=== PATIENT | male | born 1960 | race Caucasian/White ===

== ENCOUNTER 2019-12-08 11:10 | Outpatient (CLI) | payer BC, SELFPAY ==
[2019-12-08 11:33] LABS: Basophils Percent Auto 0.7 % (0.2-1.2); Eosinophils Absolute Auto 0.3 K/mm3 (0-0.3); Eosinophils Percent Auto 6.5 % (0-4.4); Hematocrit 45.1 % (42.0-52.0); Hemoglobin 14.1 g/dL (14.0-18.0); Immature Granulocyte Absolute 0.01 K/mm3 (0.00-0.031); Immature Granulocyte Percent A 0.2 % (0-0.5); Lymphocytes Percent Auto 23.9 % (18.3-44.2); Mean Corpuscular HGB Conc 31.3 g/dl (32-36); Mean Corpuscular Hemoglobin 30.1 pg (26-34); Mean Corpuscular Volume 96.2 fl (80-100); Mean Platelet Volume 9.9 fl (7.4-10.4); Monocytes Absolute Auto 0.4 K/mm3 (0.1-0.6); Monocytes Percent Auto 9.3 % (2.6-8.5); Neutrophils Absolute Auto 2.7 K/mm3 (1.3-6.7); Neutrophils Percent Auto 59.4 % (45.5-73.1); Platelet Count Result 164 k/mm3 (150-375); Red Blood Count 4.69 M/mm3 (4.6-6.20); Red Cell Distribution Width 13.2 % (11.5-14.5); White Blood Count 4.6 K/mm3 (4.5-10.0)
[2019-12-08 11:48] LABS: Alanine Aminotransferase 20 U/L (4-50); Alkaline Phosphatase 111 U/L (38-126); Aspartate Amino Transferase 29 U/L (17-59); Bilirubin,Total 0.4 mg/dL (0.2-1.3); Blood Urea Nitrogen 12 mg/dL (9-20); Calcium 8.5 mg/dL (8.4-10.2); Carbon Dioxide 32 mmol/L (22-30); Chloride 106 mmol/L (98-107); Cholesterol 117 mg/dL (0-200); Estimated Glomerular Filt Rate > 60; Glucose 79 mg/dL (75-110); HDL Direct 38 mg/dL; Potassium 3.9 mmol/L (3.4-5.0); Sodium 144 mmol/L (137-145); Triglycerides 60 mg/dL (<150)
[2019-12-08 11:59] LABS: LDL Cholesterol Direct 61 mg/dL
[2019-12-12 21:15] LABS: Red Blood Cell Folate 546 ng/mL RBC (>280)
== END 2019-12-08 11:11 | disposition home or self-care (01) ==
PROVIDERS: PCP Internal Medicine; Visit Provider Internal Medicine
DX: E53.8 Deficiency of other specified B group vitamins (principal); Z79.899 Other long term (current) drug therapy
CPT/HCPCS: 36415; 80048; 80061; 80076; 82607; 82747; 85025

== ENCOUNTER 2019-12-19 12:39 | Outpatient (CLI) | payer BC, SELFPAY ==
--- NOTE | ~2019-12-19 | CT_ITS ---
EXAMINATION: CTA chest PE protocol EXAM DATE: 12/19/2019 13:11 INDICATION: Hemoptysis. TECHNIQUE: Spiral CTA of the chest (pulmonary arteries) was performed with 100 cc Omnipaque 350 intr avenous contrast injection. Images were acquired during the pulmonary arterial phase. Coronal maxi mum intensity projection 3D-reconstructions were created by the technologist on dedicated workstation . Axial, coronal and sagittal reformatted images were reviewed. The dose-length product (DLP) for t his examination was 358.26 mGy-cm. The exposure was tailored according to patient size (auto mA exp osure control), and iterative reconstruction (ASIR) was used as additional dose reduction technique. Comparison is made to prior examination from 04/25/2019. FINDINGS: Development of right infrahilar, right middle lobe mass measuring 2.1 x 3.1 cm, occluding the right middle lobe bronchi. Right middle lobe is still aerated. Most likely primary lung cancer. R ecommend pulmonary consult. There is mild to moderate emphysema. No thoracic aortic dissection. Ther e are no pleural or pericardial effusions. Tracheobronchial tree is patent. There is no mediastin al, hilar or axillary lymphadenopathy. There is no pneumothorax. Heart normal in size. There is mild coronary arterial calcification, arterial sclerosis. There is gastric bypass. There are spleni c and liver granulomas. There is right renal fluid density lesion likely cyst measuring 3 cm. There is mild thoracic spondylosis without osteoblastic or osteolytic lesions identified. Spine stimulator device, leads at the midthoracic level. IMPRESSION: 1. Right infrahilar right middle lobe mass, most likely primary lung cancer. Recommend pulmonary co nsult. 2. Mild to moderate emphysema. 3. No pulmonary emboli. STAT hold and call. I confirmed with Fany that patient is in waiting room, and who is notifying ord ering doctor of results. Patient will be given instructions at that time. Reviewed, dictated and finalized at location A. IMPRESSION: 1. Right infrahilar right middle lobe mass, most likely primary lung cancer. Recommend pulmonary consult. 2. Mild to moderate emphysema. 3. No pulmonary emboli. STAT hold and call. I confirmed with Fany that patient is in waiting room, an d who is notifying ordering doctor of results. Patient will be given instructio ns at that time.
== END 2019-12-19 12:40 | disposition home or self-care (01) ==
LOC: ANHIMG 12:46
PROVIDERS: PCP Internal Medicine; Visit Provider Internal Medicine
DX: R04.2 Hemoptysis (principal); J43.9 Emphysema, unspecified; R91.8 Other nonspecific abnormal finding of lung field
CPT/HCPCS: 71275; Q9967

== ENCOUNTER 2019-12-25 13:11 | Outpatient (CLI) | payer BC, SELFPAY ==
[2019-12-25 13:21] LABS: Hematocrit 47.7 % (42.0-52.0); Hemoglobin 15.1 g/dL (14.0-18.0); Mean Corpuscular HGB Conc 31.7 g/dl (32-36); Mean Corpuscular Hemoglobin 30.2 pg (26-34); Mean Corpuscular Volume 95.4 fl (80-100); Mean Platelet Volume 9.9 fl (7.4-10.4); Platelet Count Result 165 k/mm3 (150-375); Red Cell Distribution Width 13.3 % (11.5-14.5); White Blood Count 7.1 K/mm3 (4.5-10.0)
[2019-12-25 16:33] LABS: Iron 59 ug/dL (49-181)
[2019-12-25 16:42] LABS: Percent Iron Saturation 17 % (20-50)
== END 2019-12-25 13:12 | disposition home or self-care (01) ==
PROVIDERS: PCP Internal Medicine; Visit Provider Internal Medicine Hematology & Oncology
DX: E61.1 Iron deficiency (principal)
CPT/HCPCS: 36415; 82728; 83540; 83550; 85027

== ENCOUNTER 2019-12-26 13:21 | Outpatient (CLI) | payer BC, SELFPAY ==
--- NOTE | ~2019-12-26 | PE_ITS ---
EXAMINATION: PET skull to mid thigh DATE: 12/26/2019 15:50 INDICATION: Malignant neoplasm of lung. TECHNIQUE: Blood glucose level was 84 mg/dL. 10.076 mCi of 18-fluorodeoxyglucose (18-FDG) was adminis tered i.v. Low dose computed tomography (CT) images were acquired from the base of the brain to the p roximal thighs for attenuation correction and anatomic localization. Automated exposure control was e mployed. Dose-length product (DLP) was 634 mGy-cm. Positron emission tomography (PET) images were acq uired in the same distribution. COMPARISON: Chest CT 12/19/2019, left hip CT 10/12/2019 FINDINGS: Head/neck: There is increased activity in the oral cavity, oropharynx, and glottis without CT correla te, likely physiologic. There are no pathologically enlarged lymph nodes. Chest: There is mild emphysema. A calcified left lung nodule and calcified left hilar and mediastinal lymph nodes are consistent with old granulomatous disease. There are areas of mild scarring bilatera lly with subpleural bands. There is mild atelectasis bilaterally. In the right middle lobe, there is a 2.2 cm nodule with maximal SUV of 9.2. No pleural effusion. The heart size is normal. No pericardia l effusion. There are coronary artery calcifications. There are no pathologically enlarged lymph node s. Abdomen/pelvis/proximal thighs: Calcifications in the liver and spleen are consistent with old granul omatous disease. There are changes of cholecystectomy. There are surgical changes of the stomach. The pancreas, adrenal glands, and left kidney are normal. There is a 3.0 cm cyst in right kidney. There are no dilated loops of bowel. The prostate is mildly enlarged. There are no pathologically enlarged lymph nodes. There is no free intraperitoneal fluid. There are changes of anterior and posterior fusi on procedures in lumbar spine. There is no osseous malignancy. There is a chronic subcutaneous hemato ma in the left buttock measuring 9.2 x 3.6 cm with peripheral increased activity, consistent with inf lammation, decreased from 12.8 x 5.5 cm on 10/13/2019. IMPRESSION: 1. 2.2 cm nodule with maximum SUV of 9.2 in right lung middle lobe, consistent with primary bronchoge carolann carcinoma. Reviewed, dictated and finalized at location A. IMPRESSION: 1. 2.2 cm nodule with maximum SUV of 9.2 in right lung middle lobe, consistent with primary bronchogenic carcinoma.
[2019-12-26 14:13] LABS: Glucose Point of Care 84 (65-105)
== END 2019-12-26 13:22 | disposition home or self-care (01) ==
PROVIDERS: PCP Internal Medicine; Visit Provider Internal Medicine
DX: C34.90 Malignant neoplasm of unspecified part of unspecified bronchus or lung (principal)
CPT/HCPCS: 78815; A9552

== ENCOUNTER 2019-12-30 09:45 | Outpatient (CLI) | payer BC, SELFPAY | END 2019-12-30 09:46 | disposition home or self-care (01) | PROVIDERS: PCP Internal Medicine; Visit Provider Internal Medicine Critical Care Medicine | DX: R04.2 Hemoptysis (principal) | CPT/HCPCS: 87015; 87102; 87106; 87116; 87205; 87206 ==

== ENCOUNTER 2019-12-31 10:41 | Outpatient (CLI) | payer BC, SELFPAY | END 2019-12-31 10:42 | disposition home or self-care (01) | PROVIDERS: PCP Internal Medicine; Visit Provider Internal Medicine Critical Care Medicine | DX: R04.2 Hemoptysis (principal) | CPT/HCPCS: 87015; 87116; 87206 ==

== ENCOUNTER 2020-01-02 14:02 | Outpatient (RCR) | payer BC, SELFPAY | END 2020-04-01 23:59 | disposition home or self-care (01) | LOC: ANHLAB 14:02 | PROVIDERS: PCP Internal Medicine; Visit Provider Internal Medicine Critical Care Medicine | DX: J44.9 Chronic obstructive pulmonary disease, unspecified (principal) | CPT/HCPCS: 87070; 87205 ==

== ENCOUNTER 2020-01-22 06:51 | Outpatient (CLI) | payer BC, SELFPAY ==
--- NOTE | 2020-01-22 | EST_ITS ---
Patient Info Name: Kiran Smith Age: 59 years : 1960 Gender: Male Ht: 68 in Wt: 180 lbs BSA: 2.00 m2 Exam Date: 01/22/2020 8:26 AM Exam Location: [facility] Stress Patient Status: Outpatient Admit Date: 01/22/2020 Staff Ordering Physician: Vickey Hernandez MD Attending Provider: Vickey Hernandez MD Exercise Technologist: Lakshmi Escalera RDCS Exercise Physician: Victor Manuel Mackay DO Exam Type: CA stress demarcus w NM Study Info Indications Z01.818 - Encounter for other preprocedural examination R06.02 - Shortness of breath A regadenoson stress test was performed. Summary 1. 1. Negative Lexiscan stress test for ischemic ST changes by ECG criteria. 2. 2. Stable hemodynamics throughout the test. 3. 3. Nuclear scan to follow and will be reported separately. Please correlate with it. 4. 4. Patient informed of the above results. Protocol: Lexiscan Stress ECG Details Stage: REST Duration (min): 4 min : 27 sec HR (bpm): 56 SBP (mmHg): 108 DBP (mmHg): 69 Stage: REST Duration (min): 9 min : 7 sec HR (bpm): 56 SBP (mmHg): 108 DBP (mmHg): 69 Stage: STAGE 1 Duration (min): 1 min : 0 sec HR (bpm): 66 SBP (mmHg): 120 DBP (mmHg): 79 Stage: RECOVERY Duration (min): 1 min : 0 sec HR (bpm): 84 SBP (mmHg): 114 DBP (mmHg): 65 Stage: RECOVERY Duration (min): 2 min : 0 sec HR (bpm): 82 SBP (mmHg): 114 DBP (mmHg): 65 Stage: RECOVERY Duration (min): 3 min : 0 sec HR (bpm): 75 SBP (mmHg): 119 DBP (mmHg): 70 Stage: RECOVERY Duration (min): 3 min : 4 sec HR (bpm): 74 SBP (mmHg): 119 DBP (mmHg): 70 Rest HR: 56 bpm Peak HR: 87 bpm Rest Sys BP: 108 mmHg Peak Sys BP: 120 mmHg Max Pred HR: 160 bpm % Max Pred HR: 54 % Target HR: 136 bpm Max RPP: 10,440 bpm*mmHg Termination Reason: Completed protocol Cardiac Symptoms: Shortness of breath Total Time: 1 min : 0 sec Rest [place] BP: 69 mmHg Peak [place] BP: 79 mmHg Total Dose: 0.4 mg Resting ECG Sinus bradycardia. Stress ECG No ST changes. Arrhythmias None. Report Signatures
--- NOTE | ~2020-01-22 | NM_ITS ---
EXAMINATION: NM demarcus stress w perfusion DATE: 01/22/2020 09:39 INDICATION: COPD presenting with shortness of breath. TECHNIQUE: Rest images were obtained following intravenous administration of 10.56 mCi Tc99m tetrofos min (Myoview). The patient was infused intravenously with Lexiscan (Regadenoson). Then, 21.3 mCi Tc99 m tetrofosmin (Myoview) was administered intravenously, and stress images were obtained. Data was rec onstructed into short axis and horizontal and vertical long axis SPECT images. Gated SPECT images wer e also obtained. COMPARISON: None. FINDINGS: There is no definite reversible or fixed perfusion abnormality to suggest ischemia or infar ction. There is normal left ventricular chamber size, wall motion and ejection fraction. Left ventr icular ejection fraction measures 68%. IMPRESSION: 1. Normal myocardial perfusion at rest and during stress. 2. Left ventricular ejection fraction measuring 68%. Reviewed, dictated and finalized at location A.
== END 2020-01-22 06:52 | disposition home or self-care (01) ==
PROVIDERS: PCP Internal Medicine; Visit Provider Internal Medicine
DX: Z01.818 Encounter for other preprocedural examination (principal); R06.02 Shortness of breath
CPT/HCPCS: 78452; 93017; A9502; J2785

== ENCOUNTER 2020-02-20 14:08 | Outpatient (CLI) | payer BC, SELFPAY ==
[2020-02-20 14:22] LABS: Basophils Absolute Auto 0.1 K/mm3 (0.0-0.1); Basophils Percent Auto 0.7 % (0.2-1.2); Eosinophils Absolute Auto 0.3 K/mm3 (0-0.3); Eosinophils Percent Auto 4.5 % (0-4.4); Hematocrit 41.7 % (42.0-52.0); Immature Granulocyte Absolute 0.02 K/mm3 (0.00-0.031); Immature Granulocyte Percent A 0.3 % (0-0.5); Lymphocytes Absolute Auto 1.09 K/mm3 (0.9-3.2); Lymphocytes Percent Auto 15.5 % (18.3-44.2); Mean Corpuscular HGB Conc 31.2 g/dl (32-36); Mean Corpuscular Hemoglobin 28.4 pg (26-34); Mean Corpuscular Volume 91.2 fl (80-100); Mean Platelet Volume 9.4 fl (7.4-10.4); Monocytes Absolute Auto 0.8 K/mm3 (0.1-0.6); Monocytes Percent Auto 11.2 % (2.6-8.5); Neutrophils Absolute Auto 4.8 K/mm3 (1.3-6.7); Neutrophils Percent Auto 67.8 % (45.5-73.1); Platelet Count Result 296 k/mm3 (150-375); Red Blood Count 4.57 M/mm3 (4.6-6.20); Red Cell Distribution Width 13.2 % (11.5-14.5); White Blood Count 7.1 K/mm3 (4.5-10.0)
[2020-02-20 14:26] LABS: Blood Urea Nitrogen 13 mg/dL (8-26); Carbon Dioxide 28 mmol/L (22-30); Chloride 102 mmol/L (98-109); Estimated Glomerular Filt Rate > 60; Glucose 96 mg/dL (70-105); Potassium 3.8 mmol/L (3.5-4.9); Sodium 140 mmol/L (138-146)
[2020-02-20 16:31] LABS: Alanine Aminotransferase 12 U/L (4-50); Alkaline Phosphatase 122 U/L (38-126); Aspartate Amino Transferase 29 U/L (17-59); Bilirubin,Total 0.6 mg/dL (0.2-1.3); Blood Urea Nitrogen 15 mg/dL (9-20); Calcium 9.1 mg/dL (8.4-10.2); Carbon Dioxide 30 mmol/L (22-30); Chloride 101 mmol/L (98-107); Estimated Glomerular Filt Rate > 60; Glucose 94 mg/dL (75-110); Potassium 4.1 mmol/L (3.4-5.0); Sodium 137 mmol/L (137-145)
== END 2020-02-20 14:09 | disposition home or self-care (01) ==
LOC: ANHLAB 14:09
PROVIDERS: PCP Internal Medicine; Visit Provider Internal Medicine Hematology & Oncology
DX: E61.1 Iron deficiency (principal)
CPT/HCPCS: 36415; 80048; 80053; 85025

== ENCOUNTER 2020-04-22 10:15 | Outpatient (CLI) | payer BC, MEDICAID, SELFPAY ==
[2020-04-22 10:59] LABS: Basophils Absolute Auto 0.1 K/mm3 (0.0-0.1); Basophils Percent Auto 0.7 % (0.2-1.2); Eosinophils Absolute Auto 0.5 K/mm3 (0-0.3); Eosinophils Percent Auto 6.7 % (0-4.4); Hematocrit 41.4 % (42.0-52.0); Hemoglobin 13.2 g/dL (14.0-18.0); Immature Granulocyte Absolute 0.02 K/mm3 (0.00-0.031); Immature Granulocyte Percent A 0.3 % (0-0.5); Lymphocytes Absolute Auto 1.08 K/mm3 (0.9-3.2); Mean Corpuscular HGB Conc 31.9 g/dl (32-36); Mean Corpuscular Volume 87.7 fl (80-100); Mean Platelet Volume 10.2 fl (7.4-10.4); Monocytes Absolute Auto 0.5 K/mm3 (0.1-0.6); Neutrophils Absolute Auto 4.6 K/mm3 (1.3-6.7); Neutrophils Percent Auto 68.3 % (45.5-73.1); Platelet Count Result 196 k/mm3 (150-375); Red Blood Count 4.72 M/mm3 (4.6-6.20); Red Cell Distribution Width 18.1 % (11.5-14.5); White Blood Count 6.8 K/mm3 (4.5-10.0)
[2020-04-22 11:18] LABS: Alanine Aminotransferase 20 U/L (4-50); Albumin Level 3.7 g/dL (3.5-5.1); Alkaline Phosphatase 127 U/L (38-126); Aspartate Amino Transferase 30 U/L (17-59); Bilirubin,Total 0.3 mg/dL (0.2-1.3); Blood Urea Nitrogen 12 mg/dL (9-20); Calcium 8.6 mg/dL (8.4-10.2); Carbon Dioxide 28 mmol/L (22-30); Chloride 104 mmol/L (98-107); Cholesterol 126 mg/dL (0-200); Estimated Glomerular Filt Rate > 60; Glucose 94 mg/dL (75-110); HDL Direct 38 mg/dL; Potassium 3.8 mmol/L (3.4-5.0); Sodium 139 mmol/L (137-145); Triglycerides 84 mg/dL (<150)
[2020-04-22 11:29] LABS: LDL Cholesterol Direct 57 mg/dL
[2020-04-22 11:53] LABS: Free T4 Free Thyroxine 0.69 ng/mL (0.78-2.19)
== END 2020-04-22 10:16 | disposition home or self-care (01) ==
PROVIDERS: PCP Internal Medicine; Visit Provider Internal Medicine
DX: Z79.899 Other long term (current) drug therapy (principal); E78.2 Mixed hyperlipidemia
CPT/HCPCS: 36415; 80053; 80061; 84439; 84443; 85025

== ENCOUNTER 2020-04-23 10:09 | Outpatient (CLI) | payer BC, MEDICAID, SELFPAY ==
--- NOTE | ~2020-04-23 | CT_ITS ---
EXAMINATION: CT chest w con DATE: 04/23/2020 11:09 INDICATION: Non-small cell lung cancer TECHNIQUE: Transaxial computed tomographic images of the chest were obtained after the administration of 75 cc of Omnipaque 350 intravenous contrast. The dose-length product (DLP) was 201.49 mGy-cm. Ite rative reconstruction was used. COMPARISON: 12/26/2019, 12/19/2019 FINDINGS: There has been interval resection of the previously described right middle lobe nodule. The re is mild emphysema. No new or suspicious pulmonary nodule is identified. Calcified pulmonary nodule s and calcified bilateral hilar lymph nodes are consistent with old granulomatous disease. A small ri ght pleural effusion is present. There is no pneumothorax. The heart size is normal. No pathologicall y enlarged thoracic lymph nodes are identified. Surgical changes in the stomach are likely related to gastric bypass. There is a partially imaged 2.5 cm cyst of the right kidney upper pole. Punctate aliza cifications in an otherwise normal spleen likely represent healed granulomatous disease. Calcified co ronary artery atherosclerosis is noted. Neurostimulator leads end in the central spinal canal of the midthoracic spine. IMPRESSION: 1. Changes of interval right middle lobe mass resection without new or suspicious pulmonary nodule id entified. Reviewed, dictated and finalized at location A. IMPRESSION: 1. Changes of interval right middle lobe mass resection without new or suspicio us pulmonary nodule identified.
== END 2020-04-23 10:10 | disposition home or self-care (01) ==
PROVIDERS: PCP Internal Medicine; Visit Provider Internal Medicine Hematology & Oncology
DX: C34.91 Malignant neoplasm of unspecified part of right bronchus or lung (principal)
CPT/HCPCS: 71260; Q9967

== ENCOUNTER 2020-04-30 11:12 | Outpatient (CLI) | payer BC, MEDICAID, SELFPAY ==
[2020-04-30 11:32] LABS: Basophils Absolute Auto 0.1 K/mm3 (0.0-0.1); Eosinophils Absolute Auto 0.3 K/mm3 (0-0.3); Eosinophils Percent Auto 4.9 % (0-4.4); Hematocrit 45.5 % (42.0-52.0); Hemoglobin 14.3 g/dL (14.0-18.0); Immature Granulocyte Absolute 0.03 K/mm3 (0.00-0.031); Immature Granulocyte Percent A 0.5 % (0-0.5); Lymphocytes Absolute Auto 1.35 K/mm3 (0.9-3.2); Lymphocytes Percent Auto 21.5 % (18.3-44.2); Mean Corpuscular HGB Conc 31.4 g/dl (32-36); Mean Corpuscular Hemoglobin 27.8 pg (26-34); Mean Corpuscular Volume 88.3 fl (80-100); Mean Platelet Volume 9.6 fl (7.4-10.4); Monocytes Absolute Auto 0.5 K/mm3 (0.1-0.6); Monocytes Percent Auto 8.3 % (2.6-8.5); Neutrophils Percent Auto 63.8 % (45.5-73.1); Platelet Count Result 203 k/mm3 (150-375); Red Blood Count 5.15 M/mm3 (4.6-6.20); Red Cell Distribution Width 19.1 % (11.5-14.5); White Blood Count 6.3 K/mm3 (4.5-10.0)
[2020-04-30 11:35] LABS: Blood Urea Nitrogen 15 mg/dL (8-26); Carbon Dioxide 28 mmol/L (22-30); Chloride 102 mmol/L (98-109); Estimated Glomerular Filt Rate > 60; Glucose 92 mg/dL (70-105); Potassium 4.2 mmol/L (3.5-4.9); Sodium 144 mmol/L (138-146)
== END 2020-04-30 11:13 | disposition home or self-care (01) ==
PROVIDERS: PCP Internal Medicine; Visit Provider Internal Medicine Hematology & Oncology
DX: C34.91 Malignant neoplasm of unspecified part of right bronchus or lung (principal); R53.83 Other fatigue
CPT/HCPCS: 36415; 80048; 84443; 85025

== ENCOUNTER 2020-05-09 11:22 | Outpatient (CLI) | payer BC, MEDICAID, SELFPAY ==
--- NOTE | ~2020-05-09 | MM_ITS ---
EXAMINATION: MM diagnostic mammo unilat RT HISTORY: Right breast pain. History of lung cancer. TECHNIQUE: Additional 3-D tomosynthesis images of the right breast were performed and synthetic 2-D i mages were generated. Comparison left MLO view performed. CAD analysis was submitted and interpreted. COMPARISON: None BREAST PARENCHYMAL COMPOSITION: Breast composed of scattered areas of fibroglandular density. FINDINGS: There is bilateral symmetric gynecomastia. No suspicious masses, calcifications or architec tural distortion to suggest malignancy. IMPRESSION: 1. No mammographic evidence for malignancy. Bilateral symmetric gynecomastia. BI-RADS CATEGORY 2 - BENIGN FINDINGS Reviewed, dictated and finalized at location A.
== END 2020-05-09 11:23 | disposition home or self-care (01) ==
PROVIDERS: PCP Internal Medicine; Visit Provider Internal Medicine
DX: N64.4 Mastodynia (principal)
CPT/HCPCS: 77065

== ENCOUNTER 2020-07-30 09:48 | Outpatient (CLI) | payer BC, MEDICAID, SELFPAY ==
--- NOTE | ~2020-07-30 | CT_ITS ---
EXAMINATION: CT chest w con DATE: 07/30/2020 10:28 INDICATION: Non-small cell lung cancer TECHNIQUE: Computed tomography (CT) of the chest was performed with 75 cc intravenous contrast. The d ose-length product was 298.51 mGy-cm. Automated exposure control and iterative reconstruction [place] were employed. COMPARISON: 04/23/2020 FINDINGS: Heart size is normal. There are changes of partial right pneumonectomy. There is mild emphy sema. There is right pleural thickening unchanged. No thoracic lymphadenopathy. There are calcified g ranulomas of the spleen. There are gastric bypass changes. There is a right renal cyst. No new pulmon eden nodules or masses. There is atherosclerosis. There is a neurostimulator lead with the lead tips i n the mid thoracic spine. There is scarring of the right upper and lower lung. IMPRESSION: 1. No evidence for residual/recurrent malignancy. Status post partial right pneumonectomy. Reviewed, dictated and finalized at location A. IMPRESSION: 1. No evidence for residual/recurrent malignancy. Status post partial right pne umonectomy.
[2020-07-30 10:20] LABS: Estimated Glomerular Filt Rate > 60
== END 2020-07-30 09:49 | disposition home or self-care (01) ==
PROVIDERS: PCP Internal Medicine; Visit Provider Internal Medicine Hematology & Oncology
DX: C34.91 Malignant neoplasm of unspecified part of right bronchus or lung (principal)
CPT/HCPCS: 71260; Q9967

== ENCOUNTER 2020-08-06 11:04 | Outpatient (CLI) | payer BC, MEDICAID, SELFPAY ==
[2020-08-06 11:22] LABS: Basophils Absolute Auto 0.1 K/mm3 (0.0-0.1); Eosinophils Absolute Auto 0.4 K/mm3 (0-0.3); Eosinophils Percent Auto 7.1 % (0-4.4); Hematocrit 45.1 % (42.0-52.0); Hemoglobin 14.5 g/dL (14.0-18.0); Immature Granulocyte Absolute 0.01 K/mm3 (0.00-0.031); Immature Granulocyte Percent A 0.2 % (0-0.5); Lymphocytes Percent Auto 19.9 % (18.3-44.2); Mean Corpuscular HGB Conc 32.2 g/dl (32-36); Mean Corpuscular Hemoglobin 30.2 pg (26-34); Mean Platelet Volume 9.2 fl (7.4-10.4); Monocytes Absolute Auto 0.5 K/mm3 (0.1-0.6); Monocytes Percent Auto 8.6 % (2.6-8.5); Neutrophils Absolute Auto 3.8 K/mm3 (1.3-6.7); Neutrophils Percent Auto 63.2 % (45.5-73.1); Platelet Count Result 186 k/mm3 (150-375); Red Cell Distribution Width 12.6 % (11.5-14.5)
[2020-08-06 11:25] LABS: Blood Urea Nitrogen 13 mg/dL (8-26); Carbon Dioxide 28 mmol/L (22-30); Chloride 104 mmol/L (98-109); Estimated Glomerular Filt Rate > 60; Glucose 86 mg/dL (70-105); Potassium 4.2 mmol/L (3.5-4.9); Sodium 143 mmol/L (138-146)
[2020-08-06 12:06] LABS: Alanine Aminotransferase 27 U/L (4-50); Albumin Level 4.3 g/dL (3.5-5.1); Alkaline Phosphatase 110 U/L (38-126); Anion Gap 10 mmol/L (8-16); Aspartate Amino Transferase 32 U/L (17-59); Bilirubin,Total 0.5 mg/dL (0.2-1.3); Blood Urea Nitrogen 14 mg/dL (9-20); Calcium 9.2 mg/dL (8.4-10.2); Carbon Dioxide 30 mmol/L (22-30); Chloride 104 mmol/L (98-107); Estimated Glomerular Filt Rate > 60; Glucose 89 mg/dL (75-110); Potassium 4.4 mmol/L (3.4-5.0); Sodium 144 mmol/L (137-145)
== END 2020-08-06 11:05 | disposition home or self-care (01) ==
LOC: ANHLAB 11:06
PROVIDERS: PCP Internal Medicine; Visit Provider Internal Medicine Hematology & Oncology
DX: C34.91 Malignant neoplasm of unspecified part of right bronchus or lung (principal)
CPT/HCPCS: 36415; 80048; 80053; 85025

== ENCOUNTER 2020-10-23 11:04 | Outpatient (CLI) | payer BC, MEDICAID, SELFPAY ==
[2020-10-23 11:58] LABS: Cholesterol 183 mg/dL (0-200); HDL Direct 50 mg/dL; Triglycerides 130 mg/dL (<150)
[2020-10-23 12:09] LABS: LDL Cholesterol Direct 118 mg/dL
[2020-10-26 13:26] LABS: Vitamin D 1,25 (OH)2 Total 53 pg/mL (18-72); Vitamin D2 1,25 (OH)2 <8 pg/mL; Vitamin D3 1,25 (OH)2 53 pg/mL
== END 2020-10-23 11:05 | disposition home or self-care (01) ==
LOC: ANHLAB 11:06
PROVIDERS: PCP Internal Medicine; Visit Provider Internal Medicine
DX: E55.9 Vitamin D deficiency, unspecified (principal); Z79.899 Other long term (current) drug therapy
CPT/HCPCS: 36415; 80061; 82652; 83036; 84443

== ENCOUNTER 2021-02-04 09:40 | Outpatient (CLI) | payer BC, MEDICAID, SELFPAY ==
--- NOTE | ~2021-02-04 | CT_ITS ---
EXAMINATION: CT diagnostic chest w con DATE: 02/04/2021 10:07 INDICATION: Right lung cancer TECHNIQUE: Transaxial computed tomographic images of the chest were obtained after the administration of 75 cc of Omnipaque 350 intravenous contrast. The dose-length product (DLP) was 296.94 mGy-cm. Ite rative reconstruction was used. COMPARISON: 07/30/2020 FINDINGS: There are changes of right partial pneumonectomy. No suspicious mass or lung nodule is iden tified. There is a small right pleural effusion. No pneumothorax is identified. No pathologically enl arged thoracic lymph nodes are identified. The heart size is normal. Calcified coronary artery athero sclerosis is noted. Punctate calcifications in otherwise normal appearing liver and spleen likely rep resent healed granulomatous disease. Surgical changes in the stomach likely reflect gastric bypass. T here is a 3.5 cm cyst of the right kidney upper pole. Orphaned neurostimulator leads project in the m idthoracic spine. IMPRESSION: 1. Changes of partial right pneumonectomy without new or suspicious findings. Reviewed, dictated and finalized at location A.
[2021-02-04 16:28] LABS: Estimated Glomerular Filt Rate > 60
== END 2021-02-04 09:41 | disposition home or self-care (01) ==
PROVIDERS: PCP Internal Medicine; Visit Provider Internal Medicine Hematology & Oncology
DX: C34.91 Malignant neoplasm of unspecified part of right bronchus or lung (principal)
CPT/HCPCS: 71260; Q9967

== ENCOUNTER 2021-02-11 10:58 | Outpatient (CLI) | payer BC, MEDICAID, SELFPAY ==
[2021-02-11 11:20] LABS: Basophils Percent Auto 0.4 % (0.2-1.2); Eosinophils Absolute Auto 0.3 K/mm3 (0-0.3); Eosinophils Percent Auto 3.7 % (0-4.4); Hemoglobin 14.4 g/dL (14.0-18.0); Immature Granulocyte Absolute 0.02 K/mm3 (0.00-0.031); Immature Granulocyte Percent A 0.3 % (0-0.5); Lymphocytes Percent Auto 14.6 % (18.3-44.2); Mean Corpuscular HGB Conc 32.7 g/dl (32-36); Mean Corpuscular Hemoglobin 29.9 pg (26-34); Mean Corpuscular Volume 91.3 fl (80-100); Mean Platelet Volume 9.2 fl (7.4-10.4); Monocytes Absolute Auto 0.4 K/mm3 (0.1-0.6); Monocytes Percent Auto 5.7 % (2.6-8.5); Neutrophils Absolute Auto 5.2 K/mm3 (1.3-6.7); Neutrophils Percent Auto 75.3 % (45.5-73.1); Platelet Count Result 189 k/mm3 (150-375); Red Blood Count 4.82 M/mm3 (4.6-6.20); Red Cell Distribution Width 13.9 % (11.5-14.5); White Blood Count 6.8 K/mm3 (4.5-10.0)
[2021-02-11 12:52] LABS: Alanine Aminotransferase 17 U/L (4-50); Albumin Level 4.1 g/dL (3.5-5.1); Alkaline Phosphatase 96 U/L (38-126); Anion Gap 8 mmol/L (8-16); Aspartate Amino Transferase 35 U/L (17-59); Bilirubin,Total 0.5 mg/dL (0.2-1.3); Blood Urea Nitrogen 19 mg/dL (9-20); Calcium 9.1 mg/dL (8.4-10.2); Carbon Dioxide 25 mmol/L (22-30); Chloride 108 mmol/L (98-107); Estimated Glomerular Filt Rate > 60; Glucose 136 mg/dL (75-110); Potassium 3.8 mmol/L (3.4-5.0); Sodium 141 mmol/L (137-145)
== END 2021-02-11 10:59 | disposition home or self-care (01) ==
LOC: ANHLAB 11:01
PROVIDERS: PCP Internal Medicine; Visit Provider Internal Medicine Hematology & Oncology
DX: C34.91 Malignant neoplasm of unspecified part of right bronchus or lung (principal)
CPT/HCPCS: 36415; 80053; 85025

== ENCOUNTER 2021-06-16 10:44 | Outpatient (CLI) | payer MEDICARE, SELFPAY ==
[2021-06-16 11:10] LABS: Basophils Absolute Auto 0.1 K/mm3 (0.0-0.1); Basophils Percent Auto 0.4 % (0.2-1.2); Eosinophils Absolute Auto 0.2 K/mm3 (0-0.3); Eosinophils Percent Auto 2.1 % (0-4.4); Hematocrit 42.8 % (42.0-52.0); Hemoglobin 13.3 g/dL (14.0-18.0); Immature Granulocyte Absolute 0.04 K/mm3 (0.00-0.031); Immature Granulocyte Percent A 0.3 % (0-0.5); Lymphocytes Absolute Auto 0.89 K/mm3 (0.9-3.2); Lymphocytes Percent Auto 7.7 % (18.3-44.2); Mean Corpuscular HGB Conc 31.1 g/dl (32-36); Mean Corpuscular Hemoglobin 29.6 pg (26-34); Mean Corpuscular Volume 95.3 fl (80-100); Mean Platelet Volume 9.5 fl (7.4-10.4); Monocytes Absolute Auto 0.7 K/mm3 (0.1-0.6); Monocytes Percent Auto 6.2 % (2.6-8.5); Neutrophils Absolute Auto 9.6 K/mm3 (1.3-6.7); Neutrophils Percent Auto 83.3 % (45.5-73.1); Platelet Count Result 209 k/mm3 (150-375); Red Blood Count 4.49 M/mm3 (4.6-6.20); Red Cell Distribution Width 13.6 % (11.5-14.5); White Blood Count 11.5 K/mm3 (4.5-10.0)
[2021-06-16 11:22] LABS: Anion Gap 9 mmol/L (8-16); Blood Urea Nitrogen 16 mg/dL (9-20); Calcium 8.7 mg/dL (8.4-10.2); Carbon Dioxide 27 mmol/L (22-30); Chloride 105 mmol/L (98-107); Cholesterol 141 mg/dL (0-200); Estimated Glomerular Filt Rate > 60; Glucose 69 mg/dL (65-110); HDL Direct 52 mg/dL; Potassium 4.5 mmol/L (3.4-5.0); Sodium 141 mmol/L (137-145); Triglycerides 93 mg/dL (<150)
[2021-06-16 11:23] LABS: Hemoglobin A1C 5.1 % (<5.7)
[2021-06-16 11:33] LABS: LDL Cholesterol Direct 59 mg/dL
[2021-06-16 11:50] LABS: Iron 80 ug/dL (49-181)
[2021-06-16 11:59] LABS: Percent Iron Saturation 22 % (20-50)
== END 2021-06-16 10:45 | disposition home or self-care (01) ==
PROVIDERS: PCP Internal Medicine; Visit Provider Internal Medicine
DX: E53.8 Deficiency of other specified B group vitamins (principal); D50.9 Iron deficiency anemia, unspecified; Z51.81 Encounter for therapeutic drug level monitoring; Z79.899 Other long term (current) drug therapy
CPT/HCPCS: 36415; 80048; 80061; 82607; 82728; 82746; 83036; 83540; 83550; 85025

== ENCOUNTER 2021-06-17 12:34 | Outpatient (CLI) | payer MEDICARE, MEDICAID, SELFPAY ==
--- NOTE | 2021-06-17 16:46 | WPDSIXMINUTE ---
Six Minute Walk Procedure Procedure Performed Pulmonary Stress Test (6 min walk) Six Minute Walk This is a 6 minute walk test. The test was performed and interpreted in accordance with the 2014 ERS/ATS task force guidelines. Findings: The patient's resting room air oxygen saturation measured by pulse oximetry was 94% and her heart rate was 72 bpm. Patient ambulated for 274 meters and oxygen saturation remained 93 to 95%. Heart rate at the end of the study was 85 bpm. The patient did not qualify for supplemental oxygen at rest or with ambulation. There are no prior studies for comparison.
--- NOTE | 2021-06-17 16:47 | WPDPFTINT ---
PFT Procedure Performed PFT Procedure Performed Spirometry with Pre/Post Bronchodilator Plethysmography (Lung Vol) Diffusing Cap (DLCO) Flow Vol Loop PFT Interpretation This is a pulmonary function test with pre and post-bronchodilator spirometry, plethysmography and diffusing capacity. The test was performed and results interpreted in accordance with the 2019 and 2005 ATS/ERS Task Force guidelines respectively using the Global Lung Function Initiative-2012 reference equations. Patient demonstrated good effort and cooperation. Reproducibility criteria were met. The quality of the pre bronchodilator spirometry maneuver was Grade A and post bronchodilator spirometry maneuver was Grade A. Findings: Spirometry: there is decreased maximal expiratory airflow at all lung volumes with concave expiratory flow tracing. The contour of the inspiratory flow tracing is normal. The pre bronchodilator FVC is 3.31 L, 75% predicted. The pre bronchodilator FEV1 is 1.71 L, 50% predicted. The FEV1: FVC ratio is 52%. The post bronchodilator FVC is 3.44 L, representing a 4% increase. The post bronchodilator FEV1 is 1.79 L, representing a 5% increase. Plethysmography: The total lung capacity is 5.86 L, 86% predicted. The functional residual capacity is 3.47 L, 98% predicted. The residual volume is 2.56 L, 115% predicted. Diffusion capacity: The absolute diffusion capacity is 14.6, 53% predicted. The diffusing capacity corrected for alveolar volume is 3.41, 80% predicted. Impression: There is a moderately severe obstructive abnormality without significant improvement after inhaling a single dose of albuterol. The lung volumes are normal. The absolute diffusing capacity is moderately decreased and normalizes when corrected for alveolar volume. There are no prior studies for comparison
== END 2021-06-17 12:35 | disposition home or self-care (01) ==
PROVIDERS: PCP Internal Medicine; Visit Provider Internal Medicine
DX: J44.9 Chronic obstructive pulmonary disease, unspecified (principal); R06.00 Dyspnea, unspecified; R94.2 Abnormal results of pulmonary function studies
CPT/HCPCS: 94060; 94618; 94726; 94729

== ENCOUNTER 2021-06-27 09:37 | Outpatient (CLI) | payer MEDICARE, MEDICAID, SELFPAY ==
--- NOTE | ~2021-06-27 | CT_ITS ---
EXAMINATION: CT chest high resolution wo co DATE: 06/27/2021 09:56 INDICATION: Dyspnea. Occasional shortness of breath. History of lung cancer. TECHNIQUE: Computed tomography (CT) of the chest was performed without intravenous contrast. The dose -length product was 361.01 mGy-cm. Automated exposure control and iterative reconstruction technique were employed. COMPARISON: CT dated 02/04/2021 and 07/30/2020 FINDINGS: Status post partial right pneumonectomy. There is emphysema. There are scattered areas of s carring in the right upper and lower lung. No pneumothorax. No endobronchial lesions. Calcified granu edith left upper lung. There are scattered calcified granulomas in the liver and spleen. Thyroid gland is unremarkable. No thoracic lymphadenopathy. There are postoperative changes consistent with gastri c bypass surgery. There is residual segment of neurostimulator lead in the mid thoracic spine. No nanci dence for aortic aneurysm or dissection. No central pulmonary embolism. Heart size is normal. There i s a right renal cyst. IMPRESSION: 1. No evidence for residual/recurrent malignancy. Status post partial right pneumonectomy. Reviewed, dictated and finalized at location A. IMPRESSION: 1. No evidence for residual/recurrent malignancy. Status post partial right pne umonectomy.
== END 2021-06-27 09:38 | disposition home or self-care (01) ==
LOC: ANHIMG 09:42
PROVIDERS: PCP Internal Medicine; Visit Provider Internal Medicine
DX: J44.9 Chronic obstructive pulmonary disease, unspecified (principal); R06.00 Dyspnea, unspecified
CPT/HCPCS: 71250

== ENCOUNTER 2021-08-11 10:50 | Outpatient (CLI) | payer MEDICARE, SELFPAY ==
[2021-08-11 11:09] LABS: Basophils Percent Auto 0.7 % (0.2-1.2); Eosinophils Absolute Auto 0.2 K/mm3 (0-0.3); Eosinophils Percent Auto 3.6 % (0-4.4); Hematocrit 45.4 % (42.0-52.0); Hemoglobin 14.3 g/dL (14.0-18.0); Immature Granulocyte Absolute 0.02 K/mm3 (0.00-0.031); Immature Granulocyte Percent A 0.3 % (0-0.5); Lymphocytes Absolute Auto 0.93 K/mm3 (0.9-3.2); Lymphocytes Percent Auto 15.9 % (18.3-44.2); Mean Corpuscular HGB Conc 31.5 g/dl (32-36); Mean Corpuscular Hemoglobin 28.9 pg (26-34); Mean Corpuscular Volume 91.7 fl (80-100); Mean Platelet Volume 9.6 fl (7.4-10.4); Monocytes Absolute Auto 0.5 K/mm3 (0.1-0.6); Monocytes Percent Auto 7.7 % (2.6-8.5); Neutrophils Absolute Auto 4.2 K/mm3 (1.3-6.7); Neutrophils Percent Auto 71.8 % (45.5-73.1); Platelet Count Result 241 k/mm3 (150-375); Red Blood Count 4.95 M/mm3 (4.6-6.20); Red Cell Distribution Width 14.4 % (11.5-14.5); White Blood Count 5.9 K/mm3 (4.5-10.0)
[2021-08-11 11:13] LABS: Blood Urea Nitrogen 9 mg/dL (8-26); Carbon Dioxide 28 mmol/L (22-30); Chloride 105 mmol/L (98-109); Estimated Glomerular Filt Rate > 60; Glucose 94 mg/dL (70-105); Potassium 3.6 mmol/L (3.5-4.9); Sodium 146 mmol/L (138-146)
[2021-08-11 13:25] LABS: Alanine Aminotransferase 13 U/L (4-50); Albumin Level 4.2 g/dL (3.5-5.1); Alkaline Phosphatase 81 U/L (38-126); Anion Gap 10 mmol/L (8-16); Aspartate Amino Transferase 27 U/L (17-59); Bilirubin,Total 0.4 mg/dL (0.2-1.3); Blood Urea Nitrogen 10 mg/dL (9-20); Calcium 8.7 mg/dL (8.4-10.2); Carbon Dioxide 27 mmol/L (22-30); Chloride 107 mmol/L (98-107); Estimated Glomerular Filt Rate > 60; Glucose 94 mg/dL (65-110); Potassium 3.5 mmol/L (3.4-5.0); Sodium 144 mmol/L (137-145)
[2021-08-11 14:36] LABS: Folic Acid 9.9 ng/mL (2.76->20); Vitamin B12 > 1000.0 pg/mL (239-931)
== END 2021-08-11 10:51 | disposition home or self-care (01) ==
LOC: ANHLAB 10:51
PROVIDERS: PCP Internal Medicine; Visit Provider Internal Medicine Hematology & Oncology
DX: D50.9 Iron deficiency anemia, unspecified (principal)
CPT/HCPCS: 36415; 80048; 80053; 82607; 82746; 85025

== ENCOUNTER 2021-09-20 07:59 | Outpatient (CLI) | payer MEDICARE, SELFPAY ==
--- NOTE | ~2021-09-20 | XR_ITS ---
XR thoracic spine 3V 09/20/2021 08:37 Indication: Back pain Procedure: 3 views thoracic spine Comparison: 09/04/2005 Findings: No acute fracture or traumatic malalignment. Spinal stimulator leads overlie the mid thorac ic spine. There is mild wedge deformity of a midthoracic vertebra which appears chronic. Small margin al osteophytes in the lower thoracic spine. Visualized lung parenchyma is unremarkable. No evidence f or spondylolisthesis. Impression: 1: Mild thoracic spondylosis. Reviewed, dictated and finalized at location A. ETING PROJECT LEAD Impression: 1: Mild thoracic spondylosis.
--- NOTE | ~2021-09-20 | XR_ITS ---
XR cervical spine 4-5V 09/20/2021 08:37 Indication: Neck pain Procedure: 5 view cervical spine Comparison: No prior studies for comparison. Findings: There is degenerative disc disease at C5-6 and C6-7. Normal cervical alignment. No preverte bral soft tissue swelling. Odontoid process within normal limits. There is mild uncinate degenerative change at C5-6 and C6-7. Lung apices are normal. Normal mineralization. Impression: 1: Mild cervical spondylosis. Reviewed, dictated and finalized at location A. POT OPERATOR Impression: 1: Mild cervical spondylosis.
[2021-09-20 09:32] LABS: Prostate Specific Antigen 0.4 ng/mL (< OR = 4.0)
== END 2021-09-20 08:00 | disposition home or self-care (01) ==
LOC: ANHLAB 08:01
PROVIDERS: PCP Internal Medicine; Visit Provider Internal Medicine
DX: Z12.5 Encounter for screening for malignant neoplasm of prostate (principal); M47.814 Spondylosis without myelopathy or radiculopathy, thoracic region; M54.2 Cervicalgia
CPT/HCPCS: 36415; 72050; 72072; 84153; G0103

== ENCOUNTER 2022-02-06 09:19 | Outpatient (CLI) | payer MEDICARE, SELFPAY ==
--- NOTE | ~2022-02-06 | CT_ITS ---
EXAMINATION: CT diagnostic chest w con DATE: 02/06/2022 09:50 INDICATION: Non-small cell cancer of the right lung TECHNIQUE: Transaxial computed tomographic images of the chest were obtained after the administration of 75 cc of Omnipaque 300 intravenous contrast. The dose-length product (DLP) was 225.14 mGy-cm. Ite rative reconstruction was used. COMPARISON: 06/27/2021 FINDINGS: There are changes of right partial pneumonectomy. Areas of chronic scarring are noted in th e right lung. There is mild atelectasis of the right lung base. There is a small right pleural effusi on. No pneumothorax is identified. No pathologically enlarged thoracic lymph nodes are identified. Th e heart size is normal. There is calcified coronary artery atherosclerosis. Punctate calcifications i n otherwise normal appearing liver and spleen likely represent healed granulomatous disease. Surgical changes are noted in the stomach. There is a 3.5 cm cyst of the right kidney upper pole. There is mi ld thoracic spondylosis. An orphaned neurostimulator lead projects in the central spinal canal of the midthoracic spine. IMPRESSION: 1. Stable changes of right partial pneumonectomy. No new or suspicious findings. Reviewed, dictated and finalized at location B. IMPRESSION: 1. Stable changes of right partial pneumonectomy. No new or suspicious findings .
[2022-02-06 09:42] LABS: Estimated Glomerular Filt Rate > 60
== END 2022-02-06 09:20 | disposition home or self-care (01) ==
PROVIDERS: PCP Internal Medicine; Visit Provider Internal Medicine Hematology & Oncology
DX: C34.91 Malignant neoplasm of unspecified part of right bronchus or lung (principal)
CPT/HCPCS: 71260; Q9967

== ENCOUNTER 2022-02-09 10:55 | Outpatient (CLI) | payer MEDICARE, SELFPAY ==
[2022-02-09 11:10] LABS: Basophils Absolute Auto 0.1 K/mm3 (0.0-0.1); Basophils Percent Auto 0.7 % (0.2-1.2); Eosinophils Absolute Auto 0.3 K/mm3 (0-0.3); Eosinophils Percent Auto 3.6 % (0-4.4); Hematocrit 47.4 % (42.0-52.0); Hemoglobin 14.8 g/dL (14.0-18.0); Immature Granulocyte Absolute 0.02 K/mm3 (0.00-0.031); Immature Granulocyte Percent A 0.3 % (0-0.5); Lymphocytes Absolute Auto 1.29 K/mm3 (0.9-3.2); Lymphocytes Percent Auto 18.8 % (18.3-44.2); Mean Corpuscular HGB Conc 31.2 g/dl (32-36); Mean Corpuscular Hemoglobin 30.6 pg (26-34); Mean Corpuscular Volume 98.1 fl (80-100); Mean Platelet Volume 9.6 fl (7.4-10.4); Monocytes Absolute Auto 0.5 K/mm3 (0.1-0.6); Monocytes Percent Auto 6.7 % (2.6-8.5); Neutrophils Absolute Auto 4.8 K/mm3 (1.3-6.7); Neutrophils Percent Auto 69.9 % (45.5-73.1); Platelet Count Result 188 k/mm3 (150-375); Red Blood Count 4.83 M/mm3 (4.6-6.20); White Blood Count 6.9 K/mm3 (4.5-10.0)
[2022-02-09 11:14] LABS: Blood Urea Nitrogen 11 mg/dL (8-26); Carbon Dioxide 26 mmol/L (22-30); Chloride 103 mmol/L (98-109); Estimated Glomerular Filt Rate > 60; Glucose 131 mg/dL (70-105); Ionized Calcium (POC) 1.15 mmol/L (1.11-1.31); Potassium 3.5 mmol/L (3.5-4.9); Sodium 143 mmol/L (138-146)
[2022-02-09 12:17] LABS: Alanine Aminotransferase 16 U/L (6-50); Albumin Level 4.3 g/dL (3.5-5.1); Alkaline Phosphatase 95 U/L (38-126); Anion Gap 7 mmol/L (8-16); Aspartate Amino Transferase 26 U/L (17-59); Bilirubin,Total 0.4 mg/dL (0.2-1.3); Blood Urea Nitrogen 11 mg/dL (9-20); Calcium 8.4 mg/dL (8.4-10.2); Carbon Dioxide 28 mmol/L (22-30); Chloride 105 mmol/L (98-107); Estimated Glomerular Filt Rate > 60; Glucose 128 mg/dL (65-110); Potassium 3.4 mmol/L (3.4-5.0); Sodium 140 mmol/L (137-145)
== END 2022-02-09 10:56 | disposition home or self-care (01) ==
LOC: ANHLAB 10:57
PROVIDERS: PCP Internal Medicine; Visit Provider Internal Medicine Hematology & Oncology
DX: C34.91 Malignant neoplasm of unspecified part of right bronchus or lung (principal)
CPT/HCPCS: 36415; 80047; 80053; 85025

== ENCOUNTER 2022-07-14 12:28 | Outpatient (CLI) | payer MEDICARE, SELFPAY ==
[2022-07-14 12:48] LABS: Basophils Percent Auto 0.6 % (0.2-1.2); Eosinophils Absolute Auto 0.2 K/mm3 (0-0.3); Eosinophils Percent Auto 2.4 % (0-4.4); Hematocrit 46.2 % (42.0-52.0); Hemoglobin 14.8 g/dL (14.0-18.0); Immature Granulocyte Absolute 0.02 K/mm3 (0.00-0.031); Immature Granulocyte Percent A 0.3 % (0-0.5); Lymphocytes Absolute Auto 1.22 K/mm3 (0.9-3.2); Mean Corpuscular Volume 93.5 fl (80-100); Monocytes Absolute Auto 0.5 K/mm3 (0.1-0.6); Monocytes Percent Auto 6.4 % (2.6-8.5); Neutrophils Absolute Auto 5.3 K/mm3 (1.3-6.7); Neutrophils Percent Auto 73.3 % (45.5-73.1); Platelet Count Result 190 k/mm3 (150-375); Red Blood Count 4.94 M/mm3 (4.6-6.20); Red Cell Distribution Width 14.4 % (11.5-14.5); White Blood Count 7.2 K/mm3 (4.5-10.0)
[2022-07-14 12:59] LABS: Alanine Aminotransferase 17 U/L (6-50); Albumin Level 3.9 g/dL (3.5-5.1); Alkaline Phosphatase 107 U/L (38-126); Anion Gap 9 mmol/L (8-16); Aspartate Amino Transferase 26 U/L (17-59); Bilirubin,Total 0.5 mg/dL (0.2-1.3); Blood Urea Nitrogen 15 mg/dL (9-20); Calcium 8.4 mg/dL (8.4-10.2); Carbon Dioxide 28 mmol/L (22-30); Chloride 105 mmol/L (98-107); Estimated Glomerular Filt Rate > 60; Glucose 124 mg/dL (65-110); Magnesium 2.1 mg/dL (1.6-2.3); Potassium 4.3 mmol/L (3.4-5.0); Sodium 142 mmol/L (137-145)
[2022-07-14 13:39] LABS: Iron 98 ug/dL (49-181)
[2022-07-14 13:52] LABS: Percent Iron Saturation 24 % (20-50)
[2022-07-14 14:04] LABS: Free T4 Free Thyroxine 0.55 ng/mL (0.78-2.19)
--- NOTE | 2022-07-15 08:30 | WPDNEUROLOGY ---
Neurology EEG Report General Information Date of Study: 07/15/22 TEST Routine EEG DIAGNOSIS Convulsions CONDITION OF RECORDING Awake, drowsy, asleep EEG NUMBER [id number] CLINICAL HISTORY Patient reports about 4 months ago he started having episodes of whole body shaking, sometimes with falling. Episodes happen several times a week and last up to 8 minutes, denies any loss of consciousness EEG DESCRIPTION During the awake state with eyes closed the background consists of 9 Hz posterior dominant rhythm which attenuates appropriately with eye opening. The recording is continuous. There is a well developed anterior-posterior gradient. No significant asymmetries of background activities are noted. With drowsiness there is was waxing and waning of the dominant rhythm with eventual replacement by a mixture of beta, alpha, and theta activity. As the patient enters stage II sleep, symmetrical spindles are present. During sleep state, there is an isolated sharp transient noted in the left temporal region (T3). Arousal is unremarkable. There are no seizures during this recording. Photic stimulation was preformed and did not elicit any abnormal response. IMPRESSION This is an abnormal routine EEG recorded in awake, drowsy, and asleep states due to the presence of an isolated left temporal sharp transient. This finding can be seen in the setting of focal onset epilepsy. Clinical correlation is recommended.
[2022-07-17 10:10] LABS: Ionized Calcium 4.8 mg/dL (4.8-5.6)
[2022-07-19 09:57] LABS: Vitamin B1 9 nmol/L (8-30)
[2022-07-19 11:35] LABS: Vitamin B6 9.2 ng/mL (2.1-21.7)
[2022-07-22 18:24] LABS: Vitamin B2 <5.0 nmol/L (6.2-39.0)
== END 2022-07-14 12:29 | disposition home or self-care (01) ==
PROVIDERS: PCP Internal Medicine; Visit Provider Internal Medicine
DX: R56.9 Unspecified convulsions (principal); Z79.899 Other long term (current) drug therapy; E53.9 Vitamin B deficiency, unspecified; Z98.84 Bariatric surgery status; Z13.29 Encounter for screening for other suspected endocrine disorder; R25.1 Tremor, unspecified; E53.8 Deficiency of other specified B group vitamins; D50.9 Iron deficiency anemia, unspecified; E55.9 Vitamin D deficiency, unspecified; R94.01 Abnormal electroencephalogram [EEG]
CPT/HCPCS: 36415; 80053; 82306; 82330; 82607; 82728; 82746; 83540; 83550; 83735; 84207; 84252; 84425; 84439; 84443; 85025; 95816

== ENCOUNTER 2022-07-16 08:40 | Outpatient (CLI) | payer MEDICARE, SELFPAY ==
--- NOTE | ~2022-07-16 | CT_ITS ---
EXAMINATION: CT brain wo/w con DATE: 07/16/2022 09:38 INDICATION: Dizziness. Headache. Lung cancer. TECHNIQUE: Computed tomography (CT) of the head was performed without and with 100 mL Omnipaque 350 i ntravenous contrast. The mA was adjusted according to patient size. Iterative reconstruction techniqu e was employed. The dose-length product was 1210.67 mGy-cm. COMPARISON: Head CT 06/07/2019 FINDINGS: There are old infarcts in the cerebellum bilaterally. There is an old infarct involving the left basal ganglia and anterior limb left internal capsule. There is an old infarct in left thalamus . There are scattered areas of low attenuation in the cerebral white matter, which is within normal l imits for the patient's age. There is no intracranial hemorrhage, acute infarction, or abnormal intra cranial mass lesion. The ventricles are normal in size. The orbits are normal. There is mild mucosal thickening in the ethmoid sinuses. The mastoid air cells are normal. IMPRESSION: 1. Old infarcts involving the cerebellum, left basal ganglia, anterior limb left internal capsule, an d left thalamus. Reviewed, dictated and finalized at location A. IMPRESSION: 1. Old infarcts involving the cerebellum, left basal ganglia, anterior limb lef t internal capsule, and left thalamus.
== END 2022-07-16 08:41 | disposition home or self-care (01) ==
PROVIDERS: PCP Internal Medicine; Visit Provider Internal Medicine
DX: R25.1 Tremor, unspecified (principal); R41.89 Other symptoms and signs involving cognitive functions and awareness
CPT/HCPCS: 70470; Q9967

== ENCOUNTER 2022-07-28 12:26 | Outpatient (CLI) | payer MEDICARE, SELFPAY ==
[2022-08-02 05:37] LABS: Triiodothyronine T3 Free 3.3 pg/mL (2.3-4.2)
== END 2022-07-28 12:27 | disposition home or self-care (01) ==
LOC: ANHLAB 12:28
PROVIDERS: PCP Internal Medicine; Visit Provider Internal Medicine
DX: R94.6 Abnormal results of thyroid function studies (principal)
CPT/HCPCS: 36415; 84481

== ENCOUNTER 2023-01-07 17:32 | Emergency (ER) | payer MEDICARE, SELFPAY ==
[2023-01-07] VITALS (19 sets, daily range): BP systolic 75–123; BP diastolic 41–70; PULSE 50–68; RESP 12–20; TEMP 36.2–36.6; O2SAT 91–100
--- NOTE | ~2023-01-07 | XR_ITS ---
XR chest 1V portable DATE: 01/07/2023 18:27 INDICATION: Near syncope TECHNIQUE: Portable semiupright AP views on January 07, 2023 at 18 2014 1825 hours COMPARISON: 02/06/2022 CT chest FINDINGS: There is postoperative change of the right lung, including right lung volume loss, also pre sent on 02/06/2022. No pulmonary infiltrate or consolidation, pleural effusion or pulmonary vascular congestion or pneumo thorax is evident. Heart size is within normal range. No hilar or mediastinal enlargement is evident. Diffuse osteopenia. IMPRESSION: Status post right partial pneumonectomy No active cardiopulmonary disease Reviewed, dictated and finalized at location A.
--- NOTE | 2023-01-07 17:55 | ECG_ITS ---
Measurements Intervals [place] Rate: 56 P: 48 ID: [id number] QRS: -9 QRSD: 96 T: 37 QT: 410 QTc: 399 Interpretive Statements SINUS BRADYCARDIA OTHERWISE WITHIN NORMAL LIMITS COMPARED TO ECG 03/22/2019 11:28:15 SLIGHTLY REDUCED HEART RATE NO OTHER DIFFERENCE Electronically Signed On 01-08-2023 7:46:16 CDT by Fernando Mcneal M.D.
--- NOTE | 2023-01-07 18:37 | ED.RECABL ---
HPI - Recheck/Abnormal Lab/Rx General Chief Complaint: Recheck/Abnormal Lab/Rx Stated Complaint: Low blood pressure Time Seen by Provider: 01/07/23 17:50 History of Present Illness HPI narrative: This is a 62-year-old male, with recent history of left leg fracture status post pinning and hypotension, requiring midodrine during a recent admission to [facility] who presents emergency department with hypotension and lightheadedness. The patient and his note he was at physical therapy today, when he felt lightheaded on standing. He measured his blood pressure with systolic pressure in the 50s. After lying down, it improved to the 70s systolic. He currently denies lightheadedness, chest pain or weakness. His notes that he was taken off midodrine prior to discharge from [facility]. Related Data Home Medications Medication Instructions Recorded Confirmed ferrous sulfate 325 mg (65 mg 325 mg PO BID 08/17/19 07/29/22 iron) tablet lidocaine 5 % topical patch 1 patch topical DAILY 08/17/19 07/29/22 mv-folic acid 200 mcg-D3 300 tablet PO 08/17/19 07/29/22 unit-K2 20 [id number]#222 tablet (Stages Men's Multi-Vitamin) omeprazole 20 mg capsule,delayed 20 mg PO BID 08/17/19 07/29/22 release sucralfate 100 mg/mL oral 2 gm RECTAL BID 08/17/19 07/29/22 suspension (Carafate) pregabalin 150 mg capsule (Lyrica) 150 mg PO BID 05/15/20 07/29/22 Allergies Allergy/AdvReac Type Severity Reaction Status Date / Time Penicillins Allergy Unknown Itching Verified 01/07/23 18:03 Review of Systems Review of Systems: CONSTITUTIONAL: Denies fever, chills, or sweats. EYES: Denies visual changes, redness, or discharge. ENT: Denies rhinorrhea, congestion, sore throat, or otalgia. CARDIOVASCULAR: Denies chest pain, palpitations, or edema. RESPIRATORY: Denies cough or dyspnea. GASTROINTESTINAL: Denies abdominal pain, nausea, vomiting, or diarrhea. GENITOURINARY: Denies dysuria or hematuria. SKIN: Denies rash or itching. MUSCULOSKELETAL: Denies back pain, joint pain, or myalgia. NEUROLOGIC: Intermittent lightheadedness denies headache, numbness, dizziness, or weakness. PSYCHIATRIC: Denies anxiety or depression. [facility] Past Medical History Medical History Absence seizure Acute nonintractable headache Ataxia Back pain BMI 22.0-22.9, adult BMI 25.0-25.9,adult BMI 27.0-27.9,adult BMI 29.0-29.9,adult BMI 30.0-30.9,adult BMI 31.0-31.9,adult BMI 32.0-32.9,adult Borderline abnormal TFTs Breast tenderness in male Cervicalgia Change in vision Chronic fatigue Chronic low back pain Cognitive changes COPD (chronic obstructive pulmonary disease) CTS (carpal tunnel syndrome) DJD (degenerative joint disease) NAVARRETE (dyspnea on exertion) Encounter for preventive health examination Encounter for routine adult health examination with abnormal findings Encounter for routine adult health examination with abnormal findings Encounter for routine adult health examination without abnormal findings Follow up GERD (gastroesophageal reflux disease) Hearing loss Hearing loss of both ears Hematoma Hematuria Hemoptysis Iron deficiency anemia Myopia 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 Personal history of nicotine dependence Shortness of Breath Squamous cell carcinoma Tobacco abuse Tremor Vitamin B1 deficiency Vitamin B12 deficiency Vitamin B2 deficiency Vitamin D deficiency Surgical History Surgical History Hx of gastric bypass Previous back surgery x6 S/P pneumonectomy Family History Family History Father Hypertension Family history of heart disease in male family member before age 55 Family history of cardiovascular disease Mother Hypertension Family history of diabetes mellitus in first degree relative Family history of malignant neoplasm of brain Family history of heart disease i
[2023-01-07 18:56] LABS: Basophils Absolute Auto 0.1 K/mm3 (0.0-0.1); Basophils Percent Auto 0.7 % (0.2-1.2); Eosinophils Absolute Auto 0.1 K/mm3 (0-0.3); Eosinophils Percent Auto 1.4 % (0-4.4); Hematocrit 41.7 % (42.0-52.0); Hemoglobin 12.6 g/dL (14.0-18.0); Immature Granulocyte Absolute 0.05 K/mm3 (0.00-0.031); Immature Granulocyte Percent A 0.5 % (0-0.5); Lymphocytes Absolute Auto 1.05 K/mm3 (0.9-3.2); Lymphocytes Percent Auto 11.1 % (18.3-44.2); Mean Corpuscular HGB Conc 30.2 g/dl (32-36); Mean Corpuscular Volume 95.9 fl (80-100); Mean Platelet Volume 10.7 fl (7.4-10.4); Monocytes Absolute Auto 0.6 K/mm3 (0.1-0.6); Monocytes Percent Auto 6.3 % (2.6-8.5); Neutrophils Absolute Auto 7.6 K/mm3 (1.3-6.7); Platelet Count Result 203 k/mm3 (150-375); Red Blood Count 4.35 M/mm3 (4.6-6.20); Red Cell Distribution Width 14.8 % (11.5-14.5); White Blood Count 9.5 K/mm3 (4.5-10.0)
--- NOTE | 2023-01-07 19:33 | PC.NURSE ---
Pt resting comfortably in bed, NAD, resp even and unlabored, skin warm/dry. Updated pt on plan of care, all needs addressed, no question at this time. Call light within reach.
[2023-01-07 20:47] LABS: Lactic Acid Reflex 0.8 mmol/L (0.7-2.0)
[2023-01-07 20:50] LABS: Alanine Aminotransferase 11 U/L (6-50); Albumin Level 3.1 g/dL (3.5-5.1); Alkaline Phosphatase 159 U/L (38-126); Anion Gap 9 mmol/L (8-16); Aspartate Amino Transferase 48 U/L (17-59); Bilirubin,Total 0.8 mg/dL (0.2-1.3); Blood Urea Nitrogen 13 mg/dL (9-20); Calcium 8.1 mg/dL (8.4-10.2); Carbon Dioxide 20 mmol/L (22-30); Chloride 111 mmol/L (98-107); Estimated Glomerular Filt Rate > 60; Glucose 113 mg/dL (65-110); Sodium 140 mmol/L (137-145)
[2023-01-07 20:55] LABS: Potassium 4.9 mmol/L (3.4-5.0)
[2023-01-07 22:03] LABS: Appearance Urine Clear (Clear); Bacteria Urine None Seen /hpf; Bilirubin Urine Negative (Negative); Blood Urine Negative (Negative); Color Urine Dark Yellow (Yellow); Glucose Urine UA Negative (Negative); Ketones Urine Negative (Negative); Leukocyte Esterase Ur Negative LEU/UL (Negative); Mucus Urine Present /lpf; Need Manual Microscopic Reviewed; Nitrate Urine Negative (Negative); Non Pathogenic Casts >20; Protein Urine Trace mg/dL (Negative); RBC Urine 0-2 /hpf (0-2); Specific Grav Ur 1.028 (1.001-1.035); Squamous Epithelial Cell Urine Occasional /hpf (Few); WBC Urine 0-5 /hpf
[2023-01-07 22:04] LABS: Add Urine Microscopic? YES
== END 2023-01-07 22:23 | disposition home or self-care (01) ==
PROVIDERS: Emergency Provider Preventive Medicine Aerospace Medicine; PCP Internal Medicine
DX: I95.1 Orthostatic hypotension (principal); E86.0 Dehydration; J44.9 Chronic obstructive pulmonary disease, unspecified; D50.9 Iron deficiency anemia, unspecified; G40.909 Epilepsy, unspecified, not intractable, without status epilepticus; E53.8 Deficiency of other specified B group vitamins; Z87.81 Personal history of (healed) traumatic fracture; Z98.84 Bariatric surgery status; F17.210 Nicotine dependence, cigarettes, uncomplicated; Z79.51 Long term (current) use of inhaled steroids
CPT/HCPCS: 36415; 71045; 80053; 81001; 83605; 85025; 93005; 99283

== ENCOUNTER 2023-01-28 10:10 | Outpatient (CLI) | payer MEDICARE, SELFPAY ==
[2023-01-28 10:36] LABS: Basophils Percent Auto 0.6 % (0.2-1.2); Eosinophils Absolute Auto 0.2 K/mm3 (0-0.3); Eosinophils Percent Auto 3.7 % (0-4.4); Hematocrit 44.2 % (42.0-52.0); Hemoglobin 13.3 g/dL (14.0-18.0); Immature Granulocyte Absolute 0.01 K/mm3 (0.00-0.031); Immature Granulocyte Percent A 0.2 % (0-0.5); Lymphocytes Percent Auto 14.3 % (18.3-44.2); Mean Corpuscular HGB Conc 30.1 g/dl (32-36); Mean Corpuscular Hemoglobin 28.2 pg (26-34); Mean Corpuscular Volume 93.8 fl (80-100); Mean Platelet Volume 10.3 fl (7.4-10.4); Monocytes Absolute Auto 0.4 K/mm3 (0.1-0.6); Monocytes Percent Auto 6.8 % (2.6-8.5); Neutrophils Absolute Auto 4.7 K/mm3 (1.3-6.7); Neutrophils Percent Auto 74.4 % (45.5-73.1); Platelet Count Result 185 k/mm3 (150-375); Red Blood Count 4.71 M/mm3 (4.6-6.20); Red Cell Distribution Width 14.3 % (11.5-14.5); White Blood Count 6.3 K/mm3 (4.5-10.0)
[2023-01-28 11:20] LABS: Cortisol Baseline 8.51 ug/dL
[2023-01-28 11:25] LABS: Iron 28 ug/dL (49-181)
[2023-01-28 11:31] LABS: Percent Iron Saturation 8 % (20-50)
[2023-01-28 11:32] LABS: Alanine Aminotransferase 18 U/L (6-50); Albumin Level 3.8 g/dL (3.5-5.1); Alkaline Phosphatase 152 U/L (38-126); Anion Gap 7 mmol/L (8-16); Aspartate Amino Transferase 23 U/L (17-59); Bilirubin,Total 0.4 mg/dL (0.2-1.3); Blood Urea Nitrogen 17 mg/dL (9-20); Calcium 8.6 mg/dL (8.4-10.2); Carbon Dioxide 30 mmol/L (22-30); Chloride 102 mmol/L (98-107); Estimated Glomerular Filt Rate > 60; Glucose 107 mg/dL (65-110); Sodium 139 mmol/L (137-145)
[2023-01-28 11:38] LABS: Vitamin D 25 Hydroxy 62.2 ng/mL
[2023-01-28 12:37] LABS: Folic Acid 10.7 ng/mL (2.76->20)
== END 2023-01-28 10:11 | disposition home or self-care (01) ==
PROVIDERS: PCP Internal Medicine; Visit Provider Internal Medicine
DX: D50.9 Iron deficiency anemia, unspecified (principal); I95.9 Hypotension, unspecified; Z79.899 Other long term (current) drug therapy; E55.9 Vitamin D deficiency, unspecified; E53.8 Deficiency of other specified B group vitamins
CPT/HCPCS: 36415; 80053; 82306; 82533; 82607; 82728; 82746; 83540; 83550; 85025

== ENCOUNTER 2023-01-28 16:08 | Outpatient (CLI) | payer MEDICARE, SELFPAY ==
[2023-01-28 17:32] LABS: Cortisol Random 7.94 ug/dL
== END 2023-01-28 16:09 | disposition home or self-care (01) ==
LOC: ANHLAB 16:10
PROVIDERS: PCP Internal Medicine; Visit Provider Internal Medicine
DX: I95.9 Hypotension, unspecified (principal); Z79.899 Other long term (current) drug therapy
CPT/HCPCS: 36415; 82533

== ENCOUNTER 2023-02-09 11:46 | Outpatient (CLI) | payer MEDICARE, SELFPAY ==
[2023-02-09 12:17] LABS: Basophils Percent Auto 0.6 % (0.2-1.2); Eosinophils Absolute Auto 0.3 K/mm3 (0-0.3); Eosinophils Percent Auto 4.1 % (0-4.4); Hematocrit 43.7 % (42.0-52.0); Hemoglobin 13.6 g/dL (14.0-18.0); Immature Granulocyte Absolute 0.02 K/mm3 (0.00-0.031); Immature Granulocyte Percent A 0.3 % (0-0.5); Lymphocytes Absolute Auto 1.07 K/mm3 (0.9-3.2); Lymphocytes Percent Auto 17.4 % (18.3-44.2); Mean Corpuscular HGB Conc 31.1 g/dl (32-36); Mean Corpuscular Volume 93.2 fl (80-100); Monocytes Absolute Auto 0.4 K/mm3 (0.1-0.6); Monocytes Percent Auto 6.8 % (2.6-8.5); Neutrophils Absolute Auto 4.4 K/mm3 (1.3-6.7); Neutrophils Percent Auto 70.8 % (45.5-73.1); Platelet Count Result 182 k/mm3 (150-375); Red Blood Count 4.69 M/mm3 (4.6-6.20); Red Cell Distribution Width 14.3 % (11.5-14.5); White Blood Count 6.2 K/mm3 (4.5-10.0)
== END 2023-02-09 11:47 | disposition home or self-care (01) ==
PROVIDERS: PCP Internal Medicine; Visit Provider Internal Medicine
DX: I95.9 Hypotension, unspecified (principal); D50.9 Iron deficiency anemia, unspecified; Z79.899 Other long term (current) drug therapy
CPT/HCPCS: 36415; 85025

== ENCOUNTER 2023-04-07 16:00 | Emergency (ER) | payer MEDICARE, SELFPAY ==
[2023-04-07] VITALS (11 sets, daily range): BP systolic 83–97; BP diastolic 50–69; PULSE 67–94; RESP 17–22; TEMP 37.1; O2SAT 94–99
--- NOTE | ~2023-04-07 | XR_ITS ---
XR chest 1V portable DATE: 04/07/2023 18:14 INDICATION: Weakness TECHNIQUE: Portable upright AP chest on 04/07/2023 at 1806 hours COMPARISON: January 07, 2023 portable AP chest FINDINGS: There is a large amount of free intraperitoneal air beneath the left and right diaphragm. There is mild atelectasis at both lung bases. The lungs otherwise appear clear. Heart size appears within normal range. There is aortic arch calcification. No hilar or mediastinal e nlargement. Diffuse osteopenia. IMPRESSION: Large amount of intraperitoneal free air consistent with hollow viscus rupture Telephoned the report on 04/07/2023 at 1825 hours to emergency room physician assistant professor of spanish Nguyen adam. Reviewed, dictated and finalized at location A. IMPRESSION: Large amount of intraperitoneal free air consistent with hollow vis cus rupture Telephoned the report on 04/07/2023 at 1825 hours to emergency room physician assistant professor of spanish Nguyen Matt.
--- NOTE | ~2023-04-07 | XR_ITS ---
XR abdomen NG/feed tube insert DATE: 04/07/2023 19:34 INDICATION: NG tube placement TECHNIQUE: Portable supine AP view COMPARISON: None FINDINGS: The NG tube passes into the distal esophagus makes a 180 degree turn, the distal 6 cm direc sivakumar cephalad in the lower chest. Very prominent amount of free air under both leaves of the diaphragm. Radiopaque sutures, left upper quadrant. Lumbar spinal fusion hardware. IMPRESSION: NG tube in unsatisfactory position in the lower chest, making a 180 degree U-turn, the di stal 6 cm directed cephalad Reviewed, dictated and finalized at Location [facility]. Reviewed, dictated and finalized at location A. IMPRESSION: NG tube in unsatisfactory position in the lower chest, making a 180 degree U-turn, the distal 6 cm directed cephalad
--- NOTE | ~2023-04-07 | XR_ITS ---
XR chest port-a-cath/central DATE: 04/07/2023 21:30 INDICATION: Central line placement TECHNIQUE: Portable AP chest on 04/2023 at 2128 hours COMPARISON: 04/07/2020 portable AP chest at 1806 hours FINDINGS: There is a left subclavian central venous catheter, the distal tip overlying superior vena cava. There is no evidence of pneumothorax. There is an NG tube in the stomach. Mild bibasilar atelectasis. The lungs otherwise appear essentially clear. No pleural effusion or pulm onary vascular congestion. Prominent amount of intraperitoneal free air is again noted. Osteopenia. IMPRESSION: Left subclavian central line placement in superior vena cava; no pneumothorax Reviewed, dictated and finalized at Location [facility]. Reviewed, dictated and finalized at location A. IMPRESSION: Left subclavian central line placement in superior vena cava; no pn eumothorax
--- NOTE | ~2023-04-07 | CT_ITS ---
EXAMINATION: CT abdomen pelvis wo con DATE: 04/07/2023 18:45 INDICATION: Intraperitoneal free air. Abdominal pain. TECHNIQUE: Computed tomography (CT) of the abdomen and pelvis was performed without intravenous contr ast. Automated exposure control and iterative reconstruction technique were employed. Exam dose: 386 .76 mGy-cm total exam DLP. COMPARISON: 04/07/2023 chest 03/15/2019 CT abdomen pelvis FINDINGS: Mild atelectasis at the lung bases. Borderline cardiomegaly. Trace pericardial fluid. No pleural effusions. There is a prominent amount of free air within the abdominal and pelvic cavities, with fluid around t he liver and spleen, with intraperitoneal cavity air-fluid level laterally in the right upper and low er abdomen. The findings are consistent with ruptured hollow intra-abdominal viscus. Postoperative change of the stomach. Numerous hepatic and splenic calcified granulomas consistent with old granulomatous disease. The liver, spleen, pancreas, and adrenal glands are unremarkable. The left kidney is unremarkable. 3 cm upper pole right renal cyst. Approximately 8 mm lower pole nonobstructing right renal calculus w ith attenuation of 930 Hounsfield units. No other urinary tract calculus or hydroureteronephrosis is noted. The urinary bladder is unremarkable. Mild prostate enlargement and calcifications. Normal caliber of the abdominal aorta. No abdominal or pelvic lymphadenopathy is noted. Midline supraumbilical ventral abdominal wall hernia containing gas. Status post posterior and interbody spinal fusion at L3-S1. Mild anterior wedge compression fracture deformity of T12 and L1. Severe degenerative disc disease at L2-3. IMPRESSION: Large amount of free intraperitoneal air and fluid consistent with ruptured hollow abdom inal viscus, site undetermined Status post gastric bypass surgery 3 cm right renal cyst Mild anterior wedge compression fractures of T12 and L1. These may be recent or subacute. Status post posterior and interbody spinal fusion at L3-S1 Severe degenerative disc disease at L2-3 Reviewed, dictated and finalized at Location A. Reviewed, dictated and finalized at location A. IMPRESSION: Large amount of free intraperitoneal air and fluid consistent with ruptured hollow abdominal viscus, site undetermined Status post gastric bypass surgery 3 cm right renal cyst Mild anterior wedge compression fractures of T12 and L1. These may be recent or subacute. Status post posterior and interbody spinal fusion at L3-S1 Severe degenerative disc disease at L2-3
--- NOTE | ~2023-04-07 | XR_ITS ---
XR abdomen NG/feed tube rechec DATE: 04/07/2023 19:57 INDICATION: NG tube placement after adjustment TECHNIQUE: Portable AP view on 04/07/2023 at 1945 hours COMPARISON: 04/07/2023 KUB at 1930 hours FINDINGS: An NG tube has been repositioned, now passing into the stomach in the left upper quadrant, the proximal side-port approximately 1 cm distal to the diaphragmatic hiatus. IMPRESSION: NG tube in stomach Reviewed, dictated and finalized at Location [facility]. Reviewed, dictated and finalized at location A. IMPRESSION: NG tube in stomach
--- NOTE | 2023-04-07 16:11 | ECG_ITS ---
Measurements Intervals [place] Rate: 85 P: 131 [place]: 168 QRS: 190 QRSD: 98 T: 141 QT: 335 QTc: 400 Interpretive Statements SINUS RHYTHM ARM LEADS REVERSED ATYPICAL ECG COMPARED TO ECG 01/07/2023 17:56:45 SINUS RHYTHM NOW PRESENT Electronically Signed On 04-07-2023 16:30:25 CDT by Victor Manuel Mackay D.O.
--- NOTE | 2023-04-07 16:28 | ED.WEAKNESS ---
HPI - Weakness General Chief complaint: Weakness <MATT Ordaz - Last Filed: 04/07/23 19:05> Stated complaint: weakness <MATT Ordaz - Last Filed: 04/07/23 19:05> Time Seen by Provider: 04/07/23 16:03 <MATT Ordaz - Last Filed: 04/07/23 19:05> History of Present Illness HPI Narrative: This 63-year-old male patient with past medical history of chronic hypotension requiring midodrine, appearing unkempt and a poor historian of his health presents to the emergency room with generalized complaints pain in his legs that is chronic, feeling weak overall, right-sided abdominal pain that started yesterday and stating that he thinks he may be low on blood. He patient is difficult to get any elaboration <MATT Ordaz - Last Filed: 04/07/23 19:05> Related Data Home medications: Home Medications Medication Instructions Recorded Confirmed lidocaine 5 % topical patch 1 patch topical DAILY 08/17/19 04/05/23 mv-folic acid 200 mcg-D3 300 tablet PO 08/17/19 04/05/23 unit-K2 20 [id number]#222 tablet (Stages Men's Multi-Vitamin) omeprazole 20 mg capsule,delayed 20 mg PO BID 08/17/19 04/05/23 release sucralfate 100 mg/mL oral 2 gm RECTAL BID 08/17/19 04/05/23 suspension (Carafate) pregabalin 150 mg capsule (Lyrica) 150 mg PO BID 05/15/20 04/05/23 cholecalciferol (vitamin D3) 50 100 mcg PO DAILY 01/28/23 04/05/23 mcg (2,000 unit) capsule ferrous sulfate 325 mg (65 mg 325 mg PO DAILY 01/28/23 04/05/23 iron) tablet hydrocodone 10 mg-acetaminophen 1 tablet PO Q4H PRN 01/28/23 04/05/23 325 mg tablet doxycycline hyclate 100 mg tablet 100 mg PO DAILY 02/15/23 04/05/23 <AMTT Ordaz - Last Filed: 04/07/23 19:05> Allergies/Adverse reactions: Allergies Allergy/AdvReac Type Severity Reaction Status Date / Time Penicillins Allergy Unknown Itching Verified 02/16/23 10:30 <MATT Ordaz - Last Filed: 04/07/23 19:05> Review of Systems Review of Systems: limited review of systems as patient is a poor historian. <MATT Ordaz - Last Filed: 04/07/23 19:05> All systems reviewed & are unremarkable except as noted in HPI and below <MATT Ordaz - Last Filed: 04/07/23 19:05> [facility] Past Medical History Medical History: Medical History Absence seizure Acute nonintractable headache Ataxia Back pain BMI 22.0-22.9, adult BMI 24.0-24.9, adult BMI 25.0-25.9,adult BMI 27.0-27.9,adult BMI 29.0-29.9,adult BMI 30.0-30.9,adult BMI 31.0-31.9,adult BMI 32.0-32.9,adult Borderline abnormal TFTs Breast tenderness in male Cervicalgia Change in vision Chronic fatigue Chronic low back pain Cognitive changes COPD (chronic obstructive pulmonary disease) Crushing injury leg CTS (carpal tunnel syndrome) DJD (degenerative joint disease) NAVARRETE (dyspnea on exertion) Encounter for Medicare annual wellness exam Encounter for preventive health examination Encounter for routine adult health examination with abnormal findings Encounter for routine adult health examination with abnormal findings Encounter for routine adult health examination without abnormal findings Follow up GERD (gastroesophageal reflux disease) Hearing loss Hearing loss of both ears Hematoma Hematuria Hemoptysis Hypotension Iron deficiency anemia Myopia 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
[2023-04-07] MEDS: SODIUM CHLORIDE 0.9% IV 1,000 ML 999 ML IV CONT ×2 (16:41→17:59)
[2023-04-07 16:51] LABS: Hematocrit 46.3 % (42.0-52.0); Hemoglobin 15.1 g/dL (14.0-18.0); Immature Platelet Fraction Pct 3.1 % (0.9-11.2); Mean Corpuscular HGB Conc 32.6 g/dl (32-36); Mean Corpuscular Hemoglobin 28.5 pg (26-34); Mean Corpuscular Volume 87.5 fl (80-100); Platelet Count Result 259 k/mm3 (150-375); Red Blood Count 5.29 M/mm3 (4.6-6.20); Red Cell Distribution Width 17.1 % (11.5-14.5); White Blood Count 11.6 K/mm3 (4.5-10.0)
[2023-04-07 16:59] LABS: Alanine Aminotransferase 19 U/L (6-50); Albumin Level 3.4 g/dL (3.5-5.1); Alkaline Phosphatase 96 U/L (38-126); Anion Gap 15 mmol/L (8-16); Aspartate Amino Transferase 18 U/L (17-59); Bilirubin,Total 0.7 mg/dL (0.2-1.3); Blood Urea Nitrogen 45 mg/dL (9-20); Calcium 8.6 mg/dL (8.4-10.2); Carbon Dioxide 17 mmol/L (22-30); Chloride 104 mmol/L (98-107); Estimated CRCL calculation 29 ml/min; Estimated Glomerular Filt Rate 29; Glucose 85 mg/dL (65-110); Magnesium 2.2 mg/dL (1.6-2.3); Potassium 4.2 mmol/L (3.4-5.0); Sodium 136 mmol/L (137-145)
[2023-04-07 17:11] LABS: Troponin I < 0.012 ng/mL (0.000-0.034)
[2023-04-07 17:20] LABS: Band Neutrophils Percent 25 % (0-6); Lymphocytes Absolute Manual 0.69 K/mm3 (1.1-4.5); Monocytes Absolute Manual 1.04 K/mm3 (0.1-0.90); Monocytes Percent Manual 9 % (3-9); Neutrophils Absolute Manual 9.86 K/mm3 (1.3-6.7); Neutrophils Percent Manual 60 % (46-73); Platelet Estimate Adequate (Adequate); Schistocytes None Seen (NORMAL); Total Cells Counted 100
[2023-04-07 17:21] LABS: Anisocytosis 2+ (NORMAL)
[2023-04-07] MEDS: MIDODRINE HCL 10 MG TABLET PO (17:59)
[2023-04-07] MEDS: cefTRIAXone 2 GM/NS 100 ML 2 GM/100 ML BAG IVPB (18:04)
--- NOTE | 2023-04-07 18:33 | PC.NURSE ---
Patient off unit to CT.
--- NOTE | 2023-04-07 19:07 | PC.NURSE ---
Pt report given to AMBIKA Uriarte. All questions answered and care of patient transferred.
[2023-04-07] MEDS: metroNIDAZOLE 500 MG/ISO 100ML 500 MG/100 ML BAG 100 MG IVPB (19:16)
[2023-04-07] MEDS: LACTATED RINGERS 1,000 ML 150 ML IV CONT (19:17)
[2023-04-07 19:32] LABS: Appearance Urine Cloudy (Clear); Bacteria Urine 4+ /hpf; Bilirubin Urine 2+ (Negative); Blood Urine Negative (Negative); Color Urine Dark Yellow (Yellow); Glucose Urine UA Negative (Negative); Hyaline Casts Urine Present /lpf; Ketones Urine Trace mg/dL (Negative); Leukocyte Esterase Ur Trace LEU/UL (Negative); Nitrate Urine Negative (Negative); Non Pathogenic Casts >20; Protein Urine 1+ mg/dL (Negative); Specific Grav Ur 1.033 (1.001-1.035); Squamous Epithelial Cell Urine Many /hpf (Few)
[2023-04-07 19:33] LABS: Add Urine Microscopic? YES
[2023-04-07] MEDS: PANTOPRAZOLE SODIUM IV 40 MG VIAL 80 MG IV PUSH (20:22)
[2023-04-07 21:01] LABS: Lactic Acid Reflex 3.9 mmol/L (0.7-2.0)
--- NOTE | 2023-04-07 21:37 | PC.NURSE ---
Levophed given to flight crew to initiate at the 5mcg/min.
[2023-04-07] MEDS: NOREPINEPHRINE 8 MG/D5W 250 ML 8 MG/250 ML BAG 9.38 MG IV CONT (21:42)
[2023-04-07 23:50] LABS: Reflex Lactic Acid Yes or No Add Lactic
== END 2023-04-07 22:01 | disposition short-term general hospital (02) ==
PROVIDERS: Emergency Provider Nurse Practitioner Adult Health; PCP Internal Medicine
DX: K63.1 Perforation of intestine (nontraumatic) (principal); R53.1 Weakness; I95.89 Other hypotension; N17.9 Acute kidney failure, unspecified; D72.825 Bandemia; J44.9 Chronic obstructive pulmonary disease, unspecified; G40.A09 Absence epileptic syndrome, not intractable, without status epilepticus; D50.9 Iron deficiency anemia, unspecified; E51.9 Thiamine deficiency, unspecified; E53.8 Deficiency of other specified B group vitamins; E53.0 Riboflavin deficiency; E55.9 Vitamin D deficiency, unspecified; K21.9 Gastro-esophageal reflux disease without esophagitis; Z98.84 Bariatric surgery status; Z85.828 Personal history of other malignant neoplasm of skin; Z87.891 Personal history of nicotine dependence; N28.1 Cyst of kidney, acquired; M51.36 Other intervertebral disc degeneration, lumbar region; S32.010A Wedge compression fracture of first lumbar vertebra, initial encounter for closed fracture; S22.080A Wedge compression fracture of T11-T12 vertebra, initial encounter for closed fracture; X58.XXXA Exposure to other specified factors, initial encounter
CPT/HCPCS: 36415; 36556; 51702; 71045; 74176; 80053; 81001; 83605; 83735; 84484; 85025; 85055; 87040; 87077; 87086; 93005; 96361; 96365; 96367; 96375; 99285; A9270; C1751; C9113; J0696; J1836; J7030; J7120

== ENCOUNTER 2023-10-13 07:38 | Outpatient (CLI) | payer MEDICARE, SELFPAY ==
[2023-10-13 09:19] LABS: Folic Acid 5.2 ng/mL (2.76->20)
== END 2023-10-13 07:39 | disposition home or self-care (01) ==
LOC: ANHLAB 07:40
PROVIDERS: PCP Internal Medicine; Visit Provider Internal Medicine
DX: E53.8 Deficiency of other specified B group vitamins (principal)
CPT/HCPCS: 36415; 82607; 82746

== ENCOUNTER 2023-10-29 09:34 | Outpatient (CLI) | payer MEDICARE, SELFPAY ==
[2023-10-29 10:00] LABS: Basophils Percent Auto 0.6 % (0.2-1.2); Eosinophils Absolute Auto 0.3 K/mm3 (0-0.3); Hematocrit 41.2 % (42.0-52.0); Hemoglobin 12.7 g/dL (14.0-18.0); Immature Granulocyte Absolute 0.01 K/mm3 (0.00-0.031); Immature Granulocyte Percent A 0.2 % (0-0.5); Lymphocytes Absolute Auto 0.97 K/mm3 (0.9-3.2); Lymphocytes Percent Auto 14.9 % (18.3-44.2); Mean Corpuscular HGB Conc 30.8 g/dl (32-36); Mean Corpuscular Hemoglobin 27.9 pg (26-34); Mean Corpuscular Volume 90.5 fl (80-100); Mean Platelet Volume 9.3 fl (7.4-10.4); Monocytes Absolute Auto 0.6 K/mm3 (0.1-0.6); Monocytes Percent Auto 8.9 % (2.6-8.5); Neutrophils Absolute Auto 4.7 K/mm3 (1.3-6.7); Neutrophils Percent Auto 71.4 % (45.5-73.1); Platelet Count Result 231 k/mm3 (150-375); Red Blood Count 4.55 M/mm3 (4.6-6.20); Red Cell Distribution Width 14.2 % (11.5-14.5); White Blood Count 6.5 K/mm3 (4.5-10.0)
[2023-10-29 10:19] LABS: Alanine Aminotransferase 11 U/L (6-50); Albumin Level 3.4 g/dL (3.5-5.1); Alkaline Phosphatase 101 U/L (38-126); Anion Gap 2 mmol/L (8-16); Aspartate Amino Transferase 28 U/L (17-59); Bilirubin,Total 0.4 mg/dL (0.2-1.3); Blood Urea Nitrogen 23 mg/dL (9-20); Calcium 8.3 mg/dL (8.4-10.2); Carbon Dioxide 31 mmol/L (22-30); Chloride 106 mmol/L (98-107); Estimated Glomerular Filt Rate > 60; Glucose 89 mg/dL (65-110); Potassium 4.1 mmol/L (3.4-5.0); Sodium 139 mmol/L (137-145)
[2023-10-29 10:37] LABS: Iron 43 ug/dL (49-181); Percent Iron Saturation 13 % (20-50)
[2023-10-30 01:54] LABS: Vitamin D 25 Hydroxy 56.4 ng/mL
== END 2023-10-29 09:35 | disposition home or self-care (01) ==
PROVIDERS: PCP Internal Medicine
DX: E55.9 Vitamin D deficiency, unspecified (principal); N02 Recurrent and persistent hematuria; Z13.228 Encounter for screening for other metabolic disorders; R79.89 Other specified abnormal findings of blood chemistry; E61.1 Iron deficiency
CPT/HCPCS: 36415; 80053; 82306; 82728; 83540; 83550; 85025

== ENCOUNTER 2024-01-06 09:44 | Outpatient (CLI) | payer MEDICARE, SELFPAY ==
[2024-01-06 10:04] LABS: Basophils Percent Auto 0.6 % (0.2-1.2); Eosinophils Absolute Auto 0.3 K/mm3 (0-0.3); Eosinophils Percent Auto 4.8 % (0-4.4); Hematocrit 42.8 % (42.0-52.0); Hemoglobin 13.3 g/dL (14.0-18.0); Immature Granulocyte Absolute 0.02 K/mm3 (0.00-0.031); Immature Granulocyte Percent A 0.3 % (0-0.5); Lymphocytes Absolute Auto 0.97 K/mm3 (0.9-3.2); Lymphocytes Percent Auto 13.7 % (18.3-44.2); Mean Corpuscular HGB Conc 31.1 g/dl (32-36); Mean Corpuscular Volume 86.8 fl (80-100); Mean Platelet Volume 9.5 fl (7.4-10.4); Monocytes Absolute Auto 0.6 K/mm3 (0.1-0.6); Monocytes Percent Auto 7.9 % (2.6-8.5); Neutrophils Absolute Auto 5.2 K/mm3 (1.3-6.7); Neutrophils Percent Auto 72.7 % (45.5-73.1); Platelet Count Result 248 k/mm3 (150-375); Red Blood Count 4.93 M/mm3 (4.6-6.20); Red Cell Distribution Width 15.5 % (11.5-14.5); White Blood Count 7.1 K/mm3 (4.5-10.0)
[2024-01-06 10:33] LABS: Alanine Aminotransferase 16 U/L (6-50); Alkaline Phosphatase 103 U/L (38-126); Anion Gap 6 mmol/L (4-12); Aspartate Amino Transferase 22 U/L (17-59); Bilirubin,Total 0.5 mg/dL (0.2-1.3); Blood Urea Nitrogen 16 mg/dL (9-20); Calcium 9.7 mg/dL (8.4-10.2); Carbon Dioxide 29 mmol/L (22-30); Chloride 106 mmol/L (98-107); Estimated Glomerular Filt Rate > 60; Glucose 104 mg/dL (65-110); Potassium 3.9 mmol/L (3.4-5.0); Sodium 141 mmol/L (137-145)
[2024-01-06 11:39] LABS: Folic Acid 19.3 ng/mL (2.76->20)
[2024-01-06 12:40] LABS: Iron 52 ug/dL (49-181)
[2024-01-06 23:14] LABS: Percent Iron Saturation 16 % (20-50)
== END 2024-01-06 09:45 | disposition home or self-care (01) ==
LOC: ANHLAB 09:46
PROVIDERS: PCP Internal Medicine; Visit Provider Internal Medicine Hematology & Oncology
DX: D50.9 Iron deficiency anemia, unspecified (principal)
CPT/HCPCS: 36415; 80053; 82607; 82728; 82746; 83540; 83550; 85025

== ENCOUNTER 2024-04-11 09:43 | Outpatient (CLI) | payer MEDICARE, SELFPAY ==
[2024-04-11 10:31] LABS: Basophils Percent Auto 0.6 % (0.2-1.2); Eosinophils Absolute Auto 0.4 K/mm3 (0-0.3); Eosinophils Percent Auto 5.3 % (0-4.4); Hematocrit 45.9 % (42.0-52.0); Hemoglobin 14.4 g/dL (14.0-18.0); Immature Granulocyte Absolute 0.02 K/mm3 (0.00-0.031); Immature Granulocyte Percent A 0.3 % (0-0.5); Lymphocytes Absolute Auto 1.32 K/mm3 (0.9-3.2); Lymphocytes Percent Auto 18.4 % (18.3-44.2); Mean Corpuscular HGB Conc 31.4 g/dl (32-36); Mean Corpuscular Hemoglobin 26.7 pg (26-34); Mean Corpuscular Volume 85.2 fl (80-100); Mean Platelet Volume 9.8 fl (7.4-10.4); Monocytes Absolute Auto 0.7 K/mm3 (0.1-0.6); Monocytes Percent Auto 9.2 % (2.6-8.5); Neutrophils Absolute Auto 4.8 K/mm3 (1.3-6.7); Neutrophils Percent Auto 66.2 % (45.5-73.1); Platelet Count Result 223 k/mm3 (150-375); Red Blood Count 5.39 M/mm3 (4.6-6.20); Red Cell Distribution Width 15.2 % (11.5-14.5); White Blood Count 7.2 K/mm3 (4.5-10.0)
[2024-04-11 10:41] LABS: Alanine Aminotransferase 15 U/L (6-50); Albumin Level 4.1 g/dL (3.5-5.1); Alkaline Phosphatase 121 U/L (38-126); Anion Gap 7 mmol/L (4-12); Aspartate Amino Transferase 27 U/L (17-59); Bilirubin,Total 0.5 mg/dL (0.2-1.3); Blood Urea Nitrogen 18 mg/dL (9-20); Calcium 8.8 mg/dL (8.4-10.2); Carbon Dioxide 31 mmol/L (22-30); Chloride 102 mmol/L (98-107); Cholesterol 138 mg/dL (0-200); Estimated Glomerular Filt Rate > 60; Glucose 86 mg/dL (65-110); HDL Direct 45 mg/dL; Potassium 3.8 mmol/L (3.4-5.0); Sodium 140 mmol/L (137-145); Triglycerides 98 mg/dL (<150)
[2024-04-11 10:51] LABS: LDL Cholesterol Direct 79 mg/dL
[2024-04-11 11:11] LABS: Prostate Specific Antigen 0.6 ng/mL (< OR = 4.0)
[2024-04-11 11:36] LABS: Iron 58 ug/dL (49-181); Percent Iron Saturation 16 % (20-50); Vitamin D 25 Hydroxy 94.9 ng/mL
[2024-04-12 18:09] LABS: Hemoglobin A1C 5.4 % (<5.7)
== END 2024-04-11 09:44 | disposition home or self-care (01) ==
PROVIDERS: PCP Internal Medicine; Visit Provider Internal Medicine
DX: Z12.5 Encounter for screening for malignant neoplasm of prostate (principal); D50.9 Iron deficiency anemia, unspecified; E51.9 Thiamine deficiency, unspecified; E53.0 Riboflavin deficiency; E53.8 Deficiency of other specified B group vitamins; E55.9 Vitamin D deficiency, unspecified; F11.90 Opioid use, unspecified, uncomplicated; R31.9 Hematuria, unspecified; Z79.899 Other long term (current) drug therapy; Z87.891 Personal history of nicotine dependence
CPT/HCPCS: 36415; 80053; 80061; 82306; 82728; 83036; 83540; 83550; 84153; 85025; G0103

== ENCOUNTER 2024-04-26 11:31 | Outpatient (CLI) | payer MEDICARE, SELFPAY ==
--- NOTE | ~2024-04-26 | CT_ITS ---
CT brain wo/w con Ordering provider: Vickey Hernandez MD History: 64 years Male with . Z86.73 - Personal history of transient ischemic attack (T... . Comparison: July 16, 2022 Technique: CT of the head without contrast. Radiation reduction technique utilized. The dose-length product was 1210.67 mGy-cm. 100 ML Omnipaque 350 was given IV. FINDINGS: BRAIN PARENCHYMA AND CSF SPACES: Mild leukoaraiosis and diffuse cortical atrophy. Mild atheromatous d isease. Old lacunar infarct is seen in the left basal ganglia, right frontal white matter and teodoro. N o midline shift, mass effect or hemorrhage. The brain parenchyma and CSF spaces are otherwise normal . Empty sella turcica. No enhancement seen. VISUALIZED PARANASAL SINUSES: Well aerated. MASTOIDS: Well aerated. BONES: The bones appear intact. SOFT TISSUES: Visualized nasopharynx is normal. Superficial soft tissues are normal. IMPRESSION: No acute intracranial findings. Nonenhancing lesion seen. Reviewed, dictated and finalized at location A.
== END 2024-04-26 11:32 | disposition home or self-care (01) ==
LOC: ANHIMG 11:32
PROVIDERS: PCP Internal Medicine; Visit Provider Internal Medicine
DX: R29.810 Facial weakness (principal); R51.9 Headache, unspecified; Z86.73 Personal history of transient ischemic attack (TIA), and cerebral infarction without residual deficits
CPT/HCPCS: 70470; Q9967

== ENCOUNTER 2024-05-09 09:49 | Outpatient (CLI) | payer MEDICARE, MEDICAID, SELFPAY ==
--- NOTE | 2024-05-09 09:55 | ECHO_ITS ---
Patient Info Name: Kiran Smith Age: 64 years : 1960 Gender: Male Ht: 69 in Wt: 168 lbs BSA: 1.93 m2 HR: 75 bpm BP: 132 / 85 mmHg Heart Rhythm: Sinus Rhythm Technical Quality: Good Exam Date: 05/09/2024 10:21 AM Exam Location: Echo Lab Patient Status: Outpatient Admit Date: 05/09/2024 Staff Ordering Physician: RobShara MD Percussion Instructor: Beverly Fulton RD Attending Provider: ArashShara MD Exam Type: CA echo doppler w bubble study Study Info Indications - HISTORY OF STROKE Complete two-dimensional, color flow and Doppler transthoracic echocardiogram is performed with agitated saline. Summary 1. Left ventricular chamber dimension is normal. 2. Left ventricular systolic function is normal, estimated at 60-65%. 3. The left ventricular diastolic function is grade I diastolic dysfunction. 4. E/e' 6 is not elevated. 5. There is trace tricuspid valve regurgitation. 6. No pulmonary hypertension, estimated pulmonary arterial systolic pressure is 19 mmHg. Left Ventricle E/e' 6 is not elevated. Left ventricular chamber dimension is normal. Left ventricular systolic function is normal, estimated at 60-65%. The left ventricular diastolic function is grade I diastolic dysfunction. Right Ventricle Right ventricular systolic function is normal and with normal TAPSE 3.2 cm. Right ventricular chamber dimension is normal. Left Atria Left atrial chamber dimension is normal. Right Atria Right atrial chamber dimension is normal. Atrial Septum Agitated saline injection with and without valsalva maneuver opacified right side cardiac chambers without shunt to left side cardiac chambers. Intact interatrial septum visualized by 2D and agitated saline imaging. Aortic Valve The aortic valve is trileaflet. There is no aortic valve stenosis. There is no aortic valve regurgitation. Pulmonic Valve There is no pulmonic regurgitation. Mitral Valve There is no mitral valve stenosis. There is no mitral valve regurgitation. Tricuspid Valve There is trace tricuspid valve regurgitation. No pulmonary hypertension, estimated pulmonary arterial systolic pressure is 19 mmHg. Pericardium/Pleural There is no pericardial effusion. Inferior Vena Cava Normal inferior vena cava with >50% collapse upon inspiration consistent with normal right atrial pressure, 5 mmHg. Aorta The aortic root size at the sinus of Valsalva is normal. Left Ventricular Outflow Tract Name Value Normal LVOT 2D LVOT Diameter 2.0 cm LVOT Doppler LVOT Peak Gradient 2 mmHg LVOT Mean Gradient 2 mmHg LVOT VTI 19 cm LVOT VTI/AV VTI Ratio 1.0 LVOT Stroke Volume 61 ml LVOT CO 4.0 l/min LVOT CI 2.0 l/min/m2 Pulmonic Valve Name Value Normal
== END 2024-05-09 09:50 | disposition home or self-care (01) ==
LOC: ANHCARD 09:51
PROVIDERS: PCP Internal Medicine; Visit Provider Student in an Organized Health Care Education/Training Program
DX: I63.9 Cerebral infarction, unspecified (principal)
CPT/HCPCS: 93306; 96375

== ENCOUNTER 2024-07-10 10:26 | Outpatient (CLI) | payer MEDICARE, MEDICAID, SELFPAY ==
--- NOTE | 2024-07-13 11:47 | WPDHOLTEREM ---
Holter/Event Monitor Holter/Event Monitor Date of procedure: 07/10/24 Holter/Event Procedure: 48 Hr Holter Monitor Indications: TIA Conclusion: 1. 48 hour holter monitor on 07/10/24. 2. Underlying rhythm is sinus rhythm. HR range 50-135 bpm; average HR 73 bpm. 3. There are 27 premature supraventricular complexes and 1 supraventricular couplet. No supraventricular tachycardia. 4. There are 734 premature ventricular complexes. No ventricular tachycardia. 5. No sinoatrial or atrioventricular blocks. No significant pauses greater than 2 seconds. 6. Patient reports symptoms of dizziness, shaking, lost of balance but did not indicate a time and therefore unable to correlate with a strip.
== END 2024-07-10 10:27 | disposition home or self-care (01) ==
LOC: ANHCARD 10:27
PROVIDERS: PCP Internal Medicine; Visit Provider Internal Medicine
DX: I49.9 Cardiac arrhythmia, unspecified (principal); Z86.73 Personal history of transient ischemic attack (TIA), and cerebral infarction without residual deficits
CPT/HCPCS: 93225; 93226

== ENCOUNTER 2024-07-10 10:29 | Outpatient (CLI) | payer MEDICARE, MEDICAID, SELFPAY ==
--- NOTE | ~2024-07-10 | CT_ITS ---
Clinical Indication: Lung cancer CT Scan of the Chest with Contrast: Technique: Contiguous sections were acquired throughout the chest after intravenous administration of 75 cc of Omnipaque 350. Dose reduction technique was used on this scan by utilizing automated exposu re control and iterative reconstruction technique. The dose-length product (DLP) was 178.75 mGy-cm. COMPARISON: 02/06/2022 Findings: There is no evidence of any significant mediastinal, hilar or axillary lymphadenopathy. There is no f illing defect in the pulmonary arterial tree to suggest pulmonary embolus. There is no evidence of ao rtic dissection or aneurysm. There is no evidence of pleural or pericardial effusion. Status post right middle lobectomy. There is biapical scarring, unchanged. Paraseptal emphysema is un changed, predominantly in the upper lobes. Stable scarring at the inferior right upper lobe. There is left basilar consolidation, presumably atelectasis. Images through the upper abdomen reveal probable prior bariatric surgery. There are mild compression fractures of L1 and L2, age indeterminate. Impression: No evidence of active malignancy or metastatic disease. Status post right middle lobectomy. Emphysema and scarring, as above. Probable left basilar atelectasis versus possibly pneumonia. Compression fractures of L1-L2, age indeterminate, new since prior exam. Reviewed, dictated and finalized at location . Impression: No evidence of active malignancy or metastatic disease. Status post right middl e lobectomy. Emphysema and scarring, as above. Probable left basilar atelectasis versus possibly pneumonia. Compression fractures of L1-L2, age indeterminate, new since prior exam.
[2024-07-10 11:30] LABS: Estimated Glomerular Filt Rate > 60
== END 2024-07-10 10:30 | disposition home or self-care (01) ==
LOC: ANHIMG 10:30
PROVIDERS: PCP Internal Medicine; Visit Provider Internal Medicine Hematology & Oncology
DX: C34.91 Malignant neoplasm of unspecified part of right bronchus or lung (principal); S32.010A Wedge compression fracture of first lumbar vertebra, initial encounter for closed fracture; S32.020A Wedge compression fracture of second lumbar vertebra, initial encounter for closed fracture; X58.XXXA Exposure to other specified factors, initial encounter
CPT/HCPCS: 71260; 93225; 93226; Q9967

== ENCOUNTER 2024-07-12 13:14 | Outpatient (CLI) | payer MEDICARE, MEDICAID, SELFPAY ==
--- NOTE | ~2024-07-12 | XR_ITS ---
AP view of the pelvis and AP and lateral views of the left hip Clinical history: Pain Findings: No acute fracture or dislocation is seen. Osseous alignment is anatomic. Bilateral hip and SI joint spaces are preserved. Lumbosacral spinal fixation hardware present. Soft tissues are unremar kable. Impression: No significant abnormality is seen. Reviewed, dictated and finalized at location . Impression: No significant abnormality is seen.
--- NOTE | ~2024-07-12 | XR_ITS ---
XR knee RT 3V 07/12/2024 13:46 Indication: Recurrent falls. Right knee pain. Procedure: 3 views right knee Comparison: No prior studies for comparison. Findings: Mild osteoarthritis of the right knee. Chondrocalcinosis. Osteopenia. No fracture or trauma tic malalignment. No effusion. Impression: 1: Mild osteoarthritis of the right knee. 2: Chondrocalcinosis. Reviewed, dictated and finalized at location B. Impression: 1: Mild osteoarthritis of the right knee. 2: Chondrocalcinosis.
--- NOTE | ~2024-07-12 | XR_ITS ---
Lumbosacral Spine: AP and lateral views Clinical History: Pain Findings: There is posterior and interbody fusion extending from L3 through S1. There is severe degen erative disc narrowing at L2-L3. There is mild degenerative disc narrowing at L1-L2. The sacroiliac j oints are normally outlined. Impression: Posterior and interbody fusion from L3 through S1. Severe degenerative disc narrowing at L2-L3. Reviewed, dictated and finalized at [facility]. Impression: Posterior and interbody fusion from L3 through S1. Severe degenerative disc narrowing at L2-L3.
== END 2024-07-12 13:15 | disposition home or self-care (01) ==
LOC: ANHIMG 13:19
PROVIDERS: PCP Internal Medicine; Visit Provider Internal Medicine
DX: M17.11 Unilateral primary osteoarthritis, right knee (principal); M11.261 Other chondrocalcinosis, right knee; M51.369 Other intervertebral disc degeneration, lumbar region without mention of lumbar back pain or lower extremity pain; M25.552 Pain in left hip; Z98.1 Arthrodesis status
CPT/HCPCS: 72100; 73502; 73562

== ENCOUNTER 2024-07-17 14:23 | Outpatient (CLI) | payer MEDICARE, MEDICAID, SELFPAY ==
[2024-07-17 14:42] LABS: Basophils Percent Auto 0.5 % (0.2-1.2); Eosinophils Absolute Auto 0.3 K/mm3 (0-0.3); Eosinophils Percent Auto 4.8 % (0-4.4); Hemoglobin 13.7 g/dL (14.0-18.0); Immature Granulocyte Absolute 0.02 K/mm3 (0.00-0.031); Immature Granulocyte Percent A 0.3 % (0-0.5); Lymphocytes Absolute Auto 1.11 K/mm3 (0.9-3.2); Mean Corpuscular HGB Conc 31.1 g/dl (32-36); Mean Corpuscular Hemoglobin 27.2 pg (26-34); Mean Corpuscular Volume 87.3 fl (80-100); Mean Platelet Volume 9.4 fl (7.4-10.4); Monocytes Absolute Auto 0.7 K/mm3 (0.1-0.6); Monocytes Percent Auto 11.2 % (2.6-8.5); Neutrophils Absolute Auto 4.3 K/mm3 (1.3-6.7); Neutrophils Percent Auto 66.2 % (45.5-73.1); Platelet Count Result 231 k/mm3 (150-375); Red Blood Count 5.04 M/mm3 (4.6-6.20); Red Cell Distribution Width 16.5 % (11.5-14.5); White Blood Count 6.5 K/mm3 (4.5-10.0)
[2024-07-17 14:47] LABS: Blood Urea Nitrogen 16 mg/dL (8-26); Carbon Dioxide 28 mmol/L (22-30); Chloride 105 mmol/L (98-109); Estimated Glomerular Filt Rate > 60; Glucose 86 mg/dL (70-105); Ionized Calcium (POC) 1.19 mmol/L (1.11-1.31); Potassium 3.9 mmol/L (3.5-4.9); Sodium 147 mmol/L (138-146)
[2024-07-17 16:28] LABS: Iron 53 ug/dL (49-181)
[2024-07-17 16:31] LABS: Alanine Aminotransferase 14 U/L (6-50); Albumin Level 3.8 g/dL (3.5-5.1); Alkaline Phosphatase 121 U/L (38-126); Anion Gap 6 mmol/L (4-12); Aspartate Amino Transferase 25 U/L (17-59); Bilirubin,Total 0.3 mg/dL (0.2-1.3); Blood Urea Nitrogen 17 mg/dL (9-20); Carbon Dioxide 31 mmol/L (22-30); Chloride 106 mmol/L (98-107); Estimated Glomerular Filt Rate > 60; Glucose 88 mg/dL (65-110); Potassium 3.9 mmol/L (3.4-5.0); Sodium 143 mmol/L (137-145)
[2024-07-17 16:38] LABS: Percent Iron Saturation 16 % (20-50)
[2024-07-17 17:35] LABS: Folic Acid 17.9 ng/mL (2.76->20)
== END 2024-07-17 14:24 | disposition home or self-care (01) ==
LOC: ANHLAB 14:29
PROVIDERS: PCP Internal Medicine; Visit Provider Internal Medicine Hematology & Oncology
DX: D50.9 Iron deficiency anemia, unspecified (principal)
CPT/HCPCS: 36415; 80047; 80053; 82607; 82728; 82746; 83540; 83550; 85025

== ENCOUNTER 2024-09-11 12:36 | Outpatient (CLI) | payer MEDICARE, MEDICAID, SELFPAY ==
[2024-09-11 13:28] LABS: Basophils Absolute Auto 0.1 K/mm3 (0.0-0.1); Basophils Percent Auto 0.7 % (0.2-1.2); Eosinophils Absolute Auto 0.2 K/mm3 (0-0.3); Eosinophils Percent Auto 2.6 % (0-4.4); Hematocrit 45.5 % (42.0-52.0); Hemoglobin 14.2 g/dL (14.0-18.0); Immature Granulocyte Absolute 0.03 K/mm3 (0.00-0.031); Immature Granulocyte Percent A 0.4 % (0-0.5); Lymphocytes Absolute Auto 1.14 K/mm3 (0.9-3.2); Lymphocytes Percent Auto 14.8 % (18.3-44.2); Mean Corpuscular HGB Conc 31.2 g/dl (32-36); Mean Corpuscular Volume 86.5 fl (80-100); Mean Platelet Volume 9.7 fl (7.4-10.4); Monocytes Absolute Auto 0.5 K/mm3 (0.1-0.6); Monocytes Percent Auto 6.8 % (2.6-8.5); Neutrophils Absolute Auto 5.7 K/mm3 (1.3-6.7); Neutrophils Percent Auto 74.7 % (45.5-73.1); Platelet Count Result 217 k/mm3 (150-375); Red Blood Count 5.26 M/mm3 (4.6-6.20); Red Cell Distribution Width 15.2 % (11.5-14.5); White Blood Count 7.7 K/mm3 (4.5-10.0)
[2024-09-11 13:52] LABS: Alanine Aminotransferase 17 U/L (6-50); Albumin Level 3.8 g/dL (3.5-5.1); Alkaline Phosphatase 101 U/L (38-126); Anion Gap 4 mmol/L (4-12); Aspartate Amino Transferase 30 U/L (17-59); Bilirubin,Total 0.4 mg/dL (0.2-1.3); Blood Urea Nitrogen 21 mg/dL (9-20); Calcium 8.9 mg/dL (8.4-10.2); Carbon Dioxide 32 mmol/L (22-30); Chloride 107 mmol/L (98-107); Cholesterol 112 mg/dL (0-200); Estimated Glomerular Filt Rate > 60; Glucose 77 mg/dL (65-110); HDL Direct 46 mg/dL; Potassium 3.6 mmol/L (3.4-5.0); Sodium 143 mmol/L (137-145); Triglycerides 109 mg/dL (<150)
[2024-09-11 13:53] LABS: Add Urine Microscopic? YES; Appearance Urine Clear (Clear); Bilirubin Urine 1+ (Negative); Blood Urine Negative (Negative); Color Urine Dark Yellow (Yellow); Glucose Urine UA Negative (Negative); Ketones Urine Negative (Negative); Leukocyte Esterase Ur Negative LEU/UL (Negative); Nitrate Urine Negative (Negative); Protein Urine Negative (Negative); Specific Grav Ur 1.026 (1.001-1.035)
[2024-09-11 14:06] LABS: LDL Cholesterol Direct 40 mg/dL
[2024-09-11 14:10] LABS: Hemoglobin A1C 5.6 % (<5.7)
[2024-09-11 14:20] LABS: Thyroid Stimulating Hormone 0.477 uIU/mL (0.465-4.680)
[2024-09-11 14:49] LABS: Free T4 Free Thyroxine 0.71 ng/dL (0.78-2.19)
[2024-09-11 14:56] LABS: Folic Acid 14.4 ng/mL (2.76->20)
== END 2024-09-11 12:37 | disposition home or self-care (01) ==
PROVIDERS: PCP Internal Medicine; Visit Provider Internal Medicine
DX: R94.6 Abnormal results of thyroid function studies (principal); E53.8 Deficiency of other specified B group vitamins; E55.9 Vitamin D deficiency, unspecified; Z79.899 Other long term (current) drug therapy; Z13.1 Encounter for screening for diabetes mellitus; Z13.220 Encounter for screening for lipoid disorders
CPT/HCPCS: 36415; 80053; 80061; 81001; 82306; 82607; 82746; 83036; 84439; 84443; 85025

== ENCOUNTER 2024-11-13 18:37 | Inpatient (IN) | payer MEDICARE, MEDICAID, SELFPAY ==
--- NOTE | ~2024-11-13 | XR_ITS ---
CHEST RADIOGRAPH CLINICAL HISTORY: DAT . COMPARISON: 04/07/2023 TECHNIQUE: Single portable view of the chest. Examination is markedly limited secondary to patient rotation (towards their left side). FINDINGS Thoracic spinal leads project over the cardiomediastinal silhouette. Hiatal hernia is suspected. The remainder of the cardiomediastinal silhouette is otherwise unremarkable. Blunting of the right costophrenic sulcus suggesting a small right-sided pleural effusion. Remainder of the lungs are clear. IMPRESSION: Small right-sided pleural effusion without focal infiltrate. Reviewed, dictated and finalized at location A. CONTROL REPRESENTATIVE
--- NOTE | ~2024-11-13 | CT_ITS ---
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 Personal history of right-sided lung cancer po st right middle lobectomy in 2019 with negative margins. TECHNIQUE: Computed tomographic angiography (CTA) of the chest was performed with 100 mL Omnipaque-35 0 intravenous contrast. The dose-length product was 399.78 mGy-cm. Maximum intensity projection 3D-re constructions of the aorta and other arteries were constructed by the technologist on a separate work station. COMPARISON: 07/10/2024 FINDINGS/OBSERVATIONS: PULMONARY ARTERIES: No filling defect is identified within the main or proximal pulmonary artery. The main pulmonary artery is not enlarged. THORACIC AORTA: No aneurysmal dilatation or dissection is present. The great vessels are intact LUNGS: Patchy groundglass opacification detected bilaterally, possibly infectious in origin. The left descending bronchus is largely obscured for which direct visualization is recommended. Post obstructive consolidation is noted, involving the entirety of the left lower lobe. Panlobular emphysematous disease is also noted. Biapical scarring is present. Postoperative change within the right hilum, consistent with patient's history. MEDIASTINUM: Mediastinal lymphadenopathy is identified within the aortopulmonary window and the left paratracheal region. The largest lymph node is within the left paratracheal region measuring 12 mm in short axis dimension . Multiple calcified lymph nodes are also detected within the mediastinum, suggesting prior granulomato us disease. BONES OF THE CHEST: No acute fracture. No significant degenerative disease. No lytic or blastic lesions. Leads from a stimulator device are identified within the canal. HEART: The heart is borderline enlarged, without pericardial effusion. IMPRESSION: No pulmonary embolus. No thoracic aortic dissection. Obstruction of the left lower lobe bronchus with postobstructive consolidation for which direct visua lization is recommended. Additional findings within the remainder of the left as well as the remaining right lung for which in fectious etiology is favored. Reviewed, dictated and finalized at location A. TRIMMER MECHANIC IMPRESSION: No pulmonary embolus. No thoracic aortic dissection. Obstruction of the left lower lobe bronchus with postobstructive consolidation for which direct visualization is recommended. Additional findings within the remainder of the left as well as the remaining r ight lung for which infectious etiology is favored.
--- NOTE | ~2024-11-13 | XR_ITS ---
Portable chest x-ray Comparison: 11/26/2024 Clinical History: Pneumonia Findings: Extensive left lung consolidation is unchanged. Hazy right basilar airspace disease presen t. Cardiomediastinal silhouette is stable. Bones and soft tissues are unremarkable. Impression: Stable extensive left lung consolidation and mild hazy right basilar airspace disease. Reviewed, dictated and finalized at [facility]. CLOCK REPAIRER Impression: Stable extensive left lung consolidation and mild hazy right basilar airspace d isease.
--- NOTE | ~2024-11-13 | CT_ITS ---
EXAMINATION:CT diagnostic chest wo con DATE: 11/27/2024 12:20 INDICATION: Pneumonia. TECHNIQUE: Computed tomography (CT) of the chest was performed without intravenous contrast. Automate d exposure control and iterative reconstruction technique were employed. The dose-length product (DLP ) was 431.33 mGy-cm. COMPARISON: Chest CT 11/24/2024, 07/10/2024, 02/04/21 FINDINGS: There is mild emphysema. There are groundglass opacities and septal thickening in right upp er lobe and right lower lobe. 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 There is volume loss of le ft hemithorax. There is mucous plugging in left mainstem bronchus. There are airspace opacities and n odules throughout left lung. A calcified left lung nodule and calcified left hilar lymph nodes are co nsistent with old granulomatous disease. There is a 14 mm nodule in right lower lobe. There are trace pleural effusions. The heart size is normal. There are coronary artery calcifications. No pericardia l effusion. There is mild mediastinal lymphadenopathy, likely reactive. Calcifications in the liver a nd spleen are consistent with old granulomatous disease. There is a 3.5 cm cyst in right kidney. Ther e are surgical changes of the stomach. Epidural electrodes are noted. There is severe cervical spondy losis and mild thoracic spondylosis. There are chronic compression fractures of T12 and L1. There is mild chronic anterior wedging of multiple vertebral bodies. IMPRESSION: 1. Widespread pneumonia, left worse than right. 2. Mucous plugging in left mainstem bronchus. 3. 14 mm nodule in right lung lower lobe suspicious for primary bronchogenic carcinoma or metastatic disease. 4. Mild emphysema. Reviewed, dictated and finalized at location A. SAGE JUDGE IMPRESSION: 1. Widespread pneumonia, left worse than right. 2. Mucous plugging in left mainstem bronchus. 3. 14 mm nodule in right lung lower lobe suspicious for primary bronchogenic ca rcinoma or metastatic disease. 4. Mild emphysema.
--- NOTE | ~2024-11-13 | XR_ITS ---
Portable chest x-ray Comparison: 11/21/2024 Clinical History: Pneumonia Findings: There is extensive bibasilar/perihilar airspace disease. Probable minimal pleural effusion s. Cardiomediastinal silhouette is stable. Bones and soft tissues are unremarkable. Impression: Extensive bibasilar/perihilar space disease. Correlate for pulmonary edema versus pneumonia. Minimal pleural effusions. Reviewed, dictated and finalized at location . L DISTRIBUTOR Impression: Extensive bibasilar/perihilar space disease. Correlate for pulmonary edema vers us pneumonia. Minimal pleural effusions.
--- NOTE | ~2024-11-13 | XR_ITS ---
EXAMINATION: XR chest 1V portable DATE: 11/26/2024 05:49 INDICATION: Pneumonia. Left lower lobe atelectasis. TECHNIQUE: A single frontal view of the chest was obtained. COMPARISON: Chest single view 11/2624, chest CT 11/24/2024 FINDINGS: There are lucencies in the lungs, consistent with emphysema. There are airspace opacities i n right mid and lower lung zones and all left lung zones. There is volume loss of left hemithorax. No pneumothorax. There is a small left pleural effusion. The heart size is normal. Epidural electrodes are noted. Surgical clips overlie right upper chest. IMPRESSION: 1. Diffuse lung disease, worsened from 11/23/2024, consistent with pneumonia. Left lung volume loss bey ggests a component of atelectasis. 2. Worsened small left pleural effusion. 3. Emphysema. Reviewed, dictated and finalized at location A. E REPORT DEVELOPER IMPRESSION: 1. Diffuse lung disease, worsened from 11/23/2024, consistent with pneumonia. Le ft lung volume loss suggests a component of atelectasis. 2. Worsened small left pleural effusion. 3. Emphysema.
--- NOTE | ~2024-11-13 | CT_ITS ---
EXAMINATION:CT diagnostic chest wo con DATE: 11/20/2024 14:32 INDICATION: Pneumonia. TECHNIQUE: Computed tomography (CT) of the chest was performed without intravenous contrast. Automate d exposure control and iterative reconstruction technique were employed. The dose-length product (DLP ) was 198.38 mGy-cm. COMPARISON: Chest CT 11/13/2024 FINDINGS: There is mild emphysema. There is elevation of left hemidiaphragm. There are widespread nader undglass opacities and airspace opacities in right upper lobe and right lower lobe. 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 There are airspace opacities with volume loss in inferior left lung. Ther e are centrilobular nodules and tree-in-bud opacities in left upper lobe and left lower lobe. A calci fied left lung nodule and calcified left hilar and mediastinal lymph nodes are consistent with old gr anulomatous disease. There is bilateral pleural thickening. No significant pleural effusion. There is left atrial enlargement of the heart. There are coronary artery calcifications. No pericardial effus ion. Calcifications in the liver and spleen are consistent with old granulomatous disease. There is a 3.8 cm cyst in right kidney. There are surgical changes of the stomach. Epidural electrodes are note d. There is severe cervical spondylosis and mild thoracic spondylosis. There is mild chronic anterior wedging of T10-L1 vertebral bodies. IMPRESSION: 1. Diffuse lung disease with worsening on the right and improvement on the left, consistent with pneu monia. 2. Mild emphysema. Reviewed, dictated and finalized at location A. ER OPERATOR IMPRESSION: 1. Diffuse lung disease with worsening on the right and improvement on the left , consistent with pneumonia. 2. Mild emphysema.
--- NOTE | ~2024-11-13 | CT_ITS ---
Clinical Indication: Shortness of breath, tachycardia CT Scan of the Chest with Contrast: Technique: Contiguous sections were acquired throughout the chest after intravenous administration of 100 cc of Omnipaque 350. Dose reduction technique was used on this scan by utilizing automated expos ure control and iterative reconstruction technique. The dose-length product (DLP) was 375.79 mGy-cm. COMPARISON: 11/20/2024 Findings: There is no evidence of any significant mediastinal, hilar or axillary lymphadenopathy. There is no f illing defect in the pulmonary arterial tree to suggest pulmonary embolus. There is no evidence of ao rtic dissection or aneurysm. There is no evidence of pleural or pericardial effusion. Extensive ground glass opacity and patchy consolidation the right lung is overall mildly improved fro m prior exam. There is complete left lower lobe atelectasis. Patchy tree-in-bud opacities or nodulari ty in the left upper lobe are again present, overall similar to prior exam. There is probable backgro und chronic interstitial change at the right lung base, right lower lobe. There is mild emphysema. Images through the upper abdomen reveal no abnormalities. Stable mild T12 compression fracture. Impression: No evidence of pulmonary embolus, aortic dissection, or aortic aneurysm. Mild interval improvement in extensive right lung pneumonia/groundglass pulmonary disease. Complete left lower lobe atelectasis. Patchy small airways infection throughout the left upper lobe with extensive tree-in-bud opacities an d nodularity similar to prior exam. Probable underlying chronic interstitial change extensively in the right lung base, especially right lower lobe. Mild emphysema. Reviewed, dictated and finalized at location M. UCT MARKETING SPECIALIST Impression: No evidence of pulmonary embolus, aortic dissection, or aortic aneurysm. Mild interval improvement in extensive right lung pneumonia/groundglass pulmona ry disease. Complete left lower lobe atelectasis. Patchy small airways infection throughout the left upper lobe with extensive tr ee-in-bud opacities and nodularity similar to prior exam. Probable underlying chronic interstitial change extensively in the right lung b ase, especially right lower lobe. Mild emphysema.
--- NOTE | ~2024-11-13 | XR_ITS ---
EXAMINATION: XR chest 1V portable DATE: 11/17/2024 06:13 INDICATION: Shortness of breath. TECHNIQUE: A single frontal view of the chest was obtained. COMPARISON: Chest view 11/15/2024, 11/13/2024 FINDINGS: There are airspace opacities in all right lung zones and in left lower lobe. There are scat tered nodules in left upper lobe. No pleural effusion or pneumothorax. The heart size is normal. Cathi ined epidural electrodes are noted. There are surgical clips at right lung apex. IMPRESSION: 1. Worsened diffuse lung disease, consistent with pneumonia. Reviewed, dictated and finalized at location A. CTURAL METAL FABRICATOR APPRENTICE
--- NOTE | ~2024-11-13 | XR_ITS ---
XR chest 1V portable 11/15/2024 08:36 Indication: Influenza Procedure: AP portable chest Comparison: 01/07/2023 Findings: Heart size normal. Mild interstitial edema. No significant pleural effusion. No pneumothora x. No acute osseous abnormality. Impression: 1: Cardiomegaly with interstitial edema. Reviewed, dictated and finalized at location [] NOSE AND THROAT SPECIALIST Impression: 1: Cardiomegaly with interstitial edema.
--- NOTE | ~2024-11-13 | US_ITS ---
EXAMINATION: US venous doppler [facility] DATE: 11/20/2024 19:44 INDICATION: High oxygen requirement, lower limb pain, concern for DVT. TECHNIQUE: Grayscale images without and with compression and Doppler images of the bilateral lower ex tremity veins were obtained. COMPARISON: None FINDINGS: The right common femoral vein, profunda (deep) femoral vein, femoral vein, popliteal vein, peroneal v ein, posterior tibial veins, gastrocnemius vein, and greater saphenous vein are patent. The left common femoral vein, profunda (deep) femoral vein, femoral vein, popliteal vein, peroneal v ein, posterior tibial veins, gastrocnemius vein, and greater saphenous vein are patent. IMPRESSION: Patent bilateral lower extremity veins. No evidence of deep venous thrombosis. Reviewed, dictated and finalized at location K. AD MACHINE OPERATOR
--- NOTE | ~2024-11-13 | XR_ITS ---
Portable chest x-ray Comparison: 11/20/2024 Clinical History: Shortness of breath Findings: There is extensive right basilar and right perihilar airspace consolidation, similar to pr ior exam. Probable left basilar atelectatic change.. Minimal right pleural effusion. Cardiomediastina l silhouette is stable. Bones and soft tissues are unremarkable. Impression: Extensive right basilar and right perihilar pneumonia. Minimal right pleural effusion. Minimal left basilar atelectasis. Reviewed, dictated and finalized at [facility]. UI DEVELOPER Impression: Extensive right basilar and right perihilar pneumonia. Minimal right pleural effusion. Minimal left basilar atelectasis.
--- NOTE | ~2024-11-13 | XR_ITS ---
EXAMINATION: XR chest 1V portable Exam Date/Time: 11/20/2024 22:07 BOILER CONTROL ROOM OPERATOR HISTORY: INCREASED WORK OF BREATHING Comparison: 11/19/2024; CT chest 11/20/2024. RESULT: Lines, tubes, and devices: Epidural electrodes. Lungs and pleura: Similar diffuse ground glass opacities in the right lung with subsegmental bibasil ar airspace disease, slightly increased in the right lung base. Cardiomediastinal silhouette: Stable. Other: No acute osseous or upper abdominal finding. IMPRESSION: Increasing subsegmental right basilar atelectasis/consolidation, otherwise unchanged pulmonary opacit ies. Reviewed, dictated and finalized at location K. ER CONTROL ROOM OPERATOR IMPRESSION: Increasing subsegmental right basilar atelectasis/consolidation, otherwise unch anged pulmonary opacities.
--- NOTE | ~2024-11-13 | XR_ITS ---
CHEST RADIOGRAPH CLINICAL HISTORY: influenza . COMPARISON: 11/17/2024 TECHNIQUE: Single portable view of the chest. FINDINGS The cardiomediastinal silhouette is enlarged, unchanged. Improved aeration of the right hemithorax when compared with prior. Extensive infiltration persists. The left hemithorax is clear. IMPRESSION: Improved aeration of the right hemithorax when compared with prior. Extensive infiltration persists. The left hemithorax remains clear. Reviewed, dictated and finalized at location A. MOBILE LIBRARIAN
--- NOTE | ~2024-11-13 | XR_ITS ---
Portable chest x-ray Comparison: 11/22/2024 Clinical History: Pulmonary edema Findings: Extensive hazy and interstitial disease probably involving the right lung is similar to pr ior exam. Minimal haziness left lung base. Stable elevation left hemidiaphragm. Cardiomediastinal si lhouette is stable. Bones and soft tissues are unremarkable. Impression: Hazy and interstitial pulmonary disease, right significantly worse than left, is unchanged from prior exam. Correlate for asymmetric pulmonary edema versus pneumonia. Reviewed, dictated and finalized at location M. ER SERVICES COORDINATOR Impression: Hazy and interstitial pulmonary disease, right significantly worse than left, i s unchanged from prior exam. Correlate for asymmetric pulmonary edema versus pn eumonia.
[2024-11-13 18:44] VITALS: BP 132/81; PULSE 71; RESP 20; TEMP 36.6; O2SAT 94
--- NOTE | 2024-11-13 18:48 | ECG_ITS ---
Test Date: 2024-11-13 18:58:56 Measurements Intervals [place] Rate: 67 P: 70 CO: 173 QRS: -4 QRSD: 106 T: 58 QT: 398 QTc: 420 Interpretive Statements SINUS RHYTHM CONSIDER INFERIOR INFARCT, AGE INDETERMINATE BASELINE ARTIFACT- I, II, III, AVR, AVL, AVF ABNORMAL ECG No previous ECG available for comparison Electronically Signed On 11-13-2024 20:26:21 AGENTS' RECORDS CLERK by Victor Manuel Mackay D.O.
[2024-11-13 18:49] VITALS: PULSE 72
[2024-11-13 18:50] VITALS: O2SAT 94
[2024-11-13] MEDS: ALBUTEROL SULFATE NEB 2.5 MG/3 ML INH 10 MG INHALATION (18:59)
[2024-11-13] MEDS: IPRATROPIUM BR 0.02% INH SOLN 0.5 MG/2.5 ML VIAL 1 MG INHALATION (18:59)
[2024-11-13] MEDS: SODIUM CHLORIDE 0.9% IV 1,000 ML 999 ML IV CONT (19:01)
[2024-11-13] MEDS: methylPREDNISolone SOD SUCC 40 MG VIAL IV PUSH (19:01)
[2024-11-13 19:06] LABS: Basophils Percent Auto 0.3 % (0.2-1.2); Eosinophils Percent Auto 0.3 % (0-4.4); Hematocrit 39.6 % (42.0-52.0); Hemoglobin 12.6 g/dL (14.0-18.0); Immature Granulocyte Absolute 0.02 K/mm3 (0.00-0.031); Immature Granulocyte Percent A 0.2 % (0-0.5); Lymphocytes Absolute Auto 0.95 K/mm3 (0.9-3.2); Lymphocytes Percent Auto 8.5 % (18.3-44.2); Mean Corpuscular HGB Conc 31.8 g/dl (32-36); Mean Corpuscular Hemoglobin 26.8 pg (26-34); Mean Corpuscular Volume 84.1 fl (80-100); Mean Platelet Volume 10.1 fl (7.4-10.4); Monocytes Absolute Auto 0.9 K/mm3 (0.1-0.6); Monocytes Percent Auto 7.7 % (2.6-8.5); Neutrophils Absolute Auto 9.2 K/mm3 (1.3-6.7); Platelet Count Result 189 k/mm3 (150-375); Red Blood Count 4.71 M/mm3 (4.6-6.20); Red Cell Distribution Width 15.9 % (11.5-14.5); White Blood Count 11.1 K/mm3 (4.5-10.0)
[2024-11-13 19:18] LABS: Alanine Aminotransferase 13 U/L (6-50); Albumin Level 3.4 g/dL (3.5-5.1); Alkaline Phosphatase 96 U/L (38-126); Anion Gap 7 mmol/L (4-12); Aspartate Amino Transferase 20 U/L (17-59); Bilirubin,Total 0.8 mg/dL (0.2-1.3); Blood Urea Nitrogen 18 mg/dL (9-20); Calcium 8.3 mg/dL (8.4-10.2); Carbon Dioxide 28 mmol/L (22-30); Chloride 100 mmol/L (98-107); Estimated CRCL calculation 77 ml/min; Estimated Glomerular Filt Rate > 60; Glucose 112 mg/dL (65-110); Magnesium 1.9 mg/dL (1.6-2.3); Potassium 3.5 mmol/L (3.4-5.0); Sodium 135 mmol/L (137-145)
[2024-11-13 19:25] LABS: INR 1.1
--- OUTSIDE RECORDS SUMMARY | 2024-11-13 19:25 | XMS_ITS | Clinical Summary ---
Author Organization [facility] Address [address] [address] [place] [address] Phone Care Team Providers Care Agri Business Agent Name Role Phone Vickey Hernandez MD Primary Care Provider + Allergies Active Allergy Reactions Criticality Noted Date Comments Penicillins Unknown 07/08/2017 Medications lidocaine (LIDODERM) 5 % Adhesive Patch, Medicated Apply 1 Patch to affected area every 24 hours. Active multivitamin (DAILY-ROSALBA) tablet Take 1 Tablet by mouth daily. Active PARoxetine HCl (PAXIL) 40 mg tablet TAKE 1 TABLET BY MOUTH EVERY DAY 1 9 Active buPROPion HCl (WELLBUTRIN XL) 300 mg Extended Release 24 hour tablet TAKE 1 TABLET BY MOUTH EVERY DAY 1 9 Active CARAFATE 100 mg/mL suspension TAKE 10ML BY MOUTH BEFORE MEALS AND AT BEDTIME 0 9 Active cyanocobalamin, vitamin B-12, 1,[address] 1,000 mcg under tongue daily. 90 Lozenge 4 9 Active ANORO ELLIPTA 62.5-25 mcg/actuation Disk with Device INHALE 1 PUFF BY INHALATION ROUTE EVERY DAY AT THE SAME TIME EACH DAY 9 Active traZODone (DESYREL) 50 mg tablet 100 mg. 9 Active BD LUER-ROSA SYRINGE 3 mL 25 gauge x 1 Syringe FOR FOR ONCE MONTHLY IM INJECTIONS OF VITAMIIN B12 DIRECTED 0 Active oxyCODONE-aceta minophen (PERCOCET) 10-325 mg Tablet TAKE 1 TABLET BY MOUTH EVERY FOUR HOURS NEEDED 0 Active tiZANidine (ZANAFLEX) 4 mg Tablet TAKE 1 TABLET BY MOUTH EVERY DAY IN THE EVENING 0 Active pregabalin (LYRICA) 150 mg Capsule Take 150 mg by mouth 2 times daily. 0 Active LORazepam (ATIVAN) 0.5 mg tablet TAKE 1 TABLET BY MOUTH TWICE A DAY NEEDED 0 Active acetaminophen (TYLENOL) 325 mg tablet Take 2 Tablets (650 mg) by mouth every 6 hours as needed for Pain. 0 Active naloxone (NARCAN) 4 mg/spray [place], Non-Aerosol EMERGENCY USE ONLY: Administer 1 spray (4 mg) in one nostril one time. May repeat in alternating nostrils every 2-3 min until responsive or EMS arrives. 2 Each 3 0 Active albuterol HFA 90 mcg inhaler Take 2 Puffs by inhalation every 6 hours as needed for Shortness of Breath. Active Chantix 1 mg TabletIndicatio ns:Non-small cell cancer of right lung (CMS/HCC),Tobac co use TAKE 1 TABLET BY MOUTH TWICE A DAY 180 Tablet 1 Active alclometasone (ACLOVATE) 0.05 % Cream 2 Active varenicline (CHANTIX) 0.5 mg (11)- 1 mg (42) tablets STARTER dose pack Take as directed on package. 53 Tablet 4 Active Active Problems Problem Noted Date Diagnosed Date Non-small cell cancer of right lung 01/16/2020 Iron deficiency anemia 10/24/2019 Tobacco use 07/08/2017 Hypotension due to drugs 07/08/2017 HTN (hypertension) Depression Amputation of left index finger Resolved Problems Problem Noted Date Diagnosed Date Resolved Date Lung mass 12/25/2019 01/16/2020 Encounters Date Type Department Care Team Description 10/31/2024 External Device Data STL ABSTRACTION Provider, Abstract 10/25/2024 External Device Data ST[facility] ABSTRACTION Provider, Abstract 10/25/2024 External Device Data ST[facility] ABSTRACTION Provider, Abstract 10/18/2024 External Device Data ST[facility] ABSTRACTION Provider, Abstract 10/10/2024 External Device Data STL ABSTRACTION Provider, Abstract from Last 3 Months Family History Medical History Relation Name Comments Bronchitis Brother 1 COPD Brother 1 Emphysema Brother 1 Stroke Brother 2 Bronchitis Father Emphysema Father Heart Disease Father Stroke Father Lung Cancer Maternal Aunt COPD Mother Cancer Mother Diabetes Mother Asthma Neg Hx Heart Failure Neg Hx Hypertension Neg Hx Mesothelioma Neg Hx Relation Name Status Comments Brother 1 Brother 2 Father Maternal Aunt Mother Sister 1 Alive Sister 2 Alive Social History Tobacco Use Types Packs/Day Years Used Date Smoking Tobacco: Former Cigarettes Q uit: 02/09/2020 Smokeless Tobacco: Never Tobacco Cessation:Ready to Q uit: Yes Alcohol Use Standard Drinks/Week Comments No 0 (1 standard drink = 0.6 oz pur e alcohol) Sex and Gender Information Value Date Recorded Sex Assigned at Not on file Legal Sex Male 3:14 PM CDT Gender Identity Not on file Sexual Orientation Not on file Last Filed Vital Signs Vital Sign Reading Time Taken Comments Blood Pressure 134/75 01/10/2024 2:37 PM CDT Pulse 115 01/10/2024 2:37 PM CDT Temperature 36.2 C (97.1 F) 01/10/2024 2:37 PM CDT Respiratory Rate 14 01/10/2024 2:37 PM CDT Oxygen Saturation 93% 01/10/2024 2:37 PM CDT Inhaled Oxygen Concentration - - Weight 71.2 kg (157 lb) 01/10/2024 2:37 PM CDT Height 172.7 cm (5' 8 ) 02/09/2022 11:16 AM CDT Body Mass Index 23.87 02/09/2022 11:16 AM CDT Plan of Treatment Upcoming Encounters Date Type Department Care Team (Late st Contact Info) Description 01/18/2025 10:15 AM CDT Office Visit [facility] - [place] [address] [place] [address] Juliocesar Zelaya MD [address] [facility] [address] [place] [address] Health Maintenance Due Date Last Done Comments COLORECTAL SCREENING 2004 Colorectal Cancer Screening 2004 FIT-DNA Q 3 years 2004 FIT/FOBT Q 1 year 2004 Flex Sig/CT Colonography Q 5 years 2004 PNEUMOCOCCAL VACCINE 65+ YEARS (1 of 1 - PCV) 04/02/20 09 ZOSTER VACCINE (1 of 2) 2009 Abdominal Aortic Aneurysm (AAA) Screening 2024 INFLUENZA VACCINE (#1) 2024 DTAP/TDAP/TD VACCINES (2 - Td or Tdap) 11/29/2032 RSV VACCINE (60+ or ) (1 - 1-dose 75+ series) 2034 Medical Devices Implanted Type Area Sales Route Driver Device Identifier Shelf Expiration Date Model / Serial / Lot Clip Ligating Horizon Lg Ti [id number] - Csc - [id number] Implanted:Qty: 1 on 01/23/2020 by Oscar Michel MD at [facility] Clip Right: Chest TELEFLEX- WECK CLOSURE SYS 10/09/2023 [id number] / / [id number] Clip Ligating Horizon Med Ti [id number] - Csc - [id number] Implanted:Qty: 4 on 01/23/2020 by Oscar Michel MD at [facility] Clip Right: Chest TELEFLEX- WECK CLOSURE SYS 06/19/2024 [id number] / / [id number] Sealant Fibrin Evicel 5ml 3905 - [id number] Implanted:Qty: 1 on 01/23/2020 by Oscar Michel MD at [facility] Other Right: Chest J[employer] 06/03/2021 3905 / [id number] / [id number] Adh Bioglue 10ml [id number] - [id number] Implanted:Qty: 1 on 01/23/2020 by Oscar Michel MD at [facility] Tissue Right: Chest [employer] INC 07/09/2021 [id number] / / [id number] [place] Ptfe Thck 2.8mmx2.5x2.5c m [id number] - [id number] Implanted:Qty: 1 on 01/23/2020 by Oscar Michel MD at [facility] Tissue Right: Chest CR BARD- ALEXAND[employer]ASC [employer] 10/31/2021 [id number] / / [id number] Hardware Back Explanted Type Area Sales Route Driver Device Identifier Shelf Expiration Date Model / Serial / Lot Hemostatic Surgicel 4x8in 1952 [id number] Explanted:Qty: 1 on 01/23/2020 at [facility] Right: Chest [employer] 06/03/20221951 / / [id number] Insurance RX [facility] Commercial MEDICAID [place] MEDICARE PART A AND B [facility] MEDICARE PART A AND B [facility] [place]ICAID [place] Advance Directives For more information, please contact: [phone] * Full Code (Latest Code Status on File) Date Activated Date Inactivated Comments 01/23/2020 8:52 AM 01/27/2020 2:16 PM * Full Code Date Activated Date Inactivated Comments 01/23/2020 5:22 AM 01/23/2020 8:52 AM * Full Code Date Activated Date Inactivated Comments 07/08/2017 6:32 PM 07/09/2017 5:38 PM * Full Code Date Activated Date Inactivated Comments 07/08/2017 3:18 PM 07/08/2017 3:50 PM Care Teams Agri Business Agent Relationship Specialty Start Date End Date Vickey Hernandez MD [address] [place] [address] PCP - General Internal Medicine 07/09/17
--- OUTSIDE RECORDS SUMMARY | 2024-11-13 19:25 | XMS_ITS ---
Author Organization [facility] Address [address] [place] [address] [address] [place] [address] Care Team Providers Care Transportation Design Engineer Name Role Phone Armando Joss Unavailable [phone] Medications Medication SIG (Take, Route, Fr equency, Duration) Notes Start Date End Date Status tiZANidine HCl 4 mg Take 1 tablet three times a day for 90 days Active oxyCODONE HCl 5 MG/5ML 10 milliliters Or al every 4 hours for 30 days 11/09/2024 Active Pregabalin 150 mg 1 capsule orally twi ce a day for 30 days 11/09/2024 Active Encounters Encounter Location Date Provider Diagnosis [facility] [address] [place] [address] [address] [place] [address] 11/09/2024 Joss Roberts Plan Of Treatment Medication Medication Name Sig Start Date Stop Date Notes tiZANidine HCl 4 mg Take 1 tablet three times a day for 90 days oxyCODONE HCl 5 MG/5ML 10 milliliters Or al every 4 hours for 30 days 11/09/2024 Pregabalin 150 mg 1 capsule orally twi ce a day for 30 days 11/09/2024 Next Appt Details Provider Name:Tran cote, 12/07/2024 09:45:00 AM, [address] [place] [address], [address], [place], [address], Progress Notes * Xavier SMITHOB:1960 (64 yo M)Acc No.[id number]:11/09/2024 Patient: Kiran VILLAFANA :1960 A ge:64 Y S ex:Male Address:[address] [place] [address], [address] * Refills Refill Pregabalin Capsule, 150 mg, orally, 60 Capsule, 1 capsule, twice a day, 30 days, Refills=2 Refill tiZANidine HCl Tablet, 4 mg, 180, Take 1 tablet, three times a day, 90 days, Refills=1 Refill oxyCODONE HCl Solution, 5 MG/5ML, 1800 Milliliter, 10 milliliters Oral, every 4 hours, 30 days, Refills=0 * true * Date: Generated for Dalton chin/Ema/Laureitting on: 0 11/13/2024 07:25 PM 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
--- OUTSIDE RECORDS SUMMARY | 2024-11-13 19:25 | XMS_ITS | Clinical Summary ---
Author Organization [facility] Address [address] [place] [address] Care Team Providers Care Instructor Watch Assembly Name Role Phone Vickey Hernandez MD Primary Care Provider [phone] Source Comments [facility],non-owned Affiliates and Associated Physician Practices is amultiple site organization consisting of ambulatory clinics and hospital sitesin [place], [place], [place] and [place]. This disclosure is being madepursuant to the Care Everywhere program and may not contain all information available regarding this patient. Last updated 18.[facility] Allergies No known active allergies Medications * Be aware that medications may not be up to date on this document. Alwaysverify current medications with the patient. Medication Sig Dispensed Refills Start Date End Date Status albuterol HFA (Proventil; Ventolin; Proair) 108 (90 Base) MCG/ACT inhaler Inhale 2 (two) puffs by mouth every 4 hours as needed for Wheezing 07/13/2022 Active albuterol HFA (Proventil; Ventolin; Proair) 108 (90 Base) MCG/ACT inhaler Inhale 2 (two) puffs by mouth every 6 hours as needed for Shortness of Breath Active buPROPion XL 24hr (Wellbutrin-XL) 300 MG tablet Take 1 (one) tablet by mouth daily with breakfast 11/26/2022 Active Fluticasone-Umecl idin-Vilant (Trelegy) 100-62.5-25 MCG/ACT Inhale 1 (one) puff by mouth once daily 06/22/2022 Active levETIRAcetam (Keppra) 500 MG tablet Take 1 (one) tablet by mouth every 12 hours 10/28/2022 Active levETIRAcetam CR 24hr (Keppra XR) 500 MG tablet Take 2 (two) tablets by mouth once daily 11/04/2022 Active cyanocobalamin (Vitamin B-12) injection Inject 1,000 (one thousand) mcg into muscle every 30 days 10/26/2022 Active lidocaine (Lidoderm) 5 % patch Apply 1 (one) patch to affected area once daily Active LORazepam (Ativan) 0.5 MG tablet Take 1 (one) tablet by mouth 2 times daily as needed for anxiety 06/22/2022 Active Multiple Vitamin (Daily Vites) TABS Take 1 (one) tablet by mouth once daily Active pregabalin (Lyrica) 150 MG capsule 09/07/2022 Active B-D 3CC LUER-ROSA SYR 25GX1 25G X 1 3 ML MISC USE TO INJECT B12 MONTHLY 06/11/2022 Active tiZANidine (Zanaflex) 4 MG tablet 11/26/2022 Active traZODone (Desyrel) 50 MG tablet TAKE 1 - 2 TABLETS BY MOUTH AT BEDTIME FOR SLEEP 09/19/2022 Active varenicline (Chantix) 1 MG tablet Take 1 (one) tablet by mouth 2 times daily 06/24/2021 Active enoxaparin (Lovenox) 40 MG/0.4ML injection Inject 40 (forty) mg subcutaneously once daily 12/06/2022 Active polyethylene glycol 3350 (Miralax) 17 g packet Take 17 (seventeen) g by mouth once daily 14 packet 12/06/2022 Active docusate sodium (Colace) 100 MG capsule Take 1 (one) capsule by mouth once daily 0 12/06/2022 Active oxyCODONE, immediate release, (Roxicodone) 5 MG tabletIndications :Closed fracture of left tibia and fibula, initial encounter Take 1 (one) tablet by mouth every 6 hours as needed for Pain 42 tablet 12/06/2022 Active Active Problems Problem Noted Date Diagnosed Date Hypoxia 12/06/2022 HTN (hypertension) 12/05/2022 Depression 12/05/2022 Amputation of left index finger 12/05/2022 S/P lobectomy of lung 12/05/2022 PUD (peptic ulcer disease) 12/05/2022 History of primary non-small cell carcinoma of r ight lung 12/05/2022 Closed fracture of left tibia and fibula, initia l encounter 11/29/2022 Leg injury, left, initial encounter 11/29/2022 Iron deficiency anemia 10/24/2019 Tobacco use 07/08/2017 Resolved Problems Problem Noted Date Diagnosed Date Resolved Date Non-small cell cancer of right lung 01/16/2020 12/05/2022 Immunizations Name Administration Dates Next Due TDAP (7yrs+) 11/29/2022 Social History Tobacco Use Types Packs/Day Years Used Date Smoking Tobacco: Every Day Cigarettes 0.5 50.1 Started: 1974 Smokeless Tobacco: Never Tobacco Cessation:Ready to Q uit: No; Counseling Given: No Comments:Hx of 3ppd from 1974 to 2021, 141PY Alcohol Use Standard Drinks/Week Comments Not Currently 0 (1 standard drink = 0.6 oz pur e alcohol) 1 drink every 3 months AUDIT-C Answer Date Recorded Q1: How often do you have a drink containing alcohol? Never 11/29/2022 Q2: How many drinks containi ng alcohol do you have on a typical day when you are drinking? Patient does not drink Q3: How often do you have si x or more drinks on one occasion? Never 11/29/2022 Overall Financial Resource Strain (CARDIA) Answe r Date Recorded How hard is it for you to pa y for the very basics like food, housing, medical care, and heating? Not hard at all 12/03/2022 [facility] - Occupational Stress Questionnaire Answer Date Recorded Do you feel stress - tense, restless, nervous, or anxious, or unable to sleep at night because your mind is troubled all the time - these days? Not at all 12/03/2022 Hunger Vital Sign Answer Date Recorded Within the past 12 months, y ou worried that your food would run out before you got the money to buy more. Never true 12/04/19 23 Within the past 12 months, t he food you bought just didn't last and you didn't have money to get more. Never true 12/03/2022 PRAPARE - Transportation Answer Date Re corded In the past 12 months, has l ack of transportation kept you from medical appointments or from getting medications? No 11/2022 In the past 12 months, has l ack of transportation kept you from meetings, work, or from getting things needed for daily living? No 12/03/2022 Housing Stability Vital Sign Answer Kavon e Recorded In the last 12 months, was t here a time when you were not able to pay the mortgage or rent on time? No 12/03/2022 In the last 12 months, how many places have you lived? 1 12/03/2022 In the last 12 months, was t here a time when you did not have a steady place to sleep or slept in a halfway (including now)? No 12/03/2022 Sex and Gender Information Value Date Recorded Sex Assigned at Not on file Gender Identity Not on file Sexual Orientation Not on file Last Filed Vital Signs Vital Sign Reading Time Taken Comments Blood Pressure 142/81 12/06/2022 9:17 AM TRANSITION MANAGER Pulse 96 12/06/2022 9:17 AM TRANSITION MANAGER Temperature 37 C (98.6 F) 12/06/2022 7:57 AM TRANSITION MANAGER Respiratory Rate 18 12/06/2022 10:29 AM TRANSITION MANAGER Oxygen Saturation 94% 12/06/2022 10:29 AM TRANSITION MANAGER Inhaled Oxygen Concentration - - Weight 77.1 kg (170 lb) 11/29/2022 2:06 PM TRANSITION MANAGER Height 172.7 cm (5' 8 ) 11/29/2022 2:06 PM TRANSITION MANAGER Body Mass Index 25.85 11/29/2022 2:06 PM TRANSITION MANAGER Plan of Treatment Health Maintenance Due Date Last Done Comments COLOGUARD (AGES 45-75) - COLON CA SCREENING 1960 COLON MONITORING 1960 COLONOSCOPY - COLON CA SCREENING 1959 CT COLONOGRAPHY - COLON CA SCREENING 1960 Colorectal Cancer Screening 1959 FIT - COLON CA SCREENING 1959 FLEX SIG - COLON CA SCREENING 1959 LIPID TESTING 1960 MEDICARE AWV 12 MONTHS 1959 HIV SCREENING 1974 HEPATITIS C SCREENING 03/28/1977 PNEUMOCOCCAL VACCINE 50+ (1 of 2 - PCV) 1978 ZOSTER VACCINE (1 of 2) 2009 AAA SCREENING 2024 COVID-19 VACCINE ( - season) 2024 INFLUENZA VACCINE (#1) 2024 DEPRESSION SCREENING 10/04/2024 SCREENING FOR DIABETES 12/06/2025 3, 12/05/2022, 12/04/2022, Additional history exists DTAP/TDAP/TD VACCINES (2 - Td or Tdap) 11/29/2032 11/29/2022 Respiratory Syncytial Virus (RSV) Vaccine Pt: or over 60 yrs (1 - 1-dose 75+ series) 2034 HEPATITIS B VACCINE Aged Out No longe r eligible based on patient's age to complete this topic HIB VACCINE Aged Out No longer eligi ble based on patient's age to complete this topic HPV VACCINE Aged Out No longer eligi ble based on patient's age to complete this topic MENINGOCOCCAL (Group B) VACCINE Aged Out No longer eligible based on patient's age to complete this topic MENINGOCOCCAL VACCINE Aged Out No emmett herve eligible based on patient's age to complete this topic Medical Devices Implanted Type Area Color Consultant Device Identifier Shelf Expiration Date Model / Serial / Lot Screw 4mm 5mm 60mm .5 Thrd Rvrs Cut Flut Implanted:Qty: 1 on 11/30/2022 by Felipe Garcia MD at [facility] Left: Tibia [employer] [id number] / / Screw 4mm 5mm 80mm .5 Thrd Rvrs Cut Flut Implanted:Qty: 1 on 11/30/2022 by Felipe Garcia MD at [facility] Left: Tibia [employer] [id number] / / Nail Implanted:Qty: 1 on 11/30/2022 by Felipe Garcia MD at [facility] Left: Tibia [employer] 06/03/2029 [id number] / / Screw 5mm 3.5mm 40mm Ft Slf-Tap Fx Ang Implanted:Qty: 1 on 11/30/2022 by Felipe Garcia MD at [facility] Left: Tibia [employer] 09/12/2032 [id number] / / Screw 5mm 3.5mm 45mm Ft Fx Ang Hex Head Implanted:Qty: 1 on 11/30/2022 by Felipe Garcia MD at [facility] Left: Tibia [employer] 10/26/2032 [id number] / / Screw 5mm 3.5mm 47.5mm Ft Slf-Tap Fx Ang Implanted:Qty: 1 on 11/30/2022 by Felipe Garcia MD at [facility] Left: Tibia [employer] 07/20/2032 [id number] / / Screw 5mm 3.5mm 50mm Ft Slf-Tap Fx Ang Implanted:Qty: 1 on 11/30/2022 by Felipe Garcia MD at [facility] Left: Tibia [employer] 07/06/2032 [id number] / / Screw 5mm 3.5mm 40mm Ft Slf-Tap Fx Ang Implanted:Qty: 1 on 11/30/2022 by Felipe Garcia MD at [facility] Left: Tibia [employer] 09/12/2032 [id number] / / Screw 5mm 3.5mm 60mm Ft Fx Ang Hex Head Implanted:Qty: 1 on 11/30/2022 by Felipe Garcia MD at [facility] Left: Tibia [employer] 12/24/2031 [id number] / / Explanted Type Area Color Consultant Device Identifier Shelf Expiration Date Model / Serial / Lot Nail Explanted:Qty: 1 on 11/30/2022 by Felipe Garcia MD at [facility] Left: Tibia [employer] 09/02/2025 [id number] / / Screw 5mm 3.5mm 70mm Ft Slf-Tap Fx Ang Explanted:Qty: 1 on 11/30/2022 by Felipe Garcia MD at [facility] Left: Tibia [employer] 08/02/2032 [id number] / / Procedures Procedure Name Priority Date/Time Associated Diagnosis Comments BASIC METABOLIC PANEL (CALCIUM TOTAL) Routine 12/06/2022 1:09 AM TRANSITION MANAGER Closed fracture of left tibia and fibula, initial encounter from Last 3 Months or Most Recently Relevant to Health Maintenance Results * (ABNORMAL) BASIC METABOLIC PANEL (CALCIUM TOTAL) (12/06/2022 1:09 AM TRANSITION MANAGER) BUN 12 7 - 26 mg/dL 12/06/2022 2:03 AM [facility] Creatinine 0.88 0.71 - 1.16 mg/dL 12/06/2022 2:03 AM [facility] Sodium 141 136 - 145 mmol/L 12/06/2022 2:03 AM [facility] Potassium 4.0 3.5 - 4.5 mmol/L 12/06/2022 2:03 AM [facility] Chloride 106 98 - 107 mmol/L 12/06/2022 2:03 AM [facility] CO2 27 22 - 29 mmol/L 12/06/2022 2:03 AM [facility] Glucose 88 70 - 115 mg/dL 12/06/2022 2:03 AM [facility] Calcium 7.6(L) 8.4 - 10.2 mg/dL 12/06/2022 2:03 AM [facility] Anion Gap 12 8 - 18 12/06/2022 2:03 AM [facility] BUN/Creatinine Ratio 14 7 - 23 12/06/2022 2:03 AM [facility] Osmolality Calculated 291 270 - 300 mOsm/kg 12/06/2022 2:03 AM [facility] eGFR by CKD-EPI >90 >=90 mL/min/1.7 3 m2 12/06/2022 2:03 AM [facility] Blood BLOOD SPECIMEN / Unknown Lab Venipuncture / Unknown 12/06/2022 1:09 AM TRANSITION MANAGER 12/06/2022 1:28 AM TRANSITION MANAGER Caterina Lind MD LAB - CHEMISTRY BAKARI MCCOY [facility] [address] [place] [address], [facility] [phone] from Last 3 Months or Most Recently Relevant to Health Maintenance Care Teams Instructor Watch Assembly Relationship Specialty Start Date End Date Vickey Hernandez MD [address] [place] [address] PCP - General 08/04/19
--- OUTSIDE RECORDS SUMMARY | 2024-11-13 19:25 | XMS_ITS | Referral Summary ---
Author Organization [facility] Address [address] [place] [address] Care Team Providers Care Visual Lead Name Role Phone Vickey Hernandez MD Primary Care Provider Source Comments [facility],non-owned Affiliates and Associated Physician Practices is amultiple site organization consisting of ambulatory clinics and hospital sitesin [place], [place], [place] and [place]. This disclosure is being madepursuant to the Care Everywhere program and may not contain all information available regarding this patient. Last updated 18.[facility] Allergies No known active allergies Medications * [...] and heating? Not hard at all 12/03/2022 [facility] [place] [facility] Occupat ional [facility] - Occupational Stress [...] place to sleep or slept in a assisted (including now)? No 12/03/2022 Sex and Gender Information Value Date Recorded Sex Assigned at Not on file Gender Identity Not on file Sexual Orientation Not on file Last Filed Vital Signs Vital Sign Reading Time Taken Comments Blood Pressure 142/81 12/06/2022 9:17 AM PHARMACIST TECHNICIAN Pulse 96 12/06/2022 9:17 AM PHARMACIST TECHNICIAN Temperature 37 C (98.6 F) 12/06/2022 7:57 AM PHARMACIST TECHNICIAN Respiratory Rate 18 12/06/2022 10:29 AM PHARMACIST TECHNICIAN Oxygen Saturation 94% 12/06/2022 10:29 AM PHARMACIST TECHNICIAN Inhaled Oxygen Concentration - - Weight 77.1 kg (170 lb) 11/29/2022 2:06 PM PHARMACIST TECHNICIAN Height 172.7 cm (5' 8 ) 11/29/2022 2:06 PM PHARMACIST TECHNICIAN Body Mass Index 25.85 11/29/2022 2:06 PM PHARMACIST TECHNICIAN Functional Status Functional Status Response Date of Assess ment Is person deaf or have serious hearing difficult y? No 12/06/2022 Is person blind or have serious difficulty seein g? No 12/06/2022 Does person have serious dif ficulty walking/climbing stairs? Yes 12/06/2022 Does person have difficulty dressing/bathing? No 12/06/2022 Does person have difficulty doing errands alone? Yes 12/06/2022 Cognitive Status Response Date of Assessm ent Does person have difficulty concentrating/remembering/making decisions? No 12/06/2022 Plan of Treatment Not on file Medical Devices Implanted Type Area Photographer'S Model Device Identifier Shelf Expiration Date Model / Serial / Lot Screw 4mm 5mm 60mm .5 Thrd Rvrs Cut Flut Implanted:Qty: 1 on 11/30/2022 by Felipe Garcia MD at [facility] Left: [employer] [id number] / / Screw 4mm 5mm 80mm .5 Thrd Rvrs Cut Flut Implanted:Qty: 1 on 11/30/2022 by Felipe Garcia MD at [facility] Left: [employer] [id number] / / Nail Implanted:Qty: 1 on 11/30/2022 by Felipe Garcia MD at [facility] Left: [employer] 06/03/2029 [id number] / / Screw 5mm 3.5mm 40mm Ft Slf-Tap Fx Ang Implanted:Qty: 1 on 11/30/2022 by Felipe Garcia MD at [facility] Left: [employer] 09/12/2032 [id number] / / Screw 5mm 3.5mm 45mm Ft Fx Ang Hex Head Implanted:Qty: 1 on 11/30/2022 by Felipe Garcia MD at [facility] Left: [employer] 10/26/2032 [id number] / / Screw 5mm 3.5mm 47.5mm Ft Slf-Tap Fx Ang Implanted:Qty: 1 on 11/30/2022 by Felipe Garcia MD at [facility] Left: [employer] 07/20/2032 [id number] / / Screw 5mm 3.5mm 50mm Ft Slf-Tap Fx Ang Implanted:Qty: 1 on 11/30/2022 by Felipe Garcia MD at [facility] Left: [employer] 07/06/2032 [id number] / / Screw 5mm 3.5mm 40mm Ft Slf-Tap Fx Ang Implanted:Qty: 1 on 11/30/2022 by Felipe Garcia MD at [facility] Left: [employer] 09/12/2032 [id number] / / Screw 5mm 3.5mm 60mm Ft Fx Ang Hex Head Implanted:Qty: 1 on 11/30/2022 by Felipe Garcia MD at [facility] Left: [employer] 12/24/2031 [id number] / / Explanted Type Area Photographer'S Model Device Identifier Shelf Expiration Date Model / Serial / Lot Nail Explanted:Qty: 1 on 11/30/2022 by Felipe Garcia MD at [facility] Left: [employer] 09/02/2025 [id number] / / Screw 5mm 3.5mm 70mm Ft Slf-Tap Fx Ang Explanted:Qty: 1 on 11/30/2022 by Felipe Garcia MD at [facility] Left: [employer] 08/02/2032 [id number] / / Procedures Procedure Name Priority Date/Time Associated Diagnosis Comments BASIC METABOLIC PANEL (CALCIUM TOTAL) Routine 12/06/2022 1:09 AM PHARMACIST TECHNICIAN Closed fracture of left tibia and fibula, initial encounter from Last 3 Months or Most Recently Relevant to Health Maintenance Results * (ABNORMAL) BASIC METABOLIC PANEL (CALCIUM TOTAL) (12/06/2022 1:09 AM PHARMACIST TECHNICIAN) BUN 12 7 - 26 mg/dL 12/06/2022 2:03 AM [facility] Creatinine 0.88 0.71 - 1.16 mg/dL 12/06/2022 2:03 AM [facility] Sodium 141 136 - 145 mmol/L 12/06/2022 2:03 AM [facility] Potassium 4.0 3.5 - 4.5 mmol/L 12/06/2022 2:03 AM [facility] Chloride 106 98 - 107 mmol/L 12/06/2022 2:03 AM [facility] CO2 27 22 - 29 mmol/L 12/06/2022 2:03 AM [facility] Glucose 88 70 - 115 mg/dL 12/06/2022 2:03 AM [facility] Calcium 7.6(L) 8.4 - 10.2 mg/dL 12/06/2022 2:03 AM [facility] Anion Gap 12 8 - 18 12/06/2022 2:03 AM [facility] BUN/Creatinine Ratio 14 7 - 23 12/06/2022 2:03 AM PHARMACIST TECHNICIAN [facility] Osmolality Calculated 291 270 - 300 mOsm/kg 12/06/2022 2:03 AM PHARMACIST TECHNICIAN [facility] eGFR by CKD-EPI >90 >=90 mL/min/1.7 3 m2 12/06/2022 2:03 AM PHARMACIST TECHNICIAN [facility] Blood BLOOD SPECIMEN / Unknown Lab Venipuncture / Unknown 12/06/2022 1:09 AM PHARMACIST TECHNICIAN 12/06/2022 1:28 AM PHARMACIST TECHNICIAN Caterina Lind MD LAB - CHEMISTRY [facility] [address] [place] [address], [facility] [phone] from Last 3 Months or Most Recently Relevant to Health Maintenance Care Teams Visual Lead Relationship Specialty Start Date End Date Vickey Hernandez MD [address] [place] [address] PCP - General 08/04/19
--- OUTSIDE RECORDS SUMMARY | 2024-11-13 19:26 | XMS_ITS | Encounter Summary ---
Author Organization [facility] Address [address] [place] [address] Care Team Providers Care Model Maker Name Role Phone Vickey Hernandez MD Primary Care Provider + Encounter Details Date Type Department Care Team (Late Contact Info) Description 12/28/2019 Chart Note [facility] Radiation Therapy [address] [place] [address] [place] [address] [place] [address] Social History Tobacco Use Types Packs/Day Years Used Date Smoking Tobacco: Every Day Cigarettes Smokeless Tobacco: Never Alcohol Use Standard Drinks/Week Comments No 0 (1 standard drink = 0.6 oz pur e alcohol) Sex and Gender Information Value Date Recorded Sex Assigned at Not on file Legal Sex Male 3:14 PM CDT Gender Identity Not on file Sexual Orientation Not on file COVID-19 Exposure Response Date Recorded In the last month, have you been in contact with someone who was confirmed or suspected to have Coronavirus / COVID-19? No / Unsure 12/25/2019 12:35 PM CDT documented as of this encounter Plan of Treatment Upcoming Encounters Date Type Department Care Team (Late st Contact Info) Description 01/18/2025 10:15 AM CDT Office Visit [facility] Oncology and Hematology - [place] [address] [address] [facility] [address] [place] [address] Juliocesar Zelaya MD [address] [place] [address] documented as of this encounter Visit Diagnoses Not on filedocumented in this encounter Care Teams Model Maker Relationship Specialty Start Date End Date Vickey Hernandez MD [address] [place] [address] PCP - General Internal Medicine 07/09/17 documented as of this encounter
--- OUTSIDE RECORDS SUMMARY | 2024-11-13 19:26 | XMS_ITS | Patient Health Summary ---
Author Organization [facility] Address [address] [place] [address] Care Team Providers Care Landscape Designer Name Role Phone Vickey Hernandez MD Primary Care Provider [phone] Note from [facility],non-owned Affiliates and Associated Physician Practices is amultiple site organization consisting of ambulatory clinics and hospital sitesin [place], [place] and [place]. This disclosure is being madepursuant to the Care Everywhere program and may not contain all information available regarding this patient. Last updated 18.[facility] Allergies No known active allergies Medications * Be aware that medications may not be up to date on this document. Alwaysverify current medications with the patient. * albuterol HFA (Proventil; Ventolin; Proair) 108 (90 Base) MCG/ACT inhaler (Started 07/13/2022) Inhale 2 (two) puffs by mouth every 4 hours as needed for Wheezing * albuterol HFA (Proventil; Ventolin; Proair) 108 (90 Base) MCG/ACT inhaler Inhale 2 (two) puffs by mouth every 6 hours as needed for Shortness of Breath * buPROPion XL 24hr (Wellbutrin-XL) 300 MG tablet(Started 11/26/2022) Take 1 (one) tablet by mouth daily with breakfast * Hohwkzefqeq-Jiwkwacan-Fbkqjs (Trelegy) 100-62.5-25 MCG/ACT(Started 06/22/2022) Inhale 1 (one) puff by mouth once daily * levETIRAcetam (Keppra) 500 MG tablet(Started 10/28/2022) Take 1 (one) tablet by mouth every 12 hours * levETIRAcetam CR 24hr (Keppra XR) 500 MG tablet(Started 11/04/2022) Take 2 (two) tablets by mouth once daily * cyanocobalamin (Vitamin B-12) injection(Started 10/26/2022) Inject 1,000 (one thousand) mcg into muscle every 30 days * lidocaine (Lidoderm) 5 % patch Apply 1 (one) patch to affected area once daily * LORazepam (Ativan) 0.5 MG tablet(Started 06/22/2022) Take 1 (one) tablet by mouth 2 times daily as needed for anxiety * Multiple Vitamin (Daily Vites) TABS Take 1 (one) tablet by mouth once daily * pregabalin (Lyrica) 150 MG capsule(Started 09/07/2022) * B-D 3CC LUER-ROSA SYR 25GX1 25G X 1 3 ML MISC(Started 06/11/2022) USE TO INJECT B12 MONTHLY * tiZANidine (Zanaflex) 4 MG tablet(Started 11/26/2022) * traZODone (Desyrel) 50 MG tablet(Started 09/19/2022) TAKE 1 - 2 TABLETS BY MOUTH AT BEDTIME FOR SLEEP * varenicline (Chantix) 1 MG tablet(Started 06/24/2021) Take 1 (one) tablet by mouth 2 times daily * enoxaparin (Lovenox) 40 MG/0.4ML injection(Started 12/06/2022) Inject 40 (forty) mg subcutaneously once daily * polyethylene glycol 3350 (Miralax) 17 g packet(Started 12/06/2022) Take 17 (seventeen) g by mouth once daily * docusate sodium (Colace) 100 MG capsule(Started 12/06/2022) Take 1 (one) capsule by mouth once daily * oxyCODONE, immediate release, (Roxicodone) 5 MG tablet(Started 12/06/2022) Take 1 (one) tablet by mouth every 6 hours as needed for Pain Active Problems Problem Noted Date Diagnosed Date [...] cancer of right lung 01/16/2020 12/05/2022 Immunizations * TDAP (7yrs+)(Given 11/29/2022) Social History Tobacco Use Types Packs/Day Years [...] and heating? Not hard at all 12/03/2022 [facility] - Occupational Stress [...] place to sleep or slept in a retirement (including now)? No 12/03/2022 Sex and Gender Information Value Date Recorded Sex Assigned at Not on file Gender Identity Not on file Sexual Orientation Not on file Last Filed Vital Signs Vital Sign Reading Time Taken Comments Blood Pressure 142/81 12/06/2022 9:17 AM OIL DIPPER Pulse 96 12/06/2022 9:17 AM OIL DIPPER Temperature 37 C (98.6 F) 12/06/2022 7:57 AM OIL DIPPER Respiratory Rate 18 12/06/2022 10:29 AM OIL DIPPER Oxygen Saturation 94% 12/06/2022 10:29 AM OIL DIPPER Inhaled Oxygen Concentration - - Weight 77.1 kg (170 lb) 11/29/2022 2:06 PM OIL DIPPER Height 172.7 cm (5' 8 ) 11/29/2022 2:06 PM OIL DIPPER Body Mass Index 25.85 11/29/2022 2:06 PM OIL DIPPER Medical Devices Implanted Type Area Education Assistant Device Identifier Shelf Expiration Date Model / Serial / Lot Screw 4mm 5mm 60mm .5 Thrd Rvrs Cut Flut Implanted:Qty: 1 on 11/30/2022 by Felipe Garcia MD at [facility] Left: [employer] [id number] / / Screw 4mm 5mm 80mm .5 Thrd Rvrs Cut Flut Implanted:Qty: 1 on 11/30/2022 by Felipe Garcia MD at [facility] Left: [employer] [id number] / / Nail Implanted:Qty: 1 on 11/30/2022 by Felipe Garcia MD at [facility] Left: Tibia [employer] 06/03/2029 [id number] / / Screw 5mm 3.5mm 40mm Ft Slf-Tap Fx Ang Implanted:Qty: 1 on 11/30/2022 by Felipe Garcia MD at [facility] Left: [employer] 09/12/2032 [id number] / / Screw 5mm 3.5mm 45mm Ft Fx Ang Hex Head Implanted:Qty: 1 on 11/30/2022 by Felipe Garcia MD at [facility] Left: [employer] 10/26/2032 [id number] / / Screw 5mm 3.5mm 47.5mm Ft Slf-Tap Fx Ang Implanted:Qty: 1 on 11/30/2022 by Felipe Garcia MD at [facility] Left: [employer] 07/20/2032 [id number] / / Screw 5mm 3.5mm 50mm Ft Slf-Tap Fx Ang Implanted:Qty: 1 on 11/30/2022 by Felipe Garcia MD at [facility] Left: Tibia Hcrist[employer] 07/06/2032 [id number] / / Screw 5mm 3.5mm 40mm Ft Slf-Tap Fx Ang Implanted:Qty: 1 on 11/30/2022 by Felipe Garcia MD at [facility] Left: [employer] 09/12/2032 [id number] / / Screw 5mm 3.5mm 60mm Ft Fx Ang Hex Head Implanted:Qty: 1 on 11/30/2022 by Felipe Garcia MD at [facility] Left: [employer] 12/24/2031 [id number] / / Explanted Type Area Education Assistant Device Identifier Shelf Expiration Date Model / Serial / Lot Nail Explanted:Qty: 1 on 11/30/2022 by Felipe Garcia MD at [facility] Left: [employer] 09/02/2025 [id number] / / Screw 5mm 3.5mm 70mm Ft Slf-Tap Fx Ang Explanted:Qty: 1 on 11/30/2022 by Felipe Garcia MD at [facility] Left: [employer] 08/02/2032 [id number] / / Procedures * XR TIBIA FIBULA LEFT 2VW(Performed 06/16/2023) Performed for Closed fracture of left tibia and fibula with routine healing, subsequent encounter * XR TIBIA FIBULA LEFT 2VW(Performed 02/17/2023) Performed for Closed fracture of left tibia and fibula, initial encounter * XR TIBIA FIBULA LEFT 2VW(Performed 01/20/2023) Performed for Closed fracture of left tibia and fibula with routine healing, subsequent encounter * XR TIBIA FIBULA LEFT 2VW(Performed 12/16/2022) Performed for Closed fracture of left tibia and fibula, initial encounter * CARDIAC EKG ORDER(Performed 12/07/2022) * CBC W/O DIFFERENTIAL(Performed 12/06/2022) Performed for Closed fracture of left tibia and fibula, initial encounter * PHOSPHORUS BLOOD(Performed 12/06/2022) Performed for Closed fracture of left tibia and fibula, initial encounter * MAGNESIUM BLOOD(Performed 12/06/2022) Performed for Closed fracture of left tibia and fibula, initial encounter * BASIC METABOLIC PANEL (CALCIUM TOTAL)(Performed 12/06/2022) Performed for Closed fracture of left tibia and fibula, initial encounter * FERRITIN(Performed 12/05/2022) * IRON + TRANSFERRIN PANEL(Performed 12/05/2022) * CBC W/O DIFFERENTIAL(Performed 12/05/2022) Performed for Closed fracture of left tibia and fibula, initial encounter * PHOSPHORUS BLOOD(Performed 12/05/2022) Performed for Closed fracture of left tibia and fibula, initial encounter * MAGNESIUM BLOOD(Performed 12/05/2022) Performed for Closed fracture of left tibia and fibula, initial encounter * BASIC METABOLIC PANEL (CALCIUM TOTAL)(Performed 12/05/2022) Performed for Closed fracture of left tibia and fibula, initial encounter * HAPTOGLOBIN(Performed 12/04/2022) * LDH BLOOD(Performed 12/04/2022) * HEPATIC FUNCTION PANEL(Performed 12/04/2022) * CBC W AUTO DIFFERENTIAL(Performed 12/04/2022) * CBC W/O DIFFERENTIAL(Performed 12/04/2022) Performed for Closed fracture of left tibia and fibula, initial encounter * PHOSPHORUS BLOOD(Performed 12/04/2022) Performed for Closed fracture of left tibia and fibula, initial encounter * MAGNESIUM BLOOD(Performed 12/04/2022) Performed for Closed fracture of left tibia and fibula, initial encounter * BASIC METABOLIC PANEL (CALCIUM TOTAL)(Performed 12/04/2022) Performed for Closed fracture of left tibia and fibula, initial encounter * HEMOGLOBIN(Performed 12/03/2022) * PREPARE RBC LEUKOREDUCED UNIT(Performed 12/03/2022) * TYPE + SCREEN PANEL(Performed 12/03/2022) * CBC W/O DIFFERENTIAL(Performed 12/03/2022) Performed for Closed fracture of left tibia and fibula, initial encounter * PHOSPHORUS BLOOD(Performed 12/03/2022) Performed for Closed fracture of left tibia and fibula, initial encounter * MAGNESIUM BLOOD(Performed 12/03/2022) Performed for Closed fracture of left tibia and fibula, initial encounter * BASIC METABOLIC PANEL (CALCIUM TOTAL)(Performed 12/03/2022) Performed for Closed fracture of left tibia and fibula, initial encounter * CBC W/O DIFFERENTIAL(Performed 12/02/2022) * CBC W/O DIFFERENTIAL(Performed 12/02/2022) Performed for Closed fracture of left tibia and fibula, initial encounter * PHOSPHORUS BLOOD(Performed 12/02/2022) Performed for Closed fracture of left tibia and fibula, initial encounter * MAGNESIUM BLOOD(Performed 12/02/2022) Performed for Closed fracture of left tibia and fibula, initial encounter * BASIC METABOLIC PANEL (CALCIUM TOTAL)(Performed 12/02/2022) Performed for Closed fracture of left tibia and fibula, initial encounter * CBC W/O DIFFERENTIAL(Performed 12/01/2022) Performed for Anemia, unspecified type * CBC W/O DIFFERENTIAL(Performed 12/01/2022) Performed for Closed fracture of left tibia and fibula, initial encounter * CBC W AUTO DIFFERENTIAL(Performed 12/01/2022) Performed for Leg injury, left, initial encounter * TRANSFUSE RED BLOOD CELL LEUKOREDUCED UNIT(S)(Performed 12/01/2022) * PREPARE RBC LEUKOREDUCED UNIT(Performed 12/01/2022) * TRANSFUSE RED BLOOD CELL LEUKOREDUCED UNIT(S)(Performed 12/01/2022) * BLOOD GASES ART + COOX PANEL(Performed 12/01/2022) Performed for Leg injury, left, initial encounter, Closed fracture of left tibia and fibula, initial encounter * LACTIC ACID BLOOD(Performed 12/01/2022) Performed for Leg injury, left, initial encounter, Closed fracture of left tibia and fibula, initial encounter * EKG 12-LEAD(Performed 12/01/2022) Performed for Closed fracture of left tibia and fibula, initial encounter * TROPONIN-I HIGH SENSITIVE(Performed 12/01/2022) Performed for Closed fracture of left tibia and fibula, initial encounter * PT-INR [facility](Performed 12/01/2022) Performed for Closed fracture of left tibia and fibula, initial encounter * COMPREHENSIVE METABOLIC PANEL(Performed 12/01/2022) Performed for Leg injury, left, initial encounter * PHOSPHORUS BLOOD(Performed 12/01/2022) Performed for Leg injury, left, initial encounter * MAGNESIUM BLOOD(Performed 12/01/2022) Performed for Leg injury, left, initial encounter * GLUCOSE - POINT OF CARE(Performed 12/01/2022) * FL ROGER SURGERY(Performed 11/30/2022) Performed for Closed fracture of left tibia and fibula, initial encounter * XR TIBIA FIBULA LEFT 2VW(Performed 11/30/2022) Performed for Closed fracture of left tibia and fibula, initial encounter * ENDOTRACHEAL TUBE NOTE(Performed 11/30/2022) * NC OPEN RX TIBIA SHAFT FX,INTRAMED PABLO(Performed 11/30/2022) Performed for Closed fracture of shaft of left tibia, unspecified fracture morphology, initial encounter * PHOSPHORUS BLOOD(Performed 11/30/2022) Performed for Closed fracture of left tibia and fibula, initial encounter * MAGNESIUM BLOOD(Performed 11/30/2022) Performed for Closed fracture of left tibia and fibula, initial encounter * CBC W AUTO DIFFERENTIAL(Performed 11/30/2022) Performed for Closed fracture of left tibia and fibula, initial encounter * BASIC METABOLIC PANEL (CALCIUM TOTAL)(Performed 11/30/2022) Performed for Closed fracture of left tibia and fibula, initial encounter * BLOOD TYPE VERIFICATION(Performed 11/29/2022) * CT ANGIO LOWER EXTREMITY LEFT(Performed 11/29/2022) Performed for Leg injury, left, initial encounter * XR TIBIA FIBULA LEFT 2VW(Performed 11/29/2022) Performed for Leg injury, left, initial encounter * TYPE + SCREEN PANEL(Performed 11/29/2022) * PTT [facility](Performed 11/29/2022) * PT-INR [facility](Performed 11/29/2022) * BASIC METABOLIC PANEL (CALCIUM TOTAL)(Performed 11/29/2022) * CBC W AUTO DIFFERENTIAL(Performed 11/29/2022) * ALCOHOL ETHYL BLOOD(Performed 11/29/2022) * XR TIBIA FIBULA RIGHT 2VW(Performed 11/29/2022) Performed for Leg injury, left, initial encounter * XR FEMUR LEFT 2VW(Performed 11/29/2022) Performed for Leg injury, left, initial encounter * XR FOREARM LEFT 2VW OR MORE(Performed 11/29/2022) Performed for Leg injury, left, initial encounter * XR ANKLE LEFT 3VW OR MORE(Performed 11/29/2022) Performed for Leg injury, left, initial encounter * XR KNEE LEFT 2VW OR LESS(Performed 11/29/2022) Performed for Leg injury, left, initial encounter * XR PELVIS 1 OR 2VW(Performed 11/29/2022) Performed for Leg injury, left, initial encounter * XR TIBIA FIBULA LEFT 2VW(Performed 11/29/2022) Performed for Leg injury, left, initial encounter * XR CHEST 1VW PORTABLE(Performed 11/29/2022) Performed for Leg injury, left, initial encounter * OXYGEN(Performed 11/29/2022) * NC OPEN RX TIBIA SHAFT FX,INTRAMED PABLO Performed for Fracture Results * XR TIBIA FIBULA LEFT 2VW (06/16/2023 9:49 AM CDT) Only the most recent of7 resultswithin the time period is included. Anatomical Region Laterality Modality Lower Extremity Radiographic Haydee ging 06/16/2023 9:53 AM CDT Impressions 06/16/2023 9:54 AM CDT IMPRESSION: Unchanged alignment. > Interpreting Provider: Emiliano Shipley MD on 06/16/2023 9:54 AM Narrative 06/16/2023 9:54 AM CDT PROCEDURE: XR TIBIA FIBULA LEFT 2VW DATE/TIME OF EXAM: 06/16/2023 9:49 AM CLINICAL INFORMATION: None relevant/not provided if blank. Indication: S82.202D: Closed fracture of left tibia and fibula with routine healing, subsequent encounter S82.402D: Closed fracture of left tibia and fibula with routine healing, subsequent encounter Additional History: COMPARISON: 02/17/2023 FINDINGS: Tibial intramedullary nail/screw fixation for a proximal tibial fracture redemonstrated. Hardware is intact and osseous alignment is unchanged. Proximal fibular fracture, unchanged in alignment. Callus has progressed. Procedure Note Emiliano Shipley MD - 06/16/2023 PROCEDURE: XR TIBIA FIBULA LEFT 2VW DATE/TIME OF EXAM: 06/16/2023 9:49 AM CLINICAL INFORMATION: None relevant/not provided if blank. Indication: S82.202D: Closed fracture of left tibia and fibula withroutine healing, subsequent encounter S82.402D: Closed fracture of left tibia and fibula with routine healing, subsequent encounter Additional History: COMPARISON: 02/17/2023 FINDINGS: Tibial intramedullary nail/screw fixation for a proximal tibial fracture redemonstrated. Hardware is intact and osseous alignment is unchanged. Proximal fibular fracture, unchanged in alignment. Callus hasprogressed. IMPRESSION: Unchanged alignment. > Interpreting Provider: Emiliano Shipley MD on 06/16/2023 9:54 AM Felipe Garcia MD DIAGNOSTIC IMAGING O RDERABLES * CARDIAC EKG ORDER (12/07/2022 6:14 PM OIL DIPPER) Narrative 12/07/2022 6:14 PM OIL DIPPER Ordered by an unspecified provider. Scanned Document CARDIAC SERVICES ORD ERABLES * (ABNORMAL) CBC W/O DIFFERENTIAL (12/06/2022 1:09 AM OIL DIPPER) Only the most recent of8 resultswithin the time period is included. WBC 5.3 3.5 - 10.5 10 3/uL 12/06/2022 1:54 AM OIL D[facility] RBC 2.90(L) 4.30 - 5.70 10 6/uL 12/06/2022 1:54 AM O[facility] D[facility] Hemoglobin 8.5(L) 12.0 - 17.6 g/dL 12/06/2022 1:54 AM [facility] Hematocrit 26.2(L) 35.2 - 51.7 % 12/06/2022 1:54 AM [facility] MCV 90.3 80.7 - 98.3 fL 12/06/2022 1:54 AM [facility] MCH 29.3 26.7 - 34.0 pg 12/06/2022 1:54 AM [facility] MCHC 32.4 30.8 - 35.9 g/dL 12/06/2022 1:54 AM [facility] RDW-SD 53.4(H) 36.0 - 50.0 fL 12/06/2022 1:54 AM [facility] RDW-CV 16.6(H) 11.2 - 14.8 % 12/06/2022 1:54 AM [facility] Platelet Count 167 150 - 400 10 3/uL 12/06/2022 1:54 AM [facility] MPV 10.1 9.4 - 12.9 fL 12/06/2022 1:54 AM [facility] nRBC Absolute 0.00 0 10 3/uL 12/06/2022 1:54 AM [facility] nRBC Auto 0.0 0 /100 WBC 12/06/2022 1:54 AM [facility] Blood BLOOD SPECIMEN / Unknown Lab Venipuncture / Unknown 12/06/2022 1:09 AM OIL DIPPER 12/06/2022 1:28 AM [facility] Felipe Garcia MD LAB - HEMATOLOGY ORD ERABLES [facility] [address] [place] [address], [facility] [phone] * (ABNORMAL) BASIC METABOLIC PANEL (CALCIUM TOTAL) (12/06/2022 1:09 AM [facility]) Only the most recent of7 resultswithin the time period is included. BUN 12 7 - 26 mg/dL 12/06/2022 2:03 AM [facility] Creatinine 0.88 0.71 - 1.16 mg/dL 12/06/2022 2:03 AM [facility] Sodium 141 136 - 145 mmol/L 12/06/2022 2:03 AM [facility] Potassium 4.0 3.5 - 4.5 mmol/L 12/06/2022 2:03 AM [facility] Chloride 106 98 - 107 mmol/L 12/06/2022 2:03 AM [facility] CO2 27 22 - 29 mmol/L 12/06/2022 2:03 AM [facility] Glucose 88 70 - 115 mg/dL 12/06/2022 2:03 AM [facility] Calcium 7.6(L) 8.4 - 10.2 mg/dL 12/06/2022 2:03 AM [facility] Anion Gap 12 8 - 18 12/06/2022 2:03 AM [facility] BUN/Creatinine Ratio 14 7 - 23 12/06/2022 2:03 AM [facility] Osmolality Calculated 291 270 - 300 mOsm/kg 12/06/2022 2:03 AM [facility] eGFR by CKD-EPI >90 >=90 mL/min/1.7 3 m2 12/06/2022 2:03 AM [facility] Blood BLOOD SPECIMEN / Unknown Lab Venipuncture / Unknown 12/06/2022 1:09 AM OIL DIPPER 12/06/2022 1:28 AM OIL DIPPER Caterina Lind MD LAB - CHEMISTRY ORDMagdalena MCCOY [facility] [address] [place] [address], [facility] [phone] * PHOSPHORUS BLOOD (12/06/2022 1:09 AM OIL DIPPER) Only the most recent of7 resultswithin the time period is included. Phosphorus 3.0 2.8 - 5.1 mg/dL 12/06/2022 2:03 AM [facility] Blood BLOOD SPECIMEN / Unknown Lab Venipuncture / Unknown 12/06/2022 1:09 AM OIL DIPPER 12/06/2022 1:28 AM OIL DIPPER Caterina Lind MD LAB - CHEMISTRY ORDMagdalena MCCOY [address] [address], [place] [phone] * MAGNESIUM BLOOD (12/06/2022 1:09 AM OIL DIPPER) Only the most recent of7 resultswithin the time period is included. Magnesium 1.8 1.6 - 2.6 mg/dL 12/06/2022 2:03 AM [facility] Blood BLOOD SPECIMEN / Unknown Lab Venipuncture / Unknown 12/06/2022 1:09 AM OIL DIPPER 12/06/2022 1:28 AM OIL DIPPER Caterina Lind MD LAB - CHEMISTRY BAKARI MCCOY Performing Organization Address City/[facility]/ZIP Co de Phone Number [address] [address], [place] [phone] * (ABNORMAL) IRON + TRANSFERRIN PANEL (12/05/2022 1:17 AM OIL DIPPER) Iron 26(L) 50 - 175 ug/dL 12/05/2022 2:27 AM [facility] Transferrin 164(L) 174 - 382 mg/dL 12/05/2022 2:27 AM [facility] Transferrin Saturation % 13(L) 16 - 50 % 12/05/2022 2:27 AM [facility] TIBC Calculated 205(L) 240 - 450 ug/dL 12/05/2022 2:27 AM [facility] Blood BLOOD SPECIMEN / Unknown Lab Venipuncture / Unknown 12/05/2022 1:17 AM OIL DIPPER 12/05/2022 2:12 AM OIL DIPPER Fernanda Guzman PA-C LAB - CHEMIS TRY ORDERABLES Performing Organization Address City/[facility]/ZIP Co de Phone Number [address] [address], [place] [phone] * FERRITIN (12/05/2022 1:17 AM OIL DIPPER) Ferritin 81 22 - 275 ng/mL 12/05/2022 2:44 AM [facility] Blood BLOOD SPECIMEN / Unknown Lab Venipuncture / Unknown 12/05/2022 1:17 AM OIL DIPPER 12/05/2022 2:12 AM OIL DIPPER Fernanda Guzman PA-C LAB - CHEMIS TRY ORDERABLES [facility] [address] [place] [address], [facility] [phone] * (ABNORMAL) CBC W AUTO DIFFERENTIAL (12/04/2022 1:07 PM OIL DIPPER) Only the most recent of4 resultswithin the time period is included. WBC 5.3 3.5 - 10.5 10 3/uL 12/04/2022 2:23 PM [facility] RBC 3.07(L) 4.30 - 5.70 10 6/uL 12/04/2022 2:23 PM [facility] Hemoglobin 9.0(L) 12.0 - 17.6 g/dL 12/04/2022 2:23 PM [facility] Hematocrit 28.2(L) 35.2 - 51.7 % 12/04/2022 2:23 PM [facility] MCV 91.9 80.7 - 98.3 fL 12/04/2022 2:23 PM [facility] MCH 29.3 26.7 - 34.0 pg 12/04/2022 2:23 PM [facility] MCHC 31.9 30.8 - 35.9 g/dL 12/04/2022 2:23 PM [facility] RDW-SD 55.5(H) 36.0 - 50.0 fL 12/04/2022 2:23 PM [facility] RDW-CV 16.8(H) 11.2 - 14.8 % 12/04/2022 2:23 PM [facility] Platelet Count 157 150 - 400 10 3/uL 12/04/2022 2:23 PM [facility] Comment:Checked by periphera l smear. MPV 12/04/2022 2:23 PM [facility] Comment: Unable to Report This is a corrected result. Previous result was 10.8 fL on 12/04/2022 at 1338 OIL DIPPER Immature Platelet Fraction 12/04/2022 2:23 PM [facility] Comment: Unable to Report This is a corrected result. Previous result was 4.2 % on 12/04/2022 at 1338 OIL DIPPER nRBC Absolute 0.00 0 10 3/uL 12/04/2022 2:23 PM [facility] nRBC Auto 0.0 0 /100 WBC 12/04/2022 2:23 PM [facility] Neutrophils % 70.8(H) 35.0 - 70.0 % 12/04/2022 2:23 PM [facility] Lymphocytes % 13.7(L) 20.0 - 43.0 % 12/04/2022 2:23 PM [facility] Monocytes % 7.8 5.0 - 13.0 % 12/04/2022 2:23 PM [facility] Eosinophils % 6.5(H) 0.0 - 6.0 % 12/04/2022 2:23 PM [facility] Basophil % 0.6 0.0 - 2.0 % 12/04/2022 2:23 PM [facility] Neutrophils Absolute 3.72 1.60 - 7.00 10 3/uL 12/04/2022 2:23 PM [facility] Lymphocyte Absolute 0.72(L) 1.10 - 3.90 10 3/uL 12/04/2022 2:23 PM [facility] Monocytes Absolute 0.41 0.26 - 1.07 10 3/uL 12/04/2022 2:23 PM [facility] Eosinophils Absolute 0.34 0.00 - 0.47 10 3/uL 12/04/2022 2:23 PM [facility] Basophils Absolute 0.03 0.00 - 0.08 10 3/uL 12/04/2022 2:23 PM [facility] Immature Granulocytes % 0.6 0.0 - 1.0 % 12/04/2022 2:23 PM [facility] Immature Granulocytes Absolute 0.03 12/04/2022 2:23 PM [facility] Blood BLOOD SPECIMEN / Unknown Lab Venipuncture / Unknown 12/04/2022 1:07 PM [facility] 12/04/2022 1:15 PM [facility] Felipe Garcia MD LAB - HEMATOLOGY ORD [facility] [address] [place] [address], [facility] [phone] * (ABNORMAL) HEPATIC FUNCTION PANEL (12/04/2022 1:07 PM [facility]) Protein Total 4.5(L) 6.0 - 8.3 g/dL 023 1:40 PM [facility] Albumin 1.9(L) 3.4 - 5.0 g/dL 12/04/2022 1:40 PM [facility] Bilirubin Total 0.8 0.2 - 1.2 mg/dL 12/2022 1:40 PM [facility] Bilirubin Conjugated 0.4 0.1 - 0.5 mg/dL 12/04/2022 1:40 PM [facility] Bilirubin Unconjugated 0.4 Unconjugated Bilirubin is a calculated value: Reference ranges have not been established. mg/dL 12/04/2022 1:40 PM [facility] Alkaline Phosphatase 70 40 - 150 U/L 12/04/2022 1:40 PM [facility] ALT 5 5 - 55 U/L 12/04/2022 1:40 PM [facility] AST 12 5 - 34 U/L 12/04/2022 1:40 PM [facility] Albumin/Globulin Ratio 0.7(L) 1.1 - 2.3 12/04/2022 1:40 PM [facility] Blood BLOOD SPECIMEN / Unknown Lab Venipuncture / Unknown 12/04/2022 1:07 PM OIL DIPPER 12/04/2022 1:15 PM OIL DIPPER Felipe Garcia MD LAB - CHEMISTRY BAKARI MCCOY [facility] [address] [place] [address], [facility] [phone] * LDH BLOOD (12/04/2022 1:07 PM OIL DIPPER) LDH Total 184 125 - 243 Units/L 12/04/2022 1:40 PM OIL DIPPER [facility] Blood BLOOD SPECIMEN / Unknown Lab Venipuncture / Unknown 12/04/2022 1:07 PM OIL DIPPER 12/04/2022 1:15 PM OIL DIPPER Felipe Garcia MD LAB - CHEMISTRY BAKARI MCCOY Performing Organization Address City/[facility]/ZIP Co de Phone Number [address] [address], [place] [phone] * HAPTOGLOBIN (12/04/2022 1:07 PM OIL DIPPER) Pathologist [facility] Haptoglobin 168 14 - 258 mg/dL 12/04/2022 1:51 PM OIL DIPPER [facility] Blood BLOOD SPECIMEN / Unknown Lab Venipuncture / Unknown 12/04/2022 1:07 PM OIL DIPPER 12/04/2022 1:13 PM OIL DIPPER Felipe Garcia MD LAB - CHEMISTRY BAKARI MCCOY Performing Organization Address [facility]/ZIP Co de Phone Number [address] [address], [place] [phone] * (ABNORMAL) HEMOGLOBIN (12/03/2022 7:55 AM OIL DIPPER) Pathologist [facility] Hemoglobin 9.1(L) 12.0 - 17.6 g/dL 12/03/2022 8:15 AM OIL DIPPER [facility] Blood BLOOD SPECIMEN / Unknown Venipuncture / Unknown 12/03/2022 7:55 AM OIL DIPPER 12/03/2022 7:59 AM OIL DIPPER Felipe Garcia MD LAB - HEMATOLOGY ORLANDO NOONAN Performing Organization Address [facility]/ZIP Co de Phone Number [address] [address], [place] [phone] * PREPARE (CROSSMATCH) RBC UNIT(S), 1 Units (12/03/2022 4:06 AM OIL DIPPER) Only the most recent of2 resultswithin the time period is included. Unit Description AS1 LR PRBC [facility] LAB Unit ABO O [facility] Unit Rh POS [facility] Product Number R02 [facility] B LO[facility] B[facility] LAB Unit Donor # [id number] [facility] Unit Status transfused [facility] B[facility] OD [facility] Product Code [id number] [facility] BLO OD [facility]ANK LAB Blood Type Barcode 5100 [facility] Expiration Date [id number] S BLOOD BANK LAB Blood Bank BLOOD SPECIMEN / Unknown 12/03/2022 3:07 AM OIL DIPPER Felipe Garcia MD LAB - BLOOD BANK ORD ERABLES Performing Organization Address City/[facility]/ZIP Co de Phone Number [facility] [address] [place] [address], [place] [phone] * TYPE + SCREEN PANEL (12/03/2022 2:57 AM OIL DIPPER) Only the most recent of2 resultswithin the time period is included. Antibody Screen NEG 3:49 AM OIL DIPPER [facility] LAB ABO Rh O POS 12/03/2022 3:49 AM OIL DIPPER [facility] B[facility]OD [facility] LAB Blood Bank BLOOD SPECIMEN / Unknown Venipuncture / Unknown 12/03/2022 2:57 AM OIL DIPPER 12/03/2022 3:07 AM OIL DIPPER Felpie Garcia MD LAB - BLOOD BANK ORD ERABLES [facility] [address] [place] [address], [place] [phone] * TRANSFUSE RED BLOOD CELL LEUKOREDUCED UNIT(S) (12/01/2022 3:04 AM OIL DIPPER) Felipe Garcia MD NURSING - BLOOD PROD TRANSFUSION * TRANSFUSE RED BLOOD CELL LEUKOREDUCED UNIT(S) (12/01/2022 2:13 AM OIL DIPPER) Felipe Garcia MD NURSING - BLOOD PROD TRANSFUSION * LACTIC ACID BLOOD (12/01/2022 12:42 AM OIL DIPPER) Lactic Acid-Stat 1.2 <=2.0 mmol/L 12/01/2022 1:17 AM [facility] Blood BLOOD SPECIMEN / Unknown Venipuncture / Unknown 12/01/2022 12:42 AM OIL DIPPER 12/01/2022 12:57 AM OIL DIPPER Felipe Garcia MD LAB - CHEMISTRY BAKARI MCCOY [facility] Organization Address City/State/ZIP Co de Phone Number [facility] [address] [place] [address], [facility] [phone] * (ABNORMAL) BLOOD GASES ART + COOX PANEL (12/01/2022 12:42 AM [facility]) Pathologist [facility] pH Arterial 7.43 7.35 - 7.45 pH 12/01/2022 12:54 AM [facility] pO2 Arterial 91 80 - 100 mmHg 12/01/2022 12:54 AM [facility] pCO2 Arterial 40 35 - 45 mmHg 12:54 AM [facility] HCO3 Arterial 27 20 - 30 mmol/l 12/01/2022 12:54 AM [facility] BE Arterial 2.0 -2.0 - 2.0 mmol/L 12/01/2022 12:54 AM [facility] Oxyhemoglobin Arterial 97.1 % 12/01/2022 12:54 AM [facility] Dexoyhemoglobin (HHB) % 1.9 % 12/01/2022 12:54 AM [facility] Methemoglobin <0.8 0.0 - 2.0 % 12/01/2022 12:54 AM [facility] Carboxyhemoglobin 1.0 0.0 - 2.0 % 2022 12:54 AM [facility] O2 Content Arterial 7.8 Interpret within clinical context ml/dL 12/01/2022 12:54 AM [facility] Hemoglobin by COOX 5.6(LL) 12.0 - 17.6 g/dL 12/01/2022 12:54 AM [facility] O2 Saturation Arterial 98 90 - 100 % 12/01/2022 12:54 AM OIL DIPPER [facility] FI O2 Arterial 21.0 % 12/01/2022 12:54 AM [facility] Blood, arterial ARTERIAL BLOOD SPECIMEN / Unknown Arterial Puncture / Unknown 12/01/2022 12:42 AM OIL DIPPER 12/01/2022 12:44 AM OIL DIPPER Narrative [facility] - 12/01/2022 12:54 AM OIL DIPPER Carboxyhemoglobin Normal Concentration: Non-smokers: 0-2%; Smokers: 0-9%; Toxic: >20% Felipe Garcia MD LAB - BLOOD GASES OR DERABLES [facility] [address] [place] [address], [facility] [phone] * EKG 12-LEAD (12/01/2022 12:36 AM OIL DIPPER) Ventricular Rate 69 BPM SL MUSE Atrial Rate 69 BPM [facility] MUSE P-R Interval 146 ms [facility] MUSE QRS Duration ms 84 ms [facility] MUSE Q-T Interval ms 420 ms [facility] MUSE QTC Calculation (Bezet) 450 ms [facility] MUSE Calculated P Gardner 28 degrees SL MUSE Calculated R Gardner 41 degrees [facility] MUSE Calculated T Gardner 56 degrees [facility] MUSE Interpretation EKG NORMAL SINUS RHYTHM LOW VOLTAGE QRS BORDERLINE ECG NO PREVIOUS ECGS AVAILABLE Confirmed by KENZIE PINEDA MD ([id number]) on 12/28/2022 7:14:54 AM [facility] MUSE 12/01/2022 12:3 6 AM OIL DIPPER 12/28/2022 7:14 AM CDT Felipe Garcia MD ECG ORDERABLES [facility] MUSE * TROPONIN-I HIGH SENSITIVE (12/01/2022 12:31 AM OIL DIPPER) Troponin I High Sensitive 6 <=35 ng/L 12/01/2022 1:22 AM OIL DIPPER [facility] Blood BLOOD SPECIMEN / Unknown Venipuncture / Unknown 12/01/2022 12:31 AM OIL DIPPER 12/01/2022 12:46 AM OIL DIPPER Felipe Garcia MD LAB - CHEMISTRY ORDMagdalena AZIZAANNABELLE Performing Organization Address [facility]/ZIP Co de Phone Number [facility] [address] [place] [address], [facility] [phone] * (ABNORMAL) PT-INR [facility] (12/01/2022 12:31 AM OIL DIPPER) Only the most recent of2 resultswithin the time period is included. Pathologist [facility] PT 15.3(H) 12.1 - 14.8 Seconds 12/01/2022 1:12 AM [facility] INR 1.2 See Comment 12/01/2022 1:12 AM [facility] Comment:The suggested therap eutic range for standard coumadin (warfarin) therapy is an INR of 2.0-3.0. For high-risk patients (Mechanical Mitral Valve Prosthesis, etc.), the suggested prophylactic therapeutic range is an INR of 2.5-3.5. Blood BLOOD SPECIMEN / Unknown Venipuncture / Unknown 12/01/2022 12:31 AM OIL DIPPER 12/01/2022 12:46 AM [facility] Felipe Garcia MD LAB - COAGULATION OR DERABLES Performing Organization Address [facility]/ZIP Co de Phone Number [facility] [address] [place] [address], [facility] [phone] * (ABNORMAL) COMPREHENSIVE METABOLIC PANEL (12/01/2022 12:31 AM OIL DIPPER) Pathologist [facility] BUN 22 7 - 26 mg/dL 12/01/2022 1:15 AM [facility] Creatinine 1.19(H) 0.71 - 1.16 mg/dL 12/01/2022 1:15 AM [facility] Sodium 138 136 - 145 mmol/L 12/01/2022 1:15 AM [facility] Potassium 4.6(H) 3.5 - 4.5 mmol/L 12/01/2022 1:15 AM [facility] Chloride 108(H) 98 - 107 mmol/L 12/01/2022 1:15 AM [facility] CO2 23 22 - 29 mmol/L 12/01/2022 1:15 AM [facility] Glucose 146(H) 70 - 115 mg/dL 12/01/2022 1:15 AM [facility] Calcium 7.1(L) 8.4 - 10.2 mg/dL 12/01/2022 1:15 AM [facility] Protein Total 3.6(L) 6.0 - 8.3 g/dL 12/01/2022 1:15 AM [facility] Albumin 1.7(L) 3.4 - 5.0 g/dL 12/01/2022 1:15 AM [facility] Bilirubin Total 0.3 0.2 - 1.2 mg/dL 12/01/2022 1:15 AM [facility] Alkaline Phosphatase 46 40 - 150 U/L 12/01/2022 1:15 AM [facility] ALT 8 5 - 55 U/L 12/01/2022 1:15 AM [facility] AST 12 5 - 34 U/L 12/01/2022 1:15 AM [facility] Anion Gap 12 8 - 18 12/01/2022 1:15 AM [facility] BUN/Creatinine Ratio 18 7 - 23 12/01/2022 1:15 AM [facility] Osmolality Calculated 292 270 - 300 mOsm/kg 12/01/2022 1:15 AM [facility] Albumin/Globulin Ratio 0.9(L) 1.1 - 2.3 12/01/2022 1:15 AM [facility] eGFR by CKD-EPI 69(L) >=90 mL/min/1.7 3 m2 12/01/2022 1:15 AM [facility] Blood BLOOD SPECIMEN / Unknown Venipuncture / Unknown 12/01/2022 12:31 AM OIL DIPPER 12/01/2022 12:46 AM [facility] Felipe Garcia MD LAB - CHEMISTRY BAKARI MCCOY [facility] Organization Address City/State/ZIP Co de Phone Number [facility] [address] [place] [address], [facility] [phone] * (ABNORMAL) GLUCOSE - POINT OF CARE (12/01/2022 12:25 AM OIL DIPPER) Glucose WB/POC 171(H) 70 - 115 mg/dL 12/01/2022 12:30 AM OIL DIPPER [facility] Specimen Type Cap Fingerstick 2022 12:30 AM OIL DIPPER [facility] Blood BLOOD SPECIMEN / Unknown 12/01/2022 12:25 AM OIL DIPPER 12/01/2022 12:30 AM OIL DIPPER Felipe Garcia MD LAB - POINT OF CARE ORDERABLES [facility] [address] [place] [address], [facility] [phone] * FL ROGER SURGERY (11/30/2022 9:58 AM OIL DIPPER) Narrative [facility] RADIOLOGY - 11/30/2022 9:59 AM OIL DIPPER Fluoroscopy was used for this exam in the OR. Please see the Operative report. Felipe Garcia MD FLUOROSCOPY ORDERABL ES [facility] * ETT LINE PERFORMABLE (11/30/2022 7:57 AM OIL DIPPER) Narrative Arnold Barahona Anes Asst - 11/30/2022 7:57 AM OIL DIPPER Arnold Barahona Anes Asst 11/30/2022 7:58 AM Endotracheal Tube Placement: Patient Location: OR. Intubation Event Date/Time: 11/30/2022 7:26 AM Procedure: intubation ([id number]). Procedure Section: Sedation: under general anesthesia. Indications for Airway Management: anesthesia Procedure pretreatments used? No Induction: standard IV Patient Position: sniffing and supine Mask Ventilation: easy. Blade Type: Dang Blade Size: 2 Laryngoscopy View: grade 1 (full cords) Intubation Adjuncts: stylet Tube: endotracheal tube Placement: oral Tube type: cuff - inflated Tube Size (MM): 8 Depth of Insertion (CM): 21 Measured From: teeth Cuff volume (mL): 8 Cuff Inflated With: air Number of Attempts: 1. Placement Verified By: direct visualization, bilateral breath sounds, chest auscultation and CO2 detector CXR Findings: ETT in proper place. Tube secured with: adhesive tape and ETT mccarthy. Dentition unchanged? Yes Difficult Airway? No. Procedure Start Time: 11/30/2022 7:26 AM. Staff Section Anesthesia Provider: Arnold Barahona Anes Asst, Performed the procedure Provider #1: Ren Cross MD. Ren Cross MD GENERAL ANESTHESIA O RDERABLES * BLOOD TYPE VERIFICATION (11/29/2022 11:03 PM OIL DIPPER) ABO Rh O POS 11/30/2022 12:26 AM OIL DIPPER [facility] BLOOD [facility] LAB Blood Bank BLOOD SPECIMEN / Unknown 11/29/2022 11:03 PM OIL DIPPER 11/30/2022 12:00 AM OIL DIPPER Abby Weller MD LAB - BLOOD BANK ORD ERABLES [facility] LAB [address] [place] [address], [facility] [phone] * CT ANGIO LOWER EXTREMITY LEFT (11/29/2022 3:46 PM OIL DIPPER) Anatomical Region Laterality Modality Lower Extremity Computed Tomogra phy 11/29/2022 3:33 PM OIL DIPPER Impressions 11/29/2022 6:56 PM OIL DIPPER Impression: 1.No acute arterial injury in the left lower extremity. Patent three-vessel runoff. 2.Comminuted fracture of the proximal tibial metadiaphysis, 4 mm depressed lateral tibial plateau fracture, and nondisplaced fractures through the tibial spine and medial tibial plateau. 3.Comminuted fractures of the fibular head/proximal fibular metadiaphysis. 4.Mixed density hematoma between the medial gastrocnemius and soleus measuring 5.4 x 1.5 x 11.4 cm. > Dictated by Edward Anguiano DO (physician president). I, Sheldon Seo MD have personally reviewed and interpreted this examination/study. > Interpreting Provider: Sheldon Seo MD on 11/29/2022 6:56 PM Narrative 11/29/2022 6:56 PM OIL DIPPER PROCEDURE: CT ANGIO LOWER EXTREMITY LEFT, DATE/TIME OF EXAM: 11/29/2022 3:46 PM, LOCATION [facility] INDICATION: S89.92XA: Leg injury, left, initial encounter ADDITIONAL CLINICAL INFORMATION: Ordering Provider Reason For Exam: fracture COMPARISON: Left tibia-fibula x-ray dated 11/29/2022 TECHNIQUE: CT angiography of the abdomen, pelvis, and lower extremities was performed following the uneventful administration of 100 mL of Isovue 370 intravenous contrast according to standard protocol. Three dimensional postprocessing was performed by the technologist and sent to the workstation for review. Findings: Angiographic findings: Visualized left common iliac artery: Patent without significant focal stenosis. Left internal iliac artery: Atherosclerotic but patent without significant focal stenosis. Left external iliac artery: Patent without significant focal stenosis. Left common femoral artery: Patent without significant focal stenosis. Left profunda femoris artery: Patent without significant focal stenosis. Left superficial femoral artery: Patent without significant focal stenosis. Left popliteal artery: Patent without significant focal stenosis. Left anterior tibial artery: Patent without significant focal stenosis. This vessel crosses the ankle and supplies the dorsalis pedis artery. Left tibioperoneal trunk: Supplies the anterior tibial and peroneal arteries. Patent without significant focal stenosis. Left posterior tibial artery: Patent without significant focal stenosis. This vessel crosses the ankle and supplies the plantar artery. Left peroneal artery: Patent without significant focal stenosis. The visualized right common iliac, external iliac, and internal iliac arteries appear normal. Nonangiographic findings: Partially visualized posterior spinal fusion hardware in the sacrum and an interbody spacer at L5-S1. Visualized intra-abdominal organs are unremarkable. A splint overlies the leg. Comminuted fracture of the proximal tibial metadiaphysis with approximately 1 cm medial displacement. Comminuted, mildly depressed lateral tibial plateau fracture with approximately 4 mm depression. Nondisplaced fracture line extending to the tibial spine and medial tibial plateau. Comminuted fracture of the fibular head with extension to the proximal metadiaphysis. Mixed density predominantly hypodense hematoma between the medial gastrocnemius and soleus measuring 5.4 x 1.5 cm in transaxial dimensions (series 8, image 706) and 11.4 cm in craniocaudal dimensions (series 11, image 152). Diffuse subcutaneous edema throughout the distal thigh and lower leg with confluent focal areas of edema/hemorrhage in the subcutaneous soft tissues of the proximal medial leg. Procedure Note Sheldon Seo MD - 11/29/2022 PROCEDURE: CT ANGIO LOWER EXTREMITY LEFT, DATE/TIME OF EXAM: 11/29/2022 3:46 PM, LOCATION [facility] INDICATION: S89.92XA: Leg injury, left, initial encounter ADDITIONAL CLINICAL INFORMATION: Ordering Provider Reason For Exam: fracture COMPARISON: Left tibia-fibula x-ray dated 11/29/2022 TECHNIQUE: CT angiography of the abdomen, pelvis, and lower extremitieswas performed following the uneventful administration of 100 mL of [id number] intravenous contrast according to standard protocol. Three dimensional postprocessing was performed by the technologist and sent to the workstation for review. Findings: Angiographic findings: Visualized left common iliac artery: Patent without significant focal stenosis. Left internal iliac artery: Atherosclerotic but patent withoutsignificant focal stenosis. Left external iliac artery: Patent without significant focal stenosis. Left common femoral artery: Patent without significant focal stenosis. Left profunda femoris artery: Patent without significant focal stenosis. Left superficial femoral artery: Patent without significant focalstenosis. Left popliteal artery: Patent without significant focal stenosis. Left anterior tibial artery: Patent without significant focal stenosis. This vessel crosses the ankle and supplies the dorsalis pedis artery. Left tibioperoneal trunk: Supplies the anterior tibial and peroneal arteries. Patent without significant focal stenosis. Left posterior tibial artery: Patent without significant focal stenosis. This vessel crosses the ankle and supplies the plantar artery. Left peroneal artery: Patent without significant focal stenosis. The visualized right common iliac, external iliac, and internal iliac arteries appear normal. Nonangiographic findings: Partially visualized posterior spinal fusion hardware in the sacrum andan interbody spacer at L5-S1. Visualized intra-abdominal organs are unremarkable. A splint overlies the leg. Comminuted fracture of the proximal tibial metadiaphysis with approximately 1 cm medial displacement. Comminuted, mildly depressed lateral tibial plateau fracture with approximately 4 mm depression. Nondisplaced fracture line extending to the tibial spine and medial tibial plateau. Comminuted fracture of the fibular head with extension to the proximal metadiaphysis. Mixed density predominantly hypodense hematoma between the medial gastrocnemius and soleus measuring 5.4 x 1.5 cm in transaxial dimensions (series 8, image 706) and 11.4 cm in craniocaudal dimensions (series 11, image 152). Diffuse subcutaneous edema throughout the distal thigh and lower legwith confluent focal areas of edema/hemorrhage in the subcutaneous softtissues of the proximal medial leg. Impression: 1.No acute arterial injury in the left lower extremity. Patentthree-vessel runoff. 2.Comminuted fracture of the proximal tibial metadiaphysis, 4 mmdepressed lateral tibial plateau fracture, and nondisplaced fractures through the tibial spine and medial tibial plateau. 3.Comminuted fractures of the fibular head/proximal fibularmetadiaphysis. 4.Mixed density hematoma between the medial gastrocnemius and soleus measuring 5.4 x 1.5 x 11.4 cm. > Dictated by Edward Anguiano DO (physician president). I, Sheldon Seo MD have personally reviewed and interpreted this examination/study. > Interpreting Provider: Sheldon Seo MD on 36:56 PM Jayce Price MD CT ORDERABLES * PTT [facility] (11/29/2022 2:51 PM OIL DIPPER) Pathologist [facility] APTT 34.9 23.0 - 38.4 Seconds 11/29/2022 3:18 PM OIL DIPPER [facility] Comment:Suggested therapeuti c range for full dose I.V. unfractionated heparin therapy for venous thromboembolism is 71 to 109 seconds. Blood BLOOD SPECIMEN / Unknown Venipuncture / Unknown 11/29/2022 2:51 PM OIL DIPPER 11/29/2022 2:57 PM OIL DIPPER Deacon Buckley DO LAB - COAGULATION OR DERABLES [address] [address], [facility] [phone] * ALCOHOL ETHYL BLOOD (11/29/2022 2:51 PM OIL DIPPER) Pathologist [facility] Ethanol (mg/dL) <10 <10 mg/dL 3:23 PM OIL DIPPER [facility] Ethanol Calculated (g/dL) <0.010 <=0.010 g/dL 11/29/2022 3:23 PM OIL DIPPER [facility] Blood BLOOD SPECIMEN / Unknown Venipuncture / Unknown 11/29/2022 2:51 PM OIL DIPPER 11/29/2022 2:57 PM OIL DIPPER Narrative [facility] - 11/29/2022 3:23 PM OIL DIPPER Ethanol Interp <10: None Detected. Depression of DIALYSIS PATIENT CARE TECHNICIAN: >100 mg/dl Potentially Critical: >250 mg/dl Potentially Fatal >400 mg/dl Ethanol in the patient's blood will contribute to the osmolar gap. Ethanol's contribution to the osmolar gap can be estimated by dividing the concentration of ethanol in mg/dL by 4.6. This test is for clinical use only and does not equal a AMANDA for legal purposes. Deacon Buckley DO LAB - CHEMISTRY BAKARI MCCOY [facility] Organization Address City/State/ZIP Co de Phone Number [address] [address], [facility] [phone] * XR TIBIA FIBULA RIGHT 2VW (11/29/2022 2:48 PM OIL DIPPER) Anatomical Region Laterality Modality Lower Extremity Radiographic Haydee ging 11/29/2022 3:12 PM OIL DIPPER Narrative 11/29/2022 3:14 PM OIL DIPPER EXAMINATION: XR TIBIA FIBULA RIGHT 2VW HISTORY: S89.92XA: Leg injury, left, initial encounter COMPARISON: No prior study is available for comparison. FINDINGS/IMPRESSION: No acute fracture or dislocation is identified. Generalized soft tissue edema seen throughout the lower extremity. > Interpreting Provider: YENNI SCHWARTZ MD on 11/29/2022 3:14 PM Procedure Note Yenni Schwartz MD - 11/29/2022 EXAMINATION: XR TIBIA FIBULA RIGHT 2VW HISTORY: S89.92XA: Leg injury, left, initial encounter COMPARISON: No prior study is available for comparison. FINDINGS/IMPRESSION: No acute fracture or dislocation is identified. Generalized soft tissue edema seen throughout the lower extremity. > Interpreting Provider: YENNI SCHWARTZ MD on 11/29/2022 3:14 PM Deacon Cotto Ina DO DIAGNOSTIC IMAGING O RDERABLES * XR FEMUR LEFT 2VW (11/29/2022 2:48 PM OIL DIPPER) Anatomical Region Laterality Modality Lower Extremity Radiographic Haydee ging 11/29/2022 3:05 PM OIL DIPPER Impressions 11/29/2022 3:07 PM OIL DIPPER IMPRESSION: 1.No acute fracture or dislocation identified. > Interpreting Provider: YENNI SCHWARTZ MD on 11/29/2022 3:07 PM Narrative 11/29/2022 3:07 PM OIL DIPPER EXAMINATION: XR FEMUR LEFT 2VW HISTORY: S89.92XA: Leg injury, left, initial encounter COMPARISON: No prior study is available for comparison. FINDINGS: Partially imaged lumbosacral spinal fusion hardware. No acute fracture or dislocation in the femur. Partially imaged soft tissue edema of the lower thigh/knee. Procedure Note Yenni Schwartz MD - 11/29/2022 EXAMINATION: XR FEMUR LEFT 2VW HISTORY: S89.92XA: Leg injury, left, initial encounter COMPARISON: No prior study is available for comparison. FINDINGS: Partially imaged lumbosacral spinal fusion hardware. No acute fracture or dislocation in the femur. Partially imaged softtissue edema of the lower thigh/knee. IMPRESSION: 1.No acute fracture or dislocation identified. > Interpreting Provider: YENNI SCHWARTZ MD on 11/29/2022 3:07 PM Deacon A Ina [facility] * XR FOREARM LEFT 2VW (11/29/2022 2:47 PM OIL DIPPER) Anatomical Region Laterality Modality Upper Extremity Radiographic Haydee ging 11/29/2022 3:10 PM OIL DIPPER Impressions 11/29/2022 3:12 PM OIL DIPPER IMPRESSION: 1.No definite acute fracture or dislocation. Ossification adjacent the radial head is favored to represent degenerative change. Consider dedicated elbow radiograph if clinically indicated. > Interpreting Provider: YENNI SCHWARTZ MD on 11/29/2022 3:12 PM Narrative 11/29/2022 3:12 PM OIL DIPPER EXAMINATION: XR FOREARM LEFT 2VW HISTORY: S89.92XA: Leg injury, left, initial encounter COMPARISON: No prior study is available for comparison. FINDINGS: No acute fractures identified. Likely degenerative changes around the radial head. Osseous alignment is normal without dislocation. Heterogeneous gas is seen in the region of the antecubital fossa IV. Procedure Note Yenni Schwartz MD - 11/29/2022 EXAMINATION: XR FOREARM LEFT 2VW HISTORY: S89.92XA: Leg injury, left, initial encounter COMPARISON: No prior study is available for comparison. FINDINGS: No acute fractures identified. Likely degenerative changes around the radial head. Osseous alignment is normal without dislocation.Heterogeneous gas is seen in the region of the antecubital fossa IV. IMPRESSION: 1.No definite acute fracture or dislocation. Ossification adjacent the radial head is favored to represent degenerative change. Considerdedicated elbow radiograph if clinically indicated. > Interpreting Provider: YENNI SCHWARTZ MD on 11/29/2022 3:12 PM Deacon Buckley DO DIAGNOSTIC IMAGING O RDERABLES * XR ANKLE LEFT 3VW OR MORE (11/29/2022 2:46 PM OIL DIPPER) Anatomical Region Laterality Modality Lower Extremity Radiographic Haydee ging 11/29/2022 3:08 PM OIL DIPPER Impressions 11/29/2022 3:10 PM OIL DIPPER IMPRESSION: 1.No acute fracture or dislocation identified. > Interpreting Provider: YENNI SCHWARTZ MD on 11/29/2022 3:10 PM Narrative 11/29/2022 3:10 PM OIL DIPPER EXAMINATION: XR ANKLE LEFT 3VW OR MORE HISTORY: S89.92XA: Leg injury, left, initial encounter COMPARISON: No prior study is available for comparison. FINDINGS: No acute fracture or dislocation is identified. The medial and lateral clear spaces are maintained. The talar dome is intact. The imaged forefoot is intact. Soft tissue edema is seen in the proximal lower leg. Curvilinear radiopaque densities over the lateral soft tissues are favored to represent external artifact. Procedure Note Yenni Schwartz MD - 11/29/2022 EXAMINATION: XR ANKLE LEFT 3VW OR MORE HISTORY: S89.92XA: Leg injury, left, initial encounter COMPARISON: No prior study is available for comparison. FINDINGS: No acute fracture or dislocation is identified. The medial and lateral clear spaces are maintained. The talar dome is intact. The imagedforefoot is intact. Soft tissue edema is seen in the proximal lower leg.Curvilinear radiopaque densities over the lateral soft tissues are favored torepresent external artifact. IMPRESSION: 1.No acute fracture or dislocation identified. > Interpreting Provider: YENNI SCHWARTZ MD on 11/29/2022 3:10 PM Deacon Buckley DO DIAGNOSTIC IMAGING O RDERABLES * XR KNEE LEFT 2VW OR LESS (11/29/2022 2:46 PM OIL DIPPER) Anatomical Region Laterality Modality Lower Extremity Radiographic Haydee ging 11/29/2022 3:04 PM OIL DIPPER Impressions 11/29/2022 3:05 PM OIL DIPPER IMPRESSION: Comminuted fracture the proximal tibial metaphysis, with questionable extension into the lateral tibial plateau Comminuted fracture of the fibular neck. Extensive soft tissue edema of the knee. > Interpreting Provider: YENNI SCHWARTZ MD on 11/29/2022 3:05 PM Narrative 11/29/2022 3:05 PM OIL DIPPER PROCEDURE: XR KNEE LEFT 2VW OR LESS, DATE/TIME OF EXAM: 11/29/2022 2:46 PM, LOCATION [facility] INDICATION: S89.92XA: Leg injury, left, initial encounter ADDITIONAL CLINICAL INFORMATION: Ordering Provider Reason For Exam: Technologist Note: Additional: COMPARISON: None. FINDINGS: Partially imaged comminuted fracture of the proximal tibial metaphysis, with questionable extension into the lateral tibial plateau. There is likely intra-articular extension into the tibiofibular articulation. Mildly displaced comminuted fracture of the fibular neck. The imaged femur and patella appear intact. No joint effusion is noted. Soft tissue edema seen throughout the leg. Procedure Note Yenni Schwartz MD - 11/29/2022 PROCEDURE: XR KNEE LEFT 2VW OR LESS, DATE/TIME OF EXAM: 11/29/2022 2:46 PM, LOCATION [facility] INDICATION: S89.92XA: Leg injury, left, initial encounter ADDITIONAL CLINICAL INFORMATION: Ordering Provider Reason For Exam: Technologist Note: Additional: COMPARISON: None. FINDINGS: Partially imaged comminuted fracture of the proximal tibial metaphysis, with questionable extension into the lateral tibial plateau. There is likely intra-articular extension into the tibiofibular articulation. Mildly displaced comminuted fracture of the fibular neck. The imagedfemur and patella appear intact. No joint effusion is noted. Soft tissue edema seen throughout the leg. IMPRESSION: Comminuted fracture the proximal tibial metaphysis, with questionable extension into the lateral tibial plateau Comminuted fracture of the fibular neck. Extensive soft tissue edema of the knee. > Interpreting Provider: YENNI SCHWARTZ MD on 11/29/2022 3:05 PM Deacon Buckley DO DIAGNOSTIC IMAGING O RDERABLES * XR PELVIS 1 OR 2VW (11/29/2022 2:45 PM OIL DIPPER) Anatomical Region Laterality Modality Pelvis Radiographic Haydee ging 11/29/2022 3:02 PM OIL DIPPER Impressions 11/29/2022 3:03 PM OIL DIPPER IMPRESSION: No radiographic evidence of acute osseous abnormality of the pelvis. > Interpreting Provider: YENNI SCHWARTZ MD on 11/29/2022 3:03 PM Narrative 11/29/2022 3:03 PM OIL DIPPER PROCEDURE: XR PELVIS 1 OR 2VW, DATE/TIME OF EXAM: 11/29/2022 2:45 PM, LOCATION [facility] INDICATION: Trauma Fracture suspected ADDITIONAL CLINICAL INFORMATION: Ordering Provider Reason For Exam: Technologist Note: Additional: COMPARISON: None. FINDINGS: Partially imaged lumbosacral spinal fusion hardware and intervertebral disc spacers. No acute pelvic fracture. Pelvic phleboliths are identified. The soft tissues are otherwise normal. Procedure Note Yenni Schwartz MD - 11/29/2022 PROCEDURE: XR PELVIS 1 OR 2VW, DATE/TIME OF EXAM: 11/29/2022 2:45 PM, LOCATION [facility] INDICATION: Trauma Fracture suspected ADDITIONAL CLINICAL INFORMATION: Ordering Provider Reason For Exam: Technologist Note: Additional: COMPARISON: None. FINDINGS: Partially imaged lumbosacral spinal fusion hardware and intervertebraldisc spacers. No acute pelvic fracture. Pelvic phleboliths are identified. The soft tissues are otherwise normal. IMPRESSION: No radiographic evidence of acute osseous abnormality of the pelvis. > Interpreting Provider: YENNI SCHWARTZ MD on 11/29/2022 3:03 PM Deacon Buckley DO DIAGNOSTIC IMAGING O RDERABLES * XR CHEST 1VW PORTABLE (11/29/2022 2:44 PM OIL DIPPER) Anatomical Region Laterality Modality Chest Radiographic Haydee ging 11/29/2022 3:00 PM OIL DIPPER Narrative 11/29/2022 3:02 PM OIL DIPPER EXAMINATION: XR CHEST 1VW PORTABLE HISTORY: Trauma COMPARISON: No prior study is available for comparison. FINDINGS/IMPRESSION: Lines: *Mid thoracic spinal cord stimulator leads are noted. *Suture material is seen in the right midlung. *Surgical lukasz are seen along the right paratracheal margin and right lung apex. No confluent consolidation is noted. Mild volume loss is noted within the right lung, favoring sequela of prior resection. No pleural effusion is seen. No pneumothorax is identified. Cardiac size is normal. Aortic atherosclerosis is noted. The superior mediastinal contours are within normal limits. No acute osseous abnormality is identified. No free air is seen under the diaphragm. > Interpreting Provider: YENNI SCHWARTZ MD on 11/29/2022 3:02 PM Procedure Note Yenni Schwartz MD - 11/29/2022 EXAMINATION: XR CHEST 1VW PORTABLE HISTORY: Trauma COMPARISON: No prior study is available for comparison. FINDINGS/IMPRESSION: Lines: *Mid thoracic spinal cord stimulator leads are noted. *Suture material is seen in the right midlung. *Surgical lukasz are seen along the right paratracheal margin and right lung apex. No confluent consolidation is noted. Mild volume loss is noted withinthe right lung, favoring sequela of prior resection. No pleural effusion is seen. No pneumothorax is identified. Cardiac size is normal. Aortic atherosclerosis is noted. The superior mediastinal contours are within normal limits. No acute osseous abnormality is identified. No free airis seen under the diaphragm. > Interpreting Provider: YENNI SCHWARTZ MD on 11/29/2022 3:02 PM Deacon Buckley DO DIAGNOSTIC IMAGING O RDERABLES Care Teams Landscape Designer Relationship Specialty Start Date End Date Vickey Hernandez MD [address] [place] [id number] PCP - General 08/04/19
--- OUTSIDE RECORDS SUMMARY | 2024-11-13 19:26 | XMS_ITS | Clinical Summary ---
Author Organization [facility] Address [address] [place] [address] Care Team Providers Care Manager Fund Name Role Phone Vickey Hernandez MD Primary Care Provider [phone] Felipe Brand MD Unavailable [phone] Allergies Active Allergy Reactions Criticality Noted Date Comments Penicillins Unknown 04/07/2023 Medications lidocaine (LIDODERM) 5 % Place 1 patch on the skin daily Remove & discard patch within 12 hours or as directed by MD. Active multivitamin tabletIndication s:Vitamin Deficiency Prevention Take 1 tablet by mouth daily Active omeprazole 20 mg tablet,delayed release (DR/EC) Take 1 tablet (20 mg total) by mouth 2 (two) times a day Active pregabalin (LYRICA) 150 mg capsule Take 1 capsule (150 mg total) by mouth 2 (two) times a day Active cholecalciferol (VITAMIN D-3) 2000 unit tablet Take 2 tablets (4,000 Units total) by mouth daily Active ferrous sulfate 325 mg (65 mg of elemental iron) tabletIndication s:Iron Deficiency Anemia Take 1 tablet (325 mg total) by mouth daily with breakfast Active fluticasone-umec lidin-vilanter (Trelegy Ellipta) 100-62.5-25 mcg inhaler Inhale 1 puff daily Active TiZANidine (ZANAFLEX) 4 mg capsule Take 1 capsule (4 mg total) by mouth 3 (three) times a day as needed for muscle spasms Active albuterol HFA (PROVENTIL HFA,VENTOLIN HFA,PROAIR HFA) 90 mcg/actuation inhaler Inhale 2 puffs every 4 (four) hours as needed for wheezing Active buPROPion XL (WELLBUTRIN XL) 300 mg 24 hr tablet Take 1 tablet (300 mg total) by mouth daily Active PARoxetine (PAXIL) 40 mg tablet Take 1 tablet (40 mg total) by mouth every morning Active hyoscyamine (Levsin) 0.125 mg tabletIndication s:Urinary Incontinence Take 1 tablet (0.125 mg total) by mouth every 6 (six) hours as needed (gas pain) for up to 4 days 16 tablet 3 Active calcium citrate-vitamin D3 250 mg-5 mcg (200 unit) tablet Take 2 tablets by mouth 3 (three) times a day 90 tablet 3 Active cyanocobalamin (Vitamin B-12) 500 mcg tabletIndication s:Prevention of Vitamin B12 Deficiency Take 1 tablet (500 mcg total) by mouth daily 30 tablet 3 Active oxyCODONE (ROXICODONE) solution 5 mg/5 mL Take 10 milliliters every FOUR hours FOR 30 day(s) 4 Active varenicline tartrate (CHANTIX RAIZA) 0.5 mg (11)- 1 mg (42) tablet as directed as directed 4 Active calcium carbonate (TUMS) 500 mg (200 mg elemental calcium) chewable tablet Take 1 tablet/chew tab (500 mg total) by mouth daily Active Active Problems Problem Noted Date Diagnosed Date Perforated ulcer 01/03/2024 Bowel perforation 04/07/2023 Surgical History Surgery Date Site/Laterality Comments GASTRIC BYPASS OPEN LUNG REMOVAL, PARTIAL BACK SURGERY EXPLORATORY LAPAROTOMY ORIF TIBIA & FIBULA FRACTURES leg crushed REVISION AMPUTATION OF FINGER Left Medical History Medical History Date Comments Lung cancer (HCC) COPD (chronic obstructive pulmonary disease) (HC C) GERD (gastroesophageal reflux disease) Asthma Stroke (HCC) Family History Medical History Relation Name Comments Lung cancer Mother's Sister Melanoma Sister Relation Name Status Comments Mother's Sister Sister Social History Tobacco Use Types Packs/Day Years Used Date Smoking Tobacco: Former Cigarettes 0.3 2.5 0 02/2022 - 02/2023 Smokeless Tobacco: Never Tobacco Cessation:Counseling Given: Not Answered Comments:40yr past smoker, restarted a year ago from today AUDIT-C Answer Date Recorded Q1: How often do you have a drink containing alc ohol? Never 01/24/2024 Average Number of Drinks Not on file 024 Frequency of Binge Drinking Not on file 01/03 Personal Safety Answer Date Recorded Have you ever been in or are you currently in a harmful physical or emotional relationship or is someone making you feel afraid or unsafe? Denies 01/24/2024 Sex and Gender Information Value Date Recorded Sex Assigned at Not on file Legal Sex Male 12:27 AM [employer] MA[employer] Gender Identity Not on file Sexual Orientation Not on file Obstetrics History Last Filed Vital Signs Vital Sign Reading Time Taken Comments Blood Pressure 123/73 01/24/2024 11:20 AM CDT Pulse 64 01/24/2024 11:20 AM CDT Temperature 36 C (96.8 F) 01/24/2024 10:38 AM CDT Respiratory Rate 16 01/24/2024 11:20 AM CDT Oxygen Saturation 100% 01/24/2024 11:20 AM CDT Inhaled Oxygen Concentration - - Weight 71.2 kg (157 lb) 01/24/2024 10:03 AM CDT Height 175.3 cm (5' 9 ) 01/24/2024 10:03 AM CDT Body Mass Index 23.18 01/24/2024 10:03 AM CDT Plan of Treatment Health Maintenance Due Date Last Done Comments Colon Cancer Screening-Colonoscopy 1959 Depression Screening 1960 Hepatitis C Screening 1959 Prostate Cancer Screening-PSA 1959 Hepatitis B Screening 1977 Zoster Vaccine (2 of 3) 02/23/2017 12/29/2016 Abdominal Aortic Aneurysm (AAA) Screen 2024 Pneumococcal vaccine 65+ (1 of 1 - PCV) 2024 Well Visit 65+ 2024 Influenza Vaccine (#1) 2024 12/29/2016 Fall Risk Assessment 01/23/2025 01/24/2024 DTaP/Tdap/Td Vaccine (2 - Td or Tdap) 11/29/2032 Insurance [facility] MEDICARE [facility] MEDICARE [employer] [place] Advance Directives For more information, please contact: [phone] * Full Code (Latest Code Status on File) Date Activated Date Inactivated Comments 01/24/2024 10:07 AM 01/24/2024 4:16 PM * LIMITED - No CPR Date Activated Date Inactivated Comments 04/18/2023 2:18 PM 05/02/2023 7:37 PM Question Answer Comments Provide aggressive medical m anagement before a full cardiopulmonary arrest occurs. Use antibiotics, IV Fluids, and medical treatment unless specifically selected below: No intubation * Full Code Date Activated Date Inactivated Comments 04/07/2023 10:52 PM 04/18/2023 2:18 PM Care Teams Manager Fund Relationship Specialty Start Date End Date Vickey Hernandez MD [address] [place] [address] PCP - General 03/20/14 Felipe Brand MD [address] [facility] [id number] [place] [address] Referring Physician General Surgery 05/02/23
--- OUTSIDE RECORDS SUMMARY | 2024-11-13 19:26 | XMS_ITS | Patient Health Record ---
Author Organization [facility] Address [address] [place] [address] Care Team Providers Care Long Term Name Role Phone Tran Roberts Unavailable [phone] Chantel Black Unavailable [phone] Armando Joss Unavailable [phone] Allergies Allergen (clinical drug ingredient) Drug/Non Drug Allergy documented on EMR Reaction Allergy Type Onset Date Status Penicillin hives Drug Allergy Active Reason For Referral No Information Medications Medication SIG (Take, Route, Frequency, Duration) Notes Start Date End Date Status buPROPion HCl ER (XL) 300 MG TAKE 1 TABLET BY MOUTH EVERY DAY IN THE MORNING Oral for 90 Days Unknown Doxycycline Hyclate 100 MG Oral for 30 Days Active LORazepam 0.5 MG TAKE ONE TABLET BY MOUTH TWICE DAILY NEEDED FOR ANXIETY Oral for 30 Days Unknown Trelegy Ellipta 100-62.5-25 MCG/ACT Inhalation for 30 Days Unknown tiZANidine HCl 4 mg Take 1 tablet three times a day for 90 days Active Midodrine HCl 2.5 MG 2.5 mg orally twice a day; do not give last dose of day after 6PM or within 4 hrs of bedtime Oral for 30 Days Active Cyanocobalamin 1000 MCG/ML Injection for 84 Days Unknown oxyCODONE HCl 5 MG/5ML 10 milliliters Or al every 4 hours for 30 days 11/09/2024 Active Hydrocortisone 2.5 % External for 30 Days Active Varenicline Tartrate (Starter) 0.5 MG X 11 & 1 MG X 42 USE DIRECTED Oral for 28 Days Unknown Cyanocobalamin 1000 MCG/ML INJECT 1ML INTO MUSCLE ONCE MONTHLY Injection for 84 Days Unknown Butrans 10 MCG/HR 1 patch to skin Transdermal ONCE A WEEK for 28 days NEEDS PA PLEASE 09/12/2024 Active traZODone HCl 50 MG TAKE 1 - 2 TABLETS BY MOUTH AT BEDTIME FOR SLEEP Oral for 90 Days Unknown Nystatin 091360 UNIT/ML TAKE 5 ML (500,0 00 UNITS TOTAL) BY MOUTH 4 (FOUR) TIMES A DAY FOR 14 DAYS SWISH & SWALLOW Mouth/Throat for 14 Days Unknown Pregabalin 150 mg 1 capsule orally twice a day for 30 days 11/09/2024 Active Lidocaine 5 % Take 2 transdermal patches Once a day for 30 days Active PARoxetine HCl 40 MG Oral for 90 Days Unknown Albuterol Sulfate HFA 108 (90 Base) MCG/ACT Inhalation for 16 Days Unknown Varenicline Tartrate (Starter) 0.5 MG X 11 & 1 MG X 42 TAKE DIRECTED ON PACKAGE. Oral for 30 Days Unknown Cyanocobalamin 1000 MCG/ML INJECT 1ML INTO MUSCLE ONCE MONTHLY Injection for 90 Days Unknown Atorvastatin Calcium 10 MG TAKE ONE TABLET BY MOUTH EVERY DAY Oral for 30 Days Unknown Problems Problem Type SNOMED Code ICD Code Onset Dates Problem Status W/U Status Risk Notes Problem Amnesia (97179992) Other amnesia (R41.3) Active confirmed Problem High risk drug monitoring status (672755669) penitentiary (current) use of opiate analgesic (Z79.891) Active confirmed Problem History of bariatric surgical procedure (243868749) Bariatric surgery status (Z98.84) Active confirmed Problem Lumbar spondylosis (623474869) Lumbar spondylosis (M47.816) Active confirmed Problem Leg length discrepancy (517105057) Leg length discrepancy (M21.70) Active confirmed Problem Hypercholesterolemia (64401136) Hypercholesterolemia (E78.00) Active confirmed Problem Lumbar radiculopathy (837927409) Lumbar radiculopathy (M54.16) Active confirmed Problem Lumbar post-laminectomy syndrome (011730517) Lumbar postlaminectomy syndrome (M96.1) Active confirmed Problem Sacroiliitis (23183165) Sacroiliitis (M46.1) Active confirmed Problem Neck pain (09680126) Cervical sp ine pain (M54.2) Active confirmed Problem Low back pain (473026147) Low back pain (M54.50) Active confirmed Problem Postherpetic neuralgia (7488282) Postherpetic neuralgia (B02.29) Active confirmed Problem COPD - Chronic obstructive pulmonary disease (97170870) COPD (chronic obstructive pulmonary disease) (J44.9) Active confirmed Vital Signs Heart Rate 82 /min 11/09/2024 Respiratory Rate 16 /min 10/12/2024 Height-cm 175.26 cm 11/09/2024 Blood pressure diastolic 88 mm Hg 11/09/2024 Weight-kg 74.39 kg 11/09/2024 Height 5ft 9in in 11/09/2024 Blood pressure systolic 131 mm Hg 11/09/2024 Weight 164 lbs 11/09/2024 BMI 24.22 kg/m2 11/09/2024 Encounters Encounter Location Date Provider Diagnosis [facility] [address] [place] [address] [address] [place] [address] 11/23/2023 Tran Roberts [facility] [address] [place] [address] [address] [place] [address] 12/23/2023 Tran Roberts [facility] [address] [place] [address] [address] [place] [address] 01/20/2024 Tran Roberts [facility] [address] [place] [address] [address] [place] [address] 02/24/2024 Tran Roberts [facility] [address] [place] [address] [address] [place] [address] 03/23/2024 Chantel Black [facility] [address] [place] [address] [address] [place] [address] 04/24/2024 Chantel Black [facility] [address] [place] [address] [address] [place] [address] 11/09/2024 Joss Roberts Other amnesia R41.3 ; Postherpetic neuralgia B02.29 ; Low back pain M54.50 ; Bariatric surgery status Z98.84 ; penitentiary (current) use of opiate analgesic Z79.891 ; Lumbar spondylosis M47.816 ; Leg length discrepancy M21.70 ; Lumbar radiculopathy M54.16 ; Lumbar postlaminectomy syndrome M96.1 ; Sacroiliitis M46.1 ; Cervical spine pain M54.2 ; COPD (chronic obstructive pulmonary disease) J44.9 ; Hypercholesterolemia E78.00 ; Lumbar spine pain M54.50 ; S/P bariatric surgery Z98.84 ; Lung cancer C34.90 and History of TIA (transient ischemic attack) Z86.73 [facility] [address] [place] [address] [address] [place] [address] 05/22/2024 Chantel Black Postherpetic neuralgia B02.29 ; Low back pain M54.50 ; Other amnesia R41.3 ; Bariatric surgery status Z98.84 and penitentiary use of drug Z79.899 [facility] [address] [place] [address] [address] [place] [address] 06/19/2024 Chantel Black Low back pain M54.50 ; Other amnesia R41.3 ; Postherpetic neuralgia B02.29 and penitentiary (current) use of opiate analgesic Z79.891 [facility] [address] [place] [address] [address] [place] [address] 07/17/2024 Chantel Black Low back pain M54.50 ; Other amnesia R41.3 ; Postherpetic neuralgia B02.29 and penitentiary use of drug Z79.899 [facility] [address] [place] [address] [address] [place] [address] 08/14/2024 Chantel Black Other amnesia R41.3 ; Low back pain M54.50 ; Postherpetic neuralgia B02.29 ; Bariatric surgery status Z98.84 and 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 Z79.891 [facility] [address] [place] [address] [address] [place] [address] 09/12/2024 Joss Roberts Other amnesia R41.3 ; Postherpetic neuralgia B02.29 ; Low back pain M54.50 ; Bariatric surgery status Z98.84 ; penitentiary (current) use of opiate analgesic Z79.891 ; Lumbar spondylosis M47.816 ; Leg length discrepancy M21.70 ; Left leg pain M79.605 ; Lumbar radiculopathy M54.16 ; S/P bariatric surgery Z98.84 ; Fracture of tibia or fibula following insertion of orthopedic implant, joint prosthesis, or bone plate, left leg M96.672 ; Lumbar spine pain M54.50 ; Memory loss or impairment R41.3 ; Memory loss R41.3 ; TIA (transient ischemic attack) G45.9 ; History of TIA (transient ischemic attack) Z86.73 ; Pelvic obliquity M95.5 ; Lumbar postlaminectomy syndrome M96.1 ; Sacroiliitis M46.1 ; Gait abnormality R26.9 ; Hx of cancer of lung Z85.118 ; Smoking history Z87.891 ; Lumbar compression fracture S32.000A and Thoracic compression fracture S22.000A [facility] [address] [place] [address] [address] [place] [address] 10/12/2024 Joss Armando Low back pain M54.50 ; Lumbar spondylosis M47.816 ; Leg length discrepancy M21.70 ; Lumbar radiculopathy M54.16 ; Lumbar postlaminectomy syndrome M96.1 ; Sacroiliitis M46.1 ; Lumbar spine pain M54.50 ; Cervical spine pain M54.2 ; COPD (chronic obstructive pulmonary disease) J44.9 ; Postherpetic neuralgia B02.29 ; Hypercholesterolemia E78.00 ; History of gastric bypass Z98.84 ; Lung cancer C34.90 ; Bariatric surgery status Z98.84 ; Other amnesia R41.3 and TIA (transient ischemic attack) G45.9 [facility] [place] [facility] [address] [place] [address] [address] [place] [address] 10/12/2024 Joss Armando Low back pain M54.50 and Lumbar radiculopathy M54.16 [facility] [address] [place] [address] [address] [place] [address] 05/22/2024 Tran Roberts [facility] [address] [place] [address] [address] [place] [address] 06/19/2024 Tran Roberts [facility] [address] [place] [address] [address] [place] [address] 07/17/2024 Tran Roberts [facility] [address] [place] [address] [address] [place] [address] 08/14/2024 Tran Roberts [facility] [address] [place] [address] 09/12/2024 Joss Roberts [facility] [address] [place] [address] 10/12/2024 Joss Roberts [facility] [address] [place] [address] 11/09/2024 Joss Roberts Assessments Encounter Date Diagnosis (ICD Code) Assessment Notes Treatment Notes Treatment Clinical Notes Section Notes 05/22/2024 Low back pain (ICD-1 0 - M54.50) 05/22/2024 Postherpetic neuralg ia (ICD-10 - B02.29) Refill for controlled substance sent to supervising physician to be filledContinue home stretching and at home exercise program as toleratedFollow-u p in one month for med check, sooner if needed 06/19/2024 Other amnesia (ICD-1 0 - R41.3) 06/19/2024 Low back pain (ICD-1 0 - M54.50) Refill for controlled substance sent to supervising physician to be filled Patient needs to follow up with neurology ASAPContinue home stretching and at home exercise program as toleratedFollow-u p in one month for med check, sooner if needed 07/17/2024 Other amnesia (ICD-1 0 - R41.3) 07/17/2024 Low back pain (ICD-1 0 - M54.50) Refill for controlled substance sent to supervising physician to be filled Continue home stretching and at home exercise program as tolerated Follow-up in one month for med check, sooner if needed 08/14/2024 Other amnesia (ICD-1 0 - R41.3) 08/14/2024 Low back pain (ICD-1 0 - M54.50) Refill for controlled substance sent to supervising physician to be filled. Patient to see Dr. Coreas next month to discuss meds Continue home stretching and at home exercise program as tolerated Follow-up in one month for med check, sooner if needed 09/12/2024 Other amnesia (ICD-1 0 - R41.3) 10/12/2024 Lumbar spondylosis (ICD-10 - M47.816) 10/12/2024 Low back pain (ICD-1 0 - M54.50) 10/12/2024 Lumbar radiculopathy (ICD-10 - M54.16) 10/12/2024 Low back pain (ICD-1 0 - M54.50) 11/09/2024 Other amnesia (ICD-1 0 - R41.3) 10/12/2024 Leg length discrepan cy (ICD-10 - M21.70) 09/12/2024 Postherpetic neuralg ia (ICD-10 - B02.29) 08/14/2024 Postherpetic neuralg ia (ICD-10 - B02.29) 07/17/2024 Postherpetic neuralg ia (ICD-10 - B02.29) 06/19/2024 Postherpetic neuralg ia (ICD-10 - B02.29) 05/22/2024 Other amnesia (ICD-1 0 - R41.3) Patient to follow-up with Dr. 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 (ICD-10 - Z79.899) 08/14/2024 Bariatric surgery status (ICD-10 - Z98.84) 09/12/2024 Low back pain (ICD-1 0 - M54.50) 10/12/2024 Lumbar radiculopathy (ICD-10 - M54.16) 10/12/2024 Lumbar postlaminecto my syndrome (ICD-10 - M96.1) 11/09/2024 Bariatric surgery status (ICD-10 - Z98.84) 09/12/2024 Bariatric surgery status (ICD-10 - Z98.84) 08/14/2024 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 (ICD-10 - Z79.891) 05/22/2024 termite exterminator use of erendira g (ICD-10 - Z79.899) 09/12/2024 penitentiary (current) use of opiate analgesic (ICD-10 - Z79.891) 11/09/2024 penitentiary (current) use of opiate analgesic (ICD-10 - Z79.891) 10/12/2024 Sacroiliitis (ICD-10 - M46.1) 10/12/2024 Lumbar spine pain (ICD-10 - M54.50) 11/09/2024 Lumbar spondylosis (ICD-10 - M47.816) 09/12/2024 Lumbar spondylosis (ICD-10 - M47.816) 09/12/2024 Leg length discrepan cy (ICD-10 - M21.70) 11/09/2024 Leg length discrepan cy (ICD-10 - M21.70) 10/12/2024 Cervical spine pain (ICD-10 - M54.2) 11/09/2024 Lumbar radiculopathy (ICD-10 - M54.16) 10/12/2024 COPD (chronic obstructive pulmonary disease) (ICD-10 - J44.9) 09/12/2024 Left leg pain (ICD-1 0 - M79.605) 09/12/2024 Lumbar radiculopathy (ICD-10 - M54.16) 11/09/2024 Lumbar postlaminecto my syndrome (ICD-10 - M96.1) 10/12/2024 Postherpetic neuralg ia (ICD-10 - B02.29) 10/12/2024 Hypercholesterolemia (ICD-10 - E78.00) 09/12/2024 S/P bariatric surger y (ICD-10 - Z98.84) 11/09/2024 Sacroiliitis (ICD-10 - M46.1) 10/12/2024 History of gastric bypass (ICD-10 - Z98.84) 09/12/2024 Fracture of tibia or fibula following insertion of orthopedic implant, joint prosthesis, or bone plate, left leg (ICD-10 - M96.672) 11/09/2024 Cervical spine pain (ICD-10 - M54.2) 11/09/2024 COPD (chronic obstructive pulmonary disease) (ICD-10 - J44.9) 09/12/2024 Lumbar spine pain (ICD-10 - M54.50) 10/12/2024 Lung cancer (ICD-10 - C34.90) 10/12/2024 Bariatric surgery status (ICD-10 - Z98.84) 11/09/2024 Hypercholesterolemia (ICD-10 - E78.00) 09/12/2024 Memory loss or impairment (ICD-10 - R41.3) 09/12/2024 Memory loss (ICD-10 - R41.3) 10/12/2024 Other amnesia (ICD-1 0 - R41.3) 11/09/2024 Lumbar spine pain (ICD-10 - M54.50) 10/12/2024 TIA (transient ische antoine attack) (ICD-10 - G45.9) 09/12/2024 TIA (transient ische antoine attack) (ICD-10 - G45.9) 11/09/2024 S/P bariatric surger y (ICD-10 - Z98.84) 11/09/2024 Lung cancer (ICD-10 - C34.90) 09/12/2024 History of TIA (transient ischemic attack) (ICD-10 - Z86.73) 09/12/2024 Pelvic obliquity (ICD-10 - M95.5) 11/09/2024 History of TIA (transient ischemic attack) (ICD-10 - Z86.73) 09/12/2024 Lumbar postlaminecto my syndrome (ICD-10 - M96.1) 09/12/2024 Sacroiliitis (ICD-10 - M46.1) 09/12/2024 Gait abnormality (ICD-10 - R26.9) 09/12/2024 Hx of cancer of lung (ICD-10 - Z85.118) 09/12/2024 Smoking history (ICD -10 - Z87.891) ICD F32.A-Depress ion: 09/12/2024 Lumbar compression fracture (ICD-10 - S32.000A) 09/12/2024 Thoracic compression fracture (ICD-10 - S22.000A) 11/09/2024 Other High Blood Pressure: Care Instructions material was published Plan of care is for patient to undergo bilateral sacral joint injections when scheduled. Patient was refilled his medication risk benefits and alternatives were discussed. No change in efficacy or side effects no aberrant drug behavior patterns activities of daily living are tolerated with use of medication. Adjustments were made to patient's brace and patient will be told to use it for as long as he wants to when he standing and sitting. Patient was told not to sleep in it. He was told once again about the potential for atrophy. Full instructions were given including care of the brace. 09/12/2024 Other Body Mass Index: Care Instructions material was published, High Blood Pressure: Care Instructions material was published, Learning About How to Have a Healthy Back material was published 4 view lumbar x-rays were taken and weightbearing. This shows patient to have a pelvic obliquity. There are advanced degenerative changes left greater than right of the hip joints. There is an elevation of the left PSIS. There is bilateral pedicle screws spanning L3-4 L4-5 L5-S1 with no bridging device. These are connected by rods. Patient has on lateral view anterior cages placed at all 3 levels. There appears to be some disc base collapse posteriorly at the L4-5 level. There seems to be a good opening with good fusion bone seen at L3-4 and to a lesser degree at L5-S1. There is some atherosclerosis of the abdominal aorta anterior to the L4-5 interspace. There are advanced degenerative changes at L2-3 with a retrolisthesis of L2 over L3 into the foramen. Patient has anterior longitudinal calcifications has Modic changes anteriorly greater than left has kissing vertebrae L2-3 L1-L2. There is degenerative disc base height loss at L2-3 and L1-L2 and T12-L1. Lumbar lordosis is maintained. Patient's forward flexion is without surprising TL junction. There appears to be a compression at T12 and some wedging at L1 as well. Patient extends with no significant movement of the listhesis at L2-3. Left lower leg x-rays were taken 2 view showing christiana screws in the tibia going through to the fibula superiorly and inferiorly. Patient has some degenerative change in the lateral compartment of the left knee greater than medial compartment. Subpatellar space appears intact. Patient's right leg is short 2 mm. No tumor metastases or fractures are seen. Patient needs a CT scan with reconstructive views of the lumbar spine. We have to evaluate the L4-5 level as well as the L2-3 level. Patient is currently using oxycodone 5 mg per 5 mL solution using total of of 10 mL every 4 hours. This is the equivalent of 10 mg 6 times a day. Patient uses a Lidoderm patch. He uses 2 patches 12 hours on 12 hours off. Patient is using Lyrica 150 mg twice a day. Patient is on tizanidine 4 mg 3 times daily. Patient has a past medical history which is positive for depression TIA in the past postherpetic neuralgia and lung cancer. Patient had a previous smoking history. Patient has had previous bariatric surgery. He has memory loss. 10/12/2024 Other Body Mass Index: Care Instructions material was published, High Blood Pressure: Care Instructions material was published Patient was shown a variety of different braces including a low-profile lumbar brace, LSO brace and finally a TLSO. Patient liked the TLSO the most. Patient was able to be brought upright. Patient was shown and had performed for him proper fitting including adjustments of the straps the Velcro the singes. After custom fit patient walked around and stayed in the erect position and then sitting position for 45 minutes to an hour. Patient was instructed not to put the wash machine to the dryer. Patient was told to use lukewarm water mild soap solution sponge to be able to clean it if necessary. He was told to wear shirt underneath the brace so as not to shave the skin. Patient was told not to sleep in the brace. Patient was told about the potential for atrophy and muscle cocontraction spasm. Patient felt he was able to stand upright without the pain that he had when he actively went into extension. Patient had problems with the low-profile brace because it was irritating to his postherpetic neuralgia primarily on the left flank. The LSO was less aggravating but patient could not become erect in it because he did not have any counter torque. The TLSO answer that. Patient was given instructions to wear 20 minutes at a time and weightbearing at a minimum. Patient was told to work his way up using the brace. He was shown fit. Patient was told to bring it back in 3 to 4 weeks and we will readjust if necessary bid based upon patient's progress. Patient's medication was also refilled today. Risk-benefit alternatives were discussed. Patient does not need a refill of his Lyrica as of today. Patient will have the Lyrica placed into the queue for when it is due. Patient took positive delivery today of TLSO brace, Horizon 456 code 0456. Full instructions were given to patient as well as risk benefits and alternatives of the use of the brace. Patient's is present. Plan Of Treatment Pending Test Test Name Order Date CT Lumbar WO 09/12/2024 Leg Length 09/12/2024 X ray : Spines, lumbar 4 views 4 Next Appt Details Provider Name:Tran Abdullahi kera, 12/07/2024 09:45:00 AM, [id number] [place] [address], [address], [place], [address], Insurance Providers Payer Name Payer Address Payer Phone Subscriber Number Group Number Insured Name Patient Relationship to Insured Coverage Start Date Coverage End Date [employer] [place] [address] [address] [place] [address] [id number] [id number] Kiran Smith Self - patient is the insured [facility] [address] [place] [address] [id number] PLAN G Kiran Smith Self - patient is the insured Medical (General) History Medical History History ICD Code Lung cancer Depression TIA Post herpetic neuralgia Surgical History Surgery Date(Month/Year) Gastric bypass ORIF left leg right middle lobectomy Hospitalization History Reason Date(Month/Year) no hospitalization since prior visit
--- OUTSIDE RECORDS SUMMARY | 2024-11-13 19:26 | XMS_ITS | Referral Summary ---
Author Organization [facility] Address [address] [place] [address] Care Team Providers Care Sample Builder Name Role Phone Vickey Hernandez MD Primary Care Provider [phone] Felipe Brand MD Unavailable [phone] Allergies Active Allergy Reactions Criticality Noted [...] mcg total) by mouth daily 30 tablet 11 3 Active oxyCODONE (ROXICODONE) solution 5 mg/5 mL Take 10 milliliters every FOUR hours FOR 30 day(s) 4 Active varenicline tartrate (CHANTIX ARIZA) 0.5 mg (11)- 1 mg (42) tablet as directed as directed 4 Active calcium carbonate (TUMS) 500 mg (200 mg elemental calcium) chewable tablet Take 1 tablet/chew tab (500 mg total) by mouth daily Active Active Problems Problem Noted Date Diagnosed Date Perforated ulcer 01/03/2024 Bowel perforation 04/07/2023 Social History Tobacco Use Types Packs/Day Years [...] on file 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 Gender Identity Not on file Sexual Orientation [...] 01/24/2024 10:03 AM CDT Plan of Treatment Not on file Insurance [facility] MEDICARE [facility] MEDICARE [facility] Address: [address] [address] [place] [address] [facility] Advance Directives For more information, please contact: [phone] * Full Code (Latest Code Status on [...] 10:52 PM 04/18/2023 2:18 PM Care Teams Sample Builder Relationship Specialty Start Date End Date Vickey Hernandez MD [address] [facility] [address] [facility] [place] [id number] PCP - General 03/20/14 Felipe Brand MD [id number] [place] [address] Referring Physician General Surgery 05/02/23
--- OUTSIDE RECORDS SUMMARY | 2024-11-13 19:26 | XMS_ITS ---
Author Organization [facility] Address [address] [place] [address] Care Team Providers Care Manager Pharmaceutical Name Role Phone Joss Roberts Unavailable [phone] Allergies Allergen (clinical drug ingredient) Drug/Non Drug Allergy documented on EMR Reaction Allergy Type Onset Date Status Penicillin hives Drug Allergy Active REASON FOR VISIT meds, Patient chief complaint is low back pain. Medications Medication SIG (Take, Route, Frequency, Duration) Notes Start Date End Date Status buPROPion HCl ER (XL) 300 MG TAKE 1 TABLET BY MOUTH EVERY DAY IN THE MORNING Oral for 90 Days Unknown Doxycycline Hyclate 100 MG Oral for 30 Days Active Midodrine HCl 2.5 MG 2.5 mg orally twice a day; do not give last dose of day after 6PM or within 4 hrs of bedtime Oral for 30 Days Active Hydrocortisone 2.5 % External for 30 Days Active Butrans 10 MCG/HR 1 patch to skin Transdermal ONCE A WEEK for 28 days NEEDS PA PLEASE 09/12/2024 Active Cyanocobalamin 1000 MCG/ML INJECT 1ML INTO MUSCLE ONCE MONTHLY Injection for 84 Days Unknown Nystatin 487734 UNIT/ML TAKE 5 ML (500,0 00 UNITS TOTAL) BY MOUTH 4 (FOUR) TIMES A DAY FOR 14 DAYS SWISH & SWALLOW Mouth/Throat for 14 Days Unknown PARoxetine HCl 40 MG Oral for 90 Days Unknown Varenicline Tartrate (Starter) 0.5 MG X 11 & 1 MG X 42 TAKE DIRECTED ON PACKAGE. Oral for 30 Days Unknown Cyanocobalamin 1000 MCG/ML INJECT 1ML INTO MUSCLE ONCE MONTHLY Injection for 90 Days Unknown LORazepam 0.5 MG TAKE ONE TABLET BY MOUTH TWICE DAILY NEEDED FOR ANXIETY Oral for 30 Days Unknown Trelegy Ellipta 100-62.5-25 MCG/ACT Inhalation for 30 Days Unknown Cyanocobalamin 1000 MCG/ML Injection for 84 Days Unknown Varenicline Tartrate (Starter) 0.5 MG X 11 & 1 MG X 42 USE DIRECTED Oral for 28 Days Unknown traZODone HCl 50 MG TAKE 1 - 2 TABLETS BY MOUTH AT BEDTIME FOR SLEEP Oral for 90 Days Unknown tiZANidine HCl 4 mg Take 1 tablet three times a day for 90 days Active Lidocaine 5 % Take 2 transdermal patches Once a day for 30 days Active Albuterol Sulfate HFA 108 (90 Base) MCG/ACT Inhalation for 16 Days Unknown oxyCODONE HCl 5 MG/5ML 10 milliliters Or al every 4 hours for 30 days 10/12/2024 Active Atorvastatin Calcium 10 MG TAKE ONE TABLET BY MOUTH EVERY DAY Oral for 30 Days Unknown Pregabalin 150 mg Take 1 capsule twice a day for 30 day(s) for 30 10/02/2024 Active Vital Signs Blood pressure systolic 131 mm Hg 11/09/19 25 Blood pressure diastolic 88 mm Hg 025 Heart Rate 82 /min 11/09/2024 Height 5ft 9in in 11/09/2024 Weight 164 lbs 11/09/2024 BMI 24.22 kg/m2 11/09/2024 Height-cm 175.26 cm 11/09/2024 Weight-kg 74.39 kg 11/09/2024 Encounters Encounter Location Date Provider Diagnosis [facility] [address] [place] [address] 11/09/2024 Joss Roberts Other amnesia R41.3 ; Postherpetic neuralgia B02.29 ; Low back pain M54.50 ; Bariatric surgery status Z98.84 ; correction (current) use of opiate analgesic Z79.891 ; [...] History of TIA (transient ischemic attack) Z86.73 Assessments Encounter Date Diagnosis (ICD Code) Assessment Notes Treatment Notes Treatment Clinical Notes Section Notes 11/09/2024 Other amnesia (ICD-1 0 - R41.3) 11/09/2024 Postherpetic neuralg ia (ICD-10 - B02.29) 11/09/2024 Low back pain (ICD-1 0 - M54.50) 11/09/2024 Bariatric surgery status (ICD-10 - Z98.84) 11/09/2024 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 of opiate analgesic (ICD-10 - Z79.891) 11/09/2024 Lumbar spondylosis (ICD-10 - M47.816) 11/09/2024 Leg length discrepan cy (ICD-10 - M21.70) 11/09/2024 Lumbar radiculopathy (ICD-10 - M54.16) 11/09/2024 Lumbar postlaminecto my syndrome (ICD-10 - M96.1) 11/09/2024 Sacroiliitis (ICD-10 - M46.1) 11/09/2024 Cervical spine pain (ICD-10 - M54.2) 11/09/2024 COPD (chronic obstructive pulmonary disease) (ICD-10 - J44.9) 11/09/2024 Hypercholesterolemia (ICD-10 - E78.00) 11/09/2024 Lumbar spine pain (ICD-10 - M54.50) 11/09/2024 S/P bariatric surger y (ICD-10 - Z98.84) 11/09/2024 Lung cancer (ICD-10 - C34.90) 11/09/2024 History of TIA (transient ischemic attack) (ICD-10 - Z86.73) 11/09/2024 Other High Blood Pressure: Care Instructions [...] were given including care of the brace. Plan Of Treatment Treatment Notes Assessment Notes Other High Blood Pressure: Care Instructions material [...] were given including care of the brace. Next Appt Details Follow Up: Patient will foll ow-up for bilateral sacroiliac joint injections. Patient will follow-up for medication management in 1 month., [place] , [id number], Reason: Provider Name:Tran cote, 12/07/2024 09:45:00 AM, [address] [place] [address], [facility] [address], [place], [address], Progress Notes * Manuel SMITHeDOB:1960 (64 yo M)Acc No.[id number]:11/09/2024 Progress Notes Patient: Kiran VILLAFANA Provider: Charly Roberts MD :1960 A ge:64 Y S ex:Male Date:11/09/2024 Address:[address] [place], [place] [id number] Subjective: * Chief Complaints: * 1 . Meds. 2. Patient chief complaint is low back pain.. * HPI: * Established Patient: Established Patient Questionnaire: 1 . Are you currently taking a Blood Thinner Medication? N o 2 . Do you have an allergy to I.V. Contrast or Shellfish? N o 3 . List any changes to medical history. (eg; Falls, Test, Scans, Blood Work, and Hospitalizations) N one 4 . Have you been exposed to anyone with COVID in the last 2 weeks? N o 5 . Have you been exposed to anyone with the FLU in the last 72 hours? N o 6 . What is your Pain Level today? (1-10, Scroll and select one) 6 7 . Where is your pain located? L ow Back,Left Leg,Right Leg 8 . After your last visit, what Percentage of improvement did you experience? 3 0 9 . Are you doing Physical Therapy, Chiropractic, or Massage Therapy? N o 1 0. Are you doing an at home Exercise Program? Y es 1 1. What activities or positions increase your Pain? (Scroll to select one or multiple) S itting,Standing,Walking,Chores,Exercise 1 2. What activities or positions decrease your Pain? (Scroll to select one or multiple) L susu down 1 3. How would you describe your Pain? (Scroll to select one or multiple) S tabbing,Aching,Throbbing,Burning 1 4. Are you having difficulty sleeping? Y es 1 5. When was the last time you had your blood drawn? (Please enter your best estimate) 2 024 1 6. When was your last Mammogram? (Please put N/A if you are male, for Females please put the best Estimate or Never. ) N A 1 7. When was your last Colonoscopy? (Please put the best Estimate or Never. ) 1 8. Do you need any refills on your medications today? Y es 1 9. Please list ALL changes to Medications or Allergies? N one 2 0. Are you Diabetic? N o 2 1. Do you suffer from Constipation? N o * Pain Management:: Patient returns today accompanied by his . He is wearing his TLSO brace. He likes it. He states he has little bit of difficulty with it in the car. It rides up and is slightly uncomfortable. I told him how to loosen it and adjust. Patient feels it is helping him quite a bit. Patient states if he stands to cook he can only make about 10 to 15 minutes. He gets pain in the tops of his thighs down to his knees. He then has to lay down. He states the pain gets to a level of being screaming pain . His reiterates this. Patient needs refills on his medication his pain medication. Patient is using oxycodone 5 mg per 5 mL solution 10 mL orally every 4 hours. Patient also uses Lyrica 150 mg twice daily. Patient has a history of hypertension. Patient has a history of lung cancer. He has depression. He is status post a TIA. He has a postherpetic neuralgia as well. He has had a right middle lobectomy for his pulmonary disease. Patient is also had a gastric bypass. He has difficulty with absorption of medication. He is a smoker 1 pack a day. Patient has difficulty with memory issues. He has low back pain and sacroiliitis pains. He has hypercholesterolemia COPD. * ROS: G eneral/Constitutional: Denies Change appetite. Denies Chills. Denies Fatigue. Denies Fever. Denies Lightheadedness. ENT: Denies Tinnitus. Denies Dysphagia. Ophthalmologic: Denies Blurred vision. * Medical History: L sree cancer, Depression, TIA, Post herpetic neuralgia. * Surgical History: G astric bypass , ORIF left leg , right middle lobectomy . * Hospitalization/Major Diagno stic Procedure: n o hospitalization since prior visit . * Social History: * Established Patient: S moking D o you smoke? Y es H ow many packs per day? 1 S abiodnu when have you smoked? 0 02/25/2025 * Medications: T aking Doxycycline Hyclate 100 MG Tablet Oral , Taking Hydrocortisone 2.5 % Cream External , Taking Midodrine HCl 2.5 MG Tablet 2.5 mg orally twice a day; do not give last dose of day after 6PM or within 4 hrs of bedtime Oral , Taking Butrans 10 MCG/HR Patch Weekly 1 patch to skin Transdermal ONCE A WEEK , Notes to Pharmacist: NEEDS PA PLEASE, Taking Pregabalin 150 mg Capsule Take 1 capsule twice a day for 30 day(s) , Taking Lidocaine 5 % Patch Take 2 transdermal patches Once a day , Taking tiZANidine HCl 4 mg Tablet Take 1 tablet three times a day , Taking oxyCODONE HCl 5 MG/5ML Solution 10 milliliters Oral every 4 hours , Unknown Albuterol Sulfate HFA 108 (90 Base) MCG/ACT Aerosol Solution Inhalation , Unknown Atorvastatin Calcium 10 MG Tablet TAKE ONE TABLET BY MOUTH EVERY DAY Oral , Unknown Trelegy Ellipta 100-62.5-25 MCG/ACT Aerosol Powder Breath Activated Inhalation , Unknown LORazepam 0.5 MG Tablet TAKE ONE TABLET BY MOUTH TWICE DAILY NEEDED FOR ANXIETY Oral , Unknown Varenicline Tartrate (Starter) 0.5 MG X 11 & 1 MG X 42 Tablet Therapy Pack USE DIRECTED Oral , Unknown Cyanocobalamin 1000 MCG/ML Solution Injection , Unknown traZODone HCl 50 MG Tablet TAKE 1 - 2 TABLETS BY MOUTH AT BEDTIME FOR SLEEP Oral , Unknown Cyanocobalamin 1000 MCG/ML Solution INJECT 1ML INTO MUSCLE ONCE MONTHLY Injection , Unknown PARoxetine HCl 40 MG Tablet Oral , Unknown Nystatin 807618 UNIT/ML Suspension TAKE 5 ML (500,000 UNITS TOTAL) BY MOUTH 4 (FOUR) TIMES A DAY FOR 14 DAYS SWISH & SWALLOW Mouth/Throat , Unknown Cyanocobalamin 1000 MCG/ML Solution INJECT 1ML INTO MUSCLE ONCE MONTHLY Injection , Unknown Varenicline Tartrate (Starter) 0.5 MG X 11 & 1 MG X 42 Tablet Therapy Pack TAKE DIRECTED ON PACKAGE. Oral , Unknown buPROPion HCl ER (XL) 300 MG Tablet Extended Release 24 Hour TAKE 1 TABLET BY MOUTH EVERY DAY IN THE MORNING Oral , Medication List reviewed and reconciled with the patient * Allergies: P enicillin: hives. Objective: * Vitals: H t: 5ft 9in, Wt:164lbs, BP:131/88mm Hg, Pain scale:61-10, HR:82/min, BMI:24.22Index, Ht-cm: 175.26 cm, Wt-k.39 kg, Body Surface Area: 1.9. * Examination: G eneral Examination: O n examination patient is sitting slumped. He has the TLSO on. It is loosened up at the shoulder joint. It was tightened for patient. Patient has bilateral positive compression testing of the sacroiliac joints with bilateral positive Gaenslen's maneuver and Delgado's maneuver. His gait is shuffled. He is forward flexed at the waist. He has difficulty with extension. He gets pain in the lower lumbar spine as well. Patient has well-healed scar of the previous lumbar surgery. Patient is fused at L3-4 L4-5 and L5-S1 with anterior cages as well as posterior hardware. He has a previous spinal cord stimulator placement. Stimulator ranges from T6-T7. Assessment: * Assessment: 1. O ther amnesia - R41.3 (Primary) 2 . P ostherpetic neuralgia - B02.29? 3. L ow back pain - M54.50 4 . B ariatric surgery status - Z98.84 5 . L troy term (current) use of opiate analgesic - Z79.891 6 . L umbar spondylosis - M47.816 7 . L eg length discrepancy - M21.70 ? 8 . L umbar radiculopathy - M54.16 9 . L umbar postlaminectomy syndrome - M96.1 1 0. S acroiliitis - M46.1 1 1. C ervical spine pain - M54.2 1 2. C OPD (chronic obstructive pulmonary disease) - J44.9 ? 1 3. H ypercholesterolemia - E78.00 1 4. L umbar spine pain - M54.50 1 5. S /P bariatric surgery - Z98.84 1 6. L sree cancer - C34.90 1 7. H istory of TIA (transient ischemic attack) - Z86.73 ? Plan: * Treatment: * Follow Up: P atient will follow-up for bilateral sacroiliac joint injections. Patient will follow-up for medication management in 1 month., [place], [id number] * Billing Information: * Visit Code: * Procedure Codes: * Electronic signature of Terrance Roberts MD on 11/13/2024 at 07:25 PM SHOEMAKING FINISHER Sign off status: Pending * Provider: Charly Roberts MD Date: 0 11/09/2024 Generated for Dalton chin/Ema/Kendra on: 0 11/13/2024 07:25 PM SHOEMAKING FINISHER History and Physical Notes * HPI (History of Present Illness) Category Sub-Category Detail Notes Category Notes *Pain Management: Patient returns today accompanied by his . He is wearing his TLSO brace. He likes it. He states he has little bit of difficulty with it in the car. It rides up and is slightly uncomfortable. I told him how to loosen it and adjust. Patient feels it is helping him quite a bit. Patient states if he stands to cook he can only make about 10 to 15 minutes. He gets pain in the tops of his thighs down to his knees. He then has to lay down. He states the pain gets to a level of being screaming pain . His reiterates this. Patient needs refills on his medication his pain medication. Patient is using oxycodone 5 mg per 5 mL solution 10 mL orally every 4 hours. Patient also uses Lyrica 150 mg twice daily. Patient has a history of hypertension. Patient has a history of lung cancer. He has depression. He is status post a TIA. He has a postherpetic neuralgia as well. He has had a right middle lobectomy for his pulmonary disease. Patient is also had a gastric bypass. He has difficulty with absorption of medication. He is a smoker 1 pack a day. Patient has difficulty with memory issues. He has low back pain and sacroiliitis pains. He has hypercholesterolemia COPD. *Established Patient Established Patient Questionnaire: 1. Are you currently taking a Blood Thinner Medication?: No 2. Do you have an allergy to I.V. Contra st or Shellfish?: No 3. List any changes to medic al history. (eg; Falls, Test, Scans, Blood Work, and Hospitalizations): None 4. Have you been exposed to anyone with COVID in the last 2 weeks?: No 5. Have you been exposed to anyone with the FLU in the last 72 hours?: No 6. What is your Pain Level today? (1-10, Scroll and select one): 6 7. Where is your pain located?: Low Back ,Left Leg,Right Leg 8. After your last visit, wh at Percentage of improvement did you experience?: 30 9. Are you doing Physical Therapy, Chiro practic, or Massage Therapy?: No 10. Are you doing an at home Exercise Pr ogram?: Yes 11. What activities or posit ions increase your Pain? (Scroll to select one or multiple): Sitting,Standing,Walking,Chores,Exercise 12. What activities or posit ions decrease your Pain? (Scroll to select one or multiple): Lying down 13. How would you describe y our Pain? (Scroll to select one or multiple): Stabbing,Aching,Throbbing,Burning 14. Are you having difficulty sleeping?: Yes 15. When was the last time y ou had your blood drawn? (Please enter your best estimate): 2023 16. When was your last Mammo gram? (Please put N/A if you are male, for Females please put the best Estimate or Never. ): NA 17. When was your last Colon oscopy? (Please put the best Estimate or Never. ): 01/22/25 18. Do you need any refills on your medi cations today?: Yes 19. Please list ALL changes to Medicatio ns or Allergies?: None 20. Are you Diabetic?: No 21. Do you suffer from Constipation?: No Examination Category Sub-Category Detail Notes Category Not es General Examination On exami nation patient is sitting slumped. He has the TLSO on. It is loosened up at the shoulder joint. It was tightened for patient. Patient has bilateral positive compression testing of the sacroiliac joints with bilateral positive Gaenslen's maneuver and Delgado's maneuver. His gait is shuffled. He is forward flexed at the waist. He has difficulty with extension. He gets pain in the lower lumbar spine as well. Patient has well-healed scar of the previous lumbar surgery. Patient is fused at L3-4 L4-5 and L5-S1 with anterior cages as well as posterior hardware. He has a previous spinal cord stimulator placement. Stimulator ranges from T6-T7.
--- OUTSIDE RECORDS SUMMARY | 2024-11-13 19:26 | XMS_ITS | Clinical Summary ---
Author Organization [facility] Address [address] [place] [address] Care Team Providers Care Whiteprinting Machine Operator Name Role Phone Vickey Hernandez MD Primary Care Provider [phone] Social History Tobacco Use Types Packs/Day Years Used Date Smoking Tobacco: Never Assessed Sex and Gender Information Value Date Recorded Sex Assigned at Not on file Legal Sex Male 12:14 AM CDT Gender Identity Not on file Sexual Orientation Not on file Plan of Treatment Health Maintenance Due Date Last Done Comments Colorectal Cancer Screening Colonoscopy (10 Years) 1960 Hepatitis C 1977 DTaP, Tdap and Td Vaccines ( 1 - Tdap) 1978 Zoster Vaccines (1 of 2) 2009 Pneumococcal Vaccine: 65+ Ye ars (1 of 1 - PCV) 2024 COVID-19 Vaccine ( - 2023-2 5 season) 2024 Influenza Adult (#1) 2024 RSV Immunization or 60+ Years (1 - 1-dose 75+ series) 2034 Meningococcal B Vaccine Aged Out No l onger eligible based on patient's age to complete this topic Meningococcal Vaccine Aged Out No emmett herve eligible based on patient's age to complete this topic Pneumococcal Vaccine: Pediat rics (0 to 5 Years) and At-Risk Patients (6 to 64 Years) Aged Out No longer eligible b ased on patient's age to complete this topic RSV Immunizations Under 20 Months Aged Out No longer eligible based on patient's age to complete this topic Care Teams Whiteprinting Machine Operator Relationship Specialty Start Date End Date Vickey Hernandez MD [facility] - General 01/06/17
--- OUTSIDE RECORDS SUMMARY | 2024-11-13 19:26 | XMS_ITS ---
Author Organization [facility] Address [address] [place] [address] [address] [place] [address] Care Team Providers Care Reinforcing Metal Worker Name Role Phone Joss Roberts Unavailable [phone] Medications Medication SIG (Take, Route, Fr equency, Duration) Notes Start Date End Date Status tiZANidine HCl 4 mg Take 1 tablet three times a day for 90 days Active Lidocaine 5 % Take 2 transdermal p atches Once a day for 30 days Active oxyCODONE HCl 5 MG/5ML 10 milliliters Or al every 4 hours for 30 days 10/12/2024 Active Encounters Encounter Location Date Provider Diagnosis [facility] [address] [place] [address] [address] [place] [address] 10/12/2024 Joss Roberts Plan Of Treatment Medication Medication Name Sig Start Date Stop Date Notes tiZANidine HCl 4 mg Take 1 tablet three times a day for 90 days Lidocaine 5 % Take 2 transdermal p atches Once a day for 30 days oxyCODONE HCl 5 MG/5ML 10 milliliters Or al every 4 hours for 30 days 10/12/2024 Next Appt Details Provider Name:Tran cote, 12/07/2024 09:45:00 AM, [address] [place] [address], [address], [place], [address], Progress Notes * Xavier SMITHOB:1960 (64 yo M)Acc No.[id number]:10/12/2024 Patient: Kiran VILLAFANA :1960 A ge:64 Y S ex:Male Address:[address] [place] [address], [place], [address] * Refills Refill Lidocaine Patch, 5 %, 60, Take 2 transdermal patches, Once a day, 30 days, Refills=2 Refill tiZANidine HCl Tablet, 4 mg, 180, Take 1 tablet, three times a day, 90 days, Refills=1 Refill oxyCODONE HCl Solution, 5 MG/5ML, 1800 Milliliter, 10 milliliters Oral, every 4 hours, 30 days, Refills=0 * true * Date: Generated for Dalton chin/Ema/Laureitting on: 0 11/13/2024 07:26 PM EMISSION TECHNICIAN
[2024-11-13 19:28] LABS: Partial Thromboplastin Time 40.8 Seconds (22.3-36.8)
[2024-11-13 19:34] LABS: D Dimer 0.83 ug/mL (<0.48)
[2024-11-13 19:45] LABS: Troponin I < 0.012 ng/mL (0.000-0.034)
[2024-11-13 20:09] VITALS: BP 124/76; PULSE 78; RESP 18; O2SAT 95
[2024-11-13 20:45] LABS: Influenza A QL RT-PCR Positive (Negative); Influenza B QL RT-PCR Negative (Negative); RSV RNA, RT-PCR Negative (Negative); SARS-CoV-2 RNA PCR Negative (Negative)
--- NOTE | 2024-11-13 21:17 | ED.SOB ---
HPI - SOB/Dyspnea General Chief Complaint: Shortness of Breath/Dyspnea Stated Complaint: SOB Time Seen by Provider: 11/13/24 18:39 History of Present Illness HPI Narrative: 64-year-old male with a past medical history including COPD and lung cancer status post lobectomy. He still smokes approximately half a pack per day. States he has been using his nebulizer and albuterol treatments at home without any significant relief of his symptoms but has been short of breath for last week. Ambulance was called and gave him a DuoNeb inhaler EN route and he felt improved at that time. Patient states this feels like a COPD exacerbation to him. He denies any chest pain or discomfort. No nausea, vomiting, abdominal pain or back pain. No fever chills. No recent sick contacts to his knowledge. He lives at home with his who takes care of him. Does not use any oxygen at home. Related Data Home Medications ?Medication ?Instructions ?Recorded ?Confirmed ?Last Taken ?Type lidocaine 5 % topical patch 1 patch topical DAILY 08/17/19 09/11/24 Unknown History mv-folic acid 200 mcg-D3 300 tablet PO 08/17/19 09/11/24 Unknown History unit-K2 20 [id number] tablet (Stages Men's Multi-Vitamin) omeprazole 20 mg capsule,delayed 20 mg PO BID 08/17/19 09/11/24 Unknown History release pregabalin 150 mg capsule (Lyrica) 150 mg PO BID 05/15/20 09/11/24 Unknown History ferrous sulfate 325 mg (65 mg 325 mg PO DAILY 01/28/23 09/11/24 Unknown History iron) tablet oxycodone 10 mg/0.5 mL oral 10 mg PO Q8H 10/13/23 09/11/24 Unknown History syringe (FOR ORAL USE ONLY) aspirin 81 mg tablet,delayed 81 mg PO DAILY 04/26/24 09/11/24 Unknown History release (Adult Low Dose Aspirin) vitamin B complex 1 tablet PO DAILY 04/26/24 09/11/24 Unknown History Allergies Allergy/AdvReac Type Severity Reaction Status Date / Time Penicillins Allergy Unknown Itching Verified 11/13/24 18:51 Review of Systems Review of Systems: As reviewed above in HPI [facility] Past Medical History Medical History BMI 26.0-26.9,adult Facial rash Impaired functional mobility, balance, gait, and endurance Facial droop Bowel perforation Crushing injury leg Encounter for Medicare annual wellness exam BMI 24.0-24.9, adult Hypotension Tibial fracture Absence seizure Borderline abnormal TFTs Vitamin B2 deficiency Vitamin B1 deficiency Cognitive changes Tremor Acute nonintractable headache Chronic fatigue Change in vision BMI 22.0-22.9, adult Back pain Cervicalgia BMI 32.0-32.9,adult [place]RETE (dyspnea on exertion) BMI 31.0-31.9,adult Encounter for routine adult health examination with abnormal findings BMI 30.0-30.9,adult Hearing loss Myopia BMI 29.0-29.9,adult Encounter for preventive health examination Breast tenderness in male Vitamin D deficiency Squamous cell carcinoma BMI 25.0-25.9,adult Encounter for routine adult health examination with abnormal findings Tobacco abuse Shortness of Breath Hemoptysis DJD (degenerative joint disease) Hematuria GERD (gastroesophageal reflux disease) BMI 27.0-27.9,adult Encounter for routine adult health examination without abnormal findings COPD (chronic obstructive pulmonary disease) Follow up Personal history of nicotine dependence Hematoma Chronic low back pain Ataxia CTS (carpal tunnel syndrome) Vitamin B12 deficiency 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 Iron deficiency anemia Hearing loss of both ears Surgical History Surgical History S/P pneumonectomy Previous back surgery x6 Hx of gastric bypass Family History Family History Father Hypertension Family history of heart disease in male family member before age 55 Family history of cardiovascular disease Mother Hypertension Family history of diabetes mellitus in first degree relative Family history of malignant neoplasm of brain Family history of heart disease in male family member before age 55 Family history of cardiovascular disease Other Diabetes mellitus Social History Social History Smoking packs per day: 1 Smoking cigarettes per day: 20.0 Years smoked: 45 Smoking pack-years: 45.00 Smoking status: Current every day smoker Tobacco type: cigarettes Second hand tobacco smoke exposure: No Smoking end date: 02/02/20 Additional smoking assessment comments: smoking less than 1/2 pack currently Alcohol intake: never Substance use: current Substance use type: marijuana Other substance usage details: [place] Lack of Transportation: No Lack of Food: Never True Current Housing: I Have Housing Concerned About Future Housing: No Difficulty Paying Gas/Electric Bills: YES Difficulty Paying for Meds: No Currently Unemployed: No Education: High School Diploma/GED Difficulty w/ Childcare or Family Care: No Living arrangements: with family Occupation/Education: unemployed Gender identity (if verbalized by the patient): Male Spiritual care concerns: No Exam Narrative: GENERAL: Appears older than stated age, but not any acute distress, awake alert oriented, answers all questions appropriately HEAD: [Normocephalic, atraumatic.] EYES: [PERRLA and EOMI.] ENT: Nares clear, no rhinorrhea or epistaxis. Mucous membranes moist. NECK: Supple. CHEST: Diffuse wheezing throughout both lung almaguer, no tachypnea, no accessory muscle use or conversational dyspnea. HEART: [Regular rate and rhythm]. No murmur heard. [Normal peripheral pulses.] ABDOMEN: [Soft, nondistended], [nontender], [No rigidity or guarding] EXTREMITIES: Normal range of motion. [No edema.] SKIN: Warm, dry, no rash. NEURO: [No focal deficits]. Alert and oriented [x3.] PSYCH: [Normal mood and affect.] Course Vital Signs Vital signs: Vital Signs Temperature 36.6 C 11/13/24 18:44 Pulse Rate 71 11/13/24 18:44 Respiratory Rate 20 11/13/24 18:44 Blood Pressure 132/81 11/13/24 18:44 Pulse Oximetry 94 11/13/24 18:44 Oxygen Delivery Room Air 11/13/24 18:44 Temperature 36.6 C 11/13/24 18:44 Pulse Rate 85 11/13/24 21:30 Respiratory Rate 18 11/13/24 21:30 Blood Pressure 135/67 11/13/24 21:30 Pulse Oximetry 95 11/13/24 21:30 Oxygen Delivery Room Air 11/13/24 18:50 MDM - SOB/Dyspnea MDM Narrative Medical decision making narrative: 64-year-old male with history of lung cancer status post lobectomy now in remission, he has a history of COPD as well as a seizure disorder. He has been taking some nebulizer treatments over last week without any improvement of his difficulty in breathing. Called an ambulance today for assistance. He felt better after the nebulized DuoNeb in route. He is diffusely wheezy but not any respiratory distress. He still smokes daily. He is saturating 95% on room air, no tachycardia, tachypnea, fever or hypoxia. Normal blood pressure. He is otherwise well comfortable but appears older than stated age. Patient feels like this could be a COPD exacerbation. No recent sick contacts or illnesses. He was treated with nebulized albuterol and ipratropium and given a fluid bolus as well as 40 mg of IV Solu-Medrol. Cardiac workup at this time including a x-ray, CBC, CMP, troponin, EKG, PT, PTT, D-dimer and a COVID flu and RSV swab was obtained. Differential includes COPD exacerbation, bronchospasm, recurrence of his lung cancer, less likely intrathoracic process such as pneumonia, ACS or thromboembolic event such as PE. Workup shows a slight leukocytosis of 11.1, hemoglobin of 12.6 which is around his previous levels. Normal platelet count. He has a elevated D-dimer of 0.83, normal INR. Electrolytes within normal range, normal renal function panel. Normal glucose and LFTs. Negative initial troponin. Patient did test positive for influenza, would explain his symptomatology especially with a background of COPD. Chest x-ray shows a very small right-sided pleural effusion without infiltrates. Given his elevated D-dimer and respiratory complaints as CT angiography of his chest was ordered. CT shows no pulmonary embolism or dissection, there is patchy bibasilar ground-glass opacity suspecting for infection as well as left descending bronchus being largely obstructed with postobstructive consolidation being noted. Will reach out to pulmonology for recommendations at this juncture. Will start him on community-acquired pneumonia antibiotics including azithromycin, Rocephin. Spoke to Dr. Mosley from pulmonology and we went over patient's care plan together. Recommendations at this time for scheduled bronchodilators and steroids with continued antibiotics and will be seen on inpatient basis tomorrow for further recommendations and potential intervention such as bronchoscopy. Awaiting consult with the hospitalist team for admission. Patient is hemodynamically stable, saturating well on room air, coughing frequently but no longer dyspneic and felt significantly improved from wheezing standpoint on re-evaluation. Patient was accepted to a medical-surgical bed after I spoke to the hospitalist Dr. Bell and relayed the history and plan of care. Patient and family made aware of the plan and safely admitted. Differential Diagnosis Differential diagnosis: Likely acute exacerbation of chronic obstructive airways disease, congestive heart failure, community acquired pneumonia, pulmonary embolism and other Medical Records Attestation: I reviewed the patient's medical records. Lab Data Attestation: I reviewed the patient's lab results. 11/13/24 18:58 11/13/24 18:58 Labs: Lab Results 11/13/24 11/13/24 Range/Units 18:58 20:05 WBC 11.1 H (4.5-10.0) K/mm3 RBC 4.71 (4.6-6.20) M/mm3 Hgb 12.6 L (14.0-18.0) g/dL Hct 39.6 L (42.0-52.0) % MCV 84.1 (80-100) fl MCH 26.8 (26-34) pg MCHC 31.8 L (32-36) g/dl RDW 15.9 H (11.5-14.5) % Plt Count 189 (150-375) k/mm3 MPV 10.1 (7.4-10.4) fl Immature Gran % (Auto) 0.2 (0-0.5) % Neut % (Auto) 83.0 H (45.5-73.1) % Lymph % (Auto) 8.5 L (18.3-44.2) % [place] % (Auto) 7.7 (2.6-8.5) % Eos % (Auto) 0.3 (0-4.4) % Baso % (Auto) 0.3 (0.2-1.2) % Lymph # (Auto) 0.95 (0.9-3.2) K/mm3 [place] # (Auto) 0.9 H (0.1-0.6) K/mm3 Eos # (Auto) 0.0 (0-0.3) K/mm3 Baso # (Auto) 0.0 (0.0-0.1) K/mm3 Abs Immat Gran (auto) 0.02 (0.00-0.031) K/mm3 Absolute Neuts (auto) 9.2 H (1.3-6.7) K/mm3 Absolute Nucleated RBC 0.000 (0.0-0.012) K/mm3 Nucleated RBC % 0.0 (0.0-0.2) % PT 14.0 (11.1-14.7) Seconds INR 1.1 APTT 40.8 H (22.3-36.8) Seconds D-Dimer 0.83 H (<0.48) ug/mL Sodium 135 L (137-145) mmol/L Potassium 3.5 (3.4-5.0) mmol/L Chloride 100 (98-107) mmol/L Carbon Dioxide 28 (22-30) mmol/L Anion Gap 7 (4-12) mmol/L BUN 18 (9-20) mg/dL Creatinine 0.81 (0.7-1.3) mg/dL Estim Creat Clear Calc 77 ml/min Estimated GFR > 60 (59 - ) Glucose 112 H (65-110) mg/dL Calcium 8.3 L (8.4-10.2) mg/dL Magnesium 1.9 (1.6-2.3) mg/dL Total Bilirubin 0.8 (0.2-1.3) mg/dL AST 20 (17-59) U/L ALT 13 (6-50) U/L Alkaline Phosphatase 96 (38-126) U/L Troponin I < 0.012 (0.000-0.034) ng/mL Total Protein 7.0 (6.3-8.2) g/dL Albumin 3.4 L (3.5-5.1) g/dL Influenza A (RT-PCR) Positive A (Negative) Influenza B (RT-PCR) Negative (Negative) RSV (RT-PCR) Negative (Negative) SARS-CoV-2 RNA (RT-PCR) Negative (Negative) Imaging Data Attestation: I personally reviewed and interpreted this imaging study as follows: My impression: Impressions Chest X-Ray 11/13/24 19:12 IMPRESSION: Small right-sided pleural effusion without focal infiltrate. Chest CTA 11/13/24 21:03 IMPRESSION: No pulmonary embolus. No thoracic aortic dissection. Obstruction of the left lower lobe bronchus with postobstructive consolidation for which direct visualization is recommended. Additional findings within the remainder of the left as well as the remaining right lung for which infectious etiology is favored. Discharge Plan Discharge Clinical Impression: Postobstructive pneumonia, Community acquired pneumonia, Acute exacerbation of chronic obstructive pulmonary disease, History of lung cancer, Influenza Patient Disposition: Still a Patient Condition: Stable Patient Language: Nauruan Prescriptions: No Action lidocaine 5 % adhesive patch,medicated 1 patch TOPICAL DAILY omeprazole 20 mg capsule,delayed release(DR/EC) 20 mg PO BID Stages Men's Multi-Vitamin 200 mcg-300 unit-20 mcg tablet PO pregabalin [Lyrica] 150 mg capsule 150 mg PO BID ferrous sulfate 325 mg (65 mg iron) tablet 325 mg PO DAILY oxycodone 10 mg/0.5 mL syringe 10 mg PO Q8H tizanidine 4 mg capsule 4 mg PO TID PRN (Reason: muscle spasticity) Qty: 30 0RF bupropion HCl 300 mg tablet extended release 24 hr See Rx Instructions .ROUTE .COMPLEX Qty: 90 0RF Dose Instruction: TAKE 1 TABLET BY MOUTH EVERY MORNING Rx Instructions: TAKE 1 TABLET BY MOUTH EVERY MORNING albuterol sulfate 90 mcg/actuation HFA aerosol inhaler See Rx Instructions .ROUTE .COMPLEX Qty: 8.5 1RF Dose Instruction: TAKE 1-2 PUFFS EVERY 4 HOURS NEEDED FOR SHORTNESS OF BREATH/WHEEZING. Rx Instructions: TAKE 1-2 PUFFS EVERY 4 HOURS NEEDED FOR SHORTNESS OF BREATH/WHEEZING. vitamin B complex Tablet 1 tablet PO DAILY aspirin [Adult Low Dose Aspirin] 81 mg tablet,delayed release (DR/EC) 81 mg PO DAILY levetiracetam 500 mg tablet extended release 24 hr 1,500 mg .ROUTE .COMPLEX Qty: 90 5RF Rx Instructions: 1,500 mg; midodrine 2.5 mg tablet 2.5 mg PO BID Qty: 180 1RF Rx Instructions: do not give last dose of day after 6PM or within 4 hrs of bedtime atorvastatin 10 mg tablet 10 mg PO DAILY Qty: 30 3RF paroxetine HCl 40 mg tablet See Rx Instructions .ROUTE .COMPLEX Qty: 90 1RF Dose Instruction: TAKE 1 TABLET BY MOUTH EVERY DAY Rx Instructions: TAKE 1 TABLET BY MOUTH EVERY DAY Trelegy Ellipta 100-62.5-25 mcg blister with device 1 inh inhalation DAILY Qty: 60 3RF cyanocobalamin (vitamin B-12) 1,000 mcg/mL solution See Rx Instructions .ROUTE .COMPLEX Qty: 3 1RF Dose Instruction: INJECT 1ML INTO MUSCLE ONCE MONTHLY Rx Instructions: INJECT 1ML INTO MUSCLE ONCE MONTHLY BD Luer-Collin Syringe 3 mL 25 gauge x 1 syringe See Rx Instructions .ROUTE .COMPLEX Qty: 3 3RF Dose Instruction: FOR FOR ONCE MONTHLY IM INJECTIONS OF VITAMIIN B12 DIRECTED Rx Instructions: FOR ONCE MONTHLY IM INJECTIONS OF VITAMIIN B12 DIRECTED trazodone 50 mg tablet See Rx Instructions .ROUTE .COMPLEX Qty: 180 1RF Dose Instruction: TAKE 1 - 2 TABLETS BY MOUTH AT BEDTIME FOR SLEEP Rx Instructions: TAKE 1 - 2 TABLETS BY MOUTH AT BEDTIME FOR SLEEP lorazepam 0.5 mg tablet 0.5 mg PO BID PRN (Reason: anxiety) Qty: 60 1RF Follow-up/Referrals: Vickey Hernandez MD [Primary Care Provider] - Time of Disposition: 21:47
[2024-11-13 21:30] VITALS: BP 135/67; PULSE 85; RESP 18; O2SAT 95
[2024-11-13] MEDS: cefTRIAXone 2 GM/NS 100 ML 2 GM/100 ML BAG IVPB (22:49)
[2024-11-13 23:00] VITALS: BP 117/72; PULSE 79; RESP 18; O2SAT 96
[2024-11-13 23:54] VITALS: BMI 24.7
--- NOTE | 2024-11-13 23:55 | ADMGEN ---
This patient, Kiran Smith, was admitted to [facility] Surg Room 312-01. Patient/family oriented to hospital policies and general routines including ID bracelet, bed and alarms, visiting hours, pain management, procedures, bathroom and other care routines, personal items, smoking policy, room service/diet, and visiting hours. Information on how to activate the Rapid Response Team has been discussed. Patient/Family are encouraged to report perceived risks to care and to ask questions if they do not understand what they are told or what they should do.
[2024-11-14] VITALS (11 sets, daily range): BP systolic 101–151; BP diastolic 60–82; PULSE 62–83; RESP 14–20; TEMP 36.1–36.8; O2SAT 90–94
[2024-11-14] MEDS: AZITHROMYCIN 500 MG/NS 250 ML 500 MG/250 ML BAG 250 MG IVPB ×2 (00:15→23:28)
[2024-11-14] MEDS: methylPREDNISolone SOD SUCC 40 MG VIAL IV PUSH ×2 (01:31→06:04)
--- NOTE | 2024-11-14 02:20 | PM.IMHP ---
H&P: HPI History of Present Illness Date/Time: 11/14/24 02:20 Chief Complaint: Shortness of breath Narrative: This is a pleasant 64-year-old male with a past medical history to tobacco abuse, COPD, lung cancer status post right middle lobe lobectomy in 2019, vitamin B12 deficiency, iron deficiency anemia, chronic pain and chronic opioid use, GERD, hypotension who presents with shortness of breath for about a week. He has been using his nebulizers and albuterol treatments at home without significant relief. Patient called the EMS on 11/13/2024 at which point he received DuoNeb in route to [facility] and he felt much better. Patient unsure if he was wheezing. He lives at home with his . ER course demonstrated 97% O2 saturation on room air. He was given nebulized albuterol and ipratropium, fluid bolus, 40 mg of IV Solu-Medrol. Leukocytosis 11.1. Influenza A positive. CTA chest without PE. Patchy bibasilar ground opacity suspicious for infection as well as left descending bronchus being largely obstructive with postobstructive consolidation chief noted as well. Which patient started on azithromycin and Rocephin. Dr. Mosley vice president pharmacy consulted from ER. Recommended continue steroids antibiotics and bronchodilators. Patient will remain NPO for possible bronchoscopy. Review of Systems Review of Systems: All systems reviewed & are unremarkable except as noted in HPI and below (HPI) [facility] Past Medical History Medical History BMI 26.0-26.9,adult Facial rash Impaired functional mobility, balance, gait, and endurance Facial droop Bowel perforation Crushing injury leg Encounter for Medicare annual wellness exam BMI 24.0-24.9, adult Hypotension Tibial fracture Absence seizure Borderline abnormal TFTs Vitamin B2 deficiency Vitamin B1 deficiency Cognitive changes Tremor Acute nonintractable headache Chronic fatigue Change in vision BMI 22.0-22.9, adult Back pain Cervicalgia BMI 32.0-32.9,adult [place] (dyspnea on exertion) BMI 31.0-31.9,adult Encounter for routine adult health examination with abnormal findings BMI 30.0-30.9,adult Hearing loss Myopia BMI 29.0-29.9,adult Encounter for preventive health examination Breast tenderness in male Vitamin D deficiency Squamous cell carcinoma BMI 25.0-25.9,adult Encounter for routine adult health examination with abnormal findings Tobacco abuse Shortness of Breath Hemoptysis DJD (degenerative joint disease) Hematuria GERD (gastroesophageal reflux disease) BMI 27.0-27.9,adult Encounter for routine adult health examination without abnormal findings COPD (chronic obstructive pulmonary disease) Follow up Personal history of nicotine dependence Hematoma Chronic low back pain Ataxia CTS (carpal tunnel syndrome) Vitamin B12 deficiency 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 Iron deficiency anemia Hearing loss of both ears Surgical History Surgical History S/P pneumonectomy Previous back surgery x6 Hx of gastric bypass Family History Family History Father Hypertension Family history of heart disease in male family member before age 55 Family history of cardiovascular disease Mother Hypertension Family history of diabetes mellitus in first degree relative Family history of malignant neoplasm of brain Family history of heart disease in male family member before age 55 Family history of cardiovascular disease Other Diabetes mellitus Social History Social History Smoking packs per day: 1 Smoking cigarettes per day: 20.0 Years smoked: 45 Smoking pack-years: 45.00 Smoking status: Light tobacco smoker Tobacco type: cigarettes Second hand tobacco smoke exposure: No Smoking end date: 02/02/20 Additional smoking assessment comments: smoking less than 1/2 pack currently Alcohol intake: never Substance use: current Substance use type: marijuana Other substance usage details: Gummies Last use: 11/13/24 Do You Feel Safe in your Home?: Yes Lack of Transportation: No Lack of Food: Sometimes True Current Housing: I Have Housing Concerned About Future Housing: YES Difficulty Paying Gas/Electric Bills: YES Difficulty Paying for Meds: No Currently Unemployed: No Education: High School Diploma/GED Difficulty w/ Childcare or Family Care: No Living arrangements: with family Occupation/Education: unemployed Gender identity (if verbalized by the patient): Male Spiritual care concerns: No Meds Home Medications and Allergies Home Medications ?Medication ?Instructions ?Recorded ?Confirmed ?Type lidocaine 5 % topical patch 1 patch topical DAILY 08/17/19 11/14/24 History mv-folic acid 200 mcg-D3 300 1 tablet PO DAILY 08/17/19 11/14/24 History unit-K2 20 qts-xujhkrbs-hnfb#222 tablet (Stages Men's Multi-Vitamin) omeprazole 20 mg capsule,delayed 20 mg PO BID 08/17/19 11/14/24 History release pregabalin 150 mg capsule (Lyrica) 150 mg PO BID 05/15/20 11/14/24 History ferrous sulfate 325 mg (65 mg 325 mg PO DAILY 01/28/23 11/14/24 History iron) tablet oxycodone 10 mg/0.5 mL oral 10 mg PO Q8H 10/13/23 11/14/24 History syringe (FOR ORAL USE ONLY) tizanidine 4 mg capsule 4 mg PO TID PRN muscle spasticity 10/13/23 11/14/24 Rx #30 caps albuterol sulfate 90 mcg/actuation See Rx Instructions .Route 04/11/24 11/14/24 Rx aerosol inhaler .COMPLEX #8.5 ea aspirin 81 mg tablet,delayed 81 mg PO DAILY 04/26/24 11/14/24 History release (Adult Low Dose Aspirin) vitamin B complex 1 tablet PO DAILY 04/26/24 11/14/24 History midodrine 2.5 mg tablet 2.5 mg PO BID #180 tabs 07/03/24 11/14/24 Rx paroxetine HCl 40 mg tablet See Rx Instructions .Route 07/13/24 11/14/24 Rx .COMPLEX #90 tabs Trelegy Ellipta 100 mcg-62.5 1 inh inhalation DAILY #60 ea 08/02/24 11/14/24 Rx mcg-25 mcg powder for inhalation (qhsmfeelvqg-xnelltwkj-wkphgulp) bupropion HCl 300 mg 24 hr tablet, See Rx Instructions .Route 09/11/24 11/14/24 Rx extended release .COMPLEX #90 tabs cyanocobalamin (vitamin B-12) See Rx Instructions .Route 09/28/24 11/14/24 Rx 1,000 mcg/mL injection solution .COMPLEX #3 mL syringe with needle 3 mL 25 gauge See Rx Instructions .Route 09/28/24 11/14/24 Rx x 1 (BD Luer-Collin Syringe) .COMPLEX #3 ea lorazepam 0.5 mg tablet 0.5 mg PO BID PRN anxiety #60 tabs 10/23/24 11/14/24 Rx levetiracetam 500 mg 1,000 mg PO QHS 11/14/24 11/14/24 History tablet,extended release 24 hr trazodone 50 mg tablet 100 mg PO QHS 11/14/24 11/14/24 History Allergies Allergy/AdvReac Type Severity Reaction Status Date / Time Penicillins Allergy Unknown Itching Verified 11/13/24 18:51 Vital Signs Vital Signs - 24 hr 11/13/24 18:44 11/13/24 18:49 11/13/24 18:50 Temperature 97.9 F Pulse Rate 71 72 Respiratory Rate 20 Blood Pressure 132/81 Pulse Oximetry 94 94 Oxygen Delivery Room Air Room Air 11/13/24 20:09 11/13/24 21:30 11/13/24 23:00 Temperature Pulse Rate 78 85 79 Respiratory Rate 18 18 18 Blood Pressure 124/76 135/67 117/72 Pulse Oximetry 95 95 96 Oxygen Delivery 11/13/24 23:54 11/14/24 00:28 Temperature 97.0 F L Pulse Rate 83 Respiratory Rate 17 Blood Pressure 151/68 H Pulse Oximetry 90 Oxygen Delivery Room Air Exam Const: General: comfortable and no acute distress Eyes: Pupils: Equal, round and reactive pupils present Neck: Neck: supple Resp: Effort & Inspection: normal respiratory effort Auscultation: clear to auscultation bilaterally Cardio: Rate: regular rate Rhythm: regular rhythm GI: GI Palp: Yes Soft to palpation and No Tenderness to palpation present (GI) Extrem: General: no edema H&P: Results Labs Labs: Short CBC 11/13/24 Range/Units 18:58 WBC 11.1 H (4.5-10.0) K/mm3 Hgb 12.6 L (14.0-18.0) g/dL Hct 39.6 L (42.0-52.0) % Plt Count 189 (150-375) k/mm3 BMP 11/13/24 18:58 Sodium 135 L Potassium 3.5 Chloride 100 Carbon Dioxide 28 BUN 18 Creatinine 0.81 Glucose 112 H Calcium 8.3 L Cardiac Enzymes 11/13/24 Range/Units 18:58 Troponin I < 0.012 (0.000-0.034) ng/mL Liver Function 11/13/24 Range/Units 18:58 Total Bilirubin 0.8 (0.2-1.3) mg/dL AST 20 (17-59) U/L ALT 13 (6-50) U/L Alkaline Phosphatase 96 (38-126) U/L Albumin 3.4 L (3.5-5.1) g/dL Assessment and Plan Assessment and plan (1) Influenza A: Code(s): J10.1 - Influenza due to other identified influenza virus with other respiratory manifestations Status: Acute (2) Community acquired pneumonia: Code(s): J18.9 - Pneumonia, unspecified organism Status: Acute (3) Postobstructive pneumonia: Code(s): J18.9 - Pneumonia, unspecified organism Status: Acute Plan This is a pleasant 64-year-old male with a past medical history to tobacco abuse, COPD, lung cancer status post right middle lobe lobectomy in 2019, vitamin B12 deficiency, iron deficiency anemia, chronic pain and chronic opioid use, GERD, hypotension who presents with shortness of breath for about a week. He has been using his nebulizers and albuterol treatments at home without significant relief. Patient called the EMS on 11/13/2024 at which point he received DuoNeb in route to [facility] [facility] and he felt much better. Patient unsure if he was wheezing. He lives at home with his . ER course demonstrated 97% O2 saturation on room air. He was given nebulized albuterol and ipratropium, fluid bolus, 40 mg of IV Solu-Medrol. Leukocytosis 11.1. Influenza A positive. CTA chest without PE. Patchy bibasilar ground opacity suspicious for infection as well as left descending bronchus being largely obstructive with postobstructive consolidation chief noted as well. Which patient started on azithromycin and Rocephin. Dr. Mosley vice president pharmacy consulted from ER. Recommended continue steroids antibiotics and bronchodilators. Patient will remain NPO for possible bronchoscopy. ----- NPO. Lead Bi Developer to see in consultation. Continue azithromycin and ceftriaxone. Start metronidazole. Continue Solu-Medrol and DuoNebs. Blood cultures pending. Trend leukocytosis. Spoke about the risk versus benefits of Tamiflu patient wishes to proceed for influenza A. ----- Patient wishes to be full code. Home medications restarted as appropriate. Holding PRIZE JACKER aspirin for now SCDs. Hospitalist [facility] Advance Care Plan I have confirmed that the patient's Advanced Care Plan is present, code status is documented, or surrogate decision maker is listed in patient medical record.: Yes Medication Reconciliation I have utilized all available resources to obtain, update and review the patients current medications (includes all prescriptions, OTC, herbals, cannabis, and nutritional supplements).: Yes
[2024-11-14] MEDS: OSELTAMIVIR PHOSPHATE 75 MG CAPSULE PO ×2 (02:48→21:14)
[2024-11-14] MEDS: ACETAMINOPHEN 325 MG TABLET 650 MG PO (02:51)
[2024-11-14] MEDS: metroNIDAZOLE 500 MG/ISO 100ML 500 MG/100 ML BAG 100 MG IVPB ×3 (02:54→17:41)
[2024-11-14] MEDS: oxyCODONE (*CRX) 5 MG/5 ML ORAL SOLN IR 10 MG PO ×5 (06:05→21:14)
[2024-11-14] MEDS: IPRATROPIUM 0.5 MG/ALBUTEROL SULFATE 2.5 MG AMPUL.NEB 3 ML INHALATION ×3 (06:45→19:49)
[2024-11-14] MEDS: FLUTICASONE/UMECLIDIN/VILANTER 100-62.5-25 MCG ELLIPTA 1 PUFF INHALATION (06:45)
[2024-11-14] MEDS: FERROUS SULFATE 325 MG TABLET DR BY MOUTH (09:02)
[2024-11-14] MEDS: buPROPion HCL XL (24 HR) 150 MG TABCR 300 MG BY MOUTH (09:02)
[2024-11-14] MEDS: PREGABALIN (*CRX) 75 MG CAPSULE 150 MG PO ×2 (09:02→16:31)
[2024-11-14] MEDS: LIDOCAINE 5% PATCH 1 PATCH TOPICAL (09:03)
[2024-11-14] MEDS: PARoxetine 20 MG TABLET 40 MG BY MOUTH (09:03)
[2024-11-14] MEDS: PANTOPRAZOLE 40 MG TABLET PO ×2 (09:03→21:14)
[2024-11-14 09:36] LABS: Hematocrit 39.8 % (42.0-52.0); Hemoglobin 12.6 g/dL (14.0-18.0); Mean Corpuscular HGB Conc 31.7 g/dl (32-36); Mean Corpuscular Hemoglobin 26.5 pg (26-34); Mean Corpuscular Volume 83.8 fl (80-100); Mean Platelet Volume 10.5 fl (7.4-10.4); Platelet Count Result 185 k/mm3 (150-375); Red Blood Count 4.75 M/mm3 (4.6-6.20); Red Cell Distribution Width 15.9 % (11.5-14.5)
[2024-11-14 09:49] LABS: Alanine Aminotransferase 13 U/L (6-50); Albumin Level 3.2 g/dL (3.5-5.1); Alkaline Phosphatase 95 U/L (38-126); Anion Gap 11 mmol/L (4-12); Aspartate Amino Transferase 18 U/L (17-59); Bilirubin,Total 0.6 mg/dL (0.2-1.3); Blood Urea Nitrogen 16 mg/dL (9-20); Calcium 8.4 mg/dL (8.4-10.2); Carbon Dioxide 27 mmol/L (22-30); Chloride 105 mmol/L (98-107); Estimated CRCL calculation 93 ml/min; Estimated Glomerular Filt Rate > 60; Glucose 152 mg/dL (65-110); Magnesium 2.2 mg/dL (1.6-2.3); Potassium 3.5 mmol/L (3.4-5.0); Sodium 143 mmol/L (137-145)
--- NOTE | 2024-11-14 10:18 | PM.CNPUL ---
Assessment and Plan Assessment and plan (1) Influenza A: Code(s): J10.1 - Influenza due to other identified influenza virus with other respiratory manifestations Status: Acute Assessment and Plan: Patient has influenza a pneumonia. Plan: I have discontinued his Solu-Medrol. Patient is on Tamiflu day 1. Will continue For at least 5 days. patient is on room air at this time with with a goal saturation 90-94%. Will follow with you. (2) COPD (chronic obstructive pulmonary disease): Qualifiers: COPD type: unspecified COPD Qualified Code(s): J44.9 - Chronic obstructive pulmonary disease, unspecified Code(s): J44.9 - Chronic obstructive pulmonary disease, unspecified Status: Acute Assessment and Plan: Patient with a 50 pack year tobacco use, currently smoking 1 pack over 3 days. PFTs on 01/20/2021 with a moderately severe obstructive abnormality with an FEV1 of 1.71 L, 50% predicted, ratio 52%, normal lung volumes, moderately decreased DLCO that normalized when corrected for alveolar volume. currently not on supplemental oxygen at home. Eosinophil on 11/13/2024 is 33 per micro L Plan: patient is currently not wheezing any longer and I will discontinue his systemic steroids because he has influenza a infection. I will continue DuoNebs q.6 hours. he is concurrently being treated for community acquired pneumonia with possible post obstruction with ceftriaxone, azithromycin and Flagyl. Will continue for now. (3) Postobstructive pneumonia: Code(s): J18.9 - Pneumonia, unspecified organism Status: Acute Assessment and Plan: Patient with a normal CT scan 07/10/2024 and now with multifocal nodular consolidations with influenza pneumonia. Plan: I will continue to treat the patient for influenza pneumonia with Tamiflu and possible bacterial infection with ceftriaxone, azithromycin and Flagyl. Overall I will continue these treatments until the patient is recovered and repeat a CT scan in the future to reassess his infiltrates. I will place the patient on guaifenesin 1200 mg p.o. b.i.d. and had a Cornet flutter valve to aid in sputum expectoration History of Present Illness History of Present Illness Consult date: 11/14/24 Chief complaint: Postobstructive pneumonia, Community-Acquired pneu Narrative: 11/14/2024: This is a new pulmonary consult for influenza and possible post obstructive pneumonia. 64-year-old with a history of tobacco use, COPD, stage I A lung cancer status post right upper lobectomy on , gastric bypass 2000, GERD. regarding his lung cancer the patient had a right upper lobectomy with leg negative lymph nodes on 01/23/2020. He received no additional treatment. He is followed by Dr. Quinten mccurdy and had a CT scan on 07/10/2024 with emphysema no evidence of malignancy with recommendation to repeat in 1 year. Regarding his COPD. Patient smoked tobacco from age 14 to current at 1 pack per day for a total of 50 pack years. He was exposed to secondhand smoke from his father. 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 He did wear respiratory protection when he grinds id. He retired 4-5 years ago. He is not on any home oxygen. He is maintained on trelegy 100 and p.r.n. albuterol. patient tells me he presents with 3 weeks history of cough and phlegm which was brown. Two weeks worth of shortness of breath. Symptoms actually got better until about 3 days ago when his cough and shortness of breath got worse. His phlegm production increased. He presented to the emergency room on 11/13/2024. His blood pressure was 132/ 81, heart rate 71, respirations 20, room air saturations 94%. White blood cell count 11.1, creatinine 0.81, D-dimer 0.83. Influenza a RT PCR positive. Chest x-ray showed left lower lobe consolidation. CT angiogram of the chest showed left lung nodular consolidations throughout. Panlobular emphysema. Left lower lobe was completely consolidated with cutoff of the left lower lobe bronchi. There are no pleural effusions. patient was treated with Tamiflu, ceftriaxone, azithromycin, Solu-Medrol and Flagyl. 11/14/2024. Today the patient states that he is breathing better. He says he is breathing 50% back to his normal. His cough is 50% better and his wheezing is 60% better. Currently the patient is on room air with saturations 92%. 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 Personal history of right-sided lung cancer post right middle lobectomy in 2020 with negative margins. TECHNIQUE: Computed tomographic angiography (CTA) of the chest was performed with 100 mL Omnipaque-350 intravenous contrast. The dose-length product was 399.78 mGy-cm. Maximum intensity projection 3D-reconstructions of the aorta and other arteries were constructed by the technologist on a separate workstation. COMPARISON: 07/10/2024 FINDINGS/OBSERVATIONS: PULMONARY ARTERIES: No filling defect is identified within the main or proximal pulmonary artery. The main pulmonary artery is not enlarged. THORACIC AORTA: No aneurysmal dilatation or dissection is present. The great vessels are intact LUNGS: Patchy groundglass opacification detected bilaterally, possibly infectious in origin. The left descending bronchus is largely obscured for which direct visualization is recommended. Post obstructive consolidation is noted, involving the entirety of the left lower lobe. Panlobular emphysematous disease is also noted. Biapical scarring is present. Postoperative change within the right hilum, consistent with patient's history. MEDIASTINUM: Mediastinal lymphadenopathy is identified within the aortopulmonary window and the left paratracheal region. The largest lymph node is within the left paratracheal region measuring 12 mm in short axis dimension. Multiple calcified lymph nodes are also detected within the mediastinum, suggesting prior granulomatous disease. BONES OF THE CHEST: No acute fracture. No significant degenerative disease. No lytic or blastic lesions. Leads from a stimulator device are identified within the canal. HEART: The heart is borderline enlarged, without pericardial effusion. IMPRESSION: No pulmonary embolus. No thoracic aortic dissection. Obstruction of the left lower lobe bronchus with postobstructive consolidation for which direct visualization is recommended. Additional findings within the remainder of the left as well as the remaining right lung for which infectious etiology is favored. 07/10/24: Clinical Indication: Lung cancer CT Scan of the Chest with Contrast: Technique: Contiguous sections were acquired throughout the chest after intravenous administration of 75 cc of Omnipaque 350. Dose reduction technique was used on this scan by utilizing automated exposure control and iterative reconstruction technique. The dose-length product (DLP) was 178.75 mGy-cm. COMPARISON: 02/06/2022 Findings: There is no evidence of any significant mediastinal, hilar or axillary lymphadenopathy. There is no filling defect in the pulmonary arterial tree to suggest pulmonary embolus. There is no evidence of aortic dissection or aneurysm. There is no evidence of pleural or pericardial effusion. Status post right middle lobectomy. There is biapical scarring, unchanged. Paraseptal emphysema is unchanged, predominantly in the upper lobes. Stable scarring at the inferior right upper lobe. There is left basilar consolidation, presumably atelectasis. Images through the upper abdomen reveal probable prior bariatric surgery. There are mild compression fractures of L1 and L2, age indeterminate. Impression: No evidence of active malignancy or metastatic disease. Status post right middle lobectomy. Emphysema and scarring, as above. Probable left basilar atelectasis versus possibly pneumonia. Compression fractures of L1-L2, age indeterminate, new since prior exam. 06/17/2021 This is a pulmonary function test with pre and post-bronchodilator spirometry, plethysmography and diffusing capacity. The test was performed and results interpreted in accordance with the 2019 and 2005 ATS/ERS Task Force guidelines respectively using the Global Lung Function Initiative-2012 reference equations. Patient demonstrated good effort and cooperation. Reproducibility criteria were met. The quality of the pre bronchodilator spirometry maneuver was Grade A and post bronchodilator spirometry maneuver was Grade A. Findings: Spirometry: there is decreased maximal expiratory airflow at all lung volumes with concave expiratory flow tracing. The contour of the inspiratory flow tracing is normal. The pre bronchodilator FVC is 3.31 L, 75% predicted. The pre bronchodilator FEV1 is 1.71 L, 50% predicted. The FEV1: FVC ratio is 52%. The post bronchodilator FVC is 3.44 L, representing a 4% increase. The post bronchodilator FEV1 is 1.79 L, representing a 5% increase. Plethysmography: The total lung capacity is 5.86 L, 86% predicted. The functional residual capacity is 3.47 L, 98% predicted. The residual volume is 2.56 L, 115% predicted. Diffusion capacity: The absolute diffusion capacity is 14.6, 53% predicted. The diffusing capacity corrected for alveolar volume is 3.41, 80% predicted. Impression: There is a moderately severe obstructive abnormality without significant improvement after inhaling a single dose of albuterol. The lung volumes are normal. The absolute diffusing capacity is moderately decreased and normalizes when corrected for alveolar volume. There are no prior studies for comparison Review of Systems Constitutional: Constitutional: Reports no additional constitutional complaints Eyes: Eyes: Reports no additional eye complaints ENT: Reports system reviewed and no additional complaints, except as documented Cardiovascular: Cardiovascular: Reports no additional cardiovascular complaints Respiratory: Respiratory: Reports no additional respiratory complaints Gastrointestinal: Gastrointestinal: Reports no additional gastrointestinal complaints Musculoskeletal: Musculoskeletal: Reports no additional musculoskeletal complaints Neurologic: Reports system reviewed and no additional complaints, except as documented Psychiatric: Psychiatric: Reports no additional psychiatric complaints Endocrine: Endocrine: Reports no additional endocrine complaints Hematologic/Lymphatic: Hematologic/Lymphatic: Reports no additional hematologic/lymphatic complaints Allergic/Immunologic: Allergic/Immunologic: Reports no additional allergic/immunologic complaints [facility] Past Medical History Medical History BMI 26.0-26.9,adult Facial rash Impaired functional mobility, balance, gait, and endurance Facial droop Bowel perforation Crushing injury leg Encounter for Medicare annual wellness exam BMI 24.0-24.9, adult Hypotension Tibial fracture Absence seizure Borderline abnormal TFTs Vitamin B2 deficiency Vitamin B1 deficiency Cognitive changes Tremor Acute nonintractable headache Chronic fatigue Change in vision BMI 22.0-22.9, adult Back pain Cervicalgia BMI 32.0-32.9,adult [place]TE (dyspnea on exertion) BMI 31.0-31.9,adult Encounter for routine adult health examination with abnormal findings BMI 30.0-30.9,adult Hearing loss Myopia BMI 29.0-29.9,adult Encounter for preventive health examination Breast tenderness in male Vitamin D deficiency Squamous cell carcinoma BMI 25.0-25.9,adult Encounter for routine adult health examination with abnormal findings Tobacco abuse Shortness of Breath Hemoptysis DJD (degenerative joint disease) Hematuria GERD (gastroesophageal reflux disease) BMI 27.0-27.9,adult Encounter for routine adult health examination without abnormal findings COPD (chronic obstructive pulmonary disease) Follow up Personal history of nicotine dependence Hematoma Chronic low back pain Ataxia CTS (carpal tunnel syndrome) Vitamin B12 deficiency 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 Iron deficiency anemia Hearing loss of both ears Surgical History Surgical History S/P pneumonectomy Previous back surgery x6 Hx of gastric bypass Family History Family History Father Hypertension Family history of heart disease in male family member before age 55 Family history of cardiovascular disease Mother Hypertension Family history of diabetes mellitus in first degree relative Family history of malignant neoplasm of brain Family history of heart disease in male family member before age 55 Family history of cardiovascular disease Other Diabetes mellitus Social History Social History Smoking packs per day: 1 Smoking cigarettes per day: 20.0 Years smoked: 45 Smoking pack-years: 45.00 Smoking status: Light tobacco smoker Tobacco type: cigarettes Second hand tobacco smoke exposure: No Smoking end date: 02/02/20 Additional smoking assessment comments: smoking less than 1/2 pack currently Alcohol intake: never Substance use: current Substance use type: marijuana Other substance usage details: Gummies Last use: 11/13/24 Do You Feel Safe in your Home?: Yes Lack of Transportation: No Lack of Food: Sometimes True Current Housing: I Have Housing Concerned About Future Housing: YES Difficulty Paying Gas/Electric Bills: YES Difficulty Paying for Meds: No Currently Unemployed: No Education: High School Diploma/GED Difficulty w/ Childcare or Family Care: No Living arrangements: with family Occupation/Education: unemployed Gender identity (if verbalized by the patient): Male Spiritual care concerns: No Meds Home Medications and Allergies Home Medications ?Medication ?Instructions ?Recorded ?Confirmed ?Type lidocaine 5 % topical patch 1 patch topical DAILY 08/17/19 11/14/24 History mv-folic acid 200 mcg-D3 300 1 tablet PO DAILY 08/17/19 11/14/24 History unit-K2 20 qus-kixcekfc-aixs#222 tablet (Stages Men's Multi-Vitamin) omeprazole 20 mg capsule,delayed 20 mg PO BID 08/17/19 11/14/24 History release pregabalin 150 mg capsule (Lyrica) 150 mg PO BID 05/15/20 11/14/24 History ferrous sulfate 325 mg (65 mg 325 mg PO DAILY 01/28/23 11/14/24 History iron) tablet oxycodone 10 mg/0.5 mL oral 10 mg PO Q8H 10/13/23 11/14/24 History syringe (FOR ORAL USE ONLY) tizanidine 4 mg capsule 4 mg PO TID PRN muscle spasticity 10/13/23 11/14/24 Rx #30 caps albuterol sulfate 90 mcg/actuation See Rx Instructions .Route 04/11/24 11/14/24 Rx aerosol inhaler .COMPLEX #8.5 ea aspirin 81 mg tablet,delayed 81 mg PO DAILY 04/26/24 11/14/24 History release (Adult Low Dose Aspirin) vitamin B complex 1 tablet PO DAILY 04/26/24 11/14/24 History midodrine 2.5 mg tablet 2.5 mg PO BID #180 tabs 07/03/24 11/14/24 Rx paroxetine HCl 40 mg tablet See Rx Instructions .Route 07/13/24 11/14/24 Rx .COMPLEX #90 tabs Trelegy Ellipta 100 mcg-62.5 1 inh inhalation DAILY #60 ea 08/02/24 11/14/24 Rx mcg-25 mcg powder for inhalation (ayogqztrnpn-jmhvnwedm-rbasuxhp) bupropion HCl 300 mg 24 hr tablet, See Rx Instructions .Route 09/11/24 11/14/24 Rx extended release .COMPLEX #90 tabs cyanocobalamin (vitamin B-12) See Rx Instructions .Route 09/28/24 11/14/24 Rx 1,000 mcg/mL injection solution .COMPLEX #3 mL syringe with needle 3 mL 25 gauge See Rx Instructions .Route 09/28/24 11/14/24 Rx x 1 (BD Luer-Collin Syringe) .COMPLEX #3 ea lorazepam 0.5 mg tablet 0.5 mg PO BID PRN anxiety #60 tabs 10/23/24 11/14/24 Rx levetiracetam 500 mg 1,000 mg PO QHS 11/14/24 11/14/24 History tablet,extended release 24 hr trazodone 50 mg tablet 100 mg PO QHS 11/14/24 11/14/24 History Allergies Allergy/AdvReac Type Severity Reaction Status Date / Time Penicillins Allergy Unknown Itching Verified 11/13/24 18:51 Vital Signs Vital Signs - 24 hr 11/13/24 18:44 11/13/24 18:49 11/13/24 18:50 Temperature 36.6 C Pulse Rate 71 72 Respiratory Rate 20 Blood Pressure 132/81 Pulse Oximetry 94 94 Oxygen Delivery Room Air Room Air 11/13/24 20:09 11/13/24 21:30 11/13/24 23:00 Temperature Pulse Rate 78 85 79 Respiratory Rate 18 18 18 Blood Pressure 124/76 135/67 117/72 Pulse Oximetry 95 95 96 Oxygen Delivery 11/13/24 23:54 11/14/24 00:28 11/14/24 06:00 Temperature 36.1 C L 36.4 C Pulse Rate 83 66 Respiratory Rate 17 14 Blood Pressure 151/68 H 140/82 Pulse Oximetry 90 92 Oxygen Delivery Room Air 11/14/24 06:45 11/14/24 06:45 11/14/24 06:55 Temperature Pulse Rate 62 62 64 Respiratory Rate 18 18 18 Blood Pressure Pulse Oximetry 94 Oxygen Delivery Room Air Exam Const: General: cooperative, healthy appearing and comfortable Orientation/consciousness: oriented to person, oriented to place and oriented to time HENMT: Head: normal to inspection Ears: hearing grossly normal bilaterally Eyes: General: appearance normal, both eyes and all related structures Neck: Neck: normal visual inspection Chest: Chest palpation & inspection: normal inspection of the chest Resp: Effort & Inspection: normal respiratory effort and able to speak in complete sentences Auscultation: no crackles, no rales, no rhonchi, no wheezes and diminished lung sounds Cardio: Jugular venous distension: no JVD GI: Inspection: normal to inspection GI Palp: No abdominal tenderness Skin: General skin exam: normal color Neuro: General: oriented to person, oriented to place and oriented to time Extrem: General: normal to inspection and no edema Psych: Appearance: grossly normal Results Laboratory Findings 11/13/24 18:58 11/14/24 08:42 ABG, PT/INR, D-dimer: PT/INR, D-dimer PT 14.0 Seconds (11.1-14.7) 11/13/24 18:58 INR 1.1 11/13/24 18:58 D-Dimer 0.83 ug/mL (<0.48) H 11/13/24 18:58 Abnormal lab findings: Abnormal Labs 11/13/24 11/13/24 11/14/24 18:58 20:05 08:42 WBC 11.1 H Hgb 12.6 L Hct 39.6 L MCHC 31.8 L RDW 15.9 H Neut % (Auto) 83.0 H Lymph % (Auto) 8.5 L [place] # (Auto) 0.9 H Absolute Neuts (auto) 9.2 H APTT 40.8 H D-Dimer 0.83 H Sodium 135 L Creatinine 0.66 L Glucose 112 H 152 H Calcium 8.3 L Albumin 3.4 L 3.2 L Influenza A (RT-PCR) Positive A Diagnostic Findings Additional studies: ITS Impressions Chest X-Ray 11/13/24 19:12 IMPRESSION: Small right-sided pleural effusion without focal infiltrate. Chest CTA 11/13/24 21:03
[2024-11-14] MEDS: guaiFENesin 12 HR 600 MG TABCR 1200 MG PO ×2 (11:03→21:14)
--- NOTE | 2024-11-14 12:32 | PM.IMPN ---
Progress Note: A&P Assessment and Plan (1) Influenza A: Code(s): J10.1 - Influenza due to other identified influenza virus with other respiratory manifestations Status: Acute Assessment and Plan: Influenza A positive. Negative for COVID, RSV and Influenza B. Tamiflu 75 mg PO q 12. (2) Postobstructive pneumonia: Code(s): J18.9 - Pneumonia, unspecified organism Status: Acute Assessment and Plan: WBC improved from 11.1> 9.0. CTA chest without PE. Patchy bibasilar ground opacity suspicious for infection as well as left descending bronchus being largely obstructive with postobstructive consolidation noted as well. Continue Azithromycin, Rocephin, and Metronidazole. Duoneb q 6. Guaifenesin 1,200 mg PO q 12. Steroids discontinued. Cornet flutter valve to aid in sputum expectoration. Dr. Mosley commodity buyer consulted. (3) COPD (chronic obstructive pulmonary disease): Qualifiers: COPD type: unspecified COPD Qualified Code(s): J44.9 - Chronic obstructive pulmonary disease, unspecified Code(s): J44.9 - Chronic obstructive pulmonary disease, unspecified Status: Acute Assessment and Plan: Duoneb q6 Continue Azithromycin, Rocephin, and Metronidazole. Guaifenesin 1,200 mg PO q 12. Pulmonology following. Plan Patient wishes to be full code. Home medications restarted as appropriate. 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 Subjective Date/time seen: 11/14/24 12:32 Interval history: Patient reports shortness of breath at times at rest. Patient denies chest pain, palpitations, headache, dizziness, nausea, or vomiting. Review of Systems Review of Systems: All systems reviewed & are unremarkable except as noted in HPI and below Exam Const: General: comfortable and no acute distress Resp: Effort & Inspection: normal respiratory effort Auscultation: diminished lung sounds Cardio: Rate: regular rate Rhythm: regular rhythm GI: GI Palp: Yes Soft to palpation Auscultation: normal bowel sounds Skin: General skin exam: no rashes or lesions noted Neuro: Speech: normal speech Extrem: General: no pedal edema Psych: Mental Status: mental status grossly normal Affect: normal affect Objective Data Vital Signs Vital Signs: Vital Signs - 24 hr 11/13/24 18:44 11/13/24 18:49 11/13/24 18:50 Temperature 97.9 F Pulse Rate 71 72 Respiratory Rate 20 Blood Pressure 132/81 Pulse Oximetry 94 94 Oxygen Delivery Room Air Room Air 11/13/24 20:09 11/13/24 21:30 11/13/24 23:00 Temperature Pulse Rate 78 85 79 Respiratory Rate 18 18 18 Blood Pressure 124/76 135/67 117/72 Pulse Oximetry 95 95 96 Oxygen Delivery 11/13/24 23:54 11/14/24 00:28 11/14/24 06:00 Temperature 97.0 F L 97.6 F Pulse Rate 83 66 Respiratory Rate 17 14 Blood Pressure 151/68 H 140/82 Pulse Oximetry 90 92 Oxygen Delivery Room Air 11/14/24 06:45 11/14/24 06:45 11/14/24 06:55 Temperature Pulse Rate 62 62 64 Respiratory Rate 18 18 18 Blood Pressure Pulse Oximetry 94 Oxygen Delivery Room Air Intake/Output Intake/Output: Intake & Output 11/11/24 11/12/24 11/13/24 11/14/24 23:59 23:59 23:59 23:59 Intake Total 1100 450 Output Total 250 Balance 1100 200 Meds/Results Medications: Active Medications Generic Name Dose Route Start Last Admin Trade Name Freq PRN Reason Stop Dose Admin Acetaminophen 650 mg 11/13/24 21:48 11/14/24 02:51 Acetaminophen 325 Mg Tablet PO 650 mg Q4H PRN Administration Mild Pain (1-3) or Fever Albuterol/Ipratropium 3 ml 11/14/24 02:00 11/14/24 06:45 Ipratropium 0.5 Mg/Albuterol Sulfate 2.5 Mg Ampul.Neb 3 Ml INHALATION 3 ml Q6HRT DANE Administration Bupropion HCl 300 mg 11/14/24 09:00 11/14/24 09:02 Bupropion Hcl Xl (24 Hr) 150 Mg Tabcr BY MOUTH 300 mg DAILY DANE Administration Ferrous Sulfate 325 mg 11/14/24 09:00 11/14/24 09:02 Ferrous Sulfate [address] BY MOUTH 325 mg DAILY DANE Administration Fluticasone/Umeclidinium/Vilanterol 1 puff 11/14/24 08:00 11/14/24 06:45 Fluticasone/Umeclidin/Vilanter 100-62.5-25 Mcg Ellipta INHALATION 1 puff DAILYRT DANE Administration Guaifenesin 1,200 mg 11/14/24 10:35 11/14/24 11:03 Guaifenesin 12 Hr 600 Mg Tabcr PO 1,200 mg Q12HR DANE Administration Ceftriaxone Sodium 1 gm in 50 mls @ 100 mls/hr 11/14/24 23:00 Rocephin 1 Gm/Ns 50 Ml IVPB Q24H DANE Azithromycin 500 mg in 250 mls @ 250 mls/hr 11/15/24 00:00 Zithromax IVPB Q24H DANE Metronidazole 500 mg in 100 mls @ 100 mls/hr 11/14/24 03:00 11/14/24 12:03 Flagyl 500 Mg/Iso Soln 100 Ml IVPB Infused Q8H DANE Infusion Lidocaine 1 patch 11/14/24 09:00 11/14/24 09:03 Lidocaine 5% Patch TOPICAL 1 patch DAILY DANE Administration Lorazepam 0.5 mg 11/13/24 21:34 Lorazepam (*Crx) 0.5 Mg Tablet PO ONCE PRN Agitation Lorazepam 0.5 mg 11/14/24 02:03 Lorazepam (*Crx) 0.5 Mg Tablet PO BID PRN anxiety Midodrine 2.5 mg 11/14/24 09:00 11/14/24 09:03 Midodrine Hcl 2.5 Mg Tablet PO Not Given BID [facility] Miscellaneous Information 0 each 11/14/24 00:01 Lidocaine Patch Add Site Of Use XX 12/14/24 00:00 CLARIFY [facility] Miscellaneous Information 0 each 11/14/24 00:01 Levetiracetam Er 500mg Nonform Can Pt Bring From Home? XX 12/14/24 00:00 [facility]IFY [facility] Non-Formulary Medication 1,000 mg 11/14/24 21:00 Levetiracetam PO 12/14/24 20:59 QHS DANE Oseltamivir Phosphate 75 mg 11/14/24 02:20 11/14/24 02:48 Oseltamivir Phosphate 75 Mg Capsule PO 11/19/24 02:19 75 mg Q12HR DANE Administration Oxycodone HCl 10 mg 11/14/24 10:50 11/14/24 11:03 Oxycodone (*Crx) 5 Mg/5 Ml Oral Soln Ir PO 10 mg Q4HR DANE Administration Pantoprazole Sodium 40 mg 02/11/25 09:00 11/14/24 09:03 Pantoprazole 40 Mg Tablet PO 40 mg Q12HR DANE Administration Paroxetine HCl 40 mg 11/14/24 09:00 11/14/24 09:03 Paroxetine 20 Mg Tablet BY MOUTH 40 mg QAM DANE Administration Pregabalin 150 mg 11/14/24 09:00 11/14/24 09:02 Pregabalin (*Crx) 75 Mg Capsule PO 150 mg BID DANE Administration Tizanidine HCl 4 mg 11/14/24 02:03 Tizanidine Hcl 4 Mg Tablet PO TID PRN muscle spasticity Trazodone HCl 100 mg 11/14/24 21:00 Trazodone Hcl 50 Mg Tablet PO QHS [facility] Radiology Results: ITS Impressions Chest X-Ray 11/13/24 19:12 IMPRESSION: Small right-sided pleural effusion without focal infiltrate. Chest CTA 11/13/24 21:03 IMPRESSION: No pulmonary embolus. No thoracic aortic dissection. Obstruction of the left lower lobe bronchus with postobstructive consolidation for which direct visualization is recommended. Additional findings within the remainder of the left as well as the remaining right lung for which infectious etiology is favored. Labs Labs: Laboratory Results - last 24 hr 11/13/24 11/13/24 11/14/24 18:58 20:05 08:42 WBC 11.1 H 9.0 RBC 4.71 4.75 Hgb 12.6 L 12.6 L Hct 39.6 L 39.8 L MCV 84.1 83.8 MCH 26.8 26.5 MCHC 31.8 L 31.7 L RDW 15.9 H 15.9 H Plt Count 189 185 MPV 10.1 10.5 H Immature Gran % (Auto) 0.2 Not Reportable Neut % (Auto) 83.0 H Not Reportable Lymph % (Auto) 8.5 L Not Reportable Rogers % (Auto) 7.7 Not Reportable Eos % (Auto) 0.3 Not Reportable Baso % (Auto) 0.3 Not Reportable Lymph # (Auto) 0.95 Not Reportable Rogers # (Auto) 0.9 H Not Reportable Eos # (Auto) 0.0 Not Reportable Baso # (Auto) 0.0 Not Reportable Abs Immat Gran (auto) 0.02 Not Reportable Absolute Neuts (auto) 9.2 H Not Reportable Absolute Nucleated RBC 0.000 Not Reportable Nucleated RBC % 0.0 Not Reportable PT 14.0 INR 1.1 APTT 40.8 H D-Dimer 0.83 H Sodium 135 L 143 Potassium 3.5 3.5 Chloride 100 105 Carbon Dioxide 28 27 Anion Gap 7 11 BUN 18 16 Creatinine 0.81 0.66 L Estim Creat Clear Calc 77 93 Estimated GFR > 60 > 60 Glucose 112 H 152 H Calcium 8.3 L 8.4 Magnesium 1.9 2.2 Total Bilirubin 0.8 0.6 AST 20 18 ALT 13 13 Alkaline Phosphatase 96 95 Troponin I < 0.012 Total Protein 7.0 7.0 Albumin 3.4 L 3.2 L Influenza A (RT-PCR) Positive A Influenza B (RT-PCR) Negative RSV (RT-PCR) Negative SARS-CoV-2 RNA (RT-PCR) Negative Quality VTE Prophylaxis VTE prophylaxis: mechanical ordered
[2024-11-14] MEDS: levETIRAcetam 500 MG TABLET PO ×2 (14:32→21:14)
[2024-11-14] MEDS: traZODone HCL 50 MG TABLET 100 MG PO (21:14)
[2024-11-15] VITALS (11 sets, daily range): BP systolic 111–125; BP diastolic 70–96; PULSE 57–104; RESP 17–20; TEMP 35.9–37; O2SAT 90–92
[2024-11-15] MEDS: IPRATROPIUM 0.5 MG/ALBUTEROL SULFATE 2.5 MG AMPUL.NEB 3 ML INHALATION ×3 (02:41→13:30)
[2024-11-15] MEDS: metroNIDAZOLE 500 MG/ISO 100ML 500 MG/100 ML BAG 100 MG IVPB ×3 (03:55→17:59)
[2024-11-15] MEDS: oxyCODONE (*CRX) 5 MG/5 ML ORAL SOLN IR 10 MG PO ×5 (04:54→20:55)
[2024-11-15 07:35] LABS: Basophils Percent Auto 0.1 % (0.2-1.2); Hematocrit 36.7 % (42.0-52.0); Hemoglobin 11.6 g/dL (14.0-18.0); Immature Granulocyte Absolute 0.08 K/mm3 (0.00-0.031); Immature Granulocyte Percent A 0.7 % (0-0.5); Lymphocytes Absolute Auto 0.76 K/mm3 (0.9-3.2); Lymphocytes Percent Auto 6.8 % (18.3-44.2); Mean Corpuscular HGB Conc 31.6 g/dl (32-36); Mean Corpuscular Hemoglobin 26.5 pg (26-34); Mean Corpuscular Volume 83.8 fl (80-100); Mean Platelet Volume 10.5 fl (7.4-10.4); Monocytes Absolute Auto 0.7 K/mm3 (0.1-0.6); Monocytes Percent Auto 5.8 % (2.6-8.5); Neutrophils Absolute Auto 9.8 K/mm3 (1.3-6.7); Neutrophils Percent Auto 86.6 % (45.5-73.1); Platelet Count Result 211 k/mm3 (150-375); Red Blood Count 4.38 M/mm3 (4.6-6.20); Red Cell Distribution Width 15.9 % (11.5-14.5); White Blood Count 11.3 K/mm3 (4.5-10.0)
[2024-11-15 07:46] LABS: Alanine Aminotransferase 11 U/L (6-50); Albumin Level 3.1 g/dL (3.5-5.1); Alkaline Phosphatase 82 U/L (38-126); Anion Gap 7 mmol/L (4-12); Aspartate Amino Transferase 19 U/L (17-59); Bilirubin,Total 0.6 mg/dL (0.2-1.3); Blood Urea Nitrogen 19 mg/dL (9-20); Calcium 8.5 mg/dL (8.4-10.2); Carbon Dioxide 28 mmol/L (22-30); Chloride 108 mmol/L (98-107); Estimated CRCL calculation 79 ml/min; Estimated Glomerular Filt Rate > 60; Glucose 98 mg/dL (65-110); Magnesium 2.2 mg/dL (1.6-2.3); Potassium 3.9 mmol/L (3.4-5.0); Sodium 143 mmol/L (137-145)
[2024-11-15] MEDS: FLUTICASONE/UMECLIDIN/VILANTER 100-62.5-25 MCG ELLIPTA 1 PUFF INHALATION (07:59)
[2024-11-15] MEDS: LIDOCAINE 5% PATCH 1 PATCH TOPICAL (08:05)
[2024-11-15] MEDS: PREGABALIN (*CRX) 75 MG CAPSULE 150 MG PO ×2 (08:07→16:57)
[2024-11-15] MEDS: PANTOPRAZOLE 40 MG TABLET PO ×2 (08:08→20:54)
[2024-11-15] MEDS: buPROPion HCL XL (24 HR) 150 MG TABCR 300 MG BY MOUTH (08:08)
[2024-11-15] MEDS: levETIRAcetam 500 MG TABLET PO ×2 (08:08→20:54)
[2024-11-15] MEDS: guaiFENesin 12 HR 600 MG TABCR 1200 MG PO ×2 (08:08→20:54)
[2024-11-15] MEDS: PARoxetine 20 MG TABLET 40 MG BY MOUTH (08:09)
[2024-11-15] MEDS: OSELTAMIVIR PHOSPHATE 75 MG CAPSULE PO ×2 (08:09→20:54)
--- NOTE | 2024-11-15 09:24 | P.PNPL_ITS ---
Progress Note: A&P Assessment and Plan (1) Influenza A: Code(s): J10.1 - Influenza due to other identified influenza virus with other respiratory manifestations Status: Acute Assessment and Plan: Patient has influenza a pneumonia. Plan: I have discontinued his Solu-Medrol. Patient is on Tamiflu day 1. Will continue For at least 5 days. patient is on room air at this time with with a goal saturation 90-94%. 11/15/24: patient tells me he is much improved. states his breathing is back to normal. His cough is normal. He has no phlegm, hemoptysis. He is afebrile. White blood cell count 11.3. Currently is on room air with saturations 92%. Plan: Patient is improving. continue Tamiflu, day 2. Will follow with you. (2) COPD (chronic obstructive pulmonary disease): Qualifiers: COPD type: unspecified COPD Qualified Code(s): J44.9 - Chronic obstructive pulmonary disease, unspecified Code(s): J44.9 - Chronic obstructive pulmonary disease, unspecified Status: Acute Assessment and Plan: Patient with a 50 pack year tobacco use, currently smoking 1 pack over 3 days. PFTs on 01/20/2021 with a moderately severe obstructive abnormality with an FEV1 of 1.71 L, 50% predicted, ratio 52%, normal lung volumes, moderately decreased DLCO that normalized when corrected for alveolar volume. currently not on supplemental oxygen at home. Eosinophil on 11/13/2024 is 33 per micro L Plan: patient is currently not wheezing any longer and I will discontinue his systemic steroids because he has influenza a infection. I will continue DuoNebs q.6 hours. he is concurrently being treated for community acquired pneumonia with possible post obstruction with ceftriaxone, azithromycin and Flagyl. Will continue for now. 11/15: No evidence of COPD exacerbation. plan: I will discontinue nebulizers and continue his home trelegy 100. Continue guaifenesin 1200 mg p.o. b.i.d.. (3) Postobstructive pneumonia: Code(s): J18.9 - Pneumonia, unspecified organism Status: Acute Assessment and Plan: Patient with a normal CT scan 07/10/2024 and now with multifocal nodular consolidations with influenza pneumonia. Plan: I will continue to treat the patient for influenza pneumonia with Tamiflu and possible bacterial infection with ceftriaxone, azithromycin and Flagyl. Overall I will continue these treatments until the patient is recovered and repeat a CT scan in the future to reassess his infiltrates. I will place the patient on guaifenesin 1200 mg p.o. b.i.d. and had a Cornet flutter valve to aid in sputum expectoration. 11/15: Afebrile. White blood cell count 11.3. Clinically is improving. Plan: Continue treatment for influenza pneumonia with Tamiflu and possible bacterial infection with ceftriaxone day 3, azithromycin day 3 and Flagyl day 2. Will treat patient aggressively for influenza and possible bacterial pneumonia and eventually repeat CT scan in approximately 3-6 weeks. Subjective Date/time seen: 11/15/24 09:24 Interval history: 11/14/2024: This is a new pulmonary consult for influenza and possible post obs tructive pneumonia. 64-year-old with a history of tobacco use, COPD, stage I A lung cancer status post right upper lobectomy on , gastric bypass 2000, GERD. regarding his lung cancer the patient had a right upper lobectomy with leg negative lymph nodes on 01/23/2020. He received no additional treatment. He is followed by Dr. Quinten mccurdy and had a CT scan on 07/10/2024 with emphysema no evidenc e of malignancy with recommendation to repeat in 1 year. Regarding his COPD. Patient smoked tobacco from age 14 to current at 1 pack per day for a total of 50 pack years. He was exposed to secondhand smoke from his father. 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 He did wear respiratory protection when he grinds id. He retired 4-5 years ago. He is not on any home oxygen. He is maintained on trelegy 100 and p.r.n. albuterol. patient tells me he presents with 3 weeks history of cough and phlegm which was brown. Two weeks worth of shortness of breath. Symptoms actually got better until about 3 days ago when his cough and shortness of breath got worse. His phlegm production increased. He presented to the emergency room on 11/13/2024. His blood pressure was 132/ 81, heart rate 71, respirations 20, room air saturations 94%. White blood cell count 11.1, creatinine 0.81, D-dimer 0.83. Influenza a RT PCR positive. Chest x-ray showed left lower lobe consolidation. CT angiogram of the chest showed left lung nodular consolidations throughout. Panlobular emphysema. Left lower lobe was completely consolidated with cutoff of the left lower lobe bronchi. There are no pleural effusions. patient was treated with Tamiflu, ceftriaxone, azithromycin, Solu-Medrol and Flagyl. 11/14/2024. Today the patient states that he is breathing better. He says he is breathing 50% back to his normal. His cough is 50% better and his wheezing is 60% better. Currently the patient is on room air with saturations 92%. 11/15/24: patient tells me he is much improved. states his breathing is back to normal. His cough is normal. He has no phlegm, hemoptysis. He is afebrile. White blood cell count 11.3. Currently is on room air with saturations 92%. 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 Personal history of right-sided lung cancer post right middle lobectomy in 2019 with negative margins. TECHNIQUE: Computed tomographic angiography (CTA) of the chest was performed with 100 mL Omnipaque-350 intravenous contrast. The dose-length product was 399.78 mGy-cm. Maximum intensity projection 3D-reconstructions of the aorta and other arteries were constructed by the technologist on a separate workstation. COMPARISON: 07/10/2024 FINDINGS/OBSERVATIONS: PULMONARY ARTERIES: No filling defect is identified within the main or proximal pulmonary artery. The main pulmonary artery is not enlarged. THORACIC AORTA: No aneurysmal dilatation or dissection is present. The great vessels are intact LUNGS: Patchy groundglass opacification detected bilaterally, possibly infectious in origin. The left descending bronchus is largely obscured for which direct visualization is recommended. Post obstructive consolidation is noted, involving the entirety of the left lower lobe. Panlobular emphysematous disease is also noted. Biapical scarring is present. Postoperative change within the right hilum, consistent with patient's history. MEDIASTINUM: Mediastinal lymphadenopathy is identified within the aortopulmonary window and the left paratracheal region. The largest lymph node is within the left paratracheal region measuring 12 mm in short axis dimension. Multiple calcified lymph nodes are also detected within the mediastinum, suggesting prior granulomatous disease. BONES OF THE CHEST: No acute fracture. No significant degenerative disease. No lytic or blastic lesions. Leads from a stimulator device are identified within the canal. HEART: The heart is borderline enlarged, without pericardial effusion. IMPRESSION: No pulmonary embolus. No thoracic aortic dissection. Obstruction of the left lower lobe bronchus with postobstructive consolidation for which direct visualization is recommended. Additional findings within the remainder of the left as well as the remaining right lung for which infectious etiology is favored. 07/10/24: Clinical Indication: Lung cancer CT Scan of the Chest with Contrast: Technique: Contiguous sections were acquired throughout the chest after intravenous administration of 75 cc of Omnipaque 350. Dose reduction technique was used on this scan by utilizing automated exposure control and iterative reconstruction technique. The dose-length product (DLP) was 178.75 mGy-cm. COMPARISON: 02/06/2022 Findings: There is no evidence of any significant mediastinal, hilar or axillary lymphadenopathy. There is no filling defect in the pulmonary arterial tree to suggest pulmonary embolus. There is no evidence of aortic dissection or aneurysm. There is no evidence of pleural or pericardial effusion. Status post right middle lobectomy. There is biapical scarring, unchanged. Paraseptal emphysema is unchanged, predominantly in the upper lobes. Stable scarring at the inferior right upper lobe. There is left basilar consolidation, presumably atelectasis. Images through the upper abdomen reveal probable prior bariatric surgery. There are mild compression fractures of L1 and L2, age indeterminate. Impression: No evidence of active malignancy or metastatic disease. Status post right middle lobectomy. Emphysema and scarring, as above. Probable left basilar atelectasis versus possibly pneumonia. Compression fractures of L1-L2, age indeterminate, new since prior exam. 06/17/2021 This is a pulmonary function test with pre and post-bronchodilator spirometry, plethysmography and diffusing capacity. The test was performed and results interpreted in accordance with the 2019 and 2005 ATS/ERS Task Force guidelines respectively using the Global Lung Function Initiative-2012 reference equations. Patient demonstrated good effort and cooperation. Reproducibility criteria were met. The quality of the pre bronchodilator spirometry maneuver was Grade A and post bronchodilator spirometry maneuver was Grade A. Findings: Spirometry: there is decreased maximal expiratory airflow at all lung volumes with concave expiratory flow tracing. The contour of the inspiratory flow tracing is normal. The pre bronchodilator FVC is 3.31 L, 75% predicted. The pre bronchodilator FEV1 is 1.71 L, 50% predicted. The FEV1: FVC ratio is 52%. The post bronchodilator FVC is 3.44 L, representing a 4% increase. The post bronchodilator FEV1 is 1.79 L, representing a 5% increase. Plethysmography: The total lung capacity is 5.86 L, 86% predicted. The functional residual capacity is 3.47 L, 98% predicted. The residual volume is 2.56 L, 115% predicted. Diffusion capacity: The absolute diffusion capacity is 14.6, 53% predicted. The diffusing capacity corrected for alveolar volume is 3.41, 80% predicted. Impression: There is a moderately severe obstructive abnormality without significant improvement after inhaling a single dose of albuterol. The lung volumes are normal. The absolute diffusing capacity is moderately decreased and normalizes when corrected for alveolar volume. There are no prior studies for comparison Review of Systems Constitutional: Constitutional: Reports no additional constitutional complaints Eyes: Eyes: Reports no additional eye complaints ENT: Reports system reviewed and no additional complaints, except as documented Cardiovascular: Cardiovascular: Reports no additional cardiovascular complaints Respiratory: Respiratory: Reports no additional respiratory complaints Gastrointestinal: Gastrointestinal: Reports no additional gastrointestinal complaints Musculoskeletal: Musculoskeletal: Reports no additional musculoskeletal complaints Neurologic: Reports system reviewed and no additional complaints, except as documented Psychiatric: Psychiatric: Reports no additional psychiatric complaints Endocrine: Endocrine: Reports no additional endocrine complaints Hematologic/Lymphatic: Hematologic/Lymphatic: Reports no additional hematologic/lymphatic complaints Allergic/Immunologic: Allergic/Immunologic: Reports no additional allergic/immunologic complaints Exam Const: General: cooperative, healthy appearing and comfortable Orientation/consciousness: oriented to person, oriented to place and oriented to time HENMT: Head: normal to inspection Ears: hearing grossly normal bilaterally Eyes: General: appearance normal, both eyes and all related structures Neck: Neck: normal visual inspection Chest: Chest palpation & inspection: normal inspection of the chest Resp: Effort & Inspection: normal respiratory effort and able to speak in complete sentences Auscultation: no crackles, no rales, no rhonchi, no wheezes and diminished lung sounds Cardio: Jugular venous distension: no JVD GI: Inspection: normal to inspection Skin: General skin exam: normal color Neuro: General: oriented to person, oriented to place and oriented to time Extrem: General: normal to inspection and no edema Psych: Appearance: grossly normal Objective Data Vital Signs Vital Signs: Vital Signs - 24 hr 11/14/24 12:45 11/14/24 12:55 11/14/24 14:00 Temperature 36.8 C Pulse Rate 74 73 63 Respiratory Rate 18 20 18 Blood Pressure 134/69 Pulse Oximetry 91 Oxygen Delivery 11/14/24 19:54 11/14/24 19:56 11/14/24 20:00 Temperature Pulse Rate 64 64 Respiratory Rate 20 20 Blood Pressure Pulse Oximetry 91 Oxygen Delivery Room Air 11/14/24 20:00 11/14/24 21:31 11/15/24 02:41 Temperature 36.5 C Pulse Rate 75 57 L Respiratory Rate 18 20 Blood Pressure 101/60 Pulse Oximetry 91 Oxygen Delivery Room Air 11/15/24 06:05 11/15/24 08:00 11/15/24 08:00 Temperature 36.6 C Pulse Rate 74 72 Respiratory Rate 18 20 Blood Pressure 125/70 Pulse Oximetry 92 91 Oxygen Delivery Room Air 11/15/24 08:08 Temperature Pulse Rate 66 Respiratory Rate 20 Blood Pressure Pulse Oximetry Oxygen Delivery Intake/Output Intake/Output: Intake & Output 11/12/24 11/13/24 11/14/24 11/15/24 23:59 23:59 23:59 23:59 Intake Total 1100 1510 740 Output Total 630 2 Balance 1100 880 738 Meds/Results Medications: Active Medications Generic Name Dose Route Start Last Admin Trade Name Freq PRN Reason Stop Dose Admin Acetaminophen 650 mg 11/13/24 21:48 11/14/24 02:51 Acetaminophen 325 Mg Tablet PO 650 mg Q4H PRN Administration Mild Pain (1-3) or Fever Albuterol/Ipratropium 3 ml 11/15/24 09:17 Ipratropium 0.5 Mg/Albuterol Sulfate 2.5 Mg Ampul.Neb 3 Ml INHALATION Q4HRT PRN Wheezing Bupropion HCl 300 mg 11/14/24 09:00 11/15/24 08:08 Bupropion Hcl Xl (24 Hr) 150 Mg Tabcr BY MOUTH 300 mg DAILY DANE Administration Ferrous Sulfate 325 mg 11/14/24 09:00 11/15/24 08:25 Ferrous Sulfate [address] BY MOUTH Not Given DAILY DANE Fluticasone/Umeclidinium/Vilanterol 1 puff 11/14/24 08:00 11/15/24 07:59 Fluticasone/Umeclidin/Vilanter 100-62.5-25 Mcg Ellipta INHALATION 1 puff DAILYRT DANE Administration Guaifenesin 1,200 mg 11/14/24 10:35 11/15/24 08:08 Guaifenesin 12 Hr 600 Mg Tabcr PO 1,200 mg Q12HR DANE Administration Ceftriaxone Sodium 1 gm in 50 mls @ 100 mls/hr 11/14/24 23:00 11/14/24 23:50 Rocephin 1 Gm/Ns 50 Ml IVPB Infused Q24H DANE Infusion Azithromycin 500 mg in 250 mls @ 250 mls/hr 11/15/24 00:00 11/15/24 00:28 Zithromax IVPB Infused Q24H DANE Infusion Metronidazole 500 mg in 100 mls @ 100 mls/hr 11/14/24 03:00 11/15/24 04:55 Flagyl 500 Mg/Iso Soln 100 Ml IVPB Infused Q8H DANE Infusion Levetiracetam 500 mg 11/14/24 13:35 11/15/24 08:08 Levetiracetam 500 Mg Tablet PO 500 mg Q12HR DANE Administration Lidocaine 1 patch 11/14/24 09:00 11/15/24 08:05 Lidocaine 5% Patch TOPICAL 1 patch DAILY DANE Administration Lorazepam 0.5 mg 11/13/24 21:34 Lorazepam (*Crx) 0.5 Mg Tablet PO ONCE PRN Agitation Lorazepam 0.5 mg 11/14/24 02:03 Lorazepam (*Crx) 0.5 Mg Tablet PO BID PRN anxiety Midodrine 2.5 mg 11/14/24 09:00 11/15/24 08:10 Midodrine Hcl 2.5 Mg Tablet PO Not Given BID DANE Oseltamivir Phosphate 75 mg 11/14/24 02:20 11/15/24 08:09 Oseltamivir Phosphate 75 Mg Capsule PO 11/19/24 02:19 75 mg Q12HR DANE Administration Oxycodone HCl 10 mg 11/14/24 10:50 11/15/24 08:06 Oxycodone (*Crx) 5 Mg/5 Ml Oral Soln Ir PO 10 mg Q4HR DANE Administration Pantoprazole Sodium 40 mg 11/14/24 09:00 11/15/24 08:08 Pantoprazole 40 Mg Tablet PO 40 mg Q12HR DANE Administration Paroxetine HCl 40 mg 11/14/24 09:00 11/15/24 08:09 Paroxetine 20 Mg Tablet BY MOUTH 40 mg QAM DANE Administration Pregabalin 150 mg 11/14/24 09:00 11/15/24 08:07 Pregabalin (*Crx) 75 Mg Capsule PO 150 mg BID DANE Administration Tizanidine HCl 4 mg 11/14/24 02:03 Tizanidine Hcl 4 Mg Tablet PO TID PRN muscle spasticity Trazodone HCl 100 mg 11/14/24 21:00 11/14/24 21:14 Trazodone Hcl 50 Mg Tablet PO 100 mg QHS DANE Administration Radiology Results: ITS Impressions Chest CTA 11/13/24 21:03 IMPRESSION: No pulmonary embolus. No thoracic aortic dissection. Obstruction of the left lower lobe bronchus with postobstructive consolidation for which direct visualization is recommended. Additional findings within the remainder of the left as well as the remaining right lung for which infectious etiology is favored. Chest X-Ray 11/15/24 08:54 Impression: 1: Cardiomegaly with interstitial edema. Labs Labs: Laboratory Results - last 24 hr 11/14/24 11/15/24 08:42 06:59 WBC 9.0 11.3 H RBC 4.75 4.38 L Hgb 12.6 L 11.6 L Hct 39.8 L 36.7 L MCV 83.8 83.8 MCH 26.5 26.5 MCHC 31.7 L 31.6 L RDW 15.9 H 15.9 H Plt Count 185 211 MPV 10.5 H 10.5 H Immature Gran % (Auto) Not Reportable 0.7 H Neut % (Auto) Not Reportable 86.6 H Lymph % (Auto) Not Reportable 6.8 L [place] % (Auto) Not Reportable 5.8 Eos % (Auto) Not Reportable 0.0 Baso % (Auto) Not Reportable 0.1 L Lymph # (Auto) Not Reportable 0.76 L [place] # (Auto) Not Reportable 0.7 H Eos # (Auto) Not Reportable 0.0 Baso # (Auto) Not Reportable 0.0 Abs Immat Gran (auto) Not Reportable 0.08 H Absolute Neuts (auto) Not Reportable 9.8 H Absolute Nucleated RBC Not Reportable 0.000 Nucleated RBC % Not Reportable 0.0 Sodium 143 143 Potassium 3.5 3.9 Chloride 105 108 H Carbon Dioxide 27 28 Anion Gap 11 7 BUN 16 19 Creatinine 0.66 L 0.78 Estim Creat Clear Calc 93 79 Estimated GFR > 60 > 60 Glucose 152 H 98 Calcium 8.4 8.5 Magnesium 2.2 2.2 Total Bilirubin 0.6 0.6 AST 18 19 ALT 13 11 Alkaline Phosphatase 95 82 Total Protein 7.0 7.0 Albumin 3.2 L 3.1 L
--- NOTE | 2024-11-15 11:17 | P.PNIM_ITS ---
Progress Note: A&P Assessment and Plan (1) Influenza A: Code(s): J10.1 - Influenza due to other identified influenza virus with other respiratory manifestations Status: Acute Assessment and Plan: * Influenza A positive. * Negative for COVID, RSV and Influenza B. * Tamiflu 75 mg PO q 12. * WBC 11.3. * Sa02 92% RA. (2) Postobstructive pneumonia: Code(s): J18.9 - Pneumonia, unspecified organism Status: Acute Assessment and Plan: * WBC 11.3. * CTA chest without PE. * Patchy bibasilar ground opacity suspicious for infection as well as left descending bronchus being largely obstructive with postobstructive consolidation noted as well. * Continue Azithromycin, Rocephin, and Metronidazole. * Duoneb q 6. * Guaifenesin 1,200 mg PO q 12. * Cornet flutter valve to aid in sputum expectoration. * Dr. Mosley international accountant consulted. * Repeat CT scan in 3-6 weeks. (3) COPD (chronic obstructive pulmonary disease): Qualifiers: COPD type: unspecified COPD Qualified Code(s): J44.9 - Chronic obstructive pulmonary disease, unspecified Code(s): J44.9 - Chronic obstructive pulmonary disease, unspecified Status: Acute Assessment and Plan: * Duoneb q6 * Continue Azithromycin, Rocephin, and Metronidazole. * Guaifenesin 1,200 mg PO q 12. * Pulmonology following. Plan Patient wishes to be full code. Home medications restarted as appropriate. Holding [employer] aspirin for now SCDs. Subjective Date/time seen: 11/15/24 11:17 Interval history: Patient reports feeling better today. Denies pain at present. Patient reports occasional shortness of breath at rest and with activity. Appetite is good. Denies chest pain, palpitations, headache, dizziness, nausea, or vomiting. Review of Systems Review of Systems: All systems reviewed & are unremarkable except as noted in HPI and below Exam Const: General: comfortable and no acute distress Resp: Effort & Inspection: normal respiratory effort Other: slightly diminished. Better air movement. Cardio: Rate: regular rate Rhythm: regular rhythm GI: GI Palp: Yes Soft to palpation Auscultation: normal bowel sounds Neuro: Speech: normal speech Extrem: General: no pedal edema Psych: Mental Status: mental status grossly normal Affect: normal affect Objective Data Vital Signs Vital Signs: Vital Signs - 24 hr 11/14/24 12:45 11/14/24 12:55 11/14/24 14:00 Temperature 98.2 F Pulse Rate 74 73 63 Respiratory Rate 18 20 18 Blood Pressure 134/69 Pulse Oximetry 91 Oxygen Delivery 11/14/24 19:54 11/14/24 19:56 11/14/24 20:00 Temperature Pulse Rate 64 64 Respiratory Rate 20 20 Blood Pressure Pulse Oximetry 91 Oxygen Delivery Room Air 11/14/24 20:00 11/14/24 21:31 11/15/24 02:41 Temperature 97.7 F Pulse Rate 75 57 L Respiratory Rate 18 20 Blood Pressure 101/60 Pulse Oximetry 91 Oxygen Delivery Room Air 11/15/24 06:05 11/15/24 08:00 11/15/24 08:00 Temperature 97.8 F Pulse Rate 74 72 Respiratory Rate 18 20 Blood Pressure 125/70 Pulse Oximetry 92 91 Oxygen Delivery Room Air 11/15/24 08:00 11/15/24 08:08 Temperature Pulse Rate 66 66 Respiratory Rate 20 Blood Pressure Pulse Oximetry 92 Oxygen Delivery Room Air Intake/Output Intake/Output: Intake & Output 11/12/24 11/13/24 11/14/24 11/15/24 23:59 23:59 23:59 23:59 Intake Total 1100 1510 840 Output Total 630 2 Balance 1100 880 838 Meds/Results Medications: Active Medications Generic Name Dose Route Start Last Admin Trade Name Freq PRN Reason Stop Dose Admin Acetaminophen 650 mg 11/13/24 21:48 11/14/24 02:51 Acetaminophen 325 Mg Tablet PO 650 mg Q4H PRN Administration Mild Pain (1-3) or Fever Albuterol/Ipratropium 3 ml 11/15/24 09:17 Ipratropium 0.5 Mg/Albuterol Sulfate 2.5 Mg Ampul.Neb 3 Ml INHALATION Q4HRT PRN Wheezing Bupropion HCl 300 mg 11/14/24 09:00 11/15/24 08:08 Bupropion Hcl Xl (24 Hr) 150 Mg Tabcr BY MOUTH 300 mg DAILY DANE Administration Ferrous Sulfate 325 mg 11/14/24 09:00 11/15/24 08:25 Ferrous Sulfate [address] BY MOUTH Not Given DAILY DANE Fluticasone/Umeclidinium/Vilanterol 1 puff 11/14/24 08:00 11/15/24 07:59 Fluticasone/Umeclidin/Vilanter 100-62.5-25 Mcg Ellipta INHALATION 1 puff DAILYRT DANE Administration Guaifenesin 1,200 mg 11/14/24 10:35 11/15/24 08:08 Guaifenesin 12 Hr 600 Mg Tabcr PO 1,200 mg Q12HR DANE Administration Ceftriaxone Sodium 1 gm in 50 mls @ 100 mls/hr 11/14/24 23:00 11/14/24 23:50 Rocephin 1 Gm/Ns 50 Ml IVPB Infused Q24H DANE Infusion Azithromycin 500 mg in 250 mls @ 250 mls/hr 11/15/24 00:00 11/15/24 00:28 Zithromax IVPB Infused Q24H DANE Infusion Metronidazole 500 mg in 100 mls @ 100 mls/hr 11/14/24 03:00 11/15/24 11:00 Flagyl 500 Mg/Iso Soln 100 Ml IVPB Infused Q8H DANE Infusion Levetiracetam 500 mg 11/14/24 13:35 11/15/24 08:08 Levetiracetam 500 Mg Tablet PO 500 mg Q12HR DANE Administration Lidocaine 1 patch 11/14/24 09:00 11/15/24 08:05 Lidocaine 5% Patch TOPICAL 1 patch DAILY DANE Administration Lorazepam 0.5 mg 11/13/24 21:34 Lorazepam (*Crx) 0.5 Mg Tablet PO ONCE PRN Agitation Lorazepam 0.5 mg 11/14/24 02:03 Lorazepam (*Crx) 0.5 Mg Tablet PO BID PRN anxiety Midodrine 2.5 mg 11/14/24 09:00 11/15/24 08:10 Midodrine Hcl 2.5 Mg Tablet PO Not Given BID DANE Oseltamivir Phosphate 75 mg 11/14/24 02:20 11/15/24 08:09 Oseltamivir Phosphate 75 Mg Capsule PO 11/19/24 02:19 75 mg Q12HR DANE Administration Oxycodone HCl 10 mg 11/14/24 10:50 11/15/24 08:06 Oxycodone (*Crx) 5 Mg/5 Ml Oral Soln Ir PO 10 mg Q4HR DANE Administration Pantoprazole Sodium 40 mg 11/14/24 09:00 11/15/24 08:08 Pantoprazole 40 Mg Tablet PO 40 mg Q12HR DANE Administration Paroxetine HCl 40 mg 11/14/24 09:00 11/15/24 08:09 Paroxetine 20 Mg Tablet BY MOUTH 40 mg QAM DANE Administration Pregabalin 150 mg 11/14/24 09:00 11/15/24 08:07 Pregabalin (*Crx) 75 Mg Capsule PO 150 mg BID DANE Administration Tizanidine HCl 4 mg 11/14/24 02:03 Tizanidine Hcl 4 Mg Tablet PO TID PRN muscle spasticity Trazodone HCl 100 mg 11/14/24 21:00 11/14/24 21:14 Trazodone Hcl 50 Mg Tablet PO 100 mg QHS DANE Administration Radiology Results: ITS Impressions Chest CTA 11/13/24 21:03 IMPRESSION: No pulmonary embolus. No thoracic aortic dissection. Obstruction of the left lower lobe bronchus with postobstructive consolidation for which direct visualization is recommended. Additional findings within the remainder of the left as well as the remaining right lung for which infectious etiology is favored. Chest X-Ray 11/15/24 08:54 Impression: 1: Cardiomegaly with interstitial edema. Labs Labs: Laboratory Results - last 24 hr 11/15/24 06:59 WBC 11.3 H RBC 4.38 L Hgb 11.6 L Hct 36.7 L MCV 83.8 MCH 26.5 MCHC 31.6 L RDW 15.9 H Plt Count 211 MPV 10.5 H Immature Gran % (Auto) 0.7 H Neut % (Auto) 86.6 H Lymph % (Auto) 6.8 L F[place]ardo % (Auto) 5.8 Eos % (Auto) 0.0 Baso % (Auto) 0.1 L Lymph # (Auto) 0.76 L [place]ardo # (Auto) 0.7 H Eos # (Auto) 0.0 Baso # (Auto) 0.0 Abs Immat Gran (auto) 0.08 H Absolute Neuts (auto) 9.8 H Absolute Nucleated RBC 0.000 Nucleated RBC % 0.0 Sodium 143 Potassium 3.9 Chloride 108 H Carbon Dioxide 28 Anion Gap 7 BUN 19 Creatinine 0.78 Estim Creat Clear Calc 79 Estimated GFR > 60 Glucose 98 Calcium 8.5 Magnesium 2.2 Total Bilirubin 0.6 AST 19 ALT 11 Alkaline Phosphatase 82 Total Protein 7.0 Albumin 3.1 L Quality VTE Prophylaxis VTE prophylaxis: mechanical ordered
[2024-11-15] MEDS: traZODone HCL 50 MG TABLET 100 MG PO (20:54)
[2024-11-15] MEDS: AZITHROMYCIN 500 MG/NS 250 ML 500 MG/250 ML BAG 250 MG IVPB (23:00)
[2024-11-16] MEDS: oxyCODONE (*CRX) 5 MG/5 ML ORAL SOLN IR 10 MG PO ×6 (00:52→21:51)
[2024-11-16] MEDS: metroNIDAZOLE 500 MG/ISO 100ML 500 MG/100 ML BAG 100 MG IVPB ×3 (02:34→18:39)
[2024-11-16 06:00] VITALS: BP 145/90; PULSE 84; RESP 17; TEMP 36.8; O2SAT 94
[2024-11-16 06:28] LABS: Basophils Percent Auto 0.1 % (0.2-1.2); Eosinophils Absolute Auto 0.2 K/mm3 (0-0.3); Eosinophils Percent Auto 1.7 % (0-4.4); Hematocrit 36.4 % (42.0-52.0); Hemoglobin 11.5 g/dL (14.0-18.0); Immature Granulocyte Absolute 0.07 K/mm3 (0.00-0.031); Immature Granulocyte Percent A 0.7 % (0-0.5); Lymphocytes Percent Auto 10.2 % (18.3-44.2); Mean Corpuscular HGB Conc 31.6 g/dl (32-36); Mean Corpuscular Hemoglobin 26.3 pg (26-34); Mean Corpuscular Volume 83.3 fl (80-100); Mean Platelet Volume 10.3 fl (7.4-10.4); Monocytes Absolute Auto 0.8 K/mm3 (0.1-0.6); Monocytes Percent Auto 7.9 % (2.6-8.5); Neutrophils Absolute Auto 7.8 K/mm3 (1.3-6.7); Neutrophils Percent Auto 79.4 % (45.5-73.1); Platelet Count Result 231 k/mm3 (150-375); Red Blood Count 4.37 M/mm3 (4.6-6.20); White Blood Count 9.8 K/mm3 (4.5-10.0)
[2024-11-16 06:34] LABS: Alanine Aminotransferase 10 U/L (6-50); Albumin Level 2.7 g/dL (3.5-5.1); Alkaline Phosphatase 82 U/L (38-126); Anion Gap 8 mmol/L (4-12); Aspartate Amino Transferase 19 U/L (17-59); Bilirubin,Total 0.4 mg/dL (0.2-1.3); Blood Urea Nitrogen 16 mg/dL (9-20); Calcium 8.1 mg/dL (8.4-10.2); Carbon Dioxide 28 mmol/L (22-30); Chloride 105 mmol/L (98-107); Estimated CRCL calculation 76 ml/min; Estimated Glomerular Filt Rate > 60; Glucose 78 mg/dL (65-110); Magnesium 1.9 mg/dL (1.6-2.3); Potassium 3.6 mmol/L (3.4-5.0); Sodium 141 mmol/L (137-145)
[2024-11-16] MEDS: FLUTICASONE/UMECLIDIN/VILANTER 100-62.5-25 MCG ELLIPTA 1 PUFF INHALATION (07:35)
[2024-11-16 07:36] VITALS: O2SAT 86
[2024-11-16 07:43] VITALS: O2SAT 90
[2024-11-16] MEDS: PARoxetine 20 MG TABLET 40 MG BY MOUTH (08:48)
[2024-11-16] MEDS: FERROUS SULFATE 325 MG TABLET DR BY MOUTH (08:48)
[2024-11-16] MEDS: MIDODRINE HCL 2.5 MG TABLET PO ×2 (08:48→17:09)
[2024-11-16] MEDS: buPROPion HCL XL (24 HR) 150 MG TABCR 300 MG BY MOUTH (08:48)
[2024-11-16] MEDS: PANTOPRAZOLE 40 MG TABLET PO ×2 (08:48→21:51)
[2024-11-16] MEDS: LIDOCAINE 5% PATCH 1 PATCH TOPICAL (08:48)
[2024-11-16] MEDS: levETIRAcetam 500 MG TABLET PO ×2 (08:48→21:51)
[2024-11-16] MEDS: PREGABALIN (*CRX) 75 MG CAPSULE 150 MG PO ×2 (08:48→17:09)
[2024-11-16] MEDS: OSELTAMIVIR PHOSPHATE 75 MG CAPSULE PO ×2 (08:48→21:51)
[2024-11-16] MEDS: guaiFENesin 12 HR 600 MG TABCR 1200 MG PO ×2 (08:49→21:51)
--- NOTE | 2024-11-16 11:28 | PM.PNPUL ---
Progress Note: A&P Assessment and Plan (1) Influenza A: Code(s): J10.1 - Influenza due to other identified influenza virus with other respiratory manifestations Status: Acute Assessment and Plan: Patient has influenza a pneumonia. Plan: I have discontinued his Solu-Medrol. Patient is on Tamiflu day 1. Will continue For at least 5 days. patient is on room air at this time with with a goal saturation 90-94%. 11/15/24: patient tells me he is much improved. states his breathing is back to normal. His cough is normal. He has no phlegm, hemoptysis. He is afebrile. White blood cell count 11.3. Currently is on room air with saturations 92%. Plan: Patient is improving. continue Tamiflu, day 2. 11/16/24: Patient tells me he is breathing normal and his cough is normal. He is unable to expectorate phlegm. Worsening oxygen requirements and currently on 3 L with saturations 90%. He is afebrile. White blood cell count 9.8, creatinine 0.82. Plan: patient does not feels well as he did yesterday. Continue Tamiflu, day 3. I will check a chest x-ray in the morning. Will follow with you. (2) COPD (chronic obstructive pulmonary disease): Qualifiers: COPD type: unspecified COPD Qualified Code(s): J44.9 - Chronic obstructive pulmonary disease, unspecified Code(s): J44.9 - Chronic obstructive pulmonary disease, unspecified Status: Acute Assessment and Plan: Patient with a 50 pack year tobacco use, currently smoking 1 pack over 3 days. PFTs on 01/20/2021 with a moderately severe obstructive abnormality with an FEV1 of 1.71 L, 50% predicted, ratio 52%, normal lung volumes, moderately decreased DLCO that normalized when corrected for alveolar volume. currently not on supplemental oxygen at home. Eosinophil on 11/13/2024 is 33 per micro L Plan: patient is currently not wheezing any longer and I will discontinue his systemic steroids because he has influenza a infection. I will continue DuoNebs q.6 hours. he is concurrently being treated for community acquired pneumonia with possible post obstruction with ceftriaxone, azithromycin and Flagyl. Will continue for now. 11/15: No evidence of COPD exacerbation. plan: I will discontinue nebulizers and continue his home trelegy 100. Continue guaifenesin 1200 mg p.o. b.i.d.. 11/16: No wheezing. He is more congested with phlegm. Plan: Continue trilogy 100, guaifenesin 1200 mg p.o. b.i.d. will add Cornet flutter valve today (3) Postobstructive pneumonia: Code(s): J18.9 - Pneumonia, unspecified organism Status: Acute Assessment and Plan: Patient with a normal CT scan 07/10/2024 and now with multifocal nodular consolidations with influenza pneumonia. Plan: I will continue to treat the patient for influenza pneumonia with Tamiflu and possible bacterial infection with ceftriaxone, azithromycin and Flagyl. Overall I will continue these treatments until the patient is recovered and repeat a CT scan in the future to reassess his infiltrates. I will place the patient on guaifenesin 1200 mg p.o. b.i.d. and had a Cornet flutter valve to aid in sputum expectoration. 11/15: Afebrile. White blood cell count 11.3. Clinically is improving. Plan: Continue treatment for influenza pneumonia with Tamiflu and possible bacterial infection with ceftriaxone day 3, azithromycin day 3 and Flagyl day 2. Will treat patient aggressively for influenza and possible bacterial pneumonia and eventually repeat CT scan in approximately 3-6 weeks. 11/16/24: afebrile, white blood cell count 9.8. Somewhat worse today. Plan: Continue ceftriaxone day 4, azithromycin day 4 and Flagyl day 3. Repeat chest x-ray in the morning. Subjective Date/time seen: 11/16/24 11:28 Interval history: 11/14/2024: This is a new pulmonary consult for influenza and possible post obstructive pneumonia. 64-year-old with a history of tobacco use, COPD, stage I A lung cancer status post right upper lobectomy on , gastric bypass 2000, GERD. regarding his lung cancer the patient had a right upper lobectomy with leg negative lymph nodes on 01/23/2020. He received no additional treatment. He is followed by Dr. Quinten mccurdy and had a CT scan on 07/10/2024 with emphysema no evidence of malignancy with recommendation to repeat in 1 year. Regarding his COPD. Patient smoked tobacco from age 14 to current at 1 pack per day for a total of 50 pack years. He was exposed to secondhand smoke from his father. 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 He did wear respiratory protection when he grinds id. He retired 4-5 years ago. He is not on any home oxygen. He is maintained on trelegy 100 and p.r.n. albuterol. patient tells me he presents with 3 weeks history of cough and phlegm which was brown. Two weeks worth of shortness of breath. Symptoms actually got better until about 3 days ago when his cough and shortness of breath got worse. His phlegm production increased. He presented to the emergency room on 11/13/2024. His blood pressure was 132/ 81, heart rate 71, respirations 20, room air saturations 94%. White blood cell count 11.1, creatinine 0.81, D-dimer 0.83. Influenza a RT PCR positive. Chest x-ray showed left lower lobe consolidation. CT angiogram of the chest showed left lung nodular consolidations throughout. Panlobular emphysema. Left lower lobe was completely consolidated with cutoff of the left lower lobe bronchi. There are no pleural effusions. patient was treated with Tamiflu, ceftriaxone, azithromycin, Solu-Medrol and Flagyl. 11/14/2024. Today the patient states that he is breathing better. He says he is breathing 50% back to his normal. His cough is 50% better and his wheezing is 60% better. Currently the patient is on room air with saturations 92%. 11/15/24: patient tells me he is much improved. states his breathing is back to normal. His cough is normal. He has no phlegm, hemoptysis. He is afebrile. White blood cell count 11.3. Currently is on room air with saturations 92%. 11/16/24: Patient tells me he is breathing normal and his cough is normal. He is unable to expectorate phlegm. Worsening oxygen requirements and currently on 3 L with saturations 90%. He is afebrile. White blood cell count 9.8, creatinine 0.82. DATA: EXAMINATION: CTA chest PE protocol DATE: 11/13/2024 21:03 QUALITY ASSURANCE LEAD INDICATION: Elevated d-dimer with shortness of breath. Personal history of right-sided lung cancer post right middle lobectomy in 2020 with negative margins. TECHNIQUE: Computed tomographic angiography (CTA) of the chest was performed with 100 mL Omnipaque-350 intravenous contrast. The dose-length product was 399.78 mGy-cm. Maximum intensity projection 3D-reconstructions of the aorta and other arteries were constructed by the technologist on a separate workstation. COMPARISON: 07/10/2024 FINDINGS/OBSERVATIONS: PULMONARY ARTERIES: No filling defect is identified within the main or proximal pulmonary artery. The main pulmonary artery is not enlarged. THORACIC AORTA: No aneurysmal dilatation or dissection is present. The great vessels are intact LUNGS: Patchy groundglass opacification detected bilaterally, possibly infectious in origin. The left descending bronchus is largely obscured for which direct visualization is recommended. Post obstructive consolidation is noted, involving the entirety of the left lower lobe. Panlobular emphysematous disease is also noted. Biapical scarring is present. Postoperative change within the right hilum, consistent with patient's history. MEDIASTINUM: Mediastinal lymphadenopathy is identified within the aortopulmonary window and the left paratracheal region. The largest lymph node is within the left paratracheal region measuring 12 mm in short axis dimension. Multiple calcified lymph nodes are also detected within the mediastinum, suggesting prior granulomatous disease. BONES OF THE CHEST: No acute fracture. No significant degenerative disease. No lytic or blastic lesions. Leads from a stimulator device are identified within the canal. HEART: The heart is borderline enlarged, without pericardial effusion. IMPRESSION: No pulmonary embolus. No thoracic aortic dissection. Obstruction of the left lower lobe bronchus with postobstructive consolidation for which direct visualization is recommended. Additional findings within the remainder of the left as well as the remaining right lung for which infectious etiology is favored. 07/10/24: Clinical Indication: Lung cancer CT Scan of the Chest with Contrast: Technique: Contiguous sections were acquired throughout the chest after intravenous administration of 75 cc of Omnipaque 350. Dose reduction technique was used on this scan by utilizing automated exposure control and iterative reconstruction technique. The dose-length product (DLP) was 178.75 mGy-cm. COMPARISON: 02/06/2022 Findings: There is no evidence of any significant mediastinal, hilar or axillary lymphadenopathy. There is no filling defect in the pulmonary arterial tree to suggest pulmonary embolus. There is no evidence of aortic dissection or aneurysm. There is no evidence of pleural or pericardial effusion. Status post right middle lobectomy. There is biapical scarring, unchanged. Paraseptal emphysema is unchanged, predominantly in the upper lobes. Stable scarring at the inferior right upper lobe. There is left basilar consolidation, presumably atelectasis. Images through the upper abdomen reveal probable prior bariatric surgery. There are mild compression fractures of L1 and L2, age indeterminate. Impression: No evidence of active malignancy or metastatic disease. Status post right middle lobectomy. Emphysema and scarring, as above. Probable left basilar atelectasis versus possibly pneumonia. Compression fractures of L1-L2, age indeterminate, new since prior exam. 06/17/2021 This is a pulmonary function test with pre and post-bronchodilator spirometry, plethysmography and diffusing capacity. The test was performed and results interpreted in accordance with the 2019 and 2005 ATS/ERS Task Force guidelines respectively using the Global Lung Function Initiative-2012 reference equations. Patient demonstrated good effort and cooperation. Reproducibility criteria were met. The quality of the pre bronchodilator spirometry maneuver was Grade A and post bronchodilator spirometry maneuver was Grade A. Findings: Spirometry: there is decreased maximal expiratory airflow at all lung volumes with concave expiratory flow tracing. The contour of the inspiratory flow tracing is normal. The pre bronchodilator FVC is 3.31 L, 75% predicted. The pre bronchodilator FEV1 is 1.71 L, 50% predicted. The FEV1: FVC ratio is 52%. The post bronchodilator FVC is 3.44 L, representing a 4% increase. The post bronchodilator FEV1 is 1.79 L, representing a 5% increase. Plethysmography: The total lung capacity is 5.86 L, 86% predicted. The functional residual capacity is 3.47 L, 98% predicted. The residual volume is 2.56 L, 115% predicted. Diffusion capacity: The absolute diffusion capacity is 14.6, 53% predicted. The diffusing capacity corrected for alveolar volume is 3.41, 80% predicted. Impression: There is a moderately severe obstructive abnormality without significant improvement after inhaling a single dose of albuterol. The lung volumes are normal. The absolute diffusing capacity is moderately decreased and normalizes when corrected for alveolar volume. There are no prior studies for comparison Review of Systems Constitutional: Constitutional: Reports no additional constitutional complaints Eyes: Eyes: Reports no additional eye complaints ENT: Reports system reviewed and no additional complaints, except as documented Cardiovascular: Cardiovascular: Reports no additional cardiovascular complaints Respiratory: Respiratory: Reports no additional respiratory complaints Gastrointestinal: Gastrointestinal: Reports no additional gastrointestinal complaints Musculoskeletal: Musculoskeletal: Reports no additional musculoskeletal complaints Neurologic: Reports system reviewed and no additional complaints, except as documented Psychiatric: Psychiatric: Reports no additional psychiatric complaints Endocrine: Endocrine: Reports no additional endocrine complaints Hematologic/Lymphatic: Hematologic/Lymphatic: Reports no additional hematologic/lymphatic complaints Allergic/Immunologic: Allergic/Immunologic: Reports no additional allergic/immunologic complaints Exam Const: General: cooperative, healthy appearing and comfortable Orientation/consciousness: oriented to person, oriented to place and oriented to time HENMT: Head: normal to inspection Ears: hearing grossly normal bilaterally Eyes: General: appearance normal, both eyes and all related structures Neck: Neck: normal visual inspection Chest: Chest palpation & inspection: normal inspection of the chest Resp: Effort & Inspection: normal respiratory effort and able to speak in complete sentences Auscultation: no crackles, no rales, rhonchi, no wheezes and diminished lung sounds Other: Coarse rhonchi Cardio: Jugular venous distension: no JVD GI: Inspection: normal to inspection Skin: General skin exam: normal color Neuro: General: oriented to person, oriented to place and oriented to time Extrem: General: normal to inspection and no edema Psych: Appearance: grossly normal Objective Data Vital Signs Vital Signs: Vital Signs - 24 hr 11/15/24 13:30 11/15/24 13:30 11/15/24 13:41 Temperature Pulse Rate 91 86 Respiratory Rate 20 20 Blood Pressure Pulse Oximetry 92 Oxygen Delivery Nasal Cannula Oxygen Flow Rate 2 11/15/24 14:00 11/15/24 14:27 11/15/24 15:32 Temperature 35.9 C L Pulse Rate 104 H Respiratory Rate 18 Blood Pressure 121/96 H Pulse Oximetry 91 90 92 Oxygen Delivery Nasal Cannula Nasal Cannula Oxygen Flow Rate 2 1 11/15/24 20:54 11/15/24 22:21 11/16/24 06:00 Temperature 37.0 C 36.8 C Pulse Rate 75 84 Respiratory Rate 17 17 Blood Pressure 111/70 145/90 H Pulse Oximetry 91 91 94 Oxygen Delivery Nasal Cannula Oxygen Flow Rate 1 11/16/24 07:36 11/16/24 07:43 Temperature Pulse Rate Respiratory Rate Blood Pressure Pulse Oximetry 86 L 90 Oxygen Delivery Nasal Cannula Nasal Cannula Oxygen Flow Rate 0.5 2.5 Intake/Output Intake/Output: Intake & Output 11/13/24 11/14/24 11/15/24 11/16/24 23:59 23:59 23:59 23:59 Intake Total 1100 1510 1230 1686 Output Total 630 2 425 Balance 0023 216 1355 1261 Meds/Results Medications: Active Medications Generic Name Dose Route Start Last Admin Trade Name Freq PRN Reason Stop Dose Admin Acetaminophen 650 mg 11/13/24 21:48 11/14/24 02:51 Acetaminophen 325 Mg Tablet PO 650 mg Q4H PRN Administration Mild Pain (1-3) or Fever Albuterol/Ipratropium 3 ml 11/15/24 09:17 11/15/24 13:30 Ipratropium 0.5 Mg/Albuterol Sulfate 2.5 Mg Ampul.Neb 3 Ml INHALATION 3 ml Q4HRT PRN Administration Wheezing Bupropion HCl 300 mg 11/14/24 09:00 11/16/24 08:48 Bupropion Hcl Xl (24 Hr) 150 Mg Tabcr BY MOUTH 300 mg DAILY DANE Administration Ferrous Sulfate 325 mg 11/14/24 09:00 11/16/24 08:48 Ferrous Sulfate [address] BY MOUTH 325 mg DAILY DANE Administration Fluticasone/Umeclidinium/Vilanterol 1 puff 11/14/24 08:00 11/16/24 07:35 Fluticasone/Umeclidin/Vilanter 100-62.5-25 Mcg Ellipta INHALATION 1 puff DAILYRT DANE Administration Guaifenesin 1,200 mg 11/14/24 10:35 11/16/24 08:49 Guaifenesin 12 Hr 600 Mg Tabcr PO 1,200 mg Q12HR DANE Administration Ceftriaxone Sodium 1 gm in 50 mls @ 100 mls/hr 11/14/24 23:00 11/15/24 22:58 Rocephin 1 Gm/Ns 50 Ml IVPB Infused Q24H DANE Infusion Azithromycin 500 mg in 250 mls @ 250 mls/hr 11/15/24 00:00 11/16/24 00:00 Zithromax IVPB Infused Q24H DANE Infusion Metronidazole 500 mg in 100 mls @ 100 mls/hr 11/14/24 03:00 11/16/24 03:34 Flagyl 500 Mg/Iso Soln 100 Ml IVPB Infused Q8H DANE Infusion Levetiracetam 500 mg 11/14/24 13:35 11/16/24 08:48 Levetiracetam 500 Mg Tablet PO 500 mg Q12HR DANE Administration Lidocaine 1 patch 11/14/24 09:00 11/16/24 08:48 Lidocaine 5% Patch TOPICAL 1 patch DAILY DANE Administration Lorazepam 0.5 mg 11/13/24 21:34 Lorazepam (*Crx) 0.5 Mg Tablet PO ONCE PRN Agitation Lorazepam 0.5 mg 11/14/24 02:03 Lorazepam (*Crx) 0.5 Mg Tablet PO BID PRN anxiety Midodrine 2.5 mg 11/14/24 09:00 11/16/24 08:48 Midodrine Hcl 2.5 Mg Tablet PO 2.5 mg BID DANE Administration Oseltamivir Phosphate 75 mg 11/14/24 02:20 11/16/24 08:48 Oseltamivir Phosphate 75 Mg Capsule PO 11/19/24 02:19 75 mg Q12HR DANE Administration Oxycodone HCl 10 mg 11/14/24 10:50 11/16/24 08:48 Oxycodone (*Crx) 5 Mg/5 Ml Oral Soln Ir PO 10 mg Q4HR DANE Administration Pantoprazole Sodium 40 mg 11/14/24 09:00 11/16/24 08:48 Pantoprazole 40 Mg Tablet PO 40 mg Q12HR DANE Administration Paroxetine HCl 40 mg 11/14/24 09:00 11/16/24 08:48 Paroxetine 20 Mg Tablet BY MOUTH 40 mg QAM DANE Administration Pregabalin 150 mg 11/14/24 09:00 11/16/24 08:48 Pregabalin (*Crx) 75 Mg Capsule PO 150 mg BID DANE Administration Tizanidine HCl 4 mg 11/14/24 02:03 Tizanidine Hcl 4 Mg Tablet PO TID PRN muscle spasticity Trazodone HCl 100 mg 11/14/24 21:00 11/15/24 20:54 Trazodone Hcl 50 Mg Tablet PO 100 mg QHS DANE Administration Radiology Results: ITS Impressions Chest CTA 11/13/24 21:03 IMPRESSION: No pulmonary embolus. No thoracic aortic dissection. Obstruction of the left lower lobe bronchus with postobstructive consolidation for which direct visualization is recommended. Additional findings within the remainder of the left as well as the remaining right lung for which infectious etiology is favored. Chest X-Ray 11/15/24 08:54 Impression: 1: Cardiomegaly with interstitial edema. Labs Labs: Laboratory Results - last 24 hr 11/16/24 05:36 WBC 9.8 RBC 4.37 L Hgb 11.5 L Hct 36.4 L MCV 83.3 MCH 26.3 MCHC 31.6 L RDW 16.0 H Plt Count 231 MPV 10.3 Immature Gran % (Auto) 0.7 H Neut % (Auto) 79.4 H Lymph % (Auto) 10.2 L [place] % (Auto) 7.9 Eos % (Auto) 1.7 Baso % (Auto) 0.1 L Lymph # (Auto) 1.00 [place] # (Auto) 0.8 H Eos # (Auto) 0.2 Baso # (Auto) 0.0 Abs Immat Gran (auto) 0.07 H Absolute Neuts (auto) 7.8 H Absolute Nucleated RBC 0.000 Nucleated RBC % 0.0 Sodium 141 Potassium 3.6 Chloride 105 Carbon Dioxide 28 Anion Gap 8 BUN 16 Creatinine 0.82 Estim Creat Clear Calc 76 Estimated GFR > 60 Glucose 78 Calcium 8.1 L Magnesium 1.9 Total Bilirubin 0.4 AST 19 ALT 10 Alkaline Phosphatase 82 Total Protein 6.0 L Albumin 2.7 L
--- NOTE | 2024-11-16 12:16 | P.PNIM_ITS ---
Progress Note: A&P Assessment and Plan (1) Influenza A: Code(s): J10.1 - Influenza due to other identified influenza virus with other respiratory manifestations Status: Acute Assessment and Plan: * Influenza A positive. * Negative for COVID, RSV and Influenza B. * Tamiflu 75 mg PO q 12. * WBC 9.8. * Sa02 90% 2.5 liters nasal cannula. (2) Postobstructive pneumonia: Code(s): J18.9 - Pneumonia, unspecified organism Status: Acute Assessment and Plan: * WBC 9.8. * CTA chest without PE. * Patchy bibasilar ground opacity suspicious for infection as well as left descending bronchus being largely obstructive with postobstructive consolidation noted as well. * Continue Azithromycin, Rocephin, and Metronidazole. * Duoneb q 6. * Guaifenesin 1,200 mg PO q 12. * Cornet flutter valve to aid in sputum expectoration. * Dr. Mosley Fire Observer following, appreciate recommendations. * Repeat CT scan in 3-6 weeks. * Repeat Chest X-ray in the morning. (3) COPD (chronic obstructive pulmonary disease): Qualifiers: COPD type: unspecified COPD Qualified Code(s): J44.9 - Chronic obstructive pulmonary disease, unspecified Code(s): J44.9 - Chronic obstructive pulmonary disease, unspecified Status: Acute Assessment and Plan: * Duoneb q6 * Continue Azithromycin, Rocephin, and Metronidazole. * Guaifenesin 1,200 mg PO q 12. * Pulmonology following, appreciate recommendations. * Repeat Chest X-ray in the morning. Plan Patient wishes to be full code. Home medications restarted as appropriate. Holding BLEACHER PULP aspirin for now SCDs. Subjective Date/time seen: 11/16/24 12:16 Interval history: Patient reports that he was having trouble keeping up his oxygen this morning. Patient is currently on 3 liters nasal cannula. Patient denies any chest pain, palpitations, shortness of breath at present at rest, headache, or dizziness. Patient reports pain in his lower back that is a 5 and travels down his left leg, pain is constant, and aching. Review of Systems Review of Systems: All systems reviewed & are unremarkable except as noted in HPI and below Exam Const: General: no acute distress and uncomfortable Resp: Effort & Inspection: normal respiratory effort Auscultation: rhonchi Cardio: Rate: regular rate Rhythm: regular rhythm GI: GI Palp: Yes Soft to palpation Auscultation: normal bowel sounds Skin: General skin exam: rashes and/or lesions noted Neuro: Speech: normal speech Extrem: General: no pedal edema Psych: Mental Status: mental status grossly normal Affect: normal affect Objective Data Vital Signs Vital Signs: Vital Signs - 24 hr 11/15/24 13:30 11/15/24 13:30 11/15/24 13:41 Temperature Pulse Rate 91 86 Respiratory Rate 20 20 Blood Pressure Pulse Oximetry 92 Oxygen Delivery Nasal Cannula Oxygen Flow Rate 2 11/15/24 14:00 11/15/24 14:27 11/15/24 15:32 Temperature 96.7 F L Pulse Rate 104 H Respiratory Rate 18 Blood Pressure 121/96 H Pulse Oximetry 91 90 92 Oxygen Delivery Nasal Cannula Nasal Cannula Oxygen Flow Rate 2 1 11/15/24 20:54 11/15/24 22:21 11/16/24 06:00 Temperature 98.6 F 98.3 F Pulse Rate 75 84 Respiratory Rate 17 17 Blood Pressure 111/70 145/90 H Pulse Oximetry 91 91 94 Oxygen Delivery Nasal Cannula Oxygen Flow Rate 1 11/16/24 07:36 11/16/24 07:43 Temperature Pulse Rate Respiratory Rate Blood Pressure Pulse Oximetry 86 L 90 Oxygen Delivery Nasal Cannula Nasal Cannula Oxygen Flow Rate 0.5 2.5 Intake/Output Intake/Output: Intake & Output 11/13/24 11/14/24 11/15/24 11/16/24 23:59 23:59 23:59 23:59 Intake Total 1100 1510 1230 1686 Output Total 630 2 425 Balance 6931 860 6919 1261 Meds/Results Medications: Active Medications Generic Name Dose Route Start Last Admin Trade Name Freq PRN Reason Stop Dose Admin Acetaminophen 650 mg 11/13/24 21:48 11/14/24 02:51 Acetaminophen 325 Mg Tablet PO 650 mg Q4H PRN Administration Mild Pain (1-3) or Fever Albuterol/Ipratropium 3 ml 11/15/24 09:17 11/15/24 13:30 Ipratropium 0.5 Mg/Albuterol Sulfate 2.5 Mg Ampul.Neb 3 Ml INHALATION 3 ml Q4HRT PRN Administration Wheezing Bupropion HCl 300 mg 11/14/24 09:00 11/16/24 08:48 Bupropion Hcl Xl (24 Hr) 150 Mg Tabcr BY MOUTH 300 mg DAILY DANE Administration Ferrous Sulfate 325 mg 11/14/24 09:00 11/16/24 08:48 Ferrous Sulfate [address] BY MOUTH 325 mg DAILY DANE Administration Fluticasone/Umeclidinium/Vilanterol 1 puff 11/14/24 08:00 11/16/24 07:35 Fluticasone/Umeclidin/Vilanter 100-62.5-25 Mcg Ellipta INHALATION 1 puff DAILYRT DANE Administration Guaifenesin 1,200 mg 11/14/24 10:35 11/16/24 08:49 Guaifenesin 12 Hr 600 Mg Tabcr PO 1,200 mg Q12HR DANE Administration Ceftriaxone Sodium 1 gm in 50 mls @ 100 mls/hr 11/14/24 23:00 11/15/24 22:58 Rocephin 1 Gm/Ns 50 Ml IVPB Infused Q24H DANE Infusion Azithromycin 500 mg in 250 mls @ 250 mls/hr 11/15/24 00:00 11/16/24 00:00 Zithromax IVPB Infused Q24H DANE Infusion Metronidazole 500 mg in 100 mls @ 100 mls/hr 11/14/24 03:00 11/16/24 03:34 Flagyl 500 Mg/Iso Soln 100 Ml IVPB Infused Q8H DANE Infusion Levetiracetam 500 mg 11/14/24 13:35 11/16/24 08:48 Levetiracetam 500 Mg Tablet PO 500 mg Q12HR DANE Administration Lidocaine 1 patch 11/14/24 09:00 11/16/24 08:48 Lidocaine 5% Patch TOPICAL 1 patch DAILY DANE Administration Lorazepam 0.5 mg 11/13/24 21:34 Lorazepam (*Crx) 0.5 Mg Tablet PO ONCE PRN Agitation Lorazepam 0.5 mg 11/14/24 02:03 Lorazepam (*Crx) 0.5 Mg Tablet PO BID PRN anxiety Midodrine 2.5 mg 11/14/24 09:00 11/16/24 08:48 Midodrine Hcl 2.5 Mg Tablet PO 2.5 mg BID DANE Administration Oseltamivir Phosphate 75 mg 11/14/24 02:20 11/16/24 08:48 Oseltamivir Phosphate 75 Mg Capsule PO 11/19/24 02:19 75 mg Q12HR DANE Administration Oxycodone HCl 10 mg 11/14/24 10:50 11/16/24 08:48 Oxycodone (*Crx) 5 Mg/5 Ml Oral Soln Ir PO 10 mg Q4HR DANE Administration Pantoprazole Sodium 40 mg 11/14/24 09:00 11/16/24 08:48 Pantoprazole 40 Mg Tablet PO 40 mg Q12HR DANE Administration Paroxetine HCl 40 mg 11/14/24 09:00 11/16/24 08:48 Paroxetine 20 Mg Tablet BY MOUTH 40 mg QAM DANE Administration Pregabalin 150 mg 11/14/24 09:00 11/16/24 08:48 Pregabalin (*Crx) 75 Mg Capsule PO 150 mg BID DANE Administration Tizanidine HCl 4 mg 11/14/24 02:03 Tizanidine Hcl 4 Mg Tablet PO TID PRN muscle spasticity Trazodone HCl 100 mg 11/14/24 21:00 11/15/24 20:54 Trazodone Hcl 50 Mg Tablet PO 100 mg QHS DANE Administration Radiology Results: ITS Impressions Chest CTA 11/13/24 21:03 IMPRESSION: No pulmonary embolus. No thoracic aortic dissection. Obstruction of the left lower lobe bronchus with postobstructive consolidation for which direct visualization is recommended. Additional findings within the remainder of the left as well as the remaining right lung for which infectious etiology is favored. Chest X-Ray 11/15/24 08:54 Impression: 1: Cardiomegaly with interstitial edema. Labs Labs: Laboratory Results - last 24 hr 11/16/24 05:36 WBC 9.8 RBC 4.37 L Hgb 11.5 L Hct 36.4 L MCV 83.3 MCH 26.3 MCHC 31.6 L RDW 16.0 H Plt Count 231 MPV 10.3 Immature Gran % (Auto) 0.7 H Neut % (Auto) 79.4 H Lymph % (Auto) 10.2 L [place] % (Auto) 7.9 Eos % (Auto) 1.7 Baso % (Auto) 0.1 L Lymph # (Auto) 1.00 [place] # (Auto) 0.8 H Eos # (Auto) 0.2 Baso # (Auto) 0.0 Abs Immat Gran (auto) 0.07 H Absolute Neuts (auto) 7.8 H Absolute Nucleated RBC 0.000 Nucleated RBC % 0.0 Sodium 141 Potassium 3.6 Chloride 105 Carbon Dioxide 28 Anion Gap 8 BUN 16 Creatinine 0.82 Estim Creat Clear Calc 76 Estimated GFR > 60 Glucose 78 Calcium 8.1 L Magnesium 1.9 Total Bilirubin 0.4 AST 19 ALT 10 Alkaline Phosphatase 82 Total Protein 6.0 L Albumin 2.7 L Quality VTE Prophylaxis VTE prophylaxis: mechanical ordered
[2024-11-16 14:00] VITALS: BP 122/81; PULSE 73; RESP 20; TEMP 36.7; O2SAT 94
[2024-11-16 20:00] VITALS: O2SAT 92
[2024-11-16 20:20] VITALS: BP 99/58; PULSE 81; RESP 20; TEMP 36.8; O2SAT 92
[2024-11-16] MEDS: traZODone HCL 50 MG TABLET 100 MG PO (21:51)
[2024-11-17] VITALS (29 sets, daily range): BP systolic 107–134; BP diastolic 67–78; PULSE 74–92; RESP 20–24; TEMP 36.3–36.9; O2SAT 83–98
[2024-11-17] MEDS: AZITHROMYCIN 500 MG/NS 250 ML 500 MG/250 ML BAG 250 MG IVPB (00:02)
[2024-11-17] MEDS: oxyCODONE (*CRX) 5 MG/5 ML ORAL SOLN IR 10 MG PO ×5 (01:05→21:57)
[2024-11-17] MEDS: metroNIDAZOLE 500 MG/ISO 100ML 500 MG/100 ML BAG 100 MG IVPB ×3 (03:55→18:01)
[2024-11-17 05:24] LABS: Alveolar/Arterial O2 Gradient 585.8 mmHg; Base Excess ABG 1.9 mEq/l (+/-2.0); Fractional Inspired Oxygen 100 %; HCO3 ABG 28.5 mEq/l (22.0-26.0); Oxygen Content ABG 17.7 %vol (16.0-22.0); Oxygen Saturation ABG 94.1 % (95.0-100.0); Oxyhemoglobin 92.9 % THb (90.0-100.0); PCO2 ABG 52.7 mmHg (35.0-45.0); PO2 ABG 74.5 mmHg (80.0-100.0); PO2 FiO2 Ratio Arterial Blood 0.75 %; Total Hemoglobin 13.5 g/dL (12.0-18.0); pH ABG 7.351 (7.350-7.450)
[2024-11-17 05:26] LABS: Device NON-REBREATHER MASK; Modified Allen's Test Pass; Site Drawn LEFT RADIAL
[2024-11-17 05:33] LABS: Basophils Percent Auto 0.3 % (0.2-1.2); Eosinophils Absolute Auto 0.3 K/mm3 (0-0.3); Eosinophils Percent Auto 2.7 % (0-4.4); Hematocrit 42.8 % (42.0-52.0); Hemoglobin 13.3 g/dL (14.0-18.0); Immature Granulocyte Absolute 0.12 K/mm3 (0.00-0.031); Lymphocytes Absolute Auto 1.09 K/mm3 (0.9-3.2); Lymphocytes Percent Auto 9.4 % (18.3-44.2); Mean Corpuscular HGB Conc 31.1 g/dl (32-36); Mean Corpuscular Hemoglobin 26.4 pg (26-34); Mean Corpuscular Volume 85.1 fl (80-100); Mean Platelet Volume 9.8 fl (7.4-10.4); Monocytes Absolute Auto 0.8 K/mm3 (0.1-0.6); Monocytes Percent Auto 6.9 % (2.6-8.5); Neutrophils Absolute Auto 9.2 K/mm3 (1.3-6.7); Neutrophils Percent Auto 79.7 % (45.5-73.1); Platelet Count Result 242 k/mm3 (150-375); Red Blood Count 5.03 M/mm3 (4.6-6.20); Red Cell Distribution Width 16.1 % (11.5-14.5); White Blood Count 11.6 K/mm3 (4.5-10.0)
[2024-11-17] MEDS: IPRATROPIUM 0.5 MG/ALBUTEROL SULFATE 2.5 MG AMPUL.NEB 3 ML INHALATION ×5 (05:35→21:25)
--- NOTE | 2024-11-17 05:38 | P.PNCROSS_ITS ---
Event Note Event Note Event Note: Notified by nurse the patient was tachypneic and desaturating even after increa sing his nasal cannula from 2-6 L. he was placed on 10 L and saturating in the mid 80s. We set the patient up in bed perform some deep coughs he was able to expectorate. He has grossly audible mucus congestion and on lung auscultation has wet crackles greater at the bases and prominent rhonchi greater in the right lung. Chest x-ray official read pending however he appears to have significant hazy opacities in the entire right lung field which is worse than admission. Also has interstitial edema and cephalization. Giving Lasix 40 mg IV x1. Nursing documentation he is positive 5 L net since admission. Check BNP as well. Latest 2D echocardiogram in May 2024 demonstrating grade 1 diastolic dysfunction. Consider repeat echocardiogram. For now, keep azithromycin and change ceftriaxone to vancomycin and cefepime. Check MRSA nares. Encouraged to use the Acapella valve. Continue guaifenesin. Ordered chest physiotherapy with oscillator vest q.i.d.. Ordered DuoNeb stat x1. ABG demonstrates compensated hypercapnia. He was also placed on a non-rebreather mask and had improvement in his breathing. Advise nursing team to attempt placing a high-flow nasal cannula after DuoNeb if he tolerates. Check full viral respiratory panel. Consider hydrocortisone therapy for severe pneumonia however he does have influenza A so will leave this decision up to the day team and library information technician.
[2024-11-17 05:41] LABS: Alanine Aminotransferase 11 U/L (6-50); Albumin Level 3.1 g/dL (3.5-5.1); Alkaline Phosphatase 92 U/L (38-126); Anion Gap 8 mmol/L (4-12); Aspartate Amino Transferase 23 U/L (17-59); Bilirubin,Total 0.6 mg/dL (0.2-1.3); Blood Urea Nitrogen 12 mg/dL (9-20); Calcium 8.4 mg/dL (8.4-10.2); Carbon Dioxide 30 mmol/L (22-30); Chloride 103 mmol/L (98-107); Estimated CRCL calculation 84 ml/min; Estimated Glomerular Filt Rate > 60; Glucose 91 mg/dL (65-110); Magnesium 1.9 mg/dL (1.6-2.3); Potassium 3.5 mmol/L (3.4-5.0); Sodium 141 mmol/L (137-145)
[2024-11-17] MEDS: CEFEPIME 2 GM/NS 50 ML 2 GM/50 ML BAG IVPB ×3 (05:50→22:00)
[2024-11-17] MEDS: FUROSEMIDE INJ 40 MG/4 ML VIAL IV PUSH (05:51)
[2024-11-17 05:54] LABS: NT Pro B Type Natriuretic Pept 133 pg/mL (19.9-100)
[2024-11-17] MEDS: ACETAMINOPHEN 325 MG TABLET 650 MG PO ×3 (06:35→16:41)
[2024-11-17] MEDS: VANCOMYCIN 2,000 MG/NS 500 ML 2,000 MG/500 ML BAG 250 MG IVPB (06:39)
--- NOTE | 2024-11-17 06:39 | PC.NURSE ---
PCT called me into the room earlier when she did 0400 vitals as SpO2 was 68% on 2.5 LPM via nasal cannula. RT called as Pt. sounded course. Repositioned Pt. in bed to encourage coughing & deep breathing, along with cornet use. Pt. did use cornet along with coughing & deep breathing. No phlegm expelled. Lung sounds dim on Lt. side with course wheezing on Rt. O2 gradually increased up to 5 LPM and charge nurse called. SpO2 did not go above 80 % on 5 LPM and nasal cannula changed over to high flow nasal cannula at 7 LPM and later up to 10 LPM. SpO2 remained in the mid to upper 80 %. Dr. Pleitez notified and orders received for stat CXR, ABG's and give Duoneb now & he will be on his way to see Pt. evaluated Pt. and ordered Cefepime, IV Lasix and Vancomycin. Pt. later voided 675 ml urine after Lasix was given but O2 sat decreased to 78 % on high flow nasal cannula at 15 LPM. notified and stated to place Pt. on Airvo and move to IMU-he is placing the orders to do this. RT & Vp Design notified.
[2024-11-17 06:41] LABS: MRSA (PCR) NOT DETECTED (NOT DETECTE)
--- NOTE | 2024-11-17 06:56 | PC.NURSE ---
0655 Report received from AMIBKA Proctor.
--- NOTE | 2024-11-17 07:29 | PC.NURSE ---
This patient, Kiran Smith, was transferred to [ [id number] ] on 11/17/24 at 0714. Personal belongings sent with patient. Report given to [ Leana RN & AMBIKA Renteria ]. Appropriate documentation sent with patient.
--- NOTE | 2024-11-17 07:31 | PCRCNOTE ---
GAVE PT. HIS TRELEGY INHALER AT 0700 BEFORE MOVING TO IMU ; MOUTH WAS RINSED POST.
[2024-11-17 08:33] LABS: Procalcitonin 0.1 ng/mL
[2024-11-17] MEDS: MIDODRINE HCL 2.5 MG TABLET PO ×2 (09:28→16:42)
[2024-11-17] MEDS: FERROUS SULFATE 325 MG TABLET DR BY MOUTH (09:28)
[2024-11-17] MEDS: buPROPion HCL XL (24 HR) 150 MG TABCR 300 MG BY MOUTH (09:28)
[2024-11-17] MEDS: PREGABALIN (*CRX) 75 MG CAPSULE 150 MG PO ×2 (09:28→16:41)
[2024-11-17] MEDS: PARoxetine 20 MG TABLET 40 MG BY MOUTH (09:28)
[2024-11-17] MEDS: PANTOPRAZOLE 40 MG TABLET PO ×2 (09:28→21:56)
[2024-11-17] MEDS: guaiFENesin 12 HR 600 MG TABCR 1200 MG PO ×2 (09:28→21:55)
[2024-11-17] MEDS: levETIRAcetam 500 MG TABLET PO ×2 (09:28→21:56)
[2024-11-17] MEDS: LIDOCAINE 5% PATCH 1 PATCH TOPICAL (09:28)
[2024-11-17] MEDS: OSELTAMIVIR PHOSPHATE 75 MG CAPSULE PO ×2 (09:29→21:56)
--- NOTE | 2024-11-17 10:25 | P.PNIM_ITS ---
Progress Note: A&P Assessment and Plan (1) Influenza A: Code(s): J10.1 - Influenza due to other identified influenza virus with other respiratory manifestations Status: Acute Assessment and Plan: * Influenza A positive. * Negative for COVID, RSV and Influenza B. * Tamiflu 75 mg PO q 12. * WBC 9.8>11.6. * Sa02 98% on high flow nasal cannula 45 liters. (2) Postobstructive pneumonia: Code(s): J18.9 - Pneumonia, unspecified organism Status: Acute Assessment and Plan: * WBC 9.8>11.6. * CTA chest without PE. * Patchy bibasilar ground opacity suspicious for infection as well as left descending bronchus being largely obstructive with postobstructive consolidation noted as well. * At 3:00 a.m. this morning the patient had respiratory distress and hypoxemia. See event note by hospitalist. He had audible mucus congestion and white crackles throughout the lungs. Chest x-ray showed worsening right-sided interstitial alveolar infiltrates. ABG was 7.35/53/75 on 15 L non-rebreather. BNP was 133. Procalcitonin 0.1. Patient was treated with bronchodilators, IV Lasix, antibiotics changed to vancomycin and cefepime with continuation of Flagyl. Patient ultimately required Vapotherm and was transferred to the IMU. * Stop Azithromycin and Vancomycin. Start Cefepime and Levofloxacin. Continue Flagyl. * Duoneb q 6. * Guaifenesin 1,200 mg PO q 12. * Cornet flutter valve to aid in sputum expectoration. * Dr. Mosley Rn Interventional following, appreciate recommendations. * Repeat CT scan in 3-6 weeks. (3) COPD (chronic obstructive pulmonary disease): Qualifiers: COPD type: unspecified COPD Qualified Code(s): J44.9 - Chronic obstructive pulmonary disease, unspecified Code(s): J44.9 - Chronic obstructive pulmonary disease, unspecified Status: Acute Assessment and Plan: * Duoneb q6 * Stop Azithromycin and Vancomycin. Start Cefepime and Levofloxacin. Continue Flagyl. * Guaifenesin 1,200 mg PO q 12. * Pulmonology following, appreciate recommendations. * Repeat Chest X-ray this morning showed: FINDINGS: There are airspace opacities in all right lung zones and in left lower lobe. There are scattered nodules in left upper lobe. No pleural effusion or pneumothorax. The heart size is normal. Retained epidural electrodes are noted. There are surgical clips at right lung apex. IMPRESSION: 1. Worsened diffuse lung disease, consistent with pneumonia. Plan Patient wishes to be full code. Home medications restarted as appropriate. Holding RN LPN LVN aspirin for now SCDs. Subjective Date/time seen: 11/17/24 10:25 Interval history: Patient reports shortness of breath at rest at times. Patient reports coughing up brown sputum. Patient denies chest pain, palpitations, headache, dizziness, nausea, or vomting. Review of Systems Review of Systems: All systems reviewed & are unremarkable except as noted in HPI and below Exam Const: General: comfortable and no acute distress Resp: Effort & Inspection: normal respiratory effort Auscultation: rhonchi throughout Other: Patient is able to speak in complete sentences. Cardio: Rate: regular rate Rhythm: regular rhythm Other: Telemetry- SR 74 GI: GI Palp: Yes Soft to palpation Auscultation: normal bowel sounds Neuro: Speech: normal speech Extrem: General: no pedal edema Psych: Mental Status: mental status grossly normal Affect: normal affect Objective Data Vital Signs Vital Signs: Vital Signs - 24 hr 11/16/24 14:00 11/16/24 20:00 11/16/24 20:00 Temperature 98.0 F Pulse Rate 73 Respiratory Rate 20 Blood Pressure 122/81 Pulse Oximetry 94 92 92 Oxygen Delivery Nasal Cannula Nasal Cannula Oxygen Flow Rate 2.5 2.5 Fraction of Inspired Oxygen 11/16/24 20:20 11/17/24 04:35 11/17/24 04:50 Temperature 98.2 F 97.5 F L Pulse Rate 81 88 Respiratory Rate 20 24 H Blood Pressure 99/58 L 134/78 Pulse Oximetry 92 98 86 L Oxygen Delivery High Flow Nasal Cannula Oxygen Flow Rate 7 Fraction of Inspired Oxygen 11/17/24 05:00 11/17/24 05:05 11/17/24 05:35 Temperature Pulse Rate 88 Respiratory Rate 22 H Blood Pressure Pulse Oximetry 85 L 83 L Oxygen Delivery High Flow Nasal Cannula High Flow Nasal Cannula Oxygen Flow Rate 10 15 Fraction of Inspired Oxygen 11/17/24 05:45 11/17/24 06:27 11/17/24 06:35 Temperature Pulse Rate 92 Respiratory Rate 22 H Blood Pressure Pulse Oximetry 91 83 L Oxygen Delivery High Flow Nasal Cannula High Flow Nasal Cannula Oxygen Flow Rate 15 15 Fraction of Inspired Oxygen 11/17/24 06:36 11/17/24 07:10 11/17/24 08:18 Temperature Pulse Rate 75 Respiratory Rate 24 H Blood Pressure Pulse Oximetry 92 91 96 Oxygen Delivery High Flow Therapy with Na High Flow Therapy with Na High Flow Therapy with Na Oxygen Flow Rate 45 45 45 Fraction of Inspired Oxygen 90 90 90 11/17/24 08:18 11/17/24 08:23 11/17/24 08:33 Temperature 98.0 F Pulse Rate 75 80 84 Respiratory Rate 24 H 24 H 22 H Blood Pressure 119/70 Pulse Oximetry 91 Oxygen Delivery Oxygen Flow Rate Fraction of Inspired Oxygen Intake/Output Intake/Output: Intake & Output 11/14/24 11/15/24 11/16/24 11/17/24 23:59 23:59 23:59 23:59 Intake Total 1510 1230 2602 500 Output Total 630 2 425 1025 Balance 880 1228 2177 525 Meds/Results Medications: Active Medications Generic Name Dose Route Start Last Admin Trade Name Freq PRN Reason Stop Dose Admin Acetaminophen 650 mg 11/13/24 21:48 11/17/24 06:35 Acetaminophen 325 Mg Tablet PO 650 mg Q4H PRN Administration Mild Pain (1-3) or Fever Albuterol/Ipratropium 3 ml 11/17/24 08:00 11/17/24 08:17 Ipratropium 0.5 Mg/Albuterol Sulfate 2.5 Mg Ampul.Neb 3 Ml INHALATION 3 ml Q4HRT DANE Administration Bupropion HCl 300 mg 11/14/24 09:00 11/17/24 09:28 Bupropion Hcl Xl (24 Hr) 150 Mg Tabcr BY MOUTH 300 mg DAILY DANE Administration Ferrous Sulfate 325 mg 11/14/24 09:00 11/17/24 09:28 Ferrous Sulfate [address] BY MOUTH 325 mg DAILY DANE Administration Guaifenesin 1,200 mg 11/14/24 10:35 11/17/24 09:28 Guaifenesin 12 Hr 600 Mg Tabcr PO 1,200 mg Q12HR DANE Administration Azithromycin 500 mg in 250 mls @ 250 mls/hr 11/15/24 00:00 11/17/24 01:02 Zithromax IVPB Infused Q24H DANE Infusion Metronidazole 500 mg in 100 mls @ 100 mls/hr 11/14/24 03:00 11/17/24 04:55 Flagyl 500 Mg/Iso Soln 100 Ml IVPB Infused Q8H DANE Infusion Cefepime HCl 2 gm in 50 mls @ 100 mls/hr 11/17/24 06:00 11/17/24 06:20 Maxipime 2 Gm/Ns 50 Ml IVPB Infused Q8HR DANE Infusion Vancomycin HCl 1,500 mg in 500 mls @ 250 mls/hr 11/17/24 19:00 Vancomycin 1,500 Mg/Ns 500 Ml IVPB Q12H DANE Levetiracetam 500 mg 11/14/24 13:35 11/17/24 09:28 Levetiracetam 500 Mg Tablet PO 500 mg Q12HR DANE Administration Lidocaine 1 patch 11/14/24 09:00 11/17/24 09:28 Lidocaine 5% Patch TOPICAL 1 patch DAILY DANE Administration Lorazepam 0.5 mg 11/13/24 21:34 Lorazepam (*Crx) 0.5 Mg Tablet PO ONCE PRN Agitation Lorazepam 0.5 mg 11/14/24 02:03 Lorazepam (*Crx) 0.5 Mg Tablet PO BID PRN anxiety Midodrine 2.5 mg 11/14/24 09:00 11/17/24 09:28 Midodrine Hcl 2.5 Mg Tablet PO 2.5 mg BID DANE Administration Oseltamivir Phosphate 75 mg 11/14/24 02:20 11/17/24 09:29 Oseltamivir Phosphate 75 Mg Capsule PO 11/19/24 02:19 75 mg Q12HR DANE Administration Oxycodone HCl 10 mg 11/14/24 10:50 11/17/24 05:36 Oxycodone (*Crx) 5 Mg/5 Ml Oral Soln Ir PO 10 mg Q4HR DANE Administration Pantoprazole Sodium 40 mg 11/14/24 09:00 11/17/24 09:28 Pantoprazole 40 Mg Tablet PO 40 mg Q12HR DANE Administration Paroxetine HCl 40 mg 11/14/24 09:00 11/17/24 09:28 Paroxetine 20 Mg Tablet BY MOUTH 40 mg QAM DANE Administration Pregabalin 150 mg 11/14/24 09:00 11/17/24 09:28 Pregabalin (*Crx) 75 Mg Capsule PO 150 mg BID DANE Administration Tizanidine HCl 4 mg 11/14/24 02:03 Tizanidine Hcl 4 Mg Tablet PO TID PRN muscle spasticity Trazodone HCl 100 mg 11/14/24 21:00 11/16/24 21:51 Trazodone Hcl 50 Mg Tablet PO 100 mg QHS DANE Administration Radiology Results: ITS Impressions Chest CTA 11/13/24 21:03 IMPRESSION: No pulmonary embolus. No thoracic aortic dissection. Obstruction of the left lower lobe bronchus with postobstructive consolidation for which direct visualization is recommended. Additional findings within the remainder of the left as well as the remaining right lung for which infectious etiology is favored. Chest X-Ray 11/17/24 06:14 IMPRESSION: 1. Worsened diffuse lung disease, consistent with pneumonia. Labs Labs: Laboratory Results - last 24 hr 11/17/24 11/17/24 05:13 05:23 WBC 11.6 H RBC 5.03 Hgb 13.3 L Hct 42.8 MCV 85.1 MCH 26.4 MCHC 31.1 L RDW 16.1 H Plt Count 242 MPV 9.8 Immature Gran % (Auto) 1.0 H Neut % (Auto) 79.7 H Lymph % (Auto) 9.4 L [place] % (Auto) 6.9 Eos % (Auto) 2.7 Baso % (Auto) 0.3 Lymph # (Auto) 1.09 [place] # (Auto) 0.8 H Eos # (Auto) 0.3 Baso # (Auto) 0.0 Abs Immat Gran (auto) 0.12 H Absolute Neuts (auto) 9.2 H Absolute Nucleated RBC 0.000 Nucleated RBC % 0.0 Puncture Site Left radial ABG pH 7.351 ABG pCO2 52.7 H ABG pO2 74.5 L ABG PO2/FiO2 Ratio 0.75 ABG HCO3 28.5 H ABG O2 Saturation 94.1 L ABG O2 Content 17.7 ABG Base Excess 1.9 A-a Gradient 585.8 Oxyhemoglobin 92.9 Total Hemoglobin 13.5 O2 Delivery Device Non-rebreather mask O2 Liters/Min 15.0 FiO2 100 Sodium 141 Potassium 3.5 Chloride 103 Carbon Dioxide 30 Anion Gap 8 BUN 12 Creatinine 0.73 Estim Creat Clear Calc 84 Estimated GFR > 60 Glucose 91 Calcium 8.4 Magnesium 1.9 Total Bilirubin 0.6 AST 23 ALT 11 Alkaline Phosphatase 92 NT-Pro-B Natriuret Pep 133 H Total Protein 7.0 Albumin 3.1 L Procalcitonin 0.1 Nasal MRSA (PCR) Not detected Quality VTE Prophylaxis VTE prophylaxis: mechanical ordered
[2024-11-17] MEDS: levoFLOXacin 750 MG/D5W 150 ML 750 MG/150 ML BAG 100 MG IVPB (12:19)
--- NOTE | 2024-11-17 13:23 | P.PNPL_ITS ---
Progress Note: A&P Assessment and Plan (1) Influenza A: Code(s): J10.1 - Influenza due to other identified influenza virus with other respiratory manifestations Status: Acute Assessment and Plan: Patient has influenza a pneumonia. Plan: I have discontinued his Solu-Medrol. Patient is on Tamiflu day 1. Will continue For at least 5 days. patient is on room air at this time with with a goal saturation 90-94%. 11/15/24: patient tells me he is much improved. states his breathing is back to normal. His cough is normal. He has no phlegm, hemoptysis. He is afebrile. White blood cell count 11.3. Currently is on room air with saturations 92%. Plan: Patient is improving. continue Tamiflu, day 2. 11/16/24: Patient tells me he is breathing normal and his cough is normal. He is unable to expectorate phlegm. Worsening oxygen requirements and currently on 3 L with saturations 90%. He is afebrile. White blood cell count 9.8, creatinine 0.82. Plan: patient does not feels well as he did yesterday. Continue Tamiflu, day 3. I will check a chest x-ray in the morning. 11/17/24: At 3:00 a.m. this morning the patient had respiratory distress and hypoxemia. See event note by hospitalist. He had audible mucus congestion and white crackles throughout the lungs. Chest x-ray showed worsening right-sided interstitial alveolar infiltrates. ABG was 7.35/53/75 on 15 L non-rebreather. BNP was 133. Procalcitonin 0.1. Patient was treated with bronchodilators, IV Lasix, antibiotics changed to vancomycin and cefepime with continuation of Flagyl. Patient ultimately required Vapotherm and was transferred to the IMU. Currently the patient states his breathing is worsening get short of breath at rest. He has increased phlegm production that is dark red. He is currently on the Vapotherm 45 L, 90% FiO2 with saturations 97%. His white blood cell count is 11.6, is creatinine is 0.73. Plan: Continue Tamiflu day 4. Patient with new right-sided infiltrates despite being treated with ceftriaxone, azithromycin and Flagyl. MRSA nasal swab negative. This could represent a healthcare associated pneumonia and he has been switched to Cefepime, levofloxacin both day 1, and continuation of Flagyl, day 4. Discussed with Lupe Jacob. Will follow with you. (2) Respiratory failure with hypoxia and hypercapnia: Code(s): J96.91 - Respiratory failure, unspecified with hypoxia; J96.92 - Respiratory failure, unspecified with hypercapnia Status: Acute Assessment and Plan: Patient is on no home oxygen. 18:30 RA, sats 94 11/14 06:45 RA, sats 94 11/14 19:45 RA, sats 91 11/15 08:00 RA, sasts 92 11/15 13:30 2 L NC, sats 92 11/15 20:54 1 L NC, sats 91 11/16 7:43 2.5 L NC, sats 90 11/16 20:00 2.5 L NC, sats 92 11/17 05:13 ABG on 15 L non-rebreather mask 7.35/53/75. 11/17 06:00 vapotherm 45 L, 90% FIO2, sats 92% 11/17/24: Patient tells me he is comfortable right now on the Vapotherm. We talked about BiPAP he says he is feeling breathing fine at this time and is worried that he will be claustrophobic with the BiPAP. If he needs a BiPAP he is in agreement to try this. We talked about intubation and the patient has been intubated twice in the past and says he would be okay for intubation and mechanical ventilation if the need should arise. He is full code. (3) COPD (chronic obstructive pulmonary disease): Qualifiers: COPD type: unspecified COPD Qualified Code(s): J44.9 - Chronic obstructive pulmonary disease, unspecified Code(s): J44.9 - Chronic obstructive pulmonary disease, unspecified Status: Acute Assessment and Plan: Patient with a 50 pack year tobacco use, currently smoking 1 pack over 3 days. PFTs on 01/20/2021 with a moderately severe obstructive abnormality with an FEV1 of 1.71 L, 50% predicted, ratio 52%, normal lung volumes, moderately decreased DLCO that normalized when corrected for alveolar volume. currently not on supplemental oxygen at home. Eosinophil on 11/13/2024 is 33 per micro L Plan: patient is currently not wheezing any longer and I will discontinue his systemic steroids because he has influenza a infection. I will continue DuoNebs q.6 hours. he is concurrently being treated for community acquired pneumonia with possible post obstruction with ceftriaxone, azithromycin and Flagyl. Will continue for now. 11/15: No evidence of COPD exacerbation. plan: I will discontinue nebulizers and continue his home trelegy 100. Continue guaifenesin 1200 mg p.o. b.i.d.. 11/16: No wheezing. He is more congested with phlegm. Plan: Continue trilogy 100, guaifenesin 1200 mg p.o. b.i.d. will add Cornet flutter valve today. 11/17/24: No wheezes today. Plan: I will change his trilogy 100 to DuoNebs q.4 hours. (4) Postobstructive pneumonia: Code(s): J18.9 - Pneumonia, unspecified organism Status: Acute Assessment and Plan: Patient with a normal CT scan 07/10/2024 and now with multifocal nodular consolidations with influenza pneumonia. Plan: I will continue to treat the patient for influenza pneumonia with Tamiflu and possible bacterial infection with ceftriaxone, azithromycin and Flagyl. Overall I will continue these treatments until the patient is recovered and repeat a CT scan in the future to reassess his infiltrates. I will place the patient on guaifenesin 1200 mg p.o. b.i.d. and had a Cornet flutter valve to aid in sputum expectoration. 11/15: Afebrile. White blood cell count 11.3. Clinically is improving. Plan: Continue treatment for influenza pneumonia with Tamiflu and possible bacterial infection with ceftriaxone day 3, azithromycin day 3 and Flagyl day 2. Will treat patient aggressively for influenza and possible bacterial pneumonia and eventually repeat CT scan in approximately 3-6 weeks. 11/16/24: afebrile, white blood cell count 9.8. Somewhat worse today. Plan: Continue ceftriaxone day 4, azithromycin day 4 and Flagyl day 3. Repeat chest x-ray in the morning. Subjective Date/time seen: 11/17/24 13:23 Interval history: 11/14/2024: This is a new pulmonary consult for influenza and possible post obstructive pneumonia. 64-year-old with a history of tobacco use, COPD, stage I A lung cancer status post right upper lobectomy on , gastric bypass 2000, GERD. regarding his lung cancer the patient had a right upper lobectomy with leg negative lymph nodes on 01/23/2020. He received no additional treatment. He is followed by Dr. Quinten mccurdy and had a CT scan on 07/10/2024 with emphysema no evidence of malignancy with recommendation to repeat in 1 year. Regarding his COPD. Patient smoked tobacco from age 14 to current at 1 pack per day for a total of 50 pack years. He was exposed to secondhand smoke from his father. 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 He did wear respiratory protection when he grinds id. He retired 4-5 years ago. He is not on any home oxygen. He is maintained on trelegy 100 and p.r.n. albuterol. patient tells me he presents with 3 weeks history of cough and phlegm which was brown. Two weeks worth of shortness of breath. Symptoms actually got better until about 3 days ago when his cough and shortness of breath got worse. His phlegm production increased. He presented to the emergency room on 11/13/2024. His blood pressure was 132/ 81, heart rate 71, respirations 20, room air saturations 94%. White blood cell count 11.1, creatinine 0.81, D-dimer 0.83. Influenza a RT PCR positive. Chest x-ray showed left lower lobe consolidation. CT angiogram of the chest showed left lung nodular consolidations throughout. Panlobular emphysema. Left lower lobe was completely consolidated with cutoff of the left lower lobe bronchi. There are no pleural effusions. patient was treated with Tamiflu, ceftriaxone, azithromycin, Solu-Medrol and Flagyl. 11/14/2024. Today the patient states that he is breathing better. He says he is breathing 50% back to his normal. His cough is 50% better and his wheezing is 60% better. Currently the patient is on room air with saturations 92%. 11/15/24: patient tells me he is much improved. states his breathing is back to normal. His cough is normal. He has no phlegm, hemoptysis. He is afebrile. White blood cell count 11.3. Currently is on room air with saturations 92%. 11/16/24: Patient tells me he is breathing normal and his cough is normal. He is unable to expectorate phlegm. Worsening oxygen requirements and currently on 3 L with saturations 90%. He is afebrile. White blood cell count 9.8, cre atinine 0.82. 11/17/24: At 3:00 a.m. this morning the patient had respiratory distress and hypoxemia. See event note by hospitalist. He had audible mucus congestion and white crackles throughout the lungs. Chest x-ray showed worsening right-sided interstitial alveolar infiltrates. ABG was 7.35/53/75 on 15 L non-rebreather. BNP was 133. Procalcitonin 0.1. Patient was treated with bronchodilators, IV Lasix, antibiotics changed to vancomycin and cefepime with continuation of Flagyl. Patient ultimately required Vapotherm and was transferred to the IMU. Currently the patient states his breathing is worsening get short of breath at rest. He has increased phlegm production that is dark red. He is currently on the Vapotherm 45 L, 90% FiO2 with saturations 97%. His white blood cell count is 11.6, is creatinine is 0.73. DATA: EXAMINATION: CTA chest PE protocol DATE: 11/13/2024 21:03 MEDICAL DETAIL REPRESENTATIVE INDICATION: Elevated d-dimer with shortness of breath. Personal history of right-sided lung cancer post right middle lobectomy in 2019 with negative margins. TECHNIQUE: Computed tomographic angiography (CTA) of the chest was performed with 100 mL Omnipaque-350 intravenous contrast. The dose-length product was 399.78 mGy-cm. Maximum intensity projection 3D-reconstructions of the aorta and other arteries were constructed by the technologist on a separate workstation. COMPARISON: 07/10/2024 FINDINGS/OBSERVATIONS: PULMONARY ARTERIES: No filling defect is identified within the main or proximal pulmonary artery. The main pulmonary artery is not enlarged. THORACIC AORTA: No aneurysmal dilatation or dissection is present. The great vessels are intact LUNGS: Patchy groundglass opacification detected bilaterally, possibly infectious in origin. The left descending bronchus is largely obscured for which direct visualization is recommended. Post obstructive consolidation is noted, involving the entirety of the left lower lobe. Panlobular emphysematous disease is also noted. Biapical scarring is present. Postoperative change within the right hilum, consistent with patient's history. MEDIASTINUM: Mediastinal lymphadenopathy is identified within the aortopulmonary window and the left paratracheal region. The largest lymph node is within the left paratracheal region measuring 12 mm in short axis dimension. Multiple calcified lymph nodes are also detected within the mediastinum, suggesting prior granulomatous disease. BONES OF THE CHEST: No acute fracture. No significant degenerative disease. No lytic or blastic lesions. Leads from a stimulator device are identified within the canal. HEART: The heart is borderline enlarged, without pericardial effusion. IMPRESSION: No pulmonary embolus. No thoracic aortic dissection. Obstruction of the left lower lobe bronchus with postobstructive consolidation for which direct visualization is recommended. Additional findings within the remainder of the left as well as the remaining right lung for which infectious etiology is favored. 07/10/24: Clinical Indication: Lung cancer CT Scan of the Chest with Contrast: Technique: Contiguous sections were acquired throughout the chest after intravenous administration of 75 cc of Omnipaque 350. Dose reduction technique was used on this scan by utilizing automated exposure control and iterative reconstruction technique. The dose-length product (DLP) was 178.75 mGy-cm. COMPARISON: 02/06/2022 Findings: There is no evidence of any significant mediastinal, hilar or axillary lymphadenopathy. There is no filling defect in the pulmonary arterial tree to suggest pulmonary embolus. There is no evidence of aortic dissection or aneurysm. There is no evidence of pleural or pericardial effusion. Status post right middle lobectomy. There is biapical scarring, unchanged. Paraseptal emphysema is unchanged, predominantly in the upper lobes. Stable scarring at the inferior right upper lobe. There is left basilar consolidation, presumably atelectasis. Images through the upper abdomen reveal probable prior bariatric surgery. There are mild compression fractures of L1 and L2, age indeterminate. Impression: No evidence of active malignancy or metastatic disease. Status post right middle lobectomy. Emphysema and scarring, as above. Probable left basilar atelectasis versus possibly pneumonia. Compression fractures of L1-L2, age indeterminate, new since prior exam. 06/17/2021 This is a pulmonary function test with pre and post-bronchodilator spirometry, plethysmography and diffusing capacity. The test was performed and results interpreted in accordance with the 2019 and 2005 ATS/ERS Task Force guidelines respectively using the Global Lung Function Initiative-2012 reference equations. Patient demonstrated good effort and cooperation. Reproducibility criteria were met. The quality of the pre bronchodilator spirometry maneuver was Grade A and post bronchodilator spirometry maneuver was Grade A. Findings: Spirometry: there is decreased maximal expiratory airflow at all lung volumes with concave expiratory flow tracing. The contour of the inspiratory flow tracing is normal. The pre bronchodilator FVC is 3.31 L, 75% predicted. The pre bronchodilator FEV1 is 1.71 L, 50% predicted. The FEV1: FVC ratio is 52%. The post bronchodilator FVC is 3.44 L, representing a 4% increase. The post bronchodilator FEV1 is 1.79 L, representing a 5% increase. Plethysmography: The total lung capacity is 5.86 L, 86% predicted. The functional residual capacity is 3.47 L, 98% predicted. The residual volume is 2.56 L, 115% predicted. Diffusion capacity: The absolute diffusion capacity is 14.6, 53% predicted. The diffusing capacity corrected for alveolar volume is 3.41, 80% predicted. Impression: There is a moderately severe obstructive abnormality without significant improvement after inhaling a single dose of albuterol. The lung volumes are normal. The absolute diffusing capacity is moderately decreased and normalizes when corrected for alveolar volume. There are no prior studies for comparison Review of Systems Constitutional: Constitutional: Reports no additional constitutional complaints Eyes: Eyes: Reports no additional eye complaints ENT: Reports system reviewed and no additional complaints, except as documented Cardiovascular: Cardiovascular: Reports no additional cardiovascular complaints Respiratory: Respiratory: Reports no additional respiratory complaints Gastrointestinal: Gastrointestinal: Reports no additional gastrointestinal complaints Musculoskeletal: Musculoskeletal: Reports no additional musculoskeletal complaints Neurologic: Reports system reviewed and no additional complaints, except as documented Psychiatric: Psychiatric: Reports no additional psychiatric complaints Endocrine: Endocrine: Reports no additional endocrine complaints Hematologic/Lymphatic: Hematologic/Lymphatic: Reports no additional hematologi c/lymphatic complaints Allergic/Immunologic: Allergic/Immunologic: Reports no additional allergic/immunologic complaints Exam Const: General: cooperative, healthy appearing and comfortable Orientation/consciousness: oriented to person, oriented to place and oriented to time HENMT: Head: normal to inspection Ears: hearing grossly normal bilaterally Eyes: General: appearance normal, both eyes and all related structures Neck: Neck: normal visual inspection Chest: Chest palpation & inspection: normal inspection of the chest Resp: Effort & Inspection: normal respiratory effort and able to speak in complete sentences Auscultation: no crackles, no rales, rhonchi, no wheezes and diminished lung sounds Other: Coarse rhonchi throughout Cardio: Jugular venous distension: no JVD GI: Inspection: normal to inspection Skin: General skin exam: normal color Neuro: General: oriented to person, oriented to place and oriented to time Extrem: General: normal to inspection and no edema Psych: Appearance: grossly normal Objective Data Vital Signs Vital Signs: Vital Signs - 24 hr 11/16/24 14:00 11/16/24 20:00 11/16/24 20:00 Temperature 36.7 C Pulse Rate 73 Respiratory Rate 20 Blood Pressure 122/81 Pulse Oximetry 94 92 92 Oxygen Delivery Nasal Cannula Nasal Cannula Oxygen Flow Rate 2.5 2.5 Fraction of Inspired Oxygen 11/16/24 20:20 11/17/24 04:35 11/17/24 04:50 Temperature 36.8 C 36.4 C L Pulse Rate 81 88 Respiratory Rate 20 24 H Blood Pressure 99/58 L 134/78 Pulse Oximetry 92 98 86 L Oxygen Delivery High Flow Nasal Cannula Oxygen Flow Rate 7 Fraction of Inspired Oxygen 11/17/24 05:00 11/17/24 05:05 11/17/24 05:35 Temperature Pulse Rate 88 Respiratory Rate 22 H Blood Pressure Pulse Oximetry 85 L 83 L Oxygen Delivery High Flow Nasal Cannula High Flow Nasal Cannula Oxygen Flow Rate 10 15 Fraction of Inspired Oxygen 11/17/24 05:45 11/17/24 06:27 11/17/24 06:35 Temperature Pulse Rate 92 Respiratory Rate 22 H Blood Pressure Pulse Oximetry 91 83 L Oxygen Delivery High Flow Nasal Cannula High Flow Nasal Cannula Oxygen Flow Rate 15 15 Fraction of Inspired Oxygen 11/17/24 06:36 11/17/24 07:10 11/17/24 08:18 Temperature Pulse Rate 75 Respiratory Rate 24 H Blood Pressure Pulse Oximetry 92 91 96 Oxygen Delivery High Flow Therapy with Na High Flow Therapy with Na High Flow Therapy with Na Oxygen Flow Rate 45 45 45 Fraction of Inspired Oxygen 90 90 90 11/17/24 08:18 11/17/24 08:23 11/17/24 08:33 Temperature 36.7 C Pulse Rate 75 80 84 Respiratory Rate 24 H 24 H 22 H Blood Pressure 119/70 Pulse Oximetry 91 Oxygen Delivery Oxygen Flow Rate Fraction of Inspired Oxygen 11/17/24 11:54 11/17/24 12:00 Temperature 36.3 C L Pulse Rate 89 76 Respiratory Rate 24 H 20 Blood Pressure 115/69 Pulse Oximetry 98 Oxygen Delivery Oxygen Flow Rate Fraction of Inspired Oxygen Intake/Output Intake/Output: Intake & Output 11/14/24 11/15/24 11/16/24 11/17/24 23:59 23:59 23:59 23:59 Intake Total 1510 1230 2602 740 Output Total 630 2 425 1025 Balance 880 1220 2136 -813 Meds/Results Medications: Active Medications Generic Name Dose Route Start Last Admin Trade Name Freq PRN Reason Stop Dose Admin Acetaminophen 650 mg 11/13/24 21:48 11/17/24 12:20 Acetaminophen 325 Mg Tablet PO 650 mg Q4H PRN Administration Mild Pain (1-3) or Fever Albuterol/Ipratropium 3 ml 11/17/24 08:00 11/17/24 11:52 Ipratropium 0.5 Mg/Albuterol Sulfate 2.5 Mg Ampul.Neb 3 Ml INHALATION 3 ml Q4HRT DANE Administration Bupropion HCl 300 mg 11/14/24 09:00 11/17/24 09:28 Bupropion Hcl Xl (24 Hr) 150 Mg Tabcr BY MOUTH 300 mg DAILY DANE Administration Ferrous Sulfate 325 mg 11/14/24 09:00 11/17/24 09:28 Ferrous Sulfate [address] BY MOUTH 325 mg DAILY DANE Administration Guaifenesin 1,200 mg 11/14/24 10:35 11/17/24 09:28 Guaifenesin 12 Hr 600 Mg Tabcr PO 1,200 mg Q12HR DANE Administration Metronidazole 500 mg in 100 mls @ 100 mls/hr 11/14/24 03:00 11/17/24 12:19 Flagyl 500 Mg/Iso Soln 100 Ml IVPB 100 mls/hr Q8H DANE Administration Cefepime HCl 2 gm in 50 mls @ 100 mls/hr 11/17/24 06:00 11/17/24 06:20 Maxipime 2 Gm/Ns 50 Ml IVPB Infused Q8HR DANE Infusion Levofloxacin/Dextrose 750 mg in 150 mls @ 100 mls/hr 11/17/24 12:00 11/17/24 12:19 Levaquin 750 Mg/D5w 150 Ml IVPB 100 mls/hr DAILY DANE Administration Levetiracetam 500 mg 11/14/24 13:35 11/17/24 09:28 Levetiracetam 500 Mg Tablet PO 500 mg Q12HR DANE Administration Lidocaine 1 patch 11/14/24 09:00 11/17/24 09:28 Lidocaine 5% Patch TOPICAL 1 patch DAILY DANE Administration Lorazepam 0.5 mg 11/13/24 21:34 Lorazepam (*Crx) 0.5 Mg Tablet PO ONCE PRN Agitation Lorazepam 0.5 mg 11/14/24 02:03 Lorazepam (*Crx) 0.5 Mg Tablet PO BID PRN anxiety Midodrine 2.5 mg 11/14/24 09:00 11/17/24 09:28 Midodrine Hcl 2.5 Mg Tablet PO 2.5 mg BID DANE Administration Oseltamivir Phosphate 75 mg 11/14/24 02:20 11/17/24 09:29 Oseltamivir Phosphate 75 Mg Capsule PO 11/19/24 02:19 75 mg Q12HR DANE Administration Oxycodone HCl 10 mg 11/14/24 10:50 11/17/24 12:32 Oxycodone (*Crx) 5 Mg/5 Ml Oral Soln Ir PO 10 mg Q4HR DANE Administration Pantoprazole Sodium 40 mg 11/14/24 09:00 11/17/24 09:28 Pantoprazole 40 Mg Tablet PO 40 mg Q12HR DANE Administration Paroxetine HCl 40 mg 11/14/24 09:00 11/17/24 09:28 Paroxetine 20 Mg Tablet BY MOUTH 40 mg QAM DANE Administration Pregabalin 150 mg 11/14/24 09:00 11/17/24 09:28 Pregabalin (*Crx) 75 Mg Capsule PO 150 mg BID DANE Administration Tizanidine HCl 4 mg 11/14/24 02:03 Tizanidine Hcl 4 Mg Tablet PO TID PRN muscle spasticity Trazodone HCl 100 mg 11/14/24 21:00 11/16/24 21:51 Trazodone Hcl 50 Mg Tablet PO 100 mg QHS DANE Administration Radiology Results: ITS Impressions Chest CTA 11/13/24 21:03 IMPRESSION: No pulmonary embolus. No thoracic aortic dissection. Obstruction of the left lower lobe bronchus with postobstructive consolidation for which direct visualization is recommended. Additional findings within the remainder of the left as well as the remaining right lung for which infectious etiology is favored. Chest X-Ray 11/17/24 06:14 IMPRESSION: 1. Worsened diffuse lung disease, consistent with pneumonia. Labs Labs: Laboratory Results - last 24 hr 11/17/24 11/17/24 05:13 05:23 WBC 11.6 H RBC 5.03 Hgb 13.3 L Hct 42.8 MCV 85.1 MCH 26.4 MCHC 31.1 L RDW 16.1 H Plt Count 242 MPV 9.8 Immature Gran % (Auto) 1.0 H Neut % (Auto) 79.7 H Lymph % (Auto) 9.4 L Donley % (Auto) 6.9 Eos % (Auto) 2.7 Baso % (Auto) 0.3 Lymph # (Auto) 1.09 Donley # (Auto) 0.8 H Eos # (Auto) 0.3 Baso # (Auto) 0.0 Abs Immat Gran (auto) 0.12 H Absolute Neuts (auto) 9.2 H Absolute Nucleated RBC 0.000 Nucleated RBC % 0.0 Puncture Site Left radial ABG pH 7.351 ABG pCO2 52.7 H ABG pO2 74.5 L ABG PO2/FiO2 Ratio 0.75 ABG HCO3 28.5 H ABG O2 Saturation 94.1 L ABG O2 Content 17.7 ABG Base Excess 1.9 A-a Gradient 585.8 Oxyhemoglobin 92.9 Total Hemoglobin 13.5 O2 Delivery Device Non-rebreather mask O2 Liters/Min 15.0 FiO2 100 Sodium 141 Potassium 3.5 Chloride 103 Carbon Dioxide 30 Anion Gap 8 BUN 12 Creatinine 0.73 Estim Creat Clear Calc 84 Estimated GFR > 60 Glucose 91 Calcium 8.4 Magnesium 1.9 Total Bilirubin 0.6 AST 23 ALT 11 Alkaline Phosphatase 92 NT-Pro-B Natriuret Pep 133 H Total Protein 7.0 Albumin 3.1 L Procalcitonin 0.1 Nasal MRSA (PCR) Not detected
[2024-11-17] MEDS: TIZANIDINE HCL 4 MG TABLET PO (16:41)
[2024-11-17] MEDS: traZODone HCL 50 MG TABLET 100 MG PO (21:55)
[2024-11-18] VITALS (24 sets, daily range): BP systolic 105–137; BP diastolic 63–79; PULSE 70–100; RESP 16–24; TEMP 36.4–36.9; O2SAT 92–100
[2024-11-18] MEDS: IPRATROPIUM 0.5 MG/ALBUTEROL SULFATE 2.5 MG AMPUL.NEB 3 ML INHALATION ×5 (00:45→19:59)
[2024-11-18] MEDS: oxyCODONE (*CRX) 5 MG/5 ML ORAL SOLN IR 10 MG PO ×5 (01:06→22:41)
[2024-11-18] MEDS: metroNIDAZOLE 500 MG/ISO 100ML 500 MG/100 ML BAG 75 MG IVPB ×3 (03:27→19:42)
[2024-11-18 05:20] LABS: Basophils Percent Auto 0.4 % (0.2-1.2); Eosinophils Absolute Auto 0.4 K/mm3 (0-0.3); Eosinophils Percent Auto 3.6 % (0-4.4); Hematocrit 36.7 % (42.0-52.0); Hemoglobin 11.6 g/dL (14.0-18.0); Immature Granulocyte Absolute 0.15 K/mm3 (0.00-0.031); Immature Granulocyte Percent A 1.4 % (0-0.5); Lymphocytes Absolute Auto 0.88 K/mm3 (0.9-3.2); Lymphocytes Percent Auto 8.1 % (18.3-44.2); Mean Corpuscular HGB Conc 31.6 g/dl (32-36); Mean Corpuscular Hemoglobin 26.4 pg (26-34); Mean Corpuscular Volume 83.6 fl (80-100); Mean Platelet Volume 10.3 fl (7.4-10.4); Monocytes Absolute Auto 0.6 K/mm3 (0.1-0.6); Monocytes Percent Auto 5.2 % (2.6-8.5); Neutrophils Absolute Auto 8.8 K/mm3 (1.3-6.7); Neutrophils Percent Auto 81.3 % (45.5-73.1); Platelet Count Result 235 k/mm3 (150-375); Red Blood Count 4.39 M/mm3 (4.6-6.20); White Blood Count 10.9 K/mm3 (4.5-10.0)
[2024-11-18 05:34] LABS: Alanine Aminotransferase 9 U/L (6-50); Albumin Level 2.6 g/dL (3.5-5.1); Alkaline Phosphatase 76 U/L (38-126); Anion Gap 5 mmol/L (4-12); Aspartate Amino Transferase 19 U/L (17-59); Bilirubin,Total 0.5 mg/dL (0.2-1.3); Blood Urea Nitrogen 14 mg/dL (9-20); Calcium 7.9 mg/dL (8.4-10.2); Carbon Dioxide 32 mmol/L (22-30); Chloride 103 mmol/L (98-107); Estimated CRCL calculation 73 ml/min; Estimated Glomerular Filt Rate > 60; Glucose 99 mg/dL (65-110); Potassium 3.3 mmol/L (3.4-5.0); Sodium 140 mmol/L (137-145)
[2024-11-18] MEDS: CEFEPIME 2 GM/NS 50 ML 2 GM/50 ML BAG IVPB ×3 (05:53→23:45)
--- NOTE | 2024-11-18 06:07 | PC.NURSE ---
For preservation of current IV, IV antibiotics have been run at slower rate overnight.
[2024-11-18] MEDS: FERROUS SULFATE 325 MG TABLET DR BY MOUTH (08:57)
[2024-11-18] MEDS: buPROPion HCL XL (24 HR) 150 MG TABCR 300 MG BY MOUTH (08:57)
[2024-11-18] MEDS: guaiFENesin 12 HR 600 MG TABCR 1200 MG PO ×2 (08:57→22:42)
[2024-11-18] MEDS: levETIRAcetam 500 MG TABLET PO ×2 (08:58→22:42)
[2024-11-18] MEDS: PANTOPRAZOLE 40 MG TABLET PO ×2 (08:58→22:42)
[2024-11-18] MEDS: MIDODRINE HCL 2.5 MG TABLET PO ×2 (08:58→17:55)
[2024-11-18] MEDS: PREGABALIN (*CRX) 75 MG CAPSULE 150 MG PO ×2 (08:58→17:55)
[2024-11-18] MEDS: PARoxetine 20 MG TABLET 40 MG BY MOUTH (08:58)
[2024-11-18] MEDS: OSELTAMIVIR PHOSPHATE 75 MG CAPSULE PO ×3 (08:59→22:42)
[2024-11-18] MEDS: LIDOCAINE 5% PATCH 1 PATCH TOPICAL (09:00)
--- NOTE | 2024-11-18 10:18 | P.PNIM_ITS ---
Progress Note: A&P Assessment and Plan (1) Influenza A: Code(s): J10.1 - Influenza due to other identified influenza virus with other respiratory manifestations Status: Acute Assessment and Plan: * Influenza A positive. * Negative for COVID, RSV and Influenza B. * Tamiflu 75 mg PO q 12. * WBC 9.8>11.6>10.9. * Sa02 95% high flow nasal cannula 40 liter, Fi02 60%. * Afebrile. (2) Postobstructive pneumonia: Code(s): J18.9 - Pneumonia, unspecified organism Status: Acute Assessment and Plan: * WBC 9.8>11.6>10.9. * CTA chest without PE. * Patchy bibasilar ground opacity suspicious for infection as well as left descending bronchus being largely obstructive with postobstructive consolidation noted as well. * Continue Cefepime, Levofloxacin, and Flagyl. * Duoneb q 6. * Guaifenesin 1,200 mg PO q 12. * Cornet flutter valve to aid in sputum expectoration. * CPT * Dr. Mosley [employer] Intern following, appreciate recommendations. * Repeat CT scan in 3-6 weeks. * Echocardiogram ordered. (3) COPD (chronic obstructive pulmonary disease): Qualifiers: COPD type: unspecified COPD Qualified Code(s): J44.9 - Chronic obstructive pulmonary disease, unspecified Code(s): J44.9 - Chronic obstructive pulmonary disease, unspecified Status: Acute Assessment and Plan: * Duoneb q6 * Continue Cefepime, Levofloxacin, and Flagyl. * Guaifenesin 1,200 mg PO q 12. * Pulmonology following, appreciate recommendations. * Repeat Chest X-ray this morning showed: FINDINGS: There are airspace opacities in all right lung zones and in left lower lobe. There are scattered nodules in left upper lobe. No pleural effusion or pneumothorax. The heart size is normal. Retained epidural electrodes are noted. There are surgical clips at right lung apex. IMPRESSION: 1. Worsened diffuse lung disease, consistent with pneumonia. (4) Hypokalemia: Code(s): E87.6 - Hypokalemia Status: Acute Assessment and Plan: * Potassium 3.3 * Potassium Chloride 40 meq PO x 1. * Monitor labs. Plan Patient wishes to be full code. Home medications restarted as appropriate. Holding TOUR [employer] aspirin for now SCDs. Subjective Date/time seen: 11/18/24 10:18 Interval history: Patient reports shortness of breath at rest at times. Patient reports coughing up brown sputum. Patient denies chest pain, palpitations, headache, dizziness, nausea, or vomiting. Daughter at bedside. Review of Systems Review of Systems: All systems reviewed & are unremarkable except as noted in HPI and below Exam Const: General: comfortable and no acute distress Resp: Effort & Inspection: normal respiratory effort Auscultation: rhonchi Cardio: Rate: regular rate Rhythm: regular rhythm Other: Telemetry SR 78. GI: GI Palp: Yes Soft to palpation Auscultation: normal bowel sounds Neuro: Speech: normal speech Extrem: General: no pedal edema Psych: Mental Status: mental status grossly normal Affect: normal affect Objective Data Vital Signs Vital Signs: Vital Signs - 24 hr 11/17/24 11:54 11/17/24 12:00 11/17/24 12:00 Temperature 97.4 F L Pulse Rate 89 76 Respiratory Rate 24 H 20 Blood Pressure 115/69 Pulse Oximetry 98 98 Oxygen Delivery High Flow Therapy with Na Oxygen Flow Rate 45 Fraction of Inspired Oxygen 90 11/17/24 12:00 11/17/24 14:00 11/17/24 15:52 Temperature 98.3 F Pulse Rate 74 82 85 Respiratory Rate 20 Blood Pressure 107/67 Pulse Oximetry 95 Oxygen Delivery Oxygen Flow Rate Fraction of Inspired Oxygen 11/17/24 16:00 11/17/24 16:00 11/17/24 16:03 Temperature Pulse Rate 86 Respiratory Rate Blood Pressure Pulse Oximetry 98 98 Oxygen Delivery High Flow Therapy with Na High Flow Therapy with Na Oxygen Flow Rate 45 40 Fraction of Inspired Oxygen 80 80 11/17/24 16:03 11/17/24 16:15 11/17/24 18:00 Temperature Pulse Rate 82 89 81 Respiratory Rate 22 H 20 Blood Pressure Pulse Oximetry Oxygen Delivery Oxygen Flow Rate Fraction of Inspired Oxygen 11/17/24 19:51 11/17/24 20:00 11/17/24 21:26 Temperature 98.4 F Pulse Rate 77 76 76 Respiratory Rate 20 22 H Blood Pressure 107/70 Pulse Oximetry 97 Oxygen Delivery Oxygen Flow Rate Fraction of Inspired Oxygen 11/17/24 21:29 11/17/24 21:35 11/17/24 21:40 Temperature Pulse Rate 74 Respiratory Rate 20 Blood Pressure Pulse Oximetry 98 97 Oxygen Delivery High Flow Therapy with Na High Flow Therapy with Na Oxygen Flow Rate 40 40 Fraction of Inspired Oxygen 70 60 11/17/24 22:00 11/17/24 23:00 11/18/24 00:00 Temperature 98.5 F Pulse Rate 76 70 Respiratory Rate 18 Blood Pressure 105/63 Pulse Oximetry 96 95 Oxygen Delivery High Flow Therapy with Na Oxygen Flow Rate 40 Fraction of Inspired Oxygen 60 11/18/24 00:00 11/18/24 00:45 11/18/24 00:53 Temperature Pulse Rate 72 71 73 Respiratory Rate 20 20 Blood Pressure Pulse Oximetry Oxygen Delivery Oxygen Flow Rate Fraction of Inspired Oxygen 11/18/24 01:00 11/18/24 02:00 11/18/24 04:00 Temperature Pulse Rate 71 Respiratory Rate Blood Pressure Pulse Oximetry 95 92 Oxygen Delivery High Flow Therapy with Na High Flow Therapy with Na Oxygen Flow Rate 40 40 Fraction of Inspired Oxygen 60 60 11/18/24 04:00 11/18/24 04:00 11/18/24 06:00 Temperature 98.4 F Pulse Rate 73 72 74 Respiratory Rate 20 Blood Pressure 125/75 Pulse Oximetry 95 Oxygen Delivery Oxygen Flow Rate Fraction of Inspired Oxygen 11/18/24 07:56 11/18/24 07:56 11/18/24 08:00 Temperature 98.4 F Pulse Rate 77 77 Respiratory Rate 16 24 H Blood Pressure 126/76 Pulse Oximetry 95 97 Oxygen Delivery High Flow Therapy with Na Oxygen Flow Rate 40 Fraction of Inspired Oxygen 60 11/18/24 08:11 11/18/24 09:33 Temperature Pulse Rate 77 Respiratory Rate 16 Blood Pressure Pulse Oximetry 93 Oxygen Delivery High Flow Nasal Cannula Oxygen Flow Rate 10 Fraction of Inspired Oxygen Intake/Output Intake/Output: Intake & Output 11/15/24 11/16/24 11/17/24 11/18/24 23:59 23:59 23:59 23:59 Intake Total 1230 2602 1280 300 Output Total 2 129 8156 Balance 1228 8055 -981 300 Meds/Results Medications: Active Medications Generic Name Dose Route Start Last Admin Trade Name Freq PRN Reason Stop Dose Admin Acetaminophen 650 mg 11/13/24 21:48 11/17/24 16:41 Acetaminophen 325 Mg Tablet PO 650 mg Q4H PRN Administration Mild Pain (1-3) or Fever Albuterol/Ipratropium 3 ml 11/17/24 08:00 11/18/24 07:56 Ipratropium 0.5 Mg/Albuterol Sulfate 2.5 Mg Ampul.Neb 3 Ml INHALATION 3 ml Q4HRT DANE Administration Bupropion HCl 300 mg 11/14/24 09:00 11/18/24 08:57 Bupropion Hcl Xl (24 Hr) 150 Mg Tabcr BY MOUTH 300 mg DAILY DANE Administration Ferrous Sulfate 325 mg 11/14/24 09:00 11/18/24 08:57 Ferrous Sulfate [address] BY MOUTH 325 mg DAILY DANE Administration Guaifenesin 1,200 mg 11/14/24 10:35 11/18/24 08:57 Guaifenesin 12 Hr 600 Mg Tabcr PO 1,200 mg Q12HR DANE Administration Metronidazole 500 mg in 100 mls @ 100 mls/hr 11/14/24 03:00 11/18/24 04:45 Flagyl 500 Mg/Iso Soln 100 Ml IVPB Infused Q8H DANE Infusion Cefepime HCl 2 gm in 50 mls @ 100 mls/hr 11/17/24 06:00 11/18/24 06:55 Maxipime 2 Gm/Ns 50 Ml IVPB Infused Q8HR DANE Infusion Levofloxacin/Dextrose 750 mg in 150 mls @ 100 mls/hr 11/17/24 12:00 11/17/24 12:19 Levaquin 750 Mg/D5w 150 Ml IVPB 100 mls/hr DAILY DANE Administration Levetiracetam 500 mg 11/14/24 13:35 11/18/24 08:58 Levetiracetam 500 Mg Tablet PO 500 mg Q12HR DAEN Administration Lidocaine 1 patch 11/14/24 09:00 11/18/24 09:00 Lidocaine 5% Patch TOPICAL 1 patch DAILY DANE Administration Lorazepam 0.5 mg 11/13/24 21:34 Lorazepam (*Crx) 0.5 Mg Tablet PO ONCE PRN Agitation Lorazepam 0.5 mg 11/14/24 02:03 Lorazepam (*Crx) 0.5 Mg Tablet PO BID PRN anxiety Midodrine 2.5 mg 11/14/24 09:00 11/18/24 08:58 Midodrine Hcl 2.5 Mg Tablet PO 2.5 mg BID DANE Administration Oseltamivir Phosphate 75 mg 11/14/24 02:20 11/18/24 08:59 Oseltamivir Phosphate 75 Mg Capsule PO 11/19/24 02:19 75 mg Q12HR DANE Administration Oxycodone HCl 10 mg 11/14/24 10:50 11/18/24 09:05 Oxycodone (*Crx) 5 Mg/5 Ml Oral Soln Ir PO 10 mg Q4HR DANE Administration Pantoprazole Sodium 40 mg 11/14/24 09:00 11/18/24 08:58 Pantoprazole 40 Mg Tablet PO 40 mg Q12HR DANE Administration Paroxetine HCl 40 mg 11/14/24 09:00 11/18/24 08:58 Paroxetine 20 Mg Tablet BY MOUTH 40 mg QAM DANE Administration Pregabalin 150 mg 11/14/24 09:00 11/18/24 08:58 Pregabalin (*Crx) 75 Mg Capsule PO 150 mg BID DANE Administration Tizanidine HCl 4 mg 11/14/24 02:03 11/17/24 16:41 Tizanidine Hcl 4 Mg Tablet PO 4 mg TID PRN Administration muscle spasticity Trazodone HCl 100 mg 11/14/24 21:00 11/17/24 21:55 Trazodone Hcl 50 Mg Tablet PO 100 mg QHS DANE Administration Radiology Results: ITS Impressions Chest CTA 11/13/24 21:03 IMPRESSION: No pulmonary embolus. No thoracic aortic dissection. Obstruction of the left lower lobe bronchus with postobstructive consolidation for which direct visualization is recommended. Additional findings within the remainder of the left as well as the remaining right lung for which infectious etiology is favored. Chest X-Ray 11/17/24 06:14 IMPRESSION: 1. Worsened diffuse lung disease, consistent with pneumonia. Labs Labs: Laboratory Results - last 24 hr 11/18/24 04:38 WBC 10.9 H RBC 4.39 L Hgb 11.6 L Hct 36.7 L MCV 83.6 MCH 26.4 MCHC 31.6 L RDW 16.0 H Plt Count 235 MPV 10.3 Immature Gran % (Auto) 1.4 H Neut % (Auto) 81.3 H Lymph % (Auto) 8.1 L [place] % (Auto) 5.2 Eos % (Auto) 3.6 Baso % (Auto) 0.4 Lymph # (Auto) 0.88 L [place] # (Auto) 0.6 Eos # (Auto) 0.4 H Baso # (Auto) 0.0 Abs Immat Gran (auto) 0.15 H Absolute Neuts (auto) 8.8 H Absolute Nucleated RBC 0.000 Nucleated RBC % 0.0 Sodium 140 Potassium 3.3 L Chloride 103 Carbon Dioxide 32 H Anion Gap 5 BUN 14 Creatinine 0.85 Estim Creat Clear Calc 73 Estimated GFR > 60 Glucose 99 Calcium 7.9 L Magnesium 2.0 Total Bilirubin 0.5 AST 19 ALT 9 Alkaline Phosphatase 76 Total Protein 6.0 L Albumin 2.6 L Quality VTE Prophylaxis VTE prophylaxis: mechanical ordered
--- NOTE | 2024-11-18 10:34 | PM.PNPUL ---
Progress Note: A&P Assessment and Plan (1) Influenza A: Code(s): J10.1 - Influenza due to other identified influenza virus with other respiratory manifestations Status: Acute Assessment and Plan: Patient has influenza a pneumonia. Plan: I have discontinued his Solu-Medrol. Patient is on Tamiflu day 1. Will continue For at least 5 days. patient is on room air at this time with with a goal saturation 90-94%. 11/15/24: patient tells me he is much improved. states his breathing is back to normal. His cough is normal. He has no phlegm, hemoptysis. He is afebrile. White blood cell count 11.3. Currently is on room air with saturations 92%. Plan: Patient is improving. continue Tamiflu, day 2. 11/16/24: Patient tells me he is breathing normal and his cough is normal. He is unable to expectorate phlegm. Worsening oxygen requirements and currently on 3 L with saturations 90%. He is afebrile. White blood cell count 9.8, creatinine 0.82. Plan: patient does not feels well as he did yesterday. Continue Tamiflu, day 3. I will check a chest x-ray in the morning. 11/17/24: At 3:00 a.m. this morning the patient had respiratory distress and hypoxemia. See event note by hospitalist. He had audible mucus congestion and white crackles throughout the lungs. Chest x-ray showed worsening right-sided interstitial alveolar infiltrates. ABG was 7.35/53/75 on 15 L non-rebreather. BNP was 133. Procalcitonin 0.1. Patient was treated with bronchodilators, IV Lasix, antibiotics changed to vancomycin and cefepime with continuation of Flagyl. Patient ultimately required Vapotherm and was transferred to the IMU. Currently the patient states his breathing is worsening get short of breath at rest. He has increased phlegm production that is dark red. He is currently on the Vapotherm 45 L, 90% FiO2 with saturations 97%. His white blood cell count is 11.6, is creatinine is 0.73. Plan: Continue Tamiflu day 4. Patient with new right-sided infiltrates despite being treated with ceftriaxone, azithromycin and Flagyl. MRSA nasal swab negative. This could represent a healthcare associated pneumonia and he has been switched to Cefepime, levofloxacin both day 1, and continuation of Flagyl, day 4. 11/18/2024: Overall the patient tells me that he is the same as yesterday. His cough and phlegm production persist and are unchanged. He has no hemoptysis. He is afebrile. White blood cell count 10.9, creatinine 0.85. When I enter the room he was on Vapotherm 40 L 60% FiO2 with saturations 95%. I placed him on 15 L nasal cannula and was able to decrease him to 10 L with saturations 93%. Plan: Continue Tamiflu day 5. Given the severity of his disease will continue for a total of 10 days. Patient with new right-sided infiltrates despite being treated with ceftriaxone, azithromycin and Flagyl. MRSA nasal swab negative. This could represent a healthcare associated pneumonia and he has been switched to Cefepime, levofloxacin both day 2, and continuation of Flagyl, day 5. Goal saturation 90-94%. Discussed with 2 daughters in the room and Christin Mcwilliams. Will follow with you. (2) Respiratory failure with hypoxia and hypercapnia: Code(s): J96.91 - Respiratory failure, unspecified with hypoxia; J96.92 - Respiratory failure, unspecified with hypercapnia Status: Acute Assessment and Plan: Patient is on no home oxygen. 18:30 RA, sats 94 11/14 06:45 RA, sats 94 11/14 19:45 RA, sats 91 11/15 08:00 RA, sasts 92 11/15 13:30 2 L NC, sats 92 11/15 20:54 1 L NC, sats 91 11/16 7:43 2.5 L NC, sats 90 11/16 20:00 2.5 L NC, sats 92 11/17 05:13 ABG on 15 L non-rebreather mask 7.35/53/75. 11/17 06:00 vapotherm 45 L, 90% FIO2, sats 92% 11/17 20:00 vapotherm 40 L 60% FIO2, sats 97% 11/18 8:00 vapotherm 40 L 60% FIO2, sats 95%, 11/18 9:30 to nasal cannula 10 L with saturations 93%. 11/17/24: Patient tells me he is comfortable right now on the Vapotherm. We talked about BiPAP he says he is feeling breathing fine at this time and is worried that he will be claustrophobic with the BiPAP. If he needs a BiPAP he is in agreement to try this. We talked about intubation and the patient has been intubated twice in the past and says he would be okay for intubation and mechanical ventilation if the need should arise. He is full code. (3) COPD (chronic obstructive pulmonary disease): Qualifiers: COPD type: unspecified COPD Qualified Code(s): J44.9 - Chronic obstructive pulmonary disease, unspecified Code(s): J44.9 - Chronic obstructive pulmonary disease, unspecified Status: Acute Assessment and Plan: GOLD grade 2 COPD Patient with a 50 pack year tobacco use, currently smoking 1 pack over 3 days. PFTs on 01/20/2021 with a moderately severe obstructive abnormality with an FEV1 of 1.71 L, 50% predicted, ratio 52%, normal lung volumes, moderately decreased DLCO that normalized when corrected for alveolar volume. CT scan of the chest with emphysema on 02/07/2007, 06/27/2021, 02/06/2022, 07/10/2024, and most recently on 11/13/2024 with moderate apical predominant paraseptal emphysema and mild apical predominant centrilobular emphysema. Currently not on supplemental oxygen at home. Eosinophil on 11/13/2024 is 33 per micro L Plan: patient is currently not wheezing any longer and I will discontinue his systemic steroids because he has influenza a infection. I will continue DuoNebs q.6 hours. he is concurrently being treated for community acquired pneumonia with possible post obstruction with ceftriaxone, azithromycin and Flagyl. Will continue for now. 11/15: No evidence of COPD exacerbation. plan: I will discontinue nebulizers and continue his home trelegy 100. Continue guaifenesin 1200 mg p.o. b.i.d.. 11/16: No wheezing. He is more congested with phlegm. Plan: Continue trilogy 100, guaifenesin 1200 mg p.o. b.i.d. will add Cornet flutter valve today. 11/17/24: No wheezes today. Plan: I will change his trelegy 100 to DuoNebs q.4 hours. 11/18/24: mild expiratory wheezes today. Plan: Will continue DuoNebs q.4 hours as tolerated. patient is stable at this time and will not initiate inhaled or systemic steroids as he has influenza pneumonia. alpha 1 anti trypsin genotype and level ordered. Follow him clinically. (4) Postobstructive pneumonia: Code(s): J18.9 - Pneumonia, unspecified organism Status: Acute Assessment and Plan: Patient with a normal CT scan 07/10/2024 and now with multifocal nodular consolidations with influenza pneumonia. Plan: I will continue to treat the patient for influenza pneumonia with Tamiflu and possible bacterial infection with ceftriaxone, azithromycin and Flagyl. Overall I will continue these treatments until the patient is recovered and repeat a CT scan in the future to reassess his infiltrates. I will place the patient on guaifenesin 1200 mg p.o. b.i.d. and had a Cornet flutter valve to aid in sputum expectoration. 11/15: Afebrile. White blood cell count 11.3. Clinically is improving. Plan: Continue treatment for influenza pneumonia with Tamiflu and possible bacterial infection with ceftriaxone day 3, azithromycin day 3 and Flagyl day 2. Will treat patient aggressively for influenza and possible bacterial pneumonia and eventually repeat CT scan in approximately 3-6 weeks. 11/16/24: afebrile, white blood cell count 9.8. Somewhat worse today. Plan: Continue ceftriaxone day 4, azithromycin day 4 and Flagyl day 3. Repeat chest x-ray in the morning. 11/17/24: As above, patient now being treated with cefepime, levofloxacin and Flagyl. Subjective Date/time seen: 11/18/24 10:34 Interval history: 11/14/2024: This is a new pulmonary consult for influenza and possible post obstructive pneumonia. 64-year-old with a history of tobacco use, COPD, stage I A lung cancer status post right upper lobectomy on , gastric bypass 2000, GERD. regarding his lung cancer the patient had a right upper lobectomy with leg negative lymph nodes on 01/23/2020. He received no additional treatment. He is followed by Dr. Quinten mccurdy and had a CT scan on 07/10/2024 with emphysema no evidence of malignancy with recommendation to repeat in 1 year. Regarding his COPD. Patient smoked tobacco from age 14 to current at 1 pack per day for a total of 50 pack years. He was exposed to secondhand smoke from his father. 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 He did wear respiratory protection when he grinds id. He retired 4-5 years ago. He is not on any home oxygen. He is maintained on trelegy 100 and p.r.n. albuterol. patient tells me he presents with 3 weeks history of cough and phlegm which was brown. Two weeks worth of shortness of breath. Symptoms actually got better until about 3 days ago when his cough and shortness of breath got worse. His phlegm production increased. He presented to the emergency room on 11/13/2024. His blood pressure was 132/ 81, heart rate 71, respirations 20, room air saturations 94%. White blood cell count 11.1, creatinine 0.81, D-dimer 0.83. Influenza a RT PCR positive. Chest x-ray showed left lower lobe consolidation. CT angiogram of the chest showed left lung nodular consolidations throughout. Panlobular emphysema. Left lower lobe was completely consolidated with cutoff of the left lower lobe bronchi. There are no pleural effusions. patient was treated with Tamiflu, ceftriaxone, azithromycin, Solu-Medrol and Flagyl. 11/14/2024. Today the patient states that he is breathing better. He says he is breathing 50% back to his normal. His cough is 50% better and his wheezing is 60% better. Currently the patient is on room air with saturations 92%. 11/15/24: patient tells me he is much improved. states his breathing is back to normal. His cough is normal. He has no phlegm, hemoptysis. He is afebrile. White blood cell count 11.3. Currently is on room air with saturations 92%. 11/16/24: Patient tells me he is breathing normal and his cough is normal. He is unable to expectorate phlegm. Worsening oxygen requirements and currently on 3 L with saturations 90%. He is afebrile. White blood cell count 9.8, creatinine 0.82. 11/17/24: At 3:00 a.m. this morning the patient had respiratory distress and hypoxemia. See event note by hospitalist. He had audible mucus congestion and white crackles throughout the lungs. Chest x-ray showed worsening right-sided interstitial alveolar infiltrates. ABG was 7.35/53/75 on 15 L non-rebreather. BNP was 133. Procalcitonin 0.1. Patient was treated with bronchodilators, IV Lasix, antibiotics changed to vancomycin and cefepime with continuation of Flagyl. Patient ultimately required Vapotherm and was transferred to the IMU. Currently the patient states his breathing is worsening get short of breath at rest. He has increased phlegm production that is dark red. He is currently on the Vapotherm 45 L, 90% FiO2 with saturations 97%. His white blood cell count is 11.6, is creatinine is 0.73. 11/18/2024: Overall the patient tells me that he is the same as yesterday. His cough and phlegm production persist and are unchanged. He has no hemoptysis. He is afebrile. White blood cell count 10.9, creatinine 0.85. When I enter the room he was on Vapotherm 40 L 60% FiO2 with saturations 95%. I placed him on 15 L nasal cannula and was able to decrease him to 10 L with saturations 93%. 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 Personal history of right-sided lung cancer post right middle lobectomy in 2019 with negative margins. TECHNIQUE: Computed tomographic angiography (CTA) of the chest was performed with 100 mL Omnipaque-350 intravenous contrast. The dose-length product was 399.78 mGy-cm. Maximum intensity projection 3D-reconstructions of the aorta and other arteries were constructed by the technologist on a separate workstation. COMPARISON: 07/10/2024 FINDINGS/OBSERVATIONS: PULMONARY ARTERIES: No filling defect is identified within the main or proximal pulmonary artery. The main pulmonary artery is not enlarged. THORACIC AORTA: No aneurysmal dilatation or dissection is present. The great vessels are intact LUNGS: Patchy groundglass opacification detected bilaterally, possibly infectious in origin. The left descending bronchus is largely obscured for which direct visualization is recommended. Post obstructive consolidation is noted, involving the entirety of the left lower lobe. Panlobular emphysematous disease is also noted. Biapical scarring is present. Postoperative change within the right hilum, consistent with patient's history. MEDIASTINUM: Mediastinal lymphadenopathy is identified within the aortopulmonary window and the left paratracheal region. The largest lymph node is within the left paratracheal region measuring 12 mm in short axis dimension. Multiple calcified lymph nodes are also detected within the mediastinum, suggesting prior granulomatous disease. BONES OF THE CHEST: No acute fracture. No significant degenerative disease. No lytic or blastic lesions. Leads from a stimulator device are identified within the canal. HEART: The heart is borderline enlarged, without pericardial effusion. IMPRESSION: No pulmonary embolus. No thoracic aortic dissection. Obstruction of the left lower lobe bronchus with postobstructive consolidation for which direct visualization is recommended. Additional findings within the remainder of the left as well as the remaining right lung for which infectious etiology is favored. 07/10/24: Clinical Indication: Lung cancer CT Scan of the Chest with Contrast: Technique: Contiguous sections were acquired throughout the chest after intravenous administration of 75 cc of Omnipaque 350. Dose reduction technique was used on this scan by utilizing automated exposure control and iterative reconstruction technique. The dose-length product (DLP) was 178.75 mGy-cm. COMPARISON: 02/06/2022 Findings: There is no evidence of any significant mediastinal, hilar or axillary lymphadenopathy. There is no filling defect in the pulmonary arterial tree to suggest pulmonary embolus. There is no evidence of aortic dissection or aneurysm. There is no evidence of pleural or pericardial effusion. Status post right middle lobectomy. There is biapical scarring, unchanged. Paraseptal emphysema is unchanged, predominantly in the upper lobes. Stable scarring at the inferior right upper lobe. There is left basilar consolidation, presumably atelectasis. Images through the upper abdomen reveal probable prior bariatric surgery. There are mild compression fractures of L1 and L2, age indeterminate. Impression: No evidence of active malignancy or metastatic disease. Status post right middle lobectomy. Emphysema and scarring, as above. Probable left basilar atelectasis versus possibly pneumonia. Compression fractures of L1-L2, age indeterminate, new since prior exam. 06/17/2021 This is a pulmonary function test with pre and post-bronchodilator spirometry, plethysmography and diffusing capacity. The test was performed and results interpreted in accordance with the 2019 and 2005 ATS/ERS Task Force guidelines respectively using the Global Lung Function Initiative-2012 reference equations. Patient demonstrated good effort and cooperation. Reproducibility criteria were met. The quality of the pre bronchodilator spirometry maneuver was Grade A and post bronchodilator spirometry maneuver was Grade A. Findings: Spirometry: there is decreased maximal expiratory airflow at all lung volumes with concave expiratory flow tracing. The contour of the inspiratory flow tracing is normal. The pre bronchodilator FVC is 3.31 L, 75% predicted. The pre bronchodilator FEV1 is 1.71 L, 50% predicted. The FEV1: FVC ratio is 52%. The post bronchodilator FVC is 3.44 L, representing a 4% increase. The post bronchodilator FEV1 is 1.79 L, representing a 5% increase. Plethysmography: The total lung capacity is 5.86 L, 86% predicted. The functional residual capacity is 3.47 L, 98% predicted. The residual volume is 2.56 L, 115% predicted. Diffusion capacity: The absolute diffusion capacity is 14.6, 53% predicted. The diffusing capacity corrected for alveolar volume is 3.41, 80% predicted. Impression: There is a moderately severe obstructive abnormality without significant improvement after inhaling a single dose of albuterol. The lung volumes are normal. The absolute diffusing capacity is moderately decreased and normalizes when corrected for alveolar volume. There are no prior studies for comparison Review of Systems Constitutional: Constitutional: Reports no additional constitutional complaints Eyes: Eyes: Reports no additional eye complaints ENT: Reports system reviewed and no additional complaints, except as documented Cardiovascular: Cardiovascular: Reports no additional cardiovascular complaints Respiratory: Respiratory: Reports no additional respiratory complaints Gastrointestinal: Gastrointestinal: Reports no additional gastrointestinal complaints Musculoskeletal: Musculoskeletal: Reports no additional musculoskeletal complaints Neurologic: Reports system reviewed and no additional complaints, except as documented Psychiatric: Psychiatric: Reports no additional psychiatric complaints Endocrine: Endocrine: Reports no additional endocrine complaints Hematologic/Lymphatic: Hematologic/Lymphatic: Reports no additional hematologic/lymphatic complaints Allergic/Immunologic: Allergic/Immunologic: Reports no additional allergic/immunologic complaints Exam Const: General: cooperative, healthy appearing and comfortable Orientation/consciousness: oriented to person, oriented to place and oriented to time HENMT: Head: normal to inspection Ears: hearing grossly normal bilaterally Eyes: General: appearance normal, both eyes and all related structures Neck: Neck: normal visual inspection Chest: Chest palpation & inspection: normal inspection of the chest Resp: Effort & Inspection: normal respiratory effort and able to speak in complete sentences Auscultation: no crackles, no rales, rhonchi, no wheezes and diminished lung sounds Other: Coarse rhonchi throughout Cardio: Jugular venous distension: no JVD GI: Inspection: normal to inspection Skin: General skin exam: normal color Neuro: General: oriented to person, oriented to place and oriented to time Extrem: General: normal to inspection and no edema Psych: Appearance: grossly normal Objective Data Vital Signs Vital Signs: Vital Signs - 24 hr 11/17/24 11:54 11/17/24 12:00 11/17/24 12:00 Temperature 36.3 C L Pulse Rate 89 76 Respiratory Rate 24 H 20 Blood Pressure 115/69 Pulse Oximetry 98 98 Oxygen Delivery High Flow Therapy with Na Oxygen Flow Rate 45 Fraction of Inspired Oxygen 90 11/17/24 12:00 11/17/24 14:00 11/17/24 15:52 Temperature 36.8 C Pulse Rate 74 82 85 Respiratory Rate 20 Blood Pressure 107/67 Pulse Oximetry 95 Oxygen Delivery Oxygen Flow Rate Fraction of Inspired Oxygen 11/17/24 16:00 11/17/24 16:00 11/17/24 16:03 Temperature Pulse Rate 86 Respiratory Rate Blood Pressure Pulse Oximetry 98 98 Oxygen Delivery High Flow Therapy with Na High Flow Therapy with Na Oxygen Flow Rate 45 40 Fraction of Inspired Oxygen 80 80 11/17/24 16:03 11/17/24 16:15 11/17/24 18:00 Temperature Pulse Rate 82 89 81 Respiratory Rate 22 H 20 Blood Pressure Pulse Oximetry Oxygen Delivery Oxygen Flow Rate Fraction of Inspired Oxygen 11/17/24 19:51 11/17/24 20:00 11/17/24 21:26 Temperature 36.9 C Pulse Rate 77 76 76 Respiratory Rate 20 22 H Blood Pressure 107/70 Pulse Oximetry 97 Oxygen Delivery Oxygen Flow Rate Fraction of Inspired Oxygen 11/17/24 21:29 11/17/24 21:35 11/17/24 21:40 Temperature Pulse Rate 74 Respiratory Rate 20 Blood Pressure Pulse Oximetry 98 97 Oxygen Delivery High Flow Therapy with Na High Flow Therapy with Na Oxygen Flow Rate 40 40 Fraction of Inspired Oxygen 70 60 11/17/24 22:00 11/17/24 23:00 11/18/24 00:00 Temperature 36.9 C Pulse Rate 76 70 Respiratory Rate 18 Blood Pressure 105/63 Pulse Oximetry 96 95 Oxygen Delivery High Flow Therapy with Na Oxygen Flow Rate 40 Fraction of Inspired Oxygen 60 11/18/24 00:00 11/18/24 00:45 11/18/24 00:53 Temperature Pulse Rate 72 71 73 Respiratory Rate 20 20 Blood Pressure Pulse Oximetry Oxygen Delivery Oxygen Flow Rate Fraction of Inspired Oxygen 11/18/24 01:00 11/18/24 02:00 11/18/24 04:00 Temperature Pulse Rate 71 Respiratory Rate Blood Pressure Pulse Oximetry 95 92 Oxygen Delivery High Flow Therapy with Na High Flow Therapy with Na Oxygen Flow Rate 40 40 Fraction of Inspired Oxygen 60 60 11/18/24 04:00 11/18/24 04:00 11/18/24 06:00 Temperature 36.9 C Pulse Rate 73 72 74 Respiratory Rate 20 Blood Pressure 125/75 Pulse Oximetry 95 Oxygen Delivery Oxygen Flow Rate Fraction of Inspired Oxygen 11/18/24 07:56 11/18/24 07:56 11/18/24 08:00 Temperature 36.9 C Pulse Rate 77 77 Respiratory Rate 16 24 H Blood Pressure 126/76 Pulse Oximetry 95 97 Oxygen Delivery High Flow Therapy with Na Oxygen Flow Rate 40 Fraction of Inspired Oxygen 60 11/18/24 08:11 11/18/24 09:33 Temperature Pulse Rate 77 Respiratory Rate 16 Blood Pressure Pulse Oximetry 93 Oxygen Delivery High Flow Nasal Cannula Oxygen Flow Rate 10 Fraction of Inspired Oxygen Intake/Output Intake/Output: Intake & Output 11/15/24 11/16/24 11/17/24 11/18/24 23:59 23:59 23:59 23:59 Intake Total 1230 2602 1280 300 Output Total 2 425 2225 Balance 1228 7847 -671 300 Meds/Results Medications: Active Medications Generic Name Dose Route Start Last Admin Trade Name Freq PRN Reason Stop Dose Admin Acetaminophen 650 mg 11/13/24 21:48 11/17/24 16:41 Acetaminophen 325 Mg Tablet PO 650 mg Q4H PRN Administration Mild Pain (1-3) or Fever Albuterol/Ipratropium 3 ml 11/17/24 08:00 11/18/24 07:56 Ipratropium 0.5 Mg/Albuterol Sulfate 2.5 Mg Ampul.Neb 3 Ml INHALATION 3 ml Q4HRT DANE Administration Bupropion HCl 300 mg 11/14/24 09:00 11/18/24 08:57 Bupropion Hcl Xl (24 Hr) 150 Mg Tabcr BY MOUTH 300 mg DAILY DANE Administration Ferrous Sulfate 325 mg 11/14/24 09:00 11/18/24 08:57 Ferrous Sulfate [address] BY MOUTH 325 mg DAILY DANE Administration Guaifenesin 1,200 mg 11/14/24 10:35 11/18/24 08:57 Guaifenesin 12 Hr 600 Mg Tabcr PO 1,200 mg Q12HR DANE Administration Metronidazole 500 mg in 100 mls @ 100 mls/hr 11/14/24 03:00 11/18/24 04:45 Flagyl 500 Mg/Iso Soln 100 Ml IVPB Infused Q8H DANE Infusion Cefepime HCl 2 gm in 50 mls @ 100 mls/hr 11/17/24 06:00 11/18/24 06:55 Maxipime 2 Gm/Ns 50 Ml IVPB Infused Q8HR DANE Infusion Levofloxacin/Dextrose 750 mg in 150 mls @ 100 mls/hr 11/17/24 12:00 11/17/24 12:19 Levaquin 750 Mg/D5w 150 Ml IVPB 100 mls/hr DAILY DANE Administration Levetiracetam 500 mg 11/14/24 13:35 11/18/24 08:58 Levetiracetam 500 Mg Tablet PO 500 mg Q12HR DANE Administration Lidocaine 1 patch 11/14/24 09:00 11/18/24 09:00 Lidocaine 5% Patch TOPICAL 1 patch DAILY DANE Administration Lorazepam 0.5 mg 11/13/24 21:34 Lorazepam (*Crx) 0.5 Mg Tablet PO ONCE PRN Agitation Lorazepam 0.5 mg 11/14/24 02:03 Lorazepam (*Crx) 0.5 Mg Tablet PO BID PRN anxiety Midodrine 2.5 mg 11/14/24 09:00 11/18/24 08:58 Midodrine Hcl 2.5 Mg Tablet PO 2.5 mg BID DANE Administration Oseltamivir Phosphate 75 mg 11/14/24 02:20 11/18/24 08:59 Oseltamivir Phosphate 75 Mg Capsule PO 11/19/24 02:19 75 mg Q12HR DANE Administration Oxycodone HCl 10 mg 11/14/24 10:50 11/18/24 09:05 Oxycodone (*Crx) 5 Mg/5 Ml Oral Soln Ir PO 10 mg Q4HR DANE Administration Pantoprazole Sodium 40 mg 11/14/24 09:00 11/18/24 08:58 Pantoprazole 40 Mg Tablet PO 40 mg Q12HR DANE Administration Paroxetine HCl 40 mg 11/14/24 09:00 11/18/24 08:58 Paroxetine 20 Mg Tablet BY MOUTH 40 mg QAM DANE Administration Pregabalin 150 mg 11/14/24 09:00 11/18/24 08:58 Pregabalin (*Crx) 75 Mg Capsule PO 150 mg BID DANE Administration Tizanidine HCl 4 mg 11/14/24 02:03 11/17/24 16:41 Tizanidine Hcl 4 Mg Tablet PO 4 mg TID PRN Administration muscle spasticity Trazodone HCl 100 mg 11/14/24 21:00 11/17/24 21:55 Trazodone Hcl 50 Mg Tablet PO 100 mg QHS DANE Administration Radiology Results: ITS Impressions Chest CTA 11/13/24 21:03 IMPRESSION: No pulmonary embolus. No thoracic aortic dissection. Obstruction of the left lower lobe bronchus with postobstructive consolidation for which direct visualization is recommended. Additional findings within the remainder of the left as well as the remaining right lung for which infectious etiology is favored. Chest X-Ray 11/17/24 06:14 IMPRESSION: 1. Worsened diffuse lung disease, consistent with pneumonia. Labs Labs: Laboratory Results - last 24 hr 11/18/24 04:38 WBC 10.9 H RBC 4.39 L Hgb 11.6 L Hct 36.7 L MCV 83.6 MCH 26.4 MCHC 31.6 L RDW 16.0 H Plt Count 235 MPV 10.3 Immature Gran % (Auto) 1.4 H Neut % (Auto) 81.3 H Lymph % (Auto) 8.1 L Nash % (Auto) 5.2 Eos % (Auto) 3.6 Baso % (Auto) 0.4 Lymph # (Auto) 0.88 L Nash # (Auto) 0.6 Eos # (Auto) 0.4 H Baso # (Auto) 0.0 Abs Immat Gran (auto) 0.15 H Absolute Neuts (auto) 8.8 H Absolute Nucleated RBC 0.000 Nucleated RBC % 0.0 Sodium 140 Potassium 3.3 L Chloride 103 Carbon Dioxide 32 H Anion Gap 5 BUN 14 Creatinine 0.85 Estim Creat Clear Calc 73 Estimated GFR > 60 Glucose 99 Calcium 7.9 L Magnesium 2.0 Total Bilirubin 0.5 AST 19 ALT 9 Alkaline Phosphatase 76 Total Protein 6.0 L Albumin 2.6 L
[2024-11-18] MEDS: levoFLOXacin 750 MG/D5W 150 ML 750 MG/150 ML BAG 100 MG IVPB (11:33)
[2024-11-18] MEDS: POTASSIUM CHLORIDE 20 MEQ ER TABLET 40 MEQ PO (11:34)
[2024-11-18] MEDS: oxyCODONE (*CRX) 5 MG/5 ML ORAL SOLN IR 4 MG PO (14:35)
[2024-11-18 17:13] LABS: Pneumococcal Antigen Urine DETECTED
[2024-11-18] MEDS: SODIUM CHLORIDE 0.9% IV 500 ML 50 ML IV CONT (18:11)
[2024-11-18 21:33] LABS: Legionella pneumophila Ag Ur NOT DETECTED
[2024-11-18] MEDS: traZODone HCL 50 MG TABLET 100 MG PO (22:42)
[2024-11-19] VITALS (27 sets, daily range): BP systolic 108–142; BP diastolic 55–75; PULSE 72–99; RESP 16–28; TEMP 36.4–37.1; O2SAT 91–97
[2024-11-19] MEDS: IPRATROPIUM 0.5 MG/ALBUTEROL SULFATE 2.5 MG AMPUL.NEB 3 ML INHALATION ×6 (01:37→20:44)
[2024-11-19] MEDS: metroNIDAZOLE 500 MG/ISO 100ML 500 MG/100 ML BAG 75 MG IVPB ×3 (02:34→17:31)
[2024-11-19 05:04] LABS: Basophils Percent Auto 0.1 % (0.2-1.2); Eosinophils Absolute Auto 0.5 K/mm3 (0-0.3); Eosinophils Percent Auto 4.3 % (0-4.4); Hematocrit 36.4 % (42.0-52.0); Hemoglobin 11.5 g/dL (14.0-18.0); Immature Granulocyte Absolute 0.13 K/mm3 (0.00-0.031); Immature Granulocyte Percent A 1.2 % (0-0.5); Lymphocytes Absolute Auto 1.11 K/mm3 (0.9-3.2); Lymphocytes Percent Auto 9.9 % (18.3-44.2); Mean Corpuscular HGB Conc 31.6 g/dl (32-36); Mean Corpuscular Hemoglobin 26.2 pg (26-34); Mean Corpuscular Volume 82.9 fl (80-100); Mean Platelet Volume 10.2 fl (7.4-10.4); Monocytes Absolute Auto 0.6 K/mm3 (0.1-0.6); Monocytes Percent Auto 5.7 % (2.6-8.5); Neutrophils Absolute Auto 8.8 K/mm3 (1.3-6.7); Neutrophils Percent Auto 78.8 % (45.5-73.1); Platelet Count Result 259 k/mm3 (150-375); Red Blood Count 4.39 M/mm3 (4.6-6.20); White Blood Count 11.2 K/mm3 (4.5-10.0)
[2024-11-19 05:17] LABS: Alanine Aminotransferase 9 U/L (6-50); Albumin Level 2.6 g/dL (3.5-5.1); Alkaline Phosphatase 73 U/L (38-126); Anion Gap 4 mmol/L (4-12); Aspartate Amino Transferase 18 U/L (17-59); Bilirubin,Total 0.5 mg/dL (0.2-1.3); Blood Urea Nitrogen 14 mg/dL (9-20); Calcium 8.5 mg/dL (8.4-10.2); Carbon Dioxide 32 mmol/L (22-30); Chloride 103 mmol/L (98-107); Estimated CRCL calculation 79 ml/min; Estimated Glomerular Filt Rate > 60; Glucose 104 mg/dL (65-110); Magnesium 1.9 mg/dL (1.6-2.3); Potassium 3.2 mmol/L (3.4-5.0); Sodium 139 mmol/L (137-145)
[2024-11-19] MEDS: oxyCODONE (*CRX) 5 MG/5 ML ORAL SOLN IR 10 MG PO ×5 (05:56→21:35)
[2024-11-19] MEDS: CEFEPIME 2 GM/NS 50 ML 2 GM/50 ML BAG IVPB ×3 (06:01→21:44)
[2024-11-19] MEDS: levoFLOXacin 750 MG/D5W 150 ML 750 MG/150 ML BAG 100 MG IVPB (08:40)
[2024-11-19] MEDS: PARoxetine 20 MG TABLET 40 MG BY MOUTH (08:43)
[2024-11-19] MEDS: levETIRAcetam 500 MG TABLET PO ×2 (08:44→21:35)
[2024-11-19] MEDS: PANTOPRAZOLE 40 MG TABLET PO ×2 (08:44→21:35)
[2024-11-19] MEDS: buPROPion HCL XL (24 HR) 150 MG TABCR 300 MG BY MOUTH (08:44)
[2024-11-19] MEDS: PREGABALIN (*CRX) 75 MG CAPSULE 150 MG PO ×2 (08:44→17:30)
[2024-11-19] MEDS: guaiFENesin 12 HR 600 MG TABCR 1200 MG PO ×2 (08:44→21:35)
[2024-11-19] MEDS: LIDOCAINE 5% PATCH 1 PATCH TOPICAL (08:44)
[2024-11-19] MEDS: FERROUS SULFATE 325 MG TABLET DR BY MOUTH (08:44)
[2024-11-19] MEDS: MIDODRINE HCL 2.5 MG TABLET PO ×2 (08:44→17:30)
[2024-11-19] MEDS: OSELTAMIVIR PHOSPHATE 75 MG CAPSULE PO ×2 (08:44→21:35)
[2024-11-19] MEDS: POTASSIUM CHLORIDE 20 MEQ ER TABLET 40 MEQ PO (08:48)
--- NOTE | 2024-11-19 10:11 | P.PNIM_ITS ---
Progress Note: A&P Assessment and Plan (1) Influenza A: Code(s): J10.1 - Influenza due to other identified influenza virus with other respiratory manifestations Status: Acute Assessment and Plan: * Influenza A positive. * Negative for COVID, RSV and Influenza B. * Tamiflu 75 mg PO q 12. * WBC 9.8>11.6>10.9>11.2 * Sa02 91% high flow nasal cannula 8 liters * Afebrile. (2) Postobstructive pneumonia: Code(s): J18.9 - Pneumonia, unspecified organism Status: Acute Assessment and Plan: * WBC 9.8>11.6>10.9>11.2. * CTA chest without PE. * Patchy bibasilar ground opacity suspicious for infection as well as left descending bronchus being largely obstructive with postobstructive consolidation noted as well. * Continue Cefepime, Levofloxacin, and Flagyl. * Duoneb q 6. * Guaifenesin 1,200 mg PO q 12. * Cornet flutter valve to aid in sputum expectoration. * CPT * Dr. Mosley Artist Representative following, appreciate recommendations. * Repeat CT scan in 3-6 weeks. * His urine streptococcal antigen from 11/14/2024 returned positive today. * Echocardiogram ordered. * Add PT/OT (3) COPD (chronic obstructive pulmonary disease): Qualifiers: COPD type: unspecified COPD Qualified Code(s): J44.9 - Chronic obstructive pulmonary disease, unspecified Code(s): J44.9 - Chronic obstructive pulmonary disease, unspecified Status: Acute Assessment and Plan: * Duoneb q6 * Continue Cefepime, Levofloxacin, and Flagyl. * Guaifenesin 1,200 mg PO q 12. * Pulmonology following, appreciate recommendations. * Repeat Chest X-ray today showed: FINDINGS The cardiomediastinal silhouette is enlarged, unchanged. Improved aeration of the right hemithorax when compared with prior. Extensive infiltration persists. The left hemithorax is clear. IMPRESSION: Improved aeration of the right hemithorax when compared with prior. Extensive infiltration persists. The left hemithorax remains clear. (4) Hypokalemia: Code(s): E87.6 - Hypokalemia Status: Acute Assessment and Plan: * Potassium 3.2. * Potassium Chloride 40 meq PO x 1. * Monitor labs. Plan Patient wishes to be full code. Home medications restarted as appropriate. 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 Subjective Date/time seen: 11/19/24 10:11 Interval history: Patient reports that breathing is slightly better today. Patient reports shortness of breath at rest at times. Patient reports coughing up brown sputum. Patient denies chest pain, palpitations, headache, dizziness, nausea, or vomiting. Daughter at bedside. Review of Systems Review of Systems: All systems reviewed & are unremarkable except as noted in HPI and below Exam Const: General: comfortable and no acute distress Resp: Effort & Inspection: normal respiratory effort Auscultation: rhonchi Cardio: Rate: regular rate Rhythm: regular rhythm Other: Telemetry- SR 94. GI: GI Palp: Yes Soft to palpation Auscultation: normal bowel sounds Neuro: Speech: normal speech Extrem: General: no pedal edema Psych: Mental Status: mental status grossly normal Affect: normal affect Objective Data Vital Signs Vital Signs: Vital Signs - 24 hr 11/18/24 12:00 11/18/24 12:00 11/18/24 12:00 Temperature 98.0 F Pulse Rate 74 74 74 Respiratory Rate 24 H 24 H Blood Pressure 122/69 Pulse Oximetry 95 95 Oxygen Delivery High Flow Nasal Cannula Oxygen Flow Rate 40 Fraction of Inspired Oxygen 60 11/18/24 12:38 11/18/24 13:03 11/18/24 13:20 Temperature Pulse Rate 74 87 100 Respiratory Rate 20 20 Blood Pressure Pulse Oximetry Oxygen Delivery Oxygen Flow Rate Fraction of Inspired Oxygen 11/18/24 16:00 11/18/24 16:00 11/18/24 16:00 Temperature 97.5 F L Pulse Rate 100 100 78 Respiratory Rate 20 20 Blood Pressure 135/76 Pulse Oximetry 95 100 Oxygen Delivery High Flow Nasal Cannula Oxygen Flow Rate 40 Fraction of Inspired Oxygen 60 11/18/24 16:41 11/18/24 16:50 11/18/24 18:00 Temperature Pulse Rate 80 83 83 Respiratory Rate 20 20 Blood Pressure Pulse Oximetry Oxygen Delivery Oxygen Flow Rate Fraction of Inspired Oxygen 11/18/24 19:59 11/18/24 20:00 11/18/24 20:00 Temperature 98.2 F Pulse Rate 87 81 80 Respiratory Rate 20 20 Blood Pressure 137/79 Pulse Oximetry 95 Oxygen Delivery Oxygen Flow Rate Fraction of Inspired Oxygen 11/18/24 20:10 11/18/24 22:00 11/18/24 22:00 Temperature Pulse Rate 83 82 Respiratory Rate 20 Blood Pressure Pulse Oximetry 96 Oxygen Delivery High Flow Nasal Cannula Oxygen Flow Rate 10 Fraction of Inspired Oxygen 11/19/24 00:00 11/19/24 00:00 11/19/24 00:45 Temperature 98.7 F Pulse Rate 77 76 Respiratory Rate 20 Blood Pressure 108/62 Pulse Oximetry 91 97 Oxygen Delivery High Flow Nasal Cannula Oxygen Flow Rate 10 Fraction of Inspired Oxygen 11/19/24 01:37 11/19/24 01:45 11/19/24 02:00 Temperature Pulse Rate 83 87 76 Respiratory Rate 20 20 Blood Pressure Pulse Oximetry Oxygen Delivery Oxygen Flow Rate Fraction of Inspired Oxygen 11/19/24 04:00 11/19/24 04:00 11/19/24 04:00 Temperature 98.5 F Pulse Rate 81 81 Respiratory Rate 18 Blood Pressure 138/74 Pulse Oximetry 96 93 Oxygen Delivery High Flow Nasal Cannula Oxygen Flow Rate 10 Fraction of Inspired Oxygen 11/19/24 04:02 11/19/24 04:07 11/19/24 06:00 Temperature Pulse Rate 88 81 78 Respiratory Rate 18 18 Blood Pressure Pulse Oximetry Oxygen Delivery Oxygen Flow Rate Fraction of Inspired Oxygen 11/19/24 07:43 11/19/24 07:43 11/19/24 07:55 Temperature Pulse Rate 79 75 Respiratory Rate 20 20 Blood Pressure Pulse Oximetry 95 Oxygen Delivery High Flow Nasal Cannula Oxygen Flow Rate 10 Fraction of Inspired Oxygen 11/19/24 08:00 11/19/24 08:00 Temperature 98.7 F Pulse Rate 82 89 Respiratory Rate 20 Blood Pressure 136/75 Pulse Oximetry 95 Oxygen Delivery Oxygen Flow Rate Fraction of Inspired Oxygen Intake/Output Intake/Output: Intake & Output 11/16/24 11/17/24 11/18/24 11/19/24 23:59 23:59 23:59 23:59 Intake Total 2600 1430 1490 570 Output Total 205 1311 0395 700 Balance 2177 -795 -610 -130 Meds/Results Medications: Active Medications Generic Name Dose Route Start Last Admin Trade Name Freq PRN Reason Stop Dose Admin Acetaminophen 650 mg 11/13/24 21:48 11/17/24 16:41 Acetaminophen 325 Mg Tablet PO 650 mg Q4H PRN Administration Mild Pain (1-3) or Fever Albuterol/Ipratropium 3 ml 11/17/24 08:00 11/19/24 07:43 Ipratropium 0.5 Mg/Albuterol Sulfate 2.5 Mg Ampul.Neb 3 Ml INHALATION 3 ml Q4HRT DANE Administration Bupropion HCl 300 mg 11/14/24 09:00 11/19/24 08:44 Bupropion Hcl Xl (24 Hr) 150 Mg Tabcr BY MOUTH 300 mg DAILY DANE Administration Ferrous Sulfate 325 mg 11/14/24 09:00 11/19/24 08:44 Ferrous Sulfate [address] BY MOUTH 325 mg DAILY DANE Administration Guaifenesin 1,200 mg 11/14/24 10:35 11/19/24 08:44 Guaifenesin 12 Hr 600 Mg Tabcr PO 1,200 mg Q12HR DANE Administration Metronidazole 500 mg in 100 mls @ 100 mls/hr 11/14/24 03:00 11/19/24 03:55 Flagyl 500 Mg/Iso Soln 100 Ml IVPB Infused Q8H DANE Infusion Cefepime HCl 2 gm in 50 mls @ 100 mls/hr 11/17/24 06:00 11/19/24 06:01 Maxipime 2 Gm/Ns 50 Ml IVPB 50 mls/hr Q8HR DANE Administration Levofloxacin/Dextrose 750 mg in 150 mls @ 100 mls/hr 11/17/24 12:00 11/19/24 08:40 Levaquin 750 Mg/D5w 150 Ml IVPB 100 mls/hr DAILY DANE Administration Levetiracetam 500 mg 11/14/24 13:35 11/19/24 08:44 Levetiracetam 500 Mg Tablet PO 500 mg Q12HR DANE Administration Lidocaine 1 patch 11/14/24 09:00 11/19/24 08:44 Lidocaine 5% Patch TOPICAL 1 patch DAILY DANE Administration Lorazepam 0.5 mg 11/13/24 21:34 Lorazepam (*Crx) 0.5 Mg Tablet PO ONCE PRN Agitation Lorazepam 0.5 mg 11/14/24 02:03 Lorazepam (*Crx) 0.5 Mg Tablet PO BID PRN anxiety Midodrine 2.5 mg 11/14/24 09:00 11/19/24 08:44 Midodrine Hcl 2.5 Mg Tablet PO 2.5 mg BID DANE Administration Oseltamivir Phosphate 75 mg 11/18/24 10:50 11/19/24 08:44 Oseltamivir Phosphate 75 Mg Capsule PO 11/22/24 21:01 75 mg Q12HR DANE Administration Oxycodone HCl 10 mg 11/14/24 10:50 11/19/24 08:45 Oxycodone (*Crx) 5 Mg/5 Ml Oral Soln Ir PO 10 mg Q4HR DANE Administration Pantoprazole Sodium 40 mg 11/14/24 09:00 11/19/24 08:44 Pantoprazole 40 Mg Tablet PO 40 mg Q12HR DANE Administration Paroxetine HCl 40 mg 11/14/24 09:00 11/19/24 08:43 Paroxetine 20 Mg Tablet BY MOUTH 40 mg QAM DANE Administration Pregabalin 150 mg 11/14/24 09:00 11/19/24 08:44 Pregabalin (*Crx) 75 Mg Capsule PO 150 mg BID DANE Administration Tizanidine HCl 4 mg 11/14/24 02:03 11/17/24 16:41 Tizanidine Hcl 4 Mg Tablet PO 4 mg TID PRN Administration muscle spasticity Trazodone HCl 100 mg 11/14/24 21:00 11/18/24 22:42 Trazodone Hcl 50 Mg Tablet PO 100 mg QHS DANE Administration Radiology Results: ITS Impressions Chest CTA 11/13/24 21:03 IMPRESSION: No pulmonary embolus. No thoracic aortic dissection. Obstruction of the left lower lobe bronchus with postobstructive consolidation for which direct visualization is recommended. Additional findings within the remainder of the left as well as the remaining right lung for which infectious etiology is favored. Chest X-Ray 11/19/24 07:07 IMPRESSION: Improved aeration of the right hemithorax when compared with prior. Extensive infiltration persists. The left hemithorax remains clear. Labs Labs: Laboratory Results - last 24 hr 11/14/24 11/19/24 12:29 04:29 WBC 11.2 H RBC 4.39 L Hgb 11.5 L Hct 36.4 L MCV 82.9 MCH 26.2 MCHC 31.6 L RDW 16.0 H Plt Count 259 MPV 10.2 Immature Gran % (Auto) 1.2 H Neut % (Auto) 78.8 H Lymph % (Auto) 9.9 L Holmes % (Auto) 5.7 Eos % (Auto) 4.3 Baso % (Auto) 0.1 L Lymph # (Auto) 1.11 Holmes # (Auto) 0.6 Eos # (Auto) 0.5 H Baso # (Auto) 0.0 Abs Immat Gran (auto) 0.13 H Absolute Neuts (auto) 8.8 H Absolute Nucleated RBC 0.000 Nucleated RBC % 0.0 Sodium 139 Potassium 3.2 L Chloride 103 Carbon Dioxide 32 H Anion Gap 4 BUN 14 Creatinine 0.78 Estim Creat Clear Calc 79 Estimated GFR > 60 Glucose 104 Calcium 8.5 Magnesium 1.9 Total Bilirubin 0.5 AST 18 ALT 9 Alkaline Phosphatase 73 Total Protein 6.0 L Albumin 2.6 L Ur L.pneumophila Ag Not detected Urine Pneumococcal Ag Detected A Quality VTE Prophylaxis VTE prophylaxis: mechanical ordered
--- NOTE | 2024-11-19 11:06 | PM.PNPUL ---
Progress Note: A&P Assessment and Plan (1) Influenza A: Code(s): J10.1 - Influenza due to other identified influenza virus with other respiratory manifestations Status: Acute Assessment and Plan: Patient has influenza a pneumonia. Plan: I have discontinued his Solu-Medrol. Patient is on Tamiflu day 1. Will continue For at least 5 days. patient is on room air at this time with with a goal saturation 90-94%. 11/15/24: patient tells me he is much improved. states his breathing is back to normal. His cough is normal. He has no phlegm, hemoptysis. He is afebrile. White blood cell count 11.3. Currently is on room air with saturations 92%. Plan: Patient is improving. continue Tamiflu, day 2. 11/16/24: Patient tells me he is breathing normal and his cough is normal. He is unable to expectorate phlegm. Worsening oxygen requirements and currently on 3 L with saturations 90%. He is afebrile. White blood cell count 9.8, creatinine 0.82. Plan: patient does not feels well as he did yesterday. Continue Tamiflu, day 3. I will check a chest x-ray in the morning. 11/17/24: At 3:00 a.m. this morning the patient had respiratory distress and hypoxemia. See event note by hospitalist. He had audible mucus congestion and white crackles throughout the lungs. Chest x-ray showed worsening right-sided interstitial alveolar infiltrates. ABG was 7.35/53/75 on 15 L non-rebreather. BNP was 133. Procalcitonin 0.1. Patient was treated with bronchodilators, IV Lasix, antibiotics changed to vancomycin and cefepime with continuation of Flagyl. Patient ultimately required Vapotherm and was transferred to the IMU. Currently the patient states his breathing is worsening get short of breath at rest. He has increased phlegm production that is dark red. He is currently on the Vapotherm 45 L, 90% FiO2 with saturations 97%. His white blood cell count is 11.6, is creatinine is 0.73. Plan: Continue Tamiflu day 4. Patient with new right-sided infiltrates despite being treated with ceftriaxone, azithromycin and Flagyl. MRSA nasal swab negative. This could represent a healthcare associated pneumonia and he has been switched to Cefepime, levofloxacin both day 1, and continuation of Flagyl, day 4. 11/18/2024: Overall the patient tells me that he is the same as yesterday. His cough and phlegm production persist and are unchanged. He has no hemoptysis. He is afebrile. White blood cell count 10.9, creatinine 0.85. When I enter the room he was on Vapotherm 40 L 60% FiO2 with saturations 95%. I placed him on 15 L nasal cannula and was able to decrease him to 10 L with saturations 93%. Plan: Continue Tamiflu day 5. Given the severity of his disease will continue for a total of 10 days. Patient with new right-sided infiltrates despite being treated with ceftriaxone, azithromycin and Flagyl. MRSA nasal swab negative. This could represent a healthcare associated pneumonia and he has been switched to Cefepime, levofloxacin both day 2, and continuation of Flagyl, day 5. Goal saturation 90-94%. 11/19/2024: Overall the patient tells me he feels a little better and slept well last night but his breathing is about the same. He is having less rosenbaum phlegm production. Denies fever chills. White blood cell count 11.2, creatinine 0.78.. When I enter the room he was on 10 L nasal cannula with saturations 96%. I decreased him to 8 L nasal cannula and his saturations were 91%. Chest x-ray today showed improved infiltrates in his right lung, Improved retrocardiac consolidation. His urine streptococcal antigen from 11/14/2024 returned positive today. Plan: Continue Tamiflu day 6. Given the severity of his disease will continue for a total of 10 days. Patient with Urine streptococcal antigen positive from 11/14/2024 and on 11/17/2024 new right-sided infiltrates despite being treated with ceftriaxone, azithromycin and Flagyl. MRSA nasal swab negative. This likely resents streptococcal pneumonia superinfection and will continue Cefepime, levofloxacin both day 3 (day 7 total treatemnt with ceftriaxone plus cefepime and levaquin), and continuation of Flagyl, day 6. will consider discontinuing Flagyl Tomorrow after day 7. Goal saturation 90-94%. Discussed with daughter in the room and Christin Billingsley. Will follow with you. (2) Respiratory failure with hypoxia and hypercapnia: Code(s): J96.91 - Respiratory failure, unspecified with hypoxia; J96.92 - Respiratory failure, unspecified with hypercapnia Status: Acute Assessment and Plan: Patient is on no home oxygen. 18:30 RA, sats 94 11/14 06:45 RA, sats 94 11/14 19:45 RA, sats 91 11/15 08:00 RA, sasts 92 11/15 13:30 2 L NC, sats 92 11/15 20:54 1 L NC, sats 91 11/16 7:43 2.5 L NC, sats 90 11/16 20:00 2.5 L NC, sats 92 11/17 05:13 ABG on 15 L non-rebreather mask 7.35/53/75. 11/17 06:00 vapotherm 45 L, 90% FIO2, sats 92% 11/17 20:00 vapotherm 40 L 60% FIO2, sats 97% 11/18 8:00 vapotherm 40 L 60% FIO2, sats 95%, 11/18 9:30 to nasal cannula 10 L with saturations 93%. 11/18 22:00 10 L NC, sats 96% 11/18 8:30 10 L NC, sats 96%, I decreased to 8 L NC and sats 91% 11/17/24: Patient tells me he is comfortable right now on the Vapotherm. We talked about BiPAP he says he is feeling breathing fine at this time and is worried that he will be claustrophobic with the BiPAP. If he needs a BiPAP he is in agreement to try this. We talked about intubation and the patient has been intubated twice in the past and says he would be okay for intubation and mechanical ventilation if the need should arise. He is full code. (3) COPD (chronic obstructive pulmonary disease): Qualifiers: COPD type: unspecified COPD Qualified Code(s): J44.9 - Chronic obstructive pulmonary disease, unspecified Code(s): J44.9 - Chronic obstructive pulmonary disease, unspecified Status: Acute Assessment and Plan: GOLD grade 2 COPD Patient with a 50 pack year tobacco use, currently smoking 1 pack over 3 days. PFTs on 01/20/2021 with a moderately severe obstructive abnormality with an FEV1 of 1.71 L, 50% predicted, ratio 52%, normal lung volumes, moderately decreased DLCO that normalized when corrected for alveolar volume. CT scan of the chest with emphysema on 02/07/2007, 06/27/2021, 02/06/2022, 07/10/2024, and most recently on 11/13/2024 with moderate apical predominant paraseptal emphysema and mild apical predominant centrilobular emphysema. Currently not on supplemental oxygen at home. Eosinophil on 11/13/2024 is 33 per micro L Plan: patient is currently not wheezing any longer and I will discontinue his systemic steroids because he has influenza a infection. I will continue DuoNebs q.6 hours. he is concurrently being treated for community acquired pneumonia with possible post obstruction with ceftriaxone, azithromycin and Flagyl. Will continue for now. 11/15: No evidence of COPD exacerbation. plan: I will discontinue nebulizers and continue his home trelegy 100. Continue guaifenesin 1200 mg p.o. b.i.d.. 11/16: No wheezing. He is more congested with phlegm. Plan: Continue trilogy 100, guaifenesin 1200 mg p.o. b.i.d. will add Cornet flutter valve today. 11/17/24: No wheezes today. Plan: I will change his trelegy 100 to DuoNebs q.4 hours. 11/18/24: mild expiratory wheezes today. Plan: Will continue DuoNebs q.4 hours as tolerated. patient is stable at this time and will not initiate inhaled or systemic steroids as he has influenza pneumonia. alpha 1 anti trypsin genotype and level ordered. Follow him clinically. (4) Postobstructive pneumonia: Code(s): J18.9 - Pneumonia, unspecified organism Status: Acute Assessment and Plan: Patient with a normal CT scan 07/10/2024 and now with multifocal nodular consolidations with influenza pneumonia. Plan: I will continue to treat the patient for influenza pneumonia with Tamiflu and possible bacterial infection with ceftriaxone, azithromycin and Flagyl. Overall I will continue these treatments until the patient is recovered and repeat a CT scan in the future to reassess his infiltrates. I will place the patient on guaifenesin 1200 mg p.o. b.i.d. and had a Cornet flutter valve to aid in sputum expectoration. 11/15: Afebrile. White blood cell count 11.3. Clinically is improving. Plan: Continue treatment for influenza pneumonia with Tamiflu and possible bacterial infection with ceftriaxone day 3, azithromycin day 3 and Flagyl day 2. Will treat patient aggressively for influenza and possible bacterial pneumonia and eventually repeat CT scan in approximately 3-6 weeks. 11/16/24: afebrile, white blood cell count 9.8. Somewhat worse today. Plan: Continue ceftriaxone day 4, azithromycin day 4 and Flagyl day 3. Repeat chest x-ray in the morning. 11/17/24: As above, patient now being treated with cefepime, levofloxacin and Flagyl. 11/18/24: treatment as above with cefepime, levofloxacin and Flagyl. 11/19/24: patient urine strep antigen returned positive today, indicating super infection with Streptococcus pneumonia. chest x-ray today with improved right lung infiltrates and improved retrocardiac consolidation Plan: will continue Cefepime, levofloxacin both day 3 (day 7 total treatment with ceftriaxone plus cefepime and levaquin), and continuation of Flagyl, day 6. will consider discontinuing Flagyl tomorrow after day 7. Subjective Date/time seen: 11/19/24 11:06 Interval history: 11/14/2024: This is a new pulmonary consult for influenza and possible post obstructive pneumonia. 64-year-old with a history of tobacco use, COPD, stage I A lung cancer status post right upper lobectomy on , gastric bypass 2000, GERD. regarding his lung cancer the patient had a right upper lobectomy with leg negative lymph nodes on 01/23/2020. He received no additional treatment. He is followed by Dr. Quinten mccurdy and had a CT scan on 07/10/2024 with emphysema no evidence of malignancy with recommendation to repeat in 1 year. Regarding his COPD. Patient smoked tobacco from age 14 to current at 1 pack per day for a total of 50 pack years. He was exposed to secondhand smoke from his father. 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 He did wear respiratory protection when he grinds id. He retired 4-5 years ago. He is not on any home oxygen. He is maintained on trelegy 100 and p.r.n. albuterol. patient tells me he presents with 3 weeks history of cough and phlegm which was brown. Two weeks worth of shortness of breath. Symptoms actually got better until about 3 days ago when his cough and shortness of breath got worse. His phlegm production increased. He presented to the emergency room on 11/13/2024. His blood pressure was 132/ 81, heart rate 71, respirations 20, room air saturations 94%. White blood cell count 11.1, creatinine 0.81, D-dimer 0.83. Influenza a RT PCR positive. Chest x-ray showed left lower lobe consolidation. CT angiogram of the chest showed left lung nodular consolidations throughout. Panlobular emphysema. Left lower lobe was completely consolidated with cutoff of the left lower lobe bronchi. There are no pleural effusions. patient was treated with Tamiflu, ceftriaxone, azithromycin, Solu-Medrol and Flagyl. 11/14/2024. Today the patient states that he is breathing better. He says he is breathing 50% back to his normal. His cough is 50% better and his wheezing is 60% better. Currently the patient is on room air with saturations 92%. 11/15/24: patient tells me he is much improved. states his breathing is back to normal. His cough is normal. He has no phlegm, hemoptysis. He is afebrile. White blood cell count 11.3. Currently is on room air with saturations 92%. 11/16/24: Patient tells me he is breathing normal and his cough is normal. He is unable to expectorate phlegm. Worsening oxygen requirements and currently on 3 L with saturations 90%. He is afebrile. White blood cell count 9.8, creatinine 0.82. 11/17/24: At 3:00 a.m. this morning the patient had respiratory distress and hypoxemia. See event note by hospitalist. He had audible mucus congestion and white crackles throughout the lungs. Chest x-ray showed worsening right-sided interstitial alveolar infiltrates. ABG was 7.35/53/75 on 15 L non-rebreather. BNP was 133. Procalcitonin 0.1. Patient was treated with bronchodilators, IV Lasix, antibiotics changed to vancomycin and cefepime with continuation of Flagyl. Patient ultimately required Vapotherm and was transferred to the IMU. Currently the patient states his breathing is worsening get short of breath at rest. He has increased phlegm production that is dark red. He is currently on the Vapotherm 45 L, 90% FiO2 with saturations 97%. His white blood cell count is 11.6, is creatinine is 0.73. 11/18/2024: Overall the patient tells me that he is the same as yesterday. His cough and phlegm production persist and are unchanged. He has no hemoptysis. He is afebrile. White blood cell count 10.9, creatinine 0.85. When I enter the room he was on Vapotherm 40 L 60% FiO2 with saturations 95%. I placed him on 15 L nasal cannula and was able to decrease him to 10 L with saturations 93%. 11/19/2024: Overall the patient tells me he feels a little better and slept well last night but his breathing is about the same. He is having less rosenbaum phlegm production. Denies fever chills. White blood cell count 11.2, creatinine 0.78.. When I enter the room he was on 10 L nasal cannula with saturations 96%. I decreased him to 8 L nasal cannula and his saturations were 91%. Chest x-ray today showed improved infiltrates in his right lung. His urine streptococcal antigen from 11/14/2024 returned positive today. 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 Personal history of right-sided lung cancer post right middle lobectomy in 2019 with negative margins. TECHNIQUE: Computed tomographic angiography (CTA) of the chest was performed with 100 mL Omnipaque-350 intravenous contrast. The dose-length product was 399.78 mGy-cm. Maximum intensity projection 3D-reconstructions of the aorta and other arteries were constructed by the technologist on a separate workstation. COMPARISON: 07/10/2024 FINDINGS/OBSERVATIONS: PULMONARY ARTERIES: No filling defect is identified within the main or proximal pulmonary artery. The main pulmonary artery is not enlarged. THORACIC AORTA: No aneurysmal dilatation or dissection is present. The great vessels are intact LUNGS: Patchy groundglass opacification detected bilaterally, possibly infectious in origin. The left descending bronchus is largely obscured for which direct visualization is recommended. Post obstructive consolidation is noted, involving the entirety of the left lower lobe. Panlobular emphysematous disease is also noted. Biapical scarring is present. Postoperative change within the right hilum, consistent with patient's history. MEDIASTINUM: Mediastinal lymphadenopathy is identified within the aortopulmonary window and the left paratracheal region. The largest lymph node is within the left paratracheal region measuring 12 mm in short axis dimension. Multiple calcified lymph nodes are also detected within the mediastinum, suggesting prior granulomatous disease. BONES OF THE CHEST: No acute fracture. No significant degenerative disease. No lytic or blastic lesions. Leads from a stimulator device are identified within the canal. HEART: The heart is borderline enlarged, without pericardial effusion. IMPRESSION: No pulmonary embolus. No thoracic aortic dissection. Obstruction of the left lower lobe bronchus with postobstructive consolidation for which direct visualization is recommended. Additional findings within the remainder of the left as well as the remaining right lung for which infectious etiology is favored. 07/10/24: Clinical Indication: Lung cancer CT Scan of the Chest with Contrast: Technique: Contiguous sections were acquired throughout the chest after intravenous administration of 75 cc of Omnipaque 350. Dose reduction technique was used on this scan by utilizing automated exposure control and iterative reconstruction technique. The dose-length product (DLP) was 178.75 mGy-cm. COMPARISON: 02/06/2022 Findings: There is no evidence of any significant mediastinal, hilar or axillary lymphadenopathy. There is no filling defect in the pulmonary arterial tree to suggest pulmonary embolus. There is no evidence of aortic dissection or aneurysm. There is no evidence of pleural or pericardial effusion. Status post right middle lobectomy. There is biapical scarring, unchanged. Paraseptal emphysema is unchanged, predominantly in the upper lobes. Stable scarring at the inferior right upper lobe. There is left basilar consolidation, presumably atelectasis. Images through the upper abdomen reveal probable prior bariatric surgery. There are mild compression fractures of L1 and L2, age indeterminate. Impression: No evidence of active malignancy or metastatic disease. Status post right middle lobectomy. Emphysema and scarring, as above. Probable left basilar atelectasis versus possibly pneumonia. Compression fractures of L1-L2, age indeterminate, new since prior exam. 06/17/2021 This is a pulmonary function test with pre and post-bronchodilator spirometry, plethysmography and diffusing capacity. The test was performed and results interpreted in accordance with the 2019 and 2005 ATS/ERS Task Force guidelines respectively using the Global Lung Function Initiative-2012 reference equations. Patient demonstrated good effort and cooperation. Reproducibility criteria were met. The quality of the pre bronchodilator spirometry maneuver was Grade A and post bronchodilator spirometry maneuver was Grade A. Findings: Spirometry: there is decreased maximal expiratory airflow at all lung volumes with concave expiratory flow tracing. The contour of the inspiratory flow tracing is normal. The pre bronchodilator FVC is 3.31 L, 75% predicted. The pre bronchodilator FEV1 is 1.71 L, 50% predicted. The FEV1: FVC ratio is 52%. The post bronchodilator FVC is 3.44 L, representing a 4% increase. The post bronchodilator FEV1 is 1.79 L, representing a 5% increase. Plethysmography: The total lung capacity is 5.86 L, 86% predicted. The functional residual capacity is 3.47 L, 98% predicted. The residual volume is 2.56 L, 115% predicted. Diffusion capacity: The absolute diffusion capacity is 14.6, 53% predicted. The diffusing capacity corrected for alveolar volume is 3.41, 80% predicted. Impression: There is a moderately severe obstructive abnormality without significant improvement after inhaling a single dose of albuterol. The lung volumes are normal. The absolute diffusing capacity is moderately decreased and normalizes when corrected for alveolar volume. There are no prior studies for comparison Review of Systems Constitutional: Constitutional: Reports no additional constitutional complaints Eyes: Eyes: Reports no additional eye complaints ENT: Reports system reviewed and no additional complaints, except as documented Cardiovascular: Cardiovascular: Reports no additional cardiovascular complaints Respiratory: Respiratory: Reports no additional respiratory complaints Gastrointestinal: Gastrointestinal: Reports no additional gastrointestinal complaints Musculoskeletal: Musculoskeletal: Reports no additional musculoskeletal complaints Neurologic: Reports system reviewed and no additional complaints, except as documented Psychiatric: Psychiatric: Reports no additional psychiatric complaints Endocrine: Endocrine: Reports no additional endocrine complaints Hematologic/Lymphatic: Hematologic/Lymphatic: Reports no additional hematologic/lymphatic complaints Allergic/Immunologic: Allergic/Immunologic: Reports no additional allergic/immunologic complaints Exam Const: General: cooperative, healthy appearing and comfortable Orientation/consciousness: oriented to person, oriented to place and oriented to time HENMT: Head: normal to inspection Ears: hearing grossly normal bilaterally Eyes: General: appearance normal, both eyes and all related structures Neck: Neck: normal visual inspection Chest: Chest palpation & inspection: normal inspection of the chest Resp: Effort & Inspection: normal respiratory effort and able to speak in complete sentences Auscultation: no crackles, no rales, rhonchi, no wheezes and diminished lung sounds Other: Coarse rhonchi throughout Cardio: Jugular venous distension: no JVD GI: Inspection: normal to inspection Skin: General skin exam: normal color Neuro: General: oriented to person, oriented to place and oriented to time Extrem: General: normal to inspection and no edema Psych: Appearance: grossly normal Objective Data Vital Signs Vital Signs: Vital Signs - 24 hr 11/18/24 12:00 11/18/24 12:00 11/18/24 12:00 Temperature 36.7 C Pulse Rate 74 74 74 Respiratory Rate 24 H 24 H Blood Pressure 122/69 Pulse Oximetry 95 95 Oxygen Delivery High Flow Nasal Cannula Oxygen Flow Rate 40 Fraction of Inspired Oxygen 60 11/18/24 12:38 11/18/24 13:03 11/18/24 13:20 Temperature Pulse Rate 74 87 100 Respiratory Rate 20 20 Blood Pressure Pulse Oximetry Oxygen Delivery Oxygen Flow Rate Fraction of Inspired Oxygen 11/18/24 16:00 11/18/24 16:00 11/18/24 16:00 Temperature 36.4 C L Pulse Rate 100 100 78 Respiratory Rate 20 20 Blood Pressure 135/76 Pulse Oximetry 95 100 Oxygen Delivery High Flow Nasal Cannula Oxygen Flow Rate 40 Fraction of Inspired Oxygen 60 11/18/24 16:41 11/18/24 16:50 11/18/24 18:00 Temperature Pulse Rate 80 83 83 Respiratory Rate 20 20 Blood Pressure Pulse Oximetry Oxygen Delivery Oxygen Flow Rate Fraction of Inspired Oxygen 11/18/24 19:59 11/18/24 20:00 11/18/24 20:00 Temperature 36.8 C Pulse Rate 87 81 80 Respiratory Rate 20 20 Blood Pressure 137/79 Pulse Oximetry 95 Oxygen Delivery Oxygen Flow Rate Fraction of Inspired Oxygen 11/18/24 20:10 11/18/24 22:00 11/18/24 22:00 Temperature Pulse Rate 83 82 Respiratory Rate 20 Blood Pressure Pulse Oximetry 96 Oxygen Delivery High Flow Nasal Cannula Oxygen Flow Rate 10 Fraction of Inspired Oxygen 11/19/24 00:00 11/19/24 00:00 11/19/24 00:45 Temperature 37.1 C Pulse Rate 77 76 Respiratory Rate 20 Blood Pressure 108/62 Pulse Oximetry 91 97 Oxygen Delivery High Flow Nasal Cannula Oxygen Flow Rate 10 Fraction of Inspired Oxygen 11/19/24 01:37 11/19/24 01:45 11/19/24 02:00 Temperature Pulse Rate 83 87 76 Respiratory Rate 20 20 Blood Pressure Pulse Oximetry Oxygen Delivery Oxygen Flow Rate Fraction of Inspired Oxygen 11/19/24 04:00 11/19/24 04:00 11/19/24 04:00 Temperature 36.9 C Pulse Rate 81 81 Respiratory Rate 18 Blood Pressure 138/74 Pulse Oximetry 96 93 Oxygen Delivery High Flow Nasal Cannula Oxygen Flow Rate 10 Fraction of Inspired Oxygen 11/19/24 04:02 11/19/24 04:07 11/19/24 06:00 Temperature Pulse Rate 88 81 78 Respiratory Rate 18 18 Blood Pressure Pulse Oximetry Oxygen Delivery Oxygen Flow Rate Fraction of Inspired Oxygen 11/19/24 07:43 11/19/24 07:43 11/19/24 07:55 Temperature Pulse Rate 79 75 Respiratory Rate 20 20 Blood Pressure Pulse Oximetry 95 Oxygen Delivery High Flow Nasal Cannula Oxygen Flow Rate 10 Fraction of Inspired Oxygen 11/19/24 08:00 11/19/24 08:00 Temperature 37.1 C Pulse Rate 82 89 Respiratory Rate 20 Blood Pressure 136/75 Pulse Oximetry 95 Oxygen Delivery Oxygen Flow Rate Fraction of Inspired Oxygen Intake/Output Intake/Output: Intake & Output 11/16/24 11/17/24 11/18/24 11/19/24 23:59 23:59 23:59 23:59 Intake Total 4892 1430 1490 570 Output Total 690 1294 2303 700 Balance 2177 -795 -610 -130 Meds/Results Medications: Active Medications Generic Name Dose Route Start Last Admin Trade Name Freq PRN Reason Stop Dose Admin Acetaminophen 650 mg 11/13/24 21:48 11/17/24 16:41 Acetaminophen 325 Mg Tablet PO 650 mg Q4H PRN Administration Mild Pain (1-3) or Fever Albuterol/Ipratropium 3 ml 11/17/24 08:00 11/19/24 07:43 Ipratropium 0.5 Mg/Albuterol Sulfate 2.5 Mg Ampul.Neb 3 Ml INHALATION 3 ml Q4HRT DANE Administration Bupropion HCl 300 mg 11/14/24 09:00 11/19/24 08:44 Bupropion Hcl Xl (24 Hr) 150 Mg Tabcr BY MOUTH 300 mg DAILY DANE Administration Ferrous Sulfate 325 mg 11/14/24 09:00 11/19/24 08:44 Ferrous Sulfate [address] BY MOUTH 325 mg DAILY DANE Administration Guaifenesin 1,200 mg 11/14/24 10:35 11/19/24 08:44 Guaifenesin 12 Hr 600 Mg Tabcr PO 1,200 mg Q12HR DANE Administration Metronidazole 500 mg in 100 mls @ 100 mls/hr 11/14/24 03:00 11/19/24 03:55 Flagyl 500 Mg/Iso Soln 100 Ml IVPB Infused Q8H DANE Infusion Cefepime HCl 2 gm in 50 mls @ 100 mls/hr 11/17/24 06:00 11/19/24 06:01 Maxipime 2 Gm/Ns 50 Ml IVPB 50 mls/hr Q8HR DANE Administration Levofloxacin/Dextrose 750 mg in 150 mls @ 100 mls/hr 11/17/24 12:00 11/19/24 08:40 Levaquin 750 Mg/D5w 150 Ml IVPB 100 mls/hr DAILY DANE Administration Levetiracetam 500 mg 11/14/24 13:35 11/19/24 08:44 Levetiracetam 500 Mg Tablet PO 500 mg Q12HR DANE Administration Lidocaine 1 patch 11/14/24 09:00 11/19/24 08:44 Lidocaine 5% Patch TOPICAL 1 patch DAILY DANE Administration Lorazepam 0.5 mg 11/13/24 21:34 Lorazepam (*Crx) 0.5 Mg Tablet PO ONCE PRN Agitation Lorazepam 0.5 mg 11/14/24 02:03 Lorazepam (*Crx) 0.5 Mg Tablet PO BID PRN anxiety Midodrine 2.5 mg 11/14/24 09:00 11/19/24 08:44 Midodrine Hcl 2.5 Mg Tablet PO 2.5 mg BID DANE Administration Oseltamivir Phosphate 75 mg 11/18/24 10:50 11/19/24 08:44 Oseltamivir Phosphate 75 Mg Capsule PO 11/22/24 21:01 75 mg Q12HR DANE Administration Oxycodone HCl 10 mg 11/14/24 10:50 11/19/24 08:45 Oxycodone (*Crx) 5 Mg/5 Ml Oral Soln Ir PO 10 mg Q4HR DANE Administration Pantoprazole Sodium 40 mg 11/14/24 09:00 11/19/24 08:44 Pantoprazole 40 Mg Tablet PO 40 mg Q12HR DANE Administration Paroxetine HCl 40 mg 11/14/24 09:00 11/19/24 08:43 Paroxetine 20 Mg Tablet BY MOUTH 40 mg QAM DANE Administration Pregabalin 150 mg 11/14/24 09:00 11/19/24 08:44 Pregabalin (*Crx) 75 Mg Capsule PO 150 mg BID DANE Administration Tizanidine HCl 4 mg 11/14/24 02:03 11/17/24 16:41 Tizanidine Hcl 4 Mg Tablet PO 4 mg TID PRN Administration muscle spasticity Trazodone HCl 100 mg 11/14/24 21:00 11/18/24 22:42 Trazodone Hcl 50 Mg Tablet PO 100 mg QHS DANE Administration Radiology Results: ITS Impressions Chest CTA 11/13/24 21:03 IMPRESSION: No pulmonary embolus. No thoracic aortic dissection. Obstruction of the left lower lobe bronchus with postobstructive consolidation for which direct visualization is recommended. Additional findings within the remainder of the left as well as the remaining right lung for which infectious etiology is favored. Chest X-Ray 11/19/24 07:07 IMPRESSION: Improved aeration of the right hemithorax when compared with prior. Extensive infiltration persists. The left hemithorax remains clear. Labs Labs: Laboratory Results - last 24 hr 11/14/24 11/19/24 12:29 04:29 WBC 11.2 H RBC 4.39 L Hgb 11.5 L Hct 36.4 L MCV 82.9 MCH 26.2 MCHC 31.6 L RDW 16.0 H Plt Count 259 MPV 10.2 Immature Gran % (Auto) 1.2 H Neut % (Auto) 78.8 H Lymph % (Auto) 9.9 L [place] % (Auto) 5.7 Eos % (Auto) 4.3 Baso % (Auto) 0.1 L Lymph # (Auto) 1.11 [place] # (Auto) 0.6 Eos # (Auto) 0.5 H Baso # (Auto) 0.0 Abs Immat Gran (auto) 0.13 H Absolute Neuts (auto) 8.8 H Absolute Nucleated RBC 0.000 Nucleated RBC % 0.0 Sodium 139 Potassium 3.2 L Chloride 103 Carbon Dioxide 32 H Anion Gap 4 BUN 14 Creatinine 0.78 Estim Creat Clear Calc 79 Estimated GFR > 60 Glucose 104 Calcium 8.5 Magnesium 1.9 Total Bilirubin 0.5 AST 18 ALT 9 Alkaline Phosphatase 73 Total Protein 6.0 L Albumin 2.6 L Ur L.pneumophila Ag Not detected Urine Pneumococcal Ag Detected A
[2024-11-19] MEDS: SODIUM CHLORIDE 0.9% IV 500 ML 10 ML (13:15)
[2024-11-19 14:29] LABS: Adenovirus DNA Not Detected (Not Detected); Chlamydophila pneumoniae Not Detected (Not Detected); Coronavirus 229E Not Detected (Not Detected); Coronavirus HKU1 Not Detected (Not Detected); Coronavirus NL63 Not Detected (Not Detected); Coronavirus OC43 Not Detected (Not Detected); Human Metapneumovirus Detected (Not Detected); Human Parainfluenza Virus 1 Not Detected (Not Detected); Human Parainfluenza Virus 2 Not Detected (Not Detected); Human Parainfluenza Virus 3 Not Detected (Not Detected); Human Parainfluenza Virus 4 Not Detected (Not Detected); Human RSV B Not Detected (Not Detected); Influenza A Not Detected (Not Detected); Influenza B Not Detected (Not Detected); Mycoplasma pneumoniae Not Detected (Not Detected); Rhinovirus/Enterovirus Not Detected (Not Detected)
[2024-11-19] MEDS: traZODone HCL 50 MG TABLET 100 MG PO (21:35)
[2024-11-20] VITALS (34 sets, daily range): BP systolic 105–134; BP diastolic 58–80; PULSE 80–101; RESP 16–28; TEMP 36.4–36.8; O2SAT 83–100
[2024-11-20] MEDS: SALINE 0.65% NAS SOLN 44 ML BTL 1 SPRAY NASAL (00:02)
[2024-11-20] MEDS: IPRATROPIUM 0.5 MG/ALBUTEROL SULFATE 2.5 MG AMPUL.NEB 3 ML INHALATION ×6 (00:14→19:42)
[2024-11-20] MEDS: metroNIDAZOLE 500 MG/ISO 100ML 500 MG/100 ML BAG 100 MG IVPB ×2 (03:18→11:31)
[2024-11-20 05:23] LABS: Basophils Absolute Auto 0.1 K/mm3 (0.0-0.1); Basophils Percent Auto 0.6 % (0.2-1.2); Eosinophils Absolute Auto 0.6 K/mm3 (0-0.3); Eosinophils Percent Auto 5.7 % (0-4.4); Hematocrit 36.7 % (42.0-52.0); Hemoglobin 11.3 g/dL (14.0-18.0); Immature Granulocyte Absolute 0.24 K/mm3 (0.00-0.031); Immature Granulocyte Percent A 2.3 % (0-0.5); Lymphocytes Absolute Auto 0.95 K/mm3 (0.9-3.2); Lymphocytes Percent Auto 9.2 % (18.3-44.2); Mean Corpuscular HGB Conc 30.8 g/dl (32-36); Mean Corpuscular Hemoglobin 25.7 pg (26-34); Mean Corpuscular Volume 83.4 fl (80-100); Mean Platelet Volume 9.9 fl (7.4-10.4); Monocytes Absolute Auto 0.9 K/mm3 (0.1-0.6); Monocytes Percent Auto 8.3 % (2.6-8.5); Neutrophils Absolute Auto 7.7 K/mm3 (1.3-6.7); Neutrophils Percent Auto 73.9 % (45.5-73.1); Platelet Count Result 262 k/mm3 (150-375); White Blood Count 10.4 K/mm3 (4.5-10.0)
[2024-11-20 05:39] LABS: Alanine Aminotransferase 8 U/L (6-50); Albumin Level 2.6 g/dL (3.5-5.1); Alkaline Phosphatase 70 U/L (38-126); Anion Gap 2 mmol/L (4-12); Aspartate Amino Transferase 16 U/L (17-59); Bilirubin,Total 0.6 mg/dL (0.2-1.3); Blood Urea Nitrogen 13 mg/dL (9-20); Calcium 8.5 mg/dL (8.4-10.2); Carbon Dioxide 32 mmol/L (22-30); Chloride 104 mmol/L (98-107); Estimated CRCL calculation 88 ml/min; Estimated Glomerular Filt Rate > 60; Glucose 86 mg/dL (65-110); Magnesium 1.9 mg/dL (1.6-2.3); Potassium 3.4 mmol/L (3.4-5.0); Sodium 138 mmol/L (137-145)
[2024-11-20] MEDS: CEFEPIME 2 GM/NS 50 ML 2 GM/50 ML BAG IVPB ×3 (05:41→21:53)
[2024-11-20] MEDS: oxyCODONE (*CRX) 5 MG/5 ML ORAL SOLN IR 10 MG PO ×5 (05:41→23:46)
[2024-11-20] MEDS: POTASSIUM CHLORIDE 20 MEQ ER TABLET 40 MEQ PO (08:59)
[2024-11-20] MEDS: buPROPion HCL XL (24 HR) 150 MG TABCR 300 MG BY MOUTH (09:00)
[2024-11-20] MEDS: guaiFENesin 12 HR 600 MG TABCR 1200 MG PO ×2 (09:00→22:20)
[2024-11-20] MEDS: levETIRAcetam 500 MG TABLET PO ×2 (09:00→22:20)
[2024-11-20] MEDS: PREGABALIN (*CRX) 75 MG CAPSULE 150 MG PO ×2 (09:00→16:40)
[2024-11-20] MEDS: PARoxetine 20 MG TABLET 40 MG BY MOUTH (09:01)
[2024-11-20] MEDS: FERROUS SULFATE 325 MG TABLET DR BY MOUTH (09:01)
[2024-11-20] MEDS: PANTOPRAZOLE 40 MG TABLET PO ×2 (09:01→22:20)
[2024-11-20] MEDS: MIDODRINE HCL 2.5 MG TABLET PO ×2 (09:01→16:40)
[2024-11-20] MEDS: levoFLOXacin 750 MG/D5W 150 ML 750 MG/150 ML BAG 100 MG IVPB (09:02)
[2024-11-20] MEDS: LIDOCAINE 5% PATCH 1 PATCH TOPICAL (09:02)
[2024-11-20] MEDS: OSELTAMIVIR PHOSPHATE 75 MG CAPSULE PO ×2 (09:04→22:20)
--- NOTE | 2024-11-20 09:09 | PCNWS ---
Weekly nutritional screen. Patient is tolerating current Heart healthy diet with adequate intake. Usually only eats 2 meals per day.. No weight loss reported. No nutritional needs at this time.
--- NOTE | 2024-11-20 10:39 | P.PNIM_ITS ---
Progress Note: A&P Assessment and Plan (1) Influenza A: Code(s): J10.1 - Influenza due to other identified influenza virus with other respiratory manifestations Status: Acute Assessment and Plan: * Influenza A positive. * Negative for COVID, RSV and Influenza B. * Tamiflu 75 mg PO q 12. * WBC 9.8>11.6>10.9>11.2>10.4. * Sa02 91% high flow nasal cannula 8 liters * Afebrile. (2) Postobstructive pneumonia: Code(s): J18.9 - Pneumonia, unspecified organism Status: Acute Assessment and Plan: * WBC 9.8>11.6>10.9>11.2>10.4. * CTA chest without PE. * Patchy bibasilar ground opacity suspicious for infection as well as left descending bronchus being largely obstructive with postobstructive consolidation noted as well. * Continue Cefepime and Levofloxacin. Flagyl discontinued. * Duoneb q 4. * Guaifenesin 1,200 mg PO q 12. * Cornet flutter valve to aid in sputum expectoration. * CPT * Dr. Mosley and Dr. Wilkins Pulmonologists following, appreciate recommendations. * Repeat CT scan in 3-6 weeks. * His urine streptococcal antigen from 11/14/2024 returned positive today. * Add PT/OT * Human Metapneumovirus from 11/17/24 is positive. * Echocardiogram ordered. * Chest CT today: FINDINGS: There is mild emphysema. There is elevation of left hemidiaphragm. There are widespread groundglass opacities and airspace opacities in right upper lobe and right lower lobe. 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 There are airspace opacities with volume loss in inferior left lung. There are centrilobular nodules and tree-in-bud opacities in left upper lobe and left lower lobe. A calcified left lung nodule and calcified left hilar and mediastinal lymph nodes are consistent with old granulomatous disease. There is bilateral pleural thickening. No significant pleural effusion. There is left atrial enlargement of the heart. There are coronary artery calcifications. No pericardial effusion. Calcifications in the liver and spleen are consistent with old granulomatous disease. There is a 3.8 cm cyst in right kidney. There are surgical changes of the stomach. Epidural electrodes are noted. There is severe cervical spondylosis and mild thoracic spondylosis. There is mild chronic anterior wedging of T10-L1 vertebral bodies. IMPRESSION: 1. Diffuse lung disease with worsening on the right and improvement on the left, consistent with pneumonia. 2. Mild emphysema. (3) COPD (chronic obstructive pulmonary disease): Qualifiers: COPD type: unspecified COPD Qualified Code(s): J44.9 - Chronic obstructive pulmonary disease, unspecified Code(s): J44.9 - Chronic obstructive pulmonary disease, unspecified Status: Acute Assessment and Plan: * Duoneb q4 * Continue Cefepime and Levofloxacin. Flagyl discontinued. * Guaifenesin 1,200 mg PO q 12. * Pulmonology following, appreciate recommendations. * Repeat Chest X-ray today showed: FINDINGS The cardiomediastinal silhouette is enlarged, unchanged. Improved aeration of the right hemithorax when compared with prior. Extensive infiltration persists. The left hemithorax is clear. IMPRESSION: Improved aeration of the right hemithorax when compared with prior. Extensive infiltration persists. The left hemithorax remains clear. (4) Hypokalemia: Code(s): E87.6 - Hypokalemia Status: Acute Assessment and Plan: * Potassium 3.4. * Potassium Chloride 40 meq PO x 1. * Monitor labs. Plan Patient wishes to be full code Subjective Date/time seen: 11/20/24 10:39 Interval history: Patient reports shortness of breath at rest at times. Patient denies chest pain, palpitations, headache, dizziness, nausea, or vomiting. Daughter at bedside. Review of Systems Review of Systems: All systems reviewed & are unremarkable except as noted in HPI and below Exam Const: General: comfortable and no acute distress Resp: Auscultation: diminished lung sounds Other: improved air movement. Faint crackles. Cardio: Rate: regular rate Rhythm: regular rhythm Other: Telemetry SR- 81 GI: GI Palp: Yes Soft to palpation Auscultation: normal bowel sounds Neuro: Speech: normal speech Extrem: General: no pedal edema Psych: Mental Status: mental status grossly normal Affect: normal affect Objective Data Vital Signs Vital Signs: Vital Signs - 24 hr 11/19/24 12:00 11/19/24 12:00 11/19/24 12:20 Temperature 97.6 F Pulse Rate 78 72 Respiratory Rate 16 Blood Pressure 142/57 H Pulse Oximetry 96 93 Oxygen Delivery High Flow Nasal Cannula Oxygen Flow Rate 8 11/19/24 12:20 11/19/24 12:33 11/19/24 14:00 Temperature Pulse Rate 89 78 76 Respiratory Rate 20 20 Blood Pressure Pulse Oximetry Oxygen Delivery Oxygen Flow Rate 11/19/24 15:22 11/19/24 15:22 11/19/24 15:35 Temperature Pulse Rate 89 85 Respiratory Rate 20 20 Blood Pressure Pulse Oximetry 95 Oxygen Delivery High Flow Nasal Cannula Oxygen Flow Rate 12 11/19/24 16:00 11/19/24 16:00 11/19/24 18:00 Temperature 98.0 F Pulse Rate 90 99 86 Respiratory Rate 28 H Blood Pressure 108/55 L Pulse Oximetry 92 Oxygen Delivery Oxygen Flow Rate 11/19/24 20:00 11/19/24 20:00 11/19/24 20:43 Temperature 98.1 F Pulse Rate 91 90 77 Respiratory Rate 24 H 22 H Blood Pressure 122/62 Pulse Oximetry 93 97 Oxygen Delivery High Flow Nasal Cannula Oxygen Flow Rate 10 11/19/24 20:43 11/19/24 20:57 11/19/24 21:30 Temperature Pulse Rate 88 88 Respiratory Rate 22 H 22 H Blood Pressure Pulse Oximetry 93 Oxygen Delivery High Flow Nasal Cannula Oxygen Flow Rate 10 11/19/24 22:00 11/19/24 23:37 11/20/24 00:00 Temperature 98.0 F Pulse Rate 86 82 89 Respiratory Rate 18 Blood Pressure 120/65 Pulse Oximetry 92 Oxygen Delivery Oxygen Flow Rate 11/20/24 00:10 11/20/24 00:14 11/20/24 00:28 Temperature Pulse Rate 85 84 Respiratory Rate 20 20 Blood Pressure Pulse Oximetry 94 Oxygen Delivery High Flow Nasal Cannula Oxygen Flow Rate 10 11/20/24 01:00 11/20/24 02:00 11/20/24 03:27 Temperature Pulse Rate 101 H 88 Respiratory Rate 20 Blood Pressure Pulse Oximetry 92 Oxygen Delivery High Flow Nasal Cannula Oxygen Flow Rate 12 11/20/24 03:39 11/20/24 04:00 11/20/24 04:00 Temperature 97.6 F Pulse Rate 88 83 81 Respiratory Rate 20 20 Blood Pressure 134/80 Pulse Oximetry 98 Oxygen Delivery Oxygen Flow Rate 11/20/24 04:10 11/20/24 06:00 11/20/24 07:03 Temperature Pulse Rate 83 84 Respiratory Rate 18 Blood Pressure Pulse Oximetry 96 95 Oxygen Delivery High Flow Nasal Cannula High Flow Nasal Cannula Oxygen Flow Rate 12 10 11/20/24 07:03 11/20/24 07:13 11/20/24 07:34 Temperature 98.3 F Pulse Rate 84 86 84 Respiratory Rate 18 18 18 Blood Pressure 117/66 Pulse Oximetry 97 Oxygen Delivery Oxygen Flow Rate Intake/Output Intake/Output: Intake & Output 11/17/24 11/18/24 11/19/24 11/20/24 23:59 23:59 23:59 23:59 Intake Total 1430 1490 1750 550 Output Total 2225 2100 1200 1500 Balance -795 -610 550 -950 Meds/Results Medications: Active Medications Generic Name Dose Route Start Last Admin Trade Name Freq PRN Reason Stop Dose Admin Acetaminophen 650 mg 11/13/24 21:48 11/17/24 16:41 Acetaminophen 325 Mg Tablet PO 650 mg Q4H PRN Administration Mild Pain (1-3) or Fever Albuterol/Ipratropium 3 ml 11/17/24 08:00 11/20/24 07:04 Ipratropium 0.5 Mg/Albuterol Sulfate 2.5 Mg Ampul.Neb 3 Ml INHALATION 3 ml Q4HRT DANE Administration Bupropion HCl 300 mg 11/14/24 09:00 11/20/24 09:00 Bupropion Hcl Xl (24 Hr) 150 Mg Tabcr BY MOUTH 300 mg DAILY DANE Administration Ferrous Sulfate 325 mg 11/14/24 09:00 11/20/24 09:01 Ferrous Sulfate [address] BY MOUTH 325 mg DAILY DANE Administration Guaifenesin 1,200 mg 11/14/24 10:35 11/20/24 09:00 Guaifenesin 12 Hr 600 Mg Tabcr PO 1,200 mg Q12HR DANE Administration Metronidazole 500 mg in 100 mls @ 100 mls/hr 11/14/24 03:00 11/20/24 04:20 Flagyl 500 Mg/Iso Soln 100 Ml IVPB Infused Q8H DANE Infusion Cefepime HCl 2 gm in 50 mls @ 100 mls/hr 11/17/24 06:00 11/20/24 06:10 Maxipime 2 Gm/Ns 50 Ml IVPB Infused Q8HR DANE Infusion Levofloxacin/Dextrose 750 mg in 150 mls @ 100 mls/hr 11/17/24 12:00 11/20/24 09:02 Levaquin 750 Mg/D5w 150 Ml IVPB 100 mls/hr DAILY DANE Administration Levetiracetam 500 mg 11/14/24 13:35 11/20/24 09:00 Levetiracetam 500 Mg Tablet PO 500 mg Q12HR DANE Administration Lidocaine 1 patch 11/14/24 09:00 11/20/24 09:02 Lidocaine 5% Patch TOPICAL 1 patch DAILY DANE Administration Lorazepam 0.5 mg 11/13/24 21:34 Lorazepam (*Crx) 0.5 Mg Tablet PO ONCE PRN Agitation Lorazepam 0.5 mg 11/14/24 02:03 Lorazepam (*Crx) 0.5 Mg Tablet PO BID PRN anxiety Midodrine 2.5 mg 11/14/24 09:00 11/20/24 09:01 Midodrine Hcl 2.5 Mg Tablet PO 2.5 mg BID DANE Administration Oseltamivir Phosphate 75 mg 11/18/24 10:50 11/20/24 09:04 Oseltamivir Phosphate 75 Mg Capsule PO 11/22/24 21:01 75 mg Q12HR DANE Administration Oxycodone HCl 10 mg 11/14/24 10:50 11/20/24 09:04 Oxycodone (*Crx) 5 Mg/5 Ml Oral Soln Ir PO 10 mg Q4HR DANE Administration Pantoprazole Sodium 40 mg 11/14/24 09:00 11/20/24 09:01 Pantoprazole 40 Mg Tablet PO 40 mg Q12HR DANE Administration Paroxetine HCl 40 mg 11/14/24 09:00 11/20/24 09:01 Paroxetine 20 Mg Tablet BY MOUTH 40 mg QAM DANE Administration Pregabalin 150 mg 11/14/24 09:00 11/20/24 09:00 Pregabalin (*Crx) 75 Mg Capsule PO 150 mg BID DANE Administration Sodium Chloride 1 spray 11/19/24 22:13 11/20/24 00:02 Saline 0.65% Meir Soln 44 Ml Btl NASAL 1 spray Q6HR PRN Administration Congestion Tizanidine HCl 4 mg 11/14/24 02:03 11/17/24 16:41 Tizanidine Hcl 4 Mg Tablet PO 4 mg TID PRN Administration muscle spasticity Trazodone HCl 100 mg 02/11/25 21:00 11/19/24 21:35 Trazodone Hcl 50 Mg Tablet PO 100 mg QHS DANE Administration Radiology Results: ITS Impressions Chest CTA 11/13/24 21:03 IMPRESSION: No pulmonary embolus. No thoracic aortic dissection. Obstruction of the left lower lobe bronchus with postobstructive consolidation for which direct visualization is recommended. Additional findings within the remainder of the left as well as the remaining right lung for which infectious etiology is favored. Chest X-Ray 11/19/24 07:07 IMPRESSION: Improved aeration of the right hemithorax when compared with prior. Extensive infiltration persists. The left hemithorax remains clear. Labs Labs: Laboratory Results - last 24 hr 11/17/24 11/20/24 09:32 04:24 WBC 10.4 H RBC 4.40 L Hgb 11.3 L Hct 36.7 L MCV 83.4 MCH 25.7 L MCHC 30.8 L RDW 16.0 H Plt Count 262 MPV 9.9 Immature Gran % (Auto) 2.3 H Neut % (Auto) 73.9 H Lymph % (Auto) 9.2 L [place] % (Auto) 8.3 Eos % (Auto) 5.7 H Baso % (Auto) 0.6 Lymph # (Auto) 0.95 [place] # (Auto) 0.9 H Eos # (Auto) 0.6 H Baso # (Auto) 0.1 Abs Immat Gran (auto) 0.24 H Absolute Neuts (auto) 7.7 H Absolute Nucleated RBC 0.000 Nucleated RBC % 0.0 Sodium 138 Potassium 3.4 Chloride 104 Carbon Dioxide 32 H Anion Gap 2 L BUN 13 Creatinine 0.70 Estim Creat Clear Calc 88 Estimated GFR > 60 Glucose 86 Calcium 8.5 Magnesium 1.9 Total Bilirubin 0.6 AST 16 L ALT 8 Alkaline Phosphatase 70 Total Protein 6.0 L Albumin 2.6 L Nasal RSV Type A (PCR) Not detected Nasal RSV Type B (PCR) Not detected Chlamy pneumoniae PCR Not detected Adenovirus DNA Not detected Human Bocavirus (SEBASTIAN) Not detected Coronavirus Type OC43 Not detected Coronavirus Type HKU1 Not detected Coronavirus Type 229E Not detected Coronavirus Type NL63 Not detected Human Metapneumovir PCR Detected A Influenza A (PCR) Not detected Influenza A (H1) RNA Not detected Influenza A (H3) PCR Not detected M. pneumoniae DNA Not detected Parainfluenza PCR Not detected Parainfluenza 2 (PCR) Not detected Parainfluenza 3 RNA (PCR) Not detected Parainfluenza 4 (PCR) Not detected Rhino/Enterovirus (SEBASTIAN) Not detected SARS-CoV-2 RNA (RT-PCR) Not detected Influenza Type B (PCR) Not detected Misc Test Comment see note Quality VTE Prophylaxis VTE prophylaxis: mechanical ordered
--- NOTE | 2024-11-20 12:16 | PM.PNPUL ---
Progress Note: A&P Assessment and Plan (1) Respiratory failure with hypoxia and hypercapnia: Code(s): J96.91 - Respiratory failure, unspecified with hypoxia; J96.92 - Respiratory failure, unspecified with hypercapnia Status: Acute Assessment and Plan: This 64-year-old male patient, with a medical history of COPD and previous lung resection for lung cancer, presented with acute respiratory failure due to a lower respiratory tract infection. Testing revealed positive results for influenza A and human metapneumovirus (hMPV), and a urine test was positive for pneumococcal antigen, indicating a pneumonia likely caused by multiple infectious agents. The patient has been treated for influenza A and is currently receiving three antibiotics to address potential bacterial coinfection. Although his gas exchange has improved in the past few days, he remains on high-flow oxygen via nasal cannula with high FiO2. He continues to experience shortness of breath but does not have a fever or signs of sepsis. He has a productive cough with dark yellow sputum. Given the positive respiratory panel for hMPV and the slow response to antibiotics, it is possible that hMPV is contributing significantly to his pneumonia. Typically, pneumococcal pneumonia responds to antibiotics within 48 hours. Severe pneumonia due to hMPV has been documented in patients with underlying conditions such as COPD or compromised immune systems. Plan: Re-evaluate the patient's respiratory status with a repeat chest CT without contrast to assess the severity of pneumonia and possible left lung atelectasis, as suggested by the previous chest CT. Discontinue Flagyl at this point. Continue Tamiflu for a total of 10 days as scheduled. Repeat sputum culture and monitor arterial blood gases. Initiate DVT prophylaxis unless contraindications exist. Consider transferring to the ICU if the patient's respiratory status worsens. (2) History of lung cancer: Code(s): Z85.118 - Personal history of other malignant neoplasm of bronchus and lung Status: Acute (3) Chronic narcotic use: Code(s): F11.90 - Opioid use, unspecified, uncomplicated Status: Acute (4) Influenza A: Code(s): J10.1 - Influenza due to other identified influenza virus with other respiratory manifestations Status: Acute (5) COPD (chronic obstructive pulmonary disease): Qualifiers: COPD type: unspecified COPD Qualified Code(s): J44.9 - Chronic obstructive pulmonary disease, unspecified Code(s): J44.9 - Chronic obstructive pulmonary disease, unspecified Status: Acute Subjective Date/time seen: 11/20/24 12:16 Interval history: A 64-year-old man with a history of smoking, COPD, and lung cancer status post lung resection in 2019, as well as chronic pain managed with opioids, presented on November 14 with several days of shortness of breath. Initial testing revealed a positive result for influenza A, and a CTA showed patchy bibasilar ground-glass opacities suggestive of infection, along with possible post-obstructive consolidation in the left lower lobe. He was treated with azithromycin and Rocephin. Further testing identified a positive urine pneumococcal antigen and a respiratory panel positive for human metapneumovirus (hMPV). Approximately three days ago, his respiratory status deteriorated, with chest imaging showing extensive infiltrates in the right lung. He is currently on cefepime, levofloxacin, and Flagyl, and requires high-flow nasal cannula oxygen at 9-12 liters per minute. His current symptoms include a productive cough with dark yellow phlegm and persistent shortness of breath, but no fever or chills. He continues to experience shortness of breath even at rest. Exam Narrative: GENERAL APPEARANCE: Well developed, well nourished, alert and cooperative, appears to be mild respiratory distress while high-flow nasal cannula SKIN: Inspection of the skin reveals no rashes, ulcerations or petechiae. HEENT: Sclerae anicteric and conjunctivae pink and moist. Extraocular movements were intact and pupils were equal, round. Moist oral mucosa. NECK: Supple. There was no thyroid enlargement, and no tenderness, or masses were felt. CHEST: Normal AP diameter and normal contour without any kyphoscoliosis. LUNGS: Crackles in right lung posteriorly, few crackles left lung base posteriorly CARDIAC: There was a regular rate and rhythm without any murmurs, gallops, rubs. ABDOMEN: Soft and nontender with normal bowel sounds. There was no organomegaly. LYMPH NODES: No lymphadenopathy was appreciated in the neck. EXTREMITIES: No cyanosis, clubbing or edema. NEUROLOGIC: Alert and oriented x 3. Normal affect. Objective Data Vital Signs Vital Signs: Vital Signs - 24 hr 11/19/24 12:20 11/19/24 12:20 11/19/24 12:33 Temperature Pulse Rate 89 78 Respiratory Rate 20 20 Blood Pressure Pulse Oximetry 93 Oxygen Delivery High Flow Nasal Cannula Oxygen Flow Rate 8 11/19/24 14:00 11/19/24 15:22 11/19/24 15:22 Temperature Pulse Rate 76 89 Respiratory Rate 20 Blood Pressure Pulse Oximetry 95 Oxygen Delivery High Flow Nasal Cannula Oxygen Flow Rate 12 11/19/24 15:35 11/19/24 16:00 11/19/24 16:00 Temperature 36.7 C Pulse Rate 85 90 99 Respiratory Rate 20 28 H Blood Pressure 108/55 L Pulse Oximetry 92 Oxygen Delivery Oxygen Flow Rate 11/19/24 18:00 11/19/24 20:00 11/19/24 20:00 Temperature 36.7 C Pulse Rate 86 91 90 Respiratory Rate 24 H Blood Pressure 122/62 Pulse Oximetry 93 Oxygen Delivery Oxygen Flow Rate 11/19/24 20:43 11/19/24 20:43 11/19/24 20:57 Temperature Pulse Rate 77 88 88 Respiratory Rate 22 H 22 H 22 H Blood Pressure Pulse Oximetry 97 Oxygen Delivery High Flow Nasal Cannula Oxygen Flow Rate 10 11/19/24 21:30 11/19/24 22:00 11/19/24 23:37 Temperature 36.7 C Pulse Rate 86 82 Respiratory Rate 18 Blood Pressure 120/65 Pulse Oximetry 93 92 Oxygen Delivery High Flow Nasal Cannula Oxygen Flow Rate 10 11/20/24 00:00 11/20/24 00:10 11/20/24 00:14 Temperature Pulse Rate 89 85 Respiratory Rate 20 Blood Pressure Pulse Oximetry 94 Oxygen Delivery High Flow Nasal Cannula Oxygen Flow Rate 10 11/20/24 00:28 11/20/24 01:00 11/20/24 02:00 Temperature Pulse Rate 84 101 H Respiratory Rate 20 Blood Pressure Pulse Oximetry 92 Oxygen Delivery High Flow Nasal Cannula Oxygen Flow Rate 12 11/20/24 03:27 11/20/24 03:39 11/20/24 04:00 Temperature 36.4 C Pulse Rate 88 88 83 Respiratory Rate 20 20 20 Blood Pressure 134/80 Pulse Oximetry 98 Oxygen Delivery Oxygen Flow Rate 11/20/24 04:00 11/20/24 04:10 11/20/24 06:00 Temperature Pulse Rate 81 83 Respiratory Rate Blood Pressure Pulse Oximetry 96 Oxygen Delivery High Flow Nasal Cannula Oxygen Flow Rate 12 11/20/24 07:03 11/20/24 07:03 11/20/24 07:13 Temperature Pulse Rate 84 84 86 Respiratory Rate 18 18 18 Blood Pressure Pulse Oximetry 95 Oxygen Delivery High Flow Nasal Cannula Oxygen Flow Rate 10 11/20/24 07:34 11/20/24 10:37 11/20/24 10:43 Temperature 36.8 C Pulse Rate 84 86 Respiratory Rate 18 18 Blood Pressure 117/66 Pulse Oximetry 97 Oxygen Delivery High Flow Therapy with Na Oxygen Flow Rate 9 11/20/24 10:53 Temperature Pulse Rate 85 Respiratory Rate 18 Blood Pressure Pulse Oximetry Oxygen Delivery Oxygen Flow Rate Intake/Output Intake/Output: Intake & Output 11/17/24 11/18/24 11/19/24 11/20/24 23:59 23:59 23:59 23:59 Intake Total 1430 1490 1750 550 Output Total 2225 2100 1200 1500 Balance -795 -610 550 -950 Meds/Results Medications: Active Medications Generic Name Dose Route Start Last Admin Trade Name Freq PRN Reason Stop Dose Admin Acetaminophen 650 mg 11/13/24 21:48 11/17/24 16:41 Acetaminophen 325 Mg Tablet PO 650 mg Q4H PRN Administration Mild Pain (1-3) or Fever Albuterol/Ipratropium 3 ml 11/17/24 08:00 11/20/24 10:43 Ipratropium 0.5 Mg/Albuterol Sulfate 2.5 Mg Ampul.Neb 3 Ml INHALATION 3 ml Q4HRT DANE Administration Bupropion HCl 300 mg 11/14/24 09:00 11/20/24 09:00 Bupropion Hcl Xl (24 Hr) 150 Mg Tabcr BY MOUTH 300 mg DAILY DANE Administration Ferrous Sulfate 325 mg 11/14/24 09:00 11/20/24 09:01 Ferrous Sulfate [address] BY MOUTH 325 mg DAILY DANE Administration Guaifenesin 1,200 mg 11/14/24 10:35 11/20/24 09:00 Guaifenesin 12 Hr 600 Mg Tabcr PO 1,200 mg Q12HR DANE Administration Metronidazole 500 mg in 100 mls @ 100 mls/hr 11/14/24 03:00 11/20/24 11:31 Flagyl 500 Mg/Iso Soln 100 Ml IVPB 100 mls/hr Q8H DANE Administration Cefepime HCl 2 gm in 50 mls @ 100 mls/hr 11/17/24 06:00 11/20/24 06:10 Maxipime 2 Gm/Ns 50 Ml IVPB Infused Q8HR DANE Infusion Levofloxacin/Dextrose 750 mg in 150 mls @ 100 mls/hr 11/17/24 12:00 11/20/24 09:02 Levaquin 750 Mg/D5w 150 Ml IVPB 100 mls/hr DAILY DANE Administration Levetiracetam 500 mg 11/14/24 13:35 11/20/24 09:00 Levetiracetam 500 Mg Tablet PO 500 mg Q12HR DANE Administration Lidocaine 1 patch 11/14/24 09:00 11/20/24 09:02 Lidocaine 5% Patch TOPICAL 1 patch DAILY DANE Administration Lorazepam 0.5 mg 11/13/24 21:34 Lorazepam (*Crx) 0.5 Mg Tablet PO ONCE PRN Agitation Lorazepam 0.5 mg 11/14/24 02:03 Lorazepam (*Crx) 0.5 Mg Tablet PO BID PRN anxiety Midodrine 2.5 mg 11/14/24 09:00 11/20/24 09:01 Midodrine Hcl 2.5 Mg Tablet PO 2.5 mg BID DANE Administration Oseltamivir Phosphate 75 mg 11/18/24 10:50 11/20/24 09:04 Oseltamivir Phosphate 75 Mg Capsule PO 11/22/24 21:01 75 mg Q12HR DANE Administration Oxycodone HCl 10 mg 11/14/24 10:50 11/20/24 09:04 Oxycodone (*Crx) 5 Mg/5 Ml Oral Soln Ir PO 10 mg Q4HR DANE Administration Pantoprazole Sodium 40 mg 11/14/24 09:00 11/20/24 09:01 Pantoprazole 40 Mg Tablet PO 40 mg Q12HR DANE Administration Paroxetine HCl 40 mg 11/14/24 09:00 11/20/24 09:01 Paroxetine 20 Mg Tablet BY MOUTH 40 mg QAM DANE Administration Pregabalin 150 mg 11/14/24 09:00 11/20/24 09:00 Pregabalin (*Crx) 75 Mg Capsule PO 150 mg BID DANE Administration Sodium Chloride 1 spray 11/19/24 22:13 11/20/24 00:02 Saline 0.65% Meir Soln 44 Ml Btl NASAL 1 spray Q6HR PRN Administration Congestion Tizanidine HCl 4 mg 11/14/24 02:03 11/17/24 16:41 Tizanidine Hcl 4 Mg Tablet PO 4 mg TID PRN Administration muscle spasticity Trazodone HCl 100 mg 11/14/24 21:00 11/19/24 21:35 Trazodone Hcl 50 Mg Tablet PO 100 mg QHS DANE Administration Radiology Results: ITS Impressions Chest CTA 11/13/24 21:03 IMPRESSION: No pulmonary embolus. No thoracic aortic dissection. Obstruction of the left lower lobe bronchus with postobstructive consolidation for which direct visualization is recommended. Additional findings within the remainder of the left as well as the remaining right lung for which infectious etiology is favored. Chest X-Ray 11/19/24 07:07 IMPRESSION: Improved aeration of the right hemithorax when compared with prior. Extensive infiltration persists. The left hemithorax remains clear. Labs Labs: Laboratory Results - last 24 hr 11/17/24 11/20/24 09:32 04:24 WBC 10.4 H RBC 4.40 L Hgb 11.3 L Hct 36.7 L MCV 83.4 MCH 25.7 L MCHC 30.8 L RDW 16.0 H Plt Count 262 MPV 9.9 Immature Gran % (Auto) 2.3 H Neut % (Auto) 73.9 H Lymph % (Auto) 9.2 L [place] % (Auto) 8.3 Eos % (Auto) 5.7 H Baso % (Auto) 0.6 Lymph # (Auto) 0.95 [place] # (Auto) 0.9 H Eos # (Auto) 0.6 H Baso # (Auto) 0.1 Abs Immat Gran (auto) 0.24 H Absolute Neuts (auto) 7.7 H Absolute Nucleated RBC 0.000 Nucleated RBC % 0.0 Sodium 138 Potassium 3.4 Chloride 104 Carbon Dioxide 32 H Anion Gap 2 L BUN 13 Creatinine 0.70 Estim Creat Clear Calc 88 Estimated GFR > 60 Glucose 86 Calcium 8.5 Magnesium 1.9 Total Bilirubin 0.6 AST 16 L ALT 8 Alkaline Phosphatase 70 Total Protein 6.0 L Albumin 2.6 L Nasal RSV Type A (PCR) Not detected Nasal RSV Type B (PCR) Not detected Chlamy pneumoniae PCR Not detected Adenovirus DNA Not detected Human Bocavirus (SEBASTIAN) Not detected Coronavirus Type OC43 Not detected Coronavirus Type HKU1 Not detected Coronavirus Type 229E Not detected Coronavirus Type NL63 Not detected Human Metapneumovir PCR Detected A Influenza A (PCR) Not detected Influenza A (H1) RNA Not detected Influenza A (H3) PCR Not detected M. pneumoniae DNA Not detected Parainfluenza PCR Not detected Parainfluenza 2 (PCR) Not detected Parainfluenza 3 RNA (PCR) Not detected Parainfluenza 4 (PCR) Not detected Rhino/Enterovirus (SEBASTIAN) Not detected SARS-CoV-2 RNA (RT-PCR) Not detected Influenza Type B (PCR) Not detected Misc Test Comment see note
[2024-11-20 12:47] LABS: Alveolar/Arterial O2 Gradient 247.6 mmHg; Base Excess ABG 6.5 mEq/l (+/-2.0); Fractional Inspired Oxygen 52 %; HCO3 ABG 31.1 mEq/l (22.0-26.0); Oxygen Saturation ABG 95.2 % (95.0-100.0); Oxyhemoglobin 94.4 % THb (90.0-100.0); PCO2 ABG 45.1 mmHg (35.0-45.0); PO2 ABG 72.7 mmHg (80.0-100.0); pH ABG 7.457 (7.350-7.450)
[2024-11-20 12:48] LABS: Device HIGH FLOW NASAL CANN; Modified Allen's Test Pass; Site Drawn RIGHT RADIAL
[2024-11-20 14:24] LABS: Alpha-1-Antitrypsin, QN 237 mg/dL (83-199)
--- NOTE | 2024-11-20 15:35 | PCOTNOTE ---
Attempted to see patient for OT evaluation. Patient refusing any/all activity at this time. Will continue to attempt.
[2024-11-20 22:11] LABS: Alveolar/Arterial O2 Gradient 479.4 mmHg; Base Excess ABG 6.3 mEq/l (+/-2.0); Fractional Inspired Oxygen 80 %; HCO3 ABG 30.3 mEq/l (22.0-26.0); Oxygen Content ABG 14.8 %vol (16.0-22.0); PCO2 ABG 41.1 mmHg (35.0-45.0); Total Hemoglobin 12.3 g/dL (12.0-18.0); pH ABG 7.485 (7.350-7.450)
[2024-11-20 22:15] LABS: Oxygen Saturation ABG 86.6 % (95.0-100.0); PO2 ABG 47.9 mmHg (80.0-100.0)
[2024-11-20 22:17] LABS: Device HIGH FLOW THERAPY; Modified Allen's Test Pass; Oxyhemoglobin 85.6 % THb (90.0-100.0); Site Drawn LEFT RADIAL
[2024-11-21] VITALS (30 sets, daily range): BP systolic 94–136; BP diastolic 67–80; PULSE 71–94; RESP 18–24; TEMP 36.4–36.9; O2SAT 92–100
--- NOTE | 2024-11-21 | ECHO_ITS ---
Patient Info Name: Kiran Smith Age: 64 years : 1960 Gender: Male Ht: 68 in Wt: 168 lbs BSA: 1.92 m2 HR: 81 bpm BP: 122 / 74 mmHg Technical Quality: Good Exam Date: 11/21/2024 10:27 AM Exam Location: Echo Lab Exam Room: [facility] Patient Status: Inpatient Admit Date: 11/13/2024 Staff Ordering Physician: Christin Billingsley APRN [employer] Operator: Attending Provider: Jazmin Bell MD Referring Physician: Jose Cruz SIDHU; Exam Type: CA echo doppler color flow Study Info Indications - SOB, DIASTOLIC DYSFUNCTION Complete two-dimensional, color flow and Doppler transthoracic echocardiogram is performed. Summary 1. Technically difficult study with limited views. 2. Left ventricular chamber dimension is normal. 3. Left ventricular systolic function is normal, estimated at 55-60%. 4. The left ventricular diastolic function is grade I diastolic dysfunction. 5. Right ventricular systolic function is normal. 6. Left atrial chamber dimension is mildly enlarged. 7. Right atrial chamber dimension is mildly enlarged. 8. No significant valvular disease. Left Ventricle Left ventricular chamber dimension is normal. Left ventricular systolic function is normal, estimated at 55-60%. There is no increased left ventricular wall thickness. The left ventricular diastolic function is grade I diastolic dysfunction. Right Ventricle Right ventricular chamber dimension is normal. Right ventricular systolic function is normal. Left Atria Left atrial chamber dimension is mildly enlarged. Right Atria Right atrial chamber dimension is mildly enlarged. Atrial Septum Intact interatrial septum visualized by color flow imaging. Aortic Valve The aortic valve is trileaflet. There is no aortic valve stenosis. There is no aortic valve regurgitation. Pulmonic Valve The pulmonic valve is not well visualized. Mitral Valve There is trace mitral valve regurgitation. Tricuspid Valve There is trace tricuspid valve regurgitation. Pericardium/Pleural There is no pericardial effusion. Inferior Vena Cava Inferior vena cava is not well visualized. Aorta The aortic root size at the sinus of Valsalva is normal. Left Ventricular Outflow Tract Name Value Normal LVOT 2D LVOT Diameter 2.4 cm LVOT Doppler LVOT Peak Gradient 3 mmHg LVOT Mean Gradient 2 mmHg LVOT VTI 20 cm LVOT VTI/AV VTI Ratio 0.8 LVOT Stroke Volume 91 ml LVOT CO 7.1 l/min LVOT CI 3.7 l/min/m2 Pulmonic Valve Name Value Normal PV Doppler PV Peak Gradient 3 mmHg Mitral Valve Name Value Normal MV Doppler MV Peak Gradient 4 mmHg MV Mean Gradient 1 mmHg MV Decel [place] 327 cm/s2 MV PHT 56 ms MV Area (PHT) 3.9 cm2 4.0-5.0 MV Area (Cont Eq VTI) 3.8 cm2 MV Diastolic Function MV E Peak Velocity 63 cm/s MV A Peak Velocity 95 cm/s MV E/A 0.7 MV Decel Time 192 ms MV Annular TDI MV E/e' (Septal) 9.5 <=8.0 MV E/e' (Lateral) 8.0 <=8.0 MV E/e' (Average) 8.8 Tricuspid Valve Name Value Normal TV Regurgitation Doppler TR Peak Velocity 323 cm/s TR Peak Gradient 42 mmHg Aortic Valve Name Value Normal AV Doppler AV Peak Velocity 118 cm/s AV Peak Gradient 6 mmHg AV Mean Gradient 3 mmHg AV VTI 25 cm AV Area (Cont Eq VTI) 3.7 cm2 >=3.0 AV Area (Cont Eq Khoi) 3.9 cm2 AV Regurgitation 2D LVOT Area 4.7 cm2 Ventricles Name Value Normal LV Dimensions 2D/MM IVS Diastolic Thickness (2D) 0.9 cm 0.6-1.0 LVID Diastole (2D) 5.0 cm 4.2-5.8 LVIW Diastolic Thickness (2D) 0.8 cm 0.6-1.0 LVID Systole (2D) 3.4 cm 2.5-4.0 LVOT Diameter 2.4 cm LV Mass (2D Cubed) 148.02 g 88.00-224.00 LV Mass Index (2D Cubed) 77 g/m2 49-115 Relative Wall Thickness (2D) 0.34 LV Fractional Shortening/Ejection Fraction 2D/MM LV Fractional Shortening (2D) 32 % 25-43 LV EF (2D Teicholz) 60 % 52-72 LV Diastolic Volume (4C MOD) 134 ml LV EF (4C MOD) 60 % LV Diastolic Length (4C) 8.8 cm LV Systolic Length (4C) 7.5 cm LV Stroke Volume (4C MOD) 81 ml Atria Name Value Normal LA Dimensions LA Volume (4C A-L) 80 ml RA Dimensions RA Area (4C) 17.1 cm2 <=18.0 Report Signatures
[2024-11-21] MEDS: IPRATROPIUM 0.5 MG/ALBUTEROL SULFATE 2.5 MG AMPUL.NEB 3 ML INHALATION ×7 (00:02→23:17)
--- NOTE | 2024-11-21 02:54 | PM.EVENT ---
Event Note Event Note Event Note: 11/20/2024 at 21:45
[2024-11-21 05:19] LABS: Basophils Percent Auto 0.5 % (0.2-1.2); Eosinophils Absolute Auto 0.5 K/mm3 (0-0.3); Eosinophils Percent Auto 6.1 % (0-4.4); Hematocrit 36.3 % (42.0-52.0); Hemoglobin 11.6 g/dL (14.0-18.0); Immature Granulocyte Absolute 0.16 K/mm3 (0.00-0.031); Immature Granulocyte Percent A 1.8 % (0-0.5); Lymphocytes Absolute Auto 0.83 K/mm3 (0.9-3.2); Lymphocytes Percent Auto 9.4 % (18.3-44.2); Mean Corpuscular Hemoglobin 26.6 pg (26-34); Mean Corpuscular Volume 83.3 fl (80-100); Mean Platelet Volume 9.9 fl (7.4-10.4); Monocytes Absolute Auto 0.8 K/mm3 (0.1-0.6); Monocytes Percent Auto 8.6 % (2.6-8.5); Neutrophils Absolute Auto 6.5 K/mm3 (1.3-6.7); Neutrophils Percent Auto 73.6 % (45.5-73.1); Platelet Count Result 275 k/mm3 (150-375); Red Blood Count 4.36 M/mm3 (4.6-6.20); White Blood Count 8.8 K/mm3 (4.5-10.0)
[2024-11-21 05:39] LABS: Alanine Aminotransferase 8 U/L (6-50); Albumin Level 2.6 g/dL (3.5-5.1); Alkaline Phosphatase 67 U/L (38-126); Anion Gap 4 mmol/L (4-12); Aspartate Amino Transferase 18 U/L (17-59); Bilirubin,Total 0.6 mg/dL (0.2-1.3); Blood Urea Nitrogen 13 mg/dL (9-20); Calcium 8.5 mg/dL (8.4-10.2); Carbon Dioxide 33 mmol/L (22-30); Chloride 102 mmol/L (98-107); Estimated CRCL calculation 77 ml/min; Estimated Glomerular Filt Rate > 60; Glucose 85 mg/dL (65-110); Magnesium 1.9 mg/dL (1.6-2.3); Sodium 139 mmol/L (137-145)
[2024-11-21] MEDS: CEFEPIME 2 GM/NS 50 ML 2 GM/50 ML BAG IVPB ×3 (06:34→21:34)
[2024-11-21] MEDS: oxyCODONE (*CRX) 5 MG/5 ML ORAL SOLN IR 10 MG PO (06:38)
[2024-11-21] MEDS: LIDOCAINE 5% PATCH 1 PATCH TOPICAL (08:49)
[2024-11-21] MEDS: guaiFENesin 12 HR 600 MG TABCR 1200 MG PO ×2 (08:49→20:31)
[2024-11-21] MEDS: buPROPion HCL XL (24 HR) 150 MG TABCR 300 MG BY MOUTH (08:49)
[2024-11-21] MEDS: MIDODRINE HCL 2.5 MG TABLET PO ×2 (08:49→16:32)
[2024-11-21] MEDS: levETIRAcetam 500 MG TABLET PO ×2 (08:49→20:31)
[2024-11-21] MEDS: PARoxetine 20 MG TABLET 40 MG BY MOUTH (08:49)
[2024-11-21] MEDS: PREGABALIN (*CRX) 75 MG CAPSULE 150 MG PO ×2 (08:49→16:33)
[2024-11-21] MEDS: PANTOPRAZOLE 40 MG TABLET PO ×2 (08:49→20:31)
[2024-11-21] MEDS: ENOXAPARIN 40 MG/0.4 ML SYRINGE SUB-Q (08:50)
[2024-11-21] MEDS: levoFLOXacin 750 MG/D5W 150 ML 750 MG/150 ML BAG 100 MG IVPB (08:50)
[2024-11-21] MEDS: OSELTAMIVIR PHOSPHATE 75 MG CAPSULE PO ×2 (08:54→20:31)
--- NOTE | 2024-11-21 10:28 | P.PNIM_ITS ---
Progress Note: A&P Assessment and Plan (1) Influenza A: Code(s): J10.1 - Influenza due to other identified influenza virus with other respiratory manifestations Status: Acute Assessment and Plan: * Influenza A positive. * Negative for COVID, RSV and Influenza B. * Tamiflu 75 mg PO q 12. * WBC 9.8>11.6>10.9>11.2>10.4>8.8. * Sa02 96% high flow nasal cannula 45 liters with F102 100%. * Afebrile. (2) Postobstructive pneumonia: Code(s): J18.9 - Pneumonia, unspecified organism Status: Acute Assessment and Plan: * WBC 9.8>11.6>10.9>11.2>10.4>8.8. * CTA chest without PE. * Patchy bibasilar ground opacity suspicious for infection as well as left descending bronchus being largely obstructive with postobstructive consolidation noted as well. * Continue Cefepime and Levofloxacin. Flagyl discontinued. * Duoneb q 4. * Guaifenesin 1,200 mg PO q 12. * Cornet flutter valve to aid in sputum expectoration. * CPT * Dr. Mosley and Dr. Wilkins Pulmonologists following, appreciate recommendations. * Repeat CT scan in 3-6 weeks. * His urine streptococcal antigen from 11/14/2024 returned positive today. * Add PT/OT * Human Metapneumovirus from 11/17/24 is positive. * Echocardiogram ordered. * Chest CT 11/20/24: FINDINGS: There is mild emphysema. There is elevation of left hemidiaphragm. There are widespread groundglass opacities and airspace opacities in right upper lobe and right lower lobe. 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 There are airspace opacities with volume loss in inferior left lung. There are centrilobular nodules and tree-in-bud opacities in left upper lobe and left lower lobe. A calcified left lung nodule and calcified left hilar and mediastinal lymph nodes are consistent with old granulomatous disease. There is bilateral pleural thickening. No significant pleural effusion. There is left atrial enlargement of the heart. There are coronary artery calcifications. No pericardial effusion. Calcifications in the liver and spleen are consistent with old granulomatous disease. There is a 3.8 cm cyst in right kidney. There are surgical changes of the stomach. Epidural electrodes are noted. There is severe cervical spondylosis and mild thoracic spondylosis. There is mild chronic anterior wedging of T10-L1 vertebral bodies. IMPRESSION: 1. Diffuse lung disease with worsening on the right and improvement on the left, consistent with pneumonia. 2. Mild emphysema. * LE dopplers negative. * Sa02 96% high flow nasal cannula 45 liters with F102 100%. * Patient given Lasix 20 mg ivp x1. * Blood cultures negative. (3) COPD (chronic obstructive pulmonary disease): Qualifiers: COPD type: unspecified COPD Qualified Code(s): J44.9 - Chronic obstructive pulmonary disease, unspecified Code(s): J44.9 - Chronic obstructive pulmonary disease, unspecified Status: Acute Assessment and Plan: * Duoneb q4 * Continue Cefepime and Levofloxacin. Flagyl discontinued. * Guaifenesin 1,200 mg PO q 12. * Pulmonology following, appreciate recommendations. * Repeat Chest X-ray today showed: Impression: Extensive right basilar and right perihilar pneumonia. Minimal right pleural effusion. Minimal left basilar atelectasis. (4) Hypokalemia: Code(s): E87.6 - Hypokalemia Status: Acute Assessment and Plan: * Potassium 4.0. * Monitor labs. (5) Back pain: Qualifiers: Back pain location: thoracic back pain Chronicity: unspecified Back pain laterality: unspecified Qualified Code(s): M54.6 - Pain in thoracic spine Code(s): M54.9 - Dorsalgia, unspecified Status: Acute Assessment and Plan: * Oxycodone for pain. Plan Patient wishes to be full code Subjective Date/time seen: 11/21/24 10:28 Interval history: Patient reports not feeling too well. Patient having shortness of breath at times. Coughing up greenish rosenbaum sputum. at bedside. Denies chest pain or palpitations. Pain in back is a 6 , constant, and aching. Review of Systems Review of Systems: All systems reviewed & are unremarkable except as noted in HPI and below Exam Const: General: no acute distress and uncomfortable Resp: Effort & Inspection: normal respiratory effort Auscultation: crackles Cardio: Rate: regular rate Rhythm: regular rhythm Other: Telemetry SR 80 GI: GI Palp: Yes Soft to palpation Auscultation: normal bowel sounds Neuro: Speech: normal speech Extrem: General: no pedal edema Psych: Mental Status: mental status grossly normal Affect: normal affect Objective Data Vital Signs Vital Signs: Vital Signs - 24 hr 11/20/24 10:37 11/20/24 10:43 11/20/24 10:53 Temperature Pulse Rate 86 85 Respiratory Rate 18 18 Blood Pressure Pulse Oximetry Oxygen Delivery High Flow Therapy with Na Oxygen Flow Rate 9 Fraction of Inspired Oxygen 11/20/24 11:50 11/20/24 12:00 11/20/24 14:00 Temperature 97.9 F Pulse Rate 80 85 83 Respiratory Rate 16 Blood Pressure 119/77 Pulse Oximetry 95 Oxygen Delivery Oxygen Flow Rate Fraction of Inspired Oxygen 11/20/24 14:55 11/20/24 15:05 11/20/24 16:00 Temperature 97.8 F Pulse Rate 84 86 84 Respiratory Rate 18 18 24 H Blood Pressure 105/64 Pulse Oximetry 100 Oxygen Delivery Oxygen Flow Rate Fraction of Inspired Oxygen 11/20/24 16:00 11/20/24 18:00 11/20/24 19:35 Temperature Pulse Rate 82 84 Respiratory Rate Blood Pressure Pulse Oximetry 83 L Oxygen Delivery High Flow Nasal Cannula Oxygen Flow Rate 10 Fraction of Inspired Oxygen 11/20/24 19:36 11/20/24 19:45 11/20/24 19:55 Temperature Pulse Rate 87 Respiratory Rate 18 Blood Pressure Pulse Oximetry 85 L 92 Oxygen Delivery High Flow Nasal Cannula High Flow Nasal Cannula Oxygen Flow Rate 15 40 Fraction of Inspired Oxygen 80 11/20/24 20:00 11/20/24 20:00 11/20/24 20:00 Temperature 97.7 F Pulse Rate 84 87 Respiratory Rate 28 H Blood Pressure 114/58 L Pulse Oximetry 96 89 L Oxygen Delivery High Flow Therapy with Na Oxygen Flow Rate 8 Fraction of Inspired Oxygen 11/20/24 20:04 11/20/24 22:00 11/20/24 22:15 Temperature Pulse Rate 86 83 Respiratory Rate 18 Blood Pressure Pulse Oximetry 87 L Oxygen Delivery Oxygen Flow Rate 40 Fraction of Inspired Oxygen 80 11/20/24 22:37 11/21/24 00:00 11/21/24 00:00 Temperature 98.3 F Pulse Rate 86 Respiratory Rate 20 Blood Pressure 127/79 Pulse Oximetry 97 99 98 Oxygen Delivery High Flow Nasal Cannula High Flow Therapy with Na Oxygen Flow Rate 45 45 Fraction of Inspired Oxygen 100 95 11/21/24 00:00 11/21/24 00:05 11/21/24 00:21 Temperature Pulse Rate 86 88 89 Respiratory Rate 18 18 Blood Pressure Pulse Oximetry Oxygen Delivery Oxygen Flow Rate Fraction of Inspired Oxygen 11/21/24 02:00 11/21/24 02:00 11/21/24 04:00 Temperature Pulse Rate 83 Respiratory Rate Blood Pressure Pulse Oximetry 97 98 Oxygen Delivery High Flow Therapy with Na High Flow Therapy with Na Oxygen Flow Rate 45 45 Fraction of Inspired Oxygen 90 85 11/21/24 04:00 11/21/24 04:00 11/21/24 04:37 Temperature 97.7 F Pulse Rate 81 78 80 Respiratory Rate 20 18 Blood Pressure 128/75 Pulse Oximetry 100 Oxygen Delivery Oxygen Flow Rate Fraction of Inspired Oxygen 11/21/24 04:41 11/21/24 04:46 11/21/24 06:00 Temperature Pulse Rate 88 86 Respiratory Rate 18 Blood Pressure Pulse Oximetry 98 Oxygen Delivery High Flow Therapy with Na Oxygen Flow Rate 45 Fraction of Inspired Oxygen 80 11/21/24 07:56 11/21/24 07:56 11/21/24 08:00 Temperature 97.6 F Pulse Rate 82 82 82 Respiratory Rate 18 22 H Blood Pressure 122/74 Pulse Oximetry 98 96 Oxygen Delivery High Flow Therapy with Na Oxygen Flow Rate 45 Fraction of Inspired Oxygen 80 11/21/24 08:18 11/21/24 08:20 Temperature Pulse Rate 81 Respiratory Rate 18 Blood Pressure Pulse Oximetry 97 Oxygen Delivery High Flow Therapy with Na Oxygen Flow Rate 45 Fraction of Inspired Oxygen 70 Intake/Output Intake/Output: Intake & Output 11/18/24 11/19/24 11/20/24 11/21/24 23:59 23:59 23:59 23:59 Intake Total 1490 1750 1760 300 Output Total 2100 1200 1875 1000 Balance -610 332 -204 -804 Meds/Results Medications: Active Medications Generic Name Dose Route Start Last Admin Trade Name Freq PRN Reason Stop Dose Admin Acetaminophen 650 mg 11/13/24 21:48 11/17/24 16:41 Acetaminophen 325 Mg Tablet PO 650 mg Q4H PRN Administration Mild Pain (1-3) or Fever Albuterol/Ipratropium 3 ml 11/17/24 08:00 11/21/24 07:55 Ipratropium 0.5 Mg/Albuterol Sulfate 2.5 Mg Ampul.Neb 3 Ml INHALATION 3 ml Q4HRT DANE Administration Bupropion HCl 300 mg 11/14/24 09:00 11/21/24 08:49 Bupropion Hcl Xl (24 Hr) 150 Mg Tabcr BY MOUTH 300 mg DAILY DANE Administration Enoxaparin Sodium 40 mg 11/21/24 09:00 11/21/24 08:50 Enoxaparin 40 Mg/0.4 Ml Syringe SUB-Q 40 mg DAILY DANE Administration Ferrous Sulfate 325 mg 11/14/24 09:00 11/21/24 08:47 Ferrous Sulfate [address] BY MOUTH Not Given DAILY DANE Guaifenesin 1,200 mg 11/14/24 10:35 11/21/24 08:49 Guaifenesin 12 Hr 600 Mg Tabcr PO 1,200 mg Q12HR DANE Administration Cefepime HCl 2 gm in 50 mls @ 100 mls/hr 11/17/24 06:00 11/21/24 06:34 Maxipime 2 Gm/Ns 50 Ml IVPB 100 mls/hr Q8HR DANE Administration Levofloxacin/Dextrose 750 mg in 150 mls @ 100 mls/hr 11/17/24 12:00 11/21/24 08:50 Levaquin 750 Mg/D5w 150 Ml IVPB 100 mls/hr DAILY DANE Administration Levetiracetam 500 mg 11/14/24 13:35 11/21/24 08:49 Levetiracetam 500 Mg Tablet PO 500 mg Q12HR DANE Administration Lidocaine 1 patch 11/14/24 09:00 11/21/24 08:49 Lidocaine 5% Patch TOPICAL 1 patch DAILY DANE Administration Lorazepam 0.5 mg 11/13/24 21:34 Lorazepam (*Crx) 0.5 Mg Tablet PO ONCE PRN Agitation Lorazepam 0.5 mg 11/14/24 02:03 Lorazepam (*Crx) 0.5 Mg Tablet PO BID PRN anxiety Midodrine 2.5 mg 11/14/24 09:00 11/21/24 08:49 Midodrine Hcl 2.5 Mg Tablet PO 2.5 mg BID DANE Administration Oseltamivir Phosphate 75 mg 11/18/24 10:50 11/21/24 08:54 Oseltamivir Phosphate 75 Mg Capsule PO 11/23/24 09:01 75 mg Q12HR DANE Administration Oxycodone HCl 10 mg 11/21/24 12:00 Oxycodone Hcl (*Crx) 5 Mg Tab Ir PO Q6HR DANE Pantoprazole Sodium 40 mg 11/14/24 09:00 11/21/24 08:49 Pantoprazole 40 Mg Tablet PO 40 mg Q12HR DANE Administration Paroxetine HCl 40 mg 11/14/24 09:00 11/21/24 08:49 Paroxetine 20 Mg Tablet BY MOUTH 40 mg QAM DANE Administration Perflutren Lipid Microsphere 0 ml 11/20/24 15:58 Perflutren Lipid Microspheres 1.5 Ml Vial Diluted To 10 Ml Total Volume IV PUSH 11/23/24 15:58 ONCE PRN adequate visualization Protocol Pregabalin 150 mg 11/14/24 09:00 11/21/24 08:49 Pregabalin (*Crx) 75 Mg Capsule PO 150 mg BID DANE Administration Sodium Chloride 1 spray 11/19/24 22:13 11/20/24 00:02 Saline 0.65% Meir Soln 44 Ml Btl NASAL 1 spray Q6HR PRN Administration Congestion Tizanidine HCl 4 mg 11/14/24 02:03 11/17/24 16:41 Tizanidine Hcl 4 Mg Tablet PO 4 mg TID PRN Administration muscle spasticity Trazodone HCl 100 mg 11/14/24 21:00 11/20/24 22:19 Trazodone Hcl 50 Mg Tablet PO Not Given QHS COUNT INCLUDES THE [facility] Radiology Results: ITS Impressions Chest CTA 11/13/24 21:03 IMPRESSION: No pulmonary embolus. No thoracic aortic dissection. Obstruction of the left lower lobe bronchus with postobstructive consolidation for which direct visualization is recommended. Additional findings within the remainder of the left as well as the remaining right lung for which infectious etiology is favored. Chest CT 11/20/24 14:52 IMPRESSION: 1. Diffuse lung disease with worsening on the right and improvement on the left, consistent with pneumonia. 2. Mild emphysema. Venous Doppler Study 11/20/24 19:54 IMPRESSION: Patent bilateral lower extremity veins. No evidence of deep venous thrombosis. Chest X-Ray 11/20/24 22:36 IMPRESSION: Increasing subsegmental right basilar atelectasis/consolidation, otherwise unchanged pulmonary opacities. Labs Labs: Laboratory Results - last 24 hr 11/19/24 11/20/24 11/20/24 04:29 04:20 12:40 WBC RBC Hgb Hct MCV MCH MCHC RDW Plt Count MPV Immature Gran % (Auto) Neut % (Auto) Lymph % (Auto) [place] % (Auto) Eos % (Auto) Baso % (Auto) Lymph # (Auto) [place] # (Auto) Eos # (Auto) Baso # (Auto) Abs Immat Gran (auto) Absolute Neuts (auto) Absolute Nucleated RBC Nucleated RBC % Puncture Site Right radial ABG pH 7.457 H ABG pCO2 45.1 H ABG pO2 72.7 L ABG PO2/FiO2 Ratio 1.40 ABG HCO3 31.1 H ABG O2 Saturation 95.2 ABG O2 Content 16.0 ABG Base Excess 6.5 A-a Gradient 247.6 Oxyhemoglobin 94.4 Total Hemoglobin 12.0 O2 Delivery Device High flow nasal demetrice O2 Liters/Min 8.0 FiO2 52 Sodium Potassium Chloride Carbon Dioxide Anion Gap BUN Creatinine Estim Creat Clear Calc Estimated GFR Glucose Calcium Magnesium Total Bilirubin AST ALT Alkaline Phosphatase C-Reactive Protein 14.0 H Total Protein Albumin [id number] 237 H 11/20/24 11/21/24 21:56 04:37 WBC 8.8 RBC 4.36 L Hgb 11.6 L Hct 36.3 L MCV 83.3 MCH 26.6 MCHC 32.0 RDW 16.0 H Plt Count 275 MPV 9.9 Immature Gran % (Auto) 1.8 H Neut % (Auto) 73.6 H Lymph % (Auto) 9.4 L [place] % (Auto) 8.6 H Eos % (Auto) 6.1 H Baso % (Auto) 0.5 Lymph # (Auto) 0.83 L [place] # (Auto) 0.8 H Eos # (Auto) 0.5 H Baso # (Auto) 0.0 Abs Immat Gran (auto) 0.16 H Absolute Neuts (auto) 6.5 Absolute Nucleated RBC 0.000 Nucleated RBC % 0.0 Puncture Site Left radial ABG pH 7.485 H ABG pCO2 41.1 ABG pO2 47.9 L* ABG PO2/FiO2 Ratio 0.60 ABG HCO3 30.3 H ABG O2 Saturation 86.6 L* ABG O2 Content 14.8 L ABG Base Excess 6.3 A-a Gradient 479.4 Oxyhemoglobin 85.6 L* Total Hemoglobin 12.3 O2 Delivery Device High flow therapy O2 Liters/Min 40.0 FiO2 80 Sodium 139 Potassium 4.0 Chloride 102 Carbon Dioxide 33 H Anion Gap 4 BUN 13 Creatinine 0.81 Estim Creat Clear Calc 77 Estimated GFR > 60 Glucose 85 Calcium 8.5 Magnesium 1.9 Total Bilirubin 0.6 AST 18 ALT 8 Alkaline Phosphatase 67 C-Reactive Protein Total Protein 6.0 L Albumin 2.6 L [id number] Quality VTE Prophylaxis VTE prophylaxis: mechanical ordered
--- NOTE | 2024-11-21 11:15 | PM.PNPUL ---
Progress Note: A&P Assessment and Plan (1) Respiratory failure with hypoxia and hypercapnia: Code(s): J96.91 - Respiratory failure, unspecified with hypoxia; J96.92 - Respiratory failure, unspecified with hypercapnia Status: Acute Assessment and Plan: This 64-year-old male patient, with a medical history of COPD and previous lung resection for lung cancer, presented with acute respiratory failure due to a lower respiratory tract infection. Testing revealed positive results for influenza A and human metapneumovirus (hMPV), and a urine test was positive for pneumococcal antigen, indicating a pneumonia likely caused by multiple infectious agents. The patient has been treated for influenza A and is currently receiving three antibiotics to address potential bacterial coinfection. Although his gas exchange has improved in the past few days, he remains on high-flow oxygen via nasal cannula with high FiO2. He continues to experience shortness of breath but does not have a fever or signs of sepsis. He has a productive cough with dark yellow sputum. Given the positive respiratory panel for hMPV and the slow response to antibiotics, it is possible that hMPV is contributing significantly to his pneumonia. Typically, pneumococcal pneumonia responds to antibiotics within 48 hours. Severe pneumonia due to hMPV has been documented in patients with underlying conditions such as COPD or compromised immune systems. Severe pneumonia related to influenza A is highly likely as well. Chest CT done yesterday showed worsening right lung pneumonia compared to the 1st chest CT approximately a week ago. Left lung infiltrates have cleared. CRP remains elevated. Plan: Continue with the current management plan. Flagyl has been discontinued, and we will maintain the current antibiotic regimen. Mucomyst has been added to his nebulized treatments. A repeat chest X-ray is scheduled for the morning. The low albumin level is highly concerning; consider incorporating protein supplements into his diet. (2) History of lung cancer: Code(s): Z85.118 - Personal history of other malignant neoplasm of bronchus and lung Status: Acute (3) Chronic narcotic use: Code(s): F11.90 - Opioid use, unspecified, uncomplicated Status: Acute (4) Influenza A: Code(s): J10.1 - Influenza due to other identified influenza virus with other respiratory manifestations Status: Acute (5) COPD (chronic obstructive pulmonary disease): Qualifiers: COPD type: unspecified COPD Qualified Code(s): J44.9 - Chronic obstructive pulmonary disease, unspecified Code(s): J44.9 - Chronic obstructive pulmonary disease, unspecified Status: Acute Subjective Date/time seen: 11/21/24 11:15 Interval history: Patient has no new respiratory symptoms this morning. Last night he was placed on higher FiO2 via high-flow nasal cannula. Continues to have a mild cough with chest congestion, been unable to clear airways. No wheezing no fever chills continues to have poor appetite. Exam Narrative: GENERAL APPEARANCE: Well developed, well nourished, alert and cooperative, appears to be mild respiratory distress while high-flow nasal cannula SKIN: Inspection of the skin reveals no rashes, ulcerations or petechiae. HEENT: Sclerae anicteric and conjunctivae pink and moist. Extraocular movements were intact and pupils were equal, round. Moist oral mucosa. NECK: Supple. There was no thyroid enlargement, and no tenderness, or masses were felt. CHEST: Normal AP diameter and normal contour without any kyphoscoliosis. LUNGS: Crackles in right lung posteriorly, few crackles left lung base posteriorly CARDIAC: There was a regular rate and rhythm without any murmurs, gallops, rubs. ABDOMEN: Soft and nontender with normal bowel sounds. There was no organomegaly. LYMPH NODES: No lymphadenopathy was appreciated in the neck. EXTREMITIES: No cyanosis, clubbing or edema. NEUROLOGIC: Alert and oriented x 3. Normal affect. Objective Data Vital Signs Vital Signs: Vital Signs - 24 hr 11/20/24 11:50 11/20/24 12:00 11/20/24 14:00 Temperature 36.6 C Pulse Rate 80 85 83 Respiratory Rate 16 Blood Pressure 119/77 Pulse Oximetry 95 Oxygen Delivery Oxygen Flow Rate Fraction of Inspired Oxygen 11/20/24 14:55 11/20/24 15:05 11/20/24 16:00 Temperature 36.6 C Pulse Rate 84 86 84 Respiratory Rate 18 18 24 H Blood Pressure 105/64 Pulse Oximetry 100 Oxygen Delivery Oxygen Flow Rate Fraction of Inspired Oxygen 11/20/24 16:00 11/20/24 18:00 11/20/24 19:35 Temperature Pulse Rate 82 84 Respiratory Rate Blood Pressure Pulse Oximetry 83 L Oxygen Delivery High Flow Nasal Cannula Oxygen Flow Rate 10 Fraction of Inspired Oxygen 11/20/24 19:36 11/20/24 19:45 11/20/24 19:55 Temperature Pulse Rate 87 Respiratory Rate 18 Blood Pressure Pulse Oximetry 85 L 92 Oxygen Delivery High Flow Nasal Cannula High Flow Nasal Cannula Oxygen Flow Rate 15 40 Fraction of Inspired Oxygen 80 11/20/24 20:00 11/20/24 20:00 11/20/24 20:00 Temperature 36.5 C Pulse Rate 84 87 Respiratory Rate 28 H Blood Pressure 114/58 L Pulse Oximetry 96 89 L Oxygen Delivery High Flow Therapy with Na Oxygen Flow Rate 8 Fraction of Inspired Oxygen 11/20/24 20:04 11/20/24 22:00 11/20/24 22:15 Temperature Pulse Rate 86 83 Respiratory Rate 18 Blood Pressure Pulse Oximetry 87 L Oxygen Delivery Oxygen Flow Rate 40 Fraction of Inspired Oxygen 80 11/20/24 22:37 11/21/24 00:00 11/21/24 00:00 Temperature 36.8 C Pulse Rate 86 Respiratory Rate 20 Blood Pressure 127/79 Pulse Oximetry 97 99 98 Oxygen Delivery High Flow Nasal Cannula High Flow Therapy with Na Oxygen Flow Rate 45 45 Fraction of Inspired Oxygen 100 95 11/21/24 00:00 11/21/24 00:05 11/21/24 00:21 Temperature Pulse Rate 86 88 89 Respiratory Rate 18 18 Blood Pressure Pulse Oximetry Oxygen Delivery Oxygen Flow Rate Fraction of Inspired Oxygen 11/21/24 02:00 11/21/24 02:00 11/21/24 04:00 Temperature Pulse Rate 83 Respiratory Rate Blood Pressure Pulse Oximetry 97 98 Oxygen Delivery High Flow Therapy with Na High Flow Therapy with Na Oxygen Flow Rate 45 45 Fraction of Inspired Oxygen 90 85 11/21/24 04:00 11/21/24 04:00 11/21/24 04:37 Temperature 36.5 C Pulse Rate 81 78 80 Respiratory Rate 20 18 Blood Pressure 128/75 Pulse Oximetry 100 Oxygen Delivery Oxygen Flow Rate Fraction of Inspired Oxygen 11/21/24 04:41 11/21/24 04:46 11/21/24 06:00 Temperature Pulse Rate 88 86 Respiratory Rate 18 Blood Pressure Pulse Oximetry 98 Oxygen Delivery High Flow Therapy with Na Oxygen Flow Rate 45 Fraction of Inspired Oxygen 80 11/21/24 07:56 11/21/24 07:56 11/21/24 08:00 Temperature 36.4 C Pulse Rate 82 82 82 Respiratory Rate 18 22 H Blood Pressure 122/74 Pulse Oximetry 98 96 Oxygen Delivery High Flow Therapy with Na Oxygen Flow Rate 45 Fraction of Inspired Oxygen 80 11/21/24 08:18 11/21/24 08:20 Temperature Pulse Rate 81 Respiratory Rate 18 Blood Pressure Pulse Oximetry 97 Oxygen Delivery High Flow Therapy with Na Oxygen Flow Rate 45 Fraction of Inspired Oxygen 70 Intake/Output Intake/Output: Intake & Output 11/18/24 11/19/24 11/20/24 11/21/24 23:59 23:59 23:59 23:59 Intake Total 1490 1750 1760 300 Output Total 2100 1200 1875 1000 Balance -610 550 -115 -700 Meds/Results Medications: Active Medications Generic Name Dose Route Start Last Admin Trade Name Freq PRN Reason Stop Dose Admin Acetaminophen 650 mg 11/13/24 21:48 11/17/24 16:41 Acetaminophen 325 Mg Tablet PO 650 mg Q4H PRN Administration Mild Pain (1-3) or Fever Albuterol/Ipratropium 3 ml 11/17/24 08:00 11/21/24 07:55 Ipratropium 0.5 Mg/Albuterol Sulfate 2.5 Mg Ampul.Neb 3 Ml INHALATION 3 ml Q4HRT DANE Administration Bupropion HCl 300 mg 11/14/24 09:00 11/21/24 08:49 Bupropion Hcl Xl (24 Hr) 150 Mg Tabcr BY MOUTH 300 mg DAILY DANE Administration Enoxaparin Sodium 40 mg 11/21/24 09:00 11/21/24 08:50 Enoxaparin 40 Mg/0.4 Ml Syringe SUB-Q 40 mg DAILY DANE Administration Ferrous Sulfate 325 mg 11/14/24 09:00 11/21/24 08:47 Ferrous Sulfate [address] BY MOUTH Not Given DAILY DANE Guaifenesin 1,200 mg 11/14/24 10:35 11/21/24 08:49 Guaifenesin 12 Hr 600 Mg Tabcr PO 1,200 mg Q12HR DANE Administration Cefepime HCl 2 gm in 50 mls @ 100 mls/hr 11/17/24 06:00 11/21/24 06:34 Maxipime 2 Gm/Ns 50 Ml IVPB 100 mls/hr Q8HR DANE Administration Levofloxacin/Dextrose 750 mg in 150 mls @ 100 mls/hr 11/17/24 12:00 11/21/24 08:50 Levaquin 750 Mg/D5w 150 Ml IVPB 100 mls/hr DAILY DANE Administration Levetiracetam 500 mg 11/14/24 13:35 11/21/24 08:49 Levetiracetam 500 Mg Tablet PO 500 mg Q12HR DANE Administration Lidocaine 1 patch 11/14/24 09:00 11/21/24 08:49 Lidocaine 5% Patch TOPICAL 1 patch DAILY DANE Administration Lorazepam 0.5 mg 11/13/24 21:34 Lorazepam (*Crx) 0.5 Mg Tablet PO ONCE PRN Agitation Lorazepam 0.5 mg 11/14/24 02:03 Lorazepam (*Crx) 0.5 Mg Tablet PO BID PRN anxiety Midodrine 2.5 mg 11/14/24 09:00 11/21/24 08:49 Midodrine Hcl 2.5 Mg Tablet PO 2.5 mg BID DANE Administration Oseltamivir Phosphate 75 mg 11/18/24 10:50 11/21/24 08:54 Oseltamivir Phosphate 75 Mg Capsule PO 11/23/24 09:01 75 mg Q12HR DANE Administration Oxycodone HCl 10 mg 11/21/24 12:00 Oxycodone Hcl (*Crx) 5 Mg Tab Ir PO QID DANE Oxycodone HCl 10 mg 11/22/24 01:00 Oxycodone Hcl (*Crx) 5 Mg Tab Ir PO BID@0100,0500 PRN Breakthrough Pain Pantoprazole Sodium 40 mg 11/14/24 09:00 11/21/24 08:49 Pantoprazole 40 Mg Tablet PO 40 mg Q12HR DANE Administration Paroxetine HCl 40 mg 11/14/24 09:00 11/21/24 08:49 Paroxetine 20 Mg Tablet BY MOUTH 40 mg QAM DANE Administration Perflutren Lipid Microsphere 0 ml 11/20/24 15:58 Perflutren Lipid Microspheres 1.5 Ml Vial Diluted To 10 Ml Total Volume IV PUSH 11/23/24 15:58 ONCE PRN adequate visualization Protocol Pregabalin 150 mg 11/14/24 09:00 11/21/24 08:49 Pregabalin (*Crx) 75 Mg Capsule PO 150 mg BID DANE Administration Sodium Chloride 1 spray 11/19/24 22:13 11/20/24 00:02 Saline 0.65% Meir Soln 44 Ml Btl NASAL 1 spray Q6HR PRN Administration Congestion Tizanidine HCl 4 mg 11/14/24 02:03 11/17/24 16:41 Tizanidine Hcl 4 Mg Tablet PO 4 mg TID PRN Administration muscle spasticity Trazodone HCl 100 mg 11/14/24 21:00 11/20/24 22:19 Trazodone Hcl 50 Mg Tablet PO Not Given QHS [facility] Radiology Results: ITS Impressions Chest CTA 11/13/24 21:03 IMPRESSION: No pulmonary embolus. No thoracic aortic dissection. Obstruction of the left lower lobe bronchus with postobstructive consolidation for which direct visualization is recommended. Additional findings within the remainder of the left as well as the remaining right lung for which infectious etiology is favored. Chest CT 11/20/24 14:52 IMPRESSION: 1. Diffuse lung disease with worsening on the right and improvement on the left, consistent with pneumonia. 2. Mild emphysema. Venous Doppler Study 11/20/24 19:54 IMPRESSION: Patent bilateral lower extremity veins. No evidence of deep venous thrombosis. Chest X-Ray 11/20/24 22:36 IMPRESSION: Increasing subsegmental right basilar atelectasis/consolidation, otherwise unchanged pulmonary opacities. Labs Labs: Laboratory Results - last 24 hr 11/19/24 11/20/24 11/20/24 04:29 04:20 12:40 WBC RBC Hgb Hct MCV MCH MCHC RDW Plt Count MPV Immature Gran % (Auto) Neut % (Auto) Lymph % (Auto) [place] % (Auto) Eos % (Auto) Baso % (Auto) Lymph # (Auto) [place] # (Auto) Eos # (Auto) Baso # (Auto) Abs Immat Gran (auto) Absolute Neuts (auto) Absolute Nucleated RBC Nucleated RBC % Puncture Site Right radial ABG pH 7.457 H ABG pCO2 45.1 H ABG pO2 72.7 L ABG PO2/FiO2 Ratio 1.40 ABG HCO3 31.1 H ABG O2 Saturation 95.2 ABG O2 Content 16.0 ABG Base Excess 6.5 A-a Gradient 247.6 Oxyhemoglobin 94.4 Total Hemoglobin 12.0 O2 Delivery Device High flow nasal demetrice O2 Liters/Min 8.0 FiO2 52 Sodium Potassium Chloride Carbon Dioxide Anion Gap BUN Creatinine Estim Creat Clear Calc Estimated GFR Glucose Calcium Magnesium Total Bilirubin AST ALT Alkaline Phosphatase C-Reactive Protein 14.0 H Total Protein Albumin [id number] 237 H 11/20/24 11/21/24 21:56 04:37 WBC 8.8 RBC 4.36 L Hgb 11.6 L Hct 36.3 L MCV 83.3 MCH 26.6 MCHC 32.0 RDW 16.0 H Plt Count 275 MPV 9.9 Immature Gran % (Auto) 1.8 H Neut % (Auto) 73.6 H Lymph % (Auto) 9.4 L [place] % (Auto) 8.6 H Eos % (Auto) 6.1 H Baso % (Auto) 0.5 Lymph # (Auto) 0.83 L [place] # (Auto) 0.8 H Eos # (Auto) 0.5 H Baso # (Auto) 0.0 Abs Immat Gran (auto) 0.16 H Absolute Neuts (auto) 6.5 Absolute Nucleated RBC 0.000 Nucleated RBC % 0.0 Puncture Site Left radial ABG pH 7.485 H ABG pCO2 41.1 ABG pO2 47.9 L* ABG PO2/FiO2 Ratio 0.60 ABG HCO3 30.3 H ABG O2 Saturation 86.6 L* ABG O2 Content 14.8 L ABG Base Excess 6.3 A-a Gradient 479.4 Oxyhemoglobin 85.6 L* Total Hemoglobin 12.3 O2 Delivery Device High flow therapy O2 Liters/Min 40.0 FiO2 80 Sodium 139 Potassium 4.0 Chloride 102 Carbon Dioxide 33 H Anion Gap 4 BUN 13 Creatinine 0.81 Estim Creat Clear Calc 77 Estimated GFR > 60 Glucose 85 Calcium 8.5 Magnesium 1.9 Total Bilirubin 0.6 AST 18 ALT 8 Alkaline Phosphatase 67 C-Reactive Protein Total Protein 6.0 L Albumin 2.6 L [id number]
[2024-11-21] MEDS: oxyCODONE HCL (*CRX) 5 MG TAB IR 10 MG PO ×3 (12:16→21:09)
[2024-11-21 12:49] LABS: Alveolar/Arterial O2 Gradient 612.1 mmHg; Base Excess ABG 5.4 mEq/l (+/-2.0); Fractional Inspired Oxygen 100 %; HCO3 ABG 30.1 mEq/l (22.0-26.0); Oxygen Content ABG 15.9 %vol (16.0-22.0); Oxygen Saturation ABG 90.6 % (95.0-100.0); Oxyhemoglobin 89.1 % THb (90.0-100.0); PCO2 ABG 44.3 mmHg (35.0-45.0); PO2 ABG 56.6 mmHg (80.0-100.0); PO2 FiO2 Ratio Arterial Blood 0.57 %; Total Hemoglobin 12.7 g/dL (12.0-18.0)
[2024-11-21 12:54] LABS: Device HIGH FLOW THERAPY; Modified Allen's Test Pass; Site Drawn LEFT BRACHIAL
--- NOTE | 2024-11-21 13:04 | PCOTNOTE ---
Attempted to see pt. for occupational therapy evaluation. Per nursing pt. is requiring increased supplemental O2 at this time, and due to safety concerns is not approriate for therapy at this time. Following
[2024-11-21] MEDS: FUROSEMIDE INJ 40 MG/4 ML VIAL 20 MG IV PUSH (13:26)
[2024-11-21] MEDS: ACETYLCYSTEINE 20% INHAL SOLN 800 MG/4 ML VIAL 200 MG INHALATION (13:50)
--- NOTE | 2024-11-21 14:27 | PCPTNOTE ---
Attempted to see patient for PT, however per RN advised not to see patient today, patient becomes too short of breath with any activity.
--- NOTE | 2024-11-21 16:15 | PC.NURSE ---
At approximately 1215pm while this RN was in the room passing medications, the patient stated I can not breath . This RN called for assistance to pull the patient up in bed and called RT to the room for further assistance. Oxygen saturation obtained and was noted to be 82% while on vapotherm with settings 40L/70%. This RN called the instrument tech at this time to make him aware of the patient complaint. Orders received to get STAT chest x-ray and ABG. RT called and informed at this time. Guide Dog Trainer immediately came to the bedside. FiO2 increased from 70% to 100% per MD orders at this time. Patient has little reserve and small movements, including coughing puts him in distress. Oxygen saturations slowly came up to 90%. Patient stating he felt a little better. Results of ABG and Chest x-ray discussed with MD and orders received to give patient Lasix (see eMAR).
[2024-11-21] MEDS: traZODone HCL 50 MG TABLET 100 MG PO (20:31)
--- NOTE | 2024-11-21 20:38 | ECG_ITS ---
Test Date: 2024-11-21 20:50:51 Measurements Intervals [place] Rate: 82 P: 57 SD: 168 QRS: -4 QRSD: 105 T: 37 QT: 363 QTc: 426 Interpretive Statements SINUS RHYTHM DELAYED PRECORDIAL R/S TRANSITION BASELINE ARTIFACT- I, II, III, AVR, AVL, AVF, V6 BORDERLINE ECG Compared to ECG 11/13/2024 18:58:56 Myocardial infarct finding no longer present Electronically Signed On 11-22-2024 07:09:32 [employer]WALL [employer] by Victor Manuel Mackay D.O.
[2024-11-21 22:36] LABS: Troponin I < 0.012 ng/mL (0.000-0.034)
[2024-11-22] VITALS (30 sets, daily range): BP systolic 102–122; BP diastolic 61–78; PULSE 74–91; RESP 16–24; TEMP 36.6–36.9; O2SAT 91–99
[2024-11-22] MEDS: IPRATROPIUM 0.5 MG/ALBUTEROL SULFATE 2.5 MG AMPUL.NEB 3 ML INHALATION ×6 (04:30→22:50)
[2024-11-22] MEDS: oxyCODONE HCL (*CRX) 5 MG TAB IR 10 MG PO ×5 (05:15→20:55)
[2024-11-22] MEDS: CEFEPIME 2 GM/NS 50 ML 2 GM/50 ML BAG IVPB ×3 (05:15→21:00)
[2024-11-22 05:26] LABS: Basophils Absolute Auto 0.1 K/mm3 (0.0-0.1); Basophils Percent Auto 0.5 % (0.2-1.2); Eosinophils Absolute Auto 0.5 K/mm3 (0-0.3); Eosinophils Percent Auto 4.7 % (0-4.4); Hematocrit 40.4 % (42.0-52.0); Hemoglobin 12.5 g/dL (14.0-18.0); Immature Granulocyte Absolute 0.16 K/mm3 (0.00-0.031); Immature Granulocyte Percent A 1.5 % (0-0.5); Immature Platelet Fraction Pct 4.6 % (0.9-11.2); Lymphocytes Percent Auto 7.3 % (18.3-44.2); Mean Corpuscular HGB Conc 30.9 g/dl (32-36); Mean Corpuscular Hemoglobin 25.9 pg (26-34); Mean Corpuscular Volume 83.8 fl (80-100); Mean Platelet Volume 10.6 fl (7.4-10.4); Monocytes Absolute Auto 0.9 K/mm3 (0.1-0.6); Neutrophils Absolute Auto 8.6 K/mm3 (1.3-6.7); Platelet Count Result 276 k/mm3 (150-375); Red Blood Count 4.82 M/mm3 (4.6-6.20); Red Cell Distribution Width 15.9 % (11.5-14.5); White Blood Count 10.9 K/mm3 (4.5-10.0)
[2024-11-22 05:47] LABS: CRP 6.3 mg/dL (<1.0)
[2024-11-22 05:51] LABS: Platelet Estimate Adequate (Adequate)
[2024-11-22 05:52] LABS: Band Neutrophils Percent 0 % (0-6); Ovalocytes 1+; Schistocytes None Seen
[2024-11-22 05:57] LABS: Alanine Aminotransferase 9 U/L (6-50); Alkaline Phosphatase 52 U/L (38-126); Anion Gap 2 mmol/L (4-12); Aspartate Amino Transferase 31 U/L (17-59); Bilirubin,Total 0.8 mg/dL (0.2-1.3); Blood Urea Nitrogen 18 mg/dL (9-20); Calcium 8.9 mg/dL (8.4-10.2); Carbon Dioxide 38 mmol/L (22-30); Chloride 98 mmol/L (98-107); Estimated CRCL calculation 70 ml/min; Estimated Glomerular Filt Rate > 60; Glucose 92 mg/dL (65-110); Potassium 4.7 mmol/L (3.4-5.0); Sodium 138 mmol/L (137-145)
[2024-11-22] MEDS: ACETYLCYSTEINE 20% INHAL SOLN 800 MG/4 ML VIAL 200 MG INHALATION ×2 (07:35→22:51)
[2024-11-22] MEDS: levoFLOXacin 750 MG/D5W 150 ML 750 MG/150 ML BAG 100 MG IVPB (08:56)
[2024-11-22] MEDS: PREGABALIN (*CRX) 75 MG CAPSULE 150 MG PO ×2 (08:57→17:08)
[2024-11-22] MEDS: ENOXAPARIN 40 MG/0.4 ML SYRINGE SUB-Q (08:57)
[2024-11-22] MEDS: guaiFENesin 12 HR 600 MG TABCR 1200 MG PO ×2 (08:57→20:33)
[2024-11-22] MEDS: LIDOCAINE 5% PATCH 1 PATCH TOPICAL (08:57)
[2024-11-22] MEDS: MIDODRINE HCL 2.5 MG TABLET PO ×2 (08:58→17:08)
[2024-11-22] MEDS: OSELTAMIVIR PHOSPHATE 75 MG CAPSULE PO ×2 (08:58→20:33)
[2024-11-22] MEDS: FERROUS SULFATE 325 MG TABLET DR BY MOUTH (08:58)
[2024-11-22] MEDS: PARoxetine 20 MG TABLET 40 MG BY MOUTH (08:58)
[2024-11-22] MEDS: levETIRAcetam 500 MG TABLET PO ×2 (08:58→20:33)
[2024-11-22] MEDS: buPROPion HCL XL (24 HR) 150 MG TABCR 300 MG BY MOUTH (08:58)
[2024-11-22] MEDS: PANTOPRAZOLE 40 MG TABLET PO ×2 (08:58→20:33)
--- NOTE | 2024-11-22 09:16 | PM.PNPUL ---
Progress Note: A&P Assessment and Plan (1) Respiratory failure with hypoxia and hypercapnia: Code(s): J96.91 - Respiratory failure, unspecified with hypoxia; J96.92 - Respiratory failure, unspecified with hypercapnia Status: Acute Assessment and Plan: This 64-year-old male patient, with a medical history of COPD and previous lung resection for lung cancer, presented with acute respiratory failure due to a lower respiratory tract infection. Testing revealed positive results for influenza A and human metapneumovirus (hMPV), and a urine test was positive for pneumococcal antigen, indicating a pneumonia likely caused by multiple infectious agents. The patient has been treated for influenza A and is currently receiving three antibiotics to address potential bacterial coinfection. Although his gas exchange has improved in the past few days, he remains on high-flow oxygen via nasal cannula with high FiO2. He continues to experience shortness of breath but does not have a fever or signs of sepsis. He has a productive cough with dark yellow sputum. Given the positive respiratory panel for hMPV and the slow response to antibiotics, it is possible that hMPV is contributing significantly to his pneumonia. Typically, pneumococcal pneumonia responds to antibiotics within 48 hours. Severe pneumonia due to hMPV has been documented in patients with underlying conditions such as COPD or compromised immune systems. Severe pneumonia related to influenza A is is more likely in this setting. Chest CT done 2 days ago showed worsening right lung pneumonia compared to the 1st chest CT approximately a week ago. Left lung infiltrates have cleared. Clinically, the patient exhibits significant oxyhemoglobin desaturation with any movement in bed, which is associated with the near-whitening appearance of the right lung. He has experienced some chest congestion and difficulty clearing bronchial secretions due to overall weakness. He was started on nebulized Mucomyst treatment, and this morning he appears to have reduced chest congestion. Otherwise, the physical examination remains unchanged. Current testing shows that CRP levels are trending down, but the chest X-ray shows no significant clearing. His last oxygen saturation was 98% while receiving 70% FiO2. Plan: Continue with the current management strategy including DVT prophylaxis. We will maintain the current antibiotic regimen. Continue administering daily protein supplements. (2) History of lung cancer: Code(s): Z85.118 - Personal history of other malignant neoplasm of bronchus and lung Status: Acute (3) Chronic narcotic use: Code(s): F11.90 - Opioid use, unspecified, uncomplicated Status: Acute (4) Influenza A: Code(s): J10.1 - Influenza due to other identified influenza virus with other respiratory manifestations Status: Acute (5) COPD (chronic obstructive pulmonary disease): Qualifiers: COPD type: unspecified COPD Qualified Code(s): J44.9 - Chronic obstructive pulmonary disease, unspecified Code(s): J44.9 - Chronic obstructive pulmonary disease, unspecified Status: Acute Subjective Date/time seen: 11/22/24 09:16 Interval history: Patient has no new respiratory complaints. Had an uneventful night although he was using relatively high FiO2 at 70%. Less chest congestion, no fever or chills. Negative fluid balance following 20 mg of Lasix IV yesterday. Review of Systems Review of Systems: All systems reviewed & are unremarkable except as noted in HPI and below Exam Narrative: GENERAL APPEARANCE: Well developed, well nourished, alert and cooperative, appears to be mild respiratory distress while high-flow nasal cannula SKIN: Inspection of the skin reveals no rashes, ulcerations or petechiae. HEENT: Sclerae anicteric and conjunctivae pink and moist. Extraocular movements were intact and pupils were equal, round. Moist oral mucosa. NECK: Supple. There was no thyroid enlargement, and no tenderness, or masses were felt. CHEST: Normal AP diameter and normal contour without any kyphoscoliosis. LUNGS: Crackles in right lung posteriorly, few crackles left lung base posteriorly CARDIAC: There was a regular rate and rhythm without any murmurs, gallops, rubs. ABDOMEN: Soft and nontender with normal bowel sounds. There was no organomegaly. LYMPH NODES: No lymphadenopathy was appreciated in the neck. EXTREMITIES: No cyanosis, clubbing or edema. NEUROLOGIC: Alert and oriented x 3. Normal affect. Objective Data Vital Signs Vital Signs: Vital Signs - 24 hr 11/21/24 11:24 11/21/24 11:33 11/21/24 11:59 Temperature 36.8 C Pulse Rate 82 71 81 Respiratory Rate 20 20 18 Blood Pressure 136/80 Pulse Oximetry 98 Oxygen Delivery Oxygen Flow Rate Fraction of Inspired Oxygen 11/21/24 12:00 11/21/24 12:00 11/21/24 13:55 Temperature Pulse Rate 88 84 Respiratory Rate 22 H Blood Pressure Pulse Oximetry 95 96 Oxygen Delivery High Flow Therapy with Na High Flow Therapy with Na Oxygen Flow Rate 45 45 Fraction of Inspired Oxygen 100 100 11/21/24 13:55 11/21/24 14:00 11/21/24 14:09 Temperature Pulse Rate 94 80 77 Respiratory Rate 20 22 H Blood Pressure Pulse Oximetry Oxygen Delivery Oxygen Flow Rate Fraction of Inspired Oxygen 11/21/24 15:18 11/21/24 16:00 11/21/24 16:00 Temperature 36.9 C Pulse Rate 88 90 88 Respiratory Rate 22 H 22 H Blood Pressure 94/67 L Pulse Oximetry 95 95 Oxygen Delivery High Flow Therapy with Na Oxygen Flow Rate 45 Fraction of Inspired Oxygen 80 11/21/24 18:00 11/21/24 19:40 11/21/24 19:40 Temperature Pulse Rate 90 84 Respiratory Rate 20 Blood Pressure Pulse Oximetry 92 Oxygen Delivery High Flow Therapy with Na Oxygen Flow Rate 45 Fraction of Inspired Oxygen 80 11/21/24 20:00 11/21/24 20:00 11/21/24 20:00 Temperature 36.9 C Pulse Rate 82 81 Respiratory Rate 24 H Blood Pressure 113/70 Pulse Oximetry 98 99 Oxygen Delivery High Flow Therapy with Na Oxygen Flow Rate 45 Fraction of Inspired Oxygen 80 11/21/24 20:05 11/21/24 22:00 11/21/24 23:17 Temperature Pulse Rate 85 83 86 Respiratory Rate 20 20 Blood Pressure Pulse Oximetry Oxygen Delivery Oxygen Flow Rate Fraction of Inspired Oxygen 11/21/24 23:38 11/21/24 23:49 11/22/24 00:00 Temperature 36.9 C Pulse Rate 84 77 Respiratory Rate 20 24 H Blood Pressure 110/68 Pulse Oximetry 99 99 Oxygen Delivery High Flow Therapy with Na Oxygen Flow Rate 45 Fraction of Inspired Oxygen 80 11/22/24 00:00 11/22/24 02:00 11/22/24 04:00 Temperature Pulse Rate 78 79 Respiratory Rate Blood Pressure Pulse Oximetry 96 Oxygen Delivery High Flow Therapy with Na Oxygen Flow Rate 45 Fraction of Inspired Oxygen 80 11/22/24 04:00 11/22/24 04:28 11/22/24 04:30 Temperature 36.9 C Pulse Rate 79 80 79 Respiratory Rate 24 H 18 Blood Pressure 119/68 Pulse Oximetry 96 Oxygen Delivery Oxygen Flow Rate Fraction of Inspired Oxygen 11/22/24 04:41 11/22/24 06:00 11/22/24 06:41 Temperature Pulse Rate 82 89 Respiratory Rate 18 Blood Pressure Pulse Oximetry 93 Oxygen Delivery High Flow Therapy with Na Oxygen Flow Rate 45 Fraction of Inspired Oxygen 90 11/22/24 07:36 11/22/24 07:36 11/22/24 07:49 Temperature Pulse Rate 77 79 Respiratory Rate 18 18 Blood Pressure Pulse Oximetry 98 Oxygen Delivery High Flow Therapy with Na Oxygen Flow Rate 45 Fraction of Inspired Oxygen 90 11/22/24 07:58 11/22/24 08:10 11/22/24 09:05 Temperature 36.6 C Pulse Rate 78 Respiratory Rate 18 Blood Pressure 122/72 Pulse Oximetry 99 98 95 Oxygen Delivery High Flow Therapy with Na High Flow Therapy with Na Oxygen Flow Rate 45 45 Fraction of Inspired Oxygen 80 70 Intake/Output Intake/Output: Intake & Output 11/19/24 11/20/24 11/21/24 11/22/24 23:59 23:59 23:59 23:59 Intake Total 1750 1760 1080 500 Output Total 1200 1875 2450 600 Balance 550 -115 -1370 -100 Meds/Results Medications: Active Medications Generic Name Dose Route Start Last Admin Trade Name Freq PRN Reason Stop Dose Admin Acetaminophen 650 mg 11/13/24 21:48 11/17/24 16:41 Acetaminophen 325 Mg Tablet PO 650 mg Q4H PRN Administration Mild Pain (1-3) or Fever Acetylcysteine 200 mg 11/21/24 21:00 11/22/24 07:35 Acetylcysteine 20% Inhal Soln 800 Mg/4 Ml Vial INHALATION 200 mg Q12HR DANE Administration Albuterol/Ipratropium 3 ml 11/17/24 08:00 11/22/24 07:35 Ipratropium 0.5 Mg/Albuterol Sulfate 2.5 Mg Ampul.Neb 3 Ml INHALATION 3 ml Q4HRT DANE Administration Bupropion HCl 300 mg 11/14/24 09:00 11/22/24 08:58 Bupropion Hcl Xl (24 Hr) 150 Mg Tabcr BY MOUTH 300 mg DAILY DANE Administration Enoxaparin Sodium 40 mg 11/21/24 09:00 11/22/24 08:57 Enoxaparin 40 Mg/0.4 Ml Syringe SUB-Q 40 mg DAILY DANE Administration Ferrous Sulfate 325 mg 11/14/24 09:00 11/22/24 08:58 Ferrous Sulfate [address] BY MOUTH 325 mg DAILY DANE Administration Guaifenesin 1,200 mg 11/14/24 10:35 11/22/24 08:57 Guaifenesin 12 Hr 600 Mg Tabcr PO 1,200 mg Q12HR DANE Administration Cefepime HCl 2 gm in 50 mls @ 100 mls/hr 11/17/24 06:00 11/22/24 05:45 Maxipime 2 Gm/Ns 50 Ml IVPB Infused Q8HR DANE Infusion Levofloxacin/Dextrose 750 mg in 150 mls @ 100 mls/hr 11/17/24 12:00 11/22/24 08:56 Levaquin 750 Mg/D5w 150 Ml IVPB 100 mls/hr DAILY DANE Administration Levetiracetam 500 mg 11/14/24 13:35 11/22/24 08:58 Levetiracetam 500 Mg Tablet PO 500 mg Q12HR DANE Administration Lidocaine 1 patch 11/14/24 09:00 11/22/24 08:57 Lidocaine 5% Patch TOPICAL 1 patch DAILY DANE Administration Lorazepam 0.5 mg 11/13/24 21:34 Lorazepam (*Crx) 0.5 Mg Tablet PO ONCE PRN Agitation Lorazepam 0.5 mg 11/14/24 02:03 Lorazepam (*Crx) 0.5 Mg Tablet PO BID PRN anxiety Midodrine 2.5 mg 11/14/24 09:00 11/22/24 08:58 Midodrine Hcl 2.5 Mg Tablet PO 2.5 mg BID DANE Administration Oseltamivir Phosphate 75 mg 11/18/24 10:50 11/22/24 08:58 Oseltamivir Phosphate 75 Mg Capsule PO 11/23/24 09:01 75 mg Q12HR DANE Administration Oxycodone HCl 10 mg 11/22/24 01:00 Oxycodone Hcl (*Crx) 5 Mg Tab Ir PO BID@0100,0500 PRN Breakthrough Pain Oxycodone HCl 10 mg 11/21/24 15:43 11/22/24 08:57 Oxycodone Hcl (*Crx) 5 Mg Tab Ir PO 10 mg Q4HR PRN Administration Pain Rated 4-6 Pantoprazole Sodium 40 mg 11/14/24 09:00 11/22/24 08:58 Pantoprazole 40 Mg Tablet PO 40 mg Q12HR DANE Administration Paroxetine HCl 40 mg 11/14/24 09:00 11/22/24 08:58 Paroxetine 20 Mg Tablet BY MOUTH 40 mg QAM DANE Administration Perflutren Lipid Microsphere 0 ml 11/20/24 15:58 Perflutren Lipid Microspheres 1.5 Ml Vial Diluted To 10 Ml Total Volume IV PUSH 11/23/24 15:58 ONCE PRN adequate visualization Protocol Pregabalin 150 mg 11/14/24 09:00 11/22/24 08:57 Pregabalin (*Crx) 75 Mg Capsule PO 150 mg BID DANE Administration Sodium Chloride 1 spray 11/19/24 22:13 11/20/24 00:02 Saline 0.65% Meir Soln 44 Ml Btl NASAL 1 spray Q6HR PRN Administration Congestion Tizanidine HCl 4 mg 11/14/24 02:03 11/17/24 16:41 Tizanidine Hcl 4 Mg Tablet PO 4 mg TID PRN Administration muscle spasticity Trazodone HCl 100 mg 11/14/24 21:00 11/21/24 20:31 Trazodone Hcl 50 Mg Tablet PO 100 mg QHS DANE Administration Radiology Results: ITS Impressions Chest CTA 11/13/24 21:03 IMPRESSION: No pulmonary embolus. No thoracic aortic dissection. Obstruction of the left lower lobe bronchus with postobstructive consolidation for which direct visualization is recommended. Additional findings within the remainder of the left as well as the remaining right lung for which infectious etiology is favored. Chest CT 11/20/24 14:52 IMPRESSION: 1. Diffuse lung disease with worsening on the right and improvement on the left, consistent with pneumonia. 2. Mild emphysema. Venous Doppler Study 11/20/24 19:54 IMPRESSION: Patent bilateral lower extremity veins. No evidence of deep venous thrombosis. Chest X-Ray 11/22/24 05:50 Impression: Extensive bibasilar/perihilar space disease. Correlate for pulmonary edema versus pneumonia. Minimal pleural effusions. Labs Labs: Laboratory Results - last 24 hr 11/21/24 11/21/24 11/22/24 12:42 22:03 05:06 WBC 10.9 H RBC 4.82 Hgb 12.5 L Hct 40.4 L MCV 83.8 MCH 25.9 L MCHC 30.9 L RDW 15.9 H Plt Count 276 MPV 10.6 H Immature Gran % (Auto) 1.5 H Neut % (Auto) 78.0 H Lymph % (Auto) 7.3 L [place] % (Auto) 8.0 Eos % (Auto) 4.7 H Baso % (Auto) 0.5 Lymph # (Auto) 0.80 L [place] # (Auto) 0.9 H Eos # (Auto) 0.5 H Baso # (Auto) 0.1 Abs Immat Gran (auto) 0.16 H Absolute Neuts (auto) 8.6 H Absolute Nucleated RBC 0.000 Band Neutrophils % 0 Nucleated RBC % 0.0 Platelet Estimate Adequate % Immature Plt Fraction 4.6 Ovalocytes 1+ Schistocytes None seen Puncture Site Left brachial ABG pH 7.450 ABG pCO2 44.3 ABG pO2 56.6 L ABG PO2/FiO2 Ratio 0.57 ABG HCO3 30.1 H ABG O2 Saturation 90.6 L ABG O2 Content 15.9 L ABG Base Excess 5.4 A-a Gradient 612.1 Oxyhemoglobin 89.1 L Total Hemoglobin 12.7 O2 Delivery Device High flow therapy O2 Liters/Min 45.0 FiO2 100 Sodium 138 Potassium 4.7 Chloride 98 Carbon Dioxide 38 H Anion Gap 2 L BUN 18 Creatinine 0.89 Estim Creat Clear Calc 70 Estimated GFR > 60 Glucose 92 Calcium 8.9 Magnesium 2.0 Total Bilirubin 0.8 AST 31 ALT 9 Alkaline Phosphatase 52 Troponin I < 0.012 C-Reactive Protein 6.3 H Total Protein 7.0 Albumin 3.0 L
--- NOTE | 2024-11-22 11:01 | P.PNIM_ITS ---
Progress Note: A&P Assessment and Plan (1) Influenza A: Code(s): J10.1 - Influenza due to other identified influenza virus with other respiratory manifestations Status: Acute Assessment and Plan: * Influenza A positive. * Negative for COVID, RSV and Influenza B. * Tamiflu 75 mg PO q 12. * High-flow nasal cannula * Afebrile. (2) Pulmonary edema: Code(s): J81.1 - Chronic pulmonary edema Status: Acute Assessment and Plan: IV Lasix x1 Repeat chest x-ray in the morning (3) Postobstructive pneumonia: Code(s): J18.9 - Pneumonia, unspecified organism Status: Acute Assessment and Plan: * CTA chest without PE. * Patchy bibasilar ground opacity suspicious for infection as well as left descending bronchus being largely obstructive with postobstructive consolidation noted as well. * Continue Cefepime and Levofloxacin. Flagyl discontinued. * Duoneb q 4. * Guaifenesin 1,200 mg PO q 12. * Cornet flutter valve to aid in sputum expectoration. * CPT * Dr. Mosley and Dr. Wilkins Pulmonologists following, appreciate recommendations. * Repeat CT scan in 3-6 weeks. * His urine streptococcal antigen from 11/14/2024 returned positive today. * Add PT/OT * Human Metapneumovirus from 11/17/24 is positive. * Echocardiogram EF 55-60%, grade 1 diastolic dysfunction * Chest CT 11/20/24: 1. Diffuse lung disease with worsening on the right and improvement on the left, consistent with pneumonia. 2. Mild emphysema. * LE dopplers negative. * Sa02 96% high flow nasal cannula 45 liters with F102 100%. * Patient given Lasix 20 mg ivp x1. * Blood cultures negative. (4) COPD (chronic obstructive pulmonary disease): Qualifiers: COPD type: unspecified COPD Qualified Code(s): J44.9 - Chronic obstructive pulmonary disease, unspecified Code(s): J44.9 - Chronic obstructive pulmonary disease, unspecified Status: Acute Assessment and Plan: * Duoneb q4 * Continue Cefepime and Levofloxacin. Flagyl discontinued. * Guaifenesin 1,200 mg PO q 12. * Pulmonology following, appreciate recommendations. * Repeat Chest X-ray today showed: Impression: Extensive right basilar and right perihilar pneumonia. Minimal right pleural effusion. Minimal left basilar atelectasis. (5) Hypokalemia: Code(s): E87.6 - Hypokalemia Status: Acute Assessment and Plan: * Improved * Monitor labs. (6) Back pain: Qualifiers: Back pain laterality: unspecified Back pain location: thoracic back pain Chronicity: unspecified Qualified Code(s): M54.6 - Pain in thoracic spine Code(s): M54.9 - Dorsalgia, unspecified Status: Acute Assessment and Plan: * Oxycodone for pain. Plan Patient wishes to be full code Time Spent With Patient Time with patient: Greater than 35 minutes Subjective Date/time seen: 11/22/24 11:01 Interval history: 64-year-old male with a past medical history to tobacco abuse, COPD, lung cancer status post right middle lobe lobectomy in 2019, vitamin B12 deficiency, iron deficiency anemia, chronic pain and chronic opioid use, GERD, hypotension who presents with shortness of breath for about a week. Lung sounds coarse, started Lasix ordered. Review of Systems Review of Systems: All systems reviewed & are unremarkable except as noted in HPI and below Exam Narrative: General: Ill-appearing HEENT: normocephalic, atraumatic. Mucous membranes moist. EOMI, PERRLA, bilateral sclera anicteric, no conjunctival injection. Neck supple without JVD, lymphadenopathy, or bruit. Respiratory: Course to ascultation bilaterally. No rales/rhonic/wheezes. Cardiovascular: Regular rate and rhythm, normal S1-S2 upon ascultation. No murmurs, rubs, or clicks. PMI is nondisplaced, capillary refill less than 3 second. Abdomen: Soft, round, no pulsatile masses, nondistended and nontender. No rebound, no guarding. No CVA tenderness, no hepatosplenomegaly. Bowel sounds present to all four quadrants. No high pitch or tinkling sounds, resonant to percussion. Extremities: No cyanosis, clubbing, or edema present. Pulses are palpable 2/2. Active ROM to all four extremities. Neuro: Alert and orientated x 4. PERRLA. Cranial nerves 2-12 intact without focal deficit. Skin: Warm, dry, and intact, without rash, erythema, or lesion. Psych: pleasant, cooperative, normal speech, normal affect, no hallucinations, no dysarthia Objective Data Vital Signs Vital Signs: Vital Signs - 24 hr 11/21/24 11:24 11/21/24 11:33 11/21/24 11:59 Temperature 98.2 F Pulse Rate 82 71 81 Respiratory Rate 20 20 18 Blood Pressure 136/80 Pulse Oximetry 98 Oxygen Delivery Oxygen Flow Rate Fraction of Inspired Oxygen 11/21/24 12:00 11/21/24 12:00 11/21/24 13:55 Temperature Pulse Rate 88 84 Respiratory Rate 22 H Blood Pressure Pulse Oximetry 95 96 Oxygen Delivery High Flow Therapy with Na High Flow Therapy with Na Oxygen Flow Rate 45 45 Fraction of Inspired Oxygen 100 100 11/21/24 13:55 11/21/24 14:00 11/21/24 14:09 Temperature Pulse Rate 94 80 77 Respiratory Rate 20 22 H Blood Pressure Pulse Oximetry Oxygen Delivery Oxygen Flow Rate Fraction of Inspired Oxygen 11/21/24 15:18 11/21/24 16:00 11/21/24 16:00 Temperature 98.4 F Pulse Rate 88 90 88 Respiratory Rate 22 H 22 H Blood Pressure 94/67 L Pulse Oximetry 95 95 Oxygen Delivery High Flow Therapy with Na Oxygen Flow Rate 45 Fraction of Inspired Oxygen 80 11/21/24 18:00 11/21/24 19:40 11/21/24 19:40 Temperature Pulse Rate 90 84 Respiratory Rate 20 Blood Pressure Pulse Oximetry 92 Oxygen Delivery High Flow Therapy with Na Oxygen Flow Rate 45 Fraction of Inspired Oxygen 80 11/21/24 20:00 11/21/24 20:00 11/21/24 20:00 Temperature 98.5 F Pulse Rate 82 81 Respiratory Rate 24 H Blood Pressure 113/70 Pulse Oximetry 98 99 Oxygen Delivery High Flow Therapy with Na Oxygen Flow Rate 45 Fraction of Inspired Oxygen 80 11/21/24 20:05 11/21/24 22:00 11/21/24 23:17 Temperature Pulse Rate 85 83 86 Respiratory Rate 20 20 Blood Pressure Pulse Oximetry Oxygen Delivery Oxygen Flow Rate Fraction of Inspired Oxygen 11/21/24 23:38 11/21/24 23:49 11/22/24 00:00 Temperature 98.4 F Pulse Rate 84 77 Respiratory Rate 20 24 H Blood Pressure 110/68 Pulse Oximetry 99 99 Oxygen Delivery High Flow Therapy with Na Oxygen Flow Rate 45 Fraction of Inspired Oxygen 80 11/22/24 00:00 11/22/24 02:00 11/22/24 04:00 Temperature Pulse Rate 78 79 Respiratory Rate Blood Pressure Pulse Oximetry 96 Oxygen Delivery High Flow Therapy with Na Oxygen Flow Rate 45 Fraction of Inspired Oxygen 80 11/22/24 04:00 11/22/24 04:28 11/22/24 04:30 Temperature 98.5 F Pulse Rate 79 80 79 Respiratory Rate 24 H 18 Blood Pressure 119/68 Pulse Oximetry 96 Oxygen Delivery Oxygen Flow Rate Fraction of Inspired Oxygen 11/22/24 04:41 11/22/24 06:00 11/22/24 06:41 Temperature Pulse Rate 82 89 Respiratory Rate 18 Blood Pressure Pulse Oximetry 93 Oxygen Delivery High Flow Therapy with Na Oxygen Flow Rate 45 Fraction of Inspired Oxygen 90 11/22/24 07:36 11/22/24 07:36 11/22/24 07:49 Temperature Pulse Rate 77 79 Respiratory Rate 18 18 Blood Pressure Pulse Oximetry 98 Oxygen Delivery High Flow Therapy with Na Oxygen Flow Rate 45 Fraction of Inspired Oxygen 90 11/22/24 07:58 11/22/24 08:10 11/22/24 09:05 Temperature 97.8 F Pulse Rate 78 Respiratory Rate 18 Blood Pressure 122/72 Pulse Oximetry 99 98 95 Oxygen Delivery High Flow Therapy with Na High Flow Therapy with Na Oxygen Flow Rate 45 45 Fraction of Inspired Oxygen 80 70 Intake/Output Intake/Output: Intake & Output 11/19/24 11/20/24 11/21/24 11/22/24 23:59 23:59 23:59 23:59 Intake Total 1750 1760 1080 500 Output Total 1200 1875 2450 600 Balance 550 -732 -5820 -100 Meds/Results Medications: Active Medications Generic Name Dose Route Start Last Admin Trade Name Freq PRN Reason Stop Dose Admin Acetaminophen 650 mg 11/13/24 21:48 11/17/24 16:41 Acetaminophen 325 Mg Tablet PO 650 mg Q4H PRN Administration Mild Pain (1-3) or Fever Acetylcysteine 200 mg 11/21/24 21:00 11/22/24 07:35 Acetylcysteine 20% Inhal Soln 800 Mg/4 Ml Vial INHALATION 200 mg Q12HR DANE Administration Albuterol/Ipratropium 3 ml 11/17/24 08:00 11/22/24 07:35 Ipratropium 0.5 Mg/Albuterol Sulfate 2.5 Mg Ampul.Neb 3 Ml INHALATION 3 ml Q4HRT DANE Administration Bupropion HCl 300 mg 11/14/24 09:00 11/22/24 08:58 Bupropion Hcl Xl (24 Hr) 150 Mg Tabcr BY MOUTH 300 mg DAILY DANE Administration Enoxaparin Sodium 40 mg 11/21/24 09:00 11/22/24 08:57 Enoxaparin 40 Mg/0.4 Ml Syringe SUB-Q 40 mg DAILY DANE Administration Ferrous Sulfate 325 mg 11/14/24 09:00 11/22/24 08:58 Ferrous Sulfate [address] BY MOUTH 325 mg DAILY DANE Administration Guaifenesin 1,200 mg 11/14/24 10:35 11/22/24 08:57 Guaifenesin 12 Hr 600 Mg Tabcr PO 1,200 mg Q12HR DANE Administration Cefepime HCl 2 gm in 50 mls @ 100 mls/hr 11/17/24 06:00 11/22/24 05:45 Maxipime 2 Gm/Ns 50 Ml IVPB Infused Q8HR DANE Infusion Levofloxacin/Dextrose 750 mg in 150 mls @ 100 mls/hr 11/17/24 12:00 11/22/24 08:56 Levaquin 750 Mg/D5w 150 Ml IVPB 100 mls/hr DAILY DANE Administration Levetiracetam 500 mg 11/14/24 13:35 11/22/24 08:58 Levetiracetam 500 Mg Tablet PO 500 mg Q12HR DANE Administration Lidocaine 1 patch 11/14/24 09:00 11/22/24 08:57 Lidocaine 5% Patch TOPICAL 1 patch DAILY DANE Administration Lorazepam 0.5 mg 11/13/24 21:34 Lorazepam (*Crx) 0.5 Mg Tablet PO ONCE PRN Agitation Lorazepam 0.5 mg 11/14/24 02:03 Lorazepam (*Crx) 0.5 Mg Tablet PO BID PRN anxiety Midodrine 2.5 mg 11/14/24 09:00 11/22/24 08:58 Midodrine Hcl 2.5 Mg Tablet PO 2.5 mg BID DANE Administration Oseltamivir Phosphate 75 mg 11/18/24 10:50 11/22/24 08:58 Oseltamivir Phosphate 75 Mg Capsule PO 11/23/24 09:01 75 mg Q12HR DANE Administration Oxycodone HCl 10 mg 11/22/24 01:00 Oxycodone Hcl (*Crx) 5 Mg Tab Ir PO BID@0100,0500 PRN Breakthrough Pain Oxycodone HCl 10 mg 11/21/24 15:43 11/22/24 08:57 Oxycodone Hcl (*Crx) 5 Mg Tab Ir PO 10 mg Q4HR PRN Administration Pain Rated 4-6 Pantoprazole Sodium 40 mg 11/14/24 09:00 11/22/24 08:58 Pantoprazole 40 Mg Tablet PO 40 mg Q12HR DANE Administration Paroxetine HCl 40 mg 11/14/24 09:00 11/22/24 08:58 Paroxetine 20 Mg Tablet BY MOUTH 40 mg QAM DANE Administration Perflutren Lipid Microsphere 0 ml 11/20/24 15:58 Perflutren Lipid Microspheres 1.5 Ml Vial Diluted To 10 Ml Total Volume IV PUSH 11/23/24 15:58 ONCE PRN adequate visualization Protocol Pregabalin 150 mg 11/14/24 09:00 11/22/24 08:57 Pregabalin (*Crx) 75 Mg Capsule PO 150 mg BID DANE Administration Sodium Chloride 1 spray 11/19/24 22:13 11/20/24 00:02 Saline 0.65% Meir Soln 44 Ml Btl NASAL 1 spray Q6HR PRN Administration Congestion Tizanidine HCl 4 mg 11/14/24 02:03 11/17/24 16:41 Tizanidine Hcl 4 Mg Tablet PO 4 mg TID PRN Administration muscle spasticity Trazodone HCl 100 mg 11/14/24 21:00 11/21/24 20:31 Trazodone Hcl 50 Mg Tablet PO 100 mg QHS DANE Administration Radiology Results: ITS Impressions Chest CTA 11/13/24 21:03 IMPRESSION: No pulmonary embolus. No thoracic aortic dissection. Obstruction of the left lower lobe bronchus with postobstructive consolidation for which direct visualization is recommended. Additional findings within the remainder of the left as well as the remaining right lung for which infectious etiology is favored. Chest CT 11/20/24 14:52 IMPRESSION: 1. Diffuse lung disease with worsening on the right and improvement on the left, consistent with pneumonia. 2. Mild emphysema. Venous Doppler Study 11/20/24 19:54 IMPRESSION: Patent bilateral lower extremity veins. No evidence of deep venous thrombosis. Chest X-Ray 11/22/24 05:50 Impression: Extensive bibasilar/perihilar space disease. Correlate for pulmonary edema versus pneumonia. Minimal pleural effusions. Labs Labs: Laboratory Results - last 24 hr 11/21/24 11/21/24 11/22/24 12:42 22:03 05:06 WBC 10.9 H RBC 4.82 Hgb 12.5 L Hct 40.4 L MCV 83.8 MCH 25.9 L MCHC 30.9 L RDW 15.9 H Plt Count 276 MPV 10.6 H Immature Gran % (Auto) 1.5 H Neut % (Auto) 78.0 H Lymph % (Auto) 7.3 L [place] % (Auto) 8.0 Eos % (Auto) 4.7 H Baso % (Auto) 0.5 Lymph # (Auto) 0.80 L [place] # (Auto) 0.9 H Eos # (Auto) 0.5 H Baso # (Auto) 0.1 Abs Immat Gran (auto) 0.16 H Absolute Neuts (auto) 8.6 H Absolute Nucleated RBC 0.000 Band Neutrophils % 0 Nucleated RBC % 0.0 Platelet Estimate Adequate % Immature Plt Fraction 4.6 Ovalocytes 1+ Schistocytes None seen Puncture Site Left brachial ABG pH 7.450 ABG pCO2 44.3 ABG pO2 56.6 L ABG PO2/FiO2 Ratio 0.57 ABG HCO3 30.1 H ABG O2 Saturation 90.6 L ABG O2 Content 15.9 L ABG Base Excess 5.4 A-a Gradient 612.1 Oxyhemoglobin 89.1 L Total Hemoglobin 12.7 O2 Delivery Device High flow therapy O2 Liters/Min 45.0 FiO2 100 Sodium 138 Potassium 4.7 Chloride 98 Carbon Dioxide 38 H Anion Gap 2 L BUN 18 Creatinine 0.89 Estim Creat Clear Calc 70 Estimated GFR > 60 Glucose 92 Calcium 8.9 Magnesium 2.0 Total Bilirubin 0.8 AST 31 ALT 9 Alkaline Phosphatase 52 Troponin I < 0.012 C-Reactive Protein 6.3 H Total Protein 7.0 Albumin 3.0 L Quality VTE Prophylaxis VTE prophylaxis: mechanical ordered and pharmacologic ordered
[2024-11-22] MEDS: FUROSEMIDE INJ 40 MG/4 ML VIAL IV PUSH (12:36)
--- NOTE | 2024-11-22 13:43 | PCPTNOTE ---
Attempted to see [facility] for PT, however patient declined. Patient reported he has been having a rough day and asked PT to come back later.
[2024-11-22] MEDS: traZODone HCL 50 MG TABLET 100 MG PO (20:55)
[2024-11-23] VITALS (22 sets, daily range): BP systolic 99–116; BP diastolic 65–80; PULSE 74–104; RESP 18–32; TEMP 36.1–36.8; O2SAT 91–99
[2024-11-23] MEDS: oxyCODONE HCL (*CRX) 5 MG TAB IR 10 MG PO ×5 (03:11→22:06)
[2024-11-23] MEDS: CEFEPIME 2 GM/NS 50 ML 2 GM/50 ML BAG IVPB ×3 (05:40→22:06)
[2024-11-23] MEDS: IPRATROPIUM 0.5 MG/ALBUTEROL SULFATE 2.5 MG AMPUL.NEB 3 ML INHALATION ×3 (07:55→20:31)
[2024-11-23] MEDS: ACETYLCYSTEINE 20% INHAL SOLN 800 MG/4 ML VIAL 200 MG INHALATION ×2 (07:55→20:30)
[2024-11-23] MEDS: levoFLOXacin 750 MG/D5W 150 ML 750 MG/150 ML BAG 100 MG IVPB (08:18)
[2024-11-23] MEDS: PANTOPRAZOLE 40 MG TABLET PO ×2 (08:18→20:52)
[2024-11-23] MEDS: guaiFENesin 12 HR 600 MG TABCR 1200 MG PO ×2 (08:18→20:51)
[2024-11-23] MEDS: PREGABALIN (*CRX) 75 MG CAPSULE 150 MG PO ×2 (08:18→18:02)
[2024-11-23] MEDS: ENOXAPARIN 40 MG/0.4 ML SYRINGE SUB-Q (08:18)
[2024-11-23] MEDS: levETIRAcetam 500 MG TABLET PO ×2 (08:19→20:52)
[2024-11-23] MEDS: MIDODRINE HCL 2.5 MG TABLET PO ×2 (08:19→18:02)
[2024-11-23] MEDS: PARoxetine 20 MG TABLET 40 MG BY MOUTH (08:19)
[2024-11-23] MEDS: LIDOCAINE 5% PATCH 1 PATCH TOPICAL (08:19)
[2024-11-23] MEDS: buPROPion HCL XL (24 HR) 150 MG TABCR 300 MG BY MOUTH (08:19)
[2024-11-23] MEDS: OSELTAMIVIR PHOSPHATE 75 MG CAPSULE PO (08:19)
[2024-11-23] MEDS: FERROUS SULFATE 325 MG TABLET DR BY MOUTH (08:19)
--- NOTE | 2024-11-23 09:32 | P.PNIM_ITS ---
Progress Note: A&P Assessment and Plan (1) Influenza A: Code(s): J10.1 - Influenza due to other identified influenza virus with other respiratory manifestations Status: Acute Assessment and Plan: * Influenza A positive. * Negative for COVID, RSV and Influenza B. * Tamiflu 75 mg PO q 12. Completed * High-flow nasal cannula, she had x-rays as able * Afebrile. (2) Pulmonary edema: Code(s): J81.1 - Chronic pulmonary edema Status: Acute Assessment and Plan: IV Lasix x1 Repeat chest x-ray in the morning slightly improved (3) Postobstructive pneumonia: Code(s): J18.9 - Pneumonia, unspecified organism Status: Acute Assessment and Plan: * CTA chest without PE. * Patchy bibasilar ground opacity suspicious for infection as well as left descending bronchus being largely obstructive with postobstructive consolidation noted as well. * Continue Cefepime and Levofloxacin. Flagyl discontinued. * Duoneb q 4. * Guaifenesin 1,200 mg PO q 12. * Cornet flutter valve to aid in sputum expectoration. * CPT * Dr. Mosley and Dr. Wilkins Pulmonologists following, appreciate recommendations. * Repeat CT scan in 3-6 weeks. * His urine streptococcal antigen from 11/14/2024 returned positive today. * Add PT/OT * Human Metapneumovirus from 11/17/24 is positive. * Echocardiogram EF 55-60%, grade 1 diastolic dysfunction * Chest CT 11/20/24: 1. Diffuse lung disease with worsening on the right and improvement on the left, consistent with pneumonia. 2. Mild emphysema. * LE dopplers negative. * Patient given Lasix 20 mg ivp x1. * Blood cultures negative. (4) COPD (chronic obstructive pulmonary disease): Qualifiers: COPD type: unspecified COPD Qualified Code(s): J44.9 - Chronic obstructive pulmonary disease, unspecified Code(s): J44.9 - Chronic obstructive pulmonary disease, unspecified Status: Acute Assessment and Plan: * Duoneb q4 * Continue Cefepime and Levofloxacin. Flagyl discontinued. * Guaifenesin 1,200 mg PO q 12. * Pulmonology following, appreciate recommendations. * Repeat Chest X-ray today showed: Impression: Extensive right basilar and right perihilar pneumonia. Minimal right pleural effusion. Minimal left basilar atelectasis. (5) Hypokalemia: Code(s): E87.6 - Hypokalemia Status: Acute Assessment and Plan: * Improved * Monitor labs. (6) Back pain: Qualifiers: Back pain laterality: unspecified Back pain location: thoracic back pain Chronicity: unspecified Qualified Code(s): M54.6 - Pain in thoracic spine Code(s): M54.9 - Dorsalgia, unspecified Status: Acute Assessment and Plan: * Oxycodone for pain. Plan Patient wishes to be full code Time Spent With Patient Time with patient: Greater than 35 minutes Subjective Date/time seen: 11/23/24 09:32 Interval history: 64-year-old male with a past medical history to tobacco abuse, COPD, lung cancer status post right middle lobe lobectomy in 2019, vitamin B12 deficiency, iron deficiency anemia, chronic pain and chronic opioid use, GERD, hypotension who presents with shortness of breath for about a week. IV antibiotics template finished today. Patient still requiring high levels oxygen, slightly improved chest x-ray, wean oxygen as able. Patient complaining of increased shortness of breath. Breathing treatments ordered a and D dimer. Review of Systems Review of Systems: All systems reviewed & are unremarkable except as noted in HPI and below Exam Narrative: General: Ill-appearing HEENT: normocephalic, atraumatic. Mucous membranes moist. EOMI, PERRLA, bilateral sclera anicteric, no conjunctival injection. Neck supple without JVD, lymphadenopathy, or bruit. Respiratory: Course to ascultation bilaterally. No rales/rhonic/wheezes. Cardiovascular: Regular rate and rhythm, normal S1-S2 upon ascultation. No murmurs, rubs, or clicks. PMI is nondisplaced, capillary refill less than 3 second. Abdomen: Soft, round, no pulsatile masses, nondistended and nontender. No rebound, no guarding. No CVA tenderness, no hepatosplenomegaly. Bowel sounds present to all four quadrants. No high pitch or tinkling sounds, resonant to percussion. Extremities: No cyanosis, clubbing, or edema present. Pulses are palpable 2/2. Active ROM to all four extremities. Neuro: Alert and orientated x 4. PERRLA. Cranial nerves 2-12 intact without focal deficit. Skin: Warm, dry, and intact, without rash, erythema, or lesion. Psych: pleasant, cooperative, normal speech, normal affect, no hallucinations, no dysarthia Objective Data Vital Signs Vital Signs: Vital Signs - 24 hr 11/22/24 10:00 11/22/24 10:50 11/22/24 11:25 Temperature Pulse Rate 77 77 Respiratory Rate 18 Blood Pressure Pulse Oximetry Oxygen Delivery High Flow Therapy with Na Oxygen Flow Rate 45 Fraction of Inspired Oxygen 11/22/24 11:37 11/22/24 12:00 11/22/24 12:00 Temperature 98.0 F Pulse Rate 76 79 Respiratory Rate 18 24 H Blood Pressure 110/65 Pulse Oximetry 95 97 Oxygen Delivery High Flow Therapy with Na Oxygen Flow Rate 45 Fraction of Inspired Oxygen 60 11/22/24 12:00 11/22/24 14:00 11/22/24 14:50 Temperature Pulse Rate 76 84 Respiratory Rate Blood Pressure Pulse Oximetry Oxygen Delivery High Flow Therapy with Na Oxygen Flow Rate 45 Fraction of Inspired Oxygen 11/22/24 15:03 11/22/24 15:26 11/22/24 15:35 Temperature Pulse Rate 78 77 Respiratory Rate 18 18 Blood Pressure Pulse Oximetry 91 Oxygen Delivery High Flow Therapy with Na Oxygen Flow Rate 45 Fraction of Inspired Oxygen 60 11/22/24 15:50 11/22/24 16:00 11/22/24 16:00 Temperature 98.0 F Pulse Rate 74 76 Respiratory Rate 18 Blood Pressure 118/78 Pulse Oximetry 96 95 Oxygen Delivery High Flow Therapy with Na Oxygen Flow Rate 45 Fraction of Inspired Oxygen 60 11/22/24 18:00 11/22/24 20:00 11/22/24 20:00 Temperature 97.9 F Pulse Rate 81 85 Respiratory Rate 18 Blood Pressure 103/66 Pulse Oximetry 97 94 Oxygen Delivery High Flow Therapy with Na Oxygen Flow Rate 45 Fraction of Inspired Oxygen 60 11/22/24 20:00 11/22/24 20:42 11/22/24 20:42 Temperature Pulse Rate 86 86 Respiratory Rate 20 Blood Pressure Pulse Oximetry 94 Oxygen Delivery High Flow Therapy with Na Oxygen Flow Rate 45 Fraction of Inspired Oxygen 60 11/22/24 22:00 11/22/24 22:53 11/22/24 23:43 Temperature 98.2 F Pulse Rate 91 82 80 Respiratory Rate 16 18 Blood Pressure 102/61 Pulse Oximetry 96 Oxygen Delivery Oxygen Flow Rate Fraction of Inspired Oxygen 11/23/24 00:00 11/23/24 00:00 11/23/24 02:00 Temperature Pulse Rate 81 75 Respiratory Rate Blood Pressure Pulse Oximetry 96 Oxygen Delivery High Flow Therapy with Na Oxygen Flow Rate 45 Fraction of Inspired Oxygen 60 11/23/24 04:00 11/23/24 04:00 11/23/24 04:00 Temperature 98.3 F Pulse Rate 85 77 Respiratory Rate 18 Blood Pressure 99/80 L Pulse Oximetry 99 99 Oxygen Delivery High Flow Therapy with Na Oxygen Flow Rate 45 Fraction of Inspired Oxygen 60 11/23/24 06:00 11/23/24 07:55 11/23/24 08:00 Temperature 96.9 F L Pulse Rate 87 84 95 Respiratory Rate 20 28 H Blood Pressure 105/65 Pulse Oximetry 96 Oxygen Delivery Oxygen Flow Rate Fraction of Inspired Oxygen 11/23/24 08:01 11/23/24 08:20 Temperature Pulse Rate 84 83 Respiratory Rate 18 20 Blood Pressure Pulse Oximetry 91 Oxygen Delivery High Flow Therapy with Na Oxygen Flow Rate 45 Fraction of Inspired Oxygen 60 Intake/Output Intake/Output: Intake & Output 11/20/24 11/21/24 11/22/24 11/23/24 23:59 23:59 23:59 23:59 Intake Total 1760 1080 987 220 Output Total 0499 2360 2650 300 Balance -115 -1370 -1663 -80 Meds/Results Medications: Active Medications Generic Name Dose Route Start Last Admin Trade Name Freq PRN Reason Stop Dose Admin Acetaminophen 650 mg 11/13/24 21:48 11/17/24 16:41 Acetaminophen 325 Mg Tablet PO 650 mg Q4H PRN Administration Mild Pain (1-3) or Fever Acetylcysteine 200 mg 11/21/24 21:00 11/23/24 07:55 Acetylcysteine 20% Inhal Soln 800 Mg/4 Ml Vial INHALATION 200 mg Q12HR DANE Administration Albuterol/Ipratropium 3 ml 11/17/24 08:00 11/23/24 07:55 Ipratropium 0.5 Mg/Albuterol Sulfate 2.5 Mg Ampul.Neb 3 Ml INHALATION 3 ml Q4HRT DANE Administration Bupropion HCl 300 mg 11/14/24 09:00 11/23/24 08:19 Bupropion Hcl Xl (24 Hr) 150 Mg Tabcr BY MOUTH 300 mg DAILY DANE Administration Enoxaparin Sodium 40 mg 11/21/24 09:00 11/23/24 08:18 Enoxaparin 40 Mg/0.4 Ml Syringe SUB-Q 40 mg DAILY DANE Administration Ferrous Sulfate 325 mg 11/14/24 09:00 11/23/24 08:19 Ferrous Sulfate [address] BY MOUTH 325 mg DAILY DANE Administration Guaifenesin 1,200 mg 11/14/24 10:35 11/23/24 08:18 Guaifenesin 12 Hr 600 Mg Tabcr PO 1,200 mg Q12HR DANE Administration Cefepime HCl 2 gm in 50 mls @ 100 mls/hr 11/17/24 06:00 11/23/24 05:40 Maxipime 2 Gm/Ns 50 Ml IVPB 11/23/24 23:59 100 mls/hr Q8HR DANE Administration Levofloxacin/Dextrose 750 mg in 150 mls @ 100 mls/hr 11/17/24 12:00 11/23/24 08:18 Levaquin 750 Mg/D5w 150 Ml IVPB 11/23/24 23:59 100 mls/hr DAILY DANE Administration Levetiracetam 500 mg 11/14/24 13:35 11/23/24 08:19 Levetiracetam 500 Mg Tablet PO 500 mg Q12HR DANE Administration Lidocaine 1 patch 11/14/24 09:00 11/23/24 08:19 Lidocaine 5% Patch TOPICAL 1 patch DAILY DANE Administration Lorazepam 0.5 mg 11/13/24 21:34 Lorazepam (*Crx) 0.5 Mg Tablet PO ONCE PRN Agitation Lorazepam 0.5 mg 11/14/24 02:03 Lorazepam (*Crx) 0.5 Mg Tablet PO BID PRN anxiety Midodrine 2.5 mg 11/14/24 09:00 11/23/24 08:19 Midodrine Hcl 2.5 Mg Tablet PO 2.5 mg BID DANE Administration Miscellaneous Information 0 each 11/23/24 00:01 Please Renew Pregabalin, 10 Day Autostop XX 12/23/24 00:00 CLARIFY DANE Oxycodone HCl 10 mg 11/22/24 01:00 Oxycodone Hcl (*Crx) 5 Mg Tab Ir PO BID@0100,0500 PRN Breakthrough Pain Oxycodone HCl 10 mg 11/21/24 15:43 11/23/24 08:19 Oxycodone Hcl (*Crx) 5 Mg Tab Ir PO 10 mg Q4HR PRN Administration Pain Rated 4-6 Pantoprazole Sodium 40 mg 11/14/24 09:00 11/23/24 08:18 Pantoprazole 40 Mg Tablet PO 40 mg Q12HR DANE Administration Paroxetine HCl 40 mg 11/14/24 09:00 11/23/24 08:19 Paroxetine 20 Mg Tablet BY MOUTH 40 mg QAM DANE Administration Perflutren Lipid Microsphere 0 ml 11/20/24 15:58 Perflutren Lipid Microspheres 1.5 Ml Vial Diluted To 10 Ml Total Volume IV PUSH 11/23/24 15:58 ONCE PRN adequate visualization Protocol Pregabalin 150 mg 11/14/24 09:00 11/23/24 08:18 Pregabalin (*Crx) 75 Mg Capsule PO 150 mg BID DANE Administration Sodium Chloride 1 spray 11/19/24 22:13 11/20/24 00:02 Saline 0.65% Meir Soln 44 Ml Btl NASAL 1 spray Q6HR PRN Administration Congestion Tizanidine HCl 4 mg 11/14/24 02:03 11/17/24 16:41 Tizanidine Hcl 4 Mg Tablet PO 4 mg TID PRN Administration muscle spasticity Trazodone HCl 100 mg 11/14/24 21:00 11/22/24 20:55 Trazodone Hcl 50 Mg Tablet PO 100 mg QHS DANE Administration Radiology Results: ITS Impressions Chest CTA 11/13/24 21:03 IMPRESSION: No pulmonary embolus. No thoracic aortic dissection. Obstruction of the left lower lobe bronchus with postobstructive consolidation f or which direct visualization is recommended. Additional findings within the remainder of the left as well as the remaining right lung for which infectious etiology is favored. Chest CT 11/20/24 14:52 IMPRESSION: 1. Diffuse lung disease with worsening on the right and improvement on the left, consistent with pneumonia. 2. Mild emphysema. Venous Doppler Study 11/20/24 19:54 IMPRESSION: Patent bilateral lower extremity veins. No evidence of deep venous thrombosis. Chest X-Ray 11/23/24 06:12 Impression: Hazy and interstitial pulmonary disease, right significantly worse than left, is unchanged from prior exam. Correlate for asymmetric pulmonary edema versus pneumonia. Quality VTE Prophylaxis VTE prophylaxis: mechanical ordered and pharmacologic ordered
--- NOTE | 2024-11-23 09:57 | P.PNPL_ITS ---
Progress Note: A&P Assessment and Plan (1) Respiratory failure with hypoxia and hypercapnia: Code(s): J96.91 - Respiratory failure, unspecified with hypoxia; J96.92 - Respiratory failure, unspecified with hypercapnia Status: Acute Assessment and Plan: This 64-year-old male patient, with a medical history of COPD and previous lung resection for lung cancer, presented with acute respiratory failure due to a l ower respiratory tract infection. Testing revealed positive results for influenza A and human metapneumovirus (hMPV), and a urine test was positive for pneumococcal antigen, indicating a pneumonia likely caused by multiple infectious agents. The patient has been treated for influenza A and is currently receiving three antibiotics to address potential bacterial coinfection. Although his gas exchange has improved in the past few days, he remains on high-flow oxygen via nasal cannula with high FiO2. He continues to experience shortness of breath but does not have a fever or signs of sepsis. He has a productive cough with dark yellow sputum. Given the positive respiratory panel for hMPV and the slow response to antibiotics, it is possible that hMPV is contributing significantly to his pneumonia. Typically, pneumococcal pneumonia responds to antibiotics within 48 hours. Severe pneumonia due to hMPV has been documented in patients with underlying conditions such as COPD or compromised immune systems. Severe pneumonia related to influenza A is is more likely in this setting. Chest CT done 2 days ago showed worsening right lung pneumonia compared to the 1st chest CT approximately a week ago. Left lung infiltrates have cleared. Clinically, the patient exhibits significant oxyhemoglobin desaturation with any movement in bed, which is associated with the near-whitening appearance of the right lung. He has experienced some chest congestion and difficulty clearing bronchial secretions due to overall weakness. He was started on nebulized Mucomyst treatment, and this morning he appears to have reduced chest congestion. Otherwise, the physical examination remains unchanged. Current testing shows that CRP levels are trending down, but the chest X-ray shows no significant clearing. Currently his FiO2 is down to 60% with O2 saturation in the mid 90% range. Overall his respiratory status has been more stable over the last 48 hours with no episodes of desaturation while in bed. Was able to get out of bed yesterday and will do the same thing today. Plan: Continue with the current management strategy, pulmonary toilet, nebulized short-acting bronchodilators and nebulized mucolytic agents, including DVT prophylaxis. Will will discontinue antibiotic regimen; repeat CRP in a.m. (2) History of lung cancer: Code(s): Z85.118 - Personal history of other malignant neoplasm of bronchus and lung Status: Acute (3) Chronic narcotic use: Code(s): F11.90 - Opioid use, unspecified, uncomplicated Status: Acute (4) Influenza A: Code(s): J10.1 - Influenza due to other identified influenza virus with other respiratory manifestations Status: Acute (5) COPD (chronic obstructive pulmonary disease): Qualifiers: COPD type: unspecified COPD Qualified Code(s): J44.9 - Chronic obstructive pulmonary disease, unspecified Code(s): J44.9 - Chronic obstructive pulmonary disease, unspecified Status: Acute Subjective Date/time seen: 11/23/24 09:57 Interval history: Patient has no new respiratory symptoms. He slept well last night, sounds less congested, still on high-flow nasal cannula but FiO2 now lower at 60%. He is doing well with the protein supplements. Review of Systems Review of Systems: All systems reviewed & are unremarkable except as noted in HPI and below (HPI and below) Exam Narrative: GENERAL APPEARANCE: Well developed, well nourished, alert and cooperative, appears to be mild respiratory distress while high-flow nasal cannula SKIN: Inspection of the skin reveals no rashes, ulcerations or petechiae. HEENT: Sclerae anicteric and conjunctivae pink and moist. Extraocular movements were intact and pupils were equal, round. Moist oral mucosa. NECK: Supple. There was no thyroid enlargement, and no tenderness, or masses were felt. CHEST: Normal AP diameter and normal contour without any kyphoscoliosis. LUNGS: Crackles in right lung posteriorly, few crackles left lung base posteriorly CARDIAC: There was a regular rate and rhythm without any murmurs, gallops, rubs. ABDOMEN: Soft and nontender with normal bowel sounds. There was no organomegaly. LYMPH NODES: No lymphadenopathy was appreciated in the neck. EXTREMITIES: No cyanosis, clubbing or edema. NEUROLOGIC: Alert and oriented x 3. Normal affect. Objective Data Vital Signs Vital Signs: Vital Signs - 24 hr 11/22/24 10:00 11/22/24 10:50 11/22/24 11:25 Temperature Pulse Rate 77 77 Respiratory Rate 18 Blood Pressure Pulse Oximetry Oxygen Delivery High Flow Therapy with Na Oxygen Flow Rate 45 Fraction of Inspired Oxygen 11/22/24 11:37 11/22/24 12:00 11/22/24 12:00 Temperature 36.7 C Pulse Rate 76 79 Respiratory Rate 18 24 H Blood Pressure 110/65 Pulse Oximetry 95 97 Oxygen Delivery High Flow Therapy with Na Oxygen Flow Rate 45 Fraction of Inspired Oxygen 60 11/22/24 12:00 11/22/24 14:00 11/22/24 14:50 Temperature Pulse Rate 76 84 Respiratory Rate Blood Pressure Pulse Oximetry Oxygen Delivery High Flow Therapy with Na Oxygen Flow Rate 45 Fraction of Inspired Oxygen 11/22/24 15:03 11/22/24 15:26 11/22/24 15:35 Temperature Pulse Rate 78 77 Respiratory Rate 18 18 Blood Pressure Pulse Oximetry 91 Oxygen Delivery High Flow Therapy with Na Oxygen Flow Rate 45 Fraction of Inspired Oxygen 60 11/22/24 15:50 11/22/24 16:00 11/22/24 16:00 Temperature 36.7 C Pulse Rate 74 76 Respiratory Rate 18 Blood Pressure 118/78 Pulse Oximetry 96 95 Oxygen Delivery High Flow Therapy with Na Oxygen Flow Rate 45 Fraction of Inspired Oxygen 60 11/22/24 18:00 11/22/24 20:00 11/22/24 20:00 Temperature 36.6 C Pulse Rate 81 85 Respiratory Rate 18 Blood Pressure 103/66 Pulse Oximetry 97 94 Oxygen Delivery High Flow Therapy with Na Oxygen Flow Rate 45 Fraction of Inspired Oxygen 60 11/22/24 20:00 11/22/24 20:42 11/22/24 20:42 Temperature Pulse Rate 86 86 Respiratory Rate 20 Blood Pressure Pulse Oximetry 94 Oxygen Delivery High Flow Therapy with Na Oxygen Flow Rate 45 Fraction of Inspired Oxygen 60 11/22/24 22:00 11/22/24 22:53 11/22/24 23:43 Temperature 36.8 C Pulse Rate 91 82 80 Respiratory Rate 16 18 Blood Pressure 102/61 Pulse Oximetry 96 Oxygen Delivery Oxygen Flow Rate Fraction of Inspired Oxygen 11/23/24 00:00 11/23/24 00:00 11/23/24 02:00 Temperature Pulse Rate 81 75 Respiratory Rate Blood Pressure Pulse Oximetry 96 Oxygen Delivery High Flow Therapy with Na Oxygen Flow Rate 45 Fraction of Inspired Oxygen 60 11/23/24 04:00 11/23/24 04:00 11/23/24 04:00 Temperature 36.8 C Pulse Rate 85 77 Respiratory Rate 18 Blood Pressure 99/80 L Pulse Oximetry 99 99 Oxygen Delivery High Flow Therapy with Na Oxygen Flow Rate 45 Fraction of Inspired Oxygen 60 11/23/24 06:00 11/23/24 07:55 11/23/24 08:00 Temperature 36.1 C L Pulse Rate 87 84 95 Respiratory Rate 20 28 H Blood Pressure 105/65 Pulse Oximetry 96 Oxygen Delivery Oxygen Flow Rate Fraction of Inspired Oxygen 11/23/24 08:01 11/23/24 08:20 Temperature Pulse Rate 84 83 Respiratory Rate 18 20 Blood Pressure Pulse Oximetry 91 Oxygen Delivery High Flow Therapy with Na Oxygen Flow Rate 45 Fraction of Inspired Oxygen 60 Intake/Output Intake/Output: Intake & Output 11/20/24 11/21/24 11/22/24 11/23/24 23:59 23:59 23:59 23:59 Intake Total 1760 1080 987 220 Output Total 1872 8780 2650 300 Balance -115 -1370 -1663 -80 Meds/Results Medications: Active Medications Generic Name Dose Route Start Last Admin Trade Name Freq PRN Reason Stop Dose Admin Acetaminophen 650 mg 11/13/24 21:48 11/17/24 16:41 Acetaminophen 325 Mg Tablet PO 650 mg Q4H PRN Administration Mild Pain (1-3) or Fever Acetylcysteine 200 mg 11/21/24 21:00 11/23/24 07:55 Acetylcysteine 20% Inhal Soln 800 Mg/4 Ml Vial INHALATION 200 mg Q12HR DANE Administration Albuterol/Ipratropium 3 ml 11/17/24 08:00 11/23/24 07:55 Ipratropium 0.5 Mg/Albuterol Sulfate 2.5 Mg Ampul.Neb 3 Ml INHALATION 3 ml Q4HRT DANE Administration Bupropion HCl 300 mg 11/14/24 09:00 11/23/24 08:19 Bupropion Hcl Xl (24 Hr) 150 Mg Tabcr BY MOUTH 300 mg DAILY DANE Administration Enoxaparin Sodium 40 mg 11/21/24 09:00 11/23/24 08:18 Enoxaparin 40 Mg/0.4 Ml Syringe SUB-Q 40 mg DAILY DANE Administration Ferrous Sulfate 325 mg 11/14/24 09:00 11/23/24 08:19 Ferrous Sulfate [address] BY MOUTH 325 mg DAILY DANE Administration Guaifenesin 1,200 mg 11/14/24 10:35 11/23/24 08:18 Guaifenesin 12 Hr 600 Mg Tabcr PO 1,200 mg Q12HR DANE Administration Cefepime HCl 2 gm in 50 mls @ 100 mls/hr 11/17/24 06:00 11/23/24 05:40 Maxipime 2 Gm/Ns 50 Ml IVPB 11/23/24 23:59 100 mls/hr Q8HR DANE Administration Levofloxacin/Dextrose 750 mg in 150 mls @ 100 mls/hr 11/17/24 12:00 11/23/24 08:18 Levaquin 750 Mg/D5w 150 Ml IVPB 11/23/24 23:59 100 mls/hr DAILY DANE Administration Levetiracetam 500 mg 11/14/24 13:35 11/23/24 08:19 Levetiracetam 500 Mg Tablet PO 500 mg Q12HR DANE Administration Lidocaine 1 patch 11/14/24 09:00 11/23/24 08:19 Lidocaine 5% Patch TOPICAL 1 patch DAILY DANE Administration Lorazepam 0.5 mg 11/13/24 21:34 Lorazepam (*Crx) 0.5 Mg Tablet PO ONCE PRN Agitation Lorazepam 0.5 mg 11/14/24 02:03 Lorazepam (*Crx) 0.5 Mg Tablet PO BID PRN anxiety Midodrine 2.5 mg 11/14/24 09:00 11/23/24 08:19 Midodrine Hcl 2.5 Mg Tablet PO 2.5 mg BID DANE Administration Miscellaneous Information 0 each 11/23/24 00:01 Please Renew Pregabalin, 10 Day Autostop XX 12/23/24 00:00 CLARIFY DANE Oxycodone HCl 10 mg 11/22/24 01:00 Oxycodone Hcl (*Crx) 5 Mg Tab Ir PO BID@0100,0500 PRN Breakthrough Pain Oxycodone HCl 10 mg 11/21/24 15:43 11/23/24 08:19 Oxycodone Hcl (*Crx) 5 Mg Tab Ir PO 10 mg Q4HR PRN Administration Pain Rated 4-6 Pantoprazole Sodium 40 mg 11/14/24 09:00 11/23/24 08:18 Pantoprazole 40 Mg Tablet PO 40 mg Q12HR DANE Administration Paroxetine HCl 40 mg 11/14/24 09:00 11/23/24 08:19 Paroxetine 20 Mg Tablet BY MOUTH 40 mg QAM DANE Administration Perflutren Lipid Microsphere 0 ml 11/20/24 15:58 Perflutren Lipid Microspheres 1.5 Ml Vial Diluted To 10 Ml Total Volume IV PUSH 11/23/24 15:58 ONCE PRN adequate visualization Protocol Pregabalin 150 mg 11/14/24 09:00 11/23/24 08:18 Pregabalin (*Crx) 75 Mg Capsule PO 150 mg BID DANE Administration Sodium Chloride 1 spray 11/19/24 22:13 11/20/24 00:02 Saline 0.65% Meir Soln 44 Ml Btl NASAL 1 spray Q6HR PRN Administration Congestion Tizanidine HCl 4 mg 11/14/24 02:03 11/17/24 16:41 Tizanidine Hcl 4 Mg Tablet PO 4 mg TID PRN Administration muscle spasticity Trazodone HCl 100 mg 11/14/24 21:00 11/22/24 20:55 Trazodone Hcl 50 Mg Tablet PO 100 mg QHS DANE Administration Radiology Results: ITS Impressions Chest CTA 11/13/24 21:03 IMPRESSION: No pulmonary embolus. No thoracic aortic dissection. Obstruction of the left lower lobe bronchus with postobstructive consolidation for which direct visualization is recommended. Additional findings within the remainder of the left as well as the remaining right lung for which infectious etiology is favored. Chest CT 11/20/24 14:52 IMPRESSION: 1. Diffuse lung disease with worsening on the right and improvement on the left, consistent with pneumonia. 2. Mild emphysema. Venous Doppler Study 11/20/24 19:54 IMPRESSION: Patent bilateral lower extremity veins. No evidence of deep venous thrombosis. Chest X-Ray 11/23/24 06:12 Impression: Hazy and interstitial pulmonary disease, right significantly worse than left, is unchanged from prior exam. Correlate for asymmetric pulmonary edema versus pneumonia.
--- NOTE | 2024-11-23 12:50 | PCPTNOTE ---
RN requested for patient not to be seen at this time. She stated that they just increased his oxygen around noon and he is getting a breathing treatment right now.
--- NOTE | 2024-11-23 14:13 | PCRCNOTE ---
Window of time for administration has passed. See next scheduled administration.
[2024-11-23 14:57] LABS: D Dimer 0.85 ug/mL (<0.48)
[2024-11-23] MEDS: ACETAMINOPHEN 325 MG TABLET 650 MG PO (19:35)
[2024-11-23 19:59] LABS: Mycoplasma IgM Antibody Titer 28 U/mL
[2024-11-23] MEDS: traZODone HCL 50 MG TABLET 100 MG PO (20:51)
[2024-11-24] VITALS (26 sets, daily range): BP systolic 93–121; BP diastolic 59–69; PULSE 68–99; RESP 16–20; TEMP 35.9–36.6; O2SAT 89–98
[2024-11-24] MEDS: IPRATROPIUM 0.5 MG/ALBUTEROL SULFATE 2.5 MG AMPUL.NEB 3 ML INHALATION ×7 (00:20→20:34)
[2024-11-24 06:04] LABS: CRP 2.5 mg/dL (<1.0)
[2024-11-24] MEDS: oxyCODONE HCL (*CRX) 5 MG TAB IR 10 MG PO ×4 (06:11→20:44)
[2024-11-24] MEDS: buPROPion HCL XL (24 HR) 150 MG TABCR 300 MG BY MOUTH (08:40)
[2024-11-24] MEDS: PARoxetine 20 MG TABLET 40 MG BY MOUTH (08:40)
[2024-11-24] MEDS: guaiFENesin 12 HR 600 MG TABCR 1200 MG PO ×2 (08:40→20:43)
[2024-11-24] MEDS: ENOXAPARIN 40 MG/0.4 ML SYRINGE SUB-Q (08:41)
[2024-11-24] MEDS: PANTOPRAZOLE 40 MG TABLET PO ×2 (08:41→20:43)
[2024-11-24] MEDS: levETIRAcetam 500 MG TABLET PO ×2 (08:41→20:43)
[2024-11-24] MEDS: FERROUS SULFATE 325 MG TABLET DR BY MOUTH (08:41)
[2024-11-24] MEDS: MIDODRINE HCL 2.5 MG TABLET PO (08:41)
[2024-11-24] MEDS: LIDOCAINE 5% PATCH 1 PATCH TOPICAL (08:42)
--- NOTE | 2024-11-24 10:01 | P.PNIM_ITS ---
Progress Note: A&P Assessment and Plan (1) Influenza A: Code(s): J10.1 - Influenza due to other identified influenza virus with other respiratory manifestations Status: Acute Assessment and Plan: * Influenza A positive. * Negative for COVID, RSV and Influenza B. * Tamiflu 75 mg PO q 12. Completed * High-flow nasal cannula, she had x-rays as able * Afebrile. (2) Pulmonary edema: Code(s): J81.1 - Chronic pulmonary edema Status: Acute Assessment and Plan: IV Lasix x1 Repeat chest x-ray in the morning slightly improved Echocardiogram 55-60% grade 1 diastolic dysfunction (3) Postobstructive pneumonia: Code(s): J18.9 - Pneumonia, unspecified organism Status: Acute Assessment and Plan: Slowly improving * CTA chest without PE. * Patchy bibasilar ground opacity suspicious for infection as well as left descending bronchus being largely obstructive with postobstructive consolidation noted as well. * Continue Cefepime and Levofloxacin. Flagyl discontinued. * Duoneb q 4. * Guaifenesin 1,200 mg PO q 12. * Cornet flutter valve to aid in sputum expectoration. * CPT * Dr. Mosley and Dr. Wilkins Pulmonologists following * Repeat CT scan in 3-6 weeks. * His urine streptococcal antigen from 11/14/2024 returned positive today. * Add PT/OT * Human Metapneumovirus from 11/17/24 is positive. * Echocardiogram EF 55-60%, grade 1 diastolic dysfunction * Chest CT 11/20/24: 1. Diffuse lung disease with worsening on the right and improvement on the left, consistent with pneumonia. 2. Mild emphysema. * LE dopplers negative. * Patient given Lasix 20 mg ivp x1. * Blood cultures negative. (4) COPD (chronic obstructive pulmonary disease): Qualifiers: COPD type: unspecified COPD Qualified Code(s): J44.9 - Chronic obstructive pulmonary disease, unspecified Code(s): J44.9 - Chronic obstructive pulmonary disease, unspecified Status: Acute Assessment and Plan: * Duoneb q4 * Continue Cefepime and Levofloxacin. Flagyl discontinued. * Guaifenesin 1,200 mg PO q 12. * Pulmonology following, appreciate recommendations. * Repeat Chest X-ray today showed: Impression: Extensive right basilar and right perihilar pneumonia. Minimal right pleural effusion. Minimal left basilar atelectasis. (5) Hypokalemia: Code(s): E87.6 - Hypokalemia Status: Acute Assessment and Plan: * Improved * Monitor labs. (6) Back pain: Qualifiers: Back pain laterality: unspecified Back pain location: thoracic back pain Chronicity: unspecified Qualified Code(s): M54.6 - Pain in thoracic spine Code(s): M54.9 - Dorsalgia, unspecified Status: Acute Assessment and Plan: * Oxycodone for pain. * And muscle relaxer Plan Patient wishes to be full code Time Spent With Patient Time with patient: Greater than 35 minutes Subjective Date/time seen: 11/24/24 10:01 Interval history: 64-year-old male with a past medical history to tobacco abuse, COPD, lung cancer status post right middle lobe lobectomy in 2019, vitamin B12 deficiency, iron deficiency anemia, chronic pain and chronic opioid use, GERD, hypotension who presents with shortness of breath for about a week. CTA ordered for possible PE due to patient becoming tachycardic acutely hypoxic. Negative for PE shows improvement in pneumonia. Review of Systems Review of Systems: All systems reviewed & are unremarkable except as noted in HPI and below Exam Narrative: General: Ill-appearing HEENT: normocephalic, atraumatic. Mucous membranes moist. EOMI, PERRLA, bilateral sclera anicteric, no conjunctival injection. Neck supple without JVD, lymphadenopathy, or bruit. Respiratory: Course to ascultation bilaterally. Cardiovascular: Regular rate and rhythm, normal S1-S2 upon ascultation. No murmurs, rubs, or clicks. PMI is nondisplaced, capillary refill less than 3 second. Abdomen: Soft, round, no pulsatile masses, nondistended and nontender. No rebound, no guarding. No CVA tenderness, no hepatosplenomegaly. Bowel sounds present to all four quadrants. No high pitch or tinkling sounds, resonant to percussion. Extremities: No cyanosis, clubbing, or edema present. Pulses are palpable 2/2. Active ROM to all four extremities. Neuro: Alert and orientated x 4. PERRLA. Cranial nerves 2-12 intact without focal deficit. Skin: Warm, dry, and intact, without rash, erythema, or lesion. Psych: pleasant, cooperative, normal speech, normal affect, no hallucinations, no dysarthia Objective Data Vital Signs Vital Signs: Vital Signs - 24 hr 11/23/24 12:00 11/23/24 12:00 11/23/24 12:00 Temperature 98.2 F Pulse Rate 103 H 102 H Respiratory Rate 32 H Blood Pressure 110/79 Pulse Oximetry 95 99 Oxygen Delivery High Flow Therapy with Na Oxygen Flow Rate 45 Fraction of Inspired Oxygen 75 11/23/24 14:00 11/23/24 15:01 11/23/24 16:00 Temperature Pulse Rate 91 85 88 Respiratory Rate 20 Blood Pressure Pulse Oximetry Oxygen Delivery Oxygen Flow Rate Fraction of Inspired Oxygen 11/23/24 16:00 11/23/24 16:00 11/23/24 18:00 Temperature 97.8 F Pulse Rate 86 86 Respiratory Rate 22 H Blood Pressure 107/66 Pulse Oximetry 96 98 Oxygen Delivery High Flow Therapy with Na Oxygen Flow Rate 45 Fraction of Inspired Oxygen 70 11/23/24 19:33 11/23/24 20:00 11/23/24 20:00 Temperature 98.3 F Pulse Rate 86 89 89 Respiratory Rate 18 20 Blood Pressure 113/68 Pulse Oximetry 94 94 Oxygen Delivery High Flow Therapy with Na Oxygen Flow Rate 45 Fraction of Inspired Oxygen 70 11/23/24 20:31 11/23/24 20:32 11/23/24 20:39 Temperature Pulse Rate 83 89 Respiratory Rate 20 20 Blood Pressure Pulse Oximetry 94 Oxygen Delivery High Flow Therapy with Na Oxygen Flow Rate 45 Fraction of Inspired Oxygen 60 11/23/24 22:00 11/23/24 23:23 11/23/24 23:23 Temperature Pulse Rate 78 78 78 Respiratory Rate 20 Blood Pressure Pulse Oximetry 94 Oxygen Delivery High Flow Therapy with Na Oxygen Flow Rate 45 Fraction of Inspired Oxygen 70 11/23/24 23:25 11/24/24 00:21 11/24/24 02:00 Temperature 97.6 F Pulse Rate 74 85 68 Respiratory Rate 18 20 Blood Pressure 116/65 Pulse Oximetry 98 Oxygen Delivery Oxygen Flow Rate Fraction of Inspired Oxygen 11/24/24 04:00 11/24/24 04:00 11/24/24 04:00 Temperature 97.7 F Pulse Rate 77 77 77 Respiratory Rate 20 18 Blood Pressure 121/69 Pulse Oximetry 98 96 Oxygen Delivery High Flow Therapy with Na Oxygen Flow Rate 45 Fraction of Inspired Oxygen 60 11/24/24 04:22 11/24/24 04:29 11/24/24 05:15 Temperature Pulse Rate 88 91 82 Respiratory Rate 20 Blood Pressure Pulse Oximetry Oxygen Delivery Oxygen Flow Rate Fraction of Inspired Oxygen 11/24/24 07:24 11/24/24 08:56 11/24/24 08:56 Temperature 96.7 F L Pulse Rate 77 86 Respiratory Rate 16 20 Blood Pressure 110/63 Pulse Oximetry 95 91 Oxygen Delivery High Flow Therapy with Na Oxygen Flow Rate 45 Fraction of Inspired Oxygen 60 Intake/Output Intake/Output: Intake & Output 11/21/24 11/22/24 11/23/24 11/24/24 23:59 23:59 23:59 23:59 Intake Total 0807 234 3536 Output Total 2450 6760 978 600 Balance -4895 -3425 260 -600 Meds/Results Medications: Active Medications Generic Name Dose Route Start Last Admin Trade Name Freq PRN Reason Stop Dose Admin Acetaminophen 650 mg 11/13/24 21:48 11/23/24 19:35 Acetaminophen 325 Mg Tablet PO 650 mg Q4H PRN Administration Mild Pain (1-3) or Fever Acetylcysteine 200 mg 11/21/24 21:00 11/23/24 20:30 Acetylcysteine 20% Inhal Soln 800 Mg/4 Ml Vial INHALATION 200 mg Q12HR DANE Administration Albuterol/Ipratropium 3 ml 11/17/24 08:00 11/24/24 08:54 Ipratropium 0.5 Mg/Albuterol Sulfate 2.5 Mg Ampul.Neb 3 Ml INHALATION 3 ml Q4HRT DANE Administration Albuterol/Ipratropium 3 ml 11/23/24 11:56 11/23/24 15:00 Ipratropium 0.5 Mg/Albuterol Sulfate 2.5 Mg Ampul.Neb 3 Ml INHALATION 3 ml Q6HRT PRN Administration Dyspnea Bupropion HCl 300 mg 11/14/24 09:00 11/24/24 08:40 Bupropion Hcl Xl (24 Hr) 150 Mg Tabcr BY MOUTH 300 mg DAILY DANE Administration Enoxaparin Sodium 40 mg 11/21/24 09:00 11/24/24 08:41 Enoxaparin 40 Mg/0.4 Ml Syringe SUB-Q 40 mg DAILY DANE Administration Ferrous Sulfate 325 mg 11/14/24 09:00 11/24/24 08:41 Ferrous Sulfate [address] BY MOUTH 325 mg DAILY DANE Administration Guaifenesin 1,200 mg 11/14/24 10:35 11/24/24 08:40 Guaifenesin 12 Hr 600 Mg Tabcr PO 1,200 mg Q12HR DANE Administration Levetiracetam 500 mg 11/14/24 13:35 11/24/24 08:41 Levetiracetam 500 Mg Tablet PO 500 mg Q12HR DANE Administration Lidocaine 1 patch 11/14/24 09:00 11/24/24 08:42 Lidocaine 5% Patch TOPICAL 1 patch DAILY DANE Administration Midodrine 2.5 mg 11/14/24 09:00 11/24/24 08:41 Midodrine Hcl 2.5 Mg Tablet PO 2.5 mg BID DANE Administration Miscellaneous Information 0 each 11/23/24 00:01 Please Renew Pregabalin, 10 Day Autostop XX 12/23/24 00:00 CLARIFY DANE Oxycodone HCl 10 mg 11/22/24 01:00 Oxycodone Hcl (*Crx) 5 Mg Tab Ir PO BID@0100,0500 PRN Breakthrough Pain Oxycodone HCl 10 mg 11/21/24 15:43 11/24/24 06:11 Oxycodone Hcl (*Crx) 5 Mg Tab Ir PO 10 mg Q4HR PRN Administration Pain Rated 4-6 Pantoprazole Sodium 40 mg 11/14/24 09:00 11/24/24 08:41 Pantoprazole 40 Mg Tablet PO 40 mg Q12HR DANE Administration Paroxetine HCl 40 mg 11/14/24 09:00 11/24/24 08:40 Paroxetine 20 Mg Tablet BY MOUTH 40 mg QAM DANE Administration Pregabalin 150 mg 11/14/24 09:00 11/23/24 18:02 Pregabalin (*Crx) 75 Mg Capsule PO 150 mg BID DANE Administration Sodium Chloride 1 spray 11/19/24 22:13 11/20/24 00:02 Saline 0.65% Meir Soln 44 Ml Btl NASAL 1 spray Q6HR PRN Administration Congestion Tizanidine HCl 4 mg 11/14/24 02:03 11/17/24 16:41 Tizanidine Hcl 4 Mg Tablet PO 4 mg TID PRN Administration muscle spasticity Trazodone HCl 100 mg 11/14/24 21:00 11/23/24 20:51 Trazodone Hcl 50 Mg Tablet PO 100 mg QHS DANE Administration Radiology Results: ITS Impressions Chest CTA 11/13/24 21:03 IMPRESSION: No pulmonary embolus. No thoracic aortic dissection. Obstruction of the left lower lobe bronchus with postobstructive consolidation for which direct visualization is recommended. Additional findings within the remainder of the left as well as the remaining right lung for which infectious etiology is favored. Chest CT 11/20/24 14:52 IMPRESSION: 1. Diffuse lung disease with worsening on the right and improvement on the left, consistent with pneumonia. 2. Mild emphysema. Venous Doppler Study 11/20/24 19:54 IMPRESSION: Patent bilateral lower extremity veins. No evidence of deep venous thrombosis. Chest X-Ray 11/23/24 06:12 Impression: Hazy and interstitial pulmonary disease, right significantly worse than left, is unchanged from prior exam. Correlate for asymmetric pulmonary edema versus pneumonia. Labs Labs: Laboratory Results - last 24 hr 11/19/24 11/23/24 11/24/24 04:29 14:39 04:53 D-Dimer 0.85 H C-Reactive Protein 2.5 H Alpha-1-AT Phenotype See note Mycoplasma pneumon IgM 28 Quality VTE Prophylaxis VTE prophylaxis: mechanical ordered and pharmacologic ordered
[2024-11-24] MEDS: PREGABALIN (*CRX) 75 MG CAPSULE 150 MG PO (10:32)
--- NOTE | 2024-11-24 10:57 | P.PNPL_ITS ---
Progress Note: A&P Assessment and Plan (1) Respiratory failure with hypoxia and hypercapnia: Code(s): J96.91 - Respiratory failure, unspecified with hypoxia; J96.92 - Respiratory failure, unspecified with hypercapnia Status: Acute Assessment and Plan: This 64-year-old male patient, with a medical history of COPD and previous lung resection for lung cancer, presented with acute respiratory failure due to a l ower respiratory tract infection. Testing revealed positive results for influenza A and human metapneumovirus (hMPV), and a urine test was positive for pneumococcal antigen, indicating a pneumonia likely caused by multiple infectious agents. The patient has been treated for influenza A and is currently receiving three antibiotics to address potential bacterial coinfection. Although his gas exchange has improved in the past few days, he remains on high-flow oxygen via nasal cannula with high FiO2. He continues to experience shortness of breath but does not have a fever or signs of sepsis. He has a productive cough with dark yellow sputum. Given the positive respiratory panel for hMPV and the slow response to antibiotics, it is possible that hMPV is contributing significantly to his pneumonia. Typically, pneumococcal pneumonia responds to antibiotics within 48 hours. Severe pneumonia due to hMPV has been documented in patients with underlying conditions such as COPD or compromised immune systems. Severe pneumonia related to influenza A is is more likely in this setting. Chest CT done 2 days ago showed worsening right lung pneumonia compared to the 1st chest CT approximately a week ago. Left lung infiltrates have cleared. Clinically, the patient exhibits significant oxyhemoglobin desaturation with any movement in bed, which is associated with the near-whitening appearance of the right lung. He has experienced some chest congestion and difficulty clearing bronchial secretions due to overall weakness. He was started on nebulized Mucomyst treatment, and over the last 2 days he appears to have reduced chest congestion. Otherwise, the physical examination remains unchanged. Today testing shows that CRP levels are even lower, but the chest X-ray shows no significant clearing. Currently his FiO2 is down to 60% with O2 saturation in the mid 90% range. Overall his respiratory status has been more stable over the last 48 hours with no episodes of desaturation while in bed. Plan: Please maintain the current management strategy, including pulmonary hygiene and nebulized short-acting bronchodilators. Transition to as-needed nebulized mucolytic agents and continue with DVT prophylaxis. We will consider a repeat chest CT to assess potential partial resolution of the right-sided pneumonia, which is not visible on the bedside portable chest X-ray. Ongoing monitoring for signs of nosocomial infection will continue. (2) History of lung cancer: Code(s): Z85.118 - Personal history of other malignant neoplasm of bronchus and lung Status: Acute (3) Chronic narcotic use: Code(s): F11.90 - Opioid use, unspecified, uncomplicated Status: Acute (4) Influenza A: Code(s): J10.1 - Influenza due to other identified influenza virus with other respiratory manifestations Status: Acute (5) COPD (chronic obstructive pulmonary disease): Qualifiers: COPD type: unspecified COPD Qualified Code(s): J44.9 - Chronic obstructive pulmonary disease, unspecified Code(s): J44.9 - Chronic obstructive pulmonary disease, unspecified Status: Acute Subjective Date/time seen: 11/24/24 10:57 Interval history: Patient has no new respiratory symptoms. When asked he stated that he is feeling better. No chest congestion. Remains on same FiO2. Did not get out of bed yesterday. Review of Systems Review of Systems: All systems reviewed & are unremarkable except as noted in HPI and below (HPI and below) Exam Narrative: GENERAL APPEARANCE: Well developed, well nourished, alert and cooperative, appears to be mild respiratory distress while high-flow nasal cannula SKIN: Inspection of the skin reveals no rashes, ulcerations or petechiae. HEENT: Sclerae anicteric and conjunctivae pink and moist. Extraocular movements were intact and pupils were equal, round. Moist oral mucosa. NECK: Supple. There was no thyroid enlargement, and no tenderness, or masses were felt. CHEST: Normal AP diameter and normal contour without any kyphoscoliosis. LUNGS: Crackles in right lung posteriorly, few crackles left lung base posteriorly CARDIAC: There was a regular rate and rhythm without any murmurs, gallops, rubs. ABDOMEN: Soft and nontender with normal bowel sounds. There was no organomegaly. LYMPH NODES: No lymphadenopathy was appreciated in the neck. EXTREMITIES: No cyanosis, clubbing or edema. NEUROLOGIC: Alert and oriented x 3. Normal affect. Objective Data Vital Signs Vital Signs: Vital Signs - 24 hr 11/23/24 12:00 11/23/24 12:00 11/23/24 12:00 Temperature 36.8 C Pulse Rate 103 H 102 H Respiratory Rate 32 H Blood Pressure 110/79 Pulse Oximetry 95 99 Oxygen Delivery High Flow Therapy with Na Oxygen Flow Rate 45 Fraction of Inspired Oxygen 75 11/23/24 14:00 11/23/24 15:01 11/23/24 16:00 Temperature Pulse Rate 91 85 88 Respiratory Rate 20 Blood Pressure Pulse Oximetry Oxygen Delivery Oxygen Flow Rate Fraction of Inspired Oxygen 11/23/24 16:00 11/23/24 16:00 11/23/24 18:00 Temperature 36.6 C Pulse Rate 86 86 Respiratory Rate 22 H Blood Pressure 107/66 Pulse Oximetry 96 98 Oxygen Delivery High Flow Therapy with Na Oxygen Flow Rate 45 Fraction of Inspired Oxygen 70 11/23/24 19:33 11/23/24 20:00 11/23/24 20:00 Temperature 36.8 C Pulse Rate 86 89 89 Respiratory Rate 18 20 Blood Pressure 113/68 Pulse Oximetry 94 94 Oxygen Delivery High Flow Therapy with Na Oxygen Flow Rate 45 Fraction of Inspired Oxygen 70 11/23/24 20:31 11/23/24 20:32 11/23/24 20:39 Temperature Pulse Rate 83 89 Respiratory Rate 20 20 Blood Pressure Pulse Oximetry 94 Oxygen Delivery High Flow Therapy with Na Oxygen Flow Rate 45 Fraction of Inspired Oxygen 60 11/23/24 22:00 11/23/24 23:23 11/23/24 23:23 Temperature Pulse Rate 78 78 78 Respiratory Rate 20 Blood Pressure Pulse Oximetry 94 Oxygen Delivery High Flow Therapy with Na Oxygen Flow Rate 45 Fraction of Inspired Oxygen 70 11/23/24 23:25 11/24/24 00:21 11/24/24 02:00 Temperature 36.4 C Pulse Rate 74 85 68 Respiratory Rate 18 20 Blood Pressure 116/65 Pulse Oximetry 98 Oxygen Delivery Oxygen Flow Rate Fraction of Inspired Oxygen 11/24/24 04:00 11/24/24 04:00 11/24/24 04:00 Temperature 36.5 C Pulse Rate 77 77 77 Respiratory Rate 20 18 Blood Pressure 121/69 Pulse Oximetry 98 96 Oxygen Delivery High Flow Therapy with Na Oxygen Flow Rate 45 Fraction of Inspired Oxygen 60 11/24/24 04:22 11/24/24 04:29 11/24/24 05:15 Temperature Pulse Rate 88 91 82 Respiratory Rate 20 Blood Pressure Pulse Oximetry Oxygen Delivery Oxygen Flow Rate Fraction of Inspired Oxygen 11/24/24 07:24 11/24/24 08:56 11/24/24 08:56 Temperature 35.9 C L Pulse Rate 77 86 Respiratory Rate 16 20 Blood Pressure 110/63 Pulse Oximetry 95 91 Oxygen Delivery High Flow Therapy with Na Oxygen Flow Rate 45 Fraction of Inspired Oxygen 60 Intake/Output Intake/Output: Intake & Output 11/21/24 11/22/24 11/23/24 11/24/24 23:59 23:59 23:59 23:59 Intake Total 6979 674 9094 220 Output Total 2450 2650 850 600 Balance -4110 -2581 260 -380 Meds/Results Medications: Active Medications Generic Name Dose Route Start Last Admin Trade Name Freq PRN Reason Stop Dose Admin Acetaminophen 650 mg 11/13/24 21:48 11/23/24 19:35 Acetaminophen 325 Mg Tablet PO 650 mg Q4H PRN Administration Mild Pain (1-3) or Fever Acetylcysteine 200 mg 11/24/24 10:56 Acetylcysteine 20% Inhal Soln 800 Mg/4 Ml Vial INHALATION Q12HR PRN Congestion Albuterol/Ipratropium 3 ml 11/17/24 08:00 11/24/24 08:54 Ipratropium 0.5 Mg/Albuterol Sulfate 2.5 Mg Ampul.Neb 3 Ml INHALATION 3 ml Q4HRT DANE Administration Albuterol/Ipratropium 3 ml 11/23/24 11:56 11/23/24 15:00 Ipratropium 0.5 Mg/Albuterol Sulfate 2.5 Mg Ampul.Neb 3 Ml INHALATION 3 ml Q6HRT PRN Administration Dyspnea Bupropion HCl 300 mg 11/14/24 09:00 11/24/24 08:40 Bupropion Hcl Xl (24 Hr) 150 Mg Tabcr BY MOUTH 300 mg DAILY DANE Administration Enoxaparin Sodium 40 mg 11/21/24 09:00 11/24/24 08:41 Enoxaparin 40 Mg/0.4 Ml Syringe SUB-Q 40 mg DAILY DANE Administration Ferrous Sulfate 325 mg 11/14/24 09:00 11/24/24 08:41 Ferrous Sulfate [address] BY MOUTH 325 mg DAILY DANE Administration Guaifenesin 1,200 mg 11/14/24 10:35 11/24/24 08:40 Guaifenesin 12 Hr 600 Mg Tabcr PO 1,200 mg Q12HR DANE Administration Levetiracetam 500 mg 11/14/24 13:35 11/24/24 08:41 Levetiracetam 500 Mg Tablet PO 500 mg Q12HR DANE Administration Lidocaine 1 patch 11/14/24 09:00 11/24/24 08:42 Lidocaine 5% Patch TOPICAL 1 patch DAILY DANE Administration Midodrine 2.5 mg 11/14/24 09:00 11/24/24 08:41 Midodrine Hcl 2.5 Mg Tablet PO 2.5 mg BID DANE Administration Miscellaneous Information 0 each 11/23/24 00:01 Please Renew Pregabalin, 10 Day Autostop XX 12/23/24 00:00 CLARIFY DANE Oxycodone HCl 10 mg 11/22/24 01:00 Oxycodone Hcl (*Crx) 5 Mg Tab Ir PO BID@0100,0500 PRN Breakthrough Pain Oxycodone HCl 10 mg 11/21/24 15:43 11/24/24 10:33 Oxycodone Hcl (*Crx) 5 Mg Tab Ir PO 10 mg Q4HR PRN Administration Pain Rated 4-6 Pantoprazole Sodium 40 mg 11/14/24 09:00 11/24/24 08:41 Pantoprazole 40 Mg Tablet PO 40 mg Q12HR DANE Administration Paroxetine HCl 40 mg 11/14/24 09:00 11/24/24 08:40 Paroxetine 20 Mg Tablet BY MOUTH 40 mg QAM DANE Administration Pregabalin 150 mg 11/14/24 09:00 11/24/24 10:32 Pregabalin (*Crx) 75 Mg Capsule PO 150 mg BID DANE Administration Sodium Chloride 1 spray 11/19/24 22:13 11/20/24 00:02 Saline 0.65% Meir Soln 44 Ml Btl NASAL 1 spray Q6HR PRN Administration Congestion Tizanidine HCl 4 mg 11/14/24 02:03 11/17/24 16:41 Tizanidine Hcl 4 Mg Tablet PO 4 mg TID PRN Administration muscle spasticity Trazodone HCl 100 mg 11/14/24 21:00 11/23/24 20:51 Trazodone Hcl 50 Mg Tablet PO 100 mg QHS DANE Administration Radiology Results: ITS Impressions Chest CT 11/20/24 14:52 IMPRESSION: 1. Diffuse lung disease with worsening on the right and improvement on the left, consistent with pneumonia. 2. Mild emphysema. Venous Doppler Study 11/20/24 19:54 IMPRESSION: Patent bilateral lower extremity veins. No evidence of deep venous thrombosis. Chest X-Ray 11/23/24 06:12 Impression: Hazy and interstitial pulmonary disease, right significantly worse than left, is unchanged from prior exam. Correlate for asymmetric pulmonary edema versus pneumonia. Labs Labs: Laboratory Results - last 24 hr 11/19/24 11/23/24 11/24/24 04:29 14:39 04:53 D-Dimer 0.85 H C-Reactive Protein 2.5 H Alpha-1-AT Phenotype See note Mycoplasma pneumon IgM 28
--- NOTE | 2024-11-24 12:06 | PCOTNOTE ---
The patient treatment was not able to be completed patient getting lunch. Will plan to continue treatment per plan of care.
[2024-11-24] MEDS: TIZANIDINE HCL 4 MG TABLET PO (13:41)
--- NOTE | 2024-11-24 14:06 | PC.NURSE ---
On 11/24/24, the student, [Rosalee Llamas], provided care and completed [facility] documentation on this patient. I have reviewed the student's documentation and agree with the findings.
[2024-11-24] MEDS: traZODone HCL 50 MG TABLET 100 MG PO (20:43)
[2024-11-25] VITALS (25 sets, daily range): BP systolic 99–123; BP diastolic 60–71; PULSE 88–109; RESP 16–24; TEMP 36.2–37.1; O2SAT 90–98
--- NOTE | 2024-11-25 02:59 | PCRCNOTE ---
Window of time for administration has passed. See next scheduled administration.
[2024-11-25] MEDS: IPRATROPIUM 0.5 MG/ALBUTEROL SULFATE 2.5 MG AMPUL.NEB 3 ML INHALATION ×5 (03:02→19:49)
[2024-11-25] MEDS: oxyCODONE HCL (*CRX) 5 MG TAB IR 10 MG PO ×3 (05:07→16:35)
[2024-11-25] MEDS: ACETAMINOPHEN 325 MG TABLET 650 MG PO ×2 (06:27→18:30)
--- NOTE | 2024-11-25 07:26 | P.PNPL_ITS ---
Progress Note: A&P Assessment and Plan (1) Respiratory failure with hypoxia and hypercapnia: Code(s): J96.91 - Respiratory failure, unspecified with hypoxia; J96.92 - Respiratory failure, unspecified with hypercapnia Status: Acute Assessment and Plan: This 64-year-old male patient, with a medical history of COPD and previous lung resection for lung cancer, presented with acute respiratory failure due to a l ower respiratory tract infection. Testing revealed positive results for influenza A and human metapneumovirus (hMPV), and a urine test was positive for pneumococcal antigen, indicating a pneumonia likely caused by multiple infectious agents. The patient has been treated for influenza A and is currently receiving three antibiotics to address potential bacterial coinfection. Although his gas exchange has improved in the past few days, he remains on high-flow oxygen via nasal cannula with high FiO2. He continues to experience shortness of breath but does not have a fever or signs of sepsis. He has a productive cough with dark yellow sputum. Given the positive respiratory panel for hMPV and the slow response to antibiotics, it is possible that hMPV is contributing significantly to his pneumonia. Typically, pneumococcal pneumonia responds to antibiotics within 48 hours. Severe pneumonia due to hMPV has been documented in patients with underlying conditions such as COPD or compromised immune systems. Severe pneumonia related to influenza A is is more likely in this setting. Chest CT done 2 days ago showed worsening right lung pneumonia compared to the 1st chest CT approximately a week ago. Left lung infiltrates have cleared. Clinically, the patient exhibits significant oxyhemoglobin desaturation with any movement in bed, which is associated with the near-whitening appearance of the right lung. He has experienced some chest congestion and difficulty clearing bronchial secretions due to overall weakness. He was started on nebulized Mucomyst treatment, and over the last 3 days he appears to have reduced chest congestion. Currently his of nebulized Mucomyst. Otherwise, the physical examination remains unchanged. He has had any WBC tested over the last couple of days. On today's exam his respiratory status is more or less unchanged. He has no signs of infection which is a concern for this patient Plan: Repeat WBC out of bed to chair. (2) History of lung cancer: Code(s): Z85.118 - Personal history of other malignant neoplasm of bronchus and lung Status: Acute (3) Chronic narcotic use: Code(s): F11.90 - Opioid use, unspecified, uncomplicated Status: Acute (4) Influenza A: Code(s): J10.1 - Influenza due to other identified influenza virus with other respiratory manifestations Status: Acute (5) COPD (chronic obstructive pulmonary disease): Qualifiers: COPD type: unspecified COPD Qualified Code(s): J44.9 - Chronic obstructive pulmonary disease, unspecified Code(s): J44.9 - Chronic obstructive pulmonary disease, unspecified Status: Acute Subjective Date/time seen: 11/25/24 07:26 Interval history: Patient has no new respiratory symptoms. Specifically he has no fever chills or change in his shortness of breath. His FiO2 increased back up to 70% from 40% he was on yesterday. Review of Systems Review of Systems: All systems reviewed & are unremarkable except as noted in HPI and below (HPI and below) Exam Narrative: GENERAL APPEARANCE: Well developed, well nourished, alert and cooperative, appears to be mild respiratory distress while high-flow nasal cannula SKIN: Inspection of the skin reveals no rashes, ulcerations or petechiae. HEENT: Sclerae anicteric and conjunctivae pink and moist. Extraocular movements were intact and pupils were equal, round. Moist oral mucosa. NECK: Supple. There was no thyroid enlargement, and no tenderness, or masses were felt. CHEST: Normal AP diameter and normal contour without any kyphoscoliosis. LUNGS: Crackles in right lung posteriorly, few crackles left lung base posteriorly CARDIAC: There was a regular rate and rhythm without any murmurs, gallops, rubs. ABDOMEN: Soft and nontender with normal bowel sounds. There was no organomegaly. LYMPH NODES: No lymphadenopathy was appreciated in the neck. EXTREMITIES: No cyanosis, clubbing or edema. NEUROLOGIC: Alert and oriented x 3. Normal affect. Objective Data Vital Signs Vital Signs: Vital Signs - 24 hr 11/24/24 08:00 11/24/24 08:00 11/24/24 08:56 Temperature Pulse Rate 79 86 Respiratory Rate 20 Blood Pressure Pulse Oximetry 91 91 Oxygen Delivery High Flow Therapy with Na High Flow Therapy with Na Oxygen Flow Rate 45 45 Fraction of Inspired Oxygen 60 60 11/24/24 08:56 11/24/24 09:20 11/24/24 10:00 Temperature Pulse Rate 86 82 86 Respiratory Rate 20 18 Blood Pressure Pulse Oximetry 93 Oxygen Delivery High Flow Therapy with Na Oxygen Flow Rate 45 Fraction of Inspired Oxygen 60 11/24/24 11:17 11/24/24 11:44 11/24/24 12:00 Temperature 36.6 C Pulse Rate 82 87 Respiratory Rate 18 Blood Pressure 99/61 L Pulse Oximetry 98 93 Oxygen Delivery High Flow Therapy with Na Oxygen Flow Rate 45 Fraction of Inspired Oxygen 50 11/24/24 12:00 11/24/24 13:58 11/24/24 13:58 Temperature Pulse Rate 92 Respiratory Rate 20 Blood Pressure Pulse Oximetry 91 97 Oxygen Delivery High Flow Therapy with Na High Flow Therapy with Na Oxygen Flow Rate 45 45 Fraction of Inspired Oxygen 40 50 11/24/24 14:00 11/24/24 14:15 11/24/24 14:15 Temperature Pulse Rate 84 94 Respiratory Rate 20 Blood Pressure Pulse Oximetry 92 Oxygen Delivery High Flow Therapy with Na Oxygen Flow Rate 45 Fraction of Inspired Oxygen 40 11/24/24 16:00 11/24/24 16:00 11/24/24 16:00 Temperature 36.4 C L Pulse Rate 90 88 Respiratory Rate 20 Blood Pressure 93/61 L Pulse Oximetry 94 91 Oxygen Delivery High Flow Therapy with Na Oxygen Flow Rate 45 Fraction of Inspired Oxygen 40 11/24/24 16:45 11/24/24 16:55 11/24/24 18:00 Temperature Pulse Rate 87 88 94 Respiratory Rate 20 20 Blood Pressure Pulse Oximetry Oxygen Delivery Oxygen Flow Rate Fraction of Inspired Oxygen 11/24/24 20:00 11/24/24 20:00 11/24/24 20:00 Temperature 36.6 C Pulse Rate 98 98 98 Respiratory Rate 18 20 Blood Pressure 98/59 L Pulse Oximetry 89 L 96 Oxygen Delivery High Flow Therapy with Na Oxygen Flow Rate 45 Fraction of Inspired Oxygen 40 11/24/24 20:35 11/24/24 20:45 11/24/24 20:45 Temperature Pulse Rate 90 93 Respiratory Rate 20 20 Blood Pressure Pulse Oximetry 96 Oxygen Delivery High Flow Therapy with Na Oxygen Flow Rate 45 Fraction of Inspired Oxygen 40 11/24/24 22:00 11/24/24 23:52 11/24/24 23:52 Temperature Pulse Rate 99 96 96 Respiratory Rate 20 Blood Pressure Pulse Oximetry 96 Oxygen Delivery High Flow Therapy with Na Oxygen Flow Rate 40 Fraction of Inspired Oxygen 40 11/25/24 00:00 11/25/24 01:29 11/25/24 03:02 Temperature 36.4 C Pulse Rate 89 88 88 Respiratory Rate 18 18 Blood Pressure 101/64 Pulse Oximetry 93 Oxygen Delivery Oxygen Flow Rate Fraction of Inspired Oxygen 11/25/24 03:12 11/25/24 04:00 11/25/24 04:00 Temperature Pulse Rate 90 96 96 Respiratory Rate 18 18 Blood Pressure Pulse Oximetry 93 Oxygen Delivery High Flow Therapy with Na Oxygen Flow Rate 45 Fraction of Inspired Oxygen 40 11/25/24 04:00 11/25/24 05:21 Temperature 36.7 C Pulse Rate 101 H 101 H Respiratory Rate 18 Blood Pressure 120/60 Pulse Oximetry 90 Oxygen Delivery Oxygen Flow Rate Fraction of Inspired Oxygen Intake/Output Intake/Output: Intake & Output 11/22/24 11/23/24 11/24/24 11/25/24 23:59 23:59 23:59 23:59 Intake Total 987 1110 1040 630 Output Total 2650 850 1225 400 Balance -1663 260 -185 230 Meds/Results Medications: Active Medications Generic Name Dose Route Start Last Admin Trade Name Freq PRN Reason Stop Dose Admin Acetaminophen 650 mg 11/13/24 21:48 11/25/24 06:27 Acetaminophen 325 Mg Tablet PO 650 mg Q4H PRN Administration Mild Pain (1-3) or Fever Acetylcysteine 200 mg 11/24/24 10:56 Acetylcysteine 20% Inhal Soln 800 Mg/4 Ml Vial INHALATION Q12HR PRN Congestion Albuterol/Ipratropium 3 ml 11/17/24 08:00 11/25/24 03:02 Ipratropium 0.5 Mg/Albuterol Sulfate 2.5 Mg Ampul.Neb 3 Ml INHALATION 3 ml Q4HRT DANE Administration Albuterol/Ipratropium 3 ml 11/23/24 11:56 11/23/24 15:00 Ipratropium 0.5 Mg/Albuterol Sulfate 2.5 Mg Ampul.Neb 3 Ml INHALATION 3 ml Q6HRT PRN Administration Dyspnea Bupropion HCl 300 mg 11/14/24 09:00 11/24/24 08:40 Bupropion Hcl Xl (24 Hr) 150 Mg Tabcr BY MOUTH 300 mg DAILY DANE Administration Enoxaparin Sodium 40 mg 11/21/24 09:00 11/24/24 08:41 Enoxaparin 40 Mg/0.4 Ml Syringe SUB-Q 40 mg DAILY DANE Administration Ferrous Sulfate 325 mg 11/14/24 09:00 11/24/24 08:41 Ferrous Sulfate [address] BY MOUTH 325 mg DAILY DANE Administration Guaifenesin 1,200 mg 11/14/24 10:35 11/24/24 20:43 Guaifenesin 12 Hr 600 Mg Tabcr PO 1,200 mg Q12HR DANE Administration Levetiracetam 500 mg 11/14/24 13:35 11/24/24 20:43 Levetiracetam 500 Mg Tablet PO 500 mg Q12HR DANE Administration Lidocaine 1 patch 11/14/24 09:00 11/24/24 08:42 Lidocaine 5% Patch TOPICAL 1 patch DAILY DANE Administration Midodrine 2.5 mg 11/14/24 09:00 11/24/24 20:45 Midodrine Hcl 2.5 Mg Tablet PO Not Given BID [facility] Miscellaneous Information 0 each 11/23/24 00:01 Please Renew Pregabalin, 10 Day Autostop XX 12/23/24 00:00 CLARIFY DANE Oxycodone HCl 10 mg 11/22/24 01:00 Oxycodone Hcl (*Crx) 5 Mg Tab Ir PO BID@0100,0500 PRN Breakthrough Pain Oxycodone HCl 10 mg 11/21/24 15:43 11/25/24 05:07 Oxycodone Hcl (*Crx) 5 Mg Tab Ir PO 10 mg Q4HR PRN Administration Pain Rated 4-6 Pantoprazole Sodium 40 mg 11/14/24 09:00 11/24/24 20:43 Pantoprazole 40 Mg Tablet PO 40 mg Q12HR DANE Administration Paroxetine HCl 40 mg 11/14/24 09:00 11/24/24 08:40 Paroxetine 20 Mg Tablet BY MOUTH 40 mg QAM DANE Administration Pregabalin 150 mg 11/14/24 09:00 11/24/24 20:46 Pregabalin (*Crx) 75 Mg Capsule PO Not Given BID [facility] [place] Sodium Chloride 1 spray 11/19/24 22:13 11/20/24 00:02 Saline 0.65% Meir Soln 44 Ml Btl NASAL 1 spray Q6HR PRN Administration Congestion Tizanidine HCl 4 mg 11/14/24 02:03 11/24/24 13:41 Tizanidine Hcl 4 Mg Tablet PO 4 mg TID PRN Administration muscle spasticity Trazodone HCl 100 mg 11/14/24 21:00 11/24/24 20:43 Trazodone Hcl 50 Mg Tablet PO 100 mg QHS DANE Administration Radiology Results: ITS Impressions Chest CT 11/20/24 14:52 IMPRESSION: 1. Diffuse lung disease with worsening on the right and improvement on the left, consistent with pneumonia. 2. Mild emphysema. Venous Doppler Study 11/20/24 19:54 IMPRESSION: Patent bilateral lower extremity veins. No evidence of deep venous thrombosis. Chest X-Ray 11/23/24 06:12 Impression: Hazy and interstitial pulmonary disease, right significantly worse than left, is unchanged from prior exam. Correlate for asymmetric pulmonary edema versus pneumonia. Chest CTA 11/24/24 11:00 Impression: No evidence of pulmonary embolus, aortic dissection, or aortic aneurysm. Mild interval improvement in extensive right lung pneumonia/groundglass pulmonary disease. Complete left lower lobe atelectasis. Patchy small airways infection throughout the left upper lobe with extensive tree-in-bud opacities and nodularity similar to prior exam. Probable underlying chronic interstitial change extensively in the right lung base, especially right lower lobe. Mild emphysema.
--- NOTE | 2024-11-25 08:39 | P.PNIM_ITS ---
Progress Note: A&P Assessment and Plan (1) Postobstructive pneumonia: Code(s): J18.9 - Pneumonia, unspecified organism Status: Acute Assessment and Plan: Slowly improving * CTA chest without PE. * Patchy bibasilar ground opacity suspicious for infection as well as left descending bronchus being largely obstructive with postobstructive consolidation noted as well. * Continue Cefepime and Levofloxacin completed. Flagyl discontinued. * Duoneb q 4. * Guaifenesin 1,200 mg PO q 12. * Cornet flutter valve to aid in sputum expectoration. * CPT * Dr. Mosley and Dr. Wilkins Pulmonologists following * Repeat CT scan in 3-6 weeks. * His urine streptococcal antigen from 11/14/2024 returned positive today. * Add PT/OT * Human Metapneumovirus from 11/17/24 is positive. * Echocardiogram EF 55-60%, grade 1 diastolic dysfunction * LE dopplers negative. * Chest CT 11/24 shows improvement * Blood cultures negative. (2) Influenza A: Code(s): J10.1 - Influenza due to other identified influenza virus with other respiratory manifestations Status: Acute Assessment and Plan: Improving * Influenza A positive. * Negative for COVID, RSV and Influenza B. * Tamiflu 75 mg PO q 12. Completed * High-flow nasal cannula, she had x-rays as able * Afebrile. (3) Pulmonary edema: Code(s): J81.1 - Chronic pulmonary edema Status: Acute Assessment and Plan: Improving Repeat chest x-ray in the morning slightly improved Echocardiogram 55-60% grade 1 diastolic dysfunction (4) COPD (chronic obstructive pulmonary disease): Qualifiers: COPD type: unspecified COPD Qualified Code(s): J44.9 - Chronic obstructive pulmonary disease, unspecified Code(s): J44.9 - Chronic obstructive pulmonary disease, unspecified Status: Acute Assessment and Plan: * Duoneb q4 * Continue Cefepime and Levofloxacin. Flagyl discontinued. * Guaifenesin 1,200 mg PO q 12. * Pulmonology consulted (5) Hypokalemia: Code(s): E87.6 - Hypokalemia Status: Acute Assessment and Plan: * Improved * Monitor labs. * Replete as needed (6) Back pain: Qualifiers: Back pain laterality: unspecified Back pain location: thoracic back pain Chronicity: unspecified Qualified Code(s): M54.6 - Pain in thoracic spine Code(s): M54.9 - Dorsalgia, unspecified Status: Acute Assessment and Plan: * Oxycodone for pain. * And muscle relaxer Plan full code Time Spent With Patient Time with patient: Greater than 35 minutes Subjective Date/time seen: 11/25/24 08:39 Interval history: 64-year-old male with a past medical history to tobacco abuse, COPD, lung cancer status post right middle lobe lobectomy in 2019, vitamin B12 deficiency, iron deficiency anemia, chronic pain and chronic opioid use, GERD, hypotension who presents with shortness of breath for about a week. Patient's oxygen demands are waxing and waning Review of Systems Review of Systems: All systems reviewed & are unremarkable except as noted in HPI and below Exam Narrative: General: Ill-appearing HEENT: normocephalic, atraumatic. Mucous membranes moist. EOMI, PERRLA, bilateral sclera anicteric, no conjunctival injection. Neck supple without JVD, lymphadenopathy, or bruit. Respiratory: Course to ascultation bilaterally. Cardiovascular: Regular rate and rhythm, normal S1-S2 upon ascultation. No murmurs, rubs, or clicks. PMI is nondisplaced, capillary refill less than 3 second. Abdomen: Soft, round, no pulsatile masses, nondistended and nontender. No rebound, no guarding. No CVA tenderness, no hepatosplenomegaly. Bowel sounds present to all four quadrants. No high pitch or tinkling sounds, resonant to percussion. Extremities: No cyanosis, clubbing, or edema present. Pulses are palpable 2/2. Active ROM to all four extremities. Neuro: Alert and orientated x 4. PERRLA. Cranial nerves 2-12 intact without focal deficit. Skin: Warm, dry, and intact, without rash, erythema, or lesion. Psych: pleasant, cooperative, normal speech, normal affect, no hallucinations, no dysarthia High-flow nasal cannula Objective Data Vital Signs Vital Signs: Vital Signs - 24 hr 11/24/24 08:56 11/24/24 08:56 11/24/24 09:20 Temperature Pulse Rate 86 82 Respiratory Rate 20 18 Blood Pressure Pulse Oximetry 91 93 Oxygen Delivery High Flow Therapy with Na High Flow Therapy with Na Oxygen Flow Rate 45 45 Fraction of Inspired Oxygen 60 60 11/24/24 10:00 11/24/24 11:17 11/24/24 11:44 Temperature 97.9 F Pulse Rate 86 82 Respiratory Rate 18 Blood Pressure 99/61 L Pulse Oximetry 98 93 Oxygen Delivery High Flow Therapy with Na Oxygen Flow Rate 45 Fraction of Inspired Oxygen 50 11/24/24 12:00 11/24/24 12:00 11/24/24 13:58 Temperature Pulse Rate 87 Respiratory Rate Blood Pressure Pulse Oximetry 91 97 Oxygen Delivery High Flow Therapy with Na High Flow Therapy with Na Oxygen Flow Rate 45 45 Fraction of Inspired Oxygen 40 50 11/24/24 13:58 11/24/24 14:00 11/24/24 14:15 Temperature Pulse Rate 92 84 Respiratory Rate 20 Blood Pressure Pulse Oximetry 92 Oxygen Delivery High Flow Therapy with Na Oxygen Flow Rate 45 Fraction of Inspired Oxygen 40 11/24/24 14:15 11/24/24 16:00 11/24/24 16:00 Temperature 97.5 F L Pulse Rate 94 90 Respiratory Rate 20 20 Blood Pressure 93/61 L Pulse Oximetry 94 91 Oxygen Delivery High Flow Therapy with Na Oxygen Flow Rate 45 Fraction of Inspired Oxygen 40 11/24/24 16:00 11/24/24 16:45 11/24/24 16:55 Temperature Pulse Rate 88 87 88 Respiratory Rate 20 20 Blood Pressure Pulse Oximetry Oxygen Delivery Oxygen Flow Rate Fraction of Inspired Oxygen 11/24/24 18:00 11/24/24 20:00 11/24/24 20:00 Temperature 97.8 F Pulse Rate 94 98 98 Respiratory Rate 18 20 Blood Pressure 98/59 L Pulse Oximetry 89 L 96 Oxygen Delivery High Flow Therapy with Na Oxygen Flow Rate 45 Fraction of Inspired Oxygen 40 11/24/24 20:00 11/24/24 20:35 11/24/24 20:45 Temperature Pulse Rate 98 90 Respiratory Rate 20 Blood Pressure Pulse Oximetry 96 Oxygen Delivery High Flow Therapy with Na Oxygen Flow Rate 45 Fraction of Inspired Oxygen 40 11/24/24 20:45 11/24/24 22:00 11/24/24 23:52 Temperature Pulse Rate 93 99 96 Respiratory Rate 20 20 Blood Pressure Pulse Oximetry 96 Oxygen Delivery High Flow Therapy with Na Oxygen Flow Rate 40 Fraction of Inspired Oxygen 40 11/24/24 23:52 11/25/24 00:00 11/25/24 01:29 Temperature 97.6 F Pulse Rate 96 89 88 Respiratory Rate 18 Blood Pressure 101/64 Pulse Oximetry 93 Oxygen Delivery Oxygen Flow Rate Fraction of Inspired Oxygen 11/25/24 03:02 11/25/24 03:12 11/25/24 04:00 Temperature Pulse Rate 88 90 96 Respiratory Rate 18 18 18 Blood Pressure Pulse Oximetry 93 Oxygen Delivery High Flow Therapy with Na Oxygen Flow Rate 45 Fraction of Inspired Oxygen 40 11/25/24 04:00 11/25/24 04:00 11/25/24 05:21 Temperature 98.1 F Pulse Rate 96 101 H 101 H Respiratory Rate 18 Blood Pressure 120/60 Pulse Oximetry 90 Oxygen Delivery Oxygen Flow Rate Fraction of Inspired Oxygen 11/25/24 08:00 Temperature 98.0 F Pulse Rate 95 Respiratory Rate 24 H Blood Pressure 99/63 L Pulse Oximetry 95 Oxygen Delivery Oxygen Flow Rate Fraction of Inspired Oxygen Intake/Output Intake/Output: Intake & Output 11/22/24 11/23/24 11/24/24 11/25/24 23:59 23:59 23:59 23:59 Intake Total 987 1110 1040 630 Output Total 2650 850 1225 400 Balance -1663 260 -185 230 Meds/Results Medications: Active Medications Generic Name Dose Route Start Last Admin Trade Name Freq PRN Reason Stop Dose Admin Acetaminophen 650 mg 11/13/24 21:48 11/25/24 06:27 Acetaminophen 325 Mg Tablet PO 650 mg Q4H PRN Administration Mild Pain (1-3) or Fever Acetylcysteine 200 mg 11/24/24 10:56 Acetylcysteine 20% Inhal Soln 800 Mg/4 Ml Vial INHALATION Q12HR PRN Congestion Albuterol/Ipratropium 3 ml 11/17/24 08:00 11/25/24 03:02 Ipratropium 0.5 Mg/Albuterol Sulfate 2.5 Mg Ampul.Neb 3 Ml INHALATION 3 ml Q4HRT DANE Administration Albuterol/Ipratropium 3 ml 11/23/24 11:56 11/23/24 15:00 Ipratropium 0.5 Mg/Albuterol Sulfate 2.5 Mg Ampul.Neb 3 Ml INHALATION 3 ml Q6HRT PRN Administration Dyspnea Bupropion HCl 300 mg 11/14/24 09:00 11/24/24 08:40 Bupropion Hcl Xl (24 Hr) 150 Mg Tabcr BY MOUTH 300 mg DAILY DANE Administration Enoxaparin Sodium 40 mg 11/21/24 09:00 11/24/24 08:41 Enoxaparin 40 Mg/0.4 Ml Syringe SUB-Q 40 mg DAILY DANE Administration Ferrous Sulfate 325 mg 11/14/24 09:00 11/24/24 08:41 Ferrous Sulfate [address] BY MOUTH 325 mg DAILY DANE Administration Guaifenesin 1,200 mg 11/14/24 10:35 11/24/24 20:43 Guaifenesin 12 Hr 600 Mg Tabcr PO 1,200 mg Q12HR DANE Administration Levetiracetam 500 mg 11/14/24 13:35 11/24/24 20:43 Levetiracetam 500 Mg Tablet PO 500 mg Q12HR DANE Administration Lidocaine 1 patch 11/14/24 09:00 11/24/24 08:42 Lidocaine 5% Patch TOPICAL 1 patch DAILY DANE Administration Midodrine 2.5 mg 11/14/24 09:00 11/24/24 20:45 Midodrine Hcl 2.5 Mg Tablet PO Not Given BID [facility] Miscellaneous Information 0 each 11/23/24 00:01 Please Renew Pregabalin, 10 Day Autostop XX 12/23/24 00:00 CLARIFY [facility] Oxycodone HCl 10 mg 11/22/24 01:00 Oxycodone Hcl (*Crx) 5 Mg Tab Ir PO BID@0100,0500 PRN Breakthrough Pain Oxycodone HCl 10 mg 11/21/24 15:43 11/25/24 05:07 Oxycodone Hcl (*Crx) 5 Mg Tab Ir PO 10 mg Q4HR PRN Administration Pain Rated 4-6 Pantoprazole Sodium 40 mg 11/14/24 09:00 11/24/24 20:43 Pantoprazole 40 Mg Tablet PO 40 mg Q12HR DNAE Administration Paroxetine HCl 40 mg 11/14/24 09:00 11/24/24 08:40 Paroxetine 20 Mg Tablet BY MOUTH 40 mg QAM DANE Administration Pregabalin 150 mg 11/14/24 09:00 11/24/24 20:46 Pregabalin (*Crx) 75 Mg Capsule PO Not Given BID [facility] Sodium Chloride 1 spray 11/19/24 22:13 11/20/24 00:02 Saline 0.65% Meir Soln 44 Ml Btl NASAL 1 spray Q6HR PRN Administration Congestion Tizanidine HCl 4 mg 11/14/24 02:03 11/24/24 13:41 Tizanidine Hcl 4 Mg Tablet PO 4 mg TID PRN Administration muscle spasticity Trazodone HCl 100 mg 11/14/24 21:00 11/24/24 20:43 Trazodone Hcl 50 Mg Tablet PO 100 mg QHS DANE Administration Radiology Results: ITS Impressions Chest CT 11/20/24 14:52 IMPRESSION: 1. Diffuse lung disease with worsening on the right and improvement on the left, consistent with pneumonia. 2. Mild emphysema. Venous Doppler Study 11/20/24 19:54 IMPRESSION: Patent bilateral lower extremity veins. No evidence of deep venous thrombosis. Chest X-Ray 11/23/24 06:12 Impression: Hazy and interstitial pulmonary disease, right significantly worse than left, is unchanged from prior exam. Correlate for asymmetric pulmonary edema versus pne umonia. Chest CTA 11/24/24 11:00 Impression: No evidence of pulmonary embolus, aortic dissection, or aortic aneurysm. Mild interval improvement in extensive right lung pneumonia/groundglass pulmonary disease. Complete left lower lobe atelectasis. Patchy small airways infection throughout the left upper lobe with extensive tree-in-bud opacities and nodularity similar to prior exam. Probable underlying chronic interstitial change extensively in the right lung base, especially right lower lobe. Mild emphysema. Quality VTE Prophylaxis VTE prophylaxis: mechanical ordered and pharmacologic ordered
[2024-11-25 08:47] LABS: Basophils Absolute Auto 0.1 K/mm3 (0.0-0.1); Basophils Percent Auto 0.7 % (0.2-1.2); Eosinophils Absolute Auto 0.4 K/mm3 (0-0.3); Hematocrit 37.5 % (42.0-52.0); Hemoglobin 11.7 g/dL (14.0-18.0); Immature Granulocyte Absolute 0.13 K/mm3 (0.00-0.031); Immature Granulocyte Percent A 0.9 % (0-0.5); Lymphocytes Absolute Auto 0.95 K/mm3 (0.9-3.2); Lymphocytes Percent Auto 6.7 % (18.3-44.2); Mean Corpuscular HGB Conc 31.2 g/dl (32-36); Mean Corpuscular Hemoglobin 26.1 pg (26-34); Mean Corpuscular Volume 83.7 fl (80-100); Mean Platelet Volume 10.4 fl (7.4-10.4); Monocytes Percent Auto 6.9 % (2.6-8.5); Neutrophils Absolute Auto 11.6 K/mm3 (1.3-6.7); Neutrophils Percent Auto 81.8 % (45.5-73.1); Platelet Count Result 311 k/mm3 (150-375); Red Blood Count 4.48 M/mm3 (4.6-6.20); White Blood Count 14.1 K/mm3 (4.5-10.0)
[2024-11-25] MEDS: ENOXAPARIN 40 MG/0.4 ML SYRINGE SUB-Q (09:55)
[2024-11-25] MEDS: guaiFENesin 12 HR 600 MG TABCR 1200 MG PO ×2 (09:55→22:35)
[2024-11-25] MEDS: levETIRAcetam 500 MG TABLET PO ×2 (09:55→22:35)
[2024-11-25] MEDS: LIDOCAINE 5% PATCH 1 PATCH TOPICAL (09:55)
[2024-11-25] MEDS: PREGABALIN (*CRX) 75 MG CAPSULE 150 MG PO ×2 (09:55→16:36)
[2024-11-25] MEDS: PANTOPRAZOLE 40 MG TABLET PO ×2 (09:56→22:35)
[2024-11-25] MEDS: MIDODRINE HCL 2.5 MG TABLET PO ×2 (09:56→16:34)
[2024-11-25] MEDS: PARoxetine 20 MG TABLET 40 MG BY MOUTH (09:56)
[2024-11-25] MEDS: buPROPion HCL XL (24 HR) 150 MG TABCR 300 MG BY MOUTH (09:56)
[2024-11-25] MEDS: FERROUS SULFATE 325 MG TABLET DR BY MOUTH (09:56)
[2024-11-25] MEDS: CEFEPIME 1 GM/NS 50 ML 1 GM/50 ML BAG IVPB (16:34)
[2024-11-25] MEDS: ACETYLCYSTEINE 20% INHAL SOLN 800 MG/4 ML VIAL 200 MG INHALATION (19:49)
[2024-11-25] MEDS: traZODone HCL 50 MG TABLET 100 MG PO (22:35)
[2024-11-26] VITALS (26 sets, daily range): BP systolic 99–124; BP diastolic 63–71; PULSE 86–116; RESP 16–20; TEMP 36.3–37.1; O2SAT 89–98
[2024-11-26] MEDS: IPRATROPIUM 0.5 MG/ALBUTEROL SULFATE 2.5 MG AMPUL.NEB 3 ML INHALATION ×4 (01:55→20:22)
[2024-11-26] MEDS: ACETYLCYSTEINE 20% INHAL SOLN 800 MG/4 ML VIAL 200 MG INHALATION ×4 (01:56→20:23)
[2024-11-26] MEDS: CEFEPIME 1 GM/NS 50 ML 1 GM/50 ML BAG IVPB ×2 (05:01→15:47)
[2024-11-26] MEDS: oxyCODONE HCL (*CRX) 5 MG TAB IR 10 MG PO ×3 (05:54→21:50)
[2024-11-26 07:54] LABS: Basophils Absolute Auto 0.1 K/mm3 (0.0-0.1); Basophils Percent Auto 0.5 % (0.2-1.2); Eosinophils Absolute Auto 0.2 K/mm3 (0-0.3); Eosinophils Percent Auto 1.2 % (0-4.4); Hematocrit 39.2 % (42.0-52.0); Hemoglobin 12.4 g/dL (14.0-18.0); Immature Granulocyte Absolute 0.14 K/mm3 (0.00-0.031); Immature Granulocyte Percent A 0.7 % (0-0.5); Lymphocytes Absolute Auto 0.86 K/mm3 (0.9-3.2); Lymphocytes Percent Auto 4.3 % (18.3-44.2); Mean Corpuscular HGB Conc 31.6 g/dl (32-36); Mean Corpuscular Hemoglobin 26.2 pg (26-34); Mean Corpuscular Volume 82.7 fl (80-100); Mean Platelet Volume 9.5 fl (7.4-10.4); Monocytes Absolute Auto 1.2 K/mm3 (0.1-0.6); Monocytes Percent Auto 6.2 % (2.6-8.5); Neutrophils Absolute Auto 17.2 K/mm3 (1.3-6.7); Neutrophils Percent Auto 87.1 % (45.5-73.1); Platelet Count Result 333 k/mm3 (150-375); Red Blood Count 4.74 M/mm3 (4.6-6.20); Red Cell Distribution Width 16.2 % (11.5-14.5); White Blood Count 19.8 K/mm3 (4.5-10.0)
[2024-11-26 08:08] LABS: CRP 6.6 mg/dL (<1.0)
[2024-11-26 08:16] LABS: Anisocytosis 1+; Ovalocytes 1+; Platelet Estimate Adequate (Adequate); Schistocytes None Seen
[2024-11-26 08:34] LABS: Alanine Aminotransferase 10 U/L (6-50); Albumin Level 3.2 g/dL (3.5-5.1); Alkaline Phosphatase 79 U/L (38-126); Anion Gap 5 mmol/L (4-12); Aspartate Amino Transferase 19 U/L (17-59); Bilirubin,Total 0.7 mg/dL (0.2-1.3); Blood Urea Nitrogen 21 mg/dL (9-20); Calcium 8.4 mg/dL (8.4-10.2); Carbon Dioxide 32 mmol/L (22-30); Chloride 100 mmol/L (98-107); Estimated CRCL calculation 78 ml/min; Estimated Glomerular Filt Rate > 60; Glucose 100 mg/dL (65-110); Potassium 4.3 mmol/L (3.4-5.0); Sodium 137 mmol/L (137-145)
[2024-11-26] MEDS: levoFLOXacin 750 MG/D5W 150 ML 750 MG/150 ML BAG 100 MG IVPB (09:05)
--- NOTE | 2024-11-26 09:05 | P.PNIM_ITS ---
Progress Note: A&P Assessment and Plan (1) Postobstructive pneumonia: Code(s): J18.9 - Pneumonia, unspecified organism Status: Acute Assessment and Plan: Slowly improving * CTA chest without PE. * Patchy bibasilar ground opacity suspicious for infection as well as left descending bronchus being largely obstructive with postobstructive consolidation noted as well. * Continue Cefepime and Levofloxacin completed. Flagyl discontinued. * Duoneb q 4. * Guaifenesin 1,200 mg PO q 12. * Cornet flutter valve to aid in sputum expectoration. * CPT * Dr. Mosley and Dr. Wilkins Pulmonologists following * Repeat CT scan in 3-6 weeks. * His urine streptococcal antigen from 11/14/2024 returned positive today. * Add PT/OT * Human Metapneumovirus from 11/17/24 is positive. * Echocardiogram EF 55-60%, grade 1 diastolic dysfunction * LE dopplers negative. * Chest CT 11/24 shows improvement * Blood cultures negative. * 11/25 patient placed back on cefepime * 1 L bolus and IVF for hydration * Lactic acid pending (2) Influenza A: Code(s): J10.1 - Influenza due to other identified influenza virus with other respiratory manifestations Status: Acute Assessment and Plan: Improving * Influenza A positive. * Negative for COVID, RSV and Influenza B. * Tamiflu 75 mg PO q 12. Completed * High-flow nasal cannula, she had x-rays as able * Afebrile. (3) Pulmonary edema: Code(s): J81.1 - Chronic pulmonary edema Status: Acute Assessment and Plan: Improving Repeat chest x-ray in the morning slightly improved Echocardiogram 55-60% grade 1 diastolic dysfunction (4) COPD (chronic obstructive pulmonary disease): Qualifiers: COPD type: unspecified COPD Qualified Code(s): J44.9 - Chronic obstructive pulmonary disease, unspecified Code(s): J44.9 - Chronic obstructive pulmonary disease, unspecified Status: Acute Assessment and Plan: * Duoneb q4 * Continue Cefepime and Levofloxacin. Flagyl discontinued. * Guaifenesin 1,200 mg PO q 12. * Pulmonology consulted (5) Hypokalemia: Code(s): E87.6 - Hypokalemia Status: Acute Assessment and Plan: * Improved * Monitor labs. * Replete as needed (6) Back pain: Qualifiers: Back pain laterality: unspecified Back pain location: thoracic back pain Chronicity: unspecified Qualified Code(s): M54.6 - Pain in thoracic spine Code(s): M54.9 - Dorsalgia, unspecified Status: Acute Assessment and Plan: * Oxycodone for pain. * And muscle relaxer Plan full code Time Spent With Patient Time with patient: Greater than 35 minutes Subjective Date/time seen: 11/26/24 09:05 Interval history: 64-year-old male with a past medical history to tobacco abuse, COPD, lung cancer status post right middle lobe lobectomy in 2019, vitamin B12 deficiency, iron deficiency anemia, chronic pain and chronic opioid use, GERD, hypotension who presents with shortness of breath for about a week. Patient's white count jumped to 19.4 this a.m. chest x-ray, UA, blood cultures ordered and lactic, placing patient on cefepime. Review of Systems Review of Systems: All systems reviewed & are unremarkable except as noted in HPI and below Exam Narrative: General: Ill-appearing HEENT: normocephalic, atraumatic. Mucous membranes moist. EOMI, PERRLA, bilateral sclera anicteric, no conjunctival injection. Neck supple without JVD, lymphadenopathy, or bruit. Respiratory: Course to ascultation bilaterally. Cardiovascular: Regular rate and rhythm, normal S1-S2 upon ascultation. No murmurs, rubs, or clicks. PMI is nondisplaced, capillary refill less than 3 second. Abdomen: Soft, round, no pulsatile masses, nondistended and nontender. No rebound, no guarding. No CVA tenderness, no hepatosplenomegaly. Bowel sounds present to all four quadrants. No high pitch or tinkling sounds, resonant to percussion. Extremities: No cyanosis, clubbing, or edema present. Pulses are palpable 2/2. Active ROM to all four extremities. Neuro: Alert and orientated x 4. PERRLA. Cranial nerves 2-12 intact without focal deficit. Skin: Warm, dry, and intact, without rash, erythema, or lesion. Psych: pleasant, cooperative, normal speech, normal affect, no hallucinations, no dysarthia High-flow nasal cannula Objective Data Vital Signs Vital Signs: Vital Signs - 24 hr 11/25/24 09:34 11/25/24 09:38 11/25/24 10:00 Temperature Pulse Rate 98 100 Respiratory Rate 18 Blood Pressure Pulse Oximetry 98 Oxygen Delivery High Flow Therapy with Na Oxygen Flow Rate 65 Fraction of Inspired Oxygen 45 11/25/24 12:00 11/25/24 12:00 11/25/24 12:35 Temperature 98.1 F Pulse Rate 92 98 94 Respiratory Rate 20 18 Blood Pressure 99/63 L Pulse Oximetry 95 Oxygen Delivery Oxygen Flow Rate Fraction of Inspired Oxygen 11/25/24 14:00 11/25/24 15:33 11/25/24 16:00 Temperature 98.7 F Pulse Rate 100 98 102 H Respiratory Rate 18 22 H Blood Pressure 109/71 Pulse Oximetry 94 Oxygen Delivery Oxygen Flow Rate Fraction of Inspired Oxygen 11/25/24 16:00 11/25/24 18:00 11/25/24 19:30 Temperature Pulse Rate 100 99 93 Respiratory Rate 20 Blood Pressure Pulse Oximetry 96 Oxygen Delivery High Flow Therapy with Na Oxygen Flow Rate 45 Fraction of Inspired Oxygen 60 11/25/24 19:50 11/25/24 19:55 11/25/24 19:57 Temperature 97.5 F L Pulse Rate 94 94 93 Respiratory Rate 18 20 Blood Pressure 121/71 Pulse Oximetry 96 96 Oxygen Delivery High Flow Therapy with Na Oxygen Flow Rate 45 Fraction of Inspired Oxygen 60 11/25/24 20:00 11/25/24 20:00 11/25/24 20:12 Temperature Pulse Rate 96 90 96 Respiratory Rate 18 18 Blood Pressure Pulse Oximetry 96 Oxygen Delivery High Flow Therapy with Na Oxygen Flow Rate 40 Fraction of Inspired Oxygen 60 11/25/24 22:00 11/25/24 23:24 11/25/24 23:33 Temperature 97.1 F L Pulse Rate 109 H 103 H 103 H Respiratory Rate 16 16 Blood Pressure 123/69 Pulse Oximetry 95 95 Oxygen Delivery High Flow Therapy with Na Oxygen Flow Rate 40 Fraction of Inspired Oxygen 60 11/26/24 00:00 11/26/24 01:56 11/26/24 02:00 Temperature Pulse Rate 101 H 98 99 Respiratory Rate 18 Blood Pressure Pulse Oximetry Oxygen Delivery Oxygen Flow Rate Fraction of Inspired Oxygen 11/26/24 02:01 11/26/24 02:01 11/26/24 03:55 Temperature 97.3 F L Pulse Rate 94 100 107 H Respiratory Rate 16 20 Blood Pressure 124/71 Pulse Oximetry 96 95 89 L Oxygen Delivery High Flow Therapy with Na High Flow Therapy with Na Oxygen Flow Rate 40 40 Fraction of Inspired Oxygen 60 55 11/26/24 04:00 11/26/24 04:55 11/26/24 06:00 Temperature Pulse Rate 107 H 107 H 111 H Respiratory Rate 20 Blood Pressure Pulse Oximetry 90 Oxygen Delivery High Flow Therapy with Na Oxygen Flow Rate 40 Fraction of Inspired Oxygen 50 11/26/24 06:50 11/26/24 06:50 11/26/24 07:00 Temperature Pulse Rate 103 H 103 H 101 H Respiratory Rate 18 18 18 Blood Pressure Pulse Oximetry 95 Oxygen Delivery High Flow Therapy with Na Oxygen Flow Rate 40 Fraction of Inspired Oxygen 50 11/26/24 08:00 Temperature 98.6 F Pulse Rate 106 H Respiratory Rate 20 Blood Pressure 118/71 Pulse Oximetry 90 Oxygen Delivery Oxygen Flow Rate Fraction of Inspired Oxygen Intake/Output Intake/Output: Intake & Output 11/23/24 11/24/24 11/25/24 11/26/24 23:59 23:59 23:59 23:59 Intake Total 1110 1040 1400 50 Output Total 850 1225 1200 270 Balance 260 -185 200 -220 Meds/Results Medications: Active Medications Generic Name Dose Route Start Last Admin Trade Name Freq PRN Reason Stop Dose Admin Acetaminophen 650 mg 11/13/24 21:48 11/25/24 18:30 Acetaminophen 325 Mg Tablet PO 650 mg Q4H PRN Administration Mild Pain (1-3) or Fever Acetylcysteine 200 mg 11/24/24 10:56 Acetylcysteine 20% Inhal Soln 800 Mg/4 Ml Vial INHALATION Q12HR PRN Congestion Acetylcysteine 200 mg 11/25/24 20:00 11/26/24 06:50 Acetylcysteine 20% Inhal Soln 800 Mg/4 Ml Vial INHALATION 200 mg Q6HRT DANE Administration Albuterol/Ipratropium 3 ml 11/17/24 08:00 11/26/24 06:50 Ipratropium 0.5 Mg/Albuterol Sulfate 2.5 Mg Ampul.Neb 3 Ml INHALATION 3 ml Q4HRT DANE Administration Albuterol/Ipratropium 3 ml 11/23/24 11:56 11/23/24 15:00 Ipratropium 0.5 Mg/Albuterol Sulfate 2.5 Mg Ampul.Neb 3 Ml INHALATION 3 ml Q6HRT PRN Administration Dyspnea Bupropion HCl 300 mg 11/14/24 09:00 11/25/24 09:56 Bupropion Hcl Xl (24 Hr) 150 Mg Tabcr BY MOUTH 300 mg DAILY DANE Administration Enoxaparin Sodium 40 mg 11/21/24 09:00 11/25/24 09:55 Enoxaparin 40 Mg/0.4 Ml Syringe SUB-Q 40 mg DAILY DANE Administration Ferrous Sulfate 325 mg 11/14/24 09:00 11/25/24 09:56 Ferrous Sulfate [address] BY MOUTH 325 mg DAILY DANE Administration Guaifenesin 1,200 mg 11/14/24 10:35 11/25/24 22:35 Guaifenesin 12 Hr 600 Mg Tabcr PO 1,200 mg Q12HR DANE Administration Cefepime HCl 1 gm in 50 mls @ 100 mls/hr 11/25/24 17:00 11/26/24 05:31 Maxipime 1 Gm/Ns 50 Ml IVPB Infused Q12H DANE Infusion Levofloxacin/Dextrose 750 mg in 150 mls @ 100 mls/hr 11/26/24 08:00 Levaquin 750 Mg/D5w 150 Ml IVPB QAM DANE Levetiracetam 500 mg 11/14/24 13:35 11/25/24 22:35 Levetiracetam 500 Mg Tablet PO 500 mg Q12HR DANE Administration Lidocaine 1 patch 11/14/24 09:00 11/25/24 09:55 Lidocaine 5% Patch TOPICAL 1 patch DAILY DANE Administration Midodrine 2.5 mg 11/14/24 09:00 11/25/24 16:34 Midodrine Hcl 2.5 Mg Tablet PO 2.5 mg BID DANE Administration Oxycodone HCl 10 mg 11/22/24 01:00 11/25/24 16:35 Oxycodone Hcl (*Crx) 5 Mg Tab Ir PO 10 mg BID@0100,0500 PRN Administration Breakthrough Pain Oxycodone HCl 10 mg 11/21/24 15:43 11/26/24 05:54 Oxycodone Hcl (*Crx) 5 Mg Tab Ir PO 10 mg Q4HR PRN Administration Pain Rated 4-6 Pantoprazole Sodium 40 mg 11/14/24 09:00 11/25/24 22:35 Pantoprazole 40 Mg Tablet PO 40 mg Q12HR DANE Administration Paroxetine HCl 40 mg 11/14/24 09:00 11/25/24 09:56 Paroxetine 20 Mg Tablet BY MOUTH 40 mg QAM DANE Administration Pregabalin 150 mg 11/14/24 09:00 11/25/24 16:36 Pregabalin (*Crx) 75 Mg Capsule PO 150 mg BID DANE Administration Sodium Chloride 1 spray 11/19/24 22:13 11/20/24 00:02 Saline 0.65% Meir Soln 44 Ml Btl NASAL 1 spray Q6HR PRN Administration Congestion Tizanidine HCl 4 mg 11/14/24 02:03 11/24/24 13:41 Tizanidine Hcl 4 Mg Tablet PO 4 mg TID PRN Administration muscle spasticity Trazodone HCl 100 mg 11/14/24 21:00 11/25/24 22:35 Trazodone Hcl 50 Mg Tablet PO 100 mg QHS DANE Administration Radiology Results: ITS Impressions Chest CT 11/20/24 14:52 IMPRESSION: 1. Diffuse lung disease with worsening on the right and improvement on the left, consistent with pneumonia. 2. Mild emphysema. Venous Doppler Study 11/20/24 19:54 IMPRESSION: Patent bilateral lower extremity veins. No evidence of deep venous thrombosis. Chest CTA 11/24/24 11:00 Impression: No evidence of pulmonary embolus, aortic dissection, or aortic aneurysm. Mild interval improvement in extensive right lung pneumonia/groundglass pulmonary disease. Complete left lower lobe atelectasis. Patchy small airways infection throughout the left upper lobe with extensive tree-in-bud opacities and nodularity similar to prior exam. Probable underlying chronic interstitial change extensively in the right lung base, especially right lower lobe. Mild emphysema. Chest X-Ray 11/26/24 06:21 IMPRESSION: 1. Diffuse lung disease, worsened from 11/23/2024, consistent with pneumonia. Left lung volume loss suggests a component of atelectasis. 2. Worsened small left pleural effusion. 3. Emphysema. Labs Labs: Laboratory Results - last 24 hr 11/26/24 07:45 WBC 19.8 H RBC 4.74 Hgb 12.4 L Hct 39.2 L MCV 82.7 MCH 26.2 MCHC 31.6 L RDW 16.2 H Plt Count 333 MPV 9.5 Immature Gran % (Auto) 0.7 H Neut % (Auto) 87.1 H Lymph % (Auto) 4.3 L [place] % (Auto) 6.2 Eos % (Auto) 1.2 Baso % (Auto) 0.5 Lymph # (Auto) 0.86 L [place] # (Auto) 1.2 H Eos # (Auto) 0.2 Baso # (Auto) 0.1 Abs Immat Gran (auto) 0.14 H Absolute Neuts (auto) 17.2 H Absolute Nucleated RBC 0.000 Band Neutrophils % Not Reportable Nucleated RBC % 0.0 Platelet Estimate Adequate Anisocytosis 1+ Ovalocytes 1+ Schistocytes None seen Sodium 137 Potassium 4.3 Chloride 100 Carbon Dioxide 32 H Anion Gap 5 BUN 21 H Creatinine 0.79 Estim Creat Clear Calc 78 Estimated GFR > 60 Glucose 100 Calcium 8.4 Total Bilirubin 0.7 AST 19 ALT 10 Alkaline Phosphatase 79 C-Reactive Protein 6.6 H Total Protein 7.0 Albumin 3.2 L Quality VTE Prophylaxis VTE prophylaxis: mechanical ordered and pharmacologic ordered
[2024-11-26] MEDS: guaiFENesin 12 HR 600 MG TABCR 1200 MG PO ×2 (09:10→21:50)
[2024-11-26] MEDS: LIDOCAINE 5% PATCH 1 PATCH TOPICAL (09:10)
[2024-11-26] MEDS: FERROUS SULFATE 325 MG TABLET DR BY MOUTH (09:10)
[2024-11-26] MEDS: PREGABALIN (*CRX) 75 MG CAPSULE 150 MG PO ×2 (09:10→18:19)
[2024-11-26] MEDS: buPROPion HCL XL (24 HR) 150 MG TABCR 300 MG BY MOUTH (09:10)
[2024-11-26] MEDS: ENOXAPARIN 40 MG/0.4 ML SYRINGE SUB-Q (09:10)
[2024-11-26] MEDS: levETIRAcetam 500 MG TABLET PO ×2 (09:11→21:50)
[2024-11-26] MEDS: MIDODRINE HCL 2.5 MG TABLET PO ×2 (09:11→18:19)
[2024-11-26] MEDS: PANTOPRAZOLE 40 MG TABLET PO ×2 (09:11→21:50)
[2024-11-26] MEDS: PARoxetine 20 MG TABLET 40 MG BY MOUTH (09:11)
[2024-11-26] MEDS: TIZANIDINE HCL 4 MG TABLET PO ×2 (09:14→18:19)
[2024-11-26] MEDS: ACETAMINOPHEN 325 MG TABLET 650 MG PO ×2 (09:14→18:19)
[2024-11-26 10:58] LABS: MRSA (PCR) NOT DETECTED (NOT DETECTE)
[2024-11-26] MEDS: SODIUM CHLORIDE 0.9% IV 1,000 ML 999 ML IV CONT (15:44)
--- NOTE | 2024-11-26 17:45 | PM.PNPUL ---
Progress Note: A&P Assessment and Plan (1) Respiratory failure with hypoxia and hypercapnia: Code(s): J96.91 - Respiratory failure, unspecified with hypoxia; J96.92 - Respiratory failure, unspecified with hypercapnia Status: Acute Assessment and Plan: This 64-year-old male patient, with a medical history of COPD and previous lung resection for lung cancer, presented with acute respiratory failure due to a lower respiratory tract infection. Testing revealed positive results for influenza A and human metapneumovirus (hMPV), and a urine test was positive for pneumococcal antigen, indicating a pneumonia likely caused by multiple infectious agents. The patient has been treated for influenza A and is currently receiving three antibiotics to address potential bacterial coinfection. Although his gas exchange has improved in the past few days, he remains on high-flow oxygen via nasal cannula with high FiO2. He continues to experience shortness of breath but does not have a fever or signs of sepsis. He has a productive cough with dark yellow sputum. Given the positive respiratory panel for hMPV and the slow response to antibiotics, it is possible that hMPV is contributing significantly to his pneumonia. Typically, pneumococcal pneumonia responds to antibiotics within 48 hours. Severe pneumonia due to hMPV has been documented in patients with underlying conditions such as COPD or compromised immune systems. Severe pneumonia related to influenza A is is more likely in this setting. Chest CT done 2 days ago showed left lung atelectasis and few small infiltrates in left upper lobe. There was interim clearing of right lung pneumonia. On today's chest x-ray there is almost whiteout of the left lung. On clinical exam the patient has no significant shortness of breath. He sounds a little congested but unable to cough up phlegm. He remains on FiO2 of 50% with saturation around 93%. He feels weak and he is tachycardic; physical exam shows anew crackles on left consistent with pneumonia. On last testing the WBC was greater than 19K. The patient has been on levofloxacin and cefepime for nosocomial pneumonia. MRSA PCR negative. CRP higher today. Plan: Patient with new severe pneumonia on left most likely nosocomial pneumonia. The patient does not appear to be septic and seems to be tolerating the pneumonia well. According to the family who was present at the bedside he ate well today. Will add vancomycin to current regimen. I discussed the case with the hospitalist earlier today and the new developments were also discussed at length with the patient's family, and 2 daughters. I indicated to them that he has nosocomial pneumonia and his condition at this point is stable but he may require transfer to the intensive care unit if his breathing worsens. Family verbalized understanding. (2) History of lung cancer: Code(s): Z85.118 - Personal history of other malignant neoplasm of bronchus and lung Status: Acute (3) Chronic narcotic use: Code(s): F11.90 - Opioid use, unspecified, uncomplicated Status: Acute (4) Influenza A: Code(s): J10.1 - Influenza due to other identified influenza virus with other respiratory manifestations Status: Acute (5) COPD (chronic obstructive pulmonary disease): Qualifiers: COPD type: unspecified COPD Qualified Code(s): J44.9 - Chronic obstructive pulmonary disease, unspecified Code(s): J44.9 - Chronic obstructive pulmonary disease, unspecified Status: Acute Subjective Date/time seen: 11/26/24 17:45 Interval history: Feeling weak tired today. No fever chills or hemoptysis. Shortness of breath about unchanged. He remains on more or less same FiO2 over the last 24 hours. Started antibiotic therapy yesterday for nosocomial pneumonia. Review of Systems Review of Systems: All systems reviewed & are unremarkable except as noted in HPI and below (HPI and below) Exam Narrative: GENERAL APPEARANCE: Well developed, well nourished, alert and cooperative, appears to be in mild respiratory distress while on high-flow nasal cannula SKIN: Inspection of the skin reveals no rashes, ulcerations or petechiae. HEENT: Sclerae anicteric and conjunctivae pink and moist. Extraocular movements were intact and pupils were equal, round. Moist oral mucosa. NECK: Supple. There was no thyroid enlargement, and no tenderness, or masses were felt. CHEST: Normal AP diameter and normal contour without any kyphoscoliosis. LUNGS: Crackles left lung posteriorly more than before also crackles right lung base. CARDIAC: There was a regular rate and rhythm without any murmurs, gallops, rubs. ABDOMEN: Soft and nontender with normal bowel sounds. There was no organomegaly. LYMPH NODES: No lymphadenopathy was appreciated in the neck. EXTREMITIES: No cyanosis, clubbing or edema. NEUROLOGIC: Alert and oriented x 3. Normal affect. Objective Data Vital Signs Vital Signs: Vital Signs - 24 hr 11/25/24 18:00 11/25/24 19:30 11/25/24 19:50 Temperature Pulse Rate 99 93 94 Respiratory Rate 20 18 Blood Pressure Pulse Oximetry 96 Oxygen Delivery High Flow Therapy with Na Oxygen Flow Rate 45 Fraction of Inspired Oxygen 60 11/25/24 19:55 11/25/24 19:57 11/25/24 20:00 Temperature 36.4 C L Pulse Rate 94 93 96 Respiratory Rate 20 18 Blood Pressure 121/71 Pulse Oximetry 96 96 96 Oxygen Delivery High Flow Therapy with Na High Flow Therapy with Na Oxygen Flow Rate 45 40 Fraction of Inspired Oxygen 60 60 11/25/24 20:00 11/25/24 20:12 11/25/24 22:00 Temperature Pulse Rate 90 96 109 H Respiratory Rate 18 Blood Pressure Pulse Oximetry Oxygen Delivery Oxygen Flow Rate Fraction of Inspired Oxygen 11/25/24 23:24 11/25/24 23:33 11/26/24 00:00 Temperature 36.2 C L Pulse Rate 103 H 103 H 101 H Respiratory Rate 16 16 Blood Pressure 123/69 Pulse Oximetry 95 95 Oxygen Delivery High Flow Therapy with Na Oxygen Flow Rate 40 Fraction of Inspired Oxygen 60 11/26/24 01:56 11/26/24 02:00 11/26/24 02:01 Temperature Pulse Rate 98 99 94 Respiratory Rate 18 Blood Pressure Pulse Oximetry 96 Oxygen Delivery High Flow Therapy with Na Oxygen Flow Rate 40 Fraction of Inspired Oxygen 60 11/26/24 02:01 11/26/24 03:55 11/26/24 04:00 Temperature 36.3 C L Pulse Rate 100 107 H 107 H Respiratory Rate 16 20 Blood Pressure 124/71 Pulse Oximetry 95 89 L Oxygen Delivery High Flow Therapy with Na Oxygen Flow Rate 40 Fraction of Inspired Oxygen 55 11/26/24 04:55 11/26/24 06:00 11/26/24 06:50 Temperature Pulse Rate 107 H 111 H 103 H Respiratory Rate 20 18 Blood Pressure Pulse Oximetry 90 95 Oxygen Delivery High Flow Therapy with Na High Flow Therapy with Na Oxygen Flow Rate 40 40 Fraction of Inspired Oxygen 50 50 11/26/24 06:50 11/26/24 07:00 11/26/24 08:00 Temperature 37.0 C Pulse Rate 103 H 101 H 106 H Respiratory Rate 18 18 20 Blood Pressure 118/71 Pulse Oximetry 90 Oxygen Delivery Oxygen Flow Rate Fraction of Inspired Oxygen 11/26/24 12:00 11/26/24 12:50 11/26/24 12:50 Temperature 37.1 C Pulse Rate 95 112 H 112 H Respiratory Rate 18 20 20 Blood Pressure 99/63 L Pulse Oximetry 98 96 Oxygen Delivery High Flow Therapy with Na Oxygen Flow Rate 40 Fraction of Inspired Oxygen 50 11/26/24 13:00 11/26/24 16:00 Temperature 37.0 C Pulse Rate 108 H 110 H Respiratory Rate 18 20 Blood Pressure 113/68 Pulse Oximetry 95 Oxygen Delivery Oxygen Flow Rate Fraction of Inspired Oxygen Intake/Output Intake/Output: Intake & Output 11/23/24 11/24/24 11/25/24 11/26/24 23:59 23:59 23:59 23:59 Intake Total 1110 1040 1400 410 Output Total 850 1225 1200 470 Balance 260 -185 200 -60 Meds/Results Medications: Active Medications Generic Name Dose Route Start Last Admin Trade Name Freq PRN Reason Stop Dose Admin Acetaminophen 650 mg 11/13/24 21:48 11/26/24 09:14 Acetaminophen 325 Mg Tablet PO 650 mg Q4H PRN Administration Mild Pain (1-3) or Fever Acetylcysteine 200 mg 11/24/24 10:56 Acetylcysteine 20% Inhal Soln 800 Mg/4 Ml Vial INHALATION Q12HR PRN Congestion Acetylcysteine 200 mg 11/25/24 20:00 11/26/24 12:54 Acetylcysteine 20% Inhal Soln 800 Mg/4 Ml Vial INHALATION 200 mg Q6HRT DANE Administration Albuterol/Ipratropium 3 ml 11/17/24 08:00 11/26/24 12:54 Ipratropium 0.5 Mg/Albuterol Sulfate 2.5 Mg Ampul.Neb 3 Ml INHALATION 3 ml Q4HRT DANE Administration Albuterol/Ipratropium 3 ml 11/23/24 11:56 11/23/24 15:00 Ipratropium 0.5 Mg/Albuterol Sulfate 2.5 Mg Ampul.Neb 3 Ml INHALATION 3 ml Q6HRT PRN Administration Dyspnea Bupropion HCl 300 mg 11/14/24 09:00 11/26/24 09:10 Bupropion Hcl Xl (24 Hr) 150 Mg Tabcr BY MOUTH 300 mg DAILY DANE Administration Enoxaparin Sodium 40 mg 11/21/24 09:00 11/26/24 09:10 Enoxaparin 40 Mg/0.4 Ml Syringe SUB-Q 40 mg DAILY DANE Administration Ferrous Sulfate 325 mg 11/14/24 09:00 11/26/24 09:10 Ferrous Sulfate [address] BY MOUTH 325 mg DAILY DANE Administration Guaifenesin 1,200 mg 11/14/24 10:35 11/26/24 09:10 Guaifenesin 12 Hr 600 Mg Tabcr PO 1,200 mg Q12HR DANE Administration Cefepime HCl 1 gm in 50 mls @ 100 mls/hr 11/25/24 17:00 11/26/24 15:47 Maxipime 1 Gm/Ns 50 Ml IVPB 100 mls/hr Q12H DANE Administration Levofloxacin/Dextrose 750 mg in 150 mls @ 100 mls/hr 11/26/24 08:00 11/26/24 09:05 Levaquin 750 Mg/D5w 150 Ml IVPB 100 mls/hr QAM DANE Administration Levetiracetam 500 mg 11/14/24 13:35 11/26/24 09:11 Levetiracetam 500 Mg Tablet PO 500 mg Q12HR DANE Administration Lidocaine 1 patch 11/14/24 09:00 11/26/24 09:10 Lidocaine 5% Patch TOPICAL 1 patch DAILY DANE Administration Midodrine 2.5 mg 11/14/24 09:00 11/26/24 09:11 Midodrine Hcl 2.5 Mg Tablet PO 2.5 mg BID DANE Administration Oxycodone HCl 10 mg 11/22/24 01:00 11/26/24 12:48 Oxycodone Hcl (*Crx) 5 Mg Tab Ir PO 10 mg BID@0100,0500 PRN Administration Breakthrough Pain Oxycodone HCl 10 mg 11/21/24 15:43 11/26/24 05:54 Oxycodone Hcl (*Crx) 5 Mg Tab Ir PO 10 mg Q4HR PRN Administration Pain Rated 4-6 Pantoprazole Sodium 40 mg 11/14/24 09:00 11/26/24 09:11 Pantoprazole 40 Mg Tablet PO 40 mg Q12HR DANE Administration Paroxetine HCl 40 mg 11/14/24 09:00 11/26/24 09:11 Paroxetine 20 Mg Tablet BY MOUTH 40 mg QAM DANE Administration Pregabalin 150 mg 11/14/24 09:00 11/26/24 09:10 Pregabalin (*Crx) 75 Mg Capsule PO 150 mg BID DANE Administration Sodium Chloride 1 spray 11/19/24 22:13 11/20/24 00:02 Saline 0.65% Meir Soln 44 Ml Btl NASAL 1 spray Q6HR PRN Administration Congestion Tizanidine HCl 4 mg 11/14/24 02:03 11/26/24 09:14 Tizanidine Hcl 4 Mg Tablet PO 4 mg TID PRN Administration muscle spasticity Trazodone HCl 100 mg 11/14/24 21:00 11/25/24 22:35 Trazodone Hcl 50 Mg Tablet PO 100 mg QHS DANE Administration Radiology Results: ITS Impressions Chest CT 11/20/24 14:52 IMPRESSION: 1. Diffuse lung disease with worsening on the right and improvement on the left, consistent with pneumonia. 2. Mild emphysema. Venous Doppler Study 11/20/24 19:54 IMPRESSION: Patent bilateral lower extremity veins. No evidence of deep venous thrombosis. Chest CTA 11/24/24 11:00 Impression: No evidence of pulmonary embolus, aortic dissection, or aortic aneurysm. Mild interval improvement in extensive right lung pneumonia/groundglass pulmonary disease. Complete left lower lobe atelectasis. Patchy small airways infection throughout the left upper lobe with extensive tree-in-bud opacities and nodularity similar to prior exam. Probable underlying chronic interstitial change extensively in the right lung base, especially right lower lobe. Mild emphysema. Chest X-Ray 11/26/24 06:21 IMPRESSION: 1. Diffuse lung disease, worsened from 11/23/2024, consistent with pneumonia. Left lung volume loss suggests a component of atelectasis. 2. Worsened small left pleural effusion. 3. Emphysema. Labs Labs: Laboratory Results - last 24 hr 11/26/24 11/26/24 11/26/24 07:45 09:20 14:36 WBC 19.8 H RBC 4.74 Hgb 12.4 L Hct 39.2 L MCV 82.7 MCH 26.2 MCHC 31.6 L RDW 16.2 H Plt Count 333 MPV 9.5 Immature Gran % (Auto) 0.7 H Neut % (Auto) 87.1 H Lymph % (Auto) 4.3 L [place] % (Auto) 6.2 Eos % (Auto) 1.2 Baso % (Auto) 0.5 Lymph # (Auto) 0.86 L [place] # (Auto) 1.2 H Eos # (Auto) 0.2 Baso # (Auto) 0.1 Abs Immat Gran (auto) 0.14 H Absolute Neuts (auto) 17.2 H Absolute Nucleated RBC 0.000 Band Neutrophils % Not Reportable Nucleated RBC % 0.0 Platelet Estimate Adequate Anisocytosis 1+ Ovalocytes 1+ Schistocytes None seen Sodium 137 Potassium 4.3 Chloride 100 Carbon Dioxide 32 H Anion Gap 5 BUN 21 H Creatinine 0.79 Estim Creat Clear Calc 78 Estimated GFR > 60 Glucose 100 Lactic Acid 1.0 Calcium 8.4 Total Bilirubin 0.7 AST 19 ALT 10 Alkaline Phosphatase 79 C-Reactive Protein 6.6 H Total Protein 7.0 Albumin 3.2 L Nasal MRSA (PCR) Not detected
[2024-11-26] MEDS: VANCOMYCIN 1,000 MG/NS 250 ML 1,000 MG/250 ML BAG 250 MG IVPB (18:20)
[2024-11-26] MEDS: traZODone HCL 50 MG TABLET 100 MG PO (21:50)
[2024-11-27] VITALS (25 sets, daily range): BP systolic 98–119; BP diastolic 62–77; PULSE 85–112; RESP 18–28; TEMP 36.5–36.9; O2SAT 91–98
[2024-11-27] MEDS: IPRATROPIUM 0.5 MG/ALBUTEROL SULFATE 2.5 MG AMPUL.NEB 3 ML INHALATION ×4 (00:52→20:40)
[2024-11-27] MEDS: CEFEPIME 1 GM/NS 50 ML 1 GM/50 ML BAG IVPB (04:26)
[2024-11-27] MEDS: oxyCODONE HCL (*CRX) 5 MG TAB IR 10 MG PO ×5 (04:27→22:17)
[2024-11-27] MEDS: ACETYLCYSTEINE 20% INHAL SOLN 800 MG/4 ML VIAL 200 MG INHALATION ×4 (04:37→20:40)
[2024-11-27 05:51] LABS: Hematocrit 36.3 % (42.0-52.0); Hemoglobin 11.4 g/dL (14.0-18.0); Mean Corpuscular HGB Conc 31.4 g/dl (32-36); Mean Corpuscular Hemoglobin 26.3 pg (26-34); Mean Corpuscular Volume 83.8 fl (80-100); Mean Platelet Volume 9.9 fl (7.4-10.4); Platelet Count Result 308 k/mm3 (150-375); Red Blood Count 4.33 M/mm3 (4.6-6.20); Red Cell Distribution Width 16.2 % (11.5-14.5); White Blood Count 15.4 K/mm3 (4.5-10.0)
[2024-11-27 06:07] LABS: Anion Gap 4 mmol/L (4-12); Blood Urea Nitrogen 23 mg/dL (9-20); Calcium 8.7 mg/dL (8.4-10.2); Carbon Dioxide 34 mmol/L (22-30); Chloride 102 mmol/L (98-107); Estimated CRCL calculation 70 ml/min; Estimated Glomerular Filt Rate > 60; Glucose 94 mg/dL (65-110); Potassium 4.3 mmol/L (3.4-5.0); Sodium 140 mmol/L (137-145)
--- NOTE | 2024-11-27 09:02 | PCNWS ---
Weekly nutritional screen. Patient is tolerating current diet with adequate intake, 0-100%. Pt eats 2 meals per day at baseline. Ensure Enlive TID (350 kcal, 20 g protein.) No weight loss reported. No nutritional needs at this time.
--- NOTE | 2024-11-27 09:34 | P.PNIM_ITS ---
Progress Note: A&P Assessment and Plan (1) Postobstructive pneumonia: Code(s): J18.9 - Pneumonia, unspecified organism Status: Acute Assessment and Plan: Slowly improving * CTA chest without PE. * Patchy bibasilar ground opacity suspicious for infection as well as left descending bronchus being largely obstructive with postobstructive consolidation noted as well. * Continue Cefepime and Levofloxacin completed 11/22. Flagyl discontinued. * Duoneb q 4. * Guaifenesin 1,200 mg PO q 12. * Cornet flutter valve to aid in sputum expectoration. * CPT * Dr. Mosley and Dr. Wilkins Pulmonologists following * Repeat CT scan in 3-6 weeks. * His urine streptococcal antigen from 11/14/2024 returned positive today. * Add PT/OT * Human Metapneumovirus from 11/17/24 is positive. * Echocardiogram EF 55-60%, grade 1 diastolic dysfunction * LE dopplers negative. * Chest CT 11/24 shows improvement * Blood cultures negative. * 11/25 patient placed back on cefepime and levofloxacin (2) Influenza A: Code(s): J10.1 - Influenza due to other identified influenza virus with other respiratory manifestations Status: Acute Assessment and Plan: Improving * Influenza A positive. * Negative for COVID, RSV and Influenza B. * Tamiflu 75 mg PO q 12. Completed * High-flow nasal cannula, she had x-rays as able * Afebrile. (3) Pulmonary edema: Code(s): J81.1 - Chronic pulmonary edema Status: Acute Assessment and Plan: Improving Repeat chest x-ray in the morning slightly improved Echocardiogram 55-60% grade 1 diastolic dysfunction (4) COPD (chronic obstructive pulmonary disease): Qualifiers: COPD type: unspecified COPD Qualified Code(s): J44.9 - Chronic obstructive pulmonary disease, unspecified Code(s): J44.9 - Chronic obstructive pulmonary disease, unspecified Status: Acute Assessment and Plan: * Duoneb q4 * Continue Cefepime and Levofloxacin. Flagyl discontinued. * Guaifenesin 1,200 mg PO q 12. * Pulmonology consulted (5) Hypokalemia: Code(s): E87.6 - Hypokalemia Status: Acute Assessment and Plan: * Improved * Monitor labs. * Replete as needed (6) Back pain: Qualifiers: Back pain laterality: unspecified Back pain location: thoracic back pain Chronicity: unspecified Qualified Code(s): M54.6 - Pain in thoracic spine Code(s): M54.9 - Dorsalgia, unspecified Status: Acute Assessment and Plan: * Oxycodone for pain. * And muscle relaxer (7) Nodule of right lung: Code(s): R91.1 - Solitary pulmonary nodule Status: Acute Assessment and Plan: 11/27 CT 14 mm nodule in right lung lower lobe suspicious for primary bronchogenic carcinoma or metastatic disease. Not seen in previous CTs Pulmonology on board Plan full code Time Spent With Patient Time with patient: Greater than 35 minutes Subjective Date/time seen: 11/27/24 09:34 Interval history: 64-year-old male with a past medical history to tobacco abuse, COPD, lung cancer status post right middle lobe lobectomy in 2019, vitamin B12 deficiency, iron deficiency anemia, chronic pain and chronic opioid use, GERD, hypotension who presents with shortness of breath for about a week found to have influenza a pneumonia. Restarted antibiotic therapy on 11/25/24 for nosocomial pneumonia. Leukocytosis improving. Patient has decreased oxygen demands today. Repeat chest x-ray shows widespread pneumonia left side worse than right. And a left mainstem bronchus mucus plug Review of Systems Review of Systems: All systems reviewed & are unremarkable except as noted in HPI and below Exam Narrative: General: Ill-appearing HEENT: normocephalic, atraumatic. Mucous membranes moist. EOMI, PERRLA, bi lateral sclera anicteric, no conjunctival injection. Neck supple without JVD, lymphadenopathy, or bruit. Respiratory: Diminished to ascultation bilaterally. Cardiovascular: Regular rate and rhythm, normal S1-S2 upon ascultation. No murmurs, rubs, or clicks. PMI is nondisplaced, capillary refill less than 3 second. Abdomen: Soft, round, no pulsatile masses, nondistended and nontender. No reboun d, no guarding. No CVA tenderness, no hepatosplenomegaly. Bowel sounds present to all four quadrants. No high pitch or tinkling sounds, resonant to percussion. Extremities: No cyanosis, clubbing, or edema present. Pulses are palpable 2/2. Active ROM to all four extremities. Neuro: Alert and orientated x 4. PERRLA. Cranial nerves 2-12 intact without focal deficit. Skin: Warm, dry, and intact, without rash, erythema, or lesion. Psych: pleasant, cooperative, normal speech, normal affect, no hallucinations, no dysarthia High-flow nasal cannula Objective Data Vital Signs Vital Signs: Vital Signs - 24 hr 11/26/24 10:00 11/26/24 12:00 11/26/24 12:00 Temperature 98.7 F Pulse Rate 110 H 95 93 Respiratory Rate 18 Blood Pressure 99/63 L Pulse Oximetry 98 Oxygen Delivery Oxygen Flow Rate Fraction of Inspired Oxygen 11/26/24 12:50 11/26/24 12:50 11/26/24 13:00 Temperature Pulse Rate 112 H 112 H 108 H Respiratory Rate 20 20 18 Blood Pressure Pulse Oximetry 96 Oxygen Delivery High Flow Therapy with Na Oxygen Flow Rate 40 Fraction of Inspired Oxygen 50 11/26/24 14:00 11/26/24 16:00 11/26/24 16:00 Temperature 98.6 F Pulse Rate 97 110 H 113 H Respiratory Rate 20 Blood Pressure 113/68 Pulse Oximetry 95 Oxygen Delivery Oxygen Flow Rate Fraction of Inspired Oxygen 11/26/24 16:00 11/26/24 18:00 11/26/24 20:00 Temperature Pulse Rate 113 H 115 H 95 Respiratory Rate Blood Pressure Pulse Oximetry Oxygen Delivery Oxygen Flow Rate Fraction of Inspired Oxygen 11/26/24 20:24 11/26/24 20:25 11/26/24 20:37 Temperature Pulse Rate 103 H 103 H 99 Respiratory Rate 18 20 18 Blood Pressure Pulse Oximetry 96 Oxygen Delivery High Flow Therapy with Na Oxygen Flow Rate 40 Fraction of Inspired Oxygen 50 11/26/24 22:00 11/26/24 22:10 11/27/24 00:00 Temperature 98.3 F Pulse Rate 86 87 91 Respiratory Rate 20 Blood Pressure 103/70 Pulse Oximetry 97 Oxygen Delivery Oxygen Flow Rate Fraction of Inspired Oxygen 11/27/24 00:07 11/27/24 00:50 11/27/24 01:02 Temperature 98.3 F Pulse Rate 91 112 H 103 H Respiratory Rate 20 18 18 Blood Pressure 98/72 L Pulse Oximetry 93 Oxygen Delivery Oxygen Flow Rate Fraction of Inspired Oxygen 11/27/24 02:00 11/27/24 04:00 11/27/24 04:03 Temperature 98.5 F Pulse Rate 91 95 90 Respiratory Rate 22 H Blood Pressure 117/70 Pulse Oximetry 94 Oxygen Delivery Oxygen Flow Rate Fraction of Inspired Oxygen 11/27/24 04:39 11/27/24 04:52 11/27/24 05:54 Temperature Pulse Rate 103 H 97 90 Respiratory Rate 18 18 Blood Pressure Pulse Oximetry Oxygen Delivery Oxygen Flow Rate Fraction of Inspired Oxygen 11/27/24 07:58 11/27/24 07:59 11/27/24 08:00 Temperature 98.4 F Pulse Rate 91 91 85 Respiratory Rate 20 18 28 H Blood Pressure 118/65 Pulse Oximetry 96 98 Oxygen Delivery High Flow Therapy with Na Oxygen Flow Rate 34 Fraction of Inspired Oxygen 45 Intake/Output Intake/Output: Intake & Output 11/24/24 11/25/24 11/26/24 11/27/24 23:59 23:59 23:59 23:59 Intake Total 1040 1400 3440 250 Output Total 1225 1200 870 600 Balance -304 059 7161 -350 Meds/Results Medications: Active Medications Generic Name Dose Route Start Last Admin Trade Name Freq PRN Reason Stop Dose Admin Acetaminophen 650 mg 11/13/24 21:48 11/26/24 18:19 Acetaminophen 325 Mg Tablet PO 650 mg Q4H PRN Administration Mild Pain (1-3) or Fever Acetylcysteine 200 mg 11/24/24 10:56 Acetylcysteine 20% Inhal Soln 800 Mg/4 Ml Vial INHALATION Q12HR PRN Congestion Acetylcysteine 200 mg 11/25/24 20:00 11/27/24 07:57 Acetylcysteine 20% Inhal Soln 800 Mg/4 Ml Vial INHALATION 200 mg Q6HRT DANE Administration Albuterol/Ipratropium 3 ml 11/17/24 08:00 11/27/24 07:57 Ipratropium 0.5 Mg/Albuterol Sulfate 2.5 Mg Ampul.Neb 3 Ml INHALATION 3 ml Q4HRT DANE Administration Albuterol/Ipratropium 3 ml 11/23/24 11:56 11/23/24 15:00 Ipratropium 0.5 Mg/Albuterol Sulfate 2.5 Mg Ampul.Neb 3 Ml INHALATION 3 ml Q6HRT PRN Administration Dyspnea Bupropion HCl 300 mg 11/14/24 09:00 11/26/24 09:10 Bupropion Hcl Xl (24 Hr) 150 Mg Tabcr BY MOUTH 300 mg DAILY DANE Administration Enoxaparin Sodium 40 mg 11/21/24 09:00 11/26/24 09:10 Enoxaparin 40 Mg/0.4 Ml Syringe SUB-Q 40 mg DAILY DANE Administration Ferrous Sulfate 325 mg 11/14/24 09:00 11/26/24 09:10 Ferrous Sulfate [address] BY MOUTH 325 mg DAILY DANE Administration Guaifenesin 1,200 mg 11/14/24 10:35 11/26/24 21:50 Guaifenesin 12 Hr 600 Mg Tabcr PO 1,200 mg Q12HR DANE Administration Cefepime HCl 1 gm in 50 mls @ 100 mls/hr 11/25/24 17:00 11/27/24 04:56 Maxipime 1 Gm/Ns 50 Ml IVPB Infused Q12H DANE Infusion Levofloxacin/Dextrose 750 mg in 150 mls @ 100 mls/hr 11/26/24 08:00 11/26/24 19:00 Levaquin 750 Mg/D5w 150 Ml IVPB Infused QAM DANE Infusion Levetiracetam 500 mg 11/14/24 13:35 11/26/24 21:50 Levetiracetam 500 Mg Tablet PO 500 mg Q12HR DANE Administration Lidocaine 1 patch 11/14/24 09:00 11/26/24 09:10 Lidocaine 5% Patch TOPICAL 1 patch DAILY DANE Administration Midodrine 2.5 mg 11/14/24 09:00 11/26/24 18:19 Midodrine Hcl 2.5 Mg Tablet PO 2.5 mg BID DANE Administration Oxycodone HCl 10 mg 11/22/24 01:00 11/27/24 04:27 Oxycodone Hcl (*Crx) 5 Mg Tab Ir PO 10 mg BID@0100,0500 PRN Administration Breakthrough Pain Oxycodone HCl 10 mg 11/21/24 15:43 11/26/24 21:50 Oxycodone Hcl (*Crx) 5 Mg Tab Ir PO 10 mg Q4HR PRN Administration Pain Rated 4-6 Pantoprazole Sodium 40 mg 11/14/24 09:00 11/26/24 21:50 Pantoprazole 40 Mg Tablet PO 40 mg Q12HR DANE Administration Paroxetine HCl 40 mg 11/14/24 09:00 11/26/24 09:11 Paroxetine 20 Mg Tablet BY MOUTH 40 mg QAM DANE Administration Pregabalin 150 mg 11/14/24 09:00 11/26/24 18:19 Pregabalin (*Crx) 75 Mg Capsule PO 150 mg BID DANE Administration Sodium Chloride 1 spray 11/19/24 22:13 11/20/24 00:02 Saline 0.65% Meir Soln 44 Ml Btl NASAL 1 spray Q6HR PRN Administration Congestion Tizanidine HCl 4 mg 11/14/24 02:03 11/26/24 18:19 Tizanidine Hcl 4 Mg Tablet PO 4 mg TID PRN Administration muscle spasticity Trazodone HCl 100 mg 11/14/24 21:00 11/26/24 21:50 Trazodone Hcl 50 Mg Tablet PO 100 mg QHS DANE Administration Radiology Results: ITS Impressions Chest CT 11/20/24 14:52 IMPRESSION: 1. Diffuse lung disease with worsening on the right and improvement on the left, consistent with pneumonia. 2. Mild emphysema. Venous Doppler Study 11/20/24 19:54 IMPRESSION: Patent bilateral lower extremity veins. No evidence of deep venous thrombosis. Chest CTA 11/24/24 11:00 Impression: No evidence of pulmonary embolus, aortic dissection, or aortic aneurysm. Mild interval improvement in extensive right lung pneumonia/groundglass pulmonary disease. Complete left lower lobe atelectasis. Patchy small airways infection throughout the left upper lobe with extensive tree-in-bud opacities and nodularity similar to prior exam. Probable underlying chronic interstitial change extensively in the right lung base, especially right lower lobe. Mild emphysema. Chest X-Ray 11/26/24 06:21 IMPRESSION: 1. Diffuse lung disease, worsened from 11/23/2024, consistent with pneumonia. Left lung volume loss suggests a component of atelectasis. 2. Worsened small left pleural effusion. 3. Emphysema. Labs Labs: Laboratory Results - last 24 hr 11/26/24 11/26/24 11/27/24 09:20 14:36 05:18 WBC 15.4 H RBC 4.33 L Hgb 11.4 L Hct 36.3 L MCV 83.8 MCH 26.3 MCHC 31.4 L RDW 16.2 H Plt Count 308 MPV 9.9 Sodium 140 Potassium 4.3 Chloride 102 Carbon Dioxide 34 H Anion Gap 4 BUN 23 H Creatinine 0.89 Estim Creat Clear Calc 70 Estimated GFR > 60 Glucose 94 Lactic Acid 1.0 Calcium 8.7 Nasal MRSA (PCR) Not detected Quality VTE Prophylaxis VTE prophylaxis: mechanical ordered and pharmacologic ordered
[2024-11-27] MEDS: LIDOCAINE 5% PATCH 1 PATCH TOPICAL (09:52)
[2024-11-27] MEDS: ENOXAPARIN 40 MG/0.4 ML SYRINGE SUB-Q (09:53)
[2024-11-27] MEDS: buPROPion HCL XL (24 HR) 150 MG TABCR 300 MG BY MOUTH (09:53)
[2024-11-27] MEDS: guaiFENesin 12 HR 600 MG TABCR 1200 MG PO ×2 (09:53→20:33)
[2024-11-27] MEDS: MIDODRINE HCL 2.5 MG TABLET PO ×2 (09:53→18:25)
[2024-11-27] MEDS: PANTOPRAZOLE 40 MG TABLET PO ×2 (09:53→20:33)
[2024-11-27] MEDS: FERROUS SULFATE 325 MG TABLET DR BY MOUTH (09:53)
[2024-11-27] MEDS: PARoxetine 20 MG TABLET 40 MG BY MOUTH (09:53)
[2024-11-27] MEDS: PREGABALIN (*CRX) 75 MG CAPSULE 150 MG PO ×2 (09:53→18:25)
[2024-11-27] MEDS: levETIRAcetam 500 MG TABLET PO ×2 (09:53→20:33)
--- NOTE | 2024-11-27 10:00 | P.PNPL_ITS ---
Progress Note: A&P Assessment and Plan (1) Respiratory failure with hypoxia and hypercapnia: Code(s): J96.91 - Respiratory failure, unspecified with hypoxia; J96.92 - Respiratory failure, unspecified with hypercapnia Status: Acute Assessment and Plan: This 64-year-old male patient, with a medical history of COPD and previous lung resection for lung cancer, presented with acute respiratory failure due to a l ower respiratory tract infection. Testing revealed positive results for influenza A and human metapneumovirus (hMPV), and a urine test was positive for pneumococcal antigen, indicating a pneumonia likely caused by multiple infectious agents. The patient has been treated for influenza A and is currently receiving three antibiotics to address potential bacterial coinfection. Although his gas exchange has improved in the past few days, he remains on high-flow oxygen via nasal cannula with high FiO2. He continues to experience shortness of breath but does not have a fever or signs of sepsis. He has a productive cough with dark yellow sputum. Given the positive respiratory panel for hMPV and the slow response to antibiotics, it is possible that hMPV is contributing significantly to his pneumonia. Typically, pneumococcal pneumonia responds to antibiotics within 48 hours. Severe pneumonia due to hMPV has been documented in patients with underlying conditions such as COPD or compromised immune systems. Severe pneumonia related to influenza A is is more likely in this setting. Chest CT done 2 days ago showed left lung atelectasis and few small infiltrates in left upper lobe. There was interim clearing of right lung pneumonia. On today's chest x-ray there is almost whiteout of the left lung. A new development has been observed with the onset of nosocomial pneumonia in the left lung. The patient is currently being treated with cefepime and levofloxacin. He received one dose of vancomycin yesterday. Overall, the patient seems to be tolerating the pneumonia well, exhibiting no significant shortness of breath, chest congestion, fever, chills, or other respiratory symptoms. Hemodynamically, he remains stable, with his primary complaint before starting antibiotics being weakness. Clinically, he appears improved today, although he is still wean and not able to cough up any phlegm. His FiO2 levels have remained relatively stable, despite the left lung being affected by the pneumonia. The most recent chest CT indicated a possible collapse of the left lower lobe. Additionally, the new chest X-ray suggests the possibility of a left pleural effusion. Plan: Continue to monitor the patient's respiratory status closely. Maintain the current antibiotic regimen, discontinuing vancomycin as the MRSA PCR test returned negative and the patient does not exhibit severe symptoms typical of MRSA pneumonia. Schedule a repeat chest CT to evaluate the extent of the left lower lobe collapse, investigate the potential left pleural effusion, and assess the progression of the new nosocomial pneumonia. (2) History of lung cancer: Code(s): Z85.118 - Personal history of other malignant neoplasm of bronchus and lung Status: Acute (3) Chronic narcotic use: Code(s): F11.90 - Opioid use, unspecified, uncomplicated Status: Acute (4) Influenza A: Code(s): J10.1 - Influenza due to other identified influenza virus with other respiratory manifestations Status: Acute (5) COPD (chronic obstructive pulmonary disease): Qualifiers: COPD type: unspecified COPD Qualified Code(s): J44.9 - Chronic obstructive pulmonary disease, unspecified Code(s): J44.9 - Chronic obstructive pulmonary disease, unspecified Status: Acute Subjective Date/time seen: 11/27/24 10:00 Interval history: Patient has no new respiratory symptoms. Has had some weakness developed over the last couple of days but no fever chills hemoptysis or wheezing. He has been on new antibiotic regimen for nosocomial pneumonia. Oxygen needs have not changed. Patient seems to be tolerating the nosocomial pneumonia with no drop in his O2 sat, has been hemodynamically stable and has had no increased cough or sputum production. He was able to cough up some phlegm yesterday that was sent out for sputum culture. Exam Narrative: GENERAL APPEARANCE: Well developed, well nourished, alert and cooperative, appears to be in mild respiratory distress while on high-flow nasal cannula SKIN: Inspection of the skin reveals no rashes, ulcerations or petechiae. HEENT: Sclerae anicteric and conjunctivae pink and moist. Extraocular movements were intact and pupils were equal, round. Moist oral mucosa. NECK: Supple. There was no thyroid enlargement, and no tenderness, or masses were felt. CHEST: Normal AP diameter and normal contour without any kyphoscoliosis. LUNGS: Crackles left lung posteriorly more than before also crackles right lung base. CARDIAC: There was a regular rate and rhythm without any murmurs, gallops, rubs. ABDOMEN: Soft and nontender with normal bowel sounds. There was no organomegaly. LYMPH NODES: No lymphadenopathy was appreciated in the neck. EXTREMITIES: No cyanosis, clubbing or edema. NEUROLOGIC: Alert and oriented x 3. Normal affect. Objective Data Vital Signs Vital Signs: Vital Signs - 24 hr 11/26/24 12:00 11/26/24 12:00 11/26/24 12:50 Temperature 37.1 C Pulse Rate 95 93 112 H Respiratory Rate 18 20 Blood Pressure 99/63 L Pulse Oximetry 98 96 Oxygen Delivery High Flow Therapy with Na Oxygen Flow Rate 40 Fraction of Inspired Oxygen 50 11/26/24 12:50 11/26/24 13:00 11/26/24 14:00 Temperature Pulse Rate 112 H 108 H 97 Respiratory Rate 20 18 Blood Pressure Pulse Oximetry Oxygen Delivery Oxygen Flow Rate Fraction of Inspired Oxygen 11/26/24 16:00 11/26/24 16:00 11/26/24 16:00 Temperature 37.0 C Pulse Rate 110 H 113 H 113 H Respiratory Rate 20 Blood Pressure 113/68 Pulse Oximetry 95 Oxygen Delivery Oxygen Flow Rate Fraction of Inspired Oxygen 11/26/24 18:00 11/26/24 20:00 11/26/24 20:24 Temperature Pulse Rate 115 H 95 103 H Respiratory Rate 18 Blood Pressure Pulse Oximetry Oxygen Delivery Oxygen Flow Rate Fraction of Inspired Oxygen 11/26/24 20:25 11/26/24 20:37 11/26/24 22:00 Temperature Pulse Rate 103 H 99 86 Respiratory Rate 20 18 Blood Pressure Pulse Oximetry 96 Oxygen Delivery High Flow Therapy with Na Oxygen Flow Rate 40 Fraction of Inspired Oxygen 50 11/26/24 22:10 11/27/24 00:00 11/27/24 00:07 Temperature 36.8 C 36.8 C Pulse Rate 87 91 91 Respiratory Rate 20 20 Blood Pressure 103/70 98/72 L Pulse Oximetry 97 93 Oxygen Delivery Oxygen Flow Rate Fraction of Inspired Oxygen 11/27/24 00:50 11/27/24 01:02 11/27/24 02:00 Temperature Pulse Rate 112 H 103 H 91 Respiratory Rate 18 18 Blood Pressure Pulse Oximetry Oxygen Delivery Oxygen Flow Rate Fraction of Inspired Oxygen 11/27/24 04:00 11/27/24 04:03 11/27/24 04:39 Temperature 36.9 C Pulse Rate 95 90 103 H Respiratory Rate 22 H 18 Blood Pressure 117/70 Pulse Oximetry 94 Oxygen Delivery Oxygen Flow Rate Fraction of Inspired Oxygen 11/27/24 04:52 11/27/24 05:54 11/27/24 07:58 Temperature Pulse Rate 97 90 91 Respiratory Rate 18 20 Blood Pressure Pulse Oximetry 96 Oxygen Delivery High Flow Therapy with Na Oxygen Flow Rate 34 Fraction of Inspired Oxygen 45 11/27/24 07:59 11/27/24 08:00 11/27/24 08:58 Temperature 36.9 C Pulse Rate 91 85 Respiratory Rate 18 28 H Blood Pressure 118/65 Pulse Oximetry 98 Oxygen Delivery High Flow Therapy with Na Oxygen Flow Rate 35 Fraction of Inspired Oxygen Intake/Output Intake/Output: Intake & Output 11/24/24 11/25/24 11/26/24 11/27/24 23:59 23:59 23:59 23:59 Intake Total 1040 1400 3440 250 Output Total 1225 1200 870 600 Balance -496 029 1558 -350 Meds/Results Medications: Active Medications Generic Name Dose Route Start Last Admin Trade Name Freq PRN Reason Stop Dose Admin Acetaminophen 650 mg 11/13/24 21:48 11/26/24 18:19 Acetaminophen 325 Mg Tablet PO 650 mg Q4H PRN Administration Mild Pain (1-3) or Fever Acetylcysteine 200 mg 11/24/24 10:56 Acetylcysteine 20% Inhal Soln 800 Mg/4 Ml Vial INHALATION Q12HR PRN Congestion Acetylcysteine 200 mg 11/25/24 20:00 11/27/24 07:57 Acetylcysteine 20% Inhal Soln 800 Mg/4 Ml Vial INHALATION 200 mg Q6HRT DANE Administration Albuterol/Ipratropium 3 ml 11/17/24 08:00 11/27/24 07:57 Ipratropium 0.5 Mg/Albuterol Sulfate 2.5 Mg Ampul.Neb 3 Ml INHALATION 3 ml Q4HRT DANE Administration Albuterol/Ipratropium 3 ml 11/23/24 11:56 11/23/24 15:00 Ipratropium 0.5 Mg/Albuterol Sulfate 2.5 Mg Ampul.Neb 3 Ml INHALATION 3 ml Q6HRT PRN Administration Dyspnea Bupropion HCl 300 mg 11/14/24 09:00 11/27/24 09:53 Bupropion Hcl Xl (24 Hr) 150 Mg Tabcr BY MOUTH 300 mg DAILY DANE Administration Enoxaparin Sodium 40 mg 11/21/24 09:00 11/27/24 09:53 Enoxaparin 40 Mg/0.4 Ml Syringe SUB-Q 40 mg DAILY DANE Administration Ferrous Sulfate 325 mg 11/14/24 09:00 11/27/24 09:53 Ferrous Sulfate [address] BY MOUTH 325 mg DAILY DANE Administration Guaifenesin 1,200 mg 11/14/24 10:35 11/27/24 09:53 Guaifenesin 12 Hr 600 Mg Tabcr PO 1,200 mg Q12HR DANE Administration Cefepime HCl 1 gm in 50 mls @ 100 mls/hr 11/25/24 17:00 11/27/24 04:56 Maxipime 1 Gm/Ns 50 Ml IVPB Infused Q12H DANE Infusion Levofloxacin/Dextrose 750 mg in 150 mls @ 100 mls/hr 11/26/24 08:00 11/26/24 19:00 Levaquin 750 Mg/D5w 150 Ml IVPB Infused QAM DANE Infusion Levetiracetam 500 mg 11/14/24 13:35 11/27/24 09:53 Levetiracetam 500 Mg Tablet PO 500 mg Q12HR DANE Administration Lidocaine 1 patch 11/14/24 09:00 11/27/24 09:52 Lidocaine 5% Patch TOPICAL 1 patch DAILY DANE Administration Midodrine 2.5 mg 11/14/24 09:00 11/27/24 09:53 Midodrine Hcl 2.5 Mg Tablet PO 2.5 mg BID DANE Administration Oxycodone HCl 10 mg 11/22/24 01:00 11/27/24 04:27 Oxycodone Hcl (*Crx) 5 Mg Tab Ir PO 10 mg BID@0100,0500 PRN Administration Breakthrough Pain Oxycodone HCl 10 mg 11/21/24 15:43 11/27/24 09:52 Oxycodone Hcl (*Crx) 5 Mg Tab Ir PO 10 mg Q4HR PRN Administration Pain Rated 4-6 Pantoprazole Sodium 40 mg 11/14/24 09:00 11/27/24 09:53 Pantoprazole 40 Mg Tablet PO 40 mg Q12HR DANE Administration Paroxetine HCl 40 mg 11/14/24 09:00 11/27/24 09:53 Paroxetine 20 Mg Tablet BY MOUTH 40 mg QAM DANE Administration Pregabalin 150 mg 11/14/24 09:00 11/27/24 09:53 Pregabalin (*Crx) 75 Mg Capsule PO 150 mg BID DANE Administration Sodium Chloride 1 spray 11/19/24 22:13 11/20/24 00:02 Saline 0.65% Meir Soln 44 Ml Btl NASAL 1 spray Q6HR PRN Administration Congestion Tizanidine HCl 4 mg 11/14/24 02:03 11/26/24 18:19 Tizanidine Hcl 4 Mg Tablet PO 4 mg TID PRN Administration muscle spasticity Trazodone HCl 100 mg 11/14/24 21:00 11/26/24 21:50 Trazodone Hcl 50 Mg Tablet PO 100 mg QHS DANE Administration Radiology Results: ITS Impressions Chest CT 11/20/24 14:52 IMPRESSION: 1. Diffuse lung disease with worsening on the right and improvement on the left, consistent with pneumonia. 2. Mild emphysema. Venous Doppler Study 11/20/24 19:54 IMPRESSION: Patent bilateral lower extremity veins. No evidence of deep venous thrombosis. Chest CTA 11/24/24 11:00 Impression: No evidence of pulmonary embolus, aortic dissection, or aortic aneurysm. Mild interval improvement in extensive right lung pneumonia/groundglass pulmonary disease. Complete left lower lobe atelectasis. Patchy small airways infection throughout the left upper lobe with extensive tree-in-bud opacities and nodularity similar to prior exam. Probable underlying chronic interstitial change extensively in the right lung base, especially right lower lobe. Mild emphysema. Chest X-Ray 11/26/24 06:21 IMPRESSION: 1. Diffuse lung disease, worsened from 11/23/2024, consistent with pneumonia. Left lung volume loss suggests a component of atelectasis. 2. Worsened small left pleural effusion. 3. Emphysema. Labs Labs: Laboratory Results - last 24 hr 11/26/24 11/26/24 11/27/24 09:20 14:36 05:18 WBC 15.4 H RBC 4.33 L Hgb 11.4 L Hct 36.3 L MCV 83.8 MCH 26.3 MCHC 31.4 L RDW 16.2 H Plt Count 308 MPV 9.9 Sodium 140 Potassium 4.3 Chloride 102 Carbon Dioxide 34 H Anion Gap 4 BUN 23 H Creatinine 0.89 Estim Creat Clear Calc 70 Estimated GFR > 60 Glucose 94 Lactic Acid 1.0 Calcium 8.7 Nasal MRSA (PCR) Not detected
[2024-11-27] MEDS: levoFLOXacin 750 MG/D5W 150 ML 750 MG/150 ML BAG 100 MG IVPB (10:08)
[2024-11-27] MEDS: LORATADINE 10 MG TABLET PO (13:54)
[2024-11-27] MEDS: CEFEPIME 2 GM/NS 50 ML 2 GM/50 ML BAG IVPB ×2 (13:54→22:17)
[2024-11-27] MEDS: traZODone HCL 50 MG TABLET 100 MG PO (20:33)
[2024-11-28] VITALS (24 sets, daily range): BP systolic 105–127; BP diastolic 62–75; PULSE 81–101; RESP 12–20; TEMP 36.3–36.9; O2SAT 92–97
[2024-11-28] MEDS: IPRATROPIUM 0.5 MG/ALBUTEROL SULFATE 2.5 MG AMPUL.NEB 3 ML INHALATION ×5 (01:08→20:12)
[2024-11-28] MEDS: ACETYLCYSTEINE 20% INHAL SOLN 800 MG/4 ML VIAL 200 MG INHALATION ×3 (01:08→20:12)
--- NOTE | 2024-11-28 03:58 | PCRCNOTE ---
Respiratory to update duo neb q6
[2024-11-28] MEDS: oxyCODONE HCL (*CRX) 5 MG TAB IR 10 MG PO ×5 (04:19→21:12)
[2024-11-28 05:08] LABS: Hematocrit 34.9 % (42.0-52.0); Mean Corpuscular HGB Conc 31.5 g/dl (32-36); Mean Corpuscular Volume 82.5 fl (80-100); Platelet Count Result 332 k/mm3 (150-375); Red Blood Count 4.23 M/mm3 (4.6-6.20); Red Cell Distribution Width 16.3 % (11.5-14.5); White Blood Count 13.2 K/mm3 (4.5-10.0)
[2024-11-28] MEDS: CEFEPIME 2 GM/NS 50 ML 2 GM/50 ML BAG IVPB ×3 (05:12→21:13)
[2024-11-28 05:22] LABS: Anion Gap 6 mmol/L (4-12); Blood Urea Nitrogen 22 mg/dL (9-20); Calcium 8.5 mg/dL (8.4-10.2); Carbon Dioxide 32 mmol/L (22-30); Chloride 100 mmol/L (98-107); Estimated CRCL calculation 77 ml/min; Estimated Glomerular Filt Rate > 60; Glucose 89 mg/dL (65-110); Potassium 4.1 mmol/L (3.4-5.0); Sodium 138 mmol/L (137-145)
--- NOTE | 2024-11-28 09:08 | P.PNIM_ITS ---
Progress Note: A&P Assessment and Plan (1) Postobstructive pneumonia: Code(s): J18.9 - Pneumonia, unspecified organism Status: Acute Assessment and Plan: Slowly improving * CTA chest without PE. * Patchy bibasilar ground opacity suspicious for infection as well as left descending bronchus being largely obstructive with postobstructive consolidation noted as well. * Continue Cefepime and Levofloxacin completed 11/22. Flagyl discontinued. * Duoneb q 4. * Guaifenesin 1,200 mg PO q 12. * Cornet flutter valve to aid in sputum expectoration. * CPT * Dr. Mosely and Dr. Wilkins Pulmonologists following * Repeat CT scan in 3-6 weeks. * His urine streptococcal antigen from 11/14/2024 returned positive today. * Add PT/OT * Human Metapneumovirus from 11/17/24 is positive. * Echocardiogram EF 55-60%, grade 1 diastolic dysfunction * LE dopplers negative. * Chest CT 11/24 shows improvement * Blood cultures negative. * 11/25 patient placed back on cefepime and levofloxacin (2) Influenza A: Code(s): J10.1 - Influenza due to other identified influenza virus with other respiratory manifestations Status: Acute Assessment and Plan: Improving * Influenza A positive. * Negative for COVID, RSV and Influenza B. * Tamiflu 75 mg PO q 12. Completed * High-flow nasal cannula, she had x-rays as able * Afebrile. (3) Pulmonary edema: Code(s): J81.1 - Chronic pulmonary edema Status: Acute Assessment and Plan: Improving Repeat chest x-ray in the morning slightly improved Echocardiogram 55-60% grade 1 diastolic dysfunction (4) COPD (chronic obstructive pulmonary disease): Qualifiers: COPD type: unspecified COPD Qualified Code(s): J44.9 - Chronic obstructive pulmonary disease, unspecified Code(s): J44.9 - Chronic obstructive pulmonary disease, unspecified Status: Acute Assessment and Plan: * Duoneb q4 * Continue Cefepime and Levofloxacin. Flagyl discontinued. * Guaifenesin 1,200 mg PO q 12. * Pulmonology consulted (5) Hypokalemia: Code(s): E87.6 - Hypokalemia Status: Acute Assessment and Plan: * Improved * Monitor labs. * Replete as needed (6) Back pain: Qualifiers: Back pain laterality: unspecified Back pain location: thoracic back pain Chronicity: unspecified Qualified Code(s): M54.6 - Pain in thoracic spine Code(s): M54.9 - Dorsalgia, unspecified Status: Acute Assessment and Plan: * Oxycodone for pain. * And muscle relaxer (7) Nodule of right lung: Code(s): R91.1 - Solitary pulmonary nodule Status: Acute Assessment and Plan: 11/27 CT 14 mm nodule in right lung lower lobe suspicious for primary bronchogenic carcinoma or metastatic disease. Not seen in previous CTs Pulmonology on board Plan full code Subjective Date/time seen: 11/28/24 09:08 Interval history: 64-year-old male with a past medical history to tobacco abuse, COPD, lung cancer status post right middle lobe lobectomy in 2019, vitamin B12 deficiency, iron deficiency anemia, chronic pain and chronic opioid use, GERD, hypotension who presents with shortness of breath for about a week found to have influenza a pneumonia. Restarted antibiotic therapy on 11/25/24 for nosocomial pneumonia. Leukocytosis improving. Patient states that he is doing about the same as yesterday preop Review of Systems Review of Systems: All systems reviewed & are unremarkable except as noted in HPI and below Exam Narrative: General: Ill-appearing HEENT: normocephalic, atraumatic. Mucous membranes moist. EOMI, PERRLA, bilateral sclera anicteric, no conjunctival injection. Neck supple without JVD, lymphadenopathy, or bruit. Respiratory: Diminished to ascultation bilaterally. Cardiovascular: Regular rate and rhythm, normal S1-S2 upon ascultation. No murmurs, rubs, or clicks. PMI is nondisplaced, capillary refill less than 3 second. Abdomen: Soft, round, no pulsatile masses, nondistended and nontender. No rebound, no guarding. No CVA tenderness, no hepatosplenomegaly. Bowel sounds present to all four quadrants. No high pitch or tinkling sounds, resonant to percussion. Extremities: No cyanosis, clubbing, or edema present. Pulses are palpable 2/2. Active ROM to all four extremities. Neuro: Alert and orientated x 4. PERRLA. Cranial nerves 2-12 intact without focal deficit. Skin: Warm, dry, and intact, without rash, erythema, or lesion. Psych: pleasant, cooperative, normal speech, normal affect, no hallucinations, no dysarthia High-flow nasal cannula Objective Data Vital Signs Vital Signs: Vital Signs - 24 hr 11/27/24 10:00 11/27/24 12:00 11/27/24 12:00 Temperature 97.9 F Pulse Rate 106 H 92 90 Respiratory Rate 24 H Blood Pressure 104/64 Pulse Oximetry 94 Oxygen Delivery Oxygen Flow Rate Fraction of Inspired Oxygen 11/27/24 12:00 11/27/24 14:00 11/27/24 16:00 Temperature 98.1 F Pulse Rate 97 95 Respiratory Rate 24 H Blood Pressure 101/63 Pulse Oximetry 94 94 Oxygen Delivery High Flow Therapy with Na Oxygen Flow Rate 35 Fraction of Inspired Oxygen 45 11/27/24 16:00 11/27/24 16:00 11/27/24 18:00 Temperature Pulse Rate 92 101 H Respiratory Rate Blood Pressure Pulse Oximetry 94 Oxygen Delivery High Flow Therapy with Na Oxygen Flow Rate 35 Fraction of Inspired Oxygen 45 11/27/24 19:54 11/27/24 20:00 11/27/24 20:00 Temperature 98.2 F Pulse Rate 110 H 111 H 111 H Respiratory Rate 18 18 Blood Pressure 119/77 Pulse Oximetry 91 91 Oxygen Delivery High Flow Therapy with Na Oxygen Flow Rate 35 Fraction of Inspired Oxygen 40 11/27/24 20:40 11/27/24 20:40 11/27/24 21:10 Temperature Pulse Rate 109 H 91 91 Respiratory Rate 20 18 18 Blood Pressure Pulse Oximetry 94 Oxygen Delivery High Flow Therapy with Na Oxygen Flow Rate 34 Fraction of Inspired Oxygen 45 11/27/24 21:47 11/27/24 23:50 11/28/24 00:00 Temperature 97.7 F Pulse Rate 100 93 93 Respiratory Rate 20 Blood Pressure 105/62 Pulse Oximetry 93 93 Oxygen Delivery High Flow Therapy with Na Oxygen Flow Rate 35 Fraction of Inspired Oxygen 45 11/28/24 00:00 11/28/24 01:08 11/28/24 01:20 Temperature Pulse Rate 93 91 91 Respiratory Rate 18 18 Blood Pressure Pulse Oximetry Oxygen Delivery Oxygen Flow Rate Fraction of Inspired Oxygen 11/28/24 02:00 11/28/24 03:51 11/28/24 04:00 Temperature 97.4 F L Pulse Rate 94 92 92 Respiratory Rate 18 18 Blood Pressure 109/62 Pulse Oximetry 92 92 Oxygen Delivery High Flow Therapy with Na Oxygen Flow Rate 35 Fraction of Inspired Oxygen 45 02/25/25 04:00 11/28/24 06:00 11/28/24 08:00 Temperature 98.2 F Pulse Rate 92 88 84 Respiratory Rate 16 Blood Pressure 105/64 Pulse Oximetry 93 Oxygen Delivery Oxygen Flow Rate Fraction of Inspired Oxygen Intake/Output Intake/Output: Intake & Output 11/25/24 11/26/24 11/27/24 11/28/24 23:59 23:59 23:59 23:59 Intake Total 1400 3440 1120 50 Output Total 0598 207 5786 300 Balance 200 2570 -130 -250 Meds/Results Medications: Active Medications Generic Name Dose Route Start Last Admin Trade Name Freq PRN Reason Stop Dose Admin Acetaminophen 650 mg 11/13/24 21:48 11/26/24 18:19 Acetaminophen 325 Mg Tablet PO 650 mg Q4H PRN Administration Mild Pain (1-3) or Fever Acetylcysteine 200 mg 11/24/24 10:56 Acetylcysteine 20% Inhal Soln 800 Mg/4 Ml Vial INHALATION Q12HR PRN Congestion Acetylcysteine 200 mg 11/25/24 20:00 11/28/24 01:08 Acetylcysteine 20% Inhal Soln 800 Mg/4 Ml Vial INHALATION 200 mg Q6HRT DANE Administration Albuterol/Ipratropium 3 ml 11/17/24 08:00 11/28/24 03:58 Ipratropium 0.5 Mg/Albuterol Sulfate 2.5 Mg Ampul.Neb 3 Ml INHALATION 3 ml Q4HRT DANE Administration Albuterol/Ipratropium 3 ml 11/23/24 11:56 11/23/24 15:00 Ipratropium 0.5 Mg/Albuterol Sulfate 2.5 Mg Ampul.Neb 3 Ml INHALATION 3 ml Q6HRT PRN Administration Dyspnea Bupropion HCl 300 mg 11/14/24 09:00 11/27/24 09:53 Bupropion Hcl Xl (24 Hr) 150 Mg Tabcr BY MOUTH 300 mg DAILY DANE Administration Enoxaparin Sodium 40 mg 11/21/24 09:00 11/27/24 09:53 Enoxaparin 40 Mg/0.4 Ml Syringe SUB-Q 40 mg DAILY DANE Administration Ferrous Sulfate 325 mg 11/14/24 09:00 11/27/24 09:53 Ferrous Sulfate [address] BY MOUTH 325 mg DAILY DANE Administration Guaifenesin 1,200 mg 11/14/24 10:35 11/27/24 20:33 Guaifenesin 12 Hr 600 Mg Tabcr PO 1,200 mg Q12HR DANE Administration Levofloxacin/Dextrose 750 mg in 150 mls @ 100 mls/hr 11/26/24 08:00 11/27/24 10:08 Levaquin 750 Mg/D5w 150 Ml IVPB 100 mls/hr QAM DANE Administration Cefepime HCl 2 gm in 50 mls @ 100 mls/hr 11/27/24 13:00 11/28/24 05:45 Maxipime 2 Gm/Ns 50 Ml IVPB Infused Q8HR DANE Infusion Levetiracetam 500 mg 11/14/24 13:35 11/27/24 20:33 Levetiracetam 500 Mg Tablet PO 500 mg Q12HR DANE Administration Lidocaine 1 patch 11/14/24 09:00 11/27/24 09:52 Lidocaine 5% Patch TOPICAL 1 patch DAILY DANE Administration Loratadine 10 mg 11/27/24 13:10 11/27/24 13:54 Loratadine 10 Mg Tablet PO 10 mg QAM DANE Administration Midodrine 2.5 mg 11/14/24 09:00 11/27/24 18:25 Midodrine Hcl 2.5 Mg Tablet PO 2.5 mg BID DANE Administration Oxycodone HCl 10 mg 11/22/24 01:00 11/27/24 04:27 Oxycodone Hcl (*Crx) 5 Mg Tab Ir PO 10 mg BID@0100,0500 PRN Administration Breakthrough Pain Oxycodone HCl 10 mg 11/21/24 15:43 11/28/24 04:19 Oxycodone Hcl (*Crx) 5 Mg Tab Ir PO 10 mg Q4HR PRN Administration Pain Rated 4-6 Pantoprazole Sodium 40 mg 11/14/24 09:00 11/27/24 20:33 Pantoprazole 40 Mg Tablet PO 40 mg Q12HR DANE Administration Paroxetine HCl 40 mg 11/14/24 09:00 11/27/24 09:53 Paroxetine 20 Mg Tablet BY MOUTH 40 mg QAM DANE Administration Pregabalin 150 mg 11/14/24 09:00 11/27/24 18:25 Pregabalin (*Crx) 75 Mg Capsule PO 150 mg BID DANE Administration Sodium Chloride 1 spray 11/19/24 22:13 11/20/24 00:02 Saline 0.65% Meir Soln 44 Ml Btl NASAL 1 spray Q6HR PRN Administration Congestion Tizanidine HCl 4 mg 11/14/24 02:03 11/26/24 18:19 Tizanidine Hcl 4 Mg Tablet PO 4 mg TID PRN Administration muscle spasticity Trazodone HCl 100 mg 11/14/24 21:00 11/27/24 20:33 Trazodone Hcl 50 Mg Tablet PO 100 mg QHS DANE Administration Radiology Results: ITS Impressions Venous Doppler Study 11/20/24 19:54 IMPRESSION: Patent bilateral lower extremity veins. No evidence of deep venous thrombosis. Chest CTA 11/24/24 11:00 Impression: No evidence of pulmonary embolus, aortic dissection, or aortic aneurysm. Mild interval improvement in extensive right lung pneumonia/groundglass pulmonary disease. Complete left lower lobe atelectasis. Patchy small airways infection throughout the left upper lobe with extensive tree-in-bud opacities and nodularity similar to prior exam. Probable underlying chronic interstitial change extensively in the right lung base, especially right lower lobe. Mild emphysema. Chest X-Ray 11/26/24 06:21 IMPRESSION: 1. Diffuse lung disease, worsened from 11/23/2024, consistent with pneumonia. Left lung volume loss suggests a component of atelectasis. 2. Worsened small left pleural effusion. 3. Emphysema. Chest CT 11/27/24 12:29 IMPRESSION: 1. Widespread pneumonia, left worse than right. 2. Mucous plugging in left mainstem bronchus. 3. 14 mm nodule in right lung lower lobe suspicious for primary bronchogenic carcinoma or metastatic disease. 4. Mild emphysema. Labs Labs: Laboratory Results - last 24 hr 11/28/24 04:18 WBC 13.2 H RBC 4.23 L Hgb 11.0 L Hct 34.9 L MCV 82.5 MCH 26.0 MCHC 31.5 L RDW 16.3 H Plt Count 332 MPV 10.0 Sodium 138 Potassium 4.1 Chloride 100 Carbon Dioxide 32 H Anion Gap 6 BUN 22 H Creatinine 0.81 Estim Creat Clear Calc 77 Estimated GFR > 60 Glucose 89 Calcium 8.5 Quality VTE Prophylaxis VTE prophylaxis: mechanical ordered and pharmacologic ordered
[2024-11-28] MEDS: FERROUS SULFATE 325 MG TABLET DR BY MOUTH (09:41)
[2024-11-28] MEDS: PANTOPRAZOLE 40 MG TABLET PO ×2 (09:41→21:11)
[2024-11-28] MEDS: PREGABALIN (*CRX) 75 MG CAPSULE 150 MG PO ×2 (09:41→17:06)
[2024-11-28] MEDS: ENOXAPARIN 40 MG/0.4 ML SYRINGE SUB-Q (09:41)
[2024-11-28] MEDS: guaiFENesin 12 HR 600 MG TABCR 1200 MG PO ×2 (09:41→21:11)
[2024-11-28] MEDS: MIDODRINE HCL 2.5 MG TABLET PO ×2 (09:41→17:06)
[2024-11-28] MEDS: PARoxetine 20 MG TABLET 40 MG BY MOUTH (09:41)
[2024-11-28] MEDS: buPROPion HCL XL (24 HR) 150 MG TABCR 300 MG BY MOUTH (09:42)
[2024-11-28] MEDS: levETIRAcetam 500 MG TABLET PO ×2 (09:42→21:13)
[2024-11-28] MEDS: LORATADINE 10 MG TABLET PO (09:42)
[2024-11-28] MEDS: LIDOCAINE 5% PATCH 1 PATCH TOPICAL (09:43)
[2024-11-28] MEDS: levoFLOXacin 750 MG/D5W 150 ML 750 MG/150 ML BAG 100 MG IVPB (09:43)
--- NOTE | 2024-11-28 09:43 | P.PNPL_ITS ---
Progress Note: A&P Assessment and Plan (1) Respiratory failure with hypoxia and hypercapnia: Code(s): J96.91 - Respiratory failure, unspecified with hypoxia; J96.92 - Respiratory failure, unspecified with hypercapnia Status: Acute Assessment and Plan: This 64-year-old male patient, with a medical history of COPD and previous lung resection for lung cancer, presented with acute respiratory failure due to a l ower respiratory tract infection. Testing revealed positive results for influenza A and human metapneumovirus (hMPV), and a urine test was positive for pneumococcal antigen, indicating a pneumonia likely caused by multiple infectious agents. The patient has been treated for influenza A and is currently receiving three antibiotics to address potential bacterial coinfection. Although his gas exchange has improved in the past few days, he remains on high-flow oxygen via nasal cannula with high FiO2. He continues to experience shortness of breath but does not have a fever or signs of sepsis. He has a productive cough with dark yellow sputum. Given the positive respiratory panel for hMPV and the slow response to antibiotics, it is possible that hMPV is contributing significantly to his pneumonia. Typically, pneumococcal pneumonia responds to antibiotics within 48 hours. Severe pneumonia due to hMPV has been documented in patients with underlying conditions such as COPD or compromised immune systems. Severe pneumonia related to influenza A is is more likely in this setting. Chest CT done 2 days ago showed left lung atelectasis and few small infiltrates in left upper lobe. There was interim clearing of right lung pneumonia. On today's chest x-ray there is almost whiteout of the left lung. A new development has been observed with the onset of nosocomial pneumonia in the left lung. The patient is currently being treated with cefepime and levofloxacin. He received one dose of vancomycin y 2 days ago. Overall, the patient seems to be tolerating the pneumonia well, exhibiting no significant shortness of breath, chest congestion, fever, chills, or other respiratory symptoms. Hemodynamically, he remains stable, with his primary complaint before starting antibiotics being weakness. WBC trending down. Sputum culture yielded yeast. I just called the [facility] and requested further ID of the yeast. Plan: Continue to monitor the patient's respiratory status closely. Maintain the current antibiotic regimen. Repeat chest x-ray in a.m. (2) History of lung cancer: Code(s): Z85.118 - Personal history of other malignant neoplasm of bronchus and lung Status: Acute (3) Chronic narcotic use: Code(s): F11.90 - Opioid use, unspecified, uncomplicated Status: Acute (4) Influenza A: Code(s): J10.1 - Influenza due to other identified influenza virus with other respiratory manifestations Status: Acute (5) COPD (chronic obstructive pulmonary disease): Qualifiers: COPD type: unspecified COPD Qualified Code(s): J44.9 - Chronic obstructive pulmonary disease, unspecified Code(s): J44.9 - Chronic obstructive pulmonary disease, unspecified Status: Acute Subjective Date/time seen: 11/28/24 09:43 Interval history: Patient has no new respiratory symptoms he stated he is feeling better no fever chills change in shortness of breath. Remains on same FiO2 Review of Systems Review of Systems: All systems reviewed & are unremarkable except as noted in HPI and below (HPI and below) Exam Narrative: GENERAL APPEARANCE: Well developed, well nourished, alert and cooperative, appears to be in mild respiratory distress while on high-flow nasal cannula SKIN: Inspection of the skin reveals no rashes, ulcerations or petechiae. HEENT: Sclerae anicteric and conjunctivae pink and moist. Extraocular movements were intact and pupils were equal, round. Moist oral mucosa. NECK: Supple. There was no thyroid enlargement, and no tenderness, or masses w ere felt. CHEST: Normal AP diameter and normal contour without any kyphoscoliosis. LUNGS: Crackles left lung posteriorly more than before also crackles right lung base. CARDIAC: There was a regular rate and rhythm without any murmurs, gallops, rubs. ABDOMEN: Soft and nontender with normal bowel sounds. There was no organomegaly. LYMPH NODES: No lymphadenopathy was appreciated in the neck. EXTREMITIES: No cyanosis, clubbing or edema. NEUROLOGIC: Alert and oriented x 3. Normal affect. Objective Data Vital Signs Vital Signs: Vital Signs - 24 hr 11/27/24 10:00 11/27/24 12:00 11/27/24 12:00 Temperature 36.6 C Pulse Rate 106 H 92 90 Respiratory Rate 24 H Blood Pressure 104/64 Pulse Oximetry 94 Oxygen Delivery Oxygen Flow Rate Fraction of Inspired Oxygen 11/27/24 12:00 11/27/24 14:00 11/27/24 16:00 Temperature 36.7 C Pulse Rate 97 95 Respiratory Rate 24 H Blood Pressure 101/63 Pulse Oximetry 94 94 Oxygen Delivery High Flow Therapy with Na Oxygen Flow Rate 35 Fraction of Inspired Oxygen 45 11/27/24 16:00 11/27/24 16:00 11/27/24 18:00 Temperature Pulse Rate 92 101 H Respiratory Rate Blood Pressure Pulse Oximetry 94 Oxygen Delivery High Flow Therapy with Na Oxygen Flow Rate 35 Fraction of Inspired Oxygen 45 11/27/24 19:54 11/27/24 20:00 11/27/24 20:00 Temperature 36.8 C Pulse Rate 110 H 111 H 111 H Respiratory Rate 18 18 Blood Pressure 119/77 Pulse Oximetry 91 91 Oxygen Delivery High Flow Therapy with Na Oxygen Flow Rate 35 Fraction of Inspired Oxygen 40 11/27/24 20:40 11/27/24 20:40 11/27/24 21:10 Temperature Pulse Rate 109 H 91 91 Respiratory Rate 20 18 18 Blood Pressure Pulse Oximetry 94 Oxygen Delivery High Flow Therapy with Na Oxygen Flow Rate 34 Fraction of Inspired Oxygen 45 11/27/24 21:47 11/27/24 23:50 11/28/24 00:00 Temperature 36.5 C Pulse Rate 100 93 93 Respiratory Rate 20 Blood Pressure 105/62 Pulse Oximetry 93 93 Oxygen Delivery High Flow Therapy with Na Oxygen Flow Rate 35 Fraction of Inspired Oxygen 45 11/28/24 00:00 11/28/24 01:08 11/28/24 01:20 Temperature Pulse Rate 93 91 91 Respiratory Rate 18 18 Blood Pressure Pulse Oximetry Oxygen Delivery Oxygen Flow Rate Fraction of Inspired Oxygen 11/28/24 02:00 11/28/24 03:51 11/28/24 04:00 Temperature 36.3 C L Pulse Rate 94 92 92 Respiratory Rate 18 18 Blood Pressure 109/62 Pulse Oximetry 92 92 Oxygen Delivery High Flow Therapy with Na Oxygen Flow Rate 35 Fraction of Inspired Oxygen 45 11/28/24 04:00 11/28/24 06:00 11/28/24 08:00 Temperature 36.8 C Pulse Rate 92 88 84 Respiratory Rate 16 Blood Pressure 105/64 Pulse Oximetry 93 Oxygen Delivery Oxygen Flow Rate Fraction of Inspired Oxygen Intake/Output Intake/Output: Intake & Output 11/25/24 11/26/24 11/27/24 11/28/24 23:59 23:59 23:59 23:59 Intake Total 1400 3440 1120 50 Output Total 5672 067 3120 300 Balance 200 2570 -130 -250 Meds/Results Medications: Active Medications Generic Name Dose Route Start Last Admin Trade Name Freq PRN Reason Stop Dose Admin Acetaminophen 650 mg 11/13/24 21:48 11/26/24 18:19 Acetaminophen 325 Mg Tablet PO 650 mg Q4H PRN Administration Mild Pain (1-3) or Fever Acetylcysteine 200 mg 11/24/24 10:56 Acetylcysteine 20% Inhal Soln 800 Mg/4 Ml Vial INHALATION Q12HR PRN Congestion Acetylcysteine 200 mg 11/25/24 20:00 11/28/24 01:08 Acetylcysteine 20% Inhal Soln 800 Mg/4 Ml Vial INHALATION 200 mg Q6HRT DANE Administration Albuterol/Ipratropium 3 ml 11/17/24 08:00 11/28/24 03:58 Ipratropium 0.5 Mg/Albuterol Sulfate 2.5 Mg Ampul.Neb 3 Ml INHALATION 3 ml Q4HRT DANE Administration Albuterol/Ipratropium 3 ml 11/23/24 11:56 11/23/24 15:00 Ipratropium 0.5 Mg/Albuterol Sulfate 2.5 Mg Ampul.Neb 3 Ml INHALATION 3 ml Q6HRT PRN Administration Dyspnea Bupropion HCl 300 mg 11/14/24 09:00 11/27/24 09:53 Bupropion Hcl Xl (24 Hr) 150 Mg Tabcr BY MOUTH 300 mg DAILY DANE Administration Enoxaparin Sodium 40 mg 11/21/24 09:00 11/27/24 09:53 Enoxaparin 40 Mg/0.4 Ml Syringe SUB-Q 40 mg DAILY DANE Administration Ferrous Sulfate 325 mg 11/14/24 09:00 11/27/24 09:53 Ferrous Sulfate [address] BY MOUTH 325 mg DAILY DANE Administration Guaifenesin 1,200 mg 11/14/24 10:35 11/27/24 20:33 Guaifenesin 12 Hr 600 Mg Tabcr PO 1,200 mg Q12HR DANE Administration Levofloxacin/Dextrose 750 mg in 150 mls @ 100 mls/hr 11/26/24 08:00 11/27/24 10:08 Levaquin 750 Mg/D5w 150 Ml IVPB 100 mls/hr QAM DANE Administration Cefepime HCl 2 gm in 50 mls @ 100 mls/hr 11/27/24 13:00 11/28/24 05:45 Maxipime 2 Gm/Ns 50 Ml IVPB Infused Q8HR DANE Infusion Levetiracetam 500 mg 11/14/24 13:35 11/27/24 20:33 Levetiracetam 500 Mg Tablet PO 500 mg Q12HR DANE Administration Lidocaine 1 patch 11/14/24 09:00 11/27/24 09:52 Lidocaine 5% Patch TOPICAL 1 patch DAILY DANE Administration Loratadine 10 mg 11/27/24 13:10 11/27/24 13:54 Loratadine 10 Mg Tablet PO 10 mg QAM DANE Administration Midodrine 2.5 mg 11/14/24 09:00 11/27/24 18:25 Midodrine Hcl 2.5 Mg Tablet PO 2.5 mg BID DANE Administration Oxycodone HCl 10 mg 11/22/24 01:00 11/27/24 04:27 Oxycodone Hcl (*Crx) 5 Mg Tab Ir PO 10 mg BID@0100,0500 PRN Administration Breakthrough Pain Oxycodone HCl 10 mg 11/21/24 15:43 11/28/24 04:19 Oxycodone Hcl (*Crx) 5 Mg Tab Ir PO 10 mg Q4HR PRN Administration Pain Rated 4-6 Pantoprazole Sodium 40 mg 11/14/24 09:00 11/27/24 20:33 Pantoprazole 40 Mg Tablet PO 40 mg Q12HR DANE Administration Paroxetine HCl 40 mg 11/14/24 09:00 11/27/24 09:53 Paroxetine 20 Mg Tablet BY MOUTH 40 mg QAM DANE Administration Pregabalin 150 mg 11/14/24 09:00 11/27/24 18:25 Pregabalin (*Crx) 75 Mg Capsule PO 150 mg BID DNAE Administration Sodium Chloride 1 spray 11/19/24 22:13 11/20/24 00:02 Saline 0.65% Meir Soln 44 Ml Btl NASAL 1 spray Q6HR PRN Administration Congestion Tizanidine HCl 4 mg 11/14/24 02:03 11/26/24 18:19 Tizanidine Hcl 4 Mg Tablet PO 4 mg TID PRN Administration muscle spasticity Trazodone HCl 100 mg 11/14/24 21:00 11/27/24 20:33 Trazodone Hcl 50 Mg Tablet PO 100 mg QHS DANE Administration Radiology Results: ITS Impressions Venous Doppler Study 11/20/24 19:54 IMPRESSION: Patent bilateral lower extremity veins. No evidence of deep venous thrombosis. Chest CTA 11/24/24 11:00 Impression: No evidence of pulmonary embolus, aortic dissection, or aortic aneurysm. Mild interval improvement in extensive right lung pneumonia/groundglass pulmonary disease. Complete left lower lobe atelectasis. Patchy small airways infection throughout the left upper lobe with extensive tree-in-bud opacities and nodularity similar to prior exam. Probable underlying chronic interstitial change extensively in the right lung base, especially right lower lobe. Mild emphysema. Chest X-Ray 11/26/24 06:21 IMPRESSION: 1. Diffuse lung disease, worsened from 11/23/2024, consistent with pneumonia. Left lung volume loss suggests a component of atelectasis. 2. Worsened small left pleural effusion. 3. Emphysema. Chest CT 11/27/24 12:29 IMPRESSION: 1. Widespread pneumonia, left worse than right. 2. Mucous plugging in left mainstem bronchus. 3. 14 mm nodule in right lung lower lobe suspicious for primary bronchogenic carcinoma or metastatic disease. 4. Mild emphysema. Labs Labs: Laboratory Results - last 24 hr 11/28/24 04:18 WBC 13.2 H RBC 4.23 L Hgb 11.0 L Hct 34.9 L MCV 82.5 MCH 26.0 MCHC 31.5 L RDW 16.3 H Plt Count 332 MPV 10.0 Sodium 138 Potassium 4.1 Chloride 100 Carbon Dioxide 32 H Anion Gap 6 BUN 22 H Creatinine 0.81 Estim Creat Clear Calc 77 Estimated GFR > 60 Glucose 89 Calcium 8.5
--- NOTE | 2024-11-28 09:59 | PCOTNOTE ---
The patient treatment was not able to be completed respiratory in the room. Will plan to continue treatment per plan of care.
[2024-11-28] MEDS: traZODone HCL 50 MG TABLET 100 MG PO (21:13)
[2024-11-29] VITALS (25 sets, daily range): BP systolic 111–121; BP diastolic 65–78; PULSE 79–98; RESP 16–26; TEMP 36.6–37.1; O2SAT 93–99
[2024-11-29] MEDS: IPRATROPIUM 0.5 MG/ALBUTEROL SULFATE 2.5 MG AMPUL.NEB 3 ML INHALATION ×4 (02:05→19:30)
[2024-11-29] MEDS: CEFEPIME 2 GM/NS 50 ML 2 GM/50 ML BAG IVPB ×3 (05:07→21:06)
[2024-11-29] MEDS: oxyCODONE HCL (*CRX) 5 MG TAB IR 10 MG PO ×5 (05:07→23:25)
[2024-11-29 05:45] LABS: Hematocrit 35.7 % (42.0-52.0); Hemoglobin 11.1 g/dL (14.0-18.0); Mean Corpuscular HGB Conc 31.1 g/dl (32-36); Mean Corpuscular Hemoglobin 25.8 pg (26-34); Mean Platelet Volume 10.3 fl (7.4-10.4); Platelet Count Result 342 k/mm3 (150-375); Red Cell Distribution Width 16.3 % (11.5-14.5); White Blood Count 9.4 K/mm3 (4.5-10.0)
[2024-11-29 05:58] LABS: Anion Gap 6 mmol/L (4-12); Blood Urea Nitrogen 20 mg/dL (9-20); Calcium 8.7 mg/dL (8.4-10.2); Carbon Dioxide 32 mmol/L (22-30); Chloride 100 mmol/L (98-107); Estimated CRCL calculation 74 ml/min; Estimated Glomerular Filt Rate > 60; Glucose 93 mg/dL (65-110); Potassium 4.2 mmol/L (3.4-5.0); Sodium 138 mmol/L (137-145)
[2024-11-29] MEDS: ACETYLCYSTEINE 20% INHAL SOLN 800 MG/4 ML VIAL 200 MG INHALATION ×2 (08:06→19:30)
--- NOTE | 2024-11-29 08:29 | P.PNPL_ITS ---
Progress Note: A&P Assessment and Plan (1) Respiratory failure with hypoxia and hypercapnia: Code(s): J96.91 - Respiratory failure, unspecified with hypoxia; J96.92 - Respiratory failure, unspecified with hypercapnia Status: Acute Assessment and Plan: This 64-year-old male patient, with a medical history of COPD and previous lung resection for lung cancer, presented with acute respiratory failure due to a l ower respiratory tract infection. Testing revealed positive results for influenza A and human metapneumovirus (hMPV), and a urine test was positive for pneumococcal antigen, indicating a pneumonia likely caused by multiple infectious agents. The patient has been treated for influenza A and is currently receiving three antibiotics to address potential bacterial coinfection. Although his gas exchange has improved in the past few days, he remains on high-flow oxygen via nasal cannula with high FiO2. He continues to experience shortness of breath but does not have a fever or signs of sepsis. He has a productive cough with dark yellow sputum. Given the positive respiratory panel for hMPV and the slow response to antibiotics, it is possible that hMPV is contributing significantly to his pneumonia. Typically, pneumococcal pneumonia responds to antibiotics within 48 hours. Severe pneumonia due to hMPV has been documented in patients with underlying conditions such as COPD or compromised immune systems. Severe pneumonia related to influenza A is is more likely in this setting. Recent chest imaging studies revealed significant improvement in the severe pneumonia previously affecting the right lung, but also identified new pneumonia in the left lung and atelectasis in the left lower lobe. Additionally, a new 1.4 cm nodule was detected in the right lower lobe, which is highly suspicious for cancer recurrence. Over the past 72 hours, the patient has been treated for nosocomial pneumonia affecting the left lung. Despite this, the patient?s overall clinical condition has remained stable, with no significant increase in oxygen requirements. Notably, clinical improvement has been observed over the past 24 hours, as evidenced by the white blood cell count returning to normal levels. The patient has started to mobilize secretions, experiencing a cough with light yellow phlegm production this a.m.. Today's chest X-ray showed findings on the left that are largely unchanged. The most recent sputum culture identified yeast, with further identification pending. The discovery of a new lung nodule, which is suspicious for cancer recurrence, was thoroughly discussed with the patient this morning and with his last evening. Further testing will be necessary on an outpatient basis once the patient recovers from the severe pneumonia. Plan: Continue to closely monitor the patient?s respiratory status. Maintain the current antibiotic regimen. Continue administering short-acting bronchodilators and mucolytic agents. Encourage the use of lung clearing techniques, such as the Cornet device and incentive spirometry, to address left lower lung atelectasis. (2) History of lung cancer: Code(s): Z85.118 - Personal history of other malignant neoplasm of bronchus and lung Status: Acute (3) Chronic narcotic use: Code(s): F11.90 - Opioid use, unspecified, uncomplicated Status: Acute (4) Influenza A: Code(s): J10.1 - Influenza due to other identified influenza virus with other respiratory manifestations Status: Acute (5) COPD (chronic obstructive pulmonary disease): Qualifiers: COPD type: unspecified COPD Qualified Code(s): J44.9 - Chronic obstructive pulmonary disease, unspecified Code(s): J44.9 - Chronic obstructive pulmonary disease, unspecified Status: Acute Subjective Date/time seen: 11/29/24 08:29 Interval history: Patient has no new respiratory symptoms. He was able to cough up some light yellow phlegm but currently has no chest congestion wheezing fever hemoptysis. He stated that his breathing seems to be getting better. He remains on same FiO2. Review of Systems Review of Systems: All systems reviewed & are unremarkable except as noted in HPI and below Exam Narrative: GENERAL APPEARANCE: Well developed, well nourished, alert and cooperative, appears to be in mild respiratory distress while on high-flow nasal cannula SKIN: Inspection of the skin reveals no rashes, ulcerations or petechiae. HEENT: Sclerae anicteric and conjunctivae pink and moist. Extraocular movements were intact and pupils were equal, round. Moist oral mucosa. NECK: Supple. There was no thyroid enlargement, and no tenderness, or masses were felt. CHEST: Normal AP diameter and normal contour without any kyphoscoliosis. LUNGS: Crackles left lung posteriorly more than before also crackles right lung base. CARDIAC: There was a regular rate and rhythm without any murmurs, gallops, rubs. ABDOMEN: Soft and nontender with normal bowel sounds. There was no organomegaly. LYMPH NODES: No lymphadenopathy was appreciated in the neck. EXTREMITIES: No cyanosis, clubbing or edema. NEUROLOGIC: Alert and oriented x 3. Normal affect. Objective Data Vital Signs Vital Signs: Vital Signs - 24 hr 11/28/24 10:00 11/28/24 10:02 11/28/24 10:02 Temperature Pulse Rate 81 84 Respiratory Rate 20 Blood Pressure Pulse Oximetry 95 Oxygen Delivery High Flow Therapy with Na Oxygen Flow Rate 35 Fraction of Inspired Oxygen 45 11/28/24 10:18 11/28/24 12:00 11/28/24 12:00 Temperature 36.6 C Pulse Rate 85 85 Respiratory Rate 20 12 Blood Pressure 113/66 Pulse Oximetry 97 97 Oxygen Delivery High Flow Therapy with Na Oxygen Flow Rate 35 Fraction of Inspired Oxygen 45 11/28/24 12:00 11/28/24 14:00 11/28/24 15:12 Temperature Pulse Rate 84 92 Respiratory Rate Blood Pressure Pulse Oximetry 93 Oxygen Delivery High Flow Therapy with Na Oxygen Flow Rate 35 Fraction of Inspired Oxygen 45 11/28/24 15:13 11/28/24 15:26 11/28/24 15:27 Temperature Pulse Rate 95 93 Respiratory Rate 20 20 Blood Pressure Pulse Oximetry Oxygen Delivery High Flow Therapy with Na Oxygen Flow Rate 35 Fraction of Inspired Oxygen 11/28/24 16:00 11/28/24 16:00 11/28/24 16:00 Temperature 36.8 C Pulse Rate 98 101 H Respiratory Rate 16 Blood Pressure 127/75 Pulse Oximetry 93 93 Oxygen Delivery High Flow Therapy with Na Oxygen Flow Rate 35 Fraction of Inspired Oxygen 45 11/28/24 18:00 11/28/24 20:00 11/28/24 20:00 Temperature Pulse Rate 92 94 94 Respiratory Rate 16 Blood Pressure Pulse Oximetry 94 Oxygen Delivery High Flow Therapy with Na Oxygen Flow Rate 35 Fraction of Inspired Oxygen 45 11/28/24 20:02 11/28/24 20:15 11/28/24 20:15 Temperature 36.9 C Pulse Rate 92 90 Respiratory Rate 20 16 Blood Pressure 114/75 Pulse Oximetry 93 94 Oxygen Delivery High Flow Therapy with Na Oxygen Flow Rate 35 Fraction of Inspired Oxygen 45 11/28/24 20:22 11/28/24 21:00 11/28/24 22:00 Temperature Pulse Rate 88 86 86 Respiratory Rate 16 16 Blood Pressure Pulse Oximetry 94 Oxygen Delivery High Flow Therapy with Na Oxygen Flow Rate 35 Fraction of Inspired Oxygen 55 11/29/24 00:00 11/29/24 00:00 11/29/24 00:21 Temperature 36.9 C Pulse Rate 86 82 92 Respiratory Rate 16 20 Blood Pressure 118/68 Pulse Oximetry 94 93 Oxygen Delivery High Flow Therapy with Na Oxygen Flow Rate 35 Fraction of Inspired Oxygen 55 11/29/24 02:00 11/29/24 02:05 11/29/24 02:05 Temperature Pulse Rate 90 91 Respiratory Rate 16 Blood Pressure Pulse Oximetry 93 Oxygen Delivery High Flow Therapy with Na Oxygen Flow Rate 35 Fraction of Inspired Oxygen 55 11/29/24 02:12 11/29/24 03:36 11/29/24 04:00 Temperature 37.1 C Pulse Rate 94 84 84 Respiratory Rate 16 20 20 Blood Pressure 120/78 Pulse Oximetry 94 94 Oxygen Delivery High Flow Therapy with Na Oxygen Flow Rate 35 Fraction of Inspired Oxygen 55 11/29/24 04:00 11/29/24 05:21 11/29/24 08:07 Temperature Pulse Rate 84 88 Respiratory Rate Blood Pressure Pulse Oximetry 94 Oxygen Delivery High Flow Therapy with Na Oxygen Flow Rate 35 Fraction of Inspired Oxygen 55 11/29/24 08:07 11/29/24 08:17 Temperature Pulse Rate 85 95 Respiratory Rate 16 16 Blood Pressure Pulse Oximetry Oxygen Delivery Oxygen Flow Rate Fraction of Inspired Oxygen Intake/Output Intake/Output: Intake & Output 11/26/24 11/27/24 11/28/24 11/29/24 23:59 23:59 23:59 23:59 Intake Total 3440 1270 1120 1050 Output Total 870 1250 1000 500 Balance 2570 20 120 550 Meds/Results Medications: Active Medications Generic Name Dose Route Start Last Admin Trade Name Freq PRN Reason Stop Dose Admin Acetaminophen 650 mg 11/13/24 21:48 11/26/24 18:19 Acetaminophen 325 Mg Tablet PO 650 mg Q4H PRN Administration Mild Pain (1-3) or Fever Acetylcysteine 200 mg 11/24/24 10:56 Acetylcysteine 20% Inhal Soln 800 Mg/4 Ml Vial INHALATION Q12HR PRN Congestion Acetylcysteine 200 mg 11/28/24 20:00 11/29/24 08:06 Acetylcysteine 20% Inhal Soln 800 Mg/4 Ml Vial INHALATION 200 mg Q12HRT DANE Administration Albuterol/Ipratropium 3 ml 11/23/24 11:56 11/23/24 15:00 Ipratropium 0.5 Mg/Albuterol Sulfate 2.5 Mg Ampul.Neb 3 Ml INHALATION 3 ml Q6HRT PRN Administration Dyspnea Albuterol/Ipratropium 3 ml 11/28/24 14:00 11/29/24 08:06 Ipratropium 0.5 Mg/Albuterol Sulfate 2.5 Mg Ampul.Neb 3 Ml INHALATION 3 ml Q6HRT DANE Administration Bupropion HCl 300 mg 11/14/24 09:00 11/28/24 09:42 Bupropion Hcl Xl (24 Hr) 150 Mg Tabcr BY MOUTH 300 mg DAILY DANE Administration Enoxaparin Sodium 40 mg 11/21/24 09:00 11/28/24 09:41 Enoxaparin 40 Mg/0.4 Ml Syringe SUB-Q 40 mg DAILY DANE Administration Ferrous Sulfate 325 mg 11/14/24 09:00 11/28/24 09:41 Ferrous Sulfate [address] BY MOUTH 325 mg DAILY DANE Administration Guaifenesin 1,200 mg 11/14/24 10:35 11/28/24 21:11 Guaifenesin 12 Hr 600 Mg Tabcr PO 1,200 mg Q12HR DANE Administration Levofloxacin/Dextrose 750 mg in 150 mls @ 100 mls/hr 11/26/24 08:00 11/28/24 09:43 Levaquin 750 Mg/D5w 150 Ml IVPB 100 mls/hr QAM DANE Administration Cefepime HCl 2 gm in 50 mls @ 100 mls/hr 11/27/24 13:00 11/29/24 05:35 Maxipime 2 Gm/Ns 50 Ml IVPB Infused Q8HR DANE Infusion Levetiracetam 500 mg 11/14/24 13:35 11/28/24 21:13 Levetiracetam 500 Mg Tablet PO 500 mg Q12HR DANE Administration Lidocaine 1 patch 11/14/24 09:00 11/28/24 09:43 Lidocaine 5% Patch TOPICAL 1 patch DAILY DANE Administration Loratadine 10 mg 11/27/24 13:10 11/28/24 09:42 Loratadine 10 Mg Tablet PO 10 mg QAM DANE Administration Midodrine 2.5 mg 11/14/24 09:00 11/28/24 17:06 Midodrine Hcl 2.5 Mg Tablet PO 2.5 mg BID DANE Administration Oxycodone HCl 10 mg 11/22/24 01:00 11/28/24 17:06 Oxycodone Hcl (*Crx) 5 Mg Tab Ir PO 10 mg BID@0100,0500 PRN Administration Breakthrough Pain Oxycodone HCl 10 mg 11/21/24 15:43 11/29/24 05:07 Oxycodone Hcl (*Crx) 5 Mg Tab Ir PO 10 mg Q4HR PRN Administration Pain Rated 4-6 Pantoprazole Sodium 40 mg 11/14/24 09:00 11/28/24 21:11 Pantoprazole 40 Mg Tablet PO 40 mg Q12HR DANE Administration Paroxetine HCl 40 mg 11/14/24 09:00 11/28/24 09:41 Paroxetine 20 Mg Tablet BY MOUTH 40 mg QAM DANE Administration Pregabalin 150 mg 11/14/24 09:00 11/28/24 17:06 Pregabalin (*Crx) 75 Mg Capsule PO 150 mg BID DANE Administration Sodium Chloride 1 spray 11/19/24 22:13 11/20/24 00:02 Saline 0.65% Meir Soln 44 Ml Btl NASAL 1 spray Q6HR PRN Administration Congestion Tizanidine HCl 4 mg 11/14/24 02:03 11/26/24 18:19 Tizanidine Hcl 4 Mg Tablet PO 4 mg TID PRN Administration muscle spasticity Trazodone HCl 100 mg 11/14/24 21:00 11/28/24 21:13 Trazodone Hcl 50 Mg Tablet PO 100 mg QHS DANE Administration Radiology Results: ITS Impressions Venous Doppler Study 11/20/24 19:54 IMPRESSION: Patent bilateral lower extremity veins. No evidence of deep venous thrombosis. Chest CTA 11/24/24 11:00 Impression: No evidence of pulmonary embolus, aortic dissection, or aortic aneurysm. Mild interval improvement in extensive right lung pneumonia/groundglass pulmonary disease. Complete left lower lobe atelectasis. Patchy small airways infection throughout the left upper lobe with extensive tree-in-bud opacities and nodularity similar to prior exam. Probable underlying chronic interstitial change extensively in the right lung base, especially right lower lobe. Mild emphysema. Chest CT 11/27/24 12:29 IMPRESSION: 1. Widespread pneumonia, left worse than right. 2. Mucous plugging in left mainstem bronchus. 3. 14 mm nodule in right lung lower lobe suspicious for primary bronchogenic carcinoma or metastatic disease. 4. Mild emphysema. Chest X-Ray 11/29/24 06:20 Impression: Stable extensive left lung consolidation and mild hazy right basilar airspace disease. Labs Labs: Laboratory Results - last 24 hr 11/29/24 04:31 WBC 9.4 RBC 4.30 L Hgb 11.1 L Hct 35.7 L MCV 83.0 MCH 25.8 L MCHC 31.1 L RDW 16.3 H Plt Count 342 MPV 10.3 Sodium 138 Potassium 4.2 Chloride 100 Carbon Dioxide 32 H Anion Gap 6 BUN 20 Creatinine 0.84 Estim Creat Clear Calc 74 Estimated GFR > 60 Glucose 93 Calcium 8.7
--- NOTE | 2024-11-29 08:36 | P.PNIM_ITS ---
Progress Note: A&P Assessment and Plan (1) Postobstructive pneumonia: Code(s): J18.9 - Pneumonia, unspecified organism Status: Acute Assessment and Plan: Slowly improving * CTA chest without PE. * Patchy bibasilar ground opacity suspicious for infection as well as left descending bronchus being largely obstructive with postobstructive consolidation noted as well. * Continue Cefepime and Levofloxacin completed 11/22. Flagyl discontinued. * Duoneb q 4. * Guaifenesin 1,200 mg PO q 12. * Cornet flutter valve to aid in sputum expectoration. * CPT * Dr. Mosley and Dr. Wilkins Pulmonologists following * Repeat CT scan in 3-6 weeks. * His urine streptococcal antigen from 11/14/2024 returned positive today. * Add PT/OT * Human Metapneumovirus from 11/17/24 is positive. * Echocardiogram EF 55-60%, grade 1 diastolic dysfunction * LE dopplers negative. * Chest CT 11/24 shows improvement * Blood cultures negative. * 11/25 patient placed back on cefepime and levofloxacin * 11/29 continues on high flow oxygen, SOB with activity (2) Influenza A: Code(s): J10.1 - Influenza due to other identified influenza virus with other respiratory manifestations Status: Acute Assessment and Plan: Improving * Influenza A positive. * Negative for COVID, RSV and Influenza B. * Tamiflu 75 mg PO q 12. Completed * High-flow nasal cannula, she had x-rays as able * Afebrile. (3) Pulmonary edema: Code(s): J81.1 - Chronic pulmonary edema Status: Acute Assessment and Plan: Improving Repeat chest x-ray in the morning slightly improved Echocardiogram 55-60% grade 1 diastolic dysfunction (4) COPD (chronic obstructive pulmonary disease): Qualifiers: COPD type: unspecified COPD Qualified Code(s): J44.9 - Chronic obstructive pulmonary disease, unspecified Code(s): J44.9 - Chronic obstructive pulmonary disease, unspecified Status: Acute Assessment and Plan: * Duoneb q4 * Continue Cefepime and Levofloxacin. Flagyl discontinued. * Guaifenesin 1,200 mg PO q 12. * Pulmonology consulted (5) Hypokalemia: Code(s): E87.6 - Hypokalemia Status: Acute Assessment and Plan: * Improved * Monitor labs. * Replete as needed (6) Back pain: Qualifiers: Back pain laterality: unspecified Back pain location: thoracic back pain Chronicity: unspecified Qualified Code(s): M54.6 - Pain in thoracic spine Code(s): M54.9 - Dorsalgia, unspecified Status: Acute Assessment and Plan: * Oxycodone for pain. * And muscle relaxer (7) Nodule of right lung: Code(s): R91.1 - Solitary pulmonary nodule Status: Acute Assessment and Plan: 11/27 CT 14 mm nodule in right lung lower lobe suspicious for primary bronchogenic carcinoma or metastatic disease. Not seen in previous CTs Pulmonology on board Plan full code Time Spent With Patient Time with patient: Greater than 35 minutes Subjective Date/time seen: 11/29/24 08:36 Interval history: 64-year-old male with a past medical history to tobacco abuse, COPD, lung cancer status post right middle lobe lobectomy in 2019, vitamin B12 deficiency, iron deficiency anemia, chronic pain and chronic opioid use, GERD, hypotension who presents with shortness of breath for about a week found to have influenza a pneumonia. Restarted antibiotic therapy on 11/25/24 for nosocomial pneumonia. Leukocytosis improving. Patient states that he is doing about the same as yesterday. Still short of breath when he gets up and moves. He remains on high flow oxygen. Denies chest pain, N/V/D, headache or dizziness. Review of Systems Review of Systems: All systems reviewed & are unremarkable except as noted in HPI and below Constitutional: Constitutional: Reports no additional constitutional complaints Eyes: Eyes: Reports no additional eye complaints ENT: Reports system reviewed and no additional complaints, except as documented Cardiovascular: Cardiovascular: Reports no additional cardiovascular complaints Respiratory: Respiratory: Reports cough, Reports dyspnea and Reports dyspnea on exertion Gastrointestinal: Gastrointestinal: Reports no additional gastrointestinal complaints Musculoskeletal: Musculoskeletal: Reports no additional musculoskeletal complaints Neurologic: Reports system reviewed and no additional complaints, except as documented Exam Const: General: comfortable, no acute distress, alert, awake and ill appearing HENMT: Head: normal to inspection and normocephalic Eyes: General: appearance normal, both eyes and all related structures Pupils: Equal, round and reactive pupils present Neck: Neck: full ROM, no lymphadenopathy and supple Chest: Chest palpation & inspection: normal inspection of the chest Resp: Effort & Inspection: normal respiratory effort Auscultation: crackles, rhonchi throughout and diminished lung sounds Other: improved air movement. Faint crackles. Cardio: Rate: regular rate Rhythm: regular rhythm Heart sounds: S1 normal heart sound present and S2 normal heart sound present Other: Telemetry SR 80 GI: Inspection: normal to inspection GI Palp: Yes Soft to palpation Auscultation: normal bowel sounds Skin: General skin exam: normal color and rashes and/or lesions noted Neuro: General: patient oriented x3 Cranial nerves: Yes CN's II-XII intact bilaterally and Yes Equal, round and reactive pupils present Speech: normal speech Extrem: General: normal to inspection, full ROM, no edema and no pedal edema Psych: Mental Status: mental status grossly normal Affect: normal affect Objective Data Vital Signs Vital Signs: Vital Signs - 24 hr 11/28/24 10:00 11/28/24 10:02 11/28/24 10:02 Temperature Pulse Rate 81 84 Respiratory Rate 20 Blood Pressure Pulse Oximetry 95 Oxygen Delivery High Flow Therapy with Na Oxygen Flow Rate 35 Fraction of Inspired Oxygen 45 11/28/24 10:18 11/28/24 12:00 11/28/24 12:00 Temperature 97.9 F Pulse Rate 85 85 Respiratory Rate 20 12 Blood Pressure 113/66 Pulse Oximetry 97 97 Oxygen Delivery High Flow Therapy with Na Oxygen Flow Rate 35 Fraction of Inspired Oxygen 45 11/28/24 12:00 11/28/24 14:00 11/28/24 15:12 Temperature Pulse Rate 84 92 Respiratory Rate Blood Pressure Pulse Oximetry 93 Oxygen Delivery High Flow Therapy with Na Oxygen Flow Rate 35 Fraction of Inspired Oxygen 45 11/28/24 15:13 11/28/24 15:26 11/28/24 15:27 Temperature Pulse Rate 95 93 Respiratory Rate 20 20 Blood Pressure Pulse Oximetry Oxygen Delivery High Flow Therapy with Na Oxygen Flow Rate 35 Fraction of Inspired Oxygen 11/28/24 16:00 11/28/24 16:00 11/28/24 16:00 Temperature 98.3 F Pulse Rate 98 101 H Respiratory Rate 16 Blood Pressure 127/75 Pulse Oximetry 93 93 Oxygen Delivery High Flow Therapy with Na Oxygen Flow Rate 35 Fraction of Inspired Oxygen 45 11/28/24 18:00 11/28/24 20:00 11/28/24 20:00 Temperature Pulse Rate 92 94 94 Respiratory Rate 16 Blood Pressure Pulse Oximetry 94 Oxygen Delivery High Flow Therapy with Na Oxygen Flow Rate 35 Fraction of Inspired Oxygen 45 11/28/24 20:02 11/28/24 20:15 11/28/24 20:15 Temperature 98.4 F Pulse Rate 92 90 Respiratory Rate 20 16 Blood Pressure 114/75 Pulse Oximetry 93 94 Oxygen Delivery High Flow Therapy with Na Oxygen Flow Rate 35 Fraction of Inspired Oxygen 45 11/28/24 20:22 11/28/24 21:00 11/28/24 22:00 Temperature Pulse Rate 88 86 86 Respiratory Rate 16 16 Blood Pressure Pulse Oximetry 94 Oxygen Delivery High Flow Therapy with Na Oxygen Flow Rate 35 Fraction of Inspired Oxygen 55 11/29/24 00:00 11/29/24 00:00 11/29/24 00:21 Temperature 98.5 F Pulse Rate 86 82 92 Respiratory Rate 16 20 Blood Pressure 118/68 Pulse Oximetry 94 93 Oxygen Delivery High Flow Therapy with Na Oxygen Flow Rate 35 Fraction of Inspired Oxygen 55 11/29/24 02:00 11/29/24 02:05 11/29/24 02:05 Temperature Pulse Rate 90 91 Respiratory Rate 16 Blood Pressure Pulse Oximetry 93 Oxygen Delivery High Flow Therapy with Na Oxygen Flow Rate 35 Fraction of Inspired Oxygen 55 11/29/24 02:12 11/29/24 03:36 11/29/24 04:00 Temperature 98.7 F Pulse Rate 94 84 84 Respiratory Rate 16 20 20 Blood Pressure 120/78 Pulse Oximetry 94 94 Oxygen Delivery High Flow Therapy with Na Oxygen Flow Rate 35 Fraction of Inspired Oxygen 55 11/29/24 04:00 11/29/24 05:21 11/29/24 08:07 Temperature Pulse Rate 84 88 Respiratory Rate Blood Pressure Pulse Oximetry 94 Oxygen Delivery High Flow Therapy with Na Oxygen Flow Rate 35 Fraction of Inspired Oxygen 55 11/29/24 08:07 11/29/24 08:17 Temperature Pulse Rate 85 95 Respiratory Rate 16 16 Blood Pressure Pulse Oximetry Oxygen Delivery Oxygen Flow Rate Fraction of Inspired Oxygen Intake/Output Intake/Output: Intake & Output 11/26/24 11/27/24 11/28/24 11/29/24 23:59 23:59 23:59 23:59 Intake Total 3440 1270 1120 1050 Output Total 870 1250 1000 500 Balance 2570 20 120 550 Meds/Results Medications: Active Medications Generic Name Dose Route Start Last Admin Trade Name Freq PRN Reason Stop Dose Admin Acetaminophen 650 mg 11/13/24 21:48 11/26/24 18:19 Acetaminophen 325 Mg Tablet PO 650 mg Q4H PRN Administration Mild Pain (1-3) or Fever Acetylcysteine 200 mg 11/24/24 10:56 Acetylcysteine 20% Inhal Soln 800 Mg/4 Ml Vial INHALATION Q12HR PRN Congestion Acetylcysteine 200 mg 11/28/24 20:00 11/29/24 08:06 Acetylcysteine 20% Inhal Soln 800 Mg/4 Ml Vial INHALATION 200 mg Q12HRT DANE Administration Albuterol/Ipratropium 3 ml 11/23/24 11:56 11/23/24 15:00 Ipratropium 0.5 Mg/Albuterol Sulfate 2.5 Mg Ampul.Neb 3 Ml INHALATION 3 ml Q6HRT PRN Administration Dyspnea Albuterol/Ipratropium 3 ml 11/28/24 14:00 11/29/24 08:06 Ipratropium 0.5 Mg/Albuterol Sulfate 2.5 Mg Ampul.Neb 3 Ml INHALATION 3 ml Q6HRT DANE Administration Bupropion HCl 300 mg 11/14/24 09:00 11/28/24 09:42 Bupropion Hcl Xl (24 Hr) 150 Mg Tabcr BY MOUTH 300 mg DAILY DANE Administration Enoxaparin Sodium 40 mg 11/21/24 09:00 11/28/24 09:41 Enoxaparin 40 Mg/0.4 Ml Syringe SUB-Q 40 mg DAILY DANE Administration Ferrous Sulfate 325 mg 11/14/24 09:00 11/28/24 09:41 Ferrous Sulfate [address] BY MOUTH 325 mg DAILY DANE Administration Guaifenesin 1,200 mg 11/14/24 10:35 11/28/24 21:11 Guaifenesin 12 Hr 600 Mg Tabcr PO 1,200 mg Q12HR DANE Administration Levofloxacin/Dextrose 750 mg in 150 mls @ 100 mls/hr 11/26/24 08:00 11/28/24 09:43 Levaquin 750 Mg/D5w 150 Ml IVPB 100 mls/hr QAM DANE Administration Cefepime HCl 2 gm in 50 mls @ 100 mls/hr 11/27/24 13:00 11/29/24 05:35 Maxipime 2 Gm/Ns 50 Ml IVPB Infused Q8HR DANE Infusion Levetiracetam 500 mg 11/14/24 13:35 11/28/24 21:13 Levetiracetam 500 Mg Tablet PO 500 mg Q12HR DANE Administration Lidocaine 1 patch 11/14/24 09:00 11/28/24 09:43 Lidocaine 5% Patch TOPICAL 1 patch DAILY DANE Administration Loratadine 10 mg 11/27/24 13:10 11/28/24 09:42 Loratadine 10 Mg Tablet PO 10 mg QAM DANE Administration Midodrine 2.5 mg 11/14/24 09:00 11/28/24 17:06 Midodrine Hcl 2.5 Mg Tablet PO 2.5 mg BID DANE Administration Oxycodone HCl 10 mg 11/22/24 01:00 11/28/24 17:06 Oxycodone Hcl (*Crx) 5 Mg Tab Ir PO 10 mg BID@0100,0500 PRN Administration Breakthrough Pain Oxycodone HCl 10 mg 11/21/24 15:43 11/29/24 05:07 Oxycodone Hcl (*Crx) 5 Mg Tab Ir PO 10 mg Q4HR PRN Administration Pain Rated 4-6 Pantoprazole Sodium 40 mg 11/14/24 09:00 11/28/24 21:11 Pantoprazole 40 Mg Tablet PO 40 mg Q12HR DANE Administration Paroxetine HCl 40 mg 11/14/24 09:00 11/28/24 09:41 Paroxetine 20 Mg Tablet BY MOUTH 40 mg QAM DANE Administration Pregabalin 150 mg 11/14/24 09:00 11/28/24 17:06 Pregabalin (*Crx) 75 Mg Capsule PO 150 mg BID DANE Administration Sodium Chloride 1 spray 11/19/24 22:13 11/20/24 00:02 Saline 0.65% Meir Soln 44 Ml Btl NASAL 1 spray Q6HR PRN Administration Congestion Tizanidine HCl 4 mg 11/14/24 02:03 11/26/24 18:19 Tizanidine Hcl 4 Mg Tablet PO 4 mg TID PRN Administration muscle spasticity Trazodone HCl 100 mg 11/14/24 21:00 11/28/24 21:13 Trazodone Hcl 50 Mg Tablet PO 100 mg QHS DANE Administration Radiology Results: ITS Impressions Venous Doppler Study 11/20/24 19:54 IMPRESSION: Patent bilateral lower extremity veins. No evidence of deep venous thrombosis. Chest CTA 11/24/24 11:00 Impression: No evidence of pulmonary embolus, aortic dissection, or aortic aneurysm. Mild interval improvement in extensive right lung pneumonia/groundglass pulmonary disease. Complete left lower lobe atelectasis. Patchy small airways infection throughout the left upper lobe with extensive tree-in-bud opacities and nodularity similar to prior exam. Probable underlying chronic interstitial change extensively in the right lung base, especially right lower lobe. Mild emphysema. Chest CT 11/27/24 12:29 IMPRESSION: 1. Widespread pneumonia, left worse than right. 2. Mucous plugging in left mainstem bronchus. 3. 14 mm nodule in right lung lower lobe suspicious for primary bronchogenic carcinoma or metastatic disease. 4. Mild emphysema. Chest X-Ray 11/29/24 06:20 Impression: Stable extensive left lung consolidation and mild hazy right basilar airspace disease. Labs Labs: Laboratory Results - last 24 hr 11/29/24 04:31 WBC 9.4 RBC 4.30 L Hgb 11.1 L Hct 35.7 L MCV 83.0 MCH 25.8 L MCHC 31.1 L RDW 16.3 H Plt Count 342 MPV 10.3 Sodium 138 Potassium 4.2 Chloride 100 Carbon Dioxide 32 H Anion Gap 6 BUN 20 Creatinine 0.84 Estim Creat Clear Calc 74 Estimated GFR > 60 Glucose 93 Calcium 8.7 Quality VTE Prophylaxis VTE prophylaxis: mechanical ordered and pharmacologic ordered Hospitalist [facility] Advance Care Plan I have confirmed that the patient's Advanced Care Plan is present, code status is documented, or surrogate decision maker is listed in patient medical record.: Yes Medication Reconciliation I have utilized all available resources to obtain, update and review the patients current medications (includes all prescriptions, OTC, herbals, cannabis, and nutritional supplements).: Yes
[2024-11-29] MEDS: PARoxetine 20 MG TABLET 40 MG BY MOUTH (09:08)
[2024-11-29] MEDS: buPROPion HCL XL (24 HR) 150 MG TABCR 300 MG BY MOUTH (09:08)
[2024-11-29] MEDS: ENOXAPARIN 40 MG/0.4 ML SYRINGE SUB-Q (09:09)
[2024-11-29] MEDS: PREGABALIN (*CRX) 75 MG CAPSULE 150 MG PO ×2 (09:09→16:50)
[2024-11-29] MEDS: guaiFENesin 12 HR 600 MG TABCR 1200 MG PO ×2 (09:09→21:06)
[2024-11-29] MEDS: LORATADINE 10 MG TABLET PO (09:09)
[2024-11-29] MEDS: PANTOPRAZOLE 40 MG TABLET PO ×2 (09:09→21:06)
[2024-11-29] MEDS: MIDODRINE HCL 2.5 MG TABLET PO ×2 (09:09→16:50)
[2024-11-29] MEDS: levETIRAcetam 500 MG TABLET PO ×2 (09:09→21:06)
[2024-11-29] MEDS: FERROUS SULFATE 325 MG TABLET DR BY MOUTH (09:09)
[2024-11-29] MEDS: LIDOCAINE 5% PATCH 1 PATCH TOPICAL (09:10)
[2024-11-29] MEDS: levoFLOXacin 750 MG/D5W 150 ML 750 MG/150 ML BAG 100 MG IVPB (09:10)
[2024-11-29] MEDS: ACETAMINOPHEN 325 MG TABLET 650 MG PO ×2 (12:29→21:11)
--- NOTE | 2024-11-29 14:33 | PCPTNOTE ---
Patient refused treatment this session. Patient reported he just felt too weak today and did not want to do PT or get up to chair. Encouraged patient for participation, patient continued to refuse.
[2024-11-29] MEDS: traZODone HCL 50 MG TABLET 100 MG PO (21:06)
[2024-11-30] VITALS (26 sets, daily range): BP systolic 100–115; BP diastolic 60–75; PULSE 71–101; RESP 16–24; TEMP 36.6–37; O2SAT 92–100
[2024-11-30] MEDS: IPRATROPIUM 0.5 MG/ALBUTEROL SULFATE 2.5 MG AMPUL.NEB 3 ML INHALATION ×4 (01:41→21:58)
[2024-11-30] MEDS: oxyCODONE HCL (*CRX) 5 MG TAB IR 10 MG PO ×5 (04:27→22:16)
[2024-11-30] MEDS: CEFEPIME 2 GM/NS 50 ML 2 GM/50 ML BAG IVPB ×3 (05:13→21:39)
[2024-11-30 05:46] LABS: Basophils Absolute Auto 0.1 K/mm3 (0.0-0.1); Basophils Percent Auto 1.4 % (0.2-1.2); Eosinophils Absolute Auto 0.6 K/mm3 (0-0.3); Eosinophils Percent Auto 8.6 % (0-4.4); Hemoglobin 10.8 g/dL (14.0-18.0); Immature Granulocyte Absolute 0.14 K/mm3 (0.00-0.031); Immature Granulocyte Percent A 1.9 % (0-0.5); Lymphocytes Absolute Auto 1.03 K/mm3 (0.9-3.2); Lymphocytes Percent Auto 13.9 % (18.3-44.2); Mean Corpuscular Hemoglobin 25.4 pg (26-34); Mean Corpuscular Volume 84.7 fl (80-100); Mean Platelet Volume 9.7 fl (7.4-10.4); Monocytes Absolute Auto 0.8 K/mm3 (0.1-0.6); Monocytes Percent Auto 10.4 % (2.6-8.5); Neutrophils Absolute Auto 4.7 K/mm3 (1.3-6.7); Neutrophils Percent Auto 63.8 % (45.5-73.1); Platelet Count Result 369 k/mm3 (150-375); Red Blood Count 4.25 M/mm3 (4.6-6.20); Red Cell Distribution Width 16.3 % (11.5-14.5); White Blood Count 7.4 K/mm3 (4.5-10.0)
[2024-11-30 06:19] LABS: Alanine Aminotransferase 19 U/L (6-50); Alkaline Phosphatase 71 U/L (38-126); Anion Gap 5 mmol/L (4-12); Aspartate Amino Transferase 33 U/L (17-59); Bilirubin,Total 0.5 mg/dL (0.2-1.3); Blood Urea Nitrogen 23 mg/dL (9-20); Calcium 8.9 mg/dL (8.4-10.2); Carbon Dioxide 33 mmol/L (22-30); Chloride 101 mmol/L (98-107); Estimated CRCL calculation 68 ml/min; Estimated Glomerular Filt Rate > 60; Glucose 107 mg/dL (65-110); Magnesium 2.2 mg/dL (1.6-2.3); Potassium 4.2 mmol/L (3.4-5.0); Sodium 139 mmol/L (137-145)
[2024-11-30] MEDS: ACETYLCYSTEINE 20% INHAL SOLN 800 MG/4 ML VIAL 200 MG INHALATION ×2 (07:16→21:58)
--- NOTE | 2024-11-30 07:44 | PM.IMPN ---
Progress Note: A&P Assessment and Plan (1) Postobstructive pneumonia: Code(s): J18.9 - Pneumonia, unspecified organism Status: Acute Assessment and Plan: Slowly improving CTA chest without PE. Patchy bibasilar ground opacity suspicious for infection as well as left descending bronchus being largely obstructive with postobstructive consolidation noted as well. Continue Cefepime and Levofloxacin completed 11/22. Flagyl discontinued. Duoneb q 4. Guaifenesin 1,200 mg PO q 12. Cornet flutter valve to aid in sputum expectoration. CPT Dr. Mosley and Dr. Wilkins Pulmonologists following Repeat CT scan in 3-6 weeks. His urine streptococcal antigen from 11/14/2024 returned positive today. Add PT/OT Human Metapneumovirus from 11/17/24 is positive. Echocardiogram EF 55-60%, grade 1 diastolic dysfunction LE dopplers negative. Chest CT 11/24 shows improvement Blood cultures negative. 11/25 patient placed back on cefepime and levofloxacin 11/29 continues on high flow oxygen, SOB with activity 11/30 - reports he is able to expecotrate sputum, -will being to wean down high flow oxygen today - repeat CXR in am (2) Influenza A: Code(s): J10.1 - Influenza due to other identified influenza virus with other respiratory manifestations Status: Acute Assessment and Plan: Improving Influenza A positive. Negative for COVID, RSV and Influenza B. Tamiflu 75 mg PO q 12. Completed High-flow nasal cannula, she had x-rays as able Afebrile. (3) Pulmonary edema: Code(s): J81.1 - Chronic pulmonary edema Status: Acute Assessment and Plan: Improving Repeat chest x-ray in the morning slightly improved Echocardiogram 55-60% grade 1 diastolic dysfunction (4) COPD (chronic obstructive pulmonary disease): Qualifiers: COPD type: unspecified COPD Qualified Code(s): J44.9 - Chronic obstructive pulmonary disease, unspecified Code(s): J44.9 - Chronic obstructive pulmonary disease, unspecified Status: Acute Assessment and Plan: Duoneb q4 Continue Cefepime and Levofloxacin. Flagyl discontinued. Guaifenesin 1,200 mg PO q 12. Pulmonology consulted (5) Hypokalemia: Code(s): E87.6 - Hypokalemia Status: Acute Assessment and Plan: Improved Monitor labs. Replete as needed (6) Back pain: Qualifiers: Back pain laterality: unspecified Back pain location: thoracic back pain Chronicity: unspecified Qualified Code(s): M54.6 - Pain in thoracic spine Code(s): M54.9 - Dorsalgia, unspecified Status: Acute Assessment and Plan: Oxycodone for pain. And muscle relaxer (7) Nodule of right lung: Code(s): R91.1 - Solitary pulmonary nodule Status: Acute Assessment and Plan: 11/27 CT 14 mm nodule in right lung lower lobe suspicious for primary bronchogenic carcinoma or metastatic disease. Not seen in previous CTs Pulmonology on board Plan full code Time Spent With Patient Time with patient: Greater than 35 minutes (40 minutes) Subjective Date/time seen: 11/30/24 07:44 Interval history: 64-year-old male with a past medical history to tobacco abuse, COPD, lung cancer status post right middle lobe lobectomy in 2019, vitamin B12 deficiency, iron deficiency anemia, chronic pain and chronic opioid use, GERD, hypotension who presents with shortness of breath for about a week found to have influenza a pneumonia. Restarted antibiotic therapy on 11/25/24 for nosocomial pneumonia. Leukocytosis improving. Patient states that he is doing about the same as yesterday. He did admit to being able to expectorate more sputum today. Still short of breath when he gets up and moves. He remains on high flow oxygen. Denies chest pain, N/V/D, headache or dizziness. Review of Systems Review of Systems: All systems reviewed & are unremarkable except as noted in HPI and below Constitutional: Constitutional: Reports no additional constitutional complaints Eyes: Eyes: Reports no additional eye complaints ENT: Reports system reviewed and no additional complaints, except as documented Cardiovascular: Cardiovascular: Reports no additional cardiovascular complaints, Reports dyspnea and Reports dyspnea on exertion Respiratory: Respiratory: Reports cough, Reports dyspnea and Reports dyspnea on exertion Gastrointestinal: Gastrointestinal: Reports no additional gastrointestinal complaints Musculoskeletal: Musculoskeletal: Reports no additional musculoskeletal complaints Neurologic: Reports system reviewed and no additional complaints, except as documented Exam Narrative: General: Ill-appearing HEENT: normocephalic, atraumatic. Mucous membranes moist. EOMI, PERRLA, bilateral sclera anicteric, no conjunctival injection. Neck supple without JVD, lymphadenopathy, or bruit. Respiratory: Diminished to ascultation bilaterally. Cardiovascular: Regular rate and rhythm, normal S1-S2 upon ascultation. No murmurs, rubs, or clicks. PMI is nondisplaced, capillary refill less than 3 second. Abdomen: Soft, round, no pulsatile masses, nondistended and nontender. No rebound, no guarding. No CVA tenderness, no hepatosplenomegaly. Bowel sounds present to all four quadrants. No high pitch or tinkling sounds, resonant to percussion. Extremities: No cyanosis, clubbing, or edema present. Pulses are palpable 2/2. Active ROM to all four extremities. Neuro: Alert and orientated x 4. PERRLA. Cranial nerves 2-12 intact without focal deficit. Skin: Warm, dry, and intact, without rash, erythema, or lesion. Psych: pleasant, cooperative, normal speech, normal affect, no hallucinations, no dysarthia High-flow nasal cannula Const: General: comfortable, no acute distress, alert, awake, ill appearing and uncomfortable Orientation/consciousness: patient oriented x3 HENMT: Head: normal to inspection and normocephalic Eyes: General: appearance normal, both eyes and all related structures Pupils: Equal, round and reactive pupils present Neck: Neck: full ROM, no lymphadenopathy and supple Chest: Chest palpation & inspection: normal inspection of the chest Resp: Effort & Inspection: normal respiratory effort Auscultation: clear to auscultation bilaterally, crackles, rhonchi throughout and diminished lung sounds Other: improved air movement. Faint crackles. Cardio: Rate: regular rate Rhythm: regular rhythm Heart sounds: S1 normal heart sound present and S2 normal heart sound present Other: Telemetry SR 80 GI: Inspection: normal to inspection Auscultation: normal bowel sounds Skin: General skin exam: normal color and rashes and/or lesions noted Neuro: General: patient oriented x3 Cranial nerves: Yes CN's II-XII intact bilaterally and Yes Equal, round and reactive pupils present Speech: normal speech Extrem: General: normal to inspection, full ROM, no edema and no pedal edema Psych: Mental Status: mental status grossly normal Affect: normal affect Objective Data Vital Signs Vital Signs: Vital Signs - 24 hr 11/29/24 08:00 11/29/24 08:00 11/29/24 08:00 Temperature 97.8 F Pulse Rate 86 87 Respiratory Rate 26 H Blood Pressure 121/69 Pulse Oximetry 99 99 Oxygen Delivery High Flow Therapy with Na Oxygen Flow Rate 35 Fraction of Inspired Oxygen 55 11/29/24 08:07 11/29/24 08:07 11/29/24 08:17 Temperature Pulse Rate 85 95 Respiratory Rate 16 16 Blood Pressure Pulse Oximetry 94 Oxygen Delivery High Flow Therapy with Na Oxygen Flow Rate 35 Fraction of Inspired Oxygen 55 11/29/24 10:00 11/29/24 12:00 11/29/24 12:00 Temperature 98.2 F Pulse Rate 85 80 Respiratory Rate 20 Blood Pressure 114/67 Pulse Oximetry 98 98 Oxygen Delivery High Flow Therapy with Na Oxygen Flow Rate 35 Fraction of Inspired Oxygen 55 11/29/24 12:00 11/29/24 13:02 11/29/24 13:12 Temperature Pulse Rate 82 83 79 Respiratory Rate 20 18 Blood Pressure Pulse Oximetry Oxygen Delivery Oxygen Flow Rate Fraction of Inspired Oxygen 11/29/24 14:00 11/29/24 16:00 11/29/24 16:00 Temperature 97.8 F Pulse Rate 79 83 Respiratory Rate 24 H Blood Pressure 111/65 Pulse Oximetry 98 99 Oxygen Delivery High Flow Therapy with Na Oxygen Flow Rate 35 Fraction of Inspired Oxygen 55 11/29/24 16:00 11/29/24 18:00 11/29/24 19:30 Temperature Pulse Rate 80 80 Respiratory Rate Blood Pressure Pulse Oximetry 96 Oxygen Delivery High Flow Therapy with Na Oxygen Flow Rate 35 Fraction of Inspired Oxygen 55 11/29/24 19:33 11/29/24 19:43 11/29/24 20:00 Temperature Pulse Rate 88 89 93 Respiratory Rate 18 18 22 H Blood Pressure Pulse Oximetry 95 Oxygen Delivery High Flow Therapy with Na Oxygen Flow Rate 35 Fraction of Inspired Oxygen 55 11/29/24 20:00 11/29/24 20:51 11/29/24 22:00 Temperature 98.3 F Pulse Rate 98 93 92 Respiratory Rate 22 H Blood Pressure 119/72 Pulse Oximetry 95 Oxygen Delivery Oxygen Flow Rate Fraction of Inspired Oxygen 11/29/24 23:44 11/29/24 23:44 11/30/24 00:03 Temperature 98.6 F Pulse Rate 88 92 81 Respiratory Rate 22 H 20 Blood Pressure 104/63 Pulse Oximetry 95 99 Oxygen Delivery High Flow Therapy with Na Oxygen Flow Rate 35 Fraction of Inspired Oxygen 55 11/30/24 01:44 11/30/24 01:49 11/30/24 02:00 Temperature Pulse Rate 78 81 84 Respiratory Rate 18 18 Blood Pressure Pulse Oximetry Oxygen Delivery Oxygen Flow Rate Fraction of Inspired Oxygen 11/30/24 04:00 11/30/24 04:00 11/30/24 05:13 Temperature 98.2 F Pulse Rate 79 79 81 Respiratory Rate 18 20 Blood Pressure 115/71 Pulse Oximetry 99 96 Oxygen Delivery High Flow Therapy with Na Oxygen Flow Rate 35 Fraction of Inspired Oxygen 55 11/30/24 06:00 11/30/24 07:16 11/30/24 07:16 Temperature Pulse Rate 84 72 Respiratory Rate 16 Blood Pressure Pulse Oximetry 100 Oxygen Delivery High Flow Therapy with Na Oxygen Flow Rate 35 Fraction of Inspired Oxygen 55 Intake/Output Intake/Output: Intake & Output 11/27/24 11/28/24 11/29/24 11/30/24 23:59 23:59 23:59 23:59 Intake Total 1270 1270 1940 450 Output Total 1250 1000 1050 550 Balance 20 270 890 -100 Meds/Results Medications: Active Medications Generic Name Dose Route Start Last Admin Trade Name Freq PRN Reason Stop Dose Admin Acetaminophen 650 mg 11/13/24 21:48 11/29/24 21:11 Acetaminophen 325 Mg Tablet PO 650 mg Q4H PRN Administration Mild Pain (1-3) or Fever Acetylcysteine 200 mg 11/24/24 10:56 Acetylcysteine 20% Inhal Soln 800 Mg/4 Ml Vial INHALATION Q12HR PRN Congestion Acetylcysteine 200 mg 11/28/24 20:00 11/30/24 07:16 Acetylcysteine 20% Inhal Soln 800 Mg/4 Ml Vial INHALATION 200 mg Q12HRT DANE Administration Albuterol/Ipratropium 3 ml 11/23/24 11:56 11/23/24 15:00 Ipratropium 0.5 Mg/Albuterol Sulfate 2.5 Mg Ampul.Neb 3 Ml INHALATION 3 ml Q6HRT PRN Administration Dyspnea Albuterol/Ipratropium 3 ml 11/28/24 14:00 11/30/24 07:16 Ipratropium 0.5 Mg/Albuterol Sulfate 2.5 Mg Ampul.Neb 3 Ml INHALATION 3 ml Q6HRT DANE Administration Bupropion HCl 300 mg 11/14/24 09:00 11/29/24 09:08 Bupropion Hcl Xl (24 Hr) 150 Mg Tabcr BY MOUTH 300 mg DAILY DANE Administration Enoxaparin Sodium 40 mg 11/21/24 09:00 11/29/24 09:09 Enoxaparin 40 Mg/0.4 Ml Syringe SUB-Q 40 mg DAILY DANE Administration Ferrous Sulfate 325 mg 11/14/24 09:00 11/29/24 09:09 Ferrous Sulfate [address] BY MOUTH 325 mg DAILY DANE Administration Guaifenesin 1,200 mg 11/14/24 10:35 11/29/24 21:06 Guaifenesin 12 Hr 600 Mg Tabcr PO 1,200 mg Q12HR DANE Administration Levofloxacin/Dextrose 750 mg in 150 mls @ 100 mls/hr 11/26/24 08:00 11/29/24 09:10 Levaquin 750 Mg/D5w 150 Ml IVPB 100 mls/hr QAM DANE Administration Cefepime HCl 2 gm in 50 mls @ 100 mls/hr 11/27/24 13:00 11/30/24 05:45 Maxipime 2 Gm/Ns 50 Ml IVPB Infused Q8HR DANE Infusion Levetiracetam 500 mg 11/14/24 13:35 11/29/24 21:06 Levetiracetam 500 Mg Tablet PO 500 mg Q12HR DANE Administration Lidocaine 1 patch 11/14/24 09:00 11/29/24 09:10 Lidocaine 5% Patch TOPICAL 1 patch DAILY DANE Administration Loratadine 10 mg 11/27/24 13:10 11/29/24 09:09 Loratadine 10 Mg Tablet PO 10 mg QAM DANE Administration Midodrine 2.5 mg 11/14/24 09:00 11/29/24 16:50 Midodrine Hcl 2.5 Mg Tablet PO 2.5 mg BID DANE Administration Oxycodone HCl 10 mg 11/22/24 01:00 11/28/24 17:06 Oxycodone Hcl (*Crx) 5 Mg Tab Ir PO 10 mg BID@0100,0500 PRN Administration Breakthrough Pain Oxycodone HCl 10 mg 11/21/24 15:43 11/30/24 04:27 Oxycodone Hcl (*Crx) 5 Mg Tab Ir PO 10 mg Q4HR PRN Administration Pain Rated 4-6 Pantoprazole Sodium 40 mg 11/14/24 09:00 11/29/24 21:06 Pantoprazole 40 Mg Tablet PO 40 mg Q12HR DANE Administration Paroxetine HCl 40 mg 11/14/24 09:00 11/29/24 09:08 Paroxetine 20 Mg Tablet BY MOUTH 40 mg QAM DANE Administration Pregabalin 150 mg 11/14/24 09:00 11/29/24 16:50 Pregabalin (*Crx) 75 Mg Capsule PO 150 mg BID DANE Administration Sodium Chloride 1 spray 11/19/24 22:13 11/20/24 00:02 Saline 0.65% Meir Soln 44 Ml Btl NASAL 1 spray Q6HR PRN Administration Congestion Tizanidine HCl 4 mg 11/14/24 02:03 11/26/24 18:19 Tizanidine Hcl 4 Mg Tablet PO 4 mg TID PRN Administration muscle spasticity Trazodone HCl 100 mg 11/14/24 21:00 11/29/24 21:06 Trazodone Hcl 50 Mg Tablet PO 100 mg QHS DANE Administration Radiology Results: ITS Impressions Venous Doppler Study 11/20/24 19:54 IMPRESSION: Patent bilateral lower extremity veins. No evidence of deep venous thrombosis. Chest CTA 11/24/24 11:00 Impression: No evidence of pulmonary embolus, aortic dissection, or aortic aneurysm. Mild interval improvement in extensive right lung pneumonia/groundglass pulmonary disease. Complete left lower lobe atelectasis. Patchy small airways infection throughout the left upper lobe with extensive tree-in-bud opacities and nodularity similar to prior exam. Probable underlying chronic interstitial change extensively in the right lung base, especially right lower lobe. Mild emphysema. Chest CT 11/27/24 12:29 IMPRESSION: 1. Widespread pneumonia, left worse than right. 2. Mucous plugging in left mainstem bronchus. 3. 14 mm nodule in right lung lower lobe suspicious for primary bronchogenic carcinoma or metastatic disease. 4. Mild emphysema. Chest X-Ray 11/29/24 06:20 Impression: Stable extensive left lung consolidation and mild hazy right basilar airspace disease. Labs Labs: Laboratory Results - last 24 hr 11/30/24 04:35 WBC 7.4 RBC 4.25 L Hgb 10.8 L Hct 36.0 L MCV 84.7 MCH 25.4 L MCHC 30.0 L RDW 16.3 H Plt Count 369 MPV 9.7 Immature Gran % (Auto) 1.9 H Neut % (Auto) 63.8 Lymph % (Auto) 13.9 L Wilkinson % (Auto) 10.4 H Eos % (Auto) 8.6 H Baso % (Auto) 1.4 H Lymph # (Auto) 1.03 Wilkinson # (Auto) 0.8 H Eos # (Auto) 0.6 H Baso # (Auto) 0.1 Abs Immat Gran (auto) 0.14 H Absolute Neuts (auto) 4.7 Absolute Nucleated RBC 0.000 Nucleated RBC % 0.0 Sodium 139 Potassium 4.2 Chloride 101 Carbon Dioxide 33 H Anion Gap 5 BUN 23 H Creatinine 0.92 Estim Creat Clear Calc 68 Estimated GFR > 60 Glucose 107 Calcium 8.9 Magnesium 2.2 Total Bilirubin 0.5 AST 33 ALT 19 Alkaline Phosphatase 71 Total Protein 7.0 Albumin 3.0 L Quality VTE Prophylaxis VTE prophylaxis: mechanical ordered and pharmacologic ordered
[2024-11-30] MEDS: PARoxetine 20 MG TABLET 40 MG BY MOUTH (09:03)
[2024-11-30] MEDS: PANTOPRAZOLE 40 MG TABLET PO ×2 (09:03→21:32)
[2024-11-30] MEDS: buPROPion HCL XL (24 HR) 150 MG TABCR 300 MG BY MOUTH (09:03)
[2024-11-30] MEDS: PREGABALIN (*CRX) 75 MG CAPSULE 150 MG PO ×2 (09:03→17:58)
[2024-11-30] MEDS: ENOXAPARIN 40 MG/0.4 ML SYRINGE SUB-Q (09:05)
[2024-11-30] MEDS: LORATADINE 10 MG TABLET PO (09:05)
[2024-11-30] MEDS: levETIRAcetam 500 MG TABLET PO ×2 (09:05→21:32)
[2024-11-30] MEDS: guaiFENesin 12 HR 600 MG TABCR 1200 MG PO ×2 (09:05→21:32)
[2024-11-30] MEDS: MIDODRINE HCL 2.5 MG TABLET PO ×2 (09:05→17:59)
[2024-11-30] MEDS: levoFLOXacin 750 MG/D5W 150 ML 750 MG/150 ML BAG 100 MG IVPB (09:06)
--- NOTE | 2024-11-30 09:23 | PM.PNPUL ---
Progress Note: A&P Assessment and Plan (1) Respiratory failure with hypoxia and hypercapnia: Code(s): J96.91 - Respiratory failure, unspecified with hypoxia; J96.92 - Respiratory failure, unspecified with hypercapnia Status: Acute Assessment and Plan: This 64-year-old male patient, with a medical history of COPD and previous lung resection for lung cancer, presented with acute respiratory failure due to a lower respiratory tract infection. Testing revealed positive results for influenza A and human metapneumovirus (hMPV), and a urine test was positive for pneumococcal antigen, indicating a pneumonia likely caused by multiple infectious agents. The patient has been treated for influenza A and is currently receiving three antibiotics to address potential bacterial coinfection. Although his gas exchange has improved in the past few days, he remains on high-flow oxygen via nasal cannula with high FiO2. He continues to experience shortness of breath but does not have a fever or signs of sepsis. He has a productive cough with dark yellow sputum. Given the positive respiratory panel for hMPV and the slow response to antibiotics, it is possible that hMPV is contributing significantly to his pneumonia. Typically, pneumococcal pneumonia responds to antibiotics within 48 hours. Severe pneumonia due to hMPV has been documented in patients with underlying conditions such as COPD or compromised immune systems. Severe pneumonia related to influenza A is is more likely in this setting. Recent chest imaging studies revealed significant improvement in the severe pneumonia previously affecting the right lung, but also identified new pneumonia in the left lung and atelectasis in the left lower lobe. Additionally, a new 1.4 cm nodule was detected in the right lower lobe, which is highly suspicious for cancer recurrence. Over the past 72 hours, the patient has been treated for nosocomial pneumonia affecting the left lung. Despite this, the patient?s overall clinical condition has remained stable, with no significant increase in oxygen requirements. Notably, clinical improvement has been observed over the past 48 hours, as evidenced by the white blood cell count returning to normal levels. The patient has started to mobilize secretions, experiencing a cough with light yellow phlegm production this a.m..Last chest X-ray two days ago showed findings on the left that are largely unchanged. The most recent sputum culture identified yeast, with further identification pending. Plan: Continue to closely monitor the patient?s respiratory status. Maintain the current antibiotic regimen. Continue administering short-acting bronchodilators and mucolytic agents. Encourage the use of lung clearing techniques, such as the Cornet device and incentive spirometry, to address left lower lung atelectasis. Will switch patient to high-flow nasal cannula and monitor O2 saturation, out of bed to chair. Chest x-ray in a.m.. (2) History of lung cancer: Code(s): Z85.118 - Personal history of other malignant neoplasm of bronchus and lung Status: Acute (3) Chronic narcotic use: Code(s): F11.90 - Opioid use, unspecified, uncomplicated Status: Acute (4) Influenza A: Code(s): J10.1 - Influenza due to other identified influenza virus with other respiratory manifestations Status: Acute (5) COPD (chronic obstructive pulmonary disease): Qualifiers: COPD type: unspecified COPD Qualified Code(s): J44.9 - Chronic obstructive pulmonary disease, unspecified Code(s): J44.9 - Chronic obstructive pulmonary disease, unspecified Status: Acute (6) Nodule of right lung: Code(s): R91.1 - Solitary pulmonary nodule Status: Acute Assessment and Plan: The discovery of a new lung nodule, which is suspicious for cancer recurrence, was thoroughly discussed with the patient and with his . Further testing will be necessary on an outpatient basis once the patient recovers from the severe pneumonia. Subjective Date/time seen: 11/30/24 09:23 Interval history: Patient stated that his condition is improving. He has been coughing more phlegm of yellow color. He has no changes in his shortness of breath. No other respiratory symptoms. He continues to be on high-flow nasal cannula Review of Systems Review of Systems: All systems reviewed & are unremarkable except as noted in HPI and below (HPI and below) Exam Narrative: GENERAL APPEARANCE: Well developed, well nourished, alert and cooperative, appears to be in mild respiratory distress while on high-flow nasal cannula SKIN: Inspection of the skin reveals no rashes, ulcerations or petechiae. HEENT: Sclerae anicteric and conjunctivae pink and moist. Extraocular movements were intact and pupils were equal, round. Moist oral mucosa. NECK: Supple. There was no thyroid enlargement, and no tenderness, or masses were felt. CHEST: Normal AP diameter and normal contour without any kyphoscoliosis. LUNGS: Crackles left lung posteriorly more than before also crackles right lung base. CARDIAC: There was a regular rate and rhythm without any murmurs, gallops, rubs. ABDOMEN: Soft and nontender with normal bowel sounds. There was no organomegaly. LYMPH NODES: No lymphadenopathy was appreciated in the neck. EXTREMITIES: No cyanosis, clubbing or edema. NEUROLOGIC: Alert and oriented x 3. Normal affect. Objective Data Vital Signs Vital Signs: Vital Signs - 24 hr 11/29/24 10:00 11/29/24 12:00 11/29/24 12:00 Temperature 36.8 C Pulse Rate 85 80 Respiratory Rate 20 Blood Pressure 114/67 Pulse Oximetry 98 98 Oxygen Delivery High Flow Therapy with Na Oxygen Flow Rate 35 Fraction of Inspired Oxygen 55 11/29/24 12:00 11/29/24 13:02 11/29/24 13:12 Temperature Pulse Rate 82 83 79 Respiratory Rate 20 18 Blood Pressure Pulse Oximetry Oxygen Delivery Oxygen Flow Rate Fraction of Inspired Oxygen 11/29/24 14:00 11/29/24 16:00 11/29/24 16:00 Temperature 36.6 C Pulse Rate 79 83 Respiratory Rate 24 H Blood Pressure 111/65 Pulse Oximetry 98 99 Oxygen Delivery High Flow Therapy with Na Oxygen Flow Rate 35 Fraction of Inspired Oxygen 55 11/29/24 16:00 11/29/24 18:00 11/29/24 19:30 Temperature Pulse Rate 80 80 Respiratory Rate Blood Pressure Pulse Oximetry 96 Oxygen Delivery High Flow Therapy with Na Oxygen Flow Rate 35 Fraction of Inspired Oxygen 55 11/29/24 19:33 11/29/24 19:43 11/29/24 20:00 Temperature Pulse Rate 88 89 93 Respiratory Rate 18 18 22 H Blood Pressure Pulse Oximetry 95 Oxygen Delivery High Flow Therapy with Na Oxygen Flow Rate 35 Fraction of Inspired Oxygen 55 11/29/24 20:00 11/29/24 20:51 11/29/24 22:00 Temperature 36.8 C Pulse Rate 98 93 92 Respiratory Rate 22 H Blood Pressure 119/72 Pulse Oximetry 95 Oxygen Delivery Oxygen Flow Rate Fraction of Inspired Oxygen 11/29/24 23:44 11/29/24 23:44 11/30/24 00:03 Temperature 37.0 C Pulse Rate 88 92 81 Respiratory Rate 22 H 20 Blood Pressure 104/63 Pulse Oximetry 95 99 Oxygen Delivery High Flow Therapy with Na Oxygen Flow Rate 35 Fraction of Inspired Oxygen 55 11/30/24 01:44 11/30/24 01:49 11/30/24 02:00 Temperature Pulse Rate 78 81 84 Respiratory Rate 18 18 Blood Pressure Pulse Oximetry Oxygen Delivery Oxygen Flow Rate Fraction of Inspired Oxygen 11/30/24 04:00 11/30/24 04:00 11/30/24 05:13 Temperature 36.8 C Pulse Rate 79 79 81 Respiratory Rate 18 20 Blood Pressure 115/71 Pulse Oximetry 99 96 Oxygen Delivery High Flow Therapy with Na Oxygen Flow Rate 35 Fraction of Inspired Oxygen 55 11/30/24 06:00 11/30/24 07:16 11/30/24 07:16 Temperature Pulse Rate 84 72 Respiratory Rate 16 Blood Pressure Pulse Oximetry 100 Oxygen Delivery High Flow Therapy with Na Oxygen Flow Rate 35 Fraction of Inspired Oxygen 55 11/30/24 07:47 11/30/24 08:00 Temperature 36.6 C Pulse Rate 74 76 Respiratory Rate 16 24 H Blood Pressure 110/69 Pulse Oximetry 98 Oxygen Delivery Oxygen Flow Rate Fraction of Inspired Oxygen Intake/Output Intake/Output: Intake & Output 11/27/24 11/28/24 11/29/24 11/30/24 23:59 23:59 23:59 23:59 Intake Total 1270 1270 2090 450 Output Total 1250 1000 1050 550 Balance 20 270 1040 -100 Meds/Results Medications: Active Medications Generic Name Dose Route Start Last Admin Trade Name Freq PRN Reason Stop Dose Admin Acetaminophen 650 mg 11/13/24 21:48 11/29/24 21:11 Acetaminophen 325 Mg Tablet PO 650 mg Q4H PRN Administration Mild Pain (1-3) or Fever Acetylcysteine 200 mg 11/24/24 10:56 Acetylcysteine 20% Inhal Soln 800 Mg/4 Ml Vial INHALATION Q12HR PRN Congestion Acetylcysteine 200 mg 11/28/24 20:00 11/30/24 07:16 Acetylcysteine 20% Inhal Soln 800 Mg/4 Ml Vial INHALATION 200 mg Q12HRT DANE Administration Albuterol/Ipratropium 3 ml 11/23/24 11:56 11/23/24 15:00 Ipratropium 0.5 Mg/Albuterol Sulfate 2.5 Mg Ampul.Neb 3 Ml INHALATION 3 ml Q6HRT PRN Administration Dyspnea Albuterol/Ipratropium 3 ml 11/28/24 14:00 11/30/24 07:16 Ipratropium 0.5 Mg/Albuterol Sulfate 2.5 Mg Ampul.Neb 3 Ml INHALATION 3 ml Q6HRT DANE Administration Bupropion HCl 300 mg 11/14/24 09:00 11/30/24 09:03 Bupropion Hcl Xl (24 Hr) 150 Mg Tabcr BY MOUTH 300 mg DAILY DANE Administration Enoxaparin Sodium 40 mg 11/21/24 09:00 11/30/24 09:05 Enoxaparin 40 Mg/0.4 Ml Syringe SUB-Q 40 mg DAILY DANE Administration Ferrous Sulfate 325 mg 11/14/24 09:00 11/30/24 09:10 Ferrous Sulfate [address] BY MOUTH Not Given DAILY [facility] Guaifenesin 1,200 mg 11/14/24 10:35 11/30/24 09:05 Guaifenesin 12 Hr 600 Mg Tabcr PO 1,200 mg Q12HR DANE Administration Levofloxacin/Dextrose 750 mg in 150 mls @ 100 mls/hr 11/26/24 08:00 11/30/24 09:06 Levaquin 750 Mg/D5w 150 Ml IVPB 100 mls/hr QAM DANE Administration Cefepime HCl 2 gm in 50 mls @ 100 mls/hr 11/27/24 13:00 11/30/24 05:45 Maxipime 2 Gm/Ns 50 Ml IVPB Infused Q8HR DANE Infusion Levetiracetam 500 mg 11/14/24 13:35 11/30/24 09:05 Levetiracetam 500 Mg Tablet PO 500 mg Q12HR DANE Administration Lidocaine 1 patch 11/14/24 09:00 11/30/24 09:13 Lidocaine 5% Patch TOPICAL Not Given DAILY [facility] Loratadine 10 mg 11/27/24 13:10 11/30/24 09:05 Loratadine 10 Mg Tablet PO 10 mg QAM DANE Administration Midodrine 2.5 mg 11/14/24 09:00 11/30/24 09:05 Midodrine Hcl 2.5 Mg Tablet PO 2.5 mg BID DANE Administration Oxycodone HCl 10 mg 11/22/24 01:00 11/30/24 09:03 Oxycodone Hcl (*Crx) 5 Mg Tab Ir PO 10 mg BID@0100,0500 PRN Administration Breakthrough Pain Oxycodone HCl 10 mg 11/21/24 15:43 11/30/24 04:27 Oxycodone Hcl (*Crx) 5 Mg Tab Ir PO 10 mg Q4HR PRN Administration Pain Rated 4-6 Pantoprazole Sodium 40 mg 11/14/24 09:00 11/30/24 09:03 Pantoprazole 40 Mg Tablet PO 40 mg Q12HR DANE Administration Paroxetine HCl 40 mg 11/14/24 09:00 11/30/24 09:03 Paroxetine 20 Mg Tablet BY MOUTH 40 mg QAM DANE Administration Pregabalin 150 mg 11/14/24 09:00 11/30/24 09:03 Pregabalin (*Crx) 75 Mg Capsule PO 150 mg BID DANE Administration Sodium Chloride 1 spray 11/19/24 22:13 11/20/24 00:02 Saline 0.65% Meir Soln 44 Ml Btl NASAL 1 spray Q6HR PRN Administration Congestion Tizanidine HCl 4 mg 11/14/24 02:03 11/26/24 18:19 Tizanidine Hcl 4 Mg Tablet PO 4 mg TID PRN Administration muscle spasticity Trazodone HCl 100 mg 11/14/24 21:00 11/29/24 21:06 Trazodone Hcl 50 Mg Tablet PO 100 mg QHS DANE Administration Radiology Results: ITS Impressions Venous Doppler Study 11/20/24 19:54 IMPRESSION: Patent bilateral lower extremity veins. No evidence of deep venous thrombosis. Chest CTA 11/24/24 11:00 Impression: No evidence of pulmonary embolus, aortic dissection, or aortic aneurysm. Mild interval improvement in extensive right lung pneumonia/groundglass pulmonary disease. Complete left lower lobe atelectasis. Patchy small airways infection throughout the left upper lobe with extensive tree-in-bud opacities and nodularity similar to prior exam. Probable underlying chronic interstitial change extensively in the right lung base, especially right lower lobe. Mild emphysema. Chest CT 11/27/24 12:29 IMPRESSION: 1. Widespread pneumonia, left worse than right. 2. Mucous plugging in left mainstem bronchus. 3. 14 mm nodule in right lung lower lobe suspicious for primary bronchogenic carcinoma or metastatic disease. 4. Mild emphysema. Chest X-Ray 11/29/24 06:20 Impression: Stable extensive left lung consolidation and mild hazy right basilar airspace disease. Labs Labs: Laboratory Results - last 24 hr 11/30/24 04:35 WBC 7.4 RBC 4.25 L Hgb 10.8 L Hct 36.0 L MCV 84.7 MCH 25.4 L MCHC 30.0 L RDW 16.3 H Plt Count 369 MPV 9.7 Immature Gran % (Auto) 1.9 H Neut % (Auto) 63.8 Lymph % (Auto) 13.9 L [place] % (Auto) 10.4 H Eos % (Auto) 8.6 H Baso % (Auto) 1.4 H Lymph # (Auto) 1.03 [place] # (Auto) 0.8 H Eos # (Auto) 0.6 H Baso # (Auto) 0.1 Abs Immat Gran (auto) 0.14 H Absolute Neuts (auto) 4.7 Absolute Nucleated RBC 0.000 Nucleated RBC % 0.0 Sodium 139 Potassium 4.2 Chloride 101 Carbon Dioxide 33 H Anion Gap 5 BUN 23 H Creatinine 0.92 Estim Creat Clear Calc 68 Estimated GFR > 60 Glucose 107 Calcium 8.9 Magnesium 2.2 Total Bilirubin 0.5 AST 33 ALT 19 Alkaline Phosphatase 71 Total Protein 7.0 Albumin 3.0 L
[2024-11-30] MEDS: traZODone HCL 50 MG TABLET 100 MG PO (21:32)
[2024-11-30] MEDS: NICOTINE (*PBKC) 14 MG PATCH 1 PATCH TRANSDERM (22:26)
[2024-12-01] VITALS (25 sets, daily range): BP systolic 98–115; BP diastolic 59–71; PULSE 91–119; RESP 18–26; TEMP 36.6–37.3; O2SAT 90–97
[2024-12-01] MEDS: oxyCODONE HCL (*CRX) 5 MG TAB IR 10 MG PO ×5 (02:16→20:31)
[2024-12-01] MEDS: IPRATROPIUM 0.5 MG/ALBUTEROL SULFATE 2.5 MG AMPUL.NEB 3 ML INHALATION ×4 (02:40→19:56)
[2024-12-01 04:24] LABS: Basophils Absolute Auto 0.1 K/mm3 (0.0-0.1); Basophils Percent Auto 0.9 % (0.2-1.2); Eosinophils Absolute Auto 0.7 K/mm3 (0-0.3); Eosinophils Percent Auto 6.7 % (0-4.4); Hematocrit 35.9 % (42.0-52.0); Hemoglobin 10.9 g/dL (14.0-18.0); Immature Granulocyte Absolute 0.18 K/mm3 (0.00-0.031); Immature Granulocyte Percent A 1.8 % (0-0.5); Lymphocytes Absolute Auto 1.08 K/mm3 (0.9-3.2); Mean Corpuscular HGB Conc 30.4 g/dl (32-36); Mean Corpuscular Hemoglobin 25.6 pg (26-34); Mean Corpuscular Volume 84.5 fl (80-100); Mean Platelet Volume 9.6 fl (7.4-10.4); Monocytes Absolute Auto 0.9 K/mm3 (0.1-0.6); Monocytes Percent Auto 9.3 % (2.6-8.5); Neutrophils Absolute Auto 6.9 K/mm3 (1.3-6.7); Neutrophils Percent Auto 70.3 % (45.5-73.1); Platelet Count Result 355 k/mm3 (150-375); Red Blood Count 4.25 M/mm3 (4.6-6.20); Red Cell Distribution Width 16.2 % (11.5-14.5); White Blood Count 9.9 K/mm3 (4.5-10.0)
[2024-12-01 04:40] LABS: Alanine Aminotransferase 18 U/L (6-50); Albumin Level 3.1 g/dL (3.5-5.1); Alkaline Phosphatase 82 U/L (38-126); Anion Gap 6 mmol/L (4-12); Aspartate Amino Transferase 28 U/L (17-59); Bilirubin,Total 0.4 mg/dL (0.2-1.3); Blood Urea Nitrogen 19 mg/dL (9-20); Calcium 8.9 mg/dL (8.4-10.2); Carbon Dioxide 32 mmol/L (22-30); Chloride 101 mmol/L (98-107); Estimated CRCL calculation 71 ml/min; Estimated Glomerular Filt Rate > 60; Glucose 101 mg/dL (65-110); Magnesium 2.1 mg/dL (1.6-2.3); Potassium 3.7 mmol/L (3.4-5.0); Sodium 139 mmol/L (137-145)
[2024-12-01] MEDS: CEFEPIME 2 GM/NS 50 ML 2 GM/50 ML BAG IVPB ×3 (06:04→23:45)
--- NOTE | 2024-12-01 07:49 | PM.IMPN ---
Progress Note: A&P Assessment and Plan (1) Postobstructive pneumonia: Code(s): J18.9 - Pneumonia, unspecified organism Status: Acute Assessment and Plan: Slowly improving CTA chest without PE. Patchy bibasilar ground opacity suspicious for infection as well as left descending bronchus being largely obstructive with postobstructive consolidation noted as well. Continue Cefepime and Levofloxacin completed 11/22. Flagyl discontinued. Duoneb q 4. Guaifenesin 1,200 mg PO q 12. Cornet flutter valve to aid in sputum expectoration. CPT Dr. Mosley and Dr. Wilkins Pulmonologists following Repeat CT scan in 3-6 weeks. His urine streptococcal antigen from 11/14/2024 returned positive today. Add PT/OT Human Metapneumovirus from 11/17/24 is positive. Echocardiogram EF 55-60%, grade 1 diastolic dysfunction LE dopplers negative. Chest CT 11/24 shows improvement Blood cultures negative. 11/25 patient placed back on cefepime and levofloxacin 11/29 continues on high flow oxygen, SOB with activity 11/30 - reports he is able to expectorate sputum, -will being to wean down high flow oxygen today 12/01 - repeat chest xray notes Stable bilateral airspace disease, left greater than right. Differential diagnosis includes asymmetric edema and pneumonia (2) Influenza A: Code(s): J10.1 - Influenza due to other identified influenza virus with other respiratory manifestations Status: Acute Assessment and Plan: Improving Influenza A positive. Negative for COVID, RSV and Influenza B. Tamiflu 75 mg PO q 12. Completed High-flow nasal cannula weaned to nasal canula. Afebrile. attempt to get out of bed and ambulate today (3) Pulmonary edema: Code(s): J81.1 - Chronic pulmonary edema Status: Acute Assessment and Plan: Improving Repeat chest x-ray in the morning slightly improved Echocardiogram 55-60% grade 1 diastolic dysfunction (4) COPD (chronic obstructive pulmonary disease): Qualifiers: COPD type: unspecified COPD Qualified Code(s): J44.9 - Chronic obstructive pulmonary disease, unspecified Code(s): J44.9 - Chronic obstructive pulmonary disease, unspecified Status: Acute Assessment and Plan: Duoneb q4 Continue Cefepime and Levofloxacin. Flagyl discontinued. Guaifenesin 1,200 mg PO q 12. Pulmonology consulted (5) Hypokalemia: Code(s): E87.6 - Hypokalemia Status: Acute Assessment and Plan: Improved Monitor labs. Replete as needed (6) Back pain: Qualifiers: Back pain laterality: unspecified Back pain location: thoracic back pain Chronicity: unspecified Qualified Code(s): M54.6 - Pain in thoracic spine Code(s): M54.9 - Dorsalgia, unspecified Status: Acute Assessment and Plan: Oxycodone for pain. And muscle relaxer (7) Nodule of right lung: Code(s): R91.1 - Solitary pulmonary nodule Status: Acute Assessment and Plan: 11/27 CT 14 mm nodule in right lung lower lobe suspicious for primary bronchogenic carcinoma or metastatic disease. Not seen in previous CTs Pulmonology on board Plan full code Time Spent With Patient Time with patient: Greater than 35 minutes (40 minutes) Subjective Date/time seen: 12/01/24 07:49 Interval history: 64-year-old male with a past medical history to tobacco abuse, COPD, lung cancer status post right middle lobe lobectomy in 2019, vitamin B12 deficiency, iron deficiency anemia, chronic pain and chronic opioid use, GERD, hypotension who presents with shortness of breath for about a week found to have influenza a pneumonia. Restarted antibiotic therapy on 11/25/24 for nosocomial pneumonia. Leukocytosis improving. Patient states that he is doing about the same as yesterday. He did admit to being able to expectorate more sputum today. Still short of breath when he gets up and moves. He remains on high flow oxygen. Denies chest pain, N/V/D, headache or dizziness. Review of Systems Review of Systems: All systems reviewed & are unremarkable except as noted in HPI and below Constitutional: Constitutional: Reports no additional constitutional complaints Eyes: Eyes: Reports no additional eye complaints ENT: Reports system reviewed and no additional complaints, except as documented Cardiovascular: Cardiovascular: Reports no additional cardiovascular complaints, Reports dyspnea and Reports dyspnea on exertion Respiratory: Respiratory: Reports cough, Reports dyspnea and Reports dyspnea on exertion Gastrointestinal: Gastrointestinal: Reports no additional gastrointestinal complaints Musculoskeletal: Musculoskeletal: Reports no additional musculoskeletal complaints Neurologic: Reports system reviewed and no additional complaints, except as documented Exam Const: General: comfortable, no acute distress, alert, awake, ill appearing and uncomfortable Orientation/consciousness: patient oriented x3 HENMT: Head: normal to inspection and normocephalic Eyes: General: appearance normal, both eyes and all related structures Pupils: Equal, round and reactive pupils present Neck: Neck: full ROM, no lymphadenopathy and supple Chest: Chest palpation & inspection: normal inspection of the chest Resp: Effort & Inspection: normal respiratory effort Auscultation: clear to auscultation bilaterally, crackles, rhonchi throughout and diminished lung sounds Other: improved air movement. Faint crackles. Cardio: Rate: regular rate Rhythm: regular rhythm Heart sounds: S1 normal heart sound present and S2 normal heart sound present Other: Telemetry SR 80 GI: Inspection: normal to inspection Auscultation: normal bowel sounds Skin: General skin exam: normal color and rashes and/or lesions noted Neuro: General: patient oriented x3 Cranial nerves: Yes CN's II-XII intact bilaterally and Yes Equal, round and reactive pupils present Speech: normal speech Extrem: General: normal to inspection, full ROM, no edema and no pedal edema Psych: Mental Status: mental status grossly normal Affect: normal affect Objective Data Vital Signs Vital Signs: Vital Signs - 24 hr 11/30/24 08:00 11/30/24 08:00 11/30/24 08:00 Temperature 97.8 F Pulse Rate 76 71 Respiratory Rate 24 H Blood Pressure 110/69 Pulse Oximetry 98 99 Oxygen Delivery High Flow Nasal Cannula Oxygen Flow Rate 10 11/30/24 09:55 11/30/24 10:00 11/30/24 12:00 Temperature 98.1 F Pulse Rate 80 74 Respiratory Rate 22 H Blood Pressure 100/64 Pulse Oximetry 96 99 Oxygen Delivery Nasal Cannula Oxygen Flow Rate 6 11/30/24 12:00 11/30/24 12:00 11/30/24 13:09 Temperature Pulse Rate 73 Respiratory Rate Blood Pressure Pulse Oximetry 99 96 Oxygen Delivery High Flow Nasal Cannula Nasal Cannula Oxygen Flow Rate 6 6 11/30/24 13:09 11/30/24 13:20 11/30/24 14:00 Temperature Pulse Rate 86 88 89 Respiratory Rate 18 18 Blood Pressure Pulse Oximetry Oxygen Delivery Oxygen Flow Rate 11/30/24 16:00 11/30/24 16:00 11/30/24 16:00 Temperature 98 F Pulse Rate 84 83 Respiratory Rate 24 H Blood Pressure 107/75 Pulse Oximetry 97 97 Oxygen Delivery Nasal Cannula Oxygen Flow Rate 2 11/30/24 18:00 11/30/24 20:00 11/30/24 20:19 Temperature 98.2 F Pulse Rate 92 97 101 H Respiratory Rate 22 H Blood Pressure 105/63 Pulse Oximetry 93 Oxygen Delivery Oxygen Flow Rate 11/30/24 21:30 11/30/24 21:59 11/30/24 22:00 Temperature Pulse Rate 97 96 Respiratory Rate 18 Blood Pressure Pulse Oximetry 93 Oxygen Delivery Nasal Cannula Oxygen Flow Rate 2 11/30/24 22:05 11/30/24 22:10 11/30/24 23:33 Temperature 98.2 F Pulse Rate 96 96 Respiratory Rate 18 22 H Blood Pressure 107/60 Pulse Oximetry 97 92 Oxygen Delivery Nasal Cannula Oxygen Flow Rate 2 12/01/24 00:00 12/01/24 00:10 12/01/24 02:00 Temperature Pulse Rate 93 95 Respiratory Rate Blood Pressure Pulse Oximetry 92 Oxygen Delivery Nasal Cannula Oxygen Flow Rate 2 12/01/24 02:40 12/01/24 03:55 12/01/24 04:00 Temperature 98.7 F Pulse Rate 93 91 91 Respiratory Rate 18 22 H Blood Pressure 98/59 L Pulse Oximetry 90 Oxygen Delivery Oxygen Flow Rate 12/01/24 04:10 12/01/24 06:00 Temperature Pulse Rate 93 Respiratory Rate Blood Pressure Pulse Oximetry 94 Oxygen Delivery Nasal Cannula Oxygen Flow Rate 2 Intake/Output Intake/Output: Intake & Output 11/28/24 11/29/24 11/30/24 12/01/24 23:59 23:59 23:59 23:59 Intake Total 1270 2090 1180 400 Output Total 1000 1050 1500 600 Balance 270 1040 -320 -200 Meds/Results Medications: Active Medications Generic Name Dose Route Start Last Admin Trade Name Freq PRN Reason Stop Dose Admin Acetaminophen 650 mg 11/13/24 21:48 11/29/24 21:11 Acetaminophen 325 Mg Tablet PO 650 mg Q4H PRN Administration Mild Pain (1-3) or Fever Acetylcysteine 200 mg 11/24/24 10:56 Acetylcysteine 20% Inhal Soln 800 Mg/4 Ml Vial INHALATION Q12HR PRN Congestion Acetylcysteine 200 mg 11/28/24 20:00 11/30/24 21:58 Acetylcysteine 20% Inhal Soln 800 Mg/4 Ml Vial INHALATION 200 mg Q12HRT DANE Administration Albuterol/Ipratropium 3 ml 11/23/24 11:56 11/23/24 15:00 Ipratropium 0.5 Mg/Albuterol Sulfate 2.5 Mg Ampul.Neb 3 Ml INHALATION 3 ml Q6HRT PRN Administration Dyspnea Albuterol/Ipratropium 3 ml 11/28/24 14:00 12/01/24 02:40 Ipratropium 0.5 Mg/Albuterol Sulfate 2.5 Mg Ampul.Neb 3 Ml INHALATION 3 ml Q6HRT DANE Administration Bupropion HCl 300 mg 11/14/24 09:00 11/30/24 09:03 Bupropion Hcl Xl (24 Hr) 150 Mg Tabcr BY MOUTH 300 mg DAILY DANE Administration Enoxaparin Sodium 40 mg 11/21/24 09:00 11/30/24 09:05 Enoxaparin 40 Mg/0.4 Ml Syringe SUB-Q 40 mg DAILY DANE Administration Ferrous Sulfate 325 mg 11/14/24 09:00 11/30/24 09:10 Ferrous Sulfate [address] BY MOUTH Not Given DAILY DANE Guaifenesin 1,200 mg 11/14/24 10:35 11/30/24 21:32 Guaifenesin 12 Hr 600 Mg Tabcr PO 1,200 mg Q12HR DANE Administration Levofloxacin/Dextrose 750 mg in 150 mls @ 100 mls/hr 11/26/24 08:00 11/30/24 09:06 Levaquin 750 Mg/D5w 150 Ml IVPB 100 mls/hr QAM DANE Administration Cefepime HCl 2 gm in 50 mls @ 100 mls/hr 11/27/24 13:00 12/01/24 06:04 Maxipime 2 Gm/Ns 50 Ml IVPB 100 mls/hr Q8HR DANE Administration Levetiracetam 500 mg 11/14/24 13:35 11/30/24 21:32 Levetiracetam 500 Mg Tablet PO 500 mg Q12HR DANE Administration Lidocaine 1 patch 11/14/24 09:00 11/30/24 09:13 Lidocaine 5% Patch TOPICAL Not Given DAILY DANE Loratadine 10 mg 11/27/24 13:10 11/30/24 09:05 Loratadine 10 Mg Tablet PO 10 mg QAM DANE Administration Midodrine 2.5 mg 11/14/24 09:00 11/30/24 17:59 Midodrine Hcl 2.5 Mg Tablet PO 2.5 mg BID DANE Administration Miscellaneous Information 0 each 12/01/24 00:01 Oxycodone Renew If Still Needs Or Will Auto D/C XX 12/31/24 00:00 [facility] Nicotine 1 patch 11/30/24 22:15 11/30/24 22:26 Nicotine (*Pbkc) 14 Mg Patch TRANSDERM 1 patch DAILY DANE Administration Oxycodone HCl 10 mg 11/22/24 01:00 11/28/24 17:06 Oxycodone Hcl (*Crx) 5 Mg Tab Ir PO 10 mg BID@0100,0500 PRN Administration Breakthrough Pain Oxycodone HCl 10 mg 11/21/24 15:43 12/01/24 06:00 Oxycodone Hcl (*Crx) 5 Mg Tab Ir PO 10 mg Q4HR PRN Administration Pain Rated 4-6 Pantoprazole Sodium 40 mg 11/14/24 09:00 11/30/24 21:32 Pantoprazole 40 Mg Tablet PO 40 mg Q12HR DANE Administration Paroxetine HCl 40 mg 11/14/24 09:00 11/30/24 09:03 Paroxetine 20 Mg Tablet BY MOUTH 40 mg QAM DANE Administration Pregabalin 150 mg 11/14/24 09:00 11/30/24 17:58 Pregabalin (*Crx) 75 Mg Capsule PO 150 mg BID DANE Administration Sodium Chloride 1 spray 11/19/24 22:13 11/20/24 00:02 Saline 0.65% Meir Soln 44 Ml Btl NASAL 1 spray Q6HR PRN Administration Congestion Tizanidine HCl 4 mg 11/14/24 02:03 11/26/24 18:19 Tizanidine Hcl 4 Mg Tablet PO 4 mg TID PRN Administration muscle spasticity Trazodone HCl 100 mg 11/14/24 21:00 11/30/24 21:32 Trazodone Hcl 50 Mg Tablet PO 100 mg QHS DANE Administration Radiology Results: ITS Impressions Venous Doppler Study 11/20/24 19:54 IMPRESSION: Patent bilateral lower extremity veins. No evidence of deep venous thrombosis. Chest CTA 11/24/24 11:00 Impression: No evidence of pulmonary embolus, aortic dissection, or aortic aneurysm. Mild interval improvement in extensive right lung pneumonia/groundglass pulmonary disease. Complete left lower lobe atelectasis. Patchy small airways infection throughout the left upper lobe with extensive tree-in-bud opacities and nodularity similar to prior exam. Probable underlying chronic interstitial change extensively in the right lung base, especially right lower lobe. Mild emphysema. Chest CT 11/27/24 12:29 IMPRESSION: 1. Widespread pneumonia, left worse than right. 2. Mucous plugging in left mainstem bronchus. 3. 14 mm nodule in right lung lower lobe suspicious for primary bronchogenic carcinoma or metastatic disease. 4. Mild emphysema. Chest X-Ray 12/01/24 06:54 Impression: 1: Stable bilateral airspace disease, left greater than right. Differential diagnosis includes asymmetric edema and pneumonia. Labs Labs: Laboratory Results - last 24 hr 12/01/24 03:47 WBC 9.9 RBC 4.25 L Hgb 10.9 L Hct 35.9 L MCV 84.5 MCH 25.6 L MCHC 30.4 L RDW 16.2 H Plt Count 355 MPV 9.6 Immature Gran % (Auto) 1.8 H Neut % (Auto) 70.3 Lymph % (Auto) 11.0 L [place] % (Auto) 9.3 H Eos % (Auto) 6.7 H Baso % (Auto) 0.9 Lymph # (Auto) 1.08 [place] # (Auto) 0.9 H Eos # (Auto) 0.7 H Baso # (Auto) 0.1 Abs Immat Gran (auto) 0.18 H Absolute Neuts (auto) 6.9 H Absolute Nucleated RBC 0.000 Nucleated RBC % 0.0 Sodium 139 Potassium 3.7 Chloride 101 Carbon Dioxide 32 H Anion Gap 6 BUN 19 Creatinine 0.88 Estim Creat Clear Calc 71 Estimated GFR > 60 Glucose 101 Calcium 8.9 Magnesium 2.1 Total Bilirubin 0.4 AST 28 ALT 18 Alkaline Phosphatase 82 Total Protein 7.0 Albumin 3.1 L Quality VTE Prophylaxis VTE prophylaxis: mechanical ordered and pharmacologic ordered Hospitalist MIPS Advance Care Plan I have confirmed that the patient's Advanced Care Plan is present, code status is documented, or surrogate decision maker is listed in patient medical record.: Yes Medication Reconciliation I have utilized all available resources to obtain, update and review the patients current medications (includes all prescriptions, OTC, herbals, cannabis, and nutritional supplements).: Yes
--- NOTE | 2024-12-01 08:37 | PM.PNPUL ---
Progress Note: A&P Assessment and Plan (1) Respiratory failure with hypoxia and hypercapnia: Code(s): J96.91 - Respiratory failure, unspecified with hypoxia; J96.92 - Respiratory failure, unspecified with hypercapnia Status: Acute Assessment and Plan: This 64-year-old male patient, with a medical history of COPD and previous lung resection for lung cancer, presented with acute respiratory failure due to a lower respiratory tract infection. Testing revealed positive results for influenza A and human metapneumovirus (hMPV), and a urine test was positive for pneumococcal antigen, indicating a pneumonia likely caused by multiple infectious agents. The patient has been treated for influenza A and is currently receiving three antibiotics to address potential bacterial coinfection. Although his gas exchange has improved in the past few days, he remains on high-flow oxygen via nasal cannula with high FiO2. He continues to experience shortness of breath but does not have a fever or signs of sepsis. He has a productive cough with dark yellow sputum. Given the positive respiratory panel for hMPV and the slow response to antibiotics, it is possible that hMPV is contributing significantly to his pneumonia. Typically, pneumococcal pneumonia responds to antibiotics within 48 hours. Severe pneumonia due to hMPV has been documented in patients with underlying conditions such as COPD or compromised immune systems. Severe pneumonia related to influenza A is is more likely in this setting. Recent chest imaging studies revealed significant improvement in the severe pneumonia previously affecting the right lung, but also identified new pneumonia in the left lung and atelectasis in the left lower lobe. Additionally, a new 1.4 cm nodule was detected in the right lower lobe, which is highly suspicious for cancer recurrence. Over the past 3 days, the patient has been treated for nosocomial pneumonia affecting the left lung. Despite this, the patient?s overall clinical condition has remained stable, with no significant increase in oxygen requirements. Notably, clinical improvement has been observed over the past 48 hours, as evidenced by the white blood cell count returning to normal levels. The patient has started to mobilize secretions, experiencing a cough with light yellow phlegm production this a.m.. X-ray today showed some improvement of the left lung pneumonia compared to the x-ray 4 days ago. The most recent sputum culture identified yeast, Elva albicans Plan: Continue to closely monitor the patient?s respiratory status. Maintain the current antibiotic regimen. Continue administering short-acting bronchodilators and mucolytic agents. Encourage the use of lung clearing techniques, such as the Cornet device and incentive spirometry, to address left lower lung atelectasis, and increased bronchial secretions. If everything goes well anticipate discharge home in 2-3 days. (2) History of lung cancer: Code(s): Z85.118 - Personal history of other malignant neoplasm of bronchus and lung Status: Acute (3) Chronic narcotic use: Code(s): F11.90 - Opioid use, unspecified, uncomplicated Status: Acute (4) Influenza A: Code(s): J10.1 - Influenza due to other identified influenza virus with other respiratory manifestations Status: Acute (5) COPD (chronic obstructive pulmonary disease): Qualifiers: COPD type: unspecified COPD Qualified Code(s): J44.9 - Chronic obstructive pulmonary disease, unspecified Code(s): J44.9 - Chronic obstructive pulmonary disease, unspecified Status: Acute (6) Nodule of right lung: Code(s): R91.1 - Solitary pulmonary nodule Status: Acute Assessment and Plan: The discovery of a new lung nodule, which is suspicious for cancer recurrence, was thoroughly discussed with the patient and with his . Further testing will be necessary on an outpatient basis once the patient recovers from the severe pneumonia. Subjective Date/time seen: 12/01/24 08:37 Interval history: Patient stated he is doing better. Has been coughing more phlegm over the last couple of days. Phlegm is light yellow. He has no fever chills hemoptysis. Appetite picking up. Spends time out of bed in the chair. Review of Systems Review of Systems: All systems reviewed & are unremarkable except as noted in HPI and below (HPI and below) Exam Narrative: GENERAL APPEARANCE: Well developed, well nourished, alert and cooperative, appears to be in mild respiratory distress while on high-flow nasal cannula SKIN: Inspection of the skin reveals no rashes, ulcerations or petechiae. HEENT: Sclerae anicteric and conjunctivae pink and moist. Extraocular movements were intact and pupils were equal, round. Moist oral mucosa. NECK: Supple. There was no thyroid enlargement, and no tenderness, or masses were felt. CHEST: Normal AP diameter and normal contour without any kyphoscoliosis. LUNGS: Crackles left lung posteriorly more than before also crackles right lung base. CARDIAC: There was a regular rate and rhythm without any murmurs, gallops, rubs. ABDOMEN: Soft and nontender with normal bowel sounds. There was no organomegaly. LYMPH NODES: No lymphadenopathy was appreciated in the neck. EXTREMITIES: No cyanosis, clubbing or edema. NEUROLOGIC: Alert and oriented x 3. Normal affect. Objective Data Vital Signs Vital Signs: Vital Signs - 24 hr 11/30/24 09:55 11/30/24 10:00 11/30/24 12:00 Temperature 36.7 C Pulse Rate 80 74 Respiratory Rate 22 H Blood Pressure 100/64 Pulse Oximetry 96 99 Oxygen Delivery Nasal Cannula Oxygen Flow Rate 6 11/30/24 12:00 11/30/24 12:00 11/30/24 13:09 Temperature Pulse Rate 73 Respiratory Rate Blood Pressure Pulse Oximetry 99 96 Oxygen Delivery High Flow Nasal Cannula Nasal Cannula Oxygen Flow Rate 6 6 11/30/24 13:09 11/30/24 13:20 11/30/24 14:00 Temperature Pulse Rate 86 88 89 Respiratory Rate 18 18 Blood Pressure Pulse Oximetry Oxygen Delivery Oxygen Flow Rate 11/30/24 16:00 11/30/24 16:00 11/30/24 16:00 Temperature 36.6 C Pulse Rate 84 83 Respiratory Rate 24 H Blood Pressure 107/75 Pulse Oximetry 97 97 Oxygen Delivery Nasal Cannula Oxygen Flow Rate 2 11/30/24 18:00 11/30/24 20:00 11/30/24 20:19 Temperature 36.8 C Pulse Rate 92 97 101 H Respiratory Rate 22 H Blood Pressure 105/63 Pulse Oximetry 93 Oxygen Delivery Oxygen Flow Rate 11/30/24 21:30 11/30/24 21:59 11/30/24 22:00 Temperature Pulse Rate 97 96 Respiratory Rate 18 Blood Pressure Pulse Oximetry 93 Oxygen Delivery Nasal Cannula Oxygen Flow Rate 2 11/30/24 22:05 11/30/24 22:10 11/30/24 23:33 Temperature 36.8 C Pulse Rate 96 96 Respiratory Rate 18 22 H Blood Pressure 107/60 Pulse Oximetry 97 92 Oxygen Delivery Nasal Cannula Oxygen Flow Rate 2 12/01/24 00:00 12/01/24 00:10 12/01/24 02:00 Temperature Pulse Rate 93 95 Respiratory Rate Blood Pressure Pulse Oximetry 92 Oxygen Delivery Nasal Cannula Oxygen Flow Rate 2 12/01/24 02:40 12/01/24 03:55 12/01/24 04:00 Temperature 37.1 C Pulse Rate 93 91 91 Respiratory Rate 18 22 H Blood Pressure 98/59 L Pulse Oximetry 90 Oxygen Delivery Oxygen Flow Rate 12/01/24 04:10 12/01/24 06:00 12/01/24 08:00 Temperature 36.8 C Pulse Rate 93 92 Respiratory Rate 24 H Blood Pressure 108/71 Pulse Oximetry 94 91 Oxygen Delivery Nasal Cannula Oxygen Flow Rate 2 Intake/Output Intake/Output: Intake & Output 11/28/24 11/29/24 11/30/24 12/01/24 23:59 23:59 23:59 23:59 Intake Total 1270 2090 1180 400 Output Total 1000 1050 1500 600 Balance 270 1046 -320 200 Meds/Results Medications: Active Medications Generic Name Dose Route Start Last Admin Trade Name Freq PRN Reason Stop Dose Admin Acetaminophen 650 mg 11/13/24 21:48 11/29/24 21:11 Acetaminophen 325 Mg Tablet PO 650 mg Q4H PRN Administration Mild Pain (1-3) or Fever Acetylcysteine 200 mg 11/24/24 10:56 Acetylcysteine 20% Inhal Soln 800 Mg/4 Ml Vial INHALATION Q12HR PRN Congestion Acetylcysteine 200 mg 11/28/24 20:00 11/30/24 21:58 Acetylcysteine 20% Inhal Soln 800 Mg/4 Ml Vial INHALATION 200 mg Q12HRT DANE Administration Albuterol/Ipratropium 3 ml 11/23/24 11:56 11/23/24 15:00 Ipratropium 0.5 Mg/Albuterol Sulfate 2.5 Mg Ampul.Neb 3 Ml INHALATION 3 ml Q6HRT PRN Administration Dyspnea Albuterol/Ipratropium 3 ml 11/28/24 14:00 12/01/24 02:40 Ipratropium 0.5 Mg/Albuterol Sulfate 2.5 Mg Ampul.Neb 3 Ml INHALATION 3 ml Q6HRT DANE Administration Bupropion HCl 300 mg 11/14/24 09:00 11/30/24 09:03 Bupropion Hcl Xl (24 Hr) 150 Mg Tabcr BY MOUTH 300 mg DAILY DANE Administration Enoxaparin Sodium 40 mg 11/21/24 09:00 11/30/24 09:05 Enoxaparin 40 Mg/0.4 Ml Syringe SUB-Q 40 mg DAILY DANE Administration Ferrous Sulfate 325 mg 11/14/24 09:00 11/30/24 09:10 Ferrous Sulfate [address] BY MOUTH Not Given DAILY [facility] Guaifenesin 1,200 mg 11/14/24 10:35 11/30/24 21:32 Guaifenesin 12 Hr 600 Mg Tabcr PO 1,200 mg Q12HR DANE Administration Levofloxacin/Dextrose 750 mg in 150 mls @ 100 mls/hr 11/26/24 08:00 11/30/24 09:06 Levaquin 750 Mg/D5w 150 Ml IVPB 100 mls/hr QAM DANE Administration Cefepime HCl 2 gm in 50 mls @ 100 mls/hr 11/27/24 13:00 12/01/24 06:04 Maxipime 2 Gm/Ns 50 Ml IVPB 100 mls/hr Q8HR DANE Administration Levetiracetam 500 mg 11/14/24 13:35 11/30/24 21:32 Levetiracetam 500 Mg Tablet PO 500 mg Q12HR DANE Administration Lidocaine 1 patch 11/14/24 09:00 11/30/24 09:13 Lidocaine 5% Patch TOPICAL Not Given DAILY [facility] Loratadine 10 mg 11/27/24 13:10 11/30/24 09:05 Loratadine 10 Mg Tablet PO 10 mg QAM [facility] Administration Midodrine 2.5 mg 11/14/24 09:00 11/30/24 17:59 Midodrine Hcl 2.5 Mg Tablet PO 2.5 mg BID DANE Administration Miscellaneous Information 0 each 12/01/24 00:01 Oxycodone Renew If Still Needs Or Will Auto D/C XX 12/31/24 00:00 CLARIFY DANE Nicotine 1 patch 11/30/24 22:15 11/30/24 22:26 Nicotine (*Pbkc) 14 Mg Patch TRANSDERM 1 patch DAILY DANE Administration Oxycodone HCl 10 mg 11/22/24 01:00 11/28/24 17:06 Oxycodone Hcl (*Crx) 5 Mg Tab Ir PO 10 mg BID@0100,0500 PRN Administration Breakthrough Pain Oxycodone HCl 10 mg 11/21/24 15:43 12/01/24 06:00 Oxycodone Hcl (*Crx) 5 Mg Tab Ir PO 10 mg Q4HR PRN Administration Pain Rated 4-6 Pantoprazole Sodium 40 mg 11/14/24 09:00 11/30/24 21:32 Pantoprazole 40 Mg Tablet PO 40 mg Q12HR DANE Administration Paroxetine HCl 40 mg 11/14/24 09:00 11/30/24 09:03 Paroxetine 20 Mg Tablet BY MOUTH 40 mg QAM DANE Administration Pregabalin 150 mg 11/14/24 09:00 11/30/24 17:58 Pregabalin (*Crx) 75 Mg Capsule PO 150 mg BID DANE Administration Sodium Chloride 1 spray 11/19/24 22:13 11/20/24 00:02 Saline 0.65% Meir Soln 44 Ml Btl NASAL 1 spray Q6HR PRN Administration Congestion Tizanidine HCl 4 mg 11/14/24 02:03 11/26/24 18:19 Tizanidine Hcl 4 Mg Tablet PO 4 mg TID PRN Administration muscle spasticity Trazodone HCl 100 mg 11/14/24 21:00 11/30/24 21:32 Trazodone Hcl 50 Mg Tablet PO 100 mg QHS DANE Administration Radiology Results: ITS Impressions Venous Doppler Study 11/20/24 19:54 IMPRESSION: Patent bilateral lower extremity veins. No evidence of deep venous thrombosis. Chest CTA 11/24/24 11:00 Impression: No evidence of pulmonary embolus, aortic dissection, or aortic aneurysm. Mild interval improvement in extensive right lung pneumonia/groundglass pulmonary disease. Complete left lower lobe atelectasis. Patchy small airways infection throughout the left upper lobe with extensive tree-in-bud opacities and nodularity similar to prior exam. Probable underlying chronic interstitial change extensively in the right lung base, especially right lower lobe. Mild emphysema. Chest CT 11/27/24 12:29 IMPRESSION: 1. Widespread pneumonia, left worse than right. 2. Mucous plugging in left mainstem bronchus. 3. 14 mm nodule in right lung lower lobe suspicious for primary bronchogenic carcinoma or metastatic disease. 4. Mild emphysema. Chest X-Ray 12/01/24 06:54 Impression: 1: Stable bilateral airspace disease, left greater than right. Differential diagnosis includes asymmetric edema and pneumonia. Labs Labs: Laboratory Results - last 24 hr 12/01/24 03:47 WBC 9.9 RBC 4.25 L Hgb 10.9 L Hct 35.9 L MCV 84.5 MCH 25.6 L MCHC 30.4 L RDW 16.2 H Plt Count 355 MPV 9.6 Immature Gran % (Auto) 1.8 H Neut % (Auto) 70.3 Lymph % (Auto) 11.0 L Zapata % (Auto) 9.3 H Eos % (Auto) 6.7 H Baso % (Auto) 0.9 Lymph # (Auto) 1.08 [place]ata # (Auto) 0.9 H Eos # (Auto) 0.7 H Baso # (Auto) 0.1 Abs Immat Gran (auto) 0.18 H Absolute Neuts (auto) 6.9 H Absolute Nucleated RBC 0.000 Nucleated RBC % 0.0 Sodium 139 Potassium 3.7 Chloride 101 Carbon Dioxide 32 H Anion Gap 6 BUN 19 Creatinine 0.88 Estim Creat Clear Calc 71 Estimated GFR > 60 Glucose 101 Calcium 8.9 Magnesium 2.1 Total Bilirubin 0.4 AST 28 ALT 18 Alkaline Phosphatase 82 Total Protein 7.0 Albumin 3.1 L
[2024-12-01] MEDS: levoFLOXacin 750 MG/D5W 150 ML 750 MG/150 ML BAG 100 MG IVPB (08:38)
[2024-12-01] MEDS: buPROPion HCL XL (24 HR) 150 MG TABCR 300 MG BY MOUTH (08:39)
[2024-12-01] MEDS: FERROUS SULFATE 325 MG TABLET DR BY MOUTH (08:39)
[2024-12-01] MEDS: PREGABALIN (*CRX) 75 MG CAPSULE 150 MG PO ×2 (08:39→18:11)
[2024-12-01] MEDS: ENOXAPARIN 40 MG/0.4 ML SYRINGE SUB-Q (08:39)
[2024-12-01] MEDS: guaiFENesin 12 HR 600 MG TABCR 1200 MG PO ×2 (08:39→20:30)
[2024-12-01] MEDS: PARoxetine 20 MG TABLET 40 MG BY MOUTH (08:40)
[2024-12-01] MEDS: MIDODRINE HCL 2.5 MG TABLET PO ×2 (08:40→18:11)
[2024-12-01] MEDS: NICOTINE (*PBKC) 14 MG PATCH 1 PATCH TRANSDERM (08:40)
[2024-12-01] MEDS: LORATADINE 10 MG TABLET PO (08:40)
[2024-12-01] MEDS: PANTOPRAZOLE 40 MG TABLET PO ×2 (08:40→20:31)
[2024-12-01] MEDS: levETIRAcetam 500 MG TABLET PO ×2 (08:40→20:30)
[2024-12-01] MEDS: ACETYLCYSTEINE 20% INHAL SOLN 800 MG/4 ML VIAL 200 MG INHALATION ×2 (09:22→19:56)
--- NOTE | 2024-12-01 15:03 | PCPTNOTE ---
Attempted to see patient for PT, however patient refused. Patient reported he did a lot of work with OT after lunch and just got back to bed from sitting up, and did not want to do PT at this time.
[2024-12-01] MEDS: traZODone HCL 50 MG TABLET 100 MG PO (20:31)
[2024-12-01] MEDS: TIZANIDINE HCL 4 MG TABLET PO (20:32)
[2024-12-02] VITALS (19 sets, daily range): BP systolic 90–111; BP diastolic 51–88; PULSE 79–104; RESP 16–22; TEMP 36.3–36.9; O2SAT 91–97
[2024-12-02] MEDS: IPRATROPIUM 0.5 MG/ALBUTEROL SULFATE 2.5 MG AMPUL.NEB 3 ML INHALATION ×3 (01:46→13:23)
[2024-12-02] MEDS: oxyCODONE HCL (*CRX) 5 MG TAB IR 10 MG PO ×5 (03:52→21:15)
[2024-12-02 04:46] LABS: Basophils Absolute Auto 0.1 K/mm3 (0.0-0.1); Basophils Percent Auto 0.7 % (0.2-1.2); Eosinophils Absolute Auto 0.7 K/mm3 (0-0.3); Eosinophils Percent Auto 7.1 % (0-4.4); Hematocrit 33.8 % (42.0-52.0); Hemoglobin 10.3 g/dL (14.0-18.0); Immature Granulocyte Absolute 0.15 K/mm3 (0.00-0.031); Immature Granulocyte Percent A 1.5 % (0-0.5); Lymphocytes Absolute Auto 0.97 K/mm3 (0.9-3.2); Lymphocytes Percent Auto 9.4 % (18.3-44.2); Mean Corpuscular HGB Conc 30.5 g/dl (32-36); Mean Corpuscular Hemoglobin 25.7 pg (26-34); Mean Corpuscular Volume 84.3 fl (80-100); Mean Platelet Volume 9.4 fl (7.4-10.4); Monocytes Absolute Auto 1.1 K/mm3 (0.1-0.6); Monocytes Percent Auto 10.2 % (2.6-8.5); Neutrophils Absolute Auto 7.3 K/mm3 (1.3-6.7); Neutrophils Percent Auto 71.1 % (45.5-73.1); Platelet Count Result 348 k/mm3 (150-375); Red Blood Count 4.01 M/mm3 (4.6-6.20); Red Cell Distribution Width 16.2 % (11.5-14.5); White Blood Count 10.3 K/mm3 (4.5-10.0)
[2024-12-02 04:56] LABS: Alanine Aminotransferase 14 U/L (6-50); Albumin Level 3.1 g/dL (3.5-5.1); Alkaline Phosphatase 78 U/L (38-126); Anion Gap 4 mmol/L (4-12); Aspartate Amino Transferase 23 U/L (17-59); Bilirubin,Total 0.5 mg/dL (0.2-1.3); Blood Urea Nitrogen 19 mg/dL (9-20); Calcium 8.9 mg/dL (8.4-10.2); Carbon Dioxide 34 mmol/L (22-30); Chloride 101 mmol/L (98-107); Estimated CRCL calculation 71 ml/min; Estimated Glomerular Filt Rate > 60; Glucose 98 mg/dL (65-110); Magnesium 2.1 mg/dL (1.6-2.3); Potassium 3.7 mmol/L (3.4-5.0); Sodium 139 mmol/L (137-145)
[2024-12-02] MEDS: CEFEPIME 2 GM/NS 50 ML 2 GM/50 ML BAG IVPB ×3 (06:25→21:14)
[2024-12-02] MEDS: ACETYLCYSTEINE 20% INHAL SOLN 800 MG/4 ML VIAL 200 MG INHALATION (07:17)
[2024-12-02] MEDS: LIDOCAINE 5% PATCH 1 PATCH TOPICAL (08:13)
[2024-12-02] MEDS: ENOXAPARIN 40 MG/0.4 ML SYRINGE SUB-Q (08:15)
[2024-12-02] MEDS: buPROPion HCL XL (24 HR) 150 MG TABCR 300 MG BY MOUTH (08:15)
[2024-12-02] MEDS: guaiFENesin 12 HR 600 MG TABCR 1200 MG PO ×2 (08:16→20:32)
[2024-12-02] MEDS: FERROUS SULFATE 325 MG TABLET DR BY MOUTH (08:16)
[2024-12-02] MEDS: PREGABALIN (*CRX) 75 MG CAPSULE 150 MG PO ×2 (08:17→16:57)
[2024-12-02] MEDS: levETIRAcetam 500 MG TABLET PO ×2 (08:18→20:32)
[2024-12-02] MEDS: LORATADINE 10 MG TABLET PO (08:18)
[2024-12-02] MEDS: MIDODRINE HCL 2.5 MG TABLET PO ×2 (08:18→16:57)
[2024-12-02] MEDS: PARoxetine 20 MG TABLET 40 MG BY MOUTH (08:19)
[2024-12-02] MEDS: NICOTINE (*PBKC) 14 MG PATCH 1 PATCH TRANSDERM (08:19)
[2024-12-02] MEDS: levoFLOXacin 750 MG/D5W 150 ML 750 MG/150 ML BAG 100 MG IVPB (08:20)
[2024-12-02] MEDS: PANTOPRAZOLE 40 MG TABLET PO ×2 (08:28→20:32)
--- NOTE | 2024-12-02 09:02 | PM.IMPN ---
Progress Note: A&P Assessment and Plan (1) Postobstructive pneumonia: Code(s): J18.9 - Pneumonia, unspecified organism Status: Acute Assessment and Plan: Influenza A positive--completed Tamiflu course Human metapneumovirus positive Urine strep positive Continue incentive spirometry and cornet flutter valve to a and sputum expectoration, will hold off on chest PT considering improvement and oxygenation Continue guaifenesin continue DuoNebs Pulmonology consulted Continue PT and OT Chest x-ray today showing no significant change in bilateral lung disease, left greater than right consistent multifocal pneumonia, possible small left pleural effusion Continue cefepime and levofloxacin Flagyl discontinued on 11/22/2024 Currently on 2 L nasal cannula, continue to wean O2 for sat greater than 92% Okay to move out of IMU today on telemetry (2) Influenza A: Code(s): J10.1 - Influenza due to other identified influenza virus with other respiratory manifestations Status: Acute Assessment and Plan: Improving Influenza A positive. Completed Tamiflu course Continue to wean O2 for sat greater than 92%, currently on 2 L nasal cannula Continue PT and OT (3) COPD (chronic obstructive pulmonary disease): Qualifiers: COPD type: unspecified COPD Qualified Code(s): J44.9 - Chronic obstructive pulmonary disease, unspecified Code(s): J44.9 - Chronic obstructive pulmonary disease, unspecified Status: Acute Assessment and Plan: See above plan of care (4) Hypokalemia: Code(s): E87.6 - Hypokalemia Status: Acute Assessment and Plan: Potassium 3.7 No replacement needed Continue to trend (5) Back pain: Qualifiers: Back pain laterality: unspecified Back pain location: thoracic back pain Chronicity: unspecified Qualified Code(s): M54.6 - Pain in thoracic spine Code(s): M54.9 - Dorsalgia, unspecified Status: Acute Assessment and Plan: Continue pain control (6) Nodule of right lung: Code(s): R91.1 - Solitary pulmonary nodule Status: Acute Assessment and Plan: 11/27 CT a chest 14 mm nodule in right lung lower lobe suspicious for primary bronchogenic carcinoma or metastatic disease. Not seen in previous CTs--will need outpatient follow-up Pulmonology following Time Spent With Patient Time with patient: Greater than 35 minutes Subjective Date/time seen: 12/02/24 09:02 Interval history: Interval history: This is a 64 year old male with a significant past medical history of tobacco abuse, lung cancer s/p right middle lobe lobectomy in 2019, vitamin B 12 deficiency, HONG, chronic pain, GERD who presented to the hospital on 11/14/24 with complaints of shortness of breath/dyspnea. He was brought in by EMS on 11/13/24 and received Duoneb breathing treatment in route to the hospital. Work up in the hospital included a chest x-ray which shown a small right sided pleural effusion without focal infiltrate. Chest CTA was negative for PE or thoracic aortic dissection, did shown obstruction of the left lower lobe bronchus with postobstructive consolidation. Initial labs revealed a white blood cell count of 11.1, hemoglobin 12.6, D-dimer 0.83, sodium 135, blood sugars ranging 112-152, calcium 8.3, magnesium 1.9, troponin negative. Respiratory panel was positive for influenza A. Blood cultures from 11/13/24 were negative on final read. Sputum culture shown alana albicans on final read. Repeat blood cultures on 11/26/24 were also negative on final read. EKG showed sinus rhythm with a rate of 67, QTC 420. Echocardiogram on 11/21/2024 showed normal LV systolic function with an estimated EF of 55-60%, grade 1 diastolic dysfunction. He was started on azithromycin, Rocephin, Flagyl and Tamiflu. He was also started on DuoNebs and Solu-Medrol. Pulmonology was consulted in added pep therapy and guaifenesin 1200 mg p.o. b.i.d. On 11/17/2024 patient became tachypneic and desaturated down into the 80s. He was started on Vapotherm at 45 L and 90%. He had a repeat chest x-ray which showed significant hazy opacities in the entire right lung field worsened from admission. He was given 1 dose of 40 mg IV Lasix. His antibiotics were changed from Rocephin and azithromycin to Levofloxacin and cefepime. Chest PT was ordered an ABG was showing but stated hypercapnia. A full viral respiratory panel was obtained and he was transferred to IMU. 11/18/24 he was decreased to 10L high flow oxygen and remained IMU status 11/19/24 urine streptococcal antigen from 11/14/24 was positive. CXR showed improved aeration the right hemithorax, extensive infiltration persist. 11/20/24 his respiratory panel was positive for HMPV and Flagyl was discontinued. Chest CT showed diffuse lung disease with worsening on the right and improvement on the left consistent with pneumonia, mild emphysema. Venous Dopplers were negative for DVT. Chest x-ray showed increased subsegmental right basilar atelectasis/consolidation otherwise unchanged pulmonary opacities. CRP elevated at 14.0 11/21/24 patient was placed back on Airvo with an FIO2 of 100% due to grunting respirations and acute respiratory distress with hypoxia of 80%, likely due to mucous plugging. Chest x-ray shown extensive right basilar and right perihilar pneumonia, minimal right pleural effusion, minimal left basilar atelectasis. 11/22/2024 he was started on Mucomyst treatments. Chest x-ray showed extensive bibasilar/perihilar space disease showing pulmonary edema versus pneumonia, minimal pleural effusion. Currently still on Airvo. CRP 6.3 11/23/2024 Airvo down to 60% and PT and OT were able to get patient up out of the bed today. Continued with aggressive pulmonary toilet, Mucomyst and antibiotics. 11/24/2024 CRP down to 2.5 Chest CTA was negative for PE, aortic dissection or aneurysm, mild interval improvement in extensive right lung pneumonia/groundlass pulmonary disease, complete left lower lobe atelectasis, patchy small airway infection throughout the left upper lobe with extensive tree-in-bud opacities and modularity similar to prior exam, underlying chronic interstitial change extensively in the right lung base, mild emphysema 11/25/2024 white blood cell count went up to 14.1 with left shift. Cefepime 1 gm q8h ordered. Continue Mucomyst and bronchodilators. He was given a dose of Vancomycin. suspected nosocomial pneumonia. 11/26/24 CXR showing whiteout of left lung. CRP increased to 6.6. 11/27/24: CT of chest revealed widespread pneumonia, left worse than right, mucous plugging in left mainstem bronchus, 14mm nodule in right lower lobe suspicious for primary bronchogenic carcinoma or metastatic disease, mild emphysema. Vancomycin was discontinued due to negative MRSA. 11/30/24: Patient switched from Airvo to high flow nasal cannula considering improvement over the last 72 hours. He started at 10L and was weaned down to 2L HFNC 12/01/23: CXR shown stable bilateral airspace disease, left greater than right. Remained on 2L HFNC. Continued to improve. Subjective: Patient states he is feeling much better today. He denies any new complaints today. Labs and imaging reviewed. He is currently on 2 L nasal cannula. He states that he does become short of breath and desaturates with activity. Review of Systems Review of Systems: All systems reviewed & are unremarkable except as noted in HPI and below Exam Narrative: General: In no acute distress, well nourished Head: atraumatic, no encephalopathy Eyes: PERRLA, sclera clear ENT: moist mucous membranes, nasal passages clear Neck: supple, no JVD, no adenopathy, trachea midline Cardiac: Normal S1 and S2. No murmur, gallops or friction rubs, peripheral pulses intact. Respiratory: Lungs with rhonchi throughout both lung almaguer, no other adventitious lung sounds, currently on 2 L nasal cannula, desaturate with activity Gastrointestinal: soft, non-distended, non-tender, normoactive bowel sounds. : voiding without difficulty. Extremities: moves all extremities well, no edema Skin: clean, dry, intact. No wounds or lesions. Neuro: Alert and oriented x4, cranial nerves intact, no neuro deficits. Psych: normal mood, normal affect, interactive Objective Data Vital Signs Vital Signs: Vital Signs - 24 hr 12/01/24 09:26 12/01/24 09:26 12/01/24 09:37 Temperature Pulse Rate 116 H 119 H Respiratory Rate 18 20 Blood Pressure Pulse Oximetry 91 Oxygen Delivery Nasal Cannula Oxygen Flow Rate 2 12/01/24 10:00 12/01/24 12:00 12/01/24 12:00 Temperature 98 F Pulse Rate 92 105 H 100 Respiratory Rate 24 H Blood Pressure 99/66 L Pulse Oximetry 93 Oxygen Delivery Oxygen Flow Rate 12/01/24 12:00 12/01/24 14:00 12/01/24 14:01 Temperature Pulse Rate 108 H 93 Respiratory Rate 20 Blood Pressure Pulse Oximetry 95 95 Oxygen Delivery Nasal Cannula Nasal Cannula Oxygen Flow Rate 2 2 12/01/24 14:01 12/01/24 14:15 12/01/24 16:00 Temperature 98.9 F Pulse Rate 100 108 H 100 Respiratory Rate 20 20 24 H Blood Pressure 105/65 Pulse Oximetry 94 Oxygen Delivery Oxygen Flow Rate 12/01/24 16:00 12/01/24 16:00 12/01/24 18:00 Temperature Pulse Rate 97 97 98 Respiratory Rate 20 Blood Pressure Pulse Oximetry 95 Oxygen Delivery Nasal Cannula Oxygen Flow Rate 2 12/01/24 19:08 12/01/24 19:57 12/01/24 19:59 Temperature 99.1 F Pulse Rate 100 95 Respiratory Rate 26 H 20 Blood Pressure 115/63 Pulse Oximetry 95 93 Oxygen Delivery Nasal Cannula Oxygen Flow Rate 2 12/01/24 20:00 12/01/24 20:06 12/01/24 20:30 Temperature Pulse Rate 94 96 Respiratory Rate 20 Blood Pressure Pulse Oximetry 93 Oxygen Delivery Nasal Cannula Oxygen Flow Rate 2 12/01/24 22:00 12/02/24 00:00 12/02/24 00:00 Temperature 98.4 F Pulse Rate 93 85 79 Respiratory Rate 22 H Blood Pressure 100/51 L Pulse Oximetry 95 Oxygen Delivery Oxygen Flow Rate 12/02/24 00:20 12/02/24 01:46 12/02/24 01:57 Temperature Pulse Rate 81 84 Respiratory Rate 20 20 Blood Pressure Pulse Oximetry 94 Oxygen Delivery Nasal Cannula Oxygen Flow Rate 2 12/02/24 02:00 12/02/24 04:00 12/02/24 04:00 Temperature 98.2 F Pulse Rate 83 86 88 Respiratory Rate 20 Blood Pressure 102/60 Pulse Oximetry 91 Oxygen Delivery Oxygen Flow Rate 12/02/24 04:10 12/02/24 06:00 12/02/24 07:17 Temperature Pulse Rate 82 Respiratory Rate Blood Pressure Pulse Oximetry 95 93 Oxygen Delivery Nasal Cannula Nasal Cannula Oxygen Flow Rate 2 2 12/02/24 07:17 12/02/24 07:33 12/02/24 08:00 Temperature Pulse Rate 80 84 84 Respiratory Rate 20 20 20 Blood Pressure Pulse Oximetry 93 Oxygen Delivery High Flow Therapy with Na Oxygen Flow Rate 2 12/02/24 08:00 Temperature 97.7 F Pulse Rate 93 Respiratory Rate 20 Blood Pressure 102/59 L Pulse Oximetry 92 Oxygen Delivery Oxygen Flow Rate Intake/Output Intake/Output: Intake & Output 11/29/24 11/30/24 12/01/24 12/02/24 23:59 23:59 23:59 23:59 Intake Total 2090 1330 1420 550 Output Total 1050 1500 1250 850 Balance 1040 -170 170 -300 Meds/Results Medications: Active Medications Generic Name Dose Route Start Last Admin Trade Name Freq PRN Reason Stop Dose Admin Acetaminophen 650 mg 11/13/24 21:48 11/29/24 21:11 Acetaminophen 325 Mg Tablet PO 650 mg Q4H PRN Administration Mild Pain (1-3) or Fever Acetylcysteine 200 mg 11/24/24 10:56 Acetylcysteine 20% Inhal Soln 800 Mg/4 Ml Vial INHALATION Q12HR PRN Congestion Acetylcysteine 200 mg 11/28/24 20:00 12/02/24 07:17 Acetylcysteine 20% Inhal Soln 800 Mg/4 Ml Vial INHALATION 200 mg Q12HRT DANE Administration Albuterol/Ipratropium 3 ml 11/23/24 11:56 11/23/24 15:00 Ipratropium 0.5 Mg/Albuterol Sulfate 2.5 Mg Ampul.Neb 3 Ml INHALATION 3 ml Q6HRT PRN Administration Dyspnea Albuterol/Ipratropium 3 ml 11/28/24 14:00 12/02/24 07:17 Ipratropium 0.5 Mg/Albuterol Sulfate 2.5 Mg Ampul.Neb 3 Ml INHALATION 3 ml Q6HRT DANE Administration Bupropion HCl 300 mg 11/14/24 09:00 12/02/24 08:15 Bupropion Hcl Xl (24 Hr) 150 Mg Tabcr BY MOUTH 300 mg DAILY DANE Administration Enoxaparin Sodium 40 mg 11/21/24 09:00 12/02/24 08:15 Enoxaparin 40 Mg/0.4 Ml Syringe SUB-Q 40 mg DAILY DANE Administration Ferrous Sulfate 325 mg 11/14/24 09:00 12/02/24 08:16 Ferrous Sulfate [address] BY MOUTH 325 mg DAILY DANE Administration Guaifenesin 1,200 mg 11/14/24 10:35 12/02/24 08:16 Guaifenesin 12 Hr 600 Mg Tabcr PO 1,200 mg Q12HR DANE Administration Levofloxacin/Dextrose 750 mg in 150 mls @ 100 mls/hr 11/26/24 08:00 12/02/24 08:20 Levaquin 750 Mg/D5w 150 Ml IVPB 100 mls/hr QAM DANE Administration Cefepime HCl 2 gm in 50 mls @ 100 mls/hr 11/27/24 13:00 12/02/24 06:55 Maxipime 2 Gm/Ns 50 Ml IVPB Infused Q8HR DANE Infusion Levetiracetam 500 mg 11/14/24 13:35 12/02/24 08:18 Levetiracetam 500 Mg Tablet PO 500 mg Q12HR DANE Administration Lidocaine 1 patch 11/14/24 09:00 12/02/24 08:13 Lidocaine 5% Patch TOPICAL 1 patch DAILY DANE Administration Loratadine 10 mg 11/27/24 13:10 12/02/24 08:18 Loratadine 10 Mg Tablet PO 10 mg QAM DANE Administration Midodrine 2.5 mg 11/14/24 09:00 12/02/24 08:18 Midodrine Hcl 2.5 Mg Tablet PO 2.5 mg BID DANE Administration Miscellaneous Information 0 each 12/01/24 00:01 12/01/24 18:13 Oxycodone Renew If Still Needs Or Will Auto D/C XX 12/31/24 00:00 Not Given CLARIFY DANE Nicotine 1 patch 11/30/24 22:15 12/02/24 08:19 Nicotine (*Pbkc) 14 Mg Patch TRANSDERM 1 patch DAILY DANE Administration Oxycodone HCl 10 mg 11/21/24 15:43 12/02/24 08:14 Oxycodone Hcl (*Crx) 5 Mg Tab Ir PO 10 mg Q4HR PRN Administration Pain Rated 4-6 Pantoprazole Sodium 40 mg 11/14/24 09:00 12/02/24 08:28 Pantoprazole 40 Mg Tablet PO 40 mg Q12HR DANE Administration Paroxetine HCl 40 mg 11/14/24 09:00 12/02/24 08:19 Paroxetine 20 Mg Tablet BY MOUTH 40 mg QAM DANE Administration Pregabalin 150 mg 11/14/24 09:00 12/02/24 08:17 Pregabalin (*Crx) 75 Mg Capsule PO 150 mg BID DANE Administration Sodium Chloride 1 spray 11/19/24 22:13 11/20/24 00:02 Saline 0.65% Meir Soln 44 Ml Btl NASAL 1 spray Q6HR PRN Administration Congestion Tizanidine HCl 4 mg 11/14/24 02:03 12/01/24 20:32 Tizanidine Hcl 4 Mg Tablet PO 4 mg TID PRN Administration muscle spasticity Trazodone HCl 100 mg 11/14/24 21:00 12/01/24 20:31 Trazodone Hcl 50 Mg Tablet PO 100 mg QHS DANE Administration Radiology Results: ITS Impressions Venous Doppler Study 11/20/24 19:54 IMPRESSION: Patent bilateral lower extremity veins. No evidence of deep venous thrombosis. Chest CTA 11/24/24 11:00 Impression: No evidence of pulmonary embolus, aortic dissection, or aortic aneurysm. Mild interval improvement in extensive right lung pneumonia/groundglass pulmonary disease. Complete left lower lobe atelectasis. Patchy small airways infection throughout the left upper lobe with extensive tree-in-bud opacities and nodularity similar to prior exam. Probable underlying chronic interstitial change extensively in the right lung base, especially right lower lobe. Mild emphysema. Chest CT 11/27/24 12:29 IMPRESSION: 1. Widespread pneumonia, left worse than right. 2. Mucous plugging in left mainstem bronchus. 3. 14 mm nodule in right lung lower lobe suspicious for primary bronchogenic carcinoma or metastatic disease. 4. Mild emphysema. Chest X-Ray 12/01/24 06:54 Impression: 1: Stable bilateral airspace disease, left greater than right. Differential diagnosis includes asymmetric edema and pneumonia. Labs Labs: Laboratory Results - last 24 hr 12/02/24 04:19 WBC 10.3 H RBC 4.01 L Hgb 10.3 L Hct 33.8 L MCV 84.3 MCH 25.7 L MCHC 30.5 L RDW 16.2 H Plt Count 348 MPV 9.4 Immature Gran % (Auto) 1.5 H Neut % (Auto) 71.1 Lymph % (Auto) 9.4 L [place] % (Auto) 10.2 H Eos % (Auto) 7.1 H Baso % (Auto) 0.7 Lymph # (Auto) 0.97 [place] # (Auto) 1.1 H Eos # (Auto) 0.7 H Baso # (Auto) 0.1 Abs Immat Gran (auto) 0.15 H Absolute Neuts (auto) 7.3 H Absolute Nucleated RBC 0.000 Nucleated RBC % 0.0 Sodium 139 Potassium 3.7 Chloride 101 Carbon Dioxide 34 H Anion Gap 4 BUN 19 Creatinine 0.88 Estim Creat Clear Calc 71 Estimated GFR > 60 Glucose 98 Calcium 8.9 Magnesium 2.1 Total Bilirubin 0.5 AST 23 ALT 14 Alkaline Phosphatase 78 Total Protein 7.0 Albumin 3.1 L Quality VTE Prophylaxis VTE prophylaxis: mechanical ordered and pharmacologic ordered
--- NOTE | 2024-12-02 13:29 | PM.PNPUL ---
Progress Note: A&P Assessment and Plan (1) Respiratory failure with hypoxia and hypercapnia: Code(s): J96.91 - Respiratory failure, unspecified with hypoxia; J96.92 - Respiratory failure, unspecified with hypercapnia Status: Acute Assessment and Plan: This 64-year-old man with COPD and previous lung resection for lung cancer, presented with acute respiratory failure due to a lower respiratory tract infection; testing (+) influenza A, human metapneumovirus (hMPV), and a urine test was positive for pneumococcal antigen, indicating a pneumonia likely caused by multiple infectious agents. The patient has been treated for influenza A, now is on Cefepime and Levaquin, a repeat course. WBC is minimally higher. No fever. He continues to cough significant amounts of sputum that is discolored, yellow-green and at times, brown. He is on 2 L/min, saturation 92-95%. He was on high flow, can change to regular cannula. He continues to experience shortness of breath but does not have a fever or signs of sepsis. He has a productive cough with dark yellow sputum. Given the positive respiratory panel for hMPV and the slow response to antibiotics, it is possible that hMPV is contributing significantly to his pneumonia. Typically, pneumococcal pneumonia responds to antibiotics within 48 hours. Severe pneumonia due to hMPV has been documented in patients with underlying conditions such as COPD or compromised immune systems. Severe pneumonia related to influenza A is is more likely in this setting. Recent chest imaging studies revealed significant improvement in the severe pneumonia previously affecting the right lung, but also identified new pneumonia in the left lung and atelectasis in the left lower lobe. Additionally, a new 1.4 cm nodule was detected in the right lower lobe, which is highly suspicious for cancer recurrence. Since Nov 26, he has been treated for nosocomial pneumonia affecting the left lung. Despite this, the patient?s overall clinical condition has remained stable, with no significant increase in oxygen requirements.today, the wbc increased a little 10.8 without left shift. He is coughing large amounts of dark sputum, 7-8 times a day, 1/2 tablespoon. he continues to mobilize secretions. CXR today 12/02 is stable per the radiologist. The most recent sputum culture identified yeast, Elva albicans Plan: Continue to closely monitor the patient?s respiratory status. Maintain the current antibiotic regimen. Continue administering short-acting bronchodilators and mucolytic agents. Encourage the use of lung clearing techniques, such as the Cornet device and incentive spirometry, to address left lower lung atelectasis, and increased bronchial secretions. If everything goes well anticipate discharge home in 2-3 days. (2) History of lung cancer: Code(s): Z85.118 - Personal history of other malignant neoplasm of bronchus and lung Status: Acute Assessment and Plan: had Right thoracotomy 4-5 years ago, quit smoking for several years, re-started smoking; now has a new RLL nodule over a cm (3) Chronic narcotic use: Code(s): F11.90 - Opioid use, unspecified, uncomplicated Status: Acute Assessment and Plan: (4) Influenza A: Code(s): J10.1 - Influenza due to other identified influenza virus with other respiratory manifestations Status: Acute Assessment and Plan: (+) on Nov 13, treated with Tamiflu; developed secondary bacterial pneumonia, also had human metapneumovirus on his respiratory screen (h MPV); this can be associated with prolonged coughing. (5) COPD (chronic obstructive pulmonary disease): Qualifiers: COPD type: unspecified COPD Qualified Code(s): J44.9 - Chronic obstructive pulmonary disease, unspecified Code(s): J44.9 - Chronic obstructive pulmonary disease, unspecified Status: Acute Assessment and Plan: currently on nebulized albuterol and ipratropium , not on controller medications. I will restart his Trelegy 100, one puff a day. (6) Nodule of right lung: Code(s): R91.1 - Solitary pulmonary nodule Status: Acute Assessment and Plan: RLL 1.4 cm, needs out patient follow up, PET scan. This was found this admission, suspicious for cancer recurrence. He needs to recover from this prolonged admission before work up. Plan plan: 1) downgraded to medical per hospitalist; he will move out of IMU 2) Add vibratory vest in addition to his Cornet PEP valve to clear secretions. we adjusted Cornet setting to increased resistance, clear more secretions. 3) Has been on Mucomyst inhaled since Nov 25. Not sure it is helping so much. Drink more liquids to thin secretions. 4) Add COPD controller meds. He was on Trelegy at home. Restart Trelegy 100. Stop ipratropium nebulized. 5) He needs home O2 evaluation before leaving, plan for Wednesday. 6) Tobacco cessation; he started craving cigarettes, now on 14 mg nicotine patch. We will address tobacco cessation more before he leaves. does not smoke, he lives at home with her. Subjective Date/time seen: 12/02/24 13:29 Interval history: 12/02/24; pulmonary follow up: 64 year old man admitted Feb 10 with influenza A, COPD, and Left post obstructive pneumonia; 11/14= (+) urine pneumococcal antigen, and 11/17 serology showed human metapneumovirus. Today his WBC is higher, 10.3, no left shift. CXR today 12/02/ = stable; No significant change in bilateral lung disease, left greater than right consistent with multifocal pneumonia. 2. Possible small left pleural effusion. He is on Cefepime#6 and Levaquin#5; he was on these earlier this admission, re-started. his daughter Tammy is at bedside. Patient is coughing 7-8 episodes of thick yellow-green and yellow-brown sputum 10/05 tablespoon. He is on 2 L/min, sat 92-95%. No fevers. 12/01/24 Patient stated he is doing better. Has been coughing more phlegm over the last couple of days. Phlegm is light yellow. He has no fever chills hemoptysis. Appetite picking up. Spends time out of bed in the chair. Review of Systems Review of Systems: All systems reviewed & are unremarkable except as noted in HPI and below Exam Narrative: GEN: Alert, oriented, not in distress. He is sitting in a chair, 2 L/min nasal cannula, saturation 92% HEENT: pupils are equal, EOMI, symmetrical face NECK: Trachea is midline CHEST: Scar around right upper chest posteriorly. Decreased breath sounds in the right base. no wheezing. CV: Regular S1S2 no m/g/r Extremities : no clubbing, cyanosis, or edema PSYCH: normal thought and speech, gait is not tested. Objective Data Vital Signs Vital Signs: Vital Signs - 24 hr 12/01/24 14:00 12/01/24 14:01 12/01/24 14:01 Temperature Pulse Rate 93 100 Respiratory Rate 20 Blood Pressure Pulse Oximetry 95 Oxygen Delivery Nasal Cannula Oxygen Flow Rate 2 12/01/24 14:15 12/01/24 16:00 12/01/24 16:00 Temperature 37.2 C Pulse Rate 108 H 100 97 Respiratory Rate 20 24 H Blood Pressure 105/65 Pulse Oximetry 94 Oxygen Delivery Oxygen Flow Rate 12/01/24 16:00 12/01/24 18:00 12/01/24 19:08 Temperature 37.3 C Pulse Rate 97 98 100 Respiratory Rate 20 26 H Blood Pressure 115/63 Pulse Oximetry 95 95 Oxygen Delivery Nasal Cannula Oxygen Flow Rate 2 12/01/24 19:57 12/01/24 19:59 12/01/24 20:00 Temperature Pulse Rate 95 94 Respiratory Rate 20 Blood Pressure Pulse Oximetry 93 Oxygen Delivery Nasal Cannula Oxygen Flow Rate 2 12/01/24 20:06 12/01/24 20:30 12/01/24 22:00 Temperature Pulse Rate 96 93 Respiratory Rate 20 Blood Pressure Pulse Oximetry 93 Oxygen Delivery Nasal Cannula Oxygen Flow Rate 2 12/02/24 00:00 12/02/24 00:00 12/02/24 00:20 Temperature 36.9 C Pulse Rate 85 79 Respiratory Rate 22 H Blood Pressure 100/51 L Pulse Oximetry 95 94 Oxygen Delivery Nasal Cannula Oxygen Flow Rate 2 12/02/24 01:46 12/02/24 01:57 12/02/24 02:00 Temperature Pulse Rate 81 84 83 Respiratory Rate 20 20 Blood Pressure Pulse Oximetry Oxygen Delivery Oxygen Flow Rate 12/02/24 04:00 12/02/24 04:00 12/02/24 04:10 Temperature 36.8 C Pulse Rate 86 88 Respiratory Rate 20 Blood Pressure 102/60 Pulse Oximetry 91 95 Oxygen Delivery Nasal Cannula Oxygen Flow Rate 2 12/02/24 06:00 12/02/24 07:17 12/02/24 07:17 Temperature Pulse Rate 82 80 Respiratory Rate 20 Blood Pressure Pulse Oximetry 93 Oxygen Delivery Nasal Cannula Oxygen Flow Rate 2 12/02/24 07:33 12/02/24 08:00 12/02/24 08:00 Temperature 36.5 C Pulse Rate 84 84 93 Respiratory Rate 20 20 20 Blood Pressure 102/59 L Pulse Oximetry 93 92 Oxygen Delivery High Flow Therapy with Na Oxygen Flow Rate 2 12/02/24 08:00 12/02/24 10:00 12/02/24 12:00 Temperature 36.7 C Pulse Rate 91 88 90 Respiratory Rate 20 Blood Pressure 104/73 Pulse Oximetry 97 Oxygen Delivery Oxygen Flow Rate 12/02/24 12:00 12/02/24 12:00 12/02/24 13:25 Temperature Pulse Rate 95 95 96 Respiratory Rate 20 20 Blood Pressure Pulse Oximetry 92 Oxygen Delivery High Flow Therapy with Na Oxygen Flow Rate 2 Intake/Output Intake/Output: Intake & Output 11/29/24 11/30/24 12/01/24 12/02/24 23:59 23:59 23:59 23:59 Intake Total 2090 1330 1420 670 Output Total 1050 1500 1250 850 Balance 1040 -170 170 -180 Meds/Results Medications: Active Medications Generic Name Dose Route Start Last Admin Trade Name Freq PRN Reason Stop Dose Admin Acetaminophen 650 mg 11/13/24 21:48 11/29/24 21:11 Acetaminophen 325 Mg Tablet PO 650 mg Q4H PRN Administration Mild Pain (1-3) or Fever Acetylcysteine 200 mg 11/24/24 10:56 Acetylcysteine 20% Inhal Soln 800 Mg/4 Ml Vial INHALATION Q12HR PRN Congestion Acetylcysteine 200 mg 11/28/24 20:00 12/02/24 07:17 Acetylcysteine 20% Inhal Soln 800 Mg/4 Ml Vial INHALATION 200 mg Q12HRT DANE Administration Albuterol/Ipratropium 3 ml 11/23/24 11:56 11/23/24 15:00 Ipratropium 0.5 Mg/Albuterol Sulfate 2.5 Mg Ampul.Neb 3 Ml INHALATION 3 ml Q6HRT PRN Administration Dyspnea Albuterol/Ipratropium 3 ml 11/28/24 14:00 12/02/24 13:23 Ipratropium 0.5 Mg/Albuterol Sulfate 2.5 Mg Ampul.Neb 3 Ml INHALATION 3 ml Q6HRT DANE Administration Bupropion HCl 300 mg 11/14/24 09:00 12/02/24 08:15 Bupropion Hcl Xl (24 Hr) 150 Mg Tabcr BY MOUTH 300 mg DAILY DANE Administration Enoxaparin Sodium 40 mg 11/21/24 09:00 12/02/24 08:15 Enoxaparin 40 Mg/0.4 Ml Syringe SUB-Q 40 mg DAILY DANE Administration Ferrous Sulfate 325 mg 11/14/24 09:00 12/02/24 08:16 Ferrous Sulfate [address] BY MOUTH 325 mg DAILY DANE Administration Guaifenesin 1,200 mg 11/14/24 10:35 12/02/24 08:16 Guaifenesin 12 Hr 600 Mg Tabcr PO 1,200 mg Q12HR DANE Administration Levofloxacin/Dextrose 750 mg in 150 mls @ 100 mls/hr 11/26/24 08:00 12/02/24 08:20 Levaquin 750 Mg/D5w 150 Ml IVPB 100 mls/hr QAM DANE Administration Cefepime HCl 2 gm in 50 mls @ 100 mls/hr 11/27/24 13:00 12/02/24 06:55 Maxipime 2 Gm/Ns 50 Ml IVPB Infused Q8HR DANE Infusion Levetiracetam 500 mg 11/14/24 13:35 12/02/24 08:18 Levetiracetam 500 Mg Tablet PO 500 mg Q12HR DANE Administration Lidocaine 1 patch 11/14/24 09:00 12/02/24 08:13 Lidocaine 5% Patch TOPICAL 1 patch DAILY DANE Administration Loratadine 10 mg 11/27/24 13:10 12/02/24 08:18 Loratadine 10 Mg Tablet PO 10 mg QAM DANE Administration Midodrine 2.5 mg 11/14/24 09:00 12/02/24 08:18 Midodrine Hcl 2.5 Mg Tablet PO 2.5 mg BID DANE Administration Miscellaneous Information 0 each 12/01/24 00:01 12/01/24 18:13 Oxycodone Renew If Still Needs Or Will Auto D/C XX 12/31/24 00:00 Not Given CLARIFY DANE Nicotine 1 patch 11/30/24 22:15 12/02/24 08:19 Nicotine (*Pbkc) 14 Mg Patch TRANSDERM 1 patch DAILY DANE Administration Oxycodone HCl 10 mg 11/21/24 15:43 12/02/24 08:14 Oxycodone Hcl (*Crx) 5 Mg Tab Ir PO 10 mg Q4HR PRN Administration Pain Rated 4-6 Pantoprazole Sodium 40 mg 11/14/24 09:00 12/02/24 08:28 Pantoprazole 40 Mg Tablet PO 40 mg Q12HR DANE Administration Paroxetine HCl 40 mg 11/14/24 09:00 12/02/24 08:19 Paroxetine 20 Mg Tablet BY MOUTH 40 mg QAM DANE Administration Pregabalin 150 mg 11/14/24 09:00 12/02/24 08:17 Pregabalin (*Crx) 75 Mg Capsule PO 150 mg BID DANE Administration Sodium Chloride 1 spray 11/19/24 22:13 11/20/24 00:02 Saline 0.65% Meir Soln 44 Ml Btl NASAL 1 spray Q6HR PRN Administration Congestion Tizanidine HCl 4 mg 11/14/24 02:03 12/01/24 20:32 Tizanidine Hcl 4 Mg Tablet PO 4 mg TID PRN Administration muscle spasticity Trazodone HCl 100 mg 11/14/24 21:00 12/01/24 20:31 Trazodone Hcl 50 Mg Tablet PO 100 mg QHS DANE Administration Radiology Results: ITS Impressions Venous Doppler Study 11/20/24 19:54 IMPRESSION: Patent bilateral lower extremity veins. No evidence of deep venous thrombosis. Chest CTA 11/24/24 11:00 Impression: No evidence of pulmonary embolus, aortic dissection, or aortic aneurysm. Mild interval improvement in extensive right lung pneumonia/groundglass pulmonary disease. Complete left lower lobe atelectasis. Patchy small airways infection throughout the left upper lobe with extensive tree-in-bud opacities and nodularity similar to prior exam. Probable underlying chronic interstitial change extensively in the right lung base, especially right lower lobe. Mild emphysema. Chest CT 11/27/24 12:29 IMPRESSION: 1. Widespread pneumonia, left worse than right. 2. Mucous plugging in left mainstem bronchus. 3. 14 mm nodule in right lung lower lobe suspicious for primary bronchogenic carcinoma or metastatic disease. 4. Mild emphysema. Chest X-Ray 12/02/24 12:37 IMPRESSION: 1. No significant change in bilateral lung disease, left greater than right consistent with multifocal pneumonia. 2. Possible small left pleural effusion. Labs Labs: Laboratory Results - last 24 hr 12/02/24 04:19 WBC 10.3 H RBC 4.01 L Hgb 10.3 L Hct 33.8 L MCV 84.3 MCH 25.7 L MCHC 30.5 L RDW 16.2 H Plt Count 348 MPV 9.4 Immature Gran % (Auto) 1.5 H Neut % (Auto) 71.1 Lymph % (Auto) 9.4 L Hawkins % (Auto) 10.2 H Eos % (Auto) 7.1 H Baso % (Auto) 0.7 Lymph # (Auto) 0.97 Hawkins # (Auto) 1.1 H Eos # (Auto) 0.7 H Baso # (Auto) 0.1 Abs Immat Gran (auto) 0.15 H Absolute Neuts (auto) 7.3 H Absolute Nucleated RBC 0.000 Nucleated RBC % 0.0 Sodium 139 Potassium 3.7 Chloride 101 Carbon Dioxide 34 H Anion Gap 4 BUN 19 Creatinine 0.88 Estim Creat Clear Calc 71 Estimated GFR > 60 Glucose 98 Calcium 8.9 Magnesium 2.1 Total Bilirubin 0.5 AST 23 ALT 14 Alkaline Phosphatase 78 Total Protein 7.0 Albumin 3.1 L
[2024-12-02] MEDS: NYSTATIN 100,000 UNITS/ML SUSP 5 ML ORAL.SUSP PO ×2 (16:56→20:32)
--- NOTE | 2024-12-02 18:59 | PC.NURSE ---
This patient, Kiran Smith, was transferred to [facility] on 12/02/24 at 1833 via bed without issue. Personal belongings sent with patient. Report given to AMBIKA Cardenas. Appropriate documentation sent with patient
[2024-12-02] MEDS: MICONAZOLE NITRATE 2% CREAM 30 GM TUBE 1 APPLIC TOPICAL (20:32)
[2024-12-02] MEDS: traZODone HCL 50 MG TABLET 100 MG PO (21:15)
[2024-12-03] VITALS (10 sets, daily range): BP systolic 101–111; BP diastolic 65–87; PULSE 71–87; RESP 16–20; TEMP 36.6–37.1; O2SAT 90–96
[2024-12-03] MEDS: SALINE 0.65% NAS SOLN 44 ML BTL 1 SPRAY NASAL (02:12)
[2024-12-03] MEDS: TIZANIDINE HCL 4 MG TABLET PO (02:12)
[2024-12-03] MEDS: oxyCODONE HCL (*CRX) 5 MG TAB IR 10 MG PO ×5 (02:12→21:15)
[2024-12-03] MEDS: CEFEPIME 2 GM/NS 50 ML 2 GM/50 ML BAG IVPB ×3 (05:56→20:49)
--- NOTE | 2024-12-03 07:02 | PM.IMPN ---
Progress Note: A&P Assessment and Plan (1) Postobstructive pneumonia: Code(s): J18.9 - Pneumonia, unspecified organism Status: Acute Assessment and Plan: Influenza A positive--completed Tamiflu course Human metapneumovirus positive Urine strep positive Continue incentive spirometry and cornet flutter valve to a and sputum expectoration, will hold off on chest PT considering improvement and oxygenation Continue guaifenesin continue DuoNebs Pulmonology consulted Continue PT and OT Chest x-ray today showing no significant change in bilateral lung disease, left greater than right consistent multifocal pneumonia, possible small left pleural effusion Continue cefepime and levofloxacin Flagyl discontinued on 11/22/2024 Currently on 2 L nasal cannula, continue to wean O2 for sat greater than 92% Okay to move out of IMU today on telemetry 3/2 Continue Cefepime for now, currently on day 7 of therapy Changed Levaquin to oral, currently on day 6 of therapy Pulmonology following Continue to wean O2 Continue Pep therapy and CPT per pulmonology recommendation Continue PT and OT Continue Duonebs and guaifenesin (2) Influenza A: Code(s): J10.1 - Influenza due to other identified influenza virus with other respiratory manifestations Status: Acute Assessment and Plan: Improving Influenza A positive. Completed Tamiflu course Continue to wean O2 for sat greater than 92%, currently on 2 L nasal cannula Continue PT and OT 3/2 No change (3) COPD (chronic obstructive pulmonary disease): Qualifiers: COPD type: unspecified COPD Qualified Code(s): J44.9 - Chronic obstructive pulmonary disease, unspecified Code(s): J44.9 - Chronic obstructive pulmonary disease, unspecified Status: Acute Assessment and Plan: See above plan of care (4) Hypokalemia: Code(s): E87.6 - Hypokalemia Status: Acute Assessment and Plan: Potassium 3.7 No replacement needed Continue to trend 3/2 K+ 4.2, resolved (5) Back pain: Qualifiers: Back pain laterality: unspecified Back pain location: thoracic back pain Chronicity: unspecified Qualified Code(s): M54.6 - Pain in thoracic spine Code(s): M54.9 - Dorsalgia, unspecified Status: Acute Assessment and Plan: Continue pain control 3/2 No change (6) Nodule of right lung: Code(s): R91.1 - Solitary pulmonary nodule Status: Acute Assessment and Plan: 11/27 CT a chest 14 mm nodule in right lung lower lobe suspicious for primary bronchogenic carcinoma or metastatic disease. Not seen in previous CTs--will need outpatient follow-up Pulmonology following 12/03 No change (7) Constipation: Code(s): K59.00 - Constipation, unspecified Status: Acute Assessment and Plan: 12/03 KUB showing moderate stool burden, no ileus or obstruction Last BM was on Nov 15 Patient reports that he only has a BM every 2 weeks??? Will start Lactulose Will need bowel regimen for at home considering ferrous sulfate and narcotic use Time Spent With Patient Time with patient: 25 - 35 minutes Subjective Date/time seen: 12/03/24 07:02 Interval history: Interval history: This is a 64 year old male with a significant past medical history of tobacco abuse, lung cancer s/p right middle lobe lobectomy in 2019, vitamin B 12 deficiency, HONG, chronic pain, GERD who presented to the hospital on 11/14/24 with complaints of shortness of breath/dyspnea. He was brought in by EMS on 11/13/24 and received Duoneb breathing treatment in route to the hospital. Work up in the hospital included a chest x-ray which shown a small right sided pleural effusion without focal infiltrate. Chest CTA was negative for PE or thoracic aortic dissection, did shown obstruction of the left lower lobe bronchus with postobstructive consolidation. Initial labs revealed a white blood cell count of 11.1, hemoglobin 12.6, D-dimer 0.83, sodium 135, blood sugars ranging 112-152, calcium 8.3, magnesium 1.9, troponin negative. Respiratory panel was positive for influenza A. Blood cultures from 11/13/24 were negative on final read. Sputum culture shown alana albicans on final read. Repeat blood cultures on 11/26/24 were also negative on final read. EKG showed sinus rhythm with a rate of 67, QTC 420. Echocardiogram on 11/21/2024 showed normal LV systolic function with an estimated EF of 55-60%, grade 1 diastolic dysfunction. He was started on azithromycin, Rocephin, Flagyl and Tamiflu. He was also started on DuoNebs and Solu-Medrol. Pulmonology was consulted in added pep therapy and guaifenesin 1200 mg p.o. b.i.d. On 11/17/2024 patient became tachypneic and desaturated down into the 80s. He was started on Vapotherm at 45 L and 90%. He had a repeat chest x-ray which showed significant hazy opacities in the entire right lung field worsened from admission. He was given 1 dose of 40 mg IV Lasix. His antibiotics were changed from Rocephin and azithromycin to Levofloxacin and cefepime. Chest PT was ordered an ABG was showing but stated hypercapnia. A full viral respiratory panel was obtained and he was transferred to IMU. 11/18/24 he was decreased to 10L high flow oxygen and remained IMU status 11/19/24 urine streptococcal antigen from 11/14/24 was positive. CXR showed improved aeration the right hemithorax, extensive infiltration persist. 11/20/24 his respiratory panel was positive for HMPV and Flagyl was discontinued. Chest CT showed diffuse lung disease with worsening on the right and improvement on the left consistent with pneumonia, mild emphysema. Venous Dopplers were negative for DVT. Chest x-ray showed increased subsegmental right basilar atelectasis/consolidation otherwise unchanged pulmonary opacities. CRP elevated at 14.0 11/21/24 patient was placed back on Airvo with an FIO2 of 100% due to grunting respirations and acute respiratory distress with hypoxia of 80%, likely due to mucous plugging. Chest x-ray shown extensive right basilar and right perihilar pneumonia, minimal right pleural effusion, minimal left basilar atelectasis. 11/22/2024 he was started on Mucomyst treatments. Chest x-ray showed extensive bibasilar/perihilar space disease showing pulmonary edema versus pneumonia, minimal pleural effusion. Currently still on Airvo. CRP 6.3 11/23/2024 Airvo down to 60% and PT and OT were able to get patient up out of the bed today. Continued with aggressive pulmonary toilet, Mucomyst and antibiotics. 11/24/2024 CRP down to 2.5 Chest CTA was negative for PE, aortic dissection or aneurysm, mild interval improvement in extensive right lung pneumonia/groundlass pulmonary disease, complete left lower lobe atelectasis, patchy small airway infection throughout the left upper lobe with extensive tree-in-bud opacities and modularity similar to prior exam, underlying chronic interstitial change extensively in the right lung base, mild emphysema 11/25/2024 white blood cell count went up to 14.1 with left shift. Cefepime 1 gm q8h ordered. Continue Mucomyst and bronchodilators. He was given a dose of Vancomycin. suspected nosocomial pneumonia. 11/26/24 CXR showing whiteout of left lung. CRP increased to 6.6. 11/27/24: CT of chest revealed widespread pneumonia, left worse than right, mucous plugging in left mainstem bronchus, 14mm nodule in right lower lobe suspicious for primary bronchogenic carcinoma or metastatic disease, mild emphysema. Vancomycin was discontinued due to negative MRSA. 11/30/24: Patient switched from Airvo to high flow nasal cannula considering improvement over the last 72 hours. He started at 10L and was weaned down to 2L HFNC 12/01/23: CXR shown stable bilateral airspace disease, left greater than right. Remained on 2L HFNC. Continued to improve. 12/02/24: Moved out of IMU on 2L NC. Subjective: Patient denies any new complaints today. Nursing reported that patient has not had a bowel movement since November 15. Patient states that he has a bowel movement every 2 weeks. KUB ordered which did not show any evidence of ileus or obstruction only showed moderate stool burden. labs reviewed. Review of Systems Review of Systems: All systems reviewed & are unremarkable except as noted in HPI and below Constitutional: Constitutional: Reports no additional constitutional complaints Eyes: Eyes: Reports no additional eye complaints ENT: Reports system reviewed and no additional complaints, except as documented Cardiovascular: Cardiovascular: Reports no additional cardiovascular complaints, Reports dyspnea and Reports dyspnea on exertion Respiratory: Respiratory: Reports cough, Reports dyspnea and Reports dyspnea on exertion Gastrointestinal: Gastrointestinal: Reports no additional gastrointestinal complaints Musculoskeletal: Musculoskeletal: Reports no additional musculoskeletal complaints Neurologic: Reports system reviewed and no additional complaints, except as documented Exam Narrative: General: In no acute distress, well nourished Cardiac: Normal S1 and S2. No murmur, gallops or friction rubs, peripheral pulses intact. Respiratory: Lungs clear, no other adventitious lung sounds, currently on 2 L nasal cannula, desaturate with activity Gastrointestinal: soft, non-distended, non-tender,hypoactive bowel sounds. : voiding without difficulty. Neuro: Alert and oriented x4 Objective Data Vital Signs Vital Signs: Vital Signs - 24 hr 12/02/24 07:17 12/02/24 07:17 12/02/24 07:33 Temperature Pulse Rate 80 84 Respiratory Rate 20 20 Blood Pressure Pulse Oximetry 93 Oxygen Delivery Nasal Cannula Oxygen Flow Rate 2 12/02/24 08:00 12/02/24 08:00 12/02/24 08:00 Temperature 97.7 F Pulse Rate 84 93 91 Respiratory Rate 20 20 Blood Pressure 102/59 L Pulse Oximetry 93 92 Oxygen Delivery High Flow Therapy with Na Oxygen Flow Rate 2 12/02/24 10:00 12/02/24 12:00 12/02/24 12:00 Temperature 98.1 F Pulse Rate 88 90 95 Respiratory Rate 20 Blood Pressure 104/73 Pulse Oximetry 97 Oxygen Delivery Oxygen Flow Rate 12/02/24 12:00 12/02/24 13:25 12/02/24 13:36 Temperature Pulse Rate 95 96 99 Respiratory Rate 20 20 20 Blood Pressure Pulse Oximetry 92 Oxygen Delivery High Flow Therapy with Na Oxygen Flow Rate 2 12/02/24 14:00 12/02/24 16:00 12/02/24 16:00 Temperature 97.4 F L Pulse Rate 104 H 96 98 Respiratory Rate 20 Blood Pressure 90/56 L Pulse Oximetry 95 Oxygen Delivery Oxygen Flow Rate 12/02/24 20:00 12/02/24 20:00 12/02/24 21:44 Temperature 98.2 F Pulse Rate 93 82 Respiratory Rate 16 Blood Pressure 111/88 Pulse Oximetry 93 93 Oxygen Delivery High Flow Therapy with Na Oxygen Flow Rate 2 12/03/24 00:00 12/03/24 04:00 12/03/24 06:00 Temperature 97.8 F Pulse Rate 76 77 78 Respiratory Rate 17 Blood Pressure 101/66 Pulse Oximetry 95 Oxygen Delivery Oxygen Flow Rate Intake/Output Intake/Output: Intake & Output 11/30/24 12/01/24 12/02/24 12/03/24 23:59 23:59 23:59 23:59 Intake Total 1330 1420 1280 Output Total 1500 1250 850 Balance -170 170 430 Meds/Results Medications: Active Medications Generic Name Dose Route Start Last Admin Trade Name Freq PRN Reason Stop Dose Admin Acetaminophen 650 mg 11/13/24 21:48 11/29/24 21:11 Acetaminophen 325 Mg Tablet PO 650 mg Q4H PRN Administration Mild Pain (1-3) or Fever Bupropion HCl 300 mg 02/11/25 09:00 12/02/24 08:15 Bupropion Hcl Xl (24 Hr) 150 Mg Tabcr BY MOUTH 300 mg DAILY DANE Administration Enoxaparin Sodium 40 mg 11/21/24 09:00 12/02/24 08:15 Enoxaparin 40 Mg/0.4 Ml Syringe SUB-Q 40 mg DAILY DANE Administration Ferrous Sulfate 325 mg 11/14/24 09:00 12/02/24 08:16 Ferrous Sulfate [address] BY MOUTH 325 mg DAILY DANE Administration Fluticasone/Umeclidinium/Vilanterol 1 puff 12/03/24 08:00 Fluticasone/Umeclidin/Vilanter 100-62.5-25 Mcg Ellipta INHALATION DAILYRT [facility] Guaifenesin 1,200 mg 11/14/24 10:35 12/02/24 20:32 Guaifenesin 12 Hr 600 Mg Tabcr PO 1,200 mg Q12HR DANE Administration Levofloxacin/Dextrose 750 mg in 150 mls @ 100 mls/hr 11/26/24 08:00 12/02/24 09:50 Levaquin 750 Mg/D5w 150 Ml IVPB Infused QAM DANE Infusion Cefepime HCl 2 gm in 50 mls @ 100 mls/hr 11/27/24 13:00 12/03/24 05:56 Maxipime 2 Gm/Ns 50 Ml IVPB 100 mls/hr Q8HR DANE Administration Levetiracetam 500 mg 11/14/24 13:35 12/02/24 20:32 Levetiracetam 500 Mg Tablet PO 500 mg Q12HR DANE Administration Lidocaine 1 patch 11/14/24 09:00 12/02/24 08:13 Lidocaine 5% Patch TOPICAL 1 patch DAILY DANE Administration Loratadine 10 mg 11/27/24 13:10 12/02/24 08:18 Loratadine 10 Mg Tablet PO 10 mg QAM [facility] Administration Miconazole Nitrate 1 applic 12/02/24 21:00 12/02/24 20:32 Miconazole Nitrate 2% Cream 30 Gm Tube TOPICAL 1 applic Q12HR DANE Administration Midodrine 2.5 mg 11/14/24 09:00 12/02/24 16:57 Midodrine Hcl 2.5 Mg Tablet PO 2.5 mg BID DANE Administration Miscellaneous Information 0 each 12/01/24 00:01 12/02/24 22:10 Oxycodone Renew If Still Needs Or Will Auto D/C XX 12/31/24 00:00 Not Given CLARIFY DANE Nicotine 1 patch 11/30/24 22:15 12/02/24 08:19 Nicotine (*Pbkc) 14 Mg Patch TRANSDERM 1 patch DAILY DANE Administration Nystatin 5 ml 12/02/24 17:00 12/02/24 20:32 Nystatin 100,000 Units/Ml Susp 5 Ml Oral.Susp PO 5 ml QID DANE Administration Oxycodone HCl 10 mg 11/21/24 15:43 12/03/24 02:12 Oxycodone Hcl (*Crx) 5 Mg Tab Ir PO 10 mg Q4HR PRN Administration Pain Rated 4-6 Pantoprazole Sodium 40 mg 11/14/24 09:00 12/02/24 20:32 Pantoprazole 40 Mg Tablet PO 40 mg Q12HR DANE Administration Paroxetine HCl 40 mg 11/14/24 09:00 12/02/24 08:19 Paroxetine 20 Mg Tablet BY MOUTH 40 mg QAM DANE Administration Pregabalin 150 mg 11/14/24 09:00 12/02/24 16:57 Pregabalin (*Crx) 75 Mg Capsule PO 150 mg BID DANE Administration Sodium Chloride 1 spray 11/19/24 22:13 12/03/24 02:12 Saline 0.65% Meir Soln 44 Ml Btl NASAL 1 spray Q6HR PRN Administration Congestion Tizanidine HCl 4 mg 11/14/24 02:03 12/03/24 02:12 Tizanidine Hcl 4 Mg Tablet PO 4 mg TID PRN Administration muscle spasticity Trazodone HCl 100 mg 11/14/24 21:00 12/02/24 21:15 Trazodone Hcl 50 Mg Tablet PO 100 mg QHS DANE Administration Radiology Results: ITS Impressions Venous Doppler Study 11/20/24 19:54 IMPRESSION: Patent bilateral lower extremity veins. No evidence of deep venous thrombosis. Chest CTA 11/24/24 11:00 Impression: No evidence of pulmonary embolus, aortic dissection, or aortic aneurysm. Mild interval improvement in extensive right lung pneumonia/groundglass pulmonary disease. Complete left lower lobe atelectasis. Patchy small airways infection throughout the left upper lobe with extensive tree-in-bud opacities and nodularity similar to prior exam. Probable underlying chronic interstitial change extensively in the right lung base, especially right lower lobe. Mild emphysema. Chest CT 11/27/24 12:29 IMPRESSION: 1. Widespread pneumonia, left worse than right. 2. Mucous plugging in left mainstem bronchus. 3. 14 mm nodule in right lung lower lobe suspicious for primary bronchogenic carcinoma or metastatic disease. 4. Mild emphysema. Chest X-Ray 12/02/24 12:37 IMPRESSION: 1. No significant change in bilateral lung disease, left greater than right consistent with multifocal pneumonia. 2. Possible small left pleural effusion. Quality VTE Prophylaxis VTE prophylaxis: mechanical ordered and pharmacologic ordered
[2024-12-03 07:52] LABS: Basophils Absolute Auto 0.1 K/mm3 (0.0-0.1); Basophils Percent Auto 0.7 % (0.2-1.2); Eosinophils Percent Auto 9.5 % (0-4.4); Hematocrit 33.6 % (42.0-52.0); Hemoglobin 10.2 g/dL (14.0-18.0); Immature Granulocyte Absolute 0.25 K/mm3 (0.00-0.031); Immature Granulocyte Percent A 2.4 % (0-0.5); Lymphocytes Absolute Auto 1.01 K/mm3 (0.9-3.2); Lymphocytes Percent Auto 9.6 % (18.3-44.2); Mean Corpuscular HGB Conc 30.4 g/dl (32-36); Mean Corpuscular Hemoglobin 25.6 pg (26-34); Mean Corpuscular Volume 84.4 fl (80-100); Monocytes Absolute Auto 0.9 K/mm3 (0.1-0.6); Monocytes Percent Auto 8.2 % (2.6-8.5); Neutrophils Absolute Auto 7.3 K/mm3 (1.3-6.7); Neutrophils Percent Auto 69.6 % (45.5-73.1); Platelet Count Result 331 k/mm3 (150-375); Red Blood Count 3.98 M/mm3 (4.6-6.20); Red Cell Distribution Width 16.3 % (11.5-14.5); White Blood Count 10.5 K/mm3 (4.5-10.0)
[2024-12-03 08:06] LABS: Alanine Aminotransferase 15 U/L (6-50); Albumin Level 3.1 g/dL (3.5-5.1); Alkaline Phosphatase 74 U/L (38-126); Anion Gap 5 mmol/L (4-12); Aspartate Amino Transferase 26 U/L (17-59); Bilirubin,Total 0.4 mg/dL (0.2-1.3); Blood Urea Nitrogen 19 mg/dL (9-20); Calcium 8.6 mg/dL (8.4-10.2); Carbon Dioxide 30 mmol/L (22-30); Chloride 104 mmol/L (98-107); Estimated CRCL calculation 83 ml/min; Estimated Glomerular Filt Rate > 60; Glucose 81 mg/dL (65-110); Magnesium 2.2 mg/dL (1.6-2.3); Potassium 4.2 mmol/L (3.4-5.0); Sodium 139 mmol/L (137-145)
[2024-12-03] MEDS: PANTOPRAZOLE 40 MG TABLET PO ×2 (08:22→20:49)
[2024-12-03] MEDS: buPROPion HCL XL (24 HR) 150 MG TABCR 300 MG BY MOUTH (08:22)
[2024-12-03] MEDS: guaiFENesin 12 HR 600 MG TABCR 1200 MG PO ×2 (08:22→20:49)
[2024-12-03] MEDS: PARoxetine 20 MG TABLET 40 MG BY MOUTH (08:22)
[2024-12-03] MEDS: PREGABALIN (*CRX) 75 MG CAPSULE 150 MG PO ×2 (08:22→17:13)
[2024-12-03] MEDS: levETIRAcetam 500 MG TABLET PO ×2 (08:22→20:49)
[2024-12-03] MEDS: LORATADINE 10 MG TABLET PO (08:22)
[2024-12-03] MEDS: MIDODRINE HCL 2.5 MG TABLET PO ×2 (08:22→17:13)
[2024-12-03] MEDS: levoFLOXacin 750 MG/D5W 150 ML 750 MG/150 ML BAG 100 MG IVPB (08:25)
[2024-12-03] MEDS: FLUTICASONE/UMECLIDIN/VILANTER 100-62.5-25 MCG ELLIPTA 1 PUFF INHALATION (08:38)
[2024-12-03] MEDS: NYSTATIN 100,000 UNITS/ML SUSP 5 ML ORAL.SUSP PO ×4 (08:55→20:48)
[2024-12-03] MEDS: LIDOCAINE 5% PATCH 1 PATCH TOPICAL (08:56)
[2024-12-03] MEDS: NICOTINE (*PBKC) 14 MG PATCH 1 PATCH TRANSDERM (08:56)
[2024-12-03] MEDS: ENOXAPARIN 40 MG/0.4 ML SYRINGE SUB-Q (08:56)
[2024-12-03] MEDS: MICONAZOLE NITRATE 2% CREAM 30 GM TUBE 1 APPLIC TOPICAL ×2 (08:58→20:52)
[2024-12-03] MEDS: LACTULOSE 20 GM/30 ML UDC PO (10:38)
[2024-12-03] MEDS: ACETAMINOPHEN 325 MG TABLET 650 MG PO (15:39)
--- NOTE | 2024-12-03 16:52 | PM.PNPUL ---
Progress Note: A&P Assessment and Plan (1) Respiratory failure with hypoxia and hypercapnia: Code(s): J96.91 - Respiratory failure, unspecified with hypoxia; J96.92 - Respiratory failure, unspecified with hypercapnia Status: Acute Assessment and Plan: This 64-year-old man with COPD and previous lung resection for lung cancer, presented with acute respiratory failure due to a lower respiratory tract infection; testing (+) influenza A, human metapneumovirus (hMPV), and a urine test was positive for pneumococcal antigen, indicating a pneumonia likely caused by multiple infectious agents. The patient has been treated for influenza A, now is on Cefepime and Levaquin, a repeat course. WBC is minimally higher. No fever. He continues to cough significant amounts of sputum that is discolored, yellow-green and at times, brown. He is on 2 L/min, saturation 92-95%. He was on high flow, can change to regular cannula. He continues to experience shortness of breath but does not have a fever or signs of sepsis. He has a productive cough with dark yellow sputum. Given the positive respiratory panel for hMPV and the slow response to antibiotics, it is possible that hMPV is contributing significantly to his pneumonia. Typically, pneumococcal pneumonia responds to antibiotics within 48 hours. Severe pneumonia due to hMPV has been documented in patients with underlying conditions such as COPD or compromised immune systems. Severe pneumonia related to influenza A is is more likely in this setting. Recent chest imaging studies revealed significant improvement in the severe pneumonia previously affecting the right lung, but also identified new pneumonia in the left lung and atelectasis in the left lower lobe. Additionally, a new 1.4 cm nodule was detected in the right lower lobe, which is highly suspicious for cancer recurrence. Since Nov 26, he has been treated for nosocomial pneumonia affecting the left lung. Despite this, the patient?s overall clinical condition has remained stable, with no significant increase in oxygen requirements.today, the wbc increased a little 10.8 without left shift. He is coughing large amounts of dark sputum, 7-8 times a day, 1/2 tablespoon. he continues to mobilize secretions. CXR today 12/02 is stable per the radiologist. The most recent sputum culture identified yeast, Elva albicans Plan: [facility] December 03 to determine if he needs O2 with sleep Home O2 study in the am. Continue Trelegy and p.r.n. short-acting bronchodilator. . Encourage the use of lung clearing techniques, such as the Cornet device and incentive spirometry, to address left lower lung atelectasis, and increased bronchial secretions. He has the vibratory vest which seemed to help some, not as much as expected. He only used it twice today per his report. Anticipate discharge home in the morning. (2) History of lung cancer: Code(s): Z85.118 - Personal history of other malignant neoplasm of bronchus and lung Status: Acute Assessment and Plan: had Right thoracotomy 4-5 years ago, quit smoking for several years, re-started smoking; now has a new RLL nodule over a cm (3) Chronic narcotic use: Code(s): F11.90 - Opioid use, unspecified, uncomplicated Status: Acute Assessment and Plan: (4) Influenza A: Code(s): J10.1 - Influenza due to other identified influenza virus with other respiratory manifestations Status: Acute Assessment and Plan: (+) on Nov 13, treated with Tamiflu; developed secondary bacterial pneumonia, also had human metapneumovirus on his respiratory screen (h MPV); this can be associated with prolonged coughing. (5) COPD (chronic obstructive pulmonary disease): Qualifiers: COPD type: unspecified COPD Qualified Code(s): J44.9 - Chronic obstructive pulmonary disease, unspecified Code(s): J44.9 - Chronic obstructive pulmonary disease, unspecified Status: Acute Assessment and Plan: On Treleyg 100 one puff a day and p.r.n. short acting bronchodilator. (6) Nodule of right lung: Code(s): R91.1 - Solitary pulmonary nodule Status: Acute Assessment and Plan: RLL 1.4 cm, needs out patient follow up, PET scan. This was found this admission, suspicious for cancer recurrence. He needs to recover from this prolonged admission before work up. Plan plan: 1) [facility] tonight to determine nocturnal O2 need. He is not on O2 at home. 2) Home O2 study in the am. 3) He used vibratory vest today twice, was able to get one good expectoration yielding thick sputum. He is struggling to cough up secretions. Continue to use Cornet valve & take oral fluids. sputum 4) Continue Trelegy 100. 5) Tobacco cessation; he started craving cigarettes, now on 14 mg nicotine patch. does not smoke, he lives at home with her. Subjective Date/time seen: 12/03/24 16:52 Interval history: 12/03/24: He feels better, not much appetite, used the vibratory vest twice today and produced one large amount of sputum. He is also using Cornet valve on higher setting, which helps. He is on 2 L with saturation 91-96%. 12/02/24; 64 year old man admitted Feb 10 with influenza A, COPD, and Left post obstructive pneumonia; 11/14= (+) urine pneumococcal antigen, and 11/17 serology showed human metapneumovirus. Today his WBC is higher, 10.3, no left shift. CXR today 12/02/ = stable; No significant change in bilateral lung disease, left greater than right consistent with multifocal pneumonia. 2. Possible small left pleural effusion. He is on Cefepime#6 and Levaquin#5; he was on these earlier this admission, re-started. his daughter Pantera is at bedside. Patient is coughing 7-8 episodes per day of thick yellow-green and yellow-brown sputum 10/05 tablespoon. He is on 2 L/min, sat 92-95%. No fevers. 12/01/24 Patient stated he is doing better. Has been coughing more phlegm over the last couple of days. Phlegm is light yellow. He has no fever chills hemoptysis. Appetite picking up. Spends time out of bed in the chair. Review of Systems Review of Systems: All systems reviewed & are unremarkable except as noted in HPI and below Exam Narrative: GEN: Alert, oriented, not in distress. He is sitting in bed, 2 L/min nasal cannula, saturation 96% HEENT: pupils are equal, EOMI, symmetrical face NECK: Trachea is midline CHEST: Scar around right upper chest posteriorly. Decreased breath sounds in the right base. no wheezing. CV: Regular S1S2 no m/g/r Extremities : no clubbing, cyanosis, or edema PSYCH: normal thought and speech, gait is not tested. Objective Data Vital Signs Vital Signs: Vital Signs - 24 hr 12/02/24 20:00 12/02/24 20:00 12/02/24 21:44 Temperature 36.8 C Pulse Rate 93 82 Respiratory Rate 16 Blood Pressure 111/88 Pulse Oximetry 93 93 Oxygen Delivery High Flow Therapy with Na Oxygen Flow Rate 2 12/03/24 00:00 12/03/24 04:00 12/03/24 06:00 Temperature 36.6 C Pulse Rate 76 77 78 Respiratory Rate 17 Blood Pressure 101/66 Pulse Oximetry 95 Oxygen Delivery Oxygen Flow Rate 12/03/24 08:44 12/03/24 08:44 12/03/24 08:55 Temperature Pulse Rate 87 Respiratory Rate 20 Blood Pressure Pulse Oximetry 90 91 Oxygen Delivery Nasal Cannula High Flow Therapy with Na Oxygen Flow Rate 2 2 12/03/24 08:55 12/03/24 12:00 12/03/24 14:00 Temperature 36.9 C Pulse Rate 86 71 75 Respiratory Rate 16 Blood Pressure 111/87 Pulse Oximetry 96 Oxygen Delivery Oxygen Flow Rate Intake/Output Intake/Output: Intake & Output 11/30/24 12/01/24 12/02/24 12/03/24 23:59 23:59 23:59 23:59 Intake Total 1330 1420 1280 530 Output Total 1500 1250 850 650 Balance -170 170 430 -120 Meds/Results Medications: Active Medications Generic Name Dose Route Start Last Admin Trade Name Freq PRN Reason Stop Dose Admin Acetaminophen 650 mg 11/13/24 21:48 12/03/24 15:39 Acetaminophen 325 Mg Tablet PO 650 mg Q4H PRN Administration Mild Pain (1-3) or Fever Bupropion HCl 300 mg 11/14/24 09:00 12/03/24 08:22 Bupropion Hcl Xl (24 Hr) 150 Mg Tabcr BY MOUTH 300 mg DAILY DANE Administration Enoxaparin Sodium 40 mg 11/21/24 09:00 12/03/24 08:56 Enoxaparin 40 Mg/0.4 Ml Syringe SUB-Q 40 mg DAILY DANE Administration Ferrous Sulfate 325 mg 11/14/24 09:00 12/03/24 08:23 Ferrous Sulfate [address] BY MOUTH Not Given DAILY DANE Fluticasone/Umeclidinium/Vilanterol 1 puff 12/03/24 08:00 12/03/24 08:38 Fluticasone/Umeclidin/Vilanter 100-62.5-25 Mcg Ellipta INHALATION 1 puff DAILYRT DANE Administration Guaifenesin 1,200 mg 11/14/24 10:35 12/03/24 08:22 Guaifenesin 12 Hr 600 Mg Tabcr PO 1,200 mg Q12HR DANE Administration Cefepime HCl 2 gm in 50 mls @ 100 mls/hr 11/27/24 13:00 12/03/24 14:59 Maxipime 2 Gm/Ns 50 Ml IVPB 100 mls/hr Q8HR DANE Administration Lactulose 20 gm 12/03/24 09:00 12/03/24 10:38 Lactulose 20 Gm/30 Ml Udc PO 20 gm QAM DANE Administration Levetiracetam 500 mg 11/14/24 13:35 12/03/24 08:22 Levetiracetam 500 Mg Tablet PO 500 mg Q12HR DANE Administration Levofloxacin 750 mg 12/04/24 09:00 Levofloxacin 750 Mg Tablet PO DAILY DANE Lidocaine 1 patch 11/14/24 09:00 12/03/24 08:56 Lidocaine 5% Patch TOPICAL 1 patch DAILY DANE Administration Loratadine 10 mg 11/27/24 13:10 12/03/24 08:22 Loratadine 10 Mg Tablet PO 10 mg QAM DANE Administration Miconazole Nitrate 1 applic 12/02/24 21:00 12/03/24 08:58 Miconazole Nitrate 2% Cream 30 Gm Tube TOPICAL 1 applic Q12HR DANE Administration Midodrine 2.5 mg 11/14/24 09:00 12/03/24 08:22 Midodrine Hcl 2.5 Mg Tablet PO 2.5 mg BID DANE Administration Miscellaneous Information 0 each 12/01/24 00:01 12/02/24 22:10 Oxycodone Renew If Still Needs Or Will Auto D/C XX 12/31/24 00:00 Not Given CLARIFY DANE Nicotine 1 patch 11/30/24 22:15 12/03/24 08:56 Nicotine (*Pbkc) 14 Mg Patch TRANSDERM 1 patch DAILY DANE Administration Nystatin 5 ml 12/02/24 17:00 12/03/24 13:07 Nystatin 100,000 Units/Ml Susp 5 Ml Oral.Susp PO 5 ml QID DANE Administration Oxycodone HCl 10 mg 11/21/24 15:43 12/03/24 13:07 Oxycodone Hcl (*Crx) 5 Mg Tab Ir PO 10 mg Q4HR PRN Administration Pain Rated 4-6 Pantoprazole Sodium 40 mg 11/14/24 09:00 12/03/24 08:22 Pantoprazole 40 Mg Tablet PO 40 mg Q12HR DANE Administration Paroxetine HCl 40 mg 11/14/24 09:00 12/03/24 08:22 Paroxetine 20 Mg Tablet BY MOUTH 40 mg QAM DANE Administration Pregabalin 150 mg 11/14/24 09:00 12/03/24 08:22 Pregabalin (*Crx) 75 Mg Capsule PO 150 mg BID DANE Administration Sodium Chloride 1 spray 11/19/24 22:13 12/03/24 02:12 Saline 0.65% Meir Soln 44 Ml Btl NASAL 1 spray Q6HR PRN Administration Congestion Tizanidine HCl 4 mg 11/14/24 02:03 12/03/24 02:12 Tizanidine Hcl 4 Mg Tablet PO 4 mg TID PRN Administration muscle spasticity Trazodone HCl 100 mg 11/14/24 21:00 12/02/24 21:15 Trazodone Hcl 50 Mg Tablet PO 100 mg QHS DANE Administration Radiology Results: ITS Impressions Venous Doppler Study 11/20/24 19:54 IMPRESSION: Patent bilateral lower extremity veins. No evidence of deep venous thrombosis. Chest CTA 11/24/24 11:00 Impression: No evidence of pulmonary embolus, aortic dissection, or aortic aneurysm. Mild interval improvement in extensive right lung pneumonia/groundglass pulmonary disease. Complete left lower lobe atelectasis. Patchy small airways infection throughout the left upper lobe with extensive tree-in-bud opacities and nodularity similar to prior exam. Probable underlying chronic interstitial change extensively in the right lung base, especially right lower lobe. Mild emphysema. Chest CT 11/27/24 12:29 IMPRESSION: 1. Widespread pneumonia, left worse than right. 2. Mucous plugging in left mainstem bronchus. 3. 14 mm nodule in right lung lower lobe suspicious for primary bronchogenic carcinoma or metastatic disease. 4. Mild emphysema. Chest X-Ray 12/02/24 12:37 IMPRESSION: 1. No significant change in bilateral lung disease, left greater than right consistent with multifocal pneumonia. 2. Possible small left pleural effusion. Abdomen X-Ray 12/03/24 11:16 Impression: Moderate stool burden. Lumbosacral spinal fixation hardware. Labs Labs: Laboratory Results - last 24 hr 12/03/24 07:17 WBC 10.5 H RBC 3.98 L Hgb 10.2 L Hct 33.6 L MCV 84.4 MCH 25.6 L MCHC 30.4 L RDW 16.3 H Plt Count 331 MPV 10.0 Immature Gran % (Auto) 2.4 H Neut % (Auto) 69.6 Lymph % (Auto) 9.6 L [place] % (Auto) 8.2 Eos % (Auto) 9.5 H Baso % (Auto) 0.7 Lymph # (Auto) 1.01 [place] # (Auto) 0.9 H Eos # (Auto) 1.0 H Baso # (Auto) 0.1 Abs Immat Gran (auto) 0.25 H Absolute Neuts (auto) 7.3 H Absolute Nucleated RBC 0.000 Nucleated RBC % 0.0 Sodium 139 Potassium 4.2 Chloride 104 Carbon Dioxide 30 Anion Gap 5 BUN 19 Creatinine 0.74 Estim Creat Clear Calc 83 Estimated GFR > 60 Glucose 81 Calcium 8.6 Magnesium 2.2 Total Bilirubin 0.4 AST 26 ALT 15 Alkaline Phosphatase 74 Total Protein 7.0 Albumin 3.1 L
[2024-12-03] MEDS: traZODone HCL 50 MG TABLET 100 MG PO (20:49)
[2024-12-04] VITALS (12 sets, daily range): BP systolic 100–103; BP diastolic 67–71; PULSE 76–98; RESP 16–20; TEMP 36.1–36.4; O2SAT 86–94
[2024-12-04] MEDS: oxyCODONE HCL (*CRX) 5 MG TAB IR 10 MG PO ×3 (03:32→15:05)
[2024-12-04] MEDS: CEFEPIME 2 GM/NS 50 ML 2 GM/50 ML BAG IVPB ×2 (05:00→13:00)
[2024-12-04 06:38] LABS: Basophils Absolute Auto 0.1 K/mm3 (0.0-0.1); Eosinophils Percent Auto 9.7 % (0-4.4); Hematocrit 33.4 % (42.0-52.0); Hemoglobin 10.4 g/dL (14.0-18.0); Immature Granulocyte Absolute 0.26 K/mm3 (0.00-0.031); Immature Granulocyte Percent A 2.6 % (0-0.5); Lymphocytes Absolute Auto 0.92 K/mm3 (0.9-3.2); Lymphocytes Percent Auto 9.2 % (18.3-44.2); Mean Corpuscular HGB Conc 31.1 g/dl (32-36); Mean Corpuscular Volume 83.5 fl (80-100); Mean Platelet Volume 9.8 fl (7.4-10.4); Monocytes Absolute Auto 0.8 K/mm3 (0.1-0.6); Monocytes Percent Auto 8.1 % (2.6-8.5); Neutrophils Absolute Auto 6.9 K/mm3 (1.3-6.7); Neutrophils Percent Auto 69.4 % (45.5-73.1); Platelet Count Result 340 k/mm3 (150-375); Red Cell Distribution Width 16.1 % (11.5-14.5)
[2024-12-04 07:02] LABS: Alanine Aminotransferase 16 U/L (6-50); Alkaline Phosphatase 85 U/L (38-126); Anion Gap 6 mmol/L (4-12); Aspartate Amino Transferase 25 U/L (17-59); Bilirubin,Total 0.4 mg/dL (0.2-1.3); Blood Urea Nitrogen 19 mg/dL (9-20); Calcium 8.8 mg/dL (8.4-10.2); Carbon Dioxide 31 mmol/L (22-30); Chloride 102 mmol/L (98-107); Estimated CRCL calculation 67 ml/min; Estimated Glomerular Filt Rate > 60; Glucose 83 mg/dL (65-110); Magnesium 2.1 mg/dL (1.6-2.3); Sodium 139 mmol/L (137-145)
--- NOTE | 2024-12-04 08:20 | PM.IMPN ---
Progress Note: A&P Assessment and Plan (1) Postobstructive pneumonia: Code(s): J18.9 - Pneumonia, unspecified organism Status: Acute Assessment and Plan: Influenza A positive--completed Tamiflu course Human metapneumovirus positive Urine strep positive Continue incentive spirometry and cornet flutter valve to a and sputum expectoration, will hold off on chest PT considering improvement and oxygenation Continue guaifenesin continue DuoNebs Pulmonology consulted Continue PT and OT Chest x-ray today showing no significant change in bilateral lung disease, left greater than right consistent multifocal pneumonia, possible small left pleural effusion Continue cefepime and levofloxacin Flagyl discontinued on 11/22/2024 Currently on 2 L nasal cannula, continue to wean O2 for sat greater than 92% Okay to move out of IMU today on telemetry 3/2 Continue Cefepime for now, currently on day 7 of therapy Changed Levaquin to oral, currently on day 6 of therapy Pulmonology following Continue to wean O2 Continue Pep therapy and CPT per pulmonology recommendation Continue PT and OT Continue Duonebs and guaifenesin (2) Influenza A: Code(s): J10.1 - Influenza due to other identified influenza virus with other respiratory manifestations Status: Acute Assessment and Plan: Improving Influenza A positive. Completed Tamiflu course Continue to wean O2 for sat greater than 92%, currently on 2 L nasal cannula Continue PT and OT 3/2 No change (3) COPD (chronic obstructive pulmonary disease): Qualifiers: COPD type: unspecified COPD Qualified Code(s): J44.9 - Chronic obstructive pulmonary disease, unspecified Code(s): J44.9 - Chronic obstructive pulmonary disease, unspecified Status: Acute Assessment and Plan: See above plan of care (4) Hypokalemia: Code(s): E87.6 - Hypokalemia Status: Acute Assessment and Plan: Potassium 3.7 No replacement needed Continue to trend 3/2 K+ 4.2, resolved (5) Back pain: Qualifiers: Back pain location: thoracic back pain Chronicity: unspecified Back pain laterality: unspecified Qualified Code(s): M54.6 - Pain in thoracic spine Code(s): M54.9 - Dorsalgia, unspecified Status: Acute Assessment and Plan: Continue pain control 3/2 No change (6) Nodule of right lung: Code(s): R91.1 - Solitary pulmonary nodule Status: Acute Assessment and Plan: 11/27 CT a chest 14 mm nodule in right lung lower lobe suspicious for primary bronchogenic carcinoma or metastatic disease. Not seen in previous CTs--will need outpatient follow-up Pulmonology following 3/ No change (7) Constipation: Code(s): K59.00 - Constipation, unspecified Status: Acute Assessment and Plan: 12/03 KUB showing moderate stool burden, no ileus or obstruction Last BM was on Nov 15 Patient reports that he only has a BM every 2 weeks??? Will start Lactulose Will need bowel regimen for at home considering ferrous sulfate and narcotic use Subjective Date/time seen: 12/04/24 08:20 Interval history: 64-year-old male with a past medical history to tobacco abuse, COPD, lung cancer status post right middle lobe lobectomy in 2019, vitamin B12 deficiency, iron deficiency anemia, chronic pain and chronic opioid use, GERD, hypotension who presents with shortness of breath for about a week found to have influenza a pneumonia. Plan for home O2 study today Review of Systems Review of Systems: All systems reviewed & are unremarkable except as noted in HPI and below Exam Narrative: General: Ill-appearing HEENT: normocephalic, atraumatic. Mucous membranes moist. EOMI, PERRLA, bilateral sclera anicteric, no conjunctival injection. Neck supple without JVD, lymphadenopathy, or bruit. Respiratory: Diminished to ascultation bilaterally. Cardiovascular: Regular rate and rhythm, normal S1-S2 upon ascultation. No murmurs, rubs, or clicks. PMI is nondisplaced, capillary refill less than 3 second. Abdomen: Soft, round, no pulsatile masses, nondistended and nontender. No rebound, no guarding. No CVA tenderness, no hepatosplenomegaly. Bowel sounds present to all four quadrants. No high pitch or tinkling sounds, resonant to percussion. Extremities: No cyanosis, clubbing, or edema present. Pulses are palpable 2/2. Active ROM to all four extremities. Neuro: Alert and orientated x 4. PERRLA. Cranial nerves 2-12 intact without focal deficit. Skin: Warm, dry, and intact, without rash, erythema, or lesion. Psych: pleasant, cooperative, normal speech, normal affect, no hallucinations, no dysarthia High-flow nasal cannula Objective Data Vital Signs Vital Signs: Vital Signs - 24 hr 12/03/24 08:44 12/03/24 08:44 12/03/24 08:55 Temperature Pulse Rate 87 Respiratory Rate 20 Blood Pressure Pulse Oximetry 90 91 Oxygen Delivery Nasal Cannula High Flow Therapy with Na Oxygen Flow Rate 2 2 12/03/24 08:55 12/03/24 12:00 12/03/24 14:00 Temperature 98.4 F Pulse Rate 86 71 75 Respiratory Rate 16 Blood Pressure 111/87 Pulse Oximetry 96 Oxygen Delivery Oxygen Flow Rate 12/03/24 19:38 12/03/24 20:00 12/03/24 20:18 Temperature 98.8 F Pulse Rate 83 82 Respiratory Rate 16 Blood Pressure 103/65 Pulse Oximetry 96 95 Oxygen Delivery Nasal Cannula Oxygen Flow Rate 2 12/04/24 00:00 12/04/24 04:00 12/04/24 05:00 Temperature 97.5 F L Pulse Rate 77 81 76 Respiratory Rate 16 Blood Pressure 100/67 Pulse Oximetry 94 Oxygen Delivery Oxygen Flow Rate Intake/Output Intake/Output: Intake & Output 12/01/24 12/02/24 12/03/24 12/04/24 23:59 23:59 23:59 23:59 Intake Total 1420 1280 1107 Output Total 1250 850 650 350 Balance 170 430 457 -350 Meds/Results Medications: Active Medications Generic Name Dose Route Start Last Admin Trade Name Freq PRN Reason Stop Dose Admin Acetaminophen 650 mg 11/13/24 21:48 12/03/24 15:39 Acetaminophen 325 Mg Tablet PO 650 mg Q4H PRN Administration Mild Pain (1-3) or Fever Bupropion HCl 300 mg 11/14/24 09:00 12/03/24 08:22 Bupropion Hcl Xl (24 Hr) 150 Mg Tabcr BY MOUTH 300 mg DAILY DANE Administration Enoxaparin Sodium 40 mg 11/21/24 09:00 12/03/24 08:56 Enoxaparin 40 Mg/0.4 Ml Syringe SUB-Q 40 mg DAILY DANE Administration Ferrous Sulfate 325 mg 11/14/24 09:00 12/03/24 08:23 Ferrous Sulfate [address] BY MOUTH Not Given DAILY DANE Fluticasone/Umeclidinium/Vilanterol 1 puff 12/03/24 08:00 12/03/24 08:38 Fluticasone/Umeclidin/Vilanter 100-62.5-25 Mcg Ellipta INHALATION 1 puff DAILYRT DANE Administration Guaifenesin 1,200 mg 11/14/24 10:35 12/03/24 20:49 Guaifenesin 12 Hr 600 Mg Tabcr PO 1,200 mg Q12HR DANE Administration Cefepime HCl 2 gm in 50 mls @ 100 mls/hr 11/27/24 13:00 12/04/24 05:00 Maxipime 2 Gm/Ns 50 Ml IVPB 100 mls/hr Q8HR DANE Administration Lactulose 20 gm 12/03/24 09:00 12/03/24 10:38 Lactulose 20 Gm/30 Ml Udc PO 20 gm QAM DANE Administration Levetiracetam 500 mg 11/14/24 13:35 12/03/24 20:49 Levetiracetam 500 Mg Tablet PO 500 mg Q12HR DANE Administration Levofloxacin 750 mg 12/04/24 09:00 Levofloxacin 750 Mg Tablet PO DAILY DANE Lidocaine 1 patch 11/14/24 09:00 12/03/24 08:56 Lidocaine 5% Patch TOPICAL 1 patch DAILY DANE Administration Loratadine 10 mg 11/27/24 13:10 12/03/24 08:22 Loratadine 10 Mg Tablet PO 10 mg QAM DANE Administration Miconazole Nitrate 1 applic 12/02/24 21:00 12/03/24 20:52 Miconazole Nitrate 2% Cream 30 Gm Tube TOPICAL 1 applic Q12HR DANE Administration Midodrine 2.5 mg 11/14/24 09:00 12/03/24 17:13 Midodrine Hcl 2.5 Mg Tablet PO 2.5 mg BID DANE Administration Miscellaneous Information 0 each 12/01/24 00:01 12/02/24 22:10 Oxycodone Renew If Still Needs Or Will Auto D/C XX 12/31/24 00:00 Not Given CLARIFY DANE Nicotine 1 patch 11/30/24 22:15 12/03/24 08:56 Nicotine (*Pbkc) 14 Mg Patch TRANSDERM 1 patch DAILY DANE Administration Nystatin 5 ml 12/02/24 17:00 12/03/24 20:48 Nystatin 100,000 Units/Ml Susp 5 Ml Oral.Susp PO 5 ml QID DANE Administration Oxycodone HCl 10 mg 11/21/24 15:43 12/04/24 03:32 Oxycodone Hcl (*Crx) 5 Mg Tab Ir PO 10 mg Q4HR PRN Administration Pain Rated 4-6 Pantoprazole Sodium 40 mg 11/14/24 09:00 12/03/24 20:49 Pantoprazole 40 Mg Tablet PO 40 mg Q12HR DANE Administration Paroxetine HCl 40 mg 11/14/24 09:00 12/03/24 08:22 Paroxetine 20 Mg Tablet BY MOUTH 40 mg QAM DANE Administration Pregabalin 150 mg 11/14/24 09:00 12/03/24 17:13 Pregabalin (*Crx) 75 Mg Capsule PO 150 mg BID DANE Administration Sodium Chloride 1 spray 11/19/24 22:13 12/03/24 02:12 Saline 0.65% Meir Soln 44 Ml Btl NASAL 1 spray Q6HR PRN Administration Congestion Tizanidine HCl 4 mg 11/14/24 02:03 12/03/24 02:12 Tizanidine Hcl 4 Mg Tablet PO 4 mg TID PRN Administration muscle spasticity Trazodone HCl 100 mg 11/14/24 21:00 12/03/24 20:49 Trazodone Hcl 50 Mg Tablet PO 100 mg QHS DANE Administration Radiology Results: ITS Impressions Venous Doppler Study 11/20/24 19:54 IMPRESSION: Patent bilateral lower extremity veins. No evidence of deep venous thrombosis. Chest CTA 11/24/24 11:00 Impression: No evidence of pulmonary embolus, aortic dissection, or aortic aneurysm. Mild interval improvement in extensive right lung pneumonia/groundglass pulmonary disease. Complete left lower lobe atelectasis. Patchy small airways infection throughout the left upper lobe with extensive tree-in-bud opacities and nodularity similar to prior exam. Probable underlying chronic interstitial change extensively in the right lung base, especially right lower lobe. Mild emphysema. Chest CT 11/27/24 12:29 IMPRESSION: 1. Widespread pneumonia, left worse than right. 2. Mucous plugging in left mainstem bronchus. 3. 14 mm nodule in right lung lower lobe suspicious for primary bronchogenic carcinoma or metastatic disease. 4. Mild emphysema. Chest X-Ray 12/02/24 12:37 IMPRESSION: 1. No significant change in bilateral lung disease, left greater than right consistent with multifocal pneumonia. 2. Possible small left pleural effusion. Abdomen X-Ray 12/03/24 11:16 Impression: Moderate stool burden. Lumbosacral spinal fixation hardware. Labs Labs: Laboratory Results - last 24 hr 12/04/24 05:30 WBC 10.0 RBC 4.00 L Hgb 10.4 L Hct 33.4 L MCV 83.5 MCH 26.0 MCHC 31.1 L RDW 16.1 H Plt Count 340 MPV 9.8 Immature Gran % (Auto) 2.6 H Neut % (Auto) 69.4 Lymph % (Auto) 9.2 L [place] % (Auto) 8.1 Eos % (Auto) 9.7 H Baso % (Auto) 1.0 Lymph # (Auto) 0.92 [place] # (Auto) 0.8 H Eos # (Auto) 1.0 H Baso # (Auto) 0.1 Abs Immat Gran (auto) 0.26 H Absolute Neuts (auto) 6.9 H Absolute Nucleated RBC 0.000 Nucleated RBC % 0.0 Sodium 139 Potassium 4.0 Chloride 102 Carbon Dioxide 31 H Anion Gap 6 BUN 19 Creatinine 0.94 Estim Creat Clear Calc 67 Estimated GFR > 60 Glucose 83 Calcium 8.8 Magnesium 2.1 Total Bilirubin 0.4 AST 25 ALT 16 Alkaline Phosphatase 85 Total Protein 7.0 Albumin 3.0 L Quality VTE Prophylaxis VTE prophylaxis: mechanical ordered and pharmacologic ordered
[2024-12-04] MEDS: FLUTICASONE/UMECLIDIN/VILANTER 100-62.5-25 MCG ELLIPTA 1 PUFF INHALATION (09:03)
[2024-12-04] MEDS: levoFLOXacin 750 MG TABLET PO (09:37)
[2024-12-04] MEDS: LACTULOSE 20 GM/30 ML UDC PO (09:37)
[2024-12-04] MEDS: NICOTINE (*PBKC) 14 MG PATCH 1 PATCH TRANSDERM (09:37)
[2024-12-04] MEDS: NYSTATIN 100,000 UNITS/ML SUSP 5 ML ORAL.SUSP PO ×2 (09:37→13:00)
[2024-12-04] MEDS: MIDODRINE HCL 2.5 MG TABLET PO (09:37)
[2024-12-04] MEDS: FERROUS SULFATE 325 MG TABLET DR BY MOUTH (09:37)
[2024-12-04] MEDS: PANTOPRAZOLE 40 MG TABLET PO (09:37)
[2024-12-04] MEDS: SENNA/DOCUSATE SODIUM TABLET 1 TAB PO (09:37)
[2024-12-04] MEDS: buPROPion HCL XL (24 HR) 150 MG TABCR 300 MG BY MOUTH (09:37)
[2024-12-04] MEDS: PARoxetine 20 MG TABLET 40 MG BY MOUTH (09:37)
[2024-12-04] MEDS: guaiFENesin 12 HR 600 MG TABCR 1200 MG PO (09:37)
[2024-12-04] MEDS: LORATADINE 10 MG TABLET PO (09:37)
[2024-12-04] MEDS: PREGABALIN (*CRX) 75 MG CAPSULE 150 MG PO (09:37)
[2024-12-04] MEDS: levETIRAcetam 500 MG TABLET PO (09:37)
[2024-12-04] MEDS: MICONAZOLE NITRATE 2% CREAM 30 GM TUBE 1 APPLIC TOPICAL (09:38)
[2024-12-04] MEDS: ENOXAPARIN 40 MG/0.4 ML SYRINGE SUB-Q (09:38)
--- NOTE | 2024-12-04 09:53 | PM.PNPUL ---
Progress Note: A&P Assessment and Plan (1) Respiratory failure with hypoxia and hypercapnia: Code(s): J96.91 - Respiratory failure, unspecified with hypoxia; J96.92 - Respiratory failure, unspecified with hypercapnia Status: Acute Assessment and Plan: This 64-year-old male patient, with a medical history of COPD and previous lung resection for lung cancer, presented with acute respiratory failure due to a lower respiratory tract infection. Testing revealed positive results for influenza A and human metapneumovirus (hMPV), and a urine test was positive for pneumococcal antigen, indicating a pneumonia likely caused by multiple infectious agents. The patient has been treated for influenza A and is currently receiving three antibiotics to address potential bacterial coinfection. Although his gas exchange has improved in the past few days, he remains on high-flow oxygen via nasal cannula with high FiO2. He continues to experience shortness of breath but does not have a fever or signs of sepsis. He has a productive cough with dark yellow sputum. Given the positive respiratory panel for hMPV and the slow response to antibiotics, it is possible that hMPV is contributing significantly to his pneumonia. Typically, pneumococcal pneumonia responds to antibiotics within 48 hours. Severe pneumonia due to hMPV has been documented in patients with underlying conditions such as COPD or compromised immune systems. Severe pneumonia related to influenza A is is more likely in this setting. Recent chest imaging studies revealed significant improvement in the severe pneumonia previously affecting the right lung, but also identified new pneumonia in the left lung and atelectasis in the left lower lobe. Additionally, a new 1.4 cm nodule was detected in the right lower lobe, which is highly suspicious for cancer recurrence. Patient and patient's family were made aware of the new right lower lobe lung nodule and the need to return to Pulmonary Clinic for further testing. Over the past 8 days, the patient has been treated for nosocomial pneumonia affecting the left lung. Patient has received cefepime and levofloxacin for about 8 days. His respiratory status has improved. Last chest x-ray showed partial clearing of the left lung infiltrates. FiO2 has significantly decreased from a high 45 % to currently on nasal cannula with low-flow. Plan: From a respiratory perspective, the patient is ready for discharge. He will need a home oxygen evaluation to accurately adjust his oxygen requirements. He should continue using Trelegy as his maintenance bronchodilator and use nebulized short-acting bronchodilators as needed. The patient has been given a business card with contact information to schedule a follow-up appointment at the Pulmonary Clinic in approximately 2-3 weeks. As discussed, he will require follow-up and further evaluation for his severe bilateral pneumonia, COPD, and recurrence of right lung cancer. (2) History of lung cancer: Code(s): Z85.118 - Personal history of other malignant neoplasm of bronchus and lung Status: Acute (3) Chronic narcotic use: Code(s): F11.90 - Opioid use, unspecified, uncomplicated Status: Acute (4) Influenza A: Code(s): J10.1 - Influenza due to other identified influenza virus with other respiratory manifestations Status: Acute (5) COPD (chronic obstructive pulmonary disease): Qualifiers: COPD type: unspecified COPD Qualified Code(s): J44.9 - Chronic obstructive pulmonary disease, unspecified Code(s): J44.9 - Chronic obstructive pulmonary disease, unspecified Status: Acute (6) Nodule of right lung: Code(s): R91.1 - Solitary pulmonary nodule Status: Acute Assessment and Plan: The discovery of a new lung nodule, which is suspicious for cancer recurrence, was thoroughly discussed with the patient and with his . Further testing will be necessary on an outpatient basis once the patient recovers from the severe pneumonia. Subjective Date/time seen: 12/04/24 09:53 Interval history: Patient stated he is doing much better. Over the weekend he was transferred to a different non-IMU room. He denied having fever chills shortness of breath. No significant chest congestion. Review of Systems Review of Systems: All systems reviewed & are unremarkable except as noted in HPI and below (HPI and below) Exam Narrative: GENERAL APPEARANCE: Well developed, well nourished, alert and cooperative, appears to be in mild respiratory distress while on high-flow nasal cannula SKIN: Inspection of the skin reveals no rashes, ulcerations or petechiae. HEENT: Sclerae anicteric and conjunctivae pink and moist. Extraocular movements were intact and pupils were equal, round. Moist oral mucosa. NECK: Supple. There was no thyroid enlargement, and no tenderness, or masses were felt. CHEST: Normal AP diameter and normal contour without any kyphoscoliosis. LUNGS: Crackles left lung posteriorly more than before also crackles right lung base. CARDIAC: There was a regular rate and rhythm without any murmurs, gallops, rubs. ABDOMEN: Soft and nontender with normal bowel sounds. There was no organomegaly. LYMPH NODES: No lymphadenopathy was appreciated in the neck. EXTREMITIES: No cyanosis, clubbing or edema. NEUROLOGIC: Alert and oriented x 3. Normal affect. Objective Data Vital Signs Vital Signs: Vital Signs - 24 hr 12/03/24 12:00 12/03/24 14:00 12/03/24 19:38 Temperature 36.9 C 37.1 C Pulse Rate 71 75 83 Respiratory Rate 16 16 Blood Pressure 111/87 103/65 Pulse Oximetry 96 96 Oxygen Delivery Oxygen Flow Rate Fraction of Inspired Oxygen 12/03/24 20:00 12/03/24 20:18 12/04/24 00:00 Temperature Pulse Rate 82 77 Respiratory Rate Blood Pressure Pulse Oximetry 95 Oxygen Delivery Nasal Cannula Oxygen Flow Rate 2 Fraction of Inspired Oxygen 12/04/24 04:00 12/04/24 05:00 12/04/24 09:03 Temperature 36.4 C L Pulse Rate 81 76 Respiratory Rate 16 Blood Pressure 100/67 Pulse Oximetry 94 94 Oxygen Delivery Nasal Cannula Oxygen Flow Rate 2 Fraction of Inspired Oxygen 28 12/04/24 09:03 Temperature Pulse Rate 82 Respiratory Rate 20 Blood Pressure Pulse Oximetry Oxygen Delivery Oxygen Flow Rate Fraction of Inspired Oxygen Intake/Output Intake/Output: Intake & Output 12/01/24 12/02/24 12/03/24 12/04/24 23:59 23:59 23:59 23:59 Intake Total 1420 1280 1107 Output Total 1250 850 650 350 Balance 170 430 457 -350 Meds/Results Medications: Active Medications Generic Name Dose Route Start Last Admin Trade Name Crowq PRN Reason Stop Dose Admin Acetaminophen 650 mg 11/13/24 21:48 12/03/24 15:39 Acetaminophen 325 Mg Tablet PO 650 mg Q4H PRN Administration Mild Pain (1-3) or Fever Bupropion HCl 300 mg 11/14/24 09:00 12/04/24 09:37 Bupropion Hcl Xl (24 Hr) 150 Mg Tabcr BY MOUTH 300 mg DAILY DANE Administration Enoxaparin Sodium 40 mg 11/21/24 09:00 12/04/24 09:38 Enoxaparin 40 Mg/0.4 Ml Syringe SUB-Q 40 mg DAILY DANE Administration Ferrous Sulfate 325 mg 11/14/24 09:00 12/04/24 09:37 Ferrous Sulfate [address] BY MOUTH 325 mg DAILY DANE Administration Fluticasone/Umeclidinium/Vilanterol 1 puff 12/03/24 08:00 12/04/24 09:03 Fluticasone/Umeclidin/Vilanter 100-62.5-25 Mcg Ellipta INHALATION 1 puff DAILYRT DANE Administration Guaifenesin 1,200 mg 11/14/24 10:35 12/04/24 09:37 Guaifenesin 12 Hr 600 Mg Tabcr PO 1,200 mg Q12HR DANE Administration Cefepime HCl 2 gm in 50 mls @ 100 mls/hr 11/27/24 13:00 12/04/24 05:00 Maxipime 2 Gm/Ns 50 Ml IVPB 100 mls/hr Q8HR DANE Administration Lactulose 20 gm 12/03/24 09:00 12/04/24 09:37 Lactulose 20 Gm/30 Ml Udc PO 20 gm QAM DANE Administration Levetiracetam 500 mg 11/14/24 13:35 12/04/24 09:37 Levetiracetam 500 Mg Tablet PO 500 mg Q12HR DANE Administration Levofloxacin 750 mg 12/04/24 09:00 12/04/24 09:37 Levofloxacin 750 Mg Tablet PO 750 mg DAILY DANE Administration Lidocaine 1 patch 11/14/24 09:00 12/04/24 09:38 Lidocaine 5% Patch TOPICAL Not Given DAILY DANE Loratadine 10 mg 11/27/24 13:10 12/04/24 09:37 Loratadine 10 Mg Tablet PO 10 mg QAM DANE Administration Miconazole Nitrate 1 applic 12/02/24 21:00 12/04/24 09:38 Miconazole Nitrate 2% Cream 30 Gm Tube TOPICAL 1 applic Q12HR DANE Administration Midodrine 2.5 mg 11/14/24 09:00 12/04/24 09:37 Midodrine Hcl 2.5 Mg Tablet PO 2.5 mg BID DANE Administration Miscellaneous Information 0 each 12/01/24 00:01 12/02/24 22:10 Oxycodone Renew If Still Needs Or Will Auto D/C XX 12/31/24 00:00 Not Given CLARIFY DANE Nicotine 1 patch 11/30/24 22:15 12/04/24 09:37 Nicotine (*Pbkc) 14 Mg Patch TRANSDERM 1 patch DAILY DANE Administration Nystatin 5 ml 12/02/24 17:00 12/04/24 09:37 Nystatin 100,000 Units/Ml Susp 5 Ml Oral.Susp PO 5 ml QID DANE Administration Oxycodone HCl 10 mg 11/21/24 15:43 12/04/24 09:44 Oxycodone Hcl (*Crx) 5 Mg Tab Ir PO 10 mg Q4HR PRN Administration Pain Rated 4-6 Pantoprazole Sodium 40 mg 11/14/24 09:00 12/04/24 09:37 Pantoprazole 40 Mg Tablet PO 40 mg Q12HR DANE Administration Paroxetine HCl 40 mg 11/14/24 09:00 12/04/24 09:37 Paroxetine 20 Mg Tablet BY MOUTH 40 mg QAM DANE Administration Polyethylene Glycol 17 gm 12/04/24 09:00 12/04/24 09:38 Polyethylene Glycol 3350 17 Gm Powd.Pack PO Not Given BID DANE Senna/Docusate Sodium 1 tab 12/04/24 09:00 12/04/24 09:37 Senna/Docusate Sodium Tablet PO 1 tab BID DANE Administration Sodium Chloride 1 spray 11/19/24 22:13 12/03/24 02:12 Saline 0.65% Meir Soln 44 Ml Btl NASAL 1 spray Q6HR PRN Administration Congestion Tizanidine HCl 4 mg 11/14/24 02:03 12/03/24 02:12 Tizanidine Hcl 4 Mg Tablet PO 4 mg TID PRN Administration muscle spasticity Trazodone HCl 100 mg 11/14/24 21:00 12/03/24 20:49 Trazodone Hcl 50 Mg Tablet PO 100 mg QHS DANE Administration Radiology Results: ITS Impressions Venous Doppler Study 11/20/24 19:54 IMPRESSION: Patent bilateral lower extremity veins. No evidence of deep venous thrombosis. Chest CTA 11/24/24 11:00 Impression: No evidence of pulmonary embolus, aortic dissection, or aortic aneurysm. Mild interval improvement in extensive right lung pneumonia/groundglass pulmonary disease. Complete left lower lobe atelectasis. Patchy small airways infection throughout the left upper lobe with extensive tree-in-bud opacities and nodularity similar to prior exam. Probable underlying chronic interstitial change extensively in the right lung base, especially right lower lobe. Mild emphysema. Chest CT 11/27/24 12:29 IMPRESSION: 1. Widespread pneumonia, left worse than right. 2. Mucous plugging in left mainstem bronchus. 3. 14 mm nodule in right lung lower lobe suspicious for primary bronchogenic carcinoma or metastatic disease. 4. Mild emphysema. Chest X-Ray 12/02/24 12:37 IMPRESSION: 1. No significant change in bilateral lung disease, left greater than right consistent with multifocal pneumonia. 2. Possible small left pleural effusion. Abdomen X-Ray 12/03/24 11:16 Impression: Moderate stool burden. Lumbosacral spinal fixation hardware. Labs Labs: Laboratory Results - last 24 hr 12/04/24 05:30 WBC 10.0 RBC 4.00 L Hgb 10.4 L Hct 33.4 L MCV 83.5 MCH 26.0 MCHC 31.1 L RDW 16.1 H Plt Count 340 MPV 9.8 Immature Gran % (Auto) 2.6 H Neut % (Auto) 69.4 Lymph % (Auto) 9.2 L [place] % (Auto) 8.1 Eos % (Auto) 9.7 H Baso % (Auto) 1.0 Lymph # (Auto) 0.92 [place] # (Auto) 0.8 H Eos # (Auto) 1.0 H Baso # (Auto) 0.1 Abs Immat Gran (auto) 0.26 H Absolute Neuts (auto) 6.9 H Absolute Nucleated RBC 0.000 Nucleated RBC % 0.0 Sodium 139 Potassium 4.0 Chloride 102 Carbon Dioxide 31 H Anion Gap 6 BUN 19 Creatinine 0.94 Estim Creat Clear Calc 67 Estimated GFR > 60 Glucose 83 Calcium 8.8 Magnesium 2.1 Total Bilirubin 0.4 AST 25 ALT 16 Alkaline Phosphatase 85 Total Protein 7.0 Albumin 3.0 L
--- NOTE | 2024-12-04 10:18 | PCNWS ---
Weekly nutritional screen. Patient is tolerating current heart healthy diet with adequate intake 50-100% plus Ensure Enlive BID. No weight loss reported. No nutritional recommendations at this time.
--- NOTE | 2024-12-04 11:16 | HOMEO2EVAL ---
Evaluation was performed at [facility] Home Oxygen Evaluation RC: Home Oxygen (O2) Evaluation Start: 12/02/24 14:59 Freq: ONCE Status: Active Protocol: RPE Activity Type Activity Date Activity User E-sign Co-sign Detail Recorded Client Recorded Date Recorded By Document 12/04/24 10:00 [email or web address] 12/04/24 11:16 PKH Document 12/04/24 10:05 [email or web address] 12/04/24 11:16 PKH Document 12/04/24 10:10 [email or web address] [email or web address] 12/04/24 11:16 PKH Document 12/04/24 10:15 [email or web address] [email or web address] 12/04/24 11:16 PKH Document 12/04/24 10:30 PK [email or web address] 12/04/24 11:16 PKH 12/04/24 12/04/24 12/04/24 10:00 10:05 10:10 Home O2 Evaluation [Oxygen] -Test Phase Resting Resting Resting -Oxygen Delivery Room Air Nasal Cannula Nasal Cannula -Oxygen Flow Rate (L/min) 1 2 [Pulse Oximetry] -Pulse Oximetry (90-100 %) 86 L 87 L 92 [Pulse Rate] -Pulse Rate (60-100 beats/min) 85 85 84 [Charges] -Evaluation Charges O2 Evaluation by Pulmonary 12/04/24 12/04/24 10:15 10:30 Home O2 Evaluation [Oxygen] -Test Phase Exercise Resting -Oxygen Delivery Nasal Cannula Nasal Cannula -Oxygen Flow Rate (L/min) 2 2 [Pulse Oximetry] -Pulse Oximetry (90-100 %) 91 92 [Pulse Rate] -Pulse Rate (60-100 beats/min) 98 86 [Charges] -Evaluation Charges
--- NOTE | 2024-12-04 11:37 | PCRCNOTE ---
HOME O2 EVAL COMPLETE. PATIENT REQUIRES 2LPM WITH REST AND ACTIVITY. RN NOTIFIED. HOME O2 SET-UP WITH IV RESPIRATORY
--- NOTE | 2024-12-04 14:52 | PM.DS ---
DS: Admitting Diagnosis Discharge Date 12/04/24 DS: Discharge Diagnosis Discharge Diagnosis (1) Postobstructive pneumonia: Code(s): J18.9 - Pneumonia, unspecified organism Status: Acute Assessment and Plan: Influenza A positive--completed Tamiflu course Human metapneumovirus positive Urine strep positive Continue incentive spirometry and cornet flutter valve to a and sputum expectoration, will hold off on chest PT considering improvement and oxygenation Continue guaifenesin continue DuoNebs Pulmonology consulted Continue PT and OT Chest x-ray today showing no significant change in bilateral lung disease, left greater than right consistent multifocal pneumonia, possible small left pleural effusion Continue cefepime and levofloxacin Flagyl discontinued on 11/22/2024 Currently on 2 L nasal cannula, continue to wean O2 for sat greater than 92% Okay to move out of IMU today on telemetry / Continue Cefepime for now, currently on day 7 of therapy Changed Levaquin to oral, currently on day 6 of therapy Pulmonology following Continue to wean O2 Continue Pep therapy and CPT per pulmonology recommendation Continue PT and OT Continue Duonebs and guaifenesin (2) Influenza A: Code(s): J10.1 - Influenza due to other identified influenza virus with other respiratory manifestations Status: Acute Assessment and Plan: Improving Influenza A positive. Completed Tamiflu course Continue to wean O2 for sat greater than 92%, currently on 2 L nasal cannula Continue PT and OT 3/2 No change (3) COPD (chronic obstructive pulmonary disease): Qualifiers: COPD type: unspecified COPD Qualified Code(s): J44.9 - Chronic obstructive pulmonary disease, unspecified Code(s): J44.9 - Chronic obstructive pulmonary disease, unspecified Status: Acute Assessment and Plan: See above plan of care (4) Hypokalemia: Code(s): E87.6 - Hypokalemia Status: Acute Assessment and Plan: Potassium 3.7 No replacement needed Continue to trend 3/2 K+ 4.2, resolved (5) Back pain: Qualifiers: Back pain location: thoracic back pain Chronicity: unspecified Back pain laterality: unspecified Qualified Code(s): M54.6 - Pain in thoracic spine Code(s): M54.9 - Dorsalgia, unspecified Status: Acute Assessment and Plan: Continue pain control 3/2 No change (6) Nodule of right lung: Code(s): R91.1 - Solitary pulmonary nodule Status: Acute Assessment and Plan: 11/27 CT a chest 14 mm nodule in right lung lower lobe suspicious for primary bronchogenic carcinoma or metastatic disease. Not seen in previous CTs--will need outpatient follow-up Pulmonology following 12/03 No change (7) Constipation: Code(s): K59.00 - Constipation, unspecified Status: Acute Assessment and Plan: 12/03 KUB showing moderate stool burden, no ileus or obstruction Last BM was on Nov 15 Patient reports that he only has a BM every 2 weeks??? Will start Lactulose Will need bowel regimen for at home considering ferrous sulfate and narcotic use DS: Summary Status at Discharge Functional status at discharge: uses cane/walker Time Spent with Patient Time attestation: Total time spent providing and/or coordinating discharge services: Time spent: Greater than 30 minutes Exam Narrative: General: Ill-appearing HEENT: normocephalic, atraumatic. Mucous membranes moist. EOMI, PERRLA, bilateral sclera anicteric, no conjunctival injection. Neck supple without JVD, lymphadenopathy, or bruit. Respiratory: Diminished to ascultation bilaterally. Cardiovascular: Regular rate and rhythm, normal S1-S2 upon ascultation. No murmurs, rubs, or clicks. PMI is nondisplaced, capillary refill less than 3 second. Abdomen: Soft, round, no pulsatile masses, nondistended and nontender. No rebound, no guarding. No CVA tenderness, no hepatosplenomegaly. Bowel sounds present to all four quadrants. No high pitch or tinkling sounds, resonant to percussion. Extremities: No cyanosis, clubbing, or edema present. Pulses are palpable 2/2. Active ROM to all four extremities. Neuro: Alert and orientated x 4. PERRLA. Cranial nerves 2-12 intact without focal deficit. Skin: Warm, dry, and intact, without rash, erythema, or lesion. Psych: pleasant, cooperative, normal speech, normal affect, no hallucinations, no dysarthia nasal cannula DS: Data Data Completed and Pending Labs on day of discharge: Labs from last 24 hours 12/04/24 05:30 WBC 10.0 RBC 4.00 L Hgb 10.4 L Hct 33.4 L MCV 83.5 MCH 26.0 MCHC 31.1 L RDW 16.1 H Plt Count 340 MPV 9.8 Immature Gran % (Auto) 2.6 H Neut % (Auto) 69.4 Lymph % (Auto) 9.2 L [place] % (Auto) 8.1 Eos % (Auto) 9.7 H Baso % (Auto) 1.0 Lymph # (Auto) 0.92 [place] # (Auto) 0.8 H Eos # (Auto) 1.0 H Baso # (Auto) 0.1 Abs Immat Gran (auto) 0.26 H Absolute Neuts (auto) 6.9 H Absolute Nucleated RBC 0.000 Nucleated RBC % 0.0 Sodium 139 Potassium 4.0 Chloride 102 Carbon Dioxide 31 H Anion Gap 6 BUN 19 Creatinine 0.94 Estim Creat Clear Calc 67 Estimated GFR > 60 Glucose 83 Calcium 8.8 Magnesium 2.1 Total Bilirubin 0.4 AST 25 ALT 16 Alkaline Phosphatase 85 Total Protein 7.0 Albumin 3.0 L Discharge Plan Discharge Consulting providers: Fernando Mosley Discharging Clinician: Marily King Anticipated Discharge Date/Time: 12/04/24 14:53 Patient Disposition: Home Health Service Activity: february shower Diet: regular Discharge Instructions: Per Care Coordination Patient to have [facility] for RN/PT/OT eval and treat [phone] - They will contact patient to schedule first visit. Discharge instructions: Take medications as prescribed New medications prescribed: Oxygen You are activity as tolerated Monitor blood pressures Avoid social areas, you wear a mask when in social settings Encouraged to continue with yearly vaccinations Return to the emergency department if he developed sudden shortness of breath, chest pain, nausea, vomiting, upset stomach or intractable diarrhea Return to the emergency department if you develop fever greater than 101.5 Follow-up with: Your primary care physician within 1-2 weeks for post hospitalization check up Follow-up with pulmonology in 2 weeks Thank you for choosing [facility] for your healthcare needs Patient Instructions: Antibiotic Form Patient Language: Chinese Stand Alone Forms: General Discharge Information Follow-up/Referrals: Vickey Hernandez MD [Primary Care Provider] - Fernando Mosley MD [Physician] - 2 Weeks Discharge Medications: Continued lidocaine 5 % adhesive patch,medicated 1 patch TOPICAL DAILY omeprazole 20 mg capsule,delayed release(DR/EC) 20 mg PO BID Stages Men's Multi-Vitamin 200 mcg-300 unit-20 mcg tablet 1 tablet PO DAILY pregabalin [Lyrica] 150 mg capsule 150 mg PO BID ferrous sulfate 325 mg (65 mg iron) tablet 325 mg PO DAILY oxycodone 10 mg/0.5 mL syringe 10 mg PO Q4H tizanidine 4 mg capsule 4 mg PO TID PRN (Reason: muscle spasticity) Qty: 30 0RF bupropion HCl 300 mg tablet extended release 24 hr See Rx Instructions .ROUTE .COMPLEX Qty: 90 0RF Dose Instruction: TAKE 1 TABLET BY MOUTH EVERY MORNING Rx Instructions: TAKE 1 TABLET BY MOUTH EVERY MORNING albuterol sulfate 90 mcg/actuation HFA aerosol inhaler See Rx Instructions .ROUTE .COMPLEX Qty: 8.5 1RF Dose Instruction: TAKE 1-2 PUFFS EVERY 4 HOURS NEEDED FOR SHORTNESS OF BREATH/WHEEZING. Rx Instructions: TAKE 1-2 PUFFS EVERY 4 HOURS NEEDED FOR SHORTNESS OF BREATH/WHEEZING. vitamin B complex Tablet 1 tablet PO DAILY aspirin [Adult Low Dose Aspirin] 81 mg tablet,delayed release (DR/EC) 81 mg PO DAILY midodrine 2.5 mg tablet 2.5 mg PO BID Qty: 180 1RF Rx Instructions: do not give last dose of day after 6PM or within 4 hrs of bedtime trazodone 50 mg tablet 100 mg PO QHS levetiracetam 500 mg tablet extended release 24 hr 1,000 mg PO QHS paroxetine HCl 40 mg tablet See Rx Instructions .ROUTE .COMPLEX Qty: 90 1RF Dose Instruction: TAKE 1 TABLET BY MOUTH EVERY DAY Rx Instructions: TAKE 1 TABLET BY MOUTH EVERY DAY Trelegy Ellipta 100-62.5-25 mcg blister with device 1 inh inhalation DAILY Qty: 60 3RF cyanocobalamin (vitamin B-12) 1,000 mcg/mL solution See Rx Instructions .ROUTE .COMPLEX Qty: 3 1RF Dose Instruction: INJECT 1ML INTO MUSCLE ONCE MONTHLY Rx Instructions: INJECT 1ML INTO MUSCLE ONCE MONTHLY BD Luer-Collin Syringe 3 mL 25 gauge x 1 syringe See Rx Instructions .ROUTE .COMPLEX Qty: 3 3RF Dose Instruction: FOR FOR ONCE MONTHLY IM INJECTIONS OF VITAMIIN B12 DIRECTED Rx Instructions: FOR ONCE MONTHLY IM INJECTIONS OF VITAMIIN B12 DIRECTED lorazepam 0.5 mg tablet 0.5 mg PO BID PRN (Reason: anxiety) Qty: 60 1RF Date of admission: 11/13/24 21:48 Primary Care Provider: Vickey Hernandez Admitting Provider: Jazmin Bell Attending physician on admission: Hannah Brink Condition: Stable Quality VTE Prophylaxis VTE prophylaxis: mechanical ordered and pharmacologic ordered Hospitalist MIPS Heart Failure (Exclusion) Patient has history of Heart Transplant or Left Ventricular Assistive Device?: No IF YES, STOP HERE Heart Failure (Qualifier) Patient has current or prior documentation of LVEF less than or equal to 40%, or mod/servere depressed LVSF?: No IF NO, STOP HERE
== END 2024-12-04 16:25 | disposition home health service (06) | DRG 193 ==
LOC: ANHED 21:48 → ANH3MEDSUR 22:23 → ANHIMU 11-21 13:12 → ANH3MEDSUR 12-04 14:55 → ANHIMU 12-05 08:44
PROVIDERS: Internal Medicine Pulmonary Disease; Nurse Practitioner Family; Physician Assistant; Admitting Provider General Practice; Emergency Provider Student in an Organized Health Care Education/Training Program; PCP Internal Medicine; Visit Provider Nurse Practitioner Gerontology
DX: J10.01 Influenza due to other identified influenza virus with the same other identified influenza virus pneumonia (principal); J96.01 Acute respiratory failure with hypoxia; J96.02 Acute respiratory failure with hypercapnia; J44.0 Chronic obstructive pulmonary disease with (acute) lower respiratory infection; J10.08 Influenza due to other identified influenza virus with other specified pneumonia; J18.9 Pneumonia, unspecified organism; J12.3 Human metapneumovirus pneumonia; J13 Pneumonia due to Streptococcus pneumoniae; E53.8 Deficiency of other specified B group vitamins; D50.9 Iron deficiency anemia, unspecified; F11.90 Opioid use, unspecified, uncomplicated; J43.1 Panlobular emphysema; F17.210 Nicotine dependence, cigarettes, uncomplicated; K21.9 Gastro-esophageal reflux disease without esophagitis; E87.6 Hypokalemia; K59.00 Constipation, unspecified; G89.29 Other chronic pain; M54.6 Pain in thoracic spine; Y95 Nosocomial condition; Z20.822 Contact with and (suspected) exposure to COVID-19; Z79.82 Long term (current) use of aspirin; Z79.899 Other long term (current) drug therapy; Z85.118 Personal history of other malignant neoplasm of bronchus and lung; Z98.84 Bariatric surgery status; Z90.2 Acquired absence of lung [part of]
CPT/HCPCS: 36415; 36600; 71045; 71250; 71275; 74018; 80048; 80053; 82103; 82104; 82805; 83605; 83735; 83880; 84145; 84484; 85018; 85025; 85027; 85055; 85380; 85610; 85730; 86140; 86738; 87040; 87070; 87205; 87449; 87633; 87637; 87641; 87899; 93005; 93306; 93970; 94618; 94640; 94667; 94668; 94669; 94762; 96361; 96365; 96367; 96375; 97110; 97116; 97162; 97165; 97530; 97535; 99285; A9270; J0456; J0692; J0696; J1650; J1836; J1940; J1956; J2919; J3370; J7030; J7040; Q9967

== ENCOUNTER 2025-01-18 10:21 | Outpatient (CLI) | payer MEDICARE, MEDICAID, SELFPAY ==
[2025-01-18 10:40] LABS: Basophils Percent Auto 0.6 % (0.2-1.2); Eosinophils Absolute Auto 0.5 K/mm3 (0-0.3); Hematocrit 41.8 % (42.0-52.0); Hemoglobin 12.8 g/dL (14.0-18.0); Immature Granulocyte Absolute 0.02 K/mm3 (0.00-0.031); Immature Granulocyte Percent A 0.3 % (0-0.5); Lymphocytes Absolute Auto 1.32 K/mm3 (0.9-3.2); Lymphocytes Percent Auto 19.2 % (18.3-44.2); Mean Corpuscular HGB Conc 30.6 g/dl (32-36); Mean Corpuscular Volume 81.8 fl (80-100); Mean Platelet Volume 9.4 fl (7.4-10.4); Monocytes Absolute Auto 0.5 K/mm3 (0.1-0.6); Monocytes Percent Auto 7.6 % (2.6-8.5); Neutrophils Absolute Auto 4.5 K/mm3 (1.3-6.7); Neutrophils Percent Auto 65.3 % (45.5-73.1); Platelet Count Result 306 k/mm3 (150-375); Red Blood Count 5.11 M/mm3 (4.6-6.20); Red Cell Distribution Width 16.4 % (11.5-14.5); White Blood Count 6.9 K/mm3 (4.5-10.0)
[2025-01-18 10:46] LABS: Blood Urea Nitrogen 17 mg/dL (8-26); Carbon Dioxide 28 mmol/L (22-30); Chloride 102 mmol/L (98-109); Estimated Glomerular Filt Rate > 60; Glucose 106 mg/dL (70-105); Ionized Calcium (POC) 1.12 mmol/L (1.11-1.31); Potassium 3.9 mmol/L (3.5-4.9); Sodium 141 mmol/L (138-146)
--- OUTSIDE RECORDS SUMMARY | 2025-01-18 11:14 | XMS_ITS | Clinical Summary ---
Author Organization [facility] Address [address] [place] [address] Care Team Providers Care Insurance Plan Specialist Name Role Phone Vickey Hernandez MD Primary Care Provider Source Comments [facility],non-owned Affiliates and Associated Physician Practices is amultiple site organization consisting of ambulatory clinics and hospital sitesin [place], [place], [place] and [place]. This disclosure is being madepursuant to the Care Everywhere program and may not contain all information available regarding this patient. Last updated 18.[facility] Allergies No known active allergies Medications * Be aware that medications may not be up to date on this document. Alwaysverify current medications with the patient. albuterol HFA (Proventil; Ventolin; Proair) 108 (90 Base) MCG/ACT inhaler Inhale 2 (two) puffs by mouth every 4 hours as needed for Wheezing 2 Active albuterol HFA (Proventil; Ventolin; Proair) 108 (90 Base) MCG/ACT inhaler Inhale 2 (two) puffs by mouth every 6 hours as needed for Shortness of Breath Active buPROPion XL 24hr (Wellbutrin-XL ) 300 MG tablet Take 1 (one) tablet by mouth daily with breakfast 3 Active Fluticasone-Um eclidin-Vilant (Trelegy) 100-62.5-25 MCG/ACT Inhale 1 (one) puff by mouth once daily 2 Active levETIRAcetam (Keppra) 500 MG tablet Take 1 (one) tablet by mouth every 12 hours 3 Active levETIRAcetam CR 24hr (Keppra XR) 500 MG tablet Take 2 (two) tablets by mouth once daily 3 Active cyanocobalamin (Vitamin B-12) injection Inject 1,000 (one thousand) mcg into muscle every 30 days 3 Active lidocaine (Lidoderm) 5 % patch Apply 1 (one) patch to affected area once daily Active LORazepam (Ativan) 0.5 MG tablet Take 1 (one) tablet by mouth 2 times daily as needed for anxiety 2 Active Multiple Vitamin (Daily Vites) TABS Take 1 (one) tablet by mouth once daily Active pregabalin (Lyrica) 150 MG capsule 2 Active B-D 3CC LUER-ROSA SYR 25GX1 25G X 1 3 ML MISC USE TO INJECT B12 MONTHLY 2 Active tiZANidine (Zanaflex) 4 MG tablet 3 Active traZODone (Desyrel) 50 MG tablet TAKE 1 - 2 TABLETS BY MOUTH AT BEDTIME FOR SLEEP 2 Active varenicline (Chantix) 1 MG tablet Take 1 (one) tablet by mouth 2 times daily 1 Active enoxaparin (Lovenox) 40 MG/0.4ML injection Inject 40 (forty) mg subcutaneously once daily 3 Active polyethylene glycol 3350 (Miralax) 17 g packet Take 17 (seventeen) g by mouth once daily 14 packet 3 Active docusate sodium (Colace) 100 MG capsule Take 1 (one) capsule by mouth once daily 0 3 Active oxyCODONE, immediate release, (Roxicodone) 5 MG tabletIndicati ons:Closed fracture of left tibia and fibula, initial encounter Take 1 (one) tablet by mouth every 6 hours as needed for Pain 42 tablet 3 Active Active Problems Problem Noted Date Diagnosed [...] cancer of right lung 01/16/2020 12/05/2022 Immunizations Immunization Administration Dates Next Due TDAP (7yrs+) 11/29/2022 Social History Tobacco Use Types Packs/Day Years Used Date Smoking Tobacco: Every Day Cigarettes 0.5 50.3 Started: 1974 Smokeless Tobacco: Never Tobacco Cessation:Ready [...] and heating? Not hard at all 12/03/2022 [facility] [place] [facility] - Occupational Stress [...] place to sleep or slept in a penitentiary (including now)? No 12/03/2022 Sex and Gender Information Value Date Recorded Sex Assigned at Not on file Legal Sex Male 9:21 AM CDT Gender Identity Not on file Sexual Orientation Not on file Last Filed Vital Signs Vital Sign Reading Time Taken Comments Blood Pressure 142/81 12/06/2022 9:17 AM MECHANICAL ENGINEERING DIRECTOR Pulse 96 12/06/2022 9:17 AM MECHANICAL ENGINEERING DIRECTOR Temperature 37 C (98.6 F) 12/06/2022 7:57 AM MECHANICAL ENGINEERING DIRECTOR Respiratory Rate 18 12/06/2022 10:29 AM MECHANICAL ENGINEERING DIRECTOR Oxygen Saturation 94% 12/06/2022 10:29 AM MECHANICAL ENGINEERING DIRECTOR Inhaled Oxygen Concentration - - Weight 77.1 kg (170 lb) 11/29/2022 2:06 PM MECHANICAL ENGINEERING DIRECTOR Height 172.7 cm (5' 8 ) 11/29/2022 2:06 PM MECHANICAL ENGINEERING DIRECTOR Body Mass Index 25.85 11/29/2022 2:06 PM MECHANICAL ENGINEERING DIRECTOR Plan of Treatment Health Maintenance Due Date Last Done Comments COLOGUARD (AGES 45-75) - COLON CA SCREENING 1959 COLON MONITORING 1959 COLONOSCOPY - COLON CA SCREENING 1959 CT COLONOGRAPHY - COLON CA SCREENING 1959 Colorectal Cancer Screening 1959 FIT - COLON CA SCREENING 1959 FLEX SIG - COLON CA SCREENING 1959 MEDICARE AWV 12 MONTHS 1959 HIV SCREENING 1974 HEPATITIS C SCREENING 03/28/1977 PNEUMOCOCCAL VACCINE 50+ (1 of 2 - PCV) 1978 ZOSTER VACCINE (1 of 2) 2009 AAA SCREENING 2024 COVID-19 VACCINE ( - season) 2024 DEPRESSION SCREENING 10/04/2024 INFLUENZA VACCINE (Season Ended) 2025 SCREENING FOR DIABETES 12/06/2025 , 12/05/2022, 12/04/2022, Additional history exists LIPID TESTING 04/11/2028 04/11/2023, 04/08/2023 DTAP/TDAP/TD VACCINES (2 - Td or Tdap) [...] complete this topic MENINGOCOCCAL (Group B) VACCINE SHARED DECISION-MAKING Aged Out No longer eligible based on patient's age to complete this topic MENINGOCOCCAL GROUPS A/C/Y/W VACCINE Aged Out No longer eligible based on patient's age to complete this topic Medical Devices Implanted Type Area Tax Manager Cpa Device Identifier Shelf Expiration Date Model / Serial / Lot Screw 4mm 5mm 60mm .5 Thrd Rvrs Cut Flut Implanted:Qty: 1 on 11/30/2022 by Felipe Garcia MD at [facility] Left: Tibia [employer] [id number] / / Screw 4mm 5mm 80mm .5 Thrd Rvrs Cut Flut Implanted:Qty: 1 on 11/30/2022 by Felipe Garcia MD at [facility] Left: Tibia [employer] [id number] / / Nail Implanted:Qty: 1 on 11/30/2022 by Felipe Garcia MD at [facility] Left: Tibia [employer] 06/03/2029 [id number] / / Screw 5mm 3.5mm 40mm Ft Slf-Tap Fx Ang Implanted:Qty: 1 on 11/30/2022 by Felipe Garcia MD at [facility] Left: Tibia [employer] 09/12/2032 [id number] / / Screw 5mm 3.5mm 45mm Ft Fx Ang Hex Head Implanted:Qty: 1 on 11/30/2022 by Felipe Garcia MD at [facility] Left: Tibia [employer] 10/26/2032 [id number] / / Screw 5mm 3.5mm 47.5mm Ft Slf-Tap Fx Ang Implanted:Qty: 1 on 11/30/2022 by Felipe Garcia MD at [facility] Left: Tibia [employer] 07/20/2032 [id number] / / Screw 5mm 3.5mm 50mm Ft Slf-Tap Fx Ang Implanted:Qty: 1 on 11/30/2022 by Felipe Garcia MD at [facility] Left: Tibia [employer] 07/06/2032 [id number] / / Screw 5mm 3.5mm 40mm Ft Slf-Tap Fx Ang Implanted:Qty: 1 on 11/30/2022 by Felipe Garcia MD at [facility] Left: [employer] 09/12/2032 [id number] / / Screw 5mm 3.5mm 60mm Ft Fx Ang Hex Head Implanted:Qty: 1 on 11/30/2022 by Felipe Garcia MD at [facility] Left: [employer] 12/24/2031 [id number] / / Explanted Type Area Tax Manager Cpa Device Identifier Shelf Expiration Date Model / Serial / Lot Nail Explanted:Qty: 1 on 11/30/2022 by Felipe Garcia MD at [facility] Left: Tibia [employer] 09/02/2025 [id number] / / Screw 5mm 3.5mm 70mm Ft Slf-Tap Fx Ang Explanted:Qty: 1 on 11/30/2022 by Felipe Garcia MD at [facility] Left: Tibia [employer] 08/02/2032 [id number] / / Procedures Procedure Name Priority Date/Time Associated Diagnosis Comments BASIC METABOLIC PANEL (CALCIUM TOTAL) Routine 12/06/2022 1:09 AM MECHANICAL ENGINEERING DIRECTOR Closed fracture of left tibia and fibula, initial encounter from Last 3 Months or Most Recently Relevant to Health Maintenance Results * (ABNORMAL) BASIC METABOLIC PANEL (CALCIUM TOTAL) (12/06/2022 1:09 AM [facility]) BUN 12 7 - 26 mg/dL 12/06/2022 2:03 AM [facility] Creatinine 0.88 0.71 - 1.16 mg/dL 12/06/2022 2:03 AM [facility] Sodium 141 136 - 145 mmol/L 12/06/2022 2:03 AM [facility] Potassium 4.0 3.5 - 4.5 mmol/L 12/06/2022 2:03 AM [facility] Chloride 106 98 - 107 mmol/L 12/06/2022 2:03 AM [facility] CO2 27 22 - 29 mmol/L 12/06/2022 2:03 AM [facility] Glucose 88 70 - 115 mg/dL 12/06/2022 2:03 AM [facility] Calcium 7.6(L) 8.4 - 10.2 mg/dL 12/06/2022 2:03 AM [facility] Anion Gap 12 8 - 18 12/06/2022 2:03 AM [facility] BUN/Creatinine Ratio 14 7 - 23 12/06/2022 2:03 AM [facility] Osmolality Calculated 291 270 - 300 mOsm/kg 12/06/2022 2:03 AM [facility] eGFR by CKD-EPI >90 >=90 mL/min/1.7 3 m2 12/06/2022 2:03 AM [facility] Blood BLOOD SPECIMEN / Unknown Lab Venipuncture / Unknown 12/06/2022 1:09 AM MECHANICAL ENGINEERING DIRECTOR 12/06/2022 1:28 AM [facility] Caterina Lind MD LAB - CHEMISTRY ORDERABLES Fin al Result [facility] [address] [place] [address], [place] [phone] from Last 3 Months or Most Recently Relevant to Health Maintenance Insurance MEDICAID - [place] MEDICARE [facility] Care Teams Insurance Plan Specialist Relationship Specialty Start Date End Date Vickey Hernandez MD [address] [place] [address] PCP - General 08/04/19
--- OUTSIDE RECORDS SUMMARY | 2025-01-18 11:14 | XMS_ITS ---
Author Organization [facility] Address [address] [place] [address] Care Team Providers Care Corn Cutter Name Role Phone Wayne Chantelbony Ngo [phone] REASON FOR VISIT meds Encounters Encounter Location Date Provider Diagnosis [facility] [address] [place] [address] 01/15/2025 Chantel Black Plan Of Treatment No Information Progress Notes * Manuel WHALENeDOB:1960 (64 yo M)Acc No.[id number]:01/15/2025 Progress Notes Patient: Kiran VILLAFANA Appointment Provider: Jabari Black NP :1960 A ge:64 Y S ex:Male Supervising Provider:Tran Roberts MD Date:01/15/2025 Address:[address] [place], [place] [id number] Subjective: * Chief Complaints: * 1 . Meds. * Medical History: Objective: * Vitals: Assessment: Plan: * Treatment: * Billing Information: * Visit Code: * Procedure Codes: * Electronic signature of Helga Roberts MD on 01/18/2025 at 10:20 AM CDT Sign off status: Pending * Appointment Provider: Jabari Black NP Date: 0 01/15/2025 Generated for Printing/Faxing/eTransmitting on: 0 01/18/2025 10:20 AM CDT
--- OUTSIDE RECORDS SUMMARY | 2025-01-18 11:14 | XMS_ITS | Clinical Summary ---
Author Organization [facility] Address [address] [address] [place] [address] Phone Care Team Providers Care Light Bulb Replacer Name Role Phone Vickey Hernandez MD Primary [...] Pain. 0 Active naloxone (NARCAN) 4 mg/spray [place], Non-Aerosol EMERGENCY USE ONLY: Administer 1 spray [...] directed on package. 53 Tablet 4 Active midodrine (PROAMATINE) 2.5 mg Tablet Take 2.5 mg by mouth 2 times daily. 5 Active Active Problems Problem Noted Date Diagnosed Date Non-small cell cancer of right lung 01/16/2020 Iron deficiency anemia 10/24/2019 Tobacco use 07/08/2017 Hypotension due to drugs 07/08/2017 HTN (hypertension) Depression Amputation of left index finger Resolved Problems Problem Noted Date Diagnosed Date Resolved Date Lung mass 12/25/2019 01/16/2020 Encounters Date Type Department Care Team Description 01/18/2025 10:15 AM CDT Office Visit [facility] [address] [place] [phone] Juliocesar Zelaya MD Non-small cell cancer of right lung (CMS/HCC) (Primary Dx) 01/16/2025 External Device Data [facility] ABSTRACTION Provider, Abstract 01/12/2025 Telephone [facility] [address] [place] [phone] Juliocesar Zelaya MD Missed Call 01/02/2025 External Device Data [facility] ABSTRACTION Provider, Abstract 12/20/2024 External Device Data [facility] ABSTRACTION Provider, Abstract 12/09/2024 External Device Data [facility] ABSTRACTION Provider, Abstract 12/08/2024 External Device Data [facility] ABSTRACTION Provider, Abstract 12/05/2024 External Device Data [facility] ABSTRACTION Provider, Abstract 11/22/2024 External Device Data [facility] ABSTRACTION Provider, Abstract 11/21/2024 External Device Data [facility] ABSTRACTION Provider, Abstract 10/31/2024 External Device Data [facility] ABSTRACTION Provider, [...] Q uit: 02/09/2020 Smokeless Tobacco: Never Tobacco Cessation:Counseling Given: Not Answered Alcohol Use Standard Drinks/Week Comments No 0 (1 standard drink = 0.6 oz pur e alcohol) Sex and Gender Information Value Date Recorded Sex Assigned at Not on file Legal Sex Male 3:14 PM CDT Gender Identity Not on file Sexual Orientation Not on file Last Filed Vital Signs Vital Sign Reading Time Taken Comments Blood Pressure 114/69 01/18/2025 10:24 AM CDT Pulse 111 01/18/2025 10:24 AM CDT Temperature 36.7 C (98 F) 01/18/2025 10:24 AM CDT Respiratory Rate 14 01/18/2025 10:24 AM CDT Oxygen Saturation 84% 01/18/2025 10:24 AM CDT Inhaled Oxygen Concentration - - Weight 66.2 kg (146 lb) 01/18/2025 10:24 AM CDT Height 172.7 cm (5' 8 ) 02/09/2022 11:16 AM CDT Body Mass Index 22.2 02/09/2022 11:16 AM CDT Plan of Treatment Health Maintenance Due Date Last Done Comments Traditional Medicare (ACO) Annual Wellness Visit 04/02 COLORECTAL SCREENING 2004 Colorectal Cancer Screening 2004 FIT-DNA Q 3 years 2004 FIT/FOBT Q 1 year 2004 Flex Sig/CT Colonography Q 5 years 2004 PNEUMOCOCCAL VACCINE 50+ YEARS (1 of 1 - PCV) 04/02/20 09 ZOSTER VACCINE (1 of 2) 2009 Abdominal Aortic Aneurysm (AAA) Screening 2024 INFLUENZA VACCINE (#1) 2024 DTAP/TDAP/TD VACCINES (2 - Td or Tdap) 11/29/2032 RSV VACCINE (60+ or ) (1 - 1-dose 75+ series) 2034 Medical Devices Implanted Type Area Ring Barker Operator Device Identifier Shelf Expiration Date Model / Serial / Lot Clip Ligating Horizon Lg Ti [id number] - Csc - [id number] Implanted:Qty: 1 on 01/23/2020 by Oscar Michel MD at [facility] Clip Right: Chest TELEFLEX- WECK CLOSURE SYS 10/09/2023 [id number] / / [id number] Clip Ligating Horizon Med Ti [id number] - Csc - [id number] Implanted:Qty: 4 on 01/23/2020 by Ocsar Michel MD at [facility] Clip Right: Chest TELEFLEX- WECK CLOSURE SYS 06/19/2024 [id number] / / [id number] Sealant Fibrin Evicel 5ml 3905 - [id number] Implanted:Qty: 1 on 01/23/2020 by Oscar Michel MD at [facility] Other Right: Chest [employer] 06/03/2021 3905 / [id number] / [id number] Adh Bioglue 10ml [id number] - [id number] Implanted:Qty: 1 on 01/23/2020 by Oscar Michel MD at [facility] Tissue Right: Chest [employer] 07/09/2021 [id number] / / [id number] [place] Ptfe Thck 2.8mmx2.5x2.5c m [id number] - [id number] Implanted:Qty: 1 on 01/23/2020 by Oscar Michel MD at [facility] Tissue Right: Chest CR BARD[employer] 10/31/2021 [id number] / / [id number] Hardware Back Explanted Type Area Ring Barker Operator Device Identifier Shelf Expiration Date Model / Serial / Lot Hemostatic Surgicel 4x8in 1952 - [id number] Explanted:Qty: 1 on 01/23/2020 at [facility] Hemostatic Right: Chest [employer] 06/03/20221951 / / [id number] Insurance RX [facility] Commercial MED[place]ID [place] MED[place]ARE PART A AND B [facility] MEDICARE PART A AND B [facility] MEDICAID [place] Advance Directives For more information, please contact: [phone] * Full Code (Latest Code Status on File) Date Activated Date Inactivated Comments 01/23/2020 8:52 AM 01/27/2020 2:16 PM * Full Code Date Activated Date Inactivated Comments 01/23/2020 5:22 AM 01/23/2020 8:52 AM * Full Code Date Activated Date Inactivated Comments 07/08/2017 6:32 PM 07/09/2017 5:38 PM * Full Code Date Activated Date Inactivated Comments 07/08/2017 3:18 PM 07/08/2017 3:50 PM Care Teams Light Bulb Replacer Relationship Specialty Start Date End Date Vickey Hernandez MD [address] [place] [phone] PCP - General Internal Medicine 07/09/17
--- OUTSIDE RECORDS SUMMARY | 2025-01-18 11:14 | XMS_ITS ---
Author Organization [facility] Address [address] [place] [address] [address] [place] [address] Care Team Providers Care Sky Cap Name Role Phone Wayne Chantel Jeni [phone] REASON FOR VISIT meds- FB25 Encounters Encounter Location Date Provider Diagnosis [facility] [address] [place] [address] [address] [place] [address] 01/18/2025 Chantel Black Plan Of Treatment No Information Progress Notes * MARLEE SrinivasálvaroeDOB:1960 (64 yo M)Acc No.[id number]:01/18/2025 Patient: Kiran VILLAFANA Appointment Provider: Jabari Black NP :1960 A ge:64 Y S ex:Male Date:01/18/2025 Address:[address] [place], [place] [id number] Subjective: * Chief Complaints: * 1 . meds- FB25. * Medical History: Objective: * Vitals: Assessment: Plan: * Treatment: * Billing Information: * Visit Code: * Procedure Codes: * Electronic signature of Fran Black DNP/NELL on 01/18/2025 at 11:13 AM CDT Sign off status: Pending * Appointment Provider: Jabari Black NP Date: 0 01/18/2025 Generated for Printing/Faxing/eTransmitting on: 01/18/2025 11:13 AM CDT
--- OUTSIDE RECORDS SUMMARY | 2025-01-18 11:14 | XMS_ITS | Patient Health Record ---
Author Organization [facility] Address [address] [place] [address] Care Team Providers Care Teletray Operator Name Role Phone Tran Roberts Unavailable [phone] Chantel Black Unavailable [phone] Armando Joss Unavailable [phone] Allergies Allergen (clinical drug ingredient) Drug/Non Drug [...] 100-62.5-25 MCG/ACT Inhalation for 30 Days Unknown Midodrine HCl 2.5 MG 2.5 mg orally twice a day; do not give last dose of day after 6PM or within 4 hrs of bedtime Oral for 30 Days Active Cyanocobalamin 1000 MCG/ML Injection for 84 Days Unknown Hydrocortisone 2.5 % External for 30 Days [...] SLEEP Oral for 90 Days Unknown Nystatin 327763 UNIT/ML TAKE 5 ML (500,0 00 UNITS [...] ONCE MONTHLY Injection for 90 Days Unknown tiZANidine HCl 4 mg Take 1 tablet three times a day 90 days for 90 Active Atorvastatin Calcium 10 MG TAKE ONE TABLET BY MOUTH EVERY DAY Oral for 30 Days Unknown oxyCODONE HCl 5 MG/5ML 10 milliliters Or al every 4 hours for 30 days 11/09/2024 Active Problems Problem Type SNOMED Code ICD Code Onset Dates Problem Status W/U Status Risk Notes Problem Amnesia (49791699) Other amnesia (R41.3) Active confirmed Problem High risk drug monitoring status (520870971) correction (current) use of opiate analgesic (Z79.891) Active confirmed Problem History of bariatric surgical procedure (767660195) Bariatric surgery status (Z98.84) Active confirmed Problem Lumbar spondylosis (531140467) Lumbar spondylosis (M47.816) Active confirmed Problem Leg length discrepancy (574825497) Leg length discrepancy (M21.70) Active confirmed Problem Hypercholesterolemia (32064001) Hypercholesterolemia (E78.00) Active confirmed Problem Lumbar radiculopathy (650058292) Lumbar radiculopathy (M54.16) Active confirmed Problem Lumbar post-laminectomy syndrome (790846790) Lumbar postlaminectomy syndrome (M96.1) Active confirmed Problem Sacroiliitis (87889897) Sacroiliitis (M46.1) Active confirmed Problem Neck pain (49333009) Cervical sp ine pain (M54.2) Active confirmed Problem Low back pain (428731181) Low back pain (M54.50) Active confirmed Problem Postherpetic neuralgia (6473486) Postherpetic neuralgia (B02.29) Active confirmed Problem COPD - Chronic obstructive pulmonary disease (41555609) COPD (chronic obstructive pulmonary disease) (J44.9) Active confirmed Vital Signs Heart Rate 82 /min 11/09/2024 Respiratory Rate 16 /min 10/12/2024 Height-cm 175.26 cm 11/09/2024 Blood pressure diastolic 88 mm Hg 11/09/2024 Weight-kg 74.39 kg 11/09/2024 Height 5ft 9in in 11/09/2024 Blood pressure systolic 131 mm Hg 11/09/2024 Weight 164 lbs 11/09/2024 BMI 24.22 kg/m2 11/09/2024 Encounters Encounter Location Date Provider Diagnosis [facility] [address] [place] [address] [address] [place] [address] 01/20/2024 Tran Roberts [facility] [address] [place] [address] [address] [place] [address] 02/24/2024 Tran Roberts [facility] [address] [place] [address] [address] [place] [address] 03/23/2024 Chantel Black [facility] [address] [place] [address] [address] [place] [address] 04/24/2024 Chantel Black [facility] [address] [place] [address] [address] [place] [address] 01/18/2025 Chantel Black [facility] [address] [place] [address] [address] [place] [address] 05/22/2024 Chantel Black Postherpetic neuralgia B02.29 ; Low back pain M54.50 ; Other amnesia R41.3 ; Bariatric surgery status Z98.84 and correction use of drug Z79.899 [facility] [address] [place] [address] [address] [place] [address] 06/19/2024 Chantel Black Low back pain M54.50 ; Other amnesia R41.3 ; Postherpetic neuralgia 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.29 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.891 [facility] [address] [place] [address] [address] [place] [address] 07/17/2024 Chantel Black Low back pain M54.50 ; Other amnesia R41.3 ; Postherpetic neuralgia B02.29 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 Z79.899 [facility] [address] [place] [address] [address] [place] [address] 08/14/2024 Chantel Black Other amnesia R41.3 ; Low back pain M54.50 ; Postherpetic neuralgia B02.29 ; Bariatric surgery status Z98.84 and correction (current) use of opiate analgesic Z79.891 [facility] [address] [place] [address] [address] [place] [address] 09/12/2024 Joss Armando Other amnesia R41.3 ; Postherpetic neuralgia B02.29 ; Low back pain M54.50 ; Bariatric surgery status Z98.84 ; 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 Z79.891 ; [...] fracture S32.000A and Thoracic compression fracture S22.000A [facility] [address] [place] [address] [address] [place] [address] 10/12/2024 Joss oRberts Low back pain M54.50 ; Lumbar spondylosis [...] R41.3 and TIA (transient ischemic attack) G45.9 DME [facility] [address] [place] [address] [address] [place] [address] 10/12/2024 Joss Roberts Low back pain M54.50 and Lumbar radiculopathy M54.16 [facility] [address] [place] [address] [address] [place] [address] 11/09/2024 Joss Graynberg Postherpetic neuralg ia B02.29 ; Low back pain M54.50 ; Lumbar spondylosis M47.816 ; Leg length discrepancy M21.70 ; Lumbar radiculopathy M54.16 ; Lumbar postlaminectomy syndrome M96.1 ; Sacroiliitis M46.1 ; Cervical spine pain M54.2 ; COPD (chronic obstructive pulmonary disease) J44.9 ; Hypercholesterolemia E78.00 ; Lumbar spine pain M54.50 ; S/P bariatric surgery Z98.84 ; Lung cancer C34.90 ; History of TIA (transient ischemic attack) Z86.73 ; Other amnesia R41.3 ; Bariatric surgery status Z98.84 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.891 [facility] [address] [place] [address] [address] [place] [address] 01/18/2025 Tran Roberts [facility] [address] [place] [address] [address] [place] [address] 05/22/2024 Tran Roberts [facility] [address] [place] [address] [address] [place] [address] 06/19/2024 Tran Roberts [facility] [address] [place] [address] [address] [place] [address] 07/17/2024 Tran Roberts [facility] [address] [place] [address] [address] [place] [address] 08/14/2024 Tran Roberts [facility] [address] [place] [address] 09/12/2024 Joss Roberts [facility] [address] [place] [address] 10/12/2024 Joss Roberts [facility] [address] [place] [address] 11/09/2024 Joss Roberts Assessments Encounter Date Diagnosis (ICD Code) Assessment Notes Treatment Notes Treatment Clinical Notes Section Notes 09/12/2024 Other amnesia (ICD-1 0 - R41.3) 05/22/2024 Postherpetic neuralg ia (ICD-10 - B02.29) Refill for controlled substance sent to supervising physician to be filledContinue home stretching and at home exercise program as toleratedFollow-u p in one month for med check, sooner if needed 05/22/2024 Low back pain (ICD-1 0 - M54.50) 06/19/2024 Low back pain (ICD-1 0 - M54.50) Refill for controlled substance sent to supervising physician to be filled Patient needs to follow up with neurology ASAPContinue home stretching and at home exercise program as toleratedFollow-u p in one month for med check, sooner if needed 06/19/2024 Other amnesia (ICD-1 0 - R41.3) 07/17/2024 Low back pain (ICD-1 0 - M54.50) Refill for controlled substance sent to supervising physician to be filled Continue home stretching and at home exercise program as tolerated Follow-up in one month for med check, sooner if needed 07/17/2024 Other amnesia (ICD-1 0 - R41.3) 08/14/2024 Other amnesia (ICD-1 0 - R41.3) 08/14/2024 Low back pain (ICD-1 0 - M54.50) Refill for controlled substance sent to supervising physician to be filled. Patient to see Dr. Coreas next month to discuss meds Continue home stretching and at home exercise program as tolerated Follow-up in one month for med check, sooner if needed 10/12/2024 Lumbar spondylosis (ICD-10 - M47.816) 10/12/2024 Low back pain (ICD-1 0 - M54.50) 10/12/2024 Low back pain (ICD-1 0 - M54.50) 10/12/2024 Lumbar radiculopathy (ICD-10 - M54.16) 11/09/2024 Postherpetic neuralg ia (ICD-10 - B02.29) 11/09/2024 Low back pain (ICD-1 0 - M54.50) 10/12/2024 Leg length discrepan cy (ICD-10 - M21.70) 11/09/2024 Lumbar spondylosis (ICD-10 - M47.816) 08/14/2024 Postherpetic neuralg ia (ICD-10 - B02.29) 07/17/2024 Postherpetic neuralg ia (ICD-10 - B02.29) 06/19/2024 Postherpetic neuralg ia (ICD-10 - B02.29) 05/22/2024 Other amnesia (ICD-1 0 - R41.3) Patient to follow-up with Dr. Rivas, neuologist, [facility] 09/12/2024 Postherpetic neuralg ia (ICD-10 - B02.29) 09/12/2024 Low back pain (ICD-1 0 - M54.50) 05/22/2024 Bariatric surgery status (ICD-10 - Z98.84) 06/19/2024 correction (current) use of opiate analgesic (ICD-10 - Z79.891) 08/14/2024 Bariatric surgery status (ICD-10 - Z98.84) 07/17/2024 correction use of erendira g (ICD-10 - Z79.899) 11/09/2024 Leg length discrepan cy (ICD-10 - M21.70) 10/12/2024 Lumbar radiculopathy (ICD-10 - M54.16) 10/12/2024 Lumbar postlaminecto my syndrome (ICD-10 - M96.1) 11/09/2024 Lumbar radiculopathy (ICD-10 - M54.16) 08/14/2024 correction (current) use of opiate analgesic (ICD-10 - Z79.891) 05/22/2024 correction use of erendira g (ICD-10 - Z79.899) 09/12/2024 Bariatric surgery status (ICD-10 - Z98.84) 09/12/2024 correction (current) use of opiate analgesic (ICD-10 - Z79.891) 11/09/2024 Lumbar postlaminecto my syndrome (ICD-10 - M96.1) 10/12/2024 Sacroiliitis (ICD-10 - M46.1) 10/12/2024 Lumbar spine pain (ICD-10 - M54.50) 11/09/2024 Sacroiliitis (ICD-10 - M46.1) 09/12/2024 Lumbar spondylosis (ICD-10 - M47.816) 09/12/2024 Leg length discrepan cy (ICD-10 - M21.70) 11/09/2024 Cervical spine pain (ICD-10 - M54.2) 10/12/2024 Cervical spine pain (ICD-10 - M54.2) 10/12/2024 COPD (chronic obstructive pulmonary disease) (ICD-10 - J44.9) 11/09/2024 COPD (chronic obstructive pulmonary disease) (ICD-10 - J44.9) 09/12/2024 Left leg pain (ICD-1 0 - M79.605) 09/12/2024 Lumbar radiculopathy (ICD-10 - M54.16) 11/09/2024 Hypercholesterolemia (ICD-10 - E78.00) 10/12/2024 Postherpetic neuralg ia (ICD-10 - B02.29) 11/09/2024 Lumbar spine pain (ICD-10 - M54.50) 10/12/2024 Hypercholesterolemia (ICD-10 - E78.00) 09/12/2024 S/P bariatric surger y (ICD-10 - Z98.84) 09/12/2024 Fracture of tibia or fibula following insertion of orthopedic implant, joint prosthesis, or bone plate, left leg (ICD-10 - M96.672) 10/12/2024 History of gastric bypass (ICD-10 - Z98.84) 11/09/2024 S/P bariatric surger y (ICD-10 - Z98.84) 11/09/2024 Lung cancer (ICD-10 - C34.90) 10/12/2024 Lung cancer (ICD-10 - C34.90) 09/12/2024 Lumbar spine pain (ICD-10 - M54.50) 09/12/2024 Memory loss or impairment (ICD-10 - R41.3) 10/12/2024 Bariatric surgery status (ICD-10 - Z98.84) 11/09/2024 History of TIA (transient ischemic attack) (ICD-10 - Z86.73) 11/09/2024 Other amnesia (ICD-1 0 - R41.3) 09/12/2024 Memory loss (ICD-10 - R41.3) 10/12/2024 Other amnesia (ICD-1 0 - R41.3) 09/12/2024 TIA (transient ische antoine attack) (ICD-10 - G45.9) 11/09/2024 Bariatric surgery status (ICD-10 - Z98.84) 10/12/2024 TIA (transient ische antoine attack) (ICD-10 - G45.9) 11/09/2024 correction (current) use of opiate analgesic (ICD-10 - Z79.891) 09/12/2024 History of TIA (transient ischemic attack) (ICD-10 - Z86.73) 09/12/2024 Pelvic obliquity (ICD-10 - M95.5) 09/12/2024 Lumbar postlaminecto my syndrome (ICD-10 - M96.1) 09/12/2024 Sacroiliitis (ICD-10 - M46.1) 09/12/2024 Gait abnormality (ICD-10 - R26.9) 09/12/2024 Hx of cancer of lung (ICD-10 - Z85.118) 09/12/2024 Smoking history (ICD -10 - Z87.891) ICD F32.A-Depress ion: 09/12/2024 Lumbar compression fracture (ICD-10 - S32.000A) 09/12/2024 Thoracic compression fracture (ICD-10 - S22.000A) 09/12/2024 Other Body Mass Index: Care Instructions [...] took positive delivery today of TLSO brace, [employer] 456 code 0456. Full instructions were given to patient as well as risk benefits and alternatives of the use of the brace. Patient's is present. 11/09/2024 Other High Blood Pressure: Care Instructions [...] care of the brace. Plan Of Treatment Pending Test Test Name Order Date CT Lumbar WO 09/12/2024 Leg Length 09/12/2024 X ray : Spines, lumbar 4 views 4 Insurance Providers Payer Name Payer Address Payer Phone Subscriber Number Group Number Insured Name Patient Relationship to Insured Coverage Start Date Coverage End Date [employer] [place] [address] [address] [place] [phone] [id number] Kiran Smith Self - patient is the insured 1 [facility] [address] [place] [phone] [id number] PLAN G Kiran Smith Self - patient is the insured Medical (General) History Medical History History ICD Code Lung cancer Depression TIA Post herpetic neuralgia Surgical History Surgery Date(Month/Year) Gastric bypass ORIF left leg right middle lobectomy Hospitalization History Reason Date(Month/Year) no hospitalization since prior visit
[2025-01-18 11:15] LABS: Iron 50 ug/dL (49-181)
--- OUTSIDE RECORDS SUMMARY | 2025-01-18 11:15 | XMS_ITS | Encounter Summary ---
Author Organization [facility] Address [address] [place] [address] Care Team Providers Care Hair Sample Matcher Name Role Phone Vickey Hernandze MD Primary Care Provider + Encounter Details Date Type Department Care Team (Late st Contact Info) Description 12/28/2019 Chart Note [facility] [address] [place] [address] [place] [address] [place] [address] Social History Tobacco Use Types [...] as of this encounter Plan of Treatment Not on file documented as of this encounter Visit Diagnoses Not on filedocumented in this encounter Care Teams Hair Sample Matcher Relationship Specialty Start Date End Date Vickey Hernandez MD [address] [place] [id number] PCP - General Internal Medicine 07/09/17 documented as of this encounter
--- OUTSIDE RECORDS SUMMARY | 2025-01-18 11:15 | XMS_ITS | Encounter Summary ---
Author Organization [facility] Address [address] [place] [address] Care Team Providers Care Engineering Lab Technician Name Role Phone Vickey Hernandez MD Primary Care Provider + Encounter Details Date Type Department Care Team (Late st Contact Info) Description 01/16/2025 External Device Data [facility] ABSTRACTION Provider, Abstract NO ADDRESS ON FILE Social History Tobacco Use Types Packs/Day Years Used Date Smoking Tobacco: Former Cigarettes Q uit: 02/09/2020 Smokeless Tobacco: Never Alcohol Use Standard Drinks/Week Comments No 0 (1 standard drink = 0.6 oz pur e alcohol) Sex and Gender Information Value Date Recorded Sex Assigned at Not on file Legal Sex Male 3:14 PM CDT Gender Identity Not on file Sexual Orientation Not on file documented as of this encounter Plan of Treatment Not on file documented as of this encounter Visit Diagnoses Not on filedocumented in this encounter Care Teams Engineering Lab Technician Relationship Specialty Start Date End Date Vickey Hernandez MD [address] [place] [address] PCP - General Internal Medicine 07/09/17 documented as of this encounter
--- OUTSIDE RECORDS SUMMARY | 2025-01-18 11:15 | XMS_ITS | Clinical Summary ---
Author Organization [facility] Address [address] [place] [address] Care Team Providers Care Certified Residential Medication Aide Name Role Phone Vickey Hernandez MD Primary Care Provider [phone] Social History Tobacco Use Types Packs/Day Years [...] Td Vaccines ( 1 - Tdap) 1978 Pneumococcal Vaccine: 50+ Ye ars (1 of 1 - PCV) 2009 Zoster Vaccines (1 of 2) 2009 COVID-19 Vaccine ( - 2023-2 5 season) 2024 RSV Immunization or 60+ Years (1 [...] age to complete this topic Care Teams Certified Residential Medication Aide Relationship Specialty Start Date End Date Vickey Hernandez MD PCP - General 01/06/17
--- OUTSIDE RECORDS SUMMARY | 2025-01-18 11:15 | XMS_ITS | Encounter Summary ---
Author Organization [id number] [facility] Address [address] [place] [address] Care Team Providers Care Percussion Teacher Name Role Phone Vickey Hernandez MD Primary Care Provider + Reason for Referral * PET Scan (Routine) - Open Specialty Diagnoses / Procedures Referred By Contac t Referred To Contact Diagnoses Non-small cell cancer of right lung (CMS/HCC) Procedures PET TUMOR OR INFECTION IMG W CT SKB Juliocesar Zelaya MD [address] [address] Phone: tel: fax: Referral ID Status Reason Start Date Expiration Date Visits Re quested Visits Authorized [id number] Open 01/18/2025 02/18/2026 1 1 Reason for Visit * Reason Comments Cancer Follow Up Encounter Details Date Type Department Care Team (Late st Contact Info) Description 01/18/2025 10:15 AM CDT Office Visit [facility] Oncology and Hematology - Tad [address] [facility] [address] [place] [address] Juliocesar Zelaya MD [address] [place] [address] Non-small cell cancer of right lung (CMS/HCC) (Primary Dx) Social History Tobacco Use Types Packs/Day Years [...] on file documented as of this encounter Last Filed Vital Signs Vital Sign Reading Time Taken Comments Blood Pressure 114/69 01/18/2025 10:24 AM CDT Pulse 111 01/18/2025 10:24 AM CDT Temperature 36.7 C (98 F) 01/18/2025 10:24 AM CDT Respiratory Rate 14 01/18/2025 10:24 AM CDT Oxygen Saturation 84% 01/18/2025 10:24 AM CDT Inhaled Oxygen Concentration - - Weight 66.2 kg (146 lb) 01/18/2025 10:24 AM CDT Height - - Body Mass Index 22.2 02/09/2022 11:16 AM CDT documented in this encounter Progress Notes * Juliocesar Zelaya MD - 01/18/2025 11:01 AM CDT HEMATOLOGY / ONCOLOGY PROGRESS NOTE Patient Identification: Name: Kiran Smith Age: 64 y.o. Sex: male : 1960 DIAGNOSIS T1c N0 M0 stage IA squamous cell carcinoma of the lung status post bronchoscopy and biopsy done on January 08, 2020. Now status post right middle lobe lobectomy done on January 23, 2020. Iron deficiency anemia Vitamin B12 deficiency CURRENT TREATMENT Surveillance TREATMENT HISTORY [facility] April 2019 and June 02, 2019 Right middle lobe lobectomy on January 23, 2020. SUBJECTIVE Patient came to the office for follow-up visit after recently being discharged from the hospital 2024 when he was treated for influenza A and pneumonia. He is quite short of breath and requiring 4 L of oxygen to maintain hope oxygen saturation of 86%. He looks quite tired and fatigued. No chest pain. No weight loss. No other new complaints. Review of system Constitutional: denies fevers, sweats, complain of tiredness and fatigue, weight and appetite stable HEENT: denies sinus congestion, hearing or vision problems Respiratory: Complain of shortness of breath and dyspnea on exertion Cardiovascular: denies chest pain, exertional chest pressure/discomfort, nausea, syncope, GI: denies constipation, diarrhea, dsyphagia, reflux symptoms, vomiting, melena : denies dysuria, frequency, incontinence, urgency Integumentary system: no lymphadenopathy, sweats, flushing Musculoskeletal: Complain of lower back pain Neurological: denies blurry or disturbed vision, numbness/weakness, dizziness Skin: No lumps, bumps or rashes. 12 point review of system was reviewed Objective: Vital signs in last 24 hours: As per nursing note Exam: General appearance: alert, cooperative, no distress, appears stated age patient looks visibly shortof breath and tired and fatigue Head: normocephalic, without obvious abnormality, atraumatic Eyes: conjunctivae/corneas clear, EOM's intact Ears: normal external ear canals AU Nose: Nares normal. Septum midline. Mucosa normal. No drainage or sinus tenderness Throat: Lips, mucosa, and tongue normal. Teeth and gums normal Neck: supple, symmetrical, trachea midline. Lungs: clear to auscultation bilaterally Heart: regular rate and rhythm, S1, S2 normal, no murmur, click, rub or gallop Abdomen: soft, non-tender. Bowel sounds normal. No masses, No organomegaly Extremities: extremities normal, atraumatic, no cyanosis or edema, left hip hematoma Skin: Skin color, texture, turgor normal. No rashes or lesions Lymph nodes: No lymphadenopathy Exam as above PATH FINAL DIAGNOSIS A. Lymph node, level 11, excision: - One lymph node with necrotizing granulomatous inflammation, negative for malignancy (0/1). B. Lung, right middle lobe, lobectomy: - Squamous cell carcinoma, keratinizing (2.8 cm). - Squamous cell carcinoma in situ. - Invasive and in situ carcinoma present at the specimen bronchial margin. - Parenchymal and vascular margins negative for carcinoma. - Extensive tumor necrosis present. - Background lung with obstructive changes and emphysema. - See synoptic report. C. Lymph node, level 4, excision: - Two lymph nodes, negative for malignancy (0/2). D. Lymph node, level 8, excision: - One lymph node with hyalinized granuloma, negative for malignancy (0/1). E. Lymph node, level 7, excision: - Two lymph nodes with focal hyalinized granuloma, negative for malignancy (0/2). F. Bronchial margin, second, excision for frozen section: Scant fragment of cartilage and submucosal glands, negative for malignancy. G. Bronchial margin, final, excision for frozen section. - Bronchial mucosa, negative for malignancy. at 1827 LABS Labs from June 19 showed WBC 12.2 hemoglobin 13.3 platelet 168,000 creatinine 1.0 iron 20 ironsaturation 7% ferritin 347 vitamin B12 432 Labs from July 05 showed WBC 7.2 hemoglobin 14.1 platelet 217,000 iron 100 iron saturation 32% ferritin 294 vitamin B12 939. Labs from October 19 showed WBC 7.7 hemoglobin 11.6 platelet 234,000 iron 62 iron saturation 17% ferritin 143 Labs from December 24 show WBC 7.1 hemoglobin 15.1 platelet 165,000. Labs from February 19 showed WBC 7.1 hemoglobin 13 platelet 296,000 creatinine 1.1 Labs from April 30 show WBC 6.3 hemoglobin 14.3 platelet 203,000 creatinine 1.1 Labs from August 06 showed hemoglobin 14.5 creatinine 1.0 Labs from February 2021 showed WBC 6.8 hemoglobin 14.4 platelet 189,000. Labs from August 11 showed WBC 5.9 hemoglobin 14.3 platelet 249,000 Labs from February 09 showed hemoglobin 14.8 creatinine 1.1 Labs from January 05 showed WBC 7.1 hemoglobin 13.3 platelet 248,000 iron 52 saturation 16 ferritin 49vitamin B12 954 creatinine 0.9 total bilirubin 0.5 Labs from July 17 showed hemoglobin 13.7 creatinine 1.0 B12 928 iron saturation 16 iron 53 ferritin 42 Assessment: Plan: Patient Active Problem List Diagnosis Date Noted Non-small cell cancer of right lung (CMS/HCC) 01/16/2020 Iron deficiency anemia 10/24/2019 Tobacco use 07/08/2017 Hypotension due to drugs 07/08/2017 HTN (hypertension) Depression Amputation of left index finger Non-small cell lung cancer T1 cN0 M0 stage IA disease. Now status post right middle lobe lobectomy done on January 23, 2020. All lymph nodes were negative for malignancy. Tumor was 2.8 cm in size with all the margins negative. Events noted. Patient was admitted to the hospital and discharged on December 04, 2024 after being treated for influenza A and pneumonia. Patient had CT scan chest done on November 27 that showed widespread pneumonia left versus the right along with mucous plugging in the left mainstem bronchus and 14 mm nodule in the right lower lobe of the lung. Given this patient breathing status I will send him to the ER for admission and treatment for pneumonia. Patient will have PET scan done as an outpatient after getting better from pneumonia episode. Follow-up with me in 4 weeks. Patient will call us to order the PET scan before the next appointment. Iron and vitamin B12 deficiency status post gastric bypass surgery in 2000. Patient will continue monthly B12 injections at home and iron once a day. 01/18/2025 Juliocesar Zelaya MD documented in this encounter Plan of Treatment Scheduled Orders Name Type Priority Associated Diagnoses Orde r Schedule PET TUMOR OR INFECTION IMG W CT SKB MDTH Imaging Routine Non-small cell cancer of right lung (CMS/HCC) Expected: 02/17/2025, Expires: 01/18/2026 documented as of this encounter Visit Diagnoses Diagnosis Non-small cell cancer of right lung (CMS/HCC)- Primary documented in this encounter Care Teams Percussion Teacher Relationship Specialty Start Date End Date Vickey Hernandez MD [address] [place] [address] PCP - General Internal Medicine 07/09/17 documented as of this encounter
--- OUTSIDE RECORDS SUMMARY | 2025-01-18 11:15 | XMS_ITS | Clinical Summary ---
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 Gender Identity Not on file Sexual Orientation [...] Cancer Screening-PSA 1960 Hepatitis B Screening 1977 Pneumococcal vaccine 65+ (1 of 1 - PCV) 2009 Zoster Vaccine (2 of 3) 02/23/2017 12/29/2016 Abdominal Aortic Aneurysm (AAA) Screen 2024 Well Visit 65+ 2024 Fall Risk Assessment 01/23/2025 01/24/2024 Influenza Vaccine (Season Ended) 2025 12/30/19 17 DTaP/Tdap/Td Vaccine (2 - Td or Tdap) 11/29/2032 Insurance [facility] MEDICARE [facility] MEDICARE SUPPLEMENT MEDICARE IDPA BLUE TRADITIONAL [place] Advance Directives For more information, please contact: [phone] * Full Code (Latest Code Status on [...] 10:52 PM 04/18/2023 2:18 PM Care Teams Chief Executive Or Managing Director Relationship Specialty Start Date End Date Vickey Hernandez MD [address] [email or web address] [address] [place] [address] PCP - General 03/20/14 Felipe Brand MD [address] [facility] [phone] [place] [address] (work) Referring Physician General Surgery 05/02/23
--- OUTSIDE RECORDS SUMMARY | 2025-01-18 11:15 | XMS_ITS | Referral Summary ---
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 Gender Identity Not on file Sexual [...] Plan of Treatment Not on file Insurance [facility] MEDICARE [facility] MEDICARE SUPPLEMENT MEDICARE [facility] Advance Directives For more information, please contact: [phone] * Full Code (Latest Code Status on [...] 10:52 PM 04/18/2023 2:18 PM Care Teams Power Plant Operator Relationship Specialty Start Date End Date Vickey Hernandez MD [address] [place] [address] [place] [id number] PCP - General 03/20/14 Felipe Brand MD [address] [facility] [id number] [place] [address] Referring Physician General Surgery 05/02/23
[2025-01-18 11:18] LABS: Alanine Aminotransferase 25 U/L (6-50); Albumin Level 3.9 g/dL (3.5-5.1); Alkaline Phosphatase 122 U/L (38-126); Anion Gap 9 mmol/L (4-12); Aspartate Amino Transferase 33 U/L (17-59); Bilirubin,Total 0.4 mg/dL (0.2-1.3); Blood Urea Nitrogen 19 mg/dL (9-20); Calcium 8.8 mg/dL (8.4-10.2); Carbon Dioxide 30 mmol/L (22-30); Chloride 102 mmol/L (98-107); Estimated Glomerular Filt Rate > 60; Glucose 110 mg/dL (65-110); Sodium 141 mmol/L (137-145)
[2025-01-18 11:25] LABS: Percent Iron Saturation 16 % (20-50)
[2025-01-18 12:07] LABS: Vitamin B12 > 1000.0 pg/mL (239-931)
[2025-01-18 13:01] LABS: Folic Acid 17.2 ng/mL (2.76->20)
== END 2025-01-18 10:22 | disposition home or self-care (01) ==
LOC: ANHLAB 10:25
PROVIDERS: PCP Internal Medicine; Visit Provider Internal Medicine Hematology & Oncology
DX: D64.9 Anemia, unspecified (principal)
CPT/HCPCS: 36415; 80047; 80053; 82607; 82728; 82746; 83540; 83550; 85025

== ENCOUNTER 2025-01-18 10:51 | Emergency (ER) | payer MEDICARE, MEDICAID, SELFPAY ==
[2025-01-18] VITALS (7 sets, daily range): BP systolic 112–140; BP diastolic 72–81; PULSE 76–93; RESP 14–27; TEMP 36.6; O2SAT 92–100
--- NOTE | ~2025-01-18 | CT_ITS ---
CTA chest PE protocol Ordering provider: Rafael Rodriguez MD History: 64 years Male with . SOB . Comparison: None. Technique: CT angiogram chest was performed following timed intravenous injection of contrast. Thin s lice axial images and reformatted coronal images were obtained. Three dimensional reformatted images of the chest were also obtained using a [employer] workstation. . Automated exposure control and iterati ve reconstruction technique were employed. The dose-length product was 215.01 mGy-cm. 100 mL Omnipaqu e 350 was given IV. Findings: PULMONARY ARTERIES: No pulmonary embolus. VISUALIZED THORACIC INLET: Normal. MEDIASTINUM: Aorta/coronary arteries: Mild atheromatous disease. Heart/other: The heart is not enlarged. Lymph nodes: No mediastinal or hilar adenopathy. Paratracheal lymph node is seen measuring 1.5 cm. LUNGS: Left basal pneumonia with minimal effusion. Multiple patchy tree-in-bud appearing areas in the left u pper lobe suggestive of pneumonia. Nodularity is seen in the lingula. Nodule in the left apical area measuring 1 cm. 3 months follow-up CT is advised. No pulmonary masses. No effusions. No pneumothorax. Underlying emphysematous changes. VISUALIZED UPPER ABDOMEN: Right renal cyst measuring 3.9 cm. Small sliding hiatus hernia. Otherwise, the visualized upper abdomen is normal. MUSCULOSKELETAL: Soft tissues: The superficial soft tissues are normal. Bones: Age appropriate degenerative changes of the spine. Healing rib fractures seen in the left thir d and 10th ribs. Healing fracture also seen in the right fourth and fifth ribs. IMPRESSION: 1. No pulmonary embolism. 2. Left basal pneumonia with minimal effusion. Multiple patchy opacities in the left upper lobe and lingula suggestive of infection. Follow-up advised. 3. Right renal cyst. 4. Nodule in the left apical area. [address] follow-up advised. 5. Bilateral healing rib fractures. Reviewed, dictated and finalized at location A. IMPRESSION: 1. No pulmonary embolism. 2. Left basal pneumonia with minimal effusion. Multiple patchy opacities in th e left upper lobe and lingula suggestive of infection. Follow-up advised. 3. Right renal cyst. 4. Nodule in the left apical area. [address] follow-up advised. 5. Bilateral healing rib fractures.
--- NOTE | ~2025-01-18 | XR_ITS ---
CHEST RADIOGRAPH, PA AND LATERAL CLINICAL HISTORY: SOB X THIS MORNING . COMPARISON: 12/04/2024 TECHNIQUE: PA and lateral views of the chest. FINDINGS The cardiomediastinal silhouette is partially obscured. Elevation of the left hemidiaphragm with interval development of a left-sided pleural effusion and ad jacent compressive atelectasis. The remainder of the lungs are clear. Dorsal column stimulator device is noted. IMPRESSION: Elevation of the left hemidiaphragm with left-sided pleural effusion and adjacent compressive atelect asis. Reviewed, dictated and finalized at location A. IMPRESSION: Elevation of the left hemidiaphragm with left-sided pleural effusion and adjace nt compressive atelectasis.
--- OUTSIDE RECORDS SUMMARY | 2025-01-18 11:44 | XMS_ITS | Encounter Summary ---
Author Organization [facility] [employer] [facility] Address [address] [place] [address] Care Team Providers Care Varnish Finisher Name Role Phone Vickey Hernandez MD Primary Care Provider + Reason for Referral * PET Scan (Routine) - Open Specialty Diagnoses / Procedures Referred By Contac t Referred To Contact Diagnoses Non-small cell cancer of right lung (CMS/HCC) Procedures PET TUMOR OR INFECTION IMG W CT SKB Juliocesar Zelaya MD [address] [address] Phone: tel: fax: Referral ID Status Reason Start Date Expiration Date Visits Re quested Visits Authorized [id number] Open 01/18/2025 02/18/2026 1 1 Reason for Visit * Reason Comments Cancer Follow Up Encounter Details Date Type Department Care Team (Late st Contact Info) Description 01/18/2025 10:15 AM CDT Office Visit [facility] Oncology and Hematology - Tad [address] [facility] [address] [place] [address] Juliocesar Zelaya MD [address] [place] [address] Non-small cell cancer of right lung [...] B12 deficiency CURRENT TREATMENT Surveillance TREATMENT HISTORY [facility] April 2019 and June 02, 2019 Right [...] Primary documented in this encounter Care Teams Varnish Finisher Relationship Specialty Start Date End Date Vickey Hernandez MD [address] [place] [address] PCP - General Internal Medicine 07/09/17 documented as of this encounter
--- OUTSIDE RECORDS SUMMARY | 2025-01-18 11:44 | XMS_ITS | Clinical Summary ---
Author Organization [facility] [email or web address] Address [address] [facility] [place] [address] Care Team Providers Care Male Model Name Role Phone Vickey Hernandez MD Primary Care Provider [phone] Source Comments [facility] [email or web address],non-owned Affiliates and Associated Physician Practices is amultiple site organization consisting of ambulatory clinics and hospital sitesin [place], [place], [place] and [place]. This disclosure is being madepursuant to the Care Everywhere program and may not contain all information available regarding this patient. Last updated 18.[facility] [email or web address] Allergies No known active allergies Medications * [...] and heating? Not hard at all 12/03/2022 [facility] of Occupat ional Health - Occupational Stress [...] Comments Blood Pressure 142/81 12/06/2022 9:17 AM AIRCRAFT PARTS ASSEMBLER Pulse 96 12/06/2022 9:17 AM AIRCRAFT PARTS ASSEMBLER Temperature 37 C (98.6 F) 12/06/2022 7:57 AM AIRCRAFT PARTS ASSEMBLER Respiratory Rate 18 12/06/2022 10:29 AM AIRCRAFT PARTS ASSEMBLER Oxygen Saturation 94% 12/06/2022 10:29 AM AIRCRAFT PARTS ASSEMBLER Inhaled Oxygen Concentration - - Weight 77.1 kg (170 lb) 11/29/2022 2:06 PM AIRCRAFT PARTS ASSEMBLER Height 172.7 cm (5' 8 ) 11/29/2022 2:06 PM AIRCRAFT PARTS ASSEMBLER Body Mass Index 25.85 11/29/2022 2:06 PM AIRCRAFT PARTS ASSEMBLER Plan of Treatment Health Maintenance Due Date [...] this topic Medical Devices Implanted Type Area Post Doctoral Fellow Device Identifier Shelf Expiration Date Model / Serial / Lot Screw 4mm 5mm 60mm .5 Thrd Rvrs Cut Flut Implanted:Qty: 1 on 11/30/2022 by Felipe Garcia MD at [facility] Left: Tibia [employer] [id number] / / Screw 4mm 5mm 80mm .5 Thrd Rvrs Cut Flut Implanted:Qty: 1 on 11/30/2022 by Felipe Garcia MD at [facility] Left: Tibia [employer] [id number] / / Nail Implanted:Qty: 1 on 11/30/2022 by Felipe Garcia MD at [facility] Left: Tibia [employer] 06/03/2029 [id number] / / Screw 5mm 3.5mm 40mm Ft Slf-Tap Fx Ang Implanted:Qty: 1 on 11/30/2022 by Felipe Garcia MD at [facility] Left: Tibia [employer] 09/12/2032 [id number] / / Screw 5mm 3.5mm 45mm Ft Fx Ang Hex Head Implanted:Qty: 1 on 11/30/2022 by Felipe Garcia MD at [facility] Left: Tibia [employer] 10/26/2032 [id number] / / Screw 5mm 3.5mm 47.5mm Ft Slf-Tap Fx Ang Implanted:Qty: 1 on 11/30/2022 by Felipe Garcia MD at [facility] Left: Tibia [employer] 07/20/2032 [id number] / / Screw 5mm 3.5mm 50mm Ft Slf-Tap Fx Ang Implanted:Qty: 1 on 11/30/2022 by Felipe Garcia MD at [facility] Left: Tibia [employer] 07/06/2032 [id number] / / Screw 5mm 3.5mm 40mm Ft Slf-Tap Fx Ang Implanted:Qty: 1 on 11/30/2022 by Felipe Garcia MD at [facility] Left: Tibia [employer] 09/12/2032 [id number] / / Screw 5mm 3.5mm 60mm Ft Fx Ang Hex Head Implanted:Qty: 1 on 11/30/2022 by Felipe Garcia MD at [facility] Left: Tibia [employer] 12/24/2031 [id number] / / Explanted Type Area Post Doctoral Fellow Device Identifier Shelf Expiration Date Model / Serial / Lot Nail Explanted:Qty: 1 on 11/30/2022 by Felipe Garcia MD at [facility] Left: Tibia [employer] 09/02/2025 [id number] / / Screw 5mm 3.5mm 70mm Ft Slf-Tap Fx Ang Explanted:Qty: 1 on 11/30/2022 by Felipe Garcia MD at [facility] Left: Tibia [employer] 08/02/2032 [id number] / / Procedures Procedure Name Priority Date/Time Associated Diagnosis Comments BASIC METABOLIC PANEL (CALCIUM TOTAL) Routine 12/06/2022 1:09 AM AIRCRAFT PARTS ASSEMBLER Closed fracture of left tibia and fibula, initial encounter from Last 3 Months or Most Recently Relevant to Health Maintenance Results * (ABNORMAL) BASIC METABOLIC PANEL (CALCIUM TOTAL) (12/06/2022 1:09 AM [facility]) BUN 12 7 - 26 mg/dL 12/06/2022 2:03 AM [facility] Creatinine 0.88 0.71 - 1.16 mg/dL 12/06/2022 2:03 AM [facility] Sodium 141 136 - 145 mmol/L 12/06/2022 2:03 AM [facility] Potassium 4.0 3.5 - 4.5 mmol/L 12/06/2022 2:03 AM [facility] Chloride 106 98 - 107 mmol/L 12/06/2022 2:03 AM [facility] CO2 27 22 - 29 mmol/L 12/06/2022 2:03 AM [facility] Glucose 88 70 - 115 mg/dL 12/06/2022 2:03 AM [facility] Calcium 7.6(L) 8.4 - 10.2 mg/dL 12/06/2022 2:03 AM [facility] Anion Gap 12 8 - 18 12/06/2022 2:03 AM [facility] BUN/Creatinine Ratio 14 7 - 23 12/06/2022 2:03 AM [facility] Osmolality Calculated 291 270 - 300 mOsm/kg 12/06/2022 2:03 AM [facility] eGFR by CKD-EPI >90 >=90 mL/min/1.7 3 m2 12/06/2022 2:03 AM [facility] Blood BLOOD SPECIMEN / Unknown Lab Venipuncture / Unknown 12/06/2022 1:09 AM AIRCRAFT PARTS ASSEMBLER 12/06/2022 1:28 AM [facility] Caterina Lind MD LAB - CHEMISTRY ORDERABLES Fin al Result [facility] [address] [place] [address], [place] [phone] from Last 3 Months or Most Recently Relevant to Health Maintenance Insurance MEDICAID - [place] MEDICARE PENDING SALE TO [facility] Care Teams Male Model Relationship Specialty Start Date End Date Vickey Hernandez MD [address] [place] [address] PCP - General 08/04/19
--- OUTSIDE RECORDS SUMMARY | 2025-01-18 11:44 | XMS_ITS | Clinical Summary ---
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 Gender Identity Not on file Sexual [...] (2 - Td or Tdap) 11/29/2032 Insurance [facility] MEDICARE [facility] MEDICARE SUPPLEMENT MEDICARE IDPA BLUE TRADITIONAL [place] Advance Directives For more information, please contact: [phone] * Full Code (Latest Code Status on [...] 10:52 PM 04/18/2023 2:18 PM Care Teams Roof Promenade Tile Setter Relationship Specialty Start Date End Date Vickey Hernandez MD [address] [facility] [address] [place] [address] PCP - General 03/20/14 Felipe Brand MD [address] [facility] [phone] [place] [address] (work) Referring Physician General Surgery 05/02/23
--- OUTSIDE RECORDS SUMMARY | 2025-01-18 11:44 | XMS_ITS ---
Author Organization [facility] Address [address] [place] [address] [address] [place] [address] Care Team Providers Care Hand Lacer Name Role Phone Tran Roberts Jeni [phone] Medications Medication SIG (Take, Route, Fr equency, Duration) Notes Start Date End Date Status oxyCODONE HCl 5 MG/5ML 10 milliliters Or al every 4 hours for 30 days 11/09/2024 Active Encounters Encounter Location Date Provider Diagnosis [facility] [address] [facility] [address] [place] [address] 01/18/2025 Tran Roberts Plan Of Treatment Medication Medication Name Sig Start Date Stop Date Notes oxyCODONE HCl 5 MG/5ML 10 milliliters Or al every 4 hours for 30 days 11/09/2024 Progress Notes * Manuel WHALENeDOB:1960 (64 yo M)Acc No.[id number]:01/18/2025 Patient: Dillon CHATMAN Kiran :1960 A ge:64 Y S ex:Male Address:[address] [place] [address], [address] * Refills Refill oxyCODONE HCl Solution, 5 MG/5ML, 1800 Milliliter, 10 milliliters Oral, every 4 hours, 30 days, Refills=0 * * Date:
--- OUTSIDE RECORDS SUMMARY | 2025-01-18 11:44 | XMS_ITS | Clinical Summary ---
Author Organization [facility] Address [address] [place] [address] [place] [address] Phone Care Team Providers Care Hospital Cook Name Role Phone Vickey Hernandez MD Primary [...] Pain. 0 Active naloxone (NARCAN) 4 mg/spray [place], Non-Aerosol EMERGENCY USE ONLY: Administer 1 spray [...] Description 01/18/2025 10:15 AM CDT Office Visit [facility] Oncology and Hematology [facility] [address] [place] [address] Juliocesar Zelaya MD Non-small cell cancer of right lung (CMS/HCC) (Primary Dx) 01/16/2025 External Device Data ST[facility] ABSTRACTION Provider, Abstract 01/12/2025 Telephone [facility] Oncology and Hematology [address] [place] [address] Juliocesar Zelaya MD Missed Call 01/02/2025 [...] series) 2034 Medical Devices Implanted Type Area Bumper Machine Operator Device Identifier Shelf Expiration Date Model / Serial / Lot Clip Ligating Horizon Lg Ti [id number] - Csc - [id number] Implanted:Qty: 1 on 01/23/2020 by Oscar Michel MD at [facility] Clip Right: Chest TELEFLEX- WECK CLOSURE SYS 10/09/2023 [id number] / / [id number] Clip Ligating Horizon Med Ti [id number] - Csc - [id number] Implanted:Qty: 4 on 01/23/2020 by Oscar Michel MD at [facility] Clip Right: Chest TELEFLEX- WECK CLOSURE SYS 06/19/2024 [id number] / / [id number] Sealant Fibrin Evicel 5ml 3905 - [id number] Implanted:Qty: 1 on 01/23/2020 by Oscar Michel MD at [facility] Other Right: Chest [employer] 06/03/2021 3905 / [id number] / [id number] Adh Bioglue 10ml [id number] - [id number] Implanted:Qty: 1 on 01/23/2020 by Oscar Michel MD at [facility] Tissue Right: Chest [employer] 07/09/2021 [id number] / / [id number] [place] Ptfe Thck 2.8mmx2.5x2.5c m [id number] - [id number] Implanted:Qty: 1 on 01/23/2020 by Oscar Michel MD at [facility] Tissue Right: Chest CR BARD[employer] 10/31/2021 [id number] / / [id number] Hardware Back Explanted Type Area Bumper Machine Operator Device Identifier Shelf Expiration Date Model / Serial / Lot Hemostatic Surgicel 4x8in 1952 - [id number] Explanted:Qty: 1 on 01/23/2020 at [facility] Hemostatic Right: Chest [employer] 06/03/20221951 / / [id number] Insurance RX [facility] Commercial MEDICAID [place] MED[place]ARE PART A AND B [facility] MEDICARE PART A AND B [facility] MEDICAID [place] Advance Directives For more information, please contact: [phone] * Full Code (Latest Code Status on File) Date Activated Date Inactivated Comments 01/23/2020 8:52 AM 01/27/2020 2:16 PM * Full Code Date Activated Date Inactivated Comments 01/23/2020 5:22 AM 01/23/2020 8:52 AM * Full Code Date Activated Date Inactivated Comments 07/08/2017 6:32 PM 07/09/2017 5:38 PM * Full Code Date Activated Date Inactivated Comments 07/08/2017 3:18 PM 07/08/2017 3:50 PM Care Teams Hospital Cook Relationship Specialty Start Date End Date Vickey Hernandez MD [address] [place] [address] PCP - General Internal Medicine 07/09/17
--- OUTSIDE RECORDS SUMMARY | 2025-01-18 11:44 | XMS_ITS | Referral Summary ---
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 Gender Identity Not on file Sexual Orientation [...] Plan of Treatment Not on file Insurance [facility] MEDICARE [facility] MEDICARE SUPPLEMENT MEDICARE [facility] Advance Directives For more information, please contact: [phone] * Full Code (Latest Code Status on [...] 10:52 PM 04/18/2023 2:18 PM Care Teams Assistant Corporate Controller Relationship Specialty Start Date End Date Vickey Hernandez MD [address] INTERNAL MEDICINE [place] [id number] PCP - General 03/20/14 Felipe Brand MD [address] [id number] [place] [address] Referring Physician General Surgery 05/02/23
--- OUTSIDE RECORDS SUMMARY | 2025-01-18 11:44 | XMS_ITS | Encounter Summary ---
Author Organization [facility] Address [address] [place] [address] Care Team Providers Care Physicians And Surgeons Name Role Phone Vickey Hernandez MD Primary [...] on filedocumented in this encounter Care Teams Physicians And Surgeons Relationship Specialty Start Date End Date Vickey Hernandez MD [address] [place] [address] PCP - General Internal Medicine 07/09/17 documented as of this encounter
--- OUTSIDE RECORDS SUMMARY | 2025-01-18 11:44 | XMS_ITS | Encounter Summary ---
Author Organization [facility] Address [address] [place] [address] Care Team Providers Care Tank Filler Name Role Phone Vickey Hernandez MD Primary Care Provider + Encounter Details Date Type Department Care Team (Late st Contact Info) Description 12/28/2019 Chart Note [facility] Radiation Therapy [address] [place] [address] [place] [address] [place] [address] Social History Tobacco Use Types [...] on filedocumented in this encounter Care Teams Tank Filler Relationship Specialty Start Date End Date Vickey Hernandez MD [address] [place] [address] PCP - General Internal Medicine 07/09/17 documented as of this encounter
--- OUTSIDE RECORDS SUMMARY | 2025-01-18 11:44 | XMS_ITS | Clinical Summary ---
Author Organization [facility] Address [address] [place] [address] Care Team Providers Care Infectious Waste Technician Name Role Phone Vickey Hernandez MD Primary Care Provider [phone] Social History Tobacco Use Types Packs/Day Years [...] age to complete this topic Care Teams Infectious Waste Technician Relationship Specialty Start Date End Date Vickey Hernandez MD PCP - General 01/06/17
--- NOTE | 2025-01-18 12:04 | ECG_ITS ---
Test Date: 2025-01-18 12:14:33 Measurements Intervals [place] Rate: 92 P: 66 LA: 167 QRS: 0 QRSD: 101 T: 57 QT: 335 QTc: 415 Interpretive Statements SINUS RHYTHM POSSIBLE LEFT ATRIAL ENLARGEMENT INCOMPLETE RIGHT BUNDLE BRANCH BLOCK BASELINE WANDER- AVR, AVL, AVF BORDERLINE ECG Compared to ECG 11/21/2024 20:50:51 No significant changes Electronically Signed On 01-18-2025 12:49:59 CDT by Victor Manuel Mackay D.O.
[2025-01-18 12:46] LABS: Basophils Percent Auto 0.6 % (0.2-1.2); Eosinophils Absolute Auto 0.3 K/mm3 (0-0.3); Eosinophils Percent Auto 4.6 % (0-4.4); Hematocrit 42.4 % (42.0-52.0); Hemoglobin 12.5 g/dL (14.0-18.0); Immature Granulocyte Absolute 0.02 K/mm3 (0.00-0.031); Immature Granulocyte Percent A 0.3 % (0-0.5); Lymphocytes Absolute Auto 0.92 K/mm3 (0.9-3.2); Lymphocytes Percent Auto 13.8 % (18.3-44.2); Mean Corpuscular HGB Conc 29.5 g/dl (32-36); Mean Corpuscular Hemoglobin 24.9 pg (26-34); Mean Corpuscular Volume 84.5 fl (80-100); Mean Platelet Volume 9.5 fl (7.4-10.4); Monocytes Absolute Auto 0.5 K/mm3 (0.1-0.6); Monocytes Percent Auto 7.2 % (2.6-8.5); Neutrophils Absolute Auto 4.9 K/mm3 (1.3-6.7); Neutrophils Percent Auto 73.5 % (45.5-73.1); Platelet Count Result 302 k/mm3 (150-375); Red Blood Count 5.02 M/mm3 (4.6-6.20); Red Cell Distribution Width 16.5 % (11.5-14.5); White Blood Count 6.7 K/mm3 (4.5-10.0)
[2025-01-18 13:02] LABS: Alanine Aminotransferase 24 U/L (6-50); Albumin Level 3.8 g/dL (3.5-5.1); Alkaline Phosphatase 109 U/L (38-126); Anion Gap 6 mmol/L (4-12); Aspartate Amino Transferase 29 U/L (17-59); Bilirubin,Total 0.4 mg/dL (0.2-1.3); Blood Urea Nitrogen 18 mg/dL (9-20); Calcium 8.7 mg/dL (8.4-10.2); Carbon Dioxide 33 mmol/L (22-30); Chloride 100 mmol/L (98-107); Estimated CRCL calculation 62 ml/min; Estimated Glomerular Filt Rate > 60; Glucose 116 mg/dL (65-110); Potassium 4.2 mmol/L (3.4-5.0); Sodium 139 mmol/L (137-145)
[2025-01-18 13:25] LABS: Platelet Estimate Adequate (Adequate); Schistocytes None Seen
--- OUTSIDE RECORDS SUMMARY | 2025-01-18 13:41 | XMS_ITS | Clinical Summary ---
Author Organization [facility] Address [address] [address] [place] [address] Phone Care Team Providers Care Pick Up Man Name Role Phone Vickey Hernandez MD Primary [...] Pain. 0 Active naloxone (NARCAN) 4 mg/spray [place], Non-Aerosol EMERGENCY USE ONLY: Administer 1 spray [...] Description 01/18/2025 10:15 AM CDT Office Visit [facility] Oncology and Hematology [facility] [address] [place] [phone] Juliocesar Zelaya MD Non-small cell cancer of right lung (CMS/HCC) (Primary Dx) 01/16/2025 External Device Data STL ABSTRACTION Provider, Abstract 01/12/2025 Telephone [facility] Oncology and Hematology [address] [place] [phone] Juliocesar Zelaya MD Missed Call 01/02/2025 [...] series) 2034 Medical Devices Implanted Type Area Foreign Language Professor Device Identifier Shelf Expiration Date Model / Serial / Lot Clip Ligating Horizon Lg Ti [id number] - Csc - [id number] Implanted:Qty: 1 on 01/23/2020 by Oscar Michel MD at [facility] Clip Right: Chest TELEFLEX- WECK CLOSURE SYS 10/09/2023 [id number] / / [id number] Clip Ligating Horizon Med Ti 111384 - Csc - [id number] Implanted:Qty: 4 on 01/23/2020 by Oscar Michel MD at [facility] Clip Right: Chest TELEFLEX- WECK CLOSURE SYS 06/19/2024 [id number] / / [id number] Sealant Fibrin Evicel 5ml 3905 - [id number] Implanted:Qty: 1 on 01/23/2020 by Oscar Michel MD at [facility] Other Right: Chest J[employer]J- [employer] 06/03/2021 3905 / [id number] / [id number] Adh Bioglue 10ml Zj1044-4-Sp - [id number] Implanted:Qty: 1 on 01/23/2020 by Oscar Michel MD at [facility] Tissue Right: Chest [employer]IFE INC 07/09/2021 [id number] S / / [id number] [place] Ptfe Thck 2.8mmx2.5x2.5c m 240780 - [id number] Implanted:Qty: 1 on 01/23/2020 by Oscar Michel MD at [facility] Tissue Right: Chest CR BARD- ALEXANDER VASC [employer] 10/31/2021 [id number] / / [id number] Hardware Back Explanted Type Area Foreign Language Professor Device Identifier Shelf Expiration Date Model / Serial / Lot Hemostatic Surgicel 4x8in 1952 - Explanted:Qty: 1 on 01/23/2020 at [facility] Hemostatic Right: Chest J[employer]J- [employer] 06/03/20221951 / / [id number] Insurance RX [facility] Commercial [place]ID [place] MEDICARE PART A AND B [facility] MEDICARE PART A AND B [facility] MEDICAID [place] Advance Directives For more information, please contact: [phone] * Full Code (Latest Code Status on File) Date Activated Date Inactivated Comments 01/23/2020 8:52 AM 01/27/2020 2:16 PM * Full Code Date Activated Date Inactivated Comments 01/23/2020 5:22 AM 01/23/2020 8:52 AM * Full Code Date Activated Date Inactivated Comments 07/08/2017 6:32 PM 07/09/2017 5:38 PM * Full Code Date Activated Date Inactivated Comments 07/08/2017 3:18 PM 07/08/2017 3:50 PM Care Teams Pick Up Man Relationship Specialty Start Date End Date Vickey Hernandez MD [address] [place] [address] PCP - General Internal Medicine 07/09/17
--- OUTSIDE RECORDS SUMMARY | 2025-01-18 13:41 | XMS_ITS | Clinical Summary ---
Author Organization [facility] Address [address] [place] [address] Care Team Providers Care Vault Custodian Name Role Phone Vickey Hernandez MD Primary Care Provider [phone] Source Comments [facility],non-owned Affiliates and Associated Physician Practices is amultiple site organization consisting of ambulatory clinics and hospital sitesin [place], [place], [place] and [place]. This disclosure is being madepursuant to the Care Everywhere program and may not contain all information available regarding this patient. Last updated 18.[facility] Allergies No known active allergies Medications * [...] and heating? Not hard at all 12/03/2022 [facility] of Occupat ional Health - Occupational Stress [...] place to sleep or slept in a half-way (including now)? No 12/03/2022 Sex and Gender Information Value Date Recorded Sex Assigned at Not on file Legal Sex Male 9:21 AM CDT Gender Identity Not on file Sexual Orientation Not on file Last Filed Vital Signs Vital Sign Reading Time Taken Comments Blood Pressure 142/81 12/06/2022 9:17 AM GANG INVESTIGATOR Pulse 96 12/06/2022 9:17 AM GANG INVESTIGATOR Temperature 37 C (98.6 F) 12/06/2022 7:57 AM GANG INVESTIGATOR Respiratory Rate 18 12/06/2022 10:29 AM GANG INVESTIGATOR Oxygen Saturation 94% 12/06/2022 10:29 AM GANG INVESTIGATOR Inhaled Oxygen Concentration - - Weight 77.1 kg (170 lb) 11/29/2022 2:06 PM GANG INVESTIGATOR Height 172.7 cm (5' 8 ) 11/29/2022 2:06 PM GANG INVESTIGATOR Body Mass Index 25.85 11/29/2022 2:06 PM GANG INVESTIGATOR Plan of Treatment Health Maintenance Due Date [...] this topic Medical Devices Implanted Type Area Cooker Loader Device Identifier Shelf Expiration Date Model / Serial / Lot Screw 4mm 5mm 60mm .5 Thrd Rvrs Cut Flut Implanted:Qty: 1 on 11/30/2022 by Felipe Garcia MD at [facility] Left: Tibia [employer] [id number] / / Screw 4mm 5mm 80mm .5 Thrd Rvrs Cut Flut Implanted:Qty: 1 on 11/30/2022 by Felipe Garcia MD at [facility] Left: Tibia [employer] [id number] / / Nail Implanted:Qty: 1 on 11/30/2022 by Felipe Garcia MD at [facility] Left: Tibia [employer] 06/03/2029 [id number] / / Screw 5mm 3.5mm 40mm Ft Slf-Tap Fx Ang Implanted:Qty: 1 on 11/30/2022 by Felipe Garcia MD at [facility] Left: Tibia [employer] 09/12/2032 [id number] / / Screw 5mm 3.5mm 45mm Ft Fx Ang Hex Head Implanted:Qty: 1 on 11/30/2022 by Felipe Garcia MD at [facility] Left: Tibia [employer] 10/26/2032 [id number] / / Screw 5mm 3.5mm 47.5mm Ft Slf-Tap Fx Ang Implanted:Qty: 1 on 11/30/2022 by Felipe Garcia MD at [facility] Left: Tibia [employer] 07/20/2032 [id number] / / Screw 5mm 3.5mm 50mm Ft Slf-Tap Fx Ang Implanted:Qty: 1 on 11/30/2022 by Felipe Garcia MD at [facility] Left: Tibia [employer] 07/06/2032 [id number] / / Screw 5mm 3.5mm 40mm Ft Slf-Tap Fx Ang Implanted:Qty: 1 on 11/30/2022 by Felipe Garcia MD at [facility] Left: Tibia [employer] 09/12/2032 [id number] / / Screw 5mm 3.5mm 60mm Ft Fx Ang Hex Head Implanted:Qty: 1 on 11/30/2022 by Felipe Garcia MD at [facility] Left: Tibia [employer] 12/24/2031 [id number] / / Explanted Type Area Cooker Loader Device Identifier Shelf Expiration Date Model / Serial / Lot Nail Explanted:Qty: 1 on 11/30/2022 by Felipe Garcia MD at [facility] Left: Tibia [employer] 09/02/2025 [id number] / / Screw 5mm 3.5mm 70mm Ft Slf-Tap Fx Ang Explanted:Qty: 1 on 11/30/2022 by Felipe Garcia MD at [facility] Left: Tibia Christiano [employer] 08/02/2032 [id number] / / Procedures Procedure Name Priority Date/Time Associated Diagnosis Comments BASIC METABOLIC PANEL (CALCIUM TOTAL) Routine 12/06/2022 1:09 AM GANG INVESTIGATOR Closed fracture of left tibia and fibula, initial encounter from Last 3 Months or Most Recently Relevant to Health Maintenance Results * (ABNORMAL) BASIC METABOLIC PANEL (CALCIUM TOTAL) (12/06/2022 1:09 AM [facility]) BUN 12 7 - 26 mg/dL 12/06/2022 [...] Lab Venipuncture / Unknown 12/06/2022 1:09 AM GANG INVESTIGATOR 12/06/2022 1:28 AM [facility] Caterina Lind MD LAB - CHEMISTRY ORDERABLES Fin al Result [facility] [address] [place] [address], [place] [phone] from Last 3 Months or Most Recently Relevant to Health Maintenance Insurance MEDICAID - [place] MEDICARE [facility] Care Teams Vault Custodian Relationship Specialty Start Date End Date Vickey Hernandez MD [address] [place] [address] PCP - General 08/04/19
--- OUTSIDE RECORDS SUMMARY | 2025-01-18 13:42 | XMS_ITS | Encounter Summary ---
Author Organization [facility] Address [address] [place] [address] Care Team Providers Care Chief Science Officer Name Role Phone Vickey Hernandez MD Primary [...] on filedocumented in this encounter Care Teams Chief Science Officer Relationship Specialty Start Date End Date Vickey Hernandez MD [address] [place] [address] PCP - General Internal Medicine 07/09/17 documented as of this encounter
--- OUTSIDE RECORDS SUMMARY | 2025-01-18 13:42 | XMS_ITS | Encounter Summary ---
Author Organization [facility] Address [address] [place] [address] Care Team Providers Care Gambling Floor Supervisor Name Role Phone Vickey Hernandez MD Primary Care Provider + Encounter Details Date Type Department Care Team (Late st Contact Info) Description 12/28/2019 Chart Note [facility] Radiation Therapy [address] [place] [address] [place] [address] [place] [address] Social History Tobacco Use Types [...] on filedocumented in this encounter Care Teams Gambling Floor Supervisor Relationship Specialty Start Date End Date Vickey Hernandez MD [address] [place] [address] PCP - General Internal Medicine 07/09/17 documented as of this encounter
--- OUTSIDE RECORDS SUMMARY | 2025-01-18 13:42 | XMS_ITS | Clinical Summary ---
Author Organization [facility] Address [address] [place] [address] Care Team Providers Care Digital Sales Executive Name Role Phone Vickey Hernandez MD Primary Care Provider [phone] Social History Tobacco Use Types Packs/Day Years [...] age to complete this topic Care Teams Digital Sales Executive Relationship Specialty Start Date End Date Vickey Hernandez MD PCP - General 01/06/17
--- OUTSIDE RECORDS SUMMARY | 2025-01-18 13:42 | XMS_ITS | Referral Summary ---
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 Gender Identity Not on file Sexual Orientation [...] Plan of Treatment Not on file Insurance [facility] MEDICARE [facility] Address: [address] [address] [place] [address] [facility] MEDICARE SUPPLEMENT MEDICARE [facility] Advance Directives For more information, please contact: [phone] * Full Code (Latest Code Status on [...] 10:52 PM 04/18/2023 2:18 PM Care Teams Credit Reporting Clerk Relationship Specialty Start Date End Date Vickey Hernandez MD [address] INTER[address] MEDICINE [place] [id number] PCP - General 03/20/14 Felipe Brand MD [address] [id number] [place] [address] Referring Physician General Surgery 05/02/23
--- OUTSIDE RECORDS SUMMARY | 2025-01-18 13:42 | XMS_ITS | Encounter Summary ---
Author Organization [facility] Address [address] [place] [address] Care Team Providers Care Computer Support Specialist Name Role Phone Vickey Hernandez MD Primary Care Provider + Reason for Referral * PET Scan (Routine) - Open Specialty Diagnoses / Procedures Referred By Contac t Referred To Contact Diagnoses Non-small cell cancer of right lung (CMS/HCC) Procedures PET TUMOR OR INFECTION IMG W CT SKB Juliocesar Zelaya MD [address] [address] Phone: tel: fax: Referral ID Status Reason Start Date Expiration Date Visits Re quested Visits Authorized [id number] Open 01/18/2025 02/18/2026 1 1 Reason for Visit * Reason Comments Cancer Follow Up Encounter Details Date Type Department Care Team (Late st Contact Info) Description 01/18/2025 10:15 AM CDT Office Visit [facility] Oncology and Hematology - [place] [facility] [address] [place] [address] Juliocesar Zelaya MD [address] [place] [address] Non-small cell cancer of right lung [...] B12 deficiency CURRENT TREATMENT Surveillance TREATMENT HISTORY [facility] April 2019 and June 02, 2019 Right [...] Primary documented in this encounter Care Teams Computer Support Specialist Relationship Specialty Start Date End Date Vickey Hernandez MD [address] [place] [address] PCP - General Internal Medicine 07/09/17 documented as of this encounter
--- OUTSIDE RECORDS SUMMARY | 2025-01-18 13:42 | XMS_ITS | Clinical Summary ---
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 Gender Identity Not on file Sexual Orientation [...] (2 - Td or Tdap) 11/29/2032 Insurance [employer] MEDICARE [facility] MEDICARE SUPPLEMENT MEDICARE [employer] [place] Advance Directives For more information, please contact: [phone] * Full Code (Latest Code Status on [...] 10:52 PM 04/18/2023 2:18 PM Care Teams Facility Manager Histology Relationship Specialty Start Date End Date Vickey Hernandez MD [address] [facility] [address] [place] [address] PCP - General 03/20/14 Felipe Brand MD [address] [facility] [id number] [place] [address] (work) Referring Physician General Surgery 05/02/23
--- NOTE | 2025-01-18 14:51 | ED_ITS ---
HPI - General Adult General Chief complaint: Shortness of Breath/Dyspnea Stated complaint: cant breathe Time Seen by Provider: 01/18/25 13:18 History of Present Illness HPI narrative: 64-year-old male with history of lung cancer in 2019 and recent pneumonia present to the emergency department for evaluation for worsening shortness of breath. Patient states he has routinely been on 2-3 L of oxygen by nasal cannula but did have follow-up with Dr. burton today and had worsening shortness of breath and was bumped up to 4 L. At time of evaluation patient is saturating 98% 3 L and is in no distress. Related Data Home Medications ?Medication ?Instructions ?Recorded ?Confirmed ?Last Taken ?Type lidocaine 5 % topical patch 1 patch topical DAILY 08/17/19 01/02/25 11/13/24 History mv-folic acid 200 mcg-D3 300 1 tablet PO DAILY 08/17/19 01/02/25 11/13/24 History unit-K2 20 [id number] tablet (Stages Men's Multi-Vitamin) omeprazole 20 mg capsule,delayed 20 mg PO BID 08/17/19 01/02/25 11/13/24 History release pregabalin 150 mg capsule (Lyrica) 150 mg PO BID 05/15/20 01/02/25 11/13/24 History ferrous sulfate 325 mg (65 mg 325 mg PO DAILY 01/28/23 01/02/25 11/13/24 History iron) tablet oxycodone 10 mg/0.5 mL oral 10 mg PO Q4H 10/13/23 01/02/25 11/13/24 History syringe (FOR ORAL USE ONLY) aspirin 81 mg tablet,delayed 81 mg PO DAILY 04/26/24 01/02/25 11/13/24 History release (Adult Low Dose Aspirin) vitamin B complex 1 tablet PO DAILY 04/26/24 01/02/25 11/13/24 History trazodone 50 mg tablet 100 mg PO QHS 11/14/24 01/02/25 11/12/24 History Allergies Allergy/AdvReac Type Severity Reaction Status Date / Time Penicillins Allergy Unknown Itching Verified 01/02/25 15:44 Review of Systems 2 Review of Systems: All systems reviewed & are unremarkable except as noted in HPI and below PMFSH Past Medical History Medical History BMI 26.0-26.9,adult Facial rash Impaired functional mobility, balance, gait, and endurance Facial droop Bowel perforation Crushing injury leg Encounter for Medicare annual wellness exam BMI 24.0-24.9, adult Hypotension Tibial fracture Absence seizure Borderline abnormal TFTs Vitamin B2 deficiency Vitamin B1 deficiency Cognitive changes Tremor Acute nonintractable headache Chronic fatigue Change in vision BMI 22.0-22.9, adult Back pain Cervicalgia BMI 32.0-32.9,adult NAVARRETE (dyspnea on exertion) BMI 31.0-31.9,adult Encounter for routine adult health examination with abnormal findings BMI 30.0-30.9,adult Hearing loss Myopia BMI 29.0-29.9,adult Encounter for preventive health examination Breast tenderness in male Vitamin D deficiency Squamous cell carcinoma BMI 25.0-25.9,adult Encounter for routine adult health examination with abnormal findings Tobacco abuse Shortness of Breath Hemoptysis DJD (degenerative joint disease) Hematuria GERD (gastroesophageal reflux disease) BMI 27.0-27.9,adult Encounter for routine adult health examination without abnormal findings COPD (chronic obstructive pulmonary disease) Follow up Personal history of nicotine dependence Hematoma Chronic low back pain Ataxia CTS (carpal tunnel syndrome) Vitamin B12 deficiency On terminal gauger drug therapy Iron deficiency anemia Hearing loss of both ears Surgical History Surgical History S/P pneumonectomy Previous back surgery x6 Hx of gastric bypass Family History Family History Father Hypertension Family history of heart disease in male family member before age 55 Family history of cardiovascular disease Mother Hypertension Family history of diabetes mellitus in first degree relative Family history of malignant neoplasm of brain Family history of heart disease in male family member before age 55 Family history of cardiovascular disease Other Diabetes mellitus Social History Social History Smoking packs per day: 1 Smoking cigarettes per day: 20.0 Years smoked: 45 Smoking pack-years: 45.00 Smoking status: Former smoker ( Quit 11/13/2024) Tobacco type: cigarettes Second hand tobacco smoke exposure: No Smoking end date: 02/02/20 Additional smoking assessment comments: smoking less than 1/2 pack currently Alcohol intake: never Substance use: current Substance use type: marijuana Other substance usage details: Gummies Last use: 11/13/24 Do You Feel Safe in your Home?: Yes Lack of Transportation: No Lack of Food: Sometimes True Current Housing: I Have Housing Concerned About Future Housing: YES Difficulty Paying Gas/Electric Bills: YES Difficulty Paying for Meds: No Currently Unemployed: No Education: High School Diploma/GED Difficulty w/ Childcare or Family Care: No Living arrangements: with family Occupation/Education: unemployed Gender identity (if verbalized by the patient): Male Spiritual care concerns: No Exam 2 Narrative: APPEARANCE: Well appearing, no pain, no distress, well-nourished. HEAD: normocephalic, atraumatic. EYES: PERRLA/EOMI, conjunctivae clear. NOSE: Normal no drainage EARS:TMS clear with good light reflex. THROAT: Pharynx clear, no exudate. NECK: Supple. No adenopathy, no masses. RESPIRATORY: Mild wheezing bilaterally. CARDIOVASCULAR: Regular rate and rhythm without murmurs rubs or gallops. ABDOMINAL: Soft, nontender, nondistended, normal bowel sounds MUSCULOSKELETAL: X for wheeze bilateral NEURO: Alert. Cranial nerves II through XII intact. Good gait. Good coordination SKIN: Warm, dry. Normal Color Course Vital Signs Vital signs: Vital Signs Temperature 98 F 01/18/25 11:28 Pulse Rate 76 01/18/25 11:28 Respiratory Rate 18 01/18/25 11:28 Blood Pressure 112/80 01/18/25 11:28 Pulse Oximetry 92 01/18/25 11:28 Oxygen Delivery Nasal Cannula 01/18/25 11:28 Oxygen Flow Rate 4 01/18/25 11:28 Temperature 98 F 01/18/25 11:28 Pulse Rate 89 01/18/25 18:59 Respiratory Rate 22 H 01/18/25 18:59 Blood Pressure 120/72 01/18/25 18:59 Pulse Oximetry 99 01/18/25 18:59 Oxygen Delivery Nasal Cannula 01/18/25 12:30 Oxygen Flow Rate 3 01/18/25 12:30 Medical Decision Making [facility] Narrative Medical decision making narrative: 64-year-old male presents emergency department for evaluation for increased exertional shortness of breath. Patient's CT was negative for pulmonary embolism but did show possible left-sided pneumonia. Patient was wheezing on initial exam but this was improved after his breathing treatment. Patient is afebrile with no leukocytosis hemoglobin of 12.5. No acute abnormalities on the patient's CMP. Patient was negative influenza RSV and for COVID. Patient was able to ambulate at his baseline with no hypoxia on 3 L. patient was offered admission for suspected left-sided pneumonia the patient strongly prefers to be discharged home. Patient was started on Z-Hernán and cefpodoxime. Patient was also provided nebulized albuterol refill for home. Patient was encouraged to return to the emergency department if he had a worsening symptoms and to have close follow-up with primary care. Differential Diagnosis Differential Diagnosis: COVID, RSV, influenza, pneumonia, COPD exacerbation Vital Signs Vital Signs: Vital Signs Temperature 98 F 01/18/25 11:28 Pulse Rate 76 01/18/25 11:28 Respiratory Rate 18 01/18/25 11:28 Blood Pressure 112/80 01/18/25 11:28 Pulse Oximetry 92 01/18/25 11:28 Oxygen Delivery Nasal Cannula 01/18/25 11:28 Oxygen Flow Rate 4 01/18/25 11:28 Temperature 98 F 01/18/25 11:28 Pulse Rate 89 01/18/25 18:59 Respiratory Rate 22 H 01/18/25 18:59 Blood Pressure 120/72 01/18/25 18:59 Pulse Oximetry 99 01/18/25 18:59 Oxygen Delivery Nasal Cannula 01/18/25 12:30 Oxygen Flow Rate 3 01/18/25 12:30 Lab Data Lab results reviewed: Yes I reviewed the patient's lab results. 01/18/25 12:33 01/18/25 12:33 Labs: Lab Results 01/18/25 01/18/25 Range/Units 12:33 14:58 WBC 6.7 (4.5-10.0) K/mm3 RBC 5.02 (4.6-6.20) M/mm3 Hgb 12.5 L (14.0-18.0) g/dL Hct 42.4 (42.0-52.0) % MCV 84.5 (80-100) fl MCH 24.9 L (26-34) pg MCHC 29.5 L (32-36) g/dl RDW 16.5 H (11.5-14.5) % Plt Count 302 (150-375) k/mm3 MPV 9.5 (7.4-10.4) fl Immature Gran % (Auto) 0.3 (0-0.5) % Neut % (Auto) 73.5 H (45.5-73.1) % Lymph % (Auto) 13.8 L (18.3-44.2) % [place] % (Auto) 7.2 (2.6-8.5) % Eos % (Auto) 4.6 H (0-4.4) % Baso % (Auto) 0.6 (0.2-1.2) % Lymph # (Auto) 0.92 (0.9-3.2) K/mm3 [place] # (Auto) 0.5 (0.1-0.6) K/mm3 Eos # (Auto) 0.3 (0-0.3) K/mm3 Baso # (Auto) 0.0 (0.0-0.1) K/mm3 Abs Immat Gran (auto) 0.02 (0.00-0.031) K/mm3 Absolute Neuts (auto) 4.9 (1.3-6.7) K/mm3 Absolute Nucleated RBC 0.000 (0.0-0.012) K/mm3 Band Neutrophils % Not Reportable Nucleated RBC % 0.0 (0.0-0.2) % Platelet Estimate Adequate (Adequate) Schistocytes None seen Sodium 139 (137-145) mmol/L Potassium 4.2 (3.4-5.0) mmol/L Chloride 100 (98-107) mmol/L Carbon Dioxide 33 H (22-30) mmol/L Anion Gap 6 (4-12) mmol/L BUN 18 (9-20) mg/dL Creatinine 0.99 (0.7-1.3) mg/dL Estim Creat Clear Calc 62 ml/min Estimated GFR > 60 (59 - ) Glucose 116 H (65-110) mg/dL Calcium 8.7 (8.4-10.2) mg/dL Total Bilirubin 0.4 (0.2-1.3) mg/dL AST 29 (17-59) U/L ALT 24 (6-50) U/L Alkaline Phosphatase 109 (38-126) U/L NT-Pro-B Natriuret Pep 79 (19.9-100) pg/mL Total Protein 8.0 (6.3-8.2) g/dL Albumin 3.8 (3.5-5.1) g/dL Influenza A (RT-PCR) Negative (Negative) Influenza B (RT-PCR) Negative (Negative) RSV (RT-PCR) Negative (Negative) SARS-CoV-2 RNA (RT-PCR) Negative (Negative) Imaging Data Radiologist's impression: Impressions Chest X-Ray 01/18/25 12:44 IMPRESSION: Elevation of the left hemidiaphragm with left-sided pleural effusion and adjacent compressive atelectasis. Chest CTA 01/18/25 17:32 IMPRESSION: 1. No pulmonary embolism. 2. Left basal pneumonia with minimal effusion. Multiple patchy opacities in the left upper lobe and lingula suggestive of infection. Follow-up advised. 3. Right renal cyst. 4. Nodule in the left apical area. [address] follow-up advised. 5. Bilateral healing rib fractures. Discharge Plan Discharge Clinical Impression: Pneumonia Patient Disposition: Home Condition: Stable Instructions: Antibiotic Form Additional Instructions: You were offered admission for possible pneumonia but you preferred to be discharged to home. Antibiotics as directed until completed. Nebulized albuterol for shortness of breath. Have close follow-up with your primary care physician. If you have any worsening symptoms then please call or return to the emergency department. Patient Language: Jamaican Prescriptions: New cefpodoxime 200 mg tablet 200 mg PO Q12H 7 Days Qty: 14 0RF Rx Instructions: must administer with a meal/food azithromycin 250 mg tablet See Rx Instructions .ROUTE .COMPLEX Qty: 6 0RF Rx Instructions: For 250 mg dose pack: take 500 mg today (day 1), then 250 mg for 4 days (days 2-5) albuterol sulfate 1.25 mg/3 mL solution for nebulization 1.25 mg inhalation Q4H Qty: 75 0RF No Action lidocaine 5 % adhesive patch,medicated 1 patch TOPICAL DAILY omeprazole 20 mg capsule,delayed release(DR/EC) 20 mg PO BID Stages Men's Multi-Vitamin 200 mcg-300 unit-20 mcg tablet 1 tablet PO DAILY pregabalin [Lyrica] 150 mg capsule 150 mg PO BID ferrous sulfate 325 mg (65 mg iron) tablet 325 mg PO DAILY oxycodone 10 mg/0.5 mL syringe 10 mg PO Q4H tizanidine 4 mg capsule 4 mg PO TID PRN (Reason: muscle spasticity) Qty: 30 0RF albuterol sulfate 90 mcg/actuation HFA aerosol inhaler See Rx Instructions .ROUTE .COMPLEX Qty: 8.5 1RF Dose Instruction: TAKE 1-2 PUFFS EVERY 4 HOURS NEEDED FOR SHORTNESS OF BREATH/WHEEZING. Rx Instructions: TAKE 1-2 PUFFS EVERY 4 HOURS NEEDED FOR SHORTNESS OF BREATH/WHEEZING. vitamin B complex Tablet 1 tablet PO DAILY aspirin [Adult Low Dose Aspirin] 81 mg tablet,delayed release (DR/EC) 81 mg PO DAILY midodrine 2.5 mg tablet 2.5 mg PO BID Qty: 180 1RF Rx Instructions: do not give last dose of day after 6PM or within 4 hrs of bedtime trazodone 50 mg tablet 100 mg PO QHS paroxetine HCl 40 mg tablet See Rx Instructions .ROUTE .COMPLEX Qty: 90 1RF Dose Instruction: TAKE 1 TABLET BY MOUTH EVERY DAY Rx Instructions: TAKE 1 TABLET BY MOUTH EVERY DAY cyanocobalamin (vitamin B-12) 1,000 mcg/mL solution See Rx Instructions .ROUTE .COMPLEX Qty: 3 1RF Dose Instruction: INJECT 1ML INTO MUSCLE ONCE MONTHLY Rx Instructions: INJECT 1ML INTO MUSCLE ONCE MONTHLY BD Luer-Collin Syringe 3 mL 25 gauge x 1 syringe See Rx Instructions .ROUTE .COMPLEX Qty: 3 3RF Dose Instruction: FOR FOR ONCE MONTHLY IM INJECTIONS OF VITAMIIN B12 DIRECTED Rx Instructions: FOR ONCE MONTHLY IM INJECTIONS OF VITAMIIN B12 DIRECTED Trelegy Ellipta 100-62.5-25 mcg blister with device 1 inh inhalation DAILY Qty: 60 3RF bupropion HCl 300 mg tablet extended release 24 hr See Rx Instructions .ROUTE .COMPLEX Qty: 90 0RF Dose Instruction: TAKE 1 TABLET BY MOUTH EVERY MORNING Rx Instructions: TAKE 1 TABLET BY MOUTH EVERY MORNING lorazepam 0.5 mg tablet 0.5 mg PO BID PRN (Reason: anxiety) Qty: 60 1RF levetiracetam 500 mg tablet extended release 24 hr 1,500 mg PO QHS Qty: 300 2RF Follow-up/Referrals: Vickey Hernandez MD [Primary Care Provider] -
[2025-01-18] MEDS: ALBUTEROL SULFATE NEB 2.5 MG/3 ML INH 10 MG INHALATION (15:11)
[2025-01-18 15:40] LABS: Influenza A QL RT-PCR Negative (Negative); Influenza B QL RT-PCR Negative (Negative); RSV RNA, RT-PCR Negative (Negative); SARS-CoV-2 RNA PCR Negative (Negative)
[2025-01-18 16:12] LABS: NT Pro B Type Natriuretic Pept 79 pg/mL (19.9-100)
--- NOTE | 2025-01-18 18:11 | PCRCNOTE ---
TX done by RT Thomas, but was not closed out.
== END 2025-01-18 19:01 | disposition home or self-care (01) ==
PROVIDERS: Emergency Provider Emergency Medicine; PCP Internal Medicine
DX: J18.9 Pneumonia, unspecified organism (principal); Z85.118 Personal history of other malignant neoplasm of bronchus and lung; Z99.81 Dependence on supplemental oxygen; E51.9 Thiamine deficiency, unspecified; E53.0 Riboflavin deficiency; E55.9 Vitamin D deficiency, unspecified; E53.8 Deficiency of other specified B group vitamins; K21.9 Gastro-esophageal reflux disease without esophagitis; Z87.891 Personal history of nicotine dependence; Z20.822 Contact with and (suspected) exposure to COVID-19
CPT/HCPCS: 36415; 71046; 71275; 80053; 83880; 85025; 87637; 93005; 94640; 99284; Q9967

== ENCOUNTER 2025-01-20 11:58 | Inpatient (IN) | payer MEDICARE, MEDICAID, SELFPAY ==
[2025-01-20] VITALS (13 sets, daily range): BP systolic 117–125; BP diastolic 68–78; PULSE 84–124; RESP 15–20; TEMP 36.5–36.8; O2SAT 86–98; BMI 21.7
--- NOTE | ~2025-01-20 | XR_ITS ---
EXAMINATION: XR chest 1V portable DATE: 01/20/2025 12:20 INDICATION: Shortness of breath and hypoxia. Recent pneumonia. TECHNIQUE: frontal view of the chest was obtained. COMPARISON: Chest radiograph dated 01/18/2025 FINDINGS: Again seen is elevation of the left hemidiaphragm. Slight interval progression in airspace opacities in the bilateral mid and lower lung zones consistent with worsening pneumonia. No pneumothorax or def initive pleural effusion. Surgical clips project over the right apex. Heart size is normal. Spinal st imulator leads project over the central canal of the midthoracic spine. IMPRESSION: 1. Increasing opacities in bilateral mid and lower lung zones consistent with worsening pneumonia. 2. Unchanged elevation the left hemidiaphragm. Reviewed, dictated and finalized at location A. IMPRESSION: 1. Increasing opacities in bilateral mid and lower lung zones consistent with w orsening pneumonia. 2. Unchanged elevation the left hemidiaphragm.
--- NOTE | ~2025-01-20 | XR_ITS ---
EXAMINATION: XR chest 1V portable DATE: 01/25/2025 10:26 INDICATION: Pneumonia TECHNIQUE: frontal view of the chest was obtained. COMPARISON: Chest radiograph dated 01/20/[address] dated 01/18/2025 FINDINGS: Emphysema and mild pleural parenchymal scarring at the bilateral apices. There are surgical clips at the right apex. Additional surgical clips and suture line at the right hilum corresponding to a right middle lobectomy better appreciated on prior CT. Unchanged elevation the left hemidiaphragm with con solidation in the left infrahilar region. More patchy reticulonodular opacities in the lateral left l ower lung zone. Subtle airspace opacity in the right midlung zone likely combination of pulmonary vas cularity and a right lower lobe nodule prior CT which is suspicious for malignancy. No pleural effusi on or pneumothorax. Heart size is normal. Suture line in the epigastric region. Spinal stimulator raisa ds project over the central canal the mid thoracic spine with distal tip at the level of T7. Visualiz ed bones and soft tissues are unremarkable. IMPRESSION: 1. Persistent consolidation and reticular nodular opacities left lower lung zone consistent with pneu monia. 2. Subtle airspace process in the perihilar right mid lung zone which appears to correspond to 1.7 cm right lower lobe nodule on prior CT which is concerning for malignancy. 3. Mild emphysema better appreciated on prior CT. Reviewed, dictated and finalized at location A. IMPRESSION: 1. Persistent consolidation and reticular nodular opacities left lower lung zon e consistent with pneumonia. 2. Subtle airspace process in the perihilar right mid lung zone which appears t o correspond to 1.7 cm right lower lobe nodule on prior CT which is concerning for malignancy. 3. Mild emphysema better appreciated on prior CT.
--- NOTE | 2025-01-20 12:06 | ECG_ITS ---
Test Date: 2025-01-20 12:09:11 Measurements Intervals [place] Rate: 108 P: 69 NC: 156 QRS: -15 QRSD: 98 T: 55 QT: 305 QTc: 410 Interpretive Statements SINUS TACHYCARDIA POSSIBLE ANTERIOR MYOCARDIAL INFARCTION , PROBABLY OLD BASELINE ARTIFACT- I, II, III, AVR, AVL, AVF, V1-V6 ABNORMAL ECG Compared to ECG 01/18/2025 12:14:33 HEART RATE HAS INCREASED Electronically Signed On 01-20-2025 14:27:59 CDT by Victor Manuel Mackay D.O.
[2025-01-20 12:25] LABS: Basophils Percent Auto 0.3 % (0.2-1.2); Eosinophils Absolute Auto 0.4 K/mm3 (0-0.3); Hematocrit 42.3 % (42.0-52.0); Immature Granulocyte Absolute 0.05 K/mm3 (0.00-0.031); Immature Granulocyte Percent A 0.4 % (0-0.5); Lymphocytes Absolute Auto 2.02 K/mm3 (0.9-3.2); Lymphocytes Percent Auto 17.2 % (18.3-44.2); Mean Corpuscular HGB Conc 30.7 g/dl (32-36); Mean Corpuscular Hemoglobin 25.2 pg (26-34); Mean Platelet Volume 9.1 fl (7.4-10.4); Monocytes Absolute Auto 0.9 K/mm3 (0.1-0.6); Monocytes Percent Auto 7.6 % (2.6-8.5); Neutrophils Absolute Auto 8.4 K/mm3 (1.3-6.7); Neutrophils Percent Auto 71.5 % (45.5-73.1); Platelet Count Result 347 k/mm3 (150-375); Red Blood Count 5.16 M/mm3 (4.6-6.20); Red Cell Distribution Width 16.9 % (11.5-14.5); White Blood Count 11.7 K/mm3 (4.5-10.0)
[2025-01-20 12:37] LABS: Alanine Aminotransferase 21 U/L (6-50); Alkaline Phosphatase 123 U/L (38-126); Anion Gap 9 mmol/L (4-12); Aspartate Amino Transferase 30 U/L (17-59); Bilirubin,Total 0.4 mg/dL (0.2-1.3); Blood Urea Nitrogen 15 mg/dL (9-20); Calcium 9.2 mg/dL (8.4-10.2); Carbon Dioxide 30 mmol/L (22-30); Chloride 102 mmol/L (98-107); Estimated CRCL calculation 78 ml/min; Estimated Glomerular Filt Rate > 60; Glucose 104 mg/dL (65-110); Potassium 4.1 mmol/L (3.4-5.0); Sodium 141 mmol/L (137-145)
--- OUTSIDE RECORDS SUMMARY | 2025-01-20 12:57 | XMS_ITS ---
Author Organization [facility] Address [id number] [place] [address] [address] [place] [address] Care Team Providers Care Design Specialist Name Role Phone Wayne Chantel Jeni [phone] REASON FOR VISIT meds- FB25 Encounters Encounter Location Date Provider Diagnosis [facility] [id number] [place] [address] [address] [place] [address] 01/18/2025 Chantel Black Plan Of Treatment No Information Progress Notes * MARLEE SrinivasálvaroeDOB:1960 (64 yo M)Acc No.[id number]:01/18/2025 Patient: Kiran VILLAFANA Appointment Provider: Jabari Black NP :1960 A ge:64 Y S ex:Male Date:01/18/2025 Address:[address] [place], [place] [id number] Subjective: * Chief Complaints: * 1 . meds- FB25. * Medical History: Objective: * Vitals: Assessment: Plan: * Treatment: * Billing Information: * Visit Code: * Procedure Codes: * Electronic signature of Fran Black DNP/NELL on 01/20/2025 at 12:57 PM CDT Sign off status: Pending * Appointment Provider: Jabari Black NP Date: 0 01/18/2025 Generated for Printing/Faxing/eTransmitting on: 0 01/20/2025 12:57 PM CDT
--- OUTSIDE RECORDS SUMMARY | 2025-01-20 12:57 | XMS_ITS | Patient Health Record ---
Author Organization [facility] Address [address] [place] [address] Care Team Providers Care De Icer Finisher Name Role Phone Tran Roberts Unavailable [phone] Chantel Black Unavailable [phone] Armando Joss Unavailable [phone] Allergies Allergen (clinical drug ingredient) Drug/Non Drug [...] SLEEP Oral for 90 Days Unknown Nystatin 139019 UNIT/ML TAKE 5 ML (500,0 00 UNITS [...] al every 4 hours for 30 days 01/18/2025 Active Problems Problem Type SNOMED Code ICD Code Onset Dates Problem Status W/U Status Risk Notes Problem Amnesia (60806531) Other amnesia (R41.3) Active confirmed Problem High risk drug monitoring status (727365295) nursing home (current) use of opiate analgesic (Z79.891) Active confirmed Problem History of bariatric surgical procedure (340761280) Bariatric surgery status (Z98.84) Active confirmed Problem Lumbar spondylosis (192852938) Lumbar spondylosis (M47.816) Active confirmed Problem Leg length discrepancy (417863953) Leg length discrepancy (M21.70) Active confirmed Problem Hypercholesterolemia (18361857) Hypercholesterolemia (E78.00) Active confirmed Problem Lumbar radiculopathy (664911670) Lumbar radiculopathy (M54.16) Active confirmed Problem Lumbar post-laminectomy syndrome (824377966) Lumbar postlaminectomy syndrome (M96.1) Active confirmed Problem Sacroiliitis (94407203) Sacroiliitis (M46.1) Active confirmed Problem Neck pain (98077790) Cervical sp ine pain (M54.2) Active confirmed Problem Low back pain (256854037) Low back pain (M54.50) Active confirmed Problem Postherpetic neuralgia (9772980) Postherpetic neuralgia (B02.29) Active confirmed Problem COPD - Chronic obstructive pulmonary disease (47089449) COPD (chronic obstructive pulmonary disease) (J44.9) Active confirmed Vital Signs Heart Rate 82 /min 11/09/2024 Respiratory Rate 16 /min 10/12/2024 Height-cm 175.26 cm 11/09/2024 Blood pressure diastolic 88 mm Hg 11/09/2024 Weight-kg 74.39 kg 11/09/2024 Height 5ft 9in in 11/09/2024 Blood pressure systolic 131 mm Hg 11/09/2024 Weight 164 lbs 11/09/2024 BMI 24.22 kg/m2 11/09/2024 Encounters Encounter Location Date Provider Diagnosis [facility] [address] [place] [address] [address] [place] [address] 02/24/2024 Tran Roberts [facility] [address] [place] [address] [address] [place] [address] 03/23/2024 Chantel Black [facility] [address] [place] [address] [address] [place] [address] 04/24/2024 Chantel Black [facility] [address] [place] [address] [address] [place] [address] 01/18/2025 Chantel Black [facility] [address] [place] [address] [address] [place] [address] 05/22/2024 Chantel Black Postherpetic neuralgia B02.29 ; Low back pain M54.50 ; Other amnesia R41.3 ; Bariatric surgery status Z98.84 and ad terminal makeup operator use of drug Z79.899 [facility] [address] [place] [address] [address] [place] [address] 06/19/2024 Chantel Black Low back pain M54.50 ; Other amnesia R41.3 ; Postherpetic neuralgia B02.29 and ad terminal makeup operator (current) use of opiate analgesic Z79.891 [facility] [address] [place] [address] [address] [place] [address] 07/17/2024 Chantel Black Low back pain M54.50 ; Other amnesia R41.3 ; Postherpetic neuralgia B02.29 and ad terminal makeup operator use of drug Z79.899 [facility] [address] [place] [address] [address] [place] [address] 08/14/2024 Chantel Black Other amnesia R41.3 ; Low back pain M54.50 ; Postherpetic neuralgia B02.29 ; Bariatric surgery status Z98.84 and nursing home (current) use of opiate analgesic Z79.891 [facility] [address] [place] [address] [address] [place] [address] 09/12/2024 Joss Graynberg Other amnesia R41.3 ; Postherpetic neuralgia B02.29 ; Low back pain M54.50 ; Bariatric surgery status Z98.84 ; nursing home (current) use of opiate analgesic Z79.891 ; [...] fracture S32.000A and Thoracic compression fracture S22.000A [facility] [address] [place] [address] [address] [place] [address] 10/12/2024 Joss Graynberg Low back pain M54.50 ; Lumbar spondylosis [...] and TIA (transient ischemic attack) G45.9 DME [facility] [address] [facility] [address] [place] [address] 10/12/2024 Joss Roberts Low back pain M54.50 and Lumbar radiculopathy M54.16 [facility] [address] [place] [address] [address] [place] [address] 11/09/2024 Jossanton Roberts Postherpetic neuralg ia B02.29 ; Low back [...] R41.3 ; Bariatric surgery status Z98.84 and nursing home (current) use of opiate analgesic Z79.891 [facility] [address] [place] [address] [address] [place] [address] 05/22/2024 Tran Roberts [facility] [address] [place] [address] [address] [place] [address] 06/19/2024 Tran Roberts [facility] [address] [place] [address] [address] [place] [address] 07/17/2024 Tran Roberts [facility] [address] [place] [address] [address] [place] [address] 08/14/2024 Tran Roberts [facility] [address] [place] [address] [address] [place] [address] 09/12/2024 Joss Roberts [facility] [address] [place] [address] [address] [place] [address] 10/12/2024 Joss Roberts [facility] [address] [facility] [address] [place] [address] 11/09/2024 Joss Armando [facility] [address] [facility] [address] [place] [address] 01/18/2025 Tran Roberts Assessments Encounter Date Diagnosis (ICD Code) [...] Bariatric surgery status (ICD-10 - Z98.84) 06/19/2024 ad terminal makeup operator (current) use of opiate analgesic (ICD-10 - Z79.891) 08/14/2024 Bariatric surgery status (ICD-10 - Z98.84) 07/17/2024 ad terminal makeup operator use of erendira g (ICD-10 - Z79.899) 11/09/2024 Leg length discrepan cy (ICD-10 - M21.70) 10/12/2024 Lumbar radiculopathy (ICD-10 - M54.16) 10/12/2024 Lumbar postlaminecto my syndrome (ICD-10 - M96.1) 11/09/2024 Lumbar radiculopathy (ICD-10 - M54.16) 08/14/2024 nursing home (current) use of opiate analgesic (ICD-10 - Z79.891) 05/22/2024 ad terminal makeup operator use of erendira g (ICD-10 - Z79.899) 09/12/2024 Bariatric surgery status (ICD-10 - Z98.84) 09/12/2024 nursing home (current) use of opiate analgesic (ICD-10 - [...] ische antoine attack) (ICD-10 - G45.9) 11/09/2024 nursing home (current) use of opiate analgesic (ICD-10 - [...] took positive delivery today of TLSO brace, ScramblerMail 456 code 0456. Full instructions were given [...] Date Coverage End Date Medicare of [place] J5 [address] [address] [place] [address] [id number] Kiran Smith Self - patient is the insured 1 [facility] [address] [place] [address] [id number] PLAN G Kiran Smith Self - patient is the insured Medical (General) History Medical History History ICD Code Lung cancer Depression TIA Post herpetic neuralgia Surgical History Surgery Date(Month/Year) Gastric bypass ORIF left leg right middle lobectomy Hospitalization History Reason Date(Month/Year) no hospitalization since prior visit
--- OUTSIDE RECORDS SUMMARY | 2025-01-20 12:57 | XMS_ITS | Encounter Summary ---
Author Organization [facility] [employer] [facility] Address [address] [place] [address] Care Team Providers Care Elevator Worker Name Role Phone Vickey Hernandez MD Primary Care Provider + Encounter Details Date Type Department Care Team (Late st Contact Info) Description 01/19/2025 Orders Only [facility] Oncology and Hematology - [place] [address] [facility] [address] [place] [address] Juliocesar Zelaya MD [address] [facility] [address] [place] [address] Social History Tobacco Use Types Packs/Day Years [...] on file documented as of this encounter Procedures Procedure Name Priority Date/Time Associated Diagnosis Comments COMPREHENSIVE METABOLIC PANEL Routine 01/18/2025 11:39 AM CDT documented in this encounter Results * COMPREHENSIVE METABOLIC PANEL (01/18/2025 11:39 AM CDT) Blood us Juliocesar Zelaya MD CHEMISTRY ORDERABLES Final Resu lt documented in this encounter Visit Diagnoses Not on filedocumented in this encounter Care Teams Elevator Worker Relationship Specialty Start Date End Date Vickey Hernandez MD [address] [place] [address] PCP - General Internal Medicine 07/09/17 documented as of this encounter
--- OUTSIDE RECORDS SUMMARY | 2025-01-20 12:57 | XMS_ITS | Clinical Summary ---
Author Organization [facility] Address [address] [facility] [address] [place] [address] Care Team Providers Care National Coverage Specialist Name Role Phone Vickey Hernandez MD Primary Care Provider [phone] Source Comments [facility],non-owned Affiliates and Associated Physician Practices is amultiple site organization consisting of ambulatory clinics and hospital sitesin [place], [place], [place] and [place]. This disclosure is being madepursuant to the Care Everywhere program and may not contain all information available regarding this patient. Last updated 18.[facility] Allergies No known active allergies Medications * [...] and heating? Not hard at all 12/03/2022 [facility] of Occupat ional Health - Occupational Stress [...] place to sleep or slept in a intermediate (including now)? No 12/03/2022 Sex and Gender Information Value Date Recorded Sex Assigned at Not on file Legal Sex Male 9:21 AM CDT Gender Identity Not on file Sexual Orientation Not on file Last Filed Vital Signs Vital Sign Reading Time Taken Comments Blood Pressure 142/81 12/06/2022 9:17 AM LICENSED PHYSICAL THERAPY ASSISTANT Pulse 96 12/06/2022 9:17 AM LICENSED PHYSICAL THERAPY ASSISTANT Temperature 37 C (98.6 F) 12/06/2022 7:57 AM LICENSED PHYSICAL THERAPY ASSISTANT Respiratory Rate 18 12/06/2022 10:29 AM LICENSED PHYSICAL THERAPY ASSISTANT Oxygen Saturation 94% 12/06/2022 10:29 AM LICENSED PHYSICAL THERAPY ASSISTANT Inhaled Oxygen Concentration - - Weight 77.1 kg (170 lb) 11/29/2022 2:06 PM LICENSED PHYSICAL THERAPY ASSISTANT Height 172.7 cm (5' 8 ) 11/29/2022 2:06 PM LICENSED PHYSICAL THERAPY ASSISTANT Body Mass Index 25.85 11/29/2022 2:06 PM LICENSED PHYSICAL THERAPY ASSISTANT Plan of Treatment Health Maintenance Due Date [...] this topic Medical Devices Implanted Type Area Building Specialist Device Identifier Shelf Expiration Date Model / Serial / Lot Screw 4mm 5mm 60mm .5 Thrd Rvrs Cut Flut Implanted:Qty: 1 on 11/30/2022 by Felipe Garcia MD at [facility] Left: Tibia [employer] [id number] / / Screw 4mm 5mm 80mm .5 Thrd Rvrs Cut Flut Implanted:Qty: 1 on 11/30/2022 by Felipe Garcia MD at [facility] Left: Tibia [employer] [id number] / / Nail Implanted:Qty: 1 on 11/30/2022 by Felipe Garcia MD at [facility] Left: Tibia [employer] 06/03/2029 [id number] / / Screw 5mm 3.5mm 40mm Ft Slf-Tap Fx Ang Implanted:Qty: 1 on 11/30/2022 by Felipe Garcia MD at [facility] Left: Tibia [employer] 09/12/2032 [id number] / / Screw 5mm 3.5mm 45mm Ft Fx Ang Hex Head Implanted:Qty: 1 on 11/30/2022 by Felipe Garcia MD at [facility] Left: Tibia [employer] 10/26/2032 [id number] / / Screw 5mm 3.5mm 47.5mm Ft Slf-Tap Fx Ang Implanted:Qty: 1 on 11/30/2022 by Felipe Garcia MD at [facility] Left: [employer]ia [employer] 07/20/2032 [id number] / / Screw 5mm 3.5mm 50mm Ft Slf-Tap Fx Ang Implanted:Qty: 1 on 11/30/2022 by Felipe Garcia MD at [facility] Left: Tibia [employer] 07/06/2032 [id number] / / Screw 5mm 3.5mm 40mm Ft Slf-Tap Fx Ang Implanted:Qty: 1 on 11/30/2022 by Felipe Garcia MD at [facility] Left: [employer] 09/12/2032 [id number] / / Screw 5mm 3.5mm 60mm Ft Fx Ang Hex Head Implanted:Qty: 1 on 11/30/2022 by Felipe Garcia MD at [facility] Left: Tibia [employer] 12/24/2031 [id number] / / Explanted Type Area Building Specialist Device Identifier Shelf Expiration Date Model / Serial / Lot Nail Explanted:Qty: 1 on 11/30/2022 by Felipe Garcia MD at [facility] Left: Tibia [employer] 09/02/2025 [id number] / / Screw 5mm 3.5mm 70mm Ft Slf-Tap Fx Ang Explanted:Qty: 1 on 11/30/2022 by Felipe Garcia MD at [facility] Left: Tibia [employer] 08/02/2032 [id number] / / Procedures Procedure Name Priority Date/Time Associated Diagnosis Comments BASIC METABOLIC PANEL (CALCIUM TOTAL) Routine 12/06/2022 1:09 AM LICENSED PHYSICAL THERAPY ASSISTANT Closed fracture of left tibia and fibula, initial encounter from Last 3 Months or Most Recently Relevant to Health Maintenance Results * (ABNORMAL) BASIC METABOLIC PANEL (CALCIUM TOTAL) (12/06/2022 1:09 AM [facility]) BUN 12 7 - 26 mg/dL 12/06/2022 2:03 AM [facility] Creatinine 0.88 0.71 - 1.16 mg/dL 12/06/2022 2:03 AM [facility] Sodium 141 136 - 145 mmol/L 12/06/2022 2:03 AM [facility] Potassium 4.0 3.5 - 4.5 mmol/L 12/06/2022 2:03 AM [facility] Chloride 106 98 - 107 mmol/L 12/06/2022 2:03 AM [facility] CO2 27 22 - 29 mmol/L 12/06/2022 2:03 AM [facility] Glucose 88 70 - 115 mg/dL 12/06/2022 2:03 AM [facility] Calcium 7.6(L) 8.4 - 10.2 mg/dL 12/06/2022 2:03 AM [facility] Anion Gap 12 8 - 18 12/06/2022 2:03 AM [facility] BUN/Creatinine Ratio 14 7 - 23 12/06/2022 2:03 AM [facility] Osmolality Calculated 291 270 - 300 mOsm/kg 12/06/2022 2:03 AM [facility] eGFR by CKD-EPI >90 >=90 mL/min/1.7 3 m2 12/06/2022 2:03 AM [facility] Blood BLOOD SPECIMEN / Unknown Lab Venipuncture / Unknown 12/06/2022 1:09 AM LICENSED PHYSICAL THERAPY ASSISTANT 12/06/2022 1:28 AM [facility] Caterina Lind MD LAB - CHEMISTRY ORDERABLES Fin al Result [facility] [address] [place] [address], [place] [phone] from Last 3 Months or Most Recently Relevant to Health Maintenance Insurance MEDICAID - [place] MEDICARE [facility] Care Teams National Coverage Specialist Relationship Specialty Start Date End Date Vickey Hernandez MD [address] [place] [address] PCP - General 08/04/19
--- OUTSIDE RECORDS SUMMARY | 2025-01-20 12:57 | XMS_ITS ---
Author Organization [facility] Address [address] [place] [address] [address] [place] [address] Care Team Providers Care Loan Administrator Name Role Phone Tran Roberts [phone] Medications Medication SIG (Take, Route, Fr equency, Duration) Notes Start Date End Date Status oxyCODONE HCl 5 MG/5ML 10 milliliters Or al every 4 hours for 30 days 01/18/2025 Active Encounters Encounter Location Date Provider Diagnosis [facility] [address] [facility] [address] [place] [address] 01/18/2025 Tran Roberts Plan Of Treatment Medication Medication Name Sig Start Date Stop Date Notes oxyCODONE HCl 5 MG/5ML 10 milliliters Or al every 4 hours for 30 days 01/18/2025 Progress Notes * Manuel WHALENeDOB:1960 (64 yo M)Acc No.[id number]:01/18/2025 Patient: Srinivas VILLAFANAmie :1960 A ge:64 Y S ex:Male Address:[address] [place] [address], [address] * Refills Refill oxyCODONE HCl Solution, 5 MG/5ML, 1800 Milliliter, 10 milliliters Oral, every 4 hours, 30 days, Refills=0 * true * Date: Generated for Printi ng/Faxing/eTransmitting on: 0 01/20/2025 12:57 PM CDT
--- OUTSIDE RECORDS SUMMARY | 2025-01-20 12:57 | XMS_ITS | Clinical Summary ---
Author Organization [facility] Address [address] [address] [place] [address] Phone Care Team Providers Care Solder Cream Maker Name Role Phone Vickey Hernandez MD [...] Pain. 0 Active naloxone (NARCAN) 4 mg/spray University, Non-Aerosol EMERGENCY USE ONLY: Administer 1 spray [...] Encounters Date Type Department Care Team Description 01/19/2025 Orders Only [facility] Oncology and Hematology - [place] [address] [place] [address] Juliocesar Zelaya MD 01/18/2025 10:15 AM CDT Office Visit [facility] Oncology and Hematology [facility] [address] [place] [address] Juliocesar Zelaya MD Non-small cell cancer of right lung (CMS/HCC) (Primary Dx) 01/16/2025 External Device Data STL ABSTRACTION Provider, Abstract 01/12/2025 Telephone [facility] Oncology and Hematology [facility] [address] [place] [address] Juliocesar Zelaya MD Missed Call 01/02/2025 External [...] series) 2034 Medical Devices Implanted Type Area Finance Mgr Device Identifier Shelf Expiration Date Model / Serial / Lot Clip Ligating Horizon Lg Ti [id number] - Csc - [id number] Implanted:Qty: 1 on 01/23/2020 by Oscar Michel MD at [facility] Clip Right: Chest TELEFLEX- WECK CLOSURE SYS 10/09/2023 [id number] / / [id number] Clip Ligating Horizon Med Ti [id number] - Csc - [id number] Implanted:Qty: 4 on 01/23/2020 by Oscar Michel MD at [facility] Clip Right: Chest TELEFLEX- WECK CLOSURE SYS 06/19/2024 [id number] / / [id number] Sealant Fibrin Evicel 5ml 3905 - [id number] Implanted:Qty: 1 on 01/23/2020 by Oscar Michel MD at [facility] Other Right: Chest [employer] 06/03/2021 3905 / [id number] / [id number] Adh Bioglue 10ml [id number] - [id number] Implanted:Qty: 1 on 01/23/2020 by Oscar Michel MD at [facility] Tissue Right: Chest [employer] 07/09/2021 [id number] S / / [id number] [place] Ptfe Thck 2.8mmx2.5x2.5c m [id number] - [id number] Implanted:Qty: 1 on 01/23/2020 by Oscar Michel MD at [facility] Tissue Right: Chest CR BARD[employer] 10/31/2021 [id number] / / [id number] Hardware Back Explanted Type Area Finance Mgr Device Identifier Shelf Expiration Date Model / Serial / Lot Hemostatic Surgicel 4x8in 1952 - [id number] Explanted:Qty: 1 on 01/23/2020 at [facility] Hemostatic Right: Chest [employer] 06/03/20221951 / / [id number] Procedures Procedure Name Priority Date/Time Associated Diagnosis Comments COMPREHENSIVE METABOLIC PANEL Routine 01/18/2025 11:39 AM CDT from Last 3 Months Results * COMPREHENSIVE METABOLIC PANEL (01/18/2025 11:39 AM CDT) Blood Juliocesar Zelaya MD CHEMISTRY ORDERABLES Final Resu lt from Last 3 Months Insurance RX [facility] Commercial MEDICAID [place] MEDICARE PART A AND B [facility] SUPP MEDICARE PART A AND B BS SUPP MED[place]ID [place] Advance Directives For more information, please contact: [phone] * Full Code (Latest Code Status on File) Date Activated Date Inactivated Comments 01/23/2020 8:52 AM 01/27/2020 2:16 PM * Full Code Date Activated Date Inactivated Comments 01/23/2020 5:22 AM 01/23/2020 8:52 AM * Full Code Date Activated Date Inactivated Comments 07/08/2017 6:32 PM 07/09/2017 5:38 PM * Full Code Date Activated Date Inactivated Comments 07/08/2017 3:18 PM 07/08/2017 3:50 PM Care Teams Solder Cream Maker Relationship Specialty Start Date End Date Vickey Hernandez MD [address] [place] [address] PCP - General Internal Medicine 07/09/17
--- OUTSIDE RECORDS SUMMARY | 2025-01-20 12:58 | XMS_ITS | Clinical Summary ---
Author Organization [facility] Address [address] [place] [address] Care Team Providers Care Pilot Fuel Engineer Name Role Phone Vickey Hernandez MD Primary Care Provider [phone] Felipe Brand MD Unavailable [phone] Allergies Active Allergy Reactions Criticality Noted [...] on file Legal Sex Male 12:27 AM PAN WASHER HAND Gender Identity Not on file Sexual Orientation [...] Tdap) 11/29/2032 Insurance [facility] MEDICARE [facility] MEDICARE SUPPLEMENT MEDICARE [employer] Advance Directives For more information, please contact: [phone] * Full Code (Latest Code Status on [...] 10:52 PM 04/18/2023 2:18 PM Care Teams Pilot Fuel Engineer Relationship Specialty Start Date End Date Vickey Hernandez MD [address] [email or web address] [address] [place] [address] PCP - General 03/20/14 Felipe Brand MD [address] [facility] [phone] [place] [address] (work) Referring Physician General Surgery 05/02/23
--- OUTSIDE RECORDS SUMMARY | 2025-01-20 12:58 | XMS_ITS | Referral Summary ---
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 Gender Identity Not on file Sexual [...] Plan of Treatment Not on file Insurance [facility] MEDICARE [facility] Address: [address] [address] [place] [address] [facility] MEDICARE SUPPLEMENT MEDICARE [facility] Advance Directives For more information, please contact: [phone] * Full Code (Latest Code Status on [...] 10:52 PM 04/18/2023 2:18 PM Care Teams Ecological Economist Relationship Specialty Start Date End Date Vickey Hernandez MD [address] [place] [address] [place] [id number] PCP - General 03/20/14 Felipe Brand MD [address] [facility] [phone] [place] [address] Referring Physician General Surgery 05/02/23
--- OUTSIDE RECORDS SUMMARY | 2025-01-20 12:58 | XMS_ITS | Clinical Summary ---
Author Organization [facility] Address [address] [place] [address] Care Team Providers Care Planning Manager Name Role Phone Vickey Hernandez MD Primary Care Provider [phone] Social History Tobacco Use Types Packs/Day Years [...] age to complete this topic Care Teams Planning Manager Relationship Specialty Start Date End Date Vickey Hernandez MD PCP - General 01/06/17
--- OUTSIDE RECORDS SUMMARY | 2025-01-20 12:58 | XMS_ITS | Encounter Summary ---
[facility] Organization [facility] Address [address] [place] [address] Care Team Providers Care Deboning Team Leader Name Role Phone Vickey Hernandez MD Primary Care Provider + Encounter Details Date Type Department Care Team (Late st Contact Info) Description 12/28/2019 Chart Note [facility] [address] [place] [address] [place] [address] [place] [address] Social History Tobacco Use Types [...] on filedocumented in this encounter Care Teams Deboning Team Leader Relationship Specialty Start Date End Date Vickey Hernandez MD [address] [place] [id number] PCP - General Internal Medicine 07/09/17 documented as of this encounter
--- OUTSIDE RECORDS SUMMARY | 2025-01-20 12:58 | XMS_ITS ---
Author Organization [facility] Address [address] [facility] [address] [place] [address] Care Team Providers Care Frameman Name Role Phone Wayne Chantel Jeni [phone] REASON FOR VISIT meds Encounters Encounter Location Date Provider Diagnosis [facility] [address] [facility] [address] [place] [address] 01/15/2025 Chantel Black Plan Of Treatment No Information Progress Notes * Manuel SMITHeDOB:1960 (64 yo M)Acc No.[id number]:01/15/2025 Progress Notes Patient: Kiran VILLAFANA Appointment Provider: Jabari Black NP :1960 A ge:64 Y S ex:Male Supervising Provider:Tran Roberts MD Date:01/15/2025 Address:[address] [place], [place] [id number] Subjective: * Chief Complaints: * 1 . Meds. * Medical History: Objective: * Vitals: Assessment: Plan: * Treatment: * Billing Information: * Visit Code: * Procedure Codes: * Electronic signature of Helga Roberts MD on 01/20/2025 at 12:57 PM CDT Sign off status: Pending * Appointment Provider: Jabari Black NP Date: 0 01/15/2025 Generated for Printing/Faxing/eTransmitting on: 0 01/20/2025 12:57 PM CDT
[2025-01-20 13:00] LABS: Influenza A QL RT-PCR Negative (Negative); Influenza B QL RT-PCR Negative (Negative); RSV RNA, RT-PCR Negative (Negative); SARS-CoV-2 RNA PCR Negative (Negative)
[2025-01-20 13:04] LABS: Magnesium 2.1 mg/dL (1.6-2.3)
[2025-01-20 13:06] LABS: Alveolar/Arterial O2 Gradient 74.3 mmHg; Base Excess ABG 3.1 mEq/l (+/-2.0); Fractional Inspired Oxygen 32 %; HCO3 ABG 29.7 mEq/l (22.0-26.0); Oxygen Content ABG 18.8 %vol (16.0-22.0); Oxygen Saturation ABG 96.6 % (95.0-100.0); Oxyhemoglobin 95.6 % THb (90.0-100.0); PCO2 ABG 53.4 mmHg (35.0-45.0); PO2 ABG 91.4 mmHg (80.0-100.0); PO2 FiO2 Ratio Arterial Blood 2.86 %; Total Hemoglobin 13.9 g/dL (12.0-18.0); pH ABG 7.363 (7.350-7.450)
[2025-01-20 13:07] LABS: Device NASAL CANNULA; Modified Allen's Test Pass; Site Drawn RIGHT RADIAL
[2025-01-20 13:13] LABS: NT Pro B Type Natriuretic Pept 76 pg/mL (19.9-100); Troponin I < 0.012 ng/mL (0.000-0.034)
--- NOTE | 2025-01-20 13:18 | ED_ITS ---
HPI - General Adult General Chief complaint: Shortness of Breath/Dyspnea Stated complaint: SOB Time Seen by Provider: 01/20/25 12:42 History of Present Illness HPI narrative: Patient is 64-year-old gentleman presents emergency department with chief complaint of shortness of breath. Patient reports he was diagnosed with pneumonia about 3 weeks ago was treated and reports symptoms have been worsening. Patient does report that he has history of COPD reports he wears 3 L of oxygen all the time Related Data Home Medications ?Medication ?Instructions ?Recorded ?Confirmed ?Last Taken ?Type lidocaine 5 % topical patch 1 patch topical DAILY 08/17/19 01/02/25 11/13/24 History mv-folic acid 200 mcg-D3 300 1 tablet PO DAILY 08/17/19 01/02/25 11/13/24 History unit-K2 20 [id number] tablet (Stages Men's Multi-Vitamin) omeprazole 20 mg capsule,delayed 20 mg PO BID 08/17/19 01/02/25 11/13/24 History release pregabalin 150 mg capsule (Lyrica) 150 mg PO BID 05/15/20 01/02/25 11/13/24 History ferrous sulfate 325 mg (65 mg 325 mg PO DAILY 01/28/23 01/02/25 11/13/24 History iron) tablet oxycodone 10 mg/0.5 mL oral 10 mg PO Q4H 10/13/23 01/02/25 11/13/24 History syringe (FOR ORAL USE ONLY) aspirin 81 mg tablet,delayed 81 mg PO DAILY 04/26/24 01/02/25 11/13/24 History release (Adult Low Dose Aspirin) vitamin B complex 1 tablet PO DAILY 04/26/24 01/02/25 11/13/24 History trazodone 50 mg tablet 100 mg PO QHS 11/14/24 01/02/25 11/12/24 History Allergies Allergy/AdvReac Type Severity Reaction Status Date / Time Penicillins Allergy Unknown Itching Verified 01/02/25 15:44 Review of Systems 2 Review of Systems: A 10 system review of systems was completed on the patient and is negative except for what is stated in the HPI. Nursing and ancillary documentation was reviewed. [facility] Past Medical History Medical History BMI 26.0-26.9,adult Facial rash Impaired functional mobility, balance, gait, and endurance Facial droop Bowel perforation Crushing injury leg Encounter for Medicare annual wellness exam BMI 24.0-24.9, adult Hypotension Tibial fracture Absence seizure Borderline abnormal TFTs Vitamin B2 deficiency Vitamin B1 deficiency Cognitive changes Tremor Acute nonintractable headache Chronic fatigue Change in vision BMI 22.0-22.9, adult Back pain Cervicalgia BMI 32.0-32.9,adult NAVARRETE (dyspnea on exertion) BMI 31.0-31.9,adult Encounter for routine adult health examination with abnormal findings BMI 30.0-30.9,adult Hearing loss Myopia BMI 29.0-29.9,adult Encounter for preventive health examination Breast tenderness in male Vitamin D deficiency Squamous cell carcinoma BMI 25.0-25.9,adult Encounter for routine adult health examination with abnormal findings Tobacco abuse Shortness of Breath Hemoptysis DJD (degenerative joint disease) Hematuria GERD (gastroesophageal reflux disease) BMI 27.0-27.9,adult Encounter for routine adult health examination without abnormal findings COPD (chronic obstructive pulmonary disease) Follow up Personal history of nicotine dependence Hematoma Chronic low back pain Ataxia CTS (carpal tunnel syndrome) Vitamin B12 deficiency On md allergy immunology drug therapy Iron deficiency anemia Hearing loss of both ears Surgical History Surgical History S/P pneumonectomy Previous back surgery x6 Hx of gastric bypass Family History Family History Father Hypertension Family history of heart disease in male family member before age 55 Family history of cardiovascular disease Mother Hypertension Family history of diabetes mellitus in first degree relative Family history of malignant neoplasm of brain Family history of heart disease in male family member before age 55 Family history of cardiovascular disease Other Diabetes mellitus Social History Social History Smoking packs per day: 1 Smoking cigarettes per day: 20.0 Years smoked: 45 Smoking pack-years: 45.00 Smoking status: Former smoker ( Quit 11/13/2024) Tobacco type: cigarettes Second hand tobacco smoke exposure: No Smoking end date: 02/02/20 Additional smoking assessment comments: smoking less than 1/2 pack currently Alcohol intake: never Substance use: current Substance use type: marijuana Other substance usage details: Gummies Last use: 11/13/24 Do You Feel Safe in your Home?: Yes Lack of Transportation: No Lack of Food: Sometimes True Current Housing: I Have Housing Concerned About Future Housing: YES Difficulty Paying Gas/Electric Bills: YES Difficulty Paying for Meds: No Currently Unemployed: No Education: High School Diploma/GED Difficulty w/ Childcare or Family Care: No Living arrangements: with family Occupation/Education: unemployed Gender identity (if verbalized by the patient): Male Spiritual care concerns: No Exam 2 Narrative: GENERAL: Well-appearing, well-nourished, and in no acute distress. HEAD: Normocephalic, atraumatic. EYES: PERRLA and EOMI. ENT: Nares clear, no rhinorrhea or epistaxis. Mucous membranes moist. NECK: Supple. CHEST: Clear to auscultation. No respiratory distress. HEART: Regular rate and rhythm. No murmur heard. Normal peripheral pulses. ABDOMEN: Soft, nontender, nondistended, normal active bowel sounds. EXTREMITIES: Normal range of motion. No edema. SKIN: Warm, dry, no rash. NEURO: No focal deficits. Alert and oriented x3 somewhat slow to answer questions. PSYCH: Normal mood and affect. Course Vital Signs Vital signs: Vital Signs Pulse Rate 124 H 01/20/25 12:00 Respiratory Rate 20 01/20/25 12:00 Pulse Oximetry 86 L 01/20/25 12:00 Oxygen Delivery Room Air 01/20/25 12:00 Temperature 36.6 C 01/20/25 12:53 Pulse Rate 104 H 01/20/25 12:53 Respiratory Rate 17 01/20/25 12:53 Blood Pressure 117/74 01/20/25 12:53 Pulse Oximetry 97 01/20/25 12:53 Oxygen Delivery Nasal Cannula 01/20/25 12:07 Oxygen Flow Rate 3 01/20/25 12:07 Medical Decision Making [facility] Narrative Medical decision making narrative: Differential diagnosis includes pneumonia, COPD exacerbation, failed outpatient therapy Come the patient is currently 97% on 3 L nasal cannula patient heart rate is currently 99 was 124 when he 1st came in Chest x-ray shows worsening pneumonia COVID flu RSV are negative CT Vital Signs Vital Signs: Vital Signs Pulse Rate 124 H 01/20/25 12:00 Respiratory Rate 20 01/20/25 12:00 Pulse Oximetry 86 L 01/20/25 12:00 Oxygen Delivery Room Air 01/20/25 12:00 Temperature 36.6 C 01/20/25 12:53 Pulse Rate 104 H 01/20/25 12:53 Respiratory Rate 17 01/20/25 12:53 Blood Pressure 117/74 01/20/25 12:53 Pulse Oximetry 97 01/20/25 12:53 Oxygen Delivery Nasal Cannula 01/20/25 12:07 Oxygen Flow Rate 3 01/20/25 12:07 Lab Data 01/20/25 12:16 01/20/25 12:16 Labs: Lab Results 01/20/25 01/20/25 Range/Units 12:16 12:55 WBC 11.7 H (4.5-10.0) K/mm3 RBC 5.16 (4.6-6.20) M/mm3 Hgb 13.0 L (14.0-18.0) g/dL Hct 42.3 (42.0-52.0) % MCV 82.0 (80-100) fl MCH 25.2 L (26-34) pg MCHC 30.7 L (32-36) g/dl RDW 16.9 H (11.5-14.5) % Plt Count 347 (150-375) k/mm3 MPV 9.1 (7.4-10.4) fl Immature Gran % (Auto) 0.4 (0-0.5) % Neut % (Auto) 71.5 (45.5-73.1) % Lymph % (Auto) 17.2 L (18.3-44.2) % Rains % (Auto) 7.6 (2.6-8.5) % Eos % (Auto) 3.0 (0-4.4) % Baso % (Auto) 0.3 (0.2-1.2) % Lymph # (Auto) 2.02 (0.9-3.2) K/mm3 Rains # (Auto) 0.9 H (0.1-0.6) K/mm3 Eos # (Auto) 0.4 H (0-0.3) K/mm3 Baso # (Auto) 0.0 (0.0-0.1) K/mm3 Abs Immat Gran (auto) 0.05 H (0.00-0.031) K/mm3 Absolute Neuts (auto) 8.4 H (1.3-6.7) K/mm3 Absolute Nucleated RBC 0.000 (0.0-0.012) K/mm3 Nucleated RBC % 0.0 (0.0-0.2) % Sodium 141 (137-145) mmol/L Potassium 4.1 (3.4-5.0) mmol/L Chloride 102 (98-107) mmol/L Carbon Dioxide 30 (22-30) mmol/L Anion Gap 9 (4-12) mmol/L BUN 15 (9-20) mg/dL Creatinine 0.76 (0.7-1.3) mg/dL Estim Creat Clear Calc 78 ml/min Estimated GFR > 60 (59 - ) Glucose 104 (65-110) mg/dL Lactic Acid Pending Calcium 9.2 (8.4-10.2) mg/dL Magnesium 2.1 (1.6-2.3) mg/dL Total Bilirubin 0.4 (0.2-1.3) mg/dL AST 30 (17-59) U/L ALT 21 (6-50) U/L Alkaline Phosphatase 123 (38-126) U/L Troponin I < 0.012 (0.000-0.034) ng/mL NT-Pro-B Natriuret Pep 76 (19.9-100) pg/mL Total Protein 8.0 (6.3-8.2) g/dL Albumin 4.0 (3.5-5.1) g/dL Procalcitonin Pending Influenza A (RT-PCR) Negative (Negative) Influenza B (RT-PCR) Negative (Negative) RSV (RT-PCR) Negative (Negative) SARS-CoV-2 RNA (RT-PCR) Negative (Negative) ABG Data ABG results: 01/20/25 12:58 Puncture Site Right radial ABG pH 7.363 ABG pCO2 53.4 H ABG pO2 91.4 ABG PO2/FiO2 Ratio 2.86 ABG HCO3 29.7 H ABG O2 Saturation 96.6 ABG O2 Content 18.8 ABG Base Excess 3.1 A-a Gradient 74.3 Oxyhemoglobin 95.6 Total Hemoglobin 13.9 O2 Delivery Device Nasal cannula O2 Liters/Min 3.0 FiO2 32 Discharge Plan Discharge Clinical Impression: Pneumonia Patient Disposition: Still a Patient Condition: Stable Patient Language: Lithuanian Prescriptions: No Action lidocaine 5 % adhesive patch,medicated 1 patch TOPICAL DAILY omeprazole 20 mg capsule,delayed release(DR/EC) 20 mg PO BID Stages Men's Multi-Vitamin 200 mcg-300 unit-20 mcg tablet 1 tablet PO DAILY pregabalin [Lyrica] 150 mg capsule 150 mg PO BID ferrous sulfate 325 mg (65 mg iron) tablet 325 mg PO DAILY oxycodone 10 mg/0.5 mL syringe 10 mg PO Q4H tizanidine 4 mg capsule 4 mg PO TID PRN (Reason: muscle spasticity) Qty: 30 0RF albuterol sulfate 90 mcg/actuation HFA aerosol inhaler See Rx Instructions .ROUTE .COMPLEX Qty: 8.5 1RF Dose Instruction: TAKE 1-2 PUFFS EVERY 4 HOURS NEEDED FOR SHORTNESS OF BREATH/WHEEZING. Rx Instructions: TAKE 1-2 PUFFS EVERY 4 HOURS NEEDED FOR SHORTNESS OF BREATH/WHEEZING. vitamin B complex Tablet 1 tablet PO DAILY aspirin [Adult Low Dose Aspirin] 81 mg tablet,delayed release (DR/EC) 81 mg PO DAILY midodrine 2.5 mg tablet 2.5 mg PO BID Qty: 180 1RF Rx Instructions: do not give last dose of day after 6PM or within 4 hrs of bedtime trazodone 50 mg tablet 100 mg PO QHS cefpodoxime 200 mg tablet 200 mg PO Q12H 7 Days Qty: 14 0RF Rx Instructions: must administer with a meal/food azithromycin 250 mg tablet See Rx Instructions .ROUTE .COMPLEX Qty: 6 0RF Rx Instructions: For 250 mg dose pack: take 500 mg today (day 1), then 250 mg for 4 days (days 2-5) albuterol sulfate 1.25 mg/3 mL solution for nebulization 1.25 mg inhalation Q4H Qty: 75 0RF paroxetine HCl 40 mg tablet See Rx Instructions .ROUTE .COMPLEX Qty: 90 1RF Dose Instruction: TAKE 1 TABLET BY MOUTH EVERY DAY Rx Instructions: TAKE 1 TABLET BY MOUTH EVERY DAY cyanocobalamin (vitamin B-12) 1,000 mcg/mL solution See Rx Instructions .ROUTE .COMPLEX Qty: 3 1RF Dose Instruction: INJECT 1ML INTO MUSCLE ONCE MONTHLY Rx Instructions: INJECT 1ML INTO MUSCLE ONCE MONTHLY BD Luer-Collin Syringe 3 mL 25 gauge x 1 syringe See Rx Instructions .ROUTE .COMPLEX Qty: 3 3RF Dose Instruction: FOR FOR ONCE MONTHLY IM INJECTIONS OF VITAMIIN B12 DIRECTED Rx Instructions: FOR ONCE MONTHLY IM INJECTIONS OF VITAMIIN B12 DIRECTED Ari Ellipta 100-62.5-25 mcg blister with device 1 inh inhalation DAILY Qty: 60 3RF bupropion HCl 300 mg tablet extended release 24 hr See Rx Instructions .ROUTE .COMPLEX Qty: 90 0RF Dose Instruction: TAKE 1 TABLET BY MOUTH EVERY MORNING Rx Instructions: TAKE 1 TABLET BY MOUTH EVERY MORNING lorazepam 0.5 mg tablet 0.5 mg PO BID PRN (Reason: anxiety) Qty: 60 1RF levetiracetam 500 mg tablet extended release 24 hr 1,500 mg PO QHS Qty: 300 2RF Follow-up/Referrals: Vickey Hernandez MD [Primary Care Provider] - Time of Disposition: 13:28
[2025-01-20 13:21] LABS: Procalcitonin 0.1 ng/mL
--- NOTE | 2025-01-20 13:30 | P.HP_ITS ---
H&P: HPI History of Present Illness Date/Time: 01/20/25 13:30 Chief Complaint: shortness of breath Narrative: 64-year-old male with past medical history COPD, lung cancer status post right middle lobe lobectomy in 2019, vitamin B12 deficiency, iron deficiency anemia, chronic pain with chronic opioid use, GERD, hypotension who presents with shortness of breath. Patient states that he saw his cable tester this week and was started on antibiotics and they were not helping so he came in the the ER, with shortness of breath. He has been on 3 LNC since he was discharged from the hospital In the ED has leukocytosis 11.7, ABG shows pH of 7.36, pCO2 53.4, PO2 of 91 with bicarb of 29.7, CMP is within normal limits. Of note patient was in the hospital from 11/14/2024-12/04/2024 with respiratory failure secondary to nosocomial pneumonia and was treated with levofloxacin and cefepime. Since his discharge from hospital leg following up with Pulmonary outpatient. He did chest CT on 01/18/2025 that showed Left basal pneumonia with minimal effusion. Multiple patchy opacities in the left upper lobe and lingula suggestive of infection and was being treated with oral antibiotics. Today's chest x-ray shows Increasing opacities in bilateral mid and lower lung zones consistent with worsening pneumonia. Blood cultures are pending. EKG shows sinus tachycardia 108. Review of Systems Review of Systems: 12 systems were reviewed and are negativ e except for as per HPI. [facility] Past Medical History Medical History BMI 26.0-26.9,adult Facial rash Impaired functional mobility, balance, gait, and endurance Facial droop Bowel perforation Crushing injury leg Encounter for Medicare annual wellness exam BMI 24.0-24.9, adult Hypotension Tibial fracture Absence seizure Borderline abnormal TFTs Vitamin B2 deficiency Vitamin B1 deficiency Cognitive changes Tremor Acute nonintractable headache Chronic fatigue Change in vision BMI 22.0-22.9, adult Back pain Cervicalgia BMI 32.0-32.9,adult NAV[place]RETE (dyspnea on exertion) BMI 31.0-31.9,adult Encounter for routine adult health examination with abnormal findings BMI 30.0-30.9,adult Hearing loss Myopia BMI 29.0-29.9,adult Encounter for preventive health examination Breast tenderness in male Vitamin D deficiency Squamous cell carcinoma BMI 25.0-25.9,adult Encounter for routine adult health examination with abnormal findings Tobacco abuse Shortness of Breath Hemoptysis DJD (degenerative joint disease) Hematuria GERD (gastroesophageal reflux disease) BMI 27.0-27.9,adult Encounter for routine adult health examination without abnormal findings COPD (chronic obstructive pulmonary disease) Follow up Personal history of nicotine dependence Hematoma Chronic low back pain Ataxia CTS (carpal tunnel syndrome) Vitamin B12 deficiency 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 Iron deficiency anemia Hearing loss of both ears Surgical History Surgical History S/P pneumonectomy Previous back surgery x6 Hx of gastric bypass Family History Family History (Updated 01/20/25 @ 15:20 by Albin Quiñones RN) Father Family history of heart disease in male family member before age 55 Family history of cardiovascular disease Hypertension Mother Family history of heart disease in male family member before age 55 Family history of cardiovascular disease Family history of diabetes mellitus in first degree relative Family history of malignant neoplasm of brain Hypertension Social History Social History Smoking packs per day: 2 Smoking cigarettes per day: 40.0 Years smoked: 40 Smoking pack-years: 80.00 Smoking status: Former smoker Tobacco type: cigarettes Second hand tobacco smoke exposure: No Smoking end date: 02/02/20 Additional smoking assessment comments: pt. doesn't know when he stopped smoking cigarettes Alcohol intake: never Substance use: never Substance use type: marijuana Other substance usage details: Gummies Last use: 11/13/24 Do You Feel Safe in your Home?: Yes Lack of Transportation: No Lack of Food: Never True Current Housing: I Have Housing Concerned About Future Housing: No Difficulty Paying Gas/Electric Bills: No Difficulty Paying for Meds: No Currently Unemployed: No Education: High School Diploma/GED Difficulty w/ Childcare or Family Care: No Living arrangements: with family Occupation/Education: unemployed Gender identity (if verbalized by the patient): Male Spiritual care concerns: No Meds Home Medications and Allergies Home Medications ?Medication ?Instructions ?Recorded ?Confirmed ?Type lidocaine 5 % topical patch 1 patch topical DAILY 08/17/19 01/20/25 History mv-folic acid 200 mcg-D3 300 1 tablet PO DAILY 08/17/19 01/20/25 History unit-K2 20 ugy-wbftiixm-irva#222 tablet (Stages Men's Multi-Vitamin) omeprazole 20 mg capsule,delayed 20 mg PO BID 08/17/19 01/20/25 History release pregabalin 150 mg capsule (Lyrica) 150 mg PO DAILY 05/15/20 01/20/25 History ferrous sulfate 325 mg (65 mg 325 mg PO DAILY 01/28/23 01/20/25 History iron) tablet oxycodone 10 mg/0.5 mL oral 10 mg PO Q4H 10/13/23 01/20/25 History syringe (FOR ORAL USE ONLY) tizanidine 4 mg capsule 4 mg PO TID PRN muscle spasticity 10/13/23 01/20/25 Rx #30 caps albuterol sulfate 90 mcg/actuation See Rx Instructions .Route 04/11/24 01/20/25 Rx aerosol inhaler .COMPLEX #8.5 ea aspirin 81 mg tablet,delayed 81 mg PO DAILY 04/26/24 01/20/25 History release (Adult Low Dose Aspirin) vitamin B complex 1 tablet PO DAILY 04/26/24 01/20/25 History midodrine 2.5 mg tablet 2.5 mg PO BID #180 tabs 07/03/24 01/20/25 Rx paroxetine HCl 40 mg tablet See Rx Instructions .Route 07/13/24 01/20/25 Rx .COMPLEX #90 tabs cyanocobalamin (vitamin B-12) See Rx Instructions .Route 09/28/24 01/20/25 Rx 1,000 mcg/mL injection solution .COMPLEX #3 mL syringe with needle 3 mL 25 gauge See Rx Instructions .Route 09/28/24 01/20/25 Rx x 1 (BD Luer-Collin Syringe) .COMPLEX #3 ea trazodone 50 mg tablet 100 mg PO QHS 11/14/24 01/20/25 History Trelegy Ellipta 100 mcg-62.5 1 inh inhalation DAILY #60 ea 12/07/24 01/20/25 Rx mcg-25 mcg powder for inhalation (zkjmskyxeej-doulljwby-danxrqhr) bupropion HCl 300 mg 24 hr tablet, See Rx Instructions .Route 12/07/24 01/20/25 Rx extended release .COMPLEX #90 tabs levetiracetam 500 mg 1,500 mg (3 x 500 mg) PO QHS #300 01/02/25 01/20/25 Rx tablet,extended release 24 hr tabs albuterol sulfate 1.25 mg/3 mL 1.25 mg (3 mL) inhalation Q4H #75 01/18/25 01/20/25 Rx solution for nebulization mL azithromycin 250 mg tablet See Rx Instructions PO .COMPLEX #6 01/18/25 01/20/25 Rx tabs cefpodoxime 200 mg tablet 200 mg PO Q12H 7 days #14 tabs 01/18/25 01/20/25 Rx lorazepam 0.5 mg tablet 0.5 mg PO TID PRN anxiety 01/20/25 01/20/25 History Allergies Allergy/AdvReac Type Severity Reaction Status Date / Time Penicillins Allergy Unknown Itching Verified 01/20/25 15:21 Vital Signs Vital Signs - 24 hr 01/20/25 12:00 01/20/25 12:05 01/20/25 12:06 Temperature Pulse Rate 124 H Respiratory Rate 20 Blood Pressure Pulse Oximetry 86 L 89 L 94 Oxygen Delivery Room Air Nasal Cannula Nasal Cannula Oxygen Flow Rate 2 3 01/20/25 12:07 01/20/25 12:53 01/20/25 12:53 Temperature 97.8 F Pulse Rate 104 H Respiratory Rate 17 Blood Pressure 117/74 Pulse Oximetry 97 97 Oxygen Delivery Nasal Cannula Oxygen Flow Rate 3 Exam Narrative: General: Chronically ill HEENT: normocephalic, atraumatic. Mucous membranes moist. EOMI, PERRLA, bilateral sclera anicteric, no conjunctival injection. Neck supple without JVD, lymphadenopathy, or bruit. Respiratory: left side coarse and right diminished Cardiovascular: Regular rate and rhythm, normal S1-S2 upon auscultation. No murmurs, rubs, or clicks. PMI is nondisplaced, capillary refill less than 3 second. Abdomen: Soft, round, no pulsatile masses, nondistended and nontender. No rebound, no guarding. No CVA tenderness, no hepatosplenomegaly. Bowel sounds present to all four quadrants. No high pitch or tinkling sounds, resonant to percussion. Extremities: No cyanosis, clubbing, or edema present. Pulses are palpable 2/2. Active ROM to all four extremities. Neuro: Alert and orientated x 4. PERRLA. Cranial nerves 2-12 intact without focal deficit. Skin: Warm, dry, and intact, without rash, erythema, or lesion. Psych: pleasant, cooperative, normal speech, normal affect, no hallucinations, no dysarthia H&P: Results Labs Labs: Short CBC 01/20/25 Range/Units 12:16 WBC 11.7 H (4.5-10.0) K/mm3 Hgb 13.0 L (14.0-18.0) g/dL Hct 42.3 (42.0-52.0) % Plt Count 347 (150-375) k/mm3 BMP 01/20/25 12:16 Sodium 141 Potassium 4.1 Chloride 102 Carbon Dioxide 30 BUN 15 Creatinine 0.76 Glucose 104 Calcium 9.2 Cardiac Enzymes 01/20/25 Range/Units 12:16 Troponin I < 0.012 (0.000-0.034) ng/mL Liver Function 01/20/25 Range/Units 12:16 Total Bilirubin 0.4 (0.2-1.3) mg/dL AST 30 (17-59) U/L ALT 21 (6-50) U/L Alkaline Phosphatase 123 (38-126) U/L Albumin 4.0 (3.5-5.1) g/dL Assessment and Plan Assessment and plan (1) Community acquired pneumonia: Code(s): J18.9 - Pneumonia, unspecified organism Status: Acute Assessment and Plan: Pulmonology consulted, available by telephone on Wednesday and in house on Wednesday Erythromycin and cefepime DuoNebs Sputum culture pending IS (2) Chronic low back pain: Qualifiers: Back pain laterality: unspecified Sciatica presence: unspecified whether sciatica present Qualified Code(s): M54.5 - Low back pain; G89.29 - Other chronic pain Code(s): M54.5 - Low back pain; G89.29 - Other chronic pain Status: Acute Assessment and Plan: Continue home Oral oxycodone (3) Seizure: Code(s): R56.9 - Unspecified convulsions Status: Acute Assessment and Plan: Continue Keppra (4) COPD (chronic obstructive pulmonary disease): Qualifiers: COPD type: unspecified COPD Qualified Code(s): J44.9 - Chronic obstructive pulmonary disease, unspecified Code(s): J44.9 - Chronic obstructive pulmonary disease, unspecified Status: Acute Assessment and Plan: Pulmonology consulted will defer to pulm for steroids Q 4 DuoNebs (5) Anxiety: Code(s): F41.9 - Anxiety disorder, unspecified Status: Acute Assessment and Plan: Continue medications (6) History of lung cancer: Code(s): Z85.118 - Personal history of other malignant neoplasm of bronchus and lung Status: Acute Assessment and Plan: squamous cell carcinoma With resection Quality VTE Prophylaxis VTE prophylaxis: mechanical ordered and pharmacologic ordered Hospitalist MIPS Advance Care Plan I have confirmed that the patient's Advanced Care Plan is present, code status is documented, or surrogate decision maker is listed in patient medical record.: Yes Medication Reconciliation I have utilized all available resources to obtain, update and review the patients current medications (includes all prescriptions, OTC, herbals, cannabis, and nutritional supplements).: Yes
[2025-01-20] MEDS: IPRATROPIUM 0.5 MG/ALBUTEROL SULFATE 2.5 MG AMPUL.NEB 3 ML INHALATION ×2 (13:37→19:33)
[2025-01-20 13:38] LABS: Lactic Acid Reflex 0.8 mmol/L (0.7-2.0)
[2025-01-20] MEDS: CEFEPIME 2 GM/NS 50 ML 2 GM/50 ML BAG IVPB (14:01)
--- NOTE | 2025-01-20 15:10 | ADMGEN ---
This patient, Kiran Smith, was admitted to 2 Medical Room 242-. Patient/family oriented to hospital policies and general routines including ID bracelet, bed and alarms, visiting hours, pain management, procedures, bathroom and other care routines, personal items, smoking policy, room service/diet, and visiting hours. Information on how to activate the Rapid Response Team has been discussed. Patient/Family are encouraged to report perceived risks to care and to ask questions if they do not understand what they are told or what they should do.
[2025-01-20] MEDS: AZITHROMYCIN 500 MG/NS 250 ML 500 MG/250 ML BAG 250 MG IVPB (15:11)
[2025-01-20] MEDS: MIDODRINE HCL 2.5 MG TABLET PO (16:27)
[2025-01-20] MEDS: PANTOPRAZOLE 40 MG TABLET PO (16:27)
[2025-01-20] MEDS: oxyCODONE (*CRX) 5 MG/5 ML ORAL SOLN IR 10 MG PO ×2 (16:27→20:53)
[2025-01-20 17:08] LABS: Troponin I < 0.012 ng/mL (0.000-0.034)
[2025-01-20] MEDS: traZODone HCL 50 MG TABLET 100 MG PO (20:52)
[2025-01-20] MEDS: levETIRAcetam 500 MG TABLET 1500 MG PO (20:52)
[2025-01-20] MEDS: LORazepam (*CRX) 0.5 MG TABLET PO (20:56)
[2025-01-21] VITALS (18 sets, daily range): BP systolic 102–123; BP diastolic 57–71; PULSE 63–102; RESP 16–18; TEMP 36.4–36.6; O2SAT 96–100
[2025-01-21] MEDS: oxyCODONE (*CRX) 5 MG/5 ML ORAL SOLN IR 10 MG PO ×6 (01:14→20:52)
[2025-01-21] MEDS: IPRATROPIUM 0.5 MG/ALBUTEROL SULFATE 2.5 MG AMPUL.NEB 3 ML INHALATION ×3 (01:20→20:48)
[2025-01-21] MEDS: CEFEPIME 2 GM/NS 50 ML 2 GM/50 ML BAG IVPB ×2 (02:19→13:03)
[2025-01-21 04:27] LABS: Basophils Percent Auto 0.2 % (0.2-1.2); Hemoglobin 11.4 g/dL (14.0-18.0); Immature Granulocyte Absolute 0.03 K/mm3 (0.00-0.031); Immature Granulocyte Percent A 0.5 % (0-0.5); Lymphocytes Absolute Auto 0.46 K/mm3 (0.9-3.2); Lymphocytes Percent Auto 7.1 % (18.3-44.2); Mean Corpuscular Hemoglobin 25.2 pg (26-34); Mean Corpuscular Volume 83.9 fl (80-100); Mean Platelet Volume 9.6 fl (7.4-10.4); Monocytes Absolute Auto 0.3 K/mm3 (0.1-0.6); Monocytes Percent Auto 5.3 % (2.6-8.5); Neutrophils Absolute Auto 5.6 K/mm3 (1.3-6.7); Neutrophils Percent Auto 86.9 % (45.5-73.1); Platelet Count Result 304 k/mm3 (150-375); Red Blood Count 4.53 M/mm3 (4.6-6.20); Red Cell Distribution Width 16.5 % (11.5-14.5); White Blood Count 6.5 K/mm3 (4.5-10.0)
[2025-01-21 04:44] LABS: Anion Gap 8 mmol/L (4-12); Blood Urea Nitrogen 18 mg/dL (9-20); Calcium 8.9 mg/dL (8.4-10.2); Carbon Dioxide 31 mmol/L (22-30); Chloride 102 mmol/L (98-107); Estimated CRCL calculation 73 ml/min; Estimated Glomerular Filt Rate > 60; Glucose 134 mg/dL (65-110); Potassium 4.7 mmol/L (3.4-5.0); Sodium 141 mmol/L (137-145)
--- NOTE | 2025-01-21 06:25 | P.PNIM_ITS ---
Progress Note: A&P Assessment and Plan (1) Respiratory failure with hypoxia and hypercapnia: Code(s): J96.91 - Respiratory failure, unspecified with hypoxia; J96.92 - Respiratory failure, unspecified with hypercapnia Status: Acute Assessment and Plan: Unsure if patient is on chronic oxygen supplementation. Patient follows soccer referee Dr. Mosley. Last seen on 01/02/25. Per Dr. Cool note patient was not on any home oxygen during that visit however patient states he has worn oxygen since 11/2024. Wean oxygen as tolerated, maintain spo2 >90 Pulmonology consulted (2) Community acquired pneumonia: Code(s): J18.9 - Pneumonia, unspecified organism Status: Acute Assessment and Plan: Patient was previously seen in the ED on 01/18, at that time he was sating well on what he said was his chronic oxygen supplementation of 3L NC and was discharged home on a zpak and cefpodoxime. CXR 01/18: Elevation of the left hemidiaphragm with left-sided pleural effusion and adjacent compressive atelectasis. Chest CTA 01/18: No PE. Left basal pneumonia with minimal effusion and multiple patchy opacities in the left upper lobe and lingula suggestive of infection as well as a nodule in the left apical area and bilateral healing rib fractures. - Chest XR on admission : Increasing opacities in the bilateral mid and lower lung zones consistent with worsening pneumonia and unchanged elevation of the left hemidiaphragm. - Complicating Factors: COPD on chronic oxygen, hx of lobectomy - Antibiotics: azithromycin and cefepime started on 01/20 - Remains on chronic oxygen supplementation of 2LNC. Keep SpO2 greater than 88% - Viral PCR: negative for Flu/COVID/RSV - MRSA pending - Blood cultures obtained on 01/20: pending - Send sputum cultures - IS and PEP therapy - legionella, mycoplasma and pneumococcal ordered. Previously positive for pneumococcal in urine on 11/14/24. - Monitor vital signs, I&Os, neuro status and patient is a fall risk - Follow WBC, serum electrolytes, temperature curves and cultures - Pulmonology consulted (3) COPD (chronic obstructive pulmonary disease): Qualifiers: COPD type: unspecified COPD Qualified Code(s): J44.9 - Chronic obstructive pulmonary disease, unspecified Code(s): J44.9 - Chronic obstructive pulmonary disease, unspecified Status: Acute Assessment and Plan: Patient follows soccer referee Dr. Mosley. Last seen on 01/02/25. He was not on any home oxygen during that visit per chart review, however patient states he has been on 2L NC since 11/2024. Continue trelegy 100 and p.r.n. albuterol. Will hold on steroids at this time given patients current infection and no wheezing on auscultation Pulmonology consulted (4) Seizure: Code(s): R56.9 - Unspecified convulsions Status: Acute Assessment and Plan: Chronic, continue keppra (5) Hypotension: Qualifiers: Hypotension type: unspecified hypotension type Qualified Code(s): I95.9 - Hypotension, unspecified Code(s): I95.9 - Hypotension, unspecified Status: Acute Assessment and Plan: Chronic, continue midodrine 2.5 mg BID Blood pressures remain stable, continue to monitor (6) History of lung cancer: Code(s): Z85.118 - Personal history of other malignant neoplasm of bronchus and lung Status: Acute Assessment and Plan: Squamous cell carcinoma s/p right middle lobe lobectomy in 2019 Time Spent With Patient Time with patient: 25 - 35 minutes Subjective Date/time seen: 01/21/25 06:25 Interval history: 64 year old male with a past medical history of tobacco abuse, COPD on chronic 2L NC of oxygen supplementation, lung cancer s/p right middle lobe lobectomy in 2019, vitamin B 12 deficiency, iron deficiency anemia, gastric bypass in 2000, chronic pain, GERD, and hypotension presented to the hospital for worsening shortness of breath/dyspnea. Patient was previously seen in the ED on 01/18, at that time he was sating well on what he said was his chronic oxygen supplementation of 3L NC and was discharged home on a zpak and cefpodoxime. Patient follows soccer referee Dr. Mosley. Last seen on 01/02/25. Per Dr. Cool note patient was not on any home oxygen during that visit however patient states he has worn oxygen since 11/2024. Patient is pleasant sitting up comfortably in his bed. He states that his shortness of breath has much improved since admission. He is endorsing a intermittent productive cough with yellow phlegm. He denies any chest pain, palpitations, nausea/vomiting or abdominal pain. Review of Systems Review of Systems: All systems reviewed & are unremarkable except as noted in HPI and below Exam Narrative: AF HR 70 RR 18 SpO2 100 3L NC (baseline 2L NC?) BP 123/71 General: male in no acute respiratory distress who is nontoxic appearing, lying semi recumbent in bed. HEENT: Normocephalic. Atraumatic. Extraocular movement intact. Sclera clear and anicteric. No facial asymmetry. Chest: Lungs are coarse to auscultation bilaterally with bibasilar crackles. No wheezes. CV: Heart was regular rate and rhythm. S1/S2. No murmurs, gallops, or rubs. Abd: Abdomen was soft. Nontender. Nondistended. Positive bowel sounds. Ext: No clubbing, cyanosis, or edema. DP pulses bilaterally. Neuro: Patient is alert. Speech is clear. Objective Data Vital Signs Vital Signs: Vital Signs - 24 hr 01/20/25 12:00 01/20/25 12:05 01/20/25 12:06 Temperature Pulse Rate 124 H Respiratory Rate 20 Blood Pressure Pulse Oximetry 86 L 89 L 94 Oxygen Delivery Room Air Nasal Cannula Nasal Cannula Oxygen Flow Rate 2 3 Fraction of Inspired Oxygen 01/20/25 12:07 01/20/25 12:53 01/20/25 12:53 Temperature 97.8 F Pulse Rate 104 H Respiratory Rate 17 Blood Pressure 117/74 Pulse Oximetry 97 97 Oxygen Delivery Nasal Cannula Oxygen Flow Rate 3 Fraction of Inspired Oxygen 01/20/25 13:37 01/20/25 13:44 01/20/25 15:50 Temperature 98.2 F Pulse Rate 95 85 92 Respiratory Rate 18 15 20 Blood Pressure 120/68 Pulse Oximetry 98 Oxygen Delivery Oxygen Flow Rate Fraction of Inspired Oxygen 01/20/25 16:00 01/20/25 19:33 01/20/25 19:33 Temperature Pulse Rate 94 86 86 Respiratory Rate 18 18 Blood Pressure Pulse Oximetry 98 Oxygen Delivery Nasal Cannula Oxygen Flow Rate 3 Fraction of Inspired Oxygen 32 01/20/25 19:42 01/20/25 20:00 01/20/25 20:00 Temperature Pulse Rate 91 85 85 Respiratory Rate 18 18 Blood Pressure Pulse Oximetry 98 Oxygen Delivery Nasal Cannula Oxygen Flow Rate 3 Fraction of Inspired Oxygen 01/20/25 20:49 01/21/25 00:00 01/21/25 01:20 Temperature 97.7 F Pulse Rate 84 63 68 Respiratory Rate 18 16 Blood Pressure 125/78 Pulse Oximetry 98 Oxygen Delivery Oxygen Flow Rate Fraction of Inspired Oxygen 01/21/25 01:29 01/21/25 04:00 01/21/25 05:27 Temperature 97.5 F L Pulse Rate 66 72 70 Respiratory Rate 16 18 Blood Pressure 123/71 Pulse Oximetry 100 Oxygen Delivery Oxygen Flow Rate Fraction of Inspired Oxygen Intake/Output Intake/Output: Intake & Output 01/18/25 01/19/25 01/20/25 01/21/25 23:59 23:59 23:59 23:59 Intake Total 780 250 Output Total 350 150 Balance 430 100 Meds/Results Medications: Active Medications Generic Name Dose Route Start Last Admin Trade Name Freq PRN Reason Stop Dose Admin Acetaminophen 650 mg 01/20/25 13:25 Acetaminophen 325 Mg Tablet PO Q4H PRN Mild Pain (1-3) or Fever Albuterol/Ipratropium 3 ml 01/20/25 14:00 01/21/25 01:20 Ipratropium 0.5 Mg/Albuterol Sulfate 2.5 Mg Ampul.Neb 3 Ml INHALATION 3 ml Q6HRT [facility] Administration Aspirin 81 mg 01/21/25 09:00 Aspirin 81 Mg Enteric Tablet PO DAILY [facility] Bupropion HCl 150 mg 01/21/25 09:00 Bupropion Hcl Xl (24 Hr) 150 Mg Tabcr BY MOUTH DAILY [facility] Docusate Sodium 100 mg 01/21/25 09:00 Docusate Sodium 100 Mg Capsule PO DAILY [facility] Enoxaparin Sodium 40 mg 01/21/25 09:00 Enoxaparin 40 Mg/0.4 Ml Syringe SUB-Q DAILY [facility] Ferrous Sulfate 325 mg 01/21/25 09:00 Ferrous Sulfate [address] BY MOUTH DAILY [facility] Fluticasone/Umeclidinium/Vilanterol 1 puff 01/21/25 09:00 Fluticasone/Umeclidin/Vilanter 100-62.5-25 Mcg Ellipta INHALATION DAILY [facility] Azithromycin 500 mg in 250 mls @ 250 mls/hr 01/21/25 15:00 Zithromax IVPB Q24H [facility] Cefepime HCl 2 gm in 50 mls @ 100 mls/hr 01/21/25 02:00 01/21/25 02:49 Maxipime 2 Gm/Ns 50 Ml IVPB Infused Q12H [facility] Infusion Levetiracetam 1,500 mg 01/20/25 21:00 01/20/25 20:52 Levetiracetam 500 Mg Tablet PO 1,500 mg QHS [facility] Administration Lidocaine 1 patch 01/21/25 09:00 Lidocaine 5% Patch TOPICAL DAILY [facility] Lorazepam 0.5 mg 01/20/25 15:43 01/20/25 20:56 Lorazepam (*Crx) 0.5 Mg Tablet PO 0.5 mg TID PRN Administration anxiety Midodrine 2.5 mg 01/20/25 17:00 01/20/25 16:27 Midodrine Hcl 2.5 Mg Tablet PO 2.5 mg BID [facility] Administration Oxycodone HCl 10 mg 01/20/25 17:00 01/21/25 05:32 Oxycodone (*Crx) 5 Mg/5 Ml Oral Soln Ir PO 10 mg Q4HR [facility] Administration Pantoprazole Sodium 40 mg 01/20/25 17:00 01/20/25 16:27 Pantoprazole 40 Mg Tablet PO 40 mg BID [facility] Administration Paroxetine HCl 40 mg 01/21/25 09:00 Paroxetine 20 Mg Tablet BY MOUTH QAM [facility] Pregabalin 150 mg 01/21/25 09:00 Pregabalin (*Crx) 75 Mg Capsule PO DAILY [facility] Tizanidine HCl 4 mg 01/20/25 15:43 Tizanidine Hcl 4 Mg Tablet PO TID PRN muscle spasticity Trazodone HCl 100 mg 01/20/25 21:00 01/20/25 20:52 Trazodone Hcl 50 Mg Tablet PO 100 mg QHS [facility] Administration Vitamin B Complex 1 cap 01/21/25 09:00 Vitamin B Complex Capsule PO DAILY [facility] Radiology Results: ITS Impressions Chest X-Ray 01/20/25 12:53 IMPRESSION: 1. Increasing opacities in bilateral mid and lower lung zones consistent with worsening pneumonia. 2. Unchanged elevation the left hemidiaphragm. Labs Labs: Laboratory Results - last 24 hr 01/20/25 01/20/25 01/20/25 12:16 12:58 13:24 WBC 11.7 H RBC 5.16 Hgb 13.0 L Hct 42.3 MCV 82.0 MCH 25.2 L MCHC 30.7 L RDW 16.9 H Plt Count 347 MPV 9.1 Immature Gran % (Auto) 0.4 Neut % (Auto) 71.5 Lymph % (Auto) 17.2 L [place] % (Auto) 7.6 Eos % (Auto) 3.0 Baso % (Auto) 0.3 Lymph # (Auto) 2.02 [place] # (Auto) 0.9 H Eos # (Auto) 0.4 H Baso # (Auto) 0.0 Abs Immat Gran (auto) 0.05 H Absolute Neuts (auto) 8.4 H Absolute Nucleated RBC 0.000 Nucleated RBC % 0.0 Puncture Site Right radial ABG pH 7.363 ABG pCO2 53.4 H ABG pO2 91.4 ABG PO2/FiO2 Ratio 2.86 ABG HCO3 29.7 H ABG O2 Saturation 96.6 ABG O2 Content 18.8 ABG Base Excess 3.1 A-a Gradient 74.3 Oxyhemoglobin 95.6 Total Hemoglobin 13.9 O2 Delivery Device Nasal cannula O2 Liters/Min 3.0 FiO2 32 Sodium 141 Potassium 4.1 Chloride 102 Carbon Dioxide 30 Anion Gap 9 BUN 15 Creatinine 0.76 Estim Creat Clear Calc 78 Estimated GFR > 60 Glucose 104 Lactic Acid 0.8 Calcium 9.2 Magnesium 2.1 Total Bilirubin 0.4 AST 30 ALT 21 Alkaline Phosphatase 123 Troponin I < 0.012 NT-Pro-B Natriuret Pep 76 Total Protein 8.0 Albumin 4.0 Procalcitonin 0.1 Influenza A (RT-PCR) Negative Influenza B (RT-PCR) Negative RSV (RT-PCR) Negative SARS-CoV-2 RNA (RT-PCR) Negative 01/20/25 01/21/25 16:22 03:48 WBC 6.5 RBC 4.53 L Hgb 11.4 L Hct 38.0 L MCV 83.9 MCH 25.2 L MCHC 30.0 L RDW 16.5 H Plt Count 304 MPV 9.6 Immature Gran % (Auto) 0.5 Neut % (Auto) 86.9 H Lymph % (Auto) 7.1 L [place] % (Auto) 5.3 Eos % (Auto) 0.0 Baso % (Auto) 0.2 Lymph # (Auto) 0.46 L [place] # (Auto) 0.3 Eos # (Auto) 0.0 Baso # (Auto) 0.0 Abs Immat Gran (auto) 0.03 Absolute Neuts (auto) 5.6 Absolute Nucleated RBC 0.000 Nucleated RBC % 0.0 Puncture Site ABG pH ABG pCO2 ABG pO2 ABG PO2/FiO2 Ratio ABG HCO3 ABG O2 Saturation ABG O2 Content ABG Base Excess A-a Gradient Oxyhemoglobin Total Hemoglobin O2 Delivery Device O2 Liters/Min FiO2 Sodium 141 Potassium 4.7 Chloride 102 Carbon Dioxide 31 H Anion Gap 8 BUN 18 Creatinine 0.83 Estim Creat Clear Calc 73 Estimated GFR > 60 Glucose 134 H Lactic Acid Calcium 8.9 Magnesium Total Bilirubin AST ALT Alkaline Phosphatase Troponin I < 0.012 NT-Pro-B Natriuret Pep Total Protein Albumin Procalcitonin Influenza A (RT-PCR) Influenza B (RT-PCR) RSV (RT-PCR) SARS-CoV-2 RNA (RT-PCR) Quality VTE Prophylaxis VTE prophylaxis: pharmacologic ordered
[2025-01-21] MEDS: ENOXAPARIN 40 MG/0.4 ML SYRINGE SUB-Q (08:18)
[2025-01-21] MEDS: VITAMIN B COMPLEX CAPSULE 1 CAP PO (08:18)
[2025-01-21] MEDS: FERROUS SULFATE 325 MG TABLET DR BY MOUTH (08:18)
[2025-01-21] MEDS: DOCUSATE SODIUM 100 MG CAPSULE PO (08:18)
[2025-01-21] MEDS: PREGABALIN (*CRX) 75 MG CAPSULE 150 MG PO (08:18)
[2025-01-21] MEDS: MIDODRINE HCL 2.5 MG TABLET PO ×2 (08:18→16:39)
[2025-01-21] MEDS: ASPIRIN 81 MG ENTERIC TABLET PO (08:18)
[2025-01-21] MEDS: LIDOCAINE 5% PATCH 1 PATCH TOPICAL (08:19)
[2025-01-21] MEDS: buPROPion HCL XL (24 HR) 150 MG TABCR BY MOUTH (08:19)
[2025-01-21] MEDS: PANTOPRAZOLE 40 MG TABLET PO ×2 (08:19→16:39)
[2025-01-21] MEDS: PARoxetine 20 MG TABLET 40 MG BY MOUTH (08:24)
[2025-01-21] MEDS: ACETAMINOPHEN 325 MG TABLET 650 MG PO (08:31)
--- NOTE | 2025-01-21 10:43 | PCRCNOTE ---
Window of time for administration has passed. See next scheduled administration.
[2025-01-21 12:58] LABS: MRSA (PCR) NOT DETECTED (NOT DETECTE)
[2025-01-21] MEDS: guaiFENesin 600 MG/DEXTROMETHORPHAN 30 MG SR TAB 12 HR 1 TAB PO ×2 (13:03→20:55)
[2025-01-21] MEDS: AZITHROMYCIN 500 MG/NS 250 ML 500 MG/250 ML BAG 250 MG IVPB (14:14)
[2025-01-21] MEDS: levETIRAcetam 500 MG TABLET 1500 MG PO (20:51)
[2025-01-21] MEDS: traZODone HCL 50 MG TABLET 100 MG PO (20:53)
[2025-01-22] VITALS (20 sets, daily range): BP systolic 98–122; BP diastolic 60–75; PULSE 61–88; RESP 14–20; TEMP 36.2–36.6; O2SAT 94–99; BMI 22.1
[2025-01-22] MEDS: oxyCODONE (*CRX) 5 MG/5 ML ORAL SOLN IR 10 MG PO ×6 (01:03→20:51)
[2025-01-22] MEDS: CEFEPIME 2 GM/NS 50 ML 2 GM/50 ML BAG IVPB ×2 (01:04→13:19)
[2025-01-22] MEDS: IPRATROPIUM 0.5 MG/ALBUTEROL SULFATE 2.5 MG AMPUL.NEB 3 ML INHALATION ×4 (02:31→19:51)
[2025-01-22 05:03] LABS: Hematocrit 36.9 % (42.0-52.0); Hemoglobin 10.9 g/dL (14.0-18.0); Mean Corpuscular HGB Conc 29.5 g/dl (32-36); Mean Corpuscular Hemoglobin 24.9 pg (26-34); Mean Corpuscular Volume 84.4 fl (80-100); Mean Platelet Volume 9.6 fl (7.4-10.4); Platelet Count Result 308 k/mm3 (150-375); Red Blood Count 4.37 M/mm3 (4.6-6.20); Red Cell Distribution Width 16.6 % (11.5-14.5); White Blood Count 7.7 K/mm3 (4.5-10.0)
[2025-01-22 05:28] LABS: Alanine Aminotransferase 17 U/L (6-50); Albumin Level 3.3 g/dL (3.5-5.1); Alkaline Phosphatase 84 U/L (38-126); Anion Gap 8 mmol/L (4-12); Aspartate Amino Transferase 23 U/L (17-59); Bilirubin,Total 0.2 mg/dL (0.2-1.3); Blood Urea Nitrogen 21 mg/dL (9-20); Calcium 8.5 mg/dL (8.4-10.2); Carbon Dioxide 31 mmol/L (22-30); Chloride 103 mmol/L (98-107); Estimated CRCL calculation 59 ml/min; Estimated Glomerular Filt Rate > 60; Glucose 79 mg/dL (65-110); Sodium 142 mmol/L (137-145)
--- NOTE | 2025-01-22 07:05 | P.PNIM_ITS ---
Progress Note: A&P Assessment and Plan (1) Respiratory failure with hypoxia and hypercapnia: Code(s): J96.91 - Respiratory failure, unspecified with hypoxia; J96.92 - Respiratory failure, unspecified with hypercapnia Status: Acute Assessment and Plan: Unsure if patient is on chronic oxygen supplementation. Patient follows automatic nailing machine feeder Dr. Mosley. Last seen on 01/02/25. Per Dr. Cool note patient was not on any home oxygen during that visit however patient states he has worn oxygen since 11/2024. Currently on 1.5L NC, Wean oxygen as tolerated, maintain spo2 >90 Patient will need a home O2 eval prior to discharge Pulmonology consulted (2) Community acquired pneumonia: Code(s): J18.9 - Pneumonia, unspecified organism Status: Acute Assessment and Plan: Patient was previously seen in the ED on 01/18, at that time he was sating well on what he said was his chronic oxygen supplementation of 3L NC and was discharged home on a zpak and cefpodoxime. CXR 01/18: Elevation of the left hemidiaphragm with left-sided pleural effusion and adjacent compressive atelectasis. Chest CTA 01/18: No PE. Left basal pneumonia with minimal effusion and multiple patchy opacities in the left upper lobe and lingula suggestive of infection as well as a nodule in the left apical area and bilateral healing rib fractures. - Chest XR on admission : Increasing opacities in the bilateral mid and lower lung zones consistent with worsening pneumonia and unchanged elevation of the left hemidiaphragm. - Complicating Factors: COPD on chronic oxygen, hx of lobectomy - Antibiotics: azithromycin and cefepime started on 01/20 - Remains on oxygen supplementation of 1.5LNC. Keep SpO2 greater than 88% - Viral PCR: negative for Flu/COVID/RSV - MRSA negative - Blood cultures obtained on 01/20: NGTD - Send sputum cultures - IS and PEP therapy - legionella, mycoplasma and pneumococcal ordered. Previously positive for pneumococcal in urine on 11/14/24. - Monitor vital signs, I&Os, neuro status and patient is a fall risk - Follow WBC, serum electrolytes, temperature curves and cultures - Pulmonology consulted Lungs remain coarse, however patient weaned to 1.5LNC and notes shortness of breath is improving. (3) COPD (chronic obstructive pulmonary disease): Qualifiers: COPD type: unspecified COPD Qualified Code(s): J44.9 - Chronic obstructive pulmonary disease, unspecified Code(s): J44.9 - Chronic obstructive pulmonary disease, unspecified Status: Acute Assessment and Plan: Patient follows automatic nailing machine feeder Dr. Mosley. Last seen on 01/02/25. He was not on any home oxygen during that visit per chart review, however patient states he has been on 2L NC since 11/2024. Continue trelegy 100 and p.r.n. albuterol. Will hold on steroids at this time given patients current infection and no wheezing on auscultation Pulmonology consulted (4) Seizure: Code(s): R56.9 - Unspecified convulsions Status: Acute Assessment and Plan: Chronic, continue keppra (5) Hypotension: Qualifiers: Hypotension type: unspecified hypotension type Qualified Code(s): I95.9 - Hypotension, unspecified Code(s): I95.9 - Hypotension, unspecified Status: Acute Assessment and Plan: Chronic, continue midodrine 2.5 mg BID Blood pressures remain stable, continue to monitor (6) History of lung cancer: Code(s): Z85.118 - Personal history of other malignant neoplasm of bronchus and lung Status: Acute Assessment and Plan: Squamous cell carcinoma s/p right middle lobe lobectomy in 2019 Time Spent With Patient Time with patient: 25 - 35 minutes Subjective Date/time seen: 01/22/25 07:05 Interval history: 64 year old male with a past medical history of tobacco abuse, COPD on chronic 2L NC of oxygen supplementation, lung cancer s/p right middle lobe lobectomy in 2019, vitamin B 12 deficiency, iron deficiency anemia, gastric bypass in 2000, chronic pain, GERD, and hypotension presented to the hospital for worsening shortness of breath/dyspnea. Patient was previously seen in the ED on 01/18, at that time he was sating well on what he said was his chronic oxygen supplementation of 3L NC and was discharged home on a zpak and cefpodoxime. Patient follows automatic nailing machine feeder Dr. Mosley. Last seen on 01/02/25. Per Dr. Cool note patient was not on any home oxygen during that visit however patient states he has worn oxygen since 11/2024. Patient is pleasant sitting up comfortably in bed. He remains on 1.5 L nasal cannula and is continuing to be weaned at this time as SpO2 remained stable. He states that his shortness of breath is improving and continues to have a intermittently productive cough. He has no other complaints denies chest pain, palpitations, nausea/vomiting, and abdominal pain. Review of Systems Review of Systems: All systems reviewed & are unremarkable except as noted in HPI and below Exam Narrative: AF HR 67 RR 18 SpO2 96 BP 122/64 General: male in no acute respiratory distress who is nontoxic appearing, sitting up in bed. HEENT: Normocephalic. Atraumatic. Extraocular movement intact. Sclera clear and anicteric. No facial asymmetry. Chest: Lungs are coarse to auscultation bilaterally with bibasilar crackles. No wheezes. CV: Heart was regular rate and rhythm. S1/S2. No murmurs, gallops, or rubs. Abd: Abdomen was soft. Nontender. Nondistended. Positive bowel sounds. Ext: No clubbing, cyanosis, or edema. DP pulses bilaterally. Neuro: Patient is alert. Speech is clear. Objective Data Vital Signs Vital Signs: Vital Signs - 24 hr 01/21/25 08:19 01/21/25 08:19 01/21/25 12:00 Temperature Pulse Rate 70 102 H Respiratory Rate Blood Pressure Pulse Oximetry 100 Oxygen Delivery Nasal Cannula Oxygen Flow Rate 3 01/21/25 14:00 01/21/25 14:43 01/21/25 14:45 Temperature 97.5 F L Pulse Rate 89 84 84 Respiratory Rate 16 16 16 Blood Pressure 102/63 Pulse Oximetry 96 97 Oxygen Delivery Nasal Cannula Oxygen Flow Rate 3 01/21/25 16:00 01/21/25 16:37 01/21/25 19:56 Temperature 97.9 F Pulse Rate 70 82 75 Respiratory Rate 16 18 Blood Pressure 113/57 L 110/65 Pulse Oximetry 97 97 Oxygen Delivery Oxygen Flow Rate 01/21/25 20:00 01/21/25 20:48 01/21/25 20:51 Temperature Pulse Rate 72 72 72 Respiratory Rate 18 Blood Pressure Pulse Oximetry 96 Oxygen Delivery Nasal Cannula Oxygen Flow Rate 2 01/21/25 20:56 01/21/25 21:00 01/22/25 00:00 Temperature Pulse Rate 70 72 Respiratory Rate 18 Blood Pressure Pulse Oximetry 96 Oxygen Delivery Nasal Cannula Oxygen Flow Rate 2 01/22/25 02:31 01/22/25 02:40 01/22/25 04:00 Temperature Pulse Rate 64 65 63 Respiratory Rate 16 16 Blood Pressure Pulse Oximetry Oxygen Delivery Oxygen Flow Rate 01/22/25 05:48 Temperature 97.9 F Pulse Rate 61 Respiratory Rate 17 Blood Pressure 108/66 Pulse Oximetry 99 Oxygen Delivery Oxygen Flow Rate Intake/Output Intake/Output: Intake & Output 01/19/25 01/20/25 01/21/25 01/22/25 23:59 23:59 23:59 23:59 Intake Total 780 2510 200 Output Total 350 750 250 Balance 430 1760 -50 Meds/Results Medications: Active Medications Generic Name Dose Route Start Last Admin Trade Name Freq PRN Reason Stop Dose Admin Acetaminophen 650 mg 01/20/25 13:25 01/21/25 08:31 Acetaminophen 325 Mg Tablet PO 650 mg Q4H PRN Administration Mild Pain (1-3) or Fever Albuterol/Ipratropium 3 ml 01/20/25 14:00 01/22/25 02:31 Ipratropium 0.5 Mg/Albuterol Sulfate 2.5 Mg Ampul.Neb 3 Ml INHALATION 3 ml Q6HRT [facility] Administration Aspirin 81 mg 01/21/25 09:00 01/21/25 08:18 Aspirin 81 Mg Enteric Tablet PO 81 mg DAILY [facility] Administration Bupropion HCl 150 mg 01/21/25 09:00 01/21/25 08:19 Bupropion Hcl Xl (24 Hr) 150 Mg Tabcr BY MOUTH 150 mg DAILY [facility] Administration Docusate Sodium 100 mg 01/21/25 09:00 01/21/25 08:18 Docusate Sodium 100 Mg Capsule PO 100 mg DAILY [facility] Administration Enoxaparin Sodium 40 mg 01/21/25 09:00 01/21/25 08:18 Enoxaparin 40 Mg/0.4 Ml Syringe SUB-Q 40 mg DAILY [facility] Administration Ferrous Sulfate 325 mg 01/21/25 09:00 01/21/25 08:18 Ferrous Sulfate [address] BY MOUTH 325 mg DAILY [facility] Administration Fluticasone/Umeclidinium/Vilanterol 1 puff 01/21/25 09:00 01/21/25 10:45 Fluticasone/Umeclidin/Vilanter 100-62.5-25 Mcg Ellipta INHALATION Not Given DAILY [facility] Guaifenesin/Dextromethorphan 1 tab 01/21/25 12:30 01/21/25 20:55 Guaifenesin 600 Mg/Dextromethorphan 30 Mg Sr Tab 12 Hr PO 1 tab Q12HR [facility] Administration Azithromycin 500 mg in 250 mls @ 250 mls/hr 01/21/25 15:00 01/21/25 15:14 Zithromax IVPB Infused Q24H [facility] Infusion Cefepime HCl 2 gm in 50 mls @ 100 mls/hr 01/21/25 02:00 01/22/25 01:04 Maxipime 2 Gm/Ns 50 Ml IVPB 100 mls/hr Q12H [facility] Administration Levetiracetam 1,500 mg 01/20/25 21:00 01/21/25 20:51 Levetiracetam 500 Mg Tablet PO 1,500 mg QHS [facility] Administration Lidocaine 1 patch 01/21/25 09:00 01/21/25 08:19 Lidocaine 5% Patch TOPICAL 1 patch DAILY [facility] Administration Lorazepam 0.5 mg 01/20/25 15:43 01/20/25 20:56 Lorazepam (*Crx) 0.5 Mg Tablet PO 0.5 mg TID PRN Administration anxiety Midodrine 2.5 mg 01/20/25 17:00 01/21/25 16:39 Midodrine Hcl 2.5 Mg Tablet PO 2.5 mg BID [facility] Administration Oxycodone HCl 10 mg 01/20/25 17:00 01/22/25 04:52 Oxycodone (*Crx) 5 Mg/5 Ml Oral Soln Ir PO 10 mg Q4HR [facility] Administration Pantoprazole Sodium 40 mg 01/20/25 17:00 01/21/25 16:39 Pantoprazole 40 Mg Tablet PO 40 mg BID [facility] Administration Paroxetine HCl 40 mg 01/21/25 09:00 01/21/25 08:24 Paroxetine 20 Mg Tablet BY MOUTH 40 mg QAM [facility] Administration Pregabalin 150 mg 01/21/25 09:00 01/21/25 08:18 Pregabalin (*Crx) 75 Mg Capsule PO 150 mg DAILY [facility] Administration Tizanidine HCl 4 mg 01/20/25 15:43 Tizanidine Hcl 4 Mg Tablet PO TID PRN muscle spasticity Trazodone HCl 100 mg 01/20/25 21:00 01/21/25 20:53 Trazodone Hcl 50 Mg Tablet PO 100 mg QHS [facility] Administration Vitamin B Complex 1 cap 01/21/25 09:00 01/21/25 08:18 Vitamin B Complex Capsule PO 1 cap DAILY [facility] Administration Radiology Results: ITS Impressions Chest X-Ray 01/20/25 12:53 IMPRESSION: 1. Increasing opacities in bilateral mid and lower lung zones consistent with wo rsening pneumonia. 2. Unchanged elevation the left hemidiaphragm. Labs Labs: Laboratory Results - last 24 hr 01/21/25 01/22/25 11:44 04:24 WBC 7.7 RBC 4.37 L Hgb 10.9 L Hct 36.9 L MCV 84.4 MCH 24.9 L MCHC 29.5 L RDW 16.6 H Plt Count 308 MPV 9.6 Sodium 142 Potassium 4.0 Chloride 103 Carbon Dioxide 31 H Anion Gap 8 BUN 21 H Creatinine 1.05 Estim Creat Clear Calc 59 Estimated GFR > 60 Glucose 79 Calcium 8.5 Total Bilirubin 0.2 AST 23 ALT 17 Alkaline Phosphatase 84 Total Protein 7.0 Albumin 3.3 L Nasal MRSA (PCR) Not detected Quality VTE Prophylaxis VTE prophylaxis: pharmacologic ordered
[2025-01-22] MEDS: VITAMIN B COMPLEX CAPSULE 1 CAP PO (08:41)
[2025-01-22] MEDS: guaiFENesin 600 MG/DEXTROMETHORPHAN 30 MG SR TAB 12 HR 1 TAB PO ×2 (08:41→20:51)
[2025-01-22] MEDS: PREGABALIN (*CRX) 75 MG CAPSULE 150 MG PO (08:41)
[2025-01-22] MEDS: MIDODRINE HCL 2.5 MG TABLET PO ×2 (08:41→16:58)
[2025-01-22] MEDS: ASPIRIN 81 MG ENTERIC TABLET PO (08:41)
[2025-01-22] MEDS: PARoxetine 20 MG TABLET 40 MG BY MOUTH (08:41)
[2025-01-22] MEDS: FERROUS SULFATE 325 MG TABLET DR BY MOUTH (08:42)
[2025-01-22] MEDS: LIDOCAINE 5% PATCH 1 PATCH TOPICAL (08:42)
[2025-01-22] MEDS: PANTOPRAZOLE 40 MG TABLET PO ×2 (08:42→16:58)
[2025-01-22] MEDS: DOCUSATE SODIUM 100 MG CAPSULE PO (08:42)
[2025-01-22] MEDS: ENOXAPARIN 40 MG/0.4 ML SYRINGE SUB-Q (08:42)
[2025-01-22] MEDS: buPROPion HCL XL (24 HR) 150 MG TABCR BY MOUTH (08:42)
[2025-01-22] MEDS: ACETAMINOPHEN 325 MG TABLET 650 MG PO (11:15)
[2025-01-22] MEDS: AZITHROMYCIN 500 MG/NS 250 ML 500 MG/250 ML BAG 250 MG IVPB (14:21)
[2025-01-22] MEDS: traZODone HCL 50 MG TABLET 100 MG PO (20:51)
[2025-01-22] MEDS: levETIRAcetam 500 MG TABLET 1500 MG PO (20:51)
[2025-01-23] VITALS (22 sets, daily range): BP systolic 94–112; BP diastolic 56–65; PULSE 66–107; RESP 16–18; TEMP 36.4–36.5; O2SAT 87–96
[2025-01-23] MEDS: oxyCODONE (*CRX) 5 MG/5 ML ORAL SOLN IR 10 MG PO ×6 (01:18→20:40)
[2025-01-23] MEDS: CEFEPIME 2 GM/NS 50 ML 2 GM/50 ML BAG IVPB ×2 (01:18→13:06)
[2025-01-23] MEDS: IPRATROPIUM 0.5 MG/ALBUTEROL SULFATE 2.5 MG AMPUL.NEB 3 ML INHALATION ×4 (02:33→19:21)
[2025-01-23 05:26] LABS: Hematocrit 36.5 % (42.0-52.0); Hemoglobin 11.1 g/dL (14.0-18.0); Mean Corpuscular HGB Conc 30.4 g/dl (32-36); Mean Corpuscular Hemoglobin 25.3 pg (26-34); Mean Corpuscular Volume 83.1 fl (80-100); Mean Platelet Volume 9.4 fl (7.4-10.4); Platelet Count Result 300 k/mm3 (150-375); Red Blood Count 4.39 M/mm3 (4.6-6.20); Red Cell Distribution Width 16.7 % (11.5-14.5); White Blood Count 7.4 K/mm3 (4.5-10.0)
[2025-01-23 05:29] LABS: Alanine Aminotransferase 19 U/L (6-50); Albumin Level 3.2 g/dL (3.5-5.1); Alkaline Phosphatase 87 U/L (38-126); Anion Gap 4 mmol/L (4-12); Aspartate Amino Transferase 24 U/L (17-59); Bilirubin,Total 0.4 mg/dL (0.2-1.3); Blood Urea Nitrogen 19 mg/dL (9-20); Calcium 8.5 mg/dL (8.4-10.2); Carbon Dioxide 34 mmol/L (22-30); Chloride 101 mmol/L (98-107); Estimated CRCL calculation 65 ml/min; Estimated Glomerular Filt Rate > 60; Glucose 87 mg/dL (65-110); Potassium 3.9 mmol/L (3.4-5.0); Sodium 139 mmol/L (137-145)
[2025-01-23] MEDS: ACETAMINOPHEN 325 MG TABLET 650 MG PO ×2 (07:43→18:50)
[2025-01-23] MEDS: DOCUSATE SODIUM 100 MG CAPSULE PO (08:14)
[2025-01-23] MEDS: PARoxetine 20 MG TABLET 40 MG BY MOUTH (08:14)
[2025-01-23] MEDS: guaiFENesin 600 MG/DEXTROMETHORPHAN 30 MG SR TAB 12 HR 1 TAB PO ×2 (08:14→20:40)
[2025-01-23] MEDS: FERROUS SULFATE 325 MG TABLET DR BY MOUTH (08:14)
[2025-01-23] MEDS: ASPIRIN 81 MG ENTERIC TABLET PO (08:14)
[2025-01-23] MEDS: PREGABALIN (*CRX) 75 MG CAPSULE 150 MG PO (08:14)
[2025-01-23] MEDS: buPROPion HCL XL (24 HR) 150 MG TABCR BY MOUTH (08:14)
[2025-01-23] MEDS: ENOXAPARIN 40 MG/0.4 ML SYRINGE SUB-Q (08:14)
[2025-01-23] MEDS: PANTOPRAZOLE 40 MG TABLET PO ×2 (08:15→16:01)
[2025-01-23] MEDS: MIDODRINE HCL 2.5 MG TABLET PO ×2 (08:15→16:02)
[2025-01-23] MEDS: VITAMIN B COMPLEX CAPSULE 1 CAP PO (08:15)
--- NOTE | 2025-01-23 08:42 | PM.IMPN ---
Progress Note: A&P Assessment and Plan (1) Respiratory failure with hypoxia and hypercapnia: Code(s): J96.91 - Respiratory failure, unspecified with hypoxia; J96.92 - Respiratory failure, unspecified with hypercapnia Status: Acute Assessment and Plan: Unsure if patient is on chronic oxygen supplementation. Patient follows advertising traffic manager Dr. Mosley. Last seen on 01/02/25. Per Dr. Cool note patient was not on any home oxygen during that visit however patient states he has worn oxygen since 11/2024. Currently on 2L NC, Wean oxygen as tolerated, maintain spo2 >90 Patient will need a home O2 eval prior to discharge Patient requires 2L with activity and at rest Pulmonology consulted (2) Community acquired pneumonia: Code(s): J18.9 - Pneumonia, unspecified organism Status: Acute Assessment and Plan: Patient was previously seen in the ED on 01/18, at that time he was sating well on what he said was his chronic oxygen supplementation of 3L NC and was discharged home on a zpak and cefpodoxime. CXR 01/18: Elevation of the left hemidiaphragm with left-sided pleural effusion and adjacent compressive atelectasis. Chest CTA 01/18: No PE. Left basal pneumonia with minimal effusion and multiple patchy opacities in the left upper lobe and lingula suggestive of infection as well as a nodule in the left apical area and bilateral healing rib fractures. - Chest XR on admission : Increasing opacities in the bilateral mid and lower lung zones consistent with worsening pneumonia and unchanged elevation of the left hemidiaphragm. - Complicating Factors: COPD on chronic oxygen, hx of lobectomy - Antibiotics: azithromycin and cefepime started on 01/20, transitioned to oral levaquin on 01/23 - Remains on oxygen supplementation of 1.5LNC. Keep SpO2 greater than 88% - Viral PCR: negative for Flu/COVID/RSV. MRSA negative - Blood cultures obtained on 01/20: NGTD - Send sputum cultures - IS and PEP therapy - legionella, mycoplasma and pneumococcal ordered. Previously positive for pneumococcal in urine on 11/14/24. - Monitor vital signs, I&Os, neuro status and patient is a fall risk - Follow WBC, serum electrolytes, temperature curves and cultures - Pulmonology consulted (3) COPD (chronic obstructive pulmonary disease): Qualifiers: COPD type: unspecified COPD Qualified Code(s): J44.9 - Chronic obstructive pulmonary disease, unspecified Code(s): J44.9 - Chronic obstructive pulmonary disease, unspecified Status: Acute Assessment and Plan: Patient follows advertising traffic manager Dr. Mosley. Last seen on 01/02/25. He was not on any home oxygen during that visit per chart review, however patient states he has been on 2L NC since 11/2024. Continue trelegy 100 and p.r.n. albuterol. Will hold on steroids at this time given patients current infection and no wheezing on auscultation Pulmonology consulted (4) Seizure: Code(s): R56.9 - Unspecified convulsions Status: Acute Assessment and Plan: Chronic, continue keppra (5) Hypotension: Qualifiers: Hypotension type: unspecified hypotension type Qualified Code(s): I95.9 - Hypotension, unspecified Code(s): I95.9 - Hypotension, unspecified Status: Acute Assessment and Plan: Chronic, continue midodrine 2.5 mg BID Blood pressures remain stable, continue to monitor (6) History of lung cancer: Code(s): Z85.118 - Personal history of other malignant neoplasm of bronchus and lung Status: Acute Assessment and Plan: Squamous cell carcinoma s/p right middle lobe lobectomy in 2019 Time Spent With Patient Time with patient: 25 - 35 minutes Subjective Date/time seen: 01/23/25 08:42 Interval history: 64 year old male with a past medical history of tobacco abuse, COPD on chronic 2L NC of oxygen supplementation, lung cancer s/p right middle lobe lobectomy in 2019, vitamin B 12 deficiency, iron deficiency anemia, gastric bypass in 2000, chronic pain, GERD, and hypotension presented to the hospital for worsening shortness of breath/dyspnea. Patient was previously seen in the ED on 01/18, at that time he was sating well on what he said was his chronic oxygen supplementation of 3L NC and was discharged home on a zpak and cefpodoxime. Patient follows advertising traffic manager Dr. Mosley. Last seen on 01/02/25. Per Dr. Cool note patient was not on any home oxygen during that visit however patient states he has worn oxygen since 11/2024. Patient is pleasant lying comfortably in bed. He states that his shortness of breath and cough continues to improve. He underwent a home O2 evaluation and per respiratory therapy will required 2 L at rest and with activity. Patient continues to endorse severe headaches as well as increased fatigue and fogginess after waking up. Discussed patient with pulmonology and given that patient is on chronic oxygen and has a history of COPD will obtain a sleep study to further evaluate nocturnal O2 requirement verses JIMENA. Review of Systems Review of Systems: All systems reviewed & are unremarkable except as noted in HPI and below Exam Narrative: AF HR 94 RR 18 SPO2 92 2L NC BP 110/664 General: male in no acute respiratory distress who is nontoxic appearing, sitting up in bed. HEENT: Normocephalic. Atraumatic. Extraocular movement intact. Sclera clear and anicteric. No facial asymmetry. Chest: Lungs with bibasilar crackles and upper congestion. No wheezes. CV: Heart was regular rate and rhythm. S1/S2. No murmurs, gallops, or rubs. Abd: Abdomen was soft. Nontender. Nondistended. Positive bowel sounds. Ext: No clubbing, cyanosis, or edema. DP pulses bilaterally. Neuro: Patient is alert. Speech is clear. Objective Data Vital Signs Vital Signs: Vital Signs - 24 hr 01/22/25 12:00 01/22/25 14:00 01/22/25 14:52 Temperature Pulse Rate 67 65 61 Respiratory Rate 14 20 Blood Pressure 98/75 L Pulse Oximetry 98 Oxygen Delivery Oxygen Flow Rate 01/22/25 14:58 01/22/25 16:00 01/22/25 16:57 Temperature 97.5 F L Pulse Rate 64 88 86 Respiratory Rate 20 16 Blood Pressure 117/64 Pulse Oximetry 94 Oxygen Delivery Oxygen Flow Rate 01/22/25 19:51 01/22/25 20:00 01/22/25 20:00 Temperature Pulse Rate 85 65 Respiratory Rate 16 Blood Pressure Pulse Oximetry 96 Oxygen Delivery Nasal Cannula Oxygen Flow Rate 1 01/22/25 20:01 01/22/25 20:13 01/22/25 20:51 Temperature 97.7 F Pulse Rate 85 67 Respiratory Rate 16 18 Blood Pressure 113/60 Pulse Oximetry 97 98 Oxygen Delivery Nasal Cannula Oxygen Flow Rate 2 01/23/25 00:00 01/23/25 02:33 01/23/25 02:46 Temperature Pulse Rate 70 66 66 Respiratory Rate 16 16 Blood Pressure Pulse Oximetry Oxygen Delivery Oxygen Flow Rate 01/23/25 03:31 01/23/25 04:00 01/23/25 08:12 Temperature 97.7 F 97.5 F L Pulse Rate 71 72 70 Respiratory Rate 18 16 Blood Pressure 102/56 L 110/65 Pulse Oximetry 96 95 Oxygen Delivery Oxygen Flow Rate 01/23/25 08:20 01/23/25 08:20 01/23/25 08:28 Temperature Pulse Rate 76 72 Respiratory Rate 18 18 Blood Pressure Pulse Oximetry 90 Oxygen Delivery Nasal Cannula Oxygen Flow Rate 1 Intake/Output Intake/Output: Intake & Output 01/20/25 01/21/25 01/22/25 01/23/25 23:59 23:59 23:59 23:59 Intake Total 780 2510 990 290 Output Total 350 750 800 625 Balance 430 1760 190 -335 Meds/Results Medications: Active Medications Generic Name Dose Route Start Last Admin Trade Name Freq PRN Reason Stop Dose Admin Acetaminophen 650 mg 01/20/25 13:25 01/23/25 07:43 Acetaminophen 325 Mg Tablet PO 650 mg Q4H PRN Administration Mild Pain (1-3) or Fever Albuterol/Ipratropium 3 ml 01/20/25 14:00 01/23/25 08:20 Ipratropium 0.5 Mg/Albuterol Sulfate 2.5 Mg Ampul.Neb 3 Ml INHALATION 3 ml Q6HRT DANE Administration Aspirin 81 mg 01/21/25 09:00 01/23/25 08:14 Aspirin 81 Mg Enteric Tablet PO 81 mg DAILY DANE Administration Bupropion HCl 150 mg 01/21/25 09:00 01/23/25 08:14 Bupropion Hcl Xl (24 Hr) 150 Mg Tabcr BY MOUTH 150 mg DAILY DANE Administration Docusate Sodium 100 mg 01/21/25 09:00 01/23/25 08:14 Docusate Sodium 100 Mg Capsule PO 100 mg DAILY DANE Administration Enoxaparin Sodium 40 mg 01/21/25 09:00 01/23/25 08:14 Enoxaparin 40 Mg/0.4 Ml Syringe SUB-Q 40 mg DAILY DANE Administration Ferrous Sulfate 325 mg 01/21/25 09:00 01/23/25 08:14 Ferrous Sulfate [address] BY MOUTH 325 mg DAILY DANE Administration Fluticasone/Umeclidinium/Vilanterol 1 puff 01/21/25 09:00 01/23/25 08:27 Fluticasone/Umeclidin/Vilanter 100-62.5-25 Mcg Ellipta INHALATION 1 puff DAILY DANE Administration Guaifenesin/Dextromethorphan 1 tab 01/21/25 12:30 01/23/25 08:14 Guaifenesin 600 Mg/Dextromethorphan 30 Mg Sr Tab 12 Hr PO 1 tab Q12HR DANE Administration Azithromycin 500 mg in 250 mls @ 250 mls/hr 01/21/25 15:00 01/22/25 14:21 Zithromax IVPB 250 mls/hr Q24H DANE Administration Cefepime HCl 2 gm in 50 mls @ 100 mls/hr 01/21/25 02:00 01/23/25 01:18 Maxipime 2 Gm/Ns 50 Ml IVPB 100 mls/hr Q12H DANE Administration Levetiracetam 1,500 mg 01/20/25 21:00 01/22/25 20:51 Levetiracetam 500 Mg Tablet PO 1,500 mg QHS DANE Administration Lidocaine 1 patch 01/21/25 09:00 01/23/25 08:16 Lidocaine 5% Patch TOPICAL Not Given DAILY DANE Lorazepam 0.5 mg 01/20/25 15:43 01/20/25 20:56 Lorazepam (*Crx) 0.5 Mg Tablet PO 0.5 mg TID PRN Administration anxiety Midodrine 2.5 mg 01/20/25 17:00 01/23/25 08:15 Midodrine Hcl 2.5 Mg Tablet PO 2.5 mg BID DANE Administration Oxycodone HCl 10 mg 01/20/25 17:00 01/23/25 08:14 Oxycodone (*Crx) 5 Mg/5 Ml Oral Soln Ir PO 10 mg Q4HR DANE Administration Pantoprazole Sodium 40 mg 01/20/25 17:00 01/23/25 08:15 Pantoprazole 40 Mg Tablet PO 40 mg BID DANE Administration Paroxetine HCl 40 mg 01/21/25 09:00 01/23/25 08:14 Paroxetine 20 Mg Tablet BY MOUTH 40 mg QAM DANE Administration Pregabalin 150 mg 01/21/25 09:00 01/23/25 08:14 Pregabalin (*Crx) 75 Mg Capsule PO 150 mg DAILY DANE Administration Tizanidine HCl 4 mg 01/20/25 15:43 Tizanidine Hcl 4 Mg Tablet PO TID PRN muscle spasticity Trazodone HCl 100 mg 01/20/25 21:00 01/22/25 20:51 Trazodone Hcl 50 Mg Tablet PO 100 mg QHS DANE Administration Vitamin B Complex 1 cap 01/21/25 09:00 01/23/25 08:15 Vitamin B Complex Capsule PO 1 cap DAILY DANE Administration Radiology Results: ITS Impressions Chest X-Ray 01/20/25 12:53 IMPRESSION: 1. Increasing opacities in bilateral mid and lower lung zones consistent with worsening pneumonia. 2. Unchanged elevation the left hemidiaphragm. Labs Labs: Laboratory Results - last 24 hr 01/23/25 04:08 WBC 7.4 RBC 4.39 L Hgb 11.1 L Hct 36.5 L MCV 83.1 MCH 25.3 L MCHC 30.4 L RDW 16.7 H Plt Count 300 MPV 9.4 Sodium 139 Potassium 3.9 Chloride 101 Carbon Dioxide 34 H Anion Gap 4 BUN 19 Creatinine 0.96 Estim Creat Clear Calc 65 Estimated GFR > 60 Glucose 87 Calcium 8.5 Total Bilirubin 0.4 AST 24 ALT 19 Alkaline Phosphatase 87 Total Protein 7.0 Albumin 3.2 L Quality VTE Prophylaxis VTE prophylaxis: pharmacologic ordered
[2025-01-23] MEDS: FLUTICASONE/UMECLIDIN/VILANTER 100-62.5-25 MCG ELLIPTA 1 PUFF INHALATION (09:00)
--- NOTE | 2025-01-23 10:00 | P.CONPL_ITS ---
Assessment and Plan Assessment and plan (1) Community acquired pneumonia: Code(s): J18.9 - Pneumonia, unspecified organism Status: Acute Assessment and Plan: He appears to have recurrent pneumonia mainly on the left side. This is the area of his lung resection, 01/2020, T1N0M0, surgical treatment, squamous cell carcinoma. I agree with your antibiotics, and investigative studies. O2 was set p after December 03, 2024 discharge. He said that he was using 3 L/min around the clock. On RA today, he dropped to 87%. He has been on oxygen at home but he does need home oxygen study prior to discharge. I agree with continuing his current antibiotics. Sending a sputum sample will not help because he has been on these for several days. He has had recurrent pneumonia, was in the hospital from November to early December with multiple organisms, positive influenza a swab, strep pneumococcal urine antigen and for extended respiratory pathogen panel showed with human metapneumovirus (2) COPD (chronic obstructive pulmonary disease): Qualifiers: COPD type: unspecified COPD Qualified Code(s): J44.9 - Chronic obstructive pulmonary disease, unspecified Code(s): J44.9 - Chronic obstructive pulmonary disease, unspecified Status: Acute Assessment and Plan: In his home his usual treatment is Trelegy 1 puff a day and p.r.n. albuterol. He has not had pulmonary function studies since 2020. Will need these in a few weeks as a follow up to his prior studies. (3) Respiratory failure with hypoxia and hypercapnia: Code(s): J96.91 - Respiratory failure, unspecified with hypoxia; J96.92 - Respiratory failure, unspecified with hypercapnia Status: Acute Assessment and Plan: PCO2 this admission was 53, his serum bicarbonates on the chemistry is running between 32 and 34 which is consistent with chronic hypercapnia. He needs at least 1 L at rest, will have home oxygen study prior to discharge. [facility] tonight- determine needs for O2 with sleep. (4) Personal history of nicotine dependence: Code(s): Z87.891 - Personal history of nicotine dependence Status: Acute Assessment and Plan: 50 pack years, quit 11/13/2024 Plan plan: no discharge today; he is better compared to admission [facility] tonight Home O2 study prior to discharge Continue to treat for community-acquired pneumonia in a compromised host Continue to treat his COPD Discussed with hospitalist, Melissa Martinez History of Present Illness History of Present Illness Consult date: 01/23/25 Requesting physician: Keisha Martinez, [facility] Chief complaint: Pneumonia Narrative: pt was seen January 23, 2025 10:00 am Room 242 NEW: Kiran Smith is 64 years old, known to our service, COPD and previous lung resection for lung cancer post right middle lobe lobectomy in 01/23/2020 , was in-patient in [place] for acute respiratory failure due to influenza A, human metapneumovirus (hMPV), Strep pneumo; was sent home December 04 using oxygen, O2 3 L around the clock according to the patient. He saw Dr Mosley January 02 in the office, was stable. He was using O2 at home at the time. He was re-admitted January 20, was in the ER on January 18 saying that he could not breathe, was at Dr. Zelaya office had his oxygen turned up from 3 L to 4 L. Initial white count was 6.9, peaked at 11.6 and today 7.4. He says he feels much better compared to admission. He is still expectorating tannish thick sputum. His chest CT this admission 01/20 is much improved compared to his November [address] with severe widespread left-sided pneumonia. Currently is on azithromycin and cefepime started on 01/20. He is now saying that he is having morning headaches when he wakes. Vaccinations : he is a never-vaccinated person, buddhism exemption. Tobacco: stopped in Nov 2024, had a 50 pack year history. 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 He wore respiratory protection when he was grinding. He retired 4-5 years ago. DATA * 01/20/25 CXR = Increasing opacities in bilateral mid and lower lung zones consistent with worsening pneumonia. Unchanged elevation the left hemidiaphragm. * 01/18/25 CTA : No pulmonary embolism. Left basal pneumonia with minimal effusion. Multiple patchy opacities in the left upper lobe and lingula suggestive of infection. Follow-up advised. Right renal cyst. Nodule in the left apical area. [address] follow-up advised. Bilateral healing rib fractures. * 01/20/25 ABG 7.36/53.4/91.4/29.7/90 5% on 3 L * 11/27/[address] : Widespread pneumonia, left worse than right. Mucous plugging in left mainstem bronchus. 14 mm nodule in right lung lower lobe suspicious for primary bronchogenic carcinoma or metastatic disease. Mild emphysema. * 11/21/2024; echo =LV normal; LVEF systolic function is normal, estimated at 55- 60%. The left ventricular diastolic function is grade I diastolic dysfunction. Right ventricular systolic function is normal. Biatrial enlargement, mild. Left atrial chamber dimension is mildly enlarged. Right atrial chamber dimension is mildly enlarged. No significant valvular disease. * 06/17/2021; 6MW, did not require O2, walked 274 meters, less than expected for age. * 06/17/2021 PFT; Impression: There is a moderately severe obstructive abnormality without significant improvement after inhaling a single dose of albuterol. The lung volumes are normal. The absolute diffusing capacity is moderately decreased and normalizes when corrected for alveolar volume. 06/17/2021 after bronchodilator FVC 3.331 L 75% 3.44 L, +4% FEV1 1.71 L, 50% 1.79 L, +5% FEV1/FVC 52% SQS57-70% TLC 5.86 L, 86% RV 2.56 L, 115% FRC 3.47 L, 98% RV/TLC DLCO 14.6, 53% DLCO/VA 3.41, 80% = ==== 01/02/2025: This is the first pulmonary clinic encounter following inpatient hospital consultation for GOLD grade 2 COPD, influenza A and hypoxemic respiratory failure. 64-year-old with a history of tobacco use, COPD, stage IA lung cancer status post right upper lobectomy 01/23/2020, gastric bypass 2000, GERD. Regarding his lung cancer the patient had a right upper lobectomy with negative lymph nodes on 01/23/2020. He received no additional treatment. He is followed by Dr. Zelaya and had a CT scan on 07/10/2024 with emphysema and no evidence of malignancy with recommendation to repeat in 1 year. Regarding his COPD. Patient smoked tobacco from age 14 to current at 1 pack per day for a total of 50 pack years. He was exposed to secondhand smoke from his father. 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 He retired 4-5 years ago. He is not on any home oxygen. He is maintained on Trelegy 100 and p.r.n. albuterol. 11/13/2024 through 12/04/2024: Patient admitted to the hospital with influenza A, hypoxemic respiratory failure, and left lower lobe postobstructive pneumonia. Treated with ceftriaxone, azithromycin and Flagyl. Urine streptococcal antigen positive. Patient decompensated on 11/17 with new right-sided infiltrate and changed to levofloxacin and Flagyl. At his worse he required Vapotherm 45 L and 100% FiO2. Extended respiratory pathogen panel demonstrated metapneumovirus. 11/21/2024: ABG on Airvo 100% and 45 L 7.45/44/57. Repeat CT scan on 11/27/24 with pneumonia left greater than right and mild emphysema. Patient improved and discharged home on Trelegy 100, p.r.n. albuterol inhaler, 2 L at rest and 2 L with activity, 2 L at night. Patient walk 60 ft with a wheeled walker with physical therapy on 12/04/24. Today he tells me that is had no hospitalizations since 12/04/2024 and no exacerbations. Since discharge the patient has been getting a little stronger each day. He tells me When he left the hospital he could walk 10 ft and currently he can walk 25 ft. he has a cough with phlegm production 3 to 4 times a day described as brown and reardon, no hemoptysis. Overall he feels that he is 70-75% back to his normal. At baseline is tells me he could walk a quarter of a block. He denies fever, chills, rigors. Patient is currently wearing 2 L at rest with saturations 91-92%. 2 L with activity with saturations 86-88% and 2 L with sleep. The patient is taking Trelegy 100 and rescue albuterol 1 time a day. Patient's CAT score today is 24. Patient quit smoking on 11/13/2024. Patient is not exposed to secondhand smoke. Patient tells me he is unwilling to receive influenza vaccine, COVID booster RSV vaccine for buddhism purposes. Patient does not know when he is following up with Oncology. DATA: 12/04/2023: Overnight oximetry on 2 L NC: with recording duration 7 hr 13 minutes, average saturation 95%, low saturation 89%, time with saturation less than or equal to 88% was 0 minutes. Oxygen desaturation index 1.3. 12/04/2024: Home O2 assessment, rest room air saturation 86%. Rest nasal cannula 1 L saturation 87%. Rest nasal cannula 2 L saturation 92%. Exercise nasal cannula 2 L saturation 91%. 11/27/24: EXAMINATION:CT diagnostic chest wo con INDICATION: Pneumonia. COMPARISON: Chest CT 11/24/2024, 07/10/2024, 02/04/21 FINDINGS: There is mild emphysema. There are groundglass opacities and septal thickening in right upper lobe and right lower lobe. 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 There is volume loss of left hemithorax. There is mucous plugging in left mainstem bronchus. There are airspace opacities and nodules throughout left lung. A calcified left lung nodule and calcified left hilar lymph nodes are consistent with old granulomatous disease. There is a 14 mm nodule in right lower lobe. There are trace pleural effusions. The heart size is normal. There are coronary artery calcifications. No pericardial effusion. There is mild mediastinal lymphadenopathy, likely reactive. Calcifications in the liver and spleen are consistent with old granulomatous disease. There is a 3.5 cm cyst in right kidney. There are surgical changes of the stomach. Epidural electrodes are noted. There is severe cervical spondylosis and mild thoracic spondylosis. There are chronic compression fractures of T12 and L1. There is mild chronic anterior wedging of multiple vertebral bodies. IMPRESSION: 1. Widespread pneumonia, left worse than right. 2. Mucous plugging in left mainstem bronchus. 3. 14 mm nodule in right lung lower lobe suspicious for primary bronchogenic carcinoma or metastatic disease. 4. Mild emphysema. 11/24/24: Clinical Indication: SOB, tachycardia CT Scan of the Chest with Contrast: COMPARISON: 11/20/2024 Findings: There is no evidence of any significant mediastinal, hilar or axillary lymphadenopathy. There is no filling defect in the pulmonary arterial tree to suggest pulmonary embolus. There is no evidence of aortic dissection or aneurysm. There is no evidence of pleural or pericardial effusion. Extensive ground glass opacity and patchy consolidation the right lung is overall mildly improved from prior exam. There is complete left lower lobe atelectasis. Patchy tree-in-bud opacities or nodularity in the left upper lobe are again present, overall similar to prior exam. There is probable background chronic interstitial change at the right lung base, right lower lobe. There is mild emphysema. Images through the upper abdomen reveal no abnormalities. Stable mild T12 compression fracture. Impression: No evidence of pulmonary embolus, aortic dissection, or aortic aneurysm. Mild interval improvement in extensive right lung pneumonia/groundglass pulmonary disease. Complete left lower lobe atelectasis. Patchy small airways infection throughout the left upper lobe with extensive tree-in-bud opacities and nodularity similar to prior exam. Probable underlying chronic interstitial change extensively in the right lung base, especially right lower lobe. Mild emphysema. 11/21/24: Echo Summary 1. Technically difficult study with limited views. 2. Left ventricular chamber dimension is normal. 3. Left ventricular systolic function is normal, estimated at 55-60%. 4. The left ventricular diastolic function is grade I diastolic dysfunction. 5. Right ventricular systolic function is normal. 6. Left atrial chamber dimension is mildly enlarged. 7. Right atrial chamber dimension is mildly enlarged. 8. No significant valvular disease. Left ventricular systolic function is normal, estimated at 55-60%. There is no increased left ventricular wall thickness. The left ventricular diastolic function is grade I diastolic dysfunction. Right Ventricle Right ventricular chamber dimension is normal. Right ventricular systolic function is normal. Right Atria Right atrial chamber dimension is mildly enlarged. Atrial Septum Intact interatrial septum visualized by color flow imaging. Tricuspid peak gradient 42. 11/20/24 EXAMINATION:CT diagnostic chest wo con INDICATION: Pneumonia. COMPARISON: Chest CT 11/13/2024 FINDINGS: There is mild emphysema. There is elevation of left hemidiaphragm. There are widespread groundglass opacities and airspace opacities in right upper lobe and right lower lobe. 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 There are airspace opacities with volume loss in inferior left lung. There are centrilobular nodules and tree-in-bud opacities in left upper lobe and left lower lobe. A calcified left lung nodule and calcified left hilar and mediastinal lymph nodes are consistent with old granulomatous disease. There is bilateral pleural thickening. No significant pleural effusion. There is left atrial enlargement of the heart. There are coronary artery calcifications. No pericardial effusion. Calcifications in the liver and spleen are consistent with old granulomatous disease. There is a 3.8 cm cyst in right kidney. There are surgical changes of the stomach. Epidural electrodes are noted. There is severe cervical spondylosis and mild thoracic spondylosis. There is mild chronic anterior wedging of T10-L1 vertebral bodies. IMPRESSION: 1. Diffuse lung disease with worsening on the right and improvement on the left, consistent with pneumonia. 2. Mild emphysema. 11/19/2024: Alpha 1 anti trypsin genotype CM. Alpha 1 anti trypsin level 237, normal. 11/13/24: EXAMINATION: CTA chest PE protocol INDICATION: Elevated d-dimer with SOB. Personal history of right-sided lung cancer post right middle lobectomy in 2019 with negative margins. COMPARISON: 07/10/2024 FINDINGS/OBSERVATIONS: PULMONARY ARTERIES: No filling defect is identified within the main or proximal pulmonary artery. The main pulmonary artery is not enlarged. THORACIC AORTA: No aneurysmal dilatation or dissection is present. The great vessels are intact LUNGS: Patchy groundglass opacification detected bilaterally, possibly infectious in origin. The left descending bronchus is largely obscured for which direct visualization is recommended. Post obstructive consolidation is noted, involving the entirety of the left lower lobe. Panlobular emphysematous disease is also noted. Biapical scarring is present. Postoperative change within the right hilum, consistent with patient's history. MEDIASTINUM: Mediastinal lymphadenopathy is identified within the aortopulmonary window and the left paratracheal region. The largest lymph node is within the left paratracheal region measuring 12 mm in short axis dimension. Multiple calcified lymph nodes are also detected within the mediastinum, suggesting prior granulomatous disease. BONES OF THE CHEST: No acute fracture. No significant degenerative disease. No lytic or blastic lesions. Leads from a stimulator device are identified within the canal. HEART: The heart is borderline enlarged, without pericardial effusion. IMPRESSION: No pulmonary embolus. No thoracic aortic dissection. Obstruction of the left lower lobe bronchus with postobstructive consolidation for which direct visualization is recommended. Additional findings within the remainder of the left as well as the remaining right lung for which infectious etiology is favored. 07/10/24: Clinical Indication: Lung cancer CT Scan of the Chest with Contrast: COMPARISON: 02/06/2022 Findings: There is no evidence of any significant mediastinal, hilar or axillary lymphadenopathy. There is no filling defect in the pulmonary arterial tree to suggest pulmonary embolus. There is no evidence of aortic dissection or aneurysm. There is no evidence of pleural or pericardial effusion. Status post right middle lobectomy. There is biapical scarring, unchanged. Paraseptal emphysema is unchanged, predominantly in the upper lobes. Stable scarring at the inferior right upper lobe. There is left basilar consolidation, presumably atelectasis. Images through the upper abdomen reveal probable prior bariatric surgery. There are mild compression fractures of L1 and L2, age indeterminate. Impression: No evidence of active malignancy or metastatic disease. Status post right middle lobectomy. Emphysema and scarring, as above. Probable left basilar atelectasis versus possibly pneumonia. Compression fractures of L1-L2, age indeterminate, new since prior exam. 05/09/2024: Echo Summary 1. Left ventricular chamber dimension is normal. 2. Left ventricular systolic function is normal, estimated at 60-65%. 3. The left ventricular diastolic function is grade I diastolic dysfunction. 4. E/e' 6 is not elevated. 5. There is trace tricuspid valve regurgitation. 6. No pulmonary hypertension, estimated pulmonary arterial systolic pressure is 19 mmHg. Right Ventricle Right ventricular systolic function is normal and with normal TAPSE 3.2 cm. Right ventricular chamber dimension is normal. Right Atria Right atrial chamber dimension is normal. Atrial Septum Agitated saline injection with and without Valsalva maneuver opacified right side cardiac chambers without shunt to left side cardiac chambers. Intact interatrial septum visualized by 2D and agitated saline imaging. 06/17/2021 This is a pulmonary function test with pre and post-bronchodilator spirometry, plethysmography and diffusing capacity. The test was performed and results interpreted in accordance with the 2019 and 2005 ATS/ERS Task Force guidelines respectively using the Global Lung Function Initiative-2012 reference equations. Patient demonstrated good effort and cooperation. Reproducibility criteria were met. The quality of the pre bronchodilator spirometry maneuver was Grade A and post bronchodilator spirometry maneuver was Grade A. Findings: Spirometry: there is decreased maximal expiratory airflow at all lung volumes with concave expiratory flow tracing. The contour of the inspiratory flow tracing is normal. The pre bronchodilator FVC is 3.31 L, 75% predicted. The pre bronchodilator FEV1 is 1.71 L, 50% predicted. The FEV1: FVC ratio is 52%. The post bronchodilator FVC is 3.44 L, representing a 4% increase. The post bronchodilator FEV1 is 1.79 L, representing a 5% increase. Plethysmography: The total lung capacity is 5.86 L, 86% predicted. The functional residual capacity is 3.47 L, 98% predicted. The residual volume is 2.56 L, 115% predicted. Diffusion capacity: The absolute diffusion capacity is 14.6, 53% predicted. The diffusing capacity corrected for alveolar volume is 3.41, 80% predicted. Impression: There is a moderately severe obstructive abnormality without significant improvement after inhaling a single dose of albuterol. The lung volumes are normal. The absolute diffusing capacity is moderately decreased and normalizes when corrected for alveolar volume. There are no prior studies for comparison [facility] Past Medical History Medical History BMI 26.0-26.9,adult Facial rash Impaired functional mobility, balance, gait, and endurance Facial droop Bowel perforation Crushing injury leg Encounter for Medicare annual wellness exam BMI 24.0-24.9, adult Hypotension Tibial fracture Absence seizure Borderline abnormal TFTs Vitamin B2 deficiency Vitamin B1 deficiency Cognitive changes Tremor Acute nonintractable headache Chronic fatigue Change in vision BMI 22.0-22.9, adult Back pain Cervicalgia BMI 32.0-32.9,adult NAVARRETE (dyspnea on exertion) BMI 31.0-31.9,adult Encounter for routine adult health examination with abnormal findings BMI 30.0-30.9,adult Hearing loss Myopia BMI 29.0-29.9,adult Encounter for preventive health examination Breast tenderness in male Vitamin D deficiency Squamous cell carcinoma BMI 25.0-25.9,adult Encounter for routine adult health examination with abnormal findings Tobacco abuse Shortness of Breath Hemoptysis DJD (degenerative joint disease) Hematuria GERD (gastroesophageal reflux disease) BMI 27.0-27.9,adult Encounter for routine adult health examination without abnormal findings COPD (chronic obstructive pulmonary disease) Follow up Personal history of nicotine dependence Hematoma Chronic low back pain Ataxia CTS (carpal tunnel syndrome) Vitamin B12 deficiency On retirement drug therapy Iron deficiency anemia Hearing loss of both ears Surgical History Surgical History S/P pneumonectomy Previous back surgery x6 Hx of gastric bypass Family History Family History (Updated 01/20/25 @ 15:20 by Albin Quiñones RN) Father Family history of heart disease in male family member before age 55 Family history of cardiovascular disease Hypertension Mother Family history of heart disease in male family member before age 55 Family history of cardiovascular disease Family history of diabetes mellitus in first degree relative Family history of malignant neoplasm of brain Hypertension Social History Social History Smoking packs per day: 2 Smoking cigarettes per day: 40.0 Years smoked: 40 Smoking pack-years: 80.00 Smoking status: Former smoker Tobacco type: cigarettes Second hand tobacco smoke exposure: No Smoking end date: 02/02/20 Additional smoking assessment comments: pt. doesn't know when he stopped smoking cigarettes Alcohol intake: never Substance use: never Substance use type: marijuana Other substance usage details: Gummies Last use: 11/13/24 Do You Feel Safe in your Home?: Yes Lack of Transportation: No Lack of Food: Never True Current Housing: I Have Housing Concerned About Future Housing: No Difficulty Paying Gas/Electric Bills: No Difficulty Paying for Meds: No Currently Unemployed: No Education: High School Diploma/GED Difficulty w/ Childcare or Family Care: No Living arrangements: with family Occupation/Education: unemployed Gender identity (if verbalized by the patient): Male Spiritual care concerns: No Meds Home Medications and Allergies Home Medications ?Medication ?Instructions ?Recorded ?Confirmed ?Type lidocaine 5 % topical patch 1 patch topical DAILY 08/17/19 01/20/25 History mv-folic acid 200 mcg-D3 300 1 tablet PO DAILY 08/17/19 01/20/25 History unit-K2 20 xis-cxvztokd-azug#222 tablet (Stages Men's Multi-Vitamin) omeprazole 20 mg capsule,delayed 20 mg PO BID 08/17/19 01/20/25 History release pregabalin 150 mg capsule (Lyrica) 150 mg PO DAILY 05/15/20 01/20/25 History ferrous sulfate 325 mg (65 mg 325 mg PO DAILY 01/28/23 01/20/25 History iron) tablet oxycodone 10 mg/0.5 mL oral 10 mg PO Q4H 10/13/23 01/20/25 History syringe (FOR ORAL USE ONLY) tizanidine 4 mg capsule 4 mg PO TID PRN muscle spasticity 10/13/23 01/20/25 Rx #30 caps albuterol sulfate 90 mcg/actuation See Rx Instructions .Route 04/11/24 01/20/25 Rx aerosol inhaler .COMPLEX #8.5 ea aspirin 81 mg tablet,delayed 81 mg PO DAILY 04/26/24 01/20/25 History release (Adult Low Dose Aspirin) vitamin B complex 1 tablet PO DAILY 04/26/24 01/20/25 History midodrine 2.5 mg tablet 2.5 mg PO BID #180 tabs 07/03/24 01/20/25 Rx paroxetine HCl 40 mg tablet See Rx Instructions .Route 07/13/24 01/20/25 Rx .COMPLEX #90 tabs cyanocobalamin (vitamin B-12) See Rx Instructions .Route 09/28/24 01/20/25 Rx 1,000 mcg/mL injection solution .COMPLEX #3 mL syringe with needle 3 mL 25 gauge See Rx Instructions .Route 09/28/24 01/20/25 Rx x 1 (BD Luer-Collin Syringe) .COMPLEX #3 ea trazodone 50 mg tablet 100 mg PO QHS 11/14/24 01/20/25 History Trelegy Ellipta 100 mcg-62.5 1 inh inhalation DAILY #60 ea 12/07/24 01/20/25 Rx mcg-25 mcg powder for inhalation (gasjrksfrxu-hqfwlcxjx-zqnjkmtc) bupropion HCl 300 mg 24 hr tablet, See Rx Instructions .Route 12/07/24 01/20/25 Rx extended release .COMPLEX #90 tabs levetiracetam 500 mg 1,500 mg (3 x 500 mg) PO QHS #300 01/02/25 01/20/25 Rx tablet,extended release 24 hr tabs albuterol sulfate 1.25 mg/3 mL 1.25 mg (3 mL) inhalation Q4H #75 01/18/25 01/20/25 Rx solution for nebulization mL azithromycin 250 mg tablet See Rx Instructions PO .COMPLEX #6 01/18/25 01/20/25 Rx tabs cefpodoxime 200 mg tablet 200 mg PO Q12H 7 days #14 tabs 01/18/25 01/20/25 Rx lorazepam 0.5 mg tablet 0.5 mg PO TID PRN anxiety 01/20/25 01/20/25 History Allergies Allergy/AdvReac Type Severity Reaction Status Date / Time Penicillins Allergy Unknown Itching Verified 01/20/25 15:21 Vital Signs Vital Signs - 24 hr 01/22/25 12:00 01/22/25 14:00 01/22/25 14:52 Temperature Pulse Rate 67 65 61 Respiratory Rate 14 20 Blood Pressure 98/75 L Pulse Oximetry 98 Oxygen Delivery Oxygen Flow Rate 01/22/25 14:58 01/22/25 16:00 01/22/25 16:57 Temperature 36.4 C L Pulse Rate 64 88 86 Respiratory Rate 20 16 Blood Pressure 117/64 Pulse Oximetry 94 Oxygen Delivery Oxygen Flow Rate 01/22/25 19:51 01/22/25 20:00 01/22/25 20:00 Temperature Pulse Rate 85 65 Respiratory Rate 16 Blood Pressure Pulse Oximetry 96 Oxygen Delivery Nasal Cannula Oxygen Flow Rate 1 01/22/25 20:01 01/22/25 20:13 01/22/25 20:51 Temperature 36.5 C Pulse Rate 85 67 Respiratory Rate 16 18 Blood Pressure 113/60 Pulse Oximetry 97 98 Oxygen Delivery Nasal Cannula Oxygen Flow Rate 2 01/23/25 00:00 01/23/25 02:33 01/23/25 02:46 Temperature Pulse Rate 70 66 66 Respiratory Rate 16 16 Blood Pressure Pulse Oximetry Oxygen Delivery Oxygen Flow Rate 01/23/25 03:31 01/23/25 04:00 01/23/25 08:12 Temperature 36.5 C 36.4 C L Pulse Rate 71 72 70 Respiratory Rate 18 16 Blood Pressure 102/56 L 110/65 Pulse Oximetry 96 95 Oxygen Delivery Oxygen Flow Rate 01/23/25 08:14 01/23/25 08:14 01/23/25 08:20 Temperature Pulse Rate 68 Respiratory Rate Blood Pressure Pulse Oximetry 95 90 Oxygen Delivery Nasal Cannula Nasal Cannula Oxygen Flow Rate 1 1 01/23/25 08:20 01/23/25 08:28 Temperature Pulse Rate 76 72 Respiratory Rate 18 18 Blood Pressure Pulse Oximetry Oxygen Delivery Oxygen Flow Rate Exam 2 Narrative: GEN: Alert, oriented, not in distress. Sat on room air was 87%, not in distress. O2 was placed on again at 1 L/min. HEENT: pupils are equal, EOMI, symmetrical face; oral membranes moist, Mallampati II airway, no oral lesions. NECK: Trachea is midline CHEST: Equal air entry, symmetric excursion, decreased breath sounds, scar on right back from lung surgery, few crackles without wheezes. CV: Regular S1S2 no m/g/r ABD : (+) bowel sounds Extremities : no clubbing, cyanosis, or edema PSYCH: She answers questions slowly, he says that he has not been thinking as well recently. Gait is not tested. Results Laboratory Findings 01/23/25 04:08 01/23/25 04:08 ABG, PT/INR, D-dimer: ABG ABG pH 7.363 (7.350-7.450) 01/20/25 12:58 ABG pCO2 53.4 mmHg (35.0-45.0) H 01/20/25 12:58 ABG pO2 91.4 mmHg (80.0-100.0) 01/20/25 12:58 ABG O2 Saturation 96.6 % (95.0-100.0) 01/20/25 12:58 Abnormal lab findings: Abnormal Labs 01/20/25 01/20/25 01/21/25 12:16 12:58 03:48 WBC 11.7 H RBC 4.53 L Hgb 13.0 L 11.4 L Hct 38.0 L MCH 25.2 L 25.2 L MCHC 30.7 L 30.0 L RDW 16.9 H 16.5 H Neut % (Auto) 86.9 H Lymph % (Auto) 17.2 L 7.1 L Lymph # (Auto) 0.46 L Mcdonough # (Auto) 0.9 H Eos # (Auto) 0.4 H Abs Immat Gran (auto) 0.05 H Absolute Neuts (auto) 8.4 H ABG pCO2 53.4 H ABG HCO3 29.7 H Carbon Dioxide 31 H BUN Glucose 134 H Albumin 01/22/25 01/23/25 04:24 04:08 WBC RBC 4.37 L 4.39 L Hgb 10.9 L 11.1 L Hct 36.9 L 36.5 L MCH 24.9 L 25.3 L MCHC 29.5 L 30.4 L RDW 16.6 H 16.7 H Neut % (Auto) Lymph % (Auto) Lymph # (Auto) Mcdonough # (Auto) Eos # (Auto) Abs Immat Gran (auto) Absolute Neuts (auto) ABG pCO2 ABG HCO3 Carbon Dioxide 31 H 34 H BUN 21 H Glucose Albumin 3.3 L 3.2 L
--- NOTE | 2025-01-23 11:15 | HOMEO2EVAL ---
Evaluation was performed at [facility] Home Oxygen Evaluation RC: Home Oxygen (O2) Evaluation Start: 01/23/25 10:37 Freq: ONCE Status: Active Protocol: RPE Activity Type Activity Date Activity User E-sign Co-sign Detail Recorded Client Recorded Date Recorded By Document 01/23/25 11:00 [email or web address] [email or web address] 01/23/25 11:15 CLC Document 01/23/25 11:05 [email or web address] [email or web address] 01/23/25 11:15 CLC Document 01/23/25 11:07 [email or web address] [email or web address] 01/23/25 11:15 CLC Document 01/23/25 11:10 [email or web address] [email or web address] 01/23/25 11:15 CLC 01/23/25 01/23/25 01/23/25 11:00 11:05 11:07 Home O2 Evaluation [Oxygen] -Test Phase Resting Exercise Exercise -Oxygen Delivery Room Air Room Air Nasal Cannula -Oxygen Flow Rate (L/min) 1 [Pulse Oximetry] -Pulse Oximetry (90-100 %) 91 87 L 88 L [Pulse Rate] -Pulse Rate (60-100 beats/min) 79 107 H 105 H [Evaluation] -Activity Tolerance Good [Exercise] -Ambulation Distance (feet) 200 -Ambulation Distance (meters) 60.95 [Charges] -Evaluation Charges O2 Evaluation by 01/23/25 11:10 Home O2 Evaluation [Oxygen] -Test Phase Exercise -Oxygen Delivery Nasal Cannula -Oxygen Flow Rate (L/min) 2 [Pulse Oximetry] -Pulse Oximetry (90-100 %) 92 [Pulse Rate] -Pulse Rate (60-100 beats/min) 94 [Evaluation] -Activity Tolerance [Exercise] -Ambulation Distance (feet) -Ambulation Distance (meters) [Charges] -Evaluation Charges
--- NOTE | 2025-01-23 11:15 | PCRCNOTE ---
Home oxygen evaluation completed. Patient requires 2 lpm with activity and room air at rest. Patient notified of oxygen requirements.
[2025-01-23 12:05] LABS: Glucose Point of Care 110 mg/dl (65-105)
[2025-01-23] MEDS: polyethylene glycoL 3350 17 GM POWD.PACK PO (12:12)
[2025-01-23] MEDS: AZITHROMYCIN 500 MG/NS 250 ML 500 MG/250 ML BAG 250 MG IVPB (14:02)
[2025-01-23] MEDS: LORazepam (*CRX) 0.5 MG TABLET PO (18:55)
[2025-01-23] MEDS: levETIRAcetam 500 MG TABLET 1500 MG PO (20:40)
[2025-01-23] MEDS: levoFLOXacin 750 MG TABLET PO (20:41)
[2025-01-23] MEDS: traZODone HCL 50 MG TABLET 100 MG PO (20:41)
[2025-01-24] VITALS (11 sets, daily range): BP systolic 97–122; BP diastolic 62–67; PULSE 71–83; RESP 17–20; TEMP 36.4–36.6; O2SAT 92–97
--- NOTE | 2025-01-24 01:08 | PCRCNOTE ---
Patient on overnight oximetry study. Patient was on 2L with sat at 90% beginning of study before sleeping. Patient states he wears 2L at home all the time. Overnight oximetry study done on 2L O2.
[2025-01-24] MEDS: oxyCODONE (*CRX) 5 MG/5 ML ORAL SOLN IR 10 MG PO ×6 (01:21→20:35)
[2025-01-24 05:41] LABS: Hematocrit 36.4 % (42.0-52.0); Hemoglobin 11.1 g/dL (14.0-18.0); Mean Corpuscular HGB Conc 30.5 g/dl (32-36); Mean Corpuscular Hemoglobin 25.3 pg (26-34); Mean Corpuscular Volume 82.9 fl (80-100); Mean Platelet Volume 9.7 fl (7.4-10.4); Platelet Count Result 301 k/mm3 (150-375); Red Blood Count 4.39 M/mm3 (4.6-6.20); Red Cell Distribution Width 16.8 % (11.5-14.5); White Blood Count 6.8 K/mm3 (4.5-10.0)
[2025-01-24 06:02] LABS: Alanine Aminotransferase 19 U/L (6-50); Albumin Level 3.3 g/dL (3.5-5.1); Alkaline Phosphatase 92 U/L (38-126); Anion Gap 4 mmol/L (4-12); Aspartate Amino Transferase 26 U/L (17-59); Bilirubin,Total 0.3 mg/dL (0.2-1.3); Blood Urea Nitrogen 19 mg/dL (9-20); Calcium 8.8 mg/dL (8.4-10.2); Carbon Dioxide 35 mmol/L (22-30); Chloride 102 mmol/L (98-107); Estimated CRCL calculation 51 ml/min; Estimated Glomerular Filt Rate 59; Glucose 80 mg/dL (65-110); Potassium 4.6 mmol/L (3.4-5.0); Sodium 141 mmol/L (137-145)
[2025-01-24] MEDS: FLUTICASONE/UMECLIDIN/VILANTER 100-62.5-25 MCG ELLIPTA 1 PUFF INHALATION (07:42)
[2025-01-24] MEDS: IPRATROPIUM 0.5 MG/ALBUTEROL SULFATE 2.5 MG AMPUL.NEB 3 ML INHALATION ×3 (07:42→19:30)
--- NOTE | 2025-01-24 08:14 | P.PNIM_ITS ---
Progress Note: A&P Assessment and Plan (1) Respiratory failure with hypoxia and hypercapnia: Code(s): J96.91 - Respiratory failure, unspecified with hypoxia; J96.92 - Respiratory failure, unspecified with hypercapnia Status: Acute Assessment and Plan: Unsure if patient is on chronic oxygen supplementation. Patient follows cannon fire direction specialist Dr. Mosley. Last seen on 01/02/25. Per Dr. Cool note patient was not on any home oxygen during that visit however patient states he has worn oxygen since 11/2024. Currently on 2L NC, Wean oxygen as tolerated, maintain spo2 >90 Patient will need a home O2 eval prior to discharge Patient requires 2L with activity and at rest Pulmonology consulted - will need pulm function test after discharge (2) Community acquired pneumonia: Code(s): J18.9 - Pneumonia, unspecified organism Status: Acute Assessment and Plan: Patient was previously seen in the ED on 01/18, at that time he was sating well on what he said was his chronic oxygen supplementation of 3L NC and was discharged home on a zpak and cefpodoxime. CXR 01/18: Elevation of the left hemidiaphragm with left-sided pleural effusion and adjacent compressive atelectasis. Chest CTA 01/18: No PE. Left basal pneumonia with minimal effusion and multiple patchy opacities in the left upper lobe and lingula suggestive of infection as well as a nodule in the left apical area and bilateral healing rib fractures. - Chest XR on admission : Increasing opacities in the bilateral mid and lower lung zones consistent with worsening pneumonia and unchanged elevation of the left hemidiaphragm. - Complicating Factors: COPD on chronic oxygen, hx of lobectomy - Antibiotics: azithromycin and cefepime started on 01/20, transitioned to oral levaquin on 01/23 - Remains on oxygen supplementation of 1.5LNC. Keep SpO2 greater than 88% - Viral PCR: negative for Flu/COVID/RSV. MRSA negative - Blood cultures obtained on 01/20: NGTD - Send sputum cultures - IS and PEP therapy - legionella, mycoplasma and pneumococcal ordered. Previously positive for pneumococcal in urine on 11/14/24. - Monitor vital signs, I&Os, neuro status and patient is a fall risk - Follow WBC, serum electrolytes, temperature curves and cultures - Pulmonology consulted continue levaquin (3) COPD (chronic obstructive pulmonary disease): Qualifiers: COPD type: unspecified COPD Qualified Code(s): J44.9 - Chronic obstructive pulmonary disease, unspecified Code(s): J44.9 - Chronic obstructive pulmonary disease, unspecified Status: Acute Assessment and Plan: Patient follows cannon fire direction specialist Dr. Mosley. Last seen on 01/02/25. He was not on any home oxygen during that visit per chart review, however patient states he has been on 2L NC since 11/2024. Continue trelegy 100 and p.r.n. albuterol. Will hold on steroids at this time given patients current infection and no wheezing on auscultation Pulmonology consulted (4) Seizure: Code(s): R56.9 - Unspecified convulsions Status: Acute Assessment and Plan: Chronic, continue keppra (5) Hypotension: Qualifiers: Hypotension type: unspecified hypotension type Qualified Code(s): I95.9 - Hypotension, unspecified Code(s): I95.9 - Hypotension, unspecified Status: Acute Assessment and Plan: Chronic, continue midodrine 2.5 mg BID Blood pressures remain stable, continue to monitor (6) History of lung cancer: Code(s): Z85.118 - Personal history of other malignant neoplasm of bronchus and lung Status: Acute Assessment and Plan: Squamous cell carcinoma s/p right middle lobe lobectomy in 2019 Time Spent With Patient Time with patient: 25 - 35 minutes Subjective Date/time seen: 01/24/25 08:14 Interval history: 64 year old male with a past medical history of tobacco abuse, COPD on chronic 2L NC of oxygen supplementation, lung cancer s/p right middle lobe lobectomy in 2019, vitamin B 12 deficiency, iron deficiency anemia, gastric bypass in 2000, chronic pain, GERD, and hypotension presented to the hospital for worsening shortness of breath/dyspnea. Patient was previously seen in the ED on 01/18, at that time he was sating well on what he said was his chronic oxygen supplementation of 3L NC and was discharged home on a zpak and cefpodoxime. Patient follows cannon fire direction specialist Dr. Mosley. Last seen on 01/02/25. Per Dr. Cool note patient was not on any home oxygen during that visit however patient states he has worn oxygen since 11/2024. Patient is pleasant lying comfortably in bed. He states that his shortness of breath and cough continues to improve. He underwent a home O2 evaluation and per respiratory therapy will required 2 L at rest and with activity. Patient continues to endorse severe headaches as well as increased fatigue and fogginess after waking up. Discussed patient with pulmonology and given that patient is on chronic oxygen and has a history of COPD will obtain a sleep study to further evaluate nocturnal O2 requirement verses JIMENA. Pt is seen and examined. Pt is sitting in bed, reports feeling ok but worried about his recovery. Denies chest pain. Eating and drinking ok, no n/v/d. Anticipate discharge in th enext few days- apnea stdy, home o2 eval pending Review of Systems Review of Systems: 12 systems were reviewed and are negativ e except for as per HPI. All systems reviewed & are unremarkable except as noted in HPI and below Exam 2 Narrative: General: male in no acute respiratory distress who is nontoxic appearing, sitting up in bed. HEENT: Normocephalic. Atraumatic. Extraocular movement intact. Sclera clear and anicteric. No facial asymmetry. Chest: Lungs with bibasilar crackles and upper congestion. No wheezes. CV: Heart was regular rate and rhythm. S1/S2. No murmurs, gallops, or rubs. Abd: Abdomen was soft. Nontender. Nondistended. Positive bowel sounds. Ext: No clubbing, cyanosis, or edema. DP pulses bilaterally. Neuro: Patient is alert. Speech is clear. Const: General: comfortable Objective Data Vital Signs Vital Signs: Vital Signs - 24 hr 01/23/25 08:20 01/23/25 08:20 01/23/25 08:28 Temperature Pulse Rate 76 72 Respiratory Rate 18 18 Blood Pressure Pulse Oximetry 90 Oxygen Delivery Nasal Cannula Oxygen Flow Rate 1 Fraction of Inspired Oxygen 01/23/25 11:00 01/23/25 11:05 01/23/25 11:07 Temperature Pulse Rate 79 107 H 105 H Respiratory Rate Blood Pressure Pulse Oximetry 91 87 L 88 L Oxygen Delivery Room Air Room Air Nasal Cannula Oxygen Flow Rate 1 Fraction of Inspired Oxygen 01/23/25 11:10 01/23/25 14:00 01/23/25 14:58 Temperature 97.6 F Pulse Rate 94 72 98 Respiratory Rate 17 18 Blood Pressure 112/62 Pulse Oximetry 92 95 Oxygen Delivery Nasal Cannula Oxygen Flow Rate 2 Fraction of Inspired Oxygen 01/23/25 15:06 01/23/25 19:23 01/23/25 19:25 Temperature Pulse Rate 92 87 Respiratory Rate 18 18 Blood Pressure Pulse Oximetry 91 Oxygen Delivery Room Air Oxygen Flow Rate Fraction of Inspired Oxygen 21 01/23/25 19:36 01/23/25 20:00 01/23/25 20:36 Temperature 97.7 F Pulse Rate 88 93 Respiratory Rate 18 18 Blood Pressure 94/56 L Pulse Oximetry 92 92 Oxygen Delivery Nasal Cannula Oxygen Flow Rate 2 Fraction of Inspired Oxygen 01/23/25 22:30 01/24/25 03:47 01/24/25 07:44 Temperature 97.8 F Pulse Rate 77 71 Respiratory Rate 18 18 Blood Pressure 97/62 L Pulse Oximetry 90 93 94 Oxygen Delivery Nasal Cannula Nasal Cannula Oxygen Flow Rate 2 2 Fraction of Inspired Oxygen 01/24/25 07:44 01/24/25 07:54 Temperature Pulse Rate 71 83 Respiratory Rate 18 18 Blood Pressure Pulse Oximetry Oxygen Delivery Oxygen Flow Rate Fraction of Inspired Oxygen Intake/Output Intake/Output: Intake & Output 01/21/25 01/22/25 01/23/25 01/24/25 23:59 23:59 23:59 23:59 Intake Total 2510 1240 1006 390 Output Total 750 800 625 200 Balance 1760 440 381 190 Meds/Results Medications: Active Medications Generic Name Dose Route Start Last Admin Trade Name Freq PRN Reason Stop Dose Admin Acetaminophen 650 mg 01/20/25 13:25 01/23/25 18:50 Acetaminophen 325 Mg Tablet PO 650 mg Q4H PRN Administration Mild Pain (1-3) or Fever Albuterol/Ipratropium 3 ml 01/20/25 14:00 01/24/25 07:42 Ipratropium 0.5 Mg/Albuterol Sulfate 2.5 Mg Ampul.Neb 3 Ml INHALATION 3 ml Q6HRT DANE Administration Aspirin 81 mg 01/21/25 09:00 01/23/25 08:14 Aspirin 81 Mg Enteric Tablet PO 81 mg DAILY DANE Administration Bupropion HCl 150 mg 01/21/25 09:00 01/23/25 08:14 Bupropion Hcl Xl (24 Hr) 150 Mg Tabcr BY MOUTH 150 mg DAILY DANE Administration Docusate Sodium 100 mg 01/21/25 09:00 01/23/25 08:14 Docusate Sodium 100 Mg Capsule PO 100 mg DAILY DANE Administration Enoxaparin Sodium 40 mg 01/21/25 09:00 01/23/25 08:14 Enoxaparin 40 Mg/0.4 Ml Syringe SUB-Q 40 mg DAILY DANE Administration Ferrous Sulfate 325 mg 01/21/25 09:00 01/23/25 08:14 Ferrous Sulfate [address] BY MOUTH 325 mg DAILY DANE Administration Fluticasone/Umeclidinium/Vilanterol 1 puff 01/21/25 09:00 01/24/25 07:42 Fluticasone/Umeclidin/Vilanter 100-62.5-25 Mcg Ellipta INHALATION 1 puff DAILY DANE Administration Guaifenesin/Dextromethorphan 1 tab 01/21/25 12:30 01/23/25 20:40 Guaifenesin 600 Mg/Dextromethorphan 30 Mg Sr Tab 12 Hr PO 1 tab Q12HR DANE Administration Levetiracetam 1,500 mg 01/20/25 21:00 01/23/25 20:40 Levetiracetam 500 Mg Tablet PO 1,500 mg QHS DANE Administration Levofloxacin 750 mg 01/23/25 21:00 01/23/25 20:41 Levofloxacin 750 Mg Tablet PO 01/26/25 21:01 750 mg QHS DANE Administration Lidocaine 1 patch 01/21/25 09:00 01/23/25 08:16 Lidocaine 5% Patch TOPICAL Not Given DAILY [facility] Lorazepam 0.5 mg 01/20/25 15:43 01/23/25 18:55 Lorazepam (*Crx) 0.5 Mg Tablet PO 0.5 mg TID PRN Administration anxiety Midodrine 2.5 mg 01/20/25 17:00 01/23/25 16:02 Midodrine Hcl 2.5 Mg Tablet PO 2.5 mg BID DANE Administration Oxycodone HCl 10 mg 01/20/25 17:00 01/24/25 05:11 Oxycodone (*Crx) 5 Mg/5 Ml Oral Soln Ir PO 10 mg Q4HR DANE Administration Pantoprazole Sodium 40 mg 01/20/25 17:00 01/23/25 16:01 Pantoprazole 40 Mg Tablet PO 40 mg BID DANE Administration Paroxetine HCl 40 mg 01/21/25 09:00 01/23/25 08:14 Paroxetine 20 Mg Tablet BY MOUTH 40 mg QAM DANE Administration Polyethylene Glycol 17 gm 01/23/25 09:30 01/23/25 12:12 Polyethylene Glycol 3350 17 Gm Powd.Pack PO 17 gm QAM DANE Administration Pregabalin 150 mg 01/21/25 09:00 01/23/25 08:14 Pregabalin (*Crx) 75 Mg Capsule PO 150 mg DAILY DANE Administration Tizanidine HCl 4 mg 01/20/25 15:43 Tizanidine Hcl 4 Mg Tablet PO TID PRN muscle spasticity Trazodone HCl 100 mg 01/20/25 21:00 01/23/25 20:41 Trazodone Hcl 50 Mg Tablet PO 100 mg QHS DANE Administration Vitamin B Complex 1 cap 01/21/25 09:00 01/23/25 08:15 Vitamin B Complex Capsule PO 1 cap DAILY DANE Administration Radiology Results: ITS Impressions Chest X-Ray 01/20/25 12:53 IMPRESSION: 1. Increasing opacities in bilateral mid and lower lung zones consistent with worsening pneumonia. 2. Unchanged elevation the left hemidiaphragm. Labs Labs: Laboratory Results - last 24 hr 01/23/25 01/24/25 12:01 05:15 WBC 6.8 RBC 4.39 L Hgb 11.1 L Hct 36.4 L MCV 82.9 MCH 25.3 L MCHC 30.5 L RDW 16.8 H Plt Count 301 MPV 9.7 Sodium 141 Potassium 4.6 Chloride 102 Carbon Dioxide 35 H Anion Gap 4 BUN 19 Creatinine 1.23 Estim Creat Clear Calc 51 Estimated GFR 59 Glucose 80 POC Capillary Glucose 110 H Calcium 8.8 Total Bilirubin 0.3 AST 26 ALT 19 Alkaline Phosphatase 92 Total Protein 7.0 Albumin 3.3 L Quality VTE Prophylaxis VTE prophylaxis: pharmacologic ordered
[2025-01-24] MEDS: LORazepam (*CRX) 0.5 MG TABLET PO (09:12)
[2025-01-24] MEDS: MIDODRINE HCL 2.5 MG TABLET PO ×2 (09:13→17:06)
[2025-01-24] MEDS: PREGABALIN (*CRX) 75 MG CAPSULE 150 MG PO (09:13)
[2025-01-24] MEDS: DOCUSATE SODIUM 100 MG CAPSULE PO (09:13)
[2025-01-24] MEDS: buPROPion HCL XL (24 HR) 150 MG TABCR BY MOUTH (09:13)
[2025-01-24] MEDS: ACETAMINOPHEN 325 MG TABLET 650 MG PO (09:13)
[2025-01-24] MEDS: TIZANIDINE HCL 4 MG TABLET PO (09:13)
[2025-01-24] MEDS: ASPIRIN 81 MG ENTERIC TABLET PO (09:13)
[2025-01-24] MEDS: FERROUS SULFATE 325 MG TABLET DR BY MOUTH (09:13)
[2025-01-24] MEDS: PARoxetine 20 MG TABLET 40 MG BY MOUTH (09:13)
[2025-01-24] MEDS: PANTOPRAZOLE 40 MG TABLET PO ×2 (09:13→17:07)
[2025-01-24] MEDS: guaiFENesin 600 MG/DEXTROMETHORPHAN 30 MG SR TAB 12 HR 1 TAB PO ×2 (09:13→20:35)
[2025-01-24] MEDS: polyethylene glycoL 3350 17 GM POWD.PACK PO (09:14)
[2025-01-24] MEDS: ENOXAPARIN 40 MG/0.4 ML SYRINGE SUB-Q (09:14)
[2025-01-24] MEDS: VITAMIN B COMPLEX CAPSULE 1 CAP PO (14:42)
[2025-01-24 18:03] LABS: Mycoplasma IgM Antibody Titer 127 U/mL
--- NOTE | 2025-01-24 18:24 | P.PNPL_ITS ---
Progress Note: A&P Assessment and Plan (1) Community acquired pneumonia: Code(s): J18.9 - Pneumonia, unspecified organism Status: Acute Assessment and Plan: Recurrent L sided pneumonia, clinically improved. This is the area of his lung resection, 01/2020, T1N0M0, surgical treatment, squamous cell carcinoma. He can go home on oral antibiotics, complete 7 days of Levaquin finshs on January 30, 5 more days. . He had positive influenza a swab, strep pneumococcal urine antigen and for extended respiratory pathogen panel showed with human metapneumovirus on last admission. Mycoplasma titer = 127, normal, anything below 770 is normal. (2) COPD (chronic obstructive pulmonary disease): Qualifiers: COPD type: unspecified COPD Qualified Code(s): J44.9 - Chronic obstructive pulmonary disease, unspecified Code(s): J44.9 - Chronic obstructive pulmonary disease, unspecified Status: Acute Assessment and Plan: In his home his usual treatment is Trelegy 1 puff a day and p.r.n. albuterol. He has not had pulmonary function studies since 2020. Will need these in a few weeks as a follow up to his prior studies. Can go home on Trelegy 100 mg one time a day, albuterol prn shortness of breath. I stopped Duoneb on his med list. Too much anti-cholinergic. (3) Respiratory failure with hypoxia and hypercapnia: Code(s): J96.91 - Respiratory failure, unspecified with hypoxia; J96.92 - Respiratory failure, unspecified with hypercapnia Status: Acute Assessment and Plan: pCO2 this admission was 53, his serum bicarbonates on the chemistry is running between 32 and 34 which is consistent with chronic hypercapnia. He needs no O2 at rest based on Home O2 study 01/25/25, 2 L with exertion, 3 L /min with sleep. ApneaLink 01/24 = 73% of the night below 88% even on 2 L/min (4) Personal history of nicotine dependence: Code(s): Z87.891 - Personal history of nicotine dependence Status: Acute Assessment and Plan: 50 pack years, quit 11/13/2024 Plan plan: Ok to go home today. 1. O2; none at rest, 2 L /min with exertion, 3 L/min with sleep. This is an increase. ApneaLink showed low sat 73% of night < 88% on 2 L/min sleeping. 2. Levaquin started 01/23, needs to complete 7 days so give until 01/30 3. He has persistent LLL infiltrate and RLL nodule. 01/25/25 CXR ; IMPRESSION: Persistent consolidation and reticular nodular opacities left lower lung zone consistent with pneumonia. Subtle airspace process in the perihilar right mid lung zone which appears to correspond to 1.7 cm right lower lobe nodule on prior CT which is concerning for malignancy. Mild emphysema better appreciated on prior CT. He needs to see pulmonary office doctor in 3-4 weeks. CXR before the visit. 4. Go home on Trelegy 100 one puff a day, no Duo-neb. He is on it here. Too much anticholionergic. He can use albuterol for rescue medication. 5. Will need PFTs in 6 weeks. d/w Michael Jacob APRN. Subjective Date/time seen: 01/25/25 12:25 Interval history: 01/25/25; follow up visit Room 242. He feels great, wants to go home. Had Home O2 study, needs 2 L/min with exertion. CXR today shows 01/25/25 : 1. Persistent consolidation and reticular nodular opacities left lower lung zone consistent with pneumonia. 2. Subtle airspace process in the perihilar right mid lung zone which appears to correspond to 1.7 cm right lower lobe nodule on prior CT which is concerning for malignancy. 3. Mild emphysema better appreciated on prior CT. 01/24/2025 ApneaLink; on 2 L/min, spent 73% of the night < 88%, lowest sat 77%, He needs to increase O2 to 3 L with sleep. 01/23/2025, new consult; Kiran Smith is 64 years old, known to our service, COPD and previous lung resection for lung cancer post right middle lobe lobectomy in 01/23/2020 , was in-patient in Nov for acute respiratory failure due to influenza A, human metapneumovirus (hMPV), Strep pneumo; was sent home December 04 using oxygen, O2 3 L around the clock according to the patient. He saw Dr Mosley January 02 in the office, was stable. He was using O2 at home at the time. He was re-admitted January 20, was in the ER on January 18 saying that he could not breathe, was at Dr. Zelaya office had his oxygen turned up from 3 L to 4 L. Initial white count was 6.9, peaked at 11.6 and today 7.4. He says he feels much better compared to admission. He is still expectorating tannish thick sputum. His chest CT this admission 01/20 is much improved compared to his November [address] with severe widespread left-sided pneumonia. Currently is on azithromycin and cefepime started on 01/20. He is now saying that he is having morning headaches when he wakes. Vaccinations : he is a never-vaccinated person, protestant exemption. Tobacco: stopped in Nov 2024, had a 50 pack year history. 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 He wore respiratory protection when he was grinding. He retired 4-5 years ago. DATA * 01/24/25 ApneaLink : on 2 L/min, spent 73% of the night < 88%, lowest sat 77%, He needs to increase O2 to 3 L with sleep. AHI was 4.3. * 01/25/25 CXR; 1. Persistent consolidation and reticular nodular opacities left lower lung zone consistent with pneumonia. 2. Subtle airspace process in the perihilar right mid lung zone which appears to correspond to 1.7 cm right lower lobe nodule on prior CT which is concerning for malignancy. 3. Mild emphysema better appreciated on prior CT. * 01/20/25 CXR = Increasing opacities in bilateral mid and lower lung zones consistent with worsening pneumonia. Unchanged elevation the left hemidiaphragm. * 01/18/25 CTA : No pulmonary embolism. Left basal pneumonia with minimal effusion. Multiple patchy opacities in the left upper lobe and lingula suggestive of infection. Follow-up advised. Right renal cyst. Nodule in the left apical area. [address] follow-up advised. Bilateral healing rib fractures. * 01/20/25 ABG 7.36/53.4/91.4/29.7/90 5% on 3 L * 11/27/[address] : Widespread pneumonia, left worse than right. Mucous plugging in left mainstem bronchus. 14 mm nodule in right lung lower lobe suspicious for primary bronchogenic carcinoma or metastatic disease. Mild emphysema. * 11/21/2024; echo =LV normal; LVEF systolic function is normal, estimated at 55- 60%. The left ventricular diastolic function is grade I diastolic dysfunction. Right ventricular systolic function is normal. Biatrial enlargement, mild. Left atrial chamber dimension is mildly enlarged. Right atrial chamber dimension is mildly enlarged. No significant valvular disease. * 06/17/2021; 6MW, did not require O2, walked 274 meters, less than expected for age. * 06/17/2021 PFT; Impression: There is a moderately severe obstructive abnormality without significant improvement after inhaling a single dose of albuterol. The lung volumes are normal. The absolute diffusing capacity is moderately decreased and normalizes when corrected for alveolar volume. Review of Systems 2 Review of Systems: All systems reviewed & are unremarkable except as noted in HPI and below Exam 2 Narrative: GEN: Alert, oriented, not in distress. NECK: Trachea is midline CHEST: Equal air entry, symmetric excursion, decreased breath sounds both bases, no wheezes. CV: Regular S1S2 no m/g/r ABD : (+) bowel sounds Extremities : no clubbing, cyanosis, or edema Objective Data Vital Signs Vital Signs: Vital Signs - 24 hr 01/23/25 19:23 01/23/25 19:25 01/23/25 19:36 Temperature Pulse Rate 87 88 Respiratory Rate 18 18 Blood Pressure Pulse Oximetry 91 Oxygen Delivery Room Air Oxygen Flow Rate Fraction of Inspired Oxygen 21 01/23/25 20:00 01/23/25 20:36 01/23/25 22:30 Temperature 36.5 C Pulse Rate 93 Respiratory Rate 18 Blood Pressure 94/56 L Pulse Oximetry 92 92 90 Oxygen Delivery Nasal Cannula Nasal Cannula Oxygen Flow Rate 2 2 Fraction of Inspired Oxygen 01/24/25 03:47 01/24/25 07:44 01/24/25 07:44 Temperature 36.6 C Pulse Rate 77 71 71 Respiratory Rate 18 18 18 Blood Pressure 97/62 L Pulse Oximetry 93 94 Oxygen Delivery Nasal Cannula Oxygen Flow Rate 2 Fraction of Inspired Oxygen 01/24/25 07:54 01/24/25 08:00 01/24/25 09:13 Temperature 36.6 C Pulse Rate 83 74 Respiratory Rate 18 18 Blood Pressure Pulse Oximetry 94 Oxygen Delivery Nasal Cannula Oxygen Flow Rate 2 Fraction of Inspired Oxygen 01/24/25 13:48 01/24/25 14:00 Temperature 36.5 C Pulse Rate 74 74 Respiratory Rate 18 17 Blood Pressure 102/62 Pulse Oximetry 94 Oxygen Delivery Oxygen Flow Rate Fraction of Inspired Oxygen Intake/Output Intake/Output: Intake & Output 01/21/25 01/22/25 01/23/25 01/24/25 23:59 23:59 23:59 23:59 Intake Total 2510 1240 1006 954 Output Total 750 800 625 200 Balance 1760 440 381 754 Meds/Results Medications: Active Medications Generic Name Dose Route Start Last Admin Trade Name Freq PRN Reason Stop Dose Admin Acetaminophen 650 mg 01/20/25 13:25 01/24/25 09:13 Acetaminophen 325 Mg Tablet PO 650 mg Q4H PRN Administration Mild Pain (1-3) or Fever Albuterol/Ipratropium 3 ml 01/20/25 14:00 01/24/25 13:47 Ipratropium 0.5 Mg/Albuterol Sulfate 2.5 Mg Ampul.Neb 3 Ml INHALATION 3 ml Q6HRT DANE Administration Aspirin 81 mg 01/21/25 09:00 01/24/25 09:13 Aspirin 81 Mg Enteric Tablet PO 81 mg DAILY DANE Administration Bupropion HCl 150 mg 01/21/25 09:00 01/24/25 09:13 Bupropion Hcl Xl (24 Hr) 150 Mg Tabcr BY MOUTH 150 mg DAILY DANE Administration Docusate Sodium 100 mg 01/21/25 09:00 01/24/25 09:13 Docusate Sodium 100 Mg Capsule PO 100 mg DAILY DANE Administration Enoxaparin Sodium 40 mg 01/21/25 09:00 01/24/25 09:14 Enoxaparin 40 Mg/0.4 Ml Syringe SUB-Q 40 mg DAILY DANE Administration Ferrous Sulfate 325 mg 01/21/25 09:00 01/24/25 09:13 Ferrous Sulfate [address] BY MOUTH 325 mg DAILY DANE Administration Fluticasone/Umeclidinium/Vilanterol 1 puff 01/21/25 09:00 01/24/25 07:42 Fluticasone/Umeclidin/Vilanter 100-62.5-25 Mcg Ellipta INHALATION 1 puff DAILY DANE Administration Guaifenesin/Dextromethorphan 1 tab 01/21/25 12:30 01/24/25 09:13 Guaifenesin 600 Mg/Dextromethorphan 30 Mg Sr Tab 12 Hr PO 1 tab Q12HR DANE Administration Levetiracetam 1,500 mg 01/20/25 21:00 01/23/25 20:40 Levetiracetam 500 Mg Tablet PO 1,500 mg QHS DANE Administration Levofloxacin 750 mg 01/23/25 21:00 01/23/25 20:41 Levofloxacin 750 Mg Tablet PO 01/26/25 21:01 750 mg QHS DANE Administration Lidocaine 1 patch 01/21/25 09:00 01/24/25 09:17 Lidocaine 5% Patch TOPICAL Not Given DAILY [facility] Lorazepam 0.5 mg 01/20/25 15:43 01/24/25 09:12 Lorazepam (*Crx) 0.5 Mg Tablet PO 0.5 mg TID PRN Administration anxiety Midodrine 2.5 mg 01/20/25 17:00 01/24/25 17:06 Midodrine Hcl 2.5 Mg Tablet PO 2.5 mg BID DANE Administration Oxycodone HCl 10 mg 01/20/25 17:00 01/24/25 17:07 Oxycodone (*Crx) 5 Mg/5 Ml Oral Soln Ir PO 10 mg Q4HR DANE Administration Pantoprazole Sodium 40 mg 01/20/25 17:00 01/24/25 17:07 Pantoprazole 40 Mg Tablet PO 40 mg BID DANE Administration Paroxetine HCl 40 mg 01/21/25 09:00 01/24/25 09:13 Paroxetine 20 Mg Tablet BY MOUTH 40 mg QAM DANE Administration Polyethylene Glycol 17 gm 01/23/25 09:30 01/24/25 09:14 Polyethylene Glycol 3350 17 Gm Powd.Pack PO 17 gm QAM DANE Administration Pregabalin 150 mg 01/21/25 09:00 01/24/25 09:13 Pregabalin (*Crx) 75 Mg Capsule PO 150 mg DAILY DANE Administration Tizanidine HCl 4 mg 01/20/25 15:43 01/24/25 09:13 Tizanidine Hcl 4 Mg Tablet PO 4 mg TID PRN Administration muscle spasticity Trazodone HCl 100 mg 01/20/25 21:00 01/23/25 20:41 Trazodone Hcl 50 Mg Tablet PO 100 mg QHS DANE Administration Vitamin B Complex 1 cap 01/21/25 09:00 01/24/25 14:42 Vitamin B Complex Capsule PO 1 cap DAILY DANE Administration Radiology Results: ITS Impressions Chest X-Ray 01/20/25 12:53 IMPRESSION: 1. Increasing opacities in bilateral mid and lower lung zones consistent with worsening pneumonia. 2. Unchanged elevation the left hemidiaphragm. Labs Labs: Laboratory Results - last 24 hr 01/21/25 01/24/25 03:44 05:15 WBC 6.8 RBC 4.39 L Hgb 11.1 L Hct 36.4 L MCV 82.9 MCH 25.3 L MCHC 30.5 L RDW 16.8 H Plt Count 301 MPV 9.7 Sodium 141 Potassium 4.6 Chloride 102 Carbon Dioxide 35 H Anion Gap 4 BUN 19 Creatinine 1.23 Estim Creat Clear Calc 51 Estimated GFR 59 Glucose 80 Calcium 8.8 Total Bilirubin 0.3 AST 26 ALT 19 Alkaline Phosphatase 92 Total Protein 7.0 Albumin 3.3 L Mycoplasma pneumon IgM 127 this is negative
[2025-01-24 18:49] LABS: Legionella pneumophila Ag Ur NOT DETECTED
[2025-01-24] MEDS: levoFLOXacin 750 MG TABLET PO (20:34)
[2025-01-24] MEDS: levETIRAcetam 500 MG TABLET 1500 MG PO (20:35)
[2025-01-24] MEDS: traZODone HCL 50 MG TABLET 100 MG PO (20:35)
[2025-01-25] VITALS (13 sets, daily range): BP systolic 107–109; BP diastolic 68–72; PULSE 67–103; RESP 16–20; TEMP 36.7; O2SAT 87–99
[2025-01-25] MEDS: oxyCODONE (*CRX) 5 MG/5 ML ORAL SOLN IR 10 MG PO ×4 (00:59→12:35)
[2025-01-25] MEDS: IPRATROPIUM 0.5 MG/ALBUTEROL SULFATE 2.5 MG AMPUL.NEB 3 ML INHALATION ×2 (01:43→08:08)
[2025-01-25 05:36] LABS: Hematocrit 36.7 % (42.0-52.0); Hemoglobin 11.2 g/dL (14.0-18.0); Mean Corpuscular HGB Conc 30.5 g/dl (32-36); Mean Corpuscular Hemoglobin 25.3 pg (26-34); Mean Corpuscular Volume 82.8 fl (80-100); Mean Platelet Volume 9.2 fl (7.4-10.4); Platelet Count Result 275 k/mm3 (150-375); Red Blood Count 4.43 M/mm3 (4.6-6.20); Red Cell Distribution Width 16.7 % (11.5-14.5); White Blood Count 7.9 K/mm3 (4.5-10.0)
[2025-01-25 06:00] LABS: Alanine Aminotransferase 17 U/L (6-50); Albumin Level 3.3 g/dL (3.5-5.1); Alkaline Phosphatase 92 U/L (38-126); Anion Gap 3 mmol/L (4-12); Aspartate Amino Transferase 23 U/L (17-59); Bilirubin,Total 0.3 mg/dL (0.2-1.3); Blood Urea Nitrogen 19 mg/dL (9-20); Calcium 8.4 mg/dL (8.4-10.2); Carbon Dioxide 34 mmol/L (22-30); Chloride 102 mmol/L (98-107); Estimated CRCL calculation 63 ml/min; Estimated Glomerular Filt Rate > 60; Glucose 85 mg/dL (65-110); Sodium 139 mmol/L (137-145)
[2025-01-25] MEDS: FLUTICASONE/UMECLIDIN/VILANTER 100-62.5-25 MCG ELLIPTA 1 PUFF INHALATION (08:09)
[2025-01-25] MEDS: PREGABALIN (*CRX) 75 MG CAPSULE 150 MG PO (08:33)
[2025-01-25] MEDS: PARoxetine 20 MG TABLET 40 MG BY MOUTH (08:33)
[2025-01-25] MEDS: VITAMIN B COMPLEX CAPSULE 1 CAP PO (08:33)
[2025-01-25] MEDS: MIDODRINE HCL 2.5 MG TABLET PO (08:33)
[2025-01-25] MEDS: ASPIRIN 81 MG ENTERIC TABLET PO (08:33)
[2025-01-25] MEDS: guaiFENesin 600 MG/DEXTROMETHORPHAN 30 MG SR TAB 12 HR 1 TAB PO (08:33)
[2025-01-25] MEDS: DOCUSATE SODIUM 100 MG CAPSULE PO (08:33)
[2025-01-25] MEDS: FERROUS SULFATE 325 MG TABLET DR BY MOUTH (08:33)
[2025-01-25] MEDS: polyethylene glycoL 3350 17 GM POWD.PACK PO (08:33)
[2025-01-25] MEDS: PANTOPRAZOLE 40 MG TABLET PO (08:34)
[2025-01-25] MEDS: buPROPion HCL XL (24 HR) 150 MG TABCR BY MOUTH (08:34)
[2025-01-25] MEDS: ENOXAPARIN 40 MG/0.4 ML SYRINGE SUB-Q (08:34)
--- NOTE | 2025-01-25 11:10 | PCRCNOTE ---
HOME O2 EVAL COMPLETE, 2L WITH ACTIVITY. HE HAS HOME O2 AND WILL BRING IN TANK FOR DISCHARGE
--- NOTE | 2025-01-25 14:16 | P.DS_ITS ---
DS: Admitting Diagnosis Discharge Date 01/25 Admitting Diagnosis pnemonia DS: Discharge Diagnosis Discharge Diagnosis (1) Respiratory failure with hypoxia and hypercapnia: Code(s): J96.91 - Respiratory failure, unspecified with hypoxia; J96.92 - Respiratory failure, unspecified with hypercapnia Status: Acute (2) Community acquired pneumonia: Code(s): J18.9 - Pneumonia, unspecified organism Status: Acute (3) COPD (chronic obstructive pulmonary disease): Qualifiers: COPD type: unspecified COPD Qualified Code(s): J44.9 - Chronic obstructive pulmonary disease, unspecified Code(s): J44.9 - Chronic obstructive pulmonary disease, unspecified Status: Acute (4) Seizure: Code(s): R56.9 - Unspecified convulsions Status: Acute (5) Hypotension: Qualifiers: Hypotension type: unspecified hypotension type Qualified Code(s): I95.9 - Hypotension, unspecified Code(s): I95.9 - Hypotension, unspecified Status: Acute (6) History of lung cancer: Code(s): Z85.118 - Personal history of other malignant neoplasm of bronchus and lung Status: Acute Assessment and Plan: Squamous cell carcinoma s/p right middle lobe lobectomy in 2019 DS: Summary Hospital Course Hospital Course: 64 year old male with a past medical history of tobacco abuse, COPD on chronic 2L NC of oxygen supplementation, lung cancer s/p right middle lobe lobectomy in 2019, vitamin B 12 deficiency, iron deficiency anemia, gastric bypass in 2000, chronic pain, GERD, and hypotension presented to the hospital for worsening shortness of breath/dyspnea. Patient was previously seen in the ED on 01/18, at that time he was sating well on what he said was his chronic oxygen supplementation of 3L NC and was discharged home on a zpak and cefpodoxime. Patient follows purchasing supervisor Dr. Mosley. Last seen on 01/02/25. Per Dr. Cool note patient was not on any home oxygen during that visit however patient states he has worn oxygen since 11/2024. Patient is pleasant lying comfortably in bed. He states that his shortness of breath and cough continues to improve. He underwent a home O2 evaluation and per respiratory therapy will required 2 L at rest and with activity. Patient co ntinues to endorse severe headaches as well as increased fatigue and fogginess after waking up. Discussed patient with pulmonology and given that patient is on chronic oxygen and has a history of COPD will obtain a sleep study to further evaluate nocturnal O2 requirement verses JIMENA. # resp. failure Unsure if patient is on chronic oxygen supplementation. Patient follows purchasing supervisor Dr. Mosley. Last seen on 01/02/25. Per Dr. Cool note patient was not on any home oxygen during that visit however patient states he has worn oxygen since 11/2024. Currently on 2L NC, Wean oxygen as tolerated, maintain spo2 >90 - will need pulm function test after discharge close f/u with pulm # pnemonia Patient was previously seen in the ED on 01/18, at that time he was sating well on what he said was his chronic oxygen supplementation of 3L NC and was discharged home on a zpak and cefpodoxime. CXR 01/18: Elevation of the left hemidiaphragm with left-sided pleural effusion and adjacent compressive atelectasis. Chest CTA 01/18: No PE. Left basal pneumonia with minimal effusion and multiple patchy opacities in the left upper lobe and lingula suggestive of infection as well as a nodule in the left apical area and bilateral healing rib fractures. - Chest XR on admission : Increasing opacities in the bilateral mid and lower lung zones consistent with worsening pneumonia and unchanged elevation of the left hemidiaphragm. - Complicating Factors: COPD on chronic oxygen, hx of lobectomy - Antibiotics: azithromycin and cefepime started on 01/20, transitioned to oral levaquin on 01/23 - Remains on oxygen supplementation of 1.5LNC. Keep SpO2 greater than 88% - Viral PCR: negative for Flu/COVID/RSV. MRSA negative - Blood cultures obtained on 01/20: NGTD - Send sputum cultures - IS and PEP therapy - legionella, mycoplasma and pneumococcal ordered. Previously positive for pneumococcal in urine on 11/14/24. - Monitor vital signs, I&Os, neuro status and patient is a fall risk - Follow WBC, serum electrolytes, temperature curves and cultures - Pulmonology consulted continue levaquin- has two more doses left-rx sent to pharmacy chest xray repeated- reviewed per DR Garcia- ok to discharge with a close f/u with pulm. #COPD Patient follows purchasing supervisor Dr. Mosley. Last seen on 01/02/25. He was not on any home oxygen during that visit per chart review, however patient states he has been on 2L NC since 11/2024. Continue trelegy 100 and p.r.n. albuterol. Will hold on steroids at this time given patients current infection and no wheezing on auscultation #Chronic, continue midodrine 2.5 mg BID Blood pressures remain stable, continue to monitor Status at Discharge Functional status at discharge: independent ambulation Overall status at discharge: patient is progressing back to baseline Time Spent with Patient Time attestation: Total time spent providing and/or coordinating discharge services: Time spent: Greater than 30 minutes Exam Narrative: General: male in no acute respiratory distress who is nontoxic appearing, sitting up in bed. HEENT: Normocephalic. Atraumatic. Extraocular movement intact. Sclera clear and anicteric. No facial asymmetry. Chest: Lungs with bibasilar crackles and upper congestion. No wheezes. CV: Heart was regular rate and rhythm. S1/S2. No murmurs, gallops, or rubs. Abd: Abdomen was soft. Nontender. Nondistended. Positive bowel sounds. Ext: No clubbing, cyanosis, or edema. DP pulses bilaterally. Neuro: Patient is alert. Speech is clear. Const: General: comfortable DS: Data Data Completed and Pending Labs on day of discharge: Labs from last 24 hours 01/25/25 01/21/25 01/21/25 05:19 08:04 03:44 WBC 7.9 RBC 4.43 L Hgb 11.2 L Hct 36.7 L MCV 82.8 MCH 25.3 L MCHC 30.5 L RDW 16.7 H Plt Count 275 MPV 9.2 Sodium 139 Potassium 4.0 Chloride 102 Carbon Dioxide 34 H Anion Gap 3 L BUN 19 Creatinine 0.99 Estim Creat Clear Calc 63 Estimated GFR > 60 Glucose 85 Calcium 8.4 Total Bilirubin 0.3 AST 23 ALT 17 Alkaline Phosphatase 92 Total Protein 7.0 Albumin 3.3 L Ur L.pneumophila Ag Not detected Mycoplasma pneumon IgM 127 Preliminary micro results at discharge 01/20/25 13:46 Blood Culture - Preliminary Blood 01/20/25 13:46 Blood Culture - Preliminary Blood Discharge Plan Discharge Attending physician on discharge: Lorenzo Rea Consulting providers: Fernando Mosley Discharging Clinician: Payal Jacob Patient Disposition: Home with Home Health Service Activity: may shower Diet: heart healthy Discharge Instructions: Per Pulmonology please wear 3L of oxygen at night and 2L of oxygen with activity. Follow up with Pulmonology in 3-4 weeks. Outpatient chest X-ray before follow up visit, and PFTs' in 6 weeks. Please finish your antibiotics- you have a dose tonight and one tomorrow night. rx was sent to your pharmacy. Continue to use incentive spirometry. F.u with pulmonology Per Care Coordination. Patient [facility] for RN, PT, OT eval and treat. #[phone]. They will contact patient to resume services at [place]. Patient Instructions: Antibiotic Form Patient Language: Samoan Stand Alone Forms: General Discharge Information Follow-up/Referrals: Fernando Mosley MD [Physician] - 3 Weeks Discharge Medications: New levofloxacin 750 mg tablet 750 mg PO DAILY 2 Days Qty: 2 0RF Continued lidocaine 5 % adhesive patch,medicated 1 patch TOPICAL DAILY omeprazole 20 mg capsule,delayed release(DR/EC) 20 mg PO BID Stages Men's Multi-Vitamin 200 mcg-300 unit-20 mcg tablet 1 tablet PO DAILY pregabalin [Lyrica] 150 mg capsule 150 mg PO DAILY ferrous sulfate 325 mg (65 mg iron) tablet 325 mg PO DAILY oxycodone 10 mg/0.5 mL syringe 10 mg PO Q4H tizanidine 4 mg capsule 4 mg PO TID PRN (Reason: muscle spasticity) Qty: 30 0RF albuterol sulfate 90 mcg/actuation HFA aerosol inhaler See Rx Instructions .ROUTE .COMPLEX Qty: 8.5 1RF Dose Instruction: TAKE 1-2 PUFFS EVERY 4 HOURS NEEDED FOR SHORTNESS OF BREATH/WHEEZING. Rx Instructions: TAKE 1-2 PUFFS EVERY 4 HOURS NEEDED FOR SHORTNESS OF BREATH/WHEEZING. vitamin B complex Tablet 1 tablet PO DAILY aspirin [Adult Low Dose Aspirin] 81 mg tablet,delayed release (DR/EC) 81 mg PO DAILY midodrine 2.5 mg tablet 2.5 mg PO BID Qty: 180 1RF Rx Instructions: do not give last dose of day after 6PM or within 4 hrs of bedtime trazodone 50 mg tablet 100 mg PO QHS albuterol sulfate 1.25 mg/3 mL solution for nebulization 1.25 mg inhalation Q4H Qty: 75 0RF lorazepam 0.5 mg tablet 0.5 mg PO TID PRN (Reason: anxiety) paroxetine HCl 40 mg tablet See Rx Instructions .ROUTE .COMPLEX Qty: 90 1RF Dose Instruction: TAKE 1 TABLET BY MOUTH EVERY DAY Rx Instructions: TAKE 1 TABLET BY MOUTH EVERY DAY cyanocobalamin (vitamin B-12) 1,000 mcg/mL solution See Rx Instructions .ROUTE .COMPLEX Qty: 3 1RF Dose Instruction: INJECT 1ML INTO MUSCLE ONCE MONTHLY Rx Instructions: INJECT 1ML INTO MUSCLE ONCE MONTHLY BD Luer-Collin Syringe 3 mL 25 gauge x 1 syringe See Rx Instructions .ROUTE .COMPLEX Qty: 3 3RF Dose Instruction: FOR FOR ONCE MONTHLY IM INJECTIONS OF VITAMIIN B12 DIRECTED Rx Instructions: FOR ONCE MONTHLY IM INJECTIONS OF VITAMIIN B12 DIRECTED Trelegy Ellipta 100-62.5-25 mcg blister with device 1 inh inhalation DAILY Qty: 60 3RF bupropion HCl 300 mg tablet extended release 24 hr See Rx Instructions .ROUTE .COMPLEX Qty: 90 0RF Dose Instruction: TAKE 1 TABLET BY MOUTH EVERY MORNING Rx Instructions: TAKE 1 TABLET BY MOUTH EVERY MORNING levetiracetam 500 mg tablet extended release 24 hr 1,500 mg PO QHS Qty: 300 2RF Discontinued cefpodoxime 200 mg tablet 200 mg PO Q12H 7 Days Qty: 14 0RF Rx Instructions: must administer with a meal/food azithromycin 250 mg tablet See Rx Instructions .ROUTE .COMPLEX Qty: 6 0RF Rx Instructions: For 250 mg dose pack: take 500 mg today (day 1), then 250 mg for 4 days (days 2-5) Other Ambulatory Orders: XR chest 2V (Routine) Timeframe: 2 Weeks Location: Determined by Patient Ordered By: Marlin Garcia Date of admission: 01/20/25 14:38 Primary Care Provider: Vickey Hernandez Admitting Provider: Fabrizio Jaramillo Attending physician on admission: Keisha Martinez Condition: Stable Quality VTE Prophylaxis VTE prophylaxis: pharmacologic ordered Hospitalist MIPS Heart Failure (Exclusion) Patient has history of Heart Transplant or Left Ventricular Assistive Device?: No IF YES, STOP HERE Heart Failure (Qualifier) Patient has current or prior documentation of LVEF less than or equal to 40%, or mod/servere depressed LVSF?: No IF NO, STOP HERE
== END 2025-01-25 16:10 | disposition home health service (06) | DRG 194 ==
LOC: ANHED 13:28 → ANH3MEDSUR 14:14 → ANH2MED 14:42
PROVIDERS: Emergency Medicine; Nurse Practitioner Gerontology; Student in an Organized Health Care Education/Training Program; Admitting Provider Family Medicine; Emergency Provider Emergency Medicine; PCP Internal Medicine; Visit Provider Nurse Practitioner
DX: J18.9 Pneumonia, unspecified organism (principal); J44.0 Chronic obstructive pulmonary disease with (acute) lower respiratory infection; J96.12 Chronic respiratory failure with hypercapnia; J96.11 Chronic respiratory failure with hypoxia; I95.9 Hypotension, unspecified; R56.9 Unspecified convulsions; K21.9 Gastro-esophageal reflux disease without esophagitis; D50.9 Iron deficiency anemia, unspecified; E53.8 Deficiency of other specified B group vitamins; F41.9 Anxiety disorder, unspecified; Z85.118 Personal history of other malignant neoplasm of bronchus and lung; Z99.81 Dependence on supplemental oxygen; Z98.84 Bariatric surgery status; Z87.891 Personal history of nicotine dependence; G89.29 Other chronic pain; M54.50 Low back pain, unspecified
CPT/HCPCS: 36415; 36600; 71045; 71046; 71275; 80047; 80048; 80053; 82607; 82728; 82746; 82805; 82948; 83540; 83550; 83605; 83735; 83880; 84145; 84484; 85018; 85025; 85027; 86738; 87040; 87449; 87637; 87641; 87899; 93005; 94618; 94640; 94667; 94762; 96365; 96367; 99284; 99285; A9270; G0378; J0456; J0692; J1650; Q9967

== ENCOUNTER 2025-02-09 11:24 | Emergency (ER) | payer MEDICARE, SELFPAY ==
[2025-02-09] VITALS (14 sets, daily range): BP systolic 116–135; BP diastolic 72–81; PULSE 73–95; RESP 16–33; TEMP 36.6; O2SAT 96–98
--- NOTE | ~2025-02-09 | XR_ITS ---
XR chest 2V 02/09/2025 14:11 Indication: Dyspnea Procedure: 2 view chest Comparison: Comparison to multiple prior studies sequentially, with oldest reviewed study dated 01/18. Findings: Heart size normal. There is developing bibasilar airspace disease, compatible with pneumoni a. Possible small effusion. No pneumothorax. Impression: 1: Developing bibasilar airspace disease, consistent with pneumonia. Reviewed, dictated and finalized at location A. Impression: 1: Developing bibasilar airspace disease, consistent with pneumonia.
--- OUTSIDE RECORDS SUMMARY | 2025-02-09 11:28 | XMS_ITS | Patient Health Record ---
Author Organization [facility] Address [address] [place] [address] Care Team Providers Care Supervisor Electronic Coils Name Role Phone Tran Roberts Unavailable [phone] Chantel Black Unavailable [phone] Armando Joss Unavailable [phone] Allergies Allergen (clinical drug ingredient) Drug/Non Drug Allergy documented on EMR Reaction Allergy Type Onset Date Status Penicillin hives Drug Allergy Active Reason For Referral No Information Medications Medication SIG (Take, Route, Frequency, Duration) Notes Start Date End Date Status Pregabalin 150 mg 1 capsule orally twice a day 30 days for 30 02/05/2025 Active buPROPion HCl ER (XL) 300 MG TAKE [...] FOR SLEEP Oral for 90 Days Unknown Lidocaine 5 % Take 2 transdermal patches Once a day 30 days for 30 Active Nystatin 499601 UNIT/ML TAKE 5 ML (500,0 00 UNITS [...] Status W/U Status Risk Notes Problem Amnesia (61658564) Other amnesia (R41.3) Active confirmed Problem High risk drug monitoring status (048666932) penitentiary (current) use of opiate analgesic (Z79.891) Active confirmed Problem History of bariatric surgical procedure (611307145) Bariatric surgery status (Z98.84) Active confirmed Problem Lumbar spondylosis (844701300) Lumbar spondylosis (M47.816) Active confirmed Problem Leg length discrepancy (077713415) Leg length discrepancy (M21.70) Active confirmed Problem Hypercholesterolemia (09838209) Hypercholesterolemia (E78.00) Active confirmed Problem Lumbar radiculopathy (039440457) Lumbar radiculopathy (M54.16) Active confirmed Problem Lumbar post-laminectomy syndrome (067610287) Lumbar postlaminectomy syndrome (M96.1) Active confirmed Problem Sacroiliitis (89929777) Sacroiliitis (M46.1) Active confirmed Problem Neck pain (43930248) Cervical sp ine pain (M54.2) Active confirmed Problem Low back pain (363194050) Low back pain (M54.50) Active confirmed Problem Postherpetic neuralgia (5087651) Postherpetic neuralgia (B02.29) Active confirmed Problem COPD - Chronic obstructive pulmonary disease (40228069) COPD (chronic obstructive pulmonary disease) (J44.9) Active confirmed Vital Signs Heart Rate 82 /min 11/09/2024 Respiratory Rate 16 /min 10/12/2024 Height-cm 175.26 cm 11/09/2024 Blood pressure diastolic 88 mm Hg 11/09/2024 Weight-kg 74.39 kg 11/09/2024 Height 5ft 9in in 11/09/2024 Blood pressure systolic 131 mm Hg 11/09/2024 Weight 164 lbs 11/09/2024 BMI 24.22 kg/m2 11/09/2024 Encounters Encounter Location Date Provider Diagnosis [facility] [address] [place] [address] [address] [place] [address] 02/24/2024 Tran Roberts [facility] [address] [place] [address] [address] [place] [address] 03/23/2024 Chantel Black [facility] [address] [place] [address] [address] [place] [address] 04/24/2024 Chantel Black [facility] [address] [place] [address] [address] [place] [address] 01/18/2025 Chantel Black [facility] [address] [place] [address] [address] [place] [address] 05/22/2024 Chantel Black Postherpetic neuralgia B02.29 ; Low back pain M54.50 ; Other amnesia R41.3 ; Bariatric surgery status Z98.84 and salvage determiner use of drug Z79.899 [facility] [address] [place] [address] [address] [place] [address] 06/19/2024 Chantel Black Low back pain M54.50 ; Other amnesia R41.3 ; Postherpetic neuralgia B02.29 and salvage determiner (current) use of opiate analgesic Z79.891 [facility] [address] [place] [address] [address] [place] [address] 07/17/2024 Chantel Black Low back pain M54.50 ; Other amnesia R41.3 ; Postherpetic neuralgia B02.29 and salvage determiner use of drug Z79.899 [facility] [address] [place] [address] [address] [place] [address] 08/14/2024 Chantel Black Other amnesia R41.3 ; Low back pain M54.50 ; Postherpetic neuralgia B02.29 ; Bariatric surgery status Z98.84 and penitentiary (current) use of opiate analgesic Z79.891 [facility] [address] [place] [address] [address] [place] [address] 09/12/2024 Joss Roberts Other amnesia R41.3 ; [...] fracture S32.000A and Thoracic compression fracture S22.000A [facility] [address] [place] [address] [address] [place] [address] 10/12/2024 Joss Armando Low back pain M54.50 [...] and TIA (transient ischemic attack) G45.9 DME [facility] [address] [place] [address] 10/12/2024 Joss Roberts Low back pain M54.50 and Lumbar radiculopathy M54.16 [facility] [address] [place] [address] [address] [place] [address] 11/09/2024 Jossanton Roberts Postherpetic neuralg ia B02.29 [...] ; Bariatric surgery status Z98.84 and penitentiary (current) use of opiate analgesic Z79.891 [facility] [address] [place] [address] [address] [place] [address] 05/22/2024 Tran Roberts [facility] [address] [place] [address] [address] [place] [address] 06/19/2024 Tran Roberts [facility] [address] [place] [address] [address] [place] [address] 07/17/2024 Tran Roberts [facility] [address] [place] [address] [address] [place] [address] 08/14/2024 Tran Roberts [facility] [address] [place] [address] [address] [place] [address] 09/12/2024 Joss Roberts [facility] [address] [place] [address] [address] [place] [address] 10/12/2024 Joss Armando [facility] [address] [place] [address] 11/09/2024 [facility] [address] [place] [address] 01/18/2025 Tran Roberts Assessments Encounter Date Diagnosis [...] Bariatric surgery status (ICD-10 - Z98.84) 06/19/2024 salvage determiner (current) use of opiate analgesic (ICD-10 - Z79.891) 08/14/2024 Bariatric surgery status (ICD-10 - Z98.84) 07/17/2024 penitentiary use of erendira g (ICD-10 - Z79.899) 11/09/2024 Leg length discrepan cy (ICD-10 - M21.70) 10/12/2024 Lumbar radiculopathy (ICD-10 - M54.16) 10/12/2024 Lumbar postlaminecto my syndrome (ICD-10 - M96.1) 11/09/2024 Lumbar radiculopathy (ICD-10 - M54.16) 08/14/2024 penitentiary (current) use of opiate analgesic (ICD-10 - Z79.891) 05/22/2024 penitentiary use of erendira g (ICD-10 - Z79.899) 09/12/2024 Bariatric surgery status (ICD-10 - Z98.84) 09/12/2024 salvage determiner (current) use of opiate analgesic (ICD-10 - [...] ische antoine attack) (ICD-10 - G45.9) 11/09/2024 penitentiary (current) use of opiate analgesic [...] 4 views 4 Next Appt Details Provider Name:Chantel taylor, 02/15/2025 10:30:00 AM, [address] [place] [address], [address], [address], Insurance Providers Payer Name Payer Address Payer Phone Subscriber Number Group Number Insured Name Patient Relationship to Insured Coverage Start Date Coverage End Date Medicare of [place] J5 [address] [address] [place] [address] [id number] Kiran Smith Self - patient is the insured 1 [facility] [address] [place] [address] [id number] PLAN G Kiran Smith Self - patient is the insured Medical (General) History Medical History History ICD Code Lung cancer Depression TIA Post herpetic neuralgia Surgical History Surgery Date(Month/Year) Gastric bypass ORIF left leg right middle lobectomy Hospitalization History Reason Date(Month/Year) no hospitalization since prior visit
--- OUTSIDE RECORDS SUMMARY | 2025-02-09 11:28 | XMS_ITS | Clinical Summary ---
Author Organization [facility] Address [address] [place] [address] Care Team Providers Care Personnel Interviewer Name Role Phone Vickey Hernandez MD Primary Care Provider [phone] Source Comments [facility],non-owned Affiliates and Associated Physician Practices is amultiple site organization consisting of ambulatory clinics and hospital sitesin [place], [place], [place] and [place]. This disclosure is being madepursuant to the Care Everywhere program and may not contain all information available regarding this patient. Last updated 18.[facility] Allergies No known active allergies Medications * [...] Date Smoking Tobacco: Every Day Cigarettes 0.5 50.4 Started: 1974 Smokeless Tobacco: Never Tobacco Cessation:Ready [...] and heating? Not hard at all 12/03/2022 [facility] of Occupat ional Health - Occupational Stress [...] place to sleep or slept in a custodial (including now)? No 12/03/2022 Sex and Gender Information Value Date Recorded Sex Assigned at Not on file Legal Sex Male 9:21 AM CDT Gender Identity Not on file Sexual Orientation Not on file Last Filed Vital Signs Vital Sign Reading Time Taken Comments Blood Pressure 142/81 12/06/2022 9:17 AM REBRANDER Pulse 96 12/06/2022 9:17 AM REBRANDER Temperature 37 C (98.6 F) 12/06/2022 7:57 AM REBRANDER Respiratory Rate 18 12/06/2022 10:29 AM REBRANDER Oxygen Saturation 94% 12/06/2022 10:29 AM REBRANDER Inhaled Oxygen Concentration - - Weight 77.1 kg (170 lb) 11/29/2022 2:06 PM REBRANDER Height 172.7 cm (5' 8 ) 11/29/2022 2:06 PM REBRANDER Body Mass Index 25.85 11/29/2022 2:06 PM REBRANDER Plan of Treatment Health Maintenance Due Date [...] this topic Medical Devices Implanted Type Area Professor Of Astronomy Device Identifier Shelf Expiration Date Model / Serial / Lot Screw 4mm 5mm 60mm .5 Thrd Rvrs Cut Flut Implanted:Qty: 1 on 11/30/2022 by Felipe Garcia MD at [facility] Left: [employer]ia [employer] [id number] / / Screw 4mm 5mm 80mm .5 Thrd Rvrs Cut Flut Implanted:Qty: 1 on 11/30/2022 by Felipe Garcia MD at [facility] Left: [employer] [id number] / / Nail Implanted:Qty: 1 on 11/30/2022 by Felipe Garcia MD at [facility] Left: [employer]ia [employer] 06/03/2029 [id number] / / Screw 5mm 3.5mm 40mm Ft Slf-Tap Fx Ang Implanted:Qty: 1 on 11/30/2022 by Felipe Garcia MD at [facility] Left: [employer] 09/12/2032 [id number] / / Screw 5mm 3.5mm 45mm Ft Fx Ang Hex Head Implanted:Qty: 1 on 11/30/2022 by Felipe Garcia MD at [facility] Left: [employer] 10/26/2032 [id number] / / Screw 5mm 3.5mm 47.5mm Ft Slf-Tap Fx Ang Implanted:Qty: 1 on 11/30/2022 by Felipe Garcia MD at [facility] Left: [employer]ia [employer] 07/20/2032 [id number] / / Screw 5mm 3.5mm 50mm Ft Slf-Tap Fx Ang Implanted:Qty: 1 on 11/30/2022 by Felipe Garcia MD at [facility] Left: [employer] 07/06/2032 [id number] / / Screw 5mm 3.5mm 40mm Ft Slf-Tap Fx Ang Implanted:Qty: 1 on 11/30/2022 by Felipe Garcia MD at [facility] Left: [employer] 09/12/2032 [id number] / / Screw 5mm 3.5mm 60mm Ft Fx Ang Hex Head Implanted:Qty: 1 on 11/30/2022 by Felipe Garcia MD at [facility] Left: [employer] 12/24/2031 [id number] / / Explanted Type Area Professor Of Astronomy Device Identifier Shelf Expiration Date Model / Serial / Lot Nail Explanted:Qty: 1 on 11/30/2022 by Felipe Garcia MD at [facility] Left: [employer] 09/02/2025 [id number] / / Screw 5mm 3.5mm 70mm Ft Slf-Tap Fx Ang Explanted:Qty: 1 on 11/30/2022 by Felipe Garcia MD at [facility] Left: [employer] 08/02/2032 [id number] / / Procedures Procedure Name Priority Date/Time Associated Diagnosis Comments BASIC METABOLIC PANEL (CALCIUM TOTAL) Routine 12/06/2022 1:09 AM REBRANDER Closed fracture of left tibia and fibula, initial encounter from Last 3 Months or Most Recently Relevant to Health Maintenance Results * (ABNORMAL) BASIC METABOLIC PANEL (CALCIUM TOTAL) (12/06/2022 1:09 AM [facility]) BUN 12 7 - 26 mg/dL 12/06/2022 2:03 AM [facility] Creatinine 0.88 0.71 - 1.16 mg/dL 12/06/2022 2:03 AM [facility] Sodium 141 136 - 145 mmol/L 12/06/2022 2:03 AM [facility] Potassium 4.0 3.5 - 4.5 mmol/L 12/06/2022 2:03 AM [facility] Chloride 106 98 - 107 mmol/L 12/06/2022 2:03 AM [facility] CO2 27 22 - 29 mmol/L 12/06/2022 2:03 AM [facility] Glucose 88 70 - 115 mg/dL 12/06/2022 2:03 AM [facility] Calcium 7.6(L) 8.4 - 10.2 mg/dL 12/06/2022 2:03 AM [facility] Anion Gap 12 8 - 18 12/06/2022 2:03 AM [facility] BUN/Creatinine Ratio 14 7 - 23 12/06/2022 2:03 AM [facility] Osmolality Calculated 291 270 - 300 mOsm/kg 12/06/2022 2:03 AM [facility] eGFR by CKD-EPI >90 >=90 mL/min/1.7 3 m2 12/06/2022 2:03 AM [facility] Blood BLOOD SPECIMEN / Unknown Lab Venipuncture / Unknown 12/06/2022 1:09 AM REBRANDER 12/06/2022 1:28 AM [facility] Caterina Lind MD LAB - CHEMISTRY ORDERABLES Fin al Result [facility] [address] [place] [address], [place] [phone] from Last 3 Months or Most Recently Relevant to Health Maintenance Insurance MEDICAID - [place] MEDICARE [facility] Care Teams Personnel Interviewer Relationship Specialty Start Date End Date Vickey Hernandez MD [address] [place] [address] PCP - General 08/04/19
--- OUTSIDE RECORDS SUMMARY | 2025-02-09 11:28 | XMS_ITS ---
Author Organization [facility] Address [address] [place] [address] [address] [place] [address] Care Team Providers Care Hand Bobbin Cleaner Name Role Phone WayneChantel Unavailable [phone] REASON FOR VISIT meds- FB25 Encounters Encounter Location Date Provider Diagnosis [facility] [address] [place] [address] [address] [place] [address] 01/18/2025 Chantel Black Plan Of Treatment Next Appt Details Provider Name:Chantel Blum ns, 02/15/2025 10:30:00 AM, [address], [address], [place], [address], Progress Notes * Manuel SMITHeDOB:1960 (64 yo M)Acc No.[id number]:01/18/2025 Patient: Dillon CHATMAN Kiran Appointment Provider: Jabari Black NP :1960 A ge:64 Y S ex:Male Date:01/18/2025 Address:[address] [place] [address] [facility] Subjective: * Chief Complaints: * 1 . meds- FB25. * Medical History: Objective: * Vitals: Assessment: Plan: * Treatment: * Billing Information: * Visit Code: * Procedure Codes: * Electronic signature of Fran Black DNP/NELL on 02/09/2025 at 11:28 AM CDT Sign off status: Pending * Appointment Provider: Jabari Black NP Date: 0 01/18/2025 Generated for Printing/Faxing/eTransmitting on: 0 02/09/2025 11:28 AM CDT
--- OUTSIDE RECORDS SUMMARY | 2025-02-09 11:28 | XMS_ITS ---
Author Organization [facility] Address [address] [place] [address] [address] [place] [address] Care Team Providers Care Color Tester Name Role Phone Armando, Tranriley Ngo [phone] Medications Medication SIG (Take, Route, Fr equency, Duration) Notes Start Date End Date Status oxyCODONE HCl 5 MG/5ML 10 milliliters Or al every 4 hours for 30 days 01/18/2025 Active Encounters Encounter Location Date Provider Diagnosis [facility] [address] [place] [address] [address] [place] [address] 01/18/2025 Tran Roberts Plan Of Treatment Medication Medication Name Sig Start Date Stop Date Notes oxyCODONE HCl 5 MG/5ML 10 milliliters Or al every 4 hours for 30 days 01/18/2025 Next Appt Details Provider Name:Chantel taylor, 02/15/2025 10:30:00 AM, [address] [place] [address], [address], [place], [address], Progress Notes * Manuel WHALENeDOB:1960 (64 yo M)Acc No.[id number]:01/18/2025 Patient: Kiran VILLAFANA :1960 A ge:64 Y S ex:Male Address:[address] [place] [address], [address] * Refills Refill oxyCODONE HCl Solution, 5 MG/5ML, 1800 Milliliter, 10 milliliters Oral, every 4 hours, 30 days, Refills=0 * true * Date: Generated for Dalton chin/Ema/Laureitting on: 0 02/09/2025 11:28 AM CDT
--- OUTSIDE RECORDS SUMMARY | 2025-02-09 11:28 | XMS_ITS | Clinical Summary ---
Author Organization [facility] Address [address] [address] [place] [address] Phone Care Team Providers Care Pulverizer Tender Name Role Phone Vickey Hernandez MD Primary [...] Pain. 0 Active naloxone (NARCAN) 4 mg/spray [place], Non-Aerosol EMERGENCY USE ONLY: Administer 1 spray [...] Encounters Date Type Department Care Team Description 01/30/2025 Orders Only [facility] Oncology and Hematology - [place] [address] [place] [address] Juliocesar Zelaya MD 01/19/2025 Orders Only [facility] Oncology and Hematology [facility] [address] [place] [address] Juliocesar Zelaya MD 01/18/2025 10:15 AM CDT Office Visit [facility] Oncology and Hematology [facility] [address] [place] [address] Juliocesar Zelaya MD Non-small cell cancer of right lung (CMS/HCC) (Primary Dx) 01/16/2025 External Device Data STL ABSTRACTION Provider, Abstract 01/12/2025 Telephone [facility] Oncology and Hematology [facility] [address] [place] [address] Juliocesar Zelaya MD Missed Call 01/02/2025 External [...] Care Team (Late st Contact Info) Description 02/19/2025 4:30 PM CDT Telephone Check Up [facility] Oncology and Hematology - [place] [address] [facility] [address] [place] [address] Juliocesar Zelaya MD [address] [place] [address] Health Maintenance Due Date Last [...] series) 2034 Medical Devices Implanted Type Area Conduit Bender Device Identifier Shelf Expiration Date Model / Serial / Lot Clip Ligating Horizon Lg Ti 191863 - Csc - [id number] Implanted:Qty: 1 on 01/23/2020 by Oscar Michel MD at [facility] Clip Right: Chest TELEFLEX- WECK CLOSURE SYS 10/09/2023 [id number] / / [id number] Clip Ligating Horizon Med Ti 713949 - Csc - [id number] Implanted:Qty: 4 on 01/23/2020 by Oscar Michel MD at [facility] Clip Right: Chest TELEFLEX- WECK CLOSURE SYS 06/19/2024 [id number] / / [id number] Sealant Fibrin Evicel 5ml 3905 - [id number] Implanted:Qty: 1 on 01/23/2020 by Oscar Michel MD at [facility] Other Right: Chest [employer] 06/03/2021 3905 / [id number] / [id number] Adh Bioglue 10ml [id number] - [id number] Implanted:Qty: 1 on 01/23/2020 by Oscar Michel MD at [facility] Tissue Right: Chest [employer] 07/09/2021 [id number] / / [id number] [place] Ptfe Thck 2.8mmx2.5x2.5c m [id number] - [id number] Implanted:Qty: 1 on 01/23/2020 by Oscar Michel MD at [facility] Tissue Right: Chest CR BARD[employer] 10/31/2021 [id number] / / [id number] Hardware Back Explanted Type Area Conduit Bender Device Identifier Shelf Expiration Date Model / Serial / Lot Hemostatic Surgicel 4x8in 1952 - [id number] Explanted:Qty: 1 on 01/23/2020 at [facility] Hemostatic Right: Chest [employer] 06/03/20221951 / / [id number] Procedures Procedure Name Priority Date/Time Associated Diagnosis Comments CTA CHEST W AND/OR WO CONTRAST Routine 01/18/2025 12:46 PM CDT COMPREHENSIVE METABOLIC PANEL Routine 01/18/2025 11:39 AM CDT from Last 3 Months Results * CTA CHEST W AND/OR WO CONTRAST (01/18/2025 12:46 PM CDT) Anatomical Region Laterality Modality Chest Computed Tomogra phy Juliocesar Zelaya MD CT ORDERABLES Final Result * COMPREHENSIVE METABOLIC PANEL (01/18/2025 11:39 AM CDT) Blood Juliocesar Zelaya MD CHEMISTRY ORDERABLES Final Resu lt from Last 3 Months Insurance RX [facility] Commercial MEDICAID [place] MED[place]ARE PART A AND B [facility] MEDICARE PART A AND B [facility] MEDICAID [place] Advance Directives For more information, please contact: [phone] * Full Code (Latest Code Status on File) Date Activated Date Inactivated Comments 01/23/2020 8:52 AM 01/27/2020 2:16 PM * Full Code Date Activated Date Inactivated Comments 01/23/2020 5:22 AM 01/23/2020 8:52 AM * Full Code Date Activated Date Inactivated Comments 07/08/2017 6:32 PM 07/09/2017 5:38 PM * Full Code Date Activated Date Inactivated Comments 07/08/2017 3:18 PM 07/08/2017 3:50 PM Care Teams Pulverizer Tender Relationship Specialty Start Date End Date Vickey Hernandez MD [address] [place] [address] PCP - General Internal Medicine 07/09/17
--- OUTSIDE RECORDS SUMMARY | 2025-02-09 11:29 | XMS_ITS | Clinical Summary ---
Author Organization [facility] Address [address] [place] [address] Care Team Providers Care Inhalation Therapy Aides Teacher Name Role Phone Vickey Hernandez MD Primary Care Provider [phone] Allergies Active Allergy Reactions Criticality Noted Date Comments Penicillins Unknown 07/08/2017 Medications buPROPion XL (WELLBUTRIN XL) 300 MG 24 hr tablet Take 1 tablet (300 mg total) by mouth every morning. Active TRELEGY ELLIPTA 100-62.5-25 MCG/ACT AEROSOL POWDER, BREATH ACTIVATED Inhale 1 puff into the lungs daily. Active levETIRAcetam ER (KEPPRA XR) 500 MG 24 hr tablet Take 1 tablet (500 mg total) by mouth 2 (two) times a day. 01/27/2025 Active levoFLOXacin (LEVAQUIN) 750 MG tablet Take 1 tablet (750 mg total) by mouth daily. 01/25/2025 Active LORazepam (ATIVAN) 0.5 MG tablet Take 1 tablet (0.5 mg total) by mouth 3 (three) times daily as needed. FOR ANXIETY 01/04/2025 Active lidocaine (LIDODERM) 5 % Place 2 patches onto the skin daily. Active midodrine (PROAMATINE) 2.5 MG tablet Take 1 tablet (2.5 mg total) by mouth 2 (two) times daily. 01/18/2025 Active oxyCODONE (ROXICODONE) 5 MG/5ML solution Take 10 mLs (10 mg total) by mouth every 4 (four) hours as needed for Pain. Active pregabalin (LYRICA) 150 MG capsule Take 1 capsule (150 mg total) by mouth 2 (two) times daily. Active tiZANidine (ZANAFLEX) 4 MG tablet Take 1 tablet (4 mg total) by mouth every 8 (eight) hours as needed (muscle spasms). 01/02/2025 Active traZODone (DESYREL) 50 MG tablet Take 1-2 tablets (50-100 mg total) by mouth nightly at bedtime. 01/02/2025 Active cyanocobalamin (B-12) 1000 MCG/ML injection Inject 1 mL (1,000 mcg total) into the muscle every 30 (thirty) days. 12/07/2024 Active Encounters Date Type Department Care Team Description 01/28/2025 5:49 PM CDT - 01/28/2025 10:33 PM CDT Emergency [facility] [place] [address] Migue Gilbert MD Altered Mental Status Discharge Disposition: Home or Self Care (Routine Discharge) 01/28/2025 Travel from Last 3 Months Social History Tobacco Use Types Packs/Day Years Used Date Smoking Tobacco: Never Assessed Sex and Gender Information Value Date Recorded Sex Assigned at Male 01/28/2025 5:49 PM CDT Legal Sex Male 12:14 AM CDT Gender Identity Not on file Sexual Orientation Not on file Last Filed Vital Signs Vital Sign Reading Time Taken Comments Blood Pressure 129/77 01/28/2025 9:15 PM CDT Pulse 71 01/28/2025 9:15 PM CDT Temperature 36.4 C (97.6 F) 01/28/2025 5:56 PM CDT Respiratory Rate 15 01/28/2025 9:15 PM CDT Oxygen Saturation 93% 01/28/2025 9:15 PM CDT Inhaled Oxygen Concentration - - Weight 66.4 kg (146 lb 6.2 oz) 01/28/2025 5:56 P M CDT Height 175.3 cm (5' 9 ) 01/28/2025 5:56 PM CDT Body Mass Index 21.62 01/28/2025 5:56 PM CDT Plan of Treatment Health Maintenance Due Date Last Done Comments Colorectal Cancer Screening Colonoscopy (10 Years) 1960 Hepatitis C 1977 Pneumococcal Vaccine: 50+ Ye ars (1 of 1 - PCV) 2009 Zoster Vaccines (1 of 2) 2009 COVID-19 Vaccine (1 - 2023-2 5 season) 2024 PHQ-2 (Physician Andreafski) 10/04/2024 DTaP, Tdap and Td Vaccines ( 2 - Td or Tdap) 11/29/2032 11/29/2022 RSV Immunization or 60+ Years (1 - [...] this topic Medical Devices Implanted Type Area Tool Clerk Device Identifier Shelf Expiration Date Model / Serial / Lot Stimulator Implant Stimulator Implant Description:Stimulator remov ed but leads remain - no MRI Procedures Procedure Name Priority Date/Time Associated Diagnosis Comments TROPONIN, QUANT STAT 01/28/2025 8:53 PM CDT DRUG SCREEN RAPID STAT 01/28/2025 8:2 8 PM CDT HC URINALYSIS AUTO W/O MICRO STAT 01/28/2025 8:28 PM CDT ELECTROCARDIOGRAM REPORT Routine 025 8:06 PM CDT ECG 12-LEAD Routine 01/28/2025 7:45 PM CDT LACTIC ACID W REFLEX (SEPSIS) STAT 01/28/2025 7:25 PM CDT XR CHEST PORTABLE STAT 01/28/2025 6:4 4 PM CDT ETHANOL STAT 01/28/2025 6:19 PM CDT TROPONIN, QUANT STAT 01/28/2025 6:19 PM CDT COMPREHENSIVE METABOLIC PANEL STAT 01/28/2025 6:19 PM CDT PARTIAL THROMBOPLASTIN TIME,PTT STAT 01/28/2025 6:19 PM CDT PROTHROMBIN TIME, VENOUS STAT 025 6:19 PM CDT CBC W/DIFF AUTOMATED STAT 01/28/2025 6:19 PM CDT from Last 3 Months Results * TROPONIN, QUANT (01/28/2025 8:53 PM CDT) Only the most recent of2 resultswithin the time period is included. [facility] TROPONIN I HIGH SENSITIVITY 7 <79 ng/L 01/28/2025 9:33 PM CDT [facility] Comment: HIGH DOSES OF BIOTIN, TROPONIN-SPECIFIC AUTOANTIBODIES, AND ANTIBODY THERAPY CONTAINING HAMA MAY INTERFERE WITH THIS TEST RESULT. CORRELATION TO CLINICAL HISTORY AND PRESENTATION RECOMMENDED. 01/28/2025 8:53 PM CDT Migue Gilbert MD LABORATORY Final Result [facility] [address] [place] [id number], * (ABNORMAL) DRUG SCREEN RAPID (01/28/2025 8:28 PM CDT) Pathologist [facility] AMPHETAMINE (U) POSITIVE(A) NEGATIVE 01/29/20 9:12 PM CDT [facility] BARBITURATES SCREEN (U) NEGATIVE NEGATIVE 01/28/2025 9:12 PM CDT [facility] BENZODIAZEPINES SCREEN (U) NEGATIVE NEGATIVE 01/28/2025 9:12 PM CDT [facility] CANNABINOIDS SCREEN (U) POSITIVE(A) NEGATIVE 01/28/2025 9:12 PM CDT [facility] COCAINE METABOLITES (U) NEGATIVE NEGATIVE 01/28/2025 9:12 PM CDT [facility] METHADONE (U) NEGATIVE NEGATIVE 01/28/2025 9:12 PM CDT [facility] OPIATE SCREEN (U) POSITIVE(A) NEGATIVE 2024 9:12 PM CDT [facility] PHENCYCLIDINE PCP (U) NEGATIVE NEGATIVE 01/28/2025 9:12 PM CDT [facility] Comment: NOTE: RESULTS OF THIS DRUG SCREEN SHOULD BE USED FOR MEDICAL PURPOSES ONLY AND NOT FOR LEGAL OR EMPLOYMENT PURPOSES. POSITIVE RESULTS ARE NOT CONFIRMED. MEDICATIONS CONTAINING EPHEDRINE MAY CAUSE FALSE POSITIVE AMPHETAMINE CALL [phone], LAB, TO REQUEST CONFIRMATION TESTING. IF CREATININE IS <40 mg/dL. RECOLLECTION IS SUGGESTED. AMPHETAMINE- 500 NG/ML BARBITURATE- 200 NG/ML BENZODIAZEPINES- 200 NG/ML THC- 50 NG/ML COCAINE- 150 NG/ML METHADONE- 300 NG/ML OPIATE- 300 MG/ML PCP- 25 NG/ML CREATININE (U) 187.0 39 - 259 MG/DL 01/28/2025 9:12 PM CDT [facility] URINE SPECIMEN / Unknown 01/28/2025 8:28 PM CDT Migue Gilbert MD URINE ORDERABLES Final Result [facility] [address] [place] [address], * (ABNORMAL) URINALYSIS (01/28/2025 8:28 PM CDT) SPECIMEN TYPE URINE CLEAN CATCH 01/28/2025 8:26 PM CDT [facility] COLOR (U) YELLOW 01/28/2025 8:42 PM CDT [facility] TRANSPARENCY CLEAR 01/28/2025 8:42 PM CDT [facility] SPECIFIC GRAVITY (U) 1.029 1.001 - 1.030 01/28/2025 8:42 PM CDT [facility] U PH 5.5 5.0 - 9.0 01/28/2025 8:42 PM CDT [facility] LEUKOCYTES (U) 25(A) NEGATIVE 01/28/2025 8:42 PM CDT [facility] NITRITES NEGATIVE NEGATIVE 01/28/2025 8:42 PM CDT [facility] PROTEIN RANDOM (U) 20 <30 MG/DL 01/28/2025 8:42 PM CDT [facility] GLUCOSE (U) NORMAL NORMAL MG/DL 01/28/2025 8:42 PM CDT [facility] KETONES MG/DL (U) NEGATIVE NEGATIVE MG/DL 01/28/2025 8:42 PM CDT [facility] UROBILINOGEN NORMAL NORMAL MG/DL 01/28/2025 8:42 PM CDT [facility] BILIRUBIN (U) NEGATIVE NEGATIVE MG/DL 01/28/2025 8:42 PM CDT [facility] BLOOD (U) 3+(A) NEGATIVE 01/28/2025 8:42 PM CDT [facility] MUCUS RARE /LPF 01/28/2025 8:42 PM CDT [facility] HYALINE CASTS RARE /LPF 01/28/2025 8:42 PM CDT [facility] WBC/HPF 4 <6 /HPF 01/28/2025 8:42 PM CDT [facility] RBC/HPF >100(H) <6 /HPF 01/28/2025 8:42 PM CDT [facility] CA OXALATE CRYSTALS RARE /HPF 01/28/2025 8:42 PM CDT [facility] SQUAMOUS EPITHELIALS RARE /HPF 01/28/2025 8:42 PM CDT [facility] URINE SPECIMEN OBTAINED BY CLEAN CATCH PROCEDURE / Unknown 01/28/2025 8:28 PM CDT Migue Gilbert MD URINE ORDERABLES Final Result [facility] [address] [place] [address], * EKG Reading (01/28/2025 8:06 PM CDT) Narrative Migue Gilbert MD - 01/28/2025 8:06 PM CDT Migue Gilbert MD 01/28/2025 10:23 PM EKG Reading Date/Time: 01/28/2025 8:06 PM Performed by: Migue Gilbert MD Authorized by: Migue Gilbert MD Interpreted by ED physician Previous ECG: no previous ECG available Rhythm: sinus rhythm Rate: normal BPM: 72 Comments: Normal sinus rhythm. Heart rate 72. Normal axis Norval normal QRS nonspecific ST-T wave changes. No old EKGs to compare Rhythm strip ordered and interpreted 1944 Normal sinus rhythm. Heart rate 72. No ectopy Migue Gilbert MD [place] [facility] Final Result * ECG 12 lead (01/28/2025 7:45 PM CDT) 01/28/2025 7:4 5 PM CDT Narrative [facility] ([facility] RAD - 01/29/2025 11:20 AM CDT [address] Test Date: 2025-01-28 Pat Name: KIRAN SMITH Department: 41 Room: [place] [address] Gender: Male Local Operator: : 1960 Requested By: MIGUE GILBERT Order Number: [id number] Reading MD: Chandana Knox Measurements Intervals [place] Rate: 72 P: 78 [place]: 185 QRS: 3 QRSD: 109 T: 59 QT: 376 QTc: 413 Interpretive Statements SINUS RHYTHM Compared to ECG 03/01/2016 16:33:55 No significant changes Procedure Note Chandana Knox MD - 01/29/[address] Test Date: 2025-01-28 Pat Name: KIRAN SMITH Department: 41 Room: [place] [address] Gender: Male Local Operator: : 1960 Requested By: MIGUE GILBERT Order Number: [id number] Reading MD: Chandana Knox Measurements Intervals [place] Rate: 72 P: 78 [place]: 185 QRS: 3 QRSD: 109 T: 59 QT: 376 QTc: 413 Interpretive Statements SINUS RHYTHM Compared to ECG 03/01/2016 16:33:55 No significant changes Migue Giblert MD ECG ORDERABLES Final Result [facility] ([facility] * LACTIC ACID W REFLEX (SEPSIS) (01/28/2025 7:25 PM CDT) LACTIC ACID VENOUS 0.6 0.4 - 2.0 MMOL/L 01/28/2025 8:18 PM CDT [facility] 01/28/2025 7:25 PM CDT Migue Gilbert MD LABORATORY Final Result [facility] [address] [place] [address], [place] [phone] * XR CHEST PORTABLE (01/28/2025 6:44 PM CDT) Anatomical Region Laterality Modality Chest Radiographic Haydee ging 01/28/2025 6:58 PM CDT Impressions 01/28/2025 7:04 PM CDT IMPRESSION: Bilateral lung abnormalities. Referred By: Interpreted By: Randy Lubin MD, 01/28/2025 6:58 PM Narrative 01/28/2025 7:04 PM CDT [address] [address] EXAM: XR CHEST PORTABLE DATE: 01/28/2025 1835 hours Comparison 03/09/2014 INDICATION: Cough, AMS, weakness, lethargy. Recent admission for pneumonia/flu. Lung cancer. TECHNIQUE: One view FINDINGS: Normal heart and pulmonary vessel size. Mild ill-defined densities in both lungs. These are new. Potential areas of edema, atelectasis, or infection. Elevation of left hemidiaphragm is a new finding. Thoracic stimulator leads were present previously. Surgical clips in the right apex. Asymmetric soft tissue fullness in the left apex could be pleural fluid or pleural thickening. No acute bone findings. Procedure Note Randy Lubin MD - 01/28/[address] [address] EXAM: XR CHEST PORTABLE DATE: 01/28/2025 1835 hours Comparison 03/09/2014 INDICATION: Cough, AMS, weakness, lethargy. Recent admission forpneumonia/flu. Lung cancer. TECHNIQUE: One view FINDINGS: Normal heart and pulmonary vessel size. Mild ill-defineddensities in both lungs. These are new. Potential areas of edema,atelectasis, or infection. Elevation of left hemidiaphragm is a newfinding. Thoracic stimulator leads were present previously. Surgicalclips in the right apex. Asymmetric soft tissue fullness in the left apexcould be pleural fluid or pleural thickening. No acute bone findings. IMPRESSION: Bilateral lung abnormalities. Referred By: Interpreted By: Randy Lubin MD, 01/28/2025 6:58 PM Migue Gilbert MD GENERAL IMAGING Final Result * PARTIAL THROMBOPLASTIN TIME,PTT (01/28/2025 6:19 PM CDT) Pathologist [facility] PTT 31.4 25.1 - 36.5 SEC 01/28/2025 7:14 PM CDT [facility] 01/28/2025 6:19 PM CDT Migue Gilbert MD LABORATORY Final Result Performing Organization Address [facility]/ZIP Co de Phone Number [facility] [address] [place] [address], [place] [phone] * PROTIME/INR, VENOUS (01/28/2025 6:19 PM CDT) Pathologist [facility] PROTIME 12.3 10.2 - 12.9 SEC 01/28/2025 7:14 PM CDT [facility] INR 1.1 01/28/2025 7:14 PM CDT [facility] Comment: Recommended INR Therapeutic Goals: 2.0-3.0 Routine Therapy 2.5-3.5 Mechanical Prosthetic Valves (High Risk) 01/28/2025 6:19 PM CDT Migue Gilbert MD LABORATORY Final Result Performing Organization Address City/[facility]/ZIP Co de Phone Number [facility] [address] [place] [address], [place] [phone] * (ABNORMAL) COMPREHENSIVE METABOLIC PANEL (01/28/2025 6:19 PM CDT) Pathologist [facility] GLUCOSE 89 70 - 99 MG/DL 01/28/2025 7:32 PM CDT [facility] BUN 21(H) 7 - 18 MG/DL 01/28/2025 7:32 PM CDT [facility] CREATININE S/P/B 1.03 0.7 - 1.3 MG/DL 01/28/2025 7:32 PM CDT [facility] SODIUM S/P/B 135(L) 136 - 145 MMOL/L 01/28/2025 7:32 PM CDT [facility] POTASSIUM S/P/B 5.0 3.5 - 5.1 MMOL/L 01/28/2025 7:32 PM CDT [facility] Comment:SLIGHT HEMOLYSIS, RE SULT MAY BE AFFECTED. CHLORIDE S/P/B 103 97 - 115 MMOL/L 01/28/2025 7:32 PM CDT [facility] CO2 25.1 21 - 32 MMOL/L 01/28/2025 7:32 PM CDT [facility] CALCIUM S/P/B 8.8 8.5 - 10.1 MG/DL 01/28/2025 7:32 PM CDT [facility] BILIRUBIN TOTAL S/P/B 0.4 0.2 - 1.2 MG/DL 01/28/2025 7:32 PM CDT [facility] Comment: THIS ASSAY IS NOT RECOMMENDED FOR PATIENTS UNDERGOING TREATMENT WITH ELTROMBOPAG DUE TO THE POTENTIAL FOR FALSELY ELEVATED RESULTS. TOTAL PROTEIN S/P/B 7.8 6.4 - 8.2 G/DL 01/28/2025 7:32 PM CDT [facility] ALBUMIN S/P/B 2.8(L) 3.4 - 5.0 G/DL 01/28/2025 7:32 PM CDT [facility] AST 32 15 - 37 U/L 01/28/2025 7:32 PM CDT [facility] Comment:SLIGHT HEMOLYSIS, RE SULT MAY BE AFFECTED. ALT 23 16 - 60 U/L 01/28/2025 7:32 PM CDT [facility] ALKALINE PHOSPHATASE S/P/B 117 50 - 136 U/L 01/28/2025 7:32 PM CDT [facility] ANION GAP 6.9 2 - 10 MMOL/L 01/28/2025 7:32 PM CDT [facility] BUN CREATININE RATIO 20.4 6 - 26 01/28/2025 7:32 PM CDT [facility] A/G RATIO 0.6(L) 1.0 - 2.0 RATIO 01/28/2025 7:32 PM CDT [facility] GFR ESTIMATE 81(L) >90 ML/MIN/1.7 3 M2 01/28/2025 7:32 PM CDT [facility] Comment: NOTE: eGFR is not calculated for patients <18 years of age or gender unknown. This is an estimated GFR calculation using the new CKD EPI creatinine equation without race and so does not require a correction factor for race. This estimated GFR should not be used for calculating drug doses. 01/28/2025 6:19 PM CDT Migue Gilbert MD LABORATORY Final Result [facility] [address] [place] [address], [place] [phone] * (ABNORMAL) CBC W/DIFF AUTOMATED (01/28/2025 6:19 PM CDT) WBC 8.14 4.5 - 11.0 x10'3/uL 01/28/2025 6:55 PM CDT [facility] RBC 5.20 4.70 - 6.10 x10'6/uL 01/28/2025 6:55 PM CDT [facility] HGB 13.0(L) 14.0 - 18.0 G/DL 01/28/2025 6:55 PM CDT [facility] HCT 42.7(L) 43.0 - 54.0 % 01/28/2025 6:55 PM CDT [facility] MCV 82.1 80.0 - 94.0 FL 01/28/2025 6:55 PM CDT [facility] MCH 25.0(L) 27.0 - 31.0 PG 01/28/2025 6:55 PM CDT [facility] MCHC 30.4(L) 32.0 - 36.0 G/DL 01/28/2025 6:55 PM CDT [facility] RDW 16.7(H) 11.5 - 14.5 % 01/28/2025 6:55 PM CDT [facility] PLT 320 130 - 400 x10'3/uL 01/28/2025 6:55 PM CDT [facility] MPV 9.4 9.3 - 12.2 FL 01/28/2025 6:55 PM CDT [facility] DIFFERENTIAL TYPE AUTOMATED DIFFERENTIAL 01/28/2025 6:55 PM CDT [facility] NEUTROPHILS % 63.8 % 01/28/2025 6:55 PM CDT [facility] LYMPHOCYTES % 17.6 % 01/28/2025 6:55 PM CDT [facility] MONOCYTES % 11.9 % 01/28/2025 6:55 PM CDT [facility] EOSINOPHILS 5.2 % 01/28/2025 6:55 PM CDT [facility] BASOPHILS 1.1 % 01/28/2025 6:55 PM CDT [facility] IMMATURE GRANS % 0.4 % 01/29/20 6:55 PM CDT [facility] ABS. NEUTROPHILS 5.20 1.80 - 7.70 x10'3/uL 01/28/2025 6:55 PM CDT [facility] ABS. LYMPHOCYTES 1.43 1.00 - 4.80 x10'3/uL 01/28/2025 6:55 PM CDT [facility] ABS. MONOCYTES 0.97(H) 0.30 - 0.82 x10'3/uL 01/28/2025 6:55 PM CDT [facility] ABS. EOSINOPHILS 0.42 0.04 - 0.54 x10'3/uL 01/28/2025 6:55 PM CDT [facility] ABS. BASOPHILS 0.09(H) 0.01 - 0.08 x10'3/uL 01/28/2025 6:55 PM CDT [facility] ABS. IMMATURE GRANULOCYTES 0.03 0.00 - 0.49 x10'3/uL 01/28/2025 6:55 PM CDT [facility] 01/28/2025 6:19 PM CDT Migue Gilbert MD LABORATORY Final Result Performing Organization Address City/[facility]/ZIP Co de Phone Number [place] [phone], * ETHANOL (01/28/2025 6:19 PM CDT) ALCOHOL S/P/B <0.003 <0.003 G/DL 01/28/2025 7:32 PM CDT [facility] 01/28/2025 6:19 PM CDT Migue Gilbert MD LABORATORY Final Result [facility] [address] [place] [address], [place] [phone] from Last [address] [place] [address] [place] [address] MEDICARE Care Teams Inhalation Therapy Aides Teacher Relationship Specialty Start Date End Date Vickey Hernandez MD PCP - General 01/06/17
--- OUTSIDE RECORDS SUMMARY | 2025-02-09 11:29 | XMS_ITS | Encounter Summary ---
Author Organization [facility] Address [address] [place] [address] Care Team Providers Care Dowel Inspector Name Role Phone Vickey Hernandez MD Primary Care Provider + Encounter Details Date Type Department Care Team (Late Contact Info) Description 12/28/2019 Chart Note [facility] Radiation Therapy [address] [place] [address] [place] [address] [place] [address] Social History Tobacco Use Types [...] Encounters Date Type Department Care Team (Late Contact Info) Description 02/19/2025 4:30 PM CDT Telephone Check Up [facility] Oncology and Hematology - Tad [address] [facility] [address] [place] [address] Juliocesar Zelaya MD [address] [facility] [address] [place] [address] documented as of this encounter Visit Diagnoses Not on filedocumented in this encounter Care Teams Dowel Inspector Relationship Specialty Start Date End Date Vickey Hernandez MD [address] [place] [address] PCP - General Internal Medicine 07/09/17 documented as of this encounter
--- OUTSIDE RECORDS SUMMARY | 2025-02-09 11:29 | XMS_ITS ---
Author Organization [facility] Address [address] [place] [address] [address] [place] [address] Care Team Providers Care Pharmacy Tech Customer Service Name Role Phone Chantel Black [phone] REASON FOR VISIT meds Encounters Encounter Location Date Provider Diagnosis [facility] [address] [place] [address] [address] [place] [address] 01/15/2025 Chantel Black Plan Of Treatment Next Appt Details Provider Name:Chantel taylor, 02/15/2025 10:30:00 AM, [address] [facility], [address], [place], [address], Progress Notes * Manuel SMITHeDOB:1960 (64 yo M)Acc No.[id number]:01/15/2025 Progress Notes Patient: Kiran VILLAFANA Appointment Provider: Jabari Black NP :1960 A ge:64 Y S ex:Male Supervising Provider:Tran Roberts MD Date:01/15/2025 [id number] Subjective: * Chief Complaints: * 1 . Meds. * Medical History: Objective: * Vitals: Assessment: Plan: * Treatment: * Billing Information: * Visit Code: * Procedure Codes: * Electronic signature of Helga Roberts MD on 02/09/2025 at 11:28 AM CDT Sign off status: Pending * Appointment Provider: Jabari Black NP Date: 0 01/15/2025 Generated for Printing/Faxing/eTransmitting on: 0 02/09/2025 11:28 AM CDT
--- OUTSIDE RECORDS SUMMARY | 2025-02-09 11:29 | XMS_ITS | Referral Summary ---
Author Organization 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 Gender Identity Not on file Sexual [...] Plan of Treatment Not on file Insurance [facility] MEDICARE [facility] Address: [address] [address] [place] [address] [facility] MEDICARE SUPPLEMENT MEDICARE [facility] Advance Directives For more information, please contact: [phone] * Full Code (Latest Code Status on [...] 10:52 PM 04/18/2023 2:18 PM Care Teams Waybill Clerk Relationship Specialty Start Date End Date Vickey Hernandez MD [address] [place] [id number] PCP - General 03/20/14 Felipe Brand MD [phone] [place] [address] Referring Physician General Surgery 05/02/23
--- OUTSIDE RECORDS SUMMARY | 2025-02-09 11:29 | XMS_ITS | Clinical Summary ---
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 MEDICARE [facility] MEDICARE SUPPLEMENT MEDICARE [employer] Advance Directives For more information, please contact: [phone] * Full Code (Latest Code Status on [...] 10:52 PM 04/18/2023 2:18 PM Care Teams Skin Diver Relationship Specialty Start Date End Date Vickey Hernandez MD [address] [facility] [address] [place] [address] PCP - General 03/20/14 Felipe Brand MD [address] [facility] [id number] [place] [address] (work) Referring Physician General Surgery 05/02/23
--- NOTE | 2025-02-09 13:17 | ECG_ITS ---
Test Date: 2025-02-09 14:15:26 Measurements Intervals [place] Rate: 70 P: 66 NE: 175 QRS: 2 QRSD: 102 T: 48 QT: 368 QTc: 398 Interpretive Statements SINUS RHYTHM INCOMPLETE RIGHT BUNDLE BRANCH BLOCK [90+ ms QRS DURATION, TERMINAL R IN V1/V2, 40+ ms S IN I/aVL/V4/V5/V6] Compared to ECG 01/20/2025 12:09:11 Incomplete right bundle-branch block now present Sinus tachycardia no longer present Myocardial infarct finding no longer present Electronically Signed On 02-09-2025 21:57:29 CDT by Nella West M.D.
--- OUTSIDE RECORDS SUMMARY | 2025-02-09 13:25 | XMS_ITS | Referral Summary ---
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 Gender Identity Not on file Sexual Orientation [...] Plan of Treatment Not on file Insurance [facility] MEDICARE [facility] Address: [address] [address] [place] [address] [facility] MEDICARE SUPPLEMENT MEDICARE [facility] Advance Directives For more information, please contact: [phone] * Full Code (Latest Code Status on [...] 10:52 PM 04/18/2023 2:18 PM Care Teams Otr Van Cdl Truck Driver Relationship Specialty Start Date End Date Vickey Hernandez MD [address] [place] [address] [facility] [place] [id number] PCP - General 03/20/14 Felipe Brand MD [address] [phone] [place] [address] Referring Physician General Surgery 05/02/23
--- OUTSIDE RECORDS SUMMARY | 2025-02-09 13:25 | XMS_ITS | Clinical Summary ---
Author Organization [facility] Address [address] [place] [address] Care Team Providers Care Senior Marketing Data Analyst Name Role Phone Vickey Hernandez MD Primary Care Provider [phone] Allergies Active Allergy Reactions Criticality Noted Date [...] CDT - 01/28/2025 10:33 PM CDT Emergency [facility] [place] [address] Migue Gilbert MD Altered Mental Status Discharge [...] - 2023-2 5 season) 2024 PHQ-2 (Physician [place]oux) 10/04/2024 DTaP, Tdap and Td Vaccines ( [...] this topic Medical Devices Implanted Type Area Photography Professor Device Identifier Shelf Expiration Date Model [...] of2 resultswithin the time period is included. [facility] TROPONIN I HIGH SENSITIVITY 7 <79 ng/L 01/28/2025 9:33 PM CDT [facility] Comment: HIGH DOSES OF BIOTIN, TROPONIN-SPECIFIC AUTOANTIBODIES, AND ANTIBODY THERAPY CONTAINING HAMA MAY INTERFERE WITH THIS TEST RESULT. CORRELATION TO CLINICAL HISTORY AND PRESENTATION RECOMMENDED. 01/28/2025 8:53 PM CDT Migue Gilbert MD LABORATORY Final Result [facility] [address] [place] [id number], * (ABNORMAL) DRUG SCREEN RAPID (01/28/2025 8:28 PM CDT) Pathologist [facility] AMPHETAMINE (U) POSITIVE(A) NEGATIVE 01/29/20 9:12 PM CDT [facility] BARBITURATES SCREEN (U) NEGATIVE NEGATIVE 01/28/2025 9:12 PM CDT [facility] BENZODIAZEPINES SCREEN (U) NEGATIVE NEGATIVE 01/28/2025 9:12 PM CDT [facility] CANNABINOIDS SCREEN (U) POSITIVE(A) NEGATIVE 01/28/2025 9:12 PM CDT [facility] COCAINE METABOLITES (U) NEGATIVE NEGATIVE 01/28/2025 9:12 PM CDT [facility] METHADONE (U) NEGATIVE NEGATIVE 01/28/2025 9:12 PM CDT [facility] OPIATE SCREEN (U) POSITIVE(A) NEGATIVE 2024 9:12 PM CDT [facility] PHENCYCLIDINE PCP (U) NEGATIVE NEGATIVE 01/28/2025 9:12 PM CDT [facility] Comment: NOTE: RESULTS OF THIS DRUG SCREEN SHOULD BE USED FOR MEDICAL PURPOSES ONLY AND NOT FOR LEGAL OR EMPLOYMENT PURPOSES. POSITIVE RESULTS ARE NOT CONFIRMED. MEDICATIONS CONTAINING EPHEDRINE MAY CAUSE FALSE POSITIVE AMPHETAMINE CALL [phone], LAB, TO REQUEST CONFIRMATION TESTING. IF CREATININE IS <40 mg/dL. RECOLLECTION IS SUGGESTED. AMPHETAMINE- 500 NG/ML BARBITURATE- 200 NG/ML BENZODIAZEPINES- 200 NG/ML THC- 50 NG/ML COCAINE- 150 NG/ML METHADONE- 300 NG/ML OPIATE- 300 MG/ML PCP- 25 NG/ML CREATININE (U) 187.0 39 - 259 MG/DL 01/28/2025 9:12 PM CDT [facility] URINE SPECIMEN / Unknown 01/28/2025 8:28 PM CDT Migue Gilbert MD URINE ORDERABLES Final Result [facility] [address] [place] [address], * (ABNORMAL) URINALYSIS (01/28/2025 8:28 PM CDT) SPECIMEN TYPE URINE CLEAN CATCH 01/28/2025 8:26 PM CDT [facility] COLOR (U) YELLOW 01/28/2025 8:42 PM CDT [facility] TRANSPARENCY CLEAR 01/28/2025 8:42 PM CDT [facility] SPECIFIC GRAVITY (U) 1.029 1.001 - 1.030 01/28/2025 8:42 PM CDT [facility] U PH 5.5 5.0 - 9.0 01/28/2025 8:42 PM CDT [facility] LEUKOCYTES (U) 25(A) NEGATIVE 01/28/2025 8:42 PM CDT [facility] NITRITES NEGATIVE NEGATIVE 01/28/2025 8:42 PM CDT [facility] PROTEIN RANDOM (U) 20 <30 MG/DL 01/28/2025 8:42 PM CDT [facility] GLUCOSE (U) NORMAL NORMAL MG/DL 01/28/2025 8:42 PM CDT [facility] KETONES MG/DL (U) NEGATIVE NEGATIVE MG/DL 01/28/2025 8:42 PM CDT [facility] UROBILINOGEN NORMAL NORMAL MG/DL 01/28/2025 8:42 PM CDT [facility] BILIRUBIN (U) NEGATIVE NEGATIVE MG/DL 01/28/2025 8:42 PM CDT [facility] BLOOD (U) 3+(A) NEGATIVE 01/28/2025 8:42 PM CDT [facility] MUCUS RARE /LPF 01/28/2025 8:42 PM CDT [facility] HYALINE CASTS RARE /LPF 01/28/2025 8:42 PM CDT [facility] WBC/HPF 4 <6 /HPF 01/28/2025 8:42 PM CDT [facility] RBC/HPF >100(H) <6 /HPF 01/28/2025 8:42 PM CDT [facility] CA OXALATE CRYSTALS RARE /HPF 01/28/2025 8:42 PM CDT [facility] SQUAMOUS EPITHELIALS RARE /HPF 01/28/2025 8:42 PM CDT [facility] URINE SPECIMEN OBTAINED BY CLEAN CATCH PROCEDURE / Unknown 01/28/2025 8:28 PM CDT Migue Gilbert MD URINE ORDERABLES Final Result [facility] [address] [place] [address], * EKG Reading (01/28/2025 8:06 PM CDT) [...] rate 72. 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: : 1960 Requested By: MIGUE GILBERT Order Number: [id number] Reading MD: Chandana Knox Measurements Intervals [place] Rate: 72 P: 78 [place]: 185 QRS: 3 QRSD: 109 T: 59 QT: 376 QTc: 413 Interpretive Statements SINUS RHYTHM Compared to ECG 03/01/2016 16:33:55 No significant changes Procedure Note Chandana Knox MD - 01/29/[address] Test Date: 2025-01-28 Pat Name: KIRAN SMITH Department: 41 Room: [place] [address] Gender: Male 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: : 1960 Requested By: MIGUE GILBERT Order Number: [id number] Reading MD: Chandana Knox Measurements Intervals [place] Rate: 72 P: 78 [place]: 185 QRS: 3 QRSD: 109 T: 59 QT: 376 QTc: 413 Interpretive Statements SINUS RHYTHM Compared to ECG 03/01/2016 16:33:55 No significant changes Migue Gilbert MD ECG ORDERABLES Final Result [facility] * LACTIC ACID W REFLEX (SEPSIS) (01/28/2025 7:25 PM CDT) LACTIC ACID VENOUS 0.6 0.4 - 2.0 MMOL/L 01/28/2025 8:18 PM CDT [facility] 01/28/2025 7:25 PM CDT Migue Gilbert MD LABORATORY Final Result [facility] [address] [place] [address], [place] [phone] * XR CHEST PORTABLE (01/28/2025 6:44 PM CDT) Anatomical Region Laterality Modality Chest Radiographic Haydee ging 01/28/2025 6:58 PM CDT Impressions 01/28/2025 7:04 PM CDT IMPRESSION: Bilateral lung abnormalities. Referred By: Interpreted By: Randy Lubin MD, 01/28/2025 6:58 PM Narrative 01/28/2025 7:04 PM CDT [address] [address] EXAM: XR CHEST PORTABLE DATE: 01/28/2025 1835 [...] Procedure Note Randy Lubin MD - 01/28/[address] [address] EXAM: XR CHEST PORTABLE DATE: 01/28/2025 1835 [...] THROMBOPLASTIN TIME,PTT (01/28/2025 6:19 PM CDT) Pathologist [facility] PTT 31.4 25.1 - 36.5 SEC 01/28/2025 7:14 PM CDT [facility] 01/28/2025 6:19 PM CDT Migue Gilbert MD LABORATORY Final Result Performing Organization Address [facility]/ZIP Co de Phone Number [facility] [address] [place] [address], [place] [phone] * PROTIME/INR, VENOUS (01/28/2025 6:19 PM CDT) Pathologist [facility] PROTIME 12.3 10.2 - 12.9 SEC 01/28/2025 7:14 PM CDT [facility] INR 1.1 01/28/2025 7:14 PM CDT [facility] Comment: Recommended INR Therapeutic Goals: 2.0-3.0 Routine Therapy 2.5-3.5 Mechanical Prosthetic Valves (High Risk) 01/28/2025 6:19 PM CDT Migue Gilbert MD LABORATORY Final Result Performing Organization Address City/[facility]/ZIP Co de Phone Number [facility] [address] [place] [address], [place] [phone] * (ABNORMAL) COMPREHENSIVE METABOLIC PANEL (01/28/2025 6:19 PM CDT) Pathologist [facility] GLUCOSE 89 70 - 99 MG/DL 01/28/2025 7:32 PM CDT [facility] BUN 21(H) 7 - 18 MG/DL 01/28/2025 7:32 PM CDT [facility] CREATININE S/P/B 1.03 0.7 - 1.3 MG/DL 01/28/2025 7:32 PM CDT [facility] SODIUM S/P/B 135(L) 136 - 145 MMOL/L 01/28/2025 7:32 PM CDT [facility] POTASSIUM S/P/B 5.0 3.5 - 5.1 MMOL/L 01/28/2025 7:32 PM CDT [facility] Comment:SLIGHT HEMOLYSIS, RE SULT MAY BE AFFECTED. CHLORIDE S/P/B 103 97 - 115 MMOL/L 01/28/2025 7:32 PM CDT [facility] CO2 25.1 21 - 32 MMOL/L 01/28/2025 7:32 PM CDT [facility] CALCIUM S/P/B 8.8 8.5 - 10.1 MG/DL 01/28/2025 7:32 PM CDT [facility] BILIRUBIN TOTAL S/P/B 0.4 0.2 - 1.2 MG/DL 01/28/2025 7:32 PM CDT [facility] Comment: THIS ASSAY IS NOT RECOMMENDED FOR PATIENTS UNDERGOING TREATMENT WITH ELTROMBOPAG DUE TO THE POTENTIAL FOR FALSELY ELEVATED RESULTS. TOTAL PROTEIN S/P/B 7.8 6.4 - 8.2 G/DL 01/28/2025 7:32 PM CDT [facility] ALBUMIN S/P/B 2.8(L) 3.4 - 5.0 G/DL 01/28/2025 7:32 PM CDT [facility] AST 32 15 - 37 U/L 01/28/2025 7:32 PM CDT [facility] Comment:SLIGHT HEMOLYSIS, RE SULT MAY BE AFFECTED. ALT 23 16 - 60 U/L 01/28/2025 7:32 PM CDT [facility] ALKALINE PHOSPHATASE S/P/B 117 50 - 136 U/L 01/28/2025 7:32 PM CDT [facility] ANION GAP 6.9 2 - 10 MMOL/L 01/28/2025 7:32 PM CDT [facility] BUN CREATININE RATIO 20.4 6 - 26 01/28/2025 7:32 PM CDT [facility] A/G RATIO 0.6(L) 1.0 - 2.0 RATIO 01/28/2025 7:32 PM CDT [facility] GFR ESTIMATE 81(L) >90 ML/MIN/1.7 3 M2 01/28/2025 7:32 PM CDT [facility] Comment: NOTE: eGFR is not calculated for patients <18 years of age or gender unknown. This is an estimated GFR calculation using the new CKD EPI creatinine equation without race and so does not require a correction factor for race. This estimated GFR should not be used for calculating drug doses. 01/28/2025 6:19 PM CDT Migue Gilbert MD LABORATORY Final Result [facility] [address] [place] [address], [place] [phone] * (ABNORMAL) CBC W/DIFF AUTOMATED (01/28/2025 6:19 PM CDT) WBC 8.14 4.5 - 11.0 x10'3/uL 01/28/2025 6:55 PM CDT [facility] RBC 5.20 4.70 - 6.10 x10'6/uL 01/28/2025 6:55 PM CDT [facility] HGB 13.0(L) 14.0 - 18.0 G/DL 01/28/2025 6:55 PM CDT [facility] HCT 42.7(L) 43.0 - 54.0 % 01/28/2025 6:55 PM CDT [facility] MCV 82.1 80.0 - 94.0 FL 01/28/2025 6:55 PM CDT [facility] MCH 25.0(L) 27.0 - 31.0 PG 01/28/2025 6:55 PM CDT [facility] MCHC 30.4(L) 32.0 - 36.0 G/DL 01/28/2025 6:55 PM CDT [facility] RDW 16.7(H) 11.5 - 14.5 % 01/28/2025 6:55 PM CDT [facility] PLT 320 130 - 400 x10'3/uL 01/28/2025 6:55 PM CDT [facility] MPV 9.4 9.3 - 12.2 FL 01/28/2025 6:55 PM CDT [facility] DIFFERENTIAL TYPE AUTOMATED DIFFERENTIAL 01/28/2025 6:55 PM CDT [facility] NEUTROPHILS % 63.8 % 01/28/2025 6:55 PM CDT [facility] LYMPHOCYTES % 17.6 % 01/28/2025 6:55 PM CDT [facility] MONOCYTES % 11.9 % 01/28/2025 6:55 PM CDT [facility] EOSINOPHILS 5.2 % 01/28/2025 6:55 PM CDT [facility] BASOPHILS 1.1 % 01/28/2025 6:55 PM CDT [facility] IMMATURE GRANS % 0.4 % 01/29/20 6:55 PM CDT [facility] ABS. NEUTROPHILS 5.20 1.80 - 7.70 x10'3/uL 01/28/2025 6:55 PM CDT [facility] ABS. LYMPHOCYTES 1.43 1.00 - 4.80 x10'3/uL 01/28/2025 6:55 PM CDT [facility] ABS. MONOCYTES 0.97(H) 0.30 - 0.82 x10'3/uL 01/28/2025 6:55 PM CDT [facility] ABS. EOSINOPHILS 0.42 0.04 - 0.54 x10'3/uL 01/28/2025 6:55 PM CDT [facility] ABS. BASOPHILS 0.09(H) 0.01 - 0.08 x10'3/uL 01/28/2025 6:55 PM CDT [facility] ABS. IMMATURE GRANULOCYTES 0.03 0.00 - 0.49 x10'3/uL 01/28/2025 6:55 PM CDT [facility] 01/28/2025 6:19 PM CDT Migue Gilbert MD LABORATORY Final Result Performing Organization Address City/[facility]/ZIP Co de Phone Number [place] [address], * ETHANOL (01/28/2025 6:19 PM CDT) ALCOHOL S/P/B <0.003 <0.003 G/DL 01/28/2025 7:32 PM CDT [facility] 01/28/2025 6:19 PM CDT Migue Gilbert MD LABORATORY Final Result [facility] [address] [place] [address], [place] [phone] from Last [address] [place] [address] [address] MEDICARE Care Teams Senior Marketing Data Analyst Relationship Specialty Start Date End Date Vickey Hernandez MD PCP - General 01/06/17
--- OUTSIDE RECORDS SUMMARY | 2025-02-09 13:25 | XMS_ITS | Clinical Summary ---
Author Organization [facility] Address [address] [place] [address] Care Team Providers Care Balance Truing Inspector Name Role Phone Vickey Hernandez MD Primary Care Provider [phone] Source Comments [facility],non-owned Affiliates and Associated Physician Practices is amultiple site organization consisting of ambulatory clinics and hospital sitesin [place], [place], [place] and [place]. This disclosure is being madepursuant to the Care Everywhere program and may not contain all information available regarding this patient. Last updated 18.[facility] Allergies No known active allergies Medications * [...] and heating? Not hard at all 12/03/2022 [facility] [place] of Occupat ional Health - Occupational Stress [...] place to sleep or slept in a chcf (including now)? No 12/03/2022 Sex and Gender Information Value Date Recorded Sex Assigned at Not on file Legal Sex Male 9:21 AM CDT Gender Identity Not on file Sexual Orientation Not on file Last Filed Vital Signs Vital Sign Reading Time Taken Comments Blood Pressure 142/81 12/06/2022 9:17 AM INSPECTOR TOOL Pulse 96 12/06/2022 9:17 AM INSPECTOR TOOL Temperature 37 C (98.6 F) 12/06/2022 7:57 AM INSPECTOR TOOL Respiratory Rate 18 12/06/2022 10:29 AM INSPECTOR TOOL Oxygen Saturation 94% 12/06/2022 10:29 AM INSPECTOR TOOL Inhaled Oxygen Concentration - - Weight 77.1 kg (170 lb) 11/29/2022 2:06 PM INSPECTOR TOOL Height 172.7 cm (5' 8 ) 11/29/2022 2:06 PM INSPECTOR TOOL Body Mass Index 25.85 11/29/2022 2:06 PM INSPECTOR TOOL Plan of Treatment Health Maintenance Due Date [...] this topic Medical Devices Implanted Type Area Tire Assembler Device Identifier Shelf Expiration Date Model / Serial / Lot Screw 4mm 5mm 60mm .5 Thrd Rvrs Cut Flut Implanted:Qty: 1 on 11/30/2022 by Felipe Garcia MD at [facility] Left: [employer] [id number] / / Screw 4mm 5mm 80mm .5 Thrd Rvrs Cut Flut Implanted:Qty: 1 on 11/30/2022 by Felipe Garcia MD at [facility] Left: [employer] [id number] / / Nail Implanted:Qty: 1 on 11/30/2022 by Felipe Garcia MD at [facility] Left: [employer] 06/03/2029 [id number] / / Screw 5mm 3.5mm 40mm Ft Slf-Tap Fx Ang Implanted:Qty: 1 on 11/30/2022 by Felipe Garcia MD at [facility] Left: [employer] 09/12/2032 [id number] / / Screw 5mm 3.5mm 45mm Ft Fx Ang Hex Head Implanted:Qty: 1 on 11/30/2022 by Felipe Garcia MD at [facility] Left: [employer] 10/26/2032 [id number] / / Screw 5mm 3.5mm 47.5mm Ft Slf-Tap Fx Ang Implanted:Qty: 1 on 11/30/2022 by Felipe Garcia MD at [facility] Left: [employer] 07/20/2032 [id number] / / Screw 5mm 3.5mm 50mm Ft Slf-Tap Fx Ang Implanted:Qty: 1 on 11/30/2022 by Felipe Garcia MD at [facility] Left: [employer] 07/06/2032 [id number] / / Screw 5mm 3.5mm 40mm Ft Slf-Tap Fx Ang Implanted:Qty: 1 on 11/30/2022 by Felipe Garcia MD at [facility] Left: [employer] 09/12/2032 [id number] / / Screw 5mm 3.5mm 60mm Ft Fx Ang Hex Head Implanted:Qty: 1 on 11/30/2022 by Felipe Garcia MD at [facility] Left: [employer] 12/24/2031 [id number] / / Explanted Type Area Tire Assembler Device Identifier Shelf Expiration Date Model / Serial / Lot Nail Explanted:Qty: 1 on 11/30/2022 by Felipe Garcia MD at [facility] Left: [employer] 09/02/2025 [id number] / / Screw 5mm 3.5mm 70mm Ft Slf-Tap Fx Ang Explanted:Qty: 1 on 11/30/2022 by Felipe Garcia MD at [facility] Left: Tib[employer] 08/02/2032 [id number] / / Procedures Procedure Name Priority Date/Time Associated Diagnosis Comments BASIC METABOLIC PANEL (CALCIUM TOTAL) Routine 12/06/2022 1:09 AM INSPECTOR TOOL Closed fracture of left tibia and fibula, initial encounter from Last 3 Months or Most Recently Relevant to Health Maintenance Results * (ABNORMAL) BASIC METABOLIC PANEL (CALCIUM TOTAL) (12/06/2022 1:09 AM [facility]) BUN 12 7 - 26 mg/dL 12/06/2022 2:03 AM [facility] Creatinine 0.88 0.71 - 1.16 mg/dL 12/06/2022 2:03 AM [facility] Sodium 141 136 - 145 mmol/L 12/06/2022 2:03 AM [facility] Potassium 4.0 3.5 - 4.5 mmol/L 12/06/2022 2:03 AM [facility] Chloride 106 98 - 107 mmol/L 12/06/2022 2:03 AM [facility] CO2 27 22 - 29 mmol/L 12/06/2022 2:03 AM [facility] Glucose 88 70 - 115 mg/dL 12/06/2022 2:03 AM [facility] Calcium 7.6(L) 8.4 - 10.2 mg/dL 12/06/2022 2:03 AM [facility] Anion Gap 12 8 - 18 12/06/2022 2:03 AM [facility] BUN/Creatinine Ratio 14 7 - 23 12/06/2022 2:03 AM [facility] Osmolality Calculated 291 270 - 300 mOsm/kg 12/06/2022 2:03 AM [facility] eGFR by CKD-EPI >90 >=90 mL/min/1.7 3 m2 12/06/2022 2:03 AM [facility] Blood BLOOD SPECIMEN / Unknown Lab Venipuncture / Unknown 12/06/2022 1:09 AM INSPECTOR TOOL 12/06/2022 1:28 AM [facility] Caterina Lind MD LAB - CHEMISTRY ORDERABLES Fin al Result [facility] [address] [place] [address], [place] [phone] from Last 3 Months or Most Recently Relevant to Health Maintenance Insurance MEDICAID [place] MEDICARE [facility] Care Teams Balance Truing Inspector Relationship Specialty Start Date End Date Vickey Hernandez MD [address] [place] [address] PCP - General 08/04/19
--- OUTSIDE RECORDS SUMMARY | 2025-02-09 13:25 | XMS_ITS | Clinical Summary ---
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 Gender Identity Not on file Sexual Orientation [...] (2 - Td or Tdap) 11/29/2032 Insurance [facility] MEDICARE [facility] MEDICARE SUPPLEMENT MEDICARE [employer] Advance Directives For more information, please contact: [phone] * Full Code (Latest Code Status on [...] PM 04/18/2023 2:18 PM Care Teams Manager Mass Relationship Specialty Start Date End Date Vickey Hernandez MD [address] [facility] [address] [place] [address] PCP - General 03/20/14 Felipe Brand MD [address] [facility] [id number] [place] [address] (work) Referring Physician General Surgery 05/02/23
--- OUTSIDE RECORDS SUMMARY | 2025-02-09 13:25 | XMS_ITS | Clinical Summary ---
Author Organization [facility], formerly [facility] Address [address] [address] [place] [address] Phone Care Team Providers Care Tube Machine Operator Name Role Phone Vickey Hernandez [...] Pain. 0 Active naloxone (NARCAN) 4 mg/spray [place], Non-Aerosol EMERGENCY USE ONLY: Administer 1 spray [...] Department Care Team Description 01/30/[address] [facility] Oncology and Hematology - [place] [address] [place] [address] Juliocesar Zelaya MD 01/19/[address] [facility] Oncology and Hematology [facility] [address] [place] [address] Juliocesar Zelaya MD 01/18/2025 10:15 AM CDT Office Visit [facility] On[facility] Hemat[facility] [address] [place] [address] Juliocesar Zelaya MD Non-small cell cancer of right lung (CMS/HCC) (Primary Dx) 01/16/2025 External Device Data STL ABSTRACTION Provider, Abstract 01/12/[address] [facility] Oncology and Hematology [facility] [address] [place] [address] Juliocesar Zelaya MD Missed Call 01/02/2025 External [...] 02/19/2025 4:30 PM CDT Telephone Check Up [facility] Oncology and Hematology - [place] [address] [facility] [address] [place] [address] Juliocesar Zelaya MD [address] [place] [address] Health Maintenance Due Date Last [...] series) 2034 Medical Devices Implanted Type Area Final Application Reviewer Device Identifier Shelf Expiration Date Model / Serial / Lot Clip Ligating Horizon Lg Ti [id number] - Csc - [id number] Implanted:Qty: 1 on 01/23/2020 by Oscar Michel MD at [facility] Clip Right: Chest TELEFLEX- WECK CLOSURE SYS 10/09/2023 [id number] / / [id number] Clip Ligating Horizon Med Ti [id number] - Csc - [id number] Implanted:Qty: 4 on 01/23/2020 by Oscar Michel MD at [facility] Clip Right: Chest TELEFLEX- WECK CLOSURE SYS 06/19/2024 [id number] / / [id number] Sealant Fibrin Evicel 5ml 3905 - [id number] Implanted:Qty: 1 on 01/23/2020 by Oscar Michel MD at [facility] Other Right: Chest J[employer]J- ETH[employer] 06/03/2021 3905 / [id number] / [id number] Adh Bioglue 10ml [id number] - [id number] Implanted:Qty: 1 on 01/23/2020 by Oscar Michel MD at [facility] Tissue Right: Chest CRY[employer]IFE INC 07/09/2021 [id number] / / [id number] [place] Ptfe Thck 2.8mmx2.5x2.5c m [id number] - [id number] Implanted:Qty: 1 on 01/23/2020 by Oscar Michel MD at [facility] Tissue Right: Chest CR BARD- ALEXANDER VASC [employer] 10/31/2021 [id number] / / [id number] Hardware Back Explanted Type Area Final Application Reviewer Device Identifier Shelf Expiration Date Model / Serial / Lot Hemostatic Surgicel 4x8in 1952 - [id number] Explanted:Qty: 1 on 01/23/2020 at [facility] Hemostatic Right: Chest J&J- ETH[employer] 06/03/20221951 / / [id number] Procedures Procedure Name Priority Date/Time Associated Diagnosis [...] MED[place]ID [place] MED[place]ARE PART A AND B [facility] MEDICARE PART A AND B [facility] [place]ID [place] Advance Directives For more information, please contact: [phone] * Full Code (Latest Code Status on File) Date Activated Date Inactivated Comments 01/23/2020 8:52 AM 01/27/2020 2:16 PM * Full Code Date Activated Date Inactivated Comments 01/23/2020 5:22 AM 01/23/2020 8:52 AM * Full Code Date Activated Date Inactivated Comments 07/08/2017 6:32 PM 07/09/2017 5:38 PM * Full Code Date Activated Date Inactivated Comments 07/08/2017 3:18 PM 07/08/2017 3:50 PM Care Teams Tube Machine Operator Relationship Specialty Start Date End Date Vickey Hernandez MD [address] [place] [address] PCP - General Internal Medicine 07/09/17
--- OUTSIDE RECORDS SUMMARY | 2025-02-09 13:25 | XMS_ITS | Encounter Summary ---
Author Organization [facility] Address [address] [place] [address] Care Team Providers Care Personal Clothing Laundry Aide Name Role Phone Vickey Hernandez MD Primary Care Provider + Encounter Details Date Type Department Care Team (Late Contact Info) Description 12/28/2019 Chart Note [facility] Radiation Therapy [address] [place] [address] [place] [address] [place] [address] Social History Tobacco Use Types [...] 02/19/2025 4:30 PM CDT Telephone Check Up [facility] Oncology and Hematology - [place] [address] [facility] [address] [place] [address] Juliocesar Zelaya MD [address] [facility] [address] [place] [address] documented as of this encounter Visit Diagnoses Not on filedocumented in this encounter Care Teams Personal Clothing Laundry Aide Relationship Specialty Start Date End Date Vickey Hernandez MD [address] [place] [address] PCP - General Internal Medicine 07/09/17 documented as of this encounter
[2025-02-09 13:39] LABS: Basophils Percent Auto 0.2 % (0.2-1.2); Eosinophils Percent Auto 0.3 % (0-4.4); Hematocrit 40.8 % (42.0-52.0); Hemoglobin 12.3 g/dL (14.0-18.0); Immature Granulocyte Absolute 0.03 K/mm3 (0.00-0.031); Immature Granulocyte Percent A 0.3 % (0-0.5); Lymphocytes Absolute Auto 0.17 K/mm3 (0.9-3.2); Lymphocytes Percent Auto 1.6 % (18.3-44.2); Mean Corpuscular HGB Conc 30.1 g/dl (32-36); Mean Corpuscular Hemoglobin 25.3 pg (26-34); Mean Corpuscular Volume 83.8 fl (80-100); Mean Platelet Volume 9.5 fl (7.4-10.4); Monocytes Absolute Auto 0.3 K/mm3 (0.1-0.6); Monocytes Percent Auto 2.4 % (2.6-8.5); Neutrophils Percent Auto 95.2 % (45.5-73.1); Platelet Count Result 252 k/mm3 (150-375); Red Blood Count 4.87 M/mm3 (4.6-6.20); White Blood Count 10.5 K/mm3 (4.5-10.0)
[2025-02-09 13:49] LABS: Alanine Aminotransferase 15 U/L (6-50); Albumin Level 3.7 g/dL (3.5-5.1); Alkaline Phosphatase 110 U/L (38-126); Anion Gap 7 mmol/L (4-12); Aspartate Amino Transferase 30 U/L (17-59); Bilirubin,Total 0.7 mg/dL (0.2-1.3); Blood Urea Nitrogen 15 mg/dL (9-20); Calcium 8.6 mg/dL (8.4-10.2); Carbon Dioxide 34 mmol/L (22-30); Chloride 100 mmol/L (98-107); Estimated Glomerular Filt Rate > 60; Glucose 119 mg/dL (65-110); Potassium 3.4 mmol/L (3.4-5.0); Sodium 141 mmol/L (137-145)
[2025-02-09 13:56] LABS: INR 1.1; Prothrombin Time 14.9 Seconds (11.1-14.7)
[2025-02-09 13:57] LABS: Partial Thromboplastin Time 37.9 Seconds (22.3-36.8)
[2025-02-09 13:59] LABS: NT Pro B Type Natriuretic Pept 268 pg/mL (19.9-100)
--- NOTE | 2025-02-09 14:04 | ED_ITS ---
HPI - SOB/Dyspnea General Chief Complaint: Shortness of Breath/Dyspnea Stated Complaint: chronic sob and back pain Time Seen by Provider: 02/09/25 13:16 Source: patient Mode of arrival: EMS Limitations: no limitations History of Present Illness HPI Narrative: This is a 64 year old male that presents to the ER for shortness of breath. Also reports chronic low back pain for which he sees pain management. Reports a dry cough. Denies fevers, chest pain. Related Data Home Medications ?Medication ?Instructions ?Recorded ?Confirmed ?Last Taken ?Type lidocaine 5 % topical patch 1 patch topical DAILY 08/17/19 02/01/25 11/13/24 History mv-folic acid 200 mcg-D3 300 1 tablet PO DAILY 08/17/19 02/01/25 11/13/24 History unit-K2 20 [id number]#222 tablet (Stages Men's Multi-Vitamin) omeprazole 20 mg capsule,delayed 20 mg PO BID 08/17/19 02/01/25 11/13/24 History release pregabalin 150 mg capsule (Lyrica) 150 mg PO DAILY 05/15/20 02/01/25 11/13/24 History ferrous sulfate 325 mg (65 mg 325 mg PO DAILY 01/28/23 02/01/25 11/13/24 History iron) tablet oxycodone 10 mg/0.5 mL oral 10 mg PO Q4H 10/13/23 02/01/25 11/13/24 History syringe (FOR ORAL USE ONLY) aspirin 81 mg tablet,delayed 81 mg PO DAILY 04/26/24 02/01/25 11/13/24 History release (Adult Low Dose Aspirin) vitamin B complex 1 tablet PO DAILY 04/26/24 02/01/25 11/13/24 History trazodone 50 mg tablet 100 mg PO QHS 11/14/24 02/01/25 11/12/24 History lorazepam 0.5 mg tablet 0.5 mg PO TID PRN anxiety 01/20/25 02/01/25 Unknown History Allergies Allergy/AdvReac Type Severity Reaction Status Date / Time Penicillins Allergy Unknown Itching Verified 02/01/25 11:00 Review of Systems 2 Review of Systems: CONSTITUTIONAL: Denies fever CARDIOVASCULAR: Denies chest pain, or edema. RESPIRATORY: Reports cough and dyspnea. All systems reviewed & are unremarkable except as noted in HPI and below PMFSH Past Medical History Medical History (Updated 02/09/25 @ 16:40 by Myra Reyes PA-C) BMI 21.0-21.9, adult BMI 26.0-26.9,adult Facial rash Impaired functional mobility, balance, gait, and endurance Facial droop Bowel perforation Crushing injury leg Encounter for Medicare annual wellness exam BMI 24.0-24.9, adult Hypotension Tibial fracture Absence seizure Borderline abnormal TFTs Vitamin B2 deficiency Vitamin B1 deficiency Cognitive changes Tremor Acute nonintractable headache Chronic fatigue Change in vision BMI 22.0-22.9, adult Back pain Cervicalgia BMI 32.0-32.9,adult NAVARRETE (dyspnea on exertion) BMI 31.0-31.9,adult Encounter for routine adult health examination with abnormal findings BMI 30.0-30.9,adult Hearing loss Myopia BMI 29.0-29.9,adult Encounter for preventive health examination Breast tenderness in male Vitamin D deficiency Squamous cell carcinoma BMI 25.0-25.9,adult Encounter for routine adult health examination with abnormal findings Tobacco abuse Shortness of Breath Hemoptysis DJD (degenerative joint disease) Hematuria GERD (gastroesophageal reflux disease) BMI 27.0-27.9,adult Encounter for routine adult health examination without abnormal findings COPD (chronic obstructive pulmonary disease) Follow up Personal history of nicotine dependence Hematoma Chronic low back pain Ataxia CTS (carpal tunnel syndrome) Vitamin B12 deficiency 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 Iron deficiency anemia Hearing loss of both ears Surgical History Surgical History S/P pneumonectomy Previous back surgery x6 Hx of gastric bypass Family History Family History Father Family history of heart disease in male family member before age 55 Family history of cardiovascular disease Hypertension Mother Family history of heart disease in male family member before age 55 Family history of cardiovascular disease Family history of diabetes mellitus in first degree relative Family history of malignant neoplasm of brain Hypertension Social History Social History Smoking packs per day: 2 Smoking cigarettes per day: 40.0 Years smoked: 40 Smoking pack-years: 80.00 Smoking status: Former smoker Tobacco type: cigarettes Second hand tobacco smoke exposure: No Smoking end date: 02/02/20 Additional smoking assessment comments: pt. doesn't know when he stopped smoking cigarettes Alcohol intake: never Substance use: never Substance use type: marijuana Other substance usage details: Gummies Last use: 11/13/24 Do You Feel Safe in your Home?: Yes Lack of Transportation: No Lack of Food: Never True Current Housing: I Have Housing Concerned About Future Housing: No Difficulty Paying Gas/Electric Bills: No Difficulty Paying for Meds: No Currently Unemployed: No Education: High School Diploma/GED Difficulty w/ Childcare or Family Care: No Living arrangements: with family Occupation/Education: unemployed Gender identity (if verbalized by the patient): Male Spiritual care concerns: No Exam 2 Narrative: GENERAL: Chronically ill-appearing, thin, and in no acute distress. HEAD: Normocephalic, atraumatic. EYES: EOMI. ENT: Nares clear, no rhinorrhea or epistaxis. Mucous membranes moist. Oropharynx without tonsillar hypertrophy exudate or other lesions. NECK: Supple. No adenopathy or masses. CHEST: No respiratory distress. Rales at the lung bases. No wheezes rhonchi HEART: Regular rate and rhythm. No murmur heard. Normal peripheral pulses. EXTREMITIES: Normal range of motion. No edema. SKIN: Warm, dry, no rash. NEURO: No focal deficits. Alert and oriented x3. PSYCH: Normal mood and affect Course Course Emergency Course: patient updated on his workup and agrees with plan of care Vital Signs Vital signs: Vital Signs Temperature 97.9 F 02/09/25 11:26 Pulse Rate 95 02/09/25 11:26 Respiratory Rate 16 02/09/25 11:26 Blood Pressure 116/80 02/09/25 11:26 Pulse Oximetry 96 02/09/25 11:26 Oxygen Delivery Nasal Cannula 02/09/25 11:26 Oxygen Flow Rate 2 02/09/25 11:26 Temperature 97.9 F 02/09/25 11:26 Pulse Rate 79 02/09/25 13:25 Respiratory Rate 22 H 02/09/25 13:25 Blood Pressure 133/77 02/09/25 13:25 Pulse Oximetry 97 02/09/25 13:25 Oxygen Delivery Nasal Cannula 02/09/25 13:15 Oxygen Flow Rate 2 02/09/25 13:15 MDM - SOB/Dyspnea MDM Narrative Medical decision making narrative: Patient presents to the emergency department for 2 complaints. Reporting shortness of breath, cough. Also endorsing chronic low back pain. No recent injuries. Patient is afebrile and nontoxic appearing. His oxygen saturation has been normal on his 2 L that he wears chronically. CBC with mild leukocytosis to 10.5. Metabolic panel appears stable. Influenza, RSV and COVID screens are negative. Chest x-ray shows developing pneumonia. Patient given 1st dose of antibiotics IV. Will be continued on oral antibiotics. He is to follow up with primary provider. He was given warnings to return to the ER Differential Diagnosis Differential diagnosis: Likely acute exacerbation of chronic obstructive airways disease, congestive heart failure and community acquired pneumonia Lab Data Attestation: I reviewed the patient's lab results. 02/09/25 13:32 02/09/25 13:32 Labs: Lab Results 02/09/25 Range/Units 13:32 WBC 10.5 H (4.5-10.0) K/mm3 RBC 4.87 (4.6-6.20) M/mm3 Hgb 12.3 L (14.0-18.0) g/dL Hct 40.8 L (42.0-52.0) % MCV 83.8 (80-100) fl MCH 25.3 L (26-34) pg MCHC 30.1 L (32-36) g/dl RDW 17.0 H (11.5-14.5) % Plt Count 252 (150-375) k/mm3 MPV 9.5 (7.4-10.4) fl Immature Gran % (Auto) 0.3 (0-0.5) % Neut % (Auto) 95.2 H (45.5-73.1) % Lymph % (Auto) 1.6 L (18.3-44.2) % [place] % (Auto) 2.4 L (2.6-8.5) % Eos % (Auto) 0.3 (0-4.4) % Baso % (Auto) 0.2 (0.2-1.2) % Lymph # (Auto) 0.17 L (0.9-3.2) K/mm3 [place] # (Auto) 0.3 (0.1-0.6) K/mm3 Eos # (Auto) 0.0 (0-0.3) K/mm3 Baso # (Auto) 0.0 (0.0-0.1) K/mm3 Abs Immat Gran (auto) 0.03 (0.00-0.031) K/mm3 Absolute Neuts (auto) 10.0 H (1.3-6.7) K/mm3 Absolute Nucleated RBC 0.000 (0.0-0.012) K/mm3 Nucleated RBC % 0.0 (0.0-0.2) % PT 14.9 H (11.1-14.7) Seconds INR 1.1 APTT 37.9 H (22.3-36.8) Seconds Sodium 141 (137-145) mmol/L Potassium 3.4 (3.4-5.0) mmol/L Chloride 100 (98-107) mmol/L Carbon Dioxide 34 H (22-30) mmol/L Anion Gap 7 (4-12) mmol/L BUN 15 (9-20) mg/dL Creatinine 0.76 (0.7-1.3) mg/dL Estim Creat Clear Calc Not Reportable Estimated GFR > 60 (59 - ) Glucose 119 H (65-110) mg/dL Calcium 8.6 (8.4-10.2) mg/dL Total Bilirubin 0.7 (0.2-1.3) mg/dL AST 30 (17-59) U/L ALT 15 (6-50) U/L Alkaline Phosphatase 110 (38-126) U/L NT-Pro-B Natriuret Pep 268 H (19.9-100) pg/mL Total Protein 8.0 (6.3-8.2) g/dL Albumin 3.7 (3.5-5.1) g/dL Influenza A (RT-PCR) Negative (Negative) Influenza B (RT-PCR) Negative (Negative) RSV (RT-PCR) Negative (Negative) SARS-CoV-2 RNA (RT-PCR) Negative (Negative) Imaging Data Radiologist's impression: ITS Impressions Chest X-Ray 02/09/25 14:14 Impression: 1: Developing bibasilar airspace disease, consistent with pneumonia. ECG Data EKG #1: ECG completion date: 02/09/25 EKG Interpretation: normal rate, sinus rhythm, no ST changes and normal QT Critical Care Time Critical Care Time Critical Care Time: No Discharge Plan Discharge Clinical Impression: Pneumonia Qualifiers: Pneumonia type: due to unspecified organism Laterality: bilateral Lung location: lower lobe of lung Qualified Code(s): J18.9 - Pneumonia, unspecified organism Patient Disposition: Home Condition: Stable Instructions: Antibiotic Form, Community Acquired Pneumonia (ED) Additional Instructions: Return to the emergency department if you experience fever, chest pain, shortness of breath, or any other symptoms that are concerning to you. Take oral antibiotics as prescribed Follow up with your primary care doctor and/or manager long term care Patient Language: Urdu Prescriptions: New azithromycin 250 mg tablet 250 mg PO DAILY 4 Days Qty: 4 0RF Rx Instructions: start on day 2 of therapy cefdinir 300 mg capsule 300 mg PO Q12H 4 Days Qty: 8 0RF No Action lidocaine 5 % adhesive patch,medicated 1 patch TOPICAL DAILY omeprazole 20 mg capsule,delayed release(DR/EC) 20 mg PO BID Stages Men's Multi-Vitamin 200 mcg-300 unit-20 mcg tablet 1 tablet PO DAILY pregabalin [Lyrica] 150 mg capsule 150 mg PO DAILY ferrous sulfate 325 mg (65 mg iron) tablet 325 mg PO DAILY oxycodone 10 mg/0.5 mL syringe 10 mg PO Q4H tizanidine 4 mg capsule 4 mg PO TID PRN (Reason: muscle spasticity) Qty: 30 0RF albuterol sulfate 90 mcg/actuation HFA aerosol inhaler See Rx Instructions .ROUTE .COMPLEX Qty: 8.5 1RF Dose Instruction: TAKE 1-2 PUFFS EVERY 4 HOURS NEEDED FOR SHORTNESS OF BREATH/WHEEZING. Rx Instructions: TAKE 1-2 PUFFS EVERY 4 HOURS NEEDED FOR SHORTNESS OF BREATH/WHEEZING. vitamin B complex Tablet 1 tablet PO DAILY aspirin [Adult Low Dose Aspirin] 81 mg tablet,delayed release (DR/EC) 81 mg PO DAILY midodrine 2.5 mg tablet 2.5 mg PO BID Qty: 180 1RF Rx Instructions: do not give last dose of day after 6PM or within 4 hrs of bedtime trazodone 50 mg tablet 100 mg PO QHS albuterol sulfate 1.25 mg/3 mL solution for nebulization 1.25 mg inhalation Q4H Qty: 75 0RF lorazepam 0.5 mg tablet 0.5 mg PO TID PRN (Reason: anxiety) paroxetine HCl 40 mg tablet See Rx Instructions .ROUTE .COMPLEX Qty: 90 1RF Dose Instruction: TAKE 1 TABLET BY MOUTH EVERY DAY Rx Instructions: TAKE 1 TABLET BY MOUTH EVERY DAY cyanocobalamin (vitamin B-12) 1,000 mcg/mL solution See Rx Instructions .ROUTE .COMPLEX Qty: 3 1RF Dose Instruction: INJECT 1ML INTO MUSCLE ONCE MONTHLY Rx Instructions: INJECT 1ML INTO MUSCLE ONCE MONTHLY BD Luer-Collin Syringe 3 mL 25 gauge x 1 syringe See Rx Instructions .ROUTE .COMPLEX Qty: 3 3RF Dose Instruction: FOR FOR ONCE MONTHLY IM INJECTIONS OF VITAMIIN B12 DIRECTED Rx Instructions: FOR ONCE MONTHLY IM INJECTIONS OF VITAMIIN B12 DIRECTED Trelegy Ellipta 100-62.5-25 mcg blister with device 1 inh inhalation DAILY Qty: 60 3RF bupropion HCl 300 mg tablet extended release 24 hr See Rx Instructions .ROUTE .COMPLEX Qty: 90 0RF Dose Instruction: TAKE 1 TABLET BY MOUTH EVERY MORNING Rx Instructions: TAKE 1 TABLET BY MOUTH EVERY MORNING levetiracetam 500 mg tablet extended release 24 hr 1,500 mg PO QHS Qty: 300 2RF Follow-up/Referrals: Vickey Hernandez MD [Primary Care Provider] -
[2025-02-09 14:16] LABS: Influenza A QL RT-PCR Negative (Negative); Influenza B QL RT-PCR Negative (Negative); RSV RNA, RT-PCR Negative (Negative); SARS-CoV-2 RNA PCR Negative (Negative)
[2025-02-09] MEDS: oxyCODONE HCL (*CRX) 5 MG TAB IR PO ×2 (15:13)
[2025-02-09] MEDS: LIDOCAINE 5% PATCH 1 PATCH TRANSDERM (15:14)
[2025-02-09] MEDS: AZITHROMYCIN 500 MG/NS 250 ML 500 MG/250 ML BAG 250 MG IVPB (17:11)
== END 2025-02-09 18:20 | disposition home or self-care (01) ==
PROVIDERS: Emergency Provider Physician Assistant; PCP Internal Medicine
DX: J18.9 Pneumonia, unspecified organism (principal); M54.50 Low back pain, unspecified; G89.29 Other chronic pain; Z79.82 Long term (current) use of aspirin; E51.9 Thiamine deficiency, unspecified; E53.0 Riboflavin deficiency; E53.8 Deficiency of other specified B group vitamins; E55.9 Vitamin D deficiency, unspecified; K21.9 Gastro-esophageal reflux disease without esophagitis; Z87.891 Personal history of nicotine dependence
CPT/HCPCS: 36415; 71046; 80053; 83880; 85025; 85610; 85730; 87637; 93005; 96365; 96367; 99284; A9270; J0456; J0696

== ENCOUNTER 2025-02-15 13:20 | Inpatient (IN) | payer MEDICARE, SELFPAY ==
[2025-02-15] VITALS (26 sets, daily range): BP systolic 107–149; BP diastolic 61–78; PULSE 79–102; RESP 16–34; TEMP 36.3–36.8; O2SAT 94–100; BMI 21.2
--- NOTE | ~2025-02-15 | XR_ITS ---
XR chest 1V portable 02/16/2025 15:40 Indication: Pneumonia Procedure: AP portable chest Comparison: Comparison to multiple prior studies sequentially, with oldest reviewed study dated 01/25. Findings: Cardiomegaly. Elevated left diaphragm. There is consolidation in the left lower thorax as w ell as developing consolidation in the right lower lung, consistent with pneumonia. Elevated left sonny phragm. No significant effusion or pneumothorax. No acute osseous abnormality. Residual spinal stimul ator leads present. Surgical clips overlie the right apex. Impression: 1: Progression of bibasilar airspace disease, consistent with pneumonia. Reviewed, dictated and finalized at location A. Impression: 1: Progression of bibasilar airspace disease, consistent with pneumonia.
--- NOTE | ~2025-02-15 | XR_ITS ---
Portable chest x-ray Comparison: 02/16/2025 Clinical History: Pneumonia Findings: There is extensive hazy pulmonary disease, overall worsened from prior exam. Possible unde rlying chronic interstitial change particularly in the left lung. Cardiomediastinal silhouette is st able. Bones and soft tissues are unremarkable. Impression: Probable mild diffuse pulmonary edema versus possibly pneumonia, worsened from prior exam. Correlate clinically. Possible underlying chronic interstitial disease, especially the left lung. Reviewed, dictated and finalized at location . Impression: Probable mild diffuse pulmonary edema versus possibly pneumonia, worsened from prior exam. Correlate clinically. Possible underlying chronic interstitial disease, especially the left lung.
--- NOTE | ~2025-02-15 | CT_ITS ---
CTA chest PE protocol Ordering provider: Carolina Goel History: 64 years Male with . worsening pneumonia? more O2 requirement . Comparison: January 18, 2025 Technique: CT angiogram chest was performed following timed intravenous injection of contrast. Thin s lice axial images and reformatted coronal images were obtained. Three dimensional reformatted images of the chest were also obtained using a [employer] workstation. . Automated exposure control and iterati ve reconstruction technique were employed. The dose-length product was 391.32 mGy-cm. 100 mL Omnipaqu e 350 was given IV. Findings: PULMONARY ARTERIES: No pulmonary embolus. VISUALIZED THORACIC INLET: Normal. MEDIASTINUM: Aorta/coronary arteries: Mild atheromatous disease. Heart/other: The heart is not enlarged. Lymph nodes: No mediastinal or hilar adenopathy. Calcified lymph nodes are noted. LUNGS: Pneumonia in the left lower lobe. Tree-in-bud appearance is seen in the left upper lobe and lingula s uggestive of post infection changes. No pulmonary nodules or masses. No pneumothorax. Trace of left p leural effusion is seen. VISUALIZED UPPER ABDOMEN: 3.7 x 3.8 cm cyst is seen in the right kidney upper pole. Otherwise, the vi sualized upper abdomen is normal. MUSCULOSKELETAL: Soft tissues: The superficial soft tissues are normal. Bones: Age appropriate degenerative changes of the spine. Healing fracture in the right fourth and fi fth ribs is noted. Compression fracture involving the superior endplate of T12 and L1 is noted. MRI e valuation advised. Spinal stimulator is seen in the midthoracic area. IMPRESSION: 1. Left lower lobe pneumonia which has increased compared to previous study. 2. No pulmonary embolism. 3. Tree-in-bud appearance in the left upper lobe and lingula suggestive of post infection changes. 4. Trace of left pleural effusion. 5. Compression fracture in the superior endplate of T12 and L1 most likely acute. MRI evaluation adv ised. 6. Healing rib fractures in the right hemithorax. Reviewed, dictated and finalized at location A. IMPRESSION: 1. Left lower lobe pneumonia which has increased compared to previous study. 2. No pulmonary embolism. 3. Tree-in-bud appearance in the left upper lobe and lingula suggestive of pos t infection changes. 4. Trace of left pleural effusion. 5. Compression fracture in the superior endplate of T12 and L1 most likely acu te. MRI evaluation advised. 6. Healing rib fractures in the right hemithorax.
--- NOTE | ~2025-02-15 | XR_ITS ---
XR chest 1V portable 02/15/2025 14:14 Indication: Dyspnea Procedure: AP portable chest Comparison: Comparison to multiple prior studies sequentially, with oldest reviewed study dated 01/18. Findings: Cardiomegaly. Bilateral airspace disease, left greater than right, consistent with pneumoni a. Possible small left effusion. There is left apical pleural capping. There is atherosclerosis of th e aorta. Stable position to spinal stimulator leads. Impression: 1: Persistent bilateral airspace disease, left greater than right, consistent with pneumonia. Reviewed, dictated and finalized at location A. Impression: 1: Persistent bilateral airspace disease, left greater than right, consistent w ith pneumonia.
--- NOTE | 2025-02-15 13:26 | ECG_ITS ---
Test Date: 2025-02-15 13:28:43 Measurements Intervals [place] Rate: 100 P: 82 SD: 163 QRS: -9 QRSD: 95 T: 57 QT: 337 QTc: 436 Interpretive Statements SINUS TACHYCARDIA INFERIOR MYOCARDIAL INFARCTION [40+ ms Q WAVE AND/OR ST/T ABNORMALITY IN II/aVF], PROBABLY OLD EARLY TRANSITION ABNORMAL ECG Compared to ECG 02/09/2025 14:15:26 Myocardial infarct finding now present Sinus rhythm no longer present Incomplete right bundle-branch block no longer present Electronically Signed On 02-16-2025 09:42:48 CDT by Deacon Schmidt M.D.
--- OUTSIDE RECORDS SUMMARY | 2025-02-15 13:43 | XMS_ITS | Clinical Summary ---
Author Organization [facility] Address [address] [place] [address] Care Team Providers Care Glass Beveler Name Role Phone Vickey Hernandez MD Primary Care Provider Source Comments [facility],non-owned Affiliates and Associated Physician Practices is amultiple site organization consisting of ambulatory clinics and hospital sitesin [place], [place], [place] and [place]. This disclosure is being madepursuant to the Care Everywhere program and may not contain all information available regarding this patient. Last updated 18.[facility] Allergies No known active allergies Medications * [...] and heating? Not hard at all 12/03/2022 [facility] - Occupational Stress [...] place to sleep or slept in a care home (including now)? No 12/03/2022 Sex and Gender Information Value Date Recorded Sex Assigned at Not on file Legal Sex Male 9:21 AM CDT Gender Identity Not on file Sexual Orientation Not on file Last Filed Vital Signs Vital Sign Reading Time Taken Comments Blood Pressure 142/81 12/06/2022 9:17 AM EXECUTIVE LEGAL SECRETARY Pulse 96 12/06/2022 9:17 AM EXECUTIVE LEGAL SECRETARY Temperature 37 C (98.6 F) 12/06/2022 7:57 AM EXECUTIVE LEGAL SECRETARY Respiratory Rate 18 12/06/2022 10:29 AM EXECUTIVE LEGAL SECRETARY Oxygen Saturation 94% 12/06/2022 10:29 AM EXECUTIVE LEGAL SECRETARY Inhaled Oxygen Concentration - - Weight 77.1 kg (170 lb) 11/29/2022 2:06 PM EXECUTIVE LEGAL SECRETARY Height 172.7 cm (5' 8) 11/29/2022 2:06 PM EXECUTIVE LEGAL SECRETARY Body Mass Index 25.85 11/29/2022 2:06 PM EXECUTIVE LEGAL SECRETARY Plan of Treatment Health Maintenance Due Date [...] this topic Medical Devices Implanted Type Area Test Deck Supervisor Device Identifier Shelf Expiration Date Model / Serial / Lot Screw 4mm 5mm 60mm .5 Thrd Rvrs Cut Flut Implanted:Qty: 1 on 11/30/2022 by Felipe Garcia MD at [facility] Left: [employer] [id number] / / Screw 4mm 5mm 80mm .5 Thrd Rvrs Cut Flut Implanted:Qty: 1 on 11/30/2022 by Felipe Garcia MD at [facility] Left: Tibia [employer] [id number] / / Nail Implanted:Qty: 1 on 11/30/2022 by Felipe Garcia MD at [facility] Left: Tibia [employer] 06/03/2029 [id number] / / Screw 5mm 3.5mm 40mm Ft Slf-Tap Fx Ang Implanted:Qty: 1 on 11/30/2022 by Felipe Garcia MD at [facility] Left: Tibia [employer] 09/12/2032 [id number] / / Screw 5mm 3.5mm 45mm Ft Fx Ang Hex Head Implanted:Qty: 1 on 11/30/2022 by Felipe Garcia MD at [facility] Left: [employer] 10/26/2032 [id number] / / Screw 5mm 3.5mm 47.5mm Ft Slf-Tap Fx Ang Implanted:Qty: 1 on 11/30/2022 by Felipe Garcia MD at [facility] Left: [employer] 07/20/2032 [id number] / / Screw 5mm 3.5mm 50mm Ft Slf-Tap Fx Ang Implanted:Qty: 1 on 11/30/2022 by Felipe Garcia MD at [facility] Left: [employer] 07/06/2032 [id number] / / Screw 5mm 3.5mm 40mm Ft Slf-Tap Fx Ang Implanted:Qty: 1 on 11/30/2022 by Felipe Garcia MD at [facility] Left: [employer] 09/12/2032 [id number] / / Screw 5mm 3.5mm 60mm Ft Fx Ang Hex Head Implanted:Qty: 1 on 11/30/2022 by Felipe Garcia MD at [facility] Left: [employer] 12/24/2031 [id number] / / Explanted Type Area Test Deck Supervisor Device Identifier Shelf Expiration Date Model / Serial / Lot Nail Explanted:Qty: 1 on 11/30/2022 by Felipe Garcia MD at [facility] Left: [employer] 09/02/2025 [id number] / / Screw 5mm 3.5mm 70mm Ft Slf-Tap Fx Ang Explanted:Qty: 1 on 11/30/2022 by Felipe Garcia MD at [facility] Left: Tibia [employer] 08/02/2032 [id number] / / Procedures Procedure Name Priority Date/Time Associated Diagnosis Comments BASIC METABOLIC PANEL (CALCIUM TOTAL) Routine 12/06/2022 1:09 AM EXECUTIVE LEGAL SECRETARY Closed fracture of left tibia and fibula, initial encounter from Last 3 Months or Most Recently Relevant to Health Maintenance Results * (ABNORMAL) BASIC METABOLIC PANEL (CALCIUM TOTAL) (12/06/2022 1:09 AM [facility]) BUN 12 7 - 26 mg/dL 12/06/2022 [...] Lab Venipuncture / Unknown 12/06/2022 1:09 AM EXECUTIVE LEGAL SECRETARY 12/06/2022 1:28 AM [facility] Caterina Lind MD LAB - CHEMISTRY ORDERABLES Fin al Result [facility] [address] [place] [address], [place] [phone] from Last 3 Months or Most Recently Relevant to Health Maintenance Insurance MEDICAID - [place] MEDICARE [facility] Care Teams Glass Beveler Relationship Specialty Start Date End Date Vickey Hernandez MD [address] [place] [address] PCP - General 08/04/19
--- OUTSIDE RECORDS SUMMARY | 2025-02-15 13:43 | XMS_ITS | Clinical Summary ---
Author Organization [facility] Address [address] [address] [place] [address] Phone Care Team Providers Care Oven Heater Name Role Phone Vickey Hernandez MD Primary [...] Pain. 0 Active naloxone (NARCAN) 4 mg/spray [place], Non-Aerosol EMERGENCY USE ONLY: Administer 1 spray [...] Encounters Date Type Department Care Team Description 02/15/2025 Telephone [facility] Oncology and Hematology - [place] [address] [place] [address] Juliocesar Zelaya MD Pet Scan Questions 01/30/2025 Orders Only [facility] Oncology and Hematology - [place] [address] [place] [address] Juliocesar Zelaya MD 01/19/2025 Orders Only [facility] Oncology and Hematology - [place] [address] [place] [address] Juliocesar Zelaya MD 01/18/2025 10:15 AM CDT Office Visit [facility] Oncology and Hematology - [place] [address] [place] [address] Juliocesar Zelaya MD Non-small cell cancer of right lung (CMS/HCC) (Primary Dx) 01/16/2025 External Device Data STL ABSTRACTION Provider, Abstract 01/12/2025 Telephone [facility] Oncology and Hematology [facility] [address] [place] [address] Juliocesar Zelaya MD Missed Call 01/02/2025 External [...] 10:24 AM CDT Height 172.7 cm (5' 8) 02/09/2022 11:16 AM CDT Body Mass Index 22.2 02/09/2022 11:16 AM CDT Plan of Treatment Upcoming Encounters Date Type Department Care Team (Late st Contact Info) Description 02/19/2025 4:30 PM CDT Telephone Check Up [facility] Oncology and Hematology - [place] [address] [place] [address] [facility] [address] [place] [address] Juliocesar Zelaya MD [address] [facility] [address] [place] [address] Health Maintenance Due Date Last [...] series) 2034 Medical Devices Implanted Type Area Enterostomal Therapy Nurse Device Identifier Shelf Expiration Date Model / Serial / Lot Clip Ligating Horizon Lg Ti 207119 - Csc - [id number] Implanted:Qty: 1 on 01/23/2020 by Oscar Michel MD at [facility] Clip Right: Chest TELEFLEX- WECK CLOSURE SYS 10/09/2023 [id number] / / [id number] Clip Ligating Horizon Med Ti 854255 - Csc - [id number] Implanted:Qty: 4 on 01/23/2020 by Oscar Michel MD at [facility] Clip Right: Chest TELEFLEX- WECK CLOSURE SYS 06/19/2024 [id number] / / [id number] Sealant Fibrin Evicel 5ml 3905 - [id number] Implanted:Qty: 1 on 01/23/2020 by Oscar Michel MD at [facility] Other Right: Chest J[employer] 06/03/2021 3905 / [id number] / [id number] Adh Bioglue 10ml Nc1416-6-Ji - [id number] Implanted:Qty: 1 on 01/23/2020 by Oscar Michel MD at [facility] Tissue Right: Chest [employer] 07/09/2021 [id number] / / [id number] [place] Ptfe Thck 2.8mmx2.5x2.5c m [id number] - [id number] Implanted:Qty: 1 on 01/23/2020 by Oscar Michel MD at [facility] Tissue Right: Chest CR BARD[employer]LEX[employer] 10/31/2021 [id number] / / [id number] Hardware Back Explanted Type Area Enterostomal Therapy Nurse Device Identifier Shelf Expiration Date Model / Serial / Lot Hemostatic Surgicel 4x8in 1952 - [id number] Explanted:Qty: 1 on 01/23/2020 at [facility] Hemostatic Right: Chest [employer] 06/03/20221951 / / [id number] Procedures Procedure Name Priority Date/Time Associated Diagnosis [...] MED[place]ID [place]ARE PART A AND B [facility] MEDICARE PART A AND B [facility] [place]ID [place] Advance Directives For more information, please contact: [phone] * Full Code (Latest Code Status on File) Date Activated Date Inactivated Comments 01/23/2020 8:52 AM 01/27/2020 2:16 PM * Full Code Date Activated Date Inactivated Comments 01/23/2020 5:22 AM 01/23/2020 8:52 AM * Full Code Date Activated Date Inactivated Comments 07/08/2017 6:32 PM 07/09/2017 5:38 PM * Full Code Date Activated Date Inactivated Comments 07/08/2017 3:18 PM 07/08/2017 3:50 PM Care Teams Oven Heater Relationship Specialty Start Date End Date Vickey Hernandez MD [address] [place] [address] PCP - General Internal Medicine 07/09/17
--- OUTSIDE RECORDS SUMMARY | 2025-02-15 13:43 | XMS_ITS | Encounter Summary ---
Author Organization [facility] [employer] [facility] Address [address] [place] [address] Care Team Providers Care Outgoing Inspector Name Role Phone Vickey Hernandez MD Primary Care Provider + Reason for Visit * Reason Onset Date Comments Pet Scan Questions 02/15/2025 Encounter Details Date Type Department Care Team (Late st Contact Info) Description 02/15/2025 Telephone [facility] Oncology and Hematology - [place] [address] [facility] [address] [place] [address] Juliocesar Zelaya MD [address] [facility] [address] [place] [address] Pet Scan Questions Social History Tobacco Use Types Packs/Day Years [...] on file documented as of this encounter Miscellaneous Notes * Telephone Encounter - Brissa Silva Dillon - 02/15/2025 11:30 AM CDT Patient's daughter called today along with patient on speaker. They had to cancel his PET Scan for today because she was not able to get him up and moving today. He is very short of breath when up and moving to just go to the bathroom. Since we have seen him in January he has been to the ER a couple of times. I let them know that we would need to get the PET Scan rescheduled. She did check his pulse ox while we are on the phone and it was at 95% on 2 liters of O2. He had been laying in bed about 20 minutes at this point. I let her know that if he was getting worse of having trouble breathing wecould also recommend going to the ER for evaluation. They verbalized understanding with no further questions at this time. documented in this encounter Plan of Treatment Upcoming Encounters Date Type Department Care Team (Late st Contact Info) Description 02/19/2025 4:30 PM CDT Telephone Check Up [facility] Oncology and Hematology - [place] [address] [facility] [address] [place] [address] Juliocesar Zelaya MD [address] [facility] [address] [place] [address] documented as of this encounter Visit Diagnoses Not on filedocumented in this encounter Care Teams Outgoing Inspector Relationship Specialty Start Date End Date Vickey Hernandez MD [address] [place] [address] PCP - General Internal Medicine 07/09/17 documented as of this encounter
--- OUTSIDE RECORDS SUMMARY | 2025-02-15 13:43 | XMS_ITS | Encounter Summary ---
Author Organization [facility] Address [address] [place] [address] Care Team Providers Care High Heel Builder Name Role Phone Vickey Hernandez MD Primary Care Provider + Encounter Details Date Type Department Care Team (Late Contact Info) Description 12/28/2019 Chart Note Ryan Carver [facility] Radiation Therapy [address] [place] [address] [place] [address] [place] [address] Social History Tobacco Use Types [...] 02/19/2025 4:30 PM CDT Telephone Check Up [facility] Oncology and Hematology - [place] [address] [facility] [address] [place] [address] Juliocesar Zelaya MD [address] [facility] [address] [place] [address] documented as of this encounter Visit Diagnoses Not on filedocumented in this encounter Care Teams High Heel Builder Relationship Specialty Start Date End Date Vickey Hernandez MD [address] [place] [address] PCP - General Internal Medicine 07/09/17 documented as of this encounter
--- OUTSIDE RECORDS SUMMARY | 2025-02-15 13:43 | XMS_ITS ---
Author Organization [facility] Address [address] [place] [address] [address] [place] [address] Care Team Providers Care Clinical Partner Name Role Phone Armando Tran Ngo [phone] Medications Medication SIG (Take, Route, Fr equency, Duration) Notes Start Date End Date Status oxyCODONE HCl 5 MG/5ML 10 milliliters Or al every 4 hours for 30 days 01/18/2025 Active Encounters Encounter Location Date Provider Diagnosis [facility] [address] [facility] [address] [place] [address] 01/18/2025 Tran [place] Plan Of Treatment Medication Medication Name Sig Start Date Stop Date Notes oxyCODONE HCl 5 MG/5ML 10 milliliters Or al every 4 hours for 30 days 01/18/2025 Next Appt Details Provider Name:Chantel taylor, 02/15/2025 02:45:00 PM, [address] [place] [address], [facility] [address], [place], [address], Provider Name:Chantel tyalor, 03/15/2025 11:30:00 AM, [address] [place] [address], [address], [place], [address], Progress Notes * Xavier WHALENOB:1960 (64 yo M)Acc No.[id number]:01/18/2025 Patient: Kiran VILLAFANA :1960 A ge:64 Y S ex:Male Address:[address] [place] [address], [place], [address] * Refills Refill oxyCODONE HCl Solution, 5 MG/5ML, 1800 Milliliter, 10 milliliters Oral, every 4 hours, 30 days, Refills=0 * true * Date: Generated for Dalton chin/Ema/Laureitting on: 0 02/15/2025 01:42 PM CDT
--- OUTSIDE RECORDS SUMMARY | 2025-02-15 13:43 | XMS_ITS | Patient Health Record ---
Author Organization [facility] Address [address] [facility] [address] [place] [address] Care Team Providers Care Mechanical Supervisor Name Role Phone Tran [place] Unavailable [phone] Chantel Black Unavailable [phone] Terrance [place] Unavailable [phone] Allergies Allergen (clinical drug ingredient) Drug/Non Drug Allergy documented on EMR Reaction Allergy Type Onset Date Status Penicillin hives Drug Allergy Active Reason For Referral No Information Medications Medication SIG (Take, Route, Frequency, Duration) Notes Start Date End Date Status Pregabalin 150 mg 1 capsule orally twice a day 30 days for 30 02/05/2025 Active oxyCODONE HCl 5 MG/5ML 10 milliliters Or al every 4 hours for 30 days 01/18/2025 Active buPROPion HCl ER (XL) 300 MG [...] day 30 days for 30 Active Nystatin 087171 UNIT/ML TAKE 5 ML (500,0 00 UNITS [...] Status W/U Status Risk Notes Problem Amnesia (14312056) Other amnesia (R41.3) Active confirmed Problem High risk drug monitoring status (661784311) MCC (current) use of opiate analgesic (Z79.891) Active confirmed Problem History of bariatric surgical procedure (202335561) Bariatric surgery status (Z98.84) Active confirmed Problem Lumbar spondylosis (996606864) Lumbar spondylosis (M47.816) Active confirmed Problem Leg length discrepancy (660490181) Leg length discrepancy (M21.70) Active confirmed Problem Hypercholesterolemia (90069068) Hypercholesterolemia (E78.00) Active confirmed Problem Lumbar radiculopathy (793218185) Lumbar radiculopathy (M54.16) Active confirmed Problem Lumbar post-laminectomy syndrome (189126166) Lumbar postlaminectomy syndrome (M96.1) Active confirmed Problem Sacroiliitis (24417054) Sacroiliitis (M46.1) Active confirmed Problem Neck pain (88693879) Cervical sp ine pain (M54.2) Active confirmed Problem Low back pain (011759829) Low back pain (M54.50) Active confirmed Problem Postherpetic neuralgia (9643470) Postherpetic neuralgia (B02.29) Active confirmed Problem COPD - Chronic obstructive pulmonary disease (07444459) COPD (chronic obstructive pulmonary disease) (J44.9) Active confirmed Vital Signs Heart Rate 82 /min 11/09/2024 Respiratory Rate 16 /min 10/12/2024 Height-cm 175.26 cm 11/09/2024 Blood pressure diastolic 88 mm Hg 11/09/2024 Weight-kg 74.39 kg 11/09/2024 Height 5ft 9in in 11/09/2024 Blood pressure systolic 131 mm Hg 11/09/2024 Weight 164 lbs 11/09/2024 BMI 24.22 kg/m2 11/09/2024 Encounters Encounter Location Date Provider Diagnosis [facility] [address] [place] [address] [address] [place] [address] 02/24/2024 Tran [place] [facility] [address] [place] [address] [address] [place] [address] 03/23/2024 Chnatel Black [facility] [address] [place] [address] [address] [place] [address] 04/24/2024 Chantel Balck [facility] [address] [place] [address] [address] [place] [address] 01/18/2025 Chantel Black [facility] [address] [place] [address] [address] [place] [address] 05/22/2024 Chantel Black Postherpetic neuralgia B02.29 ; Low back pain M54.50 ; Other amnesia R41.3 ; Bariatric surgery status Z98.84 and MCC use of drug Z79.899 [facility] [address] [place] [address] [address] [place] [address] 06/19/2024 Chantel Black Low back pain M54.50 ; Other amnesia R41.3 ; Postherpetic neuralgia B02.29 and MCC (current) use of opiate analgesic Z79.891 [facility] [address] [place] [address] [address] [place] [address] 07/17/2024 Chantel Black Low back pain M54.50 ; Other amnesia R41.3 ; Postherpetic neuralgia B02.29 and 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 renewal inspector use of drug Z79.899 [facility] [address] [place] [address] [address] [place] [address] 08/14/2024 Chantel Black Other amnesia R41.3 ; Low back pain M54.50 ; Postherpetic neuralgia B02.29 ; Bariatric surgery status Z98.84 and MCC (current) use of opiate analgesic Z79.891 [facility] [address] [place] [address] [address] [place] [address] 09/12/2024 Joss [place] Other amnesia R41.3 ; Postherpetic neuralgia B02.29 ; Low back pain M54.50 ; Bariatric surgery status Z98.84 ; MCC (current) use of opiate analgesic Z79.891 ; [...] fracture S32.000A and Thoracic compression fracture S22.000A [facility] [address] [place] [address] [address] [place] [address] 10/12/2024 Joss Armando Low back pain M54.50 [...] and TIA (transient ischemic attack) G45.9 DME [facility] [address] [facility] [address] [place] [address] 10/12/2024 Joss Armando Low back pain M54.50 and Lumbar radiculopathy M54.16 [facility] [address] [place] [address] [address] [place] [address] 11/09/2024 Joss Armando Postherpetic neuralg ia B02.29 ; Low back [...] R41.3 ; Bariatric surgery status Z98.84 and MCC (current) use of opiate analgesic Z79.891 [facility] [address] [place] [address] [address] [place] [address] 02/15/2025 Tran [place] [facility] [address] [place] [address] [address] [place] [address] 05/22/2024 Tran [place] [facility] [address] [place] [address] [address] [place] [address] 06/19/2024 Tran [place] [facility] [address] [place] [address] [address] [place] [address] 07/17/2024 Tran [place] [facility] [address] [place] [address] [address] [place] [address] 08/14/2024 Tran [place] [facility] [address] [place] [address] [address] [place] [address] 09/12/2024 Joss [place] [facility] [address] [facility] [address] [place] [address] 10/12/2024 Joss [place] [facility] [address] [facility] [address] [place] [address] 11/09/2024 Joss Armando [facility] [address] [facility] [address] [place] [address] 01/18/2025 Tran [place] Assessments Encounter Date Diagnosis [...] back pain (ICD-1 0 - M54.50) 11/09/2024 Low back pain (ICD-1 0 - M54.50) 11/09/2024 Postherpetic neuralg ia (ICD-10 - B02.29) 11/09/2024 Lumbar spondylosis (ICD-10 - M47.816) 10/12/2024 Leg length discrepan cy (ICD-10 - M21.70) 09/12/2024 Postherpetic neuralg ia (ICD-10 - B02.29) 08/14/2024 Postherpetic neuralg ia (ICD-10 - B02.29) 07/17/2024 Postherpetic neuralg ia (ICD-10 - B02.29) 06/19/2024 Postherpetic neuralg ia (ICD-10 - B02.29) 05/22/2024 Other amnesia (ICD-1 0 - R41.3) Patient to follow-up with Dr. Rivas, neuologist, [facility] 05/22/2024 Bariatric surgery status (ICD-10 - Z98.84) 06/19/2024 termite renewal inspector (current) use of opiate analgesic (ICD-10 - Z79.891) 07/17/2024 termite renewal inspector use of erendira g (ICD-10 - Z79.899) 08/14/2024 Bariatric surgery status (ICD-10 - Z98.84) 09/12/2024 Low back pain (ICD-1 0 - M54.50) 10/12/2024 Lumbar radiculopathy (ICD-10 - M54.16) 11/09/2024 Leg length discrepan cy (ICD-10 - M21.70) 11/09/2024 Lumbar radiculopathy (ICD-10 - M54.16) 10/12/2024 Lumbar postlaminecto my syndrome (ICD-10 - M96.1) 09/12/2024 Bariatric surgery status (ICD-10 - Z98.84) 08/14/2024 MCC (current) use of opiate analgesic (ICD-10 - Z79.891) 05/22/2024 termite renewal inspector use of erendira g (ICD-10 - Z79.899) 09/12/2024 MCC (current) use of opiate analgesic (ICD-10 - Z79.891) 10/12/2024 Sacroiliitis (ICD-10 - M46.1) 11/09/2024 Lumbar postlaminecto my syndrome (ICD-10 - M96.1) 11/09/2024 Sacroiliitis (ICD-10 - M46.1) 10/12/2024 Lumbar spine pain (ICD-10 - M54.50) 09/12/2024 Lumbar spondylosis (ICD-10 - M47.816) 09/12/2024 Leg length discrepan cy (ICD-10 - M21.70) 10/12/2024 Cervical spine pain (ICD-10 - M54.2) 11/09/2024 Cervical spine pain (ICD-10 - M54.2) 10/12/2024 COPD (chronic obstructive pulmonary disease) (ICD-10 - J44.9) 09/12/2024 Left leg pain (ICD-1 0 - M79.605) 11/09/2024 COPD (chronic obstructive pulmonary disease) (ICD-10 - J44.9) 09/12/2024 Lumbar radiculopathy (ICD-10 - M54.16) 11/09/2024 Hypercholesterolemia (ICD-10 - E78.00) 10/12/2024 Postherpetic neuralg ia (ICD-10 - B02.29) 10/12/2024 Hypercholesterolemia (ICD-10 - E78.00) 09/12/2024 S/P bariatric surger y (ICD-10 - Z98.84) 11/09/2024 Lumbar spine pain (ICD-10 - M54.50) 10/12/2024 History of gastric bypass (ICD-10 - Z98.84) 09/12/2024 Fracture of tibia or fibula following insertion of orthopedic implant, joint prosthesis, or bone plate, left leg (ICD-10 - M96.672) 11/09/2024 S/P bariatric surger y (ICD-10 - Z98.84) 11/09/2024 Lung cancer (ICD-10 - C34.90) 09/12/2024 Lumbar spine pain (ICD-10 - M54.50) 10/12/2024 Lung cancer (ICD-10 - C34.90) 10/12/2024 Bariatric surgery status (ICD-10 - Z98.84) 09/12/2024 Memory loss or impairment (ICD-10 - R41.3) 11/09/2024 History of TIA (transient ischemic attack) (ICD-10 - Z86.73) 09/12/2024 Memory loss (ICD-10 - R41.3) 10/12/2024 Other amnesia (ICD-1 0 - R41.3) 11/09/2024 Other amnesia (ICD-1 0 - R41.3) 10/12/2024 TIA (transient ische antoine attack) (ICD-10 - G45.9) 11/09/2024 Bariatric surgery status (ICD-10 - Z98.84) 09/12/2024 TIA (transient ische antoine attack) (ICD-10 - G45.9) 09/12/2024 History of TIA (transient ischemic attack) (ICD-10 - Z86.73) 11/09/2024 termite renewal inspector (current) use of opiate analgesic (ICD-10 - Z79.891) 09/12/2024 Pelvic obliquity (ICD-10 - M95.5) 09/12/2024 [...] took positive delivery today of TLSO brace, [facility] 456 code 0456. Full instructions were given [...] X ray : Spines, lumbar 4 views Next Appt Details Provider Name:Chantel Blum brandon, 02/15/2025 02:45:00 PM, [address] [place] [address], [address], [place], [address], Provider Name:Chantel Blum brandon, 03/15/2025 11:30:00 AM, [address] [place] [address], [address], [place], [address], Insurance Providers Payer Name Payer Address Payer Phone Subscriber Number Group Number Insured Name Patient Relationship to Insured Coverage Start Date Coverage End Date [place] [address] [address] [place] [address] [id number] Kiran Smith Self - patient is the insured 1 [facility] [address] [place] [address] [id number] PLAN G Kiran Smith Self - patient is the insured Medical (General) History Medical History History ICD Code Lung cancer Depression TIA Post herpetic neuralgia Surgical History Surgery Date(Month/Year) Gastric bypass ORIF left leg right middle lobectomy Hospitalization History Reason Date(Month/Year) no hospitalization since prior visit
--- OUTSIDE RECORDS SUMMARY | 2025-02-15 13:43 | XMS_ITS | Clinical Summary ---
Author Organization [facility] Address [address] [place] [address] Care Team Providers Care Music Rehabilitation Therapist Name Role Phone Vickey Hernandez MD Primary Care Provider [phone] Allergies Active Allergy Reactions Criticality Noted Date [...] CDT - 01/28/2025 10:33 PM CDT Emergency [facility] [place] [address] Migue Gilbert MD Altered Mental Status Discharge [...] P M CDT Height 175.3 cm (5' 9) 01/28/2025 5:56 PM CDT Body Mass Index 21.62 01/28/2025 5:56 PM CDT Plan of Treatment Health Maintenance Due Date Last Done Comments Colorectal Cancer Screening Colonoscopy (10 Years) 1960 Hepatitis C 1977 Pneumococcal Vaccine: 50+ Ye ars (1 of 1 - PCV) 2009 Zoster Vaccines (1 of 2) 2009 COVID-19 Vaccine (1 - 2023-2 5 season) 2024 PHQ-2 (Physician Lytton) 10/04/2024 DTaP, Tdap and Td Vaccines ( [...] this topic Medical Devices Implanted Type Area Operations Asst Device Identifier Shelf Expiration Date Model / [...] of2 resultswithin the time period is included. [facility] TROPONIN I HIGH SENSITIVITY 7 <79 ng/L 01/28/2025 9:33 PM CDT [facility] Comment: HIGH DOSES OF BIOTIN, TROPONIN-SPECIFIC AUTOANTIBODIES, AND ANTIBODY THERAPY CONTAINING HAMA MAY INTERFERE WITH THIS TEST RESULT. CORRELATION TO CLINICAL HISTORY AND PRESENTATION RECOMMENDED. 01/28/2025 8:53 PM CDT Migue Gilbert MD LABORATORY Final Result [facility] [address] [place] [id number], * (ABNORMAL) DRUG SCREEN RAPID (01/28/2025 8:28 PM CDT) Pathologist [facility] [place] AMPHETAMINE (U) POSITIVE(A) NEGATIVE 01/29/20 9:12 PM CDT [facility] BARBITURATES SCREEN (U) NEGATIVE NEGATIVE 01/28/2025 9:12 PM CDT [facility] BENZODIAZEPINES SCREEN (U) NEGATIVE NEGATIVE 01/28/2025 9:12 PM CDT [facility] CANNABINOIDS SCREEN (U) POSITIVE(A) NEGATIVE 01/28/2025 9:12 PM CDT [facility] COCAINE METABOLITES (U) NEGATIVE NEGATIVE 01/28/2025 9:12 PM CDT [facility] METHADONE (U) NEGATIVE NEGATIVE 01/28/2025 9:12 PM CDT [facility] OPIATE SCREEN (U) POSITIVE(A) NEGATIVE 2024 9:12 PM CDT [facility] PHENCYCLIDINE PCP (U) NEGATIVE NEGATIVE 01/28/2025 9:12 PM CDT [facility] Comment: NOTE: RESULTS OF THIS DRUG SCREEN SHOULD BE USED FOR MEDICAL PURPOSES ONLY AND NOT FOR LEGAL OR EMPLOYMENT PURPOSES. POSITIVE RESULTS ARE NOT CONFIRMED. MEDICATIONS CONTAINING EPHEDRINE MAY CAUSE FALSE POSITIVE AMPHETAMINE CALL [phone], LAB, TO REQUEST CONFIRMATION TESTING. IF CREATININE IS <40 mg/dL. RECOLLECTION IS SUGGESTED. AMPHETAMINE- 500 NG/ML BARBITURATE- 200 NG/ML BENZODIAZEPINES- 200 NG/ML THC- 50 NG/ML COCAINE- 150 NG/ML METHADONE- 300 NG/ML OPIATE- 300 MG/ML PCP- 25 NG/ML CREATININE (U) 187.0 39 - 259 MG/DL 01/28/2025 9:12 PM CDT [facility] URINE SPECIMEN / Unknown 01/28/2025 8:28 PM CDT Migue Gilbert MD URINE ORDERABLES Final Result [facility] [address] [place] [address], * (ABNORMAL) URINALYSIS (01/28/2025 8:28 PM CDT) SPECIMEN TYPE URINE CLEAN CATCH 01/28/2025 8:26 PM CDT [facility] COLOR (U) YELLOW 01/28/2025 8:42 PM CDT [facility] TRANSPARENCY CLEAR 01/28/2025 8:42 PM CDT [facility] SPECIFIC GRAVITY (U) 1.029 1.001 - 1.030 01/28/2025 8:42 PM CDT [facility] U PH 5.5 5.0 - 9.0 01/28/2025 8:42 PM CDT [facility] LEUKOCYTES (U) 25(A) NEGATIVE 01/28/2025 8:42 PM CDT [facility] NITRITES NEGATIVE NEGATIVE 01/28/2025 8:42 PM CDT [facility] PROTEIN RANDOM (U) 20 <30 MG/DL 01/28/2025 8:42 PM CDT [facility] GLUCOSE (U) NORMAL NORMAL MG/DL 01/28/2025 8:42 PM CDT [facility] KETONES MG/DL (U) NEGATIVE NEGATIVE MG/DL 01/28/2025 8:42 PM CDT [facility] UROBILINOGEN NORMAL NORMAL MG/DL 01/28/2025 8:42 PM CDT [facility] BILIRUBIN (U) NEGATIVE NEGATIVE MG/DL 01/28/2025 8:42 PM CDT [facility] BLOOD (U) 3+(A) NEGATIVE 01/28/2025 8:42 PM CDT [facility] MUCUS RARE /LPF 01/28/2025 8:42 PM CDT [facility] HYALINE CASTS RARE /LPF 01/28/2025 8:42 PM CDT [facility] WBC/HPF 4 <6 /HPF 01/28/2025 8:42 PM CDT [facility] RBC/HPF >100(H) <6 /HPF 01/28/2025 8:42 PM CDT [facility] CA OXALATE CRYSTALS RARE /HPF 01/28/2025 8:42 PM CDT [facility] SQUAMOUS EPITHELIALS RARE /HPF 01/28/2025 8:42 PM CDT [facility] URINE SPECIMEN OBTAINED BY CLEAN CATCH PROCEDURE / Unknown 01/28/2025 8:28 PM CDT Migue Gilbert MD URINE ORDERABLES Final Result [facility] [address] [place] [address], * EKG Reading (01/28/2025 8:06 PM CDT) [...] rate 72. 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: : 1960 Requested By: MIGUE GILBERT Order Number: [id number] Reading MD: Chandana Knox Measurements Intervals Pimento Rate: 72 P: 78 PA: 185 QRS: 3 QRSD: 109 T: 59 QT: 376 QTc: 413 Interpretive Statements SINUS RHYTHM Compared to ECG 03/01/2016 16:33:55 No significant changes Procedure Note Chandana Knox MD - 01/29/[address] Test Date: 2025-01-28 Pat Name: KIRAN SMITH Department: 41 Room: [place] [address] Gender: Male 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: : 1960 Requested By: MIGUE GILBERT Order Number: [id number] Reading MD: Chandana Knox Measurements Intervals Pimento Rate: 72 P: 78 PA: 185 QRS: 3 QRSD: 109 T: 59 QT: 376 QTc: 413 Interpretive Statements SINUS RHYTHM Compared to ECG 03/01/2016 16:33:55 No significant changes Migue Gilbert MD ECG ORDERABLES Final Result [facility] * LACTIC ACID W REFLEX (SEPSIS) (01/28/2025 7:25 PM CDT) LACTIC ACID VENOUS 0.6 0.4 - 2.0 MMOL/L 01/28/2025 8:18 PM CDT [facility] 01/28/2025 7:25 PM CDT Migue Gilbert MD LABORATORY Final Result [facility] [address] [place] [address], [place] [phone] * XR CHEST PORTABLE (01/28/2025 6:44 PM CDT) Anatomical Region Laterality Modality Chest Radiographic Haydee ging 01/28/2025 6:58 PM CDT Impressions 01/28/2025 7:04 PM CDT IMPRESSION: Bilateral lung abnormalities. Referred By: Interpreted By: Randy Lubin MD, 01/28/2025 6:58 PM Narrative 01/28/2025 7:04 PM [address] [address] EXAM: XR CHEST PORTABLE DATE: 01/28/2025 1835 [...] Procedure Note Randy Lubin MD - 01/28/[address] [address] EXAM: XR CHEST PORTABLE DATE: 01/28/2025 1835 [...] THROMBOPLASTIN TIME,PTT (01/28/2025 6:19 PM CDT) Pathologist [facility] [place] PTT 31.4 25.1 - 36.5 SEC 01/28/2025 7:14 PM CDT [facility] 01/28/2025 6:19 PM CDT Migue Gilbert MD LABORATORY Final Result Performing Organization Address [facility]/ZIP Co de Phone Number [facility] [address] [place] [address], [place] [phone] * PROTIME/INR, VENOUS (01/28/2025 6:19 PM CDT) Pathologist [facility] [place] PROTIME 12.3 10.2 - 12.9 SEC 01/28/2025 7:14 PM CDT [facility] INR 1.1 01/28/2025 7:14 PM CDT [facility] Comment: Recommended INR Therapeutic Goals: 2.0-3.0 Routine Therapy 2.5-3.5 Mechanical Prosthetic Valves (High Risk) 01/28/2025 6:19 PM CDT Migue Gilbert MD LABORATORY Final Result Performing Organization Address City/[facility]/ZIP Co de Phone Number [facility] [address] [place] [address], [place] [phone] * (ABNORMAL) COMPREHENSIVE METABOLIC PANEL (01/28/2025 6:19 PM CDT) Pathologist [facility] [place] GLUCOSE 89 70 - 99 MG/DL 01/28/2025 7:32 PM CDT [facility] BUN 21(H) 7 - 18 MG/DL 01/28/2025 7:32 PM CDT [facility] CREATININE S/P/B 1.03 0.7 - 1.3 MG/DL 01/28/2025 7:32 PM CDT [facility] SODIUM S/P/B 135(L) 136 - 145 MMOL/L 01/28/2025 7:32 PM CDT [facility] POTASSIUM S/P/B 5.0 3.5 - 5.1 MMOL/L 01/28/2025 7:32 PM CDT [facility] Comment:SLIGHT HEMOLYSIS, RE SULT MAY BE AFFECTED. CHLORIDE S/P/B 103 97 - 115 MMOL/L 01/28/2025 7:32 PM CDT [facility] CO2 25.1 21 - 32 MMOL/L 01/28/2025 7:32 PM CDT [facility] CALCIUM S/P/B 8.8 8.5 - 10.1 MG/DL 01/28/2025 7:32 PM CDT [facility] BILIRUBIN TOTAL S/P/B 0.4 0.2 - 1.2 MG/DL 01/28/2025 7:32 PM CDT [facility] Comment: THIS ASSAY IS NOT RECOMMENDED FOR PATIENTS UNDERGOING TREATMENT WITH ELTROMBOPAG DUE TO THE POTENTIAL FOR FALSELY ELEVATED RESULTS. TOTAL PROTEIN S/P/B 7.8 6.4 - 8.2 G/DL 01/28/2025 7:32 PM CDT [facility] ALBUMIN S/P/B 2.8(L) 3.4 - 5.0 G/DL 01/28/2025 7:32 PM CDT [facility] AST 32 15 - 37 U/L 01/28/2025 7:32 PM CDT [facility] Comment:SLIGHT HEMOLYSIS, RE SULT MAY BE AFFECTED. ALT 23 16 - 60 U/L 01/28/2025 7:32 PM CDT [facility] ALKALINE PHOSPHATASE S/P/B 117 50 - 136 U/L 01/28/2025 7:32 PM CDT [facility] ANION GAP 6.9 2 - 10 MMOL/L 01/28/2025 7:32 PM CDT [facility] BUN CREATININE RATIO 20.4 6 - 26 01/28/2025 7:32 PM CDT [facility] A/G RATIO 0.6(L) 1.0 - 2.0 RATIO 01/28/2025 7:32 PM CDT [facility] GFR ESTIMATE 81(L) >90 ML/MIN/1.7 3 M2 01/28/2025 7:32 PM CDT [facility] Comment: NOTE: eGFR is not calculated for patients <18 years of age or gender unknown. This is an estimated GFR calculation using the new CKD EPI creatinine equation without race and so does not require a correction factor for race. This estimated GFR should not be used for calculating drug doses. 01/28/2025 6:19 PM CDT Migue Gilbert MD LABORATORY Final Result [facility] [address] [place] [address], [place] [phone] * (ABNORMAL) CBC W/DIFF AUTOMATED (01/28/2025 6:19 PM CDT) WBC 8.14 4.5 - 11.0 x10'3/uL 01/28/2025 6:55 PM CDT [facility] RBC 5.20 4.70 - 6.10 x10'6/uL 01/28/2025 6:55 PM CDT [facility] HGB 13.0(L) 14.0 - 18.0 G/DL 01/28/2025 6:55 PM CDT [facility] HCT 42.7(L) 43.0 - 54.0 % 01/28/2025 6:55 PM CDT [facility] MCV 82.1 80.0 - 94.0 FL 01/28/2025 6:55 PM CDT [facility] MCH 25.0(L) 27.0 - 31.0 PG 01/28/2025 6:55 PM CDT [facility] MCHC 30.4(L) 32.0 - 36.0 G/DL 01/28/2025 6:55 PM CDT [facility] RDW 16.7(H) 11.5 - 14.5 % 01/28/2025 6:55 PM CDT [facility] PLT 320 130 - 400 x10'3/uL 01/28/2025 6:55 PM CDT [facility] MPV 9.4 9.3 - 12.2 FL 01/28/2025 6:55 PM CDT [facility] DIFFERENTIAL TYPE AUTOMATED DIFFERENTIAL 01/28/2025 6:55 PM CDT [facility] NEUTROPHILS % 63.8 % 01/28/2025 6:55 PM CDT [facility] LYMPHOCYTES % 17.6 % 01/28/2025 6:55 PM CDT [facility] MONOCYTES % 11.9 % 01/28/2025 6:55 PM CDT [facility] EOSINOPHILS 5.2 % 01/28/2025 6:55 PM CDT [facility] BASOPHILS 1.1 % 01/28/2025 6:55 PM CDT [facility] IMMATURE GRANS % 0.4 % 01/29/20 6:55 PM CDT [facility] ABS. NEUTROPHILS 5.20 1.80 - 7.70 x10'3/uL 01/28/2025 6:55 PM CDT [facility] ABS. LYMPHOCYTES 1.43 1.00 - 4.80 x10'3/uL 01/28/2025 6:55 PM CDT [facility] ABS. MONOCYTES 0.97(H) 0.30 - 0.82 x10'3/uL 01/28/2025 6:55 PM CDT [facility] ABS. EOSINOPHILS 0.42 0.04 - 0.54 x10'3/uL 01/28/2025 6:55 PM CDT [facility] ABS. BASOPHILS 0.09(H) 0.01 - 0.08 x10'3/uL 01/28/2025 6:55 PM CDT [facility] ABS. IMMATURE GRANULOCYTES 0.03 0.00 - 0.49 x10'3/uL 01/28/2025 6:55 PM CDT [facility] 01/28/2025 6:19 PM CDT Migue Gilbert MD LABORATORY Final Result Performing Organization Address City/[facility]/ZIP Co de Phone Number [place] [id number], * ETHANOL (01/28/2025 6:19 PM CDT) ALCOHOL S/P/B <0.003 <0.003 G/DL 01/28/2025 7:32 PM CDT [facility] 01/28/2025 6:19 PM CDT Migue Gilbert MD LABORATORY Final Result [facility] [address] [place] [address], [place] [phone] from Last [address] [place] [place] [address] MEDICARE Care Teams Music Rehabilitation Therapist Relationship Specialty Start Date End Date Vickey Hernandez MD PCP - General 01/06/17
--- OUTSIDE RECORDS SUMMARY | 2025-02-15 13:44 | XMS_ITS ---
Author Organization [facility] Address [address] [place] [address] [address] [place] [address] Care Team Providers Care Office Rep Name Role Phone Armando Tran Ngo [phone] Medications Medication SIG (Take, Route, Fr equency, Duration) Notes Start Date End Date Status oxyCODONE HCl 5 MG/5ML 10 milliliters Or al every 4 hours for 30 days 01/18/2025 Active Encounters Encounter Location Date Provider Diagnosis [facility] [address] [facility] [address] [place] [address] 02/15/2025 Tran Roberts Plan Of Treatment Medication Medication Name Sig Start Date Stop Date Notes oxyCODONE HCl 5 MG/5ML 10 milliliters Or al every 4 hours for 30 days 01/18/2025 Next Appt Details Provider Name:Chantel taylor, 02/15/2025 02:45:00 PM, [address] [place] [address], [facility] [address], [place], [address], Provider Name:Chantel taylor, 03/15/2025 11:30:00 AM, [address] [place] [address], [address], [place], [address], Progress Notes * Xavier WHALENOB:1960 (64 yo M)Acc No.[id number]:02/15/2025 Patient: Kiran VILLAFANA :1960 A ge:64 Y S ex:Male Address:[address] [place] [address], [place], [address] * Refills Refill oxyCODONE HCl Solution, 5 MG/5ML, 1800 Milliliter, 10 milliliters Oral, every 4 hours, 30 days, Refills=0 * * Date:
--- OUTSIDE RECORDS SUMMARY | 2025-02-15 13:44 | XMS_ITS ---
Author Organization [facility] Address [address] [place] [address] [address] [place] [address] Care Team Providers Care Research Advisor Name Role Phone Wayne Chantel Jeni [phone] REASON FOR VISIT meds uds needed Encounters Encounter Location Date Provider Diagnosis [facility] [address] [facility] [address] [place] [address] 02/15/2025 Chantel Black Plan Of Treatment Next Appt Details Provider Name:Chantel taylor, 02/15/2025 02:45:00 PM, [id number] [place] [address], [address], [place], [address], Provider Name:Chantel taylor, 03/15/2025 11:30:00 AM, [address] [place] [address], [address], [place], [address], Progress Notes * Xavier SMITHOB:1960 (64 yo M)Acc No.[id number]:02/15/2025 Patient: Srinivas VILLAFANAmie Appointment Provider: Jabari Black NP :1960 A ge:64 Y S ex:Male Supervising Provider:Tran Roberts MD Date:02/15/2025 Address:[address] [place] [id number] Subjective: * Chief Complaints: * 1 . Meds uds needed. * Medical History: Objective: * Vitals: Assessment: Plan: * Treatment: * Billing Information: * Visit Code: * Procedure Codes: * Electronic signature of Helga Roberts MD on 02/15/2025 at 01:43 PM CDT Sign off status: Pending * Appointment Provider: Jabari Black NP Date: 02/15/2025 Generated for Printing/Faxing/eTransmitting on: 02/15/2025 01:43 PM CDT
--- OUTSIDE RECORDS SUMMARY | 2025-02-15 13:44 | XMS_ITS | Clinical Summary ---
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 Gender Identity Not on file Sexual [...] 10:03 AM CDT Height 175.3 cm (5' 9) 01/24/2024 10:03 AM CDT Body Mass Index [...] (2 - Td or Tdap) 11/29/2032 Insurance [facility] MEDICARE [facility] MEDICARE SUPPLEMENT MEDICARE [place] Advance Directives For more information, please contact: [phone] * Full Code (Latest Code Status on [...] 10:52 PM 04/18/2023 2:18 PM Care Teams Mc Kay Machine Operator Relationship Specialty Start Date End Date Vickey Hernandez MD [address] [facility] [address] [place] [address] PCP - General 03/20/14 Felipe Brand MD [address] [facility] [phone] [place] [address] (work) Referring Physician General Surgery 05/02/23
--- OUTSIDE RECORDS SUMMARY | 2025-02-15 13:44 | XMS_ITS | Referral Summary ---
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 Gender Identity Not on file Sexual Orientation [...] Plan of Treatment Not on file Insurance [facility] MEDICARE [facility] Address: [address] [address] [place] [address] [facility] MEDICARE SUPPLEMENT MEDICARE [facility] Advance Directives For more information, please contact: [phone] * Full Code (Latest Code Status on [...] 10:52 PM 04/18/2023 2:18 PM Care Teams Thread Winder Automatic Relationship Specialty Start Date End Date Vickey Hernandez MD [address] [place] [address] [place] [id number] PCP - General 03/20/14 Fleipe Brand MD [address] [facility] [id number] [place] [address] Referring Physician General Surgery 05/02/23
[2025-02-15 13:45] LABS: Basophils Percent Auto 0.5 % (0.2-1.2); Eosinophils Absolute Auto 0.6 K/mm3 (0-0.3); Eosinophils Percent Auto 7.7 % (0-4.4); Hematocrit 42.9 % (42.0-52.0); Immature Granulocyte Absolute 0.03 K/mm3 (0.00-0.031); Immature Granulocyte Percent A 0.4 % (0-0.5); Lymphocytes Absolute Auto 1.35 K/mm3 (0.9-3.2); Lymphocytes Percent Auto 17.1 % (18.3-44.2); Mean Corpuscular HGB Conc 30.3 g/dl (32-36); Mean Corpuscular Volume 82.3 fl (80-100); Mean Platelet Volume 9.1 fl (7.4-10.4); Monocytes Absolute Auto 0.5 K/mm3 (0.1-0.6); Monocytes Percent Auto 6.1 % (2.6-8.5); Neutrophils Absolute Auto 5.4 K/mm3 (1.3-6.7); Neutrophils Percent Auto 68.2 % (45.5-73.1); Platelet Count Result 310 k/mm3 (150-375); Red Blood Count 5.21 M/mm3 (4.6-6.20); White Blood Count 7.9 K/mm3 (4.5-10.0)
[2025-02-15 13:53] LABS: Alveolar/Arterial O2 Gradient 93.7 mmHg; Base Excess ABG 2.1 mEq/l (+/-2.0); Fractional Inspired Oxygen 28 %; HCO3 ABG 25.8 mEq/l (22.0-26.0); Oxygen Content ABG 16.7 %vol (16.0-22.0); Oxygen Saturation ABG 92.9 % (95.0-100.0); Oxyhemoglobin 90.5 % THb (90.0-100.0); PCO2 ABG 37.5 mmHg (35.0-45.0); PO2 ABG 61.7 mmHg (80.0-100.0); Total Hemoglobin 13.1 g/dL (12.0-18.0); pH ABG 7.456 (7.350-7.450)
[2025-02-15 13:55] LABS: Lactic Acid Reflex 0.8 mmol/L (0.7-2.0)
[2025-02-15 13:58] LABS: Device NASAL CANNULA; Modified Allen's Test Pass; Site Drawn RIGHT RADIAL
--- NOTE | 2025-02-15 14:08 | ED.SOB ---
HPI - SOB/Dyspnea General Chief Complaint: Shortness of Breath/Dyspnea Stated Complaint: SOB Time Seen by Provider: 02/15/25 13:22 History of Present Illness HPI Narrative: Patient presents here with increasing shortness of breath, having recently diagnosed with pneumonia and sent home with antibiotics and despite taking the antibiotics, has been having more shortness of breath. EMS gave DuoNebs without much improvement. Related Data Home Medications ?Medication ?Instructions ?Recorded ?Confirmed ?Last Taken ?Type lidocaine 5 % topical patch 1 patch topical DAILY 08/17/19 02/01/25 11/13/24 History mv-folic acid 200 mcg-D3 300 1 tablet PO DAILY 08/17/19 02/01/25 11/13/24 History unit-K2 20 [id number] tablet (Stages Men's Multi-Vitamin) omeprazole 20 mg capsule,delayed 20 mg PO BID 08/17/19 02/01/25 11/13/24 History release pregabalin 150 mg capsule (Lyrica) 150 mg PO DAILY 05/15/20 02/01/25 11/13/24 History ferrous sulfate 325 mg (65 mg 325 mg PO DAILY 01/28/23 02/01/25 11/13/24 History iron) tablet oxycodone 10 mg/0.5 mL oral 10 mg PO Q4H 10/13/23 02/01/25 11/13/24 History syringe (FOR ORAL USE ONLY) aspirin 81 mg tablet,delayed 81 mg PO DAILY 04/26/24 02/01/25 11/13/24 History release (Adult Low Dose Aspirin) vitamin B complex 1 tablet PO DAILY 04/26/24 02/01/25 11/13/24 History trazodone 50 mg tablet 100 mg PO QHS 11/14/24 02/01/25 11/12/24 History lorazepam 0.5 mg tablet 0.5 mg PO TID PRN anxiety 01/20/25 02/01/25 Unknown History Allergies Allergy/AdvReac Type Severity Reaction Status Date / Time Penicillins Allergy Unknown Itching Verified 02/01/25 11:00 Review of Systems Review of Systems: All systems reviewed & are unremarkable except as noted in HPI and below PMFSH Past Medical History Medical History (Updated 02/15/25 @ 16:02 by Carolina Goel MD) BMI 21.0-21.9, adult BMI 26.0-26.9,adult Facial rash Impaired functional mobility, balance, gait, and endurance Facial droop Bowel perforation Crushing injury leg Encounter for Medicare annual wellness exam BMI 24.0-24.9, adult Hypotension Tibial fracture Absence seizure Borderline abnormal TFTs Vitamin B2 deficiency Vitamin B1 deficiency Cognitive changes Tremor Acute nonintractable headache Chronic fatigue Change in vision BMI 22.0-22.9, adult Back pain Cervicalgia BMI 32.0-32.9,adult NAVARRETE (dyspnea on exertion) BMI 31.0-31.9,adult Encounter for routine adult health examination with abnormal findings BMI 30.0-30.9,adult Hearing loss Myopia BMI 29.0-29.9,adult Encounter for preventive health examination Breast tenderness in male Vitamin D deficiency Squamous cell carcinoma BMI 25.0-25.9,adult Encounter for routine adult health examination with abnormal findings Tobacco abuse Shortness of Breath Hemoptysis DJD (degenerative joint disease) Hematuria GERD (gastroesophageal reflux disease) BMI 27.0-27.9,adult Encounter for routine adult health examination without abnormal findings COPD (chronic obstructive pulmonary disease) Follow up Personal history of nicotine dependence Hematoma Chronic low back pain Ataxia CTS (carpal tunnel syndrome) Vitamin B12 deficiency On long term care administrator drug therapy Iron deficiency anemia Hearing loss of both ears Surgical History Surgical History S/P pneumonectomy Previous back surgery x6 Hx of gastric bypass Family History Family History Father Family history of heart disease in male family member before age 55 Family history of cardiovascular disease Hypertension Mother Family history of heart disease in male family member before age 55 Family history of cardiovascular disease Family history of diabetes mellitus in first degree relative Family history of malignant neoplasm of brain Hypertension Social History Social History Smoking packs per day: 2 Smoking cigarettes per day: 40.0 Years smoked: 40 Smoking pack-years: 80.00 Smoking status: Former smoker Tobacco type: cigarettes Second hand tobacco smoke exposure: No Smoking end date: 02/02/20 Additional smoking assessment comments: pt. doesn't know when he stopped smoking cigarettes Alcohol intake: never Substance use: never Substance use type: marijuana Other substance usage details: Gummies Last use: 11/13/24 Do You Feel Safe in your Home?: Yes Lack of Transportation: No Lack of Food: Never True Current Housing: I Have Housing Concerned About Future Housing: No Difficulty Paying Gas/Electric Bills: No Difficulty Paying for Meds: No Currently Unemployed: No Education: High School Diploma/GED Difficulty w/ Childcare or Family Care: No Living arrangements: with family Occupation/Education: unemployed Gender identity (if verbalized by the patient): Male Spiritual care concerns: No Exam Narrative: EXAMINATION OF ORGAN SYSTEMS/BODY AREAS: Constitutional: Vital signs per nursing GENERAL: Appears dyspneic HEAD: Normal with no signs of head trauma. EYES: EOMI, conjunctiva normal ENT: Hearing grossly intact LUNGS: Dyspnea, diminished lung sounds on left HEART: [Regular rate and rhythm] ABD: [Soft], [nontender to palpation] EXT: Normal range of motion SKIN: [No rashes or lesions.] NEURO: [Alert. No gross focal sensory or strength deficits.] PSYCH: Normal affect Course Vital Signs Vital signs: Vital Signs Temperature 97.9 F 02/15/25 13:16 Pulse Rate 97 02/15/25 13:16 Respiratory Rate 29 H 02/15/25 13:16 Blood Pressure 125/71 02/15/25 13:16 Pulse Oximetry 97 02/15/25 13:16 Oxygen Delivery Nasal Cannula 02/15/25 13:16 Oxygen Flow Rate 4 02/15/25 13:16 Temperature 97.9 F 02/15/25 13:16 Pulse Rate 99 02/15/25 13:34 Respiratory Rate 33 H 02/15/25 13:34 Blood Pressure 111/74 02/15/25 13:34 Pulse Oximetry 95 02/15/25 13:34 Oxygen Delivery Nasal Cannula 02/15/25 13:31 Oxygen Flow Rate 2 02/15/25 13:31 Procedures ABG Interpretation ABG Interpretation 1: ABG Results: Low O2 Interpretation: abnormal MDM - SOB/Dyspnea MDM Narrative Medical decision making narrative: Patient presenting here with increasing shortness of breath and cough despite being on antibiotics, a concern for possible worsening pneumonia, also considered ACS, PE, CHF, COPD. The patient requiring 5 L oxygen here compared to his usual baseline of 2 L. EKG my independent interpretation shows sinus tachycardia at rate 100, NM 163, QRS 95, QTC 436, normal axis, no obvious ST elevations or depressions. Chest x-ray does show likely worsening pneumonia, CT PE obtained without PE the with worsening left-sided pneumonia. Since patient has failed outpatient antibiotics I will start him on broad-spectrum for hospital-acquired pneumonia since he was just admitted here recently with pneumonia. Discussed with hospitalist for admission. Lab Data 02/15/25 13:30 02/15/25 13:30 Labs: Lab Results 02/15/25 Range/Units 13:30 WBC 7.9 (4.5-10.0) K/mm3 RBC 5.21 (4.6-6.20) M/mm3 Hgb 13.0 L (14.0-18.0) g/dL Hct 42.9 (42.0-52.0) % MCV 82.3 (80-100) fl MCH 25.0 L (26-34) pg MCHC 30.3 L (32-36) g/dl RDW 17.0 H (11.5-14.5) % Plt Count 310 (150-375) k/mm3 MPV 9.1 (7.4-10.4) fl Immature Gran % (Auto) 0.4 (0-0.5) % Neut % (Auto) 68.2 (45.5-73.1) % Lymph % (Auto) 17.1 L (18.3-44.2) % [place] % (Auto) 6.1 (2.6-8.5) % Eos % (Auto) 7.7 H (0-4.4) % Baso % (Auto) 0.5 (0.2-1.2) % Lymph # (Auto) 1.35 (0.9-3.2) K/mm3 [place] # (Auto) 0.5 (0.1-0.6) K/mm3 Eos # (Auto) 0.6 H (0-0.3) K/mm3 Baso # (Auto) 0.0 (0.0-0.1) K/mm3 Abs Immat Gran (auto) 0.03 (0.00-0.031) K/mm3 Absolute Neuts (auto) 5.4 (1.3-6.7) K/mm3 Absolute Nucleated RBC 0.000 (0.0-0.012) K/mm3 Nucleated RBC % 0.0 (0.0-0.2) % D-Dimer 0.78 H (<0.48) ug/mL Sodium 140 (137-145) mmol/L Potassium 4.1 (3.4-5.0) mmol/L Chloride 103 (98-107) mmol/L Carbon Dioxide 30 (22-30) mmol/L Anion Gap 7 (4-12) mmol/L BUN 14 (9-20) mg/dL Creatinine 0.84 (0.7-1.3) mg/dL Estim Creat Clear Calc 71 ml/min Estimated GFR > 60 (59 - ) Glucose 87 (65-110) mg/dL Lactic Acid 0.8 (0.7-2.0) mmol/L Calcium 8.6 (8.4-10.2) mg/dL Magnesium 2.1 (1.6-2.3) mg/dL Total Bilirubin 0.5 (0.2-1.3) mg/dL AST 26 (17-59) U/L ALT 13 (6-50) U/L Alkaline Phosphatase 109 (38-126) U/L NT-Pro-B Natriuret Pep 220 H (19.9-100) pg/mL Total Protein 7.0 (6.3-8.2) g/dL Albumin 3.4 L (3.5-5.1) g/dL ABG Data ABG results: 02/15/25 13:43 Puncture Site Right radial ABG pH 7.456 H ABG pCO2 37.5 ABG pO2 61.7 L ABG PO2/FiO2 Ratio 2.20 ABG HCO3 25.8 ABG O2 Saturation 92.9 L ABG O2 Content 16.7 ABG Base Excess 2.1 A-a Gradient 93.7 Oxyhemoglobin 90.5 Total Hemoglobin 13.1 O2 Delivery Device Nasal cannula O2 Liters/Min 2.0 FiO2 28 Critical Care Time Critical Care Time Critical Care Time: Yes Total Critical Care Time: 31 Discharge Plan Discharge Clinical Impression: Acute hypoxic respiratory failure Pneumonia Qualifiers: Pneumonia type: due to unspecified organism Laterality: unspecified laterality Lung location: unspecified part of lung Qualified Code(s): J18.9 - Pneumonia, unspecified organism Patient Disposition: Still a Patient Condition: Serious Patient Language: Gibralt[place] Prescriptions: No Action lidocaine 5 % adhesive patch,medicated 1 patch TOPICAL DAILY omeprazole 20 mg capsule,delayed release(DR/EC) 20 mg PO BID Stages Men's Multi-Vitamin 200 mcg-300 unit-20 mcg tablet 1 tablet PO DAILY pregabalin [Lyrica] 150 mg capsule 150 mg PO DAILY ferrous sulfate 325 mg (65 mg iron) tablet 325 mg PO DAILY oxycodone 10 mg/0.5 mL syringe 10 mg PO Q4H tizanidine 4 mg capsule 4 mg PO TID PRN (Reason: muscle spasticity) Qty: 30 0RF albuterol sulfate 90 mcg/actuation HFA aerosol inhaler See Rx Instructions .ROUTE .COMPLEX Qty: 8.5 1RF Dose Instruction: TAKE 1-2 PUFFS EVERY 4 HOURS NEEDED FOR SHORTNESS OF BREATH/WHEEZING. Rx Instructions: TAKE 1-2 PUFFS EVERY 4 HOURS NEEDED FOR SHORTNESS OF BREATH/WHEEZING. vitamin B complex Tablet 1 tablet PO DAILY aspirin [Adult Low Dose Aspirin] 81 mg tablet,delayed release (DR/EC) 81 mg PO DAILY midodrine 2.5 mg tablet 2.5 mg PO BID Qty: 180 1RF Rx Instructions: do not give last dose of day after 6PM or within 4 hrs of bedtime trazodone 50 mg tablet 100 mg PO QHS albuterol sulfate 1.25 mg/3 mL solution for nebulization 1.25 mg inhalation Q4H Qty: 75 0RF lorazepam 0.5 mg tablet 0.5 mg PO TID PRN (Reason: anxiety) azithromycin 250 mg tablet 250 mg PO DAILY 4 Days Qty: 4 0RF Rx Instructions: start on day 2 of therapy cefdinir 300 mg capsule 300 mg PO Q12H 4 Days Qty: 8 0RF paroxetine HCl 40 mg tablet See Rx Instructions .ROUTE .COMPLEX Qty: 90 1RF Dose Instruction: TAKE 1 TABLET BY MOUTH EVERY DAY Rx Instructions: TAKE 1 TABLET BY MOUTH EVERY DAY cyanocobalamin (vitamin B-12) 1,000 mcg/mL solution See Rx Instructions .ROUTE .COMPLEX Qty: 3 1RF Dose Instruction: INJECT 1ML INTO MUSCLE ONCE MONTHLY Rx Instructions: INJECT 1ML INTO MUSCLE ONCE MONTHLY BD Luer-Collin Syringe 3 mL 25 gauge x 1 syringe See Rx Instructions .ROUTE .COMPLEX Qty: 3 3RF Dose Instruction: FOR FOR ONCE MONTHLY IM INJECTIONS OF VITAMIIN B12 DIRECTED Rx Instructions: FOR ONCE MONTHLY IM INJECTIONS OF VITAMIIN B12 DIRECTED Trelegy Ellipta 100-62.5-25 mcg blister with device 1 inh inhalation DAILY Qty: 60 3RF bupropion HCl 300 mg tablet extended release 24 hr See Rx Instructions .ROUTE .COMPLEX Qty: 90 0RF Dose Instruction: TAKE 1 TABLET BY MOUTH EVERY MORNING Rx Instructions: TAKE 1 TABLET BY MOUTH EVERY MORNING levetiracetam 500 mg tablet extended release 24 hr 1,500 mg PO QHS Qty: 300 2RF azithromycin 500 mg tablet 500 mg PO WEEKLY Qty: 9 0RF Follow-up/Referrals: Vickye Hernandez MD [Primary Care Provider] -
[2025-02-15 14:36] LABS: D Dimer 0.78 ug/mL (<0.48)
[2025-02-15 14:45] LABS: Alanine Aminotransferase 13 U/L (6-50); Albumin Level 3.4 g/dL (3.5-5.1); Alkaline Phosphatase 109 U/L (38-126); Anion Gap 7 mmol/L (4-12); Aspartate Amino Transferase 26 U/L (17-59); Bilirubin,Total 0.5 mg/dL (0.2-1.3); Blood Urea Nitrogen 14 mg/dL (9-20); Calcium 8.6 mg/dL (8.4-10.2); Carbon Dioxide 30 mmol/L (22-30); Chloride 103 mmol/L (98-107); Estimated CRCL calculation 71 ml/min; Estimated Glomerular Filt Rate > 60; Glucose 87 mg/dL (65-110); Magnesium 2.1 mg/dL (1.6-2.3); Potassium 4.1 mmol/L (3.4-5.0); Sodium 140 mmol/L (137-145)
[2025-02-15 14:54] LABS: NT Pro B Type Natriuretic Pept 220 pg/mL (19.9-100)
[2025-02-15] MEDS: CEFEPIME 2 GM/NS 50 ML 2 GM/50 ML BAG IVPB (15:39)
[2025-02-15] MEDS: VANCOMYCIN 1,750 MG/NS 500 ML 1,750 MG/500 ML BAG 250 MG IVPB (16:08)
--- NOTE | 2025-02-15 17:11 | ADMGEN ---
This patient, Kiran Smith, was admitted to [facility] Surg Room 307-01. Patient/family oriented to hospital policies and general routines including ID bracelet, bed and alarms, visiting hours, pain management, procedures, bathroom and other care routines, personal items, smoking policy, room service/diet, and visiting hours. Information on how to activate the Rapid Response Team has been discussed. Patient/Family are encouraged to report perceived risks to care and to ask questions if they do not understand what they are told or what they should do.
[2025-02-15 17:32] LABS: MRSA (PCR) NOT DETECTED (NOT DETECTE)
--- NOTE | 2025-02-15 17:58 | PM.IMHP ---
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 The patient presents here from home via EMS on 02/15 for further evaluation of shortness of breath. He reports onset approximately 1 week ago but has significantly worsened 1 hour prior to arrival to the emergency department. Shortness of breath is accompanied by fatigue, cough. He denies nausea, vomiting, diarrhea, chest pain. Per chart review, the patient arrived with audible rhonchi, wheezing, and was diaphoretic and pale. While in route to the hospital he received a DuoNeb x2. He arrived 97% on 4L nasal cannula. At baseline he wears supplemental O2. Of note, the patient was recently evaluated on 02/09/2025 at [facility]. He was found to have pneumonia and was started on azithromycin and cefdinir. He reports completion/noncompliance with this antibiotic course. The patient also had 2 semi-recent admissions. The 1st from 11/14/24 to 12/04/2024 and 2nd from 01/20/2025 to 01/25/2025. During the lengthy admission from November to December he was diagnosed with Flu A, human metapneumovirus, and urine test was positive for pneumococcal antigen. Imaging showed left lower lobe postobstructive pneumonia which was likely caused by multiple infectious agents per pulmonology. He was treated with cefepime and Levaquin. Patient was referred back to his oncologist for follow-up on a right 1.4 cm nodule seen in the right lower lobe which was suspicious for recurrence of lung cancer. Patient attempted to follow-up with his oncologist on 01/18, however due to appearance he was referred back to the ER for further evaluation due to suspicion for recurrence of pneumonia. He was placed on cefpodoxime and azithromycin. He had an return to the ER 2 days later on 01/20 due to continued shortness of breath. He was then admitted from 01/20 - 01/25. He was found to have recurrence of bilateral/worsening pneumonia and was treated with azithromycin and cefepime and transition to oral Levaquin on 01/23. Now returning today on 02/09 with shortness of breath and imaging showing recurrence of pneumonia. Initial VS at presentation: 97.9? F, HR 97, RR 29, 125/71, and 97% on 4L NC. ED workup showed: No leukocytosis, hemoglobin 13.0, D-dimer elevated, ABG showed a pH of 7.456/O2 61.7/O2 saturation 92.9% on 2L, no significant electrolyte derangements, renal function within normal limits, BNP 220, nasal MRSA negative. CXR showed persistent bilateral airspace disease, left greater than right, consistent with pneumonia. Chest CTA showed a left lower lobe pneumonia which has increased compared to previous study, no PE, tree-in-bud appearance in the left upper lobe and lingula suggestive of post infection changes, trace left pleural effusion, compression fracture in the superior endplate of T12 and L1 most likely acute, healing rib fracture in the right hemothorax. Review of Systems Review of Systems: All systems reviewed & are unremarkable except as noted in HPI and below PMFSH Past Medical History Medical History BMI 21.0-21.9, adult Impaired functional mobility, balance, gait, and endurance Facial droop Bowel perforation Crushing injury leg Hypotension Tibial fracture Absence seizure Vitamin B2 deficiency Vitamin B1 deficiency Cognitive changes Tremor Chronic fatigue Cervicalgia Myopia Vitamin D deficiency Squamous cell carcinoma Lung Tobacco abuse Hemoptysis DJD (degenerative joint disease) GERD (gastroesophageal reflux disease) COPD (chronic obstructive pulmonary disease) Chronic low back pain Ataxia CTS (carpal tunnel syndrome) Vitamin B12 deficiency On alf drug therapy Iron deficiency anemia Hearing loss of both ears Surgical History Surgical History S/P pneumonectomy Previous back surgery x6 Hx of gastric bypass Family History Family History Father Family history of heart disease in male family member before age 55 Family history of cardiovascular disease Hypertension Mother Family history of heart disease in male family member before age 55 Family history of cardiovascular disease Family history of diabetes mellitus in first degree relative Family history of malignant neoplasm of brain Hypertension Social History Social History Smoking packs per day: 2 Smoking cigarettes per day: 40.0 Years smoked: 40 Smoking pack-years: 80.00 Smoking status: Former smoker Second hand tobacco smoke exposure: No Additional smoking assessment comments: pt. doesn't know when he stopped smoking cigarettes Alcohol intake: never Substance use: never Substance use type: marijuana Other substance usage details: Gummies Last use: 11/13/24 Do You Feel Safe in your Home?: Yes Lack of Transportation: No Lack of Food: Never True Current Housing: I Have Housing Concerned About Future Housing: No Difficulty Paying Gas/Electric Bills: No Difficulty Paying for Meds: No Currently Unemployed: No Education: High School Diploma/GED Difficulty w/ Childcare or Family Care: No Living arrangements: with family Occupation/Education: unemployed Gender identity (if verbalized by the patient): Male Spiritual care concerns: No Meds Home Medications and Allergies Home Medications ?Medication ?Instructions ?Recorded ?Confirmed ?Type lidocaine 5 % topical patch 1 patch topical DAILY 08/17/19 02/15/25 History mv-folic acid 200 mcg-D3 300 1 tablet PO DAILY 08/17/19 02/15/25 History unit-K2 20 [id number]#222 tablet (Stages Men's Multi-Vitamin) omeprazole 20 mg capsule,delayed 20 mg PO BID 08/17/19 02/15/25 History release pregabalin 150 mg capsule (Lyrica) 150 mg PO DAILY 05/15/20 02/15/25 History ferrous sulfate 325 mg (65 mg 325 mg PO DAILY 01/28/23 02/15/25 History iron) tablet oxycodone 10 mg/0.5 mL oral 10 mg PO Q4H 10/13/23 02/15/25 History syringe (FOR ORAL USE ONLY) tizanidine 4 mg capsule 4 mg PO TID PRN muscle spasticity 10/13/23 02/15/25 Rx #30 caps aspirin 81 mg tablet,delayed 81 mg PO DAILY 04/26/24 02/15/25 History release (Adult Low Dose Aspirin) vitamin B complex 1 tablet PO DAILY 04/26/24 02/15/25 History midodrine 2.5 mg tablet 2.5 mg PO BID #180 tabs 07/03/24 02/15/25 Rx paroxetine HCl 40 mg tablet See Rx Instructions .Route 07/13/24 02/15/25 Rx .COMPLEX #90 tabs cyanocobalamin (vitamin B-12) See Rx Instructions .Route 09/28/24 02/15/25 Rx 1,000 mcg/mL injection solution .COMPLEX #3 mL syringe with needle 3 mL 25 gauge See Rx Instructions .Route 09/28/24 02/15/25 Rx x 1 (BD Luer-Collin Syringe) .COMPLEX #3 ea trazodone 50 mg tablet 100 mg PO QHS 11/14/24 02/15/25 History Trelegy Ellipta 100 mcg-62.5 1 inh inhalation DAILY #60 ea 12/07/24 02/15/25 Rx mcg-25 mcg powder for inhalation (uktwwoitsmw-[id number]) bupropion HCl 300 mg 24 hr tablet, See Rx Instructions .Route 12/07/24 02/15/25 Rx extended release .COMPLEX #90 tabs levetiracetam 500 mg 1,500 mg (3 x 500 mg) PO QHS #300 01/02/25 02/15/25 Rx tablet,extended release 24 hr tabs albuterol sulfate 1.25 mg/3 mL 1.25 mg (3 mL) inhalation Q4H #75 01/18/25 02/15/25 Rx solution for nebulization mL lorazepam 0.5 mg tablet 0.5 mg PO TID PRN anxiety 01/20/25 02/15/25 History cefdinir 300 mg capsule 300 mg PO Q12H 4 days #8 caps 02/09/25 02/15/25 Rx azithromycin 500 mg tablet 500 mg PO WEEKLY #9 tabs 02/13/25 02/15/25 Rx Allergies Allergy/AdvReac Type Severity Reaction Status Date / Time Penicillins Allergy Unknown Itching Verified 02/01/25 11:00 Vital Signs Vital Signs - 24 hr 02/15/25 13:16 02/15/25 13:22 02/15/25 13:31 Temperature 97.9 F Pulse Rate 97 Respiratory Rate 29 H Blood Pressure 125/71 Pulse Oximetry 97 100 96 Oxygen Delivery Nasal Cannula Nasal Cannula Nasal Cannula Oxygen Flow Rate 4 4 2 02/15/25 13:33 02/15/25 13:34 02/15/25 13:35 Temperature Pulse Rate 98 99 97 Respiratory Rate 21 H 33 H 30 H Blood Pressure 111/74 Pulse Oximetry 95 95 96 Oxygen Delivery Oxygen Flow Rate 02/15/25 13:45 02/15/25 13:46 02/15/25 14:00 Temperature Pulse Rate 94 87 97 Respiratory Rate 29 H 25 H 27 H Blood Pressure 123/73 Pulse Oximetry 95 97 Oxygen Delivery Oxygen Flow Rate 02/15/25 14:01 02/15/25 14:15 02/15/25 14:16 Temperature Pulse Rate 94 96 98 Respiratory Rate 30 H 29 H 29 H Blood Pressure 118/68 118/66 Pulse Oximetry 96 95 Oxygen Delivery Oxygen Flow Rate 02/15/25 14:30 02/15/25 14:31 02/15/25 14:45 Temperature Pulse Rate 97 92 89 Respiratory Rate 29 H 34 H 33 H Blood Pressure 132/71 Pulse Oximetry Oxygen Delivery Oxygen Flow Rate 02/15/25 14:46 02/15/25 15:05 02/15/25 15:15 Temperature Pulse Rate 90 91 92 Respiratory Rate 29 H 18 25 H Blood Pressure 121/70 Pulse Oximetry 96 98 Oxygen Delivery Oxygen Flow Rate 02/15/25 15:30 02/15/25 15:45 02/15/25 16:00 Temperature Pulse Rate 86 101 H 97 Respiratory Rate 28 H 23 H 27 H Blood Pressure Pulse Oximetry 97 Oxygen Delivery Oxygen Flow Rate 02/15/25 16:15 02/15/25 16:30 Temperature Pulse Rate 102 H 96 Respiratory Rate 24 H 24 H Blood Pressure Pulse Oximetry 94 97 Oxygen Delivery Oxygen Flow Rate Exam Const: General: comfortable and no acute distress Other: , male, chronically ill-appearing HENMT: Face/Nose/Sinus: Normal nares present Mouth: Yes moist mucous membranes Eyes: General: appearance normal, both eyes and all related structures Sclera: sclerae normal Pupils: Equal, round and reactive pupils present EOM: EOMs intact bilaterally Resp: Other: Mild dyspnea without accessory muscle use. Significantly diminished lung sounds in the left lower and left mid lung almaguer. Right clear to auscultation. No wheezing. Cardio: Rate: regular rate Rhythm: regular rhythm Other: S1-S2 present without murmur, rub, ectopy GI: Other: Abdomen soft, nondistended, nontender. Normoactive bowel sounds in all quadrants. Skin: General skin exam: normal color and no rashes or lesions noted Wounds: no wounds Neuro: Speech: normal speech Motor exam (neuro): 5/5 motor strength present throughout Sensory Exam: normal sensation Other: A&O x4 Extrem: General: normal to inspection Psych: Mental Status: mental status grossly normal Affect: Sad affect present Other: Good insight and judgment, very pleasant H&P: Results Labs Labs: Short CBC 02/15/25 Range/Units 13:30 WBC 7.9 (4.5-10.0) K/mm3 Hgb 13.0 L (14.0-18.0) g/dL Hct 42.9 (42.0-52.0) % Plt Count 310 (150-375) k/mm3 BMP 02/15/25 13:30 Sodium 140 Potassium 4.1 Chloride 103 Carbon Dioxide 30 BUN 14 Creatinine 0.84 Glucose 87 Calcium 8.6 Liver Function 02/15/25 Range/Units 13:30 Total Bilirubin 0.5 (0.2-1.3) mg/dL AST 26 (17-59) U/L ALT 13 (6-50) U/L Alkaline Phosphatase 109 (38-126) U/L Albumin 3.4 L (3.5-5.1) g/dL Assessment and Plan Assessment and plan (1) Sepsis: Qualifiers: Sepsis acute organ dysfunction status: without acute organ dysfunction Sepsis type: sepsis due to unspecified organism Qualified Code(s): A41.9 - Sepsis, unspecified organism Code(s): A41.9 - Sepsis, unspecified organism Status: Acute Assessment and Plan: - meets SIRS criteria: HR, RR. No leukocytosis. History of hypotension on midodrine, hemodynamically stable. - lactic acid: 0.8 - lactic elevated, procalcitonin added - 30 mL/kg = 1.9 L, 2L bolus ordered - suspected source: Pneumonia - started on cefepime, vancomycin, doxycycline p.o. - blood cultures drawn on 02/15, follow (2) Pneumonia: Qualifiers: Laterality: unspecified laterality Lung location: unspecified part of lung Pneumonia type: due to unspecified organism Qualified Code(s): J18.9 - Pneumonia, unspecified organism Code(s): J18.9 - Pneumonia, unspecified organism Status: Acute Assessment and Plan: - CXR: Persistent bilateral airspace disease, left greater than right, consistent with pneumonia. - Chest CTA: 1. Left lower lobe pneumonia which has increased compared to previous study. 2. No pulmonary embolism. 3. Tree-in-bud appearance in the left upper lobe and lingula suggestive of post infection changes. 4. Trace of left pleural effusion. 5. Compression fracture in the superior endplate of T12 and L1 most likely acute. MRI evaluation advised. 6. 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 - MRSA PCR negative on 02/15 - check viral PCR and sputum culture - previously positive for pneumococcal via urine in November of 2024, repeat - supportive care - chest physiotherapy - continue supplemental O2 to maintain sat greater than 92%, weakness tolerated (3) COPD (chronic obstructive pulmonary disease): Qualifiers: COPD type: unspecified COPD Qualified Code(s): J44.9 - Chronic obstructive pulmonary disease, unspecified Code(s): J44.9 - Chronic obstructive pulmonary disease, unspecified Status: Acute Assessment and Plan: - [facility] - continue home medications - no current physical exam findings were subjective symptoms suggestive of COPD exacerbation, will hold on steroid course (4) Squamous cell carcinoma: Status: Acute Assessment and Plan: - hx of squamous cell carcinoma of the lung, s/p lobectomy - last follow-up with oncologist, Nathalie MANDEL, on 01/18/25. Still needs outpatient PET scan due to possibility of recurrence in the right lower lobe, however unable to do imaging due to active infection previously. (5) Iron deficiency anemia: Qualifiers: Iron deficiency anemia type: unspecified iron deficiency Qualified Code(s): D50.9 - Iron deficiency anemia, unspecified Code(s): D50.9 - Iron deficiency anemia, unspecified Status: Acute Assessment and Plan: - Hgb 13.0, previously 12.3 on 02/09 - Hx: HONG - transfuse if <7 - monitor (6) Hypotension: Qualifiers: Hypotension type: unspecified hypotension type Qualified Code(s): I95.9 - Hypotension, unspecified Code(s): I95.9 - Hypotension, unspecified Status: Acute Assessment and Plan: - chronic, currently 107/61 - continue home medications: Midodrine - monitor (7) Seizure: Code(s): R56.9 - Unspecified convulsions Status: Acute Assessment and Plan: - chronic, absent type - continue home medications: Keppra Plan Patient may request for care coordination to discuss what palliative care and hospice. However, is worried how his would take this information. Would like time to consider before he receives information. He would like to discuss this information privately if he decides to speak with them. Diet: Heart healthy GI Prophylaxis: Not currently indicated DVT Prophylaxis: Lovenox SQ IV fluids: 1.9L bolus Lines/Tubes: Peripheral IV Code Status: full code Quality VTE Prophylaxis VTE prophylaxis: pharmacologic ordered Hospitalist MIPS Advance Care Plan I have confirmed that the patient's Advanced Care Plan is present, code status is documented, or surrogate decision maker is listed in patient medical record.: Yes Medication Reconciliation I have utilized all available resources to obtain, update and review the patients current medications (includes all prescriptions, OTC, herbals, cannabis, and nutritional supplements).: Yes
[2025-02-15] MEDS: LACTATED RINGERS 1,000 ML 999 ML IV CONT ×2 (18:54→20:33)
[2025-02-15] MEDS: ACETAMINOPHEN 325 MG TABLET 650 MG PO (18:56)
[2025-02-15] MEDS: PARoxetine 20 MG TABLET 40 MG PO (18:59)
[2025-02-15 19:52] LABS: Influenza A QL RT-PCR Negative (Negative); Influenza B QL RT-PCR Negative (Negative); RSV RNA, RT-PCR Negative (Negative); SARS-CoV-2 RNA PCR Negative (Negative)
[2025-02-15] MEDS: DOXYCYCLINE HYCLATE 100 MG TABLET PO (20:46)
[2025-02-15] MEDS: guaiFENesin 12 HR 600 MG TABCR PO (20:46)
[2025-02-15] MEDS: traZODone HCL 50 MG TABLET 100 MG PO (20:46)
[2025-02-15] MEDS: oxyCODONE (*CRX) 5 MG/5 ML ORAL SOLN IR 10 MG PO (20:47)
[2025-02-15] MEDS: levETIRAcetam Tablet 250 MG, levETIRAcetam Tablet 500 MG 750 MG PO (22:02)
[2025-02-16] VITALS (8 sets, daily range): BP systolic 107–137; BP diastolic 68–74; PULSE 62–85; RESP 16–18; TEMP 36.3–37.5; O2SAT 94–99; BMI 21.2
[2025-02-16] MEDS: oxyCODONE (*CRX) 5 MG/5 ML ORAL SOLN IR 10 MG PO ×5 (00:05→20:08)
[2025-02-16] MEDS: CEFEPIME 2 GM/NS 50 ML 2 GM/50 ML BAG IVPB ×2 (00:06→08:10)
[2025-02-16 06:13] LABS: Basophils Percent Auto 0.5 % (0.2-1.2); Eosinophils Absolute Auto 0.5 K/mm3 (0-0.3); Eosinophils Percent Auto 7.4 % (0-4.4); Hematocrit 37.6 % (42.0-52.0); Hemoglobin 11.2 g/dL (14.0-18.0); Immature Granulocyte Absolute 0.03 K/mm3 (0.00-0.031); Immature Granulocyte Percent A 0.5 % (0-0.5); Lymphocytes Absolute Auto 1.01 K/mm3 (0.9-3.2); Lymphocytes Percent Auto 16.3 % (18.3-44.2); Mean Corpuscular HGB Conc 29.8 g/dl (32-36); Mean Corpuscular Hemoglobin 24.9 pg (26-34); Mean Corpuscular Volume 83.7 fl (80-100); Mean Platelet Volume 9.3 fl (7.4-10.4); Monocytes Absolute Auto 0.6 K/mm3 (0.1-0.6); Monocytes Percent Auto 9.7 % (2.6-8.5); Neutrophils Absolute Auto 4.1 K/mm3 (1.3-6.7); Neutrophils Percent Auto 65.6 % (45.5-73.1); Platelet Count Result 272 k/mm3 (150-375); Red Blood Count 4.49 M/mm3 (4.6-6.20); White Blood Count 6.2 K/mm3 (4.5-10.0)
[2025-02-16 06:26] LABS: Alanine Aminotransferase 10 U/L (6-50); Albumin Level 2.9 g/dL (3.5-5.1); Alkaline Phosphatase 85 U/L (38-126); Anion Gap 5 mmol/L (4-12); Aspartate Amino Transferase 21 U/L (17-59); Bilirubin,Total 0.2 mg/dL (0.2-1.3); Blood Urea Nitrogen 11 mg/dL (9-20); Calcium 8.2 mg/dL (8.4-10.2); Carbon Dioxide 28 mmol/L (22-30); Chloride 106 mmol/L (98-107); Estimated CRCL calculation 73 ml/min; Estimated Glomerular Filt Rate > 60; Glucose 78 mg/dL (65-110); Potassium 3.6 mmol/L (3.4-5.0); Sodium 139 mmol/L (137-145)
[2025-02-16 06:42] LABS: Crenated RBC 1+; Platelet Estimate Adequate (Adequate); Schistocytes None Seen
[2025-02-16] MEDS: ENOXAPARIN 40 MG/0.4 ML SYRINGE SUB-Q (08:11)
[2025-02-16] MEDS: PARoxetine 20 MG TABLET 40 MG PO (08:11)
[2025-02-16] MEDS: PREGABALIN (*CRX) 75 MG CAPSULE 150 MG PO (08:12)
[2025-02-16] MEDS: LORazepam (*CRX) 0.5 MG TABLET PO ×3 (08:12→22:54)
[2025-02-16] MEDS: VITAMIN B COMPLEX CAPSULE 1 CAP PO (08:12)
[2025-02-16] MEDS: levETIRAcetam Tablet 250 MG, levETIRAcetam Tablet 500 MG 750 MG PO ×2 (08:12→20:06)
[2025-02-16] MEDS: buPROPion HCL XL (24 HR) 150 MG TABCR 300 MG PO (08:12)
[2025-02-16] MEDS: guaiFENesin 12 HR 600 MG TABCR PO (08:12)
[2025-02-16] MEDS: ASPIRIN 81 MG ENTERIC TABLET PO (08:12)
[2025-02-16] MEDS: DOXYCYCLINE HYCLATE 100 MG TABLET PO (08:12)
[2025-02-16] MEDS: MIDODRINE HCL 2.5 MG TABLET PO (08:13)
[2025-02-16] MEDS: PANTOPRAZOLE 40 MG TABLET PO ×2 (08:13→20:06)
[2025-02-16] MEDS: LIDOCAINE 5% PATCH 1 PATCH TOPICAL (08:13)
[2025-02-16] MEDS: FERROUS SULFATE 325 MG TABLET DR BY MOUTH (08:13)
[2025-02-16] MEDS: FLUTICASONE/UMECLIDIN/VILANTER 100-62.5-25 MCG ELLIPTA 1 PUFF INHALATION (09:05)
[2025-02-16] MEDS: VANCOMYCIN 1,250 MG/NS 250 ML 1,250 MG/250 ML BAG 166.67 MG IVPB (10:42)
[2025-02-16 11:58] LABS: Glucose Point of Care 79 mg/dl (65-105)
--- NOTE | 2025-02-16 13:32 | P.CONPL_ITS ---
Assessment and Plan Assessment and plan (1) Pneumonia: Qualifiers: Laterality: unspecified laterality Lung location: unspecified part of lung Pneumonia type: due to unspecified organism Qualified Code(s): J18.9 - Pneumonia, unspecified organism Code(s): J18.9 - Pneumonia, unspecified organism Status: Acute Assessment and Plan: Patient has a history of recurrent left-sided pneumonia. 11/14/2024 through 12/04/2024 he had influenza, human metapneumovirus and a urine antigen positive for pneumococcus with CT scan on 11/24/2024 with nodular and tree-in-bud infiltrates and higher left lung, left lower lobe consolidation.. From 01/18/2025 through 01/25/2025 he had pneumonia with CT scan 01/18/25 with persistent but improved left lower lobe consolidation with tree-in-bud infiltrates in the left upper lobe from 11/24/24 and was treated with cefepime and azithromycin in the hospital and discharged on Levaquin. On 02/09 patient was prescribed cefdinir and azithromycin as an outpatient. CT scan 02/15/2025 demonstrates tree-in-bud infiltrates left upper lobe and lingula no change from 01/18/2025 and consolidation left lower lobe increased from 01/18/2025 and similar appearance from 11/24/2024. MRSA nasal swab negative. COVID, influenza, RSV RT T PCR negative. Plan: Current infiltrates have air bronchograms so I doubt there is not complete collapse from a proximal mucus plug or endobronchial lesion. Will treat patient for pneumonia and will change to meropenem and Levaquin. I will send urine for Legionella, urine for pneumococcal antigen, mycoplasma IgM and respiratory pathogen panel. I will treat aggressively to help him expectorate with guaifenesin 1200 mg p.o. b.i.d., Mucomyst 200 q.6, Vest therapy, Cornet flutter valve. I will check a chest x-ray in the morning. I will check a procalcitonin on 02/17/2025. Discussed with Dr. Miller, will follow with you. (2) COPD (chronic obstructive pulmonary disease): Qualifiers: COPD type: unspecified COPD Qualified Code(s): J44.9 - Chronic obstructive pulmonary disease, unspecified Code(s): J44.9 - Chronic obstructive pulmonary disease, unspecified Status: Acute Assessment and Plan: GOLD grade 2 group E COPD Patient with a 50 pack year tobacco use, quit 11/13/2024. Alpha 1 anti trypsin genotype CM. Alpha 1 anti trypsin level 236, normal. 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 He retired 4-5 years ago. PFTs on 01/20/2021 with a moderately severe obstructive abnormality with an FEV1 of 1.71 L, 50% predicted, ratio 52%, normal lung volumes, moderately decreased DLCO that normalized when corrected for alveolar volume. CT scan of the chest with emphysema on 02/07/2007, 06/27/2021, 02/06/2022, 07/10/2024, and most recently on 11/13/2024 with moderate apical predominant paraseptal emphysema and mild apical predominant centrilobular emphysema. Discharged from hospital on 12/04/2024 on 2 L at rest and 2 L with activity, 2 L at night per home O2 assessment and overnight oximetry. Eosinophil on 11/13/2024 is 33/uL. Echocardiogram 11/21/2024 with LVEF 55-60%, grade 1 diastolic dysfunction, normal right ventricular size and function. Mildly enlarged right atrium. Tricuspid peak gradient 42. 5/1625: Currently patient is in no respiratory distress. He is on his baseline 2 L nasal cannula saturations 97%. He has no wheezing. Plan: I do not believe the patient is having a COPD exacerbation and given his infectious concerns I will not place him on systemic or inhaled steroids at this time. I will place him on DuoNebs q.6 hours. Goal saturation 90-94%, adjust oxygen accordingly. (3) Cancer of right lung: Qualifiers: Lung location: unspecified part of lung Qualified Code(s): C34.91 - Malignant neoplasm of unspecified part of right bronchus or lung Code(s): C34.91 - Malignant neoplasm of unspecified part of right bronchus or lung Status: Acute Assessment and Plan: Squamous cell lung cancer status post right middle lobectomy on 01/23/2020 with negative lymph nodes, tumor 2.8 cm, T1c N0 M0 stage IA. He is followed by Dr. Zelaya and had a CT scan on 07/10/2024 with emphysema and no evidence of malignancy with recommendation to repeat in [address] scan on 01/18/2025 showed an enlarging right middle lobe nodule from 1.4 by 0.9 cm on 11/27/2024 to 1.9 x 1.0 cm on 01/18/2025. I discussed this result with his oncologist Dr. Quinten mcucrdy and the plan was to obtain a PET scan as an outpatient to determine the best biopsy site. The PET scan was scheduled for PET scan but he could not be completed because the patient was too sick. 02/15/25: CT scan of the chest with no change in his right lower lobe nodule at 1.8 x 0.9 cm. 02/16/25: plan for outpatient PET scan to assess extent of disease and guide biopsy. History of Present Illness History of Present Illness Consult date: 02/16/25 Chief complaint: PNA Narrative: 02/16/2025: This is a new pulmonary consult for recurrent pneumonia. 64-year-old with a history of COPD On 2 L nasal cannula 24-7, squamous cell lung cancer status post right middle lobectomy on 01/23/2020 with negative lymph nodes, tumor 2.8 cm, T1c N0 M0 stage IA. Patient has a history of recurrent left-sided pneumonia. 11/14/2024 through 12/04/2024 he had influenza, human metapneumovirus and a urine antigen positive for pneumococcus. From 01/18/2025 through 01/25/2025 he had persistent left lower lobe consolidation with tree-in-bud infiltrates in the left upper lobe with some improvement and was treated with cefepime and azithromycin in the hospital and discharged on Levaquin. CT scan on 01 18 2025 showed an enlarging right middle lobe nodule from 1.4 by 0.9 cm on 11/27/2024 to 1.9 x 1.0 cm on 01/18/2025. I discussed this result with his oncologist Dr. Quinten mccurdy and the plan was to obtain a PET scan as an outpatient to determine the best biopsy site. The PET scan was scheduled for PET scan but he could not be completed because the patient was too sick. The patient was seen on 02/01/2025 by his PCP who said he was improving. The patient concurs that he was improving. On On 02/02/2025 he started develop worsening shortness of breath at rest, dyspnea on exertion, wheezing. One week ago he had a hot flash but did not measure his temperature. last 2 days he has had increased phlegm production which is rosenbaum and brown. 02/15/2025: Patient presented to the emergency room with worsening shortness of breath. Blood pressure was 125/71, pulse set 97, respiratory rate 29, temperature 97.9?. Initially was on 4 L nasal cannula with saturations 97%. he had decreased breath sounds in the left base. He had no wheezing. White blood cell count was 7.9, eosinophils 7.7, creatinine 0.84, D-dimer 0.78, BNP 220, ABG on 2 L 7.46/38/62. CT angiogram of the Chest showed no pulmonary embolism, left lower lobe consolidation with air bronchograms throughout, patchy infiltrates left upper lobe and lingula, unchanged right lower lobe nodule at 1.9 x 1.0 cm. Patient was treated with cefepime, vancomycin and doxycycline. 02/16/2025: currently the patient tells me he feels the same as yesterday. He has a cough but no phlegm. No hemoptysis. Currently is on 2 L nasal cannula with saturations 95%. He is afebrile with a white blood cell count of 6.2. Creatinine 0.81. DATA: 02/15/25: CTA chest PE protocol Ordering provider: Carolina Goel History: 64 years Male with . worsening pneumonia? more O2 requirement . Comparison: January 18, 2025 Technique: CT angiogram chest was performed following timed intravenous injection of contrast. Thin slice axial images and reformatted coronal images were obtained. Three dimensional reformatted images of the chest were also obtained using a [employer] workstation. . Automated exposure control and iterative reconstruction technique were employed. The dose-length product was 391.32 mGy- cm. 100 mL Omnipaque 350 was given IV. Findings: PULMONARY ARTERIES: No pulmonary embolus. VISUALIZED THORACIC INLET: Normal. MEDIASTINUM: Aorta/coronary arteries: Mild atheromatous disease. Heart/other: The heart is not enlarged. Lymph nodes: No mediastinal or hilar adenopathy. Calcified lymph nodes are noted. LUNGS: Pneumonia in the left lower lobe. Tree-in-bud appearance is seen in the left upper lobe and lingula suggestive of post infection changes. No pulmonary nodules or masses. No pneumothorax. Trace of left pleural effusion is seen. VISUALIZED UPPER ABDOMEN: 3.7 x 3.8 cm cyst is seen in the right kidney upper pole. Otherwise, the visualized upper abdomen is normal. MUSCULOSKELETAL: Soft tissues: The superficial soft tissues are normal. Bones: Age appropriate degenerative changes of the spine. Healing fracture in the right fourth and fifth ribs is noted. Compression fracture involving the superior endplate of T12 and L1 is noted. MRI evaluation advised. Spinal stimulator is seen in the midthoracic area. IMPRESSION: 1. Left lower lobe pneumonia which has increased compared to previous study. 2. No pulmonary embolism. 3. Tree-in-bud appearance in the left upper lobe and lingula suggestive of post infection changes. 4. Trace of left pleural effusion. 5. Compression fracture in the superior endplate of T12 and L1 most likely acute. MRI evaluation advised. 6. Healing rib fractures in the right hemithorax. Addendum: There is been no interval change in a 1.8 x 0.9 cm perihilar nodule with lobular margins in the right lower lobe which remains concerning for primary bronchogenic carcinoma and given location. Recommend further evaluation with endo bronchoscopic ultrasound-guided biopsy. Review of Systems 2 Constitutional: Constitutional: Reports no additional constitutional complaints Eyes: Eyes: Reports no additional eye complaints ENT: Reports system reviewed and no additional complaints, except as documented Cardiovascular: Cardiovascular: Reports no additional cardiovascular complaints Respiratory: Respiratory: Reports no additional respiratory complaints Gastrointestinal: Gastrointestinal: Reports no additional gastrointestinal complaints Musculoskeletal: Musculoskeletal: Reports no additional musculoskeletal complaints Neurologic: Reports system reviewed and no additional complaints, except as documented Psychiatric: Psychiatric: Reports no additional psychiatric complaints Endocrine: Endocrine: Reports no additional endocrine complaints Hematologic/Lymphatic: Hematologic/Lymphatic: Reports no additional hematologic/lymphatic complaints Allergic/Immunologic: Allergic/Immunologic: Reports no additional allergic/immunologic complaints [facility] Past Medical History Medical History BMI 21.0-21.9, adult Impaired functional mobility, balance, gait, and endurance Facial droop Bowel perforation Crushing injury leg Hypotension Tibial fracture Absence seizure Vitamin B2 deficiency Vitamin B1 deficiency Cognitive changes Tremor Chronic fatigue Cervicalgia Myopia Vitamin D deficiency Squamous cell carcinoma Lung Tobacco abuse Hemoptysis DJD (degenerative joint disease) GERD (gastroesophageal reflux disease) COPD (chronic obstructive pulmonary disease) Chronic low back pain Ataxia CTS (carpal tunnel syndrome) Vitamin B12 deficiency 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 Iron deficiency anemia Hearing loss of both ears Surgical History Surgical History S/P pneumonectomy Previous back surgery x6 Hx of gastric bypass Family History Family History Father Family history of heart disease in male family member before age 55 Family history of cardiovascular disease Hypertension Mother Family history of heart disease in male family member before age 55 Family history of cardiovascular disease Family history of diabetes mellitus in first degree relative Family history of malignant neoplasm of brain Hypertension Social History Social History Smoking packs per day: 2 Smoking cigarettes per day: 40.0 Years smoked: 40 Smoking pack-years: 80.00 Smoking status: Former smoker Second hand tobacco smoke exposure: No Additional smoking assessment comments: pt. doesn't know when he stopped smoking cigarettes Alcohol intake: never Substance use: never Substance use type: marijuana Other substance usage details: Gummies Last use: 11/13/24 Do You Feel Safe in your Home?: Yes Lack of Transportation: No Lack of Food: Never True Current Housing: I Have Housing Concerned About Future Housing: No Difficulty Paying Gas/Electric Bills: No Difficulty Paying for Meds: No Currently Unemployed: No Education: High School Diploma/GED Difficulty w/ Childcare or Family Care: No Living arrangements: with family Occupation/Education: unemployed Gender identity (if verbalized by the patient): Male Spiritual care concerns: No Meds Home Medications and Allergies Home Medications ?Medication ?Instructions ?Recorded ?Confirmed ?Type lidocaine 5 % topical patch 1 patch topical DAILY 08/17/19 02/15/25 History mv-folic acid 200 mcg-D3 300 1 tablet PO DAILY 08/17/19 02/15/25 History unit-K2 20 [id number]#222 tablet (Stages Men's Multi-Vitamin) omeprazole 20 mg capsule,delayed 20 mg PO BID 08/17/19 02/15/25 History release pregabalin 150 mg capsule (Lyrica) 150 mg PO DAILY 05/15/20 02/15/25 History ferrous sulfate 325 mg (65 mg 325 mg PO DAILY 01/28/23 02/15/25 History iron) tablet oxycodone 10 mg/0.5 mL oral 10 mg PO Q4H 10/13/23 02/15/25 History syringe (FOR ORAL USE ONLY) tizanidine 4 mg capsule 4 mg PO TID PRN muscle spasticity 10/13/23 02/15/25 Rx #30 caps aspirin 81 mg tablet,delayed 81 mg PO DAILY 04/26/24 02/15/25 History release (Adult Low Dose Aspirin) vitamin B complex 1 tablet PO DAILY 04/26/24 02/15/25 History midodrine 2.5 mg tablet 2.5 mg PO BID #180 tabs 07/03/24 02/15/25 Rx paroxetine HCl 40 mg tablet See Rx Instructions .Route 07/13/24 02/15/25 Rx .COMPLEX #90 tabs cyanocobalamin (vitamin B-12) See Rx Instructions .Route 09/28/24 02/15/25 Rx 1,000 mcg/mL injection solution .COMPLEX #3 mL syringe with needle 3 mL 25 gauge See Rx Instructions .Route 09/28/24 02/15/25 Rx x 1 (BD Luer-Collin Syringe) .COMPLEX #3 ea trazodone 50 mg tablet 100 mg PO QHS 11/14/24 02/15/25 History Trelegy Ellipta 100 mcg-62.5 1 inh inhalation DAILY #60 ea 12/07/24 02/15/25 Rx mcg-25 mcg powder for inhalation ([id number]) bupropion HCl 300 mg 24 hr tablet, See Rx Instructions .Route 12/07/24 02/15/25 Rx extended release .COMPLEX #90 tabs levetiracetam 500 mg 1,500 mg (3 x 500 mg) PO QHS #300 01/02/25 02/15/25 Rx tablet,extended release 24 hr tabs albuterol sulfate 1.25 mg/3 mL 1.25 mg (3 mL) inhalation Q4H #75 01/18/25 02/15/25 Rx solution for nebulization mL lorazepam 0.5 mg tablet 0.5 mg PO TID PRN anxiety 01/20/25 02/15/25 History cefdinir 300 mg capsule 300 mg PO Q12H 4 days #8 caps 02/09/25 02/15/25 Rx azithromycin 500 mg tablet 500 mg PO WEEKLY #9 tabs 02/13/25 02/15/25 Rx Allergies Allergy/AdvReac Type Severity Reaction Status Date / Time Penicillins Allergy Unknown Itching Verified 02/01/25 11:00 Vital Signs Vital Signs - 24 hr 02/15/25 13:33 02/15/25 13:34 02/15/25 13:35 Temperature Pulse Rate 98 99 97 Respiratory Rate 21 H 33 H 30 H Blood Pressure 111/74 Pulse Oximetry 95 95 96 Oxygen Delivery Oxygen Flow Rate 02/15/25 13:45 02/15/25 13:46 02/15/25 14:00 Temperature Pulse Rate 94 87 97 Respiratory Rate 29 H 25 H 27 H Blood Pressure 123/73 Pulse Oximetry 95 97 Oxygen Delivery Oxygen Flow Rate 02/15/25 14:01 02/15/25 14:15 02/15/25 14:16 Temperature Pulse Rate 94 96 98 Respiratory Rate 30 H 29 H 29 H Blood Pressure 118/68 118/66 Pulse Oximetry 96 95 Oxygen Delivery Oxygen Flow Rate 02/15/25 14:30 02/15/25 14:31 02/15/25 14:45 Temperature Pulse Rate 97 92 89 Respiratory Rate 29 H 34 H 33 H Blood Pressure 132/71 Pulse Oximetry Oxygen Delivery Oxygen Flow Rate 02/15/25 14:46 02/15/25 15:05 02/15/25 15:15 Temperature Pulse Rate 90 91 92 Respiratory Rate 29 H 18 25 H Blood Pressure 121/70 Pulse Oximetry 96 98 Oxygen Delivery Oxygen Flow Rate 02/15/25 15:30 02/15/25 15:45 02/15/25 16:00 Temperature Pulse Rate 86 101 H 97 Respiratory Rate 28 H 23 H 27 H Blood Pressure Pulse Oximetry 97 Oxygen Delivery Oxygen Flow Rate 02/15/25 16:15 02/15/25 16:30 02/15/25 17:20 Temperature 36.3 C L Pulse Rate 102 H 96 84 Respiratory Rate 24 H 24 H 22 H Blood Pressure 107/61 Pulse Oximetry 94 97 98 Oxygen Delivery Oxygen Flow Rate 02/15/25 20:00 02/15/25 20:36 02/16/25 05:19 Temperature 36.8 C 36.5 C Pulse Rate 79 72 Respiratory Rate 16 16 Blood Pressure 149/78 H 137/74 Pulse Oximetry 96 96 96 Oxygen Delivery Nasal Cannula Oxygen Flow Rate 2 02/16/25 09:05 Temperature Pulse Rate Respiratory Rate Blood Pressure Pulse Oximetry 95 Oxygen Delivery Nasal Cannula Oxygen Flow Rate 2 Exam 2 Const: General: cooperative, healthy appearing and comfortable O rientation/consciousness: oriented to person, oriented to place and oriented to time HENMT: Head: normal to inspection Ears: hearing grossly normal bilaterally Eyes: General: appearance normal, both eyes and all related structures Neck: Neck: normal visual inspection Chest: Chest palpation & inspection: normal inspection of the chest Resp: Effort & Inspection: normal respiratory effort and able to speak in complete sentences Auscultation: no crackles, no rales, no rhonchi, no wheezes and diminished lung sounds Other: Left base Cardio: Jugular venous distension: no JVD GI: Inspection: normal to inspection GI Palp: No abdominal tenderness Skin: General skin exam: normal color Neuro: General: oriented to person, oriented to place and oriented to time Extrem: General: normal to inspection Psych: Appearance: grossly normal Results Laboratory Findings 02/16/25 05:47 02/16/25 05:47 ABG, PT/INR, D-dimer: ABG ABG pH 7.456 (7.350-7.450) H 02/15/25 13:43 ABG pCO2 37.5 mmHg (35.0-45.0) 02/15/25 13:43 ABG pO2 61.7 mmHg (80.0-100.0) L 02/15/25 13:43 ABG O2 Saturation 92.9 % (95.0-100.0) L 02/15/25 13:43 PT/INR, D-dimer D-Dimer 0.78 ug/mL (<0.48) H 02/15/25 13:30 Abnormal lab findings: Abnormal Labs 02/15/25 02/15/25 02/16/25 13:30 13:43 05:47 RBC 4.49 L Hgb 13.0 L 11.2 L Hct 37.6 L MCH 25.0 L 24.9 L MCHC 30.3 L 29.8 L RDW 17.0 H 17.0 H Lymph % (Auto) 17.1 L 16.3 L [place] % (Auto) 9.7 H Eos % (Auto) 7.7 H 7.4 H Eos # (Auto) 0.6 H 0.5 H D-Dimer 0.78 H ABG pH 7.456 H ABG pO2 61.7 L ABG O2 Saturation 92.9 L Calcium 8.2 L NT-Pro-B Natriuret Pep 220 H Total Protein 6.0 L Albumin 3.4 L 2.9 L Diagnostic Findings Additional studies: ITS Impressions Chest X-Ray 02/15/25 14:15 Impression: 1: Persistent bilateral airspace disease, left greater than right, consistent with pneumonia. Chest CTA 02/15/25 15:12 IMPRESSION: 1. Left lower lobe pneumonia which has increased compared to previous study. 2. No pulmonary embolism. 3. Tree-in-bud appearance in the left upper lobe and lingula suggestive of post infection changes. 4. Trace of left pleural effusion. 5. Compression fracture in the superior endplate of T12 and L1 most likely acute. MRI evaluation advised. 6. Healing rib fractures in the right hemithorax. ADDENDUM: 02/16/25 1252 ADDENDUM: There is been no interval change in a 1.8 x 0.9 cm perihilar nodule with lobular margins in the right lower lobe which remains concerning for primary bronchogenic carcinoma and given location. Recommend further evaluation with endo bronchoscopic ultrasound-guided biopsy.
[2025-02-16] MEDS: TIZANIDINE HCL 4 MG TABLET PO ×2 (13:39→21:25)
--- NOTE | 2025-02-16 14:29 | PM.IMPN ---
Progress Note: A&P Assessment and Plan (1) Sepsis: Qualifiers: Sepsis type: sepsis due to unspecified organism Sepsis acute organ dysfunction status: without acute organ dysfunction Qualified Code(s): A41.9 - Sepsis, unspecified organism Code(s): A41.9 - Sepsis, unspecified organism Status: Acute Assessment and Plan: - meets SIRS criteria: HR, RR. No leukocytosis. History of hypotension on midodrine, hemodynamically stable. pneumonia procalcitonin pending - received IVf - suspected source: Pneumonia - started on cefepime, vancomycin, doxycycline p.o. - blood cultures drawn on 02/15, follow (2) Pneumonia: Qualifiers: Laterality: unspecified laterality Lung location: unspecified part of lung Pneumonia type: due to unspecified organism Qualified Code(s): J18.9 - Pneumonia, unspecified organism Code(s): J18.9 - Pneumonia, unspecified organism Status: Acute Assessment and Plan: - CXR: Persistent bilateral airspace disease, left greater than right, consistent with pneumonia. - Chest CTA: 1. Left lower lobe pneumonia which has increased compared to previous study. 2. No pulmonary embolism. 3. Tree-in-bud appearance in the left upper lobe and lingula suggestive of post infection changes. 4. Trace of left pleural effusion. 5. Compression fracture in the superior endplate of T12 and L1 most likely acute. MRI evaluation advised. 6. 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 - MRSA PCR negative on 02/15 - will faollow viral PCR and sputum culture - previously positive for pneumococcal via urine in November of 2024, repeat - supportive care - chest physiotherapy - continue supplemental O2 to maintain sat greater than 92%, weakness tolerated pulmonary team on board (3) COPD (chronic obstructive pulmonary disease): Qualifiers: COPD type: unspecified COPD Qualified Code(s): J44.9 - Chronic obstructive pulmonary disease, unspecified Code(s): J44.9 - Chronic obstructive pulmonary disease, unspecified Status: Acute Assessment [facility] Plan: [facility] - no current physical exam findings were subjective symptoms suggestive of COPD exacerbation, will hold on steroid course (4) Squamous cell carcinoma: Status: Acute Assessment and Plan: - hx of squamous cell carcinoma of the lung, s/p lobectomy - last follow-up with oncologist, Nathalie MANDEL, on 01/18/25. Still needs outpatient PET scan due to possibility of recurrence in the right lower lobe, however unable to do imaging due to active infection previously. (5) Iron deficiency anemia: Qualifiers: Iron deficiency anemia type: unspecified iron deficiency Qualified Code(s): D50.9 - Iron deficiency anemia, unspecified Code(s): D50.9 - Iron deficiency anemia, unspecified Status: Acute Assessment and Plan: - Hgb 13.0, previously 12.3 on 02/09 - Hx: HONG - transfuse if <7 - monitor (6) Hypotension: Qualifiers: Hypotension type: unspecified hypotension type Qualified Code(s): I95.9 - Hypotension, unspecified Code(s): I95.9 - Hypotension, unspecified Status: Acute Assessment and Plan: - chronic, currently 107/61 - continue home medications: Midodrine - monitor (7) Seizure: Code(s): R56.9 - Unspecified convulsions Status: Acute Assessment and Plan: - chronic, absent type - continue home medications: Keppra Plan Patient may request for care coordination to discuss what palliative care and hospice. However, is worried how his would take this information. Would like time to consider before he receives information. He would like to discuss this information privately if he decides to speak with them. Diet: Heart healthy GI Prophylaxis: Not currently indicated DVT Prophylaxis: Lovenox SQ Lines/Tubes: Peripheral IV Code Status: full code Subjective Date/time seen: 02/16/25 14:29 Interval history: per HPI: 64 y/o M with PMH of absence seizure, 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 The patient presents here from home via EMS on 02/15 for further evaluation of shortness of breath. He reports onset approximately 1 week ago but has significantly worsened 1 hour prior to arrival to the emergency department. Shortness of breath is accompanied by fatigue, cough. He denies nausea, vomiting, diarrhea, chest pain. Per chart review, the patient arrived with audible rhonchi, wheezing, and was diaphoretic and pale. While in route to the hospital he received a DuoNeb x2. He arrived 97% on 4L nasal cannula. At baseline he wears supplemental O2. Of note, the patient was recently evaluated on 02/09/2025 at [facility]. He was found to have pneumonia and was started on azithromycin and cefdinir. He reports completion/noncompliance with this antibiotic course. The patient also had 2 semi-recent admissions. The 1st from 11/14/24 to 12/04/2024 and 2nd from 01/20/2025 to 01/25/2025. During the lengthy admission from November to December he was diagnosed with Flu A, human metapneumovirus, and urine test was positive for pneumococcal antigen. Imaging showed left lower lobe postobstructive pneumonia which was likely caused by multiple infectious agents per pulmonology. He was treated with cefepime and Levaquin. Patient was referred back to his oncologist for follow-up on a right 1.4 cm nodule seen in the right lower lobe which was suspicious for recurrence of lung cancer. Patient attempted to follow-up with his oncologist on 01/18, however due to appearance he was referred back to the ER for further evaluation due to suspicion for recurrence of pneumonia. He was placed on cefpodoxime and azithromycin. He had an return to the ER 2 days later on 01/20 due to continued shortness of breath. He was then admitted from 01/20 - 01/25. He was found to have recurrence of bilateral/worsening pneumonia and was treated with azithromycin and cefepime and transition to oral Levaquin on 01/23. Now returning today on 02/09 with shortness of breath and imaging showing recurrence of pneumonia. Initial VS at presentation: 97.9? F, HR 97, RR 29, 125/71, and 97% on 4L NC. ED workup showed: No leukocytosis, hemoglobin 13.0, D-dimer elevated, ABG showed a pH of 7.456/O2 61.7/O2 saturation 92.9% on 2L, no significant electrolyte derangements, renal function within normal limits, BNP 220, nasal MRSA negative. CXR showed persistent bilateral airspace disease, left greater than right, consistent with pneumonia. Chest CTA showed a left lower lobe pneumonia which has increased compared to previous study, no PE, tree-in-bud appearance in the left upper lobe and lingula suggestive of post infection changes, trace left pleural effusion, compression fracture in the superior endplate of T12 and L1 most likely acute, healing rib fracture in the right hemothorax. 02/16/25 Patient was seen and examined at bedside. he is feeling slightly better. denies cough or fever. has been having chills at home. CT concerning for pneumonia. WBC WNL. procalcitonin neg. pulmonary team has been consulted. continue with IV Abx. Review of Systems Review of Systems: All systems reviewed & are unremarkable except as noted in HPI and below Exam Narrative: left side significantly diminished. chronically ill appearing. Const: General: comfortable and no acute distress Other: , male, chronically ill-appearing HENMT: Face/Nose/Sinus: Normal nares present Mouth: Yes moist mucous membranes Eyes: General: appearance normal, both eyes and all related structures Sclera: sclerae normal Pupils: Equal, round and reactive pupils present EOM: EOMs intact bilaterally Resp: Other: Mild dyspnea without accessory muscle use. Significantly diminished lung sounds in the left lower and left mid lung [place]. Right clear to auscultation. No wheezing. Cardio: Rate: regular rate Rhythm: regular rhythm Other: S1-S2 present without murmur, rub, ectopy GI: Other: Abdomen soft, nondistended, nontender. Normoactive bowel sounds in all quadrants. Skin: General skin exam: normal color and no rashes or lesions noted Wounds: no wounds Neuro: Cranial nerves: Yes Equal, round and reactive pupils present Speech: normal speech Motor exam (neuro): 5/5 motor strength present throughout Sensory Exam: normal sensation Other: A&O x4 Extrem: General: normal to inspection Psych: Mental Status: mental status grossly normal Affect: Sad affect present Other: Good insight and judgment, very pleasant Objective Data Vital Signs Vital Signs: Vital Signs - 24 hr 02/15/25 14:30 02/15/25 14:31 02/15/25 14:45 Temperature Pulse Rate 97 92 89 Respiratory Rate 29 H 34 H 33 H Blood Pressure 132/71 Pulse Oximetry Oxygen Delivery Oxygen Flow Rate 02/15/25 14:46 02/15/25 15:05 02/15/25 15:15 Temperature Pulse Rate 90 91 92 Respiratory Rate 29 H 18 25 H Blood Pressure 121/70 Pulse Oximetry 96 98 Oxygen Delivery Oxygen Flow Rate 02/15/25 15:30 02/15/25 15:45 02/15/25 16:00 Temperature Pulse Rate 86 101 H 97 Respiratory Rate 28 H 23 H 27 H Blood Pressure Pulse Oximetry 97 Oxygen Delivery Oxygen Flow Rate 02/15/25 16:15 02/15/25 16:30 02/15/25 17:20 Temperature 97.4 F L Pulse Rate 102 H 96 84 Respiratory Rate 24 H 24 H 22 H Blood Pressure 107/61 Pulse Oximetry 94 97 98 Oxygen Delivery Oxygen Flow Rate 02/15/25 20:00 02/15/25 20:36 02/16/25 05:19 Temperature 98.2 F 97.7 F Pulse Rate 79 72 Respiratory Rate 16 16 Blood Pressure 149/78 H 137/74 Pulse Oximetry 96 96 96 Oxygen Delivery Nasal Cannula Oxygen Flow Rate 2 02/16/25 09:05 Temperature Pulse Rate Respiratory Rate Blood Pressure Pulse Oximetry 95 Oxygen Delivery Nasal Cannula Oxygen Flow Rate 2 Intake/Output Intake/Output: Intake & Output 02/13/25 02/14/25 02/15/25 02/16/25 23:59 23:59 23:59 23:59 Intake Total 170 780 Output Total 200 100 Balance -30 680 Meds/Results Medications: Active Medications Generic Name Dose Route Start Last Admin Trade Name Freq PRN Reason Stop Dose Admin Acetaminophen 650 mg 02/15/25 18:32 02/15/25 18:56 Acetaminophen 325 Mg Tablet PO 650 mg Q6H PRN Administration Mild Pain (1-3) or Fever Aspirin 81 mg 02/16/25 09:00 02/16/25 08:12 Aspirin 81 Mg Enteric Tablet PO 81 mg DAILY DANE Administration Benzonatate 100 mg 02/15/25 18:32 Benzonatate 100 Mg Capsule PO TID PRN Cough Bupropion HCl 300 mg 02/16/25 09:00 02/16/25 08:12 Bupropion Hcl Xl (24 Hr) 150 Mg Tabcr PO 300 mg DAILY DANE Administration Doxycycline Hyclate 100 mg 02/15/25 21:00 02/16/25 08:12 Doxycycline Hyclate 100 Mg Tablet PO 02/22/25 20:59 100 mg Q12HR DANE Administration Enoxaparin Sodium 40 mg 02/16/25 09:00 02/16/25 08:11 Enoxaparin 40 Mg/0.4 Ml Syringe SUB-Q 40 mg DAILY DANE Administration Ferrous Sulfate 325 mg 02/16/25 09:00 02/16/25 08:13 Ferrous Sulfate [address] BY MOUTH 325 mg DAILY DANE Administration Fluticasone/Umeclidinium/Vilanterol 1 puff 02/16/25 08:00 02/16/25 09:05 Fluticasone/Umeclidin/Vilanter 100-62.5-25 Mcg Ellipta INHALATION 1 puff DAILYRT DANE Administration Guaifenesin 600 mg 02/15/25 21:00 02/16/25 08:12 Guaifenesin 12 Hr 600 Mg Tabcr PO 600 mg Q12HR DANE Administration Cefepime HCl 2 gm in 50 mls @ 100 mls/hr 02/16/25 00:00 02/16/25 08:10 Maxipime 2 Gm/Ns 50 Ml IVPB 100 mls/hr Q8H DANE Administration Levetiracetam 250 mg/ 750 mg 02/16/25 09:00 02/16/25 08:12 Levetiracetam 500 mg PO 750 mg Q12HR DANE Administration Lidocaine 1 patch 02/16/25 09:00 02/16/25 08:13 Lidocaine 5% Patch TOPICAL 1 patch DAILY DANE Administration Lorazepam 0.5 mg 02/15/25 18:35 02/16/25 13:39 Lorazepam (*Crx) 0.5 Mg Tablet PO 0.5 mg TID PRN Administration anxiety Midodrine 2.5 mg 02/16/25 09:00 02/16/25 08:13 Midodrine Hcl 2.5 Mg Tablet PO 2.5 mg BID DANE Administration Nonformulary 1 each 02/15/25 18:51 Nutritional XX 02/16/25 18:50 Supplement([id number] PRN PRN [id number] [ PROTOCOL Stages Men's Multi- Vitamin Oxycodone HCl 10 mg 02/15/25 21:00 02/16/25 13:36 Oxycodone (*Crx) 5 Mg/5 Ml Oral Soln Ir PO 10 mg Q4HR DANE Administration Pantoprazole Sodium 40 mg 02/16/25 09:00 02/16/25 08:13 Pantoprazole 40 Mg Tablet PO 40 mg Q12HR DANE Administration Paroxetine HCl 40 mg 02/16/25 09:00 02/16/25 08:11 Paroxetine 20 Mg Tablet PO 40 mg DAILY DANE Administration Pregabalin 150 mg 02/16/25 09:00 02/16/25 08:12 Pregabalin (*Crx) 75 Mg Capsule PO 150 mg DAILY DANE Administration Tizanidine HCl 4 mg 02/15/25 18:35 02/16/25 13:39 Tizanidine Hcl 4 Mg Tablet PO 4 mg TID PRN Administration muscle spasticity Trazodone HCl 100 mg 02/15/25 21:00 02/15/25 20:46 Trazodone Hcl 50 Mg Tablet PO 100 mg QHS DANE Administration Vitamin B Complex 1 cap 02/16/25 09:00 02/16/25 08:12 Vitamin B Complex Capsule PO 1 cap DAILY DANE Administration Radiology Results: ITS Impressions Chest X-Ray 02/15/25 14:15 Impression: 1: Persistent bilateral airspace disease, left greater than right, consistent with pneumonia. Chest CTA 02/15/25 15:12 IMPRESSION: 1. Left lower lobe pneumonia which has increased compared to previous study. 2. No pulmonary embolism. 3. Tree-in-bud appearance in the left upper lobe and lingula suggestive of post infection changes. 4. Trace of left pleural effusion. 5. Compression fracture in the superior endplate of T12 and L1 most likely acute. MRI evaluation advised. 6. Healing rib fractures in the right hemithorax. ADDENDUM: 02/16/25 1252 ADDENDUM: There is been no interval change in a 1.8 x 0.9 cm perihilar nodule with lobular margins in the right lower lobe which remains concerning for primary bronchogenic carcinoma and given location. Recommend further evaluation with endo bronchoscopic ultrasound-guided biopsy. Labs Labs: Laboratory Results - last 24 hr 02/15/25 02/15/25 02/15/25 13:30 16:13 19:07 WBC RBC Hgb Hct MCV MCH MCHC RDW Plt Count MPV Immature Gran % (Auto) Neut % (Auto) Lymph % (Auto) [place] % (Auto) Eos % (Auto) Baso % (Auto) Lymph # (Auto) [place] # (Auto) Eos # (Auto) Baso # (Auto) Abs Immat Gran (auto) Absolute Neuts (auto) Absolute Nucleated RBC Band Neutrophils % Nucleated RBC % Platelet Estimate Crenated Cell Schistocytes D-Dimer 0.78 H Sodium 140 Potassium 4.1 Chloride 103 Carbon Dioxide 30 Anion Gap 7 BUN 14 Creatinine 0.84 Estim Creat Clear Calc 71 Estimated GFR > 60 Glucose 87 POC Capillary Glucose Calcium 8.6 Magnesium 2.1 Total Bilirubin 0.5 AST 26 ALT 13 Alkaline Phosphatase 109 NT-Pro-B Natriuret Pep 220 H Total Protein 7.0 Albumin 3.4 L Nasal MRSA (PCR) Not detected Influenza A (RT-PCR) Negative Influenza B (RT-PCR) Negative RSV (RT-PCR) Negative SARS-CoV-2 RNA (RT-PCR) Negative 02/16/25 02/16/25 05:47 11:55 WBC 6.2 RBC 4.49 L Hgb 11.2 L Hct 37.6 L MCV 83.7 MCH 24.9 L MCHC 29.8 L RDW 17.0 H Plt Count 272 MPV 9.3 Immature Gran % (Auto) 0.5 Neut % (Auto) 65.6 Lymph % (Auto) 16.3 L [place] % (Auto) 9.7 H Eos % (Auto) 7.4 H Baso % (Auto) 0.5 Lymph # (Auto) 1.01 [place] # (Auto) 0.6 Eos # (Auto) 0.5 H Baso # (Auto) 0.0 Abs Immat Gran (auto) 0.03 Absolute Neuts (auto) 4.1 Absolute Nucleated RBC 0.000 Band Neutrophils % Not Reportable Nucleated RBC % 0.0 Platelet Estimate Adequate Crenated Cell 1+ Schistocytes None seen D-Dimer Sodium 139 Potassium 3.6 Chloride 106 Carbon Dioxide 28 Anion Gap 5 BUN 11 Creatinine 0.81 Estim Creat Clear Calc 73 Estimated GFR > 60 Glucose 78 POC Capillary Glucose 79 Calcium 8.2 L Magnesium Total Bilirubin 0.2 AST 21 ALT 10 Alkaline Phosphatase 85 NT-Pro-B Natriuret Pep Total Protein 6.0 L Albumin 2.9 L Nasal MRSA (PCR) Influenza A (RT-PCR) Influenza B (RT-PCR) RSV (RT-PCR) SARS-CoV-2 RNA (RT-PCR) Quality VTE Prophylaxis VTE prophylaxis: pharmacologic ordered
[2025-02-16] MEDS: levoFLOXacin 750 MG/D5W 150 ML 750 MG/150 ML BAG 100 MG IVPB (16:54)
[2025-02-16] MEDS: MEROPENEM 1 GM/NS 100 ML 1 GM/100 ML BAG IVPB (18:57)
[2025-02-16] MEDS: traZODone HCL 50 MG TABLET 100 MG PO (20:06)
[2025-02-16] MEDS: ACETYLCYSTEINE 20% INHAL SOLN 800 MG/4 ML VIAL 200 MG INHALATION (20:25)
[2025-02-16] MEDS: IPRATROPIUM 0.5 MG/ALBUTEROL SULFATE 2.5 MG AMPUL.NEB 3 ML INHALATION (20:25)
[2025-02-16] MEDS: guaiFENesin 12 HR 600 MG TABCR 1200 MG PO (20:44)
[2025-02-17] VITALS (14 sets, daily range): BP systolic 90–103; BP diastolic 58–63; PULSE 66–105; RESP 16–26; TEMP 36.1–36.6; O2SAT 90–95
[2025-02-17] MEDS: oxyCODONE (*CRX) 5 MG/5 ML ORAL SOLN IR 10 MG PO ×5 (00:03→21:24)
[2025-02-17] MEDS: ACETAMINOPHEN 325 MG TABLET 650 MG PO ×3 (01:33→21:57)
[2025-02-17] MEDS: TIZANIDINE HCL 4 MG TABLET PO ×3 (01:33→16:14)
[2025-02-17] MEDS: HYDROmorphone HCL INJ (*CRX) 2 MG/ML VIAL 0.5 MG IV PUSH (02:04)
[2025-02-17] MEDS: ACETYLCYSTEINE 20% INHAL SOLN 800 MG/4 ML VIAL 200 MG INHALATION ×4 (02:57→20:38)
[2025-02-17] MEDS: IPRATROPIUM 0.5 MG/ALBUTEROL SULFATE 2.5 MG AMPUL.NEB 3 ML INHALATION ×4 (02:57→20:38)
[2025-02-17] MEDS: MEROPENEM 1 GM/NS 100 ML 1 GM/100 ML BAG IVPB ×3 (03:58→20:28)
[2025-02-17 06:12] LABS: Hemoglobin 10.2 g/dL (14.0-18.0); Mean Corpuscular HGB Conc 29.1 g/dl (32-36); Mean Corpuscular Volume 85.8 fl (80-100); Mean Platelet Volume 9.7 fl (7.4-10.4); Platelet Count Result 252 k/mm3 (150-375); Red Blood Count 4.08 M/mm3 (4.6-6.20); Red Cell Distribution Width 16.8 % (11.5-14.5); White Blood Count 8.4 K/mm3 (4.5-10.0)
[2025-02-17 06:42] LABS: Anion Gap 5 mmol/L (4-12); Blood Urea Nitrogen 13 mg/dL (9-20); Calcium 8.1 mg/dL (8.4-10.2); Carbon Dioxide 27 mmol/L (22-30); Chloride 107 mmol/L (98-107); Estimated CRCL calculation 64 ml/min; Estimated Glomerular Filt Rate > 60; Glucose 93 mg/dL (65-110); Potassium 3.7 mmol/L (3.4-5.0); Sodium 139 mmol/L (137-145)
[2025-02-17 06:55] LABS: Procalcitonin 0.4 ng/mL
[2025-02-17] MEDS: guaiFENesin 12 HR 600 MG TABCR 1200 MG PO ×2 (08:15→20:28)
[2025-02-17] MEDS: VITAMIN B COMPLEX CAPSULE 1 CAP PO (08:15)
[2025-02-17] MEDS: levETIRAcetam Tablet 250 MG, levETIRAcetam Tablet 500 MG 750 MG PO ×2 (08:15→20:28)
[2025-02-17] MEDS: buPROPion HCL XL (24 HR) 150 MG TABCR 300 MG PO (08:15)
[2025-02-17] MEDS: ASPIRIN 81 MG ENTERIC TABLET PO (08:15)
[2025-02-17] MEDS: MIDODRINE HCL 2.5 MG TABLET PO ×2 (08:15→16:14)
[2025-02-17] MEDS: PANTOPRAZOLE 40 MG TABLET PO ×2 (08:16→20:28)
[2025-02-17] MEDS: FERROUS SULFATE 325 MG TABLET DR BY MOUTH (08:16)
[2025-02-17] MEDS: PREGABALIN (*CRX) 75 MG CAPSULE 150 MG PO (08:16)
[2025-02-17] MEDS: PARoxetine 20 MG TABLET 40 MG PO (08:16)
[2025-02-17] MEDS: ENOXAPARIN 40 MG/0.4 ML SYRINGE SUB-Q (08:16)
[2025-02-17] MEDS: LORazepam (*CRX) 0.5 MG TABLET PO ×2 (08:16→16:14)
[2025-02-17] MEDS: OXYCODONE HCL 10 MG PO (09:43)
--- NOTE | 2025-02-17 10:15 | PM.PNPUL ---
Progress Note: A&P Assessment and Plan (1) Pneumonia: Qualifiers: Laterality: unspecified laterality Lung location: unspecified part of lung Pneumonia type: due to unspecified organism Qualified Code(s): J18.9 - Pneumonia, unspecified organism Code(s): J18.9 - Pneumonia, unspecified organism Status: Acute Assessment and Plan: Patient has a history of recurrent left-sided pneumonia. 11/14/2024 through 12/04/2024 he had influenza, human metapneumovirus and a urine antigen positive for pneumococcus with CT scan on 11/24/2024 with nodular and tree-in-bud infiltrates and higher left lung, left lower lobe consolidation.. From 01/18/2025 through 01/25/2025 he had pneumonia with CT scan 01/18/25 with persistent but improved left lower lobe consolidation with tree-in-bud infiltrates in the left upper lobe from 11/24/24 and was treated with cefepime and azithromycin in the hospital and discharged on Levaquin. On 02/09 patient was prescribed cefdinir and azithromycin as an outpatient. CT scan 02/15/2025 demonstrates tree-in-bud infiltrates left upper lobe and lingula no change from 01/18/2025 and consolidation left lower lobe increased from 01/18/2025 and similar appearance from 11/24/2024. MRSA nasal swab negative. COVID, influenza, RSV RT T PCR negative. 02/16/25: Plan: Current infiltrates have air bronchograms so I doubt there is not complete collapse from a proximal mucus plug or endobronchial lesion. Will treat patient for pneumonia and will change to meropenem and Levaquin. I will send urine for Legionella, urine for pneumococcal antigen, mycoplasma IgM and respiratory pathogen panel. I will treat aggressively to help him expectorate with guaifenesin 1200 mg p.o. b.i.d., Mucomyst 200 q.6, Vest therapy, Cornet flutter valve. I will check a procalcitonin on 02/17/2025. 02/17/25: Overall the patient tells me his breathing is the same, he has a small cough with minimal phlegm and no hemoptysis. Says he has dyspnea on exertion but no rest shortness of breath He is afebrile. currently is on 2 L nasal cannula saturations 94%. White blood cell count 8.4, creatinine 0.94. Procalcitonin 0.4. Plan: continue meropenem and Levaquin, both day 2. I was able to send a sputum for Gram stain and culture this morning. I talked to the nurse about collecting the respiratory pathogen panel. Urine Legionella, urine pneumococcal and mycoplasma IgM pending. Continue to help him expectorate with guaifenesin 1200 mg p.o. b.i.d., Mucomyst 200 q.6, Vest therapy, Cornet flutter valve. Discussed with Dr. Miller, will follow with you. (2) COPD (chronic obstructive pulmonary disease): Qualifiers: COPD type: unspecified COPD Qualified Code(s): J44.9 - Chronic obstructive pulmonary disease, unspecified Code(s): J44.9 - Chronic obstructive pulmonary disease, unspecified Status: Acute Assessment and Plan: GOLD grade 2 group E COPD Patient with a 50 pack year tobacco use, quit 11/13/2024. Alpha 1 anti trypsin genotype CM. Alpha 1 anti trypsin level 236, normal. 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 He retired 4-5 years ago. PFTs on 01/20/2021 with a moderately severe obstructive abnormality with an FEV1 of 1.71 L, 50% predicted, ratio 52%, normal lung volumes, moderately decreased DLCO that normalized when corrected for alveolar volume. CT scan of the chest with emphysema on 02/07/2007, 06/27/2021, 02/06/2022, 07/10/2024, and most recently on 11/13/2024 with moderate apical predominant paraseptal emphysema and mild apical predominant centrilobular emphysema. Discharged from hospital on 12/04/2024 on 2 L at rest and 2 L with activity, 2 L at night per home O2 assessment and overnight oximetry. Eosinophil on 11/13/2024 is 33/uL. Echocardiogram 11/21/2024 with LVEF 55-60%, grade 1 diastolic dysfunction, normal right ventricular size and function. Mildly enlarged right atrium. Tricuspid peak gradient 42. 5/16/25: Currently patient is in no respiratory distress. He is on his baseline 2 L nasal cannula saturations 97%. He has no wheezing. Plan: I do not believe the patient is having a COPD exacerbation and given his infectious concerns I will not place him on systemic or inhaled steroids at this time. I will place him on DuoNebs q.6 hours. Goal saturation 90-94%, adjust oxygen accordingly. 02/17/25: he has no wheezes today. Plan: Continue DuoNebs q.6, goal saturation 90-94%. He is on his baseline 2 L with saturations 94%. (3) Cancer of right lung: Qualifiers: Lung location: unspecified part of lung Qualified Code(s): C34.91 - Malignant neoplasm of unspecified part of right bronchus or lung Code(s): C34.91 - Malignant neoplasm of unspecified part of right bronchus or lung Status: Acute Assessment and Plan: Squamous cell lung cancer status post right middle lobectomy on 01/23/2020 with negative lymph nodes, tumor 2.8 cm, T1c N0 M0 stage IA. He is followed by Dr. Zelaya and had a CT scan on 07/10/2024 with emphysema and no evidence of malignancy with recommendation to repeat in [address] scan on 01/18/2025 showed an enlarging right middle lobe nodule from 1.4 by 0.9 cm on 11/27/2024 to 1.9 x 1.0 cm on 01/18/2025. I discussed this result with his oncologist Dr. Quinten mccurdy and the plan was to obtain a PET scan as an outpatient to determine the best biopsy site. The PET scan was scheduled for PET scan but he could not be completed because the patient was too sick. 02/15/25: CT scan of the chest with no change in his right lower lobe nodule at 1.8 x 0.9 cm. 02/16/25: plan for outpatient PET scan to assess extent of disease and guide biopsy. Subjective Date/time seen: 02/17/25 10:15 Interval history: 02/16/2025: This is a new pulmonary consult for recurrent pneumonia. 64-year-old with a history of COPD On 2 L nasal cannula 24-7, squamous cell lung cancer status post right middle lobectomy on 01/23/2020 with negative lymph nodes, tumor 2.8 cm, T1c N0 M0 stage IA. Patient has a history of recurrent left-sided pneumonia. 11/14/2024 through 12/04/2024 he had influenza, human metapneumovirus and a urine antigen positive for pneumococcus. From 01/18/2025 through 01/25/2025 he had persistent left lower lobe consolidation with tree-in-bud infiltrates in the left upper lobe with some improvement and was treated with cefepime and azithromycin in the hospital and discharged on Levaquin. CT scan on 01 18 2025 showed an enlarging right middle lobe nodule from 1.4 by 0.9 cm on 11/27/2024 to 1.9 x 1.0 cm on 01/18/2025. I discussed this result with his oncologist Dr. Quinten mccurdy and the plan was to obtain a PET scan as an outpatient to determine the best biopsy site. The PET scan was scheduled for PET scan but he could not be completed because the patient was too sick. The patient was seen on 02/01/2025 by his PCP who said he was improving. The patient concurs that he was improving. On On 02/02/2025 he started develop worsening shortness of breath at rest, dyspnea on exertion, wheezing. One week ago he had a hot flash but did not measure his temperature. last 2 days he has had increased phlegm production which is rosenbaum and brown. 02/15/2025: Patient presented to the emergency room with worsening shortness of breath. Blood pressure was 125/71, pulse set 97, respiratory rate 29, temperature 97.9?. Initially was on 4 L nasal cannula with saturations 97%. he had decreased breath sounds in the left base. He had no wheezing. White blood cell count was 7.9, eosinophils 7.7, creatinine 0.84, D-dimer 0.78, BNP 220, ABG on 2 L 7.46/38/62. CT angiogram of the Chest showed no pulmonary embolism, left lower lobe consolidation with air bronchograms throughout, patchy infiltrates left upper lobe and lingula, unchanged right lower lobe nodule at 1.9 x 1.0 cm. Patient was treated with cefepime, vancomycin and doxycycline. 02/16/2025: currently the patient tells me he feels the same as yesterday. He has a cough but no phlegm. No hemoptysis. Currently is on 2 L nasal cannula with saturations 95%. He is afebrile with a white blood cell count of 6.2. Creatinine 0.81. 02/17/25: Overall the patient tells me his breathing is the same, he has a small cough with minimal phlegm and no hemoptysis. Says he has dyspnea on exertion but no rest shortness of breath He is afebrile. currently is on 2 L nasal cannula saturations 94%. White blood cell count 8.4, creatinine 0.94. Procalcitonin 0.4. DATA: 02/15/25: CTA chest PE protocol Ordering provider: Carolina Goel History: 64 years Male with . worsening pneumonia? more O2 requirement . Comparison: January 18, 2025 Technique: CT angiogram chest was performed following timed intravenous injection of contrast. Thin slice axial images and reformatted coronal images were obtained. Three dimensional reformatted images of the chest were also obtained using a [employer] workstation. . Automated exposure control and iterative reconstruction technique were employed. The dose-length product was 391.32 mGy-cm. 100 mL Omnipaque 350 was given IV. Findings: PULMONARY ARTERIES: No pulmonary embolus. VISUALIZED THORACIC INLET: Normal. MEDIASTINUM: Aorta/coronary arteries: Mild atheromatous disease. Heart/other: The heart is not enlarged. Lymph nodes: No mediastinal or hilar adenopathy. Calcified lymph nodes are noted. LUNGS: Pneumonia in the left lower lobe. Tree-in-bud appearance is seen in the left upper lobe and lingula suggestive of post infection changes. No pulmonary nodules or masses. No pneumothorax. Trace of left pleural effusion is seen. VISUALIZED UPPER ABDOMEN: 3.7 x 3.8 cm cyst is seen in the right kidney upper pole. Otherwise, the visualized upper abdomen is normal. MUSCULOSKELETAL: Soft tissues: The superficial soft tissues are normal. Bones: Age appropriate degenerative changes of the spine. Healing fracture in the right fourth and fifth ribs is noted. Compression fracture involving the superior endplate of T12 and L1 is noted. MRI evaluation advised. Spinal stimulator is seen in the midthoracic area. IMPRESSION: 1. Left lower lobe pneumonia which has increased compared to previous study. 2. No pulmonary embolism. 3. Tree-in-bud appearance in the left upper lobe and lingula suggestive of post infection changes. 4. Trace of left pleural effusion. 5. Compression fracture in the superior endplate of T12 and L1 most likely acute. MRI evaluation advised. 6. Healing rib fractures in the right hemithorax. Addendum: There is been no interval change in a 1.8 x 0.9 cm perihilar nodule with lobular margins in the right lower lobe which remains concerning for primary bronchogenic carcinoma and given location. Recommend further evaluation with endo bronchoscopic ultrasound-guided biopsy. Review of Systems Constitutional: Constitutional: Reports no additional constitutional complaints Eyes: Eyes: Reports no additional eye complaints ENT: Reports system reviewed and no additional complaints, except as documented Cardiovascular: Cardiovascular: Reports no additional cardiovascular complaints Respiratory: Respiratory: Reports no additional respiratory complaints Gastrointestinal: Gastrointestinal: Reports no additional gastrointestinal complaints Musculoskeletal: Musculoskeletal: Reports no additional musculoskeletal complaints Neurologic: Reports system reviewed and no additional complaints, except as documented Psychiatric: Psychiatric: Reports no additional psychiatric complaints Endocrine: Endocrine: Reports no additional endocrine complaints Hematologic/Lymphatic: Hematologic/Lymphatic: Reports no additional hematologic/lymphatic complaints Allergic/Immunologic: Allergic/Immunologic: Reports no additional allergic/immunologic complaints Exam Const: General: cooperative, healthy appearing and comfortable Orientation/consciousness: oriented to person, oriented to place and oriented to time HENMT: Head: normal to inspection Ears: hearing grossly normal bilaterally Eyes: General: appearance normal, both eyes and all related structures Neck: Neck: normal visual inspection Chest: Chest palpation & inspection: normal inspection of the chest Resp: Effort & Inspection: normal respiratory effort and able to speak in complete sentences Auscultation: no crackles, no rales, no rhonchi, no wheezes and diminished lung sounds Other: Decreased breath sounds at the bases, coarse rhonchi that cleared with expectoration Cardio: Jugular venous distension: no JVD GI: Inspection: normal to inspection Skin: General skin exam: normal color Neuro: General: oriented to person, oriented to place and oriented to time Extrem: General: normal to inspection Psych: Appearance: grossly normal Objective Data Vital Signs Vital Signs: Vital Signs - 24 hr 02/16/25 14:00 02/16/25 19:49 02/16/25 20:00 Temperature 36.3 C L 37.5 C Pulse Rate 62 72 Respiratory Rate 18 16 Blood Pressure 107/68 125/70 Pulse Oximetry 99 95 95 Oxygen Delivery High Flow Nasal Cannula Oxygen Flow Rate 2 02/16/25 20:27 02/16/25 20:29 02/16/25 20:48 Temperature Pulse Rate 80 85 Respiratory Rate 16 16 Blood Pressure Pulse Oximetry 94 Oxygen Delivery Nasal Cannula Oxygen Flow Rate 2 02/17/25 03:04 02/17/25 03:20 02/17/25 06:00 Temperature Pulse Rate 84 87 70 Respiratory Rate 16 16 18 Blood Pressure Pulse Oximetry 95 Oxygen Delivery Oxygen Flow Rate 02/17/25 07:23 02/17/25 07:24 Temperature Pulse Rate 86 Respiratory Rate 16 Blood Pressure Pulse Oximetry 94 Oxygen Delivery Nasal Cannula Oxygen Flow Rate 2 Intake/Output Intake/Output: Intake & Output 02/14/25 02/15/25 02/16/25 02/17/25 23:59 23:59 23:59 23:59 Intake Total 170 1720 440 Output Total 200 550 300 Balance -30 1170 140 Meds/Results Medications: Active Medications Generic Name Dose Route Start Last Admin Trade Name Freq PRN Reason Stop Dose Admin Acetaminophen 650 mg 02/15/25 18:32 02/17/25 01:33 Acetaminophen 325 Mg Tablet PO 650 mg Q6H PRN Administration Mild Pain (1-3) or Fever Acetylcysteine 200 mg 02/16/25 20:00 02/17/25 07:22 Acetylcysteine 20% Inhal Soln 800 Mg/4 Ml Vial INHALATION 200 mg Q6HRT DANE Administration Albuterol/Ipratropium 3 ml 02/16/25 20:00 02/17/25 07:23 Ipratropium 0.5 Mg/Albuterol Sulfate 2.5 Mg Ampul.Neb 3 Ml INHALATION 3 ml Q6HRT DANE Administration Aspirin 81 mg 02/16/25 09:00 02/17/25 08:15 Aspirin 81 Mg Enteric Tablet PO 81 mg DAILY DANE Administration Bupropion HCl 300 mg 02/16/25 09:00 02/17/25 08:15 Bupropion Hcl Xl (24 Hr) 150 Mg Tabcr PO 300 mg DAILY DANE Administration Enoxaparin Sodium 40 mg 02/16/25 09:00 02/17/25 08:16 Enoxaparin 40 Mg/0.4 Ml Syringe SUB-Q 40 mg DAILY DANE Administration Ferrous Sulfate 325 mg 02/16/25 09:00 02/17/25 08:16 Ferrous Sulfate [address] BY MOUTH 325 mg DAILY DANE Administration Guaifenesin 1,200 mg 02/16/25 21:00 02/17/25 08:15 Guaifenesin 12 Hr 600 Mg Tabcr PO 1,200 mg Q12HR DANE Administration Levofloxacin/Dextrose 750 mg in 150 mls @ 100 mls/hr 02/16/25 15:00 02/16/25 16:54 Levaquin 750 Mg/D5w 150 Ml IVPB 100 mls/hr Q24H DANE Administration Meropenem 1 gm in 100 mls @ 200 mls/hr 02/16/25 19:00 02/17/25 03:58 IVPB 200 mls/hr Q8H DANE Administration Levetiracetam 250 mg/ 750 mg 02/16/25 09:00 02/17/25 08:15 Levetiracetam 500 mg PO 750 mg Q12HR DANE Administration Lidocaine 1 patch 02/16/25 09:00 02/17/25 08:22 Lidocaine 5% Patch TOPICAL Not Given DAILY DANE Lorazepam 0.5 mg 02/15/25 18:35 02/17/25 08:16 Lorazepam (*Crx) 0.5 Mg Tablet PO 0.5 mg TID PRN Administration anxiety Midodrine 2.5 mg 02/16/25 09:00 02/17/25 08:15 Midodrine Hcl 2.5 Mg Tablet PO 2.5 mg BID DANE Administration Oxycodone HCl 10 mg 02/17/25 09:00 02/17/25 09:43 Oxycodone Hcl (*Crx) 10 Mg Tab Ir PO 10 mg Q4HR DANE Administration Pantoprazole Sodium 40 mg 02/16/25 09:00 02/17/25 08:16 Pantoprazole 40 Mg Tablet PO 40 mg Q12HR DANE Administration Paroxetine HCl 40 mg 02/16/25 09:00 02/17/25 08:16 Paroxetine 20 Mg Tablet PO 40 mg DAILY DANE Administration Pregabalin 150 mg 02/16/25 09:00 02/17/25 08:16 Pregabalin (*Crx) 75 Mg Capsule PO 150 mg DAILY DANE Administration Tizanidine HCl 4 mg 02/15/25 18:35 02/17/25 08:15 Tizanidine Hcl 4 Mg Tablet PO 4 mg TID PRN Administration muscle spasticity Trazodone HCl 100 mg 02/15/25 21:00 02/16/25 20:06 Trazodone Hcl 50 Mg Tablet PO 100 mg QHS DANE Administration Vitamin B Complex 1 cap 05/16/25 09:00 02/17/25 08:15 Vitamin B Complex Capsule PO 1 cap DAILY DANE Administration Radiology Results: ITS Impressions Chest CTA 02/15/25 15:12 IMPRESSION: 1. Left lower lobe pneumonia which has increased compared to previous study. 2. No pulmonary embolism. 3. Tree-in-bud appearance in the left upper lobe and lingula suggestive of post infection changes. 4. Trace of left pleural effusion. 5. Compression fracture in the superior endplate of T12 and L1 most likely acute. MRI evaluation advised. 6. Healing rib fractures in the right hemithorax. ADDENDUM: 02/16/25 1252 ADDENDUM: There is been no interval change in a 1.8 x 0.9 cm perihilar nodule with lobular margins in the right lower lobe which remains concerning for primary bronchogenic carcinoma and given location. Recommend further evaluation with endo bronchoscopic ultrasound-guided biopsy. Chest X-Ray 02/16/25 15:59 Impression: 1: Progression of bibasilar airspace disease, consistent with pneumonia. Labs Labs: Laboratory Results - last 24 hr 02/16/25 02/17/25 11:55 05:20 WBC 8.4 RBC 4.08 L Hgb 10.2 L Hct 35.0 L MCV 85.8 MCH 25.0 L MCHC 29.1 L RDW 16.8 H Plt Count 252 MPV 9.7 Sodium 139 Potassium 3.7 Chloride 107 Carbon Dioxide 27 Anion Gap 5 BUN 13 Creatinine 0.94 Estim Creat Clear Calc 64 Estimated GFR > 60 Glucose 93 POC Capillary Glucose 79 Calcium 8.1 L Procalcitonin 0.4
--- NOTE | 2025-02-17 12:30 | PM.IMPN ---
Progress Note: A&P Assessment and Plan (1) Sepsis: Qualifiers: Sepsis type: sepsis due to unspecified organism Sepsis acute organ dysfunction status: without acute organ dysfunction Qualified Code(s): A41.9 - Sepsis, unspecified organism Code(s): A41.9 - Sepsis, unspecified organism Status: Acute Assessment and Plan: - meets SIRS criteria: HR, RR. No leukocytosis. History of hypotension on midodrine, hemodynamically stable. pneumonia procalcitonin neg - received IVf continue Meropenem and leaquin. follow sputum culture result, resp PCR. - suspected source: Pneumonia - blood cultures drawn on 02/15, follow (2) Pneumonia: Qualifiers: Laterality: unspecified laterality Lung location: unspecified part of lung Pneumonia type: due to unspecified organism Qualified Code(s): J18.9 - Pneumonia, unspecified organism Code(s): J18.9 - Pneumonia, unspecified organism Status: Acute Assessment and Plan: - CXR: Persistent bilateral airspace disease, left greater than right, consistent with pneumonia. - Chest CTA: 1. Left lower lobe pneumonia which has increased compared to previous study. 2. No pulmonary embolism. 3. Tree-in-bud appearance in the left upper lobe and lingula suggestive of post infection changes. 4. Trace of left pleural effusion. 5. Compression fracture in the superior endplate of T12 and L1 most likely acute. MRI evaluation advised. 6. 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 - MRSA PCR negative on 02/15 - will faollow viral PCR and sputum culture - previously positive for pneumococcal via urine in November of 2024, repeat - supportive care - chest physiotherapy - continue supplemental O2 to maintain sat greater than 92%, weakness tolerated continue Meropenem and leaquin. pulmonary team on board (3) COPD (chronic obstructive pulmonary disease): Qualifiers: COPD type: unspecified COPD Qualified Code(s): J44.9 - Chronic obstructive pulmonary disease, unspecified Code(s): J44.9 - Chronic obstructive pulmonary disease, unspecified Status: Acute Assessment and Plan: - [facility] - continue home medications - no current physical exam findings were subjective symptoms suggestive of COPD exacerbation, will hold on steroid course (4) Squamous cell carcinoma: Status: Acute Assessment and Plan: - hx of squamous cell carcinoma of the lung, s/p lobectomy - last follow-up with oncologist, Nathalie MANDEL, on 01/18/25. Still needs outpatient PET scan due to possibility of recurrence in the right lower lobe, however unable to do imaging due to active infection previously. (5) Iron deficiency anemia: Qualifiers: Iron deficiency anemia type: unspecified iron deficiency Qualified Code(s): D50.9 - Iron deficiency anemia, unspecified Code(s): D50.9 - Iron deficiency anemia, unspecified Status: Acute Assessment and Plan: - Hgb 13.0, previously 12.3 on 02/09 - Hx: HONG - transfuse if <7 - monitor (6) Hypotension: Qualifiers: Hypotension type: unspecified hypotension type Qualified Code(s): I95.9 - Hypotension, unspecified Code(s): I95.9 - Hypotension, unspecified Status: Acute Assessment and Plan: - chronic, currently 107/61 - continue home medications: Midodrine - monitor (7) Seizure: Code(s): R56.9 - Unspecified convulsions Status: Acute Assessment and Plan: - chronic, absent type - continue home medications: Keppra Plan Patient may request for care coordination to discuss what palliative care and hospice. However, is worried how his would take this information. Would like time to consider before he receives information. He would like to discuss this information privately if he decides to speak with them. Diet: Heart healthy GI Prophylaxis: Not currently indicated DVT Prophylaxis: Lovenox SQ Lines/Tubes: Peripheral IV Code Status: full code Subjective Date/time seen: 02/17/25 12:30 Interval history: per HPI: 64 y/o M with PMH of absence seizure, 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 The patient presents here from home via EMS on 02/15 for further evaluation of shortness of breath. He reports onset approximately 1 week ago but has significantly worsened 1 hour prior to arrival to the emergency department. Shortness of breath is accompanied by fatigue, cough. He denies nausea, vomiting, diarrhea, chest pain. Per chart review, the patient arrived with audible rhonchi, wheezing, and was diaphoretic and pale. While in route to the hospital he received a DuoNeb x2. He arrived 97% on 4L nasal cannula. At baseline he wears supplemental O2. Of note, the patient was recently evaluated on 02/09/2025 at [facility]. He was found to have pneumonia and was started on azithromycin and cefdinir. He reports completion/noncompliance with this antibiotic course. The patient also had 2 semi-recent admissions. The 1st from 11/14/24 to 12/04/2024 and 2nd from 01/20/2025 to 01/25/2025. During the lengthy admission from November to December he was diagnosed with Flu A, human metapneumovirus, and urine test was positive for pneumococcal antigen. Imaging showed left lower lobe postobstructive pneumonia which was likely caused by multiple infectious agents per pulmonology. He was treated with cefepime and Levaquin. Patient was referred back to his oncologist for follow-up on a right 1.4 cm nodule seen in the right lower lobe which was suspicious for recurrence of lung cancer. Patient attempted to follow-up with his oncologist on 01/18, however due to appearance he was referred back to the ER for further evaluation due to suspicion for recurrence of pneumonia. He was placed on cefpodoxime and azithromycin. He had an return to the ER 2 days later on 01/20 due to continued shortness of breath. He was then admitted from 01/20 - 01/25. He was found to have recurrence of bilateral/worsening pneumonia and was treated with azithromycin and cefepime and transition to oral Levaquin on 01/23. Now returning today on 02/09 with shortness of breath and imaging showing recurrence of pneumonia. Initial VS at presentation: 97.9? F, HR 97, RR 29, 125/71, and 97% on 4L NC. ED workup showed: No leukocytosis, hemoglobin 13.0, D-dimer elevated, ABG showed a pH of 7.456/O2 61.7/O2 saturation 92.9% on 2L, no significant electrolyte derangements, renal function within normal limits, BNP 220, nasal MRSA negative. CXR showed persistent bilateral airspace disease, left greater than right, consistent with pneumonia. Chest CTA showed a left lower lobe pneumonia which has increased compared to previous study, no PE, tree-in-bud appearance in the left upper lobe and lingula suggestive of post infection changes, trace left pleural effusion, compression fracture in the superior endplate of T12 and L1 most likely acute, healing rib fracture in the right hemothorax. 02/16/25 Patient was seen and examined at bedside. he is feeling slightly better. denies cough or fever. has been having chills at home. CT concerning for pneumonia. WBC WNL. procalcitonin neg. pulmonary team has been consulted. continue with IV Abx. 02/17/25 patient was seen and examined at bedside. feeling the same as yesterday. pulmonary team on board. continue Meropenem and leaquin. follow sputum culture result, resp PCR. Review of Systems Review of Systems: All systems reviewed & are unremarkable except as noted in HPI and below Exam Narrative: left side significantly diminished. chronically ill appearing. Const: General: comfortable and no acute distress Other: , male, chronically ill-appearing HENMT: Face/Nose/Sinus: Normal nares present Mouth: Yes moist mucous membranes Eyes: General: appearance normal, both eyes and all related structures Sclera: sclerae normal Pupils: Equal, round and reactive pupils present EOM: EOMs intact bilaterally Resp: Other: Mild dyspnea without accessory muscle use. Significantly diminished lung sounds in the left lower and left mid lung almaguer. Right clear to auscultation. No wheezing. Cardio: Rate: regular rate Rhythm: regular rhythm Other: S1-S2 present without murmur, rub, ectopy GI: Other: Abdomen soft, nondistended, nontender. Normoactive bowel sounds in all quadrants. Skin: General skin exam: normal color and no rashes or lesions noted Wounds: no wounds Neuro: Cranial nerves: Yes Equal, round and reactive pupils present Speech: normal speech Motor exam (neuro): 5/5 motor strength present throughout Sensory Exam: normal sensation Other: A&O x4 Extrem: General: normal to inspection Psych: Mental Status: mental status grossly normal Affect: Sad affect present Other: Good insight and judgment, very pleasant Objective Data Vital Signs Vital Signs: Vital Signs - 24 hr 02/16/25 14:00 02/16/25 19:49 02/16/25 20:00 Temperature 97.4 F L 99.5 F Pulse Rate 62 72 Respiratory Rate 18 16 Blood Pressure 107/68 125/70 Pulse Oximetry 99 95 95 Oxygen Delivery High Flow Nasal Cannula Oxygen Flow Rate 2 02/16/25 20:27 02/16/25 20:29 02/16/25 20:48 Temperature Pulse Rate 80 85 Respiratory Rate 16 16 Blood Pressure Pulse Oximetry 94 Oxygen Delivery Nasal Cannula Oxygen Flow Rate 2 02/17/25 03:04 02/17/25 03:20 02/17/25 06:00 Temperature Pulse Rate 84 87 70 Respiratory Rate 16 16 18 Blood Pressure Pulse Oximetry 95 Oxygen Delivery Oxygen Flow Rate 02/17/25 07:23 02/17/25 07:24 02/17/25 10:35 Temperature 98 F Pulse Rate 86 66 Respiratory Rate 16 16 Blood Pressure 103/63 Pulse Oximetry 94 95 Oxygen Delivery Nasal Cannula Oxygen Flow Rate 2 Intake/Output Intake/Output: Intake & Output 02/14/25 02/15/25 02/16/25 02/17/25 23:59 23:59 23:59 23:59 Intake Total 170 1720 540 Output Total 200 550 300 Balance -30 1170 240 Meds/Results Medications: Active Medications Generic Name Dose Route Start Last Admin Trade Name Freq PRN Reason Stop Dose Admin Acetaminophen 650 mg 02/15/25 18:32 02/17/25 01:33 Acetaminophen 325 Mg Tablet PO 650 mg Q6H PRN Administration Mild Pain (1-3) or Fever Acetylcysteine 200 mg 02/16/25 20:00 02/17/25 07:22 Acetylcysteine 20% Inhal Soln 800 Mg/4 Ml Vial INHALATION 200 mg Q6HRT DANE Administration Albuterol/Ipratropium 3 ml 02/16/25 20:00 02/17/25 07:23 Ipratropium 0.5 Mg/Albuterol Sulfate 2.5 Mg Ampul.Neb 3 Ml INHALATION 3 ml Q6HRT DANE Administration Aspirin 81 mg 02/16/25 09:00 02/17/25 08:15 Aspirin 81 Mg Enteric Tablet PO 81 mg DAILY DANE Administration Bupropion HCl 300 mg 02/16/25 09:00 02/17/25 08:15 Bupropion Hcl Xl (24 Hr) 150 Mg Tabcr PO 300 mg DAILY DANE Administration Enoxaparin Sodium 40 mg 02/16/25 09:00 02/17/25 08:16 Enoxaparin 40 Mg/0.4 Ml Syringe SUB-Q 40 mg DAILY DANE Administration Ferrous Sulfate 325 mg 02/16/25 09:00 02/17/25 08:16 Ferrous Sulfate [address] BY MOUTH 325 mg DAILY DANE Administration Guaifenesin 1,200 mg 02/16/25 21:00 02/17/25 08:15 Guaifenesin 12 Hr 600 Mg Tabcr PO 1,200 mg Q12HR DANE Administration Levofloxacin/Dextrose 750 mg in 150 mls @ 100 mls/hr 02/16/25 15:00 02/16/25 16:54 Levaquin 750 Mg/D5w 150 Ml IVPB 100 mls/hr Q24H DANE Administration Meropenem 1 gm in 100 mls @ 200 mls/hr 02/16/25 19:00 02/17/25 11:41 IVPB 200 mls/hr Q8H DANE Administration Levetiracetam 250 mg/ 750 mg 02/16/25 09:00 02/17/25 08:15 Levetiracetam 500 mg PO 750 mg Q12HR DANE Administration Lidocaine 1 patch 02/16/25 09:00 02/17/25 08:22 Lidocaine 5% Patch TOPICAL Not Given DAILY [facility] Lorazepam 0.5 mg 02/15/25 18:35 02/17/25 08:16 Lorazepam (*Crx) 0.5 Mg Tablet PO 0.5 mg TID PRN Administration anxiety Midodrine 2.5 mg 02/16/25 09:00 02/17/25 08:15 Midodrine Hcl 2.5 Mg Tablet PO 2.5 mg BID [facility] Administration Oxycodone HCl 10 mg 02/17/25 13:00 Oxycodone (*Crx) 5 Mg/5 Ml Oral Soln Ir PO Q4HR [facility] Pantoprazole Sodium 40 mg 02/16/25 09:00 02/17/25 08:16 Pantoprazole 40 Mg Tablet PO 40 mg Q12HR DANE Administration Paroxetine HCl 40 mg 02/16/25 09:00 02/17/25 08:16 Paroxetine 20 Mg Tablet PO 40 mg DAILY DANE Administration Pregabalin 150 mg 02/16/25 09:00 02/17/25 08:16 Pregabalin (*Crx) 75 Mg Capsule PO 150 mg DAILY DANE Administration Tizanidine HCl 4 mg 02/15/25 18:35 02/17/25 08:15 Tizanidine Hcl 4 Mg Tablet PO 4 mg TID PRN Administration muscle spasticity Trazodone HCl 100 mg 02/15/25 21:00 02/16/25 20:06 Trazodone Hcl 50 Mg Tablet PO 100 mg QHS DANE Administration Vitamin B Complex 1 cap 02/16/25 09:00 02/17/25 08:15 Vitamin B Complex Capsule PO 1 cap DAILY DANE Administration Radiology Results: ITS Impressions Chest CTA 02/15/25 15:12 IMPRESSION: 1. Left lower lobe pneumonia which has increased compared to previous study. 2. No pulmonary embolism. 3. Tree-in-bud appearance in the left upper lobe and lingula suggestive of post infection changes. 4. Trace of left pleural effusion. 5. Compression fracture in the superior endplate of T12 and L1 most likely acute. MRI evaluation advised. 6. Healing rib fractures in the right hemithorax. ADDENDUM: 02/16/25 1252 ADDENDUM: There is been no interval change in a 1.8 x 0.9 cm perihilar nodule with lobular margins in the right lower lobe which remains concerning for primary bronchogenic carcinoma and given location. Recommend further evaluation with endo bronchoscopic ultrasound-guided biopsy. Chest X-Ray 02/16/25 15:59 Impression: 1: Progression of bibasilar airspace disease, consistent with pneumonia. Labs Labs: Laboratory Results - last 24 hr 02/17/25 05:20 WBC 8.4 RBC 4.08 L Hgb 10.2 L Hct 35.0 L MCV 85.8 MCH 25.0 L MCHC 29.1 L RDW 16.8 H Plt Count 252 MPV 9.7 Sodium 139 Potassium 3.7 Chloride 107 Carbon Dioxide 27 Anion Gap 5 BUN 13 Creatinine 0.94 Estim Creat Clear Calc 64 Estimated GFR > 60 Glucose 93 Calcium 8.1 L Procalcitonin 0.4 Quality VTE Prophylaxis VTE prophylaxis: pharmacologic ordered
[2025-02-17] MEDS: levoFLOXacin 750 MG/D5W 150 ML 750 MG/150 ML BAG 100 MG IVPB (15:14)
[2025-02-17] MEDS: traZODone HCL 50 MG TABLET 100 MG PO (21:24)
[2025-02-18] VITALS (13 sets, daily range): BP systolic 98–103; BP diastolic 58–63; PULSE 69–96; RESP 18–24; TEMP 36–36.8; O2SAT 90–97
[2025-02-18] MEDS: oxyCODONE (*CRX) 5 MG/5 ML ORAL SOLN IR 10 MG PO ×6 (00:17→19:59)
[2025-02-18] MEDS: IPRATROPIUM 0.5 MG/ALBUTEROL SULFATE 2.5 MG AMPUL.NEB 3 ML INHALATION ×4 (02:26→20:46)
[2025-02-18] MEDS: ACETYLCYSTEINE 20% INHAL SOLN 800 MG/4 ML VIAL 200 MG INHALATION ×4 (02:26→20:46)
[2025-02-18] MEDS: MEROPENEM 1 GM/NS 100 ML 1 GM/100 ML BAG IVPB ×3 (04:23→18:05)
[2025-02-18 05:46] LABS: Anion Gap 5 mmol/L (4-12); Blood Urea Nitrogen 16 mg/dL (9-20); Carbon Dioxide 29 mmol/L (22-30); Chloride 104 mmol/L (98-107); Estimated CRCL calculation 70 ml/min; Estimated Glomerular Filt Rate > 60; Glucose 89 mg/dL (65-110); Potassium 3.5 mmol/L (3.4-5.0); Sodium 138 mmol/L (137-145)
[2025-02-18 06:04] LABS: Basophils Percent Auto 0.3 % (0.2-1.2); Eosinophils Absolute Auto 0.4 K/mm3 (0-0.3); Hematocrit 35.8 % (42.0-52.0); Hemoglobin 10.8 g/dL (14.0-18.0); Immature Granulocyte Absolute 0.05 K/mm3 (0.00-0.031); Immature Granulocyte Percent A 0.4 % (0-0.5); Lymphocytes Absolute Auto 0.78 K/mm3 (0.9-3.2); Lymphocytes Percent Auto 6.8 % (18.3-44.2); Mean Corpuscular HGB Conc 30.2 g/dl (32-36); Mean Corpuscular Hemoglobin 25.4 pg (26-34); Mean Corpuscular Volume 84.2 fl (80-100); Mean Platelet Volume 9.3 fl (7.4-10.4); Monocytes Absolute Auto 0.7 K/mm3 (0.1-0.6); Monocytes Percent Auto 6.2 % (2.6-8.5); Neutrophils Absolute Auto 9.6 K/mm3 (1.3-6.7); Neutrophils Percent Auto 83.3 % (45.5-73.1); Platelet Count Result 253 k/mm3 (150-375); Red Blood Count 4.25 M/mm3 (4.6-6.20); Red Cell Distribution Width 16.8 % (11.5-14.5); White Blood Count 11.5 K/mm3 (4.5-10.0)
[2025-02-18] MEDS: VITAMIN B COMPLEX CAPSULE 1 CAP PO (09:16)
[2025-02-18] MEDS: guaiFENesin 12 HR 600 MG TABCR 1200 MG PO ×2 (09:16→19:59)
[2025-02-18] MEDS: levETIRAcetam Tablet 250 MG, levETIRAcetam Tablet 500 MG 750 MG PO ×2 (09:16→19:58)
[2025-02-18] MEDS: PREGABALIN (*CRX) 75 MG CAPSULE 150 MG PO (09:16)
[2025-02-18] MEDS: ENOXAPARIN 40 MG/0.4 ML SYRINGE SUB-Q (09:16)
[2025-02-18] MEDS: PARoxetine 20 MG TABLET 40 MG PO (09:16)
[2025-02-18] MEDS: buPROPion HCL XL (24 HR) 150 MG TABCR 300 MG PO (09:16)
[2025-02-18] MEDS: ASPIRIN 81 MG ENTERIC TABLET PO (09:16)
[2025-02-18] MEDS: PANTOPRAZOLE 40 MG TABLET PO ×2 (09:16→19:59)
[2025-02-18] MEDS: FERROUS SULFATE 325 MG TABLET DR BY MOUTH (09:17)
[2025-02-18] MEDS: MIDODRINE HCL 2.5 MG TABLET PO ×2 (09:17→18:01)
[2025-02-18] MEDS: TIZANIDINE HCL 4 MG TABLET PO (09:30)
--- NOTE | 2025-02-18 11:11 | P.PNPL_ITS ---
Progress Note: A&P Assessment and Plan (1) Pneumonia: Qualifiers: Laterality: unspecified laterality Lung location: unspecified part of lung Pneumonia type: due to unspecified organism Qualified Code(s): J18.9 - Pneumonia, unspecified organism Code(s): J18.9 - Pneumonia, unspecified organism Status: Acute Assessment and Plan: Patient has a history of recurrent left-sided pneumonia. 11/14/2024 through 12/04/2024 he had influenza, human metapneumovirus and a urine antigen positive for pneumococcus with CT scan on 11/24/2024 with nodular and tree-in-bud infiltrates and higher left lung, left lower lobe consolidation.. From 01/18/2025 through 01/25/2025 he had pneumonia with CT scan 01/18/25 with persistent but improved left lower lobe consolidation with tree-in-bud infiltrates in the left upper lobe from 11/24/24 and was treated with cefepime and azithromycin in the hospital and discharged on Levaquin. On 02/09 patient was prescribed cefdinir and azithromycin as an outpatient. CT scan 02/15/2025 demonstrates tree-in-bud infiltrates left upper lobe and lingula no change from 01/18/2025 and consolidation left lower lobe increased from 01/18/2025 and similar appearance from 11/24/2024. MRSA nasal swab negative. COVID, influenza, RSV RT T PCR negative. 02/16/25: Plan: Current infiltrates have air bronchograms so I doubt there is not complete collapse from a proximal mucus plug or endobronchial lesion. Will treat patient for pneumonia and will change to meropenem and Levaquin. I will send urine for Legionella, urine for pneumococcal antigen, mycoplasma IgM and respiratory pathogen panel. I will treat aggressively to help him expectorate with guaifenesin 1200 mg p.o. b.i.d., Mucomyst 200 q.6, Vest therapy, Cornet flutter valve. I will check a procalcitonin on 02/17/2025. 02/17/25: Overall the patient tells me his breathing is the same, he has a small cough with minimal phlegm and no hemoptysis. Says he has dyspnea on exertion but no rest shortness of breath He is afebrile. currently is on 2 L nasal cannula saturations 94%. White blood cell count 8.4, creatinine 0.94. Procalcitonin 0.4. Plan: continue meropenem and Levaquin, both day 2. I was able to send a sputum for Gram stain and culture this morning. I talked to the nurse about collecting the respiratory pathogen panel. Urine Legionella, urine pneumococcal and mycoplasma IgM pending. Continue to help him expectorate with guaifenesin 1200 mg p.o. b.i.d., Mucomyst 200 q.6, Vest therapy, Cornet flutter valve. 02/18/2025: Overall the patient tells me he is breathing worse at rest and with activity. He is afebrile. Currently is on 2 L nasal cannula saturations 95%. White blood cell count 11.5, creatinine 0.89. Yesterday he was positive 1.5 L. His weight today is 68.5. To command he is able to cough up to expe ctorations and then he is fatigued. The phlegm is thick and light green to green colored. No blood. Plan: continue meropenem and Levaquin, both day 3. sputum for Gram stain and culture pending. Respiratory pathogen panel, Urine Legionella, urine pneumococcal and mycoplasma IgM pending. Continue to help him expectorate with DuoNebs q.6, guaifenesin 1200 mg p.o. b.i.d., Mucomyst 200 q.6, Vest therapy, Cornet flutter valve. Discussed with Dr. Miller, will follow with you. (2) COPD (chronic obstructive pulmonary disease): Qualifiers: COPD type: unspecified COPD Qualified Code(s): J44.9 - Chronic obstructive pulmonary disease, unspecified Code(s): J44.9 - Chronic obstructive pulmonary disease, unspecified Status: Acute Assessment and Plan: GOLD grade 2 group E COPD Patient with a 50 pack year tobacco use, quit 11/13/2024. Alpha 1 anti trypsin genotype CM. Alpha 1 anti trypsin level 236, normal. 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 He retired 4-5 years ago. PFTs on 01/20/2021 with a moderately severe obstructive abnormality with an FEV1 of 1.71 L, 50% predicted, ratio 52%, normal lung volumes, moderately decreased DLCO that normalized when corrected for alveolar volume. CT scan of the chest with emphysema on 02/07/2007, 06/27/2021, 02/06/2022, 07/10/2024, and most recently on 11/13/2024 with moderate apical predominant paraseptal emphysema and mild apical predominant centrilobular emphysema. Discharged from hospital on 12/04/2024 on 2 L at rest and 2 L with activity, 2 L at night per home O2 assessment and overnight oximetry. Eosinophil on 11/13/2024 is 33/uL. Echocardiogram 11/21/2024 with LVEF 55-60%, grade 1 diastolic dysfunction, normal right ventricular size and function. Mildly enlarged right atrium. Tricuspid peak gradient 42. 02/16/25: Currently patient is in no respiratory distress. He is on his baseline 2 L nasal cannula saturations 97%. He has no wheezing. Plan: I do not believe the patient is having a COPD exacerbation and given his infectious concerns I will not place him on systemic or inhaled steroids at this time. I will place him on DuoNebs q.6 hours. Goal saturation 90-94%, adjust oxygen accordingly. 02/17/25: he has no wheezes today. Plan: Continue DuoNebs q.6, goal saturation 90-94%. He is on his baseline 2 L with saturations 94%. 02/18/25: no wheezes today. Continue DuoNebs q.6, he is at his baseline 2 L nasal cannula with adequate saturations. (3) Cancer of right lung: Qualifiers: Lung location: unspecified part of lung Qualified Code(s): C34.91 - Malignant neoplasm of unspecified part of right bronchus or lung Code(s): C34.91 - Malignant neoplasm of unspecified part of right bronchus or lung Status: Acute Assessment and Plan: Squamous cell lung cancer status post right middle lobectomy on 01/23/2020 with negative lymph nodes, tumor 2.8 cm, T1c N0 M0 stage IA. He is followed by Dr. Zelaya and had a CT scan on 07/10/2024 with emphysema and no evidence of malignancy with recommendation to repeat in [address] scan on 01/18/2025 showed an enlarging right middle lobe nodule from 1.4 by 0.9 cm on 11/27/2024 to 1.9 x 1.0 cm on 01/18/2025. I discussed this result with his oncologist Dr. Quinten mccurdy and the plan was to obtain a PET scan as an outpatient to determine the best biopsy site. The PET scan was scheduled for PET scan but he could not be completed because the patient was too sick. 02/15/25: CT scan of the chest with no change in his right lower lobe nodule at 1.8 x 0.9 cm. 02/16/25: plan for outpatient PET scan to assess extent of disease and guide biopsy. Subjective Date/time seen: 02/18/25 11:11 Interval history: 02/16/2025: This is a new pulmonary consult for recurrent pneumonia. 64-year-old with a history of COPD On 2 L nasal cannula 24-, squamous cell lung cancer status post right middle lobectomy on 01/23/2020 with negative lymph nodes, tumor 2.8 cm, T1c N0 M0 stage IA. Patient has a history of recurrent left-sided pneumonia. 11/14/2024 through 12/04/2024 he had influenza, human metapneumovirus and a urine antigen positive for pneumococcus. From 01/18/2025 through 01/25/2025 he had persistent left lower lobe consolidation with tree-in-bud infiltrates in the left upper lobe with some improvement and was treated with cefepime and azithromycin in the hospital and discharged on Levaquin. CT scan on 01 18 2025 showed an enlarging right middle lobe nodule from 1.4 by 0.9 cm on 11/27/2024 to 1.9 x 1.0 cm on 01/18/2025. I discussed this result with his oncologist Dr. Quinten mccurdy and the plan was to obtain a PET scan as an outpatient to determine the best biopsy site. The PET scan was scheduled for PET scan but he could not be completed because the patient was too sick. The patient was seen on 02/01/2025 by his PCP who said he was improving. The patient concurs that he was improving. On On 02/02/2025 he started develop worsening shortness of breath at rest, dyspnea on exertion, wheezing. One week ago he had a hot flash but did not measure his temperature. last 2 days he has had increased phlegm production which is rosenbaum and brown. 02/15/2025: Patient presented to the emergency room with worsening shortness of breath. Blood pressure was 125/71, pulse set 97, respiratory rate 29, temperature 97.9?. Initially was on 4 L nasal cannula with saturations 97%. he had decreased breath sounds in the left base. He had no wheezing. White blood cell count was 7.9, eosinophils 7.7, creatinine 0.84, D-dimer 0.78, BNP 220, ABG on 2 L 7.46/38/62. CT angiogram of the Chest showed no pulmonary embolism, left lower lobe consolidation with air bronchograms throughout, patchy infilt rates left upper lobe and lingula, unchanged right lower lobe nodule at 1.9 x 1.0 cm. Patient was treated with cefepime, vancomycin and doxycycline. 02/16/2025: currently the patient tells me he feels the same as yesterday. He has a cough but no phlegm. No hemoptysis. Currently is on 2 L nasal cannula with saturations 95%. He is afebrile with a white blood cell count of 6.2. Creatinine 0.81. 02/17/25: Overall the patient tells me his breathing is the same, he has a small cough with minimal phlegm and no hemoptysis. Says he has dyspnea on exertion but no rest shortness of breath He is afebrile. currently is on 2 L nasal cannula saturations 94%. White blood cell count 8.4, creatinine 0.94. Procalcitonin 0.4. 02/18/2025: Overall the patient tells me he is breathing worse at rest and with activity. He is afebrile. Currently is on 2 L nasal cannula saturations 95%. White blood cell count 11.5, creatinine 0.89. Yesterday he was positive 1.5 L. His weight today is 68.5. To command he is able to cough up to expectorations and then he is fatigued. The phlegm is thick and light green to green colored. No blood. DATA: 02/15/25: CTA chest PE protocol Ordering provider: Carolina Goel History: 64 years Male with . worsening pneumonia? more O2 requirement . Comparison: January 18, 2025 Technique: CT angiogram chest was performed following timed intravenous injection of contrast. Thin slice axial images and reformatted coronal images were obtained. Three dimensional reformatted images of the chest were also obtained using a [employer] workstation. . Automated exposure control and iterative reconstruction technique were employed. The dose-length product was 391.32 mGy- cm. 100 mL Omnipaque 350 was given IV. Findings: PULMONARY ARTERIES: No pulmonary embolus. VISUALIZED THORACIC INLET: Normal. MEDIASTINUM: Aorta/coronary arteries: Mild atheromatous disease. Heart/other: The heart is not enlarged. Lymph nodes: No mediastinal or hilar adenopathy. Calcified lymph nodes are noted. LUNGS: Pneumonia in the left lower lobe. Tree-in-bud appearance is seen in the left upper lobe and lingula suggestive of post infection changes. No pulmonary nodules or masses. No pneumothorax. Trace of left pleural effusion is seen. VISUALIZED UPPER ABDOMEN: 3.7 x 3.8 cm cyst is seen in the right kidney upper pole. Otherwise, the visualized upper abdomen is normal. MUSCULOSKELETAL: Soft tissues: The superficial soft tissues are normal. Bones: Age appropriate degenerative changes of the spine. Healing fracture in the right fourth and fifth ribs is noted. Compression fracture involving the superior endplate of T12 and L1 is noted. MRI evaluation advised. Spinal stimulator is seen in the midthoracic area. IMPRESSION: 1. Left lower lobe pneumonia which has increased compared to previous study. 2. No pulmonary embolism. 3. Tree-in-bud appearance in the left upper lobe and lingula suggestive of post infection changes. 4. Trace of left pleural effusion. 5. Compression fracture in the superior endplate of T12 and L1 most likely acute. MRI evaluation advised. 6. Healing rib fractures in the right hemithorax. Addendum: There is been no interval change in a 1.8 x 0.9 cm perihilar nodule with lobular margins in the right lower lobe which remains concerning for primary bronchogenic carcinoma and given location. Recommend further evaluation with endo bronchoscopic ultrasound-guided biopsy. Review of Systems Constitutional: Constitutional: Reports no additional constitutional complaints Eyes: Eyes: Reports no additional eye complaints ENT: Reports system reviewed and no additional complaints, except as documented Cardiovascular: Cardiovascular: Reports no additional cardiovascular complaints Respiratory: Respiratory: Reports no additional respiratory complaints Gastrointestinal: Gastrointestinal: Reports no additional gastrointestinal complaints Musculoskeletal: Musculoskeletal: Reports no additional musculoskeletal complaints Neurologic: Reports system reviewed and no additional complaints, except as documented Psychiatric: Psychiatric: Reports no additional psychiatric complaints Endocrine: Endocrine: Reports no additional endocrine complaints Hematologic/Lymphatic: Hematologic/Lymphatic: Reports no additional hematologic/lymphatic complaints Allergic/Immunologic: Allergic/Immunologic: Reports no additional allergic/immunologic complaints Exam Const: General: cooperative, healthy appearing and comfortable Orientation/consciousness: oriented to person, oriented to place and oriented to time HENMT: Head: normal to inspection Ears: hearing grossly normal bilaterally Eyes: General: appearance normal, both eyes and all related structures Neck: Neck: normal visual inspection Chest: Chest palpation & inspection: normal inspection of the chest Resp: Effort & Inspection: normal respiratory effort and able to speak in complete sentences Auscultation: no crackles, no rales, no rhonchi, no wheezes and diminished lung sounds Other: Decreased breath sounds at the bases, coarse rhonchi that improved with expectoration Cardio: Jugular venous distension: no JVD GI: Inspection: normal to inspection Skin: General skin exam: normal color Neuro: General: oriented to person, oriented to place and oriented to time Extrem: General: normal to inspection Psych: Appearance: grossly normal Objective Data Vital Signs Vital Signs: Vital Signs - 24 hr 02/17/25 13:36 02/17/25 13:43 02/17/25 15:33 Temperature 36.1 C L Pulse Rate 84 84 88 Respiratory Rate 16 16 20 Blood Pressure 95/58 L Pulse Oximetry 91 Oxygen Delivery Oxygen Flow Rate 02/17/25 20:00 02/17/25 20:00 02/17/25 20:39 Temperature 36.3 C L Pulse Rate 105 H 71 Respiratory Rate 26 H 20 Blood Pressure 90/60 L Pulse Oximetry 92 92 Oxygen Delivery Nasal Cannula Oxygen Flow Rate 2 02/17/25 20:42 02/17/25 21:30 02/18/25 02:27 Temperature Pulse Rate 69 Respiratory Rate 18 Blood Pressure 100/58 L Pulse Oximetry 90 Oxygen Delivery Nasal Cannula Oxygen Flow Rate 2 02/18/25 02:49 02/18/25 06:00 02/18/25 08:28 Temperature 36.8 C Pulse Rate 70 77 Respiratory Rate 18 20 Blood Pressure 102/58 L Pulse Oximetry 92 91 Oxygen Delivery Nasal Cannula Oxygen Flow Rate 2 02/18/25 08:28 Temperature Pulse Rate 81 Respiratory Rate 20 Blood Pressure Pulse Oximetry Oxygen Delivery Oxygen Flow Rate Intake/Output Intake/Output: Intake & Output 02/15/25 02/16/25 02/17/25 02/18/25 23:59 23:59 23:59 23:59 Intake Total 170 1870 840 340 Output Total 200 550 300 300 Balance -30 1320 540 40 Meds/Results Medications: Active Medications Generic Name Dose Route Start Last Admin Trade Name Freq PRN Reason Stop Dose Admin Acetaminophen 650 mg 02/15/25 18:32 02/17/25 21:57 Acetaminophen 325 Mg Tablet PO 650 mg Q6H PRN Administration Mild Pain (1-3) or Fever Acetylcysteine 200 mg 02/16/25 20:00 02/18/25 08:27 Acetylcysteine 20% Inhal Soln 800 Mg/4 Ml Vial INHALATION 200 mg Q6HRT DANE Administration Albuterol/Ipratropium 3 ml 02/16/25 20:00 02/18/25 08:27 Ipratropium 0.5 Mg/Albuterol Sulfate 2.5 Mg Ampul.Neb 3 Ml INHALATION 3 ml Q6HRT DANE Administration Aspirin 81 mg 02/16/25 09:00 02/18/25 09:16 Aspirin 81 Mg Enteric Tablet PO 81 mg DAILY DANE Administration Bupropion HCl 300 mg 02/16/25 09:00 02/18/25 09:16 Bupropion Hcl Xl (24 Hr) 150 Mg Tabcr PO 300 mg DAILY DANE Administration Enoxaparin Sodium 40 mg 02/16/25 09:00 02/18/25 09:16 Enoxaparin 40 Mg/0.4 Ml Syringe SUB-Q 40 mg DAILY DANE Administration Ferrous Sulfate 325 mg 02/16/25 09:00 02/18/25 09:17 Ferrous Sulfate [address] BY MOUTH 325 mg DAILY DANE Administration Guaifenesin 1,200 mg 02/16/25 21:00 02/18/25 09:16 Guaifenesin 12 Hr 600 Mg Tabcr PO 1,200 mg Q12HR DANE Administration Levofloxacin/Dextrose 750 mg in 150 mls @ 100 mls/hr 02/16/25 15:00 02/17/25 15:14 Levaquin 750 Mg/D5w 150 Ml IVPB 100 mls/hr Q24H DANE Administration Meropenem 1 gm in 100 mls @ 200 mls/hr 02/16/25 19:00 02/18/25 10:24 IVPB 200 mls/hr Q8H DANE Administration Levetiracetam 250 mg/ 750 mg 02/16/25 09:00 02/18/25 09:16 Levetiracetam 500 mg PO 750 mg Q12HR DANE Administration Lidocaine 1 patch 02/16/25 09:00 02/18/25 09:23 Lidocaine 5% Patch TOPICAL Not Given DAILY DANE Lorazepam 0.5 mg 02/15/25 18:35 02/17/25 16:14 Lorazepam (*Crx) 0.5 Mg Tablet PO 0.5 mg TID PRN Administration anxiety Midodrine 2.5 mg 02/16/25 09:00 02/18/25 09:17 Midodrine Hcl 2.5 Mg Tablet PO 2.5 mg BID DANE Administration Oxycodone HCl 10 mg 02/17/25 13:00 02/18/25 10:24 Oxycodone (*Crx) 5 Mg/5 Ml Oral Soln Ir PO 10 mg Q4HR DANE Administration Pantoprazole Sodium 40 mg 02/16/25 09:00 02/18/25 09:16 Pantoprazole 40 Mg Tablet PO 40 mg Q12HR DANE Administration Paroxetine HCl 40 mg 02/16/25 09:00 02/18/25 09:16 Paroxetine 20 Mg Tablet PO 40 mg DAILY DANE Administration Pregabalin 150 mg 02/16/25 09:00 02/18/25 09:16 Pregabalin (*Crx) 75 Mg Capsule PO 150 mg DAILY DANE Administration Tizanidine HCl 4 mg 02/15/25 18:35 02/18/25 09:30 Tizanidine Hcl 4 Mg Tablet PO 4 mg TID PRN Administration muscle spasticity Trazodone HCl 100 mg 02/15/25 21:00 02/17/25 21:24 Trazodone Hcl 50 Mg Tablet PO 100 mg QHS DANE Administration Vitamin B Complex 1 cap 02/16/25 09:00 02/18/25 09:16 Vitamin B Complex Capsule PO 1 cap DAILY DANE Administration Radiology Results: ITS Impressions Chest CTA 02/15/25 15:12 IMPRESSION: 1. Left lower lobe pneumonia which has increased compared to previous study. 2. No pulmonary embolism. 3. Tree-in-bud appearance in the left upper lobe and lingula suggestive of post infection changes. 4. Trace of left pleural effusion. 5. Compression fracture in the superior endplate of T12 and L1 most likely acute. MRI evaluation advised. 6. Healing rib fractures in the right hemithorax. ADDENDUM: 02/16/25 1252 ADDENDUM: There is been no interval change in a 1.8 x 0.9 cm perihilar nodule with lobular margins in the right lower lobe which remains concerning for primary bronchogenic carcinoma and given location. Recommend further evaluation with endo bronchoscopic ultrasound-guided biopsy. Chest X-Ray 02/16/25 15:59 Impression: 1: Progression of bibasilar airspace disease, consistent with pneumonia. Labs Labs: Laboratory Results - last 24 hr 02/18/25 05:18 WBC 11.5 H RBC 4.25 L Hgb 10.8 L Hct 35.8 L MCV 84.2 MCH 25.4 L MCHC 30.2 L RDW 16.8 H Plt Count 253 MPV 9.3 Immature Gran % (Auto) 0.4 Neut % (Auto) 83.3 H Lymph % (Auto) 6.8 L Ogle % (Auto) 6.2 Eos % (Auto) 3.0 Baso % (Auto) 0.3 Lymph # (Auto) 0.78 L Ogle # (Auto) 0.7 H Eos # (Auto) 0.4 H Baso # (Auto) 0.0 Abs Immat Gran (auto) 0.05 H Absolute Neuts (auto) 9.6 H Absolute Nucleated RBC 0.000 Nucleated RBC % 0.0 Sodium 138 Potassium 3.5 Chloride 104 Carbon Dioxide 29 Anion Gap 5 BUN 16 Creatinine 0.89 Estim Creat Clear Calc 70 Estimated GFR > 60 Glucose 89 Calcium 8.0 L
--- NOTE | 2025-02-18 12:59 | PM.IMPN ---
Progress Note: A&P Assessment and Plan (1) Sepsis: Qualifiers: Sepsis type: sepsis due to unspecified organism Sepsis acute organ dysfunction status: without acute organ dysfunction Qualified Code(s): A41.9 - Sepsis, unspecified organism Code(s): A41.9 - Sepsis, unspecified organism Status: Acute Assessment and Plan: - meets SIRS criteria: HR, RR. No leukocytosis. History of hypotension on midodrine, hemodynamically stable. pneumonia procalcitonin neg - received IVf continue Meropenem and leaquin. follow sputum culture result, resp PCR. - suspected source: Pneumonia - blood cultures drawn on 02/15, follow (2) Pneumonia: Qualifiers: Laterality: unspecified laterality Lung location: unspecified part of lung Pneumonia type: due to unspecified organism Qualified Code(s): J18.9 - Pneumonia, unspecified organism Code(s): J18.9 - Pneumonia, unspecified organism Status: Acute Assessment and Plan: - CXR: Persistent bilateral airspace disease, left greater than right, consistent with pneumonia. - Chest CTA: 1. Left lower lobe pneumonia which has increased compared to previous study. 2. No pulmonary embolism. 3. Tree-in-bud appearance in the left upper lobe and lingula suggestive of post infection changes. 4. Trace of left pleural effusion. 5. Compression fracture in the superior endplate of T12 and L1 most likely acute. MRI evaluation advised. 6. 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 - MRSA PCR negative on 02/15 - will faollow viral PCR and sputum culture - previously positive for pneumococcal via urine in November of 2024, repeat - supportive care - chest physiotherapy - continue supplemental O2 to maintain sat greater than 92%, weakness tolerated continue Meropenem and leaquin. pulmonary team on board (3) COPD (chronic obstructive pulmonary disease): Qualifiers: COPD type: unspecified COPD Qualified Code(s): J44.9 - Chronic obstructive pulmonary disease, unspecified Code(s): J44.9 - Chronic obstructive pulmonary disease, unspecified Status: Acute Assessment and Plan: - [facility] formerly [facility] - continue home medications - no current physical exam findings were subjective symptoms suggestive of COPD exacerbation, will hold on steroid course (4) Squamous cell carcinoma: Status: Acute Assessment and Plan: - hx of squamous cell carcinoma of the lung, s/p lobectomy - last follow-up with oncologist, Nathalie MANDEL, on 01/18/25. Still needs outpatient PET scan due to possibility of recurrence in the right lower lobe, however unable to do imaging due to active infection previously. (5) Iron deficiency anemia: Qualifiers: Iron deficiency anemia type: unspecified iron deficiency Qualified Code(s): D50.9 - Iron deficiency anemia, unspecified Code(s): D50.9 - Iron deficiency anemia, unspecified Status: Acute Assessment and Plan: - Hgb 13.0, previously 12.3 on 02/09 - Hx: HONG - transfuse if <7 - monitor (6) Hypotension: Qualifiers: Hypotension type: unspecified hypotension type Qualified Code(s): I95.9 - Hypotension, unspecified Code(s): I95.9 - Hypotension, unspecified Status: Acute Assessment and Plan: - chronic, currently 107/61 - continue home medications: Midodrine - monitor (7) Seizure: Code(s): R56.9 - Unspecified convulsions Status: Acute Assessment and Plan: - chronic, absent type - continue home medications: Keppra Plan Patient may request for care coordination to discuss what palliative care and hospice. However, is worried how his would take this information. Would like time to consider before he receives information. He would like to discuss this information privately if he decides to speak with them. Diet: Heart healthy GI Prophylaxis: Not currently indicated DVT Prophylaxis: Lovenox SQ Lines/Tubes: Peripheral IV Code Status: full code Subjective Date/time seen: 02/18/25 12:59 Interval history: per HPI: 64 y/o M with PMH of absence seizure, 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 The patient presents here from home via EMS on 02/15 for further evaluation of shortness of breath. He reports onset approximately 1 week ago but has significantly worsened 1 hour prior to arrival to the emergency department. Shortness of breath is accompanied by fatigue, cough. He denies nausea, vomiting, diarrhea, chest pain. Per chart review, the patient arrived with audible rhonchi, wheezing, and was diaphoretic and pale. While in route to the hospital he received a DuoNeb x2. He arrived 97% on 4L nasal cannula. At baseline he wears supplemental O2. Of note, the patient was recently evaluated on 02/09/2025 at [place] [facility]. He was found to have pneumonia and was started on azithromycin and cefdinir. He reports completion/noncompliance with this antibiotic course. The patient also had 2 semi-recent admissions. The 1st from 11/14/24 to 12/04/2024 and 2nd from 01/20/2025 to 01/25/2025. During the lengthy admission from November to December he was diagnosed with Flu A, human metapneumovirus, and urine test was positive for pneumococcal antigen. Imaging showed left lower lobe postobstructive pneumonia which was likely caused by multiple infectious agents per pulmonology. He was treated with cefepime and Levaquin. Patient was referred back to his oncologist for follow-up on a right 1.4 cm nodule seen in the right lower lobe which was suspicious for recurrence of lung cancer. Patient attempted to follow-up with his oncologist on 01/18, however due to appearance he was referred back to the ER for further evaluation due to suspicion for recurrence of pneumonia. He was placed on cefpodoxime and azithromycin. He had an return to the ER 2 days later on 01/20 due to continued shortness of breath. He was then admitted from 01/20 - 01/25. He was found to have recurrence of bilateral/worsening pneumonia and was treated with azithromycin and cefepime and transition to oral Levaquin on 01/23. Now returning today on 02/09 with shortness of breath and imaging showing recurrence of pneumonia. Initial VS at presentation: 97.9? F, HR 97, RR 29, 125/71, and 97% on 4L NC. ED workup showed: No leukocytosis, hemoglobin 13.0, D-dimer elevated, ABG showed a pH of 7.456/O2 61.7/O2 saturation 92.9% on 2L, no significant electrolyte derangements, renal function within normal limits, BNP 220, nasal MRSA negative. CXR showed persistent bilateral airspace disease, left greater than right, consistent with pneumonia. Chest CTA showed a left lower lobe pneumonia which has increased compared to previous study, no PE, tree-in-bud appearance in the left upper lobe and lingula suggestive of post infection changes, trace left pleural effusion, compression fracture in the superior endplate of T12 and L1 most likely acute, healing rib fracture in the right hemothorax. 02/16/25 Patient was seen and examined at bedside. he is feeling slightly better. denies cough or fever. has been having chills at home. CT concerning for pneumonia. WBC WNL. procalcitonin neg. pulmonary team has been consulted. continue with IV Abx. 02/17/25 patient was seen and examined at bedside. feeling the same as yesterday. pulmonary team on board. continue Meropenem and leaquin. follow sputum culture result, resp PCR. 02/18/25 Patient was seen and examined at bedside. he is feeling tired. breathing the same. denies chest pain, abd pain, Nausea vomiting. continue IV Abx. will follow PCr and culture results Review of Systems Review of Systems: All systems reviewed & are unremarkable except as noted in HPI and below Exam Narrative: left side significantly diminished. chronically ill appearing. Const: General: comfortable and no acute distress Other: , male, chronically ill-appearing HENMT: Face/Nose/Sinus: Normal nares present Mouth: Yes moist mucous membranes Eyes: General: appearance normal, both eyes and all related structures Sclera: sclerae normal Pupils: Equal, round and reactive pupils present EOM: EOMs intact bilaterally Resp: Other: Mild dyspnea without accessory muscle use. Significantly diminished lung sounds in the left lower and left mid lung almag[place]. Right clear to auscultation. No wheezing. Cardio: Rate: regular rate Rhythm: regular rhythm Other: S1-S2 present without murmur, rub, ectopy GI: Other: Abdomen soft, nondistended, nontender. Normoactive bowel sounds in all quadrants. Skin: General skin exam: normal color and no rashes or lesions noted Wounds: no wounds Neuro: Cranial nerves: Yes Equal, round and reactive pupils present Speech: normal speech Motor exam (neuro): 5/5 motor strength present throughout Sensory Exam: normal sensation Other: A&O x4 Extrem: General: normal to inspection Psych: Mental Status: mental status grossly normal Affect: Sad affect present Other: Good insight and judgment, very pleasant Objective Data Vital Signs Vital Signs: Vital Signs - 24 hr 02/17/25 13:36 02/17/25 13:43 02/17/25 15:33 Temperature 97 F L Pulse Rate 84 84 88 Respiratory Rate 16 16 20 Blood Pressure 95/58 L Pulse Oximetry 91 Oxygen Delivery Oxygen Flow Rate 02/17/25 20:00 02/17/25 20:00 02/17/25 20:39 Temperature 97.4 F L Pulse Rate 105 H 71 Respiratory Rate 26 H 20 Blood Pressure 90/60 L Pulse Oximetry 92 92 Oxygen Delivery Nasal Cannula Oxygen Flow Rate 2 02/17/25 20:42 02/17/25 21:30 02/18/25 02:27 Temperature Pulse Rate 69 Respiratory Rate 18 Blood Pressure 100/58 L Pulse Oximetry 90 Oxygen Delivery Nasal Cannula Oxygen Flow Rate 2 02/18/25 02:49 02/18/25 06:00 02/18/25 08:00 Temperature 98.2 F Pulse Rate 70 77 Respiratory Rate 18 20 Blood Pressure 102/58 L Pulse Oximetry 92 90 Oxygen Delivery Nasal Cannula Oxygen Flow Rate 2 02/18/25 08:28 02/18/25 08:28 Temperature Pulse Rate 81 Respiratory Rate 20 Blood Pressure Pulse Oximetry 91 Oxygen Delivery Nasal Cannula Oxygen Flow Rate 2 Intake/Output Intake/Output: Intake & Output 02/15/25 02/16/25 02/17/25 02/18/25 23:59 23:59 23:59 23:59 Intake Total 170 1870 840 340 Output Total 200 550 300 300 Balance -30 1320 540 40 Meds/Results Medications: Active Medications Generic Name Dose Route Start Last Admin Trade Name Freq PRN Reason Stop Dose Admin Acetaminophen 650 mg 02/15/25 18:32 02/17/25 21:57 Acetaminophen 325 Mg Tablet PO 650 mg Q6H PRN Administration Mild Pain (1-3) or Fever Acetylcysteine 200 mg 02/16/25 20:00 02/18/25 08:27 Acetylcysteine 20% Inhal Soln 800 Mg/4 Ml Vial INHALATION 200 mg Q6HRT DANE Administration Albuterol/Ipratropium 3 ml 02/16/25 20:00 02/18/25 08:27 Ipratropium 0.5 Mg/Albuterol Sulfate 2.5 Mg Ampul.Neb 3 Ml INHALATION 3 ml Q6HRT DANE Administration Aspirin 81 mg 02/16/25 09:00 02/18/25 09:16 Aspirin 81 Mg Enteric Tablet PO 81 mg DAILY DANE Administration Bupropion HCl 300 mg 02/16/25 09:00 02/18/25 09:16 Bupropion Hcl Xl (24 Hr) 150 Mg Tabcr PO 300 mg DAILY DANE Administration Enoxaparin Sodium 40 mg 02/16/25 09:00 02/18/25 09:16 Enoxaparin 40 Mg/0.4 Ml Syringe SUB-Q 40 mg DAILY DANE Administration Ferrous Sulfate 325 mg 02/16/25 09:00 02/18/25 09:17 Ferrous Sulfate [address] BY MOUTH 325 mg DAILY DANE Administration Guaifenesin 1,200 mg 02/16/25 21:00 02/18/25 09:16 Guaifenesin 12 Hr 600 Mg Tabcr PO 1,200 mg Q12HR DANE Administration Levofloxacin/Dextrose 750 mg in 150 mls @ 100 mls/hr 02/16/25 15:00 02/17/25 15:14 Levaquin 750 Mg/D5w 150 Ml IVPB 100 mls/hr Q24H DANE Administration Meropenem 1 gm in 100 mls @ 200 mls/hr 02/16/25 19:00 02/18/25 10:24 IVPB 200 mls/hr Q8H DANE Administration Levetiracetam 250 mg/ 750 mg 02/16/25 09:00 02/18/25 09:16 Levetiracetam 500 mg PO 750 mg Q12HR DANE Administration Lidocaine 1 patch 02/16/25 09:00 02/18/25 09:23 Lidocaine 5% Patch TOPICAL Not Given DAILY [facility] Lorazepam 0.5 mg 02/15/25 18:35 02/17/25 16:14 Lorazepam (*Crx) 0.5 Mg Tablet PO 0.5 mg TID PRN Administration anxiety Midodrine 2.5 mg 02/16/25 09:00 02/18/25 09:17 Midodrine Hcl 2.5 Mg Tablet PO 2.5 mg BID DANE Administration Oxycodone HCl 10 mg 02/17/25 13:00 02/18/25 10:24 Oxycodone (*Crx) 5 Mg/5 Ml Oral Soln Ir PO 10 mg Q4HR DANE Administration Pantoprazole Sodium 40 mg 02/16/25 09:00 02/18/25 09:16 Pantoprazole 40 Mg Tablet PO 40 mg Q12HR DANE Administration Paroxetine HCl 40 mg 02/16/25 09:00 02/18/25 09:16 Paroxetine 20 Mg Tablet PO 40 mg DAILY DANE Administration Pregabalin 150 mg 02/16/25 09:00 02/18/25 09:16 Pregabalin (*Crx) 75 Mg Capsule PO 150 mg DAILY DANE Administration Tizanidine HCl 4 mg 02/15/25 18:35 02/18/25 09:30 Tizanidine Hcl 4 Mg Tablet PO 4 mg TID PRN Administration muscle spasticity Trazodone HCl 100 mg 02/15/25 21:00 02/17/25 21:24 Trazodone Hcl 50 Mg Tablet PO 100 mg QHS DANE Administration Vitamin B Complex 1 cap 02/16/25 09:00 02/18/25 09:16 Vitamin B Complex Capsule PO 1 cap DAILY DANE Administration Radiology Results: ITS Impressions Chest CTA 02/15/25 15:12 IMPRESSION: 1. Left lower lobe pneumonia which has increased compared to previous study. 2. No pulmonary embolism. 3. Tree-in-bud appearance in the left upper lobe and lingula suggestive of post infection changes. 4. Trace of left pleural effusion. 5. Compression fracture in the superior endplate of T12 and L1 most likely acute. MRI evaluation advised. 6. Healing rib fractures in the right hemithorax. ADDENDUM: 02/16/25 1252 ADDENDUM: There is been no interval change in a 1.8 x 0.9 cm perihilar nodule with lobular margins in the right lower lobe which remains concerning for primary bronchogenic carcinoma and given location. Recommend further evaluation with endo bronchoscopic ultrasound-guided biopsy. Chest X-Ray 02/16/25 15:59 Impression: 1: Progression of bibasilar airspace disease, consistent with pneumonia. Labs Labs: Laboratory Results - last 24 hr 02/18/25 05:18 WBC 11.5 H RBC 4.25 L Hgb 10.8 L Hct 35.8 L MCV 84.2 MCH 25.4 L MCHC 30.2 L RDW 16.8 H Plt Count 253 MPV 9.3 Immature Gran % (Auto) 0.4 Neut % (Auto) 83.3 H Lymph % (Auto) 6.8 L [place] % (Auto) 6.2 Eos % (Auto) 3.0 Baso % (Auto) 0.3 Lymph # (Auto) 0.78 L [place] # (Auto) 0.7 H Eos # (Auto) 0.4 H Baso # (Auto) 0.0 Abs Immat Gran (auto) 0.05 H Absolute Neuts (auto) 9.6 H Absolute Nucleated RBC 0.000 Nucleated RBC % 0.0 Sodium 138 Potassium 3.5 Chloride 104 Carbon Dioxide 29 Anion Gap 5 BUN 16 Creatinine 0.89 Estim Creat Clear Calc 70 Estimated GFR > 60 Glucose 89 Calcium 8.0 L Quality VTE Prophylaxis VTE prophylaxis: pharmacologic ordered
[2025-02-18] MEDS: levoFLOXacin 750 MG/D5W 150 ML 750 MG/150 ML BAG 100 MG IVPB (14:40)
[2025-02-18] MEDS: traZODone HCL 50 MG TABLET 100 MG PO (19:58)
[2025-02-18] MEDS: CYCLOBENZAPRINE HCL 10 MG TABLET PO (21:16)
[2025-02-18] MEDS: ACETAMINOPHEN 325 MG TABLET 650 MG PO (21:16)
[2025-02-19] VITALS (10 sets, daily range): BP systolic 105–117; BP diastolic 64–73; PULSE 72–85; RESP 16–20; TEMP 36.3–36.6; O2SAT 94–97
[2025-02-19] MEDS: oxyCODONE (*CRX) 5 MG/5 ML ORAL SOLN IR 10 MG PO ×6 (00:09→20:20)
[2025-02-19] MEDS: IPRATROPIUM 0.5 MG/ALBUTEROL SULFATE 2.5 MG AMPUL.NEB 3 ML INHALATION ×4 (03:21→22:15)
[2025-02-19] MEDS: ACETYLCYSTEINE 20% INHAL SOLN 800 MG/4 ML VIAL 200 MG INHALATION ×4 (03:22→22:16)
[2025-02-19] MEDS: ACETAMINOPHEN 325 MG TABLET 650 MG PO ×4 (04:20→22:04)
[2025-02-19] MEDS: MEROPENEM 1 GM/NS 100 ML 1 GM/100 ML BAG IVPB ×3 (04:20→18:25)
[2025-02-19] MEDS: CYCLOBENZAPRINE HCL 10 MG TABLET PO ×3 (05:10→22:04)
[2025-02-19 06:27] LABS: Basophils Percent Auto 0.5 % (0.2-1.2); Eosinophils Absolute Auto 0.5 K/mm3 (0-0.3); Eosinophils Percent Auto 5.4 % (0-4.4); Hematocrit 32.7 % (42.0-52.0); Hemoglobin 9.8 g/dL (14.0-18.0); Immature Granulocyte Absolute 0.05 K/mm3 (0.00-0.031); Immature Granulocyte Percent A 0.6 % (0-0.5); Lymphocytes Absolute Auto 0.87 K/mm3 (0.9-3.2); Lymphocytes Percent Auto 9.9 % (18.3-44.2); Mean Corpuscular Hemoglobin 24.8 pg (26-34); Mean Corpuscular Volume 82.8 fl (80-100); Mean Platelet Volume 9.4 fl (7.4-10.4); Monocytes Absolute Auto 0.8 K/mm3 (0.1-0.6); Monocytes Percent Auto 9.1 % (2.6-8.5); Neutrophils Absolute Auto 6.6 K/mm3 (1.3-6.7); Neutrophils Percent Auto 74.5 % (45.5-73.1); Platelet Count Result 250 k/mm3 (150-375); Red Blood Count 3.95 M/mm3 (4.6-6.20); Red Cell Distribution Width 16.8 % (11.5-14.5); White Blood Count 8.8 K/mm3 (4.5-10.0)
[2025-02-19 06:38] LABS: Alanine Aminotransferase 11 U/L (6-50); Albumin Level 2.8 g/dL (3.5-5.1); Alkaline Phosphatase 76 U/L (38-126); Anion Gap 5 mmol/L (4-12); Aspartate Amino Transferase 20 U/L (17-59); Bilirubin,Total 0.2 mg/dL (0.2-1.3); Blood Urea Nitrogen 15 mg/dL (9-20); Calcium 8.2 mg/dL (8.4-10.2); Carbon Dioxide 30 mmol/L (22-30); Chloride 103 mmol/L (98-107); Estimated CRCL calculation 79 ml/min; Estimated Glomerular Filt Rate > 60; Glucose 90 mg/dL (65-110); Potassium 3.5 mmol/L (3.4-5.0); Sodium 138 mmol/L (137-145)
--- NOTE | 2025-02-19 07:31 | P.CDI_ITS ---
CDI Query Clarification Request BMI: 22.6 Nutritional Diagnostic Statement: Please refer to the comprehensive nutrition assessment for further information. If you agree with diagnosis of Moderate protein calorie malnutrition related to inadequate energy intake as evidenced by pt report of poor po intake greater than 1 month, a noted weight loss of -7% x 2 months, and NFPE findings for moderate subcutaneous fat loss (cheeks) and moderate muscle wasting (protestant, clavicle). Please specify severity if known: * Mild * Moderate * Severe * Other/Unknown <Ashleigh Cook RN - Last Filed: 02/19/25 07:32> Provider Comments Agree. moderate protein aliza malnutrition <Cindy Miller MD - Last Filed: 02/19/25 12:17>
[2025-02-19] MEDS: buPROPion HCL XL (24 HR) 150 MG TABCR 300 MG PO (08:48)
[2025-02-19] MEDS: PARoxetine 20 MG TABLET 40 MG PO (08:49)
[2025-02-19] MEDS: MIDODRINE HCL 2.5 MG TABLET PO ×2 (08:49→16:51)
[2025-02-19] MEDS: guaiFENesin 12 HR 600 MG TABCR 1200 MG PO ×2 (08:49→20:20)
[2025-02-19] MEDS: levETIRAcetam Tablet 250 MG, levETIRAcetam Tablet 500 MG 750 MG PO ×2 (08:49→20:20)
[2025-02-19] MEDS: PANTOPRAZOLE 40 MG TABLET PO ×2 (08:49→20:20)
[2025-02-19] MEDS: PREGABALIN (*CRX) 75 MG CAPSULE 150 MG PO (08:50)
[2025-02-19] MEDS: ASPIRIN 81 MG ENTERIC TABLET PO (08:50)
[2025-02-19] MEDS: FERROUS SULFATE 325 MG TABLET DR BY MOUTH (08:50)
[2025-02-19] MEDS: LIDOCAINE 5% PATCH 1 PATCH TOPICAL (08:50)
[2025-02-19] MEDS: VITAMIN B COMPLEX CAPSULE 1 CAP PO (08:52)
--- NOTE | 2025-02-19 11:10 | P.PNPL_ITS ---
Progress Note: A&P Assessment and Plan (1) Pneumonia: Qualifiers: Laterality: unspecified laterality Lung location: unspecified part of lung Pneumonia type: due to unspecified organism Qualified Code(s): J18.9 - Pneumonia, unspecified organism Code(s): J18.9 - Pneumonia, unspecified organism Status: Acute Assessment and Plan: Patient has a history of recurrent left-sided pneumonia. 11/14/2024 through 12/04/2024 he had influenza, human metapneumovirus and a urine antigen positive for pneumococcus with CT scan on 11/24/2024 with nodular and tree-in-bud infiltrates and higher left lung, left lower lobe consolidation.. From 01/18/2025 through 01/25/2025 he had pneumonia with CT scan 01/18/25 with persistent but improved left lower lobe consolidation with tree-in-bud infiltrates in the left upper lobe from 11/24/24 and was treated with cefepime and azithromycin in the hospital and discharged on Levaquin. On 02/09 patient was prescribed cefdinir and azithromycin as an outpatient. CT scan 02/15/2025 demonstrates tree-in-bud infiltrates left upper lobe and lingula no change from 01/18/2025 and consolidation left lower lobe increased from 01/18/2025 and similar appearance from 11/24/2024. MRSA nasal swab negative. COVID, influenza, RSV RT T PCR negative. 02/16/25: Plan: Current infiltrates have air bronchograms so I doubt there is not complete collapse from a proximal mucus plug or endobronchial lesion. Will treat patient for pneumonia and will change to meropenem and Levaquin. I will send urine for Legionella, urine for pneumococcal antigen, mycoplasma IgM and respiratory pathogen panel. I will treat aggressively to help him expectorate with guaifenesin 1200 mg p.o. b.i.d., Mucomyst 200 q.6, Vest therapy, Cornet flutter valve. I will check a procalcitonin on 02/17/2025. 02/17/25: Overall the patient tells me his breathing is the same, he has a small cough with minimal phlegm and no hemoptysis. Says he has dyspnea on exertion but no rest shortness of breath He is afebrile. currently is on 2 L nasal cannula saturations 94%. White blood cell count 8.4, creatinine 0.94. Procalcitonin 0.4. Plan: continue meropenem and Levaquin, both day 2. I was able to send a sputum for Gram stain and culture this morning. I talked to the nurse about collecting the respiratory pathogen panel. Urine Legionella, urine pneumococcal and mycoplasma IgM pending. Continue to help him expectorate with guaifenesin 1200 mg p.o. b.i.d., Mucomyst 200 q.6, Vest therapy, Cornet flutter valve. 02/18/2025: Overall the patient tells me he is breathing worse at rest and with activity. He is afebrile. Currently is on 2 L nasal cannula saturations 95%. White blood cell count 11.5, creatinine 0.89. Yesterday he was positive 1.5 L. His weight today is 68.5. To command he is able to cough up to expe ctorations and then he is fatigued. The phlegm is thick and light green to green colored. No blood. Plan: continue meropenem and Levaquin, both day 3. sputum for Gram stain and culture pending. Respiratory pathogen panel, Urine Legionella, urine pneumococcal and mycoplasma IgM pending. Continue to help him expectorate with DuoNebs q.6, guaifenesin 1200 mg p.o. b.i.d., Mucomyst 200 q.6, Vest therapy, Cornet flutter valve. 02/19/2025. Overall patient tells me he is doing better. Says he is breathing 50% at his normal. He has no rest shortness of breath and his dyspnea on exertion around the room was a little bit better. He is expectorating more phlegm. White blood cell count 8.8, creatinine 0.8. Currently patient is on 2 L nasal cannula saturations 94%. Yesterday he was positive 730 mL and cumulative is positive 2.7 L since admission. His weight today is 69.5. Plan: Slow improvement on meropenem and Levaquin, both day 4. sputum for Gram stain and culture pending. Respiratory pathogen panel, Urine Legionella, urine pneumococcal and mycoplasma IgM pending. Continue to help him expectorate with DuoNebs q.6, guaifenesin 1200 mg p.o. b.i.d., Mucomyst 200 q.6, Vest therapy, Cornet flutter valve. Discussed with Dr. Miller, will follow with you. (2) COPD (chronic obstructive pulmonary disease): Qualifiers: COPD type: unspecified COPD Qualified Code(s): J44.9 - Chronic obstructive pulmonary disease, unspecified Code(s): J44.9 - Chronic obstructive pulmonary disease, unspecified Status: Acute Assessment and Plan: GOLD grade 2 group E COPD Patient with a 50 pack year tobacco use, quit 11/13/2024. Alpha 1 anti trypsin genotype CM. Alpha 1 anti trypsin level 236, normal. 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 He retired 4-5 years ago. PFTs on 01/20/2021 with a moderately severe obstructive abnormality with an FEV1 of 1.71 L, 50% predicted, ratio 52%, normal lung volumes, moderately decreased DLCO that normalized when corrected for alveolar volume. CT scan of the chest with emphysema on 02/07/2007, 06/27/2021, 02/06/2022, 07/10/2024, and most recently on 11/13/2024 with moderate apical predominant paraseptal emphysema and mild apical predominant centrilobular emphysema. Discharged from hospital on 12/04/2024 on 2 L at rest and 2 L with activity, 2 L at night per home O2 assessment and overnight oximetry. Eosinophil on 11/13/2024 is 33/uL. Echocardiogram 11/21/2024 with LVEF 55-60%, grade 1 diastolic dysfunction, normal right ventricular size and function. Mildly enlarged right atrium. Tricuspid peak gradient 42. 02/16/25: Currently patient is in no respiratory distress. He is on his baseline 2 L nasal cannula saturations 97%. He has no wheezing. Plan: I do not believe the patient is having a COPD exacerbation and given his infectious concerns I will not place him on systemic or inhaled steroids at this time. I will place him on DuoNebs q.6 hours. Goal saturation 90-94%, adjust oxygen accordingly. 02/17/25: he has no wheezes today. Plan: Continue DuoNebs q.6, goal saturation 90-94%. He is on his baseline 2 L with saturations 94%. 02/18/25: no wheezes today. Continue DuoNebs q.6, he is at his baseline 2 L nasal cannula with adequate saturations. 02/19/25: no wheezes today. On his baseline level of oxygen. Continue current management. (3) Cancer of right lung: Qualifiers: Lung location: unspecified part of lung Qualified Code(s): C34.91 - Malignant neoplasm of unspecified part of right bronchus or lung Code(s): C34.91 - Malignant neoplasm of unspecified part of right bronchus or lung Status: Acute Assessment and Plan: Squamous cell lung cancer status post right middle lobectomy on 01/23/2020 with negative lymph nodes, tumor 2.8 cm, T1c N0 M0 stage IA. He is followed by Dr. Santi daly and had a CT scan on 07/10/2024 with emphysema and no evidence of malignancy with recommendation to repeat in [address] scan on 01/18/2025 showed an enlarging right middle lobe nodule from 1.4 by 0.9 cm on 11/27/2024 to 1.9 x 1.0 cm on 01/18/2025. I discussed this result with his oncologist Dr. Quinten mccurdy and the plan was to obtain a PET scan as an outpatient to determine the best biopsy site. The PET scan was scheduled for PET scan but he could not be completed because the patient was too sick. 02/15/25: CT scan of the chest with no change in his right lower lobe nodule at 1.8 x 0.9 cm. 02/16/25: plan for outpatient PET scan to assess extent of disease and guide biopsy. Subjective Date/time seen: 02/19/25 11:10 Interval history: 02/16/2025: This is a new pulmonary consult for recurrent pneumonia. 64-year-old with a history of COPD On 2 L nasal cannula 24-7, squamous cell lung cancer status post right middle lobectomy on 01/23/2020 with negative lymph nodes, tumor 2.8 cm, T1c N0 M0 stage IA. Patient has a history of recurrent left-sided pneumonia. 11/14/2024 through 12/04/2024 he had influenza, human metapneumovirus and a urine antigen positive for pneumococcus. From 01/18/2025 through 01/25/2025 he had persistent left lower lobe consolidation with tree-in-bud infiltrates in the left upper lobe with some improvement and was treated with cefepime and azithromycin in the hospital and discharged on Levaquin. CT scan on 01 18 2025 showed an enlarging right middle lobe nodule from 1.4 by 0.9 cm on 11/27/2024 to 1.9 x 1.0 cm on 01/18/2025. I discussed this result with his oncologist Dr. Quinten mccurdy and the plan was to obtain a PET scan as an outpatient to determine the best biopsy site. The PET scan was scheduled for PET scan but he could not be completed because the patient was too sick. The patient was seen on 02/01/2025 by his PCP who said he was improving. The patient concurs that he was improving. On On 02/02/2025 he started develop worsening shortness of breath at rest, dyspnea on exertion, wheezing. One week ago he had a hot flash but did not measure his temperature. last 2 days he has had increased phlegm production which is rosenbaum and brown. 02/15/2025: Patient presented to the emergency room with worsening shortness of breath. Blood pressure was 125/71, pulse set 97, respiratory rate 29, temperature 97.9?. Initially was on 4 L nasal cannula with saturations 97%. he had decreased breath sounds in the left base. He had no wheezing. White blood cell count was 7.9, eosinophils 7.7, creatinine 0.84, D-dimer 0.78, BNP 220, ABG on 2 L 7.46/38/62. CT angiogram of the Chest showed no pulmonary embolism, left lower lobe consolidation with air bronchograms throughout, patchy infiltrates left upper lobe and lingula, unchanged right lower lobe nodule at 1.9 x 1.0 cm. Patient was treated with cefepime, vancomycin and doxycycline. 02/16/2025: currently the patient tells me he feels the same as yesterday. He has a cough but no phlegm. No hemoptysis. Currently is on 2 L nasal cannula with saturations 95%. He is afebrile with a white blood cell count of 6.2. Creatinine 0.81. 02/17/25: Overall the patient tells me his breathing is the same, he has a small cough with minimal phlegm and no hemoptysis. Says he has dyspnea on exertion but no rest shortness of breath He is afebrile. currently is on 2 L nasal cannula saturations 94%. White blood cell count 8.4, creatinine 0.94. Procalcitonin 0.4. 02/18/2025: Overall the patient tells me he is breathing worse at rest and with activity. He is afebrile. Currently is on 2 L nasal cannula saturations 95%. White blood cell count 11.5, creatinine 0.89. Yesterday he was positive 1.5 L. His weight today is 68.5. To command he is able to cough up to expectorations and then he is fatigued. The phlegm is thick and light green to green colored. No blood. 02/19/2025. Overall patient tells me he is doing better. Says he is breathing 50% at his normal. He has no rest shortness of breath and his dyspnea on exertion around the room was a little bit better. He is expectorating more phlegm. White blood cell count 8.8, creatinine 0.8. Currently patient is on 2 L nasal cannula saturations 94%. Yesterday he was positive 730 mL and cumulative is positive 2.7 L since admission. His weight today is 69.5. DATA: 02/15/25: CTA chest PE protocol Ordering provider: Carolina Goel History: 64 years Male with . worsening pneumonia? more O2 requirement . Comparison: January 18, 2025 Technique: CT angiogram chest was performed following timed intravenous injection of contrast. Thin slice axial images and reformatted coronal images were obtained. Three dimensional reformatted images of the chest were also obtained using a [employer] workstation. . Automated exposure control and iterative reconstruction technique were employed. The dose-length product was 391.32 mGy- cm. 100 mL Omnipaque 350 was given IV. Findings: PULMONARY ARTERIES: No pulmonary embolus. VISUALIZED THORACIC INLET: Normal. MEDIASTINUM: Aorta/coronary arteries: Mild atheromatous disease. Heart/other: The heart is not enlarged. Lymph nodes: No mediastinal or hilar adenopathy. Calcified lymph nodes are noted. LUNGS: Pneumonia in the left lower lobe. Tree-in-bud appearance is seen in the left upper lobe and lingula suggestive of post infection changes. No pulmonary nodules or masses. No pneumothorax. Trace of left pleural effusion is seen. VISUALIZED UPPER ABDOMEN: 3.7 x 3.8 cm cyst is seen in the right kidney upper pole. Otherwise, the visualized upper abdomen is normal. MUSCULOSKELETAL: Soft tissues: The superficial soft tissues are normal. Bones: Age appropriate degenerative changes of the spine. Healing fracture in the right fourth and fifth ribs is noted. Compression fracture involving the superior endplate of T12 and L1 is noted. MRI evaluation advised. Spinal stimulator is seen in the midthoracic area. IMPRESSION: 1. Left lower lobe pneumonia which has increased compared to previous study. 2. No pulmonary embolism. 3. Tree-in-bud appearance in the left upper lobe and lingula suggestive of post infection changes. 4. Trace of left pleural effusion. 5. Compression fracture in the superior endplate of T12 and L1 most likely acute. MRI evaluation advised. 6. Healing rib fractures in the right hemithorax. Addendum: There is been no interval change in a 1.8 x 0.9 cm perihilar nodule with lobular margins in the right lower lobe which remains concerning for primary bronchogenic carcinoma and given location. Recommend further evaluation with endo bronchoscopic ultrasound-guided biopsy. Review of Systems Constitutional: Constitutional: Reports no additional constitutional complaints Eyes: Eyes: Reports no additional eye complaints ENT: Reports system reviewed and no additional complaints, except as documented Cardiovascular: Cardiovascular: Reports no additional cardiovascular complaints Respiratory: Respiratory: Reports no additional respiratory complaints Gastrointestinal: Gastrointestinal: Reports no additional gastrointestinal complaints Musculoskeletal: Musculoskeletal: Reports no additional musculoskeletal complaints Neurologic: Reports system reviewed and no additional complaints, except as documented Psychiatric: Psychiatric: Reports no additional psychiatric complaints Endocrine: Endocrine: Reports no additional endocrine complaints Hematologic/Lymphatic: Hematologic/Lymphatic: Reports no additional hematologic/lymphatic complaints Allergic/Immunologic: Allergic/Immunologic: Reports no additional allergic/immunologic complaints Exam Const: General: cooperative, healthy appearing and comfortable Orientation/consciousness: oriented to person, oriented to place and oriented to time HENMT: Head: normal to inspection Ears: hearing grossly normal bilaterally Eyes: General: appearance normal, both eyes and all related structures Neck: Neck: normal visual inspection Chest: Chest palpation & inspection: normal inspection of the chest Resp: Effort & Inspection: normal respiratory effort and able to speak in complete sentences Auscultation: no crackles, no rales, no rhonchi, no wheezes and diminished lung sounds Other: Decreased breath sounds at the bases, coarse rhonchi that improved with expectoration Cardio: Jugular venous distension: no JVD GI: Inspection: normal to inspection Skin: General skin exam: normal color Neuro: General: oriented to person, oriented to place and oriented to time Extrem: General: normal to inspection Psych: Appearance: grossly normal Objective Data Vital Signs Vital Signs: Vital Signs - 24 hr 02/18/25 13:51 02/18/25 15:01 02/18/25 20:00 Temperature 36.0 C L Pulse Rate 75 77 Respiratory Rate 18 18 Blood Pressure 98/60 L Pulse Oximetry 97 91 Oxygen Delivery Nasal Cannula Oxygen Flow Rate 2 02/18/25 20:12 02/18/25 20:46 02/18/25 21:00 Temperature 36.7 C Pulse Rate 96 77 77 Respiratory Rate 24 H 18 18 Blood Pressure 103/63 Pulse Oximetry 93 Oxygen Delivery Oxygen Flow Rate 02/18/25 21:33 02/19/25 03:22 02/19/25 03:31 Temperature Pulse Rate 85 80 Respiratory Rate 18 20 Blood Pressure Pulse Oximetry 91 Oxygen Delivery Nasal Cannula Oxygen Flow Rate 2 02/19/25 04:50 02/19/25 08:00 02/19/25 08:00 Temperature 36.3 C L Pulse Rate 76 80 Respiratory Rate 20 18 Blood Pressure 105/65 Pulse Oximetry 94 97 Oxygen Delivery Nasal Cannula Oxygen Flow Rate 2 02/19/25 08:42 Temperature Pulse Rate 84 Respiratory Rate 20 Blood Pressure Pulse Oximetry Oxygen Delivery Oxygen Flow Rate Intake/Output Intake/Output: Intake & Output 02/16/25 02/17/25 02/18/25 02/19/25 23:59 23:59 23:59 23:59 Intake Total 9835 069 7998 300 Output Total 550 300 300 225 Balance 1320 690 730 75 Meds/Results Medications: Active Medications Generic Name Dose Route Start Last Admin Trade Name Freq PRN Reason Stop Dose Admin Acetaminophen 650 mg 02/18/25 22:00 02/19/25 08:50 Acetaminophen 325 Mg Tablet PO 650 mg Q6H DANE Administration Acetylcysteine 200 mg 02/16/25 20:00 02/19/25 07:56 Acetylcysteine 20% Inhal Soln 800 Mg/4 Ml Vial INHALATION 200 mg Q6HRT DANE Administration Albuterol/Ipratropium 3 ml 02/16/25 20:00 02/19/25 07:56 Ipratropium 0.5 Mg/Albuterol Sulfate 2.5 Mg Ampul.Neb 3 Ml INHALATION 3 ml Q6HRT DANE Administration Aspirin 81 mg 02/16/25 09:00 02/19/25 08:50 Aspirin 81 Mg Enteric Tablet PO 81 mg DAILY DANE Administration Bupropion HCl 300 mg 02/16/25 09:00 02/19/25 08:48 Bupropion Hcl Xl (24 Hr) 150 Mg Tabcr PO 300 mg DAILY DANE Administration Cyclobenzaprine HCl 10 mg 02/18/25 22:00 02/19/25 05:10 Cyclobenzaprine Hcl 10 Mg Tablet PO 10 mg Q8H DANE Administration Enoxaparin Sodium 40 mg 02/16/25 09:00 02/19/25 09:00 Enoxaparin 40 Mg/0.4 Ml Syringe SUB-Q Not Given DAILY DANE Ferrous Sulfate 325 mg 02/16/25 09:00 02/19/25 08:50 Ferrous Sulfate [address] BY MOUTH 325 mg DAILY DANE Administration Guaifenesin 1,200 mg 02/16/25 21:00 02/19/25 08:49 Guaifenesin 12 Hr 600 Mg Tabcr PO 1,200 mg Q12HR DANE Administration Levofloxacin/Dextrose 750 mg in 150 mls @ 100 mls/hr 02/16/25 15:00 02/18/25 16:10 Levaquin 750 Mg/D5w 150 Ml IVPB Infused Q24H DANE Infusion Meropenem 1 gm in 100 mls @ 200 mls/hr 02/16/25 19:00 02/19/25 04:20 IVPB 150 mls/hr Q8H DANE Administration Levetiracetam 250 mg/ 750 mg 02/16/25 09:00 02/19/25 08:49 Levetiracetam 500 mg PO 750 mg Q12HR DANE Administration Lidocaine 1 patch 02/16/25 09:00 02/19/25 08:50 Lidocaine 5% Patch TOPICAL 1 patch DAILY DANE Administration Lorazepam 0.5 mg 02/15/25 18:35 02/17/25 16:14 Lorazepam (*Crx) 0.5 Mg Tablet PO 0.5 mg TID PRN Administration anxiety Midodrine 2.5 mg 02/16/25 09:00 02/19/25 08:49 Midodrine Hcl 2.5 Mg Tablet PO 2.5 mg BID DANE Administration Oxycodone HCl 10 mg 02/17/25 13:00 02/19/25 08:49 Oxycodone (*Crx) 5 Mg/5 Ml Oral Soln Ir PO 10 mg Q4HR DANE Administration Pantoprazole Sodium 40 mg 02/16/25 09:00 02/19/25 08:49 Pantoprazole 40 Mg Tablet PO 40 mg Q12HR DANE Administration Paroxetine HCl 40 mg 02/16/25 09:00 02/19/25 08:49 Paroxetine 20 Mg Tablet PO 40 mg DAILY DANE Administration Pregabalin 150 mg 02/16/25 09:00 02/19/25 08:50 Pregabalin (*Crx) 75 Mg Capsule PO 150 mg DAILY DANE Administration Trazodone HCl 100 mg 02/15/25 21:00 02/18/25 19:58 Trazodone Hcl 50 Mg Tablet PO 100 mg QHS DANE Administration Vitamin B Complex 1 cap 02/16/25 09:00 02/19/25 08:52 Vitamin B Complex Capsule PO 1 cap DAILY DANE Administration Radiology Results: ITS Impressions Chest CTA 02/15/25 15:12 IMPRESSION: 1. Left lower lobe pneumonia which has increased compared to previous study. 2. No pulmonary embolism. 3. Tree-in-bud appearance in the left upper lobe and lingula suggestive of post infection changes. 4. Trace of left pleural effusion. 5. Compression fracture in the superior endplate of T12 and L1 most likely acute. MRI evaluation advised. 6. Healing rib fractures in the right hemithorax. ADDENDUM: 02/16/25 1252 ADDENDUM: There is been no interval change in a 1.8 x 0.9 cm perihilar nodule with lobular margins in the right lower lobe which remains concerning for primary bronchogenic carcinoma and given location. Recommend further evaluation with endo bronchoscopic ultrasound-guided biopsy. Chest X-Ray 02/16/25 15:59 Impression: 1: Progression of bibasilar airspace disease, consistent with pneumonia. Labs Labs: Laboratory Results - last 24 hr 02/19/25 05:39 WBC 8.8 RBC 3.95 L Hgb 9.8 L Hct 32.7 L MCV 82.8 MCH 24.8 L MCHC 30.0 L RDW 16.8 H Plt Count 250 MPV 9.4 Immature Gran % (Auto) 0.6 H Neut % (Auto) 74.5 H Lymph % (Auto) 9.9 L [place] % (Auto) 9.1 H Eos % (Auto) 5.4 H Baso % (Auto) 0.5 Lymph # (Auto) 0.87 L [place] # (Auto) 0.8 H Eos # (Auto) 0.5 H Baso # (Auto) 0.0 Abs Immat Gran (auto) 0.05 H Absolute Neuts (auto) 6.6 Absolute Nucleated RBC 0.000 Nucleated RBC % 0.0 Sodium 138 Potassium 3.5 Chloride 103 Carbon Dioxide 30 Anion Gap 5 BUN 15 Creatinine 0.80 Estim Creat Clear Calc 79 Estimated GFR > 60 Glucose 90 Calcium 8.2 L Magnesium 2.0 Total Bilirubin 0.2 AST 20 ALT 11 Alkaline Phosphatase 76 Total Protein 6.0 L Albumin 2.8 L TSH (Reflex) 2.040
--- NOTE | 2025-02-19 12:17 | PM.IMPN ---
Progress Note: A&P Assessment and Plan (1) Sepsis: Qualifiers: Sepsis type: sepsis due to unspecified organism Sepsis acute organ dysfunction status: without acute organ dysfunction Qualified Code(s): A41.9 - Sepsis, unspecified organism Code(s): A41.9 - Sepsis, unspecified organism Status: Acute Assessment and Plan: - meets SIRS criteria: HR, RR. No leukocytosis. History of hypotension on midodrine, hemodynamically stable. pneumonia procalcitonin neg - received IVf continue Meropenem and leaquin. follow sputum culture result, resp PCR. - suspected source: Pneumonia - blood cultures drawn on 02/15, follow (2) Pneumonia: Qualifiers: Laterality: unspecified laterality Lung location: unspecified part of lung Pneumonia type: due to unspecified organism Qualified Code(s): J18.9 - Pneumonia, unspecified organism Code(s): J18.9 - Pneumonia, unspecified organism Status: Acute Assessment and Plan: - CXR: Persistent bilateral airspace disease, left greater than right, consistent with pneumonia. - Chest CTA: 1. Left lower lobe pneumonia which has increased compared to previous study. 2. No pulmonary embolism. 3. Tree-in-bud appearance in the left upper lobe and lingula suggestive of post infection changes. 4. Trace of left pleural effusion. 5. Compression fracture in the superior endplate of T12 and L1 most likely acute. MRI evaluation advised. 6. 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 pulmonary team on board (3) COPD (chronic obstructive pulmonary disease): Qualifiers: COPD type: unspecified COPD Qualified Code(s): J44.9 - Chronic obstructive pulmonary disease, unspecified Code(s): J44.9 - Chronic obstructive pulmonary disease, unspecified Status: Acute Assessment and Plan: - [facility] - continue home medications - no current physical exam findings were subjective symptoms suggestive of COPD exacerbation, will hold on steroid course (4) Squamous cell carcinoma: Status: Acute Assessment and Plan: - hx of squamous cell carcinoma of the lung, s/p lobectomy - last follow-up with oncologist, Nathalie MANDEL, on 01/18/25. Still needs outpatient PET scan due to possibility of recurrence in the right lower lobe, however unable to do imaging due to active infection previously. (5) Iron deficiency anemia: Qualifiers: Iron deficiency anemia type: unspecified iron deficiency Qualified Code(s): D50.9 - Iron deficiency anemia, unspecified Code(s): D50.9 - Iron deficiency anemia, unspecified Status: Acute Assessment and Plan: - Hgb 13.0, previously 12.3 on 02/09 - Hx: HONG - transfuse if <7 - monitor (6) Hypotension: Qualifiers: Hypotension type: unspecified hypotension type Qualified Code(s): I95.9 - Hypotension, unspecified Code(s): I95.9 - Hypotension, unspecified Status: Acute Assessment and Plan: - chronic, currently 107/61 - continue home medications: Midodrine - monitor (7) Seizure: Code(s): R56.9 - Unspecified convulsions Status: Acute Assessment and Plan: - chronic, absent type - continue home medications: Keppra (8) Moderate malnutrition: Code(s): E44.0 - Moderate protein-calorie malnutrition Status: Acute Assessment and Plan: Dietitian onboard Plan Diet: Heart healthy GI Prophylaxis: Not currently indicated DVT Prophylaxis: Lovenox SQ Lines/Tubes: Peripheral IV Code Status: full code Subjective Date/time seen: 02/19/25 12:17 Interval history: per HPI: 64 y/o M with PMH of absence seizure, 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 The patient presents here from home via EMS on 02/15 for further evaluation of shortness of breath. He reports onset approximately 1 week ago but has significantly worsened 1 hour prior to arrival to the emergency department. Shortness of breath is accompanied by fatigue, cough. He denies nausea, vomiting, diarrhea, chest pain. Per chart review, the patient arrived with audible rhonchi, wheezing, and was diaphoretic and pale. While in route to the hospital he received a DuoNeb x2. He arrived 97% on 4L nasal cannula. At baseline he wears supplemental O2. Of note, the patient was recently evaluated on 02/09/2025 at [place] [facility]. He was found to have pneumonia and was started on azithromycin and cefdinir. He reports completion/noncompliance with this antibiotic course. The patient also had 2 semi-recent admissions. The 1st from 11/14/24 to 12/04/2024 and 2nd from 01/20/2025 to 01/25/2025. During the lengthy admission from November to December he was diagnosed with Flu A, human metapneumovirus, and urine test was positive for pneumococcal antigen. Imaging showed left lower lobe postobstructive pneumonia which was likely caused by multiple infectious agents per pulmonology. He was treated with cefepime and Levaquin. Patient was referred back to his oncologist for follow-up on a right 1.4 cm nodule seen in the right lower lobe which was suspicious for recurrence of lung cancer. Patient attempted to follow-up with his oncologist on 01/18, however due to appearance he was referred back to the ER for further evaluation due to suspicion for recurrence of pneumonia. He was placed on cefpodoxime and azithromycin. He had an return to the ER 2 days later on 01/20 due to continued shortness of breath. He was then admitted from 01/20 - 01/25. He was found to have recurrence of bilateral/worsening pneumonia and was treated with azithromycin and cefepime and transition to oral Levaquin on 01/23. Now returning today on 02/09 with shortness of breath and imaging showing recurrence of pneumonia. Initial VS at presentation: 97.9? F, HR 97, RR 29, 125/71, and 97% on 4L NC. ED workup showed: No leukocytosis, hemoglobin 13.0, D-dimer elevated, ABG showed a pH of 7.456/O2 61.7/O2 saturation 92.9% on 2L, no significant electrolyte derangements, renal function within normal limits, BNP 220, nasal MRSA negative. CXR showed persistent bilateral airspace disease, left greater than right, consistent with pneumonia. Chest CTA showed a left lower lobe pneumonia which has increased compared to previous study, no PE, tree-in-bud appearance in the left upper lobe and lingula suggestive of post infection changes, trace left pleural effusion, compression fracture in the superior endplate of T12 and L1 most likely acute, healing rib fracture in the right hemothorax. 02/16/25 Patient was seen and examined at bedside. he is feeling slightly better. denies cough or fever. has been having chills at home. CT concerning for pneumonia. WBC WNL. procalcitonin neg. pulmonary team has been consulted. continue with IV Abx. 02/17/25 patient was seen and examined at bedside. feeling the same as yesterday. pulmonary team on board. continue Meropenem and leaquin. follow sputum culture result, resp PCR. 02/19/25 Patient was seen and examined at bedside. he is feeling tired. breathing the same. denies chest pain, abd pain, Nausea vomiting. continue IV Abx. will follow PCr and culture results. reviewed pulmonary team reccomendation. Review of Systems Review of Systems: All systems reviewed & are unremarkable except as noted in HPI and below Exam Narrative: left side significantly diminished. chronically ill appearing. Const: General: comfortable and no acute distress Other: , male, chronically ill-appearing HENMT: Face/Nose/Sinus: Normal nares present Mouth: Yes moist mucous membranes Eyes: General: appearance normal, both eyes and all related structures Sclera: sclerae normal Pupils: Equal, round and reactive pupils present EOM: EOMs intact bilaterally Resp: Other: Mild dyspnea without accessory muscle use. Significantly diminished lung sounds in the left lower and left mid lung al[place]. Right clear to auscultation. No wheezing. Cardio: Rate: regular rate Rhythm: regular rhythm Other: S1-S2 present without murmur, rub, ectopy GI: Other: Abdomen soft, nondistended, nontender. Normoactive bowel sounds in all quadrants. Skin: General skin exam: normal color and no rashes or lesions noted Wounds: no wounds Neuro: Cranial nerves: Yes Equal, round and reactive pupils present Speech: normal speech Motor exam (neuro): 5/5 motor strength present throughout Sensory Exam: normal sensation Other: A&O x4 Extrem: General: normal to inspection Psych: Mental Status: mental status grossly normal Affect: Sad affect present Other: Good insight and judgment, very pleasant Objective Data Vital Signs Vital Signs: Vital Signs - 24 hr 02/18/25 13:51 02/18/25 15:01 02/18/25 20:00 Temperature 96.8 F L Pulse Rate 75 77 Respiratory Rate 18 18 Blood Pressure 98/60 L Pulse Oximetry 97 91 Oxygen Delivery Nasal Cannula Oxygen Flow Rate 2 02/18/25 20:12 02/18/25 20:46 02/18/25 21:00 Temperature 98.0 F Pulse Rate 96 77 77 Respiratory Rate 24 H 18 18 Blood Pressure 103/63 Pulse Oximetry 93 Oxygen Delivery Oxygen Flow Rate 02/18/25 21:33 02/19/25 03:22 02/19/25 03:31 Temperature Pulse Rate 85 80 Respiratory Rate 18 20 Blood Pressure Pulse Oximetry 91 Oxygen Delivery Nasal Cannula Oxygen Flow Rate 2 02/19/25 04:50 02/19/25 08:00 02/19/25 08:00 Temperature 97.3 F L Pulse Rate 76 80 Respiratory Rate 20 18 Blood Pressure 105/65 Pulse Oximetry 94 97 Oxygen Delivery Nasal Cannula Oxygen Flow Rate 2 02/19/25 08:42 Temperature Pulse Rate 84 Respiratory Rate 20 Blood Pressure Pulse Oximetry Oxygen Delivery Oxygen Flow Rate Intake/Output Intake/Output: Intake & Output 02/16/25 02/17/25 02/18/25 02/19/25 23:59 23:59 23:59 23:59 Intake Total 3467 932 1407 400 Output Total 550 300 300 225 Balance 1320 690 730 175 Meds/Results Medications: Active Medications Generic Name Dose Route Start Last Admin Trade Name Freq PRN Reason Stop Dose Admin Acetaminophen 650 mg 02/18/25 22:00 02/19/25 08:50 Acetaminophen 325 Mg Tablet PO 650 mg Q6H DANE Administration Acetylcysteine 200 mg 02/16/25 20:00 02/19/25 07:56 Acetylcysteine 20% Inhal Soln 800 Mg/4 Ml Vial INHALATION 200 mg Q6HRT DANE Administration Albuterol/Ipratropium 3 ml 02/16/25 20:00 02/19/25 07:56 Ipratropium 0.5 Mg/Albuterol Sulfate 2.5 Mg Ampul.Neb 3 Ml INHALATION 3 ml Q6HRT DANE Administration Aspirin 81 mg 02/16/25 09:00 02/19/25 08:50 Aspirin 81 Mg Enteric Tablet PO 81 mg DAILY DANE Administration Bupropion HCl 300 mg 02/16/25 09:00 02/19/25 08:48 Bupropion Hcl Xl (24 Hr) 150 Mg Tabcr PO 300 mg DAILY DANE Administration Cyclobenzaprine HCl 10 mg 02/18/25 22:00 02/19/25 05:10 Cyclobenzaprine Hcl 10 Mg Tablet PO 10 mg Q8H DANE Administration Enoxaparin Sodium 40 mg 02/16/25 09:00 02/19/25 09:00 Enoxaparin 40 Mg/0.4 Ml Syringe SUB-Q Not Given DAILY DANE Ferrous Sulfate 325 mg 02/16/25 09:00 02/19/25 08:50 Ferrous Sulfate [address] BY MOUTH 325 mg DAILY DANE Administration Guaifenesin 1,200 mg 02/16/25 21:00 02/19/25 08:49 Guaifenesin 12 Hr 600 Mg Tabcr PO 1,200 mg Q12HR DANE Administration Levofloxacin/Dextrose 750 mg in 150 mls @ 100 mls/hr 02/16/25 15:00 02/18/25 16:10 Levaquin 750 Mg/D5w 150 Ml IVPB Infused Q24H DANE Infusion Meropenem 1 gm in 100 mls @ 200 mls/hr 02/16/25 19:00 02/19/25 11:27 IVPB 200 mls/hr Q8H DANE Administration Levetiracetam 250 mg/ 750 mg 02/16/25 09:00 02/19/25 08:49 Levetiracetam 500 mg PO 750 mg Q12HR DANE Administration Lidocaine 1 patch 02/16/25 09:00 02/19/25 08:50 Lidocaine 5% Patch TOPICAL 1 patch DAILY DANE Administration Lorazepam 0.5 mg 02/15/25 18:35 02/17/25 16:14 Lorazepam (*Crx) 0.5 Mg Tablet PO 0.5 mg TID PRN Administration anxiety Midodrine 2.5 mg 02/16/25 09:00 02/19/25 08:49 Midodrine Hcl 2.5 Mg Tablet PO 2.5 mg BID DANE Administration Oxycodone HCl 10 mg 02/17/25 13:00 02/19/25 08:49 Oxycodone (*Crx) 5 Mg/5 Ml Oral Soln Ir PO 10 mg Q4HR DANE Administration Pantoprazole Sodium 40 mg 02/16/25 09:00 02/19/25 08:49 Pantoprazole 40 Mg Tablet PO 40 mg Q12HR DANE Administration Paroxetine HCl 40 mg 02/16/25 09:00 02/19/25 08:49 Paroxetine 20 Mg Tablet PO 40 mg DAILY DANE Administration Pregabalin 150 mg 02/16/25 09:00 02/19/25 08:50 Pregabalin (*Crx) 75 Mg Capsule PO 150 mg DAILY DANE Administration Trazodone HCl 100 mg 02/15/25 21:00 02/18/25 19:58 Trazodone Hcl 50 Mg Tablet PO 100 mg QHS DANE Administration Vitamin B Complex 1 cap 02/16/25 09:00 02/19/25 08:52 Vitamin B Complex Capsule PO 1 cap DAILY DANE Administration Radiology Results: ITS Impressions Chest CTA 02/15/25 15:12 IMPRESSION: 1. Left lower lobe pneumonia which has increased compared to previous study. 2. No pulmonary embolism. 3. Tree-in-bud appearance in the left upper lobe and lingula suggestive of post infection changes. 4. Trace of left pleural effusion. 5. Compression fracture in the superior endplate of T12 and L1 most likely acute. MRI evaluation advised. 6. Healing rib fractures in the right hemithorax. ADDENDUM: 02/16/25 1252 ADDENDUM: There is been no interval change in a 1.8 x 0.9 cm perihilar nodule with lobular margins in the right lower lobe which remains concerning for primary bronchogenic carcinoma and given location. Recommend further evaluation with endo bronchoscopic ultrasound-guided biopsy. Chest X-Ray 02/16/25 15:59 Impression: 1: Progression of bibasilar airspace disease, consistent with pneumonia. Labs Labs: Laboratory Results - last 24 hr 02/19/25 05:39 WBC 8.8 RBC 3.95 L Hgb 9.8 L Hct 32.7 L MCV 82.8 MCH 24.8 L MCHC 30.0 L RDW 16.8 H Plt Count 250 MPV 9.4 Immature Gran % (Auto) 0.6 H Neut % (Auto) 74.5 H Lymph % (Auto) 9.9 L [place] % (Auto) 9.1 H Eos % (Auto) 5.4 H Baso % (Auto) 0.5 Lymph # (Auto) 0.87 L [place] # (Auto) 0.8 H Eos # (Auto) 0.5 H Baso # (Auto) 0.0 Abs Immat Gran (auto) 0.05 H Absolute Neuts (auto) 6.6 Absolute Nucleated RBC 0.000 Nucleated RBC % 0.0 Sodium 138 Potassium 3.5 Chloride 103 Carbon Dioxide 30 Anion Gap 5 BUN 15 Creatinine 0.80 Estim Creat Clear Calc 79 Estimated GFR > 60 Glucose 90 Calcium 8.2 L Magnesium 2.0 Total Bilirubin 0.2 AST 20 ALT 11 Alkaline Phosphatase 76 Total Protein 6.0 L Albumin 2.8 L TSH (Reflex) 2.040 Quality VTE Prophylaxis VTE prophylaxis: pharmacologic ordered
[2025-02-19] MEDS: levoFLOXacin 750 MG/D5W 150 ML 750 MG/150 ML BAG 100 MG IVPB (15:24)
[2025-02-19] MEDS: traZODone HCL 50 MG TABLET 100 MG PO (20:20)
[2025-02-19 23:19] LABS: Legionella pneumophila Ag Ur. NOT DETECTED
[2025-02-20] VITALS (12 sets, daily range): BP systolic 117–137; BP diastolic 66–89; PULSE 74–86; RESP 16–22; TEMP 36–36.2; O2SAT 94–97
[2025-02-20] MEDS: ACETYLCYSTEINE 20% INHAL SOLN 800 MG/4 ML VIAL 200 MG INHALATION (03:13)
[2025-02-20] MEDS: IPRATROPIUM 0.5 MG/ALBUTEROL SULFATE 2.5 MG AMPUL.NEB 3 ML INHALATION ×4 (03:13→19:52)
[2025-02-20] MEDS: oxyCODONE (*CRX) 5 MG/5 ML ORAL SOLN IR 10 MG PO ×5 (03:59→20:59)
[2025-02-20] MEDS: MEROPENEM 1 GM/NS 100 ML 1 GM/100 ML BAG IVPB ×3 (03:59→18:20)
[2025-02-20] MEDS: ACETAMINOPHEN 325 MG TABLET 650 MG PO ×4 (03:59→21:00)
[2025-02-20] MEDS: CYCLOBENZAPRINE HCL 10 MG TABLET PO ×3 (05:04→21:00)
[2025-02-20 06:45] LABS: Hematocrit 34.5 % (42.0-52.0); Hemoglobin 10.1 g/dL (14.0-18.0); Mean Corpuscular HGB Conc 29.3 g/dl (32-36); Mean Corpuscular Hemoglobin 24.9 pg (26-34); Mean Corpuscular Volume 85.2 fl (80-100); Mean Platelet Volume 9.7 fl (7.4-10.4); Platelet Count Result 277 k/mm3 (150-375); Red Blood Count 4.05 M/mm3 (4.6-6.20); White Blood Count 9.9 K/mm3 (4.5-10.0)
[2025-02-20 06:52] LABS: Anion Gap 4 mmol/L (4-12); Blood Urea Nitrogen 13 mg/dL (9-20); Carbon Dioxide 32 mmol/L (22-30); Chloride 103 mmol/L (98-107); Estimated CRCL calculation 77 ml/min; Estimated Glomerular Filt Rate > 60; Glucose 83 mg/dL (65-110); Potassium 3.7 mmol/L (3.4-5.0); Sodium 139 mmol/L (137-145)
--- NOTE | 2025-02-20 08:21 | PCRCNOTE ---
said to not give the Acetylcysteine.
[2025-02-20] MEDS: guaiFENesin 12 HR 600 MG TABCR 1200 MG PO ×2 (09:12→21:00)
[2025-02-20] MEDS: PREGABALIN (*CRX) 75 MG CAPSULE 150 MG PO (09:13)
[2025-02-20] MEDS: VITAMIN B COMPLEX CAPSULE 1 CAP PO (09:13)
[2025-02-20] MEDS: levETIRAcetam Tablet 250 MG, levETIRAcetam Tablet 500 MG 750 MG PO ×2 (09:13→21:00)
[2025-02-20] MEDS: ENOXAPARIN 40 MG/0.4 ML SYRINGE SUB-Q (09:14)
[2025-02-20] MEDS: PANTOPRAZOLE 40 MG TABLET PO ×2 (09:14→21:00)
[2025-02-20] MEDS: FERROUS SULFATE 325 MG TABLET DR BY MOUTH (09:14)
[2025-02-20] MEDS: MIDODRINE HCL 2.5 MG TABLET PO ×2 (09:14→17:05)
[2025-02-20] MEDS: PARoxetine 20 MG TABLET 40 MG PO (09:14)
[2025-02-20] MEDS: buPROPion HCL XL (24 HR) 150 MG TABCR 300 MG PO (09:14)
--- NOTE | 2025-02-20 10:07 | P.PNPL_ITS ---
Progress Note: A&P Assessment and Plan (1) Pneumonia: Qualifiers: Laterality: unspecified laterality Lung location: unspecified part of lung Pneumonia type: due to unspecified organism Qualified Code(s): J18.9 - Pneumonia, unspecified organism Code(s): J18.9 - Pneumonia, unspecified organism Status: Acute Assessment and Plan: Patient has a history of recurrent left-sided pneumonia. 11/14/2024 through 12/04/2024 he had influenza, human metapneumovirus and a urine antigen positive for pneumococcus with CT scan on 11/24/2024 with nodular and tree-in-bud infiltrates and higher left lung, left lower lobe consolidation.. From 01/18/2025 through 01/25/2025 he had pneumonia with CT scan 01/18/25 with persistent but improved left lower lobe consolidation with tree-in-bud infiltrates in the left upper lobe from 11/24/24 and was treated with cefepime and azithromycin in the hospital and discharged on Levaquin. On 02/09 patient was prescribed cefdinir and azithromycin as an outpatient. CT scan 02/15/2025 demonstrates tree-in-bud infiltrates left upper lobe and lingula no change from 01/18/2025 and consolidation left lower lobe increased from 01/18/2025 and similar appearance from 11/24/2024. MRSA nasal swab negative. COVID, influenza, RSV RT T PCR negative. 02/16/25: Plan: Current infiltrates have air bronchograms so I doubt there is not complete collapse from a proximal mucus plug or endobronchial lesion. Will treat patient for pneumonia and will change to meropenem and Levaquin. I will send urine for Legionella, urine for pneumococcal antigen, mycoplasma IgM and respiratory pathogen panel. I will treat aggressively to help him expectorate with guaifenesin 1200 mg p.o. b.i.d., Mucomyst 200 q.6, Vest therapy, Cornet flutter valve. I will check a procalcitonin on 02/17/2025. 02/17/25: Overall the patient tells me his breathing is the same, he has a small cough with minimal phlegm and no hemoptysis. Says he has dyspnea on exertion but no rest shortness of breath He is afebrile. currently is on 2 L nasal cannula saturations 94%. White blood cell count 8.4, creatinine 0.94. Procalcitonin 0.4. Plan: continue meropenem and Levaquin, both day 2. I was able to send a sputum for Gram stain and culture this morning. I talked to the nurse about collecting the respiratory pathogen panel. Urine Legionella, urine pneumococcal and mycoplasma IgM pending. Continue to help him expectorate with guaifenesin 1200 mg p.o. b.i.d., Mucomyst 200 q.6, Vest therapy, Cornet flutter valve. 02/18/2025: Overall the patient tells me he is breathing worse at rest and with activity. He is afebrile. Currently is on 2 L nasal cannula saturations 95%. White blood cell count 11.5, creatinine 0.89. Yesterday he was positive 1.5 L. His weight today is 68.5. To command he is able to cough up to expe ctorations and then he is fatigued. The phlegm is thick and light green to green colored. No blood. Plan: continue meropenem and Levaquin, both day 3. sputum for Gram stain and culture pending. Respiratory pathogen panel, Urine Legionella, urine pneumococcal and mycoplasma IgM pending. Continue to help him expectorate with DuoNebs q.6, guaifenesin 1200 mg p.o. b.i.d., Mucomyst 200 q.6, Vest therapy, Cornet flutter valve. 02/19/2025. Overall patient tells me he is doing better. Says he is breathing 50% at his normal. He has no rest shortness of breath and his dyspnea on exertion around the room was a little bit better. He is expectorating more phlegm. White blood cell count 8.8, creatinine 0.8. Currently patient is on 2 L nasal cannula saturations 94%. Yesterday he was positive 730 mL and cumulative is positive 2.7 L since admission. His weight today is 69.5. Plan: Slow improvement on meropenem and Levaquin, both day 4. sputum for Gram stain and culture pending. Respiratory pathogen panel, Urine Legionella, urine pneumococcal and mycoplasma IgM pending. Continue to help him expectorate with DuoNebs q.6, guaifenesin 1200 mg p.o. b.i.d., Mucomyst 200 q.6, Vest therapy, Cornet flutter valve. 02/20/2025: Patient is slowly improving. He tells me his breathing 65% back to his normal. He remains with cough and phlegm. His dyspnea on exertion is a little bit better. I asked him to expectorate and he produced 4 large yellow - green expectorations which were thin and easily expectorated. He is afebrile. White blood cell count 9.9, creatinine 0.81. Yesterday was positive 400 mL, cumulative he is positive 3.4 L since admission. Weight 68.5. Plan: Slow improvement on meropenem and Levaquin, both day 5. sputum for Gram stain and culture pending. Respiratory pathogen panel pending, Urine Legionella Negative, urine pneumococcal negative and mycoplasma IgM pending. Continue to help him expectorate with DuoNebs q.6, guaifenesin 1200 mg p.o. b.i.d., Mucomyst 200 q.6 completed 72 hours of therapy will discontinue Mucomyst today., Vest therapy, Cornet flutter valve. I will get a CXR on 02/21/[address] Miller, will follow with you. (2) COPD (chronic obstructive pulmonary disease): Qualifiers: COPD type: unspecified COPD Qualified Code(s): J44.9 - Chronic obstructive pulmonary disease, unspecified Code(s): J44.9 - Chronic obstructive pulmonary disease, unspecified Status: Acute Assessment and Plan: GOLD grade 2 group E COPD Patient with a 50 pack year tobacco use, quit 11/13/2024. Alpha 1 anti trypsin genotype CM. Alpha 1 anti trypsin level 236, normal. 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 He retired 4-5 years ago. PFTs on 01/20/2021 with a moderately severe obstructive abnormality with an FEV1 of 1.71 L, 50% predicted, ratio 52%, normal lung volumes, moderately decreased DLCO that normalized when corrected for alveolar volume. CT scan of the chest with emphysema on 02/07/2007, 06/27/2021, 02/06/2022, 07/10/2024, and most recently on 11/13/2024 with moderate apical predominant paraseptal emphysema and mild apical predominant centrilobular emphysema. Discharged from hospital on 12/04/2024 on 2 L at rest and 2 L with activity, 2 L at night per home O2 assessment and overnight oximetry. Eosinophil on 11/13/2024 is 33/uL. Echocardiogram 11/21/2024 with LVEF 55-60%, grade 1 diastolic dysfunction, normal right ventricular size and function. Mildly enlarged right atrium. Tricuspid peak gradient 42. 02/16/25: Currently patient is in no respiratory distress. He is on his baseline 2 L nasal cannula saturations 97%. He has no wheezing. Plan: I do not believe the patient is having a COPD exacerbation and given his infectious concerns I will not place him on systemic or inhaled steroids at this time. I will place him on DuoNebs q.6 hours. Goal saturation 90-94%, adjust oxygen accordingly. 02/17/25: he has no wheezes today. Plan: Continue DuoNebs q.6, goal saturation 90-94%. He is on his baseline 2 L with saturations 94%. 02/18/25: no wheezes today. Continue DuoNebs q.6, he is at his baseline 2 L nasal cannula with adequate saturations. 02/19/25: no wheezes today. On his baseline level of oxygen. Continue current management. 02/20/2025: No wheezes. Continue current management. (3) Cancer of right lung: Qualifiers: Lung location: unspecified part of lung Qualified Code(s): C34.91 - Malignant neoplasm of unspecified part of right bronchus or lung Code(s): C34.91 - Malignant neoplasm of unspecified part of right bronchus or lung Status: Acute Assessment and Plan: Squamous cell lung cancer status post right middle lobectomy on 01/23/2020 with negative lymph nodes, tumor 2.8 cm, T1c N0 M0 stage IA. He is followed by Dr. Zelaya and had a CT scan on 07/10/2024 with emphysema and no evidence of malignancy with recommendation to repeat in [address] scan on 01/18/2025 showed an enlarging right middle lobe nodule from 1.4 by 0.9 cm on 11/27/2024 to 1.9 x 1.0 cm on 01/18/2025. I discussed this result with his oncologist Dr. Quinten mccurdy and the plan was to obtain a PET scan as an outpatient to determine the best biopsy site. The PET scan was scheduled for PET scan but he could not be completed because the patient was too sick. 02/15/25: CT scan of the chest with no change in his right lower lobe nodule at 1.8 x 0.9 cm. 02/16/25: plan for outpatient PET scan to assess extent of disease and guide biopsy. Subjective Date/time seen: 02/20/25 10:07 Interval history: 02/16/2025: This is a new pulmonary consult for recurrent pneumonia. 64-year-old with a history of COPD On 2 L nasal cannula 24-7, squamous cell lung cancer status post right middle lobectomy on 01/23/2020 with negative lymph nodes, tumor 2.8 cm, T1c N0 M0 stage IA. Patient has a history of recurrent left-sided pneumonia. 11/14/2024 through 12/04/2024 he had influenza, human metapneumovirus and a urine antigen positive for pneumococcus. From 01/18/2025 through 01/25/2025 he had persistent left lower lobe consolidation with tree-in-bud infiltrates in the left upper lobe with some improvement and was treated with cefepime and azithromycin in the hospital and discharged on Levaquin. CT scan on 01 18 2025 showed an enlarging right middle lobe nodule from 1.4 by 0.9 cm on 11/27/2024 to 1.9 x 1.0 cm on 01/18/2025. I discussed this result with his oncologist Dr. Quinten mccurdy and the plan was to obtain a PET scan as an outpatient to determine the best biopsy site. The PET scan was scheduled for PET scan but he could not be completed because the patient was too sick. The patient was seen on 02/01/2025 by his PCP who said he was improving. The patient concurs that he was improving. On On 02/02/2025 he started develop worsening shortness of breath at rest, dyspnea on exertion, wheezing. One week ago he had a hot flash but did not measure his temperature. last 2 days he has had increased phlegm production which is rosenbaum and brown. 02/15/2025: Patient presented to the emergency room with worsening shortness of breath. Blood pressure was 125/71, pulse set 97, respiratory rate 29, temperature 97.9?. Initially was on 4 L nasal cannula with saturations 97%. he had decreased breath sounds in the left base. He had no wheezing. White blood cell count was 7.9, eosinophils 7.7, creatinine 0.84, D-dimer 0.78, BNP 220, ABG on 2 L 7.46/38/62. CT angiogram of the Chest showed no pulmonary embolism, l eft lower lobe consolidation with air bronchograms throughout, patchy infiltrates left upper lobe and lingula, unchanged right lower lobe nodule at 1.9 x 1.0 cm. Patient was treated with cefepime, vancomycin and doxycycline. 02/16/2025: currently the patient tells me he feels the same as yesterday. He has a cough but no phlegm. No hemoptysis. Currently is on 2 L nasal cannula with saturations 95%. He is afebrile with a white blood cell count of 6.2. Creatinine 0.81. 02/17/25: Overall the patient tells me his breathing is the same, he has a small cough with minimal phlegm and no hemoptysis. Says he has dyspnea on exertion but no rest shortness of breath He is afebrile. currently is on 2 L nasal cannula saturations 94%. White blood cell count 8.4, creatinine 0.94. Procalcitonin 0.4. 02/18/2025: Overall the patient tells me he is breathing worse at rest and with activity. He is afebrile. Currently is on 2 L nasal cannula saturations 95%. White blood cell count 11.5, creatinine 0.89. Yesterday he was positive 1.5 L. His weight today is 68.5. To command he is able to cough up to expectorations and then he is fatigued. The phlegm is thick and light green to green colored. No blood. 02/19/2025. Overall patient tells me he is doing better. Says he is breathing 50% at his normal. He has no rest shortness of breath and his dyspnea on exertion around the room was a little bit better. He is expectorating more phlegm. White blood cell count 8.8, creatinine 0.8. Currently patient is on 2 L nasal cannula saturations 94%. Yesterday he was positive 730 mL and cumulative is positive 2.7 L since admission. His weight today is 69.5. 02/20/2025: Patient is slowly improving. He tells me his breathing 65% back to his normal. He remains with cough and phlegm. His dyspnea on exertion is a little bit better. I asked him to expectorate and he produced 4 large yellow - green expectorations which were thin and easily expectorated. He is afebrile. White blood cell count 9.9, creatinine 0.81. Yesterday was positive 400 mL, cumulative he is positive 3.4 L since admission. Weight 68.5. DATA: 02/15/25: CTA chest PE protocol History: 64 years Male with . worsening pneumonia? more O2 requirement . Comparison: January 18, 2025 Findings: PULMONARY ARTERIES: No pulmonary embolus. VISUALIZED THORACIC INLET: Normal. MEDIASTINUM: Aorta/coronary arteries: Mild atheromatous disease. Heart/other: The heart is not enlarged. Lymph nodes: No mediastinal or hilar adenopathy. Calcified lymph nodes are noted. LUNGS: Pneumonia in the left lower lobe. Tree-in-bud appearance is seen in the left upper lobe and lingula suggestive of post infection changes. No pulmonary nodules or masses. No pneumothorax. Trace of left pleural effusion is seen. VISUALIZED UPPER ABDOMEN: 3.7 x 3.8 cm cyst is seen in the right kidney upper pole. Otherwise, the visualized upper abdomen is normal. MUSCULOSKELETAL: Soft tissues: The superficial soft tissues are normal. Bones: Age appropriate degenerative changes of the spine. Healing fracture in the right fourth and fifth ribs is noted. Compression fracture involving the superior endplate of T12 and L1 is noted. MRI evaluation advised. Spinal stimulator is seen in the midthoracic area. IMPRESSION: 1. Left lower lobe pneumonia which has increased compared to previous study. 2. No pulmonary embolism. 3. Tree-in-bud appearance in the left upper lobe and lingula suggestive of post infection changes. 4. Trace of left pleural effusion. 5. Compression fracture in the superior endplate of T12 and L1 most likely acute. MRI evaluation advised. 6. Healing rib fractures in the right hemithorax. Addendum: There is been no interval change in a 1.8 x 0.9 cm perihilar nodule with lobular margins in the right lower lobe which remains concerning for primary bronchogenic carcinoma and given location. Recommend further evaluation with endo bronchoscopic ultrasound-guided biopsy. Review of Systems Constitutional: Constitutional: Reports no additional constitutional complaints Eyes: Eyes: Reports no additional eye complaints ENT: Reports system reviewed and no additional complaints, except as documented Cardiovascular: Cardiovascular: Reports no additional cardiovascular complaints Respiratory: Respiratory: Reports no additional respiratory complaints Gastrointestinal: Gastrointestinal: Reports no additional gastrointestinal complaints Musculoskeletal: Musculoskeletal: Reports no additional musculoskeletal complaints Neurologic: Reports system reviewed and no additional complaints, except as documented Psychiatric: Psychiatric: Reports no additional psychiatric complaints Endocrine: Endocrine: Reports no additional endocrine complaints Hematologic/Lymphatic: Hematologic/Lymphatic: Reports no additional hematologic/lymphatic complaints Allergic/Immunologic: Allergic/Immunologic: Reports no additional allergic/immunologic complaints Exam Const: General: cooperative, healthy appearing and comfortable Orientation/consciousness: oriented to person, oriented to place and oriented to time HENMT: Head: normal to inspection Ears: hearing grossly normal bilaterally Eyes: General: appearance normal, both eyes and all related structures Neck: Neck: normal visual inspection Chest: Chest palpation & inspection: normal inspection of the chest Resp: Effort & Inspection: normal respiratory effort and able to speak in complete sentences Auscultation: no crackles, no rales, no rhonchi, no wheezes and diminished lung sounds Other: Decreased breath sounds at the bases, coarse rhonchi that improved with expectoration Cardio: Jugular venous distension: no JVD GI: Inspection: normal to inspection Skin: General skin exam: normal color Neuro: General: oriented to person, oriented to place and oriented to time Extrem: General: normal to inspection Psych: Appearance: grossly normal Objective Data Vital Signs Vital Signs: Vital Signs - 24 hr 02/19/25 14:00 02/19/25 20:00 02/19/25 20:49 Temperature 36.3 C L 36.6 C Pulse Rate 72 77 Respiratory Rate 18 16 Blood Pressure 117/73 109/64 Pulse Oximetry 96 95 97 Oxygen Delivery Nasal Cannula Oxygen Flow Rate 2 02/19/25 22:18 02/19/25 22:34 02/20/25 03:14 Temperature Pulse Rate 75 78 Respiratory Rate 20 18 Blood Pressure Pulse Oximetry 95 Oxygen Delivery Nasal Cannula Oxygen Flow Rate 2 02/20/25 06:00 02/20/25 08:18 05/20/25 08:18 Temperature 36.2 C L Pulse Rate 78 82 Respiratory Rate 18 18 Blood Pressure 117/66 Pulse Oximetry 97 94 Oxygen Delivery Nasal Cannula Oxygen Flow Rate 2 02/20/25 08:25 Temperature Pulse Rate 86 Respiratory Rate 18 Blood Pressure Pulse Oximetry Oxygen Delivery Oxygen Flow Rate Intake/Output Intake/Output: Intake & Output 02/17/25 02/18/25 02/19/25 02/20/25 23:59 23:59 23:59 23:59 Intake Total 990 1030 840 840 Output Total 300 300 425 600 Balance 690 730 415 240 Meds/Results Medications: Active Medications Generic Name Dose Route Start Last Admin Trade Name Freq PRN Reason Stop Dose Admin Acetaminophen 650 mg 02/18/25 22:00 02/20/25 09:13 Acetaminophen 325 Mg Tablet PO 650 mg Q6H DANE Administration Acetylcysteine 200 mg 02/16/25 20:00 02/20/25 08:18 Acetylcysteine 20% Inhal Soln 800 Mg/4 Ml Vial INHALATION Not Given Q6HRT DANE Albuterol/Ipratropium 3 ml 02/16/25 20:00 02/20/25 08:17 Ipratropium 0.5 Mg/Albuterol Sulfate 2.5 Mg Ampul.Neb 3 Ml INHALATION 3 ml Q6HRT DANE Administration Aspirin 81 mg 02/16/25 09:00 02/19/25 08:50 Aspirin 81 Mg Enteric Tablet PO 81 mg DAILY DANE Administration Bupropion HCl 300 mg 02/16/25 09:00 02/20/25 09:14 Bupropion Hcl Xl (24 Hr) 150 Mg Tabcr PO 300 mg DAILY DANE Administration Cyclobenzaprine HCl 10 mg 02/18/25 22:00 02/20/25 05:04 Cyclobenzaprine Hcl 10 Mg Tablet PO 10 mg Q8H DANE Administration Enoxaparin Sodium 40 mg 02/16/25 09:00 02/20/25 09:14 Enoxaparin 40 Mg/0.4 Ml Syringe SUB-Q 40 mg DAILY DNAE Administration Ferrous Sulfate 325 mg 02/16/25 09:00 02/20/25 09:14 Ferrous Sulfate [address] BY MOUTH 325 mg DAILY DANE Administration Guaifenesin 1,200 mg 02/16/25 21:00 02/20/25 09:12 Guaifenesin 12 Hr 600 Mg Tabcr PO 1,200 mg Q12HR DANE Administration Levofloxacin/Dextrose 750 mg in 150 mls @ 100 mls/hr 02/16/25 15:00 02/19/25 15:24 Levaquin 750 Mg/D5w 150 Ml IVPB 100 mls/hr Q24H DANE Administration Meropenem 1 gm in 100 mls @ 200 mls/hr 02/16/25 19:00 02/20/25 03:59 IVPB 150 mls/hr Q8H DANE Administration Levetiracetam 250 mg/ 750 mg 02/16/25 09:00 02/20/25 09:13 Levetiracetam 500 mg PO 750 mg Q12HR DANE Administration Lidocaine 1 patch 02/16/25 09:00 02/20/25 09:14 Lidocaine 5% Patch TOPICAL 1 patch DAILY DANE Administration Lorazepam 0.5 mg 02/15/25 18:35 02/17/25 16:14 Lorazepam (*Crx) 0.5 Mg Tablet PO 0.5 mg TID PRN Administration anxiety Midodrine 2.5 mg 02/16/25 09:00 02/20/25 09:14 Midodrine Hcl 2.5 Mg Tablet PO 2.5 mg BID DANE Administration Oxycodone HCl 10 mg 02/17/25 13:00 02/20/25 03:59 Oxycodone (*Crx) 5 Mg/5 Ml Oral Soln Ir PO 10 mg Q4HR DANE Administration Pantoprazole Sodium 40 mg 02/16/25 09:00 02/20/25 09:14 Pantoprazole 40 Mg Tablet PO 40 mg Q12HR DANE Administration Paroxetine HCl 40 mg 02/16/25 09:00 02/20/25 09:14 Paroxetine 20 Mg Tablet PO 40 mg DAILY DANE Administration Pregabalin 150 mg 02/16/25 09:00 02/20/25 09:13 Pregabalin (*Crx) 75 Mg Capsule PO 150 mg DAILY DANE Administration Trazodone HCl 100 mg 02/15/25 21:00 02/19/25 20:20 Trazodone Hcl 50 Mg Tablet PO 100 mg QHS DANE Administration Vitamin B Complex 1 cap 02/16/25 09:00 02/20/25 09:13 Vitamin B Complex Capsule PO 1 cap DAILY DANE Administration Radiology Results: ITS Impressions Chest CTA 02/15/25 15:12 IMPRESSION: 1. Left lower lobe pneumonia which has increased compared to previous study. 2. No pulmonary embolism. 3. Tree-in-bud appearance in the left upper lobe and lingula suggestive of post infection changes. 4. Trace of left pleural effusion. 5. Compression fracture in the superior endplate of T12 and L1 most likely acute. MRI evaluation advised. 6. Healing rib fractures in the right hemithorax. ADDENDUM: 02/16/25 1252 ADDENDUM: There is been no interval change in a 1.8 x 0.9 cm perihilar nodule with lobular margins in the right lower lobe which remains concerning for primary bronchogenic carcinoma and given location. Recommend further evaluation with endo bronchoscopic ultrasound-guided biopsy. Chest X-Ray 02/16/25 15:59 Impression: 1: Progression of bibasilar airspace disease, consistent with pneumonia. Labs Labs: Laboratory Results - last 24 hr 02/16/25 02/16/25 02/20/25 10:46 21:58 05:46 WBC 9.9 RBC 4.05 L Hgb 10.1 L Hct 34.5 L MCV 85.2 MCH 24.9 L MCHC 29.3 L RDW 17.0 H Plt Count 277 MPV 9.7 Sodium 139 Potassium 3.7 Chloride 103 Carbon Dioxide 32 H Anion Gap 4 BUN 13 Creatinine 0.81 Estim Creat Clear Calc 77 Estimated GFR > 60 Glucose 83 Calcium 8.0 L Ur L.pneumophila Ag Not detected Urine Pneumococcal Ag Not detected
[2025-02-20] MEDS: ASPIRIN 81 MG ENTERIC TABLET PO (12:21)
--- NOTE | 2025-02-20 12:27 | P.PNIM_ITS ---
Progress Note: A&P Assessment and Plan (1) Sepsis: Qualifiers: Sepsis type: sepsis due to unspecified organism Sepsis acute organ dysfunction status: without acute organ dysfunction Qualified Code(s): A41.9 - Sepsis, unspecified organism Code(s): A41.9 - Sepsis, unspecified organism Status: Acute Assessment and Plan: - meets SIRS criteria: HR, RR. No leukocytosis. History of hypotension on midodrine, hemodynamically stable. pneumonia procalcitonin neg - received IVf continue Meropenem and leaquin. follow sputum culture result, resp PCR. - suspected source: Pneumonia - blood cultures drawn on 02/15, follow sputum culture pending (2) Pneumonia: Qualifiers: Laterality: unspecified laterality Lung location: unspecified part of lung Pneumonia type: due to unspecified organism Qualified Code(s): J18.9 - Pneumonia, unspecified organism Code(s): J18.9 - Pneumonia, unspecified organism Status: Acute Assessment and Plan: - CXR: Persistent bilateral airspace disease, left greater than right, consistent with pneumonia. - Chest CTA: 1. Left lower lobe pneumonia which has increased compared to previous study. 2. No pulmonary embolism. 3. Tree-in-bud appearance in the left upper lobe and lingula suggestive of post infection changes. 4. Trace of left pleural effusion. 5. Compression fracture in the superior endplate of T12 and L1 most likely acute. MRI evaluation advised. 6. 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 pulmonary team on board (3) COPD (chronic obstructive pulmonary disease): Qualifiers: COPD type: unspecified COPD Qualified Code(s): J44.9 - Chronic obstructive pulmonary disease, unspecified Code(s): J44.9 - Chronic obstructive pulmonary disease, unspecified Status: Acute Assessment and Plan: [facility] continue [facility] medications - no current physical exam findings were subjective symptoms suggestive of COPD exacerbation, will hold on steroid course (4) Squamous cell carcinoma: Status: Acute Assessment and Plan: - hx of squamous cell carcinoma of the lung, s/p lobectomy - last follow-up with oncologist, Nathalie MANDEL, on 01/18/25. Still needs outpatient PET scan due to possibility of recurrence in the right lower lobe, however unable to do imaging due to active infection previously. (5) Iron deficiency anemia: Qualifiers: Iron deficiency anemia type: unspecified iron deficiency Qualified Code (s): D50.9 - Iron deficiency anemia, unspecified Code(s): D50.9 - Iron deficiency anemia, unspecified Status: Acute Assessment and Plan: - Hgb 13.0, previously 12.3 on 02/09 - Hx: HONG - transfuse if <7 - monitor (6) Hypotension: Qualifiers: Hypotension type: unspecified hypotension type Qualified Code(s): I95.9 - Hypotension, unspecified Code(s): I95.9 - Hypotension, unspecified Status: Acute Assessment and Plan: - chronic, currently 107/61 - continue home medications: Midodrine - monitor (7) Seizure: Code(s): R56.9 - Unspecified convulsions Status: Acute Assessment and Plan: - chronic, absent type - continue home medications: Keppra (8) Moderate malnutrition: Code(s): E44.0 - Moderate protein-calorie malnutrition Status: Acute Assessment and Plan: Dietitian onboard Plan Diet: Heart healthy GI Prophylaxis: Not currently indicated DVT Prophylaxis: Lovenox SQ Lines/Tubes: Peripheral IV Code Status: full code Subjective Date/time seen: 02/20/25 12:27 Interval history: per HPI: 64 y/o M with PMH of absence seizure, 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 The patient presents here from home via EMS on 02/15 for further evaluation of shortness of breath. He reports onset approximately 1 week ago but has significantly worsened 1 hour prior to arrival to the emergency department. Shortness of breath is accompanied by fatigue, cough. He denies nausea, vomiting, diarrhea, chest pain. Per chart review, the patient arrived with audible rhonchi, wheezing, and was diaphoretic and pale. While in route to the hospital he received a DuoNeb x2. He arrived 97% on 4L nasal cannula. At baseline he wears supplemental O2. Of note, the patient was recently evaluated on 02/09/2025 at [place] [facility]. He was found to have pneumonia and was started on azithromycin and cefdinir. He reports completion/noncompliance with this antibiotic course. The patient also had 2 semi-recent admissions. The 1st from 11/14/24 to 12/04/2024 and 2nd from 01/20/2025 to 01/25/2025. During the lengthy admission from November to December he was diagnosed with Flu A, human metapneumovirus, and urine test was positive for pneumococcal antigen. Imaging showed left lower lobe postobstructive pneumonia which was likely caused by multiple infectious agents per pulmonology. He was treated with cefepime and Levaquin. Patient was referred back to his oncologist for follow-up on a right 1.4 cm nodule seen in the right lower lobe which was suspicious for recurrence of lung cancer. Patient attempted to follow-up with his oncologist on 01/18, however due to appearance he was referred back to the ER for further evaluation due to suspicion for recurrence of pneumonia. He was placed on cefpodoxime and azithromycin. He had an return to the ER 2 days later on 01/20 due to continued shortness of breath. He was then admitted from 01/20 - 01/25. He was found to have recurrence of bilateral/worsening pneumonia and was treated with azithromycin and cefepime and transition to oral Levaquin on 01/23. Now returning today on 02/09 with shortness of breath and imaging showing recurrence of pneumonia. Initial VS at presentation: 97.9? F, HR 97, RR 29, 125/71, and 97% on 4L NC. ED workup showed: No leukocytosis, hemoglobin 13.0, D-dimer elevated, ABG showed a pH of 7.456/O2 61.7/O2 saturation 92.9% on 2L, no significant electrolyte derangements, renal function within normal limits, BNP 220, nasal MRSA negative. CXR showed persistent bilateral airspace disease, left greater than right, consistent with pneumonia. Chest CTA showed a left lower lobe pneumonia which has increased compared to previous study, no PE, tree-in-bud appearance in the left upper lobe and lingula suggestive of post infection changes, trace left pleural effusion, compression fracture in the superior endplate of T12 and L1 most likely acute, healing rib fracture in the right hemothorax. 02/16/25 Patient was seen and examined at bedside. he is feeling slightly better. denies cough or fever. has been having chills at home. CT concerning for pneumonia. WBC WNL. procalcitonin neg. pulmonary team has been consulted. continue with IV Abx. 02/17/25 patient was seen and examined at bedside. feeling the same as yesterday. pulmonary team on board. continue Meropenem and Levaquin. follow sputum culture result, resp PCR. 02/19/25 Patient was seen and examined at bedside. he is feeling tired. breathing the same. denies chest pain, abd pain, Nausea vomiting. continue IV Abx. will follow PCr and culture results. reviewed pulmonary team recommendation. 02/20/25 Patient was seen and examined at bedside. he is feeling better. his breathing is better.. denies any chest pain,, abd pain, nausea or vomiting. his lung sounds better. discussed with pulmonary team. continue meropenem and Levaquin. CXr tomorrow morning. Dc Mucomyst. follow culture results. Review of Systems Review of Systems: All systems reviewed & are unremarkable except as noted in HPI and below Exam Narrative: left side significantly diminished. chronically ill appearing. Const: General: comfortable and no acute distress Other: , male, chronically ill-appearing HENMT: Face/Nose/Sinus: Normal nares present Mouth: Yes moist mucous membranes Eyes: General: appearance normal, both eyes and all related structures Scle ra: sclerae normal Pupils: Equal, round and reactive pupils present EOM: EOMs intact bilaterally Resp: Other: Mild dyspnea without accessory muscle use. Significantly diminished lung sounds in the left lower and left mid lung almaguer. Right clear to auscultation. No wheezing. Cardio: Rate: regular rate Rhythm: regular rhythm Other: S1-S2 present without murmur, rub, ectopy GI: Other: Abdomen soft, nondistended, nontender. Normoactive bowel sounds in all quadrants. Skin: General skin exam: normal color and no rashes or lesions noted Wounds: no wounds Neuro: Cranial nerves: Yes Equal, round and reactive pupils present Speech: normal speech Motor exam (neuro): 5/5 motor strength present throughout Sensory Exam: normal sensation Other: A&O x4 Extrem: General: normal to inspection Psych: Mental Status: mental status grossly normal Affect: Sad affect present Other: Good insight and judgment, very pleasant Objective Data Vital Signs Vital Signs: Vital Signs - 24 hr 02/19/25 14:00 02/19/25 20:00 02/19/25 20:49 Temperature 97.3 F L 97.8 F Pulse Rate 72 77 Respiratory Rate 18 16 Blood Pressure 117/73 109/64 Pulse Oximetry 96 95 97 Oxygen Delivery Nasal Cannula Oxygen Flow Rate 2 02/19/25 22:18 02/19/25 22:34 02/20/25 03:14 Temperature Pulse Rate 75 78 Respiratory Rate 20 18 Blood Pressure Pulse Oximetry 95 Oxygen Delivery Nasal Cannula Oxygen Flow Rate 2 02/20/25 06:00 02/20/25 08:18 02/20/25 08:18 Temperature 97.1 F L Pulse Rate 78 82 Respiratory Rate 18 18 Blood Pressure 117/66 Pulse Oximetry 97 94 Oxygen Delivery Nasal Cannula Oxygen Flow Rate 2 02/20/25 08:25 Temperature Pulse Rate 86 Respiratory Rate 18 Blood Pressure Pulse Oximetry Oxygen Delivery Oxygen Flow Rate Intake/Output Intake/Output: Intake & Output 02/17/25 02/18/25 02/19/25 02/20/25 23:59 23:59 23:59 23:59 Intake Total 990 1030 840 940 Output Total 300 300 425 600 Balance 690 730 415 340 Meds/Results Medications: Active Medications Generic Name Dose Route Start Last Admin Trade Name Freq PRN Reason Stop Dose Admin Acetaminophen 650 mg 02/18/25 22:00 02/20/25 09:13 Acetaminophen 325 Mg Tablet PO 650 mg Q6H DANE Administration Albuterol/Ipratropium 3 ml 02/16/25 20:00 02/20/25 08:17 Ipratropium 0.5 Mg/Albuterol Sulfate 2.5 Mg Ampul.Neb 3 Ml INHALATION 3 ml Q6HRT DANE Administration Aspirin 81 mg 02/16/25 09:00 02/20/25 12:21 Aspirin 81 Mg Enteric Tablet PO 81 mg DAILY DANE Administration Bupropion HCl 300 mg 02/16/25 09:00 02/20/25 09:14 Bupropion Hcl Xl (24 Hr) 150 Mg Tabcr PO 300 mg DAILY DANE Administration Cyclobenzaprine HCl 10 mg 02/18/25 22:00 02/20/25 05:04 Cyclobenzaprine Hcl 10 Mg Tablet PO 10 mg Q8H DANE Administration Enoxaparin Sodium 40 mg 02/16/25 09:00 02/20/25 09:14 Enoxaparin 40 Mg/0.4 Ml Syringe SUB-Q 40 mg DAILY DANE Administration Ferrous Sulfate 325 mg 02/16/25 09:00 02/20/25 09:14 Ferrous Sulfate [address] BY MOUTH 325 mg DAILY DANE Administration Guaifenesin 1,200 mg 02/16/25 21:00 02/20/25 09:12 Guaifenesin 12 Hr 600 Mg Tabcr PO 1,200 mg Q12HR DANE Administration Levofloxacin/Dextrose 750 mg in 150 mls @ 100 mls/hr 02/16/25 15:00 02/19/25 15:24 Levaquin 750 Mg/D5w 150 Ml IVPB 100 mls/hr Q24H DANE Administration Meropenem 1 gm in 100 mls @ 200 mls/hr 02/16/25 19:00 02/20/25 12:21 IVPB 150 mls/hr Q8H DANE Administration Levetiracetam 250 mg/ 750 mg 02/16/25 09:00 02/20/25 09:13 Levetiracetam 500 mg PO 750 mg Q12HR DANE Administration Lidocaine 1 patch 02/16/25 09:00 02/20/25 09:14 Lidocaine 5% Patch TOPICAL 1 patch DAILY DANE Administration Lorazepam 0.5 mg 02/15/25 18:35 02/17/25 16:14 Lorazepam (*Crx) 0.5 Mg Tablet PO 0.5 mg TID PRN Administration anxiety Midodrine 2.5 mg 02/16/25 09:00 02/20/25 09:14 Midodrine Hcl 2.5 Mg Tablet PO 2.5 mg BID DANE Administration Oxycodone HCl 10 mg 02/17/25 13:00 02/20/25 12:07 Oxycodone (*Crx) 5 Mg/5 Ml Oral Soln Ir PO 10 mg Q4HR DANE Administration Pantoprazole Sodium 40 mg 02/16/25 09:00 02/20/25 09:14 Pantoprazole 40 Mg Tablet PO 40 mg Q12HR DANE Administration Paroxetine HCl 40 mg 02/16/25 09:00 02/20/25 09:14 Paroxetine 20 Mg Tablet PO 40 mg DAILY DANE Administration Pregabalin 150 mg 02/16/25 09:00 02/20/25 09:13 Pregabalin (*Crx) 75 Mg Capsule PO 150 mg DAILY DANE Administration Trazodone HCl 100 mg 02/15/25 21:00 02/19/25 20:20 Trazodone Hcl 50 Mg Tablet PO 100 mg QHS DANE Administration Vitamin B Complex 1 cap 02/16/25 09:00 02/20/25 09:13 Vitamin B Complex Capsule PO 1 cap DAILY DANE Administration Radiology Results: ITS Impressions Chest CTA 02/15/25 15:12 IMPRESSION: 1. Left lower lobe pneumonia which has increased compared to previous study. 2. No pulmonary embolism. 3. Tree-in-bud appearance in the left upper lobe and lingula suggestive of post infection changes. 4. Trace of left pleural effusion. 5. Compression fracture in the superior endplate of T12 and L1 most likely acute. MRI evaluation advised. 6. Healing rib fractures in the right hemithorax. ADDENDUM: 02/16/25 1252 ADDENDUM: There is been no interval change in a 1.8 x 0.9 cm perihilar nodule with lobular margins in the right lower lobe which remains concerning for primary bronchogenic carcinoma and given location. Recommend further evaluation with endo bronchoscopic ultrasound-guided biopsy. Chest X-Ray 02/16/25 15:59 Impression: 1: Progression of bibasilar airspace disease, consistent with pneumonia. Labs Labs: Laboratory Results - last 24 hr 02/16/25 02/16/25 02/20/25 10:46 21:58 05:46 WBC 9.9 RBC 4.05 L Hgb 10.1 L Hct 34.5 L MCV 85.2 MCH 24.9 L MCHC 29.3 L RDW 17.0 H Plt Count 277 MPV 9.7 Sodium 139 Potassium 3.7 Chloride 103 Carbon Dioxide 32 H Anion Gap 4 BUN 13 Creatinine 0.81 Estim Creat Clear Calc 77 Estimated GFR > 60 Glucose 83 Calcium 8.0 L Ur L.pneumophila Ag Not detected Urine Pneumococcal Ag Not detected Quality VTE Prophylaxis VTE prophylaxis: pharmacologic ordered
[2025-02-20] MEDS: levoFLOXacin 750 MG/D5W 150 ML 750 MG/150 ML BAG 100 MG IVPB (15:17)
[2025-02-20 17:34] LABS: Mycoplasma IgM Antibody Titer. 7 U/mL
[2025-02-20] MEDS: traZODone HCL 50 MG TABLET 100 MG PO (21:00)
[2025-02-21] VITALS (11 sets, daily range): BP systolic 105–140; BP diastolic 61–81; PULSE 58–103; RESP 12–20; TEMP 36.1–36.6; O2SAT 91–97
[2025-02-21] MEDS: oxyCODONE (*CRX) 5 MG/5 ML ORAL SOLN IR 10 MG PO ×6 (01:48→20:37)
[2025-02-21] MEDS: IPRATROPIUM 0.5 MG/ALBUTEROL SULFATE 2.5 MG AMPUL.NEB 3 ML INHALATION ×3 (01:53→19:56)
[2025-02-21] MEDS: MEROPENEM 1 GM/NS 100 ML 1 GM/100 ML BAG IVPB ×3 (02:00→17:35)
[2025-02-21] MEDS: CYCLOBENZAPRINE HCL 10 MG TABLET PO ×3 (05:34→23:24)
[2025-02-21 06:30] LABS: Hematocrit 37.7 % (42.0-52.0); Hemoglobin 11.4 g/dL (14.0-18.0); Mean Corpuscular HGB Conc 30.2 g/dl (32-36); Mean Corpuscular Hemoglobin 24.8 pg (26-34); Mean Corpuscular Volume 82.1 fl (80-100); Mean Platelet Volume 9.6 fl (7.4-10.4); Platelet Count Result 327 k/mm3 (150-375); Red Blood Count 4.59 M/mm3 (4.6-6.20); Red Cell Distribution Width 16.8 % (11.5-14.5); White Blood Count 8.6 K/mm3 (4.5-10.0)
[2025-02-21 06:45] LABS: Anion Gap 5 mmol/L (4-12); Blood Urea Nitrogen 12 mg/dL (9-20); Calcium 8.5 mg/dL (8.4-10.2); Carbon Dioxide 33 mmol/L (22-30); Chloride 102 mmol/L (98-107); Estimated CRCL calculation 78 ml/min; Estimated Glomerular Filt Rate > 60; Glucose 83 mg/dL (65-110); Potassium 3.8 mmol/L (3.4-5.0); Sodium 140 mmol/L (137-145)
[2025-02-21 07:48] LABS: NT Pro B Type Natriuretic Pept 78 pg/mL (19.9-100)
[2025-02-21] MEDS: ASPIRIN 81 MG ENTERIC TABLET PO (09:02)
[2025-02-21] MEDS: PANTOPRAZOLE 40 MG TABLET PO ×2 (09:02→20:38)
[2025-02-21] MEDS: levETIRAcetam Tablet 250 MG, levETIRAcetam Tablet 500 MG 750 MG PO ×2 (09:02→20:37)
[2025-02-21] MEDS: VITAMIN B COMPLEX CAPSULE 1 CAP PO (09:02)
[2025-02-21] MEDS: FERROUS SULFATE 325 MG TABLET DR BY MOUTH (09:03)
[2025-02-21] MEDS: MIDODRINE HCL 2.5 MG TABLET PO ×2 (09:03→17:00)
[2025-02-21] MEDS: ENOXAPARIN 40 MG/0.4 ML SYRINGE SUB-Q (09:03)
[2025-02-21] MEDS: buPROPion HCL XL (24 HR) 150 MG TABCR 300 MG PO (09:03)
[2025-02-21] MEDS: PREGABALIN (*CRX) 75 MG CAPSULE 150 MG PO (09:03)
[2025-02-21] MEDS: guaiFENesin 12 HR 600 MG TABCR 1200 MG PO ×2 (09:03→20:37)
[2025-02-21] MEDS: PARoxetine 20 MG TABLET 40 MG PO (09:03)
--- NOTE | 2025-02-21 09:22 | P.PNPL_ITS ---
Progress Note: A&P Assessment and Plan (1) Pneumonia: Qualifiers: Laterality: unspecified laterality Lung location: unspecified part of lung Pneumonia type: due to unspecified organism Qualified Code(s): J18.9 - Pneumonia, unspecified organism Code(s): J18.9 - Pneumonia, unspecified organism Status: Acute Assessment and Plan: Patient has a history of recurrent left-sided pneumonia. 11/14/2024 through 12/04/2024 he had influenza, human metapneumovirus and a urine antigen positive for pneumococcus with CT scan on 11/24/2024 with nodular and tree-in-bud infiltrates and higher left lung, left lower lobe consolidation.. From 01/18/2025 through 01/25/20[address] he had pneumonia with CT scan 01/18/25 with persistent but improved left lower lobe consolidation with tree-in-bud infiltrates in the left upper lobe from 11/24/24 and was treated with cefepime and azithromycin in the hospital and discharged on Levaquin. On 02/09 patient was prescribed cefdinir and azithromycin as an outpatient. CT scan 02/15/2025 demonstrates tree-in-bud infiltrates left upper lobe and lingula no change from 01/18/2025 and consolidation left lower lobe increased from 01/18/2025 and similar appearance from 11/24/2024. MRSA nasal swab negative. COVID, influenza, RSV RT T PCR negative. 02/16/25: Plan: Current infiltrates have air bronchograms so I doubt there is not complete collapse from a proximal mucus plug or endobronchial lesion. Will treat patient for pneumonia and will change to meropenem and Levaquin. I will send urine for Legionella, urine for pneumococcal antigen, mycoplasma IgM and respiratory pathogen panel. I will treat aggressively to help him expectorate with guaifenesin 1200 mg p.o. b.i.d., Mucomyst 200 q.6, Vest therapy, Cornet flutter valve. I will check a procalcitonin on 02/17/2025. 02/17/25: Overall the patient tells me his breathing is the same, he has a small cough with minimal phlegm and no hemoptysis. Says he has dyspnea on exertion but no rest shortness of breath He is afebrile. currently is on 2 L nasal cannula saturations 94%. White blood cell count 8.4, creatinine 0.94. Procalcitonin 0.4. Plan: continue meropenem and Levaquin, both day 2. I was able to send a sputum for Gram stain and culture this morning. I talked to the nurse about collecting the respiratory pathogen panel. Urine Legionella, urine pneumococcal and mycoplasma IgM pending. Continue to help him expectorate with guaifenesin 1200 mg p.o. b.i.d., Mucomyst 200 q.6, Vest therapy, Cornet flutter valve. 02/18/2025: Overall the patient tells me he is breathing worse at rest and with activity. He is afebrile. Currently is on 2 L nasal cannula saturations 95%. White blood cell count 11.5, creatinine 0.89. Yesterday he was positive 1.5 L. His weight today is 68.5. To command he is able to cough up to expe ctorations and then he is fatigued. The phlegm is thick and light green to green colored. No blood. Plan: continue meropenem and Levaquin, both day 3. sputum for Gram stain and culture pending. Respiratory pathogen panel, Urine Legionella, urine pneumococcal and mycoplasma IgM pending. Continue to help him expectorate with DuoNebs q.6, guaifenesin 1200 mg p.o. b.i.d., Mucomyst 200 q.6, Vest therapy, Cornet flutter valve. 02/19/2025. Overall patient tells me he is doing better. Says he is breathing 50% at his normal. He has no rest shortness of breath and his dyspnea on exertion around the room was a little bit better. He is expectorating more phlegm. White blood cell count 8.8, creatinine 0.8. Currently patient is on 2 L nasal cannula saturations 94%. Yesterday he was positive 730 mL and cumulative is positive 2.7 L since admission. His weight today is 69.5. Plan: Slow improvement on meropenem and Levaquin, both day 4. sputum for Gram stain and culture pending. Respiratory pathogen panel, Urine Legionella, urine pneumococcal and mycoplasma IgM pending. Continue to help him expectorate with DuoNebs q.6, guaifenesin 1200 mg p.o. b.i.d., Mucomyst 200 q.6, Vest therapy, Cornet flutter valve. 02/20/2025: Patient is slowly improving. He tells me his breathing 65% back to his normal. He remains with cough and phlegm. His dyspnea on exertion is a little bit better. I asked him to expectorate and he produced 4 large yellow - green expectorations which were thin and easily expectorated. He is afebrile. White blood cell count 9.9, creatinine 0.81. Yesterday was positive 400 mL, cumulative he is positive 3.4 L since admission. Weight 68.5. Plan: Slow improvement on meropenem and Levaquin, both day 5. sputum for Gram stain and culture pending. Respiratory pathogen panel pending, Urine Legionella Negative, urine pneumococcal negative and mycoplasma IgM pending. Continue to help him expectorate with DuoNebs q.6, guaifenesin 1200 mg p.o. b.i.d., Mucomyst 200 q.6 completed 72 hours of therapy will discontinue Mucomyst today., Vest therapy, Cornet flutter valve. I will get a CXR on 02/21/2025. 02/21/2025. Patient tells me he is a little bit better but states he is still only 65% back to his baseline. His dyspnea on exertion is a little bit better. 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 He was able to expectorate phlegm this morning. He is afebrile. White blood cell count 8.6, creatinine 0.79, yesterday he was 1.1 L positive cumulative he is positive 4.2 L. His weight is 68.1 increased from 65.7. His BNP is 78. His chest x-ray shows unchanged left lower lobe consolidation with increased interstitial markings on the right. Plan: Slow improvement on meropenem and Levaquin, both day 6. sputum for culture With normal estefany and yeast which I will have identified. Respiratory pathogen panel pending, Urine Legionella Negative, urine pneumococcal negative and mycoplasma IgM 7, normal. Continue to help him expectorate with DuoNebs q.6, guaifenesin 1200 mg p.o. b.i.d., Vest therapy, Cornet flutter valve. chest x-ray with increased interstitial markings on the right his weight is increased and he is 4.2 L positive I will give him 20 mg IV Lasix q.day. Discussed with Christin Billingsley, will follow with you. (2) COPD (chronic obstructive pulmonary disease): Qualifiers: COPD type: unspecified COPD Qualified Code(s): J44.9 - Chronic obstructive pulmonary disease, unspecified Code(s): J44.9 - Chronic obstructive pulmonary disease, unspecified Status: Acute Assessment and Plan: GOLD grade 2 group E COPD Patient with a 50 pack year tobacco use, quit 11/13/2024. Alpha 1 anti trypsin genotype CM. Alpha 1 anti trypsin level 236, normal. 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 He retired 4-5 years ago. PFTs on 01/20/2021 with a moderately severe obstructive abnormality with an FEV1 of 1.71 L, 50% predicted, ratio 52%, normal lung volumes, moderately decreased DLCO that normalized when corrected for alveolar volume. CT scan of the chest with emphysema on 02/07/2007, 06/27/2021, 02/06/2022, 07/10/2024, and most recently on 11/13/2024 with moderate apical predominant paraseptal emphysema and mild apical predominant cent rilobular emphysema. Discharged from hospital on 12/04/2024 on 2 L at rest and 2 L with activity, 2 L at night per home O2 assessment and overnight oximetry. Eosinophil on 11/13/2024 is 33/uL. Echocardiogram 11/21/2024 with LVEF 55-60%, grade 1 diastolic dysfunction, normal right ventricular size and function. Mildly enlarged right atrium. Tricuspid peak gradient 42. 02/16/25: Currently patient is in no respiratory distress. He is on his baseline 2 L nasal cannula saturations 97%. He has no wheezing. Plan: I do not believe the patient is having a COPD exacerbation and given his infectious concerns I will not place him on systemic or inhaled steroids at this time. I will place him on DuoNebs q.6 hours. Goal saturation 90-94%, adjust oxygen accordingly. 02/17/25: he has no wheezes today. Plan: Continue DuoNebs q.6, goal saturation 90-94%. He is on his baseline 2 L with saturations 94%. 02/18/25: no wheezes today. Continue DuoNebs q.6, he is at his baseline 2 L nasal cannula with adequate saturations. 02/19/25: no wheezes today. On his baseline level of oxygen. Continue current management. 02/20/2025: No wheezes. Continue current management. 02/21/25: no wheezes. Continue DuoNebs q.6 and 2 L nasal cannula oxygen. (3) Cancer of right lung: Qualifiers: Lung location: unspecified part of lung Qualified Code(s): C34.91 - Malignant neoplasm of unspecified part of right bronchus or lung Code(s): C34.91 - Malignant neoplasm of unspecified part of right bronchus or lung Status: Acute Assessment and Plan: Squamous cell lung cancer status post right middle lobectomy on 01/23/2020 with negative lymph nodes, tumor 2.8 cm, T1c N0 M0 stage IA. He is followed by Dr. Zelaya and had a CT scan on 07/10/2024 with emphysema and no evidence of malignancy with recommendation to repeat in [address] scan on 01/18/2025 showed an enlarging right middle lobe nodule from 1.4 by 0.9 cm on 11/27/2024 to 1.9 x 1.0 cm on 01/18/2025. I discussed this result with his oncologist Dr. Quinten mccurdy and the plan was to obtain a PET scan as an outpatient to determine the best biopsy site. The PET scan was scheduled for PET scan but he could not be completed because the patient was too sick. 02/15/25: CT scan of the chest with no change in his right lower lobe nodule at 1.8 x 0.9 cm. 02/16/25: plan for outpatient PET scan to assess extent of disease and guide biopsy. Subjective Date/time seen: 02/21/25 09:22 Interval history: 02/16/2025: This is a new pulmonary consult for recurrent pneumonia. 64-year-old with a history of COPD On 2 L nasal cannula 24-7, squamous cell lung cancer status post right middle lobectomy on 01/23/2020 with negative lymph nodes, tumor 2.8 cm, T1c N0 M0 stage IA. Patient has a history of recurrent left-sided pneumonia. 11/14/2024 through 12/04/2024 he had influenza, human metapneumovirus and a urine antigen positive for pneumococcus. From 01/18/2025 through 01/25/2025 he had persistent left lower lobe consolidation with tree-in-bud infiltrates in the left upper lobe with some improvement and was treated with cefepime and azithromycin in the hospital and discharged on Levaquin. CT scan on 01 18 2025 showed an enlarging right middle lobe nodule from 1.4 by 0.9 cm on 11/27/2024 to 1.9 x 1.0 cm on 01/18/2025. I discussed this result with his oncologist Dr. Quinten mccurdy and the plan was to obtain a PET scan as an outpatient to determine the best biopsy site. The PET scan was scheduled for PET scan but he could not be completed because the patient was too sick. The patient was seen on 02/01/2025 by his PCP who said he was improving. The patient concurs that he was improving. On On 02/02/2025 he started develop worsening shortness of breath at rest, dyspnea on exertion, wheezing. One week ago he had a hot flash but did not measure his temperature. last 2 days he has had increased phlegm production which is rosenbaum and brown. 02/15/2025: Patient presented to the emergency room with worsening shortness of breath. Blood pressure was 125/71, pulse set 97, respiratory rate 29, temperature 97.9?. Initially was on 4 L nasal cannula with saturations 97%. he had decreased breath sounds in the left base. He had no wheezing. White blood cell count was 7.9, eosinophils 7.7, creatinine 0.84, D-dimer 0.78, BNP 220, ABG on 2 L 7.46/38/62. CT angiogram of the Chest showed no pulmonary embolism, left lower lobe consolidation with air bronchograms throughout, patchy infiltrates left upper lobe and lingula, unchanged right lower lobe nodule at 1.9 x 1.0 cm. Patient was treated with cefepime, vancomycin and doxycycline. 02/16/2025: currently the patient tells me he feels the same as yesterday. He has a cough but no phlegm. No hemoptysis. Currently is on 2 L nasal cannula with saturations 95%. He is afebrile with a white blood cell count of 6.2. Creatinine 0.81. 02/17/25: Overall the patient tells me his breathing is the same, he has a small cough with minimal phlegm and no hemoptysis. Says he has dyspnea on exertion but no rest shortness of breath He is afebrile. currently is on 2 L nasal cannula saturations 94%. White blood cell count 8.4, creatinine 0.94. Procalcitonin 0.4. 02/18/2025: Overall the patient tells me he is breathing worse at rest and with activity. He is afebrile. Currently is on 2 L nasal cannula saturations 95%. White blood cell count 11.5, creatinine 0.89. Yesterday he was positive 1.5 L. His weight today is 68.5. To command he is able to cough up to expectorations and then he is fatigued. The phlegm is thick and light green to green colored. No blood. 02/19/2025. Overall patient tells me he is doing better. Says he is breathing 50% at his normal. He has no rest shortness of breath and his dyspnea on exertion around the room was a little bit better. He is expectorating more phlegm. White blood cell count 8.8, creatinine 0.8. Currently patient is on 2 L nasal cannula saturations 94%. Yesterday he was positive 730 mL and cumulative is positive 2.7 L since admission. His weight today is 69.5. 02/20/2025: Patient is slowly improving. He tells me his breathing 65% back to his normal. He remains with cough and phlegm. His dyspnea on exertion is a little bit better. I asked him to expectorate and he produced 4 large yellow - green expectorations which were thin and easily expectorated. He is afebrile. White blood cell count 9.9, creatinine 0.81. Yesterday was positive 400 mL, cumulative he is positive 3.4 L since admission. Weight 68.5. 02/21/2025. Patient tells me he is a little bit better but states he is still only 65% back to his baseline. His dyspnea on exertion is a little bit better. 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 He was able to expectorate phlegm this morning. He is afebrile. White blood cell count 8.6, creatinine 0.79, yesterday he was 1.1 L positive cumulative he is positive 4.2 L. His weight is 68.1 increased from 65.7. His BNP is 78. His chest x-ray shows unchanged left lower lobe consolidation with increased interstitial markings on the right. DATA: 02/15/25: CTA chest PE protocol History: 64 years Male with . worsening pneumonia? more O2 requirement . Comparison: January 18, 2025 Findings: PULMONARY ARTERIES: No pulmonary embolus. VISUALIZED THORACIC INLET: Normal. MEDIASTINUM: Aorta/coronary arteries: Mild atheromatous disease. Heart/other: The heart is not enlarged. Lymph nodes: No mediastinal or hilar adenopathy. Calcified lymph nodes are noted. LUNGS: Pneumonia in the left lower lobe. Tree-in-bud appearance is seen in the left upper lobe and lingula suggestive of post infection changes. No pulmonary nodules or masses. No pneumothorax. Trace of left pleural effusion is seen. VISUALIZED UPPER ABDOMEN: 3.7 x 3.8 cm cyst is seen in the right kidney upper pole. Otherwise, the visualized upper abdomen is normal. MUSCULOSKELETAL: Soft tissues: The superficial soft tissues are normal. Bones: Age appropriate degenerative changes of the spine. Healing fracture in the right fourth and fifth ribs is noted. Compression fracture involving the superior endplate of T12 and L1 is noted. MRI evaluation advised. Spinal stimulator is seen in the midthoracic area. IMPRESSION: 1. Left lower lobe pneumonia which has increased compared to previous study. 2. No pulmonary embolism. 3. Tree-in-bud appearance in the left upper lobe and lingula suggestive of post infection changes. 4. Trace of left pleural effusion. 5. Compression fracture in the superior endplate of T12 and L1 most likely acute. MRI evaluation advised. 6. Healing rib fractures in the right hemithorax. Addendum: There is been no interval change in a 1.8 x 0.9 cm perihilar nodule with lobular margins in the right lower lobe which remains concerning for primary bronchogenic carcinoma and given location. Recommend further evaluation with endo bronchoscopic ultrasound-guided biopsy. Review of Systems Constitutional: Constitutional: Reports no additional constitutional complaints Eyes: Eyes: Reports no additional eye complaints ENT: Reports system reviewed and no additional complaints, except as documented Cardiovascular: Cardiovascular: Reports no additional cardiovascular complaints Respiratory: Respiratory: Reports no additional respiratory complaints Gastrointestinal: Gastrointestinal: Reports no additional gastrointestinal complaints Musculoskeletal: Musculoskeletal: Reports no additional musculoskeletal complaints Neurologic: Reports system reviewed and no additional complaints, except as documented Psychiatric: Psychiatric: Reports no additional psychiatric complaints Endocrine: Endocrine: Reports no additional endocrine complaints Hematologic/Lymphatic: Hematologic/Lymphatic: Reports no additional hematologic/lymphatic complaints Allergic/Immunologic: Allergic/Immunologic: Reports no additional allergic/immunologic complaints Exam Const: General: cooperative, healthy appearing and comfortable Orientation/consciousness: oriented to person, oriented to place and oriented to time HENMT: Head: normal to inspection Ears: hearing grossly normal bilaterally Eyes: General: appearance normal, both eyes and all related structures Neck: Neck: normal visual inspection Chest: Chest palpation & inspection: normal inspection of the chest Resp: Effort & Inspection: normal respiratory effort and able to speak in complete sentences Auscultation: no crackles, no rales, no rhonchi, no wheezes and diminished lung sounds Other: Decreased breath sounds at the bases, coarse rhonchi that improved with expectoration Cardio: Jugular venous distension: no JVD GI: Inspection: normal to inspection Skin: General skin exam: normal color Neuro: General: oriented to person, oriented to place and oriented to time Extrem: General: normal to inspection Psych: Appearance: grossly normal Objective Data Vital Signs Vital Signs: Vital Signs - 24 hr 02/20/25 14:00 02/20/25 14:24 02/20/25 14:36 Temperature 36.1 C L Pulse Rate 74 75 77 Respiratory Rate 16 18 18 Blood Pressure 137/89 Pulse Oximetry 96 Oxygen Delivery Oxygen Flow Rate 02/20/25 19:54 02/20/25 19:55 02/20/25 20:00 Temperature Pulse Rate 79 Respiratory Rate 22 H Blood Pressure Pulse Oximetry 94 97 Oxygen Delivery Nasal Cannula Nasal Cannula Oxygen Flow Rate 2 2 02/20/25 20:03 02/20/25 20:31 02/21/25 01:53 Temperature 36.0 C L Pulse Rate 82 79 74 Respiratory Rate 22 H 18 16 Blood Pressure 117/73 Pulse Oximetry 97 Oxygen Delivery Oxygen Flow Rate 02/21/25 02:01 02/21/25 05:13 02/21/25 08:07 Temperature 36.1 C L Pulse Rate 75 58 L 73 Respiratory Rate 18 12 16 Blood Pressure 140/61 Pulse Oximetry 95 Oxygen Delivery Oxygen Flow Rate Intake/Output Intake/Output: Intake & Output 02/18/25 02/19/25 02/20/25 02/21/25 23:59 23:59 23:59 23:59 Intake Total 5042 673 8765 772 Output Total 733 958 7294 450 Balance 503 659 2541 322 Meds/Results Medications: Active Medications Generic Name Dose Route Start Last Admin Trade Name Freq PRN Reason Stop Dose Admin Acetaminophen 650 mg 02/18/25 22:00 02/21/25 04:53 Acetaminophen 325 Mg Tablet PO Not Given Q6H DANE Albuterol/Ipratropium 3 ml 02/16/25 20:00 02/21/25 01:53 Ipratropium 0.5 Mg/Albuterol Sulfate 2.5 Mg Ampul.Neb 3 Ml INHALATION 3 ml Q6HRT DANE Administration Aspirin 81 mg 02/16/25 09:00 02/21/25 09:02 Aspirin 81 Mg Enteric Tablet PO 81 mg DAILY DANE Administration Bupropion HCl 300 mg 02/16/25 09:00 02/21/25 09:03 Bupropion Hcl Xl (24 Hr) 150 Mg Tabcr PO 300 mg DAILY DANE Administration Cyclobenzaprine HCl 10 mg 02/18/25 22:00 02/21/25 05:34 Cyclobenzaprine Hcl 10 Mg Tablet PO 10 mg Q8H DANE Administration Enoxaparin Sodium 40 mg 02/16/25 09:00 02/21/25 09:03 Enoxaparin 40 Mg/0.4 Ml Syringe SUB-Q 40 mg DAILY DANE Administration Ferrous Sulfate 325 mg 02/16/25 09:00 02/21/25 09:03 Ferrous Sulfate [address] BY MOUTH 325 mg DAILY DANE Administration Guaifenesin 1,200 mg 02/16/25 21:00 02/21/25 09:03 Guaifenesin 12 Hr 600 Mg Tabcr PO 1,200 mg Q12HR DANE Administration Levofloxacin/Dextrose 750 mg in 150 mls @ 100 mls/hr 02/16/25 15:00 02/20/25 15:17 Levaquin 750 Mg/D5w 150 Ml IVPB 100 mls/hr Q24H DANE Administration Meropenem 1 gm in 100 mls @ 200 mls/hr 02/16/25 19:00 02/21/25 02:30 IVPB Infused Q8H DANE Infusion Levetiracetam 250 mg/ 750 mg 02/16/25 09:00 02/21/25 09:02 Levetiracetam 500 mg PO 750 mg Q12HR DANE Administration Lidocaine 1 patch 02/16/25 09:00 02/21/25 09:03 Lidocaine 5% Patch TOPICAL Not Given DAILY DANE Lorazepam 0.5 mg 02/15/25 18:35 02/17/25 16:14 Lorazepam (*Crx) 0.5 Mg Tablet PO 0.5 mg TID PRN Administration anxiety Midodrine 2.5 mg 02/16/25 09:00 02/21/25 09:03 Midodrine Hcl 2.5 Mg Tablet PO 2.5 mg BID DANE Administration Oxycodone HCl 10 mg 02/17/25 13:00 02/21/25 05:34 Oxycodone (*Crx) 5 Mg/5 Ml Oral Soln Ir PO 10 mg Q4HR DANE Administration Pantoprazole Sodium 40 mg 02/16/25 09:00 02/21/25 09:02 Pantoprazole 40 Mg Tablet PO 40 mg Q12HR DANE Administration Paroxetine HCl 40 mg 02/16/25 09:00 02/21/25 09:03 Paroxetine 20 Mg Tablet PO 40 mg DAILY DANE Administration Pregabalin 150 mg 02/16/25 09:00 02/21/25 09:03 Pregabalin (*Crx) 75 Mg Capsule PO 150 mg DAILY DANE Administration Trazodone HCl 100 mg 02/15/25 21:00 02/20/25 21:00 Trazodone Hcl 50 Mg Tablet PO 100 mg QHS DANE Administration Vitamin B Complex 1 cap 02/16/25 09:00 02/21/25 09:02 Vitamin B Complex Capsule PO 1 cap DAILY DANE Administration Radiology Results: ITS Impressions Chest CTA 02/15/25 15:12 IMPRESSION: 1. Left lower lobe pneumonia which has increased compared to previous study. 2. No pulmonary embolism. 3. Tree-in-bud appearance in the left upper lobe and lingula suggestive of post infection changes. 4. Trace of left pleural effusion. 5. Compression fracture in the superior endplate of T12 and L1 most likely acute. MRI evaluation advised. 6. Healing rib fractures in the right hemithorax. ADDENDUM: 02/16/25 1252 ADDENDUM: There is been no interval change in a 1.8 x 0.9 cm perihilar nodule with lobular margins in the right lower lobe which remains concerning for primary bronchogenic carcinoma and given location. Recommend further evaluation with endo bronchoscopic ultrasound-guided biopsy. Chest X-Ray 02/21/25 06:35 Impression: Probable mild diffuse pulmonary edema versus possibly pneumonia, worsened from prior exam. Correlate clinically. Possible underlying chronic interstitial disease, especially the left lung. Labs Labs: Laboratory Results - last 24 hr 02/17/25 02/21/25 05:20 05:44 WBC 8.6 RBC 4.59 L Hgb 11.4 L Hct 37.7 L MCV 82.1 MCH 24.8 L MCHC 30.2 L RDW 16.8 H Plt Count 327 MPV 9.6 Sodium 140 Potassium 3.8 Chloride 102 Carbon Dioxide 33 H Anion Gap 5 BUN 12 Creatinine 0.79 Estim Creat Clear Calc 78 Estimated GFR > 60 Glucose 83 Calcium 8.5 NT-Pro-B Natriuret Pep 78 Mycoplasma pneumon IgM 7
[2025-02-21] MEDS: FUROSEMIDE INJ 40 MG/4 ML VIAL 20 MG IV PUSH (09:39)
[2025-02-21] MEDS: ACETAMINOPHEN 325 MG TABLET 650 MG PO ×3 (09:40→23:23)
--- NOTE | 2025-02-21 12:40 | PM.IMPN ---
Progress Note: A&P Assessment and Plan (1) Sepsis: Qualifiers: Sepsis type: sepsis due to unspecified organism Sepsis acute organ dysfunction status: without acute organ dysfunction Qualified Code(s): A41.9 - Sepsis, unspecified organism Code(s): A41.9 - Sepsis, unspecified organism Status: Acute Assessment and Plan: - meets SIRS criteria: HR, RR. No leukocytosis. History of hypotension on midodrine, hemodynamically stable. pneumonia procalcitonin neg - received IVf -continue Meropenem and levaquin. follow sputum culture result, resp PCR. - suspected source: Pneumonia - blood cultures drawn on 02/15 were negative. - sputum culture grew yeast (2) Pneumonia: Qualifiers: Laterality: unspecified laterality Lung location: unspecified part of lung Pneumonia type: due to unspecified organism Qualified Code(s): J18.9 - Pneumonia, unspecified organism Code(s): J18.9 - Pneumonia, unspecified organism Status: Acute Assessment and Plan: - CXR: Persistent bilateral airspace disease, left greater than right, consistent with pneumonia. - Chest CTA: 1. Left lower lobe pneumonia which has increased compared to previous study. 2. No pulmonary embolism. 3. Tree-in-bud appearance in the left upper lobe and lingula suggestive of post infection changes. 4. Trace of left pleural effusion. 5. Compression fracture in the superior endplate of T12 and L1 most likely acute. MRI evaluation advised. 6. 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 - previously positive for pneumococcal via urine in November of 2024, repeat - supportive care - chest physiotherapy - continue supplemental O2 to maintain sat greater than 92%, weakness tolerated -continue Meropenem and Levaquin. -pulmonary team on board -Respiratory panel positive for Rhino/Enterovirus. -Cornet and CPT TID. (3) COPD (chronic obstructive pulmonary disease): Qualifiers: COPD type: unspecified COPD Qualified Code(s): J44.9 - Chronic obstructive pulmonary disease, unspecified Code(s): J44.9 - Chronic obstructive pulmonary disease, unspecified Status: Acute Assessment and Plan: - DuSamuelbs odalys - continue home medications - no current physical exam findings were subjective symptoms suggestive of COPD exacerbation, will hold on steroid course - Cornet and CPT TID. - Pulmonology following, appreciate recommendations. (4) Squamous cell carcinoma: Status: Acute Assessment and Plan: - hx of squamous cell carcinoma of the lung, s/p lobectomy - last follow-up with oncologist, Nathalie MANDEL, on 01/18/25. Still needs outpatient PET scan due to possibility of recurrence in the right lower lobe, however unable to do imaging due to active infection previously. (5) Iron deficiency anemia: Qualifiers: Iron deficiency anemia type: unspecified iron deficiency Qualified Code(s): D50.9 - Iron deficiency anemia, unspecified Code(s): D50.9 - Iron deficiency anemia, unspecified Status: Acute Assessment and Plan: - Hgb 13.0, previously 12.3 on 02/09 - Hx: HONG - transfuse if <7 -02/21 Hgb 11.4. - monitor (6) Hypotension: Qualifiers: Hypotension type: unspecified hypotension type Qualified Code(s): I95.9 - Hypotension, unspecified Code(s): I95.9 - Hypotension, unspecified Status: Acute Assessment and Plan: - chronic, currently 105/81 - continue home medications: Midodrine - monitor (7) Seizure: Code(s): R56.9 - Unspecified convulsions Status: Acute Assessment and Plan: - chronic, absent type - continue home medications: Keppra (8) Moderate malnutrition: Code(s): E44.0 - Moderate protein-calorie malnutrition Status: Acute Assessment and Plan: Dietitian onboard Plan Diet: Heart healthy GI Prophylaxis: Not currently indicated DVT Prophylaxis: Lovenox SQ Lines/Tubes: Peripheral IV Code Status: full code Subjective Date/time seen: 02/21/25 12:40 Interval history: Patient sitting up in bed. Patient denies chest pain, palpitations, headache, dizziness, nausea, or vomiting. Patient reports coughing up green sputum and dyspnea on exertion. Review of Systems Review of Systems: All systems reviewed & are unremarkable except as noted in HPI and below Exam Const: General: comfortable and no acute distress Resp: Effort & Inspection: normal respiratory effort Auscultation: diminished lung sounds Cardio: Rate: regular rate Rhythm: regular rhythm GI: GI Palp: Yes Soft to palpation Auscultation: normal bowel sounds Neuro: Speech: normal speech Extrem: General: no pedal edema Psych: Mental Status: mental status grossly normal Affect: normal affect Objective Data Vital Signs Vital Signs: Vital Signs - 24 hr 02/20/25 14:00 02/20/25 14:24 02/20/25 14:36 Temperature 96.9 F L Pulse Rate 74 75 77 Respiratory Rate 16 18 18 Blood Pressure 137/89 Pulse Oximetry 96 Oxygen Delivery Oxygen Flow Rate 02/20/25 19:54 02/20/25 19:55 02/20/25 20:00 Temperature Pulse Rate 79 Respiratory Rate 22 H Blood Pressure Pulse Oximetry 94 97 Oxygen Delivery Nasal Cannula Nasal Cannula Oxygen Flow Rate 2 2 02/20/25 20:03 02/20/25 20:31 02/21/25 01:53 Temperature 96.8 F L Pulse Rate 82 79 74 Respiratory Rate 22 H 18 16 Blood Pressure 117/73 Pulse Oximetry 97 Oxygen Delivery Oxygen Flow Rate 02/21/25 02:01 02/21/25 05:13 02/21/25 08:00 Temperature 97.0 F L Pulse Rate 75 58 L Respiratory Rate 18 12 Blood Pressure 140/61 Pulse Oximetry 95 97 Oxygen Delivery Nasal Cannula Oxygen Flow Rate 2 02/21/25 08:07 Temperature Pulse Rate 73 Respiratory Rate 16 Blood Pressure Pulse Oximetry Oxygen Delivery Oxygen Flow Rate Intake/Output Intake/Output: Intake & Output 02/18/25 02/19/25 02/20/25 02/21/25 23:59 23:59 23:59 23:59 Intake Total 4943 689 6993 772 Output Total 974 294 4261 1725 Balance 082 060 0636 953 Meds/Results Medications: Active Medications Generic Name Dose Route Start Last Admin Trade Name Freq PRN Reason Stop Dose Admin Acetaminophen 650 mg 02/18/25 22:00 02/21/25 09:40 Acetaminophen 325 Mg Tablet PO 650 mg Q6H ODALYS Administration Albuterol/Ipratropium 3 ml 02/16/25 20:00 02/21/25 01:53 Ipratropium 0.5 Mg/Albuterol Sulfate 2.5 Mg Ampul.Neb 3 Ml INHALATION 3 ml Q6HRT ODALYS Administration Aspirin 81 mg 02/16/25 09:00 02/21/25 09:02 Aspirin 81 Mg Enteric Tablet PO 81 mg DAILY ODALYS Administration Bupropion HCl 300 mg 02/16/25 09:00 02/21/25 09:03 Bupropion Hcl Xl (24 Hr) 150 Mg Tabcr PO 300 mg DAILY ODALYS Administration Cyclobenzaprine HCl 10 mg 02/18/25 22:00 02/21/25 05:34 Cyclobenzaprine Hcl 10 Mg Tablet PO 10 mg Q8H ODALYS Administration Enoxaparin Sodium 40 mg 02/16/25 09:00 02/21/25 09:03 Enoxaparin 40 Mg/0.4 Ml Syringe SUB-Q 40 mg DAILY ODALYS Administration Ferrous Sulfate 325 mg 02/16/25 09:00 02/21/25 09:03 Ferrous Sulfate [address] BY MOUTH 325 mg DAILY [facility] Administration Furosemide 20 mg 02/21/25 09:30 02/21/25 09:39 Furosemide Inj 40 Mg/4 Ml Vial IV PUSH 20 mg DAILY ODALYS Administration Guaifenesin 1,200 mg 02/16/25 21:00 02/21/25 09:03 Guaifenesin 12 Hr 600 Mg Tabcr PO 1,200 mg Q12HR ODALYS Administration Meropenem 1 gm in 100 mls @ 200 mls/hr 02/16/25 19:00 02/21/25 12:29 IVPB 200 mls/hr Q8H [facility] Administration Levetiracetam 250 mg/ 750 mg 02/16/25 09:00 02/21/25 09:02 Levetiracetam 500 mg PO 750 mg Q12HR ODALYS Administration Levofloxacin 750 mg 02/21/25 15:00 Levofloxacin 750 Mg Tablet PO DAILY@1500 [facility] Lidocaine 1 patch 02/16/25 09:00 02/21/25 09:03 Lidocaine 5% Patch TOPICAL Not Given DAILY [facility] Lorazepam 0.5 mg 02/15/25 18:35 02/17/25 16:14 Lorazepam (*Crx) 0.5 Mg Tablet PO 0.5 mg TID PRN Administration anxiety Midodrine 2.5 mg 02/16/25 09:00 02/21/25 09:03 Midodrine Hcl 2.5 Mg Tablet PO 2.5 mg BID ODALYS Administration Oxycodone HCl 10 mg 02/17/25 13:00 02/21/25 10:23 Oxycodone (*Crx) 5 Mg/5 Ml Oral Soln Ir PO 10 mg Q4HR ODALYS Administration Pantoprazole Sodium 40 mg 02/16/25 09:00 02/21/25 09:02 Pantoprazole 40 Mg Tablet PO 40 mg Q12HR ODALYS Administration Paroxetine HCl 40 mg 02/16/25 09:00 02/21/25 09:03 Paroxetine 20 Mg Tablet PO 40 mg DAILY ODALYS Administration Pregabalin 150 mg 02/16/25 09:00 02/21/25 09:03 Pregabalin (*Crx) 75 Mg Capsule PO 150 mg DAILY ODALYS Administration Trazodone HCl 100 mg 02/15/25 21:00 02/20/25 21:00 Trazodone Hcl 50 Mg Tablet PO 100 mg QHS ODALYS Administration Vitamin B Complex 1 cap 02/16/25 09:00 02/21/25 09:02 Vitamin B Complex Capsule PO 1 cap DAILY ODALYS Administration Radiology Results: ITS Impressions Chest CTA 02/15/25 15:12 IMPRESSION: 1. Left lower lobe pneumonia which has increased compared to previous study. 2. No pulmonary embolism. 3. Tree-in-bud appearance in the left upper lobe and lingula suggestive of post infection changes. 4. Trace of left pleural effusion. 5. Compression fracture in the superior endplate of T12 and L1 most likely acute. MRI evaluation advised. 6. Healing rib fractures in the right hemithorax. ADDENDUM: 02/16/25 1252 ADDENDUM: There is been no interval change in a 1.8 x 0.9 cm perihilar nodule with lobular margins in the right lower lobe which remains concerning for primary bronchogenic carcinoma and given location. Recommend further evaluation with endo bronchoscopic ultrasound-guided biopsy. Chest X-Ray 02/21/25 06:35 Impression: Probable mild diffuse pulmonary edema versus possibly pneumonia, worsened from prior exam. Correlate clinically. Possible underlying chronic interstitial disease, especially the left lung. Labs Labs: Laboratory Results - last 24 hr 02/17/25 02/21/25 05:20 05:44 WBC 8.6 RBC 4.59 L Hgb 11.4 L Hct 37.7 L MCV 82.1 MCH 24.8 L MCHC 30.2 L RDW 16.8 H Plt Count 327 MPV 9.6 Sodium 140 Potassium 3.8 Chloride 102 Carbon Dioxide 33 H Anion Gap 5 BUN 12 Creatinine 0.79 Estim Creat Clear Calc 78 Estimated GFR > 60 Glucose 83 Calcium 8.5 NT-Pro-B Natriuret Pep 78 Mycoplasma pneumon IgM 7 Quality VTE Prophylaxis VTE prophylaxis: pharmacologic ordered
[2025-02-21 14:58] LABS: Adenovirus DNA Not Detected (Not Detected); Chlamydophila pneumoniae Not Detected (Not Detected); Coronavirus 229E Not Detected (Not Detected); Coronavirus HKU1 Not Detected (Not Detected); Coronavirus NL63 Not Detected (Not Detected); Coronavirus OC43 Not Detected (Not Detected); Human Metapneumovirus Not Detected (Not Detected); Human Parainfluenza Virus 1 Not Detected (Not Detected); Human Parainfluenza Virus 2 Not Detected (Not Detected); Human Parainfluenza Virus 3 Not Detected (Not Detected); Human Parainfluenza Virus 4 Not Detected (Not Detected); Human RSV B Not Detected (Not Detected); Influenza A Not Detected (Not Detected); Influenza B Not Detected (Not Detected); Mycoplasma pneumoniae Not Detected (Not Detected); Rhinovirus/Enterovirus Detected (Not Detected)
[2025-02-21] MEDS: levoFLOXacin 750 MG TABLET PO (15:27)
[2025-02-21] MEDS: traZODone HCL 50 MG TABLET 100 MG PO (23:23)
[2025-02-22] VITALS (13 sets, daily range): BP systolic 105–113; BP diastolic 68–69; PULSE 90–110; RESP 20–22; TEMP 36.5–36.6; O2SAT 87–97
[2025-02-22] MEDS: oxyCODONE (*CRX) 5 MG/5 ML ORAL SOLN IR 10 MG PO ×4 (01:10→14:09)
[2025-02-22] MEDS: IPRATROPIUM 0.5 MG/ALBUTEROL SULFATE 2.5 MG AMPUL.NEB 3 ML INHALATION ×2 (02:54→08:28)
[2025-02-22] MEDS: MEROPENEM 1 GM/NS 100 ML 1 GM/100 ML BAG IVPB (03:56)
[2025-02-22] MEDS: ACETAMINOPHEN 325 MG TABLET 650 MG PO ×2 (04:01→09:21)
[2025-02-22] MEDS: CYCLOBENZAPRINE HCL 10 MG TABLET PO ×2 (05:52→14:10)
[2025-02-22 06:18] LABS: Hematocrit 38.1 % (42.0-52.0); Hemoglobin 11.5 g/dL (14.0-18.0); Mean Corpuscular HGB Conc 30.2 g/dl (32-36); Mean Corpuscular Hemoglobin 24.6 pg (26-34); Mean Corpuscular Volume 81.6 fl (80-100); Mean Platelet Volume 9.1 fl (7.4-10.4); Platelet Count Result 358 k/mm3 (150-375); Red Blood Count 4.67 M/mm3 (4.6-6.20); Red Cell Distribution Width 16.6 % (11.5-14.5)
[2025-02-22 06:23] LABS: Alanine Aminotransferase 14 U/L (6-50); Albumin Level 3.4 g/dL (3.5-5.1); Alkaline Phosphatase 86 U/L (38-126); Anion Gap 5 mmol/L (4-12); Aspartate Amino Transferase 25 U/L (17-59); Bilirubin,Total 0.3 mg/dL (0.2-1.3); Blood Urea Nitrogen 16 mg/dL (9-20); Carbon Dioxide 35 mmol/L (22-30); Chloride 99 mmol/L (98-107); Estimated CRCL calculation 66 ml/min; Estimated Glomerular Filt Rate > 60; Glucose 89 mg/dL (65-110); Magnesium 2.2 mg/dL (1.6-2.3); Potassium 3.9 mmol/L (3.4-5.0); Sodium 139 mmol/L (137-145)
--- NOTE | 2025-02-22 09:14 | P.PNPL_ITS ---
Progress Note: A&P Assessment and Plan (1) Pneumonia: Qualifiers: Laterality: unspecified laterality Lung location: unspecified part of lung Pneumonia type: due to unspecified organism Qualified Code(s): J18.9 - Pneumonia, unspecified organism Code(s): J18.9 - Pneumonia, unspecified organism Status: Acute Assessment and Plan: Patient has a history of recurrent left-sided pneumonia. 11/14/2024 through 12/04/2024 he had influenza, human metapneumovirus and a urine antigen positive for pneumococcus with CT scan on 11/24/2024 with nodular and tree-in-bud infiltrates and higher left lung, left lower lobe consolidation.. From 01/18/2025 through 01/25/2025 he had pneumonia with CT scan 01/18/25 with persistent but improved left lower lobe consolidation with tree-in-bud infiltrates in the left upper lobe from 11/24/24 and was treated with cefepime and azithromycin in the hospital and discharged on Levaquin. On 02/09 patient was prescribed cefdinir and azithromycin as an outpatient. CT scan 02/15/2025 demonstrates tree-in-bud infiltrates left upper lobe and lingula no change from 01/18/2025 and consolidation left lower lobe increased from 01/18/2025 and similar appearance from 11/24/2024. MRSA nasal swab negative. COVID, influenza, RSV RT T PCR negative. 02/16/25: Plan: Current infiltrates have air bronchograms so I doubt there is not complete collapse from a proximal mucus plug or endobronchial lesion. Will treat patient for pneumonia and will change to meropenem and Levaquin. I will send urine for Legionella, urine for pneumococcal antigen, mycoplasma IgM and respiratory pathogen panel. I will treat aggressively to help him expectorate with guaifenesin 1200 mg p.o. b.i.d., Mucomyst 200 q.6, Vest therapy, Cornet flutter valve. I will check a procalcitonin on 02/17/2025. 02/17/25: Overall the patient tells me his breathing is the same, he has a small cough with minimal phlegm and no hemoptysis. Says he has dyspnea on exertion but no rest shortness of breath He is afebrile. currently is on 2 L nasal cannula saturations 94%. White blood cell count 8.4, creatinine 0.94. Procalcitonin 0.4. Plan: continue meropenem and Levaquin, both day 2. I was able to send a sputum for Gram stain and culture this morning. I talked to the nurse about collecting the respiratory pathogen panel. Urine Legionella, urine pneumococcal and mycoplasma IgM pending. Continue to help him expectorate with guaifenesin 1200 mg p.o. b.i.d., Mucomyst 200 q.6, Vest therapy, Cornet flutter valve. 02/18/2025: Overall the patient tells me he is breathing worse at rest and with activity. He is afebrile. Currently is on 2 L nasal cannula saturations 95%. White blood cell count 11.5, creatinine 0.89. Yesterday he was positive 1.5 L. His weight today is 68.5. To command he is able to cough up to expe ctorations and then he is fatigued. The phlegm is thick and light green to green colored. No blood. Plan: continue meropenem and Levaquin, both day 3. sputum for Gram stain and culture pending. Respiratory pathogen panel, Urine Legionella, urine pneumococcal and mycoplasma IgM pending. Continue to help him expectorate with DuoNebs q.6, guaifenesin 1200 mg p.o. b.i.d., Mucomyst 200 q.6, Vest therapy, Cornet flutter valve. 02/19/2025. Overall patient tells me he is doing better. Says he is breathing 50% at his normal. He has no rest shortness of breath and his dyspnea on exertion around the room was a little bit better. He is expectorating more phlegm. White blood cell count 8.8, creatinine 0.8. Currently patient is on 2 L nasal cannula saturations 94%. Yesterday he was positive 730 mL and cumulative is positive 2.7 L since admission. His weight today is 69.5. Plan: Slow improvement on meropenem and Levaquin, both day 4. sputum for Gram stain and culture pending. Respiratory pathogen panel, Urine Legionella, urine pneumococcal and mycoplasma IgM pending. Continue to help him expectorate with DuoNebs q.6, guaifenesin 1200 mg p.o. b.i.d., Mucomyst 200 q.6, Vest therapy, Cornet flutter valve. 02/20/2025: Patient is slowly improving. He tells me his breathing 65% back to his normal. He remains with cough and phlegm. His dyspnea on exertion is a little bit better. I asked him to expectorate and he produced 4 large yellow - green expectorations which were thin and easily expectorated. He is afebrile. White blood cell count 9.9, creatinine 0.81. Yesterday was positive 400 mL, cumulative he is positive 3.4 L since admission. Weight 68.5. Plan: Slow improvement on meropenem and Levaquin, both day 5. sputum for Gram stain and culture pending. Respiratory pathogen panel pending, Urine Legionella Negative, urine pneumococcal negative and mycoplasma IgM pending. Continue to help him expectorate with DuoNebs q.6, guaifenesin 1200 mg p.o. b.i.d., Mucomyst 200 q.6 completed 72 hours of therapy will discontinue Mucomyst today., Vest therapy, Cornet flutter valve. I will get a CXR on 02/21/2025. 02/21/2025. Patient tells me he is a little bit better but states he is still only 65% back to his baseline. His dyspnea on exertion is a little bit better. 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 He was able to expectorate phlegm this morning. He is afebrile. White blood cell count 8.6, creatinine 0.79, yesterday he was 1.1 L positive cumulative he is positive 4.2 L. His weight is 68.1 increased from 65.7. His BNP is 78. His chest x-ray shows unchanged left lower lobe consolidation with increased interstitial markings on the right. Plan: Slow improvement on meropenem and Levaquin, both day 6. sputum for culture With normal estefany and yeast which I will have identified. Respiratory pathogen panel pending, Urine Legionella Negative, urine pneumococcal negative and mycoplasma IgM 7, normal. Continue to help him expectorate with DuoNebs q.6, guaifenesin 1200 mg p.o. b.i.d., Vest therapy, Cornet flutter valve. chest x-ray with increased interstitial markings on the right his weight is increased and he is 4.2 L positive I will give him 20 mg IV Lasix q.day. 02/22/25: Patient is improved today. Yesterday he walked the halls and did better than he had been doing at home. Tells me his 75% back to his normal regarding his breathing. His cough is 85% back to normal. His phlegm is clear and thinner with no blood. Currently on 2 L nasal cannula saturation 90%. White blood cell count 9.0, creatinine 0.94. received Lasix 20 IV yesterday and diuresed 1.09 L. His weight today is 67.9. His respiratory pathogen panel returned positive for rhino virus. I suspect this rhinovirus infection explains the patient's clinical deterioration. I explained to him that he is not no longer infectious, there is no specific treatment other than supportive measures. From a pulmonary perspective patient is ready to be discharged on these respiratory medicines. Levaquin 750 mg p.o. q.day x3 days. Trelegy 100 at 1 puff q.day rescue albuterol 2 puffs q.4 hours p.r.n. shortness of breath or wheezing. Rescue albuterol nebulizer 1.25 mg q.4 hours p.r.n. shortness of breath or wheezing Guaifenesin 1200 mg p.o. b.i.d. coronary flutter valve Q 2-4 hours while awake. oxygen at rest and with activity per formal home O2 assessment which I have ordered. Oxygen 2 L at night Follow-up in the Pulmonary Clinic on his previously scheduled appointment 04/04/2025 at 2:30 a.m.. I will talk to the patient in approximately 3 weeks and I have instructed the patient to call the clinic for any issues. Discussed with Dr. Jaramillo, will sign off, call with questions. (2) COPD (chronic obstructive pulmonary disease): Qualifiers: COPD type: unspecified COPD Qualified Code(s): J44.9 - Chronic obstructive pulmonary disease, unspecified Code(s): J44.9 - Chronic obstructive pulmonary disease, unspecified Status: Acute Assessment and Plan: GOLD grade 2 group E COPD Patient with a 50 pack year tobacco use, quit 11/13/2024. Alpha 1 anti trypsin genotype CM. Alpha 1 anti trypsin level 236, normal. 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 He retired 4-5 years ago. PFTs on 01/20/2021 with a moderately severe obstructive abnormality with an FEV1 of 1.71 L, 50% predicted, ratio 52%, normal lung volumes, moderately decreased DLCO that normalized when corrected for alveolar volume. CT scan of the chest with emphysema on 02/07/2007, 06/27/2021, 02/06/2022, 07/10/2024, and most recently on 11/13/2024 with moderate apical predominant paraseptal emphysema and mild apical predominant centrilobular emphysema. Discharged from hospital on 12/04/2024 on 2 L at rest and 2 L with activity, 2 L at night per home O2 assessment and overnight oximetry. Eosinophil on 11/13/2024 is 33/uL. Echocardiogram 11/21/2024 with LVEF 55-60%, grade 1 diastolic dysfunction, normal right ventricular size and function. Mildly enlarged right atrium. Tricuspid peak gradient 42. 02/16/25: Currently patient is in no respiratory distress. He is on his baseline 2 L nasal cannula saturations 97%. He has no wheezing. Plan: I do not believe the patient is having a COPD exacerbation and given his infectious concerns I will not place him on systemic or inhaled steroids at this time. I will place him on DuoNebs q.6 hours. Goal saturation 90-94%, adjust oxygen accordingly. 02/17/25: he has no wheezes today. Plan: Continue DuoNebs q.6, goal saturation 90-94%. He is on his baseline 2 L with saturations 94%. 02/18/25: no wheezes today. Continue DuoNebs q.6, he is at his baseline 2 L nasal cannula with adequate saturations. 02/19/25: no wheezes today. On his baseline level of oxygen. Continue current management. 02/20/2025: No wheezes. Continue current management. 02/21/25: no wheezes. Continue DuoNebs q.6 and 2 L nasal cannula oxygen. 02/22/25: patient has improved. Will discharge patient on as previous COPD regimen of trelegy 100 and rescue albuterol. (3) Cancer of right lung: Qualifiers: Lung location: unspecified part of lung Qualified Code(s): C34.91 - Malignant neoplasm of unspecified part of right bronchus or lung Code(s): C34.91 - Malignant neoplasm of unspecified part of right bronchus or lung Status: Acute Assessment and Plan: Squamous cell lung cancer status post right middle lobectomy on 01/23/2020 with negative lymph nodes, tumor 2.8 cm, T1c N0 M0 stage IA. He is followed by Dr. Zelaya and had a CT scan on 07/10/2024 with emphysema and no evidence of malignancy with recommendation to repeat in [address] scan on 01/18/2025 showed an enlarging right middle lobe nodule from 1.4 by 0.9 cm on 11/27/2024 to 1.9 x 1.0 cm on 01/18/2025. I discussed this result with his oncologist Dr. Quinten mccurdy and the plan was to obtain a PET scan as an outpatient to determine the best biopsy site. The PET scan was scheduled for PET scan but he could not be completed because the patient was too sick. 02/15/25: CT scan of the chest with no change in his right lower lobe nodule at 1.8 x 0.9 cm. 02/16/25: plan for outpatient PET scan to assess extent of disease and guide biopsy. 02/22/2025: Patient was scheduled to have a PET scan as an outpatient but then got sick and was admitted to the hospital. The PET scan is no longer listed in the [facility] orders and I have told him to call the oncology office today so that the PET scan can be reordered. He said his would call today. Subjective Date/time seen: 02/22/25 09:14 Interval history: 02/16/2025: This is a new pulmonary consult for recurrent pneumonia. 64-year-old with a history of COPD On 2 L nasal cannula 24-7, squamous cell lung cancer status post right middle lobectomy on 01/23/2020 with negative lymph nodes, tumor 2.8 cm, T1c N0 M0 stage IA. Patient has a history of recurrent left-sided pneumonia. 11/14/2024 through 12/04/2024 he had influenza, human metapneumovirus and a urine antigen positive for pneumococcus. From 01/18/2025 through 01/25/2025 he had persistent left lower lobe consolidation with tree-in-bud infiltrates in the left upper lobe with some improvement and was treated with cefepime and azithromycin in the hospital and discharged on Levaquin. CT scan on 01 18 2025 showed an enlarging right middle lobe nodule from 1.4 by 0.9 cm on 11/27/2024 to 1.9 x 1.0 cm on 01/18/2025. I discussed this result with his oncologist Dr. Quinten mccurdy and the plan was to obtain a PET scan as an outpatient to determine the best biopsy site. The PET scan was scheduled for PET scan but he could not be completed because the patient was too sick. The patient was seen on 02/01/2025 by his PCP who said he was improving. The patient concurs that he was improving. On On 02/02/2025 he started develop worsening shortness of breath at rest, dyspnea on exertion, wheezing. One week ago he had a hot flash but did not measure his temperature. last 2 days he has had increased phlegm production which is rosenbaum and brown. 02/15/2025: Patient presented to the emergency room with worsening shortness of breath. Blood pressure was 125/71, pulse set 97, respiratory rate 29, temper ature 97.9?. Initially was on 4 L nasal cannula with saturations 97%. he had decreased breath sounds in the left base. He had no wheezing. White blood cell count was 7.9, eosinophils 7.7, creatinine 0.84, D-dimer 0.78, BNP 220, ABG on 2 L 7.46/38/62. CT angiogram of the Chest showed no pulmonary embolism, left lower lobe consolidation with air bronchograms throughout, patchy infiltrates left upper lobe and lingula, unchanged right lower lobe nodule at 1.9 x 1.0 cm. Patient was treated with cefepime, vancomycin and doxycycline. 02/16/2025: currently the patient tells me he feels the same as yesterday. He has a cough but no phlegm. No hemoptysis. Currently is on 2 L nasal cannula with saturations 95%. He is afebrile with a white blood cell count of 6.2. Creatinine 0.81. 02/17/25: Overall the patient tells me his breathing is the same, he has a small cough with minimal phlegm and no hemoptysis. Says he has dyspnea on exertion but no rest shortness of breath He is afebrile. currently is on 2 L nasal cannula saturations 94%. White blood cell count 8.4, creatinine 0.94. Procalcitonin 0.4. 02/18/2025: Overall the patient tells me he is breathing worse at rest and with activity. He is afebrile. Currently is on 2 L nasal cannula saturations 95%. White blood cell count 11.5, creatinine 0.89. Yesterday he was positive 1.5 L. His weight today is 68.5. To command he is able to cough up to expectorations and then he is fatigued. The phlegm is thick and light green to green colored. No blood. 02/19/2025. Overall patient tells me he is doing better. Says he is breathing 50% at his normal. He has no rest shortness of breath and his dyspnea on exertion around the room was a little bit better. He is expectorating more phlegm. White blood cell count 8.8, creatinine 0.8. Currently patient is on 2 L nasal cannula saturations 94%. Yesterday he was positive 730 mL and cumulative is positive 2.7 L since admission. His weight today is 69.5. 02/20/2025: Patient is slowly improving. He tells me his breathing 65% back to his normal. He remains with cough and phlegm. His dyspnea on exertion is a little bit better. I asked him to expectorate and he produced 4 large yellow - green expectorations which were thin and easily expectorated. He is afebrile. White blood cell count 9.9, creatinine 0.81. Yesterday was positive 400 mL, cumulative he is positive 3.4 L since admission. Weight 68.5. 02/21/2025. Patient tells me he is a little bit better but states he is still only 65% back to his baseline. His dyspnea on exertion is a little bit better. 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 He was able to expectorate phlegm this morning. He is afebrile. White blood cell count 8.6, creatinine 0.79, yesterday he was 1.1 L positive cumulative he is positive 4.2 L. His weight is 68.1 increased from 65.7. His BNP is 78. His chest x-ray shows unchanged left lower lobe consolidation with increased interstitial markings on the right. 02/22/25: Patient is improved today. Yesterday he walked the halls and did better than he had been doing at home. Tells me his 75% back to his normal regarding his breathing. His cough is 85% back to normal. His phlegm is clear and thinner with no blood. Currently on 2 L nasal cannula saturation 90%. White blood cell count 9.0, creatinine 0.94. received Lasix 20 IV yesterday and diuresed 1.09 L. His weight today is 67.9. His respiratory pathogen panel returned positive for rhino virus. DATA: 02/15/25: CTA chest PE protocol History: 64 years Male with . worsening pneumonia? more O2 requirement . Comparison: January 18, 2025 Findings: PULMONARY ARTERIES: No pulmonary embolus. VISUALIZED THORACIC INLET: Normal. MEDIASTINUM: Aorta/coronary arteries: Mild atheromatous disease. Heart/other: The heart is not enlarged. Lymph nodes: No mediastinal or hilar adenopathy. Calcified lymph nodes are noted. LUNGS: Pneumonia in the left lower lobe. Tree-in-bud appearance is seen in the left upper lobe and lingula suggestive of post infection changes. No pulmonary nodules or masses. No pneumothorax. Trace of left pleural effusion is seen. VISUALIZED UPPER ABDOMEN: 3.7 x 3.8 cm cyst is seen in the right kidney upper pole. Otherwise, the visualized upper abdomen is normal. MUSCULOSKELETAL: Soft tissues: The superficial soft tissues are normal. Bones: Age appropriate degenerative changes of the spine. Healing fracture in the right fourth and fifth ribs is noted. Compression fracture involving the superior endplate of T12 and L1 is noted. MRI evaluation advised. Spinal stimulator is seen in the midthoracic area. IMPRESSION: 1. Left lower lobe pneumonia which has increased compared to previous study. 2. No pulmonary embolism. 3. Tree-in-bud appearance in the left upper lobe and lingula suggestive of post infection changes. 4. Trace of left pleural effusion. 5. Compression fracture in the superior endplate of T12 and L1 most likely acute. MRI evaluation advised. 6. Healing rib fractures in the right hemithorax. Addendum: There is been no interval change in a 1.8 x 0.9 cm perihilar nodule with lobular margins in the right lower lobe which remains concerning for primary bronchogenic carcinoma and given location. Recommend further evaluation with endo bronchoscopic ultrasound-guided biopsy. Review of Systems Constitutional: Constitutional: Reports no additional constitutional complaints Eyes: Eyes: Reports no additional eye complaints ENT: Reports system reviewed and no additional complaints, except as documented Cardiovascular: Cardiovascular: Reports no additional cardiovascular complaints Respiratory: Respiratory: Reports no additional respiratory complaints Gastrointestinal: Gastrointestinal: Reports no additional gastrointestinal complaints Musculoskeletal: Musculoskeletal: Reports no additional musculoskeletal complaints Neurologic: Reports system reviewed and no additional complaints, except as documented Psychiatric: Psychiatric: Reports no additional psychiatric complaints Endocrine: Endocrine: Reports no additional endocrine complaints Hematologic/Lymphatic: Hematologic/Lymphatic: Reports no additional hematologic/lymphatic complaints Allergic/Immunologic: Allergic/Immunologic: Reports no additional allergic/immunologic complaints Exam Const: General: cooperative, healthy appearing and comfortable Orientation/consciousness: oriented to person, oriented to place and oriented to time HENMT: Head: normal to inspection Ears: hearing grossly normal bilaterally Eyes: General: appearance normal, both eyes and all related structures Neck: Neck: normal visual inspection Chest: Chest palpation & inspection: normal inspection of the chest Resp: Effort & Inspection: normal respiratory effort and able to speak in complete sentences Auscultation: no crackles, no rales, no rhonchi, no wheezes and diminished lung sounds Other: Decreased breath sounds at the bases, coarse rhonchi bilaterally that improved with expectoration Cardio: Jugular venous distension: no JVD GI: Inspection: normal to inspection Skin: General skin exam: normal color Neuro: General: oriented to person, oriented to place and oriented to time Extrem: General: normal to inspection Psych: Appearance: grossly normal Objective Data Vital Signs Vital Signs: Vital Signs - 24 hr 02/21/25 13:58 02/21/25 15:06 02/21/25 15:06 Temperature 36.6 C Pulse Rate 78 76 Respiratory Rate 20 20 Blood Pressure 105/81 Pulse Oximetry 97 96 Oxygen Delivery Nasal Cannula Oxygen Flow Rate 2 02/21/25 15:15 02/21/25 19:57 02/21/25 20:07 Temperature Pulse Rate 74 96 92 Respiratory Rate 20 18 20 Blood Pressure Pulse Oximetry Oxygen Delivery Oxygen Flow Rate 02/21/25 20:32 02/22/25 02:55 02/22/25 03:05 Temperature 36.5 C Pulse Rate 103 H 97 90 Respiratory Rate 20 20 20 Blood Pressure 124/73 Pulse Oximetry 91 Oxygen Delivery Oxygen Flow Rate 02/22/25 06:00 02/22/25 08:28 02/22/25 08:28 Temperature 36.5 C Pulse Rate 109 H 94 Respiratory Rate 22 H 20 Blood Pressure 113/68 Pulse Oximetry 96 96 Oxygen Delivery Nasal Cannula Oxygen Flow Rate 2 02/22/25 08:39 Temperature Pulse Rate 95 Respiratory Rate 20 Blood Pressure Pulse Oximetry Oxygen Delivery Oxygen Flow Rate Intake/Output Intake/Output: Intake & Output 02/19/25 02/20/25 02/21/25 02/22/25 23:59 23:59 23:59 23:59 Intake Total 990 2170 1326 150 Output Total 425 1000 2425 475 Balance 565 1170 -1099 -325 Meds/Results Medications: Active Medications Generic Name Dose Route Start Last Admin Trade Name Freq PRN Reason Stop Dose Admin Acetaminophen 650 mg 02/18/25 22:00 02/22/25 04:01 Acetaminophen 325 Mg Tablet PO 650 mg Q6H DANE Administration Albuterol/Ipratropium 3 ml 02/16/25 20:00 02/22/25 08:28 Ipratropium 0.5 Mg/Albuterol Sulfate 2.5 Mg Ampul.Neb 3 Ml INHALATION 3 ml Q6HRT DANE Administration Aspirin 81 mg 02/16/25 09:00 02/21/25 09:02 Aspirin 81 Mg Enteric Tablet PO 81 mg DAILY DANE Administration Bupropion HCl 300 mg 02/16/25 09:00 02/21/25 09:03 Bupropion Hcl Xl (24 Hr) 150 Mg Tabcr PO 300 mg DAILY DANE Administration Cyclobenzaprine HCl 10 mg 02/18/25 22:00 02/22/25 05:52 Cyclobenzaprine Hcl 10 Mg Tablet PO 10 mg Q8H DANE Administration Enoxaparin Sodium 40 mg 02/16/25 09:00 02/21/25 09:03 Enoxaparin 40 Mg/0.4 Ml Syringe SUB-Q 40 mg DAILY DANE Administration Ferrous Sulfate 325 mg 02/16/25 09:00 02/21/25 09:03 Ferrous Sulfate [address] BY MOUTH 325 mg DAILY DANE Administration Furosemide 20 mg 02/21/25 09:30 02/21/25 09:39 Furosemide Inj 40 Mg/4 Ml Vial IV PUSH 20 mg DAILY DANE Administration Guaifenesin 1,200 mg 02/16/25 21:00 02/21/25 20:37 Guaifenesin 12 Hr 600 Mg Tabcr PO 1,200 mg Q12HR DANE Administration Levetiracetam 250 mg/ 750 mg 02/16/25 09:00 02/21/25 20:37 Levetiracetam 500 mg PO 750 mg Q12HR DANE Administration Levofloxacin 750 mg 02/21/25 15:00 02/21/25 15:27 Levofloxacin 750 Mg Tablet PO 02/25/25 23:59 750 mg DAILY@1500 DANE Administration Lidocaine 1 patch 02/16/25 09:00 02/21/25 09:03 Lidocaine 5% Patch TOPICAL Not Given DAILY DANE Lorazepam 0.5 mg 02/15/25 18:35 02/17/25 16:14 Lorazepam (*Crx) 0.5 Mg Tablet PO 0.5 mg TID PRN Administration anxiety Midodrine 2.5 mg 02/16/25 09:00 02/21/25 17:00 Midodrine Hcl 2.5 Mg Tablet PO 2.5 mg BID DANE Administration Oxycodone HCl 10 mg 02/17/25 13:00 02/22/25 05:52 Oxycodone (*Crx) 5 Mg/5 Ml Oral Soln Ir PO 10 mg Q4HR DANE Administration Pantoprazole Sodium 40 mg 02/16/25 09:00 02/21/25 20:38 Pantoprazole 40 Mg Tablet PO 40 mg Q12HR DANE Administration Paroxetine HCl 40 mg 02/16/25 09:00 02/21/25 09:03 Paroxetine 20 Mg Tablet PO 40 mg DAILY DANE Administration Pregabalin 150 mg 02/16/25 09:00 02/21/25 09:03 Pregabalin (*Crx) 75 Mg Capsule PO 150 mg DAILY DANE Administration Trazodone HCl 100 mg 02/15/25 21:00 02/21/25 23:23 Trazodone Hcl 50 Mg Tablet PO 100 mg QHS DANE Administration Vitamin B Complex 1 cap 02/16/25 09:00 02/21/25 09:02 Vitamin B Complex Capsule PO 1 cap DAILY DANE Administration Radiology Results: ITS Impressions Chest CTA 02/15/25 15:12 IMPRESSION: 1. Left lower lobe pneumonia which has increased compared to previous study. 2. No pulmonary embolism. 3. Tree-in-bud appearance in the left upper lobe and lingula suggestive of post infection changes. 4. Trace of left pleural effusion. 5. Compression fracture in the superior endplate of T12 and L1 most likely acute. MRI evaluation advised. 6. Healing rib fractures in the right hemithorax. ADDENDUM: 02/16/25 1252 ADDENDUM: There is been no interval change in a 1.8 x 0.9 cm perihilar nodule with lobular margins in the right lower lobe which remains concerning for primary bronchogenic carcinoma and given location. Recommend further evaluation with endo bronchoscopic ultrasound-guided biopsy. Chest X-Ray 02/21/25 06:35 Impression: Probable mild diffuse pulmonary edema versus possibly pneumonia, worsened from prior exam. Correlate clinically. Possible underlying chronic interstitial disease, especially the left lung. Labs Labs: Laboratory Results - last 24 hr 02/17/25 02/22/25 20:21 05:23 WBC 9.0 RBC 4.67 Hgb 11.5 L Hct 38.1 L MCV 81.6 MCH 24.6 L MCHC 30.2 L RDW 16.6 H Plt Count 358 MPV 9.1 Sodium 139 Potassium 3.9 Chloride 99 Carbon Dioxide 35 H Anion Gap 5 BUN 16 Creatinine 0.94 Estim Creat Clear Calc 66 Estimated GFR > 60 Glucose 89 Calcium 9.0 Magnesium 2.2 Total Bilirubin 0.3 AST 25 ALT 14 Alkaline Phosphatase 86 Total Protein 7.0 Albumin 3.4 L Nasal RSV Type A (PCR) Not detected Nasal RSV Type B (PCR) Not detected Chlamy pneumoniae PCR Not detected Adenovirus DNA Not detected Human Bocavirus (SEBASTIAN) Not detected Coronavirus Type OC43 Not detected Coronavirus Type HKU1 Not detected Coronavirus Type 229E Not detected Coronavirus Type NL63 Not detected Human Metapneumovir PCR Not detected Influenza A (PCR) Not detected Influenza A (H1) RNA Not detected Influenza A (H3) PCR Not detected M. pneumoniae DNA Not detected Parainfluenza PCR Not detected Parainfluenza 2 (PCR) Not detected Parainfluenza 3 RNA (PCR) Not detected Parainfluenza 4 (PCR) Not detected Rhino/Enterovirus (SEBASTIAN) Detected A Influenza Type B (PCR) Not detected Misc Test Comment see note
[2025-02-22] MEDS: PARoxetine 20 MG TABLET 40 MG PO (09:21)
[2025-02-22] MEDS: ENOXAPARIN 40 MG/0.4 ML SYRINGE SUB-Q (09:21)
[2025-02-22] MEDS: VITAMIN B COMPLEX CAPSULE 1 CAP PO (09:21)
[2025-02-22] MEDS: FUROSEMIDE INJ 40 MG/4 ML VIAL 20 MG IV PUSH (09:21)
[2025-02-22] MEDS: ASPIRIN 81 MG ENTERIC TABLET PO (09:22)
[2025-02-22] MEDS: PREGABALIN (*CRX) 75 MG CAPSULE 150 MG PO (09:22)
[2025-02-22] MEDS: guaiFENesin 12 HR 600 MG TABCR 1200 MG PO (09:22)
[2025-02-22] MEDS: buPROPion HCL XL (24 HR) 150 MG TABCR 300 MG PO (09:23)
[2025-02-22] MEDS: FERROUS SULFATE 325 MG TABLET DR BY MOUTH (09:23)
[2025-02-22] MEDS: PANTOPRAZOLE 40 MG TABLET PO (09:23)
[2025-02-22] MEDS: MIDODRINE HCL 2.5 MG TABLET PO (09:23)
[2025-02-22] MEDS: levETIRAcetam Tablet 250 MG, levETIRAcetam Tablet 500 MG 750 MG PO (09:23)
--- NOTE | 2025-02-22 09:55 | HOMEO2EVAL ---
Evaluation was performed at [facility] Home Oxygen Evaluation RC: Home Oxygen (O2) Evaluation Start: 02/22/25 08:57 Freq: ONCE Status: Active Protocol: RPE Activity Type Activity Date Activity User E-sign Co-sign Detail Recorded Client Recorded Date Recorded By Document 02/22/25 09:25 DJO [id number] 02/22/25 09:55 DJO Document 02/22/25 09:30 DJO [id number] 02/22/25 09:55 DJO Document 02/22/25 09:35 DJO [id number] 02/22/25 09:55 DJO Document 02/22/25 09:40 DJO [id number] 02/22/25 09:55 DJO Document 02/22/25 09:45 DJO [id number] 02/22/25 09:55 DJO Document 02/22/25 09:54 DJO [id number] 02/22/25 09:55 DJO 02/22/25 02/22/25 02/22/25 09:25 09:30 09:35 Home O2 Evaluation [Oxygen] -Test Phase Resting Resting Resting -Oxygen Delivery Room Air Nasal Cannula Nasal Cannula -Oxygen Flow Rate (L/min) 1 2 [Pulse Oximetry] -Pulse Oximetry (90-100 %) 87 L 88 L 92 [Pulse Rate] -Pulse Rate (60-100 beats/min) 99 98 96 [Evaluation] -Activity Tolerance [Charges] -Evaluation Charges O2 Evaluation by Pulmonary 02/22/25 02/22/25 02/22/25 09:40 09:45 09:54 Home O2 Evaluation [Oxygen] -Test Phase Exercise Exercise Resting -Oxygen Delivery Nasal Cannula Nasal Cannula Nasal Cannula -Oxygen Flow Rate (L/min) 2 3 2 [Pulse Oximetry] -Pulse Oximetry (90-100 %) 88 L 92 [Pulse Rate] -Pulse Rate (60-100 beats/min) 110 H 91 99 [Evaluation] -Activity Tolerance Fair [Charges] -Evaluation Charges
--- NOTE | 2025-02-22 09:56 | PCRCNOTE ---
HOME OXYGEN EVAL COMPETE, NO CHANGES FROM HOME SETTING. 2L REST, 3L ACTIVITY. HAS O2 WITH IV & RESP CARE. TO BRING IN TANK FOR DISCHARGE
--- NOTE | 2025-02-22 12:23 | P.DS_ITS ---
DS: Admitting Diagnosis Discharge Date 02/22/2025 Admitting Diagnosis Increased shortness of breath DS: Discharge Diagnosis Discharge Diagnosis (1) Sepsis: Qualifiers: Sepsis type: sepsis due to unspecified organism Sepsis acute organ dysfunction status: without acute organ dysfunction Qualified Code(s): A41.9 - Sepsis, unspecified organism Code(s): A41.9 - Sepsis, unspecified organism Status: Acute (2) Pneumonia: Qualifiers: Laterality: unspecified laterality Lung location: unspecified part of lung Pneumonia type: due to unspecified organism Qualified Code(s): J18.9 - Pneumonia, unspecified organism Code(s): J18.9 - Pneumonia, unspecified organism Status: Acute (3) COPD (chronic obstructive pulmonary disease): Qualifiers: COPD type: unspecified COPD Qualified Code(s): J44.9 - Chronic obstructive pulmonary disease, unspecified Code(s): J44.9 - Chronic obstructive pulmonary disease, unspecified Status: Acute (4) Rhinovirus: Code(s): B34.8 - Other viral infections of unspecified site Status: Acute (5) Iron deficiency anemia: Qualifiers: Iron deficiency anemia type: unspecified iron deficiency Qualified Code(s): D50.9 - Iron deficiency anemia, unspecified Code(s): D50.9 - Iron deficiency anemia, unspecified Status: Acute (6) Oxygen dependent: Code(s): Z99.81 - Dependence on supplemental oxygen Status: Acute DS: Summary Hospital Course Hospital Course: Initial VS at presentation: 97.9? F, HR 97, RR 29, 125/71, and 97% on 4L NC. ED workup showed: No leukocytosis, hemoglobin 13.0, D-dimer elevated, ABG showed a pH of 7.456/O2 61.7/O2 saturation 92.9% on 2L, no significant electrolyte derangements, renal function within normal limits, BNP 220, nasal MRSA negative. CXR showed persistent bilateral airspace disease, left greater than right, consistent with pneumonia. Chest CTA showed a left lower lobe pneumonia which has increased compared to previous study, no PE, tree-in-bud appearance in the left upper lobe and lingula suggestive of post infection changes, trace left pleural effusion, compression fracture in the superior endplate of T12 and L1 most likely acute, healing rib fracture in the right hemothorax. Pulmonology consulted. Patient received IV Meropenem and Levaquin. Cornet and CPT TID. Guaifenesin 1200 mg p.o. b.i.d., Mucomyst 200 q.6. Positive for rhin ovirus/ Enterovirus. Chest X-Ray 02/21/25 06:35 Impression: Probable mild diffuse pulmonary edema versus possibly pneumonia, worsened from prior exam. Correlate clinically. Possible underlying chronic interstitial disease, especially the left lung. Home walking oxygen study completed. Wear oxygen at 2 liters at rest, 2 liters at night, and 3 liters with activity. Blood cultures no growth. Sputum culture yeast isolated. Patient follows with Pulmonology outpatient. Status at Discharge Functional status at discharge: uses cane/walker Overall status at discharge: patient is progressing back to baseline Time Spent with Patient Time attestation: Total time spent providing and/or coordinating discharge services: Exam Const: General: comfortable and no acute distress Resp: Effort & Inspection: normal respiratory effort Auscultation: rhonchi and diminished lung sounds Cardio: Rate: regular rate Rhythm: regular rhythm GI: GI Palp: Yes Soft to palpation Auscultation: normal bowel sounds Extrem: General: no pedal edema Psych: Mental Status: mental status grossly normal Affect: normal affect DS: Data Data Completed and Pending Labs on day of discharge: Labs from last 24 hours 02/22/25 02/17/25 05:23 20:21 WBC 9.0 RBC 4.67 Hgb 11.5 L Hct 38.1 L MCV 81.6 MCH 24.6 L MCHC 30.2 L RDW 16.6 H Plt Count 358 MPV 9.1 Sodium 139 Potassium 3.9 Chloride 99 Carbon Dioxide 35 H Anion Gap 5 BUN 16 Creatinine 0.94 Estim Creat Clear Calc 66 Estimated GFR > 60 Glucose 89 Calcium 9.0 Magnesium 2.2 Total Bilirubin 0.3 AST 25 ALT 14 Alkaline Phosphatase 86 Total Protein 7.0 Albumin 3.4 L Nasal RSV Type A (PCR) Not detected Nasal RSV Type B (PCR) Not detected Chlamy pneumoniae PCR Not detected Adenovirus DNA Not detected Human Bocavirus (SEBASTIAN) Not detected Coronavirus Type OC43 Not detected Coronavirus Type HKU1 Not detected Coronavirus Type 229E Not detected Coronavirus Type NL63 Not detected Human Metapneumovir PCR Not detected Influenza A (PCR) Not detected Influenza A (H1) RNA Not detected Influenza A (H3) PCR Not detected M. pneumoniae DNA Not detected Parainfluenza PCR Not detected Parainfluenza 2 (PCR) Not detected Parainfluenza 3 RNA (PCR) Not detected Parainfluenza 4 (PCR) Not detected Rhino/Enterovirus (SEBASTIAN) Detected A Influenza Type B (PCR) Not detected Misc Test Comment see note Discharge Plan Discharge Attending physician on discharge: Fabrizio Jaramillo Consulting providers: Fernando Mosley Discharging Clinician: Christin Billingsley Anticipated Discharge Date/Time: 02/22/25 13:00 Patient Disposition: Home Activity: february shower Diet: heart healthy Discharge Instructions: * Per Care Coordination. Patient is current with [facility] for RN, PT, OT eval and treat. #[phone]. They will contact patient to resume services at [place]. * Wear oxygen at 2 liters at rest, 2 liters at night, and 3 liters with activity. * Take inhalers as prescribed. * Coronary flutter valve q 2-4 hours while awake. * Dr. Mosley will call and check on you in 3 weeks. If you have any issues prior to his call reach out to his office. Reach out if worsening shortness of breath not improved with oxygen, rest, and breathing treatments. * DO NOT take Azithromycin while taking Levofloxacin. Discuss with primary when you make appointment for one week whether you need to restart the Azithromycin. Thank you for entrusting [facility] with your healthcare! Patient Instructions: Antibiotic Form, Heart Healthy Diet ([place]), Using Oxygen at Home ([place]), COPD (Chronic Obstructive Pulmonary Disease) ([place]), Pneumonia ([place]) Patient Language: Yakut Stand Alone Forms: General Discharge Information Follow-up/Referrals: Vickey Hernandez MD [Primary Care Provider] - 1 Week Fernando Mosley MD [Physician] - 04/04/25 2:30 pm Discharge Medications: New guaifenesin [Mucus Relief ER] 600 mg Tablet Extended Release 12hr 1,200 mg PO Q12HR Qty: 28 0RF levofloxacin 750 mg tablet 750 mg PO DAILY Qty: 2 0RF Rx Instructions: Next dose at 3 pm on 02/23/25. albuterol sulfate [Ventolin HFA] 90 mcg/actuation HFA aerosol inhaler 2 puff inhalation Q4H PRN (Reason: shortness of breath or wheezing) Qty: 8.5 0RF Continued lidocaine 5 % adhesive patch,medicated 1 patch TOPICAL DAILY omeprazole 20 mg capsule,delayed release(DR/EC) 20 mg PO BID Stages Men's Multi-Vitamin 200 mcg-300 unit-20 mcg tablet 1 tablet PO DAILY pregabalin [Lyrica] 150 mg capsule 150 mg PO DAILY ferrous sulfate 325 mg (65 mg iron) tablet 325 mg PO DAILY oxycodone 10 mg/0.5 mL syringe 10 mg PO Q4H tizanidine 4 mg capsule 4 mg PO TID PRN (Reason: muscle spasticity) Qty: 30 0RF vitamin B complex Tablet 1 tablet PO DAILY aspirin [Adult Low Dose Aspirin] 81 mg tablet,delayed release (DR/EC) 81 mg PO DAILY midodrine 2.5 mg tablet 2.5 mg PO BID Qty: 180 1RF Rx Instructions: do not give last dose of day after 6PM or within 4 hrs of bedtime trazodone 50 mg tablet 100 mg PO QHS lorazepam 0.5 mg tablet 0.5 mg PO TID PRN (Reason: anxiety) paroxetine HCl 40 mg tablet See Rx Instructions .ROUTE .COMPLEX Qty: 90 1RF Dose Instruction: TAKE 1 TABLET BY MOUTH EVERY DAY Rx Instructions: TAKE 1 TABLET BY MOUTH EVERY DAY cyanocobalamin (vitamin B-12) 1,000 mcg/mL solution See Rx Instructions .ROUTE .COMPLEX Qty: 3 1RF Dose Instruction: INJECT 1ML INTO MUSCLE ONCE MONTHLY Rx Instructions: INJECT 1ML INTO MUSCLE ONCE MONTHLY BD Luer-Collin Syringe 3 mL 25 gauge x 1 syringe See Rx Instructions .ROUTE .COMPLEX Qty: 3 3RF Dose Instruction: FOR FOR ONCE MONTHLY IM INJECTIONS OF VITAMIIN B12 DIRECTED Rx Instructions: FOR ONCE MONTHLY IM INJECTIONS OF VITAMIIN B12 DIRECTED Trelegy Ellipta 100-62.5-25 mcg blister with device 1 inh inhalation DAILY Qty: 60 3RF bupropion HCl 300 mg tablet extended release 24 hr See Rx Instructions .ROUTE .COMPLEX Qty: 90 0RF Dose Instruction: TAKE 1 TABLET BY MOUTH EVERY MORNING Rx Instructions: TAKE 1 TABLET BY MOUTH EVERY MORNING levetiracetam 500 mg tablet extended release 24 hr 1,500 mg PO QHS Qty: 300 2RF Changed albuterol sulfate 1.25 mg/3 mL solution for nebulization 1.25 mg inhalation Q4H PRN (Reason: Shortness Of Breath Or Wheezing) Qty: 75 0RF Discontinued cefdinir 300 mg capsule 300 mg PO Q12H 4 Days Qty: 8 0RF azithromycin 500 mg tablet 500 mg PO WEEKLY Qty: 9 0RF Date of admission: 02/15/25 15:53 Primary Care Provider: Vickey Hernandez Admitting Provider: Jonah Farley Attending physician on admission: Cindy Miller Condition: Improved Hospitalist MIPS Heart Failure (Exclusion) Patient has history of Heart Transplant or Left Ventricular Assistive Device?: No IF YES, STOP HERE Heart Failure (Qualifier) Patient has current or prior documentation of LVEF less than or equal to 40%, or mod/servere depressed LVSF?: No IF NO, STOP HERE
[2025-02-22] MEDS: levoFLOXacin 750 MG TABLET PO (14:09)
== END 2025-02-22 15:30 | disposition home or self-care (01) | DRG 871 ==
LOC: ANHED 16:02 → ANH3MEDSUR 16:26
PROVIDERS: Internal Medicine; Internal Medicine Pulmonary Disease; Student in an Organized Health Care Education/Training Program; Admitting Provider Internal Medicine; Emergency Provider Emergency Medicine; PCP Internal Medicine; Visit Provider Nurse Practitioner Family
DX: A41.9 Sepsis, unspecified organism (principal); J12.89 Other viral pneumonia; J96.01 Acute respiratory failure with hypoxia; E51.9 Thiamine deficiency, unspecified; E53.0 Riboflavin deficiency; J44.0 Chronic obstructive pulmonary disease with (acute) lower respiratory infection; E44.0 Moderate protein-calorie malnutrition; I95.89 Other hypotension; D50.9 Iron deficiency anemia, unspecified; B97.89 Other viral agents as the cause of diseases classified elsewhere; E55.9 Vitamin D deficiency, unspecified; E53.8 Deficiency of other specified B group vitamins; K21.9 Gastro-esophageal reflux disease without esophagitis; M19.90 Unspecified osteoarthritis, unspecified site; M54.9 Dorsalgia, unspecified; G89.29 Other chronic pain; G40.A09 Absence epileptic syndrome, not intractable, without status epilepticus; R25.1 Tremor, unspecified; Z20.822 Contact with and (suspected) exposure to COVID-19; Z79.899 Other long term (current) drug therapy; Z79.82 Long term (current) use of aspirin; Z98.84 Bariatric surgery status; Z87.891 Personal history of nicotine dependence; Z85.118 Personal history of other malignant neoplasm of bronchus and lung; Z68.22 Body mass index [BMI] 22.0-22.9, adult
CPT/HCPCS: 36415; 36600; 71045; 71275; 80048; 80053; 82805; 82948; 83605; 83735; 83880; 84145; 84443; 85018; 85025; 85027; 85380; 86738; 87040; 87070; 87205; 87449; 87633; 87637; 87641; 87899; 93005; 94618; 94640; 94667; 94668; 94669; 97110; 97116; 97161; 99291; A9270; J0692; J1171; J1650; J1938; J1956; J2185; J3370; J7120; Q9967